=== PATIENT | male | born 1980 | race Hispanic/Latino ===

== ENCOUNTER 2019-04-21 11:50 | Inpatient (IN) | payer BC | END 2019-04-23 13:09 | disposition home or self-care (01) | LOC: EDH 11:50 → EDHIP 15:10 → 2AH 17:38 ==

== ENCOUNTER 2019-05-27 16:35 | Emergency (ER) | payer BC ==
[~2019-05-27 16:35] MED LIST: AMLO5TAB9 PO; ATOR40TA69 PO; Aspirin PO; HYDR25TA PO; LISI-613 PO; LOSA50TA64 PO; METH4TAB3 PO; Prasugrel Hcl PO
[2019-05-27] MEDS ORDERED: FAMOTIDINE 20MG TAB 20 MG TAB ONE (16:56)
[2019-05-27] MEDS ORDERED: DEXAMETHASONE SOD PHOSPHATE 10MG/ML 1ML VIAL ONE (16:56)
[2019-05-27] MEDS ORDERED: DIPHENHYDRAMINE HCL 25 MG CAPSULE ONE (16:57)
== END 2019-05-27 18:00 | disposition home or self-care (01) ==
LOC: EDH 16:35
DX: T78.3XXA Angioneurotic edema, initial encounter (principal); L40.9 Psoriasis, unspecified; I10 Essential (primary) hypertension; Z72.0 Tobacco use
CPT/HCPCS: 96372; 99284; J1100; Q0163

== ENCOUNTER 2022-12-14 09:15 | Emergency (ER) | payer BC ==
[~2022-12-14] VITALS: Ht 182.9 cm; Wt 129.3 kg
[~2022-12-14 09:15] MED LIST changes: +AMLO-257 PO; -AMLO5TAB9 PO; -LISI-613 PO; +LISI20TA24 PO
[2022-12-14 09:16] VITALS: BP 167/103
[2022-12-14 09:42] LABS: AMPHET/METH SCREEN,URINE NEGATIVE (NEGATIVE); BARBITURATE SCREEN, URINE NEGATIVE (NEGATIVE); BENZODIAZEPINES SCREEN,URINE NEGATIVE (NEGATIVE); CANNABINOID SCREEN,URINE NEGATIVE (NEGATIVE); COCAINE SCREEN,URINE POSITIVE (NEGATIVE); OPIATE SCREEN,URINE NEGATIVE (NEGATIVE); PHENCYCLIDINE SCREEN,URINE NEGATIVE (NEGATIVE)
[2022-12-14 09:52] LABS: BASOPHILS % (AUTO) 0.9 % (0.0-5.0); EOSINOPHILS % (AUTO) 0.8 % (0.0-8.0); HEMATOCRIT 46.2 % (42-54); LYMPHOCYTES % (AUTO) 20.3 % (21.0-51.0); MEAN CORPUSCULAR HEMOGLOBIN 32.3 pg (27.0-33.0); MEAN CORPUSCULAR HGB CONC 35.9 g/dL (32.0-36.0); MEAN CORPUSCULAR VOLUME 89.9 fL (79-99); MONOCYTES % (AUTO) 9.2 % (3.0-13.0); NEUTROPHILS % (AUTO) 68.5 % (40.0-77.0); PLATELET COUNT (AUTO) 271 K/uL (130-400); RED BLOOD CELL COUNT(AUTO) 5.14 MIL/uL (4.50-6.20); RED CELL DISTRIBUTION WIDTH 11.9 % (11.0-15.5); WHITE BLOOD COUNT (AUTO) 9.5 K/uL (4.8-10.8)
[2022-12-14] MEDS ORDERED: LORAZEPAM 2 MG/ML 1 ML VIAL IVP STA (09:54)
[2022-12-14] MEDS ORDERED: ASPIRIN 81MG CHEW TAB PO STA (09:59)
[2022-12-14 10:08] LABS: CREATININE 0.7 mg/dL (0.5-1.5); POTASSIUM 3.2 mmol/L (3.5-5.1)
[2022-12-14 10:14] LABS: ALBUMIN 3.1 g/dL (3.5-5.0); TOTAL PROTEIN, SERUM 8.1 g/dL (6.0-8.3)
[2022-12-14] MEDS ORDERED: TAMS-1 PO (12:02)
[2022-12-14] MEDS ORDERED: KETO10TA2 PO (12:02)
== END 2022-12-14 12:23 | disposition home or self-care (01) ==
LOC: EDH 09:15
DX: N20.0 Calculus of kidney (principal); F14.10 Cocaine abuse, uncomplicated; Z98.890 Other specified postprocedural states; Z79.899 Other long term (current) drug therapy; Z79.82 Long term (current) use of aspirin
CPT/HCPCS: 99284; 74176; 96374; 71045; 82550; 84484; 80053; 80305; 85025; 36415; 93005; J2060

== ENCOUNTER 2025-01-04 21:53 | Inpatient (IN) | payer SELFPAY ==
[~2025-01-04] VITALS: Ht 180.3 cm; Wt 112.8 kg
[~2025-01-04 21:53] MED LIST changes: +KETO10TA2 PO; +TAMS-1 PO
--- NOTE | 2025-01-04 23:11 | ERN ---
ED Note History of Present Illness Stated Complaint: CHEST PAIN,MULTIPLE COMPLAINTS Chief Complaint: Weakness Time Seen by MD: 22:23 Dictation: This is a 44-year-old morbidly obese male who presented to the emergency room complaints of severe body aches nausea vomitings diarrhea and extreme weakness to the point of him unable to even get up. Most of the symptoms have been going on since last which is about 6 days He normally drinks 5 days out of 7 days heavily and he stated that he has not been able to drink alcohol or eat anything. He has just been trying to drink only water During my evaluation he was extremely sick appearing and unable to even pick himself up to move His vital signs upon entry to the ER temperature 98 pulse 118 respirations 17 blood pressure 113/82 with a pulse oximetry of 99% on room air however patient did spike a temp of 101 at 12:37 a.m. Known history of coronary artery disease status post stents, heavy alcohol abuse also cocaine abuse Allergies: Coded Allergies: No Known Drug Allergies (Unverified Allergy, Unknown, 12/18/15) Home Meds Active Scripts Tamsulosin HCl (Flomax) 0.4 Mg Cap.er.24h, 0.4 MG PO DAILY for 7 Days, #7 CAPSULE.DR Prov:HEBER LEI MD 12/14/22 Ketorolac Tromethamine (Ketorolac Tromethamine) 10 Mg Tablet, 10 MG PO TID PRN for PAIN for 7 Days, #21 TAB Prov:HEBER LEI MD 12/14/22 Methylprednisolone (Medrol) 4 Mg Tab.ds.pk, 4 MG PO AD for 5 Days, MG 0 Refills Prov:JUAN MCBRIDE 04/23/19 Hydrochlorothiazide (Hydrochlorothiazide) 25 Mg Tablet, 25 MG PO DAILY for 30 Days, #30 TAB 0 Refills Prov:JUAN MCBRIDE 04/23/19 Losartan Potassium (Losartan Potassium) 50 Mg Tablet, 50 MG PO DAILY for 30 Days, #30 TAB 0 Refills Prov:JUAN MCBRIDE 04/23/19 Amlodipine Besylate (Amlodipine Besylate) 5 Mg Tablet, 5 MG PO DAILY for 30 Days, #30 TAB 0 Refills Prov:JUAN MCBRIDEPCDU 04/23/19 [Prasugrel Hcl] 10 MG TABLET No Conflict Check, 10 MG PO DAILY, #30 3 Refills Prov:KARMA LUNDBERG MD 12/20/15 Lisinopril (Lisinopril) 20 Mg Tablet, 20 MG PO DAILY, #30 TAB 3 Refills Prov:KARMA LUNDBERG MD 12/20/15 [Aspirin] 325 MG TABLET No Conflict Check, 325 MG PO DAILY, #30 3 Refills Prov:KARMA LUNDBERG MD 12/20/15 Atorvastatin Calcium (LIPITOR) 40 Mg Tablet, 40 MG PO HS, #30 TAB 2 Refills Prov:KARMA LUNDBERG MD 12/20/15 Past Medical History Past Medical History: CAD Surgical History: Other Surgical History Other: HEART STENT FOR CAD Family History: Negative Social History: Drugs, ETOH RN Note Reviewed/Agreed w/PFSH: Yes Review of System Dictation Constitutional: Negative for fever,chills, and weight loss profound weakness and asthenia Eyes: Negative for injury, pain,redness, and discharge ENT: Negative for injury,pain or swelling Cardiovascular: Positive for chest pain, denies palpitations, and edema Respiratory: Negative for shortness of breath, cough, and wheezing, Abdomen/GI: Positive for abdominal pain, nausea, vomiting, diarrhea, Back: Negative for injury and pain : Negative for injury, bleeding and discharge MS/Extremity: Negative for injury and deformity Skin: Negative for rash, and discoloration Neuro: Negative for headache, weakness, numbness, tingling, and seizure Psych: Negative for suicide ideation, homicidal ideation, and hallucinations Initial Vital Sign VS Vital Signs Date Time Temp Pulse Resp B/P (MAP) Pulse Ox O2 Delivery O2 Flow Rate FiO2 01/04/25 22:28 98.8 118 17 113/82 99 Room Air 0 01/05/25 00:17 21 Physical Exam Dictation General: awake, alert, NAD very obese extremely weak Head/Face: Normocephalic, atraumatic Eyes: PERRL, EOMI, vision at baseline ENT: oral cavity clear, TMs clear, no signs of infection mucous membranes dry Neck: Trachea midline, supple, no nuchal rigidity Cardiovascular: RRR, normal S1/S2, No MRGs, no JVD Respiratory: CTAB, no respiratory distress, No rales or wheezes Abdomen: Soft, non-tender, non-distended, normal bowel sounds, no guarding or rebound. Skin: Warm, dry, normal turgor, no rash MS/Extremity: Pulses equal, no cyanosis, neurovascular intact, FROM Neuro: COAx4, GCS 15, strength 5/5, CN 2-12 intact, normal cerebellar exam, normal gait, Psych: Normal behavior, mood, and affect normal Extremities-trace edema without any palpable cords, Homans sign is negative Results (Laboratory/Radiology) Laboratory/Radiology Laboratory Tests Test 01/04/25 22:56 01/04/25 23:22 01/04/25 23:35 01/04/25 23:37 Sodium Level 117 mmol/L (136-145) L Potassium Level 2.6 mmol/L (3.5-5.1) *L Chloride Level 80 mmol/L (101-111) *L Carbon Dioxide Level 21 mmol/L (21-32) Blood Urea Nitrogen 57 mg/dL (7-18) H Creatinine 2.8 mg/dL (0.5-1.3) H Glomerular Filtration Rate Calc 28 mL/min (>90) Random Glucose 361 mg/dL (70-105) H Total Calcium 6.9 mg/dL (8.5-10.1) L Total Creatine Kinase 195 U/L (21-232) # Troponin I High Sensitivity 195 ng/L (4-75) *H B-Type Natriuretic Peptide 135 pg/mL (0-100) H White Blood Count 16.4 K/uL (4.8-10.8) H Red Blood Count 4.99 MIL/uL (4.50-6.20) Hemoglobin 16.3 g/dL (14.0-18.0) Hematocrit 43.8 % (42-54) Mean Corpuscular Volume 87.8 fL (79-99) Mean Corpuscular Hemoglobin 32.7 pg (27.0-33.0) Mean Corpuscular Hemoglobin Concent 37.2 g/dL (32.0-36.0) H Red Cell Distribution Width 12.6 % (11.0-15.5) Platelet Count 30 K/uL (130-400) L Mean Platelet Volume fL (7.5-10.5) Immature Granulocyte % (Auto) 1.3 % (0-1) H Neutrophils (%) (Auto) 86.8 % (40.0-77.0) H Lymphocytes (%) (Auto) 3.3 % (21.0-51.0) L Monocytes (%) (Auto) 7.8 % (3.0-13.0) Eosinophils (%) (Auto) 0.1 % (0.0-8.0) Basophils (%) (Auto) 0.7 % (0.0-5.0) Neutrophils # (Auto) 14.2 K/uL (1.8-7.7) H Lymphocytes # (Auto) 0.5 K/uL (1.0-4.8) L Monocytes # (Auto) 1.3 K/uL (0.1-1.0) H Eosinophils # (Auto) 0.01 K/uL (0.00-0.70) Basophils # (Auto) 0.12 K/uL (0.00-0.20) Absolute Immature Granulocyte (auto 0.21 K/uL (0-1) Nucleated Red Blood Cells 0.0 % (0.0-0.19) Urine Color DARK-ORANGE (YELLOW) Urine Appearance TURBID (CLEAR) Urine pH 5.5 (5.0-8.0) Urine Specific [place] 1.016 (1.001-1.031) Urine Protein 100 mg/dL (NEGATIVE) H Urine Glucose (UA) 300 mg/dL (NEGATIVE) H Urine Ketones NEGATIVE mg/dL (NEGATIVE) Urine Occult Blood LARGE (NEGATIVE) H Urine Nitrate NEGATIVE (NEGATIVE) Urine Bilirubin 1 mg/dL (NEGATIVE) H Urine Urobilinogen 12 mg/dL (0.2-1.0) H Urine Leukocyte Esterase 500 Charlie/uL (NEGATIVE) H Urine RBC 11-25 /HPF (0-1) H Urine WBC TNTC /HPF (0-1) H Urine WBC Clumps (Auto) MANY /HPF (0-1) Urine Squamous Epithelial Cells RARE /HPF (0-2) Urine Amorphous Crystals (Auto) RARE /LPF (None Seen) Urine Bacteria MANY /HPF (None Seen) Urine Yeast with Hyphae RARE /HPF (None Seen) Urine Random Creatinine 177.96 mg/dL (30-135) H Urine Random Sodium 15 mmol/l (40-220) L Urine Opiates Screen NEGATIVE (NEGATIVE) Urine Barbiturates Screen NEGATIVE (NEGATIVE) Urine Phencyclidine Screen NEGATIVE (NEGATIVE) Urine Amphetamines Screen NEGATIVE (NEGATIVE) Urine Benzodiazepines Screen NEGATIVE (NEGATIVE) Urine Cocaine Screen POSITIVE (NEGATIVE) H Urine Marijuana (THC) Screen NEGATIVE (NEGATIVE) Influenza Type A Antigen Negative For Type A Influenza Type B Antigen Negative For Type B SARS-CoV-2 Antigen (Rapid) PRESUMPTIVE NEGATIVE Group A Streptococcus Rapid positive (NEGATIVE) *A Test 01/05/25 00:40 Whole Blood Ketones Quantitative 0.5 mmol/L (0.0-0.6) Lactic Acid Level 3.9 mmol/L (0.8-2.5) H Labs Reviewed?: Yes EKG Comment: Twelve lead EKG done on 01/04/2025 at 10:14 p.m. showed a heart rate of 114, [place] interval 192, QRS 97, QT/QTC 343/474 Impression sinus tachycardia with Q-waves in the inferior leads suggestive of an inferior infarcts with indeterminate age and patient also has nonspecific STT wave changes in the entire anterior and septal leads. No acute ST elevations or deep ST depressions noted Interpreted by Dr. Carbone X-RAY Comment: Chest x-ray portable done in the emergency room- Shows a cardiomegaly with mild prominence of the interstitial markings but no pleural effusions, no focal infiltrate noted. Interpreted by Dr. Carbone ED Course ED Course Orders Procedure Category Date Status Time B-Type Natriuretic LAB 01/04/25 Complete Peptide 22:39 Chest 1vw RAD 01/04/25 Taken 22:39 12 Lead Ekg Tracing- EKG 01/04/25 Logged Technical 22:39 0.9%Nacl 1000ml (Ns PHA 01/04/25 In Process 1000ml) 23:00 Aspirin 81mg Chew Tab PHA 01/04/25 Complete (Aspirin 81mg Chew 23:00 Ondansetron 4mg Inj PHA 01/04/25 Complete (Zofran 4mg Inj) 23:00 Creatine Kinase, Total LAB 01/04/25 Complete 22:39 Troponin I High LAB 01/04/25 Complete Sensitivity 22:39 Urinalysis Profile LAB 01/04/25 Complete 22:39 Troponin Poc Order LAB 01/04/25 Complete Only 22:39 Basic Metabolic Panel LAB 01/04/25 Complete 22:39 Influenza Type A & B, LAB 01/04/25 Complete Rapid 22:39 Covid19 (Sars Antigen LAB 01/04/25 Complete Rapid) 22:39 Rapid (Group A Strep) LAB 01/04/25 Complete 22:39 Cbc With Differential LAB 01/04/25 In Process 23:30 Culture Urine SYLVIA 01/04/25 In Process 23:49 Potassium Chloride PHA 01/05/25 In Process 20meq/100ml ([place] 00:00 Potassium Chloride PHA 01/05/25 In Process 20meq/100ml ([place] 00:00 Ketone Blood LAB 01/04/25 In Process Quantitative 23:48 Phosphorus LAB 01/04/25 In Process 23:48 Magnesium LAB 01/04/25 In Process 23:48 Urine Sodium,Random LAB 01/04/25 Complete 23:48 Urine Creatinine LAB 01/04/25 Complete Random 23:48 Osmolality Serum LAB 01/04/25 In Process 23:48 Osmolality Urine LAB 01/04/25 In Process 23:48 Thyroid Stimulating LAB 01/04/25 In Process Hormone 23:48 Thiamine Hcl (Vitamin PHA 01/05/25 Complete B-1) 00:00 Lactic Acid LAB 01/05/25 Complete 00:25 Blood Cult SYLVIA 01/05/25 In Process 00:25 Acetaminophen 500mg PHA 01/05/25 Complete Tab (Tylenol 500mg T 00:28 Cefepime Hcl 1 Gm PHA 01/05/25 Complete Vial (Maxipime 1 Gm Vi 01:00 Vancomycin 750mg PHA 01/05/25 Complete (Vancomycin 750mg) 01:00 0.9% Nacl 250ml (Ns PHA 01/05/25 Complete 250ml) 01:00 Drug Screen Urine LAB 01/05/25 Complete 00:40 Ct Abdomen/Pelvis W/O CT 01/05/25 Logged Contrast 00:48 Acetaminophen 500mg PHA 01/05/25 Complete Tab (Tylenol 500mg T 01:00 Edm Admit Bridge Order ADM 01/05/25 Transmitted 01:07 Admit Orders ADM 01/05/25 Transmitted 01:07 Current Medications Medications (Trade) Dose Ordered Sig/Asya Route PRN Reason Start Time Stop Time Status Last Admin Dose Admin Acetaminophen (TYLenol 500MG TAB) 500 mg STK-MED ONCE .ROUTE 01/05/25 00:28 01/05/25 00:28 DC Acetaminophen (TYLenol 500MG TAB) 1,000 mg ONCE ONCE PO 01/05/25 01:00 01/05/25 01:02 DC 01/05/25 00:30 Aspirin (Aspirin 81mg Chew Tab) 81 mg ONCE ONCE PO 01/04/25 23:00 01/04/25 23:01 DC 01/05/25 00:14 Cefepime HCl (MAXipime 1 GM vial) 1 gm ONCE ONCE IVPB 01/05/25 01:00 01/05/25 01:02 DC 01/05/25 01:01 Ondansetron HCl (zoFRAN 4MG INJ) 4 mg ONCE ONCE IVP 01/04/25 23:00 01/04/25 23:01 DC 01/05/25 00:13 Potassium Chloride 100 ml @ 50 mls/hr ONCE ONCE IV 01/05/25 00:00 01/05/25 01:59 01/05/25 00:13 Potassium Chloride 100 ml @ 50 mls/hr ONCE ONCE IV 01/05/25 00:00 01/05/25 01:59 Sodium Chloride 1,000 ml @ 125 mls/hr ONCE ONCE IV 01/04/25 23:00 01/05/25 06:59 01/05/25 00:13 Sodium Chloride (NS 250ml) 250 ml ONCE ONCE IVPB 01/05/25 01:00 01/05/25 01:02 DC Thiamine HCl (Vitamin B-1) 100 mg ONCE ONCE IVP 01/05/25 00:00 01/05/25 00:01 DC 01/05/25 01:01 Vancomycin HCl (Vancomycin 750mg) 750 mg ONCE ONCE IVPB 01/05/25 01:00 01/05/25 01:02 DC Vital Signs Date Time Temp Pulse Resp B/P (MAP) Pulse Ox O2 Delivery O2 Flow Rate FiO2 01/05/25 00:30 102.0 01/05/25 00:17 102.0 118 26 129/82 100 Room Air* 0 21 01/04/25 22:28 98.8 118 17 113/82 99 Room Air 0 We will perform diagnostic labs, advanced imaging and administer medications according to the patient's complaint. Once the results are available, will review and personally interpreted the labs to rule out any acute life- threatening emergency the trach require immediate intervention and treatment. I will then re-evaluate the patient after treatment and diagnostic exams have return to determine whether the patient requires any further testing, can safely be discharged home or need further admission to hospital for additional treatment and evaluation. Labs reviewed CBC showed a white count of 16.4 platelets 02713. BNP 7 showed a sodium of 117 potassium of 2.6 chloride 80 and BUN and creatinine are 57 and 2.8. Glucose 361 elevated troponin 12:37 a.m.-sepsis alert was called when patient has spiked a temp to 102 12:45 a.m. urinalysis is very abnormal with increased number of WBCs too numerous to count and leuko esterase positive Patient also has group a strep rapid screen positive. I suspect possibly a nephrolithiasis with hydronephrosis as a source of his severe sepsis-we will request a CT scan of the abdomen and pelvis to better evaluate for hydronephrosis. I went over the available information with the patient and son-in-law at bedside. And recommended admission to the intensive care unit for further management. They are agreeable 1:00 a.m. patient has been accepted by Feliz Munoz, mid-level provider for hospitalist group to be admitted to Dr. Summers Patient will be admitted to the intensive care unit with serial q.4 Bmp 7 to follow sodium levels closely. After this current IV fluid hydration, the goal of sodium correction would be maximum 6-8 mEq in [address] scan of the abdomen and pelvis is pending at this time-needs follow up to see if any hydronephrosis/pyelo or diverticulitis TSH is also pending along with urine studies and serum osmolality. Medical Decision Making MDM MDM: Differential diagnosis: Gastroenteritis, diverticulitis, enterocolitis, pyelonephritis, prostatitis, influenza Rationale: Tests considered and ordered secondary to shared decision making include: labs, ECG and radiology Previous outside records reviewed: Old ER visits. Risk of complication and/or morbidity or mortality of patient management: None Medications-Per medication reconciliation Need for hospitalization: Patient does meet criteria for hospitalization. Need for emergency major/minor surgery: No There are no social concerns with this patient. Prescription drug management Prescriptions will include symptomatic care Patient's prior external medical records from other ER visits were reviewed by me as indicated. Prior testing and results from previous visits were reviewed. Prior tests were taken into account with medical decision making and resource utilization, independent historian/historians were used to obtain complete medical history. I independently interpreted the test that were performed, results were reviewed by me and considered findings on radiology if ordered. Medical management and examination interpretation discussions were had by me with other qualified healthcare professionals as indicated for the patient's care. Problem List Problem List: (1) Sepsis (2) UTI (urinary tract infection) (3) Acute renal failure (4) Hyponatremia (5) Hypokalemia (6) Uncontrolled diabetes mellitus with hyperglycemia (7) Thrombocytopenia (8) Leukocytosis (9) Alcohol abuse (10) Cocaine abuse Critical Care Note Critical Time: 45 minutes Comment(s) Life-threatening illness; severe sepsis likely related to UTI, acute renal failure severe hyponatremia, heavy alcoholism Risk of morbidity mortality-high Complexity of medical decision making-high (X) high probability of sudden clinically significant deterioration in the patient's condition required the highest level of my preparedness to intervene urgently. I provided critical care services requiring my direct and personal management as noted below; (x) chart data review (x) reviewing nurse's notes and/charts (x) documentation time (x) consultation collaboration on findings and therapy options (x) medication orders and management (x) re-evaluations (x) care, transfer of care, and discharge plans (x) ordering and interpreting studies (x) ordering and reviewing labs (x) obtaining necessary history from family, EMS, mcc, private MD, surrogate decision makers because patient was unable to give history due to limitations in the mental status (x) aggregate critical care time was ( ) minutes. This includes only time during which I was engaged in work directly related to the patient's care as described above whether at the bedside or elsewhere in the ER while the patient was critical. My time did not include minutes spent treating any other patients simultaneously or on activities that did not directly contribute to the patient's treatment. It did not include time spent performing other reported procedures or services of residents if any. Haley Carbone MDFCCP DX & DISP Disposition: Inpatient Decision to Admit Time: 00:44 Departure Impression: Primary Impression: Sepsis Additional Impressions: UTI (urinary tract infection), Acute renal failure, Hyponatremia, Hypokalemia, Uncontrolled diabetes mellitus with hyperglycemia, Thrombocytopenia, Leukocytosis, Alcohol abuse, Cocaine abuse, Lactic acidosis Condition: Stable Additional Instructions: Patient was informed of all the diagnostic labs and procedures conducted in the emergency room today and demonstrated understanding of the results. I personally reviewed and interpreted all the diagnostic exams performed in the ER today. The patient will be admitted to the hospital for further treatment and evaluation. Disposition-admit to facility Condition-stable/guarded Course-uncertain at this time Pain status-decreased Assessment-exam unchanged Admission Certification- I certify that the patients status is appropriate and is based on my best clinical judgment and the patient's condition as documented in the medical records Referrals: SELF,REFERRAL (PCP) HALEY CARBONE MD Jan 04, 2025 23:10
[2025-01-04 23:28] LABS: CREATININE 2.8 mg/dL (0.5-1.3)
[2025-01-04 23:39] LABS: POTASSIUM 2.6 mmol/L (3.5-5.1)
[2025-01-04 23:46] LABS: APPEARANCE,URINE TURBID (CLEAR); BILIRUBIN,URINE 1 mg/dL (NEGATIVE); COLOR,URINE DARK-ORANGE (YELLOW); GLUCOSE, URINE (UA) 300 mg/dL (NEGATIVE); KETONES,URINE NEGATIVE (NEGATIVE); LEUKOCYTE ESTERASE ,URINE 500 Leu/uL (NEGATIVE); NITRATE,URINE NEGATIVE (NEGATIVE); OCCULT BLOOD,URINE LARGE (NEGATIVE); PH,URINE 5.5 (5.0-8.0); PROTEIN,URINE 100 mg/dL (NEGATIVE); UROBILINOGEN,URINE 12 mg/dL (0.2-1.0)
[2025-01-04 23:49] LABS: ADD UA MICROSCOPIC YES
--- NOTE | 2025-01-04 23:50 | NUR ---
ASSUMED PT CARE AT THIS TIME
[2025-01-04 23:51] LABS: BASOPHILS # (AUTO) 0.12 K/uL (0.00-0.20); BASOPHILS % (AUTO) 0.7 % (0.0-5.0); EOSINOPHILS # (AUTO) 0.01 K/uL (0.00-0.70); EOSINOPHILS % (AUTO) 0.1 % (0.0-8.0); HEMATOCRIT 43.8 % (42-54); IMMATURE GRANULOCYTE ABSOLUTE 0.21 K/uL (0-1); LYMPHOCYTES # (AUTO) 0.5 K/uL (1.0-4.8); LYMPHOCYTES % (AUTO) 3.3 % (21.0-51.0); MEAN CORPUSCULAR HEMOGLOBIN 32.7 pg (27.0-33.0); MEAN CORPUSCULAR HGB CONC 37.2 g/dL (32.0-36.0); MEAN CORPUSCULAR VOLUME 87.8 fL (79-99); MONOCYTES # (AUTO) 1.3 K/uL (0.1-1.0); MONOCYTES % (AUTO) 7.8 % (3.0-13.0); NEUTROPHILS # (AUTO) 14.2 K/uL (1.8-7.7); NEUTROPHILS % (AUTO) 86.8 % (40.0-77.0); RED BLOOD CELL COUNT(AUTO) 4.99 MIL/uL (4.50-6.20); RED CELL DISTRIBUTION WIDTH 12.6 % (11.0-15.5); WHITE BLOOD COUNT (AUTO) 16.4 K/uL (4.8-10.8)
[2025-01-04 23:53] LABS: PLATELET COUNT (AUTO) 30 K/uL (130-400)
[2025-01-04 23:58] LABS: BACTERIA,URINE MANY /HPF (None Seen); SQUAMOUS EPITHELIAL CELL,UR RARE /HPF (0-2); WBC CLUMP MANY /HPF (0-1); WBC,URINE TNTC /HPF (0-1); YEAST,URINE HYPHAE RARE /HPF (None Seen)
[2025-01-05 00:11] LABS: RAPID GROUP A STREP positive (NEGATIVE)
[2025-01-05] MEDS: 0.9%NACL 1000ML 1,000 ML IV ONE (00:13)
[2025-01-05] MEDS: PoTASSium chloRIDE 20MEQ/100ML 100 ML IV ONE ×3 (00:13→10:25)
[2025-01-05] MEDS: ondanSETRON 4MG INJ IVP ONE (00:13)
[2025-01-05] MEDS: ASPIRIN 81MG CHEW TAB PO ONE ×2 (00:14→03:06)
[2025-01-05 00:26] LABS: COVID19 (SARS ANTIGEN RAPID) PRESUMPTIVE NEGATIVE (NEGATIVE); INFLUENZA TYPE A Negative For Type A (NEGATIVE); INFLUENZA TYPE B Negative For Type B (NEGATIVE)
[2025-01-05] MEDS: acetaMINOPHEN 500 MG TABLET PO ONE (00:30)
[2025-01-05 01:01] LABS: CREATININE,URINE RANDOM 177.96 mg/dL (30-135)
[2025-01-05] MEDS: THIAMINE HCL 100 MG/ML 2ML VIAL IVP ONE (01:01)
[2025-01-05] MEDS: ceFEPime HCL 1 GM VIAL IVPB ONE (01:01)
[2025-01-05] MEDS: acetaMINOPHEN 500 MG TABLET ONE (01:02)
[2025-01-05 01:05] LABS: AMPHET/METH SCREEN,URINE NEGATIVE (NEGATIVE); BARBITURATE SCREEN, URINE NEGATIVE (NEGATIVE); BENZODIAZEPINES SCREEN,URINE NEGATIVE (NEGATIVE); CANNABINOID SCREEN,URINE NEGATIVE (NEGATIVE); COCAINE SCREEN,URINE POSITIVE (NEGATIVE); OPIATE SCREEN,URINE NEGATIVE (NEGATIVE); PHENCYCLIDINE SCREEN,URINE NEGATIVE (NEGATIVE)
[2025-01-05 01:25] LABS: MAGNESIUM 1.7 mg/dL (1.80-2.40); PHOSPHORUS 1.9 mg/dL (2.5-4.9); THYROID STIMULATING HORMONE 0.39 uIU/mL (0.36-3.74)
[2025-01-05 01:30] VITALS: TEMP 101.6
--- NOTE | 2025-01-05 01:48 | HMCIMG ---
CT ABDOMEN/PELVIS W/O CONTRAST HISTORY: UTI COMPARISON: 12/14/2022 TECHNIQUE: Multiple sequential axial images of the abdomen and pelvis were obtained from the dome of the diaphragm through symphysis pubis. Patient was not given contrast through intravenous route. Oral contrast was not given. FINDINGS: No pleural effusion is seen bilaterally. There is no evidence of parenchymal disease or pulmonary nodule of the visualized lower lungs. Degenerative changes of the thoracolumbar spine are present. The heart is not enlarged. Liver is enlarged with fatty changes measuring 21 cm. A small hiatal hernia is seen. Gallstones are seen in the gallbladder. Nonspecific bilateral perinephric fat stranding is seen. If there is clinical suspicion for pyelonephritis, urinalysis correlation may be helpful. The liver, spleen, adrenal glands and pancreas are unremarkable. There is no evidence of hydronephrosis bilaterally. No evidence of renal stone is seen. Fecal material is seen in the colon. There are normal size retroperitoneal and mesenteric lymph nodes. No ascites is seen. No CT evidence of acute appendicitis is seen. Pelvic sidewalls are symmetric bilaterally. Bladder is moderately distended. IMPRESSION: 1. Gallstones in the gallbladder. If there is clinical suspicion for pyelonephritis, urinalysis correlation may be helpful. CT was performed with one or more following dose reduction techniques: automated exposure control, adjustment of the mA and kv according to patient's size, or use of a iterative reconstruction technique.
[2025-01-05] MEDS: 0.9% NACL 250ML IVPB ONE (02:12)
[2025-01-05] MEDS: VANCOMYCIN 750MG VIAL IVPB ONE (02:12)
[2025-01-05] MEDS: LACTATED RINGERS 1000ML 1,000 ML IV SCH (02:30)
[2025-01-05] MEDS ORDERED: PHARMACY COMMUNICATION MISC PRN (02:30)
[2025-01-05] MEDS ORDERED: hydrALAZine 20MG/ML VIAL IV PRN (02:30)
[2025-01-05] MEDS ORDERED: PoTASSium chloRIDE 10MEQ/100ML 100 ML IV PRN (02:30)
[2025-01-05] MEDS ORDERED: LORazepam 2 MG/ML 1 ML VIAL IVP PRN (02:30)
[2025-01-05] MEDS ORDERED: morPHINE 2 MG SYG IVP PRN (02:30)
[2025-01-05] MEDS ORDERED: ondanSETRON 4MG INJ IV PRN (02:30)
[2025-01-05] MEDS ORDERED: BENZOCAINE/MENTH/CETYLPYRD CL 1 EACH LOZENGE MM PRN (02:30)
[2025-01-05] MEDS ORDERED: NITROGLYCERIN 0.4 MG SL TAB SL PRN (02:30)
--- NOTE | 2025-01-05 02:32 | HP ---
History of Present Illness Reason for Visit: weakness Referring MD: self History of Present Illness Mr. Jin is a 44-year-old male that was seen and examined today on 01/05/2025. Patient is a good historian and personal health. Patient is a good historian and personal health. Patient states that he came to the emergency department at the behest of his daughter. Patient's chief complaint is weakness. Onset was Thursday12/30/2024. Location is to entire body. Duration is constant. Character is described as, " today Oiron needed help to get out of the sofa and out of the shower. I also fell down once. "There was no alleviating factors. Symptoms are aggravated with physical activity. Patient denies any associated chest pain or shortness and breath. Today in the emergency department WBCs 16.4, left shift neutrophils 86 0.8 %, platelets 30, sodium 117, corrected sodium 123, potassium 2.6, BUN 57, creatinine 2.8, glucose 361, lactic acid 3.9, troponin 195, magnesium 1.7, urinalysis positive for leukocyte esterase and WBCs too many to count per high-powered microscopy field. Urine toxicology positive for cocaine. Rapid strep antigen test positive for strep a. Additionally patient patient had a temperature of 102.0 in the emergency department, heart rate 118, respirations 26 and identified source of infection being both urine and throat met clinical sepsis criteria. CT of abdomen and pelvis showed fatty liver, suspected pyelonephritis. Emergency room physician recommended that patient be admitted with a diagnosis of severe sepsis. Past Medical History Patient History: Patient reports no known family medical history. ADDITIONAL PAST MEDICAL HISTORY: [Denies any past medical history, fatty liver by CT on 01/05/2025] SOCIAL HISTORY: [Patient smokes one pack of cigarettes daily but only5 times a week. Patient [id number] beers daily but also only5 times a week. Patient reports occasional use of both marijuana and cocaine. Patient denies any other illegal drug use. 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 Patient has poor access to health care due to lack of health insurance. Patient is typically independent of all his ADLs. Patient denies difficulty pain is bills. Patient lives with his daughter Hannah Jin] SURGICAL HISTORY: [Heart stent] Review of Systems General: No Fever, No Chills, No Night Sweats, No Fatigue, No Malaise, No Appetite, No Other HEENT: No Head Aches, No Visual Changes, No Eye Pain, No Ear Pain, No Dysphasia, No Sinus Congestion, No Post Nasal Drip, No Sore Throat, No Other Pulmonary: No Dyspnea, No Cough, No Pleuritic Chest Pain, No Other Cardiovascular: No: Chest Pain, Palpitations, Orthopnea, Paroxysmal Noc. Dyspnea, Edema, Lt Headedness, Other Gastrointestinal: No: Nausea, Vomiting, Abdominal Pain, Diarrhea, Constipation, Melena, Hematochezia, Other Genitourinary: No Dysuria, No Frequency, No Incontinence, No Hematuria, No Retention, No Other Musculoskeletal: No: other, neck pain, shoulder pain, arm pain, back pain, hand pain, leg pain, foot pain Skin: No Urticaria, No Rash, No Other Neurological: Weakness; No: Numbness, Incoordination, Change in speech, Confusion, Seizures, Other Allergies: Coded Allergies: No Known Drug Allergies (Unverified Allergy, Unknown, 12/18/15) Scheduled Amlodipine Besylate (Amlodipine Besylate), 5 MG PO DAILY Atorvastatin Calcium (Lipitor), 40 MG PO HS Hydrochlorothiazide (Hydrochlorothiazide), 25 MG PO DAILY Lisinopril (Lisinopril), 20 MG PO DAILY Losartan Potassium (Losartan Potassium), 50 MG PO DAILY Methylprednisolone (Medrol), 4 MG PO AD Tamsulosin HCl (Flomax), 0.4 MG PO DAILY [Aspirin], 325 MG PO DAILY [Prasugrel Hcl], 10 MG PO DAILY Scheduled PRN Ketorolac Tromethamine (Ketorolac Tromethamine), 10 MG PO TID PRN for PAIN Exam Vital Signs Vital Signs Date Time Temp Pulse Resp B/P (MAP) Pulse Ox O2 Delivery O2 Flow Rate FiO2 01/05/25 00:30 102.0 01/05/25 00:17 118 26 129/82 100 Room Air* 0 21 General Appearance: Alert, Oriented X3, Cooperative, moderate distress HEENT: Atraumatic, PERRLA, EOMI, Other (Mucous membranes dry and cracked) Respiratory: Clear to auscultation, Normal air movement, NL respiratory effort Cardiovascular: Normal S1, Normal S2, Other (Tachycardia) Abdominal: Normal bowel sounds, Soft, No tenderness Extremities: No edema Skin: No significant lesion Neuro: Normal gait, Normal speech, Strength at 5/5 X4 ext, Sensation intact, Cranial nerves 3-12 NL Psych/Mental Status: Mental status NL, Mood NL, Thoughts/Content NL Assessment/Plan ASSESSMENT: [ Severe sepsis, POA Urinary tract infection, POA Strep pharyngitis, POA Leukocytosis, POA Hyperlactatemia, POA Acute kidney injury, POA Hypokalemia, POA Hyponatremia, POA Hypomagnesemia, POA Thrombocytopenia, POA New onset Uncontrolled Diabetes mellitius type2, POA Elevated troponin, POA Substance abuse, POA, cocaine Alcohol dependence, POA Tobacco dependence, POA PLAN: [ Admit patient to intensive care unit as inpatient status. Place patient on telemetry monitoring. Patient will be followed by critical care team. Fluid resuscitation with lactated Ringer's 30 mL/kg. Empiric antibiotic therapy with Zosyn. Check blood culture, follow up with the results Check urine culture, follow up with the results Check procalcitonin, follow up with the results. Repeat lactic acid in a.m.. Calculate FENA Check urine sodium, creatinine, osmolality Avoid nephrotoxic agents when possible Renally dose all medications when possible Consult Nephrology Service, Dr. Tate for evaluation and recommendations Monitor patient's labs. Weight patient daily. Monitor intake and output. IV fluid maintenance therapy lactated Ringer's at 100 mL/HR Replace potassium per hospital protocol half dose Replace magnesium per hospital protocol Check hemoglobin A1c in a.m. Glucometer checks a.c. and HS 1800 ADA diet Humulin R sliding scale Avoid anticoagulation during this hospitalization Administer aspirin 162 mg by mouth times 1 dose Continue aspirin 81 mg by mouth once daily Nitroglycerin sublingual 0.4 mg as needed for chest pain every 5 minutes, max 3 doses, hold for systolic blood pressure less than 100 mmHg. Trend troponin every 6 hours x 3 sets Supplemental oxygen to maintain O2 saturation greater than 92% Consult cardiology if any elevation in troponin or troponin uptrending Consider discontinuing antiplatelet therapy if troponins remain flat or do not trend upwards given patient's thrombocytopenia. Counseled patient on cessation of illegal drug use. Counseled patient on alcohol cessation. Librium 25 mg by mouth every 8 hours As needed Ativan for alcohol withdrawal 1 mg every 4 hours Use CIWA-AR assessment tool Document EtOH withdrawal score Assess the need for seizure and aspiration precautions Nicotine patch [id number] mg daily Consult patient on smoking cessation GI prophylaxis, Protonix DVT prophylaxis, Adryan's and SCDs. Critical Care Time: I spent ____ 51__ minutes of critical care time with the patient. I reviewed lab work, change the patient's medication, and coordinated protocol in the event of tachycardia or desaturation. The patient status remains unchanged. ADVANCED CARE PLANNING 1. Which of the following were discussed? Hospice Care - Yes Therapeutic options - Yes Advance Directives - Yes- patient states he does not have any advance directives in place at this time, however his daughter can make decisions for him if he becomes unable. Other discussions - patient wishes to remain a full code at this time 2. Discussed with who? Patient 3. Voluntary nature of this service was explained to the patient? Yes 4. Amount of time spent - ____ 16 minutes ___ 5. Reviewed by Physician? (if this service was performed by NPP) Yes This document was generated in part using voice recognition software, occasional wrong word or sound alike substitutions may have occurred due to the inherent limitations of voice recognition software. Read the chart carefully and recognize using context, where the substitutions have occurred. Although every effort was made to edit the content, census clerk and typing errors may occur ATTESTATION BY PHYSICIAN I have seen and examined the patient. I reviewed the documentation, medical decision making, and treatment plan as noted by the mid-level provider above. I agree with the findings and plan of care. ADITYA GUEVARA OIL SPRAYER Jan 05, 2025 02:32
--- NOTE | 2025-01-05 02:55 | NUR ---
[facility]
[2025-01-05 03:05] LABS: HEMOGLOBIN A1C 8.5 % (4.0-6.0)
[2025-01-05] MEDS: LACTATED RINGERS IV ONE (03:12)
[2025-01-05] MEDS: chlordiazePOXIDE HCL 25 MG CAP PO SCH (03:13)
[2025-01-05] MEDS: MAGNESIUM 2GM PREMIX 50ML 50 ML IV PRN (03:24)
[2025-01-05] MEDS: ZOSYN 3.375GM +NS 50ML IV SCH (04:37)
[2025-01-05 04:45] LABS: BASOPHILS # (AUTO) 0.06 K/uL (0.00-0.20); BASOPHILS % (AUTO) 0.5 % (0.0-5.0); EOSINOPHILS # (AUTO) 0.01 K/uL (0.00-0.70); EOSINOPHILS % (AUTO) 0.1 % (0.0-8.0); HEMATOCRIT 39.4 % (42-54); IMMATURE GRANULOCYTE ABSOLUTE 0.19 K/uL (0-1); LYMPHOCYTES # (AUTO) 0.4 K/uL (1.0-4.8); MEAN CORPUSCULAR HEMOGLOBIN 32.4 pg (27.0-33.0); MEAN CORPUSCULAR HGB CONC 37.1 g/dL (32.0-36.0); MEAN CORPUSCULAR VOLUME 87.6 fL (79-99); MONOCYTES % (AUTO) 7.5 % (3.0-13.0); NEUTROPHILS # (AUTO) 11.5 K/uL (1.8-7.7); NEUTROPHILS % (AUTO) 87.5 % (40.0-77.0); PLATELET COUNT (AUTO) 23 K/uL (130-400); RED CELL DISTRIBUTION WIDTH 12.4 % (11.0-15.5); WHITE BLOOD COUNT (AUTO) 13.1 K/uL (4.8-10.8)
--- NOTE | 2025-01-05 06:51 | NUR ---
JUANCARLOS ELECTRONICS ENGINEER MADE AWARE OF CRITICAL CARE CONSULT
--- NOTE | 2025-01-05 07:00 | EKG ---
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
[2025-01-05] MEDS: INSULIN humuLIN R 100 UNIT/ML 3ML SQ SCH ×2 (07:59→12:27)
[2025-01-05 08:10] LABS: CREATININE 3.4 mg/dL (0.5-1.3); MAGNESIUM 2.2 mg/dL (1.80-2.40); PHOSPHORUS 1.8 mg/dL (2.5-4.9)
[2025-01-05 08:17] LABS: POTASSIUM 2.7 mmol/L (3.5-5.1)
--- NOTE | 2025-01-05 08:20 | HMCIMG ---
Exam Type: CHEST 1VW Clinical Information: chest pain CAD Comparison: None Findings: The lungs are clear of infiltrates. The heart is normal in size. The bony and soft tissue structures of the chest are unremarkable. Impression: Clear lungs.
[2025-01-05] MEDS: ASPIRIN 81MG CHEW TAB PO SCH (09:00)
[2025-01-05] MEDS: PANTOPrazole 40 MG TAB DR PO SCH (09:04)
[2025-01-05] MEDS: NICOTINE 21 MG/ 24 HR PATCH TD SCH (09:04)
--- NOTE | 2025-01-05 09:20 | NUR ---
DR LUNDBERG NEPHROLOGY AT THE BEDSIDE.
[2025-01-05 09:59] LABS: VENT MODE, BG RA (ROOM AIR)
[2025-01-05] MEDS ORDERED: poTASSium PHOS 15 mMOL+NS250ML 250 ML IV PRN (10:00)
[2025-01-05] MEDS ORDERED: GLUCAGON 1MG KIT 1 MG ML IM PRN (10:00)
[2025-01-05] MEDS ORDERED: DEXTROSE 50%-WATER 50 ML DISP.SYRIN IV PRN (10:00)
[2025-01-05 10:06] LABS: ABG BASE EXCESS -4.2 mmol/L (-2.0-3.0); ABG HCO3 17.5 mmol/L (21.0-28.0); ABG OXYGEN SATURATION 96.7 % (94.0-98.0); ABG PCO2 25 mmHg (35-48); ABG PH 7.469 (7.350-7.450); DEVICE COMMENT RR,OSCAR; PO2, ARTERIAL BG 80.7 mmHg (83.0-108.0); VENT MODE, BG RA (ROOM AIR)
[2025-01-05 10:19] LABS: HEMATOCRIT 40.5 % (42-54); MEAN CORPUSCULAR HEMOGLOBIN 32.5 pg (27.0-33.0); MEAN CORPUSCULAR VOLUME 87.9 fL (79-99); PLATELET COUNT (AUTO) 21 K/uL (130-400); RED BLOOD CELL COUNT(AUTO) 4.61 MIL/uL (4.50-6.20); RED CELL DISTRIBUTION WIDTH 12.8 % (11.0-15.5); WHITE BLOOD COUNT (AUTO) 13.1 K/uL (4.8-10.8)
[2025-01-05] MEDS: DOXYCYCLINE 100MG+NS 250ML 250 ML IV SCH (10:24)
[2025-01-05] MEDS: PoTASSium chloRIDE 20MEQ ER 20 MEQ ERTAB PO ONE (10:25)
[2025-01-05] MEDS: 0.9%NACL 1000ML 1,000 ML IV SCH (10:26)
[2025-01-05 10:30] LABS: INR 1.29 (0.85-1.15); PROTHROMBIN TIME 14.1 SEC (9.6-11.6)
--- NOTE | 2025-01-05 10:33 | CONS ---
REFERRING PHYSICIAN: Papo Summers MD REASON FOR CONSULTATION: Renal failure. HISTORY OF PRESENT ILLNESS: A 44-year-old male with essentially no past history. The patient presents to the hospital with failure to thrive. The patient has been having generalized weakness. Laboratory values revealed an elevated BUN and creatinine as well as significant electrolyte abnormalities including hyponatremia and hypokalemia. The patient does admit to some diarrhea at home. The patient also admits to polydipsia. Urine drug screen was positive for cocaine and he is being seen in consultation for all of the above. PAST MEDICAL HISTORY: None. SOCIAL HISTORY: He does admit to heavy alcohol use as well as elicit drug use. FAMILY HISTORY: There is no renal disease in the family. ALLERGIES: There are no allergies. MEDICATIONS: Noted. REVIEW OF SYSTEMS: GENERAL: The patient is feeling weak and tired. HEENT: No change in vision. No change in hearing. CARDIOVASCULAR: There is no current chest pain or palpitations. PULMONARY: Denies any shortness of breath. GASTROINTESTINAL: Appetite is poor. MUSCULOSKELETAL: Complains of weakness. NEUROLOGIC: No seizures or focal deficits. PSYCHIATRIC: No history of hallucinations or psychosis. ENDOCRINE: Denies any thyroid disease. HEME: No history of anemia or malignancy. PHYSICAL EXAMINATION: VITAL SIGNS: Blood pressure 122/78, pulse of 90s. GENERAL: He is a chronically ill male, much older than appearing. HEENT: Head is atraumatic. Pupils equal, roving to light. Oropharynx is without exudate. Nares clear. NECK: There is no JVP. There is no thyromegaly, no mass. CARDIOVASCULAR: Regular. There is no S3, S4 gallop. LUNGS: Coarse with equal thoracic movement. ABDOMEN: Soft, nondistended, nontender. EXTREMITIES: Reveal no clubbing, no cyanosis. NEUROLOGICAL: He is awake. He is alert. He is oriented. SKIN: Reveals no rash or nodules. BACK: There is no CVA tenderness, no back deformities. LABORATORY DATA: Sodium 122, potassium 2.7, chloride 87, bicarbonate 20, BUN 64, creatinine is 3.4, glucose is 351. Hemoglobin is 14. Urine does reveal protein and glucose in the urine. Urine sodium is 15. IMPRESSION: * Acute on chronic renal dysfunction. * Hypovolemia, hyponatremia. * Electrolyte abnormalities. * Diabetes mellitus. * History of substance abuse. PLAN: The patient will be switched over to normal saline at 150 mL per hour. We will continue to monitor electrolytes closely. The patient's potassium and phosphorus will be aggressively repleted. He does have some protein in the urine. We ____ spot urine for protein and creatinine to quantitate any amount of proteinuria. We will continue to follow the patient closely. All labs will be repeated in the morning. There is no acute need for any form of renal replacement therapy and we will follow the patient closely. TID: [id number] RECEIPT: [id number]
[2025-01-05 10:36] LABS: ALBUMIN 1.7 g/dL (3.5-5.0); BILIRUBIN,TOTAL 5.5 mg/dL (0.2-1.0); CREATININE 3.6 mg/dL (0.5-1.3); MAGNESIUM 2.3 mg/dL (1.80-2.40); TOTAL PROTEIN, SERUM 5.6 g/dL (6.0-8.3)
[2025-01-05 10:39] LABS: POTASSIUM 2.6 mmol/L (3.5-5.1)
--- NOTE | 2025-01-05 11:25 | CONS ---
[facility] CONSULTATION NOTE Date Patient Seen: Jan 05, 2025 Time of Visit: 11:25 Supervising Physician: [ ] Reason for Consultation: Dr. Inman Primary Care Physician: Cristiana PCP Outpatient Specialists: [ ] Inpatient Consults:Critical care, Hematology, cardiology and nephrology PROBLEM LIST: Severe sepsis and shock POA Urinary tract infection, POA Strep pharyngitis, POA Acute kidney injury, POA Hypokalemia, POA Hyponatremia, POA Thrombocytopenia, POA Uncontrolled Diabetes mellitius type2, POA HgA1C 8.5 Elevated troponin, POA suspected type II UT Substance abuse, POA, cocaine/Marijuana Alcohol dependence, POA Tobacco dependence, POA Morbid obesity Noncompliance behavior HPI: This is a 44-year-old male patient who has past medical history that is significant for hypertension, hyperlipidemia, diabetes mellitus, alcohol, tobacco and illicit drug use with preference for cocaine and marijuana, and morbid obesity. Per the patient's report, he was doing well until he has been feeling progressively generally weak and unwell for the past week. The patient decided to come in to the emergency department for further evaluation and management of his condition after been persuaded by family members who required to provide assistance for mobility due to his profuse weakness. The patient decided to come into the emergency department for further evaluation and management of his condition. Upon initial presentation, the initial vital signs showed changes consistent with severe sepsis and shock. Laboratory data showed elevated WBC count of 16.5 chemistry panel showed profound hyponatremia, hypokalemia and hypochloremia. Renal parameters were significantly elevated with a BUN of 77, creatinine of 3.9 and a GFR of 19. Patient had a random glucose of 248. Patient also had elevated troponin with a peak of 195. Liver parameters showed a elevated bilirubin of 5.7, AST 72 and ALT of 27 with a alk- phos of 78. PT of 14.1 with a INR 1.29. Urinalysis showed strong suspicion of a urinary tract infection. Toxicology screen showed positive for cocaine. Serology screen showed a group a strep positive and negative for influenza type A, B and SARS-CoV-2. Blood and urine sample was sent for microbiology studies. Chest x-ray showed no acute changes. CT abdomen and pelvis showed presence of gallstones and suspicion for acute pyelonephritis. The patient was admitted for further inpatient evaluation and management of his condition. Because of his severe sepsis, critical care team was consulted for further close monitoring and management. During my visit, the patient remained in the emergency department awaiting bed assignment. No new complaint. PAST MEDICAL HX: see above PAST SURGICAL HX: noncontributory SOCIAL HISTORY: No tobacco, ETOH, or illicit drug use Coded Allergies: No Known Drug Allergies (Unverified Allergy, Unknown, 12/18/15) REVIEW OF SYSTEMS: 12 point ROS reviewed with patient. Pertinent positives mentioned above. Otherwise negative. PHYSICAL EXAM: GENERAL: alert, weak, awake oriented x 3 HEENT: EOMI, Sclera non icteric, moist mucosa NECK: Supple, no JVD, trachea midline LUNGS: Clear breath sounds bilaterally. No wheezes HEART: Regular rate and rhythm. Normal S1 and S2, without murmurs ABD: Abdomen soft, nontender. Bowel sounds present EXT: No clubbing cyanosis or edema NEURO: Alert and oriented to person, follows commands Vital Signs (last 8hr) Date Time Temp Pulse Resp B/P (MAP) Pulse Ox O2 Delivery O2 Flow Rate FiO2 01/05/25 07:30 93 18 123/78 99 Room Air* 0 21 01/05/25 06:15 99.0 100 16 123/78 99 Room Air* 0 21 01/05/25 05:05 99.0 98 22 99/48 100 Room Air* 0 21 01/05/25 03:49 100.4 104 20 114/44 97 Room Air* 0 21 LABS: Hematology Labs: Test 01/05/25 07:34 01/05/25 04:23 01/04/25 23:22 Range/Units White Blood Count 13.1 H 4.8-10.8 K/uL Red Blood Count 4.61 4.50-6.20 MIL/uL Hemoglobin 15.0 14.0-18.0 g/dL Hematocrit 40.5 L 42-54 % Mean Corpuscular Volume 87.9 79-99 fL Mean Corpuscular Hemoglobin 32.5 27.0-33.0 pg Mean Corpuscular Hemoglobin Concent 37.0 H 32.0-36.0 g/dL Red Cell Distribution Width 12.8 11.0-15.5 % Platelet Count 21 L 130-400 K/uL Mean Platelet Volume 7.5-10.5 fL Nucleated Red Blood Cells 0.0 0.0-0.19 % Immature Granulocyte % (Auto) 1.4 H 0-1 % Neutrophils (%) (Auto) 87.5 H 40.0-77.0 % Lymphocytes (%) (Auto) 3.0 L 21.0-51.0 % Monocytes (%) (Auto) 7.5 3.0-13.0 % Eosinophils (%) (Auto) 0.1 0.0-8.0 % Basophils (%) (Auto) 0.5 0.0-5.0 % Neutrophils # (Auto) 11.5 H 1.8-7.7 K/uL Lymphocytes # (Auto) 0.4 L 1.0-4.8 K/uL Monocytes # (Auto) 1.0 0.1-1.0 K/uL Eosinophils # (Auto) 0.01 0.00-0.70 K/uL Basophils # (Auto) 0.06 0.00-0.20 K/uL Absolute Immature Granulocyte (auto 0.19 0-1 K/uL White Cell Morphology Comment See comments Platelet Morphology Comment See comments Red Blood Cell Morphology ANISO 1+ Chemistry Labs: Test 01/05/25 09:58 01/05/25 07:37 01/05/25 07:34 01/05/25 04:23 Range/Units Sodium Level 121 L 136-145 mmol/L Potassium Level 2.6 *L 3.5-5.1 mmol/L Chloride Level 87 *L 101-111 mmol/L Carbon Dioxide Level 21 21-32 mmol/L Blood Urea Nitrogen 71 H 7-18 mg/dL Creatinine 3.6 H 0.5-1.3 mg/dL Glomerular Filtration Rate Calc 20 >90 mL/min Random Glucose 231 H 70-105 mg/dL Total Calcium 6.7 L 8.5-10.1 mg/dL Magnesium Level 2.30 1.80-2.40 mg/dL Total Bilirubin 5.5 H 0.2-1.0 mg/dL Aspartate Amino Transf (AST/SGOT) 72 H 10-37 U/L Alanine Aminotransferase (ALT/SGPT) 26 12-78 U/L Alkaline Phosphatase 76 50-136 U/L Troponin I High Sensitivity 143 *H 4-75 ng/L Total Protein 5.6 L 6.0-8.3 g/dL Albumin 1.7 L 3.5-5.0 g/dL Amylase Level 40 25-115 U/L Lipase 89 H 16-77 U/L Whole Blood Glucose 351 H 70-110 MG/DL Phosphorus Level 1.8 L 2.5-4.9 mg/dL Lactic Acid Level 2.4 0.8-2.5 mmol/L Test 01/05/25 00:40 01/04/25 22:56 Range/Units Hemoglobin A1c 8.5 H 4.0-6.0 % Estimated Average Glucose (eAG) 197 H 70-126 mg/dL Whole Blood Ketones Quantitative 0.5 0.0-0.6 mmol/L Procalcitonin 36.78 H 0.05-0.5 ng/mL Thyroid Stimulating Hormone (TSH) 0.39 0.36-3.74 uIU/mL Total Creatine Kinase 195 # 21-232 U/L B-Type Natriuretic Peptide 135 H 0-100 pg/mL Coagulation Labs: Test 01/05/25 07:34 Range/Units Prothrombin Time 14.1 H 9.6-11.6 SEC Prothromb Time International Ratio 1.29 H 0.85-1.15 DIAGNOSTICS / RADIOLOGY RESULTS: [ ] PLAN Upon evaluation of this patient, he did meet criteria for severe sepsis. The patient was awake, alert and oriented x4. He was breathing on room air and did not require no oxygen supplementation at the time. On the monitor, he was hemodynamically stable and was not on any pressor therapy. The patient was feeding orally and denied any nausea vomiting or diarrhea. The patient was voiding spontaneously and denied any constipation. Because of the septic process the patient was started on antibiotic coverage and is currently receiving doxycycline and Zosyn. We will follow the culture results and adjust therapy as necessary. We will also follow the WBC trend and we will adjust therapy as necessary. We will repeat surveillance labs in the morning. We will monitor the patient's progress and response to management. Appreciate the opportunity given to participate in patient's care. We will follow along with you. We will continue to provide general supportive care, GI and DVT pro phylaxis. Further orders per attending MD and hospital course. NEURO: Minimize central acting medications as possible. Fall Precautions. Well lighted room through the day and minimize interruptions through the night to prevent acute delirium. PULMONARY: Supplemental 02 as needed Titrate Fio2 to keep Spo2 > or = 90% DuoNebs and CPT as needed IS hourly while awake for pulmonary hygiene Out of bed to chair as tolerated VAP Bundle CARDIOVASCULAR: Follow hemodynamics. Titrate vasopressor to keep MAP >65 or systolic blood pressure >95mmHg DIPS: None LINES: PIV's GI & NUTRITION: Continue nutritional support Aspirations precautions Prokinetic agents and laxatives as needed KIDNEYS & ELECTROLYTES: Strict monitoring of intake and output Daily weights Avoid nephrotoxic agents Monitor electrolytes and replace as needed Goal urine output of 30mL/hr or 0.5mL/kg/hr Urine output: [ ] Fluid Balance: [ ] ENDOCRINE: Maintain blood glucose between 100-180 at all times. Insulin sliding scale for blood glucose management INFECTIOUS DISEASE: Trend temperature. Mccormack-culture if febrile. Micro: [ ] Antibiotics: [ ] HEMATOLOGY & COAGULATION: Monitor H&H. Keep Hgb > 7 Transfuse 1 unit of PRBC for Hgb < 7 Transfuse 1 pack of platelets of platelets < 20, 000 Watch for any signs and symptoms of bleeding SKIN: Pressure ulcer prevention per facility protocol Rehab: PT/OT Prophylaxis: GI: Protonix DVT: [ ] Code Status: Full Resuscitation Disposition: [ ] Other: Total patient care time exceeds 35 minutes excluding all procedures. Case was discussed and seen with my supervising physician. The above plan was formulated and agreed upon. RHEA ALICEA NP Jan 05, 2025 11:25
--- NOTE | 2025-01-05 12:00 | NUR ---
DU ALICEA FOR CRITICAL CARE AT THE BEDSIDE.
--- NOTE | 2025-01-05 12:13 | NUR ---
KATIA MOE (MOTHER) UPDATED WITH PERSONAL CELL # [phone]
--- NOTE | 2025-01-05 12:47 | HMCIMG ---
Exam Type: US RENAL SONOGRAM Clinical Information: renal failure Comparison: None Findings: Examination shows normal renal size and echogenicity bilaterally. Preserved cortical thickness and corticomedullary junction region is seen. No hydronephrosis or calculi are seen. No renal masses are seen. There is no evidence of perinephric fluid on either side. No evidence of significant ureteral dilatation is seen. The right kidney measures 12.8 x 5.5 cm. The left kidney measures 12.9 x 6 cm. The urinary bladder is normal. No bladder masses, stones, or wall thickening is seen. Incidentally there is evidence of cholelithiasis. IMPRESSION: Normal renal anatomy bilaterally.
--- NOTE | 2025-01-05 13:32 | CONS ---
CONSULT NOTE: Mr. Jin is a 44-year-old male that was seen and examined today on 01/05/2025. Patient is a good historian and personal health. Patient is a good historian and personal health. Patient states that he came to the emergency department at the behest of his daughter. Patient's chief complaint is weakness. Onset was Thursday12/30/2024. Location is to entire body. Duration is constant. Character is described as, " today Orion needed help to get out of the sofa and out of the shower. I also fell down once. "There was no alleviating factors. Symptoms are aggravated with physical activity. Patient denies any associated chest pain or shortness and breath. I was consulted because of leukocytosis and severe thrombocytopenia. This patient have have any alcoholism. Patient also on cocaine. It seems the patient may be have pyelonephritis by CT scan with the patient was started on antibiotic treatment. It seems the patient complaining of pain all over his body. Past Medical History Patient History: Patient reports no known family medical history. ADDITIONAL PAST MEDICAL HISTORY: [Denies any past medical history, fatty liver by CT on 01/05/2025] SOCIAL HISTORY: [Patient smokes one pack of cigarettes daily but only5 times a week. Patient beers daily but also only5 times a week. Patient reports occasional use of both marijuana and cocaine. Patient denies any other illegal drug use. 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 Patient has poor access to health care due to lack of health insurance. Patient is typically independent of all his ADLs. Patient denies difficulty pain is bills. Patient lives with his daughter Hannah Jin] SURGICAL HISTORY: [Heart stent] Review of Systems Review of Systems General: No Fever, No Chills, No Night Sweats, No Fatigue, No Malaise, No Appetite, No Other HEENT: No Head Aches, No Visual Changes, No Eye Pain, No Ear Pain, No Dysphasia, No Sinus Congestion, No Post Nasal Drip, No Sore Throat, No Other Pulmonary: No Dyspnea, No Cough, No Pleuritic Chest Pain, No Other Cardiovascular: No: Chest Pain, Palpitations, Orthopnea, Paroxysmal Noc. Dyspnea, Edema, Lt Headedness, Other Gastrointestinal: No: Nausea, Vomiting, Abdominal Pain, Diarrhea, Constipation, Melena, Hematochezia, Other Genitourinary: No Dysuria, No Frequency, No Incontinence, No Hematuria, No Retention, No Other Musculoskeletal: No: other, neck pain, shoulder pain, arm pain, back pain, hand pain, leg pain, foot pain Skin: No Urticaria, No Rash, No Other Neurological: Weakness; No: Numbness, Incoordination, Change in speech, Confusion, Seizures, Other Allergies: Coded Allergies: No Known Drug Allergies (Unverified Allergy, Unknown, 12/18/15) Scheduled Amlodipine Besylate (Amlodipine Besylate), 5 MG PO DAILY Atorvastatin Calcium (Lipitor), 40 MG PO HS Hydrochlorothiazide (Hydrochlorothiazide), 25 MG PO DAILY Lisinopril (Lisinopril), 20 MG PO DAILY Losartan Potassium (Losartan Potassium), 50 MG PO DAILY Methylprednisolone (Medrol), 4 MG PO AD Tamsulosin HCl (Flomax), 0.4 MG PO DAILY [Aspirin], 325 MG PO DAILY [Prasugrel Hcl], 10 MG PO DAILY Scheduled PRN Ketorolac Tromethamine (Ketorolac Tromethamine), 10 MG PO TID PRN for PAIN Exam Exam Vital Signs Vital Signs Date Time Temp Pulse Resp B/P (MAP) Pulse Ox O2 Delivery O2 Flow Rate FiO2 01/05/25 00:30 102.0 01/05/25 00:17 118 26 129/82 100 Room Air* 0 21 General Appearance: Alert, Oriented X3, Cooperative, moderate distress HEENT: Atraumatic, PERRLA, EOMI, Other (Mucous membranes dry and cracked) Respiratory: Clear to auscultation, Normal air movement, NL respiratory effort Cardiovascular: Normal S1, Normal S2, Other (Tachycardia) Abdominal: Normal bowel sounds, Soft, No tenderness Extremities: No edema Skin: No significant lesion Neuro: Normal gait, Normal speech, Strength at 5/5 X4 ext, Sensation intact, Cranial nerves 3-12 NL Psych/Mental Status: Mental status NL, Mood NL, Thoughts/Content NL Assessment 1. Thrombocytopenia 2. Acute on chronic renal failure 4. Severe sepsis 5. Leukocytosis 6. Cocaine abuse 7. Alcohol abuse 8. Hepatomegaly 9. Splenomegaly 10. Morbid obesity Plan 1. Peripheral blood smear showed red blood cells to be normocytic normochromic. There was no fragment cell or schistocyte. There is no teardrop cell. There is no rouleaux phenomena. There is no pelger-Huet cell. White blood cell with no blasts. Platelet was normal in morphology and count. 2. There was hypersegmented neutrophils. This patient to be started on folic acid 1 mg p.o. daily and vitamin B12 1000 mcg p.o. daily. 3. Patient with low platelet with large platelet consistent with consumption of the platelet. Differential diagnosis could be splenomegaly. It could be ITP. This patient to receive a unit of single donor platelet to be done. 4. Patient to receive 1 unit of single donor platelet. Premedication with dexamethasone 10 mg and Benadryl 25 mg 5. Patient to have CBC tomorrow. If the platelet count improves that means most likely is due to splenomegaly. If the platelet count decreased that mimics ITP with the patient need to be started on high-dose dexamethasone LAB RESULTS 01/05/25 12:19: Whole Blood Glucose 246H 01/05/25 10:04: Blood Gas Specimen Type Arterial, Arterial Blood pH 7.469H, Arterial Blood Partial Pressure CO2 25L, Arterial Blood Partial Pressure O2 80.7L, Arterial Blood HCO3 17.5L, Arterial Blood Oxygen Saturation 96.7, Arterial Blood Base Excess -4.2L, Blood Gas Temperature 37.0, Blood Gas Vent Mode RA, FiO2 21.0, Blood Gas Specimen Comment RR,NISHA 01/05/25 09:58: Sodium Level 121L, Potassium Level 2.6*L, Chloride Level 87*L, Carbon Dioxide Level 21, Blood Urea Nitrogen 71H, Creatinine 3.6H, Glomerular Filtration Rate Calc 20, Random Glucose 231H, Total Calcium 6.7L, Magnesium Level 2.30, Total Bilirubin 5.5H, Aspartate Amino Transf (AST/SGOT) 72H, Alanine Aminotransferase (ALT/SGPT) 26, Alkaline Phosphatase 76, Troponin I High Sensitivity 143*H, Total Protein 5.6L, Albumin 1.7L, Amylase Level 40, Lipase 89H 01/05/25 07:34: White Blood Count 13.1H, Red Blood Count 4.61, Hemoglobin 15.0, Hematocrit 40.5L, Mean Corpuscular Volume 87.9, Mean Corpuscular Hemoglobin 32.5, Mean Corpuscular Hemoglobin Concent 37.0H, Red Cell Distribution Width 12.8, Platelet Count 21L, Mean Platelet Volume , Nucleated Red Blood Cells 0.0, Prothrombin Time 14.1H, Prothromb Time International Ratio 1.29H, Phosphorus Level 1.8L 01/05/25 04:23: Immature Granulocyte % (Auto) 1.4H, Neutrophils (%) (Auto) 87.5H, Lymphocytes (%) (Auto) 3.0L, Monocytes (%) (Auto) 7.5, Eosinophils (%) (Auto) 0.1, Basophils (%) (Auto) 0.5, Neutrophils # (Auto) 11.5H, Lymphocytes # (Auto) 0.4L, Monocytes # (Auto) 1.0, Eosinophils # (Auto) 0.01, Basophils # (Auto) 0.06, Absolute Immature Granulocyte (auto 0.19, Lactic Acid Level 2.4 01/05/25 00:40: Hemoglobin A1c 8.5H, Estimated Average Glucose (eAG) 197H, Whole Blood Ketones Quantitative 0.5, Procalcitonin 36.78H, Thyroid Stimulating Hormone (TSH) 0.39 01/04/25 23:37: Influenza Type A Antigen Negative For Type A, Influenza Type B Antigen Negative For Type B, SARS-CoV-2 Antigen (Rapid) PRESUMPTIVE NEGATIVE, Group A Streptococcus Rapid positive*A 01/04/25 23:35: Urine Color DARK-ORANGE, Urine Appearance TURBID, Urine pH 5.5, Urine Specific [place] 1.016, Urine Protein 100H, Urine Glucose (UA) 300H, Urine Ketones NEGATIVE, Urine Occult Blood LARGEH, Urine Nitrate NEGATIVE, Urine Bilirubin 1H, Urine Urobilinogen 12H, Urine Leukocyte Esterase 500H, Urine RBC 11-25H, Urine WBC TNTCH, Urine WBC Clumps (Auto) MANY, Urine Squamous Epithelial Cells RARE, Urine Amorphous Crystals (Auto) RARE, Urine Bacteria MANY, Urine Yeast with Hyphae RARE, Urine Random Creatinine 177.96H, Urine Random Sodium 15L, Urine Opiates Screen NEGATIVE, Urine Barbiturates Screen NEGATIVE, Urine Phencyclidine Screen NEGATIVE, Urine Amphetamines Screen NEGATIVE, Urine Benzodiazepines Screen NEGATIVE, Urine Cocaine Screen POSITIVEH, Urine Marijuana (THC) Screen NEGATIVE 01/04/25 23:22: White Cell Morphology Comment See comments, Platelet Morphology Comment See comments, Red Blood Cell Morphology ANISO 1+ 01/04/25 22:56: Total Creatine Kinase 195#, B-Type Natriuretic Peptide 135H Laboratory Tests Test 01/04/25 22:56 01/04/25 23:22 01/04/25 23:35 01/04/25 23:37 Sodium Level 117 mmol/L (136-145) L Potassium Level 2.6 mmol/L (3.5-5.1) *L Chloride Level 80 mmol/L (101-111) *L Carbon Dioxide Level 21 mmol/L (21-32) Blood Urea Nitrogen 57 mg/dL (7-18) H Creatinine 2.8 mg/dL (0.5-1.3) H Glomerular Filtration Rate Calc 28 mL/min (>90) Random Glucose 361 mg/dL (70-105) H Total Calcium 6.9 mg/dL (8.5-10.1) L Total Creatine Kinase 195 U/L (21-232) # Troponin I High Sensitivity 195 ng/L (4-75) *H B-Type Natriuretic Peptide 135 pg/mL (0-100) H White Blood Count 16.4 K/uL (4.8-10.8) H Red Blood Count 4.99 MIL/uL (4.50-6.20) Hemoglobin 16.3 g/dL (14.0-18.0) Hematocrit 43.8 % (42-54) Mean Corpuscular Volume 87.8 fL (79-99) Mean Corpuscular Hemoglobin 32.7 pg (27.0-33.0) Mean Corpuscular Hemoglobin Concent 37.2 g/dL (32.0-36.0) H Red Cell Distribution Width 12.6 % (11.0-15.5) Platelet Count 30 K/uL (130-400) L Mean Platelet Volume fL (7.5-10.5) Immature Granulocyte % (Auto) 1.3 % (0-1) H Neutrophils (%) (Auto) 86.8 % (40.0-77.0) H Lymphocytes (%) (Auto) 3.3 % (21.0-51.0) L Monocytes (%) (Auto) 7.8 % (3.0-13.0) Eosinophils (%) (Auto) 0.1 % (0.0-8.0) Basophils (%) (Auto) 0.7 % (0.0-5.0) Neutrophils # (Auto) 14.2 K/uL (1.8-7.7) H Lymphocytes # (Auto) 0.5 K/uL (1.0-4.8) L Monocytes # (Auto) 1.3 K/uL (0.1-1.0) H Eosinophils # (Auto) 0.01 K/uL (0.00-0.70) Basophils # (Auto) 0.12 K/uL (0.00-0.20) Absolute Immature Granulocyte (auto 0.21 K/uL (0-1) Nucleated Red Blood Cells 0.0 % (0.0-0.19) White Cell Morphology Comment See comments Platelet Morphology Comment See comments Red Blood Cell Morphology ANISO 1+ Urine Color DARK-ORANGE (YELLOW) Urine Appearance TURBID (CLEAR) Urine pH 5.5 (5.0-8.0) Urine Specific [place] 1.016 (1.001-1.031) Urine Protein 100 mg/dL (NEGATIVE) H Urine Glucose (UA) 300 mg/dL (NEGATIVE) H Urine Ketones NEGATIVE mg/dL (NEGATIVE) Urine Occult Blood LARGE (NEGATIVE) H Urine Nitrate NEGATIVE (NEGATIVE) Urine Bilirubin 1 mg/dL (NEGATIVE) H Urine Urobilinogen 12 mg/dL (0.2-1.0) H Urine Leukocyte Esterase 500 Charlie/uL (NEGATIVE) H Urine RBC 11-25 /HPF (0-1) H Urine WBC TNTC /HPF (0-1) H Urine WBC Clumps (Auto) MANY /HPF (0-1) Urine Squamous Epithelial Cells RARE /HPF (0-2) Urine Amorphous Crystals (Auto) RARE /LPF (None Seen) Urine Bacteria MANY /HPF (None Seen) Urine Yeast with Hyphae RARE /HPF (None Seen) Urine Random Creatinine 177.96 mg/dL (30-135) H Urine Random Sodium 15 mmol/l (40-220) L Urine Opiates Screen NEGATIVE (NEGATIVE) Urine Barbiturates Screen NEGATIVE (NEGATIVE) Urine Phencyclidine Screen NEGATIVE (NEGATIVE) Urine Amphetamines Screen NEGATIVE (NEGATIVE) Urine Benzodiazepines Screen NEGATIVE (NEGATIVE) Urine Cocaine Screen POSITIVE (NEGATIVE) H Urine Marijuana (THC) Screen NEGATIVE (NEGATIVE) Influenza Type A Antigen Negative For Type A Influenza Type B Antigen Negative For Type B SARS-CoV-2 Antigen (Rapid) PRESUMPTIVE NEGATIVE Group A Streptococcus Rapid positive (NEGATIVE) *A Test 01/05/25 00:40 01/05/25 04:23 01/05/25 07:34 01/05/25 07:37 Hemoglobin A1c 8.5 % (4.0-6.0) H Estimated Average Glucose (eAG) 197 mg/dL (70-126) H Whole Blood Ketones Quantitative 0.5 mmol/L (0.0-0.6) Lactic Acid Level 3.9 mmol/L (0.8-2.5) H 2.4 mmol/L (0.8-2.5) Phosphorus Level 1.9 mg/dL (2.5-4.9) L 1.8 mg/dL (2.5-4.9) L Magnesium Level 1.70 mg/dL (1.80-2.40) L 2.20 mg/dL (1.80-2.40) Procalcitonin 36.78 ng/mL (0.05-0.5) H Thyroid Stimulating Hormone (TSH) 0.39 uIU/mL (0.36-3.74) White Blood Count 13.1 K/uL (4.8-10.8) H 13.1 K/uL (4.8-10.8) H Red Blood Count 4.50 MIL/uL (4.50-6.20) 4.61 MIL/uL (4.50-6.20) Hemoglobin 14.6 g/dL (14.0-18.0) 15.0 g/dL (14.0-18.0) Hematocrit 39.4 % (42-54) L 40.5 % (42-54) L Mean Corpuscular Volume 87.6 fL (79-99) 87.9 fL (79-99) Mean Corpuscular Hemoglobin 32.4 pg (27.0-33.0) 32.5 pg (27.0-33.0) Mean Corpuscular Hemoglobin Concent 37.1 g/dL (32.0-36.0) H 37.0 g/dL (32.0-36.0) H Red Cell Distribution Width 12.4 % (11.0-15.5) 12.8 % (11.0-15.5) Platelet Count 23 K/uL (130-400) L 21 K/uL (130-400) L Mean Platelet Volume fL (7.5-10.5) fL (7.5-10.5) Immature Granulocyte % (Auto) 1.4 % (0-1) H Neutrophils (%) (Auto) 87.5 % (40.0-77.0) H Lymphocytes (%) (Auto) 3.0 % (21.0-51.0) L Monocytes (%) (Auto) 7.5 % (3.0-13.0) Eosinophils (%) (Auto) 0.1 % (0.0-8.0) Basophils (%) (Auto) 0.5 % (0.0-5.0) Neutrophils # (Auto) 11.5 K/uL (1.8-7.7) H Lymphocytes # (Auto) 0.4 K/uL (1.0-4.8) L Monocytes # (Auto) 1.0 K/uL (0.1-1.0) Eosinophils # (Auto) 0.01 K/uL (0.00-0.70) Basophils # (Auto) 0.06 K/uL (0.00-0.20) Absolute Immature Granulocyte (auto 0.19 K/uL (0-1) Nucleated Red Blood Cells 0.0 % (0.0-0.19) 0.0 % (0.0-0.19) Troponin I High Sensitivity 171 ng/L (4-75) *H Prothrombin Time 14.1 SEC (9.6-11.6) H Prothromb Time International Ratio 1.29 (0.85-1.15) H Sodium Level 122 mmol/L (136-145) L Potassium Level 2.7 mmol/L (3.5-5.1) *L Chloride Level 87 mmol/L (101-111) *L Carbon Dioxide Level 20 mmol/L (21-32) L Blood Urea Nitrogen 64 mg/dL (7-18) H Creatinine 3.4 mg/dL (0.5-1.3) H Glomerular Filtration Rate Calc 22 mL/min (>90) Random Glucose 284 mg/dL (70-105) H Total Calcium 6.9 mg/dL (8.5-10.1) L Whole Blood Glucose 351 MG/DL (70-110) H Test 01/05/25 09:58 01/05/25 10:04 01/05/25 12:19 Blood Gas Specimen Type Arterial Arterial Arterial Blood pH (7.350-7.450) 7.469 (7.350-7.450) Arterial Blood Partial Pressure CO2 mmHg (35-48) 25 mmHg (35-48) L Arterial Blood Partial Pressure O2 mmHg (83.0-108.0) 80.7 mmHg (83.0-108.0) L Arterial Blood HCO3 mmol/L (21.0-28.0) 17.5 mmol/L (21.0-28.0) L Arterial Blood Oxygen Saturation % (94.0-98.0) 96.7 % (94.0-98.0) Arterial Blood Base Excess mmol/L (-2.0-3.0) -4.2 mmol/L (-2.0-3.0) L Blood Gas Temperature 37.0 CELSIUS (35.5-37.0) 37.0 CELSIUS (35.5-37.0) Blood Gas Vent Mode RA (ROOM AIR) RA (ROOM AIR) FiO2 % 21.0 % Blood Gas Specimen Comment LR,NISHA RR,NISHA Sodium Level 121 mmol/L (136-145) L Potassium Level 2.6 mmol/L (3.5-5.1) *L Chloride Level 87 mmol/L (101-111) *L Carbon Dioxide Level 21 mmol/L (21-32) Blood Urea Nitrogen 71 mg/dL (7-18) H Creatinine 3.6 mg/dL (0.5-1.3) H Glomerular Filtration Rate Calc 20 mL/min (>90) Random Glucose 231 mg/dL (70-105) H Total Calcium 6.7 mg/dL (8.5-10.1) L Magnesium Level 2.30 mg/dL (1.80-2.40) Total Bilirubin 5.5 mg/dL (0.2-1.0) H Aspartate Amino Transf (AST/SGOT) 72 U/L (10-37) H Alanine Aminotransferase (ALT/SGPT) 26 U/L (12-78) Alkaline Phosphatase 76 U/L (50-136) Troponin I High Sensitivity 143 ng/L (4-75) *H Total Protein 5.6 g/dL (6.0-8.3) L Albumin 1.7 g/dL (3.5-5.0) L Amylase Level 40 U/L (25-115) Lipase 89 U/L (16-77) H Whole Blood Glucose 246 MG/DL (70-110) H LEOPOLDO AGUILAR MD Jan 05, 2025 13:32
[2025-01-05 14:46] LABS: APPEARANCE,URINE TURBID (CLEAR); BILIRUBIN,URINE 1 mg/dL (NEGATIVE); COLOR,URINE DARK-YELLOW (YELLOW); GLUCOSE, URINE (UA) 200 mg/dL (NEGATIVE); KETONES,URINE NEGATIVE (NEGATIVE); LEUKOCYTE ESTERASE ,URINE 500 Leu/uL (NEGATIVE); NITRATE,URINE NEGATIVE (NEGATIVE); OCCULT BLOOD,URINE LARGE (NEGATIVE); PH,URINE 5.5 (5.0-8.0); PROTEIN,URINE 70 mg/dL (NEGATIVE)
[2025-01-05 14:50] LABS: CREATININE,URINE RANDOM 99.83 mg/dL (30-135); PROTEIN,URINE RANDOM 208.3 mg/dL (0-11.9)
[2025-01-05 14:51] LABS: ADD UA MICROSCOPIC YES
[2025-01-05 14:57] LABS: BACTERIA,URINE FEW /HPF (None Seen); MUCUS,URINE RARE LPF (None Seen); NON-SQUAMOUS EPITHELIAL CELL 2 /HPF (0-2); RBC,URINE >100 /HPF (0-1); SQUAMOUS EPITHELIAL CELL,UR RARE /HPF (0-2); UNCLASSIFIED CRYSTAL 13 /HPF (None Seen); WBC CLUMP RARE /HPF (0-1); YEAST,URINE BUDDING FEW /HPF (None Seen); YEAST,URINE HYPHAE RARE /HPF (None Seen)
--- NOTE | 2025-01-05 15:01 | HMCSR ---
APPROVED REPORT EXAM: Two-dimensional and M-mode echocardiogram with Doppler and color Doppler. Study Details: Pt states fevers INDICATION ICD: Positive troponin 2D Dimensions RVDd3.9 cmLVEF(%)51.2 (>50%)LVED Vol(simp.)87.0 mL IVSd0.8 (0.7-1.1cm)FS(%)26 %LVES Vol(simp.)35.0 mL LVDd5.3 (3.8-5.6cm)LA (2D)4.2 (1.6-4.0cm)LVEF(%, simp.)60 % PWd1.3 (0.7-1.1cm)Ao Root(2D)3.5 (2.0-3.7cm)LA ESV INDEX (4CH)21.50 mL/m2 IVSs1.0 cmLVOT diam2.4 (1.8-2.4cm)LA ESV INDEX (2CH)19.20 mL/m2 LVDs3.9 (2.5-4.0cm)IVC diam2.5 cmLA ESV INDEX (BP)20.35 mL/m2 PWs1.6 cm Deformation Strain Apical 4-16.0 % Apical 2-12.0 % Apical 3-10.0 % Global Strain-13.0 % M-Mode Dimensions EPSS0.6 cm LA (MM)4.3 (1.6-4.0cm) Ao Root(MM)3.8 (2.0-3.7cm) Aortic Valve AoV VTI0.2 mAo Mean GR5.0 mmHgLVOT VTI0.20 m JEANNE (VMAX)3.9 cm2AVA (VTI) 3.9 cm2 Mitral Valve MV E Nrjn712.5 cm/sDECEL Zzib435 msMV Mean GR4 mmHg MV A Vmax50.8 cm/sP 1/2 T58 msMVA (VTI)2.7 cm2 E/A ratio2.3MVA (PHT)3.8 cm2 TDI E/E' Ynfnvs91.6E/E' Exymlzt63.6 Medial E' Peak V5.20 cm/sLateral E' Peak V6.00 cm/s Pulmonary Valve PV VTI0.15 mPV Mean GR2 mmHg Tricuspid Valve RAP (EST) 8 mmHgRVSP8.0 mmHg Left Ventricle The left ventricle is normal size. The There is normal left ventricular wall thickness. LVEF is 60-65 %. Indeterminate diastolic dysfunction. Right Ventricle The right ventricle is normal size. The right ventricular systolic function is normal. Atria The left atrium size is normal. The right atrium size is normal. Aortic Valve The aortic valve is trileaflet and opens well. Right coronary cusp leaflet appears to have a vegerati on. No aortic regurgitation is present. There is no aortic valvular stenosis. Mitral Valve The mitral valve is normal in structure. There is no mitral valve regurgitation noted. There is no mi tral valve stenosis. Tricuspid Valve The tricuspid valve is normal in structure. There is no tricuspid valve regurgitation noted. Pulmonic Valve The pulmonary valve is normal in structure. There is no pulmonic valvular regurgitation. Great Vessels The aortic root is normal in size. IVC is dilated and collapses >50% with inspiration. Pericardium There is no pericardial effusion. Other Information Quality : Adequate Conclusion The left ventricle is normal size. LVEF is 60-65%. Indeterminate diastolic dysfunction. The right ventricle is normal size. The right ventricular systolic function is normal. The left atrium size is normal. The right atrium size is normal. The aortic valve is trileaflet and opens well. Right coronary cusp leaflet appears to have a vegerat ion. IVC is dilated and collapses >50% with inspiration. There is no pericardial effusion.
[2025-01-05 15:15] LABS: ALBUMIN 1.6 g/dL (3.5-5.0); BILIRUBIN,TOTAL 5.7 mg/dL (0.2-1.0); CREATININE 3.9 mg/dL (0.5-1.3); TOTAL PROTEIN, SERUM 5.8 g/dL (6.0-8.3)
[2025-01-05 15:18] LABS: POTASSIUM 2.9 mmol/L (3.5-5.1)
--- NOTE | 2025-01-05 15:18 | NUR ---
DCP: HOME met with pt and his daughter Stacey [phone]. Daughter lives with pt at his home. Pt is independent of all his ADLS, no DME or in home care services. Has no insurance or PCP. Community resources given. Uses [facility] for rx as needed. Denies dc needs, will dc home with daughter Addendum: 01/05/25 at 1521 by RAEANN BROWN SS Amended: Links added.
--- NOTE | 2025-01-05 16:56 | CONS ---
[facility] CARDIOLOGY CONSULTATION REPORT Cardiology consultation note dictated for Evans Hilario MD Date Patient Seen: Jan 05, 2025 Requesting Physician: Keith Styles MD Reason for Consultation: Elevated troponin History of Present Illness: This is a 44-year-old male with a past medical history of hypertension, hyperlipidemia, history of hypertensive emergency in 2016, NSTEMI in the setting of uncontrolled hypertension in 2016, single-vessel CAD with nonocclusive thrombus in the proximal LAD with approximately 75% luminal encroachment by thrombus, s/p intracoronary Integrilin Pronto catheter thrombectomy and PTCA and stenting of the proximal LAD with a 4.0 x 16 mm Promus drug-eluting stent, 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 The patient was found to have urinary tract infection, group A strep, acute renal failure, and sepsis. CT of the abdomen pelvis demonstrated cholelithiasis and pyelonephritis. Cardiology has been consulted for elevated troponin. Troponin 185, 171, 143, 120 in the setting of sepsis. Vegetation to a right coronary cusp leaflet found on 2D echo is concerning for endocarditis. EKG demonstrated sinus tachycardia with a hr of 114bpm, with possible old inferior infarct. The patient denies chest pain, chest pressure, palpitations, dizziness, or shortness of breath. He states he has not seen a drafter seismograph since 2016 after his stent. Past Medical History: As per HPI and summarized below Past Surgical History: None Family History: Noncontributory Social History: The patient lives with family. Habits: The patient admits to smoking 1 pack of cigarettes daily and 18 beers daily but only 5 days out of the week with recreational marijuana use. Home Meds: None Current Meds: Current Medications Medications Dose Ordered Sig/Asya Start Time Stop Time Status Last Admin Nitroglycerin 0.4 mg AD PRN 01/05/25 02:30 02/04/25 02:29 Piperacillin Sod/ Tazobactam Sod 3.375 gm Q12H 01/05/25 02:30 01/15/25 02:29 01/05/25 15:05 Potassium Chloride 100 ml @ 100 mls/hr AD PRN 01/05/25 02:30 02/04/25 02:29 Potassium Chloride 10 meq AD PRN 01/05/25 02:30 02/04/25 02:29 Potassium Chloride 10 meq AD PRN 01/05/25 02:30 02/04/25 02:29 Acetaminophen 650 mg Q6H PRN 01/05/25 02:30 02/04/25 02:29 Pantoprazole Sodium 40 mg DAILY 01/05/25 09:00 02/04/25 08:59 01/05/25 09:04 Ondansetron HCl 4 mg Q6H PRN 01/05/25 02:30 02/04/25 02:29 Morphine Sulfate 2 mg Q4H PRN 01/05/25 02:30 01/12/25 02:29 Benzocaine 1 each Q4H PRN 01/05/25 02:30 02/04/25 02:29 Magnesium Sulfate 50 ml @ 0 mls/hr PROTOCOL PRN 01/05/25 02:30 02/04/25 02:29 01/05/25 03:24 Chlordiazepoxide HCl 25 mg Q8H 01/05/25 02:30 01/12/25 02:29 01/05/25 12:05 Lorazepam 1 mg Q4H PRN 01/05/25 02:30 01/12/25 02:29 Pharmacy Profile Note 1 each PROTOCOL PRN 01/05/25 02:30 01/12/25 02:29 Nicotine 21 mg DAILY 01/05/25 09:00 02/04/25 08:59 01/05/25 09:04 Sodium Chloride 1,000 ml @ 150 mls/hr Q6H40M 01/05/25 10:00 02/04/25 09:59 01/05/25 10:26 Potassium Phosphate 250 ml @ 42 mls/hr PROTOCOL PRN 01/05/25 10:00 02/04/25 09:59 Hydralazine HCl 5 mg Q6H PRN 01/05/25 14:30 02/04/25 14:29 Doxycycline Hyclate 250 ml @ 125 mls/hr Q12H 01/05/25 10:00 01/15/25 09:59 01/05/25 10:24 Dextrose 50 ml AD PRN 01/05/25 10:00 02/04/25 09:59 Glucagon 1 mg AD PRN 01/05/25 10:00 02/04/25 09:59 Insulin Human Regular INSULIN SLIDING SCAL... ACHS 01/05/25 11:30 02/04/25 11:29 01/05/25 12:27 Review of Systems: CONST: No fever, fatigue, or weight changes. EYES: No recent vision problems. ENT: No congestion, ear pain, or sore throat. C/V: No chest pain, palpitations, or edema. RESP: No cough, congestion, wheezing or shortness of breath. GI: No abdominal pain, nausea, vomiting, constipation, or diarrhea. : No incontinence or dysuria. SKIN: No rash. NEURO: No headache, focal numbness or weakness, dizziness, or seizures. PSYCH: No depression or anxiety. HEME: No abnormal bruising or bleeding. LYMPH: No swollen glands. Physical Examination: GENERAL: No acute distress. Ill-looking. HEAD: Normal with no signs of head trauma. EYES: PERRLA, EOMI, conjunctiva and sclera normal. ENT: Hearing grossly intact, normal oropharynx. NECK: Supple without JVD. There is no tenderness, lymphadenopathy, or masses. No thyromegaly. Normal carotid upstrokes without bruits. LUNGS: Clear breath sounds bilaterally. No wheezes, or rhonchi. HEART: Normal rate and rhythm. Normal S1 and S2 without murmurs, gallop or rub. VASC: Peripheral pulses +2 bilaterally. ABD: Bowel sounds normal, soft, nontender, no masses, no organomegaly. No audible bruits. : Not examined LYMPH: No lymphadenopathy noted. EXT: No clubbing, cyanosis or edema. SKIN: No rashes or lesions noted. NEURO: Awake, alert, and oriented x3. No focal sensory or strength deficits no anabella. Vital Signs (last 8hr) Date Time Temp Pulse Resp B/P (MAP) Pulse Ox O2 Delivery O2 Flow Rate FiO2 01/05/25 15:30 92 20 119/83 97 Room Air* 0 21 01/05/25 11:30 99.0 97 16 123/81 98 Room Air* 0 21 Laboratory: Hematology Labs: Test 01/05/25 07:34 01/05/25 04:23 01/04/25 23:22 Range/Units White Blood Count 13.1 H 4.8-10.8 K/uL Red Blood Count 4.61 4.50-6.20 MIL/uL Hemoglobin 15.0 14.0-18.0 g/dL Hematocrit 40.5 L 42-54 % Mean Corpuscular Volume 87.9 79-99 fL Mean Corpuscular Hemoglobin 32.5 27.0-33.0 pg Mean Corpuscular Hemoglobin Concent 37.0 H 32.0-36.0 g/dL Red Cell Distribution Width 12.8 11.0-15.5 % Platelet Count 21 L 130-400 K/uL Mean Platelet Volume 7.5-10.5 fL Nucleated Red Blood Cells 0.0 0.0-0.19 % Immature Granulocyte % (Auto) 1.4 H 0-1 % Neutrophils (%) (Auto) 87.5 H 40.0-77.0 % Lymphocytes (%) (Auto) 3.0 L 21.0-51.0 % Monocytes (%) (Auto) 7.5 3.0-13.0 % Eosinophils (%) (Auto) 0.1 0.0-8.0 % Basophils (%) (Auto) 0.5 0.0-5.0 % Neutrophils # (Auto) 11.5 H 1.8-7.7 K/uL Lymphocytes # (Auto) 0.4 L 1.0-4.8 K/uL Monocytes # (Auto) 1.0 0.1-1.0 K/uL Eosinophils # (Auto) 0.01 0.00-0.70 K/uL Basophils # (Auto) 0.06 0.00-0.20 K/uL Absolute Immature Granulocyte (auto 0.19 0-1 K/uL White Cell Morphology Comment See comments Platelet Morphology Comment See comments Red Blood Cell Morphology ANISO 1+ Chemistry Labs: Test 01/05/25 15:31 01/05/25 14:45 01/05/25 12:19 01/05/25 09:58 Range/Units Troponin I High Sensitivity 120 *H 4-75 ng/L Sodium Level 121 L 136-145 mmol/L Potassium Level 2.9 *L 3.5-5.1 mmol/L Chloride Level 87 *L 101-111 mmol/L Carbon Dioxide Level 20 L 21-32 mmol/L Blood Urea Nitrogen 77 *H 7-18 mg/dL Creatinine 3.9 H 0.5-1.3 mg/dL Glomerular Filtration Rate Calc 19 >90 mL/min Random Glucose 248 H 70-105 mg/dL Total Calcium 6.7 L 8.5-10.1 mg/dL Total Bilirubin 5.7 H 0.2-1.0 mg/dL Aspartate Amino Transf (AST/SGOT) 72 H 10-37 U/L Alanine Aminotransferase (ALT/SGPT) 27 12-78 U/L Alkaline Phosphatase 78 50-136 U/L Total Protein 5.8 L 6.0-8.3 g/dL Albumin 1.6 L 3.5-5.0 g/dL Whole Blood Glucose 246 H 70-110 MG/DL Magnesium Level 2.30 1.80-2.40 mg/dL Amylase Level 40 25-115 U/L Lipase 89 H 16-77 U/L Test 01/05/25 07:34 01/05/25 04:23 01/05/25 00:40 01/04/25 23:35 Range/Units Phosphorus Level 1.8 L 2.5-4.9 mg/dL Lactic Acid Level 2.4 0.8-2.5 mmol/L Hemoglobin A1c 8.5 H 4.0-6.0 % Estimated Average Glucose (eAG) 197 H 70-126 mg/dL Whole Blood Ketones Quantitative 0.5 0.0-0.6 mmol/L Procalcitonin 36.78 H 0.05-0.5 ng/mL Thyroid Stimulating Hormone (TSH) 0.39 0.36-3.74 uIU/mL Serum Osmolality 275 L 278-305 mOsm/kg Test 01/04/25 22:56 Range/Units Total Creatine Kinase 195 # 21-232 U/L B-Type Natriuretic Peptide 135 H 0-100 pg/mL Coagulation Labs: Test 01/05/25 07:34 Range/Units Prothrombin Time 14.1 H 9.6-11.6 SEC Prothromb Time International Ratio 1.29 H 0.85-1.15 Diagnostics / Radiology: 2D echocardiogram on 01/05/2025 Conclusion The left ventricle is normal size. LVEF is 60-65%. Indeterminate diastolic dysfunction. The right ventricle is normal size. The right ventricular systolic function is normal. The left atrium size is normal. The right atrium size is normal. The aortic valve is trileaflet and opens well. Right coronary cusp leaflet appears to have a vegetation. IVC is dilated and collapses >50% with inspiration. There is no pericardial effusion. Impression and Plan: Hypodense echogenic mobile vegetation to the right coronary cusp leaflet concerning for vegetation Elevated Troponin Sepsis Pyelonephritis Group A strep Acute renal failure Cholelithiasis Electrolyte derangement Hypoalbuminemia HTN HLD NSTEMI in the setting of uncontrolled hypertension in 2016 CAD s/p stent to the LAD Probable underlying sleep apnea Alcohol and cocaine abuse Contraindication to beta parish use due to active cocaine use Hypodense echogenic mobile vegetation to the right coronary cusp leaflet -Once platelet count is greater than 50K/uL, we will proceed with a DRAKE Elevated Troponin Troponin 185, 171, 143, 120 in the setting of sepsis -No further cardiac work-up indicated JAXON ROBLES Jan 05, 2025 16:56 EVANS HILARIO MD Jan 05, 2025 18:19
[2025-01-05] MEDS: dexaMETHasone SOD PHOSPHATE 4 MG/ML 1ML VIAL IVP ONE (17:27)
--- NOTE | 2025-01-05 17:55 | NUR ---
platelet transfusion complete, no reaction or complications during transfusion patient resting in bed, family at bedside, call light in reach
[2025-01-05 20:36] LABS: ALBUMIN 1.9 g/dL (3.5-5.0); BILIRUBIN,TOTAL 5.9 mg/dL (0.2-1.0); CREATININE 3.9 mg/dL (0.5-1.3); POTASSIUM 3.4 mmol/L (3.5-5.1); TOTAL PROTEIN, SERUM 6.5 g/dL (6.0-8.3)
[2025-01-05] MEDS: PoTASSium chloRIDE 20MEQ ER 20 MEQ ERTAB PO PRN (22:15)
[2025-01-06] VITALS (17 sets, daily range): BP systolic 135–160; BP diastolic 79–120; PULSE 67–83; RESP 9–40; TEMP 97.5; O2SAT 97–99
--- NOTE | 2025-01-06 07:29 | PN ---
[facility] CARDIOLOGY PROGRESS NOTE Date Patient Seen: Jan 06, 2025 Time of Visit: 07:27 Interval History: [Pending platelets for today ] Physical Examination: GENERAL: [No acute distress.] HEAD: [Normal with no signs of head trauma.] EYES: [PERRLA, EOMI, conjunctiva and sclera normal.] ENT: [Hearing grossly intact, normal oropharynx.] NECK: [Supple without JVD. There is no tenderness, lymphadenopathy, or masses. No thyromegaly. Normal carotid upstrokes without bruits.] LUNGS: [Clear breath sounds bilaterally. There are right basilar rales one third of the way up the chest. No wheezes, or rhonchi.] HEART: [Normal rate and rhythm. Normal S1 and S2 without mumurs, gallop or rub.] VASC: [Peripheral pulses +2 bilaterally.] ABD: [Bowel sounds normal, soft, nontender, no masses, no organomegaly. No audible bruits.] : [Not examined] LYMPH: [No lymphadenopathy noted.] EXT: [No clubbing, cyanosis or edema.] SKIN: [No rashes or lesions noted.] NEURO: [Awake, alert, and oriented x3. No focal sensory or strength deficits noted.] Laboratory: [ ] Hematology Labs: Test 01/05/25 07:34 01/05/25 04:23 01/04/25 23:22 Range/Units White Blood Count 13.1 H 4.8-10.8 K/uL Red Blood Count 4.61 4.50-6.20 MIL/uL Hemoglobin 15.0 14.0-18.0 g/dL Hematocrit 40.5 L 42-54 % Mean Corpuscular Volume 87.9 79-99 fL Mean Corpuscular Hemoglobin 32.5 27.0-33.0 pg Mean Corpuscular Hemoglobin Concent 37.0 H 32.0-36.0 g/dL Red Cell Distribution Width 12.8 11.0-15.5 % Platelet Count 21 L 130-400 K/uL Mean Platelet Volume 7.5-10.5 fL Nucleated Red Blood Cells 0.0 0.0-0.19 % Immature Granulocyte % (Auto) 1.4 H 0-1 % Neutrophils (%) (Auto) 87.5 H 40.0-77.0 % Lymphocytes (%) (Auto) 3.0 L 21.0-51.0 % Monocytes (%) (Auto) 7.5 3.0-13.0 % Eosinophils (%) (Auto) 0.1 0.0-8.0 % Basophils (%) (Auto) 0.5 0.0-5.0 % Neutrophils # (Auto) 11.5 H 1.8-7.7 K/uL Lymphocytes # (Auto) 0.4 L 1.0-4.8 K/uL Monocytes # (Auto) 1.0 0.1-1.0 K/uL Eosinophils # (Auto) 0.01 0.00-0.70 K/uL Basophils # (Auto) 0.06 0.00-0.20 K/uL Absolute Immature Granulocyte (auto 0.19 0-1 K/uL White Cell Morphology Comment See comments Platelet Morphology Comment See comments Red Blood Cell Morphology ANISO 1+ Chemistry Labs: Test 01/05/25 20:36 01/05/25 20:13 01/05/25 15:31 01/05/25 09:58 Range/Units Whole Blood Glucose 297 H 70-110 MG/DL Bedside Glucose Comment Notified Nurse Sodium Level 121 L 136-145 mmol/L Potassium Level 3.4 L 3.5-5.1 mmol/L Chloride Level 88 *L 101-111 mmol/L Carbon Dioxide Level 19 L 21-32 mmol/L Blood Urea Nitrogen 77 *H 7-18 mg/dL Creatinine 3.9 H 0.5-1.3 mg/dL Glomerular Filtration Rate Calc 19 >90 mL/min Random Glucose 259 H 70-105 mg/dL Total Calcium 6.8 L 8.5-10.1 mg/dL Total Bilirubin 5.9 H 0.2-1.0 mg/dL Aspartate Amino Transf (AST/SGOT) 76 H 10-37 U/L Alanine Aminotransferase (ALT/SGPT) 29 12-78 U/L Alkaline Phosphatase 85 50-136 U/L Total Protein 6.5 6.0-8.3 g/dL Albumin 1.9 L 3.5-5.0 g/dL Troponin I High Sensitivity 120 *H 4-75 ng/L Magnesium Level 2.30 1.80-2.40 mg/dL Amylase Level 40 25-115 U/L Lipase 89 H 16-77 U/L Test 01/05/25 07:34 01/05/25 04:23 01/05/25 00:40 01/04/25 23:35 Range/Units Phosphorus Level 1.8 L 2.5-4.9 mg/dL Lactic Acid Level 2.4 0.8-2.5 mmol/L Hemoglobin A1c 8.5 H 4.0-6.0 % Estimated Average Glucose (eAG) 197 H 70-126 mg/dL Whole Blood Ketones Quantitative 0.5 0.0-0.6 mmol/L Procalcitonin 36.78 H 0.05-0.5 ng/mL Thyroid Stimulating Hormone (TSH) 0.39 0.36-3.74 uIU/mL Serum Osmolality 275 L 278-305 mOsm/kg Test 01/04/25 22:56 Range/Units Total Creatine Kinase 195 # 21-232 U/L B-Type Natriuretic Peptide 135 H 0-100 pg/mL Coagulation Labs: Test 01/05/25 07:34 Range/Units Prothrombin Time 14.1 H 9.6-11.6 SEC Prothromb Time International Ratio 1.29 H 0.85-1.15 Diagnostics / Radiology: [Copy/Paste Echos/Imaging Report here] Impression and Plan: [ Hypodense echogenic mobile vegetation to the right coronary cusp leaflet concerning for vegetation Elevated Troponin Sepsis Pyelonephritis Group A strep Acute renal failure Cholelithiasis Electrolyte derangement Hypoalbuminemia HTN HLD NSTEMI in the setting of uncontrolled hypertension in 2016 CAD s/p stent to the LAD Probable underlying sleep apnea Alcohol and cocaine abuse Contraindication to beta parish use due to active cocaine use Hypodense echogenic mobile vegetation to the right coronary cusp leaflet -Once platelet count is greater than 50K/uL, we will proceed with a DRAKE -Dr Quinn is following for thrombocytopenia, will monitor response of platelet count ( Patient to receive 1 unit of single donor platelet. Premedication with dexamethasone 10 mg and Benadryl 25 mg) Elevated Troponin Troponin 185, 171, 143, 120 in the setting of sepsis -No further cardiac work-up indicated] EVANS FLORES MD Jan 06, 2025 07:29
[2025-01-06 08:08] LABS: HEMATOCRIT 39.1 % (42-54); MEAN CORPUSCULAR HGB CONC 36.8 g/dL (32.0-36.0); MEAN CORPUSCULAR VOLUME 86.9 fL (79-99); RED BLOOD CELL COUNT(AUTO) 4.5 MIL/uL (4.50-6.20); RED CELL DISTRIBUTION WIDTH 12.7 % (11.0-15.5); WHITE BLOOD COUNT (AUTO) 10.5 K/uL (4.8-10.8)
[2025-01-06 08:23] LABS: ALBUMIN 1.7 g/dL (3.5-5.0); BILIRUBIN,TOTAL 4.9 mg/dL (0.2-1.0); CREATININE 3.9 mg/dL (0.5-1.3); MAGNESIUM 2.7 mg/dL (1.80-2.40); POTASSIUM 3.8 mmol/L (3.5-5.1)
--- NOTE | 2025-01-06 08:30 | NUR ---
RECEIVED CRITICAL LAB RESULTS. PAGED HOSPITALIST,AWAITING RESPONSE.
--- NOTE | 2025-01-06 09:56 | PN ---
[facility] PROGRESS NOTE Date of Service: Jan 06, 2025 Time of Service: 09:55 SUBJECTIVE: [ ] The patient has been seen and examined at bedside, no acute events overnight, the patient is comfortable, cooperating well, alert oriented x3, he is on a CIWA protocol, not combative. BP 123/70, rest of vital signs unremarkable. Patient received transfusion of 1 unit of platelet, platelet count improved to 27, per demonstrator electric gas appliances, likely due to splenomegaly. Echocardiogram reviewed, hypodense echogenic mobile vegetation to right coronary cusp leaflet, per cardiology once platelet count is greater than 50 1000 we will proceed with a a DRAKE. The pat ient also with a elevated blood sugar, continue insulin sliding scale, add insulin glargine 20 units subcutaneously at bedtime. Continue the patient on broad-spectrum IV antibiotics, continue to trend WBC in a.m.. REVIEW OF SYSTEMS CONSTITUTIONAL: Denies fevers, chills, or night sweats. No unintentional weight loss reported. NEUROLOGICAL: Denies headache, amaurosis fugax, motor weakness, sensory deficit, vertigo/spinning sensation, gait abnormalities, or tremors. ENT: No hearing loss, otalgia, otorrhea, rhinitis, rhinorrhea, hoarseness, or sore throat. CARDIOVASCULAR: Denies any exertional angina, dyspnea on exertion, orthopnea, paroxysmal nocturnal dyspnea, palpitations, life-threatening arrhythmias, claudication. PULMONARY: Denies any shortness of breath, cough, phlegm/sputum, hemoptysis, pleuritic chest pain. SLEEP: Denies morning headaches, daytime somnolence or napping. Denies difficulty falling asleep, staying asleep, waking from sleep. Denies knowledge of snoring. GASTROINTESTINAL: Denies any type of dysphagia to either liquids or solids. Denies nausea, vomiting, pyrosis, early satiety, abdominal pain, diarrhea, constipation, or changes in stool consistency or caliber. Denies coffee-ground emesis, hematemesis, hematochezia, or melanotic stools. GENITOURINARY: Denies frequency, urgency, nocturia, hematuria or incontinence (Storage/Irritative symptoms.) Low urinary stream, straining to void, urinary intermittency or hesitancy, splitting of the voiding stream, terminal dribbling. ENDOCRINOLOGIC: Denies polyuria, polydipsia, polyphagia or heat/cold intolerances. HEMATOLOGIC: Denies thrombophilia/previous clots, or coagulopathy/bleeding disorders. ONCOLOGIC: Denies personal history of malignancy. DERMATOLOGIC: Denies rashes or pruritus. PSYCHIATRIC: Denies any suicidal or homicidal ideation. Denies hallucinations. PHYSICAL EXAM GENERAL APPEARANCE: The patient is awake, alert, and oriented, in no acute cardiopulmonary distress. NEUROLOGICAL: Cranial nerves II-XII grossly intact. Motor is 5/5 in bilateral upper and lower extremities proximal to distal. No sensory deficits. HEENT: Face is symmetric. Pupils are equal and reactive. Extraocular movements are intact. NECK: Supple. No JVD. No thyromegaly. No submental, submandibular, pre- /postauricular, occipital or supraclavicular lymphadenopathy. CHEST: Normal chest expansion. No Telemetry. LUNGS: Absence of any rales, rhonchi or any wheezing. CARDIOVASCULAR: Regular. S1 and S2 normal. No appreciable rubs, murmurs or gallops. ABDOMEN: Soft, nontender, and nondistended. There is no rebound, voluntary guarding, or rigidity. : Deferred. No Ortega. EXTREMITIES: Non-edematous and not cyanotic. No clubbing. Good capillary refill. SKIN: No skin breakdown. Vital Signs (last 8hr) Date Time Temp Pulse Resp B/P (MAP) Pulse Ox O2 Delivery O2 Flow Rate FiO2 01/06/25 08:00 97.7 77 18 123/70 98 Room Air* 0 21 01/06/25 06:38 18 123/70 98 Room Air* 0 21 01/06/25 05:07 97.7 86 18 148/98 100 Room Air* 0 21 01/06/25 03:15 82 20 137/82 97 Room Air* 0 21 LABS: Laboratory: Test 01/06/25 08:50 01/06/25 07:36 01/05/25 20:36 01/05/25 15:31 Range/Units Whole Blood Glucose 482 #*H 70-110 MG/DL White Blood Count 10.5 4.8-10.8 K/uL Red Blood Count 4.50 4.50-6.20 MIL/uL Hemoglobin 14.4 14.0-18.0 g/dL Hematocrit 39.1 L 42-54 % Mean Corpuscular Volume 86.9 79-99 fL Mean Corpuscular Hemoglobin 32.0 27.0-33.0 pg Mean Corpuscular Hemoglobin Concent 36.8 H 32.0-36.0 g/dL Red Cell Distribution Width 12.7 11.0-15.5 % Platelet Count 27 #L 130-400 K/uL Mean Platelet Volume 12.9 H 7.5-10.5 fL Nucleated Red Blood Cells 0.0 0.0-0.19 % Sodium Level 123 L 136-145 mmol/L Potassium Level 3.8 3.5-5.1 mmol/L Chloride Level 90 *L 101-111 mmol/L Carbon Dioxide Level 17 L 21-32 mmol/L Blood Urea Nitrogen 93 *H 7-18 mg/dL Creatinine 3.9 H 0.5-1.3 mg/dL Glomerular Filtration Rate Calc 19 >90 mL/min Random Glucose 466 #*H 70-105 mg/dL Total Calcium 6.8 L 8.5-10.1 mg/dL Magnesium Level 2.70 H 1.80-2.40 mg/dL Total Bilirubin 4.9 H 0.2-1.0 mg/dL Aspartate Amino Transf (AST/SGOT) 77 H 10-37 U/L Alanine Aminotransferase (ALT/SGPT) 33 12-78 U/L Alkaline Phosphatase 91 50-136 U/L Total Protein 6.0 6.0-8.3 g/dL Albumin 1.7 L 3.5-5.0 g/dL Bedside Glucose Comment Notified Nurse Troponin I High Sensitivity 120 *H 4-75 ng/L Test 01/05/25 14:31 01/05/25 10:04 01/05/25 09:58 01/05/25 07:34 Range/Units Urine Color DARK-YELLOW YELLOW Urine Appearance TURBID CLEAR Urine pH 5.5 5.0-8.0 Urine Specific [place] 1.017 1.001-1.031 Urine Protein 70 H NEGATIVE mg/dL Urine Glucose (UA) 200 H NEGATIVE mg/dL Urine Ketones NEGATIVE NEGATIVE mg/dL Urine Occult Blood LARGE H NEGATIVE Urine Nitrate NEGATIVE NEGATIVE Urine Bilirubin 1 H NEGATIVE mg/dL Urine Urobilinogen 4.0 H 0.2-1.0 mg/dL Urine Leukocyte Esterase 500 H NEGATIVE Charlie/uL Urine RBC >100 H 0-1 /HPF Urine WBC 11-25 H 0-1 /HPF Urine WBC Clumps (Auto) RARE 0-1 /HPF Urine Squamous Epithelial Cells RARE 0-2 /HPF Urine Non-Squamous Epithelial Cells 2 0-2 /HPF Urine Other Crystals (Auto) 13 None Seen /HPF Urine Bacteria FEW None Seen /HPF Urine Hyaline Casts 2-5 H 0-1 /LPF /LPF Urine Granular Casts (Auto) 2-5 H None Seen /LPF Urine Yeast FEW None Seen /HPF Urine Yeast with Hyphae RARE None Seen /HPF Urine Random Creatinine 99.83 30-135 mg/dL Urine Random Total Protein 208.3 H 0-11.9 mg/dL Blood Gas Specimen Type Arterial Arterial Blood pH 7.469 H 7.350-7.450 Arterial Blood Partial Pressure CO2 25 L 35-48 mmHg Arterial Blood Partial Pressure O2 80.7 L 83.0-108.0 mmHg Arterial Blood HCO3 17.5 L 21.0-28.0 mmol/L Arterial Blood Oxygen Saturation 96.7 94.0-98.0 % Arterial Blood Base Excess -4.2 L -2.0-3.0 mmol/L Blood Gas Temperature 37.0 35.5-37.0 CELSIUS Blood Gas Vent Mode RA ROOM AIR FiO2 21.0 % Blood Gas Specimen Comment RR,NISHA Amylase Level 40 25-115 U/L Lipase 89 H 16-77 U/L Prothrombin Time 14.1 H 9.6-11.6 SEC Prothromb Time International Ratio 1.29 H 0.85-1.15 Phosphorus Level 1.8 L 2.5-4.9 mg/dL Test 01/05/25 04:23 01/05/25 00:40 01/04/25 23:37 01/04/25 23:35 Range/Units Immature Granulocyte % (Auto) 1.4 H 0-1 % Neutrophils (%) (Auto) 87.5 H 40.0-77.0 % Lymphocytes (%) (Auto) 3.0 L 21.0-51.0 % Monocytes (%) (Auto) 7.5 3.0-13.0 % Eosinophils (%) (Auto) 0.1 0.0-8.0 % Basophils (%) (Auto) 0.5 0.0-5.0 % Neutrophils # (Auto) 11.5 H 1.8-7.7 K/uL Lymphocytes # (Auto) 0.4 L 1.0-4.8 K/uL Monocytes # (Auto) 1.0 0.1-1.0 K/uL Eosinophils # (Auto) 0.01 0.00-0.70 K/uL Basophils # (Auto) 0.06 0.00-0.20 K/uL Absolute Immature Granulocyte (auto 0.19 0-1 K/uL Lactic Acid Level 2.4 0.8-2.5 mmol/L Hemoglobin A1c 8.5 H 4.0-6.0 % Estimated Average Glucose (eAG) 197 H 70-126 mg/dL Whole Blood Ketones Quantitative 0.5 0.0-0.6 mmol/L Procalcitonin 36.78 H 0.05-0.5 ng/mL Thyroid Stimulating Hormone (TSH) 0.39 0.36-3.74 uIU/mL Influenza Type A Antigen Negative For Type A NEGATIVE Influenza Type B Antigen Negative For Type B NEGATIVE SARS-CoV-2 Antigen (Rapid) PRESUMPTIVE NEGATIVE NEGATIVE Group A Streptococcus Rapid positive *A NEGATIVE Urine Amorphous Crystals (Auto) RARE None Seen /LPF Urine Osmolality 333 50-1200 mOsm/kg Urine Random Sodium 15 L 40-220 mmol/l Serum Osmolality 275 L 278-305 mOsm/kg Urine Opiates Screen NEGATIVE NEGATIVE Urine Barbiturates Screen NEGATIVE NEGATIVE Urine Phencyclidine Screen NEGATIVE NEGATIVE Urine Amphetamines Screen NEGATIVE NEGATIVE Urine Benzodiazepines Screen NEGATIVE NEGATIVE Urine Cocaine Screen POSITIVE H NEGATIVE Urine Marijuana (THC) Screen NEGATIVE NEGATIVE Test 01/04/25 23:22 01/04/25 22:56 Range/Units White Cell Morphology Comment See comments Platelet Morphology Comment See comments Red Blood Cell Morphology ANISO 1+ Total Creatine Kinase 195 # 21-232 U/L B-Type Natriuretic Peptide 135 H 0-100 pg/mL Current Medications Medications (Trade) Dose Ordered Sig/Asya Route PRN Reason Start Time Stop Time Status Last Admin Dose Admin Acetaminophen (TYLenol 325MG TAB) 650 mg Q6H PRN PO TEMPERATURE GREATER THAN 101.5 01/05/25 02:30 02/04/25 02:29 Aspirin (Aspirin 81mg Chew Tab) 81 mg DAILY PO 01/05/25 09:00 01/05/25 09:53 DC Benzocaine (Cepacol Sore Throat Lozenge) 1 each Q4H PRN MM SORE THROAT 01/05/25 02:30 02/04/25 02:29 Chlordiazepoxide HCl (LIBrium 25 MG CAP) 25 mg Q8H PO 01/05/25 02:30 01/12/25 02:29 01/06/25 02:55 25 MG Dextrose (D50w) 50 ml AD PRN IV HYPOGLYCEMIA PROTOCOL 01/05/25 10:00 02/04/25 09:59 Doxycycline Hyclate 250 ml @ 125 mls/hr Q12H IV 01/05/25 10:00 01/15/25 09:59 01/06/25 09:30 125 MLS/HR Glucagon (Glucagon 1mg Kit) 1 mg AD PRN IM HYPOGLYCEMIA PROTOCOL 01/05/25 10:00 02/04/25 09:59 Hydralazine HCl (APRESOLine 20MG INJ) 5 mg Q6H PRN IV For:SBP above 160;DBP above 90 01/05/25 14:30 02/04/25 14:29 Hydralazine HCl (APRESOLine 20MG INJ) 10 mg Q6H PRN IV For:SBP above 160;DBP above 90 01/05/25 02:30 01/05/25 09:53 DC Insulin Glargine (LANtus 100 UNITS/ML 10 ML VIAL) 20 units HS SQ 01/06/25 21:00 02/05/25 20:59 Insulin Human Regular (humuLIN R 100 UNIT/ML 3ML) INSULIN SLIDING SCAL... ACHS SQ 01/05/25 07:30 01/05/25 09:57 DC 01/05/25 07:59 16 UNIT Insulin Human Regular (humuLIN R 100 UNIT/ML 3ML) INSULIN SLIDING SCAL... ACHS SQ 01/05/25 11:30 02/04/25 11:29 01/06/25 09:12 8 UNIT Lactated Ringer's 1,000 ml @ 100 mls/hr Q10H IV 01/05/25 02:30 01/05/25 09:51 DC 01/05/25 02:30 100 MLS/HR Lorazepam (AtiVAN) 1 mg Q4H PRN IVP ALCOHOL WITHDRAWAL PROTOCOL 01/05/25 02:30 01/12/25 02:29 Magnesium Sulfate 50 ml @ 0 mls/hr PROTOCOL PRN IV h 01/05/25 02:30 02/04/25 02:29 01/05/25 03:24 25 MLS/HR Morphine Sulfate (morPHINE 2MG SYG) 2 mg Q4H PRN IVP SEVERE PAIN (7-10) 01/05/25 02:30 01/12/25 02:29 Nicotine (Nicoderm) 21 mg DAILY TD 01/05/25 09:00 02/04/25 08:59 01/06/25 09:27 21 MG Nitroglycerin (Nitrostat) 0.4 mg AD PRN SL CHEST PAIN 01/05/25 02:30 02/04/25 02:29 Ondansetron HCl (zoFRAN 4MG INJ) 4 mg Q6H PRN IV NAUSEA/VOMITING 01/05/25 02:30 02/04/25 02:29 Pantoprazole Sodium (PROTonix 40MG TAB) 40 mg DAILY PO 01/05/25 09:00 02/04/25 08:59 01/06/25 09:28 40 MG Pharmacy Profile Note (Pharmacy Communication) 1 each PROTOCOL PRN MISC ETOH Withdrawal Score changes 01/05/25 02:30 01/12/25 02:29 Piperacillin Sod/ Tazobactam Sod (Zosyn 3.375gm+NS 50ml) 3.375 gm Q12H IV 01/05/25 02:30 01/15/25 02:29 01/06/25 02:55 3.375 GM Potassium Phosphate 250 ml @ 42 mls/hr PROTOCOL PRN IV PROTOCOL 01/05/25 10:00 02/04/25 09:59 Potassium Chloride 100 ml @ 100 mls/hr AD PRN IV POTASSIUM PROTOCOL 01/05/25 02:30 02/04/25 02:29 Potassium Chloride (K-Dur 10meq Sr Tab) 10 meq AD PRN PO POTASSIUM PROTOCOL 01/06/25 09:30 02/04/25 02:29 Potassium Chloride (K-Dur/Klor-Con 20meq) 10 meq AD PRN PO POTASSIUM PROTOCOL 01/05/25 02:30 01/06/25 09:12 DC 01/05/25 22:15 10 MEQ Potassium Chloride (KCl 10% Elixir 20meq/15ml) 10 meq AD PRN PO POTASSIUM PROTOCOL 01/05/25 02:30 02/04/25 02:29 Sodium Chloride 1,000 ml @ 150 mls/hr Q6H40M IV 01/05/25 10:00 02/04/25 09:59 01/06/25 07:16 150 MLS/HR DIAGNOSTICS / RADIOLOGY: [ ] ASSESSMENT: [ ] PLAN: [ ] MAHOGANY CARBAJAL MD Jan 06, 2025 09:56
--- NOTE | 2025-01-06 10:11 | PN ---
FOLLOWUP PROGRESS NOTE SUBJECTIVE: A 44-year-old male who presented to the hospital with acute renal failure. The patient with gram-positive bacteremia and remains on the antibiotics. The patient's workup is consistent with significant renal dysfunction. The patient with undiagnosed diabetes mellitus and he is being seen as a followup visit for all of the above. REVIEW OF SYSTEMS: GENERAL: He is feeling somewhat improved overnight. HEENT: No change in vision. No change in hearing. CARDIOVASCULAR: There is no current chest pain or palpitations. PULMONARY: He denies any shortness of breath. GASTROINTESTINAL: The patient is tolerating a diet. MUSCULOSKELETAL: Complains of weakness. PHYSICAL EXAMINATION:. VITAL SIGNS: Blood pressure is 123/70, pulse in the 70s. GENERAL: He is a chronically ill male, much older than appearing. HEENT: Atraumatic. Pupils equal, roving to light. Oropharynx is without exudate. Nares clear. NECK: There is no JVP. There is no thyromegaly, no mass. CARDIOVASCULAR: Regular. There is no S3, S4 gallop. LUNGS: Coarse with equal thoracic movement. ABDOMEN: Soft, nondistended, nontender. EXTREMITIES: Reveal no clubbing, no cyanosis. NEUROLOGIC: He is awake. He is alert. LABORATORY DATA: Hemoglobin 14, hematocrit 39. Sodium 123, potassium 3.8, chloride 90, bicarbonate 17, BUN 93, creatinine 3.9. IMPRESSION: * Acute on chronic renal failure. * Gram-positive bacteremia. * Diabetes mellitus. * Electrolyte abnormalities. PLAN: The patient's serum sodium continues to slowly improve. The patient with significant proteinuria on urinalysis consistent with diabetic nephropathy. The patient continues with the IV hydration. There is no acute need for any form of renal replacement therapy. He does remain on the antibiotics and we will continue to follow closely. All labs can be repeated in the morning. TID: [id number] RECEIPT: [id number]
--- NOTE | 2025-01-06 13:17 | PN ---
Mr. Jin is a 44-year-old male that was seen and examined today on 01/05/2025. Patient is a good historian and personal health. Patient is a good historian and personal health. Patient states that he came to the emergency department at the behest of his daughter. Patient's chief complaint is weakness. Onset was Thursday12/30/2024. Location is to entire body. Duration is constant. Character is described as, " today Orion needed help to get out of the sofa and out of the shower. I also fell down once. "There was no alleviating factors. Symptoms are aggravated with physical activity. Patient denies any associated chest pain or shortness and breath. I was consulted because of leukocytosis and severe thrombocytopenia. This patient have have any alcoholism. Patient also on cocaine. It seems the patient may be have pyelonephritis by CT scan with the patient was started on antibiotic treatment. Patient received 1 unit of single donor platelet. But the platelet count did not improve at all. This is consistent with ITP. Exam General Appearance: Alert, Oriented X3, Cooperative, moderate distress HEENT: Atraumatic, PERRLA, EOMI, Other (Mucous membranes dry and cracked) Respiratory: Clear to auscultation, Normal air movement, NL respiratory effort Cardiovascular: Normal S1, Normal S2, Other (Tachycardia) Abdominal: Normal bowel sounds, Soft, No tenderness Extremities: No edema Skin: No significant lesion Neuro: Normal gait, Normal speech, Strength at 5/5 X4 ext, Sensation intact, Cranial nerves 3-12 NL Psych/Mental Status: Mental status NL, Mood NL, Thoughts/Content NL Assessment 1. Thrombocytopenia. Most likely due to ITP especially with the platelet transfusion did not improve the platelet at all 2. Acute on chronic renal failure 4. Severe sepsis 5. Leukocytosis 6. Cocaine abuse 7. Alcohol abuse 8. Hepatomegaly 9. Splenomegaly 10. Morbid obesity Plan 1. Yesterday patient received 1 unit platelet transfusion did not improve the platelet at all. This is consistent with ITP. This patient to be started on dexamethasone 40 mg IV daily. 2. There was hypersegmented neutrophils. This patient to Continue on folic acid 1 mg p.o. daily and vitamin B12 1000 mcg p.o. daily. 3. This patient thrombocytopenia is multifactorial including ITP and splenomegaly. 4. Please do not transfuse any platelet at this time unless this patient is bleeding or platelet count below 10K 5. Patient to have CBC tomorrow. 6. Continue care as per primary Vitals/Labs Vital Signs Date Time Temp Pulse Resp B/P (MAP) Pulse Ox O2 Delivery O2 Flow Rate FiO2 01/06/25 12:29 97.5 79 26 144/63 98 Room Air* 0 21 Laboratory Tests 01/05/25 14:45 01/05/25 20:13 01/06/25 07:36 Medications Current Medications Sodium Chloride 1,000 ml @ 125 mls/hr ONCE ONCE IV Last administered on 01/05/25at 00:13; Start 01/04/25 at 23:00; Stop 01/05/25 at 06:59; Status DC Aspirin 81 mg ONCE ONCE PO Last administered on 01/05/25at 00:14; Start 01/04/25 at 23:00; Stop 01/04/25 at 23:01; Status DC Ondansetron HCl 4 mg ONCE ONCE IVP Last administered on 01/05/25at 00:13; Start 01/04/25 at 23:00; Stop 01/04/25 at 23:01; Status DC Potassium Chloride 100 ml @ 50 mls/hr ONCE ONCE IV Last administered on 01/05/25at 00:13; Start 01/05/25 at 00:00; Stop 01/05/25 at 01:59; Status DC Potassium Chloride 100 ml @ 50 mls/hr ONCE ONCE IV Last administered on 01/05/25at 03:12; Start 01/05/25 at 00:00; Stop 01/05/25 at 01:59; Status DC Thiamine HCl 100 mg ONCE ONCE IVP Last administered on 01/05/25at 01:01; Start 01/05/25 at 00:00; Stop 01/05/25 at 00:01; Status DC Acetaminophen 500 mg STK-MED ONCE .ROUTE; Start 01/05/25 at 00:28; Stop 01/05/25 at 00:28; Status DC Cefepime HCl 1 gm ONCE ONCE IVPB Last administered on 01/05/25at 01:01; Start 01/05/25 at 01:00; Stop 01/05/25 at 01:02; Status DC Vancomycin HCl 750 mg ONCE ONCE IVPB Last administered on 01/05/25at 02:12; Start 01/05/25 at 01:00; Stop 01/05/25 at 01:02; Status DC Sodium Chloride 250 ml ONCE ONCE IVPB Last administered on 01/05/25at 02:12; Start 01/05/25 at 01:00; Stop 01/05/25 at 01:02; Status DC Acetaminophen 1,000 mg ONCE ONCE PO Last administered on 01/05/25at 00:30; Start 01/05/25 at 01:00; Stop 01/05/25 at 01:02; Status DC Aspirin 81 mg DAILY PO; Start 01/05/25 at 09:00; Stop 01/05/25 at 09:53; Status DC Nitroglycerin 0.4 mg AD PRN SL; Start 01/05/25 at 02:30; Stop 02/04/25 at 02:29 Aspirin 162 mg ONCE ONCE PO Last administered on 01/05/25at 03:06; Start 01/05/25 at 02:30; Stop 01/05/25 at 02:31; Status DC Insulin Human Regular INSULIN SLIDING SCAL... ACHS SQ Last administered on 01/05/25at 07:59; Start 01/05/25 at 07:30; Stop 01/05/25 at 09:57; Status DC Lactated Ringer's 3,429 ml @ 1,143 mls/hr ONCE ONCE IV Last administered on 01/05/25at 03:12; Start 01/05/25 at 02:30; Stop 01/05/25 at 05:29; Status DC Piperacillin Sod/ Tazobactam Sod 3.375 gm Q12H IV Last administered on 01/06/25at 02:55; Start 01/05/25 at 02:30; Stop 01/15/25 at 02:29 Potassium Chloride 100 ml @ 100 mls/hr AD PRN IV; Start 01/05/25 at 02:30; Stop 02/04/25 at 02:29 Potassium Chloride 10 meq AD PRN PO; Start 01/05/25 at 02:30; Stop 02/04/25 at 02:29 Potassium Chloride 10 meq AD PRN PO Last administered on 01/05/25at 22:15; Start 01/05/25 at 02:30; Stop 01/06/25 at 09:12; Status DC Acetaminophen 650 mg Q6H PRN PO; Start 01/05/25 at 02:30; Stop 02/04/25 at 02:29 Pantoprazole Sodium 40 mg DAILY PO Last administered on 01/06/25at 09:28; Start 01/05/25 at 09:00; Stop 02/04/25 at 08:59 Ondansetron HCl 4 mg Q6H PRN IV; Start 01/05/25 at 02:30; Stop 02/04/25 at 02:29 Morphine Sulfate 2 mg Q4H PRN IVP; Start 01/05/25 at 02:30; Stop 01/12/25 at 02:29 Hydralazine HCl 10 mg Q6H PRN IV; Start 01/05/25 at 02:30; Stop 01/05/25 at 09:53; Status DC Benzocaine 1 each Q4H PRN MM; Start 01/05/25 at 02:30; Stop 02/04/25 at 02:29 Magnesium Sulfate 50 ml @ 0 mls/hr PROTOCOL PRN IV Last administered on 01/05/25at 03:24; Start 01/05/25 at 02:30; Stop 02/04/25 at 02:29 Lactated Ringer's 1,000 ml @ 100 mls/hr Q10H IV Last administered on 01/05/25at 02:30; Start 01/05/25 at 02:30; Stop 01/05/25 at 09:51; Status DC Chlordiazepoxide HCl 25 mg Q8H PO Last administered on 01/06/25at 09:59; Start 01/05/25 at 02:30; Stop 01/12/25 at 02:29 Lorazepam 1 mg Q4H PRN IVP; Start 01/05/25 at 02:30; Stop 01/12/25 at 02:29 Pharmacy Profile Note 1 each PROTOCOL PRN MISC; Start 01/05/25 at 02:30; Stop 01/12/25 at 02:29 Nicotine 21 mg DAILY TD Last administered on 01/06/25at 09:27; Start 01/05/25 at 09:00; Stop 02/04/25 at 08:59 Sodium Chloride 1,000 ml @ 150 mls/hr Q6H40M IV Last administered on 01/06/25at 07:16; Start 01/05/25 at 10:00; Stop 02/04/25 at 09:59 Potassium Phosphate 250 ml @ 42 mls/hr PROTOCOL PRN IV; Start 01/05/25 at 10:00; Stop 02/04/25 at 09:59 Hydralazine HCl 5 mg Q6H PRN IV; Start 01/05/25 at 14:30; Stop 02/04/25 at 14:29 Doxycycline Hyclate 250 ml @ 125 mls/hr Q12H IV Last administered on 01/06/25at 09:30; Start 01/05/25 at 10:00; Stop 01/15/25 at 09:59 Potassium Chloride 40 meq ONCE ONCE PO Last administered on 01/05/25at 10:25; Start 01/05/25 at 10:00; Stop 01/05/25 at 10:01; Status DC Potassium Chloride 100 ml @ 50 mls/hr ONCE ONCE IV Last administered on 01/05/25at 10:25; Start 01/05/25 at 10:00; Stop 01/05/25 at 11:59; Status DC Dextrose 50 ml AD PRN IV; Start 01/05/25 at 10:00; Stop 02/04/25 at 09:59 Glucagon 1 mg AD PRN IM; Start 01/05/25 at 10:00; Stop 02/04/25 at 09:59 Insulin Human Regular INSULIN SLIDING SCAL... ACHS SQ Last administered on 01/06/25at 11:50; Start 01/05/25 at 11:30; Stop 02/04/25 at 11:29 Dexamethasone Sodium Phosphate 10 mg ONCE ONCE IVP Last administered on 01/05/25at 17:27; Start 01/05/25 at 13:30; Stop 01/05/25 at 14:03; Status DC Insulin Glargine 20 units HS SQ; Start 01/06/25 at 21:00; Stop 02/05/25 at 20:59 Potassium Chloride 10 meq AD PRN PO; Start 01/06/25 at 09:30; Stop 02/04/25 at 02:29 LEOPOLDO AGUILAR MD Jan 06, 2025 13:17
[2025-01-06] MEDS ORDERED: COMPOUND IV MISC 1 EACH IVSOLN MISC PRN (13:30)
--- NOTE | 2025-01-06 14:05 | NUR ---
PT LEFT FOR HIDA SCAN
[2025-01-06 14:32] LABS: POTASSIUM 3.2 mmol/L (3.5-5.1)
--- NOTE | 2025-01-06 14:45 | NUR ---
CRITICAL LABS GLUCOSE 445 BUN 98
[2025-01-06] MEDS: PoTASSium chl 10% ELIXIR 20MEQ 20 MEQ/15 ML UDCUP PO PRN (16:23)
--- NOTE | 2025-01-06 16:51 | CONS ---
CONSULT NOTE: Consulting physician:Dr Summers Consulting service: General surgery Reason for consultation: Cholecystitis History of present illness: This 44-year-old male with a medical history listed most notably ND several years prior requiring stent placement he has been consulted to surgery after initially presenting to the hospital with concerns of generalized weakness. Upon initial workup patient's toxicology screen consistent with cocaine WBCs elevated now down to 10.5. In total bilirubin continually elevated today 4.9 which is slightly down from previous day of 5.9. CT and patient is noted to have cholelithiasis and surgical team consulted. At time of exam patient has just returned from HIDA scan. Patient reporting no abdominal pain. Patient currently NPO Medical history: Diabetes Hypertension Morbid obesity Alcohol and drug abuse Hyperlipidemia Surgical history: Review of systems: General: No Fever, No Chills, No Night Sweats, No Fatigue, No Malaise, No Appetite, No Other HEENT: No Head Aches, No Visual Changes, No Eye Pain, No Ear Pain, No Dysphasia, No Sinus Congestion, No Post Nasal Drip, No Sore Throat, No Other Pulmonary: No Dyspnea, No Cough, No Pleuritic Chest Pain, No Other Cardiovascular: No: Chest Pain, Palpitations, Orthopnea, Paroxysmal No Dyspnea, Edema, Lt Headedness, Other Gastrointestinal: No: Nausea, Vomiting, Diarrhea, Constipation, Melena, Hematochezia, Other Genitourinary: No Dysuria, No Frequency, No Incontinence, No Hematuria, No Retention, No Other Musculoskeletal: No: other, neck pain, shoulder pain, arm pain, back pain, hand pain, leg pain, foot pain Skin: No Urticaria, No Rash, No Other Neurological: No: Weakness, Numbness, Incoordination, Change in speech, Confusion, Seizures, Other Physical exam: General: Awake alert and oriented Heart: Regular rate and rhythm} Lungs: Clear to auscultation no distress Abdomen: [Soft, nontender, nondistended Assessment: This is a 44-year-old male with concerns of cholecystitis Plan: From surgical standpoint we will await HIDA scan findings No immediate surgical intervention planned at this time If HIDA scan consistent with cholecystitis patient will likely need cardiac clearance Nursing report any further acute events Patient to be allowed clear liquid diet today Dr. Hernandez to be updated in patient's status and surgical team to follow patient closely. Thank you IBRAHIMA RATLIFF Jr. CALE Jan 06, 2025 16:51
[2025-01-06] MEDS: INSULIN humuLIN R 100 UNIT/ML 3ML SQ SCH (17:17)
[2025-01-06 20:43] LABS: ABG OXYGEN SATURATION 88.7 % (94.0-98.0); BASE EXCESS,VENOUS BLOOD GAS -7.5 (-2.0-3.0); DEVICE COMMENT LB LAB RN IVONN; PCO2,VENOUS BLOOD GAS 24 (38-54); PH,VENOUS BLOOD GAS 7.408 (7.320-7.430); PO2,VENOUS BLOOD GAS 55.4 mmHg (23.0-48.0); VENT MODE, BG RA (ROOM AIR)
[2025-01-06] MEDS: dexaMETHasone 10MG/ML 1ML VIAL 40 MG in 0.9%NACL 50ML 50 ML IV SCH (20:47)
[2025-01-06] MEDS: INSULIN REGULAR, HUMAN 3ML 100 UNIT in 0.9%NACL 100ML 99 ML IV PRN (20:48)
[2025-01-06] MEDS ORDERED: INSULIN GLARgine 100 UNITS/ML 10 ML VIAL SQ SCH (21:00)
[2025-01-06] MEDS: DOXYCYCLINE 100MG+NS 250ML 250 ML IV SCH (21:32)
[2025-01-06] MEDS: INSULIN GLARgine 100 UNITS/ML 10 ML VIAL SQ SCH (21:33)
--- NOTE | 2025-01-06 21:33 | PN ---
[facility] PROGRESS NOTE Date Patient Seen: Jan 06, 2025 Time of Visit: 21:17 Supervising Physician: Dr. Inman Primary Care Physician: Cristiana PCP Outpatient Specialists: [ ] Inpatient Consults:Critical care, Hematology, cardiology and nephrology PROBLEM LIST: Severe sepsis and shock POA Urinary tract infection, POA Strep pharyngitis, POA Acute kidney injury, POA Hypokalemia, POA Hyponatremia, POA Thrombocytopenia, POA Uncontrolled Diabetes mellitius type2, POA HgA1C 8.5 Elevated troponin, POA suspected type II [place] Substance abuse, POA, cocaine/Marijuana Alcohol dependence, POA Tobacco dependence, POA Morbid obesity Noncompliance behavior INTERVAL HISTORY: 11/05/2025: At the time of my evaluation, the patient is in his assigned room. He is awake alert and afebrile. Respiratory barron the patient is maintaining optimal oxygenation and saturation on room air. On the monitor, the patient remains hemodynamically stable. He is feeding orally and denies any abdominal pain, nausea, vomiting or diarrhea. The patient continues to void spontaneously and on I's and O's, he maintains a -1050.0. On laboratory, the WBC count improved from 13.1 yesterday to 10.5 today. He continues on broad-spectrum antibiotic coverage currently on doxycycline and Zosyn. Also, the sodium count remains low but is slowly improving, potassium is low 3.2, chloride of 91, BUN of 98, creatinine of 4.0 and a GFR of 18. Blood glucose of remain elevated in the 400s. Blood cultures are currently showing Gram-positive cocci in clusters and urine culture showing Gram-negative rods. No new imaging for review. No other complaint. REVIEW OF SYSTEMS: 12 point ROS reviewed with patient. Pertinent positives mentioned above. Otherwise negative. PHYSICAL EXAM: GENERAL: alert, weak, awake oriented x 3 HEENT: EOMI, Sclera non icteric, moist mucosa NECK: Supple, no JVD, trachea midline LUNGS: Clear breath sounds bilaterally. No wheezes HEART: Regular rate and rhythm. Normal S1 and S2, without murmurs ABD: Abdomen soft, nontender. Bowel sounds present EXT: No clubbing cyanosis or edema NEURO: Alert and oriented to person, follows commands Vital Signs (last 8hr) Date Time Temp Pulse Resp B/P (MAP) Pulse Ox O2 Delivery O2 Flow Rate FiO2 01/06/25 16:25 97 Room Air* 0 21 01/06/25 16:00 97.5 83 16 144/94 97 Room Air 01/06/25 14:20 97.5 82 20 123/72 99 Room Air* 0 21 LABS: Hematology Labs: Test 01/06/25 07:36 01/05/25 04:23 01/04/25 23:22 Range/Units White Blood Count 10.5 4.8-10.8 K/uL Red Blood Count 4.50 4.50-6.20 MIL/uL Hemoglobin 14.4 14.0-18.0 g/dL Hematocrit 39.1 L 42-54 % Mean Corpuscular Volume 86.9 79-99 fL Mean Corpuscular Hemoglobin 32.0 27.0-33.0 pg Mean Corpuscular Hemoglobin Concent 36.8 H 32.0-36.0 g/dL Red Cell Distribution Width 12.7 11.0-15.5 % Platelet Count 27 #L 130-400 K/uL Mean Platelet Volume 12.9 H 7.5-10.5 fL Nucleated Red Blood Cells 0.0 0.0-0.19 % Immature Granulocyte % (Auto) 1.4 H 0-1 % Neutrophils (%) (Auto) 87.5 H 40.0-77.0 % Lymphocytes (%) (Auto) 3.0 L 21.0-51.0 % Monocytes (%) (Auto) 7.5 3.0-13.0 % Eosinophils (%) (Auto) 0.1 0.0-8.0 % Basophils (%) (Auto) 0.5 0.0-5.0 % Neutrophils # (Auto) 11.5 H 1.8-7.7 K/uL Lymphocytes # (Auto) 0.4 L 1.0-4.8 K/uL Monocytes # (Auto) 1.0 0.1-1.0 K/uL Eosinophils # (Auto) 0.01 0.00-0.70 K/uL Basophils # (Auto) 0.06 0.00-0.20 K/uL Absolute Immature Granulocyte (auto 0.19 0-1 K/uL White Cell Morphology Comment See comments Platelet Morphology Comment See comments Red Blood Cell Morphology ANISO 1+ Chemistry Labs: Test 01/06/25 20:16 01/06/25 13:52 01/06/25 07:36 01/05/25 15:31 Range/Units Whole Blood Glucose 441 *H 70-110 MG/DL Bedside Glucose Comment Notified Nurse Sodium Level 124 L 136-145 mmol/L Potassium Level 3.2 L 3.5-5.1 mmol/L Chloride Level 91 L 101-111 mmol/L Carbon Dioxide Level 18 L 21-32 mmol/L Blood Urea Nitrogen 98 *H 7-18 mg/dL Creatinine 4.0 H 0.5-1.3 mg/dL Glomerular Filtration Rate Calc 18 >90 mL/min Random Glucose 445 *H 70-105 mg/dL Whole Blood Ketones Quantitative 0.6 0.0-0.6 mmol/L Total Calcium 6.6 L 8.5-10.1 mg/dL Magnesium Level 2.70 H 1.80-2.40 mg/dL Total Bilirubin 4.9 H 0.2-1.0 mg/dL Aspartate Amino Transf (AST/SGOT) 77 H 10-37 U/L Alanine Aminotransferase (ALT/SGPT) 33 12-78 U/L Alkaline Phosphatase 91 50-136 U/L Total Protein 6.0 6.0-8.3 g/dL Albumin 1.7 L 3.5-5.0 g/dL Troponin I High Sensitivity 120 *H 4-75 ng/L Test 01/05/25 09:58 01/05/25 07:34 01/05/25 04:23 01/05/25 00:40 Range/Units Amylase Level 40 25-115 U/L Lipase 89 H 16-77 U/L Phosphorus Level 1.8 L 2.5-4.9 mg/dL Lactic Acid Level 2.4 0.8-2.5 mmol/L Hemoglobin A1c 8.5 H 4.0-6.0 % Estimated Average Glucose (eAG) 197 H 70-126 mg/dL Procalcitonin 36.78 H 0.05-0.5 ng/mL Thyroid Stimulating Hormone (TSH) 0.39 0.36-3.74 uIU/mL Test 01/04/25 23:35 01/04/25 22:56 Range/Units Serum Osmolality 275 L 278-305 mOsm/kg Total Creatine Kinase 195 # 21-232 U/L B-Type Natriuretic Peptide 135 H 0-100 pg/mL Coagulation Labs: Test 01/05/25 07:34 Range/Units Prothrombin Time 14.1 H 9.6-11.6 SEC Prothromb Time International Ratio 1.29 H 0.85-1.15 DIAGNOSTICS / RADIOLOGY RESULTS: [ ] PLAN 01/06/2025: For now, going to continue current management for the patient. We will provide oxygen supplementation and we will adjust as necessary. We will continue monitoring for arrhythmias. We will continue antibiotic therapy with IV doxycycline and Zosyn. We will follow the urine and blood culture results. Ketone level was ordered and results was 0.6. Insulin therapy was adjusted by the primary MD and we will continue to follow the blood glucose trend. If needs be, this will be further adjusted. The patient will continue with IV NS at 150 cc/hour and we will continue with potassium replacement. We will repeat surveillance labs in the morning. We will monitor the patient's progress and response to management. We will continue to provide general supportive care, GI and DVT prophylaxis. Further orders per attending MD and hospital course. NEURO: Minimize central acting medications as possible. Maintain fall precautions, adequate lighting during the day PULMONARY: Supplemental 02 as needed. Maintain aspiration precautions at all times CARDIOVASCULAR: Follow hemodynamics. Vital signs per facility protocol GI & NUTRITION: Continue with nutritional support. Continue stool softeners and laxatives as needed. KIDNEYS & ELECTROLYTES: Strict monitoring of intake, output and overall fluid balance. Avoid nephrotoxic medications to the extent possible. Medications to be dosed according to renal function. Monitor electrolytes and replace as needed ENDOCRINE: Maintain blood glucose between 100-180 at all times. Hypoglycemia protocol in place INFECTIOUS DISEASE: Trend temperature, WBC and procalcitonin level Follow cultures, deescalate antibiotics as soon as possible. Panculture if new onset fever ONCOLOGY/HEMATOLOGY/COAGULATION: Monitor for s/s of bleeding Monitor hemoglobin, coagulation studies as needed SKIN: Pressure ulcer prevention per facility protocol Specialty mattress ORTHO/REHAB: Continue PT/OT Prophylaxis: Continue GI and DVT prophylaxis Code Status: Full Resuscitation Disposition: TBD Other: Total patient care time exceeds 35 minutes excluding all procedures. RHEA ALICEA NP Jan 06, 2025 21:32
[2025-01-07] VITALS (53 sets, daily range): BP systolic 108–167; BP diastolic 55–113; PULSE 57–79; RESP 4–37; TEMP 94.5–98.5; O2SAT 97–99
[2025-01-07] MEDS: ZOSYN 3.375GM+NS 50ML 50 ML ONE (02:44)
[2025-01-07] MEDS: chlordiazePOXIDE HCL 25 MG CAP ONE (02:44)
[2025-01-07 08:21] LABS: BASOPHILS # (AUTO) 0.02 K/uL (0.00-0.20); BASOPHILS % (AUTO) 0.2 % (0.0-5.0); HEMATOCRIT 39.3 % (42-54); LYMPHOCYTES # (AUTO) 0.4 K/uL (1.0-4.8); LYMPHOCYTES % (AUTO) 3.9 % (21.0-51.0); MEAN CORPUSCULAR HEMOGLOBIN 32.4 pg (27.0-33.0); MEAN CORPUSCULAR HGB CONC 36.9 g/dL (32.0-36.0); MEAN CORPUSCULAR VOLUME 87.9 fL (79-99); MONOCYTES # (AUTO) 0.6 K/uL (0.1-1.0); MONOCYTES % (AUTO) 4.9 % (3.0-13.0); NEUTROPHILS # (AUTO) 10.1 K/uL (1.8-7.7); NEUTROPHILS % (AUTO) 90.1 % (40.0-77.0); PLATELET COUNT (AUTO) 41 K/uL (130-400); RED BLOOD CELL COUNT(AUTO) 4.47 MIL/uL (4.50-6.20); RED CELL DISTRIBUTION WIDTH 12.9 % (11.0-15.5); WHITE BLOOD COUNT (AUTO) 11.2 K/uL (4.8-10.8)
[2025-01-07 08:37] LABS: ALBUMIN 1.7 g/dL (3.5-5.0); BILIRUBIN,TOTAL 2.7 mg/dL (0.2-1.0); CREATININE 3.2 mg/dL (0.5-1.3); POTASSIUM 3.2 mmol/L (3.5-5.1); TOTAL PROTEIN, SERUM 6.2 g/dL (6.0-8.3)
[2025-01-07] MEDS ORDERED: dexaMETHasone SOD PHOSPHATE 4 MG/ML 1ML VIAL IV ONE (09:00)
[2025-01-07] MEDS: PoTASSium chloRIDE 20MEQ ER 20 MEQ ERTAB PO ONE (09:44)
--- NOTE | 2025-01-07 10:00 | NUR ---
paged due to K+ 3.2 pt with BRENDAN, and on insulin drip, per md hanson for low dose protocol. will see pt later today.
[2025-01-07] MEDS ORDERED: PoTASSium chloRIDE 20MEQ ER 20 MEQ ERTAB PO PRN (10:30)
[2025-01-07] MEDS: MULTIVITAMIN TABLET PO SCH (10:39)
[2025-01-07] MEDS: THIAMINE HCL 100 MG/ML 2ML VIAL IVP ONE (10:39)
[2025-01-07] MEDS: INSULIN GLARgine 100 UNITS/ML 10 ML VIAL SQ ONE (10:40)
--- NOTE | 2025-01-07 12:18 | PN ---
[facility] PROGRESS NOTE Date of Service: Jan 07, 2025 Time of Service: 12:02 SUBJECTIVE: [ ] The patient has been seen and examined at bedside, no acute events overnight, the patient is comfortable, cooperating well, alert oriented x3, he is on a CIWA protocol, not combative. BP 123/70, rest of vital signs unremarkable. Patient received transfusion of 1 unit of platelet, platelet count improved to 27, per car stereo installer, likely due to splenomegaly. Echocardiogram reviewed, hypodense echogenic mobile vegetation to right coronary cusp leaflet, per cardiology once platelet count is greater than 50 1000 we will proceed with a a DRAKE. The pat ient also with a elevated blood sugar, continue insulin sliding scale, add insulin glargine 20 units subcutaneously at bedtime. Continue the patient on broad-spectrum IV antibiotics, continue to trend WBC in a.m.. 01/07 patient is seen and examined at bedside, case discussed with the RN, patient upgraded last night to the ICU to start insulin drip as blood glucose pers istently greater than 400. Patient started on dexamethasone IV by car stereo installer do to ITP. Platelet count slightly better today at 41. Upon my initial encounter with the patient admitted that he drinks more than 18 beers per day. He was started on CIWA protocol, however has remained hemodynamically stable, comfortable in bed, no signs of withdrawal, cooperating fine. Not agitated, not combative. Toxicology screen positive for cocaine. Sodium level slowly improving, today 132. Serology positive for influenza type A. The patient with significant proteinuria consistent with diabetic nephropathy, creatinine slowly trending down, no need for renal replacement therapy per plastics factory worker. Patient with blood culture positive for Staphylococcus aureus, with urine culture positive for Klebsiella pneumoniae. We will add vancomycin IV pharmacy to dose. We will request Infectious Disease consultation. Echocardiogram reviewed, hypodense echogenic mobile vegetation to right coronary cusp leaflet, per cardiology once platelet count is greater than 50 1000 we will proceed with a a DRAKE. CT abdomen with gallstones in the gallbladder. HIDA scan pending REVIEW OF SYSTEMS CONSTITUTIONAL: Denies fevers, chills, or night sweats. No unintentional weight loss reported. NEUROLOGICAL: Denies headache, amaurosis fugax, motor weakness, sensory deficit, vertigo/spinning sensation, gait abnormalities, or tremors. ENT: No hearing loss, otalgia, otorrhea, rhinitis, rhinorrhea, hoarseness, or sore throat. CARDIOVASCULAR: Denies any exertional angina, dyspnea on exertion, orthopnea, paroxysmal nocturnal dyspnea, palpitations, life-threatening arrhythmias, claudication. PULMONARY: Denies any shortness of breath, cough, phlegm/sputum, hemoptysis, pleuritic chest pain. SLEEP: Denies morning headaches, daytime somnolence or napping. Denies difficulty falling asleep, staying asleep, waking from sleep. Denies knowledge of snoring. GASTROINTESTINAL: Denies any type of dysphagia to either liquids or solids. Denies nausea, vomiting, pyrosis, early satiety, abdominal pain, diarrhea, constipation, or changes in stool consistency or caliber. Denies coffee-ground emesis, hematemesis, hematochezia, or melanotic stools. GENITOURINARY: Denies frequency, urgency, nocturia, hematuria or incontinence (Storage/Irritative symptoms.) Low urinary stream, straining to void, urinary intermittency or hesitancy, splitting of the voiding stream, terminal dribbling. ENDOCRINOLOGIC: Denies polyuria, polydipsia, polyphagia or heat/cold intolerances. HEMATOLOGIC: Denies thrombophilia/previous clots, or coagulopathy/bleeding disorders. ONCOLOGIC: Denies personal history of malignancy. DERMATOLOGIC: Denies rashes or pruritus. PSYCHIATRIC: Denies any suicidal or homicidal ideation. Denies hallucinations. PHYSICAL EXAM GENERAL APPEARANCE: The patient is awake, alert, and oriented, in no acute cardiopulmonary distress. NEUROLOGICAL: Cranial nerves II-XII grossly intact. Motor is 5/5 in bilateral upper and lower extremities proximal to distal. No sensory deficits. HEENT: Face is symmetric. Pupils are equal and reactive. Extraocular movements are intact. NECK: Supple. No JVD. No thyromegaly. No submental, submandibular, pre- /postauricular, occipital or supraclavicular lymphadenopathy. CHEST: Normal chest expansion. No Telemetry. LUNGS: Absence of any rales, rhonchi or any wheezing. CARDIOVASCULAR: Regular. S1 and S2 normal. No appreciable rubs, murmurs or gallops. ABDOMEN: Soft, nontender, and nondistended. There is no rebound, voluntary guarding, or rigidity. : Deferred. No Ortega. EXTREMITIES: Non-edematous and not cyanotic. No clubbing. Good capillary refill. SKIN: No skin breakdown. Vital Signs (last 8hr) Date Time Temp Pulse Resp B/P (MAP) Pulse Ox O2 Delivery O2 Flow Rate FiO2 01/07/25 11:32 98 Room Air* 0 01/07/25 10:46 73 15 141/96 97 Room Air 01/07/25 10:01 98.4 68 14 143/86 99 Room Air 01/07/25 09:16 69 17 156/102 98 Room Air 01/07/25 09:01 66 13 156/98 99 Room Air 01/07/25 08:47 75 15 165/112 99 Room Air 01/07/25 08:16 71 16 146/87 98 Room Air 01/07/25 08:01 66 20 132/84 97 Room Air 01/07/25 07:46 98.1 66 22 135/80 98 Room Air 01/07/25 07:45 97 Room Air* 0 01/07/25 07:31 67 25 128/67 98 Room Air 01/07/25 07:16 72 29 127/68 99 Room Air 01/07/25 07:01 72 18 140/94 99 Room Air 01/07/25 06:45 69 4 145/95 01/07/25 06:30 71 21 148/89 01/07/25 06:15 74 29 167/113 01/07/25 06:00 64 19 149/101 01/07/25 05:45 69 24 167/95 01/07/25 05:30 73 22 159/102 01/07/25 05:00 71 17 157/91 97 01/07/25 04:45 73 5 144/81 96 01/07/25 04:30 77 9 151/90 97 01/07/25 04:15 79 5 163/84 96 Room Air LABS: Laboratory: Test 01/07/25 08:04 01/07/25 07:13 01/06/25 21:22 01/06/25 20:41 Range/Units White Blood Count 11.2 H 4.8-10.8 K/uL Red Blood Count 4.47 L 4.50-6.20 MIL/uL Hemoglobin 14.5 14.0-18.0 g/dL Hematocrit 39.3 L 42-54 % Mean Corpuscular Volume 87.9 79-99 fL Mean Corpuscular Hemoglobin 32.4 27.0-33.0 pg Mean Corpuscular Hemoglobin Concent 36.9 H 32.0-36.0 g/dL Red Cell Distribution Width 12.9 11.0-15.5 % Platelet Count 41 #L 130-400 K/uL Mean Platelet Volume 12.8 H 7.5-10.5 fL Immature Granulocyte % (Auto) 0.9 0-1 % Neutrophils (%) (Auto) 90.1 H 40.0-77.0 % Lymphocytes (%) (Auto) 3.9 L 21.0-51.0 % Monocytes (%) (Auto) 4.9 3.0-13.0 % Eosinophils (%) (Auto) 0.0 0.0-8.0 % Basophils (%) (Auto) 0.2 0.0-5.0 % Neutrophils # (Auto) 10.1 H 1.8-7.7 K/uL Lymphocytes # (Auto) 0.4 L 1.0-4.8 K/uL Monocytes # (Auto) 0.6 0.1-1.0 K/uL Eosinophils # (Auto) 0.00 0.00-0.70 K/uL Basophils # (Auto) 0.02 0.00-0.20 K/uL Absolute Immature Granulocyte (auto 0.10 0-1 K/uL Nucleated Red Blood Cells 0.0 0.0-0.19 % Sodium Level 132 L 136-145 mmol/L Potassium Level 3.2 L 3.5-5.1 mmol/L Chloride Level 101 101-111 mmol/L Carbon Dioxide Level 19 L 21-32 mmol/L Blood Urea Nitrogen 105 *H 7-18 mg/dL Creatinine 3.2 H 0.5-1.3 mg/dL Glomerular Filtration Rate Calc 24 >90 mL/min Random Glucose 221 #H 70-105 mg/dL Total Calcium 6.6 L 8.5-10.1 mg/dL Magnesium Level 2.80 H 1.80-2.40 mg/dL Total Bilirubin 2.7 H 0.2-1.0 mg/dL Aspartate Amino Transf (AST/SGOT) 38 H 10-37 U/L Alanine Aminotransferase (ALT/SGPT) 32 12-78 U/L Alkaline Phosphatase 86 50-136 U/L Total Protein 6.2 6.0-8.3 g/dL Albumin 1.7 L 3.5-5.0 g/dL Whole Blood Glucose 232 H 70-110 MG/DL Bedside Glucose Comment Protocol Initiated Blood Gas Specimen Type Venous Arterial Blood Oxygen Saturation 88.7 L 94.0-98.0 % Venous Blood pH 7.408 7.320-7.430 Venous Blood pCO2 at Patient Temp 24 L 38-54 Venous Blood pO2 at Patient Temp 55.4 H 23.0-48.0 mmHg Venous Blood HCO3 15.0 L 22.0-29.0 Venous Blood Base Excess -7.5 L -2.0-3.0 Venous Blood Total Hemoglobin 15.8 13.5-17.5 Sodium (Blood Gas) 127 L 136-145 MMOL/L Bedside Potassium (Blood Gas) 3.2 L 3.4-4.5 MMOL/L Bedside Chloride (Blood Gas) 98 98-107 MMOL/L Bedside Glucose (Blood Gas) 435 H 65-95 MG/DL Bedside Ionized Calcium (Blood Gas) 0.98 L 1.15-1.33 MMOL/L Bedside Lactic Acid (Blood Gas) 1.53 H 0.36-0.75 MMOL/L Blood Gas Temperature 37.0 35.5-37.0 CELSIUS Blood Gas Vent Mode RA ROOM AIR FiO2 21.0 % Blood Gas Specimen Comment LB MAMMAL KEEPER IVONN Test 01/06/25 13:52 01/05/25 15:31 01/05/25 14:31 Range/Units Whole Blood Ketones Quantitative 0.6 0.0-0.6 mmol/L Troponin I High Sensitivity 120 *H 4-75 ng/L Urine Color DARK-YELLOW YELLOW Urine Appearance TURBID CLEAR Urine pH 5.5 5.0-8.0 Urine Specific [place] 1.017 1.001-1.031 Urine Protein 70 H NEGATIVE mg/dL Urine Glucose (UA) 200 H NEGATIVE mg/dL Urine Ketones NEGATIVE NEGATIVE mg/dL Urine Occult Blood LARGE H NEGATIVE Urine Nitrate NEGATIVE NEGATIVE Urine Bilirubin 1 H NEGATIVE mg/dL Urine Urobilinogen 4.0 H 0.2-1.0 mg/dL Urine Leukocyte Esterase 500 H NEGATIVE Charlie/uL Urine RBC >100 H 0-1 /HPF Urine WBC 11-25 H 0-1 /HPF Urine WBC Clumps (Auto) RARE 0-1 /HPF Urine Squamous Epithelial Cells RARE 0-2 /HPF Urine Non-Squamous Epithelial Cells 2 0-2 /HPF Urine Other Crystals (Auto) 13 None Seen /HPF Urine Bacteria FEW None Seen /HPF Urine Hyaline Casts 2-5 H 0-1 /LPF /LPF Urine Granular Casts (Auto) 2-5 H None Seen /LPF Urine Yeast FEW None Seen /HPF Urine Yeast with Hyphae RARE None Seen /HPF Urine Random Creatinine 99.83 30-135 mg/dL Urine Random Total Protein 208.3 H 0-11.9 mg/dL Current Medications Medications (Trade) Dose Ordered Sig/Asya Route PRN Reason Start Time Stop Time Status Last Admin Dose Admin Acetaminophen (TYLenol 325MG TAB) 650 mg Q6H PRN PO TEMPERATURE GREATER THAN 101.5 01/05/25 02:30 02/04/25 02:29 Aspirin (Aspirin 81mg Chew Tab) 81 mg DAILY PO 01/05/25 09:00 01/05/25 09:53 DC Benzocaine (Cepacol Sore Throat Lozenge) 1 each Q4H PRN MM SORE THROAT 01/05/25 02:30 02/04/25 02:29 Chlordiazepoxide HCl (LIBrium 25 MG CAP) 25 mg Q8H PO 01/05/25 02:30 01/12/25 02:29 01/07/25 09:44 25 MG Dexamethasone Sodium Phosphate 40 mg/Sodium Chloride 50 ml @ 100 mls/hr DAILY IV 01/06/25 14:00 02/05/25 13:59 01/07/25 10:54 100 MLS/HR Dextrose (D50w) 50 ml AD PRN IV HYPOGLYCEMIA PROTOCOL 01/05/25 10:00 02/04/25 09:59 Doxycycline Hyclate 250 ml @ 125 mls/hr Q12H IV 01/05/25 10:00 01/06/25 21:05 DC 01/06/25 09:30 125 MLS/HR Doxycycline Hyclate 250 ml @ 125 mls/hr Q12H IV 01/06/25 21:30 01/16/25 21:29 01/07/25 09:07 125 MLS/HR Folic Acid (FOLic ACID 1 MG TABLET) 1 mg DAILY PO 01/07/25 10:30 02/06/25 10:29 Glucagon (Glucagon 1mg Kit) 1 mg AD PRN IM HYPOGLYCEMIA PROTOCOL 01/05/25 10:00 02/04/25 09:59 Hydralazine HCl (APRESOLine 20MG INJ) 5 mg Q6H PRN IV For:SBP above 160;DBP above 90 01/05/25 14:30 02/04/25 14:29 Hydralazine HCl (APRESOLine 20MG INJ) 10 mg Q6H PRN IV For:SBP above 160;DBP above 90 01/05/25 02:30 01/05/25 09:53 DC Insulin Glargine (LANtus 100 UNITS/ML 10 ML VIAL) 15 units Q12H SQ 01/07/25 21:30 02/05/25 21:29 Insulin Glargine (LANtus 100 UNITS/ML 10 ML VIAL) 20 units HS SQ 01/06/25 21:00 01/06/25 21:05 DC Insulin Glargine (LANtus 100 UNITS/ML 10 ML VIAL) 20 units HS SQ 01/06/25 21:30 01/07/25 10:24 DC 01/06/25 21:33 20 UNITS Insulin Human Regular (humuLIN R 100 UNIT/ML 3ML) INSULIN SLIDING SCAL... ACHS SQ 01/05/25 07:30 01/05/25 09:57 DC 01/05/25 07:59 16 UNIT Insulin Human Regular (humuLIN R 100 UNIT/ML 3ML) INSULIN SLIDING SCAL... ACHS SQ 01/05/25 11:30 01/06/25 16:43 DC 01/06/25 11:50 8 UNIT Insulin Human Regular (humuLIN R 100 UNIT/ML 3ML) INSULIN SLIDING SCAL... ACHS SQ 01/06/25 17:00 02/05/25 16:59 Hold 01/06/25 17:17 16 UNIT Insulin Human Regular 100 unit/ Sodium Chloride 100 ml @ 0 mls/hr AD PRN IV HYPERGLYCEMIA PROTOCOL 01/06/25 19:30 02/05/25 19:29 01/06/25 20:48 6 MLS/HR Lactated Ringer's 1,000 ml @ 100 mls/hr Q10H IV 01/05/25 02:30 01/05/25 09:51 DC 01/05/25 02:30 100 MLS/HR Lorazepam (AtiVAN) 1 mg Q4H PRN IVP ALCOHOL WITHDRAWAL PROTOCOL 01/05/25 02:30 2/13/25 02:29 Magnesium Sulfate 50 ml @ 0 mls/hr PROTOCOL PRN IV h 01/05/25 02:30 02/04/25 02:29 01/05/25 03:24 25 MLS/HR Morphine Sulfate (morPHINE 2MG SYG) 2 mg Q4H PRN IVP SEVERE PAIN (7-10) 01/05/25 02:30 01/12/25 02:29 Multivitamins Therapeutic (Multivitamin Tablet) 1 tab DAILY PO 01/07/25 10:30 02/06/25 10:29 01/07/25 10:39 1 TAB Nicotine (Nicoderm) 21 mg DAILY TD 01/05/25 09:00 02/04/25 08:59 01/07/25 10:00 21 MG Nitroglycerin (Nitrostat) 0.4 mg AD PRN SL CHEST PAIN 01/05/25 02:30 02/04/25 02:29 Ondansetron HCl (zoFRAN 4MG INJ) 4 mg Q6H PRN IV NAUSEA/VOMITING 01/05/25 02:30 02/04/25 02:29 Pantoprazole Sodium (PROTonix 40MG TAB) 40 mg DAILY PO 01/05/25 09:00 02/04/25 08:59 01/07/25 09:44 40 MG Pharmacy Profile Note (Pharmacy Communication) 1 each PROTOCOL PRN MISC ETOH Withdrawal Score changes 01/05/25 02:30 01/12/25 02:29 Piperacillin Sod/ Tazobactam Sod (Zosyn 3.375gm+NS 50ml) 3.375 gm Q12H IV 01/05/25 02:30 01/15/25 02:29 01/07/25 02:45 3.375 GM Potassium Phosphate 250 ml @ 42 mls/hr PROTOCOL PRN IV PROTOCOL 01/05/25 10:00 02/04/25 09:59 Potassium Chloride 100 ml @ 100 mls/hr AD PRN IV POTASSIUM PROTOCOL 01/05/25 02:30 01/07/25 10:12 DC Potassium Chloride 100 ml @ 100 mls/hr AD PRN IV POTASSIUM PROTOCOL 01/07/25 10:30 02/06/25 10:29 Potassium Chloride (K-Dur 10meq Sr Tab) 10 meq AD PRN PO POTASSIUM PROTOCOL 01/06/25 09:30 02/04/25 02:29 Potassium Chloride (K-Dur/Klor-Con 20meq) 10 meq AD PRN PO POTASSIUM PROTOCOL 01/05/25 02:30 01/06/25 09:12 DC 01/05/25 22:15 10 MEQ Potassium Chloride (K-Dur/Klor-Con 20meq) 10 meq AD PRN PO POTASSIUM PROTOCOL 01/07/25 10:30 01/07/25 10:12 DC Potassium Chloride (KCl 10% Elixir 20meq/15ml) 10 meq AD PRN PO POTASSIUM PROTOCOL 01/05/25 02:30 01/07/25 10:12 DC 01/06/25 17:16 10 MEQ Potassium Chloride (KCl 10% Elixir 20meq/15ml) 10 meq AD PRN PO POTASSIUM PROTOCOL 01/07/25 10:30 02/06/25 10:29 Sodium Chloride 1,000 ml @ 150 mls/hr Q6H40M IV 01/05/25 10:00 02/04/25 09:59 01/07/25 09:07 150 MLS/HR Triamcinolone Acetonide (Kenalog/ Aristocort) 1 APPLY TP BID BID TP 01/07/25 11:00 02/06/25 10:59 DIAGNOSTICS / RADIOLOGY: [ ] ASSESSMENT: Severe sepsis, POA Gram-positive bacteremia secondary to Staphylococcus aureus, POA Hypodense echogenic mobile vegetation to right coronary cusp leaflet on echocardiogram 01/05/2025 Urinary tract infection, secondary to Klebsiella pneumoniae, POA Strep pharyngitis, POA ITP, POA Leukocytosis, POA Hyperlactatemia, POA Acute kidney injury, POA Hypokalemia, POA Hyponatremia, POA Hypomagnesemia, POA POA New onset Uncontrolled Diabetes mellitius type2, POA Elevated troponin, POA Cocaine abuse, POA Alcohol abuse, POA Tobacco dependence, POA Significant proteinuria, POA Diabetic nephropathy, POA Gallstones, POA PLAN: -patient remains admitted to the ICU -continue the patient on insulin drip -continue close monitor the patient's blood glucose level, monitoring metabolic status. Endocrinology consultation requested, follow input and recommendation. -continue to monitor sodium level in a.m. -patient started on dexamethasone IV due to ITP per car stereo installer. Continue to follow input and recommendations. -renal function slightly improved today, patient evaluated by plastics factory worker, the patient with significant proteinuria on UA consistent with diabetic nephropathy. No acute need for any form of renal replacement therapy. -blood culture positive for Staphylococcus aureus. Urine culture positive for Klebsiella pneumoniae. Add vancomycin IV pharmacy to dose. ID consultation requested, follow input and recommendation. -Echocardiogram with hypodense echogenic mobile vegetation to right coronary cusp leaflet, per cardiology once platelet count is greater than 50,000 will proceed with a a DRAKE. -cholelithiasis noted on CT abdomen, HIDA scan pending -continue to follow critical care input and recommendation NEURO: Minimize central acting medications as possible. Fall Precautions. Well lighted room through the day and minimize interruptions through the night to prevent acute delirium. PULMONARY: Supplemental 02 as needed BiPAP as necessary, for respiratory distress Titrate Fio2 to keep Spo2 > or = 90% DuoNebs and CPT as needed IS hourly while awake for pulmonary hygiene prn Out of bed to chair as tolerated Maintain aspiration precautions at all times CARDIOVASCULAR: Follow hemodynamics. Vital signs per facility protocol GI & NUTRITION: Continue nutritional support Aspirations precautions Prokinetic agents and laxatives as needed KIDNEYS & ELECTROLYTES: Strict monitoring of intake and output Daily weights Avoid nephrotoxic agents Monitor electrolytes and replace as needed Goal urine output of 30mL/hr or 0.5mL/kg/hr Medications to be dosed according to renal function. Avoid contrast if possible ENDOCRINE: Maintain blood glucose between 100-180 at all times. Insulin sliding scale for blood glucose management Hypoglycemia and hyperglycemia protocol in place INFECTIOUS DISEASE: Trend temperature, WBC and procalcitonin level Follow cultures, deescalate antibiotics as soon as possible. Panculture if new onset fever HEMATOLOGY & COAGULATION: Monitor H&H. Keep Hgb > 7 Transfuse 1 unit of PRBC for Hgb < 7 Transfuse 1 pack of platelets of platelets < 20, 000 Watch for any signs and symptoms of bleeding SKIN: Pressure ulcer prevention per facility protocol Specialty mattress as needed ORTHO/REHAB Continue PT/OT PRN: MEDICATIONS Tylenol 650 mg po every 4 hrs for fever zofran 4 mg IV every 6 hrs for n/v Hydralazine 5 mg IV every 4 hrs systolic pressure > 160 bowel regiment: lactulose 20 gm PO BID PRN constipation Supportive measures: Continue GI and DVT prophylaxis Disposition: Pending improvement in clinical condition. All questions answered time spent: > 35 min CARBAJAL,EPISCOPAL E MD Jan 07, 2025 12:18
[2025-01-07] MEDS ORDERED: VANCOMYCIN PROTOCOL PER PHARMACY IV SCH (12:30)
[2025-01-07 12:32] LABS: CREATININE 2.9 mg/dL (0.5-1.3); POTASSIUM 3.1 mmol/L (3.5-5.1)
[2025-01-07] MEDS: FOLic ACID 1 MG TABLET PO SCH (12:57)
[2025-01-07] MEDS: PoTASSium chloRIDE 10MEQ SR 10 MEQ/TAB TAB.SR.24H PO PRN (12:59)
[2025-01-07] MEDS: ceFAZolin SODIUM 2 GM VIAL IVPB SCH (14:05)
--- NOTE | 2025-01-07 14:07 | HMCIMG ---
GRADY ROONEYA EDWAR EF/CCK: 01/06/2025 12:07 PM SOFTWARE PROJECT ENGINEER CLINICAL INDICATION: Right upper quadrant pain. COMPARISON: None. TECHNIQUE: Injected Dose: 7 mCi Tc-99m mebrofenin Initial dynamic images: 60 minutes Post-treatment: None. Additional images: 2 hour delay. FINDINGS: Normal hepatic transit time. Prompt excretion into the small bowel. There is no excretion into the gallbladder. . IMPRESSION: Acute cholecystitis.
--- NOTE | 2025-01-07 14:30 | NUR ---
notified of consult. acknowledges at 1430.
[2025-01-07] MEDS: TRIAMCINOLONE ACETONIDE 0.1% CREAM 15GM TP SCH (15:00)
--- NOTE | 2025-01-07 15:52 | NUR ---
dr.flores antony at bedside. ordered cxray,lasix 20mg IVP Q12hr, BNP, and lowere fluids NS 50ml/hr. will re eval plts tomorrow and possible set up for DRAKE thursday.
[2025-01-07] MEDS: furoSEMIDE 20MG VIAL IV SCH (15:56)
--- NOTE | 2025-01-07 16:00 | NUR ---
received call from [facility], to pls keep pt NPO after dinner, [facility] will come in around 0400 tomorrow and can do scan. pt had lunch plate and can not have scan at this time due to 8hrs NPO status not met. scan was ordered after lunch time, pt was educated on NPO status after at least 9pm, family and pt verbalized understanding.
--- NOTE | 2025-01-07 16:41 | PN ---
NEPHROLOGY PROGRESS NOTE Date/Time Patient Seen: Jan 07, 2025 Reason for Consultation: 16:35 SUBJECTIVE: This is a is a 44-year-old male presented to the hospital with acute renal failure. The patient with gram-positive bacteremia and remains on the antibiotics. The patient's workup is consistent with significant renal dysfunction. The patient with undiagnosed diabetes mellitus and he is being seen as a followup visit for all of the above. He continues on insulin drip. Serum sodium continues to slowly improve. The patient with significant proteinuria on urinalysis consistent with diabetic nephropathy. The patient continues with the IV hydration. There is no acute need for any form of renal replacement therapy. He does remain on the antibiotics and we will continue to follow closely. REVIEW OF SYSTEMS: GENERAL: Negative for any nausea, vomiting, fevers, chills, or weight loss. NEUROLOGIC: Negative for any blurry vision, blind spots, double vision, facial asymmetry, dysphagia, dysarthria, hemiparesis, hemisensory deficits, vertigo, ataxia. HEENT: Negative for any head trauma, neck trauma, neck stiffness, photophobia, phonophobia, sinusitis, rhinitis. CARDIAC: Negative for any chest pain, dyspnea on exertion, paroxysmal nocturnal dyspnea, peripheral edema. PULMONARY: Negative for any shortness of breath, wheezing, COPD, or TB exposure. GASTROINTESTINAL: Negative for any abdominal pain, nausea, vomiting, bright red blood per rectum, melena. GENITOURINARY: Negative for any dysuria, hematuria, incontinence. INTEGUMENTARY: Negative for any rashes, cuts, insect bites. RHEUMATOLOGIC: Negative for any joint pains, photosensitive rashes, history of vasculitis or kidney problems. HEMATOLOGIC: Negative for any abnormal bruising, frequent infections or bleeding. Vital Signs (last 8hr) Date Time Temp Pulse Resp B/P (MAP) Pulse Ox O2 Delivery O2 Flow Rate FiO2 01/07/25 16:22 99 Nasal Cannula* 2 28 01/07/25 15:46 97.0 69 20 154/55 98 Nasal Cannula 2.0 01/07/25 14:46 71 20 144/93 97 Room Air 01/07/25 13:47 73 12 163/89 98 Room Air 01/07/25 12:46 57 18 167/90 99 Room Air 01/07/25 11:46 68 15 133/80 97 Room Air 01/07/25 11:32 98 Room Air* 0 21 01/07/25 10:46 73 15 141/96 97 Room Air 01/07/25 10:01 98.4 68 14 143/86 99 Room Air 01/07/25 09:16 69 17 156/102 98 Room Air 01/07/25 09:01 66 13 156/98 99 Room Air 01/07/25 08:47 75 15 165/112 99 Room Air PHYSICAL EXAM: GENERAL: Alert and oriented x 3. No acute distress. Well-nourished. EYES: EOMI. Anicteric. HENT: Moist mucous membranes. No scleral icterus. No cervical lymphadenopathy. LUNGS: Clear to auscultation bilaterally. No accessory muscle use. CARDIOVASCULAR: Regular rate and rhythm. No murmur. No JVD. ABDOMEN: Soft, non-tender and non-distended. No palpable masses. EXTREMITIES: No edema. Non-tender.?SKIN: No rashes or lesions. Warm. NEUROLOGIC: No focal neurological deficits. CN II-XII grossly intact, but not individually tested. PSYCHIATRIC: Cooperative. Appropriate mood and affect. Current Medications Medications (Trade) Dose Ordered Sig/Asya Route PRN Reason Start Time Stop Time Status Last Admin Dose Admin Acetaminophen (TYLenol 325MG TAB) 650 mg Q6H PRN PO TEMPERATURE GREATER THAN 101.5 01/05/25 02:30 02/04/25 02:29 Aspirin (Aspirin 81mg Chew Tab) 81 mg DAILY PO 01/05/25 09:00 01/05/25 09:53 DC Benzocaine (Cepacol Sore Throat Lozenge) 1 each Q4H PRN MM SORE THROAT 01/05/25 02:30 02/04/25 02:29 Cefazolin Sodium (Ancef) 2 gm Q12H IVPB 01/07/25 13:30 01/17/25 13:29 01/07/25 14:05 2 GM Chlordiazepoxide HCl (LIBrium 25 MG CAP) 25 mg Q8H PO 01/05/25 02:30 01/12/25 02:29 01/07/25 09:44 25 MG Dexamethasone Sodium Phosphate 40 mg/Sodium Chloride 50 ml @ 100 mls/hr DAILY IV 01/06/25 14:00 01/10/25 09:29 01/07/25 10:54 100 MLS/HR Dextrose (D50w) 50 ml AD PRN IV HYPOGLYCEMIA PROTOCOL 01/05/25 10:00 02/04/25 09:59 Doxycycline Hyclate 250 ml @ 125 mls/hr Q12H IV 01/05/25 10:00 01/06/25 21:05 DC 01/06/25 09:30 125 MLS/HR Doxycycline Hyclate 250 ml @ 125 mls/hr Q12H IV 01/06/25 21:30 01/16/25 21:29 01/07/25 09:07 125 MLS/HR Folic Acid (FOLic ACID 1 MG TABLET) 1 mg DAILY PO 01/07/25 10:30 02/06/25 10:29 01/07/25 12:57 1 MG Furosemide (LASix 20MG VIAL) 20 mg Q12H IV 01/07/25 16:00 01/20/25 16:00 01/07/25 15:56 20 MG Glucagon (Glucagon 1mg Kit) 1 mg AD PRN IM HYPOGLYCEMIA PROTOCOL 01/05/25 10:00 02/04/25 09:59 Hydralazine HCl (APRESOLine 20MG INJ) 5 mg Q6H PRN IV For:SBP above 160;DBP above 90 01/05/25 14:30 02/04/25 14:29 Hydralazine HCl (APRESOLine 20MG INJ) 10 mg Q6H PRN IV For:SBP above 160;DBP above 90 01/05/25 02:30 01/05/25 09:53 DC Insulin Glargine (LANtus 100 UNITS/ML 10 ML VIAL) 15 units Q12H SQ 01/07/25 21:30 02/05/25 21:29 Insulin Glargine (LANtus 100 UNITS/ML 10 ML VIAL) 20 units HS SQ 01/06/25 21:00 01/06/25 21:05 DC Insulin Glargine (LANtus 100 UNITS/ML 10 ML VIAL) 20 units HS SQ 01/06/25 21:30 01/07/25 10:24 DC 01/06/25 21:33 20 UNITS Insulin Human Regular (humuLIN R 100 UNIT/ML 3ML) INSULIN SLIDING SCAL... ACHS SQ 01/05/25 07:30 01/05/25 09:57 DC 01/05/25 07:59 16 UNIT Insulin Human Regular (humuLIN R 100 UNIT/ML 3ML) INSULIN SLIDING SCAL... ACHS SQ 01/05/25 11:30 01/06/25 16:43 DC 01/06/25 11:50 8 UNIT Insulin Human Regular (humuLIN R 100 UNIT/ML 3ML) INSULIN SLIDING SCAL... ACHS SQ 01/06/25 17:00 01/07/25 13:32 DC 01/06/25 17:17 16 UNIT Insulin Human Regular 100 unit/ Sodium Chloride 100 ml @ 0 mls/hr AD PRN IV HYPERGLYCEMIA PROTOCOL 01/06/25 19:30 02/05/25 19:29 01/06/25 20:48 6 MLS/HR Lactated Ringer's 1,000 ml @ 100 mls/hr Q10H IV 01/05/25 02:30 01/05/25 09:51 DC 01/05/25 02:30 100 MLS/HR Lorazepam (AtiVAN) 1 mg Q4H PRN IVP ALCOHOL WITHDRAWAL PROTOCOL 01/05/25 02:30 01/12/25 02:29 Magnesium Sulfate 50 ml @ 0 mls/hr PROTOCOL PRN IV h 01/05/25 02:30 02/04/25 02:29 01/05/25 03:24 25 MLS/HR Morphine Sulfate (morPHINE 2MG SYG) 2 mg Q4H PRN IVP SEVERE PAIN (7-10) 01/05/25 02:30 01/12/25 02:29 Multivitamins Therapeutic (Multivitamin Tablet) 1 tab DAILY PO 01/07/25 10:30 02/06/25 10:29 01/07/25 10:39 1 TAB Nicotine (Nicoderm) 21 mg DAILY TD 01/05/25 09:00 02/04/25 08:59 01/07/25 10:00 21 MG Nitroglycerin (Nitrostat) 0.4 mg AD PRN SL CHEST PAIN 01/05/25 02:30 02/04/25 02:29 Ondansetron HCl (zoFRAN 4MG INJ) 4 mg Q6H PRN IV NAUSEA/VOMITING 01/05/25 02:30 02/04/25 02:29 Pantoprazole Sodium (PROTonix 40MG TAB) 40 mg DAILY PO 01/05/25 09:00 02/04/25 08:59 01/07/25 09:44 40 MG Pharmacy Profile Note (Pharmacy Communication) 1 each PROTOCOL PRN MISC ETOH Withdrawal Score changes 01/05/25 02:30 01/12/25 02:29 Piperacillin Sod/ Tazobactam Sod (Zosyn 3.375gm+NS 50ml) 3.375 gm Q12H IV 01/05/25 02:30 01/07/25 13:24 DC 01/07/25 02:45 3.375 GM Potassium Phosphate 250 ml @ 42 mls/hr PROTOCOL PRN IV PROTOCOL 01/05/25 10:00 02/04/25 09:59 Potassium Chloride 100 ml @ 100 mls/hr AD PRN IV POTASSIUM PROTOCOL 01/05/25 02:30 01/07/25 10:12 DC Potassium Chloride 100 ml @ 100 mls/hr AD PRN IV POTASSIUM PROTOCOL 01/07/25 10:30 02/06/25 10:29 Potassium Chloride (K-Dur 10meq Sr Tab) 10 meq AD PRN PO POTASSIUM PROTOCOL 01/06/25 09:30 02/04/25 02:29 01/07/25 15:51 10 MEQ Potassium Chloride (K-Dur/Klor-Con 20meq) 10 meq AD PRN PO POTASSIUM PROTOCOL 01/05/25 02:30 01/06/25 09:12 DC 01/05/25 22:15 10 MEQ Potassium Chloride (K-Dur/Klor-Con 20meq) 10 meq AD PRN PO POTASSIUM PROTOCOL 01/07/25 10:30 01/07/25 10:12 DC Potassium Chloride (KCl 10% Elixir 20meq/15ml) 10 meq AD PRN PO POTASSIUM PROTOCOL 01/05/25 02:30 01/07/25 10:12 DC 01/06/25 17:16 10 MEQ Potassium Chloride (KCl 10% Elixir 20meq/15ml) 10 meq AD PRN PO POTASSIUM PROTOCOL 01/07/25 10:30 02/06/25 10:29 Sodium Chloride 1,000 ml @ 50 mls/hr Q20H IV 01/05/25 10:00 02/04/25 09:59 01/07/25 15:38 150 MLS/HR Triamcinolone Acetonide (Kenalog/ Aristocort) 1 APPLY TP BID BID TP 01/07/25 11:00 02/06/25 10:59 2/8/25 15:00 1 APPL Vancomycin HCl (Vancomycin Protocol) 1 each AD IV 01/07/25 12:30 01/07/25 12:40 DC LABORATORY: [ ] Hematology Labs: Test 01/07/25 08:04 Range/Units White Blood Count 11.2 H 4.8-10.8 K/uL Red Blood Count 4.47 L 4.50-6.20 MIL/uL Hemoglobin 14.5 14.0-18.0 g/dL Hematocrit 39.3 L 42-54 % Mean Corpuscular Volume 87.9 79-99 fL Mean Corpuscular Hemoglobin 32.4 27.0-33.0 pg Mean Corpuscular Hemoglobin Concent 36.9 H 32.0-36.0 g/dL Red Cell Distribution Width 12.9 11.0-15.5 % Platelet Count 41 #L 130-400 K/uL Mean Platelet Volume 12.8 H 7.5-10.5 fL Immature Granulocyte % (Auto) 0.9 0-1 % Neutrophils (%) (Auto) 90.1 H 40.0-77.0 % Lymphocytes (%) (Auto) 3.9 L 21.0-51.0 % Monocytes (%) (Auto) 4.9 3.0-13.0 % Eosinophils (%) (Auto) 0.0 0.0-8.0 % Basophils (%) (Auto) 0.2 0.0-5.0 % Neutrophils # (Auto) 10.1 H 1.8-7.7 K/uL Lymphocytes # (Auto) 0.4 L 1.0-4.8 K/uL Monocytes # (Auto) 0.6 0.1-1.0 K/uL Eosinophils # (Auto) 0.00 0.00-0.70 K/uL Basophils # (Auto) 0.02 0.00-0.20 K/uL Absolute Immature Granulocyte (auto 0.10 0-1 K/uL Nucleated Red Blood Cells 0.0 0.0-0.19 % Chemistry Labs: Test 01/07/25 16:00 01/07/25 12:00 01/07/25 08:04 01/06/25 21:22 Range/Units Whole Blood Glucose 204 H 70-110 MG/DL Sodium Level 135 L 136-145 mmol/L Potassium Level 3.1 L 3.5-5.1 mmol/L Chloride Level 105 101-111 mmol/L Carbon Dioxide Level 17 L 21-32 mmol/L Blood Urea Nitrogen 100 *H 7-18 mg/dL Creatinine 2.9 H 0.5-1.3 mg/dL Glomerular Filtration Rate Calc 27 >90 mL/min Random Glucose 217 H 70-105 mg/dL Total Calcium 6.6 L 8.5-10.1 mg/dL Magnesium Level 2.80 H 1.80-2.40 mg/dL Total Bilirubin 2.7 H 0.2-1.0 mg/dL Aspartate Amino Transf (AST/SGOT) 38 H 10-37 U/L Alanine Aminotransferase (ALT/SGPT) 32 12-78 U/L Alkaline Phosphatase 86 50-136 U/L Total Protein 6.2 6.0-8.3 g/dL Albumin 1.7 L 3.5-5.0 g/dL Bedside Glucose Comment Protocol Initiated Test 01/06/25 13:52 Range/Units Whole Blood Ketones Quantitative 0.6 0.0-0.6 mmol/L DIAGNOSTICS / RADIOLOGY: REASON: rule out acute cholecystitis ORDERING PHYSICIAN: MAHOGANY CARBAJAL MD PROCEDURE: HIDAWO - NM HIDA WO EF/CCK NM HIDA WO EF/CCK: 01/06/2025 12:07 PM [facility] [employer] CLINICAL INDICATION: Right upper quadrant pain. COMPARISON: None. TECHNIQUE: Injected Dose: 7 mCi Tc-99m mebrofenin Initial dynamic images: 60 minutes Post-treatment: None. Additional images: 2 hour delay. FINDINGS: Normal hepatic transit time. Prompt excretion into the small bowel. There is no excretion into the gallbladder. . IMPRESSION: Acute cholecystitis. DICTATED BY: HANK AVILA DO DATE: 01/07/25 1402 REASON: positive troponin ORDERING PHYSICIAN: MAHOGANY CARBAJAL MD PROCEDURE: ECHO CMP - ECHO 2-D COMPLETE APPROVED REPORT EXAM: Two-dimensional and M-mode echocardiogram with Doppler and color Doppler. Study Details: Pt states fevers INDICATION ICD: Positive troponin 2D Dimensions RVDd 3.9 cm LVEF(%) 51.2 (>50%) LVED Vol(simp.) 87.0 mL IVSd 0.8 (0.7-1.1cm) FS(%) 26 % LVES Vol(simp.) 35.0 mL LVDd 5.3 (3.8-5.6cm) LA (2D) 4.2 (1.6-4.0cm) LVEF(%, simp.) 60 % PWd 1.3 (0.7-1.1cm) Ao Root(2D) 3.5 (2.0-3.7cm) LA ESV INDEX (4CH) 21.50 mL/m2 IVSs 1.0 cm LVOT diam 2.4 (1.8-2.4cm) LA ESV INDEX (2CH) 19.20 mL/m2 LVDs 3.9 (2.5-4.0cm) IVC diam 2.5 cm LA ESV INDEX (BP) 20.35 mL/m2 PWs 1.6 cm Deformation Strain Apical 4 -16.0 % Apical 2 -12.0 % Apical 3 -10.0 % Global Strain -13.0 % M-Mode Dimensions EPSS 0.6 cm LA (MM) 4.3 (1.6-4.0cm) Ao Root(MM) 3.8 (2.0-3.7cm) Aortic Valve AoV VTI 0.2 m Ao Mean GR 5.0 mmHg LVOT VTI 0.20 m JEANNE (VMAX) 3.9 cm2 JEANNE (VTI) 3.9 cm2 Mitral Valve MV E Vmax 117.5 cm/s DECEL Time 151 ms MV Mean GR 4 mmHg MV A Vmax 50.8 cm/s P 1/2 T 58 ms MVA (VTI) 2.7 cm2 E/A ratio 2.3 MVA (PHT) 3.8 cm2 TDI E/E' Medial 22.6 E/E' Lateral 19.6 Medial E' Peak V 5.20 cm/s Lateral E' Peak V 6.00 cm/s Pulmonary Valve PV VTI 0.15 m PV Mean GR 2 mmHg Tricuspid Valve RAP (EST) 8 mmHg RVSP 8.0 mmHg Left Ventricle The left ventricle is normal size. The There is normal left ventricular wall thickness. LVEF is 60-65%. Indeterminate diastolic dysfunction. Right Ventricle The right ventricle is normal size. The right ventricular systolic function is normal. Atria The left atrium size is normal. The right atrium size is normal. Aortic Valve The aortic valve is trileaflet and opens well. Right coronary cusp leaflet appears to have a vegeration. No aortic regurgitation is present. There is no aortic valvular stenosis. Mitral Valve The mitral valve is normal in structure. There is no mitral valve regurgitation noted. There is no mitral valve stenosis. Tricuspid Valve The tricuspid valve is normal in structure. There is no tricuspid valve regurgitation noted. Pulmonic Valve The pulmonary valve is normal in structure. There is no pulmonic valvular regurgitation. Great Vessels The aortic root is normal in size. IVC is dilated and collapses >50% with inspiration. Pericardium There is no pericardial effusion. Other Information Quality : Adequate Conclusion The left ventricle is normal size. LVEF is 60-65%. Indeterminate diastolic dysfunction. The right ventricle is normal size. The right ventricular systolic function is normal. The left atrium size is normal. The right atrium size is normal. The aortic valve is trileaflet and opens well. Right coronary cusp leaflet appears to have a vegeration. IVC is dilated and collapses >50% with inspiration. There is no pericardial effusion. DICTATED BY: EVANS FLORES MD DATE: 01/05/25 1234 REASON: renal failure ORDERING PHYSICIAN: MAHOGANY CARBAJAL MD PROCEDURE: RENAL - US RENAL SONOGRAM Exam Type: US RENAL SONOGRAM Clinical Information: renal failure Comparison: None Findings: Examination shows normal renal size and echogenicity bilaterally. Preserved cortical thickness and corticomedullary junction region is seen. No hydronephrosis or calculi are seen. No renal masses are seen. There is no evidence of perinephric fluid on either side. No evidence of significant ureteral dilatation is seen. The right kidney measures 12.8 x 5.5 cm. The left kidney measures 12.9 x 6 cm. The urinary bladder is normal. No bladder masses, stones, or wall thickening is seen. Incidentally there is evidence of cholelithiasis. IMPRESSION: Normal renal anatomy bilaterally. DICTATED BY: JANIE JOHNSON MD DATE: 01/05/25 1241 .REASON: severe sepsis uti- evaluate for hydronephrosis /pyelonephritis ORDERING PHYSICIAN: NEW REAVES MD PROCEDURE: ABD PEL WO - CT ABDOMEN/PELVIS W/O CONTRAST CT ABDOMEN/PELVIS W/O CONTRAST HISTORY: UTI COMPARISON: 12/14/2022 TECHNIQUE: Multiple sequential axial images of the abdomen and pelvis were obtained from the dome of the diaphragm through symphysis pubis. Patient was not given contrast through intravenous route. Oral contrast was not given. FINDINGS: No pleural effusion is seen bilaterally. There is no evidence of parenchymal disease or pulmonary nodule of the visualized lower lungs. Degenerative changes of the thoracolumbar spine are present. The heart is not enlarged. Liver is enlarged with fatty changes measuring 21 cm. A small hiatal hernia is seen. Gallstones are seen in the gallbladder. Nonspecific bilateral perinephric fat stranding is seen. If there is clinical suspicion for pyelonephritis, urinalysis correlation may be helpful. The liver, spleen, adrenal glands and pancreas are unremarkable. There is no evidence of hydronephrosis bilaterally. No evidence of renal stone is seen. Fecal material is seen in the colon. There are normal size retroperitoneal and mesenteric lymph nodes. No ascites is seen. No CT evidence of acute appendicitis is seen. Pelvic sidewalls are symmetric bilaterally. Bladder is moderately distended. IMPRESSION: 1. Gallstones in the gallbladder. If there is clinical suspicion for pyelonephritis, urinalysis correlation may be helpful. CT was performed with one or more following dose reduction techniques: automated exposure control, adjustment of the mA and kv according to patient's size, or use of a iterative reconstruction technique. DICTATED BY: CAROL HOWARD MD DATE: 01/05/25 0142 REASON: chest pain CAD ORDERING PHYSICIAN: NEW REAVES MD PROCEDURE: CXR1VW - CHEST 1VW Exam Type: CHEST 1VW Clinical Information: chest pain CAD Comparison: None Findings: The lungs are clear of infiltrates. The heart is normal in size. The bony and soft tissue structures of the chest are unremarkable. Impression: Clear lungs. DICTATED BY: JANIE JOHNSON MD DATE: 01/05/25 0817 ASSESSMENT: Acute on chronic renal failure. Gram-positive bacteremia. Diabetes mellitus. Electrolyte abnormalities. PLAN: Labs, diagnostic, radiologic exams reviewed and interpreted by myself and supervising physician. We have reviewed external records in detail Require close monitoring of renal function and electrolytes Order CBC, CMP and electrolytes in am Continue with antibiotics BiPAP as necessary, for respiratory distress IV pressors as needed Monitor blood pressure adjust medication doses as needed Avoid hypotensive episodes May use Dilaudid 0.5 mg IV every 6 hours as needed for severe pain Monitor blood sugars Strict intake, output, and daily weight should be monitored Please renally adjust medications Avoid nephrotoxic and nonsteroidal drugs Avoid contrast if possible Will continue to monitor renal function, anemia, electrolytes Treatment plan discussed with patient Questions were answered We have discussed with the other team physicians in detail about the care plan We will continue to monitor the patient closely Total critical care time spent with patient, nursing staff, critical care team over 35 minutes ATTESTATION BY PHYSICIAN I have seen and examined the patient. I reviewed the documentation, medical decision making, and treatment plan as noted by the mid-level provider above. I agree with the findings and plan of care. ANGELICA BOYER MD, [facility] Jan 07, 2025 16:41
[2025-01-07 16:45] LABS: CREATININE 2.8 mg/dL (0.5-1.3); POTASSIUM 4.6 mmol/L (3.5-5.1)
--- NOTE | 2025-01-07 16:47 | PN ---
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 The patient was found to have urinary tract infection, group A strep, acute renal failure, and sepsis. CT of the abdomen pelvis demonstrated cholelithiasis and pyelonephritis. He had elevated troponins of 185, 171, 143, 120 in the setting of sepsis. In addition, a 2D echocardiogram on 01/05/2025 demonstrated an aortic valve vegetation in the right coronary cusp. In addition he has had two of two sets of blood cultures positive staph aureus consistent with endocarditis. A DRAKE was planned but [place] [address] and plans for DRAKE have been deferred. He reports some dyspnea today and has been on a regimen of normal saline at 150 cc/hour as part of management of his acute renal failure. He had a BUN and creatinine of 57 and 2.8 on 01/04/2025 rising to a BUN and creatinine of 105 and 4.0, with creatinine now improving to 2.9. Physical Examination: GENERAL: No acute distress. HEAD: Normal with no signs of head trauma. EYES: PERRLA, EOMI, conjunctiva and sclera normal. NECK: Supple without JVD. There is no tenderness, lymphadenopathy, or masses. No thyromegaly. Normal carotid upstrokes without bruits. LUNGS: Clear breath sounds bilaterally. No wheezes, or rhonchi. HEART: Normal rate and rhythm. Normal S1 and S2 without murmurs, gallop or rub. VASC: Peripheral pulses +2 bilaterally. EXT: No clubbing, cyanosis or edema. Petechial hemorrhages noted to lower extremities, right foot with bruising noted at the base of the 1st and 2nd toes. NEURO: Awake, alert, and oriented x3. No focal neurological deficits noted. Laboratory: Hematology Labs: Test 01/07/25 08:04 Range/Units White Blood Count 11.2 H 4.8-10.8 K/uL Red Blood Count 4.47 L 4.50-6.20 MIL/uL Hemoglobin 14.5 14.0-18.0 g/dL Hematocrit 39.3 L 42-54 % Mean Corpuscular Volume 87.9 79-99 fL Mean Corpuscular Hemoglobin 32.4 27.0-33.0 pg Mean Corpuscular Hemoglobin Concent 36.9 H 32.0-36.0 g/dL Red Cell Distribution Width 12.9 11.0-15.5 % Platelet Count 41 #L 130-400 K/uL Mean Platelet Volume 12.8 H 7.5-10.5 fL Immature Granulocyte % (Auto) 0.9 0-1 % Neutrophils (%) (Auto) 90.1 H 40.0-77.0 % Lymphocytes (%) (Auto) 3.9 L 21.0-51.0 % Monocytes (%) (Auto) 4.9 3.0-13.0 % Eosinophils (%) (Auto) 0.0 0.0-8.0 % Basophils (%) (Auto) 0.2 0.0-5.0 % Neutrophils # (Auto) 10.1 H 1.8-7.7 K/uL Lymphocytes # (Auto) 0.4 L 1.0-4.8 K/uL Monocytes # (Auto) 0.6 0.1-1.0 K/uL Eosinophils # (Auto) 0.00 0.00-0.70 K/uL Basophils # (Auto) 0.02 0.00-0.20 K/uL Absolute Immature Granulocyte (auto 0.10 0-1 K/uL Nucleated Red Blood Cells 0.0 0.0-0.19 % Chemistry Labs: Test 01/07/25 16:00 01/07/25 12:00 01/07/25 08:04 01/06/25 21:22 Range/Units Whole Blood Glucose 204 H 70-110 MG/DL Sodium Level 135 L 136-145 mmol/L Potassium Level 3.1 L 3.5-5.1 mmol/L Chloride Level 105 101-111 mmol/L Carbon Dioxide Level 17 L 21-32 mmol/L Blood Urea Nitrogen 100 *H 7-18 mg/dL Creatinine 2.9 H 0.5-1.3 mg/dL Glomerular Filtration Rate Calc 27 >90 mL/min Random Glucose 217 H 70-105 mg/dL Total Calcium 6.6 L 8.5-10.1 mg/dL Magnesium Level 2.80 H 1.80-2.40 mg/dL Total Bilirubin 2.7 H 0.2-1.0 mg/dL Aspartate Amino Transf (AST/SGOT) 38 H 10-37 U/L Alanine Aminotransferase (ALT/SGPT) 32 12-78 U/L Alkaline Phosphatase 86 50-136 U/L Total Protein 6.2 6.0-8.3 g/dL Albumin 1.7 L 3.5-5.0 g/dL Bedside Glucose Comment Protocol Initiated Test 01/06/25 13:52 Range/Units Whole Blood Ketones Quantitative 0.6 0.0-0.6 mmol/L Diagnostics / Radiology: 2D echocardiogram 01/05/2025: Conclusion The left ventricle is normal size. LVEF is 60-65%. Indeterminate diastolic dysfunction. The right ventricle is normal size. The right ventricular systolic function is normal. The left atrium size is normal. The right atrium size is normal. The aortic valve is trileaflet and opens well. Right coronary cusp leaflet appears to have a vegeration. IVC is dilated and collapses >50% with inspiration. There is no pericardial effusion. 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 Urinary tract infection with Klebsiella pneumoniae: -continue antibiotic therapy Evidence of cholecystitis on HIDA scan 01/07/2025: Acute renal failure with admission BUN and creatinine of 57 and 2.8 with BUN and creatinine rising to 105 and 4.0: -the patient has been receiving normal saline at 150 cc/hour and is complaining of dyspnea today -reduced normal saline 250 cc/hour and obtain a chest x-ray -begin furosemide 20 mg IV q.12 hours -a chest x-ray from 01/04/2025 demonstrated no significant CHF Comorbidities: Hypertension Hyperlipidemia Coronary artery disease status post prior PTCA and stent procedure to the LAD 12/19/2015 , presenting as a non ST segment elevation IN in the setting of hypertensive emergency Probable sleep apnea Alcohol and cocaine abuse KARMA LUNDBERG MD Jan 07, 2025 16:47
--- NOTE | 2025-01-07 17:01 | PN ---
[facility] PROGRESS NOTE Date Patient Seen: Jan 07, 2025 Time of Visit: 16:42 Supervising Physician: Dr. Inman Primary Care Physician: General Car Yard Supervisor PCP Outpatient Specialists: [ ] Inpatient Consults:Critical care, Hematology, cardiology and nephrology PROBLEM LIST: Severe sepsis and shock POA Urinary tract infection, POA Klebsiella pneumoniae cultured in the urine Staph aureus bacteremia POA Strep pharyngitis, POA Acute kidney injury, POA improving Hypokalemia, POA improving Hyponatremia, POA improving Thrombocytopenia, POA improving Uncontrolled Diabetes mellitius type2, POA HgA1C 8.5 Elevated troponin, POA suspected type II MD Substance abuse, POA, cocaine/Marijuana Alcohol dependence, POA Tobacco dependence, POA Morbid obesity Noncompliance behavior INTERVAL HISTORY: 01/06/2025: At the time of my evaluation, the patient is in his assigned room. He is awake alert and afebrile. Respiratory barron the patient is maintaining optimal oxygenation and saturation on room air. On the monitor, the patient remains hemodynamically stable. He is feeding orally and denies any abdominal pain, nausea, vomiting or diarrhea. The patient continues to void spontaneously and on I's and O's, he maintains a -1050.0. On laboratory, the WBC count improved from 13.1 yesterday to 10.5 today. He continues on broad-spectrum antibiotic coverage currently on doxycycline and Zosyn. Also, the sodium count remains low but is slowly improving, potassium is low 3.2, chloride of 91, BUN of 98, creatinine of 4.0 and a GFR of 18. Blood glucose of remain elevated in the 400s. Blood cultures are currently showing Gram-positive cocci in clusters and urine culture showing Gram-negative rods. No new imaging for review. No other complaint. 01/07/2025: At the time of my evaluation, the patient was lying in bed. Per the staff nurse, no acute events overnight. Patient reports feeling much better today and family members were present at the bedside. Continues breathing on room air. No new chest imaging for review today. No shortness a breath or increased work of breathing and SpO2 maintain above 92%. On the monitor, the patient is hemodynamically stable. Denies any chest pain and no arrhythmias we re noted. The patient is feeding orally currently we will be started on clear liquid diet and there is no nausea, vomiting or diarrhea. The patient is voiding, total voided volume of 2050 mL and a net balance of 450.0. Denies any constipation. On labs today, CBC showed an interval increase in WBC to 11.2. Chemistry panel showed improving electrolytes, the today sodium 135, potassium 3.1, chloride 105, CO2 of 17, BUN of 100, creatinine of 2.9 and a GFR of with a 27. Total calcium of 6.6. Total bili of 2.7, AST 38, ALT of 32 and alk-phos of 86. Blood glucose overnight was persistently in the 400 for which the patient was brought into the ICU and started on insulin drip. Microbiology data showed staph aureus cultured in 1 of 2 blood culture vials and there was Klebsiella pneumoniae in the urine. No other complaint. REVIEW OF SYSTEMS: 12 point ROS reviewed with patient. Pertinent positives mentioned above. Otherwise negative. PHYSICAL EXAM: GENERAL: alert, weak, awake oriented x 3 HEENT: EOMI, Sclera non icteric, moist mucosa NECK: Supple, no JVD, trachea midline LUNGS: Clear breath sounds bilaterally. No wheezes HEART: Regular rate and rhythm. Normal S1 and S2, without murmurs ABD: Abdomen soft, nontender. Bowel sounds present EXT: No clubbing cyanosis or edema NEURO: Alert and oriented to person, follows commands Vital Signs (last 8hr) Date Time Temp Pulse Resp B/P (MAP) Pulse Ox O2 Delivery O2 Flow Rate FiO2 01/07/25 16:22 99 Nasal Cannula* 2 28 01/07/25 15:46 97.0 69 20 154/55 98 Nasal Cannula 2.0 01/07/25 14:46 71 20 144/93 97 Room Air 01/07/25 13:47 73 12 163/89 98 Room Air 01/07/25 12:46 57 18 167/90 99 Room Air 01/07/25 11:46 68 15 133/80 97 Room Air 01/07/25 11:32 98 Room Air* 0 21 01/07/25 10:46 73 15 141/96 97 Room Air 01/07/25 10:01 98.4 68 14 143/86 99 Room Air 01/07/25 09:16 69 17 156/102 98 Room Air 01/07/25 09:01 66 13 156/98 99 Room Air 01/07/25 08:47 75 15 165/112 99 Room Air LABS: Hematology Labs: Test 01/07/25 08:04 Range/Units White Blood Count 11.2 H 4.8-10.8 K/uL Red Blood Count 4.47 L 4.50-6.20 MIL/uL Hemoglobin 14.5 14.0-18.0 g/dL Hematocrit 39.3 L 42-54 % Mean Corpuscular Volume 87.9 79-99 fL Mean Corpuscular Hemoglobin 32.4 27.0-33.0 pg Mean Corpuscular Hemoglobin Concent 36.9 H 32.0-36.0 g/dL Red Cell Distribution Width 12.9 11.0-15.5 % Platelet Count 41 #L 130-400 K/uL Mean Platelet Volume 12.8 H 7.5-10.5 fL Immature Granulocyte % (Auto) 0.9 0-1 % Neutrophils (%) (Auto) 90.1 H 40.0-77.0 % Lymphocytes (%) (Auto) 3.9 L 21.0-51.0 % Monocytes (%) (Auto) 4.9 3.0-13.0 % Eosinophils (%) (Auto) 0.0 0.0-8.0 % Basophils (%) (Auto) 0.2 0.0-5.0 % Neutrophils # (Auto) 10.1 H 1.8-7.7 K/uL Lymphocytes # (Auto) 0.4 L 1.0-4.8 K/uL Monocytes # (Auto) 0.6 0.1-1.0 K/uL Eosinophils # (Auto) 0.00 0.00-0.70 K/uL Basophils # (Auto) 0.02 0.00-0.20 K/uL Absolute Immature Granulocyte (auto 0.10 0-1 K/uL Nucleated Red Blood Cells 0.0 0.0-0.19 % Chemistry Labs: Test 01/07/25 16:00 01/07/25 12:00 01/07/25 08:04 01/06/25 21:22 Range/Units Whole Blood Glucose 204 H 70-110 MG/DL Sodium Level 135 L 136-145 mmol/L Potassium Level 3.1 L 3.5-5.1 mmol/L Chloride Level 105 101-111 mmol/L Carbon Dioxide Level 17 L 21-32 mmol/L Blood Urea Nitrogen 100 *H 7-18 mg/dL Creatinine 2.9 H 0.5-1.3 mg/dL Glomerular Filtration Rate Calc 27 >90 mL/min Random Glucose 217 H 70-105 mg/dL Total Calcium 6.6 L 8.5-10.1 mg/dL Magnesium Level 2.80 H 1.80-2.40 mg/dL Total Bilirubin 2.7 H 0.2-1.0 mg/dL Aspartate Amino Transf (AST/SGOT) 38 H 10-37 U/L Alanine Aminotransferase (ALT/SGPT) 32 12-78 U/L Alkaline Phosphatase 86 50-136 U/L Total Protein 6.2 6.0-8.3 g/dL Albumin 1.7 L 3.5-5.0 g/dL Bedside Glucose Comment Protocol Initiated Test 01/06/25 13:52 Range/Units Whole Blood Ketones Quantitative 0.6 0.0-0.6 mmol/L DIAGNOSTICS / RADIOLOGY RESULTS: [ ] PLAN Upon evaluation of this patient, he did meet criteria for severe sepsis. The patient was awake, alert and oriented x4. He was breathing on room air and did not require no oxygen supplementation at the time. On the monitor, he was hemodynamically stable and was not on any pressor therapy. The patient was feeding orally and denied any nausea vomiting or diarrhea. The patient was voiding spontaneously and denied any constipation. Because of the septic process the patient was started on antibiotic coverage and is currently receiving doxycycline and Zosyn. We will follow the culture results and adjust therapy as necessary. We will also follow the WBC trend and we will adjust therapy as necessary. We will repeat surveillance labs in the morning. We will monitor the patient's progress and response to management. Appreciate the opportunity given to participate in patient's care. We will follow along with you. We will continue to provide general supportive care, GI and DVT prophylaxis. Further orders per attending MD and hospital course. 01/07/2025: For now, we are going to continue current management for the patient. Patient will continue on room air and we will provide oxygen supplementation as necessary. We will monitor for any arrhythmias or other cardiac events. We will monitor the oral intake and supplement as necessary. We will monitor the urinary output and bowel activity. The patient is going to continue on the insulin drip and we will adjust the Lantus to 15units q.12 for total of 30 units per24 hour and we will wean off once the blood glucose continues to normalized. We will continue IV fluids ordered. The patient will also continue on antibiotic therapy ordered, which has now been changed to cefazolin. We will repeat surveillance labs in the morning. We will monitor the patient's progress and response to management. We will continue to provide general supportive care, GI and DVT prophylaxis. Further orders per attending MD and hospital course. NEURO: Minimize central acting medications as possible. Fall Precautions. Well lighted room through the day and minimize interruptions through the night to prevent acute delirium. PULMONARY: Supplemental 02 as needed Titrate Fio2 to keep Spo2 > or = 90% DuoNebs and CPT as needed IS hourly while awake for pulmonary hygiene Out of bed to chair as tolerated VAP Bundle CARDIOVASCULAR: Follow hemodynamics. Titrate vasopressor to keep MAP >65 or systolic blood pressure >95mmHg DIPS: None LINES: PIV's GI & NUTRITION: Continue nutritional support Aspirations precautions Prokinetic agents and laxatives as needed KIDNEYS & ELECTROLYTES: Strict monitoring of intake and output Daily weights Avoid nephrotoxic agents Monitor electrolytes and replace as needed Goal urine output of 30mL/hr or 0.5mL/kg/hr Urine output: [ ] Fluid Balance: [ ] ENDOCRINE: Maintain blood glucose between 100-180 at all times. Insulin sliding scale for blood glucose management INFECTIOUS DISEASE: Trend temperature. Mccormack-culture if febrile. Micro: [ ] Antibiotics: [ ] HEMATOLOGY & COAGULATION: Monitor H&H. Keep Hgb > 7 Transfuse 1 unit of PRBC for Hgb < 7 Transfuse 1 pack of platelets of platelets < 20, 000 Watch for any signs and symptoms of bleeding SKIN: Pressure ulcer prevention per facility protocol Rehab: PT/OT Prophylaxis: GI: Protonix DVT: [ ] Code Status: Full Resuscitation Disposition: [ ] Other: Total patient care time exceeds 35 minutes excluding all procedures. Case was discussed and seen with my supervising physician. The above plan was formulated and agreed upon. RHEA ALICEA NP Jan 07, 2025 17:01
--- NOTE | 2025-01-07 17:03 | NUR ---
bun 100 for last 3 draws on cmp, consistent with labs from admission, mds are aware of kidney function.
--- NOTE | 2025-01-07 17:46 | NUR ---
attempted to notify evangelina desir with sx ,pending response for HIDA scan results. pt has no current abd pain, tolerating CLD.
--- NOTE | 2025-01-07 20:12 | PN ---
INFECTIOUS DISEASE FOLLOWUP NOTE DATE OF SERVICE: 01/07/2025 SUBJECTIVE: The patient is seen and examined at bedside. No fever or chills. Denies chest pain. No palpitation or orthopnea. The patient remained in ICU. No bleeding tendency. No sore throat. No rhinorrhea. Some cough. No hemoptysis or pleuritic pain. Denied rashes or itchiness. No depression. No suicidal ideation. PHYSICAL EXAMINATION: VITAL SIGNS: Temperature 98.5. EYES: No icterus. Pupils equal and reactive. HENT: No oral lesions seen. Moist oral mucosa. NECK: Supple, no JVD or thyromegaly. LUNGS: Good air entry. No rales, no rhonchi. CARDIOVASCULAR: S1, S2 regular. No murmur or gallop. ABDOMEN: Obese, soft, nontender. Bowel sounds present. CENTRAL NERVOUS SYSTEM: Awake, alert, oriented x 3. No focal deficits. SKIN: No rashes or itchiness. LYMPHATIC: No peripheral lymphadenopathy. MUSCULOSKELETAL: No joint swelling, erythema or tenderness. BACK: No deformity, no pressure ulcer. LABORATORY DATA: WBC 10.2, hemoglobin 14.5, platelets 41. Sodium 135, potassium 3.5, BUN 100, creatinine 2.9. Urine toxicology positive for cocaine. Blood cultures are growing MSSA. Urine culture grew Klebsiella pneumoniae. RADIOLOGY: A 2D echocardiogram shows aortic regurgitation. ASSESSMENT: A 44-year-old male with multiple problems which include: * MSSA bacteremia and sepsis. * Gram-negative urinary tract infection. * Morbid obesity. * Aortic valve endocarditis. * Cocaine abuse. * Thrombocytopenia. * Hypokalemia. * Possible liver cirrhosis. PLAN: * Discontinue vancomycin. * Start the patient on cefazolin. * Continue critical care support. * Continue doxycycline. * Continue pain management. * Continue antiemetic. * Monitor electrolytes and correct as needed. TID: [id number] RECEIPT: [id number]
[2025-01-07 20:26] LABS: CREATININE 2.9 mg/dL (0.5-1.3); POTASSIUM 3.7 mmol/L (3.5-5.1)
[2025-01-07] MEDS: INSULIN GLARgine 100 UNITS/ML 10 ML VIAL SQ SCH (21:07)
[2025-01-08] VITALS (27 sets, daily range): BP systolic 106–185; BP diastolic 42–107; PULSE 61–83; RESP 9–28; TEMP 94.1–98.8; O2SAT 96–99
[2025-01-08 01:03] LABS: CREATININE 2.7 mg/dL (0.5-1.3); POTASSIUM 4.8 mmol/L (3.5-5.1)
[2025-01-08] MEDS: CALCIUM GLUC 1GM 1 GM in 0.9%NACL 100ML 90 ML IV PRN (03:34)
[2025-01-08] MEDS: acetaMINOPHEN 325 MG TAB PO PRN (04:21)
[2025-01-08 05:07] LABS: HEMATOCRIT 41.3 % (42-54); MEAN CORPUSCULAR HEMOGLOBIN 32.6 pg (27.0-33.0); MEAN CORPUSCULAR HGB CONC 36.8 g/dL (32.0-36.0); MEAN CORPUSCULAR VOLUME 88.6 fL (79-99); RED BLOOD CELL COUNT(AUTO) 4.66 MIL/uL (4.50-6.20); RED CELL DISTRIBUTION WIDTH 13.1 % (11.0-15.5); WHITE BLOOD COUNT (AUTO) 12.4 K/uL (4.8-10.8)
[2025-01-08 05:32] LABS: ALBUMIN 1.9 g/dL (3.5-5.0); BILIRUBIN,TOTAL 1.9 mg/dL (0.2-1.0); CREATININE 2.8 mg/dL (0.5-1.3); MAGNESIUM 2.5 mg/dL (1.80-2.40); PHOSPHORUS 3.9 mg/dL (2.5-4.9); POTASSIUM 3.5 mmol/L (3.5-5.1); TOTAL PROTEIN, SERUM 6.5 g/dL (6.0-8.3)
[2025-01-08] MEDS: hydrALAZine 20MG/ML VIAL IV PRN (06:31)
[2025-01-08 07:49] LABS: BASOPHILS # (AUTO) 0.03 K/uL (0.00-0.20); BASOPHILS % (AUTO) 0.2 % (0.0-5.0); IMMATURE GRANULOCYTE ABSOLUTE 0.14 K/uL (0-1); LYMPHOCYTES # (AUTO) 0.6 K/uL (1.0-4.8); LYMPHOCYTES % (AUTO) 4.8 % (21.0-51.0); MEAN CORPUSCULAR HEMOGLOBIN 31.9 pg (27.0-33.0); MEAN CORPUSCULAR HGB CONC 35.8 g/dL (32.0-36.0); MONOCYTES # (AUTO) 0.8 K/uL (0.1-1.0); MONOCYTES % (AUTO) 5.9 % (3.0-13.0); NEUTROPHILS # (AUTO) 11.3 K/uL (1.8-7.7); PLATELET COUNT (AUTO) 57 K/uL (130-400); RED BLOOD CELL COUNT(AUTO) 4.83 MIL/uL (4.50-6.20); RED CELL DISTRIBUTION WIDTH 13.3 % (11.0-15.5); WHITE BLOOD COUNT (AUTO) 12.8 K/uL (4.8-10.8)
[2025-01-08] MEDS: PoTASSium chl 10% ELIXIR 20MEQ 20 MEQ/15 ML UDCUP PO PRN (08:00)
[2025-01-08 08:05] LABS: ALBUMIN 1.9 g/dL (3.5-5.0); BILIRUBIN,TOTAL 1.8 mg/dL (0.2-1.0); CREATININE 2.6 mg/dL (0.5-1.3); POTASSIUM 3.4 mmol/L (3.5-5.1); TOTAL PROTEIN, SERUM 6.6 g/dL (6.0-8.3)
--- NOTE | 2025-01-08 10:00 | HMCIMG ---
ULTRASOUND ABDOMEN COMPLETE INDICATION: Abdominal Pain COMPARISON: 01/05/2025 CT abdomen and pelvis. FINDINGS: The liver is enlarged and increased in echogenicity; no focal lesion demonstrated. Length is measured at 21.6 cm Main portal vein is patent, and normal direction of vascular flow demonstrated. The common bile duct caliber measures 4.0 mm. Echogenic shadowing gallstones without associated pericholecystic fluid. No sonographic Dominguez's sign elicited by the ultrasound industrial gas production operator. Wall thickness measures 2.0 mm. The spleen is normal in size and echotexture. The spleen measures 9.8 cm. Visible portions of the pancreas appear unremarkable. The right kidney measures 12.6 x 6.3 x 6.6 cm,and is normal in echogenicity, without evidence for hydronephrosis or shadowing stones. The left kidney measures 12.8 x 8.1 x 6.0 cm,and is normal in echogenicity, without evidence for hydronephrosis or shadowing stones. Visible portions of the abdominal aorta are within normal limits. Visible portions of the inferior vena cava are within normal limits. No free fluid demonstrated. IMPRESSION: Cholelithiasis without sonographic evidence for cholecystitis. Findings suggesting hepatomegaly and hepatic steatosis or other underlying hepatocellular disease process.
--- NOTE | 2025-01-08 10:30 | HMCIMG ---
PORTABLE CHEST RADIOGRAPH INDICATION: sob COMPARISON: 01/04/2025 FINDINGS: cardiac monitor leads overlie the field of view. Heart size is normal. The pulmonary vascularity and jimmie appear normal. No abnormal pulmonary parenchymal opacity or consolidation identified. No significant pleural effusion noted. No pneumothorax detected. IMPRESSION: No radiographic evidence for any acute cardiopulmonary process.
[2025-01-08 12:46] LABS: CREATININE 2.5 mg/dL (0.5-1.3); POTASSIUM 3.5 mmol/L (3.5-5.1)
--- NOTE | 2025-01-08 13:27 | PN ---
[facility] PROGRESS NOTE Date Patient Seen: Jan 08, 2025 Time of Visit: 13:21 Supervising Physician: Dr. Inman Primary Care Physician: Business Development Sales Executive PCP Outpatient Specialists: [ ] Inpatient Consults:Critical care, Hematology, cardiology and nephrology PROBLEM LIST: Severe sepsis and shock POA Urinary tract infection, POA Klebsiella pneumoniae cultured in the urine Staph aureus bacteremia POA Aortic valve endocarditis with mobile vegetation Strep pharyngitis, POA Acute kidney injury, POA improving Hypokalemia, POA improving Hyponatremia, POA improving Thrombocytopenia, POA improving Uncontrolled Diabetes mellitius type2, POA HgA1C 8.5 Elevated troponin, POA suspected type II SD Substance abuse, POA, cocaine/Marijuana Alcohol dependence, POA Tobacco dependence, POA Hepatomegaly with hepatosteatosis MELD score on admission of 31 Morbid obesity Noncompliance behavior INTERVAL HISTORY: 01/06/2025: At the time of my evaluation, the patient is in his assigned room. He is awake alert and afebrile. Respiratory barron the patient is maintaining optimal oxygenation and saturation on room air. On the monitor, the patient remains hemodynamically stable. He is feeding orally and denies any abdominal pain, nausea, vomiting or diarrhea. The patient continues to void spontaneously and on I's and O's, he maintains a -1050.0. On laboratory, the WBC count improved from 13.1 yesterday to 10.5 today. He continues on broad-spectrum antibiotic coverage currently on doxycycline and Zosyn. Also, the sodium count remains low but is slowly improving, potassium is low 3.2, chloride of 91, BUN of 98, creatinine of 4.0 and a GFR of 18. Blood glucose of remain elevated in the 400s. Blood cultures are currently showing Gram-positive cocci in clusters and urine culture showing Gram-negative rods. No new imaging for review. No other complaint. 01/07/2025: At the time of my evaluation, the patient was lying in bed. Per the staff nurse, no acute events overnight. Patient reports feeling much better today and family members were present at the bedside. Continues breathing on room air. No new chest imaging for review today. No shortness a breath or increased work of breathing and SpO2 maintain above 92%. On the monitor, the patient is hemodynamically stable. Denies any chest pain and no arrhythmias were noted. The patient is feeding orally currently we will be started on clear liquid diet and there is no nausea, vomiting or diarrhea. The patient is voiding, total voided volume of 2050 mL and a net balance of 450.0. Denies any constipation. On labs today, CBC showed an interval increase in WBC to 11.2. Chemistry panel showed improving electrolytes, the today sodium 135, potassium 3.1, chloride 105, CO2 of 17, BUN of 100, creatinine of 2.9 and a GFR of with a 27. Total calcium of 6.6. Total bili of 2.7, AST 38, ALT of 32 and alk-phos of 86. Blood glucose overnight was persistently in the 400 for which the patient was brought into the ICU and started on insulin drip. Microbiology data showed staph aureus cultured in 1 of 2 blood culture vials and there was Klebsiella pneumoniae in the urine. No other complaint. 01/08/2025: At the time of my evaluation, the patient was lying in bed. Per the staff nurse, no acute events overnight. Respiratory barron the patient is maintaining optimal oxygenation and saturation on room air. No chest imaging for review today. No shortness a breath or increased work of breathing and SpO2 maintain above 92%. On the monitor, the patient is hemodynamically stable. Denies any chest pain and no arrhythmias were noted. The patient is feeding orally and there is no nausea, vomiting or diarrhea. The patient is voiding spontaneously in a urinal with voided volume of 4500 and a net fluid balance of -1248.0. The patient continues on insulin drip 5 units/hour and blood sugars have maintained in the mid 100s. On labs today, CBC showed WBC of 12.4. Chemistry panel showed improving renal parameters today BUN 95 and a creatinine of 2.5, GFR of 32. Liver function showed a total bili of 1.8, AST 38 and ALT 34. No other complaint. REVIEW OF SYSTEMS: 12 point ROS reviewed with patient. Pertinent positives mentioned above. Otherwise negative. PHYSICAL EXAM: GENERAL: alert, weak, awake oriented x 3 HEENT: EOMI, Sclera non icteric, moist mucosa NECK: Supple, no JVD, trachea midline LUNGS: Clear breath sounds bilaterally. No wheezes HEART: Regular rate and rhythm. Normal S1 and S2, without murmurs ABD: Abdomen soft, nontender. Bowel sounds present EXT: No clubbing cyanosis or edema NEURO: Alert and oriented to person, follows commands Vital Signs (last 8hr) Date Time Temp Pulse Resp B/P (MAP) Pulse Ox O2 Delivery O2 Flow Rate FiO2 01/08/25 11:46 82 19 158/106 98 Room Air 01/08/25 11:20 97.5 01/08/25 10:25 81 20 139/90 98 Room Air 01/08/25 08:47 75 17 162/95 97 Room Air 01/08/25 07:46 73 18 106/42 98 Room Air 01/08/25 07:46 96 Nasal Cannula* 2 28 01/08/25 06:45 98.8 71 19 146/54 96 Nasal Cannula 2.0 01/08/25 06:00 61 14 185/76 100 Nasal Cannula 2.0 01/08/25 05:46 61 14 185/76 100 Nasal Cannula 2.0 LABS: Hematology Labs: Test 01/08/25 07:38 Range/Units White Blood Count 12.8 H 4.8-10.8 K/uL Red Blood Count 4.83 4.50-6.20 MIL/uL Hemoglobin 15.4 14.0-18.0 g/dL Hematocrit 43.0 42-54 % Mean Corpuscular Volume 89.0 79-99 fL Mean Corpuscular Hemoglobin 31.9 27.0-33.0 pg Mean Corpuscular Hemoglobin Concent 35.8 32.0-36.0 g/dL Red Cell Distribution Width 13.3 11.0-15.5 % Platelet Count 57 L 130-400 K/uL Mean Platelet Volume 13.0 H 7.5-10.5 fL Immature Granulocyte % (Auto) 1.1 H 0-1 % Neutrophils (%) (Auto) 88.0 H 40.0-77.0 % Lymphocytes (%) (Auto) 4.8 L 21.0-51.0 % Monocytes (%) (Auto) 5.9 3.0-13.0 % Eosinophils (%) (Auto) 0.0 0.0-8.0 % Basophils (%) (Auto) 0.2 0.0-5.0 % Neutrophils # (Auto) 11.3 H 1.8-7.7 K/uL Lymphocytes # (Auto) 0.6 L 1.0-4.8 K/uL Monocytes # (Auto) 0.8 0.1-1.0 K/uL Eosinophils # (Auto) 0.00 0.00-0.70 K/uL Basophils # (Auto) 0.03 0.00-0.20 K/uL Absolute Immature Granulocyte (auto 0.14 0-1 K/uL Nucleated Red Blood Cells 0.0 0.0-0.19 % Chemistry Labs: Test 01/08/25 12:12 01/08/25 12:07 01/08/25 07:38 01/08/25 04:49 Range/Units Whole Blood Glucose 145 H 70-110 MG/DL Sodium Level 137 136-145 mmol/L Potassium Level 3.5 3.5-5.1 mmol/L Chloride Level 107 101-111 mmol/L Carbon Dioxide Level 16 L 21-32 mmol/L Blood Urea Nitrogen 95 *H 7-18 mg/dL Creatinine 2.5 H 0.5-1.3 mg/dL Glomerular Filtration Rate Calc 32 >90 mL/min Random Glucose 145 H 70-105 mg/dL Total Calcium 7.1 L 8.5-10.1 mg/dL Total Bilirubin 1.8 H 0.2-1.0 mg/dL Aspartate Amino Transf (AST/SGOT) 38 H 10-37 U/L Alanine Aminotransferase (ALT/SGPT) 34 12-78 U/L Alkaline Phosphatase 102 50-136 U/L Total Protein 6.6 6.0-8.3 g/dL Albumin 1.9 L 3.5-5.0 g/dL Phosphorus Level 3.9 2.5-4.9 mg/dL Magnesium Level 2.50 H 1.80-2.40 mg/dL Test 01/07/25 16:15 01/06/25 21:22 01/06/25 13:52 Range/Units B-Type Natriuretic Peptide 123 H 0-100 pg/mL Bedside Glucose Comment Protocol Initiated Whole Blood Ketones Quantitative 0.6 0.0-0.6 mmol/L DIAGNOSTICS / RADIOLOGY RESULTS: [ ] PLAN Upon evaluation of this patient, he did meet criteria for severe sepsis. The patient was awake, alert and oriented x4. He was breathing on room air and did not require no oxygen supplementation at the time. On the monitor, he was hemodynamically stable and was not on any pressor therapy. The patient was feeding orally and denied any nausea vomiting or diarrhea. The patient was voiding spontaneously and denied any constipation. Because of the septic process the patient was started on antibiotic coverage and is currently receiving doxycycline and Zosyn. We will follow the culture results and adjust therapy as necessary. We will also follow the WBC trend and we will adjust therapy as necessary. We will repeat surveillance labs in the morning. We will monitor the patient's progress and response to management. Appreciate the opportunity given to participate in patient's care. We will follow along with you. We will continue to provide general supportive care, GI and DVT prophylaxis. Further orders per attending MD and hospital course. 01/07/2025: For now, we are going to continue current management for the patient. Patient will continue on room air and we will provide oxygen supplementation as necessary. We will monitor for any arrhythmias or other c ardiac events. We will monitor the oral intake and supplement as necessary. We will monitor the urinary output and bowel activity. The patient is going to continue on the insulin drip and we will adjust the Lantus to 15units q.12 for total of 30 units per24 hour and we will wean off once the blood glucose continues to normalized. We will continue IV fluids ordered. The patient will also continue on antibiotic therapy ordered, which has now been changed to cefazolin. We will repeat surveillance labs in the morning. We will monitor the patient's progress and response to management. We will continue to provide general supportive care, GI and DVT prophylaxis. Further orders per attending MD and hospital course. 01/08/2025: For now, we are going to continue current management for the patient. Patient will continue on room air and we will provide oxygen supplementation as necessary. We will monitor for any arrhythmias or other cardiac events. The patient currently continues on clear liquid diet, I am go ing to advance the diet as tolerated if no surgical plans. We will monitor the oral intake and supplement as necessary. We will monitor the I&Os. The patient is going to continue on the insulin drip and we will adjust the Lantus to 20 units q.12 for total of 40 units per24 hour and we will wean off once the blood glucose has stabilized. The steroid dose has been decreased to 20 mg daily. We will continue IV fluids ordered. The patient will also continue on antibiotic therapy ordered. We will follow the cardiology plans for DRAKE due to the aortic valve endocarditis with mobile vegetation. We will repeat surveillance labs in the morning. We will monitor the patient's progress and response to management. We will continue to provide general supportive care, GI and DVT prophylaxis. Further orders per attending MD and hospital course. NEURO: Minimize central acting medications as possible. Fall Precautions. Well lighted room through the day and minimize interruptions through the night to prevent acute delirium. PULMONARY: Supplemental 02 as needed Titrate Fio2 to keep Spo2 > or = 90% DuoNebs and CPT as needed IS hourly while awake for pulmonary hygiene Out of bed to chair as tolerated VAP Bundle CARDIOVASCULAR: Follow hemodynamics. Titrate vasopressor to keep MAP >65 or systolic blood pressure >95mmHg DIPS: None LINES: PIV's GI & NUTRITION: Continue nutritional support Aspirations precautions Prokinetic agents and laxatives as needed KIDNEYS & ELECTROLYTES: Strict monitoring of intake and output Daily weights Avoid nephrotoxic agents Monitor electrolytes and replace as needed Goal urine output of 30mL/hr or 0.5mL/kg/hr Urine output: [ ] Fluid Balance: [ ] ENDOCRINE: Maintain blood glucose between 100-180 at all times. Insulin sliding scale for blood glucose management INFECTIOUS DISEASE: Trend temperature. Mccormack-culture if febrile. Micro: [ ] Antibiotics: [ ] HEMATOLOGY & COAGULATION: Monitor H&H. Keep Hgb > 7 Transfuse 1 unit of PRBC for Hgb < 7 Transfuse 1 pack of platelets of platelets < 20, 000 Watch for any signs and symptoms of bleeding SKIN: Pressure ulcer prevention per facility protocol Rehab: PT/OT Prophylaxis: GI: Protonix DVT: [ ] Code Status: Full Resuscitation Disposition: [ ] Other: Total patient care time exceeds 35 minutes excluding all procedures. Case was discussed and seen with my supervising physician. The above plan was formulated and agreed upon. RHEA ALICEA NP Jan 08, 2025 13:27
--- NOTE | 2025-01-08 13:43 | PN ---
[facility] PROGRESS NOTE Date of Service: Jan 08, 2025 Time of Service: 13:29 SUBJECTIVE: [ ] The patient has been seen and examined at bedside, no acute events overnight, the patient is comfortable, cooperating well, alert oriented x3, he is on a CIWA protocol, not combative. BP 123/70, rest of vital signs unremarkable. Patient received transfusion of 1 unit of platelet, platelet count improved to 27, per personnel security assistant, likely due to splenomegaly. Echocardiogram reviewed, hypodense echogenic mobile vegetation to right coronary cusp leaflet, per cardiology once platelet count is greater than 50 1000 we will proceed with a a DRAKE. The pat ient also with a elevated blood sugar, continue insulin sliding scale, add insulin glargine 20 units subcutaneously at bedtime. Continue the patient on broad-spectrum IV antibiotics, continue to trend WBC in a.m.. 01/07 patient is seen and examined at bedside, case discussed with the RN, patient upgraded last night to the ICU to start insulin drip as blood glucose pers istently greater than 400. Patient started on dexamethasone IV by personnel security assistant do to ITP. Platelet count slightly better today at 41. Upon my initial encounter with the patient admitted that he drinks more than 18 beers per day. He was started on CIWA protocol, however has remained hemodynamically stable, comfortable in bed, no signs of withdrawal, cooperating fine. Not agitated, not combative. Toxicology screen positive for cocaine. Sodium level slowly improving, today 132. Serology positive for influenza type A. The patient with significant proteinuria consistent with diabetic nephropathy, creatinine slowly trending down, no need for renal replacement therapy per standards analyst. Patient with blood culture positive for Staphylococcus aureus, with urine culture positive for Klebsiella pneumoniae. We will add vancomycin IV pharmacy to dose. We will request Infectious Disease consultation. Echocardiogram reviewed, hypodense echogenic mobile vegetation to right coronary cusp leaflet, per cardiology once platelet count is greater than 50 1000 we will proceed with a a DRAKE. CT abdomen with gallstones in the gallbladder. HIDA scan pending 01/08 patient seen at bedside, no acute events overnight. He continues on insulin drip with an anion gap of 14, we will continue until the gap is closed. Pl atelets 54, we will follow up with Cardiology on optimal timing for DRAKE. Continue with IV antibiotics, further care per critical Care. REVIEW OF SYSTEMS 12 point review of systems negative unless noted in HPI PHYSICAL EXAM GENERAL APPEARANCE: The patient is awake, alert, and oriented, in no acute cardiopulmonary distress. NEUROLOGICAL: Cranial nerves II-XII grossly intact. Motor is 5/5 in bilateral upper and lower extremities proximal to distal. No sensory deficits. HEENT: Face is symmetric. Pupils are equal and reactive. Extraocular movements are intact. NECK: Supple. No JVD. No thyromegaly. No submental, submandibular, pre- /postauricular, occipital or supraclavicular lymphadenopathy. CHEST: Normal chest expansion. No Telemetry. LUNGS: Absence of any rales, rhonchi or any wheezing. CARDIOVASCULAR: Regular. S1 and S2 normal. No appreciable rubs, murmurs or gallops. ABDOMEN: Soft, nontender, and nondistended. There is no rebound, voluntary guarding, or rigidity. : Deferred. No Ortega. EXTREMITIES: Non-edematous and not cyanotic. No clubbing. Good capillary refill. SKIN: No skin breakdown. Vital Signs (last 8hr) Date Time Temp Pulse Resp B/P (MAP) Pulse Ox O2 Delivery O2 Flow Rate FiO2 01/08/25 11:46 82 19 158/106 98 Room Air 01/08/25 11:20 97.5 01/08/25 10:25 81 20 139/90 98 Room Air 01/08/25 08:47 75 17 162/95 97 Room Air 01/08/25 07:46 73 18 106/42 98 Room Air 01/08/25 07:46 96 Nasal Cannula* 2 28 01/08/25 06:45 98.8 71 19 146/54 96 Nasal Cannula 2.0 01/08/25 06:00 61 14 185/76 100 Nasal Cannula 2.0 01/08/25 05:46 61 14 185/76 100 Nasal Cannula 2.0 LABS: Laboratory: Test 01/08/25 12:12 01/08/25 12:07 01/08/25 07:38 01/08/25 04:49 Range/Units Whole Blood Glucose 145 H 70-110 MG/DL Sodium Level 137 136-145 mmol/L Potassium Level 3.5 3.5-5.1 mmol/L Chloride Level 107 101-111 mmol/L Carbon Dioxide Level 16 L 21-32 mmol/L Blood Urea Nitrogen 95 *H 7-18 mg/dL Creatinine 2.5 H 0.5-1.3 mg/dL Glomerular Filtration Rate Calc 32 >90 mL/min Random Glucose 145 H 70-105 mg/dL Total Calcium 7.1 L 8.5-10.1 mg/dL White Blood Count 12.8 H 4.8-10.8 K/uL Red Blood Count 4.83 4.50-6.20 MIL/uL Hemoglobin 15.4 14.0-18.0 g/dL Hematocrit 43.0 42-54 % Mean Corpuscular Volume 89.0 79-99 fL Mean Corpuscular Hemoglobin 31.9 27.0-33.0 pg Mean Corpuscular Hemoglobin Concent 35.8 32.0-36.0 g/dL Red Cell Distribution Width 13.3 11.0-15.5 % Platelet Count 57 L 130-400 K/uL Mean Platelet Volume 13.0 H 7.5-10.5 fL Immature Granulocyte % (Auto) 1.1 H 0-1 % Neutrophils (%) (Auto) 88.0 H 40.0-77.0 % Lymphocytes (%) (Auto) 4.8 L 21.0-51.0 % Monocytes (%) (Auto) 5.9 3.0-13.0 % Eosinophils (%) (Auto) 0.0 0.0-8.0 % Basophils (%) (Auto) 0.2 0.0-5.0 % Neutrophils # (Auto) 11.3 H 1.8-7.7 K/uL Lymphocytes # (Auto) 0.6 L 1.0-4.8 K/uL Monocytes # (Auto) 0.8 0.1-1.0 K/uL Eosinophils # (Auto) 0.00 0.00-0.70 K/uL Basophils # (Auto) 0.03 0.00-0.20 K/uL Absolute Immature Granulocyte (auto 0.14 0-1 K/uL Nucleated Red Blood Cells 0.0 0.0-0.19 % Total Bilirubin 1.8 H 0.2-1.0 mg/dL Aspartate Amino Transf (AST/SGOT) 38 H 10-37 U/L Alanine Aminotransferase (ALT/SGPT) 34 12-78 U/L Alkaline Phosphatase 102 50-136 U/L Total Protein 6.6 6.0-8.3 g/dL Albumin 1.9 L 3.5-5.0 g/dL Phosphorus Level 3.9 2.5-4.9 mg/dL Magnesium Level 2.50 H 1.80-2.40 mg/dL Test 01/07/25 16:15 01/06/25 21:22 01/06/25 20:41 01/06/25 13:52 Range/Units B-Type Natriuretic Peptide 123 H 0-100 pg/mL Bedside Glucose Comment Protocol Initiated Blood Gas Specimen Type Venous Arterial Blood Oxygen Saturation 88.7 L 94.0-98.0 % Venous Blood pH 7.408 7.320-7.430 Venous Blood pCO2 at Patient Temp 24 L 38-54 Venous Blood pO2 at Patient Temp 55.4 H 23.0-48.0 mmHg Venous Blood HCO3 15.0 L 22.0-29.0 Venous Blood Base Excess -7.5 L -2.0-3.0 Venous Blood Total Hemoglobin 15.8 13.5-17.5 Sodium (Blood Gas) 127 L 136-145 MMOL/L Bedside Potassium (Blood Gas) 3.2 L 3.4-4.5 MMOL/L Bedside Chloride (Blood Gas) 98 98-107 MMOL/L Bedside Glucose (Blood Gas) 435 H 65-95 MG/DL Bedside Ionized Calcium (Blood Gas) 0.98 L 1.15-1.33 MMOL/L Bedside Lactic Acid (Blood Gas) 1.53 H 0.36-0.75 MMOL/L Blood Gas Temperature 37.0 35.5-37.0 CELSIUS Blood Gas Vent Mode RA ROOM AIR FiO2 21.0 % Blood Gas Specimen Comment [employer] PROFESSOR IVONN Whole Blood Ketones Quantitative 0.6 0.0-0.6 mmol/L Current Medications Medications (Trade) Dose Ordered Sig/Asya Route PRN Reason Start Time Stop Time Status Last Admin Dose Admin Acetaminophen (TYLenol 325MG TAB) 650 mg Q6H PRN PO TEMPERATURE GREATER THAN 101.5 01/05/25 02:30 02/04/25 02:29 01/08/25 04:21 650 MG Aspirin (Aspirin 81mg Chew Tab) 81 mg DAILY PO 01/05/25 09:00 01/05/25 09:53 DC Benzocaine (Cepacol Sore Throat Lozenge) 1 each Q4H PRN MM SORE THROAT 01/05/25 02:30 02/04/25 02:29 Calcium Gluconate 1 gm/Sodium Chloride 100 ml @ 0 mls/hr AD PRN IV Serum Calcium Correction 01/08/25 02:30 02/07/25 02:29 01/08/25 03:49 100 MLS/HR Cefazolin Sodium (Ancef) 2 gm Q12H IVPB 01/07/25 13:30 01/17/25 13:29 01/08/25 01:29 2 GM Chlordiazepoxide HCl (LIBrium 25 MG CAP) 25 mg Q8H PO 01/05/25 02:30 01/12/25 02:29 01/08/25 01:29 25 MG Dexamethasone Sodium Phosphate 20 mg/Sodium Chloride 52 ml @ 100 mls/hr DAILY IV 01/09/25 09:00 02/08/25 08:59 Dexamethasone Sodium Phosphate 40 mg/Sodium Chloride 50 ml @ 100 mls/hr DAILY IV 01/06/25 14:00 01/08/25 12:16 DC 01/08/25 09:34 100 MLS/HR Dextrose (D50w) 50 ml AD PRN IV HYPOGLYCEMIA PROTOCOL 01/05/25 10:00 02/04/25 09:59 Doxycycline Hyclate 250 ml @ 125 mls/hr Q12H IV 01/05/25 10:00 01/06/25 21:05 DC 01/06/25 09:30 125 MLS/HR Doxycycline Hyclate 250 ml @ 125 mls/hr Q12H IV 01/06/25 21:30 01/16/25 21:29 01/08/25 09:34 125 MLS/HR Folic Acid (FOLic ACID 1 MG TABLET) 1 mg DAILY PO 01/07/25 10:30 02/06/25 10:29 01/08/25 08:00 1 MG Furosemide (LASix 20MG VIAL) 20 mg Q12H IV 01/07/25 16:00 01/20/25 16:00 01/08/25 03:48 20 MG Glucagon (Glucagon 1mg Kit) 1 mg AD PRN IM HYPOGLYCEMIA PROTOCOL 01/05/25 10:00 02/04/25 09:59 Hydralazine HCl (APRESOLine 20MG INJ) 5 mg Q6H PRN IV For:SBP above 160;DBP above 90 01/05/25 14:30 02/04/25 14:29 01/08/25 06:31 5 MG Hydralazine HCl (APRESOLine 20MG INJ) 10 mg Q6H PRN IV For:SBP above 160;DBP above 90 01/05/25 02:30 01/05/25 09:53 DC Insulin Glargine (LANtus 100 UNITS/ML 10 ML VIAL) 15 units Q12H SQ 01/07/25 21:30 02/05/25 21:29 01/08/25 09:16 15 UNITS Insulin Glargine (LANtus 100 UNITS/ML 10 ML VIAL) 20 units HS SQ 01/06/25 21:00 01/06/25 21:05 DC Insulin Glargine (LANtus 100 UNITS/ML 10 ML VIAL) 20 units HS SQ 01/06/25 21:30 01/07/25 10:24 DC 01/06/25 21:33 20 UNITS Insulin Human Regular (humuLIN R 100 UNIT/ML 3ML) INSULIN SLIDING SCAL... ACHS SQ 01/05/25 07:30 01/05/25 09:57 DC 01/05/25 07:59 16 UNIT Insulin Human Regular (humuLIN R 100 UNIT/ML 3ML) INSULIN SLIDING SCAL... ACHS SQ 01/05/25 11:30 01/06/25 16:43 DC 01/06/25 11:50 8 UNIT Insulin Human Regular (humuLIN R 100 UNIT/ML 3ML) INSULIN SLIDING SCAL... ACHS SQ 01/06/25 17:00 01/07/25 13:32 DC 01/06/25 17:17 16 UNIT Insulin Human Regular 100 unit/ Sodium Chloride 100 ml @ 0 mls/hr AD PRN IV HYPERGLYCEMIA PROTOCOL 01/06/25 19:30 02/05/25 19:29 01/08/25 01:18 6 MLS/HR Lactated Ringer's 1,000 ml @ 100 mls/hr Q10H IV 01/05/25 02:30 01/05/25 09:51 DC 01/05/25 02:30 100 MLS/HR Lorazepam (AtiVAN) 1 mg Q4H PRN IVP ALCOHOL WITHDRAWAL PROTOCOL 01/05/25 02:30 01/12/25 02:29 Magnesium Sulfate 50 ml @ 0 mls/hr PROTOCOL PRN IV h 01/05/25 02:30 02/04/25 02:29 01/05/25 03:24 25 MLS/HR Morphine Sulfate (morPHINE 2MG SYG) 2 mg Q4H PRN IVP SEVERE PAIN (7-10) 01/05/25 02:30 01/12/25 02:29 Multivitamins Therapeutic (Multivitamin Tablet) 1 tab DAILY PO 01/07/25 10:30 02/06/25 10:29 01/08/25 08:00 1 TAB Nicotine (Nicoderm) 21 mg DAILY TD 01/05/25 09:00 02/04/25 08:59 01/08/25 08:01 21 MG Nitroglycerin (Nitrostat) 0.4 mg AD PRN SL CHEST PAIN 01/05/25 02:30 02/04/25 02:29 Ondansetron HCl (zoFRAN 4MG INJ) 4 mg Q6H PRN IV NAUSEA/VOMITING 01/05/25 02:30 02/04/25 02:29 Pantoprazole Sodium (PROTonix 40MG TAB) 40 mg DAILY PO 01/05/25 09:00 02/04/25 08:59 01/08/25 08:00 40 MG Pharmacy Profile Note (Pharmacy Communication) 1 each PROTOCOL PRN MISC ETOH Withdrawal Score changes 01/05/25 02:30 01/12/25 02:29 Piperacillin Sod/ Tazobactam Sod (Zosyn 3.375gm+NS 50ml) 3.375 gm Q12H IV 01/05/25 02:30 01/07/25 13:24 DC 01/07/25 02:45 3.375 GM Potassium Phosphate 250 ml @ 42 mls/hr PROTOCOL PRN IV PROTOCOL 01/05/25 10:00 02/04/25 09:59 Potassium Chloride 100 ml @ 100 mls/hr AD PRN IV POTASSIUM PROTOCOL 01/05/25 02:30 01/07/25 10:12 DC Potassium Chloride 100 ml @ 100 mls/hr AD PRN IV POTASSIUM PROTOCOL 01/07/25 10:30 02/06/25 10:29 Potassium Chloride (K-Dur 10meq Sr Tab) 10 meq AD PRN PO POTASSIUM PROTOCOL 01/06/25 09:30 02/04/25 02:29 01/07/25 15:51 10 MEQ Potassium Chloride (K-Dur/Klor-Con 20meq) 10 meq AD PRN PO POTASSIUM PROTOCOL 01/05/25 02:30 01/06/25 09:12 DC 01/05/25 22:15 10 MEQ Potassium Chloride (K-Dur/Klor-Con 20meq) 10 meq AD PRN PO POTASSIUM PROTOCOL 01/07/25 10:30 01/07/25 10:12 DC Potassium Chloride (KCl 10% Elixir 20meq/15ml) 10 meq AD PRN PO POTASSIUM PROTOCOL 01/05/25 02:30 01/07/25 10:12 DC 01/06/25 17:16 10 MEQ Potassium Chloride (KCl 10% Elixir 20meq/15ml) 10 meq AD PRN PO POTASSIUM PROTOCOL 01/07/25 10:30 02/06/25 10:29 01/08/25 09:10 10 MEQ Sodium Chloride 1,000 ml @ 50 mls/hr Q20H IV 01/05/25 10:00 02/04/25 09:59 01/08/25 09:34 50 MLS/HR Triamcinolone Acetonide (Kenalog/ Aristocort) 1 APPLY TP BID BID TP 01/07/25 11:00 02/06/25 10:59 01/08/25 08:01 1 APPL Vancomycin HCl (Vancomycin Protocol) 1 each AD IV 01/07/25 12:30 01/07/25 12:40 DC DIAGNOSTICS / RADIOLOGY: [ ] ASSESSMENT: Severe sepsis, POA Gram-positive bacteremia secondary to Staphylococcus aureus, POA Hypodense echogenic mobile vegetation to right coronary cusp leaflet on echocar diogram 01/05/2025 Urinary tract infection, secondary to Klebsiella pneumoniae, POA Strep pharyngitis, POA ITP, POA Leukocytosis, POA Hyperlactatemia, POA Acute kidney injury, POA Hypokalemia, POA Hyponatremia, POA Hypomagnesemia, POA POA New onset Uncontrolled Diabetes mellitius type2, POA Elevated troponin, POA Cocaine abuse, POA Alcohol abuse, POA Tobacco dependence, POA Significant proteinuria, POA Diabetic nephropathy, POA Gallstones, POA PLAN: -patient remains admitted to the ICU -continue the patient on insulin drip, transition to subcutaneous when anion gap 12 -continue close monitor the patient's blood glucose level, monitoring metabolic status. Endocrinology consultation requested, follow input and recommendation. -continue to monitor sodium level in a.m. -patient started on dexamethasone IV due to ITP per personnel security assistant. Continue to follow input and recommendations. -renal function slightly improved today, patient evaluated by standards analyst, the patient with significant proteinuria on UA consistent with diabetic nephropathy. No acute need for any form of renal replacement therapy. -blood culture positive for Staphylococcus aureus. Urine culture positive for Klebsiella pneumoniae. Continue vancomycin IV pharmacy to dose. ID consultation requested, follow input and recommendation. -Echocardiogram with hypodense echogenic mobile vegetation to right coronary cusp leaflet, per cardiology once platelet count is greater than 50,000 will proceed with a a DRAKE. -cholelithiasis noted on CT abdomen, HIDA scan pending -continue to follow critical care input and recommendation Disposition: Pending DRAKE, antibiotics, transition to subcutaneous insulin, cardiology recommendations All questions answered time spent: > 35 min ARVIND NOLAND MD Jan 08, 2025 13:43
--- NOTE | 2025-01-08 14:15 | PN ---
INFECTIOUS DISEASE PROGRESS NOTE Date of Service: Jan 08, 2025 SUBJECTIVE: This is a 44-year-old male patient who was admitted for chief complaint of weakness and status post fall at home. A Urine culture collected on admission came back positive for Klebsiella pneumoniae and the blood cultures results came back positive for Methicillin sensitive Staphylococcus aureus 2 of 2 sets and the reason for this consult. A 2D echo done on admission showed Aortic valve endocarditis and cardiology planning a DRAKE once antiplatelets normalized. Patient was seen and examined at bedside in room 217. Patient is awake, alert and oriented x3. Family member visiting at bedside. Patient's WBC is 12.8 and the Platelet level is 57. Continues on renal failure, BUN of 95 and creatinine of 2.5. No reports of fever, temperature is 98.8. Continues on cefazolin2 g IV every12 hours and doxycycline IV every2 hours. Will continue to follow patient's care. PHYSICAL EXAM EYES: Anicteric. Pupils equal and reactive. HENT: No oral thrush seen, moist Oral mucosa NECK: Supple, no JVD or thyromegaly. LUNGS: Good air entry. No rales, no rhonchi. CARDIOVASCULAR: S1, S2 regular. No murmur heard. ABDOMEN: Obese but Soft. CENTRAL NERVOUS SYSTEM: Awake, alert, oriented x 3. SKIN: No rashes, no swelling. LYMPHATICS: No peripheral lymphadenopathy MUSCULOSKELETAL: No joint swelling, erythema or tenderness. EXTREMITIES: No cyanosis or clubbing. Edematous. BACK: No deformity, no pressure ulcer. GENITOURINARY: No dysuria or hematuria. Vital Sign (Last 12 Hours) 01/08/25 01/08/25 01/08/25 01/08/25 02:00 03:00 04:00 04:00 Temp 94.1 Pulse 68 70 68 Resp 17 28 B/P (MAP) 133/81 153/78 147/64 Pulse Ox 98 100 99 99 O2 Delivery Nasal Cannula Nasal Cannula Nasal Cannula Nasal Cannula* O2 Flow Rate 2.0 2.0 2.0 2 FiO2 28 01/08/25 01/08/25 01/08/25 01/08/25 05:00 05:46 06:00 06:45 Temp 98.8 Pulse 63 61 61 71 Resp 12 14 14 19 B/P (MAP) 158/68 185/76 185/76 146/54 Pulse Ox 98 100 100 96 O2 Delivery Nasal Cannula Nasal Cannula Nasal Cannula Nasal Cannula O2 Flow Rate 2.0 2.0 2.0 2.0 01/08/25 01/08/25 01/08/25 01/08/25 07:46 07:46 08:47 10:25 Pulse 73 75 81 Resp 18 17 20 B/P (MAP) 106/42 162/95 139/90 Pulse Ox 96 98 97 98 O2 Delivery Nasal Cannula* Room Air Room Air Room Air O2 Flow Rate 2 FiO2 28 01/08/25 01/08/25 11:20 11:46 Temp 97.5 Pulse 82 Resp 19 B/P (MAP) 158/106 Pulse Ox 98 O2 Delivery Room Air Intake & Output (last 24hrs) 01/07/25 01/07/25 01/08/25 15:00 23:00 07:00 Intake Total 1690.0 ml 920.0 ml 541.0 ml Output Total 400 ml 1400 ml 2700 ml Balance 1290.0 ml -480.0 ml -2159.0 ml LABS: Laboratory: Test 01/08/25 12:12 01/08/25 12:07 01/08/25 07:38 01/08/25 04:49 Range/Units Whole Blood Glucose 145 H 70-110 MG/DL Sodium Level 137 136-145 mmol/L Potassium Level 3.5 3.5-5.1 mmol/L Chloride Level 107 101-111 mmol/L Carbon Dioxide Level 16 L 21-32 mmol/L Blood Urea Nitrogen 95 *H 7-18 mg/dL Creatinine 2.5 H 0.5-1.3 mg/dL Glomerular Filtration Rate Calc 32 >90 mL/min Random Glucose 145 H 70-105 mg/dL Total Calcium 7.1 L 8.5-10.1 mg/dL White Blood Count 12.8 H 4.8-10.8 K/uL Red Blood Count 4.83 4.50-6.20 MIL/uL Hemoglobin 15.4 14.0-18.0 g/dL Hematocrit 43.0 42-54 % Mean Corpuscular Volume 89.0 79-99 fL Mean Corpuscular Hemoglobin 31.9 27.0-33.0 pg Mean Corpuscular Hemoglobin Concent 35.8 32.0-36.0 g/dL Red Cell Distribution Width 13.3 11.0-15.5 % Platelet Count 57 L 130-400 K/uL Mean Platelet Volume 13.0 H 7.5-10.5 fL Immature Granulocyte % (Auto) 1.1 H 0-1 % Neutrophils (%) (Auto) 88.0 H 40.0-77.0 % Lymphocytes (%) (Auto) 4.8 L 21.0-51.0 % Monocytes (%) (Auto) 5.9 3.0-13.0 % Eosinophils (%) (Auto) 0.0 0.0-8.0 % Basophils (%) (Auto) 0.2 0.0-5.0 % Neutrophils # (Auto) 11.3 H 1.8-7.7 K/uL Lymphocytes # (Auto) 0.6 L 1.0-4.8 K/uL Monocytes # (Auto) 0.8 0.1-1.0 K/uL Eosinophils # (Auto) 0.00 0.00-0.70 K/uL Basophils # (Auto) 0.03 0.00-0.20 K/uL Absolute Immature Granulocyte (auto 0.14 0-1 K/uL Nucleated Red Blood Cells 0.0 0.0-0.19 % Total Bilirubin 1.8 H 0.2-1.0 mg/dL Aspartate Amino Transf (AST/SGOT) 38 H 10-37 U/L Alanine Aminotransferase (ALT/SGPT) 34 12-78 U/L Alkaline Phosphatase 102 50-136 U/L Total Protein 6.6 6.0-8.3 g/dL Albumin 1.9 L 3.5-5.0 g/dL Phosphorus Level 3.9 2.5-4.9 mg/dL Magnesium Level 2.50 H 1.80-2.40 mg/dL Test 01/07/25 16:15 01/06/25 21:22 01/06/25 20:41 01/06/25 13:52 Range/Units B-Type Natriuretic Peptide 123 H 0-100 pg/mL Bedside Glucose Comment Protocol Initiated Blood Gas Specimen Type Venous Arterial Blood Oxygen Saturation 88.7 L 94.0-98.0 % Venous Blood pH 7.408 7.320-7.430 Venous Blood pCO2 at Patient Temp 24 L 38-54 Venous Blood pO2 at Patient Temp 55.4 H 23.0-48.0 mmHg Venous Blood HCO3 15.0 L 22.0-29.0 Venous Blood Base Excess -7.5 L -2.0-3.0 Venous Blood Total Hemoglobin 15.8 13.5-17.5 Sodium (Blood Gas) 127 L 136-145 MMOL/L Bedside Potassium (Blood Gas) 3.2 L 3.4-4.5 MMOL/L Bedside Chloride (Blood Gas) 98 98-107 MMOL/L Bedside Glucose (Blood Gas) 435 H 65-95 MG/DL Bedside Ionized Calcium (Blood Gas) 0.98 L 1.15-1.33 MMOL/L Bedside Lactic Acid (Blood Gas) 1.53 H 0.36-0.75 MMOL/L Blood Gas Temperature 37.0 35.5-37.0 CELSIUS Blood Gas Vent Mode RA ROOM AIR FiO2 21.0 % Blood Gas Specimen Comment LB [employer] SUPERVISOR IVONN Whole Blood Ketones Quantitative 0.6 0.0-0.6 mmol/L DIAGNOSTICS / RADIOLOGY: PATIENT: ADAM MOE III ACCT: [id number] LOC: [facility] U: [id number] AGE/SX: 44/M ROOM: [facility] RE01/04/[address]: ARVIND NOLAND MD : 1980 BED: 1 DIS: STATUS: ADM IN TLOC: - SPEC: [id number] LEVAR: 01/05/25 STATUS: COMP REQ: [id number] RECD: 01/05/[address]: NEW REAVES MD SOURCE: BLOOD ENTR: 01/05/[address] [facility] [address]: SELF,REFERRAL [facility]: BLOOD ORDERED: AERO ID & SENS Procedure Result Jose Date-Time AEROBIC ID & SENSITIVITIES Final 01/07/25 MRL COLONY DESCRIPTION: DAY 1: GRAM POSITIVE COCCI IN CLUSTERS AEROBIC BOTTLE IDENTIFICATION AND SENSITIVITY TO FOLLOW STAPHYLOCOCCUS AUREUS S. AUREUS M.I.C. RX --------- ---- ERYTHROMYCIN <=0.5 S GENTAMICIN <=4 S LEVOFLOXACIN <=1 S VANCOMYCIN 1 S OXACILLIN SYLVIA <=0.25 S RIFAMPIN <=1 S PENICILLIN <=0.03 S TRIMETHOPRIM/SUFLAMETHOXAZOLE <=0.5/9.5 S PATIENT: ADAM MOE III ACCT: [id number] LOC: [facility] U: [id number] AGE/SX: 44/M ROOM: 217 RE01/04/[address]: ARVIND NOLAND MD : 1980 BED: 1 DIS: STATUS: ADM IN TLOC: SPEC: [id number] LEVAR: 01/04/25 STATUS: COMP REQ: [id number] RECD: 01/06/[address]: MAHOGANY CARBAJAL MD SOURCE: [place] ENTR: 01/06/[address] [facility] [address]: ANGELICA BOYER MD SPDESC: [facility],AMJASMEET NOLAND,ARVIND Suero MD SELF,REFERRAL ORDERED: AERO ID & SENS Procedure Result Jose Date-Time AEROBIC ID & SENSITIVITIES Final 01/07/25-737 [facility] COLONY DESCRIPTION: DAY 1: COLONY COUNT: >100,000 CFU/ML GRAM NEGATIVE RODS IDENTIFICATION AND SENSITIVITY TO FOLLOW KLEBSIELLA PNEUMONIAE K PNEUMO M.I.C. RX --------- ---- AZTREONAM <=4 S CEFAZOLIN <=2 S CEFTAZIDIME/AVIBACTAM 16 R GENTAMICIN <=2 S LEVOFLOXACIN <=0.5 S NITROFURANTOIN <=32 S MEROPENEM <=1 S PIPERACILLIN/TAZOBACTAM <=8 S TRIMETHOPRIM/SUFLAMETHOXAZOLE <=2/38 S ASSESSMENT: Methicillin-susceptible Staphylococcus aureus bacteremia. Urinary tract infection with Klebsiella pneumoniae. Leukocytosis. Aortic valve endocarditis, cardiology planning a DRAKE platelets level normalized. Thrombocytopenia. Acute on chronic renal failure. Cocaine abuse. Streptococcus viral infection. Debility. ETOH dependence. Uncontrolled diabetes mellitus. PLAN: Continue cefazolin IV. Continue doxycycline IV. Continue GI prophylaxis. Continue CIWA protocol. Retail Consultant following patient. Continue critical care support. Continue monitoring glucose levels. We will monitor electrolytes. This case was reviewed and discussed with my supervising physician and the above assessment and plan was formulated and agreed upon. ATTESTATION BY PHYSICIAN I have seen and examined the patient. I reviewed the documentation, medical decision making, and treatment plan as noted by the mid-level provider above. I agree with the findings and plan of care. JANUARY CARLSON MD, MIRTA L [facility] Jan 08, 2025 14:15
--- NOTE | 2025-01-08 14:19 | PN ---
NEPHROLOGY PROGRESS NOTE Date/Time Patient Seen: Jan 08, 2025 Reason for Consultation: 14:18 SUBJECTIVE: This is a is a 44-year-old male presented to the hospital with acute renal failure. The patient with gram-positive bacteremia and remains on the antibiotics. The patient's workup is consistent with significant renal dysfunction. The patient with undiagnosed diabetes mellitus and he is being seen as a followup visit for all of the above. He continues on insulin drip. Serum sodium continues to slowly improve. The patient with significant proteinuria on urinalysis consistent with diabetic nephropathy. There is no acute need for any form of renal replacement therapy. He does remain on the antibiotics and we will continue to follow closely. Pending DRAKE Renal function remains elevated Electrolytes are stable. He was seen in the ICU, in no acute distress No family at the bedside Prognosis remains guarded REVIEW OF SYSTEMS: GENERAL: Negative for any nausea, vomiting, fevers, chills, or weight loss. NEUROLOGIC: Negative for any blurry vision, blind spots, double vision, facial asymmetry, dysphagia, dysarthria, hemiparesis, hemisensory deficits, vertigo, ataxia. HEENT: Negative for any head trauma, neck trauma, neck stiffness, photophobia, phonophobia, sinusitis, rhinitis. CARDIAC: Negative for any chest pain, dyspnea on exertion, paroxysmal nocturnal dyspnea, peripheral edema. PULMONARY: Negative for any shortness of breath, wheezing, COPD, or TB exposure. GASTROINTESTINAL: Negative for any abdominal pain, nausea, vomiting, bright red blood per rectum, melena. GENITOURINARY: Negative for any dysuria, hematuria, incontinence. INTEGUMENTARY: Negative for any rashes, cuts, insect bites. RHEUMATOLOGIC: Negative for any joint pains, photosensitive rashes, history of vasculitis or kidney problems. HEMATOLOGIC: Negative for any abnormal bruising, frequent infections or bleeding. Vital Signs (last 8hr) Date Time Temp Pulse Resp B/P (MAP) Pulse Ox O2 Delivery O2 Flow Rate FiO2 01/07/25 16:22 99 Nasal Cannula* 2 28 01/07/25 15:46 97.0 69 20 154/55 98 Nasal Cannula 2.0 01/07/25 14:46 71 20 144/93 97 Room Air 01/07/25 13:47 73 12 163/89 98 Room Air 01/07/25 12:46 57 18 167/90 99 Room Air 01/07/25 11:46 68 15 133/80 97 Room Air 01/07/25 11:32 98 Room Air* 0 21 01/07/25 10:46 73 15 141/96 97 Room Air 01/07/25 10:01 98.4 68 14 143/86 99 Room Air 01/07/25 09:16 69 17 156/102 98 Room Air 01/07/25 09:01 66 13 156/98 99 Room Air 01/07/25 08:47 75 15 165/112 99 Room Air PHYSICAL EXAM: GENERAL: Alert and oriented x 3. No acute distress. Well-nourished. EYES: EOMI. Anicteric. HENT: Moist mucous membranes. No scleral icterus. No cervical lymphadenopathy. LUNGS: Clear to auscultation bilaterally. No accessory muscle use. CARDIOVASCULAR: Regular rate and rhythm. No murmur. No JVD. ABDOMEN: Soft, non-tender and non-distended. No palpable masses. EXTREMITIES: No edema. Non-tender.?SKIN: No rashes or lesions. Warm. NEUROLOGIC: No focal neurological deficits. CN II-XII grossly intact, but not individually tested. PSYCHIATRIC: Cooperative. Appropriate mood and affect. Current Medications Medications (Trade) Dose Ordered Sig/Asya Route PRN Reason Start Time Stop Time Status Last Admin Dose Admin Acetaminophen (TYLenol 325MG TAB) 650 mg Q6H PRN PO TEMPERATURE GREATER THAN 101.5 01/05/25 02:30 02/04/25 02:29 Aspirin (Aspirin 81mg Chew Tab) 81 mg DAILY PO 01/05/25 09:00 01/05/25 09:53 DC Benzocaine (Cepacol Sore Throat Lozenge) 1 each Q4H PRN MM SORE THROAT 01/05/25 02:30 02/04/25 02:29 Cefazolin Sodium (Ancef) 2 gm Q12H IVPB 01/07/25 13:30 01/17/25 13:29 01/07/25 14:05 2 GM Chlordiazepoxide HCl (LIBrium 25 MG CAP) 25 mg Q8H PO 01/05/25 02:30 01/12/25 02:29 01/07/25 09:44 25 MG Dexamethasone Sodium Phosphate 40 mg/Sodium Chloride 50 ml @ 100 mls/hr DAILY IV 01/06/25 14:00 01/10/25 09:29 01/07/25 10:54 100 MLS/HR Dextrose (D50w) 50 ml AD PRN IV HYPOGLYCEMIA PROTOCOL 01/05/25 10:00 02/04/25 09:59 Doxycycline Hyclate 250 ml @ 125 mls/hr Q12H IV 01/05/25 10:00 01/06/25 21:05 DC 01/06/25 09:30 125 MLS/HR Doxycycline Hyclate 250 ml @ 125 mls/hr Q12H IV 01/06/25 21:30 01/16/25 21:29 01/07/25 09:07 125 MLS/HR Folic Acid (FOLic ACID 1 MG TABLET) 1 mg DAILY PO 01/07/25 10:30 02/06/25 10:29 01/07/25 12:57 1 MG Furosemide (LASix 20MG VIAL) 20 mg Q12H IV 01/07/25 16:00 01/20/25 16:00 01/07/25 15:56 20 MG Glucagon (Glucagon 1mg Kit) 1 mg AD PRN IM HYPOGLYCEMIA PROTOCOL 01/05/25 10:00 02/04/25 09:59 Hydralazine HCl (APRESOLine 20MG INJ) 5 mg Q6H PRN IV For:SBP above 160;DBP above 90 01/05/25 14:30 02/04/25 14:29 Hydralazine HCl (APRESOLine 20MG INJ) 10 mg Q6H PRN IV For:SBP above 160;DBP above 90 01/05/25 02:30 01/05/25 09:53 DC Insulin Glargine (LANtus 100 UNITS/ML 10 ML VIAL) 15 units Q12H SQ 01/07/25 21:30 02/05/25 21:29 Insulin Glargine (LANtus 100 UNITS/ML 10 ML VIAL) 20 units HS SQ 01/06/25 21:00 01/06/25 21:05 DC Insulin Glargine (LANtus 100 UNITS/ML 10 ML VIAL) 20 units HS SQ 01/06/25 21:30 01/07/25 10:24 DC 01/06/25 21:33 20 UNITS Insulin Human Regular (humuLIN R 100 UNIT/ML 3ML) INSULIN SLIDING SCAL... ACHS SQ 01/05/25 07:30 01/05/25 09:57 DC 01/05/25 07:59 16 UNIT Insulin Human Regular (humuLIN R 100 UNIT/ML 3ML) INSULIN SLIDING SCAL... ACHS SQ 01/05/25 11:30 01/06/25 16:43 DC 01/06/25 11:50 8 UNIT Insulin Human Regular (humuLIN R 100 UNIT/ML 3ML) INSULIN SLIDING SCAL... ACHS SQ 01/06/25 17:00 01/07/25 13:32 DC 01/06/25 17:17 16 UNIT Insulin Human Regular 100 unit/ Sodium Chloride 100 ml @ 0 mls/hr AD PRN IV HYPERGLYCEMIA PROTOCOL 01/06/25 19:30 02/05/25 19:29 01/06/25 20:48 6 MLS/HR Lactated Ringer's 1,000 ml @ 100 mls/hr Q10H IV 01/05/25 02:30 01/05/25 09:51 DC 01/05/25 02:30 100 MLS/HR Lorazepam (AtiVAN) 1 mg Q4H PRN IVP ALCOHOL WITHDRAWAL PROTOCOL 01/05/25 02:30 01/12/25 02:29 Magnesium Sulfate 50 ml @ 0 mls/hr PROTOCOL PRN IV h 01/05/25 02:30 02/04/25 02:29 01/05/25 03:24 25 MLS/HR Morphine Sulfate (morPHINE 2MG SYG) 2 mg Q4H PRN IVP SEVERE PAIN (7-10) 01/05/25 02:30 01/12/25 02:29 Multivitamins Therapeutic (Multivitamin Tablet) 1 tab DAILY PO 01/07/25 10:30 02/06/25 10:29 01/07/25 10:39 1 TAB Nicotine (Nicoderm) 21 mg DAILY TD 01/05/25 09:00 02/04/25 08:59 01/07/25 10:00 21 MG Nitroglycerin (Nitrostat) 0.4 mg AD PRN SL CHEST PAIN 01/05/25 02:30 02/04/25 02:29 Ondansetron HCl (zoFRAN 4MG INJ) 4 mg Q6H PRN IV NAUSEA/VOMITING 01/05/25 02:30 02/04/25 02:29 Pantoprazole Sodium (PROTonix 40MG TAB) 40 mg DAILY PO 01/05/25 09:00 02/04/25 08:59 01/07/25 09:44 40 MG Pharmacy Profile Note (Pharmacy Communication) 1 each PROTOCOL PRN MISC ETOH Withdrawal Score changes 01/05/25 02:30 01/12/25 02:29 Piperacillin Sod/ Tazobactam Sod (Zosyn 3.375gm+NS 50ml) 3.375 gm Q12H IV 01/05/25 02:30 01/07/25 13:24 DC 01/07/25 02:45 3.375 GM Potassium Phosphate 250 ml @ 42 mls/hr PROTOCOL PRN IV PROTOCOL 01/05/25 10:00 02/04/25 09:59 Potassium Chloride 100 ml @ 100 mls/hr AD PRN IV POTASSIUM PROTOCOL 01/05/25 02:30 01/07/25 10:12 DC Potassium Chloride 100 ml @ 100 mls/hr AD PRN IV POTASSIUM PROTOCOL 01/07/25 10:30 02/06/25 10:29 Potassium Chloride (K-Dur 10meq Sr Tab) 10 meq AD PRN PO POTASSIUM PROTOCOL 01/06/25 09:30 02/04/25 02:29 01/07/25 15:51 10 MEQ Potassium Chloride (K-Dur/Klor-Con 20meq) 10 meq AD PRN PO POTASSIUM PROTOCOL 01/05/25 02:30 01/06/25 09:12 DC 01/05/25 22:15 10 MEQ Potassium Chloride (K-Dur/Klor-Con 20meq) 10 meq AD PRN PO POTASSIUM PROTOCOL 01/07/25 10:30 01/07/25 10:12 DC Potassium Chloride (KCl 10% Elixir 20meq/15ml) 10 meq AD PRN PO POTASSIUM PROTOCOL 01/05/25 02:30 01/07/25 10:12 DC 01/06/25 17:16 10 MEQ Potassium Chloride (KCl 10% Elixir 20meq/15ml) 10 meq AD PRN PO POTASSIUM PROTOCOL 01/07/25 10:30 02/06/25 10:29 Sodium Chloride 1,000 ml @ 50 mls/hr Q20H IV 01/05/25 10:00 02/04/25 09:59 01/07/25 15:38 150 MLS/HR Triamcinolone Acetonide (Kenalog/ Aristocort) 1 APPLY TP BID BID TP 01/07/25 11:00 02/06/25 10:59 01/07/25 15:00 1 APPL Vancomycin HCl (Vancomycin Protocol) 1 each AD IV 01/07/25 12:30 01/07/25 12:40 DC LABORATORY: [ ] Hematology Labs: Test 01/08/25 07:38 Range/Units White Blood Count 12.8 H 4.8-10.8 K/uL Red Blood Count 4.83 4.50-6.20 MIL/uL Hemoglobin 15.4 14.0-18.0 g/dL Hematocrit 43.0 42-54 % Mean Corpuscular Volume 89.0 79-99 fL Mean Corpuscular Hemoglobin 31.9 27.0-33.0 pg Mean Corpuscular Hemoglobin Concent 35.8 32.0-36.0 g/dL Red Cell Distribution Width 13.3 11.0-15.5 % Platelet Count 57 L 130-400 K/uL Mean Platelet Volume 13.0 H 7.5-10.5 fL Immature Granulocyte % (Auto) 1.1 H 0-1 % Neutrophils (%) (Auto) 88.0 H 40.0-77.0 % Lymphocytes (%) (Auto) 4.8 L 21.0-51.0 % Monocytes (%) (Auto) 5.9 3.0-13.0 % Eosinophils (%) (Auto) 0.0 0.0-8.0 % Basophils (%) (Auto) 0.2 0.0-5.0 % Neutrophils # (Auto) 11.3 H 1.8-7.7 K/uL Lymphocytes # (Auto) 0.6 L 1.0-4.8 K/uL Monocytes # (Auto) 0.8 0.1-1.0 K/uL Eosinophils # (Auto) 0.00 0.00-0.70 K/uL Basophils # (Auto) 0.03 0.00-0.20 K/uL Absolute Immature Granulocyte (auto 0.14 0-1 K/uL Nucleated Red Blood Cells 0.0 0.0-0.19 % Chemistry Labs: Test 01/08/25 14:03 01/08/25 12:07 01/08/25 07:38 01/08/25 04:49 Range/Units Whole Blood Glucose 174 H 70-110 MG/DL Sodium Level 137 136-145 mmol/L Potassium Level 3.5 3.5-5.1 mmol/L Chloride Level 107 101-111 mmol/L Carbon Dioxide Level 16 L 21-32 mmol/L Blood Urea Nitrogen 95 *H 7-18 mg/dL Creatinine 2.5 H 0.5-1.3 mg/dL Glomerular Filtration Rate Calc 32 >90 mL/min Random Glucose 145 H 70-105 mg/dL Total Calcium 7.1 L 8.5-10.1 mg/dL Total Bilirubin 1.8 H 0.2-1.0 mg/dL Aspartate Amino Transf (AST/SGOT) 38 H 10-37 U/L Alanine Aminotransferase (ALT/SGPT) 34 12-78 U/L Alkaline Phosphatase 102 50-136 U/L Total Protein 6.6 6.0-8.3 g/dL Albumin 1.9 L 3.5-5.0 g/dL Phosphorus Level 3.9 2.5-4.9 mg/dL Magnesium Level 2.50 H 1.80-2.40 mg/dL Test 01/07/25 16:15 01/06/25 21:22 Range/Units B-Type Natriuretic Peptide 123 H 0-100 pg/mL Bedside Glucose Comment Protocol Initiated DIAGNOSTICS / RADIOLOGY: REASON: eval gallbladder, cholecystitis. ORDERING PHYSICIAN: HANNAH CARTER MD PROCEDURE: ABDOMEN - US ABDOMINAL COMPLETE ULTRASOUND ABDOMEN COMPLETE INDICATION: Abdominal Pain COMPARISON: 01/05/2025 CT abdomen and pelvis. FINDINGS: The liver is enlarged and increased in echogenicity; no focal lesion demonstrated. Length is measured at 21.6 cm Main portal vein is patent, and normal direction of vascular flow demonstrated. The common bile duct caliber measures 4.0 mm. Echogenic shadowing gallstones without associated pericholecystic fluid. No sonographic Dominguez's sign elicited by the ultrasound vacuum drier operator. Wall thickness measures 2.0 mm. The spleen is normal in size and echotexture. The spleen measures 9.8 cm. Visible portions of the pancreas appear unremarkable. The right kidney measures 12.6 x 6.3 x 6.6 cm,and is normal in echogenicity, without evidence for hydronephrosis or shadowing stones. The left kidney measures 12.8 x 8.1 x 6.0 cm,and is normal in echogenicity, without evidence for hydronephrosis or shadowing stones. Visible portions of the abdominal aorta are within normal limits. Visible portions of the inferior vena cava are within normal limits. No free fluid demonstrated. IMPRESSION: Cholelithiasis without sonographic evidence for cholecystitis. Findings suggesting hepatomegaly and hepatic steatosis or other underlying hepatocellular disease process. DICTATED BY: KIARA PETERSON MD DATE: 01/08/25 0955 REASON: sob ORDERING PHYSICIAN: KARMA LUNDBERG MD PROCEDURE: CXR1VW - CHEST 1VW PORTABLE CHEST RADIOGRAPH INDICATION: sob COMPARISON: 01/04/2025 FINDINGS: threat monitoring analyst leads overlie the field of view. Heart size is normal. The pulmonary vascularity and jimmie appear normal. No abnormal pulmonary parenchymal opacity or consolidation identified. No significant pleural effusion noted. No pneumothorax detected. IMPRESSION: No radiographic evidence for any acute cardiopulmonary process. DICTATED BY: KIARA PETERSON MD DATE: 01/08/25 1028 REASON: rule out acute cholecystitis ORDERING PHYSICIAN: MAHOGANY CARBAJAL MD PROCEDURE: HIDAWO - NM HIDA WO EF/CCK NM HIDA WO EF/CCK: 01/06/2025 12:07 PM DIRECTOR BANKING CLINICAL INDICATION: Right upper quadrant pain. COMPARISON: None. TECHNIQUE: Injected Dose: 7 mCi Tc-99m mebrofenin Initial dynamic images: 60 minutes Post-treatment: None. Additional images: 2 hour delay. FINDINGS: Normal hepatic transit time. Prompt excretion into the small bowel. There is no excretion into the gallbladder. . IMPRESSION: Acute cholecystitis. DICTATED BY: HANK AVILA DO DATE: 01/07/25 1402 REASON: positive troponin ORDERING PHYSICIAN: MAHOGANY CARBAJAL MD PROCEDURE: ECHO CMP - ECHO 2-D COMPLETE APPROVED REPORT EXAM: Two-dimensional and M-mode echocardiogram with Doppler and color Doppler. Study Details: Pt states fevers INDICATION ICD: Positive troponin 2D Dimensions RVDd 3.9 cm LVEF(%) 51.2 (>50%) LVED Vol(simp.) 87.0 mL IVSd 0.8 (0.7-1.1cm) FS(%) 26 % LVES Vol(simp.) 35.0 mL LVDd 5.3 (3.8-5.6cm) LA (2D) 4.2 (1.6-4.0cm) LVEF(%, simp.) 60 % PWd 1.3 (0.7-1.1cm) Ao Root(2D) 3.5 (2.0-3.7cm) LA ESV INDEX (4CH) 21.50 mL/m2 IVSs 1.0 cm LVOT diam 2.4 (1.8-2.4cm) LA ESV INDEX (2CH) 19.20 mL/m2 LVDs 3.9 (2.5-4.0cm) IVC diam 2.5 cm LA ESV INDEX (BP) 20.35 mL/m2 PWs 1.6 cm Deformation Strain Apical 4 -16.0 % Apical 2 -12.0 % Apical 3 -10.0 % Global Strain -13.0 % M-Mode Dimensions EPSS 0.6 cm LA (MM) 4.3 (1.6-4.0cm) Ao Root(MM) 3.8 (2.0-3.7cm) Aortic Valve AoV VTI 0.2 m Ao Mean GR 5.0 mmHg LVOT VTI 0.20 m JEANNE (VMAX) 3.9 cm2 JEANNE (VTI) 3.9 cm2 Mitral Valve MV E Vmax 117.5 cm/s DECEL Time 151 ms MV Mean GR 4 mmHg MV A Vmax 50.8 cm/s P 1/2 T 58 ms MVA (VTI) 2.7 cm2 E/A ratio 2.3 MVA (PHT) 3.8 cm2 TDI E/E' Medial 22.6 E/E' Lateral 19.6 Medial E' Peak V 5.20 cm/s Lateral E' Peak V 6.00 cm/s Pulmonary Valve PV VTI 0.15 m PV Mean GR 2 mmHg Tricuspid Valve RAP (EST) 8 mmHg RVSP 8.0 mmHg Left Ventricle The left ventricle is normal size. The There is normal left ventricular wall thickness. LVEF is 60-65%. Indeterminate diastolic dysfunction. Right Ventricle The right ventricle is normal size. The right ventricular systolic function is normal. Atria The left atrium size is normal. The right atrium size is normal. Aortic Valve The aortic valve is trileaflet and opens well. Right coronary cusp leaflet appears to have a vegeration. No aortic regurgitation is present. There is no aortic valvular stenosis. Mitral Valve The mitral valve is normal in structure. There is no mitral valve regurgitation noted. There is no mitral valve stenosis. Tricuspid Valve The tricuspid valve is normal in structure. There is no tricuspid valve regurgitation noted. Pulmonic Valve The pulmonary valve is normal in structure. There is no pulmonic valvular regurgitation. Great Vessels The aortic root is normal in size. IVC is dilated and collapses >50% with inspiration. Pericardium There is no pericardial effusion. Other Information Quality : Adequate Conclusion The left ventricle is normal size. LVEF is 60-65%. Indeterminate diastolic dysfunction. The right ventricle is normal size. The right ventricular systolic function is normal. The left atrium size is normal. The right atrium size is normal. The aortic valve is trileaflet and opens well. Right coronary cusp leaflet appears to have a vegeration. IVC is dilated and collapses >50% with inspiration. There is no pericardial effusion. DICTATED BY: EVANS FLORES MD DATE: 01/05/25 1234 REASON: renal failure ORDERING PHYSICIAN: MAHOGANY CARBAJAL MD PROCEDURE: RENAL - US RENAL SONOGRAM Exam Type: US RENAL SONOGRAM Clinical Information: renal failure Comparison: None Findings: Examination shows normal renal size and echogenicity bilaterally. Preserved cortical thickness and corticomedullary junction region is seen. No hydronephrosis or calculi are seen. No renal masses are seen. There is no evidence of perinephric fluid on either side. No evidence of significant ureteral dilatation is seen. The right kidney measures 12.8 x 5.5 cm. The left kidney measures 12.9 x 6 cm. The urinary bladder is normal. No bladder masses, stones, or wall thickening is seen. Incidentally there is evidence of cholelithiasis. IMPRESSION: Normal renal anatomy bilaterally. DICTATED BY: JANIE JOHNSON MD DATE: 01/05/25 1241 .REASON: severe sepsis uti- evaluate for hydronephrosis /pyelonephritis ORDERING PHYSICIAN: NEW REAVES MD PROCEDURE: ABD PEL WO - CT ABDOMEN/PELVIS W/O CONTRAST CT ABDOMEN/PELVIS W/O CONTRAST HISTORY: UTI COMPARISON: 12/14/2022 TECHNIQUE: Multiple sequential axial images of the abdomen and pelvis were obtained from the dome of the diaphragm through symphysis pubis. Patient was not given contrast through intravenous route. Oral contrast was not given. FINDINGS: No pleural effusion is seen bilaterally. There is no evidence of parenchymal disease or pulmonary nodule of the visualized lower lungs. Degenerative changes of the thoracolumbar spine are present. The heart is not enlarged. Liver is enlarged with fatty changes measuring 21 cm. A small hiatal hernia is seen. Gallstones are seen in the gallbladder. Nonspecific bilateral perinephric fat stranding is seen. If there is clinical suspicion for pyelonephritis, urinalysis correlation may be helpful. The liver, spleen, adrenal glands and pancreas are unremarkable. There is no evidence of hydronephrosis bilaterally. No evidence of renal stone is seen. Fecal material is seen in the colon. There are normal size retroperitoneal and mesenteric lymph nodes. No ascites is seen. No CT evidence of acute appendicitis is seen. Pelvic sidewalls are symmetric bilaterally. Bladder is moderately distended. IMPRESSION: 1. Gallstones in the gallbladder. If there is clinical suspicion for pyelonephritis, urinalysis correlation may be helpful. CT was performed with one or more following dose reduction techniques: automated exposure control, adjustment of the mA and kv according to patient's size, or use of a iterative reconstruction technique. DICTATED BY: CAROL HOWARD MD DATE: 01/05/25 0142 REASON: chest pain CAD ORDERING PHYSICIAN: NEW REAVES MD PROCEDURE: CXR1VW - CHEST 1VW Exam Type: CHEST 1VW Clinical Information: chest pain CAD Comparison: None Findings: The lungs are clear of infiltrates. The heart is normal in size. The bony and soft tissue structures of the chest are unremarkable. Impression: Clear lungs. DICTATED BY: JANIE JOHNSON MD DATE: 01/05/25 0800 ASSESSMENT: Acute on chronic renal failure. Gram-positive bacteremia. Diabetes mellitus. Electrolyte abnormalities. PLAN: Labs, diagnostic, radiologic exams reviewed and interpreted by myself and supervising physician. We have reviewed external records in detail Require close monitoring of renal function and electrolytes Order CBC, CMP and electrolytes in am Continue with antibiotics BiPAP as necessary, for respiratory distress IV pressors as needed Monitor blood pressure adjust medication doses as needed Avoid hypotensive episodes May use Dilaudid 0.5 mg IV every 6 hours as needed for severe pain Monitor blood sugars Strict intake, output, and daily weight should be monitored Please renally adjust medications Avoid nephrotoxic and nonsteroidal drugs Avoid contrast if possible Will continue to monitor renal function, anemia, electrolytes Treatment plan discussed with patient Questions were answered We have discussed with the other team physicians in detail about the care plan We will continue to monitor the patient closely Total critical care time spent with patient, nursing staff, critical care team over 35 minutes JULIETA GUPTA Jan 08, 2025 14:19
--- NOTE | 2025-01-08 14:37 | PN ---
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 The patient was found to have urinary tract infection, group A strep, acute renal failure, and sepsis. CT of the abdomen pelvis demonstrated cholelithiasis and pyelonephritis. He had elevated troponins of 185, 171, 143, 120 in the setting of sepsis. In addition, a 2D echocardiogram on 01/05/2025 demonstrated an aortic valve vegetation in the right coronary cusp. In addition he has had two of two sets of blood cultures positive staph aureus consistent with endocarditis. A DRAKE was planned but [place] [address] and plans for DRAKE have been deferred pending improvement to greater than [id number]. [place] [address] and we will consider tentative transesophageal echo tomorrow. Maintain NPO after midnight and reassess platelet count in a.m. He has had no recurrent fevers and we elected to obtain a 2nd set of blood cultures 01/07/2025 and there is no growth in these so far. The patient had been receiving aggressive fluid resuscitation with normal saline at 1:50 a.m. per hour, developed dyspnea with chest x-ray findings of CHF 2024 and his IV fluids have been reduced and he is now receiving furosemide 20 IV q.12 hours. With respect to his acute renal failure admission BUN and creatinine were 57 and 2.8, peaking at 105 a.m. and 4.0, and now improving to 95 and 2.5 respectively. Physical Examination: GENERAL: No acute distress. HEAD: Normal with no signs of head trauma. EYES: PERRLA, EOMI, conjunctiva and sclera normal. NECK: Supple without JVD. There is no tenderness, lymphadenopathy, or masses. No thyromegaly. Normal carotid upstrokes without bruits. LUNGS: Clear breath sounds bilaterally. No wheezes, or rhonchi. HEART: Normal rate and rhythm. Normal S1 and S2 without murmurs, gallop or rub. VASC: Peripheral pulses +2 bilaterally. EXT: No clubbing, cyanosis or edema. Petechial hemorrhages noted to lower extremities, right foot with bruising noted at the base of the 1st and 2nd toes. NEURO: Awake, alert, and oriented x3. No focal neurological deficits noted. Laboratory: Hematology Labs: Test 01/08/25 07:38 Range/Units White Blood Count 12.8 H 4.8-10.8 K/uL Red Blood Count 4.83 4.50-6.20 MIL/uL Hemoglobin 15.4 14.0-18.0 g/dL Hematocrit 43.0 42-54 % Mean Corpuscular Volume 89.0 79-99 fL Mean Corpuscular Hemoglobin 31.9 27.0-33.0 pg Mean Corpuscular Hemoglobin Concent 35.8 32.0-36.0 g/dL Red Cell Distribution Width 13.3 11.0-15.5 % Platelet Count 57 L 130-400 K/uL Mean Platelet Volume 13.0 H 7.5-10.5 fL Immature Granulocyte % (Auto) 1.1 H 0-1 % Neutrophils (%) (Auto) 88.0 H 40.0-77.0 % Lymphocytes (%) (Auto) 4.8 L 21.0-51.0 % Monocytes (%) (Auto) 5.9 3.0-13.0 % Eosinophils (%) (Auto) 0.0 0.0-8.0 % Basophils (%) (Auto) 0.2 0.0-5.0 % Neutrophils # (Auto) 11.3 H 1.8-7.7 K/uL Lymphocytes # (Auto) 0.6 L 1.0-4.8 K/uL Monocytes # (Auto) 0.8 0.1-1.0 K/uL Eosinophils # (Auto) 0.00 0.00-0.70 K/uL Basophils # (Auto) 0.03 0.00-0.20 K/uL Absolute Immature Granulocyte (auto 0.14 0-1 K/uL Nucleated Red Blood Cells 0.0 0.0-0.19 % Chemistry Labs: Test 01/08/25 14:03 01/08/25 12:07 01/08/25 07:38 01/08/25 04:49 Range/Units Whole Blood Glucose 174 H 70-110 MG/DL Sodium Level 137 136-145 mmol/L Potassium Level 3.5 3.5-5.1 mmol/L Chloride Level 107 101-111 mmol/L Carbon Dioxide Level 16 L 21-32 mmol/L Blood Urea Nitrogen 95 *H 7-18 mg/dL Creatinine 2.5 H 0.5-1.3 mg/dL Glomerular Filtration Rate Calc 32 >90 mL/min Random Glucose 145 H 70-105 mg/dL Total Calcium 7.1 L 8.5-10.1 mg/dL Total Bilirubin 1.8 H 0.2-1.0 mg/dL Aspartate Amino Transf (AST/SGOT) 38 H 10-37 U/L Alanine Aminotransferase (ALT/SGPT) 34 12-78 U/L Alkaline Phosphatase 102 50-136 U/L Total Protein 6.6 6.0-8.3 g/dL Albumin 1.9 L 3.5-5.0 g/dL Phosphorus Level 3.9 2.5-4.9 mg/dL Magnesium Level 2.50 H 1.80-2.40 mg/dL Test 01/07/25 16:15 01/06/25 21:22 Range/Units B-Type Natriuretic Peptide 123 H 0-100 pg/mL Bedside Glucose Comment Protocol Initiated Diagnostics / Radiology: 2D echocardiogram 01/05/2025: Conclusion The left ventricle is normal size. LVEF is 60-65%. Indeterminate diastolic dysfunction. The right ventricle is normal size. The right ventricular systolic function is normal. The left atrium size is normal. The right atrium size is normal. The aortic valve is trileaflet and opens well. Right coronary cusp leaflet appears to have a vegeration. IVC is dilated and collapses >50% with inspiration. There is no pericardial effusion. Impression and Plan: Aortic valve endocarditis with mobile vegetation in the right coronary cusp of the aortic valve by 2D echocardiogram 01/05/2025: Staph aureus in 2/2 sets of blood cultures 01/05/2025: -Infectious Disease has adjusted antibiotic therapy -plans for DRAKE have been deferred due to thrombocytopenia, with plans to proceed when platelet count greater than 50,000. [place] [address] and we will consider tentative transesophageal echo tomorrow. Maintain NPO after midnight and reassess platelet count in a.m. -a 2nd set of blood cultures were repeated 01/07/2025 Thrombocytopenia with platelet count falling to 21,000 on 01/05/2025, now improving to 57,000: -Dr. 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 per hour and this has been reduced - continue present furosemide 20 IV q.12 hours Comorbidities: Hypertension Hyperlipidemia Coronary artery disease status post prior PTCA and stent procedure to the LAD 12/19/2015 , presenting as a non ST segment elevation RI in the setting of hypertensive emergency Probable sleep apnea Alcohol and cocaine abuse KARMA LUNDBERG MD Jan 08, 2025 14:37
--- NOTE | 2025-01-08 16:04 | PN ---
The patient is being followed for possible cholecystitis. HIDA scan shows a positive test for cholecystitis. Ultrasound only showed cholelithiasis but no evidence of cholecystitis. We have recommended in the past to do a percutaneous cholecystostomy but patient has no pain and he has been having severe thrombocytopenia. I do not think that the gallbladder is a source of any of sepsis of the patient at this moment. I will not recommend any interventional procedure at this time. Thank you for consultation we will sign off this case for now Vitals/Labs Vital Signs Date Time Temp Pulse Resp B/P (MAP) Pulse Ox O2 Delivery O2 Flow Rate FiO2 01/08/25 15:42 97.5 78 18 128/82 98 Room Air 01/08/25 11:54 0 21 Laboratory Tests 01/07/25 16:15 01/07/25 20:00 01/08/25 00:23 01/08/25 04:49 01/08/25 07:38 01/08/25 12:07 SANDRA MCDERMOTT MD Jan 08, 2025 16:04
[2025-01-08 16:33] LABS: CREATININE 2.6 mg/dL (0.5-1.3); POTASSIUM 4.2 mmol/L (3.5-5.1)
--- NOTE | 2025-01-08 17:22 | PN ---
Mr. Jin is a 44-year-old male that was seen and examined today on 01/05/2025. Patient is a good historian and personal health. Patient is a good historian and personal health. Patient states that he came to the emergency department at the behest of his daughter. Patient's chief complaint is weakness. Onset was Thursday12/30/2024. Location is to entire body. Duration is constant. Character is described as, " today Orion needed help to get out of the sofa and out of the shower. I also fell down once. "There was no alleviating factors. Symptoms are aggravated with physical activity. Patient denies any associated chest pain or shortness and breath. I was consulted because of leukocytosis and severe thrombocytopenia. This patient have have any alcoholism. Patient also on cocaine. It seems the patient may be have pyelonephritis by CT scan with the patient was started on antibiotic treatment. This patient was found to have thrombocytopenia. Which was multifactorial including cirrhosis of the liver and possible ITP. Patient was given 1 unit of single donor platelet with the platelet count actually went down consistent with ITP. With patient was started on dexamethasone 40 mg. Platelet count improved to 57K. PE General Appearance: Alert, Oriented X3, Cooperative, moderate distress HEENT: Atraumatic, PERRLA, EOMI, Other (Mucous membranes dry and cracked) Respiratory: Clear to auscultation, Normal air movement, NL respiratory effort Cardiovascular: Normal S1, Normal S2, Other (Tachycardia) Abdominal: Normal bowel sounds, Soft, No tenderness Extremities: No edema Skin: No significant lesion Neuro: Normal gait, Normal speech, Strength at 5/5 X4 ext, Sensation intact, Cranial nerves 3-12 NL Psych/Mental Status: Mental status NL, Mood NL, Thoughts/Content NL Assessment 1. Thrombocytopenia. 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 2. Acute on chronic renal failure 4. Severe sepsis. Possible bacteremia and possible endocarditis 5. Leukocytosis 6. Cocaine abuse 7. Alcohol abuse 8. Hepatomegaly 9. Splenomegaly 10. Morbid obesity Plan 1. This patient was started on dexamethasone with the platelet improved significantly. With the patient suspected of having ITP. But this patient have difficulty to control his sugar. With the plan actually to decrease the dose of dexamethasone to 20 mg IV. 2. There was hypersegmented neutrophils. This patient to Continue on folic acid 1 mg p.o. daily and vitamin B12 1000 mcg p.o. daily. 3. There is difficulty controlling his sugar. So this patient could benefit from IVIG. The IVIG could also could help this patient sepsis with the patient could improve significantly especially if he is immunodeficient. So we will follow-up with CBC tomorrow and may be plan our care accordingly. This patient may be will start on IVIG. I discussed the case with Dr. Navarro 4. Please do not transfuse any platelet anymore 5. Patient to have CBC tomorrow. Vitals/Labs Vital Signs Date Time Temp Pulse Resp B/P (MAP) Pulse Ox O2 Delivery O2 Flow Rate FiO2 01/08/25 16:45 77 26 147/87 97 Room Air 01/08/25 16:10 0 21 01/08/25 15:42 97.5 Laboratory Tests 01/07/25 20:00 01/08/25 00:23 01/08/25 04:49 01/08/25 07:38 01/08/25 12:07 01/08/25 16:10 Medications Current Medications Sodium Chloride 1,000 ml @ 125 mls/hr ONCE ONCE IV Last administered on 01/05/25at 00:13; Start 01/04/25 at 23:00; Stop 01/05/25 at 06:59; Status DC Aspirin 81 mg ONCE ONCE PO Last administered on 01/05/25at 00:14; Start 01/04/25 at 23:00; Stop 01/04/25 at 23:01; Status DC Ondansetron HCl 4 mg ONCE ONCE IVP Last administered on 01/05/25at 00:13; Start 01/04/25 at 23:00; Stop 01/04/25 at 23:01; Status DC Potassium Chloride 100 ml @ 50 mls/hr ONCE ONCE IV Last administered on 01/05/25at 00:13; Start 01/05/25 at 00:00; Stop 01/05/25 at 01:59; Status DC Potassium Chloride 100 ml @ 50 mls/hr ONCE ONCE IV Last administered on 01/05/25at 03:12; Start 01/05/25 at 00:00; Stop 01/05/25 at 01:59; Status DC Thiamine HCl 100 mg ONCE ONCE IVP Last administered on 01/05/25at 01:01; Start 01/05/25 at 00:00; Stop 01/05/25 at 00:01; Status DC Acetaminophen 500 mg STK-MED ONCE .ROUTE; Start 01/05/25 at 00:28; Stop 01/05/25 at 00:28; Status DC Cefepime HCl 1 gm ONCE ONCE IVPB Last administered on 01/05/25at 01:01; Start 01/05/25 at 01:00; Stop 01/05/25 at 01:02; Status DC Vancomycin HCl 750 mg ONCE ONCE IVPB Last administered on 01/05/25at 02:12; Start 01/05/25 at 01:00; Stop 01/05/25 at 01:02; Status DC Sodium Chloride 250 ml ONCE ONCE IVPB Last administered on 01/05/25at 02:12; Start 01/05/25 at 01:00; Stop 01/05/25 at 01:02; Status DC Acetaminophen 1,000 mg ONCE ONCE PO Last administered on 01/05/25at 00:30; Start 01/05/25 at 01:00; Stop 01/05/25 at 01:02; Status DC Aspirin 81 mg DAILY PO; Start 01/05/25 at 09:00; Stop 01/05/25 at 09:53; Status DC Nitroglycerin 0.4 mg AD PRN SL; Start 01/05/25 at 02:30; Stop 02/04/25 at 02:29 Aspirin 162 mg ONCE ONCE PO Last administered on 01/05/25at 03:06; Start 01/05/25 at 02:30; Stop 01/05/25 at 02:31; Status DC Insulin Human Regular INSULIN SLIDING SCAL... ACHS SQ Last administered on 01/05/25at 07:59; Start 01/05/25 at 07:30; Stop 01/05/25 at 09:57; Status DC Lactated Ringer's 3,429 ml @ 1,143 mls/hr ONCE ONCE IV Last administered on 01/05/25at 03:12; Start 01/05/25 at 02:30; Stop 01/05/25 at 05:29; Status DC Piperacillin Sod/ Tazobactam Sod 3.375 gm Q12H IV Last administered on 01/07/25at 02:45; Start 01/05/25 at 02:30; Stop 01/07/25 at 13:24; Status DC Potassium Chloride 100 ml @ 100 mls/hr AD PRN IV; Start 01/05/25 at 02:30; Stop 01/07/25 at 10:12; Status DC Potassium Chloride 10 meq AD PRN PO Last administered on 01/06/25at 17:16; Start 01/05/25 at 02:30; Stop 01/07/25 at 10:12; Status DC Potassium Chloride 10 meq AD PRN PO Last administered on 01/05/25at 22:15; Start 01/05/25 at 02:30; Stop 01/06/25 at 09:12; Status DC Acetaminophen 650 mg Q6H PRN PO Last administered on 01/08/25at 04:21; Start 01/05/25 at 02:30; Stop 02/04/25 at 02:29 Pantoprazole Sodium 40 mg DAILY PO Last administered on 01/08/25at 08:00; Start 01/05/25 at 09:00; Stop 02/04/25 at 08:59 Ondansetron HCl 4 mg Q6H PRN IV; Start 01/05/25 at 02:30; Stop 02/04/25 at 02:29 Morphine Sulfate 2 mg Q4H PRN IVP; Start 01/05/25 at 02:30; Stop 01/12/25 at 02:29 Hydralazine HCl 10 mg Q6H PRN IV; Start 01/05/25 at 02:30; Stop 01/05/25 at 09:53; Status DC Benzocaine 1 each Q4H PRN MM; Start 01/05/25 at 02:30; Stop 02/04/25 at 02:29 Magnesium Sulfate 50 ml @ 0 mls/hr PROTOCOL PRN IV Last administered on 01/05/25at 03:24; Start 01/05/25 at 02:30; Stop 02/04/25 at 02:29 Lactated Ringer's 1,000 ml @ 100 mls/hr Q10H IV Last administered on 01/05/25at 02:30; Start 01/05/25 at 02:30; Stop 01/05/25 at 09:51; Status DC Chlordiazepoxide HCl 25 mg Q8H PO Last administered on 01/08/25at 01:29; Start 01/05/25 at 02:30; Stop 01/12/25 at 02:29 Lorazepam 1 mg Q4H PRN IVP; Start 01/05/25 at 02:30; Stop 01/12/25 at 02:29 Pharmacy Profile Note 1 each PROTOCOL PRN MISC; Start 01/05/25 at 02:30; Stop 01/12/25 at 02:29 Nicotine 21 mg DAILY TD Last administered on 01/08/25at 08:01; Start 01/05/25 at 09:00; Stop 02/04/25 at 08:59 Sodium Chloride 1,000 ml @ 50 mls/hr Q20H IV Last administered on 01/08/25at 09:34; Start 01/05/25 at 10:00; Stop 02/04/25 at 09:59 Potassium Phosphate 250 ml @ 42 mls/hr PROTOCOL PRN IV; Start 01/05/25 at 10:00; Stop 02/04/25 at 09:59 Hydralazine HCl 5 mg Q6H PRN IV Last administered on 01/08/25at 06:31; Start 01/05/25 at 14:30; Stop 02/04/25 at 14:29 Doxycycline Hyclate 250 ml @ 125 mls/hr Q12H IV Last administered on 01/06/25at 09:30; Start 01/05/25 at 10:00; Stop 01/06/25 at 21:05; Status DC Potassium Chloride 40 meq ONCE ONCE PO Last administered on 01/05/25at 10:25; Start 01/05/25 at 10:00; Stop 01/05/25 at 10:01; Status DC Potassium Chloride 100 ml @ 50 mls/hr ONCE ONCE IV Last administered on 01/05/25at 10:25; Start 01/05/25 at 10:00; Stop 01/05/25 at 11:59; Status DC Dextrose 50 ml AD PRN IV; Start 01/05/25 at 10:00; Stop 02/04/25 at 09:59 Glucagon 1 mg AD PRN IM; Start 01/05/25 at 10:00; Stop 02/04/25 at 09:59 Insulin Human Regular INSULIN SLIDING SCAL... ACHS SQ Last administered on 01/06/25at 11:50; Start 01/05/25 at 11:30; Stop 01/06/25 at 16:43; Status DC Dexamethasone Sodium Phosphate 10 mg ONCE ONCE IVP Last administered on 01/05/25at 17:27; Start 01/05/25 at 13:30; Stop 01/05/25 at 14:03; Status DC Insulin Glargine 20 units HS SQ; Start 01/06/25 at 21:00; Stop 01/06/25 at 21:05; Status DC Potassium Chloride 10 meq AD PRN PO Last administered on 01/07/25at 15:51; Start 01/06/25 at 09:30; Stop 02/04/25 at 02:29 Dexamethasone Sodium Phosphate 40 mg DAILY ONCE IV; Start 01/07/25 at 09:00; Stop 01/06/25 at 13:27; Status DC Dexamethasone Sodium Phosphate 40 mg/Sodium Chloride 50 ml @ 100 mls/hr DAILY IV Last administered on 01/08/25at 09:34; Start 01/06/25 at 14:00; Stop 01/08/25 at 12:16; Status DC Insulin Human Regular INSULIN SLIDING SCAL... ACHS SQ Last administered on 01/06/25at 17:17; Start 01/06/25 at 17:00; Stop 01/07/25 at 13:32; Status DC Insulin Human Regular 100 unit/ Sodium Chloride 100 ml @ 0 mls/hr AD PRN IV Last administered on 01/08/25at 01:18; Start 01/06/25 at 19:30; Stop 02/05/25 at 19:29 Insulin Glargine 20 units HS SQ Last administered on 01/06/25at 21:33; Start 01/06/25 at 21:30; Stop 01/07/25 at 10:24; Status DC Doxycycline Hyclate 250 ml @ 125 mls/hr Q12H IV Last administered on 01/08/25at 09:34; Start 01/06/25 at 21:30; Stop 01/16/25 at 21:29 Chlordiazepoxide HCl 25 mg STK-MED ONCE .ROUTE; Start 01/07/25 at 02:35; Stop 01/07/25 at 02:41; Status DC Piperacillin Sod/ Tazobactam Sod 50 ml @ As Directed STK-MED ONCE .ROUTE; Start 01/07/25 at 02:39; Stop 01/07/25 at 02:41; Status DC Potassium Chloride 0 ml @ As Directed STK-MED ONCE IV; Start 01/07/25 at 07:28; Stop 01/07/25 at 07:31; Status DC Potassium Chloride 40 meq ONCE ONCE PO Last administered on 01/07/25at 09:44; Start 01/07/25 at 10:00; Stop 01/07/25 at 10:01; Status DC Potassium Chloride 100 ml @ 100 mls/hr AD PRN IV; Start 01/07/25 at 10:30; Stop 02/06/25 at 10:29 Potassium Chloride 10 meq AD PRN PO Last administered on 01/08/25at 15:28; Start 01/07/25 at 10:30; Stop 02/06/25 at 10:29 Potassium Chloride 10 meq AD PRN PO; Start 01/07/25 at 10:30; Stop 01/07/25 at 10:12; Status DC Insulin Glargine 15 units Q12H SQ Last administered on 01/08/25at 09:16; Start 01/07/25 at 21:30; Stop 02/05/25 at 21:29 Insulin Glargine 10 units ONCE ONCE SQ Last administered on 01/07/25at 10:40; Start 01/07/25 at 10:30; Stop 01/07/25 at 10:31; Status DC Thiamine HCl 300 mg DAILY ONCE IVP Last administered on 01/07/25at 10:39; Start 01/07/25 at 10:30; Stop 01/07/25 at 10:31; Status DC Multivitamins Therapeutic 1 tab DAILY PO Last administered on 01/08/25at 08:00; Start 01/07/25 at 10:30; Stop 02/06/25 at 10:29 Folic Acid 1 mg DAILY PO Last administered on 01/08/25at 08:00; Start 01/07/25 at 10:30; Stop 02/06/25 at 10:29 Triamcinolone Acetonide 1 APPLY TP BID BID TP Last administered on 01/08/25at 08:01; Start 01/07/25 at 11:00; Stop 02/06/25 at 10:59 Vancomycin HCl 1 each AD IV; Start 01/07/25 at 12:30; Stop 01/07/25 at 12:40; Status DC Cefazolin Sodium 2 gm Q12H IVPB Last administered on 01/08/25at 13:39; Start 01/07/25 at 13:30; Stop 01/17/25 at 13:29 Furosemide 20 mg Q12H IV Last administered on 01/08/25at 15:42; Start 01/07/25 at 16:00; Stop 01/20/25 at 16:00 Calcium Gluconate 1 gm/Sodium Chloride 100 ml @ 0 mls/hr AD PRN IV Last administered on 01/08/25at 03:49; Start 01/08/25 at 02:30; Stop 02/07/25 at 02:29 Dexamethasone Sodium Phosphate 20 mg/Sodium Chloride 52 ml @ 100 mls/hr DAILY IV; Start 01/09/25 at 09:00; Stop 02/08/25 at 08:59 LEOPOLDO AGUILAR MD Jan 08, 2025 17:22
[2025-01-08 20:24] LABS: CREATININE 2.5 mg/dL (0.5-1.3); POTASSIUM 3.6 mmol/L (3.5-5.1)
[2025-01-09] VITALS (24 sets, daily range): BP systolic 123–164; BP diastolic 75–104; PULSE 67–92; RESP 12–29; TEMP 97.4–98.7; O2SAT 100
[2025-01-09 04:48] LABS: BASOPHILS # (AUTO) 0.02 K/uL (0.00-0.20); BASOPHILS % (AUTO) 0.1 % (0.0-5.0); EOSINOPHILS # (AUTO) 0.01 K/uL (0.00-0.70); EOSINOPHILS % (AUTO) 0.1 % (0.0-8.0); HEMATOCRIT 42.3 % (42-54); IMMATURE GRANULOCYTE ABSOLUTE 0.22 K/uL (0-1); LYMPHOCYTES # (AUTO) 0.8 K/uL (1.0-4.8); LYMPHOCYTES % (AUTO) 5.5 % (21.0-51.0); MEAN CORPUSCULAR HGB CONC 35.7 g/dL (32.0-36.0); MEAN CORPUSCULAR VOLUME 89.6 fL (79-99); MONOCYTES # (AUTO) 1.1 K/uL (0.1-1.0); MONOCYTES % (AUTO) 7.9 % (3.0-13.0); NEUTROPHILS # (AUTO) 11.5 K/uL (1.8-7.7); NEUTROPHILS % (AUTO) 84.8 % (40.0-77.0); PLATELET COUNT (AUTO) 71 K/uL (130-400); RED BLOOD CELL COUNT(AUTO) 4.72 MIL/uL (4.50-6.20); RED CELL DISTRIBUTION WIDTH 13.7 % (11.0-15.5); WHITE BLOOD COUNT (AUTO) 13.6 K/uL (4.8-10.8)
[2025-01-09 04:52] LABS: ALBUMIN 1.9 g/dL (3.5-5.0); BILIRUBIN,TOTAL 1.6 mg/dL (0.2-1.0); CREATININE 2.3 mg/dL (0.5-1.3); POTASSIUM 3.8 mmol/L (3.5-5.1); TOTAL PROTEIN, SERUM 6.2 g/dL (6.0-8.3)
--- NOTE | 2025-01-09 06:16 | CONS ---
CONSULT NOTE: endocrinology consult chief complaint: weakness reason for consult: newly diagnosed uncontrolled dm-2 dos: 01/09/25 HPI: 44-year-old male presented to ER for weakness and found with staph bacteremia and klabsiella pneumonia. labs in emergency department WBCs 16.4, left shift neutrophils 86 0.8 %, platelets 30, sodium 117, corrected sodium 123, potassium 2.6, BUN 57, creatinine 2.8, glucose 361, lactic acid 3.9, troponin 195, magnesium 1.7, urinalysis positive for leukocyte esterase and WBCs too many to count per high-powered microscopy field. Urine toxicology positive for cocaine. Rapid strep antigen test positive for strep a. Additionally patient patient had a temperature of 102.0 in the emergency department, heart rate 118, respirations 26 and identified source of infection being both urine and throat met clinical sepsis criteria. CT of abdomen and pelvis showed fatty liver, suspected pyelonephritis. he is started on insulin drip for low bicarb and anion gap metabolic acidosis. bicarb is low. glucose was greater than 400 mg/dl and improving now. he is started on iv steroids now. hba1c 8.5% Past Medical History Patient History: Patient reports no known family medical history. ADDITIONAL PAST MEDICAL HISTORY: [Denies any past medical history, fatty liver by CT on 01/05/2025] SOCIAL HISTORY: [Patient smokes one pack of cigarettes daily but only5 times a week. Patient otlhea06 beers daily but also only5 times a week. Patient reports occasional use of both marijuana and cocaine. Patient denies any other illegal drug use. 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 Patient has poor access to health care due to lack of health insurance. Patient is typically independent of all his ADLs. Patient denies difficulty pain is bills. Patient lives with his daughter Hannah Jin] SURGICAL HISTORY: [Heart stent] Review of Systems General: No Fever, No Chills, No Night Sweats, No Fatigue, No Malaise, No Appetite, No Other HEENT: No Head Aches, No Visual Changes, No Eye Pain, No Ear Pain, No Dysphasia, No Sinus Congestion, No Post Nasal Drip, No Sore Throat, No Other Pulmonary: No Dyspnea, No Cough, No Pleuritic Chest Pain, No Other Cardiovascular: No: Chest Pain, Palpitations, Orthopnea, Paroxysmal Noc. Dyspnea, Edema, Lt Headedness, Other Gastrointestinal: No: Nausea, Vomiting, Abdominal Pain, Diarrhea, Constipation, Melena, Hematochezia, Other Genitourinary: No Dysuria, No Frequency, No Incontinence, No Hematuria, No Retention, No Other Musculoskeletal: No: other, neck pain, shoulder pain, arm pain, back pain, hand pain, leg pain, foot pain Skin: No Urticaria, No Rash, No Other Neurological: Weakness; No: Numbness, Incoordination, Change in speech, Confusion, Seizures, Other Allergies: Coded Allergies: No Known Drug Allergies (Unverified Allergy, Unknown, 12/18/15) Scheduled Amlodipine Besylate (Amlodipine Besylate), 5 MG PO DAILY Atorvastatin Calcium (Lipitor), 40 MG PO HS Hydrochlorothiazide (Hydrochlorothiazide), 25 MG PO DAILY Lisinopril (Lisinopril), 20 MG PO DAILY Losartan Potassium (Losartan Potassium), 50 MG PO DAILY Methylprednisolone (Medrol), 4 MG PO AD Tamsulosin HCl (Flomax), 0.4 MG PO DAILY [Aspirin], 325 MG PO DAILY [Prasugrel Hcl], 10 MG PO DAILY Scheduled PRN Ketorolac Tromethamine (Ketorolac Tromethamine), 10 MG PO TID PRN for PAIN Exam General Appearance: Alert, Oriented X3, Cooperative, moderate distress HEENT: Atraumatic, PERRLA, EOMI, Other (Mucous membranes dry and cracked) Respiratory: Clear to auscultation, Normal air movement, NL respiratory effort Cardiovascular: Normal S1, Normal S2, Other (Tachycardia) Abdominal: Normal bowel sounds, Soft, No tenderness Extremities: No edema Skin: No significant lesion Neuro: Normal gait, Normal speech, Strength at 5/5 X4 ext, Sensation intact, Cranial nerves 3-12 NL Psych/Mental Status: Mental status NL, Mood NL, Thoughts/Content NL ASSESSMENT: New onset Uncontrolled Diabetes mellitius type2, POA he is started on insulin drip for low bicarb and anion gap metabolic acidosis. bicarb is low. glucose was greater than 400 mg/dl and improving now. he is started on iv steroids now. hba1c 8.5% bicarb is low. Severe sepsis, POA Urinary tract infection, POA Strep pharyngitis, POA Leukocytosis, POA Hyperlactatemia, POA Acute kidney injury, POA Thrombocytopenia, POA Elevated troponin, POA Substance abuse, POA, cocaine Alcohol dependence, POA Tobacco dependence, POA PLAN: continue insulin drip per dka protocol keep glucose less than 180 mg/dl monitor glucose qx1 hourly. patient will need insulin at discharge. thanks for allowing me to particpate in patient care and will continue to follow up. Vital Signs 01/09/25 01/09/25 01/09/25 00:00 03:00 04:00 Temp 97.3 Pulse 81 Resp 22 B/P (MAP) 123/90 Pulse Ox 100 O2 Delivery Room Air* O2 Flow Rate 0 FiO2 21 Hematology Labs: Test 01/09/25 04:08 Range/Units White Blood Count 13.6 H 4.8-10.8 K/uL Red Blood Count 4.72 4.50-6.20 MIL/uL Hemoglobin 15.1 14.0-18.0 g/dL Hematocrit 42.3 42-54 % Mean Corpuscular Volume 89.6 79-99 fL Mean Corpuscular Hemoglobin 32.0 27.0-33.0 pg Mean Corpuscular Hemoglobin Concent 35.7 32.0-36.0 g/dL Red Cell Distribution Width 13.7 11.0-15.5 % Platelet Count 71 L 130-400 K/uL Mean Platelet Volume 12.6 H 7.5-10.5 fL Immature Granulocyte % (Auto) 1.6 H 0-1 % Neutrophils (%) (Auto) 84.8 H 40.0-77.0 % Lymphocytes (%) (Auto) 5.5 L 21.0-51.0 % Monocytes (%) (Auto) 7.9 3.0-13.0 % Eosinophils (%) (Auto) 0.1 0.0-8.0 % Basophils (%) (Auto) 0.1 0.0-5.0 % Neutrophils # (Auto) 11.5 H 1.8-7.7 K/uL Lymphocytes # (Auto) 0.8 L 1.0-4.8 K/uL Monocytes # (Auto) 1.1 H 0.1-1.0 K/uL Eosinophils # (Auto) 0.01 0.00-0.70 K/uL Basophils # (Auto) 0.02 0.00-0.20 K/uL Absolute Immature Granulocyte (auto 0.22 0-1 K/uL Nucleated Red Blood Cells 0.0 0.0-0.19 % Chemistry Labs: Test 01/09/25 04:08 01/09/25 04:07 01/08/25 04:49 01/07/25 16:15 Range/Units Sodium Level 140 136-145 mmol/L Potassium Level 3.8 3.5-5.1 mmol/L Chloride Level 111 101-111 mmol/L Carbon Dioxide Level 15 L 21-32 mmol/L Blood Urea Nitrogen 90 *H 7-18 mg/dL Creatinine 2.3 H 0.5-1.3 mg/dL Glomerular Filtration Rate Calc 35 >90 mL/min Random Glucose 112 H 70-105 mg/dL Total Calcium 7.4 L 8.5-10.1 mg/dL Total Bilirubin 1.6 H 0.2-1.0 mg/dL Aspartate Amino Transf (AST/SGOT) 36 10-37 U/L Alanine Aminotransferase (ALT/SGPT) 29 12-78 U/L Alkaline Phosphatase 97 50-136 U/L Total Protein 6.2 6.0-8.3 g/dL Albumin 1.9 L 3.5-5.0 g/dL Whole Blood Glucose 121 H 70-110 MG/DL Phosphorus Level 3.9 2.5-4.9 mg/dL Magnesium Level 2.50 H 1.80-2.40 mg/dL B-Type Natriuretic Peptide 123 H 0-100 pg/mL Current Medications Medications (Trade) Dose Ordered Sig/Asya Route Start Time Stop Time Status Last Admin Dose Admin Aspirin (Aspirin 81mg Chew Tab) 81 mg DAILY PO 01/05/25 09:00 01/05/25 09:53 DC Cefazolin Sodium (Ancef) 2 gm Q12H IVPB 01/07/25 13:30 01/17/25 13:29 01/09/25 01:24 2 GM Chlordiazepoxide HCl (LIBrium 25 MG CAP) 25 mg Q8H PO 01/05/25 02:30 01/12/25 02:29 01/09/25 03:33 25 MG Dexamethasone Sodium Phosphate 20 mg/Sodium Chloride 52 ml @ 100 mls/hr DAILY IV 01/09/25 09:00 02/08/25 08:59 Dexamethasone Sodium Phosphate 40 mg/Sodium Chloride 50 ml @ 100 mls/hr DAILY IV 01/06/25 14:00 01/08/25 12:16 DC 01/08/25 09:34 100 MLS/HR Doxycycline Hyclate 250 ml @ 125 mls/hr Q12H IV 01/05/25 10:00 01/06/25 21:05 DC 01/06/25 09:30 125 MLS/HR Doxycycline Hyclate 250 ml @ 125 mls/hr Q12H IV 01/06/25 21:30 01/16/25 21:29 01/08/25 20:29 125 MLS/HR Folic Acid (FOLic ACID 1 MG TABLET) 1 mg DAILY PO 01/07/25 10:30 02/06/25 10:29 01/08/25 08:00 1 MG Furosemide (LASix 20MG VIAL) 20 mg Q12H IV 01/07/25 16:00 01/20/25 16:00 01/09/25 03:33 20 MG Insulin Glargine (LANtus 100 UNITS/ML 10 ML VIAL) 15 units Q12H SQ 01/07/25 21:30 02/05/25 21:29 01/08/25 20:30 15 UNITS Insulin Glargine (LANtus 100 UNITS/ML 10 ML VIAL) 20 units HS SQ 01/06/25 21:00 01/06/25 21:05 DC Insulin Glargine (LANtus 100 UNITS/ML 10 ML VIAL) 20 units HS SQ 01/06/25 21:30 01/07/25 10:24 DC 01/06/25 21:33 20 UNITS Insulin Human Regular (humuLIN R 100 UNIT/ML 3ML) INSULIN SLIDING SCAL... ACHS SQ 01/05/25 07:30 01/05/25 09:57 DC 01/05/25 07:59 16 UNIT Insulin Human Regular (humuLIN R 100 UNIT/ML 3ML) INSULIN SLIDING SCAL... ACHS SQ 01/05/25 11:30 01/06/25 16:43 DC 01/06/25 11:50 8 UNIT Insulin Human Regular (humuLIN R 100 UNIT/ML 3ML) INSULIN SLIDING SCAL... ACHS SQ 01/06/25 17:00 01/07/25 13:32 DC 01/06/25 17:17 16 UNIT Lactated Ringer's 1,000 ml @ 100 mls/hr Q10H IV 01/05/25 02:30 01/05/25 09:51 DC 01/05/25 02:30 100 MLS/HR Multivitamins Therapeutic (Multivitamin Tablet) 1 tab DAILY PO 01/07/25 10:30 02/06/25 10:29 01/08/25 08:00 1 TAB Nicotine (Nicoderm) 21 mg DAILY TD 01/05/25 09:00 02/04/25 08:59 01/08/25 08:01 21 MG Pantoprazole Sodium (PROTonix 40MG TAB) 40 mg DAILY PO 01/05/25 09:00 02/04/25 08:59 01/08/25 08:00 40 MG Piperacillin Sod/ Tazobactam Sod (Zosyn 3.375gm+NS 50ml) 3.375 gm Q12H IV 01/05/25 02:30 01/07/25 13:24 DC 01/07/25 02:45 3.375 GM Sodium Chloride 1,000 ml @ 50 mls/hr Q20H IV 01/05/25 10:00 02/04/25 09:59 01/09/25 05:56 50 MLS/HR Triamcinolone Acetonide (Kenalog/ Aristocort) 1 APPLY TP BID BID TP 01/07/25 11:00 02/06/25 10:59 01/08/25 20:31 1 APPL Vancomycin HCl (Vancomycin Protocol) 1 each AD IV 01/07/25 12:30 01/07/25 12:40 MAITE PISANO MD Jan 09, 2025 06:16
[2025-01-09] MEDS: PoTASSium chloRIDE 10MEQ/100ML 100 ML IV PRN (06:26)
--- NOTE | 2025-01-09 07:30 | NUR ---
DR. FLORES AT BEDSIDE. DRAKE RESCHEDULED FOR TOMORROW AM.
--- NOTE | 2025-01-09 07:38 | PN ---
[facility] PROGRESS NOTE Date of Service: Jan 09, 2025 Time of Service: 07:34 SUBJECTIVE: [ ] The patient has been seen and examined at bedside, no acute events overnight, the patient is comfortable, cooperating well, alert oriented x3, he is on a CIWA protocol, not combative. BP 123/70, rest of vital signs unremarkable. Patient received transfusion of 1 unit of platelet, platelet count improved to 27, per veterinary x ray operator, likely due to splenomegaly. Echocardiogram reviewed, hypodense echogenic mobile vegetation to right coronary cusp leaflet, per cardiology once platelet count is greater than 50 1000 we will proceed with a a DRAKE. The pa tient also with a elevated blood sugar, continue insulin sliding scale, add insulin glargine 20 units subcutaneously at bedtime. Continue the patient on broad-spectrum IV antibiotics, continue to trend WBC in a.m.. 01/07 patient is seen and examined at bedside, case discussed with the RN, patient upgraded last night to the ICU to start insulin drip as blood glucose per sistently greater than 400. Patient started on dexamethasone IV by veterinary x ray operator do to ITP. Platelet count slightly better today at 41. Upon my initial encounter with the patient admitted that he drinks more than 18 beers per day. He was started on CIWA protocol, however has remained hemodynamically stable, comfortable in bed, no signs of withdrawal, cooperating fine. Not agitated, not combative. Toxicology screen positive for cocaine. Sodium level slowly improvi ng, today 132. Serology positive for influenza type A. The patient with significant proteinuria consistent with diabetic nephropathy, creatinine slowly trending down, no need for renal replacement therapy per wrapper stemmer hand. Patient with blood culture positive for Staphylococcus aureus, with urine culture positive for Klebsiella pneumoniae. We will add vancomycin IV pharmacy to dose. We will request Infectious Disease consultation. Echocardiogram reviewed, hypodense echogenic mobile vegetation to right coronary cusp leaflet, per cardiology once platelet count is greater than 50 1000 we will proceed with a a DRAKE. CT abdomen with gallstones in the gallbladder. HIDA scan pending 01/08 patient seen at bedside, no acute events overnight. He continues on insulin drip with an anion gap of 14, we will continue until the gap is closed. P latelets 54, we will follow up with Cardiology on optimal timing for DRAKE. Continue with IV antibiotics, further care per critical Care. 2/10 patient seen at bedside, no acute events overnight. Anion gap is still open at 14, we will continue IV insulin. Platelets improved from 54 up to 71, CO2 decreased from 17 down to 15. Cardiology planning on DRAKE today, we will follow up postprocedure. Repeat blood cultures are positive for Gram-positive organisms which further supports underlying endocarditis. Continue with IV antibiotics, appreciate Infectious Disease recommendations. He has been afebrile, hemodynamically stable saturating well on room air. WBC increased from 12.8 up to 13.6, BUN decreased from 93 down to 90, creatinine decreased from 2.5 down to 2.3, remainder of his labs are relatively unremarkable. REVIEW OF SYSTEMS 12 point review of systems negative unless noted in HPI PHYSICAL EXAM GENERAL APPEARANCE: The patient is awake, alert, and oriented, in no acute cardiopulmonary distress. NEUROLOGICAL: Cranial nerves II-XII grossly intact. Motor is 5/5 in bilateral upper and lower extremities proximal to distal. No sensory deficits. HEENT: Face is symmetric. Pupils are equal and reactive. Extraocular movements are intact. NECK: Supple. No JVD. No thyromegaly. No submental, submandibular, pre- /postauricular, occipital or supraclavicular lymphadenopathy. CHEST: Normal chest expansion. No Telemetry. LUNGS: Absence of any rales, rhonchi or any wheezing. CARDIOVASCULAR: Regular. S1 and S2 normal. No appreciable rubs, murmurs or gallops. ABDOMEN: Soft, nontender, and nondistended. There is no rebound, voluntary guarding, or rigidity. : Deferred. No Ortega. EXTREMITIES: Non-edematous and not cyanotic. No clubbing. Good capillary refill. SKIN: No skin breakdown. Vital Signs (last 8hr) Date Time Temp Pulse Resp B/P (MAP) Pulse Ox O2 Delivery O2 Flow Rate FiO2 01/09/25 07:00 68 13 141/86 100 Room Air 01/09/25 06:00 72 22 161/87 100 Room Air 01/09/25 05:00 82 23 146/92 100 Room Air 01/09/25 04:00 97.3 82 24 141/92 100 Room Air 01/09/25 04:00 100 Room Air* 0 21 01/09/25 03:00 81 22 123/90 100 Room Air 01/09/25 02:00 73 24 155/92 99 Room Air 01/09/25 01:00 71 20 151/104 100 Room Air 01/09/25 00:00 97.3 77 29 164/99 99 Room Air 01/09/25 00:00 100 Room Air* 0 21 LABS: Laboratory: Test 01/09/25 06:16 01/09/25 04:08 01/08/25 04:49 01/07/25 16:15 Range/Units Whole Blood Glucose 97 70-110 MG/DL White Blood Count 13.6 H 4.8-10.8 K/uL Red Blood Count 4.72 4.50-6.20 MIL/uL Hemoglobin 15.1 14.0-18.0 g/dL Hematocrit 42.3 42-54 % Mean Corpuscular Volume 89.6 79-99 fL Mean Corpuscular Hemoglobin 32.0 27.0-33.0 pg Mean Corpuscular Hemoglobin Concent 35.7 32.0-36.0 g/dL Red Cell Distribution Width 13.7 11.0-15.5 % Platelet Count 71 L 130-400 K/uL Mean Platelet Volume 12.6 H 7.5-10.5 fL Immature Granulocyte % (Auto) 1.6 H 0-1 % Neutrophils (%) (Auto) 84.8 H 40.0-77.0 % Lymphocytes (%) (Auto) 5.5 L 21.0-51.0 % Monocytes (%) (Auto) 7.9 3.0-13.0 % Eosinophils (%) (Auto) 0.1 0.0-8.0 % Basophils (%) (Auto) 0.1 0.0-5.0 % Neutrophils # (Auto) 11.5 H 1.8-7.7 K/uL Lymphocytes # (Auto) 0.8 L 1.0-4.8 K/uL Monocytes # (Auto) 1.1 H 0.1-1.0 K/uL Eosinophils # (Auto) 0.01 0.00-0.70 K/uL Basophils # (Auto) 0.02 0.00-0.20 K/uL Absolute Immature Granulocyte (auto 0.22 0-1 K/uL Nucleated Red Blood Cells 0.0 0.0-0.19 % Sodium Level 140 136-145 mmol/L Potassium Level 3.8 3.5-5.1 mmol/L Chloride Level 111 101-111 mmol/L Carbon Dioxide Level 15 L 21-32 mmol/L Blood Urea Nitrogen 90 *H 7-18 mg/dL Creatinine 2.3 H 0.5-1.3 mg/dL Glomerular Filtration Rate Calc 35 >90 mL/min Random Glucose 112 H 70-105 mg/dL Total Calcium 7.4 L 8.5-10.1 mg/dL Total Bilirubin 1.6 H 0.2-1.0 mg/dL Aspartate Amino Transf (AST/SGOT) 36 10-37 U/L Alanine Aminotransferase (ALT/SGPT) 29 12-78 U/L Alkaline Phosphatase 97 50-136 U/L Total Protein 6.2 6.0-8.3 g/dL Albumin 1.9 L 3.5-5.0 g/dL Phosphorus Level 3.9 2.5-4.9 mg/dL Magnesium Level 2.50 H 1.80-2.40 mg/dL B-Type Natriuretic Peptide 123 H 0-100 pg/mL Current Medications Medications (Trade) Dose Ordered Sig/Asya Route PRN Reason Start Time Stop Time Status Last Admin Dose Admin Acetaminophen (TYLenol 325MG TAB) 650 mg Q6H PRN PO TEMPERATURE GREATER THAN 101.5 01/05/25 02:30 02/04/25 02:29 01/08/25 04:21 650 MG Aspirin (Aspirin 81mg Chew Tab) 81 mg DAILY PO 01/05/25 09:00 01/05/25 09:53 DC Benzocaine (Cepacol Sore Throat Lozenge) 1 each Q4H PRN MM SORE THROAT 01/05/25 02:30 02/04/25 02:29 Calcium Gluconate 1 gm/Sodium Chloride 100 ml @ 0 mls/hr AD PRN IV Serum Calcium Correction 01/08/25 02:30 02/07/25 02:29 01/08/25 23:32 90 MLS/HR Cefazolin Sodium (Ancef) 2 gm Q12H IVPB 01/07/25 13:30 01/17/25 13:29 01/09/25 01:24 2 GM Chlordiazepoxide HCl (LIBrium 25 MG CAP) 25 mg Q8H PO 01/05/25 02:30 01/12/25 02:29 01/09/25 03:33 25 MG Dexamethasone Sodium Phosphate 20 mg/Sodium Chloride 52 ml @ 100 mls/hr DAILY IV 01/09/25 09:00 02/08/25 08:59 Dexamethasone Sodium Phosphate 40 mg/Sodium Chloride 50 ml @ 100 mls/hr DAILY IV 01/06/25 14:00 01/08/25 12:16 DC 01/08/25 09:34 100 MLS/HR Dextrose (D50w) 50 ml AD PRN IV HYPOGLYCEMIA PROTOCOL 01/05/25 10:00 02/04/25 09:59 Doxycycline Hyclate 250 ml @ 125 mls/hr Q12H IV 01/05/25 10:00 01/06/25 21:05 DC 01/06/25 09:30 125 MLS/HR Doxycycline Hyclate 250 ml @ 125 mls/hr Q12H IV 01/06/25 21:30 01/16/25 21:29 01/08/25 20:29 125 MLS/HR Folic Acid (FOLic ACID 1 MG TABLET) 1 mg DAILY PO 01/07/25 10:30 02/06/25 10:29 01/08/25 08:00 1 MG Furosemide (LASix 20MG VIAL) 20 mg Q12H IV 01/07/25 16:00 01/20/25 16:00 01/09/25 03:33 20 MG Glucagon (Glucagon 1mg Kit) 1 mg AD PRN IM HYPOGLYCEMIA PROTOCOL 01/05/25 10:00 02/04/25 09:59 Hydralazine HCl (APRESOLine 20MG INJ) 5 mg Q6H PRN IV For:SBP above 160;DBP above 90 01/05/25 14:30 02/04/25 14:29 01/09/25 01:21 5 MG Hydralazine HCl (APRESOLine 20MG INJ) 10 mg Q6H PRN IV For:SBP above 160;DBP above 90 01/05/25 02:30 01/05/25 09:53 DC Insulin Glargine (LANtus 100 UNITS/ML 10 ML VIAL) 15 units Q12H SQ 01/07/25 21:30 02/05/25 21:29 01/08/25 20:30 15 UNITS Insulin Glargine (LANtus 100 UNITS/ML 10 ML VIAL) 20 units HS SQ 01/06/25 21:00 01/06/25 21:05 DC Insulin Glargine (LANtus 100 UNITS/ML 10 ML VIAL) 20 units HS SQ 01/06/25 21:30 01/07/25 10:24 DC 01/06/25 21:33 20 UNITS Insulin Human Regular (humuLIN R 100 UNIT/ML 3ML) INSULIN SLIDING SCAL... ACHS SQ 01/05/25 07:30 01/05/25 09:57 DC 01/05/25 07:59 16 UNIT Insulin Human Regular (humuLIN R 100 UNIT/ML 3ML) INSULIN SLIDING SCAL... ACHS SQ 01/05/25 11:30 01/06/25 16:43 DC 01/06/25 11:50 8 UNIT Insulin Human Regular (humuLIN R 100 UNIT/ML 3ML) INSULIN SLIDING SCAL... ACHS SQ 01/06/25 17:00 01/07/25 13:32 DC 01/06/25 17:17 16 UNIT Insulin Human Regular 100 unit/ Sodium Chloride 100 ml @ 0 mls/hr AD PRN IV HYPERGLYCEMIA PROTOCOL 01/06/25 19:30 02/05/25 19:29 01/08/25 20:31 7 MLS/HR Lactated Ringer's 1,000 ml @ 100 mls/hr Q10H IV 01/05/25 02:30 01/05/25 09:51 DC 01/05/25 02:30 100 MLS/HR Lorazepam (AtiVAN) 1 mg Q4H PRN IVP ALCOHOL WITHDRAWAL PROTOCOL 01/05/25 02:30 01/12/25 02:29 Magnesium Sulfate 50 ml @ 0 mls/hr PROTOCOL PRN IV h 01/05/25 02:30 02/04/25 02:29 01/05/25 03:24 25 MLS/HR Morphine Sulfate (morPHINE 2MG SYG) 2 mg Q4H PRN IVP SEVERE PAIN (7-10) 01/05/25 02:30 01/12/25 02:29 Multivitamins Therapeutic (Multivitamin Tablet) 1 tab DAILY PO 01/07/25 10:30 02/06/25 10:29 01/08/25 08:00 1 TAB Nicotine (Nicoderm) 21 mg DAILY TD 01/05/25 09:00 02/04/25 08:59 01/08/25 08:01 21 MG Nitroglycerin (Nitrostat) 0.4 mg AD PRN SL CHEST PAIN 01/05/25 02:30 02/04/25 02:29 Ondansetron HCl (zoFRAN 4MG INJ) 4 mg Q6H PRN IV NAUSEA/VOMITING 01/05/25 02:30 02/04/25 02:29 Pantoprazole Sodium (PROTonix 40MG TAB) 40 mg DAILY PO 01/05/25 09:00 02/04/25 08:59 01/08/25 08:00 40 MG Pharmacy Profile Note (Pharmacy Communication) 1 each PROTOCOL PRN MISC ETOH Withdrawal Score changes 01/05/25 02:30 01/12/25 02:29 Piperacillin Sod/ Tazobactam Sod (Zosyn 3.375gm+NS 50ml) 3.375 gm Q12H IV 01/05/25 02:30 01/07/25 13:24 DC 01/07/25 02:45 3.375 GM Potassium Phosphate 250 ml @ 42 mls/hr PROTOCOL PRN IV PROTOCOL 01/05/25 10:00 02/04/25 09:59 Potassium Chloride 100 ml @ 100 mls/hr AD PRN IV POTASSIUM PROTOCOL 01/05/25 02:30 01/07/25 10:12 DC Potassium Chloride 100 ml @ 100 mls/hr AD PRN IV POTASSIUM PROTOCOL 01/07/25 10:30 02/06/25 10:29 01/09/25 06:26 100 MLS/HR Potassium Chloride (K-Dur 10meq Sr Tab) 10 meq AD PRN PO POTASSIUM PROTOCOL 01/06/25 09:30 02/04/25 02:29 01/08/25 23:35 10 MEQ Potassium Chloride (K-Dur/Klor-Con 20meq) 10 meq AD PRN PO POTASSIUM PROTOCOL 01/05/25 02:30 01/06/25 09:12 DC 01/05/25 22:15 10 MEQ Potassium Chloride (K-Dur/Klor-Con 20meq) 10 meq AD PRN PO POTASSIUM PROTOCOL 01/07/25 10:30 01/07/25 10:12 DC Potassium Chloride (KCl 10% Elixir 20meq/15ml) 10 meq AD PRN PO POTASSIUM PROTOCOL 01/05/25 02:30 01/07/25 10:12 DC 01/06/25 17:16 10 MEQ Potassium Chloride (KCl 10% Elixir 20meq/15ml) 10 meq AD PRN PO POTASSIUM PROTOCOL 01/07/25 10:30 02/06/25 10:29 01/08/25 15:28 10 MEQ Sodium Chloride 1,000 ml @ 50 mls/hr Q20H IV 01/05/25 10:00 02/04/25 09:59 01/09/25 05:56 50 MLS/HR Triamcinolone Acetonide (Kenalog/ Aristocort) 1 APPLY TP BID BID TP 01/07/25 11:00 02/06/25 10:59 01/08/25 20:31 1 APPL Vancomycin HCl (Vancomycin Protocol) 1 each AD IV 01/07/25 12:30 01/07/25 12:40 DC DIAGNOSTICS / RADIOLOGY: [ ] ASSESSMENT: Severe sepsis, POA Gram-positive bacteremia secondary to Staphylococcus aureus, POA Hypodense echogenic mobile vegetation to right coronary cusp leaflet on echocardiogram 01/05/2025 Urinary tract infection, secondary to Klebsiella pneumoniae, POA Strep pharyngitis, POA ITP, POA Leukocytosis, POA Hyperlactatemia, POA Acute kidney injury, POA Hypokalemia, POA Hyponatremia, POA Hypomagnesemia, POA POA New onset Uncontrolled Diabetes mellitius type2, POA Elevated troponin, POA Cocaine abuse, POA Alcohol abuse, POA Tobacco dependence, POA Significant proteinuria, POA Diabetic nephropathy, POA Gallstones, POA PLAN: -patient remains admitted to the ICU -continue the patient on insulin drip, transition to subcutaneous when anion gap 12 -continue close monitor the patient's blood glucose level, monitoring metabolic status. Endocrinology consultation requested, follow input and recommendation. -continue to monitor sodium level in a.m. -patient started on dexamethasone IV due to ITP per veterinary x ray operator. Continue to follow input and recommendations. -renal function slightly improved today, patient evaluated by wrapper stemmer hand, the patient with significant proteinuria on UA consistent with diabetic nephropathy. No acute need for any form of renal replacement therapy. -blood culture positive for Staphylococcus aureus. Urine culture positive for Klebsiella pneumoniae. Continue vancomycin IV pharmacy to dose. ID consultation requested, follow input and recommendation. -Echocardiogram with hypodense echogenic mobile vegetation to right coronary cusp leaflet, per cardiology once platelet count is greater than 50,000 will proceed with a a DRAKE. -cholelithiasis noted on CT abdomen, HIDA scan pending -continue to follow critical care input and recommendation Disposition: Pending DRAKE, antibiotics, transition to subcutaneous insulin, cardiology recommendations All questions answered time spent: > 35 min ARVIND NOLAND MD Jan 09, 2025 07:38
--- NOTE | 2025-01-09 07:55 | PN ---
[facility] CARDIOLOGY PROGRESS NOTE Date Patient Seen: Jan 09, 2025 Time of Visit: 07:53 Interval History: [Platelets improved to 71k. DRAKE in AM. ] Physical Examination: GENERAL: [No acute distress.] HEAD: [Normal with no signs of head trauma.] EYES: [PERRLA, EOMI, conjunctiva and sclera normal.] ENT: [Hearing grossly intact, normal oropharynx.] NECK: [Supple without JVD. There is no tenderness, lymphadenopathy, or masses. No thyromegaly. Normal carotid upstrokes without bruits.] LUNGS: [Clear breath sounds bilaterally. There are right basilar rales one third of the way up the chest. No wheezes, or rhonchi.] HEART: [Normal rate and rhythm. Normal S1 and S2 without mumurs, gallop or rub.] VASC: [Peripheral pulses +2 bilaterally.] ABD: [Bowel sounds normal, soft, nontender, no masses, no organomegaly. No audible bruits.] : [Not examined] LYMPH: [No lymphadenopathy noted.] EXT: [No clubbing, cyanosis or edema.] SKIN: [No rashes or lesions noted.] NEURO: [Awake, alert, and oriented x3. No focal sensory or strength deficits noted.] Laboratory: [ ] Hematology Labs: Test 01/09/25 04:08 Range/Units White Blood Count 13.6 H 4.8-10.8 K/uL Red Blood Count 4.72 4.50-6.20 MIL/uL Hemoglobin 15.1 14.0-18.0 g/dL Hematocrit 42.3 42-54 % Mean Corpuscular Volume 89.6 79-99 fL Mean Corpuscular Hemoglobin 32.0 27.0-33.0 pg Mean Corpuscular Hemoglobin Concent 35.7 32.0-36.0 g/dL Red Cell Distribution Width 13.7 11.0-15.5 % Platelet Count 71 L 130-400 K/uL Mean Platelet Volume 12.6 H 7.5-10.5 fL Immature Granulocyte % (Auto) 1.6 H 0-1 % Neutrophils (%) (Auto) 84.8 H 40.0-77.0 % Lymphocytes (%) (Auto) 5.5 L 21.0-51.0 % Monocytes (%) (Auto) 7.9 3.0-13.0 % Eosinophils (%) (Auto) 0.1 0.0-8.0 % Basophils (%) (Auto) 0.1 0.0-5.0 % Neutrophils # (Auto) 11.5 H 1.8-7.7 K/uL Lymphocytes # (Auto) 0.8 L 1.0-4.8 K/uL Monocytes # (Auto) 1.1 H 0.1-1.0 K/uL Eosinophils # (Auto) 0.01 0.00-0.70 K/uL Basophils # (Auto) 0.02 0.00-0.20 K/uL Absolute Immature Granulocyte (auto 0.22 0-1 K/uL Nucleated Red Blood Cells 0.0 0.0-0.19 % Chemistry Labs: Test 01/09/25 06:16 01/09/25 04:08 01/08/25 04:49 01/07/25 16:15 Range/Units Whole Blood Glucose 97 70-110 MG/DL Sodium Level 140 136-145 mmol/L Potassium Level 3.8 3.5-5.1 mmol/L Chloride Level 111 101-111 mmol/L Carbon Dioxide Level 15 L 21-32 mmol/L Blood Urea Nitrogen 90 *H 7-18 mg/dL Creatinine 2.3 H 0.5-1.3 mg/dL Glomerular Filtration Rate Calc 35 >90 mL/min Random Glucose 112 H 70-105 mg/dL Total Calcium 7.4 L 8.5-10.1 mg/dL Total Bilirubin 1.6 H 0.2-1.0 mg/dL Aspartate Amino Transf (AST/SGOT) 36 10-37 U/L Alanine Aminotransferase (ALT/SGPT) 29 12-78 U/L Alkaline Phosphatase 97 50-136 U/L Total Protein 6.2 6.0-8.3 g/dL Albumin 1.9 L 3.5-5.0 g/dL Phosphorus Level 3.9 2.5-4.9 mg/dL Magnesium Level 2.50 H 1.80-2.40 mg/dL B-Type Natriuretic Peptide 123 H 0-100 pg/mL Diagnostics / Radiology: [Copy/Paste Echos/Imaging Report here] Impression and Plan: [ Aortic valve endocarditis with mobile vegetation in the right coronary cusp of the aortic valve by 2D echocardiogram 01/05/2025: Staph aureus in 2/2 sets of blood cultures 01/05/2025: -Infectious Disease has adjusted antibiotic therapy -plans for DRAKE have been deferred due to thrombocytopenia, with plans to proceed when platelet count greater than 50,000. Today platelet counts are 71,000 and we will consider tentative transesophageal echo 01/10. Maintain NPO after midnight and reassess platelet count in a.m. -a 2nd set of blood cultures were repeated 01/07/2025 Thrombocytopenia with platelet count falling to 21,000 on 01/05/2025, now improving to 57,000: -Dr. 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 per hour and this has been reduced - continue present furosemide 20 IV q.12 hours Comorbidities: Hypertension Hyperlipidemia Coronary artery disease status post prior PTCA and stent procedure to the LAD 12/19/2015 , presenting as a non ST segment elevation PA in the setting of hypertensive emergency Probable sleep apnea Alcohol and cocaine abuse Thank you for this consult. I will continue to follow along for DRAKE. EVANS FLORES MD Jan 09, 2025 07:55
[2025-01-09] MEDS: dexaMETHasone 10MG/ML 1ML VIAL 20 MG in 0.9%NACL 50ML 50 ML IV SCH (09:22)
--- NOTE | 2025-01-09 10:07 | PN ---
FOLLOWUP PROGRESS NOTE SUBJECTIVE: A 44-year-old male with history of diabetes mellitus and hypertension. The patient presented to the hospital with acute renal failure. The patient's creatinine continues to slowly improve. The patient with underlying gram-positive bacteremia. A 2D echo revealed questionable vegetation. The patient is scheduled for a DRAKE and the patient is being seen as a followup visit for all the above. REVIEW OF SYSTEMS: GENERAL: The patient is feeling weak and tired. HEENT: No change in vision. No change in hearing. CARDIOVASCULAR: There is no current chest pain or palpitations. PULMONARY: No shortness of breath. GASTROINTESTINAL: He is tolerating a diet. MUSCULOSKELETAL: Complains of weakness. PHYSICAL EXAMINATION: VITAL SIGNS: Blood pressure 141/86, pulse 60s. GENERAL: Chronically ill male, much older than appearing. HEENT: Head is atraumatic. Pupils equal, roving to light. Oropharynx is without exudate. Nares clear. NECK: There is no JVP. There is no thyromegaly, no mass. CARDIOVASCULAR: Regular. There is no S3, S4 gallop. LUNGS: Coarse with equal thoracic movement. ABDOMEN: Soft, nondistended, nontender. EXTREMITIES: Reveal no clubbing, no cyanosis. NEUROLOGIC: He is awake. He is alert. LABORATORY DATA: Sodium 140, potassium 3.8, chloride 111, bicarbonate 15, BUN 90, creatinine is 2.3. Hemoglobin 15, hematocrit 42. IMPRESSION: * Acute on chronic renal failure. * Diabetes mellitus. * Hypertension. * Bacteremia. * History of substance abuse. PLAN: The patient does have significant renal dysfunction. The patient's creatinine continues to be elevated. The patient's 2D echo revealed questionable vegetation. He is currently scheduled for DRAKE in the a.m. We will continue to monitor closely. All labs can be repeated in the a.m. TID: [id number] RECEIPT: [id number]
--- NOTE | 2025-01-09 11:41 | PN ---
[facility] PROGRESS NOTE Date Patient Seen: Jan 09, 2025 Time of Visit: 11:41 Supervising Physician: Dr. Inman Primary Care Physician: Religious Education Director PCP Outpatient Specialists: [ ] Inpatient Consults:Critical care, Hematology, cardiology and nephrology PROBLEM LIST: Severe sepsis and shock POA Urinary tract infection, POA Klebsiella pneumoniae cultured in the urine Staph aureus bacteremia POA Aortic valve endocarditis with mobile vegetation Strep pharyngitis, POA Acute kidney injury, POA improving Hypokalemia, POA improving Hyponatremia, POA improving Thrombocytopenia, POA improving Uncontrolled Diabetes mellitius type2, POA HgA1C 8.5 Elevated troponin, POA suspected type II SD Substance abuse, POA, cocaine/Marijuana Alcohol dependence, POA Tobacco dependence, POA Hepatomegaly with hepatosteatosis MELD score on admission of 31 Morbid obesity Noncompliance behavior INTERVAL HISTORY: 01/06/2025: At the time of my evaluation, the patient is in his assigned room. He is awake alert and afebrile. Respiratory barron the patient is maintaining optimal oxygenation and saturation on room air. On the monitor, the patient remains hemodynamically stable. He is feeding orally and denies any abdominal pain, nausea, vomiting or diarrhea. The patient continues to void spontaneously and on I's and O's, he maintains a -1050.0. On laboratory, the WBC count improved from 13.1 yesterday to 10.5 today. He continues on broad-spectrum antibiotic coverage currently on doxycycline and Zosyn. Also, the sodium count remains low but is slowly improving, potassium is low 3.2, chloride of 91, BUN of 98, creatinine of 4.0 and a GFR of 18. Blood glucose of remain elevated in the 400s. Blood cultures are currently showing Gram-positive cocci in clusters and urine culture showing Gram-negative rods. No new imaging for review. No other complaint. 01/07/2025: At the time of my evaluation, the patient was lying in bed. Per the staff nurse, no acute events overnight. Patient reports feeling much better today and family members were present at the bedside. Continues breathing on room air. No new chest imaging for review today. No shortness a breath or increased work of breathing and SpO2 maintain above 92%. On the monitor, the patient is hemodynamically stable. Denies any chest pain and no arrhythmias were noted. The patient is feeding orally currently we will be started on clear liquid diet and there is no nausea, vomiting or diarrhea. The patient is voiding, total voided volume of 2050 mL and a net balance of 450.0. Denies any constipation. On labs today, CBC showed an interval increase in WBC to 11.2. Chemistry panel showed improving electrolytes, the today sodium 135, potassium 3.1, chloride 105, CO2 of 17, BUN of 100, creatinine of 2.9 and a GFR of with a 27. Total calcium of 6.6. Total bili of 2.7, AST 38, ALT of 32 and alk-phos of 86. Blood glucose overnight was persistently in the 400 for which the patient was brought into the ICU and started on insulin drip. Microbiology data showed staph aureus cultured in 1 of 2 blood culture vials and there was Klebsiella pneumoniae in the urine. No other complaint. 01/08/2025: At the time of my evaluation, the patient was lying in bed. Per the staff nurse, no acute events overnight. Respiratory barron the patient is maintaining optimal oxygenation and saturation on room air. No chest imaging for review today. No shortness a breath or increased work of breathing and SpO2 maintain above 92%. On the monitor, the patient is hemodynamically stable. Denies any chest pain and no arrhythmias were noted. The patient is feeding orally and there is no nausea, vomiting or diarrhea. The patient is voiding spontaneously in a urinal with voided volume of 4500 and a net fluid balance of -1248.0. The patient continues on insulin drip 5 units/hour and blood sugars have maintained in the mid 100s. On labs today, CBC showed WBC of 12.4. Chemistry panel showed improving renal parameters today BUN 95 and a creatinine of 2.5, GFR of 32. Liver function showed a total bili of 1.8, AST 38 and ALT 34. No other complaint. 01/09/2025: At the time of my evaluation, the patient was lying in bed. Per the staff nurse, no acute events overnight. Respiratory barron the patient is maintaining optimal oxygenation and saturation on room air. No chest imaging for review today. No shortness a breath or increased work of breathing and SpO2 maintain above 92%. On the monitor, the patient is hemodynamically stable. D enies any chest pain and no arrhythmias were noted. The patient is feeding orally and there is no nausea, vomiting or diarrhea. The patient is voiding spontaneously in a urinal with voided volume of 1400 [place] [address].0. The patient continues on insulin drip and blood sugars have maintained in the mid 100s. On labs today, CBC showed WBC of 13.6. Chemistry panel showed improving renal parameters today BUN 78 and a creatinine of 2.2, GFR of 37. No other complaint. REVIEW OF SYSTEMS: 12 point ROS reviewed with patient. Pertinent positives mentioned above. Otherwise negative. PHYSICAL EXAM: GENERAL: alert, weak, awake oriented x 3 HEENT: EOMI, Sclera non icteric, moist mucosa NECK: Supple, no JVD, trachea midline LUNGS: Clear breath sounds bilaterally. No wheezes HEART: Regular rate and rhythm. Normal S1 and S2, without murmurs ABD: Abdomen soft, nontender. Bowel sounds present EXT: No clubbing cyanosis or edema NEURO: Alert and oriented to person, follows commands Vital Signs (last 8hr) Date Time Temp Pulse Resp B/P (MAP) Pulse Ox O2 Delivery O2 Flow Rate FiO2 01/09/25 08:00 100 Room Air* 0 21 01/09/25 07:00 68 13 141/86 100 Room Air 01/09/25 06:00 72 22 161/87 100 Room Air 01/09/25 05:00 82 23 146/92 100 Room Air 01/09/25 04:00 97.3 82 24 141/92 100 Room Air 01/09/25 04:00 100 Room Air* 0 21 LABS: Hematology Labs: Test 01/09/25 04:08 Range/Units White Blood Count 13.6 H 4.8-10.8 K/uL Red Blood Count 4.72 4.50-6.20 MIL/uL Hemoglobin 15.1 14.0-18.0 g/dL Hematocrit 42.3 42-54 % Mean Corpuscular Volume 89.6 79-99 fL Mean Corpuscular Hemoglobin 32.0 27.0-33.0 pg Mean Corpuscular Hemoglobin Concent 35.7 32.0-36.0 g/dL Red Cell Distribution Width 13.7 11.0-15.5 % Platelet Count 71 L 130-400 K/uL Mean Platelet Volume 12.6 H 7.5-10.5 fL Immature Granulocyte % (Auto) 1.6 H 0-1 % Neutrophils (%) (Auto) 84.8 H 40.0-77.0 % Lymphocytes (%) (Auto) 5.5 L 21.0-51.0 % Monocytes (%) (Auto) 7.9 3.0-13.0 % Eosinophils (%) (Auto) 0.1 0.0-8.0 % Basophils (%) (Auto) 0.1 0.0-5.0 % Neutrophils # (Auto) 11.5 H 1.8-7.7 K/uL Lymphocytes # (Auto) 0.8 L 1.0-4.8 K/uL Monocytes # (Auto) 1.1 H 0.1-1.0 K/uL Eosinophils # (Auto) 0.01 0.00-0.70 K/uL Basophils # (Auto) 0.02 0.00-0.20 K/uL Absolute Immature Granulocyte (auto 0.22 0-1 K/uL Nucleated Red Blood Cells 0.0 0.0-0.19 % Chemistry Labs: Test 01/09/25 10:26 01/09/25 04:08 01/08/25 04:49 01/07/25 16:15 Range/Units Whole Blood Glucose 102 70-110 MG/DL Sodium Level 140 136-145 mmol/L Potassium Level 3.8 3.5-5.1 mmol/L Chloride Level 111 101-111 mmol/L Carbon Dioxide Level 15 L 21-32 mmol/L Blood Urea Nitrogen 90 *H 7-18 mg/dL Creatinine 2.3 H 0.5-1.3 mg/dL Glomerular Filtration Rate Calc 35 >90 mL/min Random Glucose 112 H 70-105 mg/dL Total Calcium 7.4 L 8.5-10.1 mg/dL Total Bilirubin 1.6 H 0.2-1.0 mg/dL Aspartate Amino Transf (AST/SGOT) 36 10-37 U/L Alanine Aminotransferase (ALT/SGPT) 29 12-78 U/L Alkaline Phosphatase 97 50-136 U/L Total Protein 6.2 6.0-8.3 g/dL Albumin 1.9 L 3.5-5.0 g/dL Phosphorus Level 3.9 2.5-4.9 mg/dL Magnesium Level 2.50 H 1.80-2.40 mg/dL B-Type Natriuretic Peptide 123 H 0-100 pg/mL DIAGNOSTICS / RADIOLOGY RESULTS: [ ] PLAN Upon evaluation of this patient, he did meet criteria for severe sepsis. The patient was awake, alert and oriented x4. He was breathing on room air and did not require no oxygen supplementation at the time. On the monitor, he was hemodynamically stable and was not on any pressor therapy. The patient was feeding orally and denied any nausea vomiting or diarrhea. The patient was voiding spontaneously and denied any constipation. Because of the septic process the patient was started on antibiotic coverage and is currently receiving doxycycline and Zosyn. We will follow the culture results and adjust therapy as necessary. We will also follow the WBC trend and we will adjust therapy as necessary. We will repeat surveillance labs in the morning. We will monitor the patient's progress and response to management. Appreciate the opportunity given to participate in patient's care. We will follow along with you. We will continue to provide general supportive care, GI and DVT prophylaxis. Further orders per attending MD and hospital course. 01/07/2025: For now, we are going to continue current management for the patient. Patient will continue on room air and we will provide oxygen supplementation as necessary. We will monitor for any arrhythmias or other cardiac events. We will monitor the oral intake and supplement as necessary. We will monitor the urinary output and bowel activity. The patient is going to continue on the insulin drip and we will adjust the Lantus to 15units q.12 for total of 30 units per24 hour and we will wean off once the blood glucose continues to normalized. We will continue IV fluids ordered. The patient will also continue on antibiotic therapy ordered, which has now been changed to cefazolin. We will repeat surveillance labs in the morning. We will monitor the patient's progress and response to management. We will continue to provide general supportive care, GI and DVT prophylaxis. Further orders per attending MD and hospital course. 01/08/2025: For now, we are going to continue current management for the patient. Patient will continue on room air and we will provide oxygen supplementation as necessary. We will monitor for any arrhythmias or other cardiac events. The patient currently continues on clear liquid diet, I am going to advance the diet as tolerated if no surgical plans. We will monitor the oral intake and supplement as necessary. We will monitor the I&Os. The patient is going to continue on the insulin drip and we will adjust the Lantus to 20 units q.12 for total of 40 units per24 hour and we will wean off once the blood glucose has stabilized. The steroid dose has been decreased to 20 mg daily. We will continue IV fluids ordered. The patient will also continue on antibiotic therapy ordered. We will follow the cardiology plans for DRAKE due to the aortic valve endocarditis with mobile vegetation. We will repeat surveillance labs in the morning. We will monitor the patient's progress and response to management. We will continue to provide general supportive care, GI and DVT prophylaxis. Further orders per attending MD and hospital course. 01/09/2025: For now, we are going to continue current management for the patient. Patient will continue on room air and we will provide oxygen supplementation as necessary. We will monitor for any arrhythmias or other cardiac events. The patient currently continues on clear liquid diet, we will advance as tolerated. Per the general surgeon, no plans for surgical inter vention. We will monitor the oral intake and supplement as necessary. We will monitor the I&Os. The patient is going to continue on the insulin drip and we will DC in a.m. the patient will continue on Lantus, we will increase to 20 units. He will continue on steroid therapy as ordered by the national business director. The patient will also continue on antibiotic therapy ordered. We will follow the cardiology plans for DRAKE due to the aortic valve endocarditis with mobile vegetation. We will repeat surveillance labs in the morning. We will monitor the patient's progress and response to management. We will continue to provide general supportive care, GI and DVT prophylaxis. Further orders per attending MD and hospital course. NEURO: Minimize central acting medications as possible. Fall Precautions. Well lighted room through the day and minimize interruptions through the night to prevent acute delirium. PULMONARY: Supplemental 02 as needed Titrate Fio2 to keep Spo2 > or = 90% DuoNebs and CPT as needed IS hourly while awake for pulmonary hygiene Out of bed to chair as tolerated VAP Bundle CARDIOVASCULAR: Follow hemodynamics. Titrate vasopressor to keep MAP >65 or systolic blood pressure >95mmHg DIPS: None LINES: PIV's GI & NUTRITION: Continue nutritional support Aspirations precautions Prokinetic agents and laxatives as needed KIDNEYS & ELECTROLYTES: Strict monitoring of intake and output Daily weights Avoid nephrotoxic agents Monitor electrolytes and replace as needed Goal urine output of 30mL/hr or 0.5mL/kg/hr Urine output: [ ] Fluid Balance: [ ] ENDOCRINE: Maintain blood glucose between 100-180 at all times. Insulin sliding scale for blood glucose management INFECTIOUS DISEASE: Trend temperature. Mccormack-culture if febrile. Micro: [ ] Antibiotics: [ ] HEMATOLOGY & COAGULATION: Monitor H&H. Keep Hgb > 7 Transfuse 1 unit of PRBC for Hgb < 7 Transfuse 1 pack of platelets of platelets < 20, 000 Watch for any signs and symptoms of bleeding SKIN: Pressure ulcer prevention per facility protocol Rehab: PT/OT Prophylaxis: GI: Protonix DVT: [ ] Code Status: Full Resuscitation Disposition: ICU Other: Total patient care time exceeds 35 minutes excluding all procedures. Case was discussed and seen with my supervising physician. The above plan was formulated and agreed upon. RHEA ALICEA NP Jan 09, 2025 11:41
[2025-01-09 16:23] LABS: HIV 1&2 ANTIBODY Non-Reactive (Negative); HIV-1 p24 Antigen Non-Reactive (Negative)
--- NOTE | 2025-01-09 16:48 | PN ---
Mr. Jin is a 44-year-old male that was seen and examined today on 01/05/2025. Patient is a good historian and personal health. Patient is a good historian and personal health. Patient states that he came to the emergency department at the behest of his daughter. Patient's chief complaint is weakness. Onset was Thursday12/30/2024. Location is to entire body. Duration is constant. Character is described as, " today Orion needed help to get out of the sofa and out of the shower. I also fell down once. "There was no alleviating factors. Symptoms are aggravated with physical activity. Patient denies any associated chest pain or shortness and breath. I was consulted because of leukocytosis and severe thrombocytopenia. This patient have have any alcoholism. Patient also on cocaine. It seems the patient may be have pyelonephritis by CT scan with the patient was started on antibiotic treatment. This patient was found to have thrombocytopenia. Which was multifactorial including cirrhosis of the liver and possible ITP. Platelet count improved. This patient receiving dexamethasone 20 mg IV daily. Patient was found to have bacteremia. With the 2D echo showing possible vegetation of the valve. There is plan for DRAKE to be done tomorrow. PE General Appearance: Alert, Oriented X3, Cooperative, moderate distress HEENT: Atraumatic, PERRLA, EOMI, Other (Mucous membranes dry and cracked) Respiratory: Clear to auscultation, Normal air movement, NL respiratory effort Cardiovascular: Normal S1, Normal S2, Other (Tachycardia) Abdominal: Normal bowel sounds, Soft, No tenderness Extremities: No edema Skin: No significant lesion Neuro: Normal gait, Normal speech, Strength at 5/5 X4 ext, Sensation intact, Cranial nerves 3-12 NL Psych/Mental Status: Mental status NL, Mood NL, Thoughts/Content NL Assessment 1. Thrombocytopenia. 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 2. Acute on chronic renal failure 4. Severe sepsis. Possible bacteremia and possible endocarditis 5. Leukocytosis 6. Cocaine abuse 7. Alcohol abuse 8. Hepatomegaly 9. Splenomegaly 10. Bacteremia with possibility of endocarditis. Plan 1. Patient to continue with decrease the dose of dexamethasone to 20 mg IV. 2. There was hypersegmented neutrophils. This patient to Continue on folic acid 1 mg p.o. daily and vitamin B12 1000 mcg p.o. daily. 3. There is difficulty controlling his sugar. Patient on insulin drip. So this patient could benefit from IVIG. The IVIG could also could help this patient sepsis with the patient could improve significantly especially if he is immunodeficient. So we will follow-up with CBC tomorrow and may be plan our care accordingly. This patient may be will start on IVIG. I discussed the case with Dr. Navarro 4. Please do not transfuse any platelet anymore 5. Patient to have CBC tomorrow. Vitals/Labs Vital Signs Date Time Temp Pulse Resp B/P (MAP) Pulse Ox O2 Delivery O2 Flow Rate FiO2 01/09/25 16:00 100 Room Air* 0 21 01/09/25 15:00 84 18 152/85 01/09/25 12:00 98.1 Laboratory Tests 01/08/25 20:00 01/09/25 04:08 Medications Current Medications Sodium Chloride 1,000 ml @ 125 mls/hr ONCE ONCE IV Last administered on 01/05/25at 00:13; Start 01/04/25 at 23:00; Stop 01/05/25 at 06:59; Status DC Aspirin 81 mg ONCE ONCE PO Last administered on 01/05/25at 00:14; Start 01/04/25 at 23:00; Stop 01/04/25 at 23:01; Status DC Ondansetron HCl 4 mg ONCE ONCE IVP Last administered on 01/05/25at 00:13; Start 01/04/25 at 23:00; Stop 01/04/25 at 23:01; Status DC Potassium Chloride 100 ml @ 50 mls/hr ONCE ONCE IV Last administered on 01/05/25at 00:13; Start 01/05/25 at 00:00; Stop 01/05/25 at 01:59; Status DC Potassium Chloride 100 ml @ 50 mls/hr ONCE ONCE IV Last administered on 01/05/25at 03:12; Start 01/05/25 at 00:00; Stop 01/05/25 at 01:59; Status DC Thiamine HCl 100 mg ONCE ONCE IVP Last administered on 01/05/25at 01:01; Start 01/05/25 at 00:00; Stop 01/05/25 at 00:01; Status DC Acetaminophen 500 mg STK-MED ONCE .ROUTE; Start 01/05/25 at 00:28; Stop 01/05/25 at 00:28; Status DC Cefepime HCl 1 gm ONCE ONCE IVPB Last administered on 01/05/25at 01:01; Start 01/05/25 at 01:00; Stop 01/05/25 at 01:02; Status DC Vancomycin HCl 750 mg ONCE ONCE IVPB Last administered on 01/05/25at 02:12; Start 01/05/25 at 01:00; Stop 01/05/25 at 01:02; Status DC Sodium Chloride 250 ml ONCE ONCE IVPB Last administered on 01/05/25at 02:12; Start 01/05/25 at 01:00; Stop 01/05/25 at 01:02; Status DC Acetaminophen 1,000 mg ONCE ONCE PO Last administered on 01/05/25at 00:30; Start 01/05/25 at 01:00; Stop 01/05/25 at 01:02; Status DC Aspirin 81 mg DAILY PO; Start 01/05/25 at 09:00; Stop 01/05/25 at 09:53; Status DC Nitroglycerin 0.4 mg AD PRN SL; Start 01/05/25 at 02:30; Stop 02/04/25 at 02:29 Aspirin 162 mg ONCE ONCE PO Last administered on 01/05/25at 03:06; Start 01/05/25 at 02:30; Stop 01/05/25 at 02:31; Status DC Insulin Human Regular INSULIN SLIDING SCAL... ACHS SQ Last administered on 01/05/25at 07:59; Start 01/05/25 at 07:30; Stop 01/05/25 at 09:57; Status DC Lactated Ringer's 3,429 ml @ 1,143 mls/hr ONCE ONCE IV Last administered on 01/05/25at 03:12; Start 01/05/25 at 02:30; Stop 01/05/25 at 05:29; Status DC Piperacillin Sod/ Tazobactam Sod 3.375 gm Q12H IV Last administered on 01/07/25at 02:45; Start 01/05/25 at 02:30; Stop 01/07/25 at 13:24; Status DC Potassium Chloride 100 ml @ 100 mls/hr AD PRN IV; Start 01/05/25 at 02:30; Stop 01/07/25 at 10:12; Status DC Potassium Chloride 10 meq AD PRN PO Last administered on 01/06/25at 17:16; Start 01/05/25 at 02:30; Stop 01/07/25 at 10:12; Status DC Potassium Chloride 10 meq AD PRN PO Last administered on 01/05/25at 22:15; Start 01/05/25 at 02:30; Stop 01/06/25 at 09:12; Status DC Acetaminophen 650 mg Q6H PRN PO Last administered on 01/08/25at 04:21; Start 01/05/25 at 02:30; Stop 02/04/25 at 02:29 Pantoprazole Sodium 40 mg DAILY PO Last administered on 01/09/25at 08:17; Start 01/05/25 at 09:00; Stop 02/04/25 at 08:59 Ondansetron HCl 4 mg Q6H PRN IV; Start 01/05/25 at 02:30; Stop 02/04/25 at 02:29 Morphine Sulfate 2 mg Q4H PRN IVP; Start 01/05/25 at 02:30; Stop 01/12/25 at 02:29 Hydralazine HCl 10 mg Q6H PRN IV; Start 01/05/25 at 02:30; Stop 01/05/25 at 09:53; Status DC Benzocaine 1 each Q4H PRN MM; Start 01/05/25 at 02:30; Stop 02/04/25 at 02:29 Magnesium Sulfate 50 ml @ 0 mls/hr PROTOCOL PRN IV Last administered on 01/05/25at 03:24; Start 01/05/25 at 02:30; Stop 02/04/25 at 02:29 Lactated Ringer's 1,000 ml @ 100 mls/hr Q10H IV Last administered on 01/05/25at 02:30; Start 01/05/25 at 02:30; Stop 01/05/25 at 09:51; Status DC Chlordiazepoxide HCl 25 mg Q8H PO Last administered on 01/09/25at 11:36; Start 01/05/25 at 02:30; Stop 01/12/25 at 02:29 Lorazepam 1 mg Q4H PRN IVP; Start 01/05/25 at 02:30; Stop 01/12/25 at 02:29 Pharmacy Profile Note 1 each PROTOCOL PRN MISC; Start 01/05/25 at 02:30; Stop 01/12/25 at 02:29 Nicotine 21 mg DAILY TD Last administered on 01/09/25at 08:17; Start 01/05/25 at 09:00; Stop 02/04/25 at 08:59 Sodium Chloride 1,000 ml @ 50 mls/hr Q20H IV Last administered on 01/09/25at 05:56; Start 01/05/25 at 10:00; Stop 02/04/25 at 09:59 Potassium Phosphate 250 ml @ 42 mls/hr PROTOCOL PRN IV; Start 01/05/25 at 10:00; Stop 02/04/25 at 09:59 Hydralazine HCl 5 mg Q6H PRN IV Last administered on 01/09/25at 01:21; Start 01/05/25 at 14:30; Stop 02/04/25 at 14:29 Doxycycline Hyclate 250 ml @ 125 mls/hr Q12H IV Last administered on 01/06/25at 09:30; Start 01/05/25 at 10:00; Stop 01/06/25 at 21:05; Status DC Potassium Chloride 40 meq ONCE ONCE PO Last administered on 01/05/25at 10:25; Start 01/05/25 at 10:00; Stop 01/05/25 at 10:01; Status DC Potassium Chloride 100 ml @ 50 mls/hr ONCE ONCE IV Last administered on 01/05/25at 10:25; Start 01/05/25 at 10:00; Stop 01/05/25 at 11:59; Status DC Dextrose 50 ml AD PRN IV; Start 01/05/25 at 10:00; Stop 02/04/25 at 09:59 Glucagon 1 mg AD PRN IM; Start 01/05/25 at 10:00; Stop 02/04/25 at 09:59 Insulin Human Regular INSULIN SLIDING SCAL... ACHS SQ Last administered on 01/06/25at 11:50; Start 01/05/25 at 11:30; Stop 01/06/25 at 16:43; Status DC Dexamethasone Sodium Phosphate 10 mg ONCE ONCE IVP Last administered on 01/05/25at 17:27; Start 01/05/25 at 13:30; Stop 01/05/25 at 14:03; Status DC Insulin Glargine 20 units HS SQ; Start 01/06/25 at 21:00; Stop 01/06/25 at 21:05; Status DC Potassium Chloride 10 meq AD PRN PO Last administered on 01/08/25at 23:35; Start 01/06/25 at 09:30; Stop 02/04/25 at 02:29 Dexamethasone Sodium Phosphate 40 mg DAILY ONCE IV; Start 01/07/25 at 09:00; Stop 01/06/25 at 13:27; Status DC Dexamethasone Sodium Phosphate 40 mg/Sodium Chloride 50 ml @ 100 mls/hr DAILY IV Last administered on 01/08/25at 09:34; Start 01/06/25 at 14:00; Stop 01/08/25 at 12:16; Status DC Insulin Human Regular INSULIN SLIDING SCAL... ACHS SQ Last administered on 01/06/25at 17:17; Start 01/06/25 at 17:00; Stop 01/07/25 at 13:32; Status DC Insulin Human Regular 100 unit/ Sodium Chloride 100 ml @ 0 mls/hr AD PRN IV Last administered on 01/08/25at 20:31; Start 01/06/25 at 19:30; Stop 02/05/25 at 19:29 Insulin Glargine 20 units HS SQ Last administered on 01/06/25at 21:33; Start 01/06/25 at 21:30; Stop 01/07/25 at 10:24; Status DC Doxycycline Hyclate 250 ml @ 125 mls/hr Q12H IV Last administered on 01/09/25at 08:18; Start 01/06/25 at 21:30; Stop 01/16/25 at 21:29 Chlordiazepoxide HCl 25 mg STK-MED ONCE .ROUTE; Start 01/07/25 at 02:35; Stop 01/07/25 at 02:41; Status DC Piperacillin Sod/ Tazobactam Sod 50 ml @ As Directed STK-MED ONCE .ROUTE; Start 01/07/25 at 02:39; Stop 01/07/25 at 02:41; Status DC Potassium Chloride 0 ml @ As Directed STK-MED ONCE IV; Start 01/07/25 at 07:28; Stop 01/07/25 at 07:31; Status DC Potassium Chloride 40 meq ONCE ONCE PO Last administered on 01/07/25at 09:44; Start 01/07/25 at 10:00; Stop 01/07/25 at 10:01; Status DC Potassium Chloride 100 ml @ 100 mls/hr AD PRN IV Last administered on 01/09/25at 06:26; Start 01/07/25 at 10:30; Stop 02/06/25 at 10:29 Potassium Chloride 10 meq AD PRN PO Last administered on 01/08/25at 15:28; Start 01/07/25 at 10:30; Stop 02/06/25 at 10:29 Potassium Chloride 10 meq AD PRN PO; Start 01/07/25 at 10:30; Stop 01/07/25 at 10:12; Status DC Insulin Glargine 15 units Q12H SQ Last administered on 01/09/25at 13:10; Start 01/07/25 at 21:30; Stop 02/05/25 at 21:29 Insulin Glargine 10 units ONCE ONCE SQ Last administered on 01/07/25at 10:40; Start 01/07/25 at 10:30; Stop 01/07/25 at 10:31; Status DC Thiamine HCl 300 mg DAILY ONCE IVP Last administered on 01/07/25at 10:39; Start 01/07/25 at 10:30; Stop 01/07/25 at 10:31; Status DC Multivitamins Therapeutic 1 tab DAILY PO Last administered on 01/09/25at 08:17; Start 01/07/25 at 10:30; Stop 02/06/25 at 10:29 Folic Acid 1 mg DAILY PO Last administered on 01/09/25at 08:17; Start 01/07/25 at 10:30; Stop 02/06/25 at 10:29 Triamcinolone Acetonide 1 APPLY TP BID BID TP Last administered on 01/09/25at 09:00; Start 01/07/25 at 11:00; Stop 02/06/25 at 10:59 Vancomycin HCl 1 each AD IV; Start 01/07/25 at 12:30; Stop 01/07/25 at 12:40; Status DC Cefazolin Sodium 2 gm Q12H IVPB Last administered on 01/09/25at 14:10; Start 01/07/25 at 13:30; Stop 01/17/25 at 13:29 Furosemide 20 mg Q12H IV Last administered on 01/09/25at 15:59; Start 01/07/25 at 16:00; Stop 01/20/25 at 16:00 Calcium Gluconate 1 gm/Sodium Chloride 100 ml @ 0 mls/hr AD PRN IV Last administered on 01/08/25at 23:32; Start 01/08/25 at 02:30; Stop 02/07/25 at 02:29 Dexamethasone Sodium Phosphate 20 mg/Sodium Chloride 52 ml @ 100 mls/hr DAILY IV Last administered on 01/09/25at 09:22; Start 01/09/25 at 09:00; Stop 02/08/25 at 08:59 LEOPOLDO AGUILAR MD Jan 09, 2025 16:48
--- NOTE | 2025-01-09 18:56 | PN ---
INFECTIOUS DISEASE PROGRESS NOTE Date of Service: Jan 09, 2025 SUBJECTIVE: This is a 44-year-old male patient who was admitted for chief complaint of weakness and status post fall at home. A Urine culture collected on admission came back positive for Klebsiella pneumoniae and the blood cultures results came back positive for Methicillin sensitive Staphylococcus aureus 2 of 2 sets and the reason for this consult. A 2D echo done on admission showed Aortic valve endocarditis and cardiology planning a DRAKE once antiplatelets normalized. Patient was seen and examined at bedside in room 217. Patient is awake, alert and oriented x3. Preliminary repeat blood cultures growing Staphylococcus aureus. Per nursing report DRAKE is scheduled for tomorrow. Slight improvement on the platelets level to 71 this morning. No fever, temperature is 98.1 and the WBC is 13.6. Continues on cefazolin and doxycycline IV. Will continue to follow patient's care. PHYSICAL EXAM EYES: Anicteric. Pupils equal and reactive. HENT: No oral thrush seen, moist Oral mucosa. NECK: Supple, no JVD or thyromegaly. LUNGS: Good air entry. No rales, no rhonchi. CARDIOVASCULAR: S1, S2 regular. No murmur heard. ABDOMEN: Obese but Soft. CENTRAL NERVOUS SYSTEM: Awake, alert, oriented x 3. SKIN: No rashes, no swelling. LYMPHATICS: No peripheral lymphadenopathy MUSCULOSKELETAL: No joint swelling, erythema or tenderness. EXTREMITIES: No cyanosis or clubbing. Edematous. BACK: No deformity, no pressure ulcer. GENITOURINARY: No dysuria or hematuria. Vital Sign (Last 12 Hours) 01/09/25 01/09/25 01/09/25 01/09/25 07:00 08:00 08:00 09:00 Temp 98.1 Pulse 68 77 69 Resp 13 14 20 B/P (MAP) 141/86 148/92 146/83 Pulse Ox 100 99 100 100 O2 Delivery Room Air Room Air Room Air* Room Air O2 Flow Rate 0 FiO2 21 01/09/25 01/09/25 01/09/25 01/09/25 10:00 11:00 12:00 12:00 Temp 98.1 Pulse 70 85 69 Resp 12 20 18 B/P (MAP) 133/75 144/88 154/95 Pulse Ox 100 100 100 100 O2 Delivery Room Air Room Air Room Air Room Air* O2 Flow Rate 0 FiO2 21 2/09/2301/09/25 01/09/25 01/09/25 13:00 14:00 15:00 16:00 Pulse 75 92 84 Resp 18 21 18 B/P (MAP) 152/86 160/95 152/85 Pulse Ox 100 100 100 100 O2 Delivery Room Air Room Air Room Air Room Air* O2 Flow Rate 0 FiO2 21 01/09/25 01/09/25 01/09/25 16:00 17:00 18:00 Temp 98.8 Pulse 86 87 91 Resp 20 18 21 B/P (MAP) 144/89 146/87 160/98 Pulse Ox 100 100 100 O2 Delivery Room Air Room Air Room Air Intake & Output (last 24hrs) 01/08/25 01/08/25 01/09/25 15:00 23:00 07:00 Intake Total 1448.0 ml 1894.0 ml 812.5 ml Output Total 750 ml 650 ml Balance 698.0 ml 1894.0 ml 162.5 ml LABS: Laboratory: Test 01/09/25 18:12 01/09/25 15:20 01/09/25 04:08 01/08/25 04:49 Range/Units Whole Blood Glucose 241 H 70-110 MG/DL HIV (1&2) Antibody Non-Reactive Negative HIV P24 Antigen, Qualitative Non-Reactive Negative White Blood Count 13.6 H 4.8-10.8 K/uL Red Blood Count 4.72 4.50-6.20 MIL/uL Hemoglobin 15.1 14.0-18.0 g/dL Hematocrit 42.3 42-54 % Mean Corpuscular Volume 89.6 79-99 fL Mean Corpuscular Hemoglobin 32.0 27.0-33.0 pg Mean Corpuscular Hemoglobin Concent 35.7 32.0-36.0 g/dL Red Cell Distribution Width 13.7 11.0-15.5 % Platelet Count 71 L 130-400 K/uL Mean Platelet Volume 12.6 H 7.5-10.5 fL Immature Granulocyte % (Auto) 1.6 H 0-1 % Neutrophils (%) (Auto) 84.8 H 40.0-77.0 % Lymphocytes (%) (Auto) 5.5 L 21.0-51.0 % Monocytes (%) (Auto) 7.9 3.0-13.0 % Eosinophils (%) (Auto) 0.1 0.0-8.0 % Basophils (%) (Auto) 0.1 0.0-5.0 % Neutrophils # (Auto) 11.5 H 1.8-7.7 K/uL Lymphocytes # (Auto) 0.8 L 1.0-4.8 K/uL Monocytes # (Auto) 1.1 H 0.1-1.0 K/uL Eosinophils # (Auto) 0.01 0.00-0.70 K/uL Basophils # (Auto) 0.02 0.00-0.20 K/uL Absolute Immature Granulocyte (auto 0.22 0-1 K/uL Nucleated Red Blood Cells 0.0 0.0-0.19 % Sodium Level 140 136-145 mmol/L Potassium Level 3.8 3.5-5.1 mmol/L Chloride Level 111 101-111 mmol/L Carbon Dioxide Level 15 L 21-32 mmol/L Blood Urea Nitrogen 90 *H 7-18 mg/dL Creatinine 2.3 H 0.5-1.3 mg/dL Glomerular Filtration Rate Calc 35 >90 mL/min Random Glucose 112 H 70-105 mg/dL Total Calcium 7.4 L 8.5-10.1 mg/dL Total Bilirubin 1.6 H 0.2-1.0 mg/dL Aspartate Amino Transf (AST/SGOT) 36 10-37 U/L Alanine Aminotransferase (ALT/SGPT) 29 12-78 U/L Alkaline Phosphatase 97 50-136 U/L Total Protein 6.2 6.0-8.3 g/dL Albumin 1.9 L 3.5-5.0 g/dL Phosphorus Level 3.9 2.5-4.9 mg/dL Magnesium Level 2.50 H 1.80-2.40 mg/dL DIAGNOSTICS / RADIOLOGY: PATIENT: ADAM MOE III ACCT: [id number] LOC: [facility] U: [id number] AGE/SX: 44/M ROOM: 217 RE01/04/[address]: ARVIND NOLAND MD : 1980 BED: 1 DIS: STATUS: ADM IN TLOC: SPEC: [id number] LEVAR: 01/05/25 STATUS: DINA REQ: [id number] RECD: 01/05/[address]: NEW REAVES MD SOURCE: BLOOD ENTR: 01/05/[address]: SELF,REFERRAL [facility]: BLOOD ORDERED: AERO ID & SENS Procedure Result Jose Date-Time AEROBIC ID & SENSITIVITIES Final 01/07/25-715 [facility] COLONY DESCRIPTION: DAY 1: GRAM POSITIVE COCCI IN CLUSTERS AEROBIC BOTTLE IDENTIFICATION AND SENSITIVITY TO FOLLOW STAPHYLOCOCCUS AUREUS S. AUREUS M.I.C. RX --------- ---- ERYTHROMYCIN <=0.5 S GENTAMICIN <=4 S LEVOFLOXACIN <=1 S VANCOMYCIN 1 S OXACILLIN SYLVIA <=0.25 S RIFAMPIN <=1 S PENICILLIN <=0.03 S TRIMETHOPRIM/SUFLAMETHOXAZOLE <=0.5/9.5 S PATIENT: ADAM MOE III ACCT: [id number] LOC: [facility] U: [id number] AGE/SX: 44/M ROOM: [facility] RE01/04/[address]: ARVIND NOLAND MD : 1980 BED: 1 DIS: STATUS: ADM IN TLOC: SPEC: [id number] LEVAR: 01/04/25 STATUS: COMP REQ: [id number] RECD: 01/06/[address] [facility] [address]: MAHOGANY CARBAJAL MD SOURCE: [facility] [place] ENTR: 01/06/[address] [facility] [address]: ANGELICA BOYER MD SPDC: [facility] NOLAND,ARVIND Suero MD SELF,REFERRAL ORDERED: AERO ID & SENS Procedure Result Jose Date-Time AEROBIC ID & SENSITIVITIES Final 01/07/25 [facility] COLONY DESCRIPTION: DAY 1: COLONY COUNT: >100,000 CFU/ML GRAM NEGATIVE RODS IDENTIFICATION AND SENSITIVITY TO FOLLOW KLEBSIELLA PNEUMONIAE K PNEUMO M.I.C. RX --------- ---- AZTREONAM <=4 S CEFAZOLIN <=2 S CEFTAZIDIME/AVIBACTAM 16 R GENTAMICIN <=2 S LEVOFLOXACIN <=0.5 S NITROFURANTOIN <=32 S MEROPENEM <=1 S PIPERACILLIN/TAZOBACTAM <=8 S TRIMETHOPRIM/SUFLAMETHOXAZOLE <=2/38 S ASSESSMENT: Methicillin-susceptible Staphylococcus aureus bacteremia. Urinary tract infection with Klebsiella pneumoniae. Leukocytosis. Aortic valve endocarditis. Thrombocytopenia requiring platelet transfusion. Acute on chronic renal failure. Cocaine abuse. Streptococcus viral infection. Debility. ETOH dependence. Uncontrolled diabetes mellitus. PLAN: Continue cefazolin IV. Continue doxycycline IV. Continue GI prophylaxis. Continue CIWA protocol. Brake Lining Finisher following patient. Continue critical care support. Continue monitoring glucose levels. We will monitor electrolytes. DRAKE is scheduled for tomorrow. This case was reviewed and discussed with my supervising physician and the above assessment and plan was formulated and agreed upon. ATTESTATION BY PHYSICIAN I have seen and examined the patient. I reviewed the documentation, medical decision making, and treatment plan as noted by the mid-level provider above. I agree with the findings and plan of care. JANUARY CARLOSN MD, MIRTA L [facility] Jan 09, 2025 18:56
[2025-01-09 21:21] LABS: CREATININE 2.2 mg/dL (0.5-1.3); POTASSIUM 4.3 mmol/L (3.5-5.1)
[2025-01-10] VITALS (30 sets, daily range): BP systolic 117–190; BP diastolic 75–109; PULSE 68–96; RESP 14–35; TEMP 98.1–98.5; O2SAT 98–100
[2025-01-10] MEDS: LACTATED RINGERS 1000ML 1,000 ML IV SCH (01:35)
[2025-01-10 02:46] LABS: BASOPHILS # (AUTO) 0.01 K/uL (0.00-0.20); BASOPHILS % (AUTO) 0.1 % (0.0-5.0); EOSINOPHILS # (AUTO) 0.02 K/uL (0.00-0.70); EOSINOPHILS % (AUTO) 0.2 % (0.0-8.0); HEMATOCRIT 35.4 % (42-54); IMMATURE GRANULOCYTE ABSOLUTE 0.22 K/uL (0-1); LYMPHOCYTES # (AUTO) 0.6 K/uL (1.0-4.8); LYMPHOCYTES % (AUTO) 4.9 % (21.0-51.0); MEAN CORPUSCULAR HEMOGLOBIN 32.9 pg (27.0-33.0); MEAN CORPUSCULAR VOLUME 93.9 fL (79-99); MONOCYTES # (AUTO) 0.9 K/uL (0.1-1.0); MONOCYTES % (AUTO) 7.9 % (3.0-13.0); PLATELET COUNT (AUTO) 66 K/uL (130-400); RED BLOOD CELL COUNT(AUTO) 3.77 MIL/uL (4.50-6.20); RED CELL DISTRIBUTION WIDTH 14.2 % (11.0-15.5); WHITE BLOOD COUNT (AUTO) 11.7 K/uL (4.8-10.8)
[2025-01-10 02:57] LABS: ALBUMIN 1.4 g/dL (3.5-5.0); BILIRUBIN,TOTAL 1.1 mg/dL (0.2-1.0); CREATININE 1.4 mg/dL (0.5-1.3); POTASSIUM 3.9 mmol/L (3.5-5.1); TOTAL PROTEIN, SERUM 4.6 g/dL (6.0-8.3)
[2025-01-10 02:59] LABS: INR 1.3 (0.85-1.15); PROTHROMBIN TIME 14.2 SEC (9.6-11.6)
--- NOTE | 2025-01-10 07:35 | PN ---
[facility] PROGRESS NOTE Date of Service: Jan 10, 2025 Time of Service: 07:30 SUBJECTIVE: [ ] The patient has been seen and examined at bedside, no acute events overnight, the patient is comfortable, cooperating well, alert oriented x3, he is on a CIWA protocol, not combative. BP 123/70, rest of vital signs unremarkable. Patient received transfusion of 1 unit of platelet, platelet count improved to 27, per medical records specialist, likely due to splenomegaly. Echocardiogram reviewed, hypodense echogenic mobile vegetation to right coronary cusp leaflet, per cardiology once platelet count is greater than 50 1000 we will proceed with a a DRAKE. The pa tient also with a elevated blood sugar, continue insulin sliding scale, add insulin glargine 20 units subcutaneously at bedtime. Continue the patient on broad-spectrum IV antibiotics, continue to trend WBC in a.m.. 01/07 patient is seen and examined at bedside, case discussed with the RN, patient upgraded last night to the ICU to start insulin drip as blood glucose per sistently greater than 400. Patient started on dexamethasone IV by medical records specialist do to ITP. Platelet count slightly better today at 41. Upon my initial encounter with the patient admitted that he drinks more than 18 beers per day. He was started on CIWA protocol, however has remained hemodynamically stable, comfortable in bed, no signs of withdrawal, cooperating fine. Not agitated, not combative. Toxicology screen positive for cocaine. Sodium level slowly improvi ng, today 132. Serology positive for influenza type A. The patient with significant proteinuria consistent with diabetic nephropathy, creatinine slowly trending down, no need for renal replacement therapy per plumbing service technician. Patient with blood culture positive for Staphylococcus aureus, with urine culture positive for Klebsiella pneumoniae. We will add vancomycin IV pharmacy to dose. We will request Infectious Disease consultation. Echocardiogram reviewed, hypodense echogenic mobile vegetation to right coronary cusp leaflet, per cardiology once platelet count is greater than 50 1000 we will proceed with a a DRAKE. CT abdomen with gallstones in the gallbladder. HIDA scan pending 01/08 patient seen at bedside, no acute events overnight. He continues on insulin drip with an anion gap of 14, we will continue until the gap is closed. P latelets 54, we will follow up with Cardiology on optimal timing for DRAKE. Continue with IV antibiotics, further care per critical Care. 2/10 patient seen at bedside, no acute events overnight. Anion gap is still open at 14, we will continue IV insulin. Platelets improved from 54 up to 71, CO2 decreased from 17 down to 15. Cardiology planning on DRAKE today, we will follow up postprocedure. Repeat blood cultures are positive for Gram-positive organisms which further supports underlying endocarditis. Continue with IV antibiotics, appreciate Infectious Disease recommendations. He has been afebrile, hemodynamically stable saturating well on room air. WBC increased from 12.8 up to 13.6, BUN decreased from 93 down to 90, creatinine decreased from 2.5 down to 2.3, remainder of his labs are relatively unremarkable. / Pt seen at bedside, no acute events overnight. Pt with anion gap of 14, CO2 still low at 16. Repeat lactic acid was ordered, elevated at 4.8, will bolus patient and continue with IV fluids. DRAKE was rescheduled to today, will follow up with results.WBC improved from 13.6 down to 11.7, Hgb decreased from 15.1 down to 12.4, platelets decreased from 71 down to 66, this substantial decrease in all cell lines suggests hemodilution, creatinine decreased from 2.2 down to 1.4, also likely falsely depressed. REVIEW OF SYSTEMS 12 point review of systems negative unless noted in HPI PHYSICAL EXAM GENERAL APPEARANCE: The patient is awake, alert, and oriented, in no acute cardiopulmonary distress. NEUROLOGICAL: Cranial nerves II-XII grossly intact. Motor is 5/5 in bilateral upper and lower extremities proximal to distal. No sensory deficits. HEENT: Face is symmetric. Pupils are equal and reactive. Extraocular movements are intact. NECK: Supple. No JVD. No thyromegaly. No submental, submandibular, pre- /postauricular, occipital or supraclavicular lymphadenopathy. CHEST: Normal chest expansion. No Telemetry. LUNGS: Absence of any rales, rhonchi or any wheezing. CARDIOVASCULAR: Regular. S1 and S2 normal. No appreciable rubs, murmurs or gallops. ABDOMEN: Soft, nontender, and nondistended. There is no rebound, voluntary guarding, or rigidity. : Deferred. No Ortega. EXTREMITIES: Non-edematous and not cyanotic. No clubbing. Good capillary refill. SKIN: No skin breakdown. Vital Signs (last 8hr) Date Time Temp Pulse Resp B/P (MAP) Pulse Ox O2 Delivery O2 Flow Rate FiO2 01/10/25 06:00 69 20 162/95 100 Room Air 01/10/25 05:00 70 22 139/81 100 Room Air 01/10/25 04:00 100 Room Air* 0 21 01/10/25 04:00 72 23 148/83 100 Room Air 01/10/25 03:00 68 22 164/98 100 Room Air 01/10/25 02:00 73 20 169/92 100 Room Air 01/10/25 01:00 69 22 157/98 100 Room Air 01/10/25 00:00 70 20 149/97 100 Room Air 01/10/25 00:00 100 Room Air* 0 21 LABS: Laboratory: Test 01/10/25 06:20 01/10/25 06:07 01/10/25 02:36 01/09/25 20:35 Range/Units Whole Blood Glucose 96 70-110 MG/DL Lactic Acid Level 4.8 H 0.8-2.5 mmol/L White Blood Count 11.7 H 4.8-10.8 K/uL Red Blood Count 3.77 #L 4.50-6.20 MIL/uL Hemoglobin 12.4 L 14.0-18.0 g/dL Hematocrit 35.4 L 42-54 % Mean Corpuscular Volume 93.9 79-99 fL Mean Corpuscular Hemoglobin 32.9 27.0-33.0 pg Mean Corpuscular Hemoglobin Concent 35.0 32.0-36.0 g/dL Red Cell Distribution Width 14.2 11.0-15.5 % Platelet Count 66 L 130-400 K/uL Mean Platelet Volume 11.5 H 7.5-10.5 fL Immature Granulocyte % (Auto) 1.9 H 0-1 % Neutrophils (%) (Auto) 85.0 H 40.0-77.0 % Lymphocytes (%) (Auto) 4.9 L 21.0-51.0 % Monocytes (%) (Auto) 7.9 3.0-13.0 % Eosinophils (%) (Auto) 0.2 0.0-8.0 % Basophils (%) (Auto) 0.1 0.0-5.0 % Neutrophils # (Auto) 10.0 H 1.8-7.7 K/uL Lymphocytes # (Auto) 0.6 L 1.0-4.8 K/uL Monocytes # (Auto) 0.9 0.1-1.0 K/uL Eosinophils # (Auto) 0.02 0.00-0.70 K/uL Basophils # (Auto) 0.01 0.00-0.20 K/uL Absolute Immature Granulocyte (auto 0.22 0-1 K/uL Nucleated Red Blood Cells 0.0 0.0-0.19 % Prothrombin Time 14.2 H 9.6-11.6 SEC Prothromb Time International Ratio 1.30 H 0.85-1.15 Activated Partial Thromboplast Time 31.0 26.3-35.5 SEC Sodium Level 139 136-145 mmol/L Potassium Level 3.9 3.5-5.1 mmol/L Chloride Level 109 101-111 mmol/L Carbon Dioxide Level 16 L 21-32 mmol/L Blood Urea Nitrogen 59 H 7-18 mg/dL Creatinine 1.4 H 0.5-1.3 mg/dL Glomerular Filtration Rate Calc 64 >90 mL/min Random Glucose 84 70-105 mg/dL Total Calcium 6.6 L 8.5-10.1 mg/dL Total Bilirubin 1.1 #H 0.2-1.0 mg/dL Aspartate Amino Transf (AST/SGOT) 25 10-37 U/L Alanine Aminotransferase (ALT/SGPT) 23 # 12-78 U/L Alkaline Phosphatase 77 50-136 U/L Total Protein 4.6 #L 6.0-8.3 g/dL Albumin 1.4 #L 3.5-5.0 g/dL Magnesium Level 2.00 1.80-2.40 mg/dL Test 01/09/25 15:20 Range/Units HIV (1&2) Antibody Non-Reactive Negative HIV P24 Antigen, Qualitative Non-Reactive Negative Current Medications Medications (Trade) Dose Ordered Sig/Asya Route PRN Reason Start Time Stop Time Status Last Admin Dose Admin Acetaminophen (TYLenol 325MG TAB) 650 mg Q6H PRN PO TEMPERATURE GREATER THAN 101.5 01/05/25 02:30 02/04/25 02:29 01/08/25 04:21 650 MG Aspirin (Aspirin 81mg Chew Tab) 81 mg DAILY PO 01/05/25 09:00 01/05/25 09:53 DC Benzocaine (Cepacol Sore Throat Lozenge) 1 each Q4H PRN MM SORE THROAT 01/05/25 02:30 02/04/25 02:29 Calcium Gluconate 1 gm/Sodium Chloride 100 ml @ 0 mls/hr AD PRN IV Serum Calcium Correction 01/08/25 02:30 02/07/25 02:29 01/08/25 23:32 90 MLS/HR Cefazolin Sodium (Ancef) 2 gm Q12H IVPB 01/07/25 13:30 01/17/25 13:29 01/10/25 01:20 2 GM Chlordiazepoxide HCl (LIBrium 25 MG CAP) 25 mg Q8H PO 01/05/25 02:30 01/12/25 02:29 01/10/25 03:33 25 MG Dexamethasone Sodium Phosphate 20 mg/Sodium Chloride 52 ml @ 100 mls/hr DAILY IV 01/09/25 09:00 02/08/25 08:59 01/09/25 09:22 100 MLS/HR Dexamethasone Sodium Phosphate 40 mg/Sodium Chloride 50 ml @ 100 mls/hr DAILY IV 01/06/25 14:00 01/08/25 12:16 DC 01/08/25 09:34 100 MLS/HR Dextrose (D50w) 50 ml AD PRN IV HYPOGLYCEMIA PROTOCOL 01/05/25 10:00 02/04/25 09:59 Doxycycline Hyclate 250 ml @ 125 mls/hr Q12H IV 01/05/25 10:00 01/06/25 21:05 DC 01/06/25 09:30 125 MLS/HR Doxycycline Hyclate 250 ml @ 125 mls/hr Q12H IV 01/06/25 21:30 01/16/25 21:29 01/09/25 20:42 125 MLS/HR Folic Acid (FOLic ACID 1 MG TABLET) 1 mg DAILY PO 01/07/25 10:30 02/06/25 10:29 01/09/25 08:17 1 MG Furosemide (LASix 20MG VIAL) 20 mg Q12H IV 01/07/25 16:00 01/20/25 16:00 01/10/25 03:34 20 MG Glucagon (Glucagon 1mg Kit) 1 mg AD PRN IM HYPOGLYCEMIA PROTOCOL 01/05/25 10:00 02/04/25 09:59 Hydralazine HCl (APRESOLine 20MG INJ) 5 mg Q6H PRN IV For:SBP above 160;DBP above 90 01/05/25 14:30 02/04/25 14:29 01/10/25 03:36 5 MG Hydralazine HCl (APRESOLine 20MG INJ) 10 mg Q6H PRN IV For:SBP above 160;DBP above 90 01/05/25 02:30 01/05/25 09:53 DC Insulin Glargine (LANtus 100 UNITS/ML 10 ML VIAL) 15 units Q12H SQ 01/07/25 21:30 01/09/25 23:18 DC 01/09/25 13:10 15 UNITS Insulin Glargine (LANtus 100 UNITS/ML 10 ML VIAL) 20 units HS SQ 01/06/25 21:00 01/06/25 21:05 DC Insulin Glargine (LANtus 100 UNITS/ML 10 ML VIAL) 20 units HS SQ 01/06/25 21:30 01/07/25 10:24 DC 01/06/25 21:33 20 UNITS Insulin Glargine (LANtus 100 UNITS/ML 10 ML VIAL) 20 units Q12H SQ 01/10/25 09:30 02/09/25 09:29 Insulin Human Regular (humuLIN R 100 UNIT/ML 3ML) INSULIN SLIDING SCAL... ACHS SQ 01/05/25 07:30 01/05/25 09:57 DC 01/05/25 07:59 16 UNIT Insulin Human Regular (humuLIN R 100 UNIT/ML 3ML) INSULIN SLIDING SCAL... ACHS SQ 01/05/25 11:30 01/06/25 16:43 DC 01/06/25 11:50 8 UNIT Insulin Human Regular (humuLIN R 100 UNIT/ML 3ML) INSULIN SLIDING SCAL... ACHS SQ 01/06/25 17:00 01/07/25 13:32 DC 01/06/25 17:17 16 UNIT Insulin Human Regular 100 unit/ Sodium Chloride 100 ml @ 0 mls/hr AD PRN IV HYPERGLYCEMIA PROTOCOL 01/06/25 19:30 01/10/25 06:00 DC 01/09/25 19:10 16 MLS/HR Lactated Ringer's 1,000 ml @ 100 mls/hr Q10H IV 01/05/25 02:30 01/05/25 09:51 DC 01/05/25 02:30 100 MLS/HR Lactated Ringer's 1,000 ml @ 125 mls/hr Q8H IV 01/10/25 01:30 02/09/25 01:29 01/10/25 01:35 125 MLS/HR Lorazepam (AtiVAN) 1 mg Q4H PRN IVP ALCOHOL WITHDRAWAL PROTOCOL 01/05/25 02:30 01/12/25 02:29 Magnesium Sulfate 50 ml @ 0 mls/hr PROTOCOL PRN IV h 01/05/25 02:30 02/04/25 02:29 01/05/25 03:24 25 MLS/HR Morphine Sulfate (morPHINE 2MG SYG) 2 mg Q4H PRN IVP SEVERE PAIN (7-10) 01/05/25 02:30 01/12/25 02:29 Multivitamins Therapeutic (Multivitamin Tablet) 1 tab DAILY PO 01/07/25 10:30 02/06/25 10:29 01/09/25 08:17 1 TAB Nicotine (Nicoderm) 21 mg DAILY TD 01/05/25 09:00 02/04/25 08:59 01/09/25 08:17 21 MG Nitroglycerin (Nitrostat) 0.4 mg AD PRN SL CHEST PAIN 01/05/25 02:30 02/04/25 02:29 Ondansetron HCl (zoFRAN 4MG INJ) 4 mg Q6H PRN IV NAUSEA/VOMITING 01/05/25 02:30 02/04/25 02:29 Pantoprazole Sodium (PROTonix 40MG TAB) 40 mg DAILY PO 01/05/25 09:00 02/04/25 08:59 01/09/25 08:17 40 MG Pharmacy Profile Note (Pharmacy Communication) 1 each PROTOCOL PRN MISC ETOH Withdrawal Score changes 01/05/25 02:30 01/12/25 02:29 Piperacillin Sod/ Tazobactam Sod (Zosyn 3.375gm+NS 50ml) 3.375 gm Q12H IV 01/05/25 02:30 01/07/25 13:24 DC 01/07/25 02:45 3.375 GM Potassium Phosphate 250 ml @ 42 mls/hr PROTOCOL PRN IV PROTOCOL 01/05/25 10:00 02/04/25 09:59 Potassium Chloride 100 ml @ 100 mls/hr AD PRN IV POTASSIUM PROTOCOL 01/05/25 02:30 01/07/25 10:12 DC Potassium Chloride 100 ml @ 100 mls/hr AD PRN IV POTASSIUM PROTOCOL 01/07/25 10:30 02/06/25 10:29 01/09/25 06:26 100 MLS/HR Potassium Chloride (K-Dur 10meq Sr Tab) 10 meq AD PRN PO POTASSIUM PROTOCOL 01/06/25 09:30 02/04/25 02:29 01/08/25 23:35 10 MEQ Potassium Chloride (K-Dur/Klor-Con 20meq) 10 meq AD PRN PO POTASSIUM PROTOCOL 01/05/25 02:30 01/06/25 09:12 DC 01/05/25 22:15 10 MEQ Potassium Chloride (K-Dur/Klor-Con 20meq) 10 meq AD PRN PO POTASSIUM PROTOCOL 01/07/25 10:30 01/07/25 10:12 DC Potassium Chloride (KCl 10% Elixir 20meq/15ml) 10 meq AD PRN PO POTASSIUM PROTOCOL 01/05/25 02:30 01/07/25 10:12 DC 01/06/25 17:16 10 MEQ Potassium Chloride (KCl 10% Elixir 20meq/15ml) 10 meq AD PRN PO POTASSIUM PROTOCOL 01/07/25 10:30 02/06/25 10:29 01/08/25 15:28 10 MEQ Sodium Chloride 1,000 ml @ 50 mls/hr Q20H IV 01/05/25 10:00 01/10/25 01:33 DC 01/09/25 05:56 50 MLS/HR Triamcinolone Acetonide (Kenalog/ Aristocort) 1 APPLY TP BID BID TP 01/07/25 11:00 02/06/25 10:59 01/09/25 20:42 1 APPL Vancomycin HCl (Vancomycin Protocol) 1 each AD IV 01/07/25 12:30 01/07/25 12:40 DC DIAGNOSTICS / RADIOLOGY: [ ] ASSESSMENT: Severe sepsis, POA Gram-positive bacteremia secondary to Staphylococcus aureus, POA Hypodense echogenic mobile vegetation to right coronary cusp leaflet on echocardiogram 01/05/2025 Urinary tract infection, secondary to Klebsiella pneumoniae, POA Strep pharyngitis, POA ITP, POA Leukocytosis, POA Hyperlactatemia, POA Acute kidney injury, POA Hypokalemia, POA Hyponatremia, POA Hypomagnesemia, POA POA New onset Uncontrolled Diabetes mellitius type2, POA Elevated troponin, POA Cocaine abuse, POA Alcohol abuse, POA Tobacco dependence, POA Significant proteinuria, POA Diabetic nephropathy, POA Gallstones, POA PLAN: -patient remains admitted to the ICU -continue the patient on insulin drip, transition to subcutaneous when anion gap 12 -continue close monitor the patient's blood glucose level, monitoring metabolic status. Endocrinology consultation requested, follow input and recommendation. -continue to monitor sodium level in a.m. -patient started on dexamethasone IV due to ITP per medical records specialist. Continue to follow input and recommendations. -renal function slightly improved today, patient evaluated by plumbing service technician, the patient with significant proteinuria on UA consistent with diabetic nephropathy. No acute need for any form of renal replacement therapy. -blood culture positive for Staphylococcus aureus. Urine culture positive for Klebsiella pneumoniae. Continue vancomycin IV pharmacy to dose. ID consultation requested, follow input and recommendation. -Echocardiogram with hypodense echogenic mobile vegetation to right coronary cusp leaflet, per cardiology once platelet count is greater than 50,000 will pr oceed with a a DRAKE. -cholelithiasis noted on CT abdomen, HIDA scan pending -continue to follow critical care input and recommendation Disposition: Pending DRAKE, antibiotics, transition to subcutaneous insulin, IV fluids, cardiology recommendations All questions answered time spent: > 35 min ARVIND NOLAND MD Jan 10, 2025 07:35
[2025-01-10 07:45] LABS: CREATININE 1.5 mg/dL (0.5-1.3); POTASSIUM 4.1 mmol/L (3.5-5.1)
--- NOTE | 2025-01-10 07:56 | PN ---
[facility] CARDIOLOGY PROGRESS NOTE Date Patient Seen: Jan 10, 2025 Time of Visit: 07:55 Interval History: [Platelets improved to 66k. DRAKE with GI in GI suite following EGD to rule out varices tomorrow or .] Physical Examination: GENERAL: [No acute distress.] HEAD: [Normal with no signs of head trauma.] EYES: [PERRLA, EOMI, conjunctiva and sclera normal.] ENT: [Hearing grossly intact, normal oropharynx.] NECK: [Supple without JVD. There is no tenderness, lymphadenopathy, or masses. No thyromegaly. Normal carotid upstrokes without bruits.] LUNGS: [Clear breath sounds bilaterally. There are right basilar rales one third of the way up the chest. No wheezes, or rhonchi.] HEART: [Normal rate and rhythm. Normal S1 and S2 without mumurs, gallop or rub.] VASC: [Peripheral pulses +2 bilaterally.] ABD: [Bowel sounds normal, soft, nontender, no masses, no organomegaly. No audible bruits.] : [Not examined] LYMPH: [No lymphadenopathy noted.] EXT: [No clubbing, cyanosis or edema.] SKIN: [No rashes or lesions noted.] NEURO: [Awake, alert, and oriented x3. No focal sensory or strength deficits noted.] Laboratory: [ ] Hematology Labs: Test 01/10/25 02:36 Range/Units White Blood Count 11.7 H 4.8-10.8 K/uL Red Blood Count 3.77 #L 4.50-6.20 MIL/uL Hemoglobin 12.4 L 14.0-18.0 g/dL Hematocrit 35.4 L 42-54 % Mean Corpuscular Volume 93.9 79-99 fL Mean Corpuscular Hemoglobin 32.9 27.0-33.0 pg Mean Corpuscular Hemoglobin Concent 35.0 32.0-36.0 g/dL Red Cell Distribution Width 14.2 11.0-15.5 % Platelet Count 66 L 130-400 K/uL Mean Platelet Volume 11.5 H 7.5-10.5 fL Immature Granulocyte % (Auto) 1.9 H 0-1 % Neutrophils (%) (Auto) 85.0 H 40.0-77.0 % Lymphocytes (%) (Auto) 4.9 L 21.0-51.0 % Monocytes (%) (Auto) 7.9 3.0-13.0 % Eosinophils (%) (Auto) 0.2 0.0-8.0 % Basophils (%) (Auto) 0.1 0.0-5.0 % Neutrophils # (Auto) 10.0 H 1.8-7.7 K/uL Lymphocytes # (Auto) 0.6 L 1.0-4.8 K/uL Monocytes # (Auto) 0.9 0.1-1.0 K/uL Eosinophils # (Auto) 0.02 0.00-0.70 K/uL Basophils # (Auto) 0.01 0.00-0.20 K/uL Absolute Immature Granulocyte (auto 0.22 0-1 K/uL Nucleated Red Blood Cells 0.0 0.0-0.19 % Chemistry Labs: Test 01/10/25 07:38 01/10/25 06:07 01/10/25 02:36 01/09/25 20:35 Range/Units Whole Blood Glucose 93 70-110 MG/DL Sodium Level 144 136-145 mmol/L Potassium Level 4.1 3.5-5.1 mmol/L Chloride Level 113 H 101-111 mmol/L Carbon Dioxide Level 15 L 21-32 mmol/L Blood Urea Nitrogen 60 H 7-18 mg/dL Creatinine 1.5 H 0.5-1.3 mg/dL Glomerular Filtration Rate Calc 59 >90 mL/min Random Glucose 89 70-105 mg/dL Lactic Acid Level 4.8 H 0.8-2.5 mmol/L Total Calcium 7.0 L 8.5-10.1 mg/dL Total Bilirubin 1.1 #H 0.2-1.0 mg/dL Aspartate Amino Transf (AST/SGOT) 25 10-37 U/L Alanine Aminotransferase (ALT/SGPT) 23 # 12-78 U/L Alkaline Phosphatase 77 50-136 U/L Total Protein 4.6 #L 6.0-8.3 g/dL Albumin 1.4 #L 3.5-5.0 g/dL Magnesium Level 2.00 1.80-2.40 mg/dL Coagulation Labs: Test 01/10/25 02:36 Range/Units Prothrombin Time 14.2 H 9.6-11.6 SEC Prothromb Time International Ratio 1.30 H 0.85-1.15 Activated Partial Thromboplast Time 31.0 26.3-35.5 SEC Diagnostics / Radiology: [Copy/Paste Echos/Imaging Report here] Impression and Plan: [ Aortic valve endocarditis with mobile vegetation in the right coronary cusp of the aortic valve by 2D echocardiogram 01/05/2025: Staph aureus in 2/2 sets of blood cultures 01/05/2025: -Infectious Disease has adjusted antibiotic therapy -DRAKE following EGD in GI suite after ruling out varices tomorrow or -a 2nd set of blood cultures were repeated 01/07/2025 Thrombocytopenia with platelet count falling to 21,000 on 01/05/2025, now improving to 66,000: -Dr. 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 Urinary tract infection with Klebsiella pneumoniae: -continue antibiotic therapy Evidence of cholecystitis on HIDA scan 01/07/2025: Acute renal failure-improving Acute diastolic congestive heart failure 01/07/2025 status post initiation of furosemide: -the patient had been receiving normal saline at 150 a.m. per hour and this has been reduced - continue present furosemide 20 IV q.12 hours Comorbidities: Hypertension Hyperlipidemia Coronary artery disease status post prior PTCA and stent procedure to the LAD 12/19/2015, presenting as a non ST segment elevation CT in the setting of hypertensive emergency Probable sleep apnea Alcohol and cocaine abuse Thank you for this consult. EVANS FLORES MD Jan 10, 2025 07:56
[2025-01-10] MEDS ORDERED: LIDOCAINE PF 100MG/5ML (2%) SYRINGE 5ML ONE (08:01)
[2025-01-10] MEDS ORDERED: proPOFol 10 MG/ML 20ML VIAL IV ONE (08:02)
[2025-01-10] MEDS ORDERED: GLYCOPYRROLATE 0.2 MG/ML 5 ML VIAL ONE (08:02)
[2025-01-10] MEDS ORDERED: ketaMINE 50MG/ML SYRINGE 50 MG/ML DISP.SYRIN ONE (08:03)
--- NOTE | 2025-01-10 09:19 | PN ---
FOLLOWUP PROGRESS NOTE SUBJECTIVE: A 44-year-old male initially presented to the hospital and found to have acute chronic renal dysfunction. The patient also with multiple electrolyte abnormalities including hyponatremia. The patient is with positive bacteremia. Workup is ongoing for possible endocarditis and the patient is being seen as a followup visit for all of the above. REVIEW OF SYSTEMS: GENERAL: He is feeling weak and tired. HEENT: No change in vision. No change in hearing. CARDIOVASCULAR: There is no current chest pain or palpitations. PULMONARY: There is no shortness of breath. GASTROINTESTINAL: He is tolerating ____ diet. MUSCULOSKELETAL: Complains of weakness. PHYSICAL EXAMINATION:. VITAL SIGNS: Blood pressure 139/81, pulse in the 70s. GENERAL: He is a chronically ill male, older than appearing. HEENT: Head is atraumatic. Pupils equal, roving to light. Oropharynx is without exudate. Nares clear. NECK: There is no JVP. There is no thyromegaly, no mass. CARDIOVASCULAR: Regular. There is no S3, S4 gallop. LUNGS: Coarse with equal thoracic movement. ABDOMEN: Soft, nondistended, nontender. EXTREMITIES: Reveal no clubbing, no cyanosis. NEUROLOGIC: He is awake. He is alert. LABORATORY DATA: Sodium 144, potassium is 4, chloride 113, bicarbonate 15, BUN 60, creatinine 1.5. Hemoglobin 12, hematocrit 35. IMPRESSION: * Acute on chronic renal failure. * Positive blood cultures. * Known drug abuse. * Hypertension. PLAN: The patient's creatinine continues to stabilize. The patient with evidence of diabetic nephropathy. The patient's workup is ongoing per Cardiology. We will repeat the patient's blood cultures for completeness. He remains on the antibiotics. We will follow closely. TID: [id number] RECEIPT: [id number]
[2025-01-10] MEDS: LACTATED RINGERS 1000ML IV ONE (09:20)
[2025-01-10] MEDS: INSULIN GLARgine 100 UNITS/ML 10 ML VIAL SQ SCH ×2 (09:20→22:19)
--- NOTE | 2025-01-10 09:59 | CONS ---
GASTROENTEROLOGY CONSULTATION NOTE Date of Consultation: Jan 10, 2025 Time of Consultation: 09:59 History of Present Illness: This is a 44-year-old male with no past medical history who presented to the hospital due to generalized weakness. Upon further evaluation he was found to have leukocytosis with a WBC of 16.4, stable hemoglobin of 16.3 however low platelet count of 30. INR on admission was 1.29. Sodium of 117 on admission and total bilirubin of 5.5. Albumin was low measuring 1.7. He had an elevated troponin. Patient does have a history of alcohol abuse and drug use. He tested positive for strep on 01/04/2025. CT abdomen and pelvis revealing gallstones and HIDA scan revealing acute cholecystitis. Abdominal ultrasound revealing cholelithiasis and hepatomegaly with hepatic steatosis or other underlying hepatocellular disease process. Patient has been evaluated by cardiology with plans for DRAKE however given new cirrhosis diagnosis we were called to rule out esophageal varices. Review of Systems: CONSTITUTIONAL: No malaise or change in sensation of wellbeing. ENMT: No rhinorrhea, otorrhea, sinus pain, ear ache. CARDIOVASCULAR: No angina, palpitations, orthopnea or paroxysmal dyspnea. RESPIRATORY: No SOB. GASTROINTESTINAL: No abdominal pain, nausea, vomiting, diarrhea, hematemesis, melena or change in the patient's habitual bowel movements consistency/number. GENITOURINARY: No dysuria, hematuria or change in bladder continence. MUSCULOSKELETAL: No new muscle pain or decrease in muscular strength. No new frankie int swelling, redness or tenderness. SKIN: No new rash. Past Medical History: ADDITIONAL PAST MEDICAL HISTORY: [Denies any past medical history, fatty liver by CT on 01/05/2025] SOCIAL HISTORY: [Patient smokes one pack of cigarettes daily but only5 times a week. Patient [id number] beers daily but also only5 times a week. Patient reports occasional use of both marijuana and cocaine. Patient denies any other illegal drug use. 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 Patient has poor access to health care due to lack of health insurance. Patient is typically independent of all his ADLs. Patient denies difficulty pain is bills. Patient lives with his daughter Hannah Jin] SURGICAL HISTORY: [Heart stent] Coded Allergies: No Known Drug Allergies (Unverified Allergy, Unknown, 12/18/15) Physical Exam: GEN: Awake, alert, oriented in person, time and place, and in no acute distress. HEENT: No sinus tenderness. Tympanic membranes were not examined. No rhinorrhea. Oral pharyngeal mucosa is pink, moist and within normal limits. Neck is supple with no cervical lymphadenopathy, thyromegaly or JVD. CHEST: Inspection, palpation and percussion of the chest were unremarkable. Lung auscultation revealed normal breath sounds bilaterally. CARDIAC: PMI is within normal limits. Heart sounds are regular. Normal S1, S2. No gallop or murmur. ABD: Soft, non-tender and not distended. No peritoneal signs on palpation. No organomegaly. Normal bowel sounds. EXT: No cyanosis or clubbing. No edema. SKIN: Intact. No rashes. JOINTS: No evidence of synovitis or acute arthritis. NEURO: Alert and oriented to name, place and person. Cranial nerve examination is unremarkable. No focal motor deficits. Normal speech. Gait is normal. Strength is normal. Vital Sign (Last 24 Hours) 01/09/25 01/10/25 19:00 06:00 Temp 98.2 Pulse 69 Resp 20 B/P (MAP) 162/95 Pulse Ox 100 O2 Delivery Room Air Intake & Output (last 24hrs) 01/09/25 01/09/25 01/10/25 15:00 23:00 07:00 Intake Total 908.0 ml 725.0 ml 862.0 ml Output Total 1400 ml 1300 ml 1501 ml Balance -492.0 ml -575.0 ml -639.0 ml Laboratory: [ ] Laboratory: Test 01/10/25 09:29 01/10/25 06:07 01/10/25 02:36 01/09/25 20:35 Range/Units Whole Blood Glucose 89 70-110 MG/DL Sodium Level 144 136-145 mmol/L Potassium Level 4.1 3.5-5.1 mmol/L Chloride Level 113 H 101-111 mmol/L Carbon Dioxide Level 15 L 21-32 mmol/L Blood Urea Nitrogen 60 H 7-18 mg/dL Creatinine 1.5 H 0.5-1.3 mg/dL Glomerular Filtration Rate Calc 59 >90 mL/min Random Glucose 89 70-105 mg/dL Lactic Acid Level 4.8 H 0.8-2.5 mmol/L Total Calcium 7.0 L 8.5-10.1 mg/dL White Blood Count 11.7 H 4.8-10.8 K/uL Red Blood Count 3.77 #L 4.50-6.20 MIL/uL Hemoglobin 12.4 L 14.0-18.0 g/dL Hematocrit 35.4 L 42-54 % Mean Corpuscular Volume 93.9 79-99 fL Mean Corpuscular Hemoglobin 32.9 27.0-33.0 pg Mean Corpuscular Hemoglobin Concent 35.0 32.0-36.0 g/dL Red Cell Distribution Width 14.2 11.0-15.5 % Platelet Count 66 L 130-400 K/uL Mean Platelet Volume 11.5 H 7.5-10.5 fL Immature Granulocyte % (Auto) 1.9 H 0-1 % Neutrophils (%) (Auto) 85.0 H 40.0-77.0 % Lymphocytes (%) (Auto) 4.9 L 21.0-51.0 % Monocytes (%) (Auto) 7.9 3.0-13.0 % Eosinophils (%) (Auto) 0.2 0.0-8.0 % Basophils (%) (Auto) 0.1 0.0-5.0 % Neutrophils # (Auto) 10.0 H 1.8-7.7 K/uL Lymphocytes # (Auto) 0.6 L 1.0-4.8 K/uL Monocytes # (Auto) 0.9 0.1-1.0 K/uL Eosinophils # (Auto) 0.02 0.00-0.70 K/uL Basophils # (Auto) 0.01 0.00-0.20 K/uL Absolute Immature Granulocyte (auto 0.22 0-1 K/uL Nucleated Red Blood Cells 0.0 0.0-0.19 % Prothrombin Time 14.2 H 9.6-11.6 SEC Prothromb Time International Ratio 1.30 H 0.85-1.15 Activated Partial Thromboplast Time 31.0 26.3-35.5 SEC Total Bilirubin 1.1 #H 0.2-1.0 mg/dL Aspartate Amino Transf (AST/SGOT) 25 10-37 U/L Alanine Aminotransferase (ALT/SGPT) 23 # 12-78 U/L Alkaline Phosphatase 77 50-136 U/L Total Protein 4.6 #L 6.0-8.3 g/dL Albumin 1.4 #L 3.5-5.0 g/dL Magnesium Level 2.00 1.80-2.40 mg/dL Test 01/09/25 15:20 Range/Units HIV (1&2) Antibody Non-Reactive Negative HIV P24 Antigen, Qualitative Non-Reactive Negative Current Medications Medications (Trade) Dose Ordered Sig/Asya Route PRN Reason Start Time Stop Time Status Last Admin Dose Admin Acetaminophen (TYLenol 325MG TAB) 650 mg Q6H PRN PO TEMPERATURE GREATER THAN 101.5 01/05/25 02:30 02/04/25 02:29 01/08/25 04:21 650 MG Aspirin (Aspirin 81mg Chew Tab) 81 mg DAILY PO 01/05/25 09:00 01/05/25 09:53 DC Benzocaine (Cepacol Sore Throat Lozenge) 1 each Q4H PRN MM SORE THROAT 01/05/25 02:30 02/04/25 02:29 Calcium Gluconate 1 gm/Sodium Chloride 100 ml @ 0 mls/hr AD PRN IV Serum Calcium Correction 01/08/25 02:30 02/07/25 02:29 01/08/25 23:32 90 MLS/HR Cefazolin Sodium (Ancef) 2 gm Q12H IVPB 01/07/25 13:30 01/17/25 13:29 01/10/25 01:20 2 GM Chlordiazepoxide HCl (LIBrium 25 MG CAP) 25 mg Q8H PO 01/05/25 02:30 01/12/25 02:29 01/10/25 03:33 25 MG Dexamethasone Sodium Phosphate 20 mg/Sodium Chloride 52 ml @ 100 mls/hr DAILY IV 01/09/25 09:00 02/08/25 08:59 01/10/25 09:18 100 MLS/HR Dexamethasone Sodium Phosphate 40 mg/Sodium Chloride 50 ml @ 100 mls/hr DAILY IV 01/06/25 14:00 01/08/25 12:16 DC 01/08/25 09:34 100 MLS/HR Dextrose (D50w) 50 ml AD PRN IV HYPOGLYCEMIA PROTOCOL 01/05/25 10:00 02/04/25 09:59 Doxycycline Hyclate 250 ml @ 125 mls/hr Q12H IV 01/05/25 10:00 01/06/25 21:05 DC 01/06/25 09:30 125 MLS/HR Doxycycline Hyclate 250 ml @ 125 mls/hr Q12H IV 01/06/25 21:30 01/16/25 21:29 01/10/25 09:19 125 MLS/HR Folic Acid (FOLic ACID 1 MG TABLET) 1 mg DAILY PO 01/07/25 10:30 02/06/25 10:29 01/10/25 09:18 1 MG Furosemide (LASix 20MG VIAL) 20 mg Q12H IV 01/07/25 16:00 01/20/25 16:00 01/10/25 03:34 20 MG Glucagon (Glucagon 1mg Kit) 1 mg AD PRN IM HYPOGLYCEMIA PROTOCOL 01/05/25 10:00 02/04/25 09:59 Hydralazine HCl (APRESOLine 20MG INJ) 5 mg Q6H PRN IV For:SBP above 160;DBP above 90 01/05/25 14:30 02/04/25 14:29 01/10/25 03:36 5 MG Hydralazine HCl (APRESOLine 20MG INJ) 10 mg Q6H PRN IV For:SBP above 160;DBP above 90 01/05/25 02:30 01/05/25 09:53 DC Insulin Glargine (LANtus 100 UNITS/ML 10 ML VIAL) 15 units Q12H SQ 01/07/25 21:30 01/09/25 23:18 DC 01/09/25 13:10 15 UNITS Insulin Glargine (LANtus 100 UNITS/ML 10 ML VIAL) 20 units HS SQ 01/06/25 21:00 01/06/25 21:05 DC Insulin Glargine (LANtus 100 UNITS/ML 10 ML VIAL) 20 units HS SQ 01/06/25 21:30 01/07/25 10:24 DC 01/06/25 21:33 20 UNITS Insulin Glargine (LANtus 100 UNITS/ML 10 ML VIAL) 20 units Q12H SQ 01/10/25 09:30 02/09/25 09:29 Insulin Human Regular (humuLIN R 100 UNIT/ML 3ML) INSULIN SLIDING SCAL... ACHS SQ 01/05/25 07:30 01/05/25 09:57 DC 01/05/25 07:59 16 UNIT Insulin Human Regular (humuLIN R 100 UNIT/ML 3ML) INSULIN SLIDING SCAL... ACHS SQ 01/05/25 11:30 01/06/25 16:43 DC 01/06/25 11:50 8 UNIT Insulin Human Regular (humuLIN R 100 UNIT/ML 3ML) INSULIN SLIDING SCAL... ACHS SQ 01/06/25 17:00 01/07/25 13:32 DC 01/06/25 17:17 16 UNIT Insulin Human Regular 100 unit/ Sodium Chloride 100 ml @ 0 mls/hr AD PRN IV HYPERGLYCEMIA PROTOCOL 01/06/25 19:30 01/10/25 06:00 DC 01/09/25 19:10 16 MLS/HR Lactated Ringer's 1,000 ml @ 100 mls/hr Q10H IV 01/05/25 02:30 01/05/25 09:51 DC 01/05/25 02:30 100 MLS/HR Lactated Ringer's 1,000 ml @ 125 mls/hr Q8H IV 01/10/25 01:30 02/09/25 01:29 01/10/25 01:35 125 MLS/HR Lorazepam (AtiVAN) 1 mg Q4H PRN IVP ALCOHOL WITHDRAWAL PROTOCOL 01/05/25 02:30 01/12/25 02:29 Magnesium Sulfate 50 ml @ 0 mls/hr PROTOCOL PRN IV h 01/05/25 02:30 02/04/25 02:29 01/05/25 03:24 25 MLS/HR Morphine Sulfate (morPHINE 2MG SYG) 2 mg Q4H PRN IVP SEVERE PAIN (7-10) 01/05/25 02:30 01/12/25 02:29 Multivitamins Therapeutic (Multivitamin Tablet) 1 tab DAILY PO 01/07/25 10:30 02/06/25 10:29 01/10/25 09:18 1 TAB Nicotine (Nicoderm) 21 mg DAILY TD 01/05/25 09:00 02/04/25 08:59 01/10/25 09:18 21 MG Nitroglycerin (Nitrostat) 0.4 mg AD PRN SL CHEST PAIN 01/05/25 02:30 02/04/25 02:29 Ondansetron HCl (zoFRAN 4MG INJ) 4 mg Q6H PRN IV NAUSEA/VOMITING 01/05/25 02:30 02/04/25 02:29 Pantoprazole Sodium (PROTonix 40MG TAB) 40 mg DAILY PO 01/05/25 09:00 02/04/25 08:59 01/10/25 09:18 40 MG Pharmacy Profile Note (Pharmacy Communication) 1 each PROTOCOL PRN MISC ETOH Withdrawal Score changes 01/05/25 02:30 01/12/25 02:29 Piperacillin Sod/ Tazobactam Sod (Zosyn 3.375gm+NS 50ml) 3.375 gm Q12H IV 01/05/25 02:30 01/07/25 13:24 DC 01/07/25 02:45 3.375 GM Potassium Phosphate 250 ml @ 42 mls/hr PROTOCOL PRN IV PROTOCOL 01/05/25 10:00 02/04/25 09:59 Potassium Chloride 100 ml @ 100 mls/hr AD PRN IV POTASSIUM PROTOCOL 01/05/25 02:30 01/07/25 10:12 DC Potassium Chloride 100 ml @ 100 mls/hr AD PRN IV POTASSIUM PROTOCOL 01/07/25 10:30 02/06/25 10:29 01/09/25 06:26 100 MLS/HR Potassium Chloride (K-Dur 10meq Sr Tab) 10 meq AD PRN PO POTASSIUM PROTOCOL 01/06/25 09:30 02/04/25 02:29 01/08/25 23:35 10 MEQ Potassium Chloride (K-Dur/Klor-Con 20meq) 10 meq AD PRN PO POTASSIUM PROTOCOL 01/05/25 02:30 01/06/25 09:12 DC 01/05/25 22:15 10 MEQ Potassium Chloride (K-Dur/Klor-Con 20meq) 10 meq AD PRN PO POTASSIUM PROTOCOL 01/07/25 10:30 01/07/25 10:12 DC Potassium Chloride (KCl 10% Elixir 20meq/15ml) 10 meq AD PRN PO POTASSIUM PROTOCOL 01/05/25 02:30 01/07/25 10:12 DC 01/06/25 17:16 10 MEQ Potassium Chloride (KCl 10% Elixir 20meq/15ml) 10 meq AD PRN PO POTASSIUM PROTOCOL 01/07/25 10:30 02/06/25 10:29 01/08/25 15:28 10 MEQ Sodium Chloride 1,000 ml @ 50 mls/hr Q20H IV 01/05/25 10:00 01/10/25 01:33 DC 01/09/25 05:56 50 MLS/HR Triamcinolone Acetonide (Kenalog/ Aristocort) 1 APPLY TP BID BID TP 01/07/25 11:00 02/06/25 10:59 01/10/25 09:21 1 APPL Vancomycin HCl (Vancomycin Protocol) 1 each AD IV 01/07/25 12:30 01/07/25 12:40 DC Diagnostics / Radiology: [COPY/PASTE HERE IF NO REPORTS PLEASE DELETE SECTION] Assessment: Decompensated cirrhosis Thrombocytopenia Abnormal troponin Alcohol abuse Plan: EGD in am to evaluate for esophageal/gastric varices Follow cardio recommendations Will obtain liver serologies to r/o other liver pathology Please contact our service if the patient has significant bleeding such as hematemesis and we can proceed sooner with the EGD Thanks you for allowing us to participate in the care of this patient! HILDA MUIR COMPUTER DISCOVERY TEACHER Jan 10, 2025 09:59
--- NOTE | 2025-01-10 12:21 | PN ---
[facility] PROGRESS NOTE Date Patient Seen: Jan 10, 2025 Time of Visit: 12:20 Supervising Physician: Moy Zamarripa MD Primary Care Physician: Grocery Bagger PCP Outpatient Specialists: [ ] Inpatient Consults:Critical care, Hematology, cardiology and nephrology PROBLEM LIST: Severe hyperglycemia requiring Inulin gtt now resolving. Severe sepsis and shock POA, resolving Urinary tract infection, POA Klebsiella pneumoniae cultured in the urine Staph aureus bacteremia POA Aortic valve endocarditis with mobile vegetation Strep pharyngitis, POA Acute kidney injury, POA improving Hypokalemia, POA improving Hyponatremia, POA improving Thrombocytopenia. 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 Uncontrolled Diabetes mellitius type2, POA HgA1C 8.5 Elevated troponin, POA suspected type II UT Substance abuse, POA, cocaine/Marijuana Alcohol dependence, POA Tobacco dependence, POA Hepatomegaly with hepatosteatosis MELD score on admission of 31 Morbid obesity Noncompliance behavior INTERVAL HISTORY: 01/10/25- patient is awake alert and oriented x3. He has been hemodynamically stable and afebrile. Patient is saturating 100% on room air. As per RN no major overnight events. WBCs are improving 11.7 today H&H stable 12.4/35.4 platelet count is 66 K, hematology is following no recommendations for platelet transfusion at time. Patient to continue with Decadron effusions. Ketones has been negative we will repeat in the morning. Blood sugars has been between 89 and 241 mg/dL in the last 24 hours. We will stop the insulin drip and transitioned to high dose sliding scale q.4 hours and increase the Lantus to 30 units subQ b.i.d.. We will continue with light hydration and stop furosemide for now. We will recheck ketones venous blood gas and BNP in the morning. Per GI and cardiology pending a EGD to rule out esophageal varices and scheduled DRAKE right after that per cardiology recs. REVIEW OF SYSTEMS: 12 point ROS reviewed with patient. Pertinent positives mentioned above. Otherwise negative. PHYSICAL EXAM: GENERAL: alert, weak, awake oriented x 3 HEENT: EOMI, Sclera non icteric, moist mucosa NECK: Supple, no JVD, trachea midline LUNGS: Clear breath sounds bilaterally. No wheezes HEART: Regular rate and rhythm. Normal S1 and S2, without murmurs ABD: Abdomen soft, nontender. Bowel sounds present EXT: No clubbing cyanosis or edema NEURO: Alert and oriented to person, follows commands Vital Signs (last 8hr) Date Time Temp Pulse Resp B/P (MAP) Pulse Ox O2 Delivery O2 Flow Rate FiO2 01/10/25 06:00 69 20 162/95 100 Room Air 01/10/25 05:00 70 22 139/81 100 Room Air LABS: Hematology Labs: Test 01/10/25 02:36 Range/Units White Blood Count 11.7 H 4.8-10.8 K/uL Red Blood Count 3.77 #L 4.50-6.20 MIL/uL Hemoglobin 12.4 L 14.0-18.0 g/dL Hematocrit 35.4 L 42-54 % Mean Corpuscular Volume 93.9 79-99 fL Mean Corpuscular Hemoglobin 32.9 27.0-33.0 pg Mean Corpuscular Hemoglobin Concent 35.0 32.0-36.0 g/dL Red Cell Distribution Width 14.2 11.0-15.5 % Platelet Count 66 L 130-400 K/uL Mean Platelet Volume 11.5 H 7.5-10.5 fL Immature Granulocyte % (Auto) 1.9 H 0-1 % Neutrophils (%) (Auto) 85.0 H 40.0-77.0 % Lymphocytes (%) (Auto) 4.9 L 21.0-51.0 % Monocytes (%) (Auto) 7.9 3.0-13.0 % Eosinophils (%) (Auto) 0.2 0.0-8.0 % Basophils (%) (Auto) 0.1 0.0-5.0 % Neutrophils # (Auto) 10.0 H 1.8-7.7 K/uL Lymphocytes # (Auto) 0.6 L 1.0-4.8 K/uL Monocytes # (Auto) 0.9 0.1-1.0 K/uL Eosinophils # (Auto) 0.02 0.00-0.70 K/uL Basophils # (Auto) 0.01 0.00-0.20 K/uL Absolute Immature Granulocyte (auto 0.22 0-1 K/uL Nucleated Red Blood Cells 0.0 0.0-0.19 % Chemistry Labs: Test 01/10/25 11:10 01/10/25 09:29 01/10/25 06:07 01/10/25 02:36 Range/Units Lactic Acid Level 1.8 0.8-2.5 mmol/L Whole Blood Glucose 89 70-110 MG/DL Sodium Level 144 136-145 mmol/L Potassium Level 4.1 3.5-5.1 mmol/L Chloride Level 113 H 101-111 mmol/L Carbon Dioxide Level 15 L 21-32 mmol/L Blood Urea Nitrogen 60 H 7-18 mg/dL Creatinine 1.5 H 0.5-1.3 mg/dL Glomerular Filtration Rate Calc 59 >90 mL/min Random Glucose 89 70-105 mg/dL Total Calcium 7.0 L 8.5-10.1 mg/dL Total Bilirubin 1.1 #H 0.2-1.0 mg/dL Aspartate Amino Transf (AST/SGOT) 25 10-37 U/L Alanine Aminotransferase (ALT/SGPT) 23 # 12-78 U/L Alkaline Phosphatase 77 50-136 U/L Total Protein 4.6 #L 6.0-8.3 g/dL Albumin 1.4 #L 3.5-5.0 g/dL Test 01/09/25 20:35 Range/Units Magnesium Level 2.00 1.80-2.40 mg/dL Coagulation Labs: Test 01/10/25 02:36 Range/Units Prothrombin Time 14.2 H 9.6-11.6 SEC Prothromb Time International Ratio 1.30 H 0.85-1.15 Activated Partial Thromboplast Time 31.0 26.3-35.5 SEC DIAGNOSTICS / RADIOLOGY RESULTS: Signed PATIENT: ADAM MOE III MR#: [id number] : 1980 SEX: M AGE: 44 LOCATION: 2CH ORDER STATUS: ADM IN REPORT#: [id number] SERVICE [id number] REASON: eval gallbladder, cholecystitis. ORDERING PHYSICIAN: HANNAH CARTER MD PROCEDURE: ABDOMEN - US ABDOMINAL COMPLETE ULTRASOUND ABDOMEN COMPLETE INDICATION: Abdominal Pain COMPARISON: 01/05/2025 CT abdomen and pelvis. FINDINGS: The liver is enlarged and increased in echogenicity; no focal lesion demonstrated. Length is measured at 21.6 cm Main portal vein is patent, and normal direction of vascular flow demonstrated. The common bile duct caliber measures 4.0 mm. Echogenic shadowing gallstones without associated pericholecystic fluid. No sonographic Dominguez's sign elicited by the ultrasound head up operator. Wall thickness measures 2.0 mm. The spleen is normal in size and echotexture. The spleen measures 9.8 cm. Visible portions of the pancreas appear unremarkable. The right kidney measures 12.6 x 6.3 x 6.6 cm,and is normal in echogenicity, without evidence for hydronephrosis or shadowing stones. The left kidney measures 12.8 x 8.1 x 6.0 cm,and is normal in echogenicity, without evidence for hydronephrosis or shadowing stones. Visible portions of the abdominal aorta are within normal limits. Visible portions of the inferior vena cava are within normal limits. No free fluid demonstrated. IMPRESSION: Cholelithiasis without sonographic evidence for cholecystitis. Findings suggesting hepatomegaly and hepatic steatosis or other underlying hepatocellular disease process. DICTATED BY: KIARA PETERSON MD DATE: 01/08/25 0955 ELECTRONICALLY SIGNED BY: KIARA PETERSON MD DATE: 01/08/25 1000 PLAN Stop indulin gtt and start high dose ISS q4 hrs and increase lantus to 30 units sq bid Pending EGD by GI and DRAKE per Cardiology Continue IV antibiotics Keep in ICU tonight re-evaluate disposition tomorrow after DRAKE NEURO: Minimize central acting medications as possible. Fall Precautions. Well lighted room through the day and minimize interruptions through the night to prevent acute delirium. PULMONARY: Supplemental 02 as needed Titrate Fio2 to keep Spo2 > or = 90% DuoNebs and CPT as needed IS hourly while awake for pulmonary hygiene Out of bed to chair as tolerated VAP Bundle CARDIOVASCULAR: Follow hemodynamics. Titrate vasopressor to keep MAP >65 or systolic blood pressure >95mmHg DIPS: None LINES: PIV's GI & NUTRITION: Continue nutritional support Aspirations precautions Prokinetic agents and laxatives as needed KIDNEYS & ELECTROLYTES: Strict monitoring of intake and output Daily weights Avoid nephrotoxic agents Monitor electrolytes and replace as needed Goal urine output of 30mL/hr or 0.5mL/kg/hr Urine output: [ ] Fluid Balance: [ ] ENDOCRINE: Maintain blood glucose between 100-180 at all times. Insulin sliding scale for blood glucose management INFECTIOUS DISEASE: Trend temperature. Mccormack-culture if febrile. Micro: [ ] Antibiotics: [ ] HEMATOLOGY & COAGULATION: Monitor H&H. Keep Hgb > 7 Transfuse 1 unit of PRBC for Hgb < 7 Transfuse 1 pack of platelets of platelets < 20, 000 Watch for any signs and symptoms of bleeding SKIN: Pressure ulcer prevention per facility protocol Rehab: PT/OT Prophylaxis: GI: Protonix DVT: SCD Code Status: Full Resuscitation Disposition: ICU Other: Total patient care time exceeds 35 minutes excluding all procedures. Case was discussed and seen with my supervising physician. The above plan was formulated and agreed upon. JO DAVID OVERSEAMER Jan 10, 2025 12:21
--- NOTE | 2025-01-10 14:07 | PN ---
Mr. Jin is a 44-year-old male that was seen and examined today on 01/05/2025. Patient is a good historian and personal health. Patient is a good historian and personal health. Patient states that he came to the emergency department at the behest of his daughter. Patient's chief complaint is weakness. Onset was Thursday12/30/2024. Location is to entire body. Duration is constant. Character is described as, " today Orion needed help to get out of the sofa and out of the shower. I also fell down once. "There was no alleviating factors. Symptoms are aggravated with physical activity. Patient denies any associated chest pain or shortness and breath. I was consulted because of leukocytosis and severe thrombocytopenia. This patient have have any alcoholism. Patient also on cocaine. It seems the patient may be have pyelonephritis by CT scan with the patient was started on antibiotic treatment. This patient was found to have thrombocytopenia. Which was multifactorial including cirrhosis of the liver and possible ITP. Platelet count improved. This patient receiving dexamethasone 20 mg IV daily. Patient was found to have bacteremia. With the 2D echo showing possible vegetation of the valve. There is plan for DRAKE to be done tomorrow. They plan to do EGD before the DRAKE. PE General Appearance: Alert, Oriented X3, Cooperative, moderate distress HEENT: Atraumatic, PERRLA, EOMI, Other (Mucous membranes dry and cracked) Respiratory: Clear to auscultation, Normal air movement, NL respiratory effort Cardiovascular: Normal S1, Normal S2, Other (Tachycardia) Abdominal: Normal bowel sounds, Soft, No tenderness Extremities: No edema Skin: No significant lesion Neuro: Normal gait, Normal speech, Strength at 5/5 X4 ext, Sensation intact, Cranial nerves 3-12 NL Psych/Mental Status: Mental status NL, Mood NL, Thoughts/Content NL Assessment 1. Thrombocytopenia. 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 2. Acute on chronic renal failure 4. Severe sepsis. Possible bacteremia and possible endocarditis 5. Leukocytosis 6. Cocaine abuse 7. Alcohol abuse 8. Hepatomegaly 9. Splenomegaly 10. Bacteremia with possibility of endocarditis. Plan 1. Patient to continue with decrease the dose of dexamethasone to 20 mg IV. 2. There was hypersegmented neutrophils. This patient to Continue on folic acid 1 mg p.o. daily and vitamin B12 1000 mcg p.o. daily. 3. There is difficulty controlling his sugar. Patient on insulin drip. So this patient could benefit from IVIG. The IVIG could also could help this patient sepsis with the patient could improve significantly especially if he is immunodeficient. So we will follow-up with CBC tomorrow and may be plan our care accordingly. This patient may be will start on IVIG. I discussed the case with Dr. Navarro 4. Please do not transfuse any platelet anymore 5. Patient to have CBC tomorrow. Vitals/Labs Vital Signs Date Time Temp Pulse Resp B/P (MAP) Pulse Ox O2 Delivery O2 Flow Rate FiO2 01/10/25 12:00 98.2 86 35 152/75 100 Room Air 01/10/25 04:00 0 21 Laboratory Tests 01/09/25 20:35 01/10/25 02:36 01/10/25 06:07 Medications Current Medications Sodium Chloride 1,000 ml @ 125 mls/hr ONCE ONCE IV Last administered on 01/05/25at 00:13; Start 01/04/25 at 23:00; Stop 01/05/25 at 06:59; Status DC Aspirin 81 mg ONCE ONCE PO Last administered on 01/05/25at 00:14; Start 01/04/25 at 23:00; Stop 01/04/25 at 23:01; Status DC Ondansetron HCl 4 mg ONCE ONCE IVP Last administered on 01/05/25at 00:13; Start 01/04/25 at 23:00; Stop 01/04/25 at 23:01; Status DC Potassium Chloride 100 ml @ 50 mls/hr ONCE ONCE IV Last administered on 01/05/25at 00:13; Start 01/05/25 at 00:00; Stop 01/05/25 at 01:59; Status DC Potassium Chloride 100 ml @ 50 mls/hr ONCE ONCE IV Last administered on 01/05/25at 03:12; Start 01/05/25 at 00:00; Stop 01/05/25 at 01:59; Status DC Thiamine HCl 100 mg ONCE ONCE IVP Last administered on 01/05/25at 01:01; Start 01/05/25 at 00:00; Stop 01/05/25 at 00:01; Status DC Acetaminophen 500 mg STK-MED ONCE .ROUTE; Start 01/05/25 at 00:28; Stop 01/05/25 at 00:28; Status DC Cefepime HCl 1 gm ONCE ONCE IVPB Last administered on 01/05/25at 01:01; Start 01/05/25 at 01:00; Stop 01/05/25 at 01:02; Status DC Vancomycin HCl 750 mg ONCE ONCE IVPB Last administered on 01/05/25at 02:12; Start 01/05/25 at 01:00; Stop 01/05/25 at 01:02; Status DC Sodium Chloride 250 ml ONCE ONCE IVPB Last administered on 01/05/25at 02:12; Start 01/05/25 at 01:00; Stop 01/05/25 at 01:02; Status DC Acetaminophen 1,000 mg ONCE ONCE PO Last administered on 01/05/25at 00:30; Start 01/05/25 at 01:00; Stop 01/05/25 at 01:02; Status DC Aspirin 81 mg DAILY PO; Start 01/05/25 at 09:00; Stop 01/05/25 at 09:53; Status DC Nitroglycerin 0.4 mg AD PRN SL; Start 01/05/25 at 02:30; Stop 02/04/25 at 02:29 Aspirin 162 mg ONCE ONCE PO Last administered on 01/05/25at 03:06; Start 01/05/25 at 02:30; Stop 01/05/25 at 02:31; Status DC Insulin Human Regular INSULIN SLIDING SCAL... ACHS SQ Last administered on 01/05/25at 07:59; Start 01/05/25 at 07:30; Stop 01/05/25 at 09:57; Status DC Lactated Ringer's 3,429 ml @ 1,143 mls/hr ONCE ONCE IV Last administered on 01/05/25at 03:12; Start 01/05/25 at 02:30; Stop 01/05/25 at 05:29; Status DC Piperacillin Sod/ Tazobactam Sod 3.375 gm Q12H IV Last administered on 01/07/25at 02:45; Start 01/05/25 at 02:30; Stop 01/07/25 at 13:24; Status DC Potassium Chloride 100 ml @ 100 mls/hr AD PRN IV; Start 01/05/25 at 02:30; Stop 01/07/25 at 10:12; Status DC Potassium Chloride 10 meq AD PRN PO Last administered on 01/06/25at 17:16; Start 01/05/25 at 02:30; Stop 01/07/25 at 10:12; Status DC Potassium Chloride 10 meq AD PRN PO Last administered on 01/05/25at 22:15; Start 01/05/25 at 02:30; Stop 01/06/25 at 09:12; Status DC Acetaminophen 650 mg Q6H PRN PO Last administered on 01/08/25at 04:21; Start 01/05/25 at 02:30; Stop 02/04/25 at 02:29 Pantoprazole Sodium 40 mg DAILY PO Last administered on 01/10/25at 09:18; Start 01/05/25 at 09:00; Stop 02/04/25 at 08:59 Ondansetron HCl 4 mg Q6H PRN IV; Start 01/05/25 at 02:30; Stop 02/04/25 at 02:29 Morphine Sulfate 2 mg Q4H PRN IVP; Start 01/05/25 at 02:30; Stop 01/12/25 at 02:29 Hydralazine HCl 10 mg Q6H PRN IV; Start 01/05/25 at 02:30; Stop 01/05/25 at 09:53; Status DC Benzocaine 1 each Q4H PRN MM; Start 01/05/25 at 02:30; Stop 02/04/25 at 02:29 Magnesium Sulfate 50 ml @ 0 mls/hr PROTOCOL PRN IV Last administered on 01/05/25at 03:24; Start 01/05/25 at 02:30; Stop 02/04/25 at 02:29 Lactated Ringer's 1,000 ml @ 100 mls/hr Q10H IV Last administered on 01/05/25at 02:30; Start 01/05/25 at 02:30; Stop 01/05/25 at 09:51; Status DC Chlordiazepoxide HCl 25 mg Q8H PO Last administered on 01/10/25at 03:33; Start 01/05/25 at 02:30; Stop 01/12/25 at 02:29 Lorazepam 1 mg Q4H PRN IVP; Start 01/05/25 at 02:30; Stop 01/12/25 at 02:29 Pharmacy Profile Note 1 each PROTOCOL PRN MISC; Start 01/05/25 at 02:30; Stop 01/12/25 at 02:29 Nicotine 21 mg DAILY TD Last administered on 01/10/25at 09:18; Start 01/05/25 at 09:00; Stop 02/04/25 at 08:59 Sodium Chloride 1,000 ml @ 50 mls/hr Q20H IV Last administered on 01/09/25at 05:56; Start 01/05/25 at 10:00; Stop 01/10/25 at 01:33; Status DC Potassium Phosphate 250 ml @ 42 mls/hr PROTOCOL PRN IV; Start 01/05/25 at 10:00; Stop 02/04/25 at 09:59 Hydralazine HCl 5 mg Q6H PRN IV Last administered on 01/10/25at 03:36; Start 01/05/25 at 14:30; Stop 02/04/25 at 14:29 Doxycycline Hyclate 250 ml @ 125 mls/hr Q12H IV Last administered on 01/06/25at 09:30; Start 01/05/25 at 10:00; Stop 01/06/25 at 21:05; Status DC Potassium Chloride 40 meq ONCE ONCE PO Last administered on 01/05/25at 10:25; Start 01/05/25 at 10:00; Stop 01/05/25 at 10:01; Status DC Potassium Chloride 100 ml @ 50 mls/hr ONCE ONCE IV Last administered on 01/05/25at 10:25; Start 01/05/25 at 10:00; Stop 01/05/25 at 11:59; Status DC Dextrose 50 ml AD PRN IV; Start 01/05/25 at 10:00; Stop 02/04/25 at 09:59 Glucagon 1 mg AD PRN IM; Start 01/05/25 at 10:00; Stop 02/04/25 at 09:59 Insulin Human Regular INSULIN SLIDING SCAL... ACHS SQ Last administered on 01/06/25at 11:50; Start 01/05/25 at 11:30; Stop 01/06/25 at 16:43; Status DC Dexamethasone Sodium Phosphate 10 mg ONCE ONCE IVP Last administered on 01/05/25at 17:27; Start 01/05/25 at 13:30; Stop 01/05/25 at 14:03; Status DC Insulin Glargine 20 units HS SQ; Start 01/06/25 at 21:00; Stop 01/06/25 at 21:05; Status DC Potassium Chloride 10 meq AD PRN PO Last administered on 01/08/25at 23:35; Start 01/06/25 at 09:30; Stop 02/04/25 at 02:29 Dexamethasone Sodium Phosphate 40 mg DAILY ONCE IV; Start 01/07/25 at 09:00; Stop 01/06/25 at 13:27; Status DC Dexamethasone Sodium Phosphate 40 mg/Sodium Chloride 50 ml @ 100 mls/hr DAILY IV Last administered on 01/08/25at 09:34; Start 01/06/25 at 14:00; Stop 01/08/25 at 12:16; Status DC Insulin Human Regular INSULIN SLIDING SCAL... ACHS SQ Last administered on 01/06/25at 17:17; Start 01/06/25 at 17:00; Stop 01/07/25 at 13:32; Status DC Insulin Human Regular 100 unit/ Sodium Chloride 100 ml @ 0 mls/hr AD PRN IV Last administered on 01/09/25at 19:10; Start 01/06/25 at 19:30; Stop 01/10/25 at 06:00; Status DC Insulin Glargine 20 units HS SQ Last administered on 01/06/25at 21:33; Start 01/06/25 at 21:30; Stop 01/07/25 at 10:24; Status DC Doxycycline Hyclate 250 ml @ 125 mls/hr Q12H IV Last administered on 01/10/25at 09:19; Start 01/06/25 at 21:30; Stop 01/16/25 at 21:29 Chlordiazepoxide HCl 25 mg STK-MED ONCE .ROUTE; Start 01/07/25 at 02:35; Stop 01/07/25 at 02:41; Status DC Piperacillin Sod/ Tazobactam Sod 50 ml @ As Directed STK-MED ONCE .ROUTE; Start 01/07/25 at 02:39; Stop 01/07/25 at 02:41; Status DC Potassium Chloride 0 ml @ As Directed STK-MED ONCE IV; Start 01/07/25 at 07:28; Stop 01/07/25 at 07:31; Status DC Potassium Chloride 40 meq ONCE ONCE PO Last administered on 01/07/25at 09:44; Start 01/07/25 at 10:00; Stop 01/07/25 at 10:01; Status DC Potassium Chloride 100 ml @ 100 mls/hr AD PRN IV Last administered on 01/09/25at 06:26; Start 01/07/25 at 10:30; Stop 02/06/25 at 10:29 Potassium Chloride 10 meq AD PRN PO Last administered on 01/08/25at 15:28; Start 01/07/25 at 10:30; Stop 02/06/25 at 10:29 Potassium Chloride 10 meq AD PRN PO; Start 01/07/25 at 10:30; Stop 01/07/25 at 10:12; Status DC Insulin Glargine 15 units Q12H SQ Last administered on 01/09/25at 13:10; Start 01/07/25 at 21:30; Stop 01/09/25 at 23:18; Status DC Insulin Glargine 10 units ONCE ONCE SQ Last administered on 01/07/25at 10:40; Start 01/07/25 at 10:30; Stop 01/07/25 at 10:31; Status DC Thiamine HCl 300 mg DAILY ONCE IVP Last administered on 01/07/25at 10:39; Start 01/07/25 at 10:30; Stop 01/07/25 at 10:31; Status DC Multivitamins Therapeutic 1 tab DAILY PO Last administered on 01/10/25at 09:18; Start 01/07/25 at 10:30; Stop 02/06/25 at 10:29 Folic Acid 1 mg DAILY PO Last administered on 01/10/25at 09:18; Start 01/07/25 at 10:30; Stop 02/06/25 at 10:29 Triamcinolone Acetonide 1 APPLY TP BID BID TP Last administered on 01/10/25at 09:21; Start 01/07/25 at 11:00; Stop 02/06/25 at 10:59 Vancomycin HCl 1 each AD IV; Start 01/07/25 at 12:30; Stop 01/07/25 at 12:40; Status DC Cefazolin Sodium 2 gm Q12H IVPB Last administered on 01/10/25at 13:08; Start 01/07/25 at 13:30; Stop 01/24/25 at 21:00 Furosemide 20 mg Q12H IV Last administered on 01/10/25at 03:34; Start 01/07/25 at 16:00; Stop 01/20/25 at 16:00 Calcium Gluconate 1 gm/Sodium Chloride 100 ml @ 0 mls/hr AD PRN IV Last administered on 01/08/25at 23:32; Start 01/08/25 at 02:30; Stop 02/07/25 at 02:29 Dexamethasone Sodium Phosphate 20 mg/Sodium Chloride 52 ml @ 100 mls/hr DAILY IV Last administered on 01/10/25at 09:18; Start 01/09/25 at 09:00; Stop 02/08/25 at 08:59 Insulin Glargine 20 units Q12H SQ; Start 01/10/25 at 09:30; Stop 01/10/25 at 12:58; Status DC Lactated Ringer's 1,000 ml @ 125 mls/hr Q8H IV Last administered on 01/10/25at 13:07; Start 01/10/25 at 01:30; Stop 02/09/25 at 01:29 Lactated Ringer's 1,000 ml BOLUS ONCE IV Last administered on 01/10/25at 09:20; Start 01/10/25 at 07:30; Stop 01/10/25 at 07:31; Status DC Lidocaine HCl 100 mg STK-MED ONCE .ROUTE; Start 01/10/25 at 08:01; Stop 01/10/25 at 08:02; Status DC Propofol 200 mg STK-MED ONCE IV; Start 01/10/25 at 08:02; Stop 01/10/25 at 08:02; Status DC Glycopyrrolate 1 mg STK-MED ONCE .ROUTE; Start 01/10/25 at 08:02; Stop 01/10/25 at 08:02; Status DC Ketamine HCl 50 mg STK-MED ONCE .ROUTE; Start 01/10/25 at 08:03; Stop 01/10/25 at 08:03; Status DC Insulin Glargine 25 units Q12H SQ; Start 01/10/25 at 21:30; Stop 02/09/25 at 21:29 Insulin Human Regular INSULIN SLIDING SCAL... Q6H6 SQ; Start 01/10/25 at 18:00; Stop 02/09/25 at 17:59 LEOPOLDO AGUILAR MD Jan 10, 2025 14:07
[2025-01-10] MEDS: INSULIN humuLIN R 100 UNIT/ML 3ML SQ SCH (19:52)
[2025-01-10 20:52] LABS: CREATININE 2.1 mg/dL (0.5-1.3); POTASSIUM 4.2 mmol/L (3.5-5.1)
--- NOTE | 2025-01-10 21:23 | PN ---
endocrinology progress note dos: 01/10/25 subjective: bicarb is improving. he is started on insulin drip for low bicarb and anion gap metabolic acidosis. bicarb is low but improving. glucose was greater than 400 mg/dl and improving now. he is started on iv steroids now. hba1c 8.5% Past Medical History Patient History: Patient reports no known family medical history. ADDITIONAL PAST MEDICAL HISTORY: [Denies any past medical history, fatty liver by CT on 01/05/2025] SOCIAL HISTORY: [Patient smokes one pack of cigarettes daily but only5 times a week. Patient veovrh70 beers daily but also only5 times a week. Patient reports occasional use of both marijuana and cocaine. Patient denies any other illegal drug use. 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 Patient has poor access to health care due to lack of health insurance. Patient is typically independent of all his ADLs. Patient denies difficulty pain is bills. Patient lives with his daughter Hannah Jin] SURGICAL HISTORY: [Heart stent] Review of Systems General: No Fever, No Chills, No Night Sweats, No Fatigue, No Malaise, No Appetite, No Other HEENT: No Head Aches, No Visual Changes, No Eye Pain, No Ear Pain, No Dysphasia, No Sinus Congestion, No Post Nasal Drip, No Sore Throat, No Other Pulmonary: No Dyspnea, No Cough, No Pleuritic Chest Pain, No Other Cardiovascular: No: Chest Pain, Palpitations, Orthopnea, Paroxysmal Noc. Dyspnea, Edema, Lt Headedness, Other Gastrointestinal: No: Nausea, Vomiting, Abdominal Pain, Diarrhea, Constipation, Melena, Hematochezia, Other Genitourinary: No Dysuria, No Frequency, No Incontinence, No Hematuria, No Retention, No Other Musculoskeletal: No: other, neck pain, shoulder pain, arm pain, back pain, hand pain, leg pain, foot pain Skin: No Urticaria, No Rash, No Other Neurological: Weakness; No: Numbness, Incoordination, Change in speech, Confusion, Seizures, Other Allergies: Coded Allergies: No Known Drug Allergies (Unverified Allergy, Unknown, 12/18/15) Scheduled Amlodipine Besylate (Amlodipine Besylate), 5 MG PO DAILY Atorvastatin Calcium (Lipitor), 40 MG PO HS Hydrochlorothiazide (Hydrochlorothiazide), 25 MG PO DAILY Lisinopril (Lisinopril), 20 MG PO DAILY Losartan Potassium (Losartan Potassium), 50 MG PO DAILY Methylprednisolone (Medrol), 4 MG PO AD Tamsulosin HCl (Flomax), 0.4 MG PO DAILY [Aspirin], 325 MG PO DAILY [Prasugrel Hcl], 10 MG PO DAILY Scheduled PRN Ketorolac Tromethamine (Ketorolac Tromethamine), 10 MG PO TID PRN for PAIN ASSESSMENT: DKA-Improving he is on insulin drip for low bicarb and anion gap metabolic acidosis. bicarb is low but improving. glucose was greater than 400 mg/dl and improving now. he is started on iv steroids now. hba1c 8.5% bicarb is low. New onset Uncontrolled Diabetes mellitius type2, POA Severe sepsis, POA Urinary tract infection, POA Strep pharyngitis, POA Leukocytosis, POA Hyperlactatemia, POA Acute kidney injury, POA Thrombocytopenia, POA Elevated troponin, POA Substance abuse, POA, cocaine Alcohol dependence, POA Tobacco dependence, POA PLAN: continue insulin drip per dka protocol keep glucose less than 180 mg/dl monitor glucose qx1 hourly. patient will need insulin at discharge. Vitals/Labs Vital Signs Date Time Temp Pulse Resp B/P (MAP) Pulse Ox O2 Delivery O2 Flow Rate FiO2 01/10/25 20:46 86 19 159/91 100 Room Air 01/10/25 19:46 98.4 01/10/25 19:00 0 21 Laboratory Tests 01/10/25 02:36 01/10/25 06:07 01/10/25 20:27 Medications Current Medications Sodium Chloride 1,000 ml @ 125 mls/hr ONCE ONCE IV Last administered on 01/05/25at 00:13; Start 01/04/25 at 23:00; Stop 01/05/25 at 06:59; Status DC Aspirin 81 mg ONCE ONCE PO Last administered on 01/05/25at 00:14; Start 01/04/25 at 23:00; Stop 01/04/25 at 23:01; Status DC Ondansetron HCl 4 mg ONCE ONCE IVP Last administered on 01/05/25at 00:13; Start 01/04/25 at 23:00; Stop 01/04/25 at 23:01; Status DC Potassium Chloride 100 ml @ 50 mls/hr ONCE ONCE IV Last administered on 01/05/25at 00:13; Start 01/05/25 at 00:00; Stop 01/05/25 at 01:59; Status DC Potassium Chloride 100 ml @ 50 mls/hr ONCE ONCE IV Last administered on 01/05/25at 03:12; Start 01/05/25 at 00:00; Stop 01/05/25 at 01:59; Status DC Thiamine HCl 100 mg ONCE ONCE IVP Last administered on 01/05/25at 01:01; Start 01/05/25 at 00:00; Stop 01/05/25 at 00:01; Status DC Acetaminophen 500 mg STK-MED ONCE .ROUTE; Start 01/05/25 at 00:28; Stop 01/05/25 at 00:28; Status DC Cefepime HCl 1 gm ONCE ONCE IVPB Last administered on 01/05/25at 01:01; Start 01/05/25 at 01:00; Stop 01/05/25 at 01:02; Status DC Vancomycin HCl 750 mg ONCE ONCE IVPB Last administered on 01/05/25at 02:12; Start 01/05/25 at 01:00; Stop 01/05/25 at 01:02; Status DC Sodium Chloride 250 ml ONCE ONCE IVPB Last administered on 01/05/25at 02:12; Start 01/05/25 at 01:00; Stop 01/05/25 at 01:02; Status DC Acetaminophen 1,000 mg ONCE ONCE PO Last administered on 01/05/25at 00:30; Start 01/05/25 at 01:00; Stop 01/05/25 at 01:02; Status DC Aspirin 81 mg DAILY PO; Start 01/05/25 at 09:00; Stop 01/05/25 at 09:53; Status DC Nitroglycerin 0.4 mg AD PRN SL; Start 01/05/25 at 02:30; Stop 02/04/25 at 02:29 Aspirin 162 mg ONCE ONCE PO Last administered on 01/05/25at 03:06; Start 01/05/25 at 02:30; Stop 01/05/25 at 02:31; Status DC Insulin Human Regular INSULIN SLIDING SCAL... ACHS SQ Last administered on 01/05/25at 07:59; Start 01/05/25 at 07:30; Stop 01/05/25 at 09:57; Status DC Lactated Ringer's 3,429 ml @ 1,143 mls/hr ONCE ONCE IV Last administered on 01/05/25at 03:12; Start 01/05/25 at 02:30; Stop 01/05/25 at 05:29; Status DC Piperacillin Sod/ Tazobactam Sod 3.375 gm Q12H IV Last administered on 01/07/25at 02:45; Start 01/05/25 at 02:30; Stop 01/07/25 at 13:24; Status DC Potassium Chloride 100 ml @ 100 mls/hr AD PRN IV; Start 01/05/25 at 02:30; Stop 01/07/25 at 10:12; Status DC Potassium Chloride 10 meq AD PRN PO Last administered on 01/06/25at 17:16; Start 01/05/25 at 02:30; Stop 01/07/25 at 10:12; Status DC Potassium Chloride 10 meq AD PRN PO Last administered on 01/05/25at 22:15; Start 01/05/25 at 02:30; Stop 01/06/25 at 09:12; Status DC Acetaminophen 650 mg Q6H PRN PO Last administered on 01/08/25at 04:21; Start 01/05/25 at 02:30; Stop 02/04/25 at 02:29 Pantoprazole Sodium 40 mg DAILY PO Last administered on 01/10/25at 09:18; Start 01/05/25 at 09:00; Stop 02/04/25 at 08:59 Ondansetron HCl 4 mg Q6H PRN IV; Start 01/05/25 at 02:30; Stop 02/04/25 at 02:29 Morphine Sulfate 2 mg Q4H PRN IVP; Start 01/05/25 at 02:30; Stop 01/12/25 at 02:29 Hydralazine HCl 10 mg Q6H PRN IV; Start 01/05/25 at 02:30; Stop 01/05/25 at 09:53; Status DC Benzocaine 1 each Q4H PRN MM; Start 01/05/25 at 02:30; Stop 02/04/25 at 02:29 Magnesium Sulfate 50 ml @ 0 mls/hr PROTOCOL PRN IV Last administered on 01/05/25at 03:24; Start 01/05/25 at 02:30; Stop 02/04/25 at 02:29 Lactated Ringer's 1,000 ml @ 100 mls/hr Q10H IV Last administered on 01/05/25at 02:30; Start 01/05/25 at 02:30; Stop 01/05/25 at 09:51; Status DC Chlordiazepoxide HCl 25 mg Q8H PO Last administered on 01/10/25at 03:33; Start 01/05/25 at 02:30; Stop 01/12/25 at 02:29 Lorazepam 1 mg Q4H PRN IVP; Start 01/05/25 at 02:30; Stop 01/12/25 at 02:29 Pharmacy Profile Note 1 each PROTOCOL PRN MISC; Start 01/05/25 at 02:30; Stop 01/12/25 at 02:29 Nicotine 21 mg DAILY TD Last administered on 01/10/25at 09:18; Start 01/05/25 at 09:00; Stop 02/04/25 at 08:59 Sodium Chloride 1,000 ml @ 50 mls/hr Q20H IV Last administered on 01/09/25at 05:56; Start 01/05/25 at 10:00; Stop 01/10/25 at 01:33; Status DC Potassium Phosphate 250 ml @ 42 mls/hr PROTOCOL PRN IV; Start 01/05/25 at 10:00; Stop 02/04/25 at 09:59 Hydralazine HCl 5 mg Q6H PRN IV Last administered on 01/10/25at 03:36; Start 01/05/25 at 14:30; Stop 02/04/25 at 14:29 Doxycycline Hyclate 250 ml @ 125 mls/hr Q12H IV Last administered on 01/06/25at 09:30; Start 01/05/25 at 10:00; Stop 01/06/25 at 21:05; Status DC Potassium Chloride 40 meq ONCE ONCE PO Last administered on 01/05/25at 10:25; Start 01/05/25 at 10:00; Stop 01/05/25 at 10:01; Status DC Potassium Chloride 100 ml @ 50 mls/hr ONCE ONCE IV Last administered on 01/05/25at 10:25; Start 01/05/25 at 10:00; Stop 01/05/25 at 11:59; Status DC Dextrose 50 ml AD PRN IV; Start 01/05/25 at 10:00; Stop 02/04/25 at 09:59 Glucagon 1 mg AD PRN IM; Start 01/05/25 at 10:00; Stop 02/04/25 at 09:59 Insulin Human Regular INSULIN SLIDING SCAL... ACHS SQ Last administered on 01/06/25at 11:50; Start 01/05/25 at 11:30; Stop 01/06/25 at 16:43; Status DC Dexamethasone Sodium Phosphate 10 mg ONCE ONCE IVP Last administered on 01/05/25at 17:27; Start 01/05/25 at 13:30; Stop 01/05/25 at 14:03; Status DC Insulin Glargine 20 units HS SQ; Start 01/06/25 at 21:00; Stop 01/06/25 at 21:05; Status DC Potassium Chloride 10 meq AD PRN PO Last administered on 01/08/25at 23:35; Start 01/06/25 at 09:30; Stop 02/04/25 at 02:29 Dexamethasone Sodium Phosphate 40 mg DAILY ONCE IV; Start 01/07/25 at 09:00; Stop 01/06/25 at 13:27; Status DC Dexamethasone Sodium Phosphate 40 mg/Sodium Chloride 50 ml @ 100 mls/hr DAILY IV Last administered on 01/08/25at 09:34; Start 01/06/25 at 14:00; Stop 01/08/25 at 12:16; Status DC Insulin Human Regular INSULIN SLIDING SCAL... ACHS SQ Last administered on 01/06/25at 17:17; Start 01/06/25 at 17:00; Stop 01/07/25 at 13:32; Status DC Insulin Human Regular 100 unit/ Sodium Chloride 100 ml @ 0 mls/hr AD PRN IV Last administered on 01/09/25at 19:10; Start 01/06/25 at 19:30; Stop 01/10/25 at 06:00; Status DC Insulin Glargine 20 units HS SQ Last administered on 01/06/25at 21:33; Start 01/06/25 at 21:30; Stop 01/07/25 at 10:24; Status DC Doxycycline Hyclate 250 ml @ 125 mls/hr Q12H IV Last administered on 01/10/25at 09:19; Start 01/06/25 at 21:30; Stop 01/16/25 at 21:29 Chlordiazepoxide HCl 25 mg STK-MED ONCE .ROUTE; Start 01/07/25 at 02:35; Stop 01/07/25 at 02:41; Status DC Piperacillin Sod/ Tazobactam Sod 50 ml @ As Directed STK-MED ONCE .ROUTE; Start 01/07/25 at 02:39; Stop 01/07/25 at 02:41; Status DC Potassium Chloride 0 ml @ As Directed STK-MED ONCE IV; Start 01/07/25 at 07:28; Stop 01/07/25 at 07:31; Status DC Potassium Chloride 40 meq ONCE ONCE PO Last administered on 01/07/25at 09:44; Start 01/07/25 at 10:00; Stop 01/07/25 at 10:01; Status DC Potassium Chloride 100 ml @ 100 mls/hr AD PRN IV Last administered on 01/09/25at 06:26; Start 01/07/25 at 10:30; Stop 02/06/25 at 10:29 Potassium Chloride 10 meq AD PRN PO Last administered on 01/08/25at 15:28; Start 01/07/25 at 10:30; Stop 02/06/25 at 10:29 Potassium Chloride 10 meq AD PRN PO; Start 01/07/25 at 10:30; Stop 01/07/25 at 10:12; Status DC Insulin Glargine 15 units Q12H SQ Last administered on 01/09/25at 13:10; Start 01/07/25 at 21:30; Stop 01/09/25 at 23:18; Status DC Insulin Glargine 10 units ONCE ONCE SQ Last administered on 01/07/25at 10:40; Start 01/07/25 at 10:30; Stop 01/07/25 at 10:31; Status DC Thiamine HCl 300 mg DAILY ONCE IVP Last administered on 01/07/25at 10:39; Start 01/07/25 at 10:30; Stop 01/07/25 at 10:31; Status DC Multivitamins Therapeutic 1 tab DAILY PO Last administered on 01/10/25at 09:18; Start 01/07/25 at 10:30; Stop 02/06/25 at 10:29 Folic Acid 1 mg DAILY PO Last administered on 01/10/25at 09:18; Start 01/07/25 at 10:30; Stop 02/06/25 at 10:29 Triamcinolone Acetonide 1 APPLY TP BID BID TP Last administered on 01/10/25at 09:21; Start 01/07/25 at 11:00; Stop 02/06/25 at 10:59 Vancomycin HCl 1 each AD IV; Start 01/07/25 at 12:30; Stop 01/07/25 at 12:40; Status DC Cefazolin Sodium 2 gm Q12H IVPB Last administered on 01/10/25at 13:08; Start 01/07/25 at 13:30; Stop 01/24/25 at 21:00 Furosemide 20 mg Q12H IV Last administered on 01/10/25at 19:40; Start 01/07/25 at 16:00; Stop 01/20/25 at 16:00 Calcium Gluconate 1 gm/Sodium Chloride 100 ml @ 0 mls/hr AD PRN IV Last administered on 01/08/25at 23:32; Start 01/08/25 at 02:30; Stop 02/07/25 at 02:29 Dexamethasone Sodium Phosphate 20 mg/Sodium Chloride 52 ml @ 100 mls/hr DAILY IV Last administered on 01/10/25at 09:18; Start 01/09/25 at 09:00; Stop 02/08/25 at 08:59 Insulin Glargine 20 units Q12H SQ; Start 01/10/25 at 09:30; Stop 01/10/25 at 12:58; Status DC Lactated Ringer's 1,000 ml @ 125 mls/hr Q8H IV Last administered on 01/10/25at 13:07; Start 01/10/25 at 01:30; Stop 01/10/25 at 19:40; Status DC Lactated Ringer's 1,000 ml BOLUS ONCE IV Last administered on 01/10/25at 09:20; Start 01/10/25 at 07:30; Stop 01/10/25 at 07:31; Status DC Lidocaine HCl 100 mg STK-MED ONCE .ROUTE; Start 01/10/25 at 08:01; Stop 01/10/25 at 08:02; Status DC Propofol 200 mg STK-MED ONCE IV; Start 01/10/25 at 08:02; Stop 01/10/25 at 08:02; Status DC Glycopyrrolate 1 mg STK-MED ONCE .ROUTE; Start 01/10/25 at 08:02; Stop 01/10/25 at 08:02; Status DC Ketamine HCl 50 mg STK-MED ONCE .ROUTE; Start 01/10/25 at 08:03; Stop 01/10/25 at 08:03; Status DC Insulin Glargine 25 units Q12H SQ; Start 01/10/25 at 21:30; Stop 02/09/25 at 21:29 Insulin Human Regular INSULIN SLIDING SCAL... Q6H6 SQ Last administered on 01/10/25at 19:52; Start 01/10/25 at 18:00; Stop 02/09/25 at 17:59 MAITE RESTREPO MD Jan 10, 2025 21:23
--- NOTE | 2025-01-10 22:04 | PN ---
INFECTIOUS DISEASE FOLLOWUP NOTE DATE OF SERVICE: 01/10/2025 SUBJECTIVE: The patient is seen and examined at bedside today. The patient has no fever, no chills. No nausea, no vomiting, no abdominal pain. No sore throat or rhinorrhea. No rashes or itchiness. The patient remained in ICU. Blood culture remains positive. The patient is scheduled to undergo DRAKE tomorrow. PHYSICAL EXAMINATION: VITAL SIGNS: Temperature 98.6. EYES: No icterus. Pupils equal and reactive. HENT: No oral thrush seen. Moist oral mucosa. NECK: Supple, no JVD or thyromegaly. LUNGS: Good air entry. No rales, no rhonchi. CARDIOVASCULAR: S1, S2 regular. No murmur heard. ABDOMEN: Obese, soft, nontender. Bowel sounds present. CENTRAL NERVOUS SYSTEM: Awake, alert, oriented x 3. No focal deficits. SKIN: No rashes, no itchiness. LYMPHATIC: No peripheral lymphadenopathy. BACK: No deformity, no pressure ulcer. MUSCULOSKELETAL: No joint swelling, erythema or tenderness. ASSESSMENT: A 44-year-old male admitted with fever or chills. CURRENT PROBLEMS: Include: * Staphylococcus aureus bacteremia and sepsis. * Endocarditis. * Urinary tract infection. * Morbid obesity. * Cocaine abuse. * Chronic alcohol use and chronic tobacco use. PLAN: * Continue cefazolin. * Continue critical care support. * Continue doxycycline. * Continue pain management. * Continue antiemetics. * Continue GI prophylaxis. * The patient will follow up closely. TID: [id number] RECEIPT: [id number]
[2025-01-11] VITALS (28 sets, daily range): BP systolic 121–171; BP diastolic 67–97; PULSE 77–99; RESP 12–28; TEMP 97.6–98.1; O2SAT 95–98
[2025-01-11] MEDS: 0.9%NACL 1000ML 1,000 ML IV SCH (01:00)
[2025-01-11 01:38] LABS: ABG OXYGEN SATURATION 81.5 % (94.0-98.0); BASE EXCESS,VENOUS BLOOD GAS -18.6 (-2.0-3.0); DEVICE COMMENT VENOUS; HCO3,VENOUS BLOOD GAS 6.6 (22.0-29.0); PCO2,VENOUS BLOOD GAS 15 (38-54); PH,VENOUS BLOOD GAS 7.269 (7.320-7.430); PO2,VENOUS BLOOD GAS 52.2 mmHg (23.0-48.0); VENT MODE, BG RA (ROOM AIR)
[2025-01-11] MEDS: INSULIN humuLIN R 100 UNIT/ML 3ML SQ SCH ×2 (02:00→07:30)
[2025-01-11 02:13] LABS: CREATININE 1.8 mg/dL (0.5-1.3); POTASSIUM 3.8 mmol/L (3.5-5.1)
[2025-01-11 03:14] LABS: ABG BASE EXCESS -5.7 mmol/L (-2.0-3.0); ABG HCO3 15.3 mmol/L (21.0-28.0); ABG OXYGEN SATURATION 97.6 % (94.0-98.0); ABG PCO2 21 mmHg (35-48); ABG PH 7.475 (7.350-7.450); CARBON MONOXIDE 1.1 % (0.5-1.5); DEVICE COMMENT RR; HHb 2.4; PO2, ARTERIAL BG 99.6 mmHg (83.0-108.0); VENT MODE, BG RA (ROOM AIR)
[2025-01-11 05:28] LABS: BASOPHILS # (AUTO) 0.01 K/uL (0.00-0.20); BASOPHILS % (AUTO) 0.1 % (0.0-5.0); EOSINOPHILS # (AUTO) 0.06 K/uL (0.00-0.70); EOSINOPHILS % (AUTO) 0.5 % (0.0-8.0); HEMATOCRIT 43.3 % (42-54); IMMATURE GRANULOCYTE ABSOLUTE 0.18 K/uL (0-1); LYMPHOCYTES % (AUTO) 8.1 % (21.0-51.0); MEAN CORPUSCULAR HEMOGLOBIN 32.1 pg (27.0-33.0); MEAN CORPUSCULAR HGB CONC 34.6 g/dL (32.0-36.0); MEAN CORPUSCULAR VOLUME 92.7 fL (79-99); MONOCYTES # (AUTO) 0.8 K/uL (0.1-1.0); MONOCYTES % (AUTO) 6.2 % (3.0-13.0); NEUTROPHILS # (AUTO) 10.5 K/uL (1.8-7.7); NEUTROPHILS % (AUTO) 83.7 % (40.0-77.0); PLATELET COUNT (AUTO) 113 K/uL (130-400); RED BLOOD CELL COUNT(AUTO) 4.67 MIL/uL (4.50-6.20); RED CELL DISTRIBUTION WIDTH 13.8 % (11.0-15.5); WHITE BLOOD COUNT (AUTO) 12.5 K/uL (4.8-10.8)
[2025-01-11 05:42] LABS: INR 1.12 (0.85-1.15); PROTHROMBIN TIME 12.4 SEC (9.6-11.6)
[2025-01-11 05:48] LABS: BILIRUBIN,TOTAL 1.4 mg/dL (0.2-1.0); CREATININE 1.6 mg/dL (0.5-1.3); POTASSIUM 3.7 mmol/L (3.5-5.1); TOTAL PROTEIN, SERUM 6.3 g/dL (6.0-8.3)
[2025-01-11] MEDS ORDERED: proPOFol 10 MG/ML 20ML VIAL IV ONE (07:00)
[2025-01-11] MEDS ORDERED: ATROPINE 1MG SYG IVP ONE (07:00)
[2025-01-11] MEDS ORDERED: SUCCINYLCHOLINE CHLORIDE 20 MG/ML 10 ML VIAL ONE (07:00)
[2025-01-11] MEDS ORDERED: LIDOCAINE PF 100MG/5ML (2%) SYRINGE 5ML ONE (07:00)
[2025-01-11] MEDS ORDERED: ketaMINE 50MG/ML SYRINGE 50 MG/ML DISP.SYRIN ONE (07:00)
[2025-01-11] MEDS ORDERED: phenylEPHRINE HCL 10 MG/ML 1ML VIAL IV ONE (07:01)
[2025-01-11] MEDS ORDERED: GLYCOPYRROLATE 0.2 MG/ML 5 ML VIAL ONE (07:01)
[2025-01-11] MEDS ORDERED: 0.9%NACL 10ML VIAL ONE (07:01)
[2025-01-11] MEDS ORDERED: MIDAZOLAM HCL 1 MG/ML 2ML VIAL ONE (07:08)
[2025-01-11] MEDS ORDERED: ondanSETRON 4MG INJ ONE (07:34)
--- NOTE | 2025-01-11 07:55 | PN ---
[facility] CARDIOLOGY PROGRESS NOTE Date Patient Seen: Jan 11, 2025 Time of Visit: 07:52 Interval History: [Platelets improved. DRAKE with 1.1 cm aortic valve vegetation and KARINA thrombus.] EGD with werner esophagitis Physical Examination: GENERAL: [No acute distress.] HEAD: [Normal with no signs of head trauma.] EYES: [PERRLA, EOMI, conjunctiva and sclera normal.] ENT: [Hearing grossly intact, normal oropharynx.] NECK: [Supple without JVD. There is no tenderness, lymphadenopathy, or masses. No thyromegaly. Normal carotid upstrokes without bruits.] LUNGS: [Clear breath sounds bilaterally. There are right basilar rales one third of the way up the chest. No wheezes, or rhonchi.] HEART: [Normal rate and rhythm. Normal S1 and S2 without mumurs, gallop or rub.] VASC: [Peripheral pulses +2 bilaterally.] ABD: [Bowel sounds normal, soft, nontender, no masses, no organomegaly. No audible bruits.] : [Not examined] LYMPH: [No lymphadenopathy noted.] EXT: [No clubbing, cyanosis or edema.] SKIN: [No rashes or lesions noted.] NEURO: [Awake, alert, and oriented x3. No focal sensory or strength deficits noted.] Laboratory: [ ] Hematology Labs: Test 01/11/25 04:59 Range/Units White Blood Count 12.5 H 4.8-10.8 K/uL Red Blood Count 4.67 4.50-6.20 MIL/uL Hemoglobin 15.0 # 14.0-18.0 g/dL Hematocrit 43.3 # 42-54 % Mean Corpuscular Volume 92.7 79-99 fL Mean Corpuscular Hemoglobin 32.1 27.0-33.0 pg Mean Corpuscular Hemoglobin Concent 34.6 32.0-36.0 g/dL Red Cell Distribution Width 13.8 11.0-15.5 % Platelet Count 113 #L 130-400 K/uL Mean Platelet Volume 11.4 H 7.5-10.5 fL Immature Granulocyte % (Auto) 1.4 H 0-1 % Neutrophils (%) (Auto) 83.7 H 40.0-77.0 % Lymphocytes (%) (Auto) 8.1 L 21.0-51.0 % Monocytes (%) (Auto) 6.2 3.0-13.0 % Eosinophils (%) (Auto) 0.5 0.0-8.0 % Basophils (%) (Auto) 0.1 0.0-5.0 % Neutrophils # (Auto) 10.5 H 1.8-7.7 K/uL Lymphocytes # (Auto) 1.0 1.0-4.8 K/uL Monocytes # (Auto) 0.8 0.1-1.0 K/uL Eosinophils # (Auto) 0.06 0.00-0.70 K/uL Basophils # (Auto) 0.01 0.00-0.20 K/uL Absolute Immature Granulocyte (auto 0.18 0-1 K/uL Nucleated Red Blood Cells 0.0 0.0-0.19 % Chemistry Labs: Test 01/11/25 05:54 01/11/25 04:59 01/10/25 11:10 01/09/25 20:35 Range/Units Whole Blood Glucose 114 H 70-110 MG/DL Sodium Level 142 136-145 mmol/L Potassium Level 3.7 3.5-5.1 mmol/L Chloride Level 114 H 101-111 mmol/L Carbon Dioxide Level 17 L 21-32 mmol/L Blood Urea Nitrogen 58 H 7-18 mg/dL Creatinine 1.6 H 0.5-1.3 mg/dL Glomerular Filtration Rate Calc 54 >90 mL/min Random Glucose 132 H 70-105 mg/dL Total Calcium 7.1 L 8.5-10.1 mg/dL Total Bilirubin 1.4 H 0.2-1.0 mg/dL Aspartate Amino Transf (AST/SGOT) 17 10-37 U/L Alanine Aminotransferase (ALT/SGPT) 29 12-78 U/L Alkaline Phosphatase 103 50-136 U/L Total Protein 6.3 6.0-8.3 g/dL Albumin 2.0 L 3.5-5.0 g/dL Lactic Acid Level 1.8 0.8-2.5 mmol/L Magnesium Level 2.00 1.80-2.40 mg/dL Coagulation Labs: Test 01/11/25 04:59 01/10/25 02:36 Range/Units Prothrombin Time 12.4 H 9.6-11.6 SEC Prothromb Time International Ratio 1.12 0.85-1.15 Activated Partial Thromboplast Time 31.0 26.3-35.5 SEC Diagnostics / Radiology: [Copy/Paste Echos/Imaging Report here] Impression and Plan: [ Aortic valve endocarditis with mobile vegetation in the right coronary cusp of the aortic valve by 2D echocardiogram 01/05/2025 and confirmed by DRAKE 01/11: Staph aureus in 2/2 sets of blood cultures 01/05/2025: -Infectious Disease has adjusted antibiotic therapy -MSSA bacteremia on repeat blood cultures -Aortic valve vegetation measuring 1.1 cm, consulted CV surgery KARINA thrombus seen on DRAKE -recommend anticoagulation recs from Dr Ortiz Thrombocytopenia with platelet count falling to 21,000 on 01/05/2025, now improving to 113k: -Dr. 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 EVANS FLORES MD Jan 11, 2025 07:55
[2025-01-11 08:55] LABS: CREATININE 1.8 mg/dL (0.5-1.3)
--- NOTE | 2025-01-11 09:47 | PN ---
[facility] PROGRESS NOTE Date Patient Seen: Jan 11, 2025 Time of Visit: 09:47 Supervising Physician: Bonifacio Dumont MD Primary Care Physician: Help Desk Specialist PCP Outpatient Specialists: [ ] Inpatient Consults:Critical care, Hematology, cardiology and nephrology PROBLEM LIST: Endocarditis POA DRAKE on 01/11/25 with 1.1 cm aortic valve vegetation and KARINA thrombus Severe sepsis and shock POA, resolving Fidelina Esophagitis per EGD results 01/11/25 Urinary tract infection, POA Klebsiella pneumoniae cultured in the urine Staph aureus bacteremia POA Strep pharyngitis, POA Acute kidney injury, POA improving Electrolyte derangement POA ( hypokalemia, Hyponatremia) 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 Uncontrolled Diabetes mellitius type2, POA HgA1C 8.5 NTEMI Type II CO POA PolySubstance abuse, POA, (cocaine/Marijuana) Alcohol dependence, POA Tobacco dependence, POA Acute cholecystitis on HIDA scan 01/07/25 POA Hepatomegaly with hepato steatosis MELD score on admission of 31 Morbid obesity Noncompliance behavior INTERVAL HISTORY: 01/11/25- patient is awake alert and oriented x3. Post EGD and DRAKE found to have vegetation in the aortic valve and thrombus in the KARINA, and LVEF of 60- 65%.. Per Hematology started heparin gtt per protocol today. For now patient is hemodynamically stable afebrile heart rate in the 80s respiratory rate of 18 saturating 99% on room air. Patient has a urine output of 4.4 L last night and a balance of-2.2 L. He had 2 bowel movements this morning. Pt continues with ancef IV for MSSA endocarditis. He will need at least 6 weeks of IV abx. WBCs are 12.5 H&H is normal platelet count is 113 K. sodium 145 potassium of 4 carbon dioxide of 22 BUN 59 creatinine 1.8 and GFR of 47 glucose of 102 mg/dL. Patient is stable downgrade from ICU to PCCU. REVIEW OF SYSTEMS: 12 point ROS reviewed with patient. Pertinent positives mentioned above. Otherwise negative. PHYSICAL EXAM: GENERAL: alert, weak, awake oriented x 3 HEENT: EOMI, Sclera non icteric, moist mucosa NECK: Supple, no JVD, trachea midline LUNGS: Clear breath sounds bilaterally. No wheezes HEART: Regular rate and rhythm. Normal S1 and S2, without murmurs ABD: Abdomen soft, nontender. Bowel sounds present EXT: No clubbing cyanosis or edema NEURO: Alert and oriented to person, follows commands Vital Signs (last 8hr) Date Time Temp Pulse Resp B/P (MAP) Pulse Ox O2 Delivery O2 Flow Rate FiO2 01/11/25 05:46 85 24 154/93 100 Room Air 01/11/25 05:33 92 25 159/96 100 Room Air 01/11/25 05:16 95 24 145/87 99 Room Air 01/11/25 04:46 85 24 137/85 99 Room Air 01/11/25 04:17 97.9 84 19 153/87 100 Room Air 01/11/25 04:17 84 19 153/87 100 01/11/25 04:00 98 Room Air* 0 21 01/11/25 03:47 77 22 165/93 100 Room Air 01/11/25 03:17 93 25 165/87 100 Room Air 01/11/25 02:47 87 26 159/85 99 Room Air 01/11/25 02:17 85 19 151/92 99 Room Air 01/11/25 01:48 87 22 171/74 99 Room Air LABS: Hematology Labs: Test 01/11/25 04:59 Range/Units White Blood Count 12.5 H 4.8-10.8 K/uL Red Blood Count 4.67 4.50-6.20 MIL/uL Hemoglobin 15.0 # 14.0-18.0 g/dL Hematocrit 43.3 # 42-54 % Mean Corpuscular Volume 92.7 79-99 fL Mean Corpuscular Hemoglobin 32.1 27.0-33.0 pg Mean Corpuscular Hemoglobin Concent 34.6 32.0-36.0 g/dL Red Cell Distribution Width 13.8 11.0-15.5 % Platelet Count 113 #L 130-400 K/uL Mean Platelet Volume 11.4 H 7.5-10.5 fL Immature Granulocyte % (Auto) 1.4 H 0-1 % Neutrophils (%) (Auto) 83.7 H 40.0-77.0 % Lymphocytes (%) (Auto) 8.1 L 21.0-51.0 % Monocytes (%) (Auto) 6.2 3.0-13.0 % Eosinophils (%) (Auto) 0.5 0.0-8.0 % Basophils (%) (Auto) 0.1 0.0-5.0 % Neutrophils # (Auto) 10.5 H 1.8-7.7 K/uL Lymphocytes # (Auto) 1.0 1.0-4.8 K/uL Monocytes # (Auto) 0.8 0.1-1.0 K/uL Eosinophils # (Auto) 0.06 0.00-0.70 K/uL Basophils # (Auto) 0.01 0.00-0.20 K/uL Absolute Immature Granulocyte (auto 0.18 0-1 K/uL Nucleated Red Blood Cells 0.0 0.0-0.19 % Chemistry Labs: Test 01/11/25 09:05 01/11/25 08:18 01/11/25 04:59 01/10/25 11:10 Range/Units Whole Blood Glucose 115 H 70-110 MG/DL Sodium Level 145 136-145 mmol/L Potassium Level 4.0 3.5-5.1 mmol/L Chloride Level 114 H 101-111 mmol/L Carbon Dioxide Level 22 21-32 mmol/L Blood Urea Nitrogen 59 H 7-18 mg/dL Creatinine 1.8 H 0.5-1.3 mg/dL Glomerular Filtration Rate Calc 47 >90 mL/min Random Glucose 102 70-105 mg/dL Total Calcium 7.2 L 8.5-10.1 mg/dL Total Bilirubin 1.4 H 0.2-1.0 mg/dL Aspartate Amino Transf (AST/SGOT) 17 10-37 U/L Alanine Aminotransferase (ALT/SGPT) 29 12-78 U/L Alkaline Phosphatase 103 50-136 U/L Total Protein 6.3 6.0-8.3 g/dL Albumin 2.0 L 3.5-5.0 g/dL Lactic Acid Level 1.8 0.8-2.5 mmol/L Test 01/09/25 20:35 Range/Units Magnesium Level 2.00 1.80-2.40 mg/dL Coagulation Labs: Test 01/11/25 04:59 01/10/25 02:36 Range/Units Prothrombin Time 12.4 H 9.6-11.6 SEC Prothromb Time International Ratio 1.12 0.85-1.15 Activated Partial Thromboplast Time 31.0 26.3-35.5 SEC DIAGNOSTICS / RADIOLOGY RESULTS: Signed PATIENT: ADAM MOE III MR#: [id number] : 1980 SEX: M AGE: 44 LOCATION: [facility] ORDER [id number] STATUS: ADM IN REPORT#: [id number] SERVICE REASON: ASSESS for endorcarditis ORDERING PHYSICIAN: EVANS HILARIO MD PROCEDURE: ECHO DRAKE - ECHO DRAKE--TRANSESOPHAGEAL APPROVED REPORT EXAM: Transesophageal echocardiogram with color flow Doppler. INDICATION ICD: Endocarditis Reason For Test : Rule out endocarditis. PROCEDURE After obtaining informed consent, patient underwent transesophageal echo in the GI LAB Type of Sedation: General Anesthesia Sedation was administered by Please refer to medication administration record. . Sedation was achieved with Please refer to medication administration record. intravenously. Transesophageal probe was inserted and advanced into esophagus without di fficulty by Evans Hilario MD. DRAKE was performed and images were obtained, probe was removed without complications. Throughout the procedure, the blood pressure, pulse oximetry, cardiac rhythm, and rate were monitored. Left Ventricle Left ventricular cavity is normal. There is mild asymetrical left ventricular wall thickness. LVEF is 60-65%. No left ventricle thrombus noted on this study. Right Ventricle The right ventricle is severely dilated. The right ventricular systolic function is normal. Atria Left atrial appendage clot present. The left atrium size is normal. There is no mass or thrombus suspected in the left atrium. No evidence of PFO/ASD by color doppler. The right atrium size is normal. There is no mass or thrombus suspected in the right atrium. Aortic Valve Aortic valve is trileaflet and open well. Non coronary cusp leaflet has vegetation that measures 1.81cm x 1.17cm. No aortic regurgitation is present. There is no aortic valvular stenosis. Mitral Valve The mitral valve is normal in structure and function. There is mild mitral valve regurgitation noted. No mitral valve vegetation. There is no mitral valve stenosis. Tricuspid Valve The tricuspid valve is normal in structure and function. There is no tricuspid valve regurgitation noted. No tricuspid valve vegetation. Pulmonic Valve The pulmonary valve is normal in structure and function. There is no pulmonic valvular regurgitation. No pulmonic valve vegetation. Great Vessels The aortic root is normal in size. Ascending aorta appers normal in size. Descending aorta appears normal in size. Pericardium The pericardium appears normal. Conclusion Left ventricular cavity is normal. There is mild asymetrical left ventricular wall thickness. LVEF is 60-65%. No left ventricle thrombus noted on this study. The right ventricle is severely dilated. The right ventricular systolic function is normal. Left atrial appendage clot present. The left atrium size is normal. There is no mass or thrombus suspected in the left atrium. The right atrium size is normal. There is no mass or thrombus suspected in the right atrium. No evidence of PFO/ASD by color doppler. Aortic valve is trileaflet and open well. Non coronary cusp leaflet has vegetation that measures 1.81cm x 1.17cm. No aortic regurgitation is present. There is no aortic valvular stenosis. There is mild mitral valve regurgitation noted. No mitral valve vegetation. No tricuspid valve vegetation. No pulmonic valve vegetation. DICTATED BY: EVANS HILARIO MD DATE: 01/11/25 0649 ELECTRONICALLY SIGNED BY: EVANS HILARIO MD DATE: 01/11/25 1059 PLAN continue high dose ISS q4 hrs and increase lantus to 30 units sq bid will need to Continue IV antibiotics for at least 6 weeks Heparin gtt per protocol ok per hematology Decadron for suspected ITP managed by hematology ' ABX per ID Frequent neuro checks high risk for a stroke tele monitoring monitor for bleeding NEURO: Minimize central acting medications as possible. Fall Precautions. Well lighted room through the day and minimize interruptions through the night to prevent acute delirium. PULMONARY: Supplemental 02 as needed Titrate Fio2 to keep Spo2 > or = 90% DuoNebs and CPT as needed IS hourly while awake for pulmonary hygiene Out of bed to chair as tolerated VAP Bundle CARDIOVASCULAR: Follow hemodynamics. Titrate vasopressor to keep MAP >65 or systolic blood pressure >95mmHg DIPS: None LINES: PIV's GI & NUTRITION: Continue nutritional support Aspirations precautions Prokinetic agents and laxatives as needed KIDNEYS & ELECTROLYTES: Strict monitoring of intake and output Daily weights Avoid nephrotoxic agents Monitor electrolytes and replace as needed Goal urine output of 30mL/hr or 0.5mL/kg/hr ENDOCRINE: Maintain blood glucose between 100-180 at all times. Insulin sliding scale for blood glucose management INFECTIOUS DISEASE: Trend temperature. Mccormack-culture if febrile. Micro: [ ] Blood cultures for dates 01/05/25 , 01/07/28 MSSA blood cultures for 01/09/25 Gram-positive cocci in clusters one of two Urine culture 03/24/25 Klebsiella pneumoniae Antibiotics: Ancef IV HEMATOLOGY & COAGULATION: Monitor H&H. Keep Hgb > 7 Transfuse 1 unit of PRBC for Hgb < 7 Transfuse 1 pack of platelets of platelets < 20, 000 Watch for any signs and symptoms of bleeding SKIN: Pressure ulcer prevention per facility protocol Rehab: PT/OT Prophylaxis: GI: Protonix DVT: SCD on heparin gtt Code Status: Full Resuscitation Disposition: PCCU Other: Total patient care time exceeds 35 minutes excluding all procedures. Case was discussed and seen with my supervising physician. The above plan was formulated and agreed upon. JO DAVID Jan 11, 2025 09:47
[2025-01-11] MEDS: SODIUM BICARBONATE 650 MG TAB PO SCH (10:33)
[2025-01-11] MEDS: INSULIN GLARgine 100 UNITS/ML 10 ML VIAL SQ SCH (10:50)
--- NOTE | 2025-01-11 10:53 | HMCSR ---
APPROVED REPORT EXAM: Transesophageal echocardiogram with color flow Doppler. INDICATION ICD: Endocarditis Reason For Test : Rule out endocarditis. PROCEDURE After obtaining informed consent, patient underwent transesophageal echo in the GI LAB Type of Sedation: General Anesthesia Sedation was administered by Please refer to medication administration record. . Sedation was achieved with Please refer to medication administration record. intravenously. Transesophageal probe was inserted and advanced into esophagus without difficulty by Anna Hilario MD. DRAKE was performed and images were obtained, probe was removed without complications. Throughout the procedure, the blood pressure, pulse oximetry, cardiac rhythm, and rate were monitored . Left Ventricle Left ventricular cavity is normal. There is mild asymetrical left ventricular wall thickness. LVEF is 60-65%. No left ventricle thrombus noted on this study. Right Ventricle The right ventricle is severely dilated. The right ventricular systolic function is normal. Atria Left atrial appendage clot present. The left atrium size is normal. There is no mass or thrombus susp ected in the left atrium. No evidence of PFO/ASD by color doppler. The right atrium size is normal. T here is no mass or thrombus suspected in the right atrium. Aortic Valve Aortic valve is trileaflet and open well. Non coronary cusp leaflet has vegetation that measures 1.81 cm x 1.17cm. No aortic regurgitation is present. There is no aortic valvular stenosis. Mitral Valve The mitral valve is normal in structure and function. There is mild mitral valve regurgitation noted. No mitral valve vegetation. There is no mitral valve stenosis. Tricuspid Valve The tricuspid valve is normal in structure and function. There is no tricuspid valve regurgitation no anabella. No tricuspid valve vegetation. Pulmonic Valve The pulmonary valve is normal in structure and function. There is no pulmonic valvular regurgitation. No pulmonic valve vegetation. Great Vessels The aortic root is normal in size. Ascending aorta appers normal in size. Descending aorta appears no rmal in size. Pericardium The pericardium appears normal. Conclusion Left ventricular cavity is normal. There is mild asymetrical left ventricular wall thickness. LVEF is 60-65%. No left ventricle thrombus noted on this study. The right ventricle is severely dilated. The right ventricular systolic function is normal. Left atrial appendage clot present. The left atrium size is normal. There is no mass or thrombus suspected in the left atrium. The right atrium size is normal. There is no mass or thrombus suspected in the right atrium. No evidence of PFO/ASD by color doppler. Aortic valve is trileaflet and open well. Non coronary cusp leaflet has vegetation that measures 1.81 cm x 1.17cm. No aortic regurgitation is present. There is no aortic valvular stenosis. There is mild mitral valve regurgitation noted. No mitral valve vegetation. No tricuspid valve vegetation. No pulmonic valve vegetation.
--- NOTE | 2025-01-11 11:54 | PN ---
[facility] PROGRESS NOTE Date of Service: Jan 11, 2025 Time of Service: 11:47 SUBJECTIVE: [ ] The patient has been seen and examined at bedside, no acute events overnight, the patient is comfortable, cooperating well, alert oriented x3, he is on a CIWA protocol, not combative. BP 123/70, rest of vital signs unremarkable. Patient received transfusion of 1 unit of platelet, platelet count improved to 27, per circuit court judge, likely due to splenomegaly. Echocardiogram reviewed, hypodense echogenic mobile vegetation to right coronary cusp leaflet, per cardiology once platelet count is greater than 50 1000 we will proceed with a a DRAKE. The pa tient also with a elevated blood sugar, continue insulin sliding scale, add insulin glargine 20 units subcutaneously at bedtime. Continue the patient on broad-spectrum IV antibiotics, continue to trend WBC in a.m.. 01/07 patient is seen and examined at bedside, case discussed with the RN, patient upgraded last night to the ICU to start insulin drip as blood glucose per sistently greater than 400. Patient started on dexamethasone IV by circuit court judge do to ITP. Platelet count slightly better today at 41. Upon my initial encounter with the patient admitted that he drinks more than 18 beers per day. He was started on CIWA protocol, however has remained hemodynamically stable, comfortable in bed, no signs of withdrawal, cooperating fine. Not agitated, not combative. Toxicology screen positive for cocaine. Sodium level slowly improvi ng, today 132. Serology positive for influenza type A. The patient with significant proteinuria consistent with diabetic nephropathy, creatinine slowly trending down, no need for renal replacement therapy per 3d artist. Patient with blood culture positive for Staphylococcus aureus, with urine culture positive for Klebsiella pneumoniae. We will add vancomycin IV pharmacy to dose. We will request Infectious Disease consultation. Echocardiogram reviewed, hypodense echogenic mobile vegetation to right coronary cusp leaflet, per cardiology once platelet count is greater than 50 1000 we will proceed with a a DRAKE. CT abdomen with gallstones in the gallbladder. HIDA scan pending 01/08 patient seen at bedside, no acute events overnight. He continues on insulin drip with an anion gap of 14, we will continue until the gap is closed. P latelets 54, we will follow up with Cardiology on optimal timing for DRAKE. Continue with IV antibiotics, further care per critical Care. 2/10 patient seen at bedside, no acute events overnight. Anion gap is still open at 14, we will continue IV insulin. Platelets improved from 54 up to 71, CO2 decreased from 17 down to 15. Cardiology planning on DRAKE today, we will follow up postprocedure. Repeat blood cultures are positive for Gram-positive organisms which further supports underlying endocarditis. Continue with IV antibiotics, appreciate Infectious Disease recommendations. He has been afebrile, hemodynamically stable saturating well on room air. WBC increased from 12.8 up to 13.6, BUN decreased from 93 down to 90, creatinine decreased from 2.5 down to 2.3, remainder of his labs are relatively unremarkable. 2/ Pt seen at bedside, no acute events overnight. Pt with anion gap of 14, CO2 still low at 16. Repeat lactic acid was ordered, elevated at 4.8, will bolus patient and continue with IV fluids. DRAKE was rescheduled to today, will follow up with results.WBC improved from 13.6 down to 11.7, Hgb decreased from 15.1 down to 12.4, platelets decreased from 71 down to 66, this substantial decrease in all cell lines suggests hemodilution, creatinine decreased from 2.2 down to 1.4, also likely falsely depressed. 2/12 Pt seen at bedside, no acute events overnight. Pending EGD to assess for esophageal varices and DRAKE today, will follow up post procedure. Yesterday repeat lactic acid was elevated at 4.8, the patient was bolused and it improved down to 1.3. He has been afebrile, hemodynamically stable, saturating well on room air. WBC increased from 11.7 up to 12.5, platelets improved from 66 up to 113, creatinine increased from 1.6 up to 1.8, CO2 improved from 17 up to 22 after patient was started on bicarb. Third set of blood cultures growing gram positive organisms REVIEW OF SYSTEMS 12 point review of systems negative unless noted in HPI PHYSICAL EXAM GENERAL APPEARANCE: The patient is awake, alert, and oriented, in no acute cardiopulmonary distress. NEUROLOGICAL: Cranial nerves II-XII grossly intact. Motor is 5/5 in bilateral upper and lower extremities proximal to distal. No sensory deficits. HEENT: Face is symmetric. Pupils are equal and reactive. Extraocular movements are intact. NECK: Supple. No JVD. No thyromegaly. No submental, submandibular, pre- /postauricular, occipital or supraclavicular lymphadenopathy. CHEST: Normal chest expansion. No Telemetry. LUNGS: Absence of any rales, rhonchi or any wheezing. CARDIOVASCULAR: Regular. S1 and S2 normal. No appreciable rubs, murmurs or ga llops. ABDOMEN: Soft, nontender, and nondistended. There is no rebound, voluntary guarding, or rigidity. : Deferred. No Ortega. EXTREMITIES: Non-edematous and not cyanotic. No clubbing. Good capillary refill. SKIN: No skin breakdown. Vital Signs (last 8hr) Date Time Temp Pulse Resp B/P (MAP) Pulse Ox O2 Delivery O2 Flow Rate FiO2 01/11/25 10:00 91 20 122/81 97 01/11/25 09:30 88 19 131/83 98 01/11/25 09:00 91 18 136/83 99 01/11/25 08:30 94 19 145/94 98 Room Air 01/11/25 08:15 97.5 96 20 132/90 99 Room Air 01/11/25 08:00 99 12 138/83 98 Room Air 01/11/25 07:45 93 28 135/85 96 Room Air 01/11/25 05:46 85 24 154/93 100 Room Air 01/11/25 05:33 92 25 159/96 100 Room Air 01/11/25 05:16 95 24 145/87 99 Room Air 01/11/25 04:46 85 24 137/85 99 Room Air 01/11/25 04:17 97.9 84 19 153/87 100 Room Air 01/11/25 04:17 84 19 153/87 100 01/11/25 04:00 98 Room Air* 0 21 LABS: Laboratory: Test 01/11/25 10:46 01/11/25 08:18 01/11/25 04:59 01/11/25 03:13 Range/Units Whole Blood Glucose 117 H 70-110 MG/DL Sodium Level 145 136-145 mmol/L Potassium Level 4.0 3.5-5.1 mmol/L Chloride Level 114 H 101-111 mmol/L Carbon Dioxide Level 22 21-32 mmol/L Blood Urea Nitrogen 59 H 7-18 mg/dL Creatinine 1.8 H 0.5-1.3 mg/dL Glomerular Filtration Rate Calc 47 >90 mL/min Random Glucose 102 70-105 mg/dL Total Calcium 7.2 L 8.5-10.1 mg/dL White Blood Count 12.5 H 4.8-10.8 K/uL Red Blood Count 4.67 4.50-6.20 MIL/uL Hemoglobin 15.0 # 14.0-18.0 g/dL Hematocrit 43.3 # 42-54 % Mean Corpuscular Volume 92.7 79-99 fL Mean Corpuscular Hemoglobin 32.1 27.0-33.0 pg Mean Corpuscular Hemoglobin Concent 34.6 32.0-36.0 g/dL Red Cell Distribution Width 13.8 11.0-15.5 % Platelet Count 113 #L 130-400 K/uL Mean Platelet Volume 11.4 H 7.5-10.5 fL Immature Granulocyte % (Auto) 1.4 H 0-1 % Neutrophils (%) (Auto) 83.7 H 40.0-77.0 % Lymphocytes (%) (Auto) 8.1 L 21.0-51.0 % Monocytes (%) (Auto) 6.2 3.0-13.0 % Eosinophils (%) (Auto) 0.5 0.0-8.0 % Basophils (%) (Auto) 0.1 0.0-5.0 % Neutrophils # (Auto) 10.5 H 1.8-7.7 K/uL Lymphocytes # (Auto) 1.0 1.0-4.8 K/uL Monocytes # (Auto) 0.8 0.1-1.0 K/uL Eosinophils # (Auto) 0.06 0.00-0.70 K/uL Basophils # (Auto) 0.01 0.00-0.20 K/uL Absolute Immature Granulocyte (auto 0.18 0-1 K/uL Nucleated Red Blood Cells 0.0 0.0-0.19 % Prothrombin Time 12.4 H 9.6-11.6 SEC Prothromb Time International Ratio 1.12 0.85-1.15 Total Bilirubin 1.4 H 0.2-1.0 mg/dL Aspartate Amino Transf (AST/SGOT) 17 10-37 U/L Alanine Aminotransferase (ALT/SGPT) 29 12-78 U/L Alkaline Phosphatase 103 50-136 U/L Total Protein 6.3 6.0-8.3 g/dL Albumin 2.0 L 3.5-5.0 g/dL Blood Gas Specimen Type Arterial Arterial Blood pH 7.475 H 7.350-7.450 Arterial Blood Partial Pressure CO2 21 L 35-48 mmHg Arterial Blood Partial Pressure O2 99.6 83.0-108.0 mmHg Arterial Blood HCO3 15.3 L 21.0-28.0 mmol/L Arterial Blood Oxygen Saturation 97.6 94.0-98.0 % Arterial Blood Base Excess -5.7 L -2.0-3.0 mmol/L Hemoglobin (Blood Gas) 15.7 13.5-17.5 g/dL Sodium (Blood Gas) 142 136-145 MMOL/L Bedside Potassium (Blood Gas) 3.8 3.4-4.5 MMOL/L Bedside Chloride (Blood Gas) 114 H 98-107 MMOL/L Bedside Glucose (Blood Gas) 163 H 65-95 MG/DL Bedside Ionized Calcium (Blood Gas) 1.10 L 1.15-1.33 MMOL/L Bedside Lactic Acid (Blood Gas) 1.62 H 0.36-0.75 MMOL/L Blood Gas Temperature 37.0 35.5-37.0 CELSIUS Blood Gas Vent Mode RA ROOM AIR FiO2 21.0 % Blood Gas Specimen Comment RR Test 01/11/25 01:36 01/10/25 11:10 01/10/25 02:36 01/09/25 20:35 Range/Units Venous Blood pH 7.269 L 7.320-7.430 Venous Blood pCO2 at Patient Temp 15 *L 38-54 Venous Blood pO2 at Patient Temp 52.2 H 23.0-48.0 mmHg Venous Blood HCO3 6.6 L 22.0-29.0 Venous Blood Base Excess -18.6 L -2.0-3.0 Venous Blood Total Hemoglobin 6.4 #*L 13.5-17.5 Lactic Acid Level 1.8 0.8-2.5 mmol/L Activated Partial Thromboplast Time 31.0 26.3-35.5 SEC Magnesium Level 2.00 1.80-2.40 mg/dL Test 01/09/25 15:20 Range/Units HIV (1&2) Antibody Non-Reactive Negative HIV P24 Antigen, Qualitative Non-Reactive Negative Current Medications Medications (Trade) Dose Ordered Sig/Asya Route PRN Reason Start Time Stop Time Status Last Admin Dose Admin Acetaminophen (TYLenol 325MG TAB) 650 mg Q6H PRN PO TEMPERATURE GREATER THAN 101.5 01/05/25 02:30 02/04/25 02:29 01/08/25 04:21 650 MG Aspirin (Aspirin 81mg Chew Tab) 81 mg DAILY PO 01/05/25 09:00 01/05/25 09:53 DC Benzocaine (Cepacol Sore Throat Lozenge) 1 each Q4H PRN MM SORE THROAT 01/05/25 02:30 02/04/25 02:29 Calcium Gluconate 1 gm/Sodium Chloride 100 ml @ 0 mls/hr AD PRN IV Serum Calcium Correction 01/08/25 02:30 02/07/25 02:29 01/08/25 23:32 90 MLS/HR Cefazolin Sodium (Ancef) 2 gm Q12H IVPB 01/07/25 13:30 01/24/25 21:00 01/11/25 00:44 2 GM Chlordiazepoxide HCl (LIBrium 25 MG CAP) 25 mg Q8H PO 01/05/25 02:30 01/11/25 11:39 DC 01/10/25 22:23 25 MG Chlordiazepoxide HCl (LIBrium 25 MG CAP) 25 mg Q8H PRN PO WITHDRAWAL 01/11/25 12:00 01/12/25 02:29 Dexamethasone Sodium Phosphate 20 mg/Sodium Chloride 52 ml @ 100 mls/hr DAILY IV 01/09/25 09:00 02/08/25 08:59 01/11/25 10:34 100 MLS/HR Dexamethasone Sodium Phosphate 40 mg/Sodium Chloride 50 ml @ 100 mls/hr DAILY IV 01/06/25 14:00 01/08/25 12:16 DC 01/08/25 09:34 100 MLS/HR Dextrose (D50w) 50 ml AD PRN IV HYPOGLYCEMIA PROTOCOL 01/05/25 10:00 02/04/25 09:59 Doxycycline Hyclate 250 ml @ 125 mls/hr Q12H IV 01/05/25 10:00 01/06/25 21:05 DC 01/06/25 09:30 125 MLS/HR Doxycycline Hyclate 250 ml @ 125 mls/hr Q12H IV 01/06/25 21:30 01/16/25 21:29 01/11/25 10:33 125 MLS/HR Folic Acid (FOLic ACID 1 MG TABLET) 1 mg DAILY PO 01/07/25 10:30 02/06/25 10:29 01/11/25 10:33 1 MG Furosemide (LASix 20MG VIAL) 20 mg Q12H IV 01/07/25 16:00 01/11/25 00:56 DC 01/10/25 19:40 20 MG Glucagon (Glucagon 1mg Kit) 1 mg AD PRN IM HYPOGLYCEMIA PROTOCOL 01/05/25 10:00 02/04/25 09:59 Hydralazine HCl (APRESOLine 20MG INJ) 5 mg Q6H PRN IV For:SBP above 160;DBP above 90 01/05/25 14:30 02/04/25 14:29 01/10/25 22:24 5 MG Hydralazine HCl (APRESOLine 20MG INJ) 10 mg Q6H PRN IV For:SBP above 160;DBP above 90 01/05/25 02:30 01/05/25 09:53 DC Insulin Glargine (LANtus 100 UNITS/ML 10 ML VIAL) 15 units Q12H SQ 01/07/25 21:30 01/09/25 23:18 DC 01/09/25 13:10 15 UNITS Insulin Glargine (LANtus 100 UNITS/ML 10 ML VIAL) 20 units HS SQ 01/06/25 21:00 01/06/25 21:05 DC Insulin Glargine (LANtus 100 UNITS/ML 10 ML VIAL) 20 units HS SQ 01/06/25 21:30 01/07/25 10:24 DC 01/06/25 21:33 20 UNITS Insulin Glargine (LANtus 100 UNITS/ML 10 ML VIAL) 20 units Q12H SQ 01/10/25 09:30 01/10/25 12:58 DC Insulin Glargine (LANtus 100 UNITS/ML 10 ML VIAL) 25 units Q12H SQ 01/10/25 21:30 01/11/25 00:50 DC 01/10/25 22:19 25 UNITS Insulin Glargine (LANtus 100 UNITS/ML 10 ML VIAL) 30 units Q12H SQ 01/11/25 09:30 02/10/25 09:29 01/11/25 10:50 30 UNITS Insulin Human Regular (humuLIN R 100 UNIT/ML 3ML) 8 unit TIDAC SQ 01/11/25 07:30 02/10/25 07:29 Insulin Human Regular (humuLIN R 100 UNIT/ML 3ML) INSULIN SLIDING SCAL... ACHS SQ 01/05/25 07:30 01/05/25 09:57 DC 01/05/25 07:59 16 UNIT Insulin Human Regular (humuLIN R 100 UNIT/ML 3ML) INSULIN SLIDING SCAL... ACHS SQ 01/05/25 11:30 01/06/25 16:43 DC 01/06/25 11:50 8 UNIT Insulin Human Regular (humuLIN R 100 UNIT/ML 3ML) INSULIN SLIDING SCAL... ACHS SQ 01/06/25 17:00 01/07/25 13:32 DC 01/06/25 17:17 16 UNIT Insulin Human Regular (humuLIN R 100 UNIT/ML 3ML) INSULIN SLIDING SCAL... Q4H SQ 01/11/25 02:00 02/09/25 17:59 Insulin Human Regular (humuLIN R 100 UNIT/ML 3ML) INSULIN SLIDING SCAL... Q6H6 SQ 01/10/25 18:00 01/11/25 00:50 DC 01/11/25 00:45 10 UNIT Insulin Human Regular 100 unit/ Sodium Chloride 100 ml @ 0 mls/hr AD PRN IV HYPERGLYCEMIA PROTOCOL 01/06/25 19:30 01/10/25 06:00 DC 01/09/25 19:10 16 MLS/HR Lactated Ringer's 1,000 ml @ 100 mls/hr Q10H IV 01/05/25 02:30 01/05/25 09:51 DC 01/05/25 02:30 100 MLS/HR Lactated Ringer's 1,000 ml @ 125 mls/hr Q8H IV 01/10/25 01:30 01/10/25 19:40 DC 01/10/25 13:07 125 MLS/HR Lorazepam (AtiVAN) 1 mg Q4H PRN IVP ALCOHOL WITHDRAWAL PROTOCOL 01/05/25 02:30 01/12/25 02:29 Magnesium Sulfate 50 ml @ 0 mls/hr PROTOCOL PRN IV h 01/05/25 02:30 02/04/25 02:29 01/05/25 03:24 25 MLS/HR Morphine Sulfate (morPHINE 2MG SYG) 2 mg Q4H PRN IVP SEVERE PAIN (7-10) 01/05/25 02:30 01/12/25 02:29 Multivitamins Therapeutic (Multivitamin Tablet) 1 tab DAILY PO 01/07/25 10:30 02/06/25 10:29 01/11/25 10:33 1 TAB Nicotine (Nicoderm) 21 mg DAILY TD 01/05/25 09:00 02/04/25 08:59 01/11/25 10:33 21 MG Nitroglycerin (Nitrostat) 0.4 mg AD PRN SL CHEST PAIN 01/05/25 02:30 02/04/25 02:29 Ondansetron HCl (zoFRAN 4MG INJ) 4 mg Q6H PRN IV NAUSEA/VOMITING 01/05/25 02:30 02/04/25 02:29 Pantoprazole Sodium (PROTonix 40MG TAB) 40 mg DAILY PO 01/05/25 09:00 02/04/25 08:59 01/11/25 10:33 40 MG Pharmacy Profile Note (Pharmacy Communication) 1 each PROTOCOL PRN MISC ETOH Withdrawal Score changes 01/05/25 02:30 01/12/25 02:29 Piperacillin Sod/ Tazobactam Sod (Zosyn 3.375gm+NS 50ml) 3.375 gm Q12H IV 01/05/25 02:30 01/07/25 13:24 DC 01/07/25 02:45 3.375 GM Potassium Phosphate 250 ml @ 42 mls/hr PROTOCOL PRN IV PROTOCOL 01/05/25 10:00 02/04/25 09:59 Potassium Chloride 100 ml @ 100 mls/hr AD PRN IV POTASSIUM PROTOCOL 01/05/25 02:30 01/07/25 10:12 DC Potassium Chloride 100 ml @ 100 mls/hr AD PRN IV POTASSIUM PROTOCOL 01/07/25 10:30 02/06/25 10:29 01/09/25 06:26 100 MLS/HR Potassium Chloride (K-Dur 10meq Sr Tab) 10 meq AD PRN PO POTASSIUM PROTOCOL 01/06/25 09:30 02/04/25 02:29 01/08/25 23:35 10 MEQ Potassium Chloride (K-Dur/Klor-Con 20meq) 10 meq AD PRN PO POTASSIUM PROTOCOL 01/05/25 02:30 01/06/25 09:12 DC 01/05/25 22:15 10 MEQ Potassium Chloride (K-Dur/Klor-Con 20meq) 10 meq AD PRN PO POTASSIUM PROTOCOL 01/07/25 10:30 01/07/25 10:12 DC Potassium Chloride (KCl 10% Elixir 20meq/15ml) 10 meq AD PRN PO POTASSIUM PROTOCOL 01/05/25 02:30 01/07/25 10:12 DC 01/06/25 17:16 10 MEQ Potassium Chloride (KCl 10% Elixir 20meq/15ml) 10 meq AD PRN PO POTASSIUM PROTOCOL 01/07/25 10:30 02/06/25 10:29 01/08/25 15:28 10 MEQ Sodium Bicarbonate (Sodium Bicarbonate) 1,300 mg BID PO 01/11/25 09:00 02/10/25 08:59 01/11/25 10:33 1,300 MG Sodium Chloride 1,000 ml @ 50 mls/hr Q20H IV 01/05/25 10:00 01/10/25 01:33 DC 01/09/25 05:56 50 MLS/HR Sodium Chloride 1,000 ml @ 75 mls/hr [id number] IV 01/11/25 01:00 02/10/25 00:59 01/11/25 01:00 75 MLS/HR Triamcinolone Acetonide (Kenalog/ Aristocort) 1 APPLY TP BID BID TP 01/07/25 11:00 02/06/25 10:59 01/11/25 10:33 1 APPL Vancomycin HCl (Vancomycin Protocol) 1 each AD IV 01/07/25 12:30 01/07/25 12:40 DC DIAGNOSTICS / RADIOLOGY: [ ] ASSESSMENT: Severe sepsis, POA Gram-positive bacteremia secondary to Staphylococcus aureus, POA Hypodense echogenic mobile vegetation to right coronary cusp leaflet on echocardiogram 01/05/2025 Urinary tract infection, secondary to Klebsiella pneumoniae, POA Strep pharyngitis, POA ITP, POA Leukocytosis, POA Hyperlactatemia, POA Acute kidney injury, POA Hypokalemia, POA Hyponatremia, POA Hypomagnesemia, POA POA New onset Uncontrolled Diabetes mellitius type2, POA Elevated troponin, POA Cocaine abuse, POA Alcohol abuse, POA Tobacco dependence, POA Significant proteinuria, POA Diabetic nephropathy, POA Gallstones, POA PLAN: -patient remains admitted to the ICU -anion gap now 9, will transition to subcutaneous insulin -continue close monitor the patient's blood glucose level, monitoring metabolic status. Endocrinology consultation requested, follow input and recommendation. -continue to monitor sodium level in a.m. -Continue dexamethasone IV due to ITP per circuit court judge. Continue to follow input and recommendations. -renal function slightly improved today, patient evaluated by 3d artist, the patient with significant proteinuria on UA consistent with diabetic nephropathy. No acute need for any form of renal replacement therapy. -blood culture positive for Staphylococcus aureus. Urine culture positive for Klebsiella pneumoniae. Continue vancomycin IV pharmacy to dose. ID consultation requested, follow input and recommendation. -Echocardiogram with hypodense echogenic mobile vegetation to right coronary cusp leaflet, per cardiology once platelet count is greater than 50,000 will proceed with a a DRAKE. -cholelithiasis noted on CT abdomen, HIDA scan pending -continue to follow critical care input and recommendation Disposition: Pending DRAKE, EGD, antibiotics, transition to subcutaneous insulin, IV fluids, cardiology recommendations All questions answered time spent: > 35 min ARVIND NOLAND MD Jan 11, 2025 11:54
[2025-01-11] MEDS ORDERED: chlordiazePOXIDE HCL 25 MG CAP PO PRN (12:00)
[2025-01-11 14:31] LABS: CREATININE 1.7 mg/dL (0.5-1.3)
[2025-01-11] MEDS: fluCONazole 100 MG TAB PO ONE (15:18)
[2025-01-11] MEDS: HEParin 25,000 UNITS/250ML D5W 250 ML IV SCH (15:30)
[2025-01-11 16:28] LABS: INR 1.07 (0.85-1.15); PROTHROMBIN TIME 11.9 SEC (9.6-11.6)
--- NOTE | 2025-01-11 22:09 | PN ---
INFECTIOUS DISEASE FOLLOWUP NOTE DATE OF SERVICE: 01/11/2025 SUBJECTIVE: The patient is seen and examined at bedside today. No fever or chills. No sore throat, no rhinorrhea. No headache. No limb weakness. No depression. No suicidal ideation. No bleeding tendency. The patient had DRAKE done today, which showed large vegetation. The patient also found to have esophageal candidiasis. PHYSICAL EXAMINATION: GENERAL: Young male, awake. VITAL SIGNS: Temperature 98.3. EYES: No icterus. Pupils equal and reactive. HENT: No oral thrush seen. Moist oral mucosa. NECK: Supple, no JVD or thyromegaly. LUNGS: Good air entry. No rales, no rhonchi. CARDIOVASCULAR: S1, S2 regular. No murmur heard. ABDOMEN: Obese, soft, nontender. Bowel sounds present. CENTRAL NERVOUS SYSTEM: Awake, alert, oriented x 3. No focal deficits. SKIN: No rashes, no itchiness. LYMPHATIC: No peripheral lymphadenopathy. BACK: No deformity, no pressure ulcer. MUSCULOSKELETAL: No joint swelling, erythema or tenderness. ASSESSMENT: A 44-year-old male with multiple problems which include: * Staphylococcal bacteremia and sepsis. * Endocarditis. * Esophageal candidiasis. * Morbid obesity. * Cocaine abuse. * Chronic tobacco use. * Coronary artery disease. PLAN: * Continue cefazolin. * Continue critical care support. * Start the patient on fluconazole. * Continue pain management. * Follow up culture. * Monitor electrolytes. * The patient will be followed up closely. TID: [id number] RECEIPT: [id number]
--- NOTE | 2025-01-11 22:36 | NUR ---
ptt at 57.5. as per dr. baumann orders. ptt goal 61 to 90. order to increase by 2 units if ptt between 46 and 60. change of rate done. new rate of 19 units/kg/hr. next ptt due at 0330am.
--- NOTE | 2025-01-11 23:23 | PN ---
Mr. Jin is a 44-year-old male that was seen and examined today on 01/05/2025. Patient is a good historian and personal health. Patient is a good historian and personal health. Patient states that he came to the emergency department at the behest of his daughter. Patient's chief complaint is weakness. Onset was Thursday12/30/2024. Location is to entire body. Duration is constant. Character is described as, " today Orion needed help to get out of the sofa and out of the shower. I also fell down once. "There was no alleviating factors. Symptoms are aggravated with physical activity. Patient denies any associated chest pain or shortness and breath. I was consulted because of leukocytosis and severe thrombocytopenia. This patient have have any alcoholism. Patient also on cocaine. It seems the patient may be have pyelonephritis by CT scan with the patient was started on antibiotic treatment. This patient was found to have thrombocytopenia. Which was multifactorial including cirrhosis of the liver and possible ITP. Platelet count improved. This patient receiving dexamethasone 20 mg IV daily. Patient was found to have bacteremia. With the 2D echo showing possible vegetation of the valve. There is plan for DRAKE to be done tomorrow. Patient have DRAKE which showed patient to have intra-atrial thrombosis PE General Appearance: Alert, Oriented X3, Cooperative, moderate distress HEENT: Atraumatic, PERRLA, EOMI, Other (Mucous membranes dry and cracked) Respiratory: Clear to auscultation, Normal air movement, NL respiratory effort Cardiovascular: Normal S1, Normal S2, Other (Tachycardia) Abdominal: Normal bowel sounds, Soft, No tenderness Extremities: No edema Skin: No significant lesion Neuro: Normal gait, Normal speech, Strength at 5/5 X4 ext, Sensation intact, Cranial nerves 3-12 NL Psych/Mental Status: Mental status NL, Mood NL, Thoughts/Content NL Assessment 1. Thrombocytopenia. 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 2. Acute on chronic renal failure 4. Severe sepsis. Possible bacteremia and possible endocarditis 5. Leukocytosis 6. Cocaine abuse 7. Alcohol abuse 8. Hepatomegaly 9. Splenomegaly 10. Bacteremia with possibility of endocarditis. 11. DRAKE showing intra-atrial thrombus which could be infection Plan 1. Patient to continue with decrease the dose of dexamethasone to 20 mg IV. Platelet count improved to 113K. 2. There was hypersegmented neutrophils. This patient to Continue on folic acid 1 mg p.o. daily and vitamin B12 1000 mcg p.o. daily. 3. 4. Please do not transfuse any platelet anymore 5. Patient to have CBC tomorrow. 6. Patient to be started on heparin drip. With the APTT goal between 6090. 7. This patient prognosis is very poor. 8. Continue antibiotic treatment as per infectious disease specialist Vitals/Labs Vital Signs Date Time Temp Pulse Resp B/P (MAP) Pulse Ox O2 Delivery O2 Flow Rate FiO2 01/11/25 19:00 97.7 89 18 128/85 99 Room Air 01/11/25 08:15 0 21 Laboratory Tests 01/11/25 01:59 01/11/25 04:59 01/11/25 08:18 01/11/25 14:07 Medications Current Medications Sodium Chloride 1,000 ml @ 125 mls/hr ONCE ONCE IV Last administered on 01/05/25at 00:13; Start 01/04/25 at 23:00; Stop 01/05/25 at 06:59; Status DC Aspirin 81 mg ONCE ONCE PO Last administered on 01/05/25at 00:14; Start 01/04/25 at 23:00; Stop 01/04/25 at 23:01; Status DC Ondansetron HCl 4 mg ONCE ONCE IVP Last administered on 01/05/25at 00:13; Start 01/04/25 at 23:00; Stop 01/04/25 at 23:01; Status DC Potassium Chloride 100 ml @ 50 mls/hr ONCE ONCE IV Last administered on 01/05/25at 00:13; Start 01/05/25 at 00:00; Stop 01/05/25 at 01:59; Status DC Potassium Chloride 100 ml @ 50 mls/hr ONCE ONCE IV Last administered on 01/05/25at 03:12; Start 01/05/25 at 00:00; Stop 01/05/25 at 01:59; Status DC Thiamine HCl 100 mg ONCE ONCE IVP Last administered on 01/05/25at 01:01; Start 01/05/25 at 00:00; Stop 01/05/25 at 00:01; Status DC Acetaminophen 500 mg STK-MED ONCE .ROUTE; Start 01/05/25 at 00:28; Stop 01/05/25 at 00:28; Status DC Cefepime HCl 1 gm ONCE ONCE IVPB Last administered on 01/05/25at 01:01; Start 01/05/25 at 01:00; Stop 01/05/25 at 01:02; Status DC Vancomycin HCl 750 mg ONCE ONCE IVPB Last administered on 01/05/25at 02:12; Start 01/05/25 at 01:00; Stop 01/05/25 at 01:02; Status DC Sodium Chloride 250 ml ONCE ONCE IVPB Last administered on 01/05/25at 02:12; Start 01/05/25 at 01:00; Stop 01/05/25 at 01:02; Status DC Acetaminophen 1,000 mg ONCE ONCE PO Last administered on 01/05/25at 00:30; Start 01/05/25 at 01:00; Stop 01/05/25 at 01:02; Status DC Aspirin 81 mg DAILY PO; Start 01/05/25 at 09:00; Stop 01/05/25 at 09:53; Status DC Nitroglycerin 0.4 mg AD PRN SL; Start 01/05/25 at 02:30; Stop 02/04/25 at 02:29 Aspirin 162 mg ONCE ONCE PO Last administered on 01/05/25at 03:06; Start 01/05/25 at 02:30; Stop 01/05/25 at 02:31; Status DC Insulin Human Regular INSULIN SLIDING SCAL... ACHS SQ Last administered on 01/05/25at 07:59; Start 01/05/25 at 07:30; Stop 01/05/25 at 09:57; Status DC Lactated Ringer's 3,429 ml @ 1,143 mls/hr ONCE ONCE IV Last administered on 01/05/25at 03:12; Start 01/05/25 at 02:30; Stop 01/05/25 at 05:29; Status DC Piperacillin Sod/ Tazobactam Sod 3.375 gm Q12H IV Last administered on 01/07/25at 02:45; Start 01/05/25 at 02:30; Stop 01/07/25 at 13:24; Status DC Potassium Chloride 100 ml @ 100 mls/hr AD PRN IV; Start 01/05/25 at 02:30; Stop 01/07/25 at 10:12; Status DC Potassium Chloride 10 meq AD PRN PO Last administered on 01/06/25at 17:16; Start 01/05/25 at 02:30; Stop 01/07/25 at 10:12; Status DC Potassium Chloride 10 meq AD PRN PO Last administered on 01/05/25at 22:15; Start 01/05/25 at 02:30; Stop 01/06/25 at 09:12; Status DC Acetaminophen 650 mg Q6H PRN PO Last administered on 01/08/25at 04:21; Start 01/05/25 at 02:30; Stop 02/04/25 at 02:29 Pantoprazole Sodium 40 mg DAILY PO Last administered on 01/11/25at 10:33; Start 01/05/25 at 09:00; Stop 02/04/25 at 08:59 Ondansetron HCl 4 mg Q6H PRN IV; Start 01/05/25 at 02:30; Stop 02/04/25 at 02:29 Morphine Sulfate 2 mg Q4H PRN IVP; Start 01/05/25 at 02:30; Stop 01/12/25 at 02:29 Hydralazine HCl 10 mg Q6H PRN IV; Start 01/05/25 at 02:30; Stop 01/05/25 at 09:53; Status DC Benzocaine 1 each Q4H PRN MM; Start 01/05/25 at 02:30; Stop 02/04/25 at 02:29 Magnesium Sulfate 50 ml @ 0 mls/hr PROTOCOL PRN IV Last administered on 01/05/25at 03:24; Start 01/05/25 at 02:30; Stop 02/04/25 at 02:29 Lactated Ringer's 1,000 ml @ 100 mls/hr Q10H IV Last administered on 01/05/25at 02:30; Start 01/05/25 at 02:30; Stop 01/05/25 at 09:51; Status DC Chlordiazepoxide HCl 25 mg Q8H PO Last administered on 01/10/25at 22:23; Start 01/05/25 at 02:30; Stop 01/11/25 at 11:39; Status DC Lorazepam 1 mg Q4H PRN IVP; Start 01/05/25 at 02:30; Stop 01/12/25 at 02:29 Pharmacy Profile Note 1 each PROTOCOL PRN MISC; Start 01/05/25 at 02:30; Stop 01/12/25 at 02:29 Nicotine 21 mg DAILY TD Last administered on 01/11/25at 10:33; Start 01/05/25 at 09:00; Stop 02/04/25 at 08:59 Sodium Chloride 1,000 ml @ 50 mls/hr Q20H IV Last administered on 01/09/25at 05:56; Start 01/05/25 at 10:00; Stop 01/10/25 at 01:33; Status DC Potassium Phosphate 250 ml @ 42 mls/hr PROTOCOL PRN IV; Start 01/05/25 at 10:00; Stop 02/04/25 at 09:59 Hydralazine HCl 5 mg Q6H PRN IV Last administered on 01/10/25at 22:24; Start 01/05/25 at 14:30; Stop 02/04/25 at 14:29 Doxycycline Hyclate 250 ml @ 125 mls/hr Q12H IV Last administered on 01/06/25at 09:30; Start 01/05/25 at 10:00; Stop 01/06/25 at 21:05; Status DC Potassium Chloride 40 meq ONCE ONCE PO Last administered on 01/05/25at 10:25; Start 01/05/25 at 10:00; Stop 01/05/25 at 10:01; Status DC Potassium Chloride 100 ml @ 50 mls/hr ONCE ONCE IV Last administered on 01/05/25at 10:25; Start 01/05/25 at 10:00; Stop 01/05/25 at 11:59; Status DC Dextrose 50 ml AD PRN IV; Start 01/05/25 at 10:00; Stop 02/04/25 at 09:59 Glucagon 1 mg AD PRN IM; Start 01/05/25 at 10:00; Stop 02/04/25 at 09:59 Insulin Human Regular INSULIN SLIDING SCAL... ACHS SQ Last administered on 01/06/25at 11:50; Start 01/05/25 at 11:30; Stop 01/06/25 at 16:43; Status DC Dexamethasone Sodium Phosphate 10 mg ONCE ONCE IVP Last administered on 01/05/25at 17:27; Start 01/05/25 at 13:30; Stop 01/05/25 at 14:03; Status DC Insulin Glargine 20 units HS SQ; Start 01/06/25 at 21:00; Stop 01/06/25 at 21:05; Status DC Potassium Chloride 10 meq AD PRN PO Last administered on 01/08/25at 23:35; Start 01/06/25 at 09:30; Stop 02/04/25 at 02:29 Dexamethasone Sodium Phosphate 40 mg DAILY ONCE IV; Start 01/07/25 at 09:00; Stop 01/06/25 at 13:27; Status DC Dexamethasone Sodium Phosphate 40 mg/Sodium Chloride 50 ml @ 100 mls/hr DAILY IV Last administered on 01/08/25at 09:34; Start 01/06/25 at 14:00; Stop 01/08/25 at 12:16; Status DC Insulin Human Regular INSULIN SLIDING SCAL... ACHS SQ Last administered on 01/06/25at 17:17; Start 01/06/25 at 17:00; Stop 01/07/25 at 13:32; Status DC Insulin Human Regular 100 unit/ Sodium Chloride 100 ml @ 0 mls/hr AD PRN IV Last administered on 01/09/25at 19:10; Start 01/06/25 at 19:30; Stop 01/10/25 at 06:00; Status DC Insulin Glargine 20 units HS SQ Last administered on 01/06/25at 21:33; Start 01/06/25 at 21:30; Stop 01/07/25 at 10:24; Status DC Doxycycline Hyclate 250 ml @ 125 mls/hr Q12H IV Last administered on 01/11/25at 21:50; Start 01/06/25 at 21:30; Stop 01/16/25 at 21:29 Chlordiazepoxide HCl 25 mg STK-MED ONCE .ROUTE; Start 01/07/25 at 02:35; Stop 01/07/25 at 02:41; Status DC Piperacillin Sod/ Tazobactam Sod 50 ml @ As Directed STK-MED ONCE .ROUTE; Start 01/07/25 at 02:39; Stop 01/07/25 at 02:41; Status DC Potassium Chloride 0 ml @ As Directed STK-MED ONCE IV; Start 01/07/25 at 07:28; Stop 01/07/25 at 07:31; Status DC Potassium Chloride 40 meq ONCE ONCE PO Last administered on 01/07/25at 09:44; Start 01/07/25 at 10:00; Stop 01/07/25 at 10:01; Status DC Potassium Chloride 100 ml @ 100 mls/hr AD PRN IV Last administered on 01/09/25at 06:26; Start 01/07/25 at 10:30; Stop 02/06/25 at 10:29 Potassium Chloride 10 meq AD PRN PO Last administered on 01/08/25at 15:28; Start 01/07/25 at 10:30; Stop 02/06/25 at 10:29 Potassium Chloride 10 meq AD PRN PO; Start 01/07/25 at 10:30; Stop 01/07/25 at 10:12; Status DC Insulin Glargine 15 units Q12H SQ Last administered on 01/09/25at 13:10; Start 01/07/25 at 21:30; Stop 01/09/25 at 23:18; Status DC Insulin Glargine 10 units ONCE ONCE SQ Last administered on 01/07/25at 10:40; Start 01/07/25 at 10:30; Stop 01/07/25 at 10:31; Status DC Thiamine HCl 300 mg DAILY ONCE IVP Last administered on 01/07/25at 10:39; Start 01/07/25 at 10:30; Stop 01/07/25 at 10:31; Status DC Multivitamins Therapeutic 1 tab DAILY PO Last administered on 01/11/25at 10:33; Start 01/07/25 at 10:30; Stop 02/06/25 at 10:29 Folic Acid 1 mg DAILY PO Last administered on 01/11/25at 10:33; Start 01/07/25 at 10:30; Stop 02/06/25 at 10:29 Triamcinolone Acetonide 1 APPLY TP BID BID TP Last administered on 01/11/25at 21:07; Start 01/07/25 at 11:00; Stop 02/06/25 at 10:59 Vancomycin HCl 1 each AD IV; Start 01/07/25 at 12:30; Stop 01/07/25 at 12:40; Status DC Cefazolin Sodium 2 gm Q12H IVPB Last administered on 01/11/25at 13:41; Start 01/07/25 at 13:30; Stop 01/24/25 at 21:00 Furosemide 20 mg Q12H IV Last administered on 01/10/25at 19:40; Start 01/07/25 at 16:00; Stop 01/11/25 at 00:56; Status DC Calcium Gluconate 1 gm/Sodium Chloride 100 ml @ 0 mls/hr AD PRN IV Last administered on 01/08/25at 23:32; Start 01/08/25 at 02:30; Stop 02/07/25 at 02:29 Dexamethasone Sodium Phosphate 20 mg/Sodium Chloride 52 ml @ 100 mls/hr DAILY IV Last administered on 01/11/25at 10:34; Start 01/09/25 at 09:00; Stop 02/08/25 at 08:59 Insulin Glargine 20 units Q12H SQ; Start 01/10/25 at 09:30; Stop 01/10/25 at 12:58; Status DC Lactated Ringer's 1,000 ml @ 125 mls/hr Q8H IV Last administered on 01/10/25at 13:07; Start 01/10/25 at 01:30; Stop 01/10/25 at 19:40; Status DC Lactated Ringer's 1,000 ml BOLUS ONCE IV Last administered on 01/10/25at 09:20; Start 01/10/25 at 07:30; Stop 01/10/25 at 07:31; Status DC Lidocaine HCl 100 mg STK-MED ONCE .ROUTE; Start 01/10/25 at 08:01; Stop 01/10/25 at 08:02; Status DC Propofol 200 mg STK-MED ONCE IV; Start 01/10/25 at 08:02; Stop 01/10/25 at 08:02; Status DC Glycopyrrolate 1 mg STK-MED ONCE .ROUTE; Start 01/10/25 at 08:02; Stop 01/10/25 at 08:02; Status DC Ketamine HCl 50 mg STK-MED ONCE .ROUTE; Start 01/10/25 at 08:03; Stop 01/10/25 at 08:03; Status DC Insulin Glargine 25 units Q12H SQ Last administered on 01/10/25at 22:19; Start 01/10/25 at 21:30; Stop 01/11/25 at 00:50; Status DC Insulin Human Regular INSULIN SLIDING SCAL... Q6H6 SQ Last administered on 01/11/25at 00:45; Start 01/10/25 at 18:00; Stop 01/11/25 at 00:50; Status DC Insulin Glargine 30 units Q12H SQ Last administered on 01/11/25at 10:50; Start 01/11/25 at 09:30; Stop 01/11/25 at 20:13; Status DC Insulin Human Regular INSULIN SLIDING SCAL... Q4H SQ Last administered on 01/11/25at 20:49; Start 01/11/25 at 02:00; Stop 02/09/25 at 17:59 Sodium Chloride 1,000 ml @ 75 mls/hr [id number] IV Last administered on 01/11/25at 01:00; Start 01/11/25 at 01:00; Stop 01/11/25 at 13:45; Status DC Sodium Bicarbonate 1,300 mg BID PO Last administered on 01/11/25at 21:05; Start 01/11/25 at 09:00; Stop 02/10/25 at 08:59 Insulin Human Regular 8 unit TIDAC SQ Last administered on 01/11/25at 16:22; Start 01/11/25 at 07:30; Stop 02/10/25 at 07:29 Lidocaine HCl 100 mg STK-MED ONCE .ROUTE; Start 01/11/25 at 07:00; Stop 01/11/25 at 07:00; Status DC Atropine Sulfate 1 mg STK-MED ONCE IVP; Start 01/11/25 at 07:00; Stop 01/11/25 at 07:00; Status DC Propofol 200 mg STK-MED ONCE IV; Start 01/11/25 at 07:00; Stop 01/11/25 at 07:00; Status DC Succinylcholine Chloride 200 mg STK-MED ONCE .ROUTE; Start 01/11/25 at 07:00; Stop 01/11/25 at 07:00; Status DC Ketamine HCl 50 mg STK-MED ONCE .ROUTE; Start 01/11/25 at 07:00; Stop 01/11/25 at 07:01; Status DC Glycopyrrolate 1 mg STK-MED ONCE .ROUTE; Start 01/11/25 at 07:01; Stop 01/11/25 at 07:01; Status DC Sodium Chloride 10 ml STK-MED ONCE .ROUTE; Start 01/11/25 at 07:01; Stop 01/11/25 at 07:01; Status DC Phenylephrine HCl 10 mg STK-MED ONCE IV; Start 01/11/25 at 07:01; Stop 01/11/25 at 07:01; Status DC Midazolam HCl 2 mg STK-MED ONCE .ROUTE; Start 01/11/25 at 07:08; Stop 01/11/25 at 07:08; Status DC Ondansetron HCl 4 mg STK-MED ONCE .ROUTE; Start 01/11/25 at 07:34; Stop 01/11/25 at 07:35; Status DC Chlordiazepoxide HCl 25 mg Q8H PRN PO; Start 01/11/25 at 12:00; Stop 01/12/25 at 02:29 Heparin Sodium/ Dextrose 250 ml @ 0 mls/hr PROTOCOL IV Last administered on 01/11/25at 15:30; Start 01/11/25 at 14:30; Stop 02/10/25 at 14:29 Fluconazole 200 mg ONCE ONCE PO Last administered on 01/11/25at 15:18; Start 01/11/25 at 15:30; Stop 01/11/25 at 15:31; Status DC Fluconazole 200 mg DAILY PO; Start 01/12/25 at 09:00; Stop 02/11/25 at 08:59 Lactobacillus Rhamnosus 1 each DAILY PO; Start 01/12/25 at 09:00; Stop 02/11/25 at 08:59 Insulin Glargine 30 units DAILY SQ; Start 01/12/25 at 09:00; Stop 02/10/25 at 09:29 LEOPOLDO AGUILAR MD Jan 11, 2025 23:23
--- NOTE | 2025-01-11 23:58 | PN ---
SUBJECTIVE: A 44-year-old male with history of diabetes mellitus and hypertension, initially presented, found to have acute on chronic renal failure. The patient with underlying bacteremia. The patient did undergo DRAKE that did reveal endocarditis and the patient is being seen as a followup visit for all the above. REVIEW OF SYSTEMS: GENERAL: He is feeling weak and tired. HEENT: No change in vision. No change in hearing. CARDIOVASCULAR: There is no current chest pain or palpitations. PULMONARY: There is no shortness of breath. GASTROINTESTINAL: The patient is tolerating a diet. MUSCULOSKELETAL: Complains of weakness. PHYSICAL EXAMINATION: VITAL SIGNS: Blood pressure 154/93, pulse 80s. GENERAL: This is a chronically ill male, much older than appearing. HEENT: Head is atraumatic. Pupils equal, roving to light. Oropharynx is without exudate. Nares clear. NECK: There is no JVP. There is no thyromegaly, no mass. CARDIOVASCULAR: Regular. There is no S3, S4 gallop. LUNGS: Coarse with equal thoracic movement. ABDOMEN: Soft, nondistended, nontender. EXTREMITIES: No clubbing, no cyanosis. NEUROLOGIC: He is awake. He is alert. LABORATORY DATA: Hemoglobin 15, hematocrit 43, white count is 12,000. BUN 59. Creatinine 1.8. IMPRESSION: * Acute on chronic renal failure. * Endocarditis. * Diabetes mellitus. * Hypertension. PLAN: The patient's creatinine continues to stabilize. He has a history of chronic renal insufficiency. The patient DRAKE is consistent with endocarditis and remains on antibiotics. The patient is to be seen by Cardiovascular Surgery. We will follow closely. TID: [id number] RECEIPT: [id number]
[2025-01-12] VITALS (9 sets, daily range): BP systolic 132–156; BP diastolic 81–101; PULSE 70–88; RESP 18–20; TEMP 97.5–98; O2SAT 96–99
[2025-01-12] MEDS: INSULIN humuLIN R 100 UNIT/ML 3ML SQ SCH (01:05)
[2025-01-12 03:46] LABS: BASOPHILS # (AUTO) 0.01 K/uL (0.00-0.20); BASOPHILS % (AUTO) 0.1 % (0.0-5.0); EOSINOPHILS # (AUTO) 0.02 K/uL (0.00-0.70); EOSINOPHILS % (AUTO) 0.1 % (0.0-8.0); HEMATOCRIT 39.8 % (42-54); IMMATURE GRANULOCYTE ABSOLUTE 0.16 K/uL (0-1); LYMPHOCYTES # (AUTO) 0.9 K/uL (1.0-4.8); LYMPHOCYTES % (AUTO) 6.6 % (21.0-51.0); MEAN CORPUSCULAR HEMOGLOBIN 32.2 pg (27.0-33.0); MEAN CORPUSCULAR HGB CONC 34.4 g/dL (32.0-36.0); MEAN CORPUSCULAR VOLUME 93.6 fL (79-99); MONOCYTES # (AUTO) 0.6 K/uL (0.1-1.0); MONOCYTES % (AUTO) 4.5 % (3.0-13.0); NEUTROPHILS # (AUTO) 11.7 K/uL (1.8-7.7); NEUTROPHILS % (AUTO) 87.5 % (40.0-77.0); PLATELET COUNT (AUTO) 135 K/uL (130-400); RED BLOOD CELL COUNT(AUTO) 4.25 MIL/uL (4.50-6.20); WHITE BLOOD COUNT (AUTO) 13.4 K/uL (4.8-10.8)
[2025-01-12 04:08] LABS: ALBUMIN 1.9 g/dL (3.5-5.0); BILIRUBIN,TOTAL 1.1 mg/dL (0.2-1.0); CREATININE 1.6 mg/dL (0.5-1.3); POTASSIUM 4.1 mmol/L (3.5-5.1)
--- NOTE | 2025-01-12 09:50 | PN ---
FOLLOWUP PROGRESS NOTE SUBJECTIVE: A 44-year-old male with history of diabetes mellitus and hypertension. The patient presented to the hospital and found to have bacteremia. The patient's workup is consistent with endocarditis. The patient remains on the antibiotics and the patient is being seen as a followup visit for all the above. He has had acute on chronic renal failure in the hospital. Creatinine has been stable. REVIEW OF SYSTEMS: GENERAL: He is feeling weak and tired. HEENT: No change in vision. No change in hearing. CARDIOVASCULAR: There is no current chest pain or palpitations. PULMONARY: No shortness of breath. GASTROINTESTINAL: He is tolerating a diet. MUSCULOSKELETAL: Complains of weakness. PHYSICAL EXAMINATION:. VITAL SIGNS: Blood pressure 140/85, pulse 70s. GENERAL: He is a chronically ill male, older than appearing. HEENT: Head is atraumatic. Pupils are equal, roving to light. Oropharynx is without exudate. Nares clear. NECK: There is no JVP. There is no thyromegaly, no mass. CARDIOVASCULAR: Regular. There is no S3 or S4 gallop. LUNGS: Coarse with equal thoracic movement. ABDOMEN: Soft, nondistended, nontender. EXTREMITIES: Reveal no clubbing, no cyanosis. NEUROLOGIC: He is awake. He is alert. LABORATORY DATA: Hemoglobin 13, hematocrit 39, white cell count is 13,000. Sodium 140, potassium is 4, BUN 48, creatinine 1.6. IMPRESSION: * Acute on chronic renal failure. * Endocarditis. * Diabetes mellitus. * Hypertension. * Substance abuse. PLAN: The patient does have significant renal dysfunction. The patient's creatinine has stabilized while in the hospital. Repeat blood cultures thus far have been negative. He remains on the antibiotics. We will continue to follow closely. The patient will be seen by case management in regards to the long-term IV antibiotics. We will continue to follow closely. The patient and family at the bedside. Multiple questions were answered. TID: [id number] RECEIPT: [id number]
--- NOTE | 2025-01-12 10:39 | PN ---
[facility] CARDIOLOGY PROGRESS NOTE Cardiology progress note dictated for Evans Hilario MD Date Patient Seen: Jan 12, 2025 Interval History: The patient admits to generalized malaise and chest discomfort with cough. Telemetry demonstrating NSR 70-80's. PLT 135k/uL. DRAKE with 1.1 cm aortic valve vegetation and KARINA thrombus. EGD on 01/11 with werner esophagitis. Physical Examination: GENERAL: No acute distress. HEAD: Normal with no signs of head trauma. EYES: PERRLA, EOMI, conjunctiva and sclera normal. NECK: Supple without JVD. There is no tenderness, lymphadenopathy, or masses. No thyromegaly. Normal carotid upstrokes without bruits. LUNGS: Clear breath sounds to upper lobes bilaterally and diminished at the base heard anteriorly. Poor inspiratory effort. HEART: Normal rate and rhythm. Normal S1 and S2 without murmurs, gallop or rub. VASC: Peripheral pulses +2 bilaterally. EXT: No clubbing, cyanosis or edema. NEURO: Awake, alert, and oriented x3. No focal neurological deficits noted. Laboratory: Hematology Labs: Test 01/12/25 03:37 Range/Units White Blood Count 13.4 H 4.8-10.8 K/uL Red Blood Count 4.25 L 4.50-6.20 MIL/uL Hemoglobin 13.7 L 14.0-18.0 g/dL Hematocrit 39.8 L 42-54 % Mean Corpuscular Volume 93.6 79-99 fL Mean Corpuscular Hemoglobin 32.2 27.0-33.0 pg Mean Corpuscular Hemoglobin Concent 34.4 32.0-36.0 g/dL Red Cell Distribution Width 14.0 11.0-15.5 % Platelet Count 135 130-400 K/uL Mean Platelet Volume 10.9 H 7.5-10.5 fL Immature Granulocyte % (Auto) 1.2 H 0-1 % Neutrophils (%) (Auto) 87.5 H 40.0-77.0 % Lymphocytes (%) (Auto) 6.6 L 21.0-51.0 % Monocytes (%) (Auto) 4.5 3.0-13.0 % Eosinophils (%) (Auto) 0.1 0.0-8.0 % Basophils (%) (Auto) 0.1 0.0-5.0 % Neutrophils # (Auto) 11.7 H 1.8-7.7 K/uL Lymphocytes # (Auto) 0.9 L 1.0-4.8 K/uL Monocytes # (Auto) 0.6 0.1-1.0 K/uL Eosinophils # (Auto) 0.02 0.00-0.70 K/uL Basophils # (Auto) 0.01 0.00-0.20 K/uL Absolute Immature Granulocyte (auto 0.16 0-1 K/uL Nucleated Red Blood Cells 0.0 0.0-0.19 % White Cell Morphology Comment See comments Chemistry Labs: Test 01/12/25 04:31 01/12/25 03:37 01/10/25 11:10 Range/Units Whole Blood Glucose 139 H 70-110 MG/DL Sodium Level 140 136-145 mmol/L Potassium Level 4.1 3.5-5.1 mmol/L Chloride Level 112 H 101-111 mmol/L Carbon Dioxide Level 17 L 21-32 mmol/L Blood Urea Nitrogen 48 H 7-18 mg/dL Creatinine 1.6 H 0.5-1.3 mg/dL Glomerular Filtration Rate Calc 54 >90 mL/min Random Glucose 157 H 70-105 mg/dL Whole Blood Ketones Quantitative 0.1 0.0-0.6 mmol/L Total Calcium 6.9 L 8.5-10.1 mg/dL Total Bilirubin 1.1 #H 0.2-1.0 mg/dL Aspartate Amino Transf (AST/SGOT) 21 10-37 U/L Alanine Aminotransferase (ALT/SGPT) 22 # 12-78 U/L Alkaline Phosphatase 96 50-136 U/L Ammonia 22 11-32 umol/L Total Protein 6.0 6.0-8.3 g/dL Albumin 1.9 L 3.5-5.0 g/dL Lactic Acid Level 1.8 0.8-2.5 mmol/L Coagulation Labs: Test 01/12/25 03:37 01/11/25 14:48 Range/Units Activated Partial Thromboplast Time 80.9 #H 26.3-35.5 SEC Prothrombin Time 11.9 H 9.6-11.6 SEC Prothromb Time International Ratio 1.07 0.85-1.15 Diagnostics / Radiology: 2D echocardiogram 01/05/2025: Conclusion The left ventricle is normal size. LVEF is 60-65%. Indeterminate diastolic dysfunction. The right ventricle is normal size. The right ventricular systolic function is normal. The left atrium size is normal. The right atrium size is normal. The aortic valve is trileaflet and opens well. Right coronary cusp leaflet appears to have a vegetation. IVC is dilated and collapses >50% with inspiration. There is no pericardial effusion. Impression and Plan: 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 Patient is high risk given advanced liver disease and thrombocytopenia -DRAKE on 01/11/2025 with LVEF of 60-65%, Left atrial appendage clot present, Aortic valve is trileaflet and open well. Non coronary cusp leaflet has vegetation that measures 1.81cm x 1.17cm. ID abx for MSSA for 6 weeks and repeat DRAKE at that time -Started on Heparin gtt KARINA thrombus -on heparin gtt, monitor platelets Thrombocytopenia with platelet count falling to 21,000 on 01/05/2025, now improving to 135,000 -Dr. 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
[2025-01-12 10:51] LABS: BASE EXCESS,VENOUS BLOOD GAS -5.1 (-2.0-3.0); DEVICE COMMENT VBGJOHNNY; PCO2,VENOUS BLOOD GAS 25 (38-54); PH,VENOUS BLOOD GAS 7.447 (7.320-7.430); PO2,VENOUS BLOOD GAS 51.9 mmHg (23.0-48.0); VENT MODE, BG VBG (ROOM AIR)
[2025-01-12] MEDS: fluCONazole 100 MG TAB PO SCH (10:55)
[2025-01-12] MEDS: LACTOBACILLUS RHAMNOSUS GG 1 EACH CAP.SPRINK PO SCH (10:56)
--- NOTE | 2025-01-12 11:17 | CONS ---
REFERRING PHYSICIAN: Dr. Hilario CONSULTING PHYSICIAN: Som Garcia MD REASON FOR CONSULTATION: Alcohol abuse, subacute bacterial endocarditis, aortic valve vegetation. HISTORY OF PRESENT ILLNESS: This is a patient who presents with Klebsiella in the urine and bacteremia secondary to methicillin-sensitive Staph. Echocardiogram demonstrates a large vegetation 1.2 cm in the aortic valve and no hemodynamic instability. The patient has a history of alcohol abuse and some degree of cirrhosis as well as tobacco abuse. I have had the opportunity to review the films and discussed the case with Dr. Hilario. We both agreed at this point without having any hemodynamic instability, the patient should have his blood sterilized, he should try to get off the abstinence syndrome from alcohol if this is going to develop in the next few days and the medical condition should be optimized prior to surgery if surgery could be done. FINDINGS. * Continue IV antibiotics to sterilize the blood as per Dr. Jt Das from the Infectious Diseases. * Continue to diurese and monitor for abstinence syndrome. We will follow with you. TID: [id number] RECEIPT: [id number]
[2025-01-12] MEDS: INSULIN GLARgine 100 UNITS/ML 10 ML VIAL SQ SCH (11:25)
--- NOTE | 2025-01-12 12:41 | PN ---
[facility] PROGRESS NOTE Date of Service: Jan 12, 2025 Time of Service: 12:34 SUBJECTIVE: [ ] The patient has been seen and examined at bedside, no acute events overnight, the patient is comfortable, cooperating well, alert oriented x3, he is on a CIWA protocol, not combative. BP 123/70, rest of vital signs unremarkable. Patient received transfusion of 1 unit of platelet, platelet count improved to 27, per music engineer, likely due to splenomegaly. Echocardiogram reviewed, hypodense echogenic mobile vegetation to right coronary cusp leaflet, per cardiology once platelet count is greater than 50 1000 we will proceed with a a DRAKE. The pa tient also with a elevated blood sugar, continue insulin sliding scale, add insulin glargine 20 units subcutaneously at bedtime. Continue the patient on broad-spectrum IV antibiotics, continue to trend WBC in a.m.. 01/07 patient is seen and examined at bedside, case discussed with the RN, patient upgraded last night to the ICU to start insulin drip as blood glucose per sistently greater than 400. Patient started on dexamethasone IV by music engineer do to ITP. Platelet count slightly better today at 41. Upon my initial encounter with the patient admitted that he drinks more than 18 beers per day. He was started on CIWA protocol, however has remained hemodynamically stable, comfortable in bed, no signs of withdrawal, cooperating fine. Not agitated, not combative. Toxicology screen positive for cocaine. Sodium level slowly improvi ng, today 132. Serology positive for influenza type A. The patient with significant proteinuria consistent with diabetic nephropathy, creatinine slowly trending down, no need for renal replacement therapy per softball player. Patient with blood culture positive for Staphylococcus aureus, with urine culture positive for Klebsiella pneumoniae. We will add vancomycin IV pharmacy to dose. We will request Infectious Disease consultation. Echocardiogram reviewed, hypodense echogenic mobile vegetation to right coronary cusp leaflet, per cardiology once platelet count is greater than 50 1000 we will proceed with a a DRAKE. CT abdomen with gallstones in the gallbladder. HIDA scan pending 01/08 patient seen at bedside, no acute events overnight. He continues on insulin drip with an anion gap of 14, we will continue until the gap is closed. P latelets 54, we will follow up with Cardiology on optimal timing for DRAKE. Continue with IV antibiotics, further care per critical Care. 2/10 patient seen at bedside, no acute events overnight. Anion gap is still open at 14, we will continue IV insulin. Platelets improved from 54 up to 71, CO2 decreased from 17 down to 15. Cardiology planning on DRAKE today, we will follow up postprocedure. Repeat blood cultures are positive for Gram-positive organisms which further supports underlying endocarditis. Continue with IV antibiotics, appreciate Infectious Disease recommendations. He has been afebrile, hemodynamically stable saturating well on room air. WBC increased from 12.8 up to 13.6, BUN decreased from 93 down to 90, creatinine decreased from 2.5 down to 2.3, remainder of his labs are relatively unremarkable. 01/10 Pt seen at bedside, no acute events overnight. Pt with anion gap of 14, CO2 still low at 16. Repeat lactic acid was ordered, elevated at 4.8, will bolus patient and continue with IV fluids. DRAKE was rescheduled to today, will follow up with results.WBC improved from 13.6 down to 11.7, Hgb decreased from 15.1 down to 12.4, platelets decreased from 71 down to 66, this substantial decrease in all cell lines suggests hemodilution, creatinine decreased from 2.2 down to 1.4, also likely falsely depressed. 01/11 Pt seen at bedside, no acute events overnight. Pending EGD to assess for esophageal varices and DRAKE today, will follow up post procedure. Yesterday repeat lactic acid was elevated at 4.8, the patient was bolused and it improved down to 1.3. He has been afebrile, hemodynamically stable, saturating well on room air. WBC increased from 11.7 up to 12.5, platelets improved from 66 up to 113, creatinine increased from 1.6 up to 1.8, CO2 improved from 17 up to 22 after patient was started on bicarb. Third set of blood cultures growing gram positive organisms 01/12 patient is seen and examined at bedside, case discussed with the RN, no acute events overnight, remains on broad-spectrum IV antibiotics, alert oriented x3, following commands. Patient underwent DRAKE 01/11, tolerated well, LVEF 60- 65%, no left ventricle thrombus noted. Right ventricle is severely dilated. Left atrial appendage clot present. No mass or thrombus in the left atrium. No mass or thrombus in the right atrium. Aortic valve is trileaflet, opens well, non coronary cusp leaflet has vegetation that measures 1.8 x 1.1 cm. No mitral valve vegetation, no tricuspid valve vegetation, no pulmonic valve vegetation. Finding discussed with the patient, all questions answered. REVIEW OF SYSTEMS 12 point review of systems negative unless noted in HPI PHYSICAL EXAM GENERAL APPEARANCE: The patient is awake, alert, and oriented, in no acute cardiopulmonary distress. NEUROLOGICAL: Cranial nerves II-XII grossly intact. Motor is 5/5 in bilateral upper and lower extremities proximal to distal. No sensory deficits. HEENT: Face is symmetric. Pupils are equal and reactive. Extraocular movements are intact. NECK: Supple. No JVD. No thyromegaly. No submental, submandibular, pre- /postauricular, occipital or supraclavicular lymphadenopathy. CHEST: Normal chest expansion. No Telemetry. LUNGS: Absence of any rales, rhonchi or any wheezing. CARDIOVASCULAR: Regular. S1 and S2 normal. No appreciable rubs, murmurs or gallops. ABDOMEN: Soft, nontender, and nondistended. There is no rebound, voluntary guarding, or rigidity. : Deferred. No Ortega. EXTREMITIES: Non-edematous and not cyanotic. No clubbing. Good capillary refill. SKIN: No skin breakdown. Vital Signs (last 8hr) Date Time Temp Pulse Resp B/P (MAP) Pulse Ox O2 Delivery O2 Flow Rate FiO2 01/12/25 11:00 97.7 88 20 132/81 99 Room Air 01/12/25 07:00 97.7 74 20 140/85 95 Room Air LABS: Laboratory: Test 01/12/25 11:01 01/12/25 10:49 01/12/25 10:00 01/12/25 03:37 Range/Units Whole Blood Glucose 116 H 70-110 MG/DL Bedside Glucose Comment Notified Nurse Blood Gas Specimen Type Venous Arterial Blood Oxygen Saturation 89.0 L 94.0-98.0 % Venous Blood pH 7.447 H 7.320-7.430 Venous Blood pCO2 at Patient Temp 25 L 38-54 Venous Blood pO2 at Patient Temp 51.9 H 23.0-48.0 mmHg Venous Blood HCO3 17.0 L 22.0-29.0 Venous Blood Base Excess -5.1 L -2.0-3.0 Blood Gas Temperature 37.0 35.5-37.0 CELSIUS Blood Gas Vent Mode VBG ROOM AIR FiO2 21.0 % Blood Gas Specimen Comment [id number] Activated Partial Thromboplast Time > 139.0 #*H 26.3-35.5 SEC White Blood Count 13.4 H 4.8-10.8 K/uL Red Blood Count 4.25 L 4.50-6.20 MIL/uL Hemoglobin 13.7 L 14.0-18.0 g/dL Hematocrit 39.8 L 42-54 % Mean Corpuscular Volume 93.6 79-99 fL Mean Corpuscular Hemoglobin 32.2 27.0-33.0 pg Mean Corpuscular Hemoglobin Concent 34.4 32.0-36.0 g/dL Red Cell Distribution Width 14.0 11.0-15.5 % Platelet Count 135 130-400 K/uL Mean Platelet Volume 10.9 H 7.5-10.5 fL Immature Granulocyte % (Auto) 1.2 H 0-1 % Neutrophils (%) (Auto) 87.5 H 40.0-77.0 % Lymphocytes (%) (Auto) 6.6 L 21.0-51.0 % Monocytes (%) (Auto) 4.5 3.0-13.0 % Eosinophils (%) (Auto) 0.1 0.0-8.0 % Basophils (%) (Auto) 0.1 0.0-5.0 % Neutrophils # (Auto) 11.7 H 1.8-7.7 K/uL Lymphocytes # (Auto) 0.9 L 1.0-4.8 K/uL Monocytes # (Auto) 0.6 0.1-1.0 K/uL Eosinophils # (Auto) 0.02 0.00-0.70 K/uL Basophils # (Auto) 0.01 0.00-0.20 K/uL Absolute Immature Granulocyte (auto 0.16 0-1 K/uL Nucleated Red Blood Cells 0.0 0.0-0.19 % White Cell Morphology Comment See comments Sodium Level 140 136-145 mmol/L Potassium Level 4.1 3.5-5.1 mmol/L Chloride Level 112 H 101-111 mmol/L Carbon Dioxide Level 17 L 21-32 mmol/L Blood Urea Nitrogen 48 H 7-18 mg/dL Creatinine 1.6 H 0.5-1.3 mg/dL Glomerular Filtration Rate Calc 54 >90 mL/min Random Glucose 157 H 70-105 mg/dL Whole Blood Ketones Quantitative 0.1 0.0-0.6 mmol/L Total Calcium 6.9 L 8.5-10.1 mg/dL Total Bilirubin 1.1 #H 0.2-1.0 mg/dL Aspartate Amino Transf (AST/SGOT) 21 10-37 U/L Alanine Aminotransferase (ALT/SGPT) 22 # 12-78 U/L Alkaline Phosphatase 96 50-136 U/L Ammonia 22 11-32 umol/L Total Protein 6.0 6.0-8.3 g/dL Albumin 1.9 L 3.5-5.0 g/dL Test 01/11/25 14:48 01/11/25 03:13 01/11/25 01:36 Range/Units Prothrombin Time 11.9 H 9.6-11.6 SEC Prothromb Time International Ratio 1.07 0.85-1.15 Arterial Blood pH 7.475 H 7.350-7.450 Arterial Blood Partial Pressure CO2 21 L 35-48 mmHg Arterial Blood Partial Pressure O2 99.6 83.0-108.0 mmHg Arterial Blood HCO3 15.3 L 21.0-28.0 mmol/L Arterial Blood Base Excess -5.7 L -2.0-3.0 mmol/L Hemoglobin (Blood Gas) 15.7 13.5-17.5 g/dL Sodium (Blood Gas) 142 136-145 MMOL/L Bedside Potassium (Blood Gas) 3.8 3.4-4.5 MMOL/L Bedside Chloride (Blood Gas) 114 H 98-107 MMOL/L Bedside Glucose (Blood Gas) 163 H 65-95 MG/DL Bedside Ionized Calcium (Blood Gas) 1.10 L 1.15-1.33 MMOL/L Bedside Lactic Acid (Blood Gas) 1.62 H 0.36-0.75 MMOL/L Venous Blood Total Hemoglobin 6.4 #*L 13.5-17.5 Current Medications Medications (Trade) Dose Ordered Sig/Asya Route PRN Reason Start Time Stop Time Status Last Admin Dose Admin Acetaminophen (TYLenol 325MG TAB) 650 mg Q6H PRN PO TEMPERATURE GREATER THAN 101.5 01/05/25 02:30 02/04/25 02:29 01/08/25 04:21 650 MG Aspirin (Aspirin 81mg Chew Tab) 81 mg DAILY PO 2/6/25 09:00 01/05/25 09:53 DC Benzocaine (Cepacol Sore Throat Lozenge) 1 each Q4H PRN MM SORE THROAT 01/05/25 02:30 02/04/25 02:29 Calcium Gluconate 1 gm/Sodium Chloride 100 ml @ 0 mls/hr AD PRN IV Serum Calcium Correction 01/08/25 02:30 02/07/25 02:29 01/08/25 23:32 90 MLS/HR Cefazolin Sodium (Ancef) 2 gm Q12H IVPB 01/07/25 13:30 01/24/25 21:00 01/12/25 00:52 2 GM Chlordiazepoxide HCl (LIBrium 25 MG CAP) 25 mg Q8H PO 01/05/25 02:30 01/11/25 11:39 DC 01/10/25 22:23 25 MG Chlordiazepoxide HCl (LIBrium 25 MG CAP) 25 mg Q8H PRN PO WITHDRAWAL 01/11/25 12:00 01/12/25 02:29 DC Dexamethasone Sodium Phosphate 20 mg/Sodium Chloride 52 ml @ 100 mls/hr DAILY IV 01/09/25 09:00 02/08/25 08:59 01/12/25 11:03 100 MLS/HR Dexamethasone Sodium Phosphate 40 mg/Sodium Chloride 50 ml @ 100 mls/hr DAILY IV 01/06/25 14:00 01/08/25 12:16 DC 01/08/25 09:34 100 MLS/HR Dextrose (D50w) 50 ml AD PRN IV HYPOGLYCEMIA PROTOCOL 01/05/25 10:00 02/04/25 09:59 Doxycycline Hyclate 250 ml @ 125 mls/hr Q12H IV 01/05/25 10:00 01/06/25 21:05 DC 01/06/25 09:30 125 MLS/HR Doxycycline Hyclate 250 ml @ 125 mls/hr Q12H IV 01/06/25 21:30 01/16/25 21:29 01/12/25 10:58 125 MLS/HR Fluconazole (DiFLUCan 100 mg TAB) 200 mg DAILY PO 01/12/25 09:00 02/11/25 08:59 01/12/25 10:55 200 MG Folic Acid (FOLic ACID 1 MG TABLET) 1 mg DAILY PO 01/07/25 10:30 02/06/25 10:29 01/12/25 10:52 1 MG Furosemide (LASix 20MG VIAL) 20 mg Q12H IV 01/07/25 16:00 01/11/25 00:56 DC 01/10/25 19:40 20 MG Glucagon (Glucagon 1mg Kit) 1 mg AD PRN IM HYPOGLYCEMIA PROTOCOL 01/05/25 10:00 02/04/25 09:59 Heparin Sodium/ Dextrose 250 ml @ 0 mls/hr PROTOCOL IV 01/11/25 14:30 02/10/25 14:29 01/12/25 03:34 20.72 MLS/HR Hydralazine HCl (APRESOLine 20MG INJ) 5 mg Q6H PRN IV For:SBP above 160;DBP above 90 01/05/25 14:30 02/04/25 14:29 01/10/25 22:24 5 MG Hydralazine HCl (APRESOLine 20MG INJ) 10 mg Q6H PRN IV For:SBP above 160;DBP above 90 01/05/25 02:30 01/05/25 09:53 DC Insulin Glargine (LANtus 100 UNITS/ML 10 ML VIAL) 15 units Q12H SQ 01/07/25 21:30 01/09/25 23:18 DC 01/09/25 13:10 15 UNITS Insulin Glargine (LANtus 100 UNITS/ML 10 ML VIAL) 20 units HS SQ 01/06/25 21:00 01/06/25 21:05 DC Insulin Glargine (LANtus 100 UNITS/ML 10 ML VIAL) 20 units HS SQ 01/06/25 21:30 01/07/25 10:24 DC 01/06/25 21:33 20 UNITS Insulin Glargine (LANtus 100 UNITS/ML 10 ML VIAL) 20 units Q12H SQ 01/10/25 09:30 01/10/25 12:58 DC Insulin Glargine (LANtus 100 UNITS/ML 10 ML VIAL) 25 units Q12H SQ 01/10/25 21:30 01/11/25 00:50 DC 01/10/25 22:19 25 UNITS Insulin Glargine (LANtus 100 UNITS/ML 10 ML VIAL) 30 units DAILY SQ 01/12/25 09:00 02/10/25 09:29 01/12/25 11:25 30 UNITS Insulin Glargine (LANtus 100 UNITS/ML 10 ML VIAL) 30 units Q12H SQ 01/11/25 09:30 01/11/25 20:13 DC 01/11/25 10:50 30 UNITS Insulin Human Regular (humuLIN R 100 UNIT/ML 3ML) 8 unit TIDAC SQ 01/11/25 07:30 02/10/25 07:29 01/11/25 16:22 8 UNIT Insulin Human Regular (humuLIN R 100 UNIT/ML 3ML) INSULIN SLIDING SCAL... ACHS SQ 01/05/25 07:30 01/05/25 09:57 DC 01/05/25 07:59 16 UNIT Insulin Human Regular (humuLIN R 100 UNIT/ML 3ML) INSULIN SLIDING SCAL... ACHS SQ 01/05/25 11:30 01/06/25 16:43 DC 01/06/25 11:50 8 UNIT Insulin Human Regular (humuLIN R 100 UNIT/ML 3ML) INSULIN SLIDING SCAL... ACHS SQ 01/06/25 17:00 01/07/25 13:32 DC 01/06/25 17:17 16 UNIT Insulin Human Regular (humuLIN R 100 UNIT/ML 3ML) INSULIN SLIDING SCAL... Q4H SQ 01/11/25 02:00 01/11/25 23:59 DC 01/11/25 20:49 6 UNIT Insulin Human Regular (humuLIN R 100 UNIT/ML 3ML) INSULIN SLIDING SCAL... Q4H SQ 01/11/25 23:59 02/10/25 23:58 01/12/25 01:05 6 UNIT Insulin Human Regular (humuLIN R 100 UNIT/ML 3ML) INSULIN SLIDING SCAL... Q6H6 SQ 01/10/25 18:00 01/11/25 00:50 DC 01/11/25 00:45 10 UNIT Insulin Human Regular 100 unit/ Sodium Chloride 100 ml @ 0 mls/hr AD PRN IV HYPERGLYCEMIA PROTOCOL 01/06/25 19:30 01/10/25 06:00 DC 01/09/25 19:10 16 MLS/HR Lactated Ringer's 1,000 ml @ 100 mls/hr Q10H IV 01/05/25 02:30 01/05/25 09:51 DC 01/05/25 02:30 100 MLS/HR Lactated Ringer's 1,000 ml @ 125 mls/hr Q8H IV 01/10/25 01:30 01/10/25 19:40 DC 01/10/25 13:07 125 MLS/HR Lactobacillus Rhamnosus ([facility] [employer]) 1 each DAILY PO 01/12/25 09:00 02/11/25 08:59 01/12/25 10:56 1 EACH Lorazepam (AtiVAN) 1 mg Q4H PRN IVP ALCOHOL WITHDRAWAL PROTOCOL 01/05/25 02:30 01/12/25 02:29 DC Magnesium Sulfate 50 ml @ 0 mls/hr PROTOCOL PRN IV h 01/05/25 02:30 02/04/25 02:29 01/05/25 03:24 25 MLS/HR Morphine Sulfate (morPHINE 2MG SYG) 2 mg Q4H PRN IVP SEVERE PAIN (7-10) 01/05/25 02:30 01/12/25 02:29 DC Multivitamins Therapeutic (Multivitamin Tablet) 1 tab DAILY PO 01/07/25 10:30 02/06/25 10:29 01/12/25 10:56 1 TAB Nicotine (Nicoderm) 21 mg DAILY TD 01/05/25 09:00 02/04/25 08:59 01/12/25 10:57 21 MG Nitroglycerin (Nitrostat) 0.4 mg AD PRN SL CHEST PAIN 01/05/25 02:30 02/04/25 02:29 Ondansetron HCl (zoFRAN 4MG INJ) 4 mg Q6H PRN IV NAUSEA/VOMITING 01/05/25 02:30 02/04/25 02:29 Pantoprazole Sodium (PROTonix 40MG TAB) 40 mg DAILY PO 01/05/25 09:00 02/04/25 08:59 01/12/25 10:52 40 MG Pharmacy Profile Note (Pharmacy Communication) 1 each PROTOCOL PRN MISC ETOH Withdrawal Score changes 01/05/25 02:30 01/12/25 02:29 DC Piperacillin Sod/ Tazobactam Sod (Zosyn 3.375gm+NS 50ml) 3.375 gm Q12H IV 01/05/25 02:30 01/07/25 13:24 DC 01/07/25 02:45 3.375 GM Potassium Phosphate 250 ml @ 42 mls/hr PROTOCOL PRN IV PROTOCOL 01/05/25 10:00 02/04/25 09:59 Potassium Chloride 100 ml @ 100 mls/hr AD PRN IV POTASSIUM PROTOCOL 01/05/25 02:30 01/07/25 10:12 DC Potassium Chloride 100 ml @ 100 mls/hr AD PRN IV POTASSIUM PROTOCOL 01/07/25 10:30 02/06/25 10:29 01/09/25 06:26 100 MLS/HR Potassium Chloride (K-Dur 10meq Sr Tab) 10 meq AD PRN PO POTASSIUM PROTOCOL 01/06/25 09:30 02/04/25 02:29 01/08/25 23:35 10 MEQ Potassium Chloride (K-Dur/Klor-Con 20meq) 10 meq AD PRN PO POTASSIUM PROTOCOL 01/05/25 02:30 01/06/25 09:12 DC 01/05/25 22:15 10 MEQ Potassium Chloride (K-Dur/Klor-Con 20meq) 10 meq AD PRN PO POTASSIUM PROTOCOL 01/07/25 10:30 01/07/25 10:12 DC Potassium Chloride (KCl 10% Elixir 20meq/15ml) 10 meq AD PRN PO POTASSIUM PROTOCOL 01/05/25 02:30 01/07/25 10:12 DC 01/06/25 17:16 10 MEQ Potassium Chloride (KCl 10% Elixir 20meq/15ml) 10 meq AD PRN PO POTASSIUM PROTOCOL 01/07/25 10:30 02/06/25 10:29 01/08/25 15:28 10 MEQ Sodium Bicarbonate (Sodium Bicarbonate) 1,300 mg BID PO 01/11/25 09:00 02/10/25 08:59 01/12/25 10:55 1,300 MG Sodium Chloride 1,000 ml @ 50 mls/hr Q20H IV 01/05/25 10:00 01/10/25 01:33 DC 01/09/25 05:56 50 MLS/HR Sodium Chloride 1,000 ml @ 75 mls/hr [id number] IV 01/11/25 01:00 01/11/25 13:45 DC 01/11/25 01:00 75 MLS/HR Triamcinolone Acetonide (Kenalog/ Aristocort) 1 APPLY TP BID BID TP 01/07/25 11:00 02/06/25 10:59 01/12/25 10:58 1 APPL Vancomycin HCl (Vancomycin Protocol) 1 each AD IV 01/07/25 12:30 01/07/25 12:40 DC DIAGNOSTICS / RADIOLOGY: [ ] ASSESSMENT: Severe sepsis, POA Gram-positive bacteremia secondary to Staphylococcus aureus, POA Hypodense echogenic mobile vegetation to right coronary cusp leaflet on echocardiogram 01/05/2025 Left atrial appendage clot present. on DRAKE 01/11 non coronary cusp leaflet has vegetation that measures 1.8 x 1.1 cm. on DRAKE 01/11 Urinary tract infection, secondary to Klebsiella pneumoniae, POA Strep pharyngitis, POA ITP, POA Leukocytosis, POA Hyperlactatemia, POA Acute kidney injury, POA Hypokalemia, POA Hyponatremia, POA Hypomagnesemia, POA POA New onset Uncontrolled Diabetes mellitius type2, POA Elevated troponin, POA Cocaine abuse, POA Alcohol abuse, POA Tobacco dependence, POA Significant proteinuria, POA Diabetic nephropathy, POA Gallstones, POA Fidelina esophagitis on EGD 01/11 PLAN: -patient remains admitted to the PCU -continue the patient on broad-spectrum IV antibiotics -results of DRAKE reviewed, Left atrial appendage clot present. on RDAKE 01/11, non coronary cusp leaflet has vegetation that measures 1.8 x 1.1 cm. on DRAKE 01/11 -continue heparin drip. Cardiology input noted and appreciated -platelet count improving, thrombocytopenia likely multifactorial including ITP. Continue to follow Hematology input and recommendation -renal function slightly improved today, patient evaluated by softball player, the patient with significant proteinuria on UA consistent with diabetic nephropathy. No acute need for any form of renal replacement therapy. -blood culture positive for Staphylococcus aureus. Urine culture positive for Klebsiella pneumoniae. Continue broad-spectrum IV antibiotics, continue to follow ID input recommendation. -case discussed with case management, patient to complete course of IV antibiotics likely during this hospitalization as the patient is uninsured. Disposition: Pending improvement in clinical condition. We will downgraded to the medical floor. All questions answered time spent: > 35 min MAHOGANY CARBAJAL MD Jan 12, 2025 12:41
--- NOTE | 2025-01-12 15:43 | PN ---
GASTROENTEROLOGY PROGRESS NOTE Date of Visit: Jan 12, 2025 Time of Visit: 15:43 Events / Notes: No acute events overnight. Patient had EGD revealing LA Grade B esophagitis. Denies fever, chills, abdominal pain, N/V, hematemesis, bloating, constipation, diarrhea, melena or hematochezia. Review of Systems: CONSTITUTIONAL: No malaise or change in sensation of wellbeing. ENMT: No rhinorrhea, otorrhea, sinus pain, ear ache. CARDIOVASCULAR: No angina, palpitations, orthopnea or paroxysmal dyspnea. RESPIRATORY: No SOB. GASTROINTESTINAL: No abdominal pain, nausea, vomiting, diarrhea, hematemesis, melena or change in the patient's habitual bowel movements consistency/number. GENITOURINARY: No dysuria, hematuria or change in bladder continence. MUSCULOSKELETAL: No new muscle pain or decrease in muscular strength. No new joint swelling, redness or tenderness. SKIN: No new rash. Physical Exam: GEN: Awake, alert, oriented in person, time and place, and in no acute distress. HEENT: No sinus tenderness. Tympanic membranes were not examined. No rhinorrhea. Oral pharyngeal mucosa is pink, moist and within normal limits. Neck is supple with no cervical lymphadenopathy, thyromegaly or JVD. CHEST: Inspection, palpation and percussion of the chest were unremarkable. Lung auscultation revealed normal breath sounds bilaterally. CARDIAC: PMI is within normal limits. Heart sounds are regular. Normal S1, S2. No gallop or murmur. ABD: Soft, non-tender and not distended. No peritoneal signs on palpation. No organomegaly. Normal bowel sounds. EXT: No cyanosis or clubbing. No edema. SKIN: Intact. No rashes. JOINTS: No evidence of synovitis or acute arthritis. NEURO: Alert and oriented to name, place and person. Cranial nerve examination is unremarkable. No focal motor deficits. Normal speech. Gait is normal. Strength is normal. Vital Signs (last 8hr) Date Time Temp Pulse Resp B/P (MAP) Pulse Ox O2 Delivery O2 Flow Rate FiO2 01/12/25 11:00 97.7 88 20 132/81 99 Room Air 01/12/25 08:00 96 Room Air* 0 21 01/12/25 08:00 99 Room Air* 0 21 Laboratory: [ ] Laboratory: Test 01/12/25 11:01 01/12/25 10:49 01/12/25 10:00 01/12/25 03:37 Range/Units Whole Blood Glucose 116 H 70-110 MG/DL Bedside Glucose Comment Notified Nurse Blood Gas Specimen Type Venous Arterial Blood Oxygen Saturation 89.0 L 94.0-98.0 % Venous Blood pH 7.447 H 7.320-7.430 Venous Blood pCO2 at Patient Temp 25 L 38-54 Venous Blood pO2 at Patient Temp 51.9 H 23.0-48.0 mmHg Venous Blood HCO3 17.0 L 22.0-29.0 Venous Blood Base Excess -5.1 L -2.0-3.0 Blood Gas Temperature 37.0 35.5-37.0 CELSIUS Blood Gas Vent Mode VBG ROOM AIR FiO2 21.0 % Blood Gas Specimen Comment [id number] Activated Partial Thromboplast Time > 139.0 #*H 26.3-35.5 SEC White Blood Count 13.4 H 4.8-10.8 K/uL Red Blood Count 4.25 L 4.50-6.20 MIL/uL Hemoglobin 13.7 L 14.0-18.0 g/dL Hematocrit 39.8 L 42-54 % Mean Corpuscular Volume 93.6 79-99 fL Mean Corpuscular Hemoglobin 32.2 27.0-33.0 pg Mean Corpuscular Hemoglobin Concent 34.4 32.0-36.0 g/dL Red Cell Distribution Width 14.0 11.0-15.5 % Platelet Count 135 130-400 K/uL Mean Platelet Volume 10.9 H 7.5-10.5 fL Immature Granulocyte % (Auto) 1.2 H 0-1 % Neutrophils (%) (Auto) 87.5 H 40.0-77.0 % Lymphocytes (%) (Auto) 6.6 L 21.0-51.0 % Monocytes (%) (Auto) 4.5 3.0-13.0 % Eosinophils (%) (Auto) 0.1 0.0-8.0 % Basophils (%) (Auto) 0.1 0.0-5.0 % Neutrophils # (Auto) 11.7 H 1.8-7.7 K/uL Lymphocytes # (Auto) 0.9 L 1.0-4.8 K/uL Monocytes # (Auto) 0.6 0.1-1.0 K/uL Eosinophils # (Auto) 0.02 0.00-0.70 K/uL Basophils # (Auto) 0.01 0.00-0.20 K/uL Absolute Immature Granulocyte (auto 0.16 0-1 K/uL Nucleated Red Blood Cells 0.0 0.0-0.19 % White Cell Morphology Comment See comments Sodium Level 140 136-145 mmol/L Potassium Level 4.1 3.5-5.1 mmol/L Chloride Level 112 H 101-111 mmol/L Carbon Dioxide Level 17 L 21-32 mmol/L Blood Urea Nitrogen 48 H 7-18 mg/dL Creatinine 1.6 H 0.5-1.3 mg/dL Glomerular Filtration Rate Calc 54 >90 mL/min Random Glucose 157 H 70-105 mg/dL Whole Blood Ketones Quantitative 0.1 0.0-0.6 mmol/L Total Calcium 6.9 L 8.5-10.1 mg/dL Total Bilirubin 1.1 #H 0.2-1.0 mg/dL Aspartate Amino Transf (AST/SGOT) 21 10-37 U/L Alanine Aminotransferase (ALT/SGPT) 22 # 12-78 U/L Alkaline Phosphatase 96 50-136 U/L Ammonia 22 11-32 umol/L Total Protein 6.0 6.0-8.3 g/dL Albumin 1.9 L 3.5-5.0 g/dL Test 01/11/25 14:48 01/11/25 03:13 01/11/25 01:36 Range/Units Prothrombin Time 11.9 H 9.6-11.6 SEC Prothromb Time International Ratio 1.07 0.85-1.15 Arterial Blood pH 7.475 H 7.350-7.450 Arterial Blood Partial Pressure CO2 21 L 35-48 mmHg Arterial Blood Partial Pressure O2 99.6 83.0-108.0 mmHg Arterial Blood HCO3 15.3 L 21.0-28.0 mmol/L Arterial Blood Base Excess -5.7 L -2.0-3.0 mmol/L Hemoglobin (Blood Gas) 15.7 13.5-17.5 g/dL Sodium (Blood Gas) 142 136-145 MMOL/L Bedside Potassium (Blood Gas) 3.8 3.4-4.5 MMOL/L Bedside Chloride (Blood Gas) 114 H 98-107 MMOL/L Bedside Glucose (Blood Gas) 163 H 65-95 MG/DL Bedside Ionized Calcium (Blood Gas) 1.10 L 1.15-1.33 MMOL/L Bedside Lactic Acid (Blood Gas) 1.62 H 0.36-0.75 MMOL/L Venous Blood Total Hemoglobin 6.4 #*L 13.5-17.5 Current Medications Medications (Trade) Dose Ordered Sig/Asya Route PRN Reason Start Time Stop Time Status Last Admin Dose Admin Acetaminophen (TYLenol 325MG TAB) 650 mg Q6H PRN PO TEMPERATURE GREATER THAN 101.5 01/05/25 02:30 02/04/25 02:29 01/08/25 04:21 650 MG Aspirin (Aspirin 81mg Chew Tab) 81 mg DAILY PO 01/05/25 09:00 01/05/25 09:53 DC Benzocaine (Cepacol Sore Throat Lozenge) 1 each Q4H PRN MM SORE THROAT 01/05/25 02:30 02/04/25 02:29 Calcium Gluconate 1 gm/Sodium Chloride 100 ml @ 0 mls/hr AD PRN IV Serum Calcium Correction 01/08/25 02:30 02/07/25 02:29 01/08/25 23:32 90 MLS/HR Cefazolin Sodium (Ancef) 2 gm Q12H IVPB 01/07/25 13:30 01/24/25 21:00 01/12/25 15:24 2 GM Chlordiazepoxide HCl (LIBrium 25 MG CAP) 25 mg Q8H PO 01/05/25 02:30 01/11/25 11:39 DC 01/10/25 22:23 25 MG Chlordiazepoxide HCl (LIBrium 25 MG CAP) 25 mg Q8H PRN PO WITHDRAWAL 01/11/25 12:00 01/12/25 02:29 DC Dexamethasone Sodium Phosphate 20 mg/Sodium Chloride 52 ml @ 100 mls/hr DAILY IV 01/09/25 09:00 02/08/25 08:59 01/12/25 11:03 100 MLS/HR Dexamethasone Sodium Phosphate 40 mg/Sodium Chloride 50 ml @ 100 mls/hr DAILY IV 01/06/25 14:00 01/08/25 12:16 DC 01/08/25 09:34 100 MLS/HR Dextrose (D50w) 50 ml AD PRN IV HYPOGLYCEMIA PROTOCOL 2/6/25 10:00 02/04/25 09:59 Doxycycline Hyclate 250 ml @ 125 mls/hr Q12H IV 01/05/25 10:00 01/06/25 21:05 DC 01/06/25 09:30 125 MLS/HR Doxycycline Hyclate 250 ml @ 125 mls/hr Q12H IV 01/06/25 21:30 01/16/25 21:29 01/12/25 10:58 125 MLS/HR Fluconazole (DiFLUCan 100 mg TAB) 200 mg DAILY PO 01/12/25 09:00 02/11/25 08:59 01/12/25 10:55 200 MG Folic Acid (FOLic ACID 1 MG TABLET) 1 mg DAILY PO 01/07/25 10:30 02/06/25 10:29 01/12/25 10:52 1 MG Furosemide (LASix 20MG VIAL) 20 mg Q12H IV 01/07/25 16:00 01/11/25 00:56 DC 01/10/25 19:40 20 MG Glucagon (Glucagon 1mg Kit) 1 mg AD PRN IM HYPOGLYCEMIA PROTOCOL 01/05/25 10:00 02/04/25 09:59 Heparin Sodium/ Dextrose 250 ml @ 0 mls/hr PROTOCOL IV 01/11/25 14:30 02/10/25 14:29 01/12/25 03:34 20.72 MLS/HR Hydralazine HCl (APRESOLine 20MG INJ) 5 mg Q6H PRN IV For:SBP above 160;DBP above 90 01/05/25 14:30 02/04/25 14:29 01/10/25 22:24 5 MG Hydralazine HCl (APRESOLine 20MG INJ) 10 mg Q6H PRN IV For:SBP above 160;DBP above 90 01/05/25 02:30 01/05/25 09:53 DC Insulin Glargine (LANtus 100 UNITS/ML 10 ML VIAL) 15 units Q12H SQ 01/07/25 21:30 01/09/25 23:18 DC 01/09/25 13:10 15 UNITS Insulin Glargine (LANtus 100 UNITS/ML 10 ML VIAL) 20 units HS SQ 01/06/25 21:00 01/06/25 21:05 DC Insulin Glargine (LANtus 100 UNITS/ML 10 ML VIAL) 20 units HS SQ 01/06/25 21:30 01/07/25 10:24 DC 01/06/25 21:33 20 UNITS Insulin Glargine (LANtus 100 UNITS/ML 10 ML VIAL) 20 units Q12H SQ 01/10/25 09:30 01/10/25 12:58 DC Insulin Glargine (LANtus 100 UNITS/ML 10 ML VIAL) 25 units Q12H SQ 01/10/25 21:30 01/11/25 00:50 DC 01/10/25 22:19 25 UNITS Insulin Glargine (LANtus 100 UNITS/ML 10 ML VIAL) 30 units DAILY SQ 01/12/25 09:00 02/10/25 09:29 01/12/25 11:25 30 UNITS Insulin Glargine (LANtus 100 UNITS/ML 10 ML VIAL) 30 units Q12H SQ 01/11/25 09:30 01/11/25 20:13 DC 01/11/25 10:50 30 UNITS Insulin Human Regular (humuLIN R 100 UNIT/ML 3ML) 8 unit TIDAC SQ 01/11/25 07:30 02/10/25 07:29 01/11/25 16:22 8 UNIT Insulin Human Regular (humuLIN R 100 UNIT/ML 3ML) INSULIN SLIDING SCAL... ACHS SQ 01/05/25 07:30 01/05/25 09:57 DC 01/05/25 07:59 16 UNIT Insulin Human Regular (humuLIN R 100 UNIT/ML 3ML) INSULIN SLIDING SCAL... ACHS SQ 01/05/25 11:30 01/06/25 16:43 DC 01/06/25 11:50 8 UNIT Insulin Human Regular (humuLIN R 100 UNIT/ML 3ML) INSULIN SLIDING SCAL... ACHS SQ 01/06/25 17:00 01/07/25 13:32 DC 01/06/25 17:17 16 UNIT Insulin Human Regular (humuLIN R 100 UNIT/ML 3ML) INSULIN SLIDING SCAL... Q4H SQ 01/11/25 02:00 01/11/25 23:59 DC 01/11/25 20:49 6 UNIT Insulin Human Regular (humuLIN R 100 UNIT/ML 3ML) INSULIN SLIDING SCAL... Q4H SQ 01/11/25 23:59 02/10/25 23:58 01/12/25 01:05 6 UNIT Insulin Human Regular (humuLIN R 100 UNIT/ML 3ML) INSULIN SLIDING SCAL... Q6H6 SQ 01/10/25 18:00 01/11/25 00:50 DC 01/11/25 00:45 10 UNIT Insulin Human Regular 100 unit/ Sodium Chloride 100 ml @ 0 mls/hr AD PRN IV HYPERGLYCEMIA PROTOCOL 01/06/25 19:30 01/10/25 06:00 DC 01/09/25 19:10 16 MLS/HR Lactated Ringer's 1,000 ml @ 100 mls/hr Q10H IV 01/05/25 02:30 01/05/25 09:51 DC 01/05/25 02:30 100 MLS/HR Lactated Ringer's 1,000 ml @ 125 mls/hr Q8H IV 01/10/25 01:30 01/10/25 19:40 DC 01/10/25 13:07 125 MLS/HR Lactobacillus Rhamnosus ([facility] [employer]) 1 each DAILY PO 01/12/25 09:00 02/11/25 08:59 01/12/25 10:56 1 EACH Lorazepam (AtiVAN) 1 mg Q4H PRN IVP ALCOHOL WITHDRAWAL PROTOCOL 01/05/25 02:30 01/12/25 02:29 DC Magnesium Sulfate 50 ml @ 0 mls/hr PROTOCOL PRN IV h 01/05/25 02:30 02/04/25 02:29 01/05/25 03:24 25 MLS/HR Morphine Sulfate (morPHINE 2MG SYG) 2 mg Q4H PRN IVP SEVERE PAIN (7-10) 01/05/25 02:30 01/12/25 02:29 DC Multivitamins Therapeutic (Multivitamin Tablet) 1 tab DAILY PO 01/07/25 10:30 02/06/25 10:29 01/12/25 10:56 1 TAB Nicotine (Nicoderm) 21 mg DAILY TD 01/05/25 09:00 02/04/25 08:59 01/12/25 10:57 21 MG Nitroglycerin (Nitrostat) 0.4 mg AD PRN SL CHEST PAIN 01/05/25 02:30 02/04/25 02:29 Ondansetron HCl (zoFRAN 4MG INJ) 4 mg Q6H PRN IV NAUSEA/VOMITING 01/05/25 02:30 02/04/25 02:29 Pantoprazole Sodium (PROTonix 40MG TAB) 40 mg DAILY PO 01/05/25 09:00 02/04/25 08:59 01/12/25 10:52 40 MG Pharmacy Profile Note (Pharmacy Communication) 1 each PROTOCOL PRN MISC ETOH Withdrawal Score changes 01/05/25 02:30 01/12/25 02:29 DC Piperacillin Sod/ Tazobactam Sod (Zosyn 3.375gm+NS 50ml) 3.375 gm Q12H IV 01/05/25 02:30 01/07/25 13:24 DC 01/07/25 02:45 3.375 GM Potassium Phosphate 250 ml @ 42 mls/hr PROTOCOL PRN IV PROTOCOL 01/05/25 10:00 02/04/25 09:59 Potassium Chloride 100 ml @ 100 mls/hr AD PRN IV POTASSIUM PROTOCOL 01/05/25 02:30 01/07/25 10:12 DC Potassium Chloride 100 ml @ 100 mls/hr AD PRN IV POTASSIUM PROTOCOL 01/07/25 10:30 02/06/25 10:29 01/09/25 06:26 100 MLS/HR Potassium Chloride (K-Dur 10meq Sr Tab) 10 meq AD PRN PO POTASSIUM PROTOCOL 01/06/25 09:30 02/04/25 02:29 01/08/25 23:35 10 MEQ Potassium Chloride (K-Dur/Klor-Con 20meq) 10 meq AD PRN PO POTASSIUM PROTOCOL 01/05/25 02:30 01/06/25 09:12 DC 01/05/25 22:15 10 MEQ Potassium Chloride (K-Dur/Klor-Con 20meq) 10 meq AD PRN PO POTASSIUM PROTOCOL 01/07/25 10:30 01/07/25 10:12 DC Potassium Chloride (KCl 10% Elixir 20meq/15ml) 10 meq AD PRN PO POTASSIUM PROTOCOL 01/05/25 02:30 01/07/25 10:12 DC 01/06/25 17:16 10 MEQ Potassium Chloride (KCl 10% Elixir 20meq/15ml) 10 meq AD PRN PO POTASSIUM PROTOCOL 01/07/25 10:30 02/06/25 10:29 01/08/25 15:28 10 MEQ Sodium Bicarbonate (Sodium Bicarbonate) 1,300 mg BID PO 01/11/25 09:00 02/10/25 08:59 01/12/25 10:55 1,300 MG Sodium Chloride 1,000 ml @ 50 mls/hr Q20H IV 01/05/25 10:00 01/10/25 01:33 DC 01/09/25 05:56 50 MLS/HR Sodium Chloride 1,000 ml @ 75 mls/hr [id number] IV 01/11/25 01:00 01/11/25 13:45 DC 01/11/25 01:00 75 MLS/HR Triamcinolone Acetonide (Kenalog/ Aristocort) 1 APPLY TP BID BID TP 01/07/25 11:00 02/06/25 10:59 01/12/25 10:58 1 APPL Vancomycin HCl (Vancomycin Protocol) 1 each AD IV 01/07/25 12:30 01/07/25 12:40 DC Diagnostics / Radiology: [COPY/PASTE HERE IF NO REPORTS PLEASE DELETE SECTION] Assessment: La Grade B esophagitis Decompensated cirrhosis Thrombocytopenia Abnormal troponin Alcohol abuse Plan: Follow cardio recommendations Will obtain liver serologies to r/o other liver pathology Please contact our service if the patient has significant bleeding such as hematemesis and we can proceed sooner with the EGD Thanks you for allowing us to participate in the care of this patient! HILDA MUIR DEVIL TENDER Jan 12, 2025 15:43
--- NOTE | 2025-01-12 16:40 | PN ---
[facility] PROGRESS NOTE Date Patient Seen: Jan 12, 2025 Time of Visit: 11:33 Supervising Physician: DR. HEIDI MCDERMOTT, Primary Care Physician: Marketing Communications Coordinator PCP Outpatient Specialists: [ ] Inpatient Consults:Critical care, Hematology, cardiology and nephrology PROBLEM LIST: Endocarditis POA DRAKE on 01/11/25 with 1.1 cm aortic valve vegetation and KARINA thrombus Severe sepsis and shock POA, resolving Werner Esophagitis per EGD results 01/11/25 Urinary tract infection, POA Klebsiella pneumoniae cultured in the urine Staph aureus bacteremia POA Strep pharyngitis, POA Acute kidney injury, POA improving Electrolyte derangement POA ( hypokalemia, Hyponatremia) 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 Uncontrolled Diabetes mellitius type2, POA HgA1C 8.5 NTEMI Type II MD POA PolySubstance abuse, POA, (cocaine/Marijuana) Alcohol dependence, POA Tobacco dependence, POA Acute cholecystitis on HIDA scan 01/07/25 POA Hepatomegaly with hepato steatosis MELD score on admission of 31 Morbid obesity Noncompliance behavior INTERVAL HISTORY: 01/11/25- patient is awake alert and oriented x3. Post EGD and DRAKE found to have vegetation in the aortic valve and thrombus in the KARINA, and LVEF of 60- 65%.. Per Hematology started heparin gtt per protocol today. For now patient is hemodynamically stable afebrile heart rate in the 80s respiratory rate of 18 saturating 99% on room air. Patient has a urine output of 4.4 L last night and a balance of-2.2 L. He had 2 bowel movements this morning. Pt continues with ancef IV for MSSA endocarditis. He will need at least 6 weeks of IV abx. WBCs are 12.5 H&H is normal platelet count is 113 K. sodium 145 potassium of 4 carbon dioxide of 22 BUN 59 creatinine 1.8 and GFR of 47 glucose of 102 mg/dL. Patient is stable downgrade from ICU to PCCU. 01/12/25 Patient is a 44 year old gentleman who initially presented with endocarditis and thrombus in the KARINA, placed on Heparin drip by Cattle Tester since platelets count are better there is no report of fever, chills, nausea or vomiting, plan is to continue with CIWA protocol, monitor WBC, kidney function has improved, BS is stable patient remains on room air and antibiotic therapy as well antifungal medication since he is positive for werner in the esophagus, Midline has been inserted for antibiotic otherwise patient requires to be stable in order to evaluate if he will be candidate for surgery . REVIEW OF SYSTEMS: 12 point ROS reviewed with patient. Pertinent positives mentioned above. Otherwise negative. PHYSICAL EXAM: GENERAL: alert, weak, awake oriented x 3 HEENT: EOMI, Sclera non icteric, moist mucosa NECK: Supple, no JVD, trachea midline LUNGS: Clear breath sounds bilaterally. No wheezes HEART: Regular rate and rhythm. Normal S1 and S2, without murmurs ABD: Abdomen soft, nontender. Bowel sounds present EXT: No clubbing cyanosis or edema NEURO: Alert and oriented to person, follows commands Vital Signs (last 8hr) Date Time Temp Pulse Resp B/P (MAP) Pulse Ox O2 Delivery O2 Flow Rate FiO2 01/12/25 11:00 97.7 88 20 132/81 99 Room Air LABS: Hematology Labs: Test 01/12/25 03:37 Range/Units White Blood Count 13.4 H 4.8-10.8 K/uL Red Blood Count 4.25 L 4.50-6.20 MIL/uL Hemoglobin 13.7 L 14.0-18.0 g/dL Hematocrit 39.8 L 42-54 % Mean Corpuscular Volume 93.6 79-99 fL Mean Corpuscular Hemoglobin 32.2 27.0-33.0 pg Mean Corpuscular Hemoglobin Concent 34.4 32.0-36.0 g/dL Red Cell Distribution Width 14.0 11.0-15.5 % Platelet Count 135 130-400 K/uL Mean Platelet Volume 10.9 H 7.5-10.5 fL Immature Granulocyte % (Auto) 1.2 H 0-1 % Neutrophils (%) (Auto) 87.5 H 40.0-77.0 % Lymphocytes (%) (Auto) 6.6 L 21.0-51.0 % Monocytes (%) (Auto) 4.5 3.0-13.0 % Eosinophils (%) (Auto) 0.1 0.0-8.0 % Basophils (%) (Auto) 0.1 0.0-5.0 % Neutrophils # (Auto) 11.7 H 1.8-7.7 K/uL Lymphocytes # (Auto) 0.9 L 1.0-4.8 K/uL Monocytes # (Auto) 0.6 0.1-1.0 K/uL Eosinophils # (Auto) 0.02 0.00-0.70 K/uL Basophils # (Auto) 0.01 0.00-0.20 K/uL Absolute Immature Granulocyte (auto 0.16 0-1 K/uL Nucleated Red Blood Cells 0.0 0.0-0.19 % White Cell Morphology Comment See comments Chemistry Labs: Test 01/12/25 16:05 01/12/25 03:37 Range/Units Whole Blood Glucose 272 #H 70-110 MG/DL Bedside Glucose Comment Notified Nurse Sodium Level 140 136-145 mmol/L Potassium Level 4.1 3.5-5.1 mmol/L Chloride Level 112 H 101-111 mmol/L Carbon Dioxide Level 17 L 21-32 mmol/L Blood Urea Nitrogen 48 H 7-18 mg/dL Creatinine 1.6 H 0.5-1.3 mg/dL Glomerular Filtration Rate Calc 54 >90 mL/min Random Glucose 157 H 70-105 mg/dL Whole Blood Ketones Quantitative 0.1 0.0-0.6 mmol/L Total Calcium 6.9 L 8.5-10.1 mg/dL Total Bilirubin 1.1 #H 0.2-1.0 mg/dL Aspartate Amino Transf (AST/SGOT) 21 10-37 U/L Alanine Aminotransferase (ALT/SGPT) 22 # 12-78 U/L Alkaline Phosphatase 96 50-136 U/L Ammonia 22 11-32 umol/L Total Protein 6.0 6.0-8.3 g/dL Albumin 1.9 L 3.5-5.0 g/dL Coagulation Labs: Test 01/12/25 10:00 01/11/25 14:48 Range/Units Activated Partial Thromboplast Time > 139.0 #*H 26.3-35.5 SEC Prothrombin Time 11.9 H 9.6-11.6 SEC Prothromb Time International Ratio 1.07 0.85-1.15 DIAGNOSTICS / RADIOLOGY RESULTS: [ ] PLAN Continues with antibiotic and antifungal treatment follow site inspector recommendations follow up with setter automatic spinning lathe for further recommendations [facility] protocol NEURO: Minimize central acting medications as possible. Maintain fall precautions, adequate lighting during the day PULMONARY: Supplemental 02 as needed. Maintain aspiration precautions at all times CARDIOVASCULAR: Follow hemodynamics. Vital signs per facility protocol GI & NUTRITION: Continue with nutritional support. Continue stool softeners and laxatives as needed. KIDNEYS & ELECTROLYTES: Strict monitoring of intake, output and overall fluid balance. Avoid nephrotoxic medications to the extent possible. Medications to be dosed according to renal function. Monitor electrolytes and replace as needed ENDOCRINE: Maintain blood glucose between 100-180 at all times. Hypoglycemia protocol in place INFECTIOUS DISEASE: Trend temperature, WBC and procalcitonin level Follow cultures, deescalate antibiotics as soon as possible. Panculture if new onset fever ONCOLOGY/HEMATOLOGY/COAGULATION: Monitor for s/s of bleeding Monitor hemoglobin, coagulation studies as needed SKIN: Pressure ulcer prevention per facility protocol Specialty mattress ORTHO/REHAB: Continue PT/OT Prophylaxis: Continue GI and DVT prophylaxis Code Status: Full Resuscitation ATTESTATION BY PHYSICIAN Documentation assistance provided by a scribe, information recorded by the s cribe was done at my direction and has been reviewed and validated by me." HEIDI LUNDBERG MD I personally scribed for HEIDI LUNDBERG MD ([email or web address]) on 01/12/25 at 16:40. Electronically submitted by Kamilah Diop ([id number]). HEIDI LUNDBERG MD Jan 12, 2025 16:40
--- NOTE | 2025-01-12 17:37 | NUR ---
CM NOTE/POC TAQUERIA spoke to Alexandra BOWMAN with Dr. Garcia. States plan is for valve surgery this admission. Anticipates surgery may be for next week. ID is following patient. TAQUERIA advised Angela SANDY with Dr. Das that sophia long chain beamer IV abx may be an option if IV abx ordered once daily. CM to f/u. Addendum: 01/12/25 at 1739 by REMI GOLD CM Amended: Links added.
--- NOTE | 2025-01-12 20:32 | PN ---
SUBJECTIVE: A 44-year-old gentleman presents with subacute bacterial endocarditis. The patient has a history of alcohol abuse and large vegetation on the aortic valve. No evidence of aortic insufficiency or stenosis and the patient was hemodynamically stable. For the time being, the patient has been optimized medical therapy and stabilized with IV antibiotics. We will reevaluate the possibility for aortic valve replacement in the near future. TID: [id number] RECEIPT: [id number]
--- NOTE | 2025-01-12 21:04 | PN ---
INFECTIOUS DISEASE FOLLOWUP NOTE DATE OF SERVICE: 01/12/2025 SUBJECTIVE: The patient is seen and examined at bedside today. The patient has no fever, no chills. No nausea, no vomiting, no abdominal pain. No cough, no shortness of breath, no palpitation, no orthopnea. No bleeding tendency. The patient has been transferred out of ICU. PHYSICAL EXAMINATION: VITAL SIGNS: Temperature 97.2. EYES: No icterus. Pupils equal and reactive. HENT: No oral thrush seen. Moist oral mucosa. NECK: Supple, no JVD or thyromegaly. LUNGS: Good air entry. No rales, no rhonchi. CARDIOVASCULAR: S1, S2 regular. No murmur heard. ABDOMEN: Obese, soft, nontender. Bowel sounds are present. CENTRAL NERVOUS SYSTEM: Awake, alert and oriented x 3. No focal deficits. SKIN: No rashes, no itchiness. LYMPHATIC: No peripheral lymphadenopathy. BACK: No deformity, no pressure ulcer. ASSESSMENT: * A 44-year-old male with MSSA bacteremia and sepsis. * Endocarditis. * Morbid obesity. * Urinary tract infection. * Cocaine abuse. * Chronic alcohol use. * Chronic tobacco use ____. PLAN: * Continue cefazolin. * Continue pain management. * Continue nutritional support. * Continue antiemetic. * Continue DVT prophylaxis. * Monitor electrolytes. TID: [id number] RECEIPT: [id number]
[2025-01-12] MEDS: HEParin 5,000 UNIT VIAL IV ONE (22:36)
--- NOTE | 2025-01-12 23:21 | NUR ---
@2206pm RECEIVED PTT LEVEL AT 38.0. PER PROTOCOL, NEED TO INCREASE BY 2 UNITS AND GIVE 4,000 UNITS BOLUS X1. HEPARIN IV DRIP INCREASED TO 19 UNITS/KG/HR IV, AND WILL GIVE 4,000 UNITS BOLUS X1. NEXT PTT DUE AT 0330AM.
--- NOTE | 2025-01-12 23:30 | NUR ---
@2214PM RECEIVED CALL FROM [employer] STATED PATIENT HAD A 2.5 SECOND PAUSE. THIS NURSE WENT INTO PATIENT ROOM. PATIENT ASLEEP. WOKE UP PATIENT. PATIENT [id number], RESPIRATIONS EVEN AND UNLABORED. NO S/S OF DISTRESS. DENIES ANY CHEST PAIN. ASYMPTOMATIC. B/P 140/90, R20, 02SATS 100% ROOM AIR, T98.5
--- NOTE | 2025-01-12 23:41 | NUR ---
RECEIVED CALL BACK FROM Kyaw BAUER CORRECTIVE THERAPY AIDE TEACHER WITH [employer]. ORDERED EKG NOW, TROPONIN LEVEL IN AM AND TO REPORT 2.5 SECOND PAUSE TO CARDIOLOGY IN AM. OTHERWISE PATIENT IS IN SINUS RHYTHM AT THIS TIME.
[2025-01-13] VITALS (7 sets, daily range): BP systolic 126–142; BP diastolic 63–94; PULSE 67–114; RESP 16–22; TEMP 97.5–98.4; O2SAT 98–99
[2025-01-13 03:49] LABS: BASOPHILS # (AUTO) 0.01 K/uL (0.00-0.20); BASOPHILS % (AUTO) 0.1 % (0.0-5.0); HEMATOCRIT 37.2 % (42-54); IMMATURE GRANULOCYTE ABSOLUTE 0.11 K/uL (0-1); LYMPHOCYTES # (AUTO) 0.9 K/uL (1.0-4.8); LYMPHOCYTES % (AUTO) 7.7 % (21.0-51.0); MEAN CORPUSCULAR HEMOGLOBIN 32.2 pg (27.0-33.0); MEAN CORPUSCULAR HGB CONC 34.4 g/dL (32.0-36.0); MEAN CORPUSCULAR VOLUME 93.5 fL (79-99); MONOCYTES # (AUTO) 0.6 K/uL (0.1-1.0); NEUTROPHILS # (AUTO) 10.5 K/uL (1.8-7.7); NEUTROPHILS % (AUTO) 86.3 % (40.0-77.0); PLATELET COUNT (AUTO) 162 K/uL (130-400); RED BLOOD CELL COUNT(AUTO) 3.98 MIL/uL (4.50-6.20); RED CELL DISTRIBUTION WIDTH 13.5 % (11.0-15.5); WHITE BLOOD COUNT (AUTO) 12.1 K/uL (4.8-10.8)
[2025-01-13 04:01] LABS: CREATININE 1.6 mg/dL (0.5-1.3); POTASSIUM 4.3 mmol/L (3.5-5.1)
[2025-01-13 04:05] LABS: ALBUMIN 1.9 g/dL (3.5-5.0); MAGNESIUM 1.8 mg/dL (1.80-2.40); TOTAL PROTEIN, SERUM 5.9 g/dL (6.0-8.3)
--- NOTE | 2025-01-13 04:35 | NUR ---
PTT GREATER THAN 139, CURRENTLY ON HEPARIN AT 19 UNITS/KG/HR. WILL HOLD HEPARIN INFUSION FOR 60 MINUTES FROM 0435AM TO 0535AM AND WILL DECREASE INFUSION RATE BY 2 UNITS/KG/HR. NEW RATE OF 17 UNITS/KG/HR. NEXT PTT DUE AT 0930AM.
--- NOTE | 2025-01-13 06:11 | EKG ---
[facility] Test Date: 2025-01-13 Test Time: 00:13:56 Pat Name: ADAM MOE Department: [facility] Room: 202 1 Gender: M Varn[employer] Mixer: [id number] : [id number] Requested By: PASTOR BAUER Order Number: [id number] Reading MD: Ernesto Soto Measurements Intervals [place] Rate: 72 P: 8 AL: 184 QRS: 16 QRSD: 90 T: 109 QT: 419 QTc: 459 Interpretive Statements Sinus rhythm Nonspecific T abnormalities, lateral leads Compared to ECG 01/04/2025 22:14:01 Sinus tachycardia no longer present Myocardial infarct finding no longer present T-wave abnormality still present Electronically Signed On 01-13-2025 16:12:29 EXPRESS CLERK by Ernesto Soto Please click the below link to view image of tracing.
--- NOTE | 2025-01-13 06:17 | PN ---
[facility] CARDIOLOGY PROGRESS NOTE Date Patient Seen: Jan 13, 2025 Time of Visit: 06:15 Interval History: [Platelets improved. DRAKE with 1.1 cm aortic valve vegetation and KARINA thrombus.] EGD with werner esophagitis Physical Examination: GENERAL: [No acute distress.] HEAD: [Normal with no signs of head trauma.] EYES: [PERRLA, EOMI, conjunctiva and sclera normal.] ENT: [Hearing grossly intact, normal oropharynx.] NECK: [Supple without JVD. There is no tenderness, lymphadenopathy, or masses. No thyromegaly. Normal carotid upstrokes without bruits.] LUNGS: [Clear breath sounds bilaterally. There are right basilar rales one third of the way up the chest. No wheezes, or rhonchi.] HEART: [Normal rate and rhythm. Normal S1 and S2 without mumurs, gallop or rub.] VASC: [Peripheral pulses +2 bilaterally.] ABD: [Bowel sounds normal, soft, nontender, no masses, no organomegaly. No audible bruits.] : [Not examined] LYMPH: [No lymphadenopathy noted.] EXT: [No clubbing, cyanosis or edema.] SKIN: [No rashes or lesions noted.] NEURO: [Awake, alert, and oriented x3. No focal sensory or strength deficits noted.] Laboratory: [ ] Hematology Labs: Test 01/13/25 03:28 01/12/25 03:37 Range/Units White Blood Count 12.1 H 4.8-10.8 K/uL Red Blood Count 3.98 L 4.50-6.20 MIL/uL Hemoglobin 12.8 L 14.0-18.0 g/dL Hematocrit 37.2 L 42-54 % Mean Corpuscular Volume 93.5 79-99 fL Mean Corpuscular Hemoglobin 32.2 27.0-33.0 pg Mean Corpuscular Hemoglobin Concent 34.4 32.0-36.0 g/dL Red Cell Distribution Width 13.5 11.0-15.5 % Platelet Count 162 130-400 K/uL Mean Platelet Volume 10.9 H 7.5-10.5 fL Immature Granulocyte % (Auto) 0.9 0-1 % Neutrophils (%) (Auto) 86.3 H 40.0-77.0 % Lymphocytes (%) (Auto) 7.7 L 21.0-51.0 % Monocytes (%) (Auto) 5.0 3.0-13.0 % Eosinophils (%) (Auto) 0.0 0.0-8.0 % Basophils (%) (Auto) 0.1 0.0-5.0 % Neutrophils # (Auto) 10.5 H 1.8-7.7 K/uL Lymphocytes # (Auto) 0.9 L 1.0-4.8 K/uL Monocytes # (Auto) 0.6 0.1-1.0 K/uL Eosinophils # (Auto) 0.00 0.00-0.70 K/uL Basophils # (Auto) 0.01 0.00-0.20 K/uL Absolute Immature Granulocyte (auto 0.11 0-1 K/uL Nucleated Red Blood Cells 0.0 0.0-0.19 % White Cell Morphology Comment See comments Chemistry Labs: Test 01/13/25 04:12 01/13/25 03:28 01/12/25 16:05 01/12/25 03:37 Range/Units Whole Blood Glucose 127 H 70-110 MG/DL Sodium Level 141 136-145 mmol/L Potassium Level 4.3 3.5-5.1 mmol/L Chloride Level 111 101-111 mmol/L Carbon Dioxide Level 19 L 21-32 mmol/L Blood Urea Nitrogen 43 H 7-18 mg/dL Creatinine 1.6 H 0.5-1.3 mg/dL Glomerular Filtration Rate Calc 54 >90 mL/min Random Glucose 160 H 70-105 mg/dL Total Calcium 7.0 L 8.5-10.1 mg/dL Magnesium Level 1.80 1.80-2.40 mg/dL Total Bilirubin 1.0 0.2-1.0 mg/dL Aspartate Amino Transf (AST/SGOT) 15 10-37 U/L Alanine Aminotransferase (ALT/SGPT) 21 12-78 U/L Alkaline Phosphatase 91 50-136 U/L Troponin I High Sensitivity 8 4-75 ng/L Total Protein 5.9 L 6.0-8.3 g/dL Albumin 1.9 L 3.5-5.0 g/dL Bedside Glucose Comment Notified Nurse Whole Blood Ketones Quantitative 0.1 0.0-0.6 mmol/L Ammonia 22 11-32 umol/L Coagulation Labs: Test 01/13/25 03:28 2/12/25 14:48 Range/Units Activated Partial Thromboplast Time > 139.0 #*H 26.3-35.5 SEC Prothrombin Time 11.9 H 9.6-11.6 SEC Prothromb Time International Ratio 1.07 0.85-1.15 Diagnostics / Radiology: [Copy/Paste Echos/Imaging Report here] Impression and Plan: [ 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 Patient is high risk given advanced liver disease and thrombocytopenia -DRAKE on 01/11/2025 with LVEF of 60-65%, Left atrial appendage clot present, Aortic valve is trileaflet and open well. Non coronary cusp leaflet has vegetation that measures 1.81cm x 1.17cm. ID abx for MSSA for 6 weeks and repeat DRAKE at that time -Started on Heparin gtt KARINA thrombus -on heparin gtt, monitor platelets Thrombocytopenia with platelet count falling to 21,000 on 01/05/2025, now improving to [id number] -Dr. 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
--- NOTE | 2025-01-13 06:31 | NUR ---
DR Jens FLORES ROUNDED, NOTIFIED OF 2.5 SEC PAUSE. ORDERED CPAP AT HS. Addendum: 01/13/25 at 0802 by DREAD TAMAYO RN RN also reported ekg results and negative troponin level.
--- NOTE | 2025-01-13 08:19 | PN ---
GASTROENTEROLOGY PROGRESS NOTE Date of Visit: Jan 13, 2025 Time of Visit: 08:19 Events / Notes: No acute events overnight. Patient had EGD revealing LA Grade B esophagitis. Denies fever, chills, abdominal pain, N/V, hematemesis, bloating, constipation, diarrhea, melena or hematochezia. Review of Systems: CONSTITUTIONAL: No malaise or change in sensation of wellbeing. ENMT: No rhinorrhea, otorrhea, sinus pain, ear ache. CARDIOVASCULAR: No angina, palpitations, orthopnea or paroxysmal dyspnea. RESPIRATORY: No SOB. GASTROINTESTINAL: No abdominal pain, nausea, vomiting, diarrhea, hematemesis, melena or change in the patient's habitual bowel movements consistency/number. GENITOURINARY: No dysuria, hematuria or change in bladder continence. MUSCULOSKELETAL: No new muscle pain or decrease in muscular strength. No new joint swelling, redness or tenderness. SKIN: No new rash. Physical Exam: GEN: Awake, alert, oriented in person, time and place, and in no acute distress. HEENT: No sinus tenderness. Tympanic membranes were not examined. No rhinorrhea. Oral pharyngeal mucosa is pink, moist and within normal limits. Neck is supple with no cervical lymphadenopathy, thyromegaly or JVD. CHEST: Inspection, palpation and percussion of the chest were unremarkable. Lung auscultation revealed normal breath sounds bilaterally. CARDIAC: PMI is within normal limits. Heart sounds are regular. Normal S1, S2. No gallop or murmur. ABD: Soft, non-tender and not distended. No peritoneal signs on palpation. No organomegaly. Normal bowel sounds. EXT: No cyanosis or clubbing. No edema. SKIN: Intact. No rashes. JOINTS: No evidence of synovitis or acute arthritis. NEURO: Alert and oriented to name, place and person. Cranial nerve examination is unremarkable. No focal motor deficits. Normal speech. Gait is normal. Strength is normal. Vital Signs (last 8hr) Date Time Temp Pulse Resp B/P (MAP) Pulse Ox O2 Delivery O2 Flow Rate FiO2 01/13/25 03:00 98.4 67 18 131/89 98 Room Air Laboratory: [ ] Laboratory: Test 01/13/25 04:12 01/13/25 03:28 01/12/25 16:05 01/12/25 10:49 Range/Units Whole Blood Glucose 127 H 70-110 MG/DL White Blood Count 12.1 H 4.8-10.8 K/uL Red Blood Count 3.98 L 4.50-6.20 MIL/uL Hemoglobin 12.8 L 14.0-18.0 g/dL Hematocrit 37.2 L 42-54 % Mean Corpuscular Volume 93.5 79-99 fL Mean Corpuscular Hemoglobin 32.2 27.0-33.0 pg Mean Corpuscular Hemoglobin Concent 34.4 32.0-36.0 g/dL Red Cell Distribution Width 13.5 11.0-15.5 % Platelet Count 162 130-400 K/uL Mean Platelet Volume 10.9 H 7.5-10.5 fL Immature Granulocyte % (Auto) 0.9 0-1 % Neutrophils (%) (Auto) 86.3 H 40.0-77.0 % Lymphocytes (%) (Auto) 7.7 L 21.0-51.0 % Monocytes (%) (Auto) 5.0 3.0-13.0 % Eosinophils (%) (Auto) 0.0 0.0-8.0 % Basophils (%) (Auto) 0.1 0.0-5.0 % Neutrophils # (Auto) 10.5 H 1.8-7.7 K/uL Lymphocytes # (Auto) 0.9 L 1.0-4.8 K/uL Monocytes # (Auto) 0.6 0.1-1.0 K/uL Eosinophils # (Auto) 0.00 0.00-0.70 K/uL Basophils # (Auto) 0.01 0.00-0.20 K/uL Absolute Immature Granulocyte (auto 0.11 0-1 K/uL Nucleated Red Blood Cells 0.0 0.0-0.19 % Activated Partial Thromboplast Time > 139.0 #*H 26.3-35.5 SEC Sodium Level 141 136-145 mmol/L Potassium Level 4.3 3.5-5.1 mmol/L Chloride Level 111 101-111 mmol/L Carbon Dioxide Level 19 L 21-32 mmol/L Blood Urea Nitrogen 43 H 7-18 mg/dL Creatinine 1.6 H 0.5-1.3 mg/dL Glomerular Filtration Rate Calc 54 >90 mL/min Random Glucose 160 H 70-105 mg/dL Total Calcium 7.0 L 8.5-10.1 mg/dL Magnesium Level 1.80 1.80-2.40 mg/dL Total Bilirubin 1.0 0.2-1.0 mg/dL Aspartate Amino Transf (AST/SGOT) 15 10-37 U/L Alanine Aminotransferase (ALT/SGPT) 21 12-78 U/L Alkaline Phosphatase 91 50-136 U/L Troponin I High Sensitivity 8 4-75 ng/L Total Protein 5.9 L 6.0-8.3 g/dL Albumin 1.9 L 3.5-5.0 g/dL Bedside Glucose Comment Notified Nurse Blood Gas Specimen Type Venous Arterial Blood Oxygen Saturation 89.0 L 94.0-98.0 % Venous Blood pH 7.447 H 7.320-7.430 Venous Blood pCO2 at Patient Temp 25 L 38-54 Venous Blood pO2 at Patient Temp 51.9 H 23.0-48.0 mmHg Venous Blood HCO3 17.0 L 22.0-29.0 Venous Blood Base Excess -5.1 L -2.0-3.0 Blood Gas Temperature 37.0 35.5-37.0 CELSIUS Blood Gas Vent Mode VBG ROOM AIR FiO2 21.0 % Blood Gas Specimen Comment [id number] Test 01/12/25 03:37 01/11/25 14:48 Range/Units White Cell Morphology Comment See comments Whole Blood Ketones Quantitative 0.1 0.0-0.6 mmol/L Ammonia 22 11-32 umol/L Prothrombin Time 11.9 H 9.6-11.6 SEC Prothromb Time International Ratio 1.07 0.85-1.15 Current Medications Medications (Trade) Dose Ordered Sig/Asya Route PRN Reason Start Time Stop Time Status Last Admin Dose Admin Acetaminophen (TYLenol 325MG TAB) 650 mg Q6H PRN PO TEMPERATURE GREATER THAN 101.5 01/05/25 02:30 02/04/25 02:29 01/08/25 04:21 650 MG Aspirin (Aspirin 81mg Chew Tab) 81 mg DAILY PO 01/05/25 09:00 01/05/25 09:53 DC Benzocaine (Cepacol Sore Throat Lozenge) 1 each Q4H PRN MM SORE THROAT 01/05/25 02:30 02/04/25 02:29 Calcium Gluconate 1 gm/Sodium Chloride 100 ml @ 0 mls/hr AD PRN IV Serum Calcium Correction 01/08/25 02:30 02/07/25 02:29 01/08/25 23:32 90 MLS/HR Cefazolin Sodium (Ancef) 2 gm Q12H IVPB 01/07/25 13:30 01/24/25 21:00 01/13/25 02:26 2 GM Chlordiazepoxide HCl (LIBrium 25 MG CAP) 25 mg Q8H PO 01/05/25 02:30 01/11/25 11:39 DC 01/10/25 22:23 25 MG Chlordiazepoxide HCl (LIBrium 25 MG CAP) 25 mg Q8H PRN PO WITHDRAWAL 01/11/25 12:00 01/12/25 02:29 DC Dexamethasone Sodium Phosphate 20 mg/Sodium Chloride 52 ml @ 100 mls/hr DAILY IV 01/09/25 09:00 02/08/25 08:59 01/12/25 11:03 100 MLS/HR Dexamethasone Sodium Phosphate 40 mg/Sodium Chloride 50 ml @ 100 mls/hr DAILY IV 01/06/25 14:00 01/08/25 12:16 DC 01/08/25 09:34 100 MLS/HR Dextrose (D50w) 50 ml AD PRN IV HYPOGLYCEMIA PROTOCOL 01/05/25 10:00 02/04/25 09:59 Doxycycline Hyclate 250 ml @ 125 mls/hr Q12H IV 01/05/25 10:00 01/06/25 21:05 DC 01/06/25 09:30 125 MLS/HR Doxycycline Hyclate 250 ml @ 125 mls/hr Q12H IV 01/06/25 21:30 01/16/25 21:29 01/12/25 21:48 125 MLS/HR Fluconazole (DiFLUCan 100 mg TAB) 200 mg DAILY PO 01/12/25 09:00 02/11/25 08:59 01/12/25 10:55 200 MG Folic Acid (FOLic ACID 1 MG TABLET) 1 mg DAILY PO 01/07/25 10:30 02/06/25 10:29 01/12/25 10:52 1 MG Furosemide (LASix 20MG VIAL) 20 mg Q12H IV 01/07/25 16:00 01/11/25 00:56 DC 01/10/25 19:40 20 MG Glucagon (Glucagon 1mg Kit) 1 mg AD PRN IM HYPOGLYCEMIA PROTOCOL 01/05/25 10:00 02/04/25 09:59 Heparin Sodium/ Dextrose 250 ml @ 0 mls/hr PROTOCOL IV 01/11/25 14:30 02/10/25 14:29 01/12/25 22:06 20.7 MLS/HR Hydralazine HCl (APRESOLine 20MG INJ) 5 mg Q6H PRN IV For:SBP above 160;DBP above 90 01/05/25 14:30 02/04/25 14:29 01/10/25 22:24 5 MG Hydralazine HCl (APRESOLine 20MG INJ) 10 mg Q6H PRN IV For:SBP above 160;DBP above 90 01/05/25 02:30 01/05/25 09:53 DC Insulin Glargine (LANtus 100 UNITS/ML 10 ML VIAL) 15 units Q12H SQ 01/07/25 21:30 01/09/25 23:18 DC 01/09/25 13:10 15 UNITS Insulin Glargine (LANtus 100 UNITS/ML 10 ML VIAL) 20 units HS SQ 01/06/25 21:00 01/06/25 21:05 DC Insulin Glargine (LANtus 100 UNITS/ML 10 ML VIAL) 20 units HS SQ 01/06/25 21:30 01/07/25 10:24 DC 01/06/25 21:33 20 UNITS Insulin Glargine (LANtus 100 UNITS/ML 10 ML VIAL) 20 units Q12H SQ 01/10/25 09:30 01/10/25 12:58 DC Insulin Glargine (LANtus 100 UNITS/ML 10 ML VIAL) 25 units Q12H SQ 01/10/25 21:30 01/11/25 00:50 DC 01/10/25 22:19 25 UNITS Insulin Glargine (LANtus 100 UNITS/ML 10 ML VIAL) 30 units DAILY SQ 01/12/25 09:00 02/10/25 09:29 01/12/25 11:25 30 UNITS Insulin Glargine (LANtus 100 UNITS/ML 10 ML VIAL) 30 units Q12H SQ 01/11/25 09:30 01/11/25 20:13 DC 01/11/25 10:50 30 UNITS Insulin Human Regular (humuLIN R 100 UNIT/ML 3ML) 8 unit TIDAC SQ 01/11/25 07:30 02/10/25 07:29 01/11/25 16:22 8 UNIT Insulin Human Regular (humuLIN R 100 UNIT/ML 3ML) INSULIN SLIDING SCAL... ACHS SQ 01/05/25 07:30 01/05/25 09:57 DC 01/05/25 07:59 16 UNIT Insulin Human Regular (humuLIN R 100 UNIT/ML 3ML) INSULIN SLIDING SCAL... ACHS SQ 01/05/25 11:30 01/06/25 16:43 DC 01/06/25 11:50 8 UNIT Insulin Human Regular (humuLIN R 100 UNIT/ML 3ML) INSULIN SLIDING SCAL... ACHS SQ 01/06/25 17:00 01/07/25 13:32 DC 01/06/25 17:17 16 UNIT Insulin Human Regular (humuLIN R 100 UNIT/ML 3ML) INSULIN SLIDING SCAL... Q4H SQ 01/11/25 02:00 01/11/25 23:59 DC 01/11/25 20:49 6 UNIT Insulin Human Regular (humuLIN R 100 UNIT/ML 3ML) INSULIN SLIDING SCAL... Q4H SQ 01/11/25 23:59 02/10/25 23:58 01/13/25 01:21 6 UNIT Insulin Human Regular (humuLIN R 100 UNIT/ML 3ML) INSULIN SLIDING SCAL... Q6H6 SQ 01/10/25 18:00 01/11/25 00:50 DC 01/11/25 00:45 10 UNIT Insulin Human Regular 100 unit/ Sodium Chloride 100 ml @ 0 mls/hr AD PRN IV HYPERGLYCEMIA PROTOCOL 01/06/25 19:30 01/10/25 06:00 DC 01/09/25 19:10 16 MLS/HR Lactated Ringer's 1,000 ml @ 100 mls/hr Q10H IV 01/05/25 02:30 01/05/25 09:51 DC 01/05/25 02:30 100 MLS/HR Lactated Ringer's 1,000 ml @ 125 mls/hr Q8H IV 01/10/25 01:30 01/10/25 19:40 DC 01/10/25 13:07 125 MLS/HR Lactobacillus Rhamnosus ([facility] [employer]) 1 each DAILY PO 01/12/25 09:00 02/11/25 08:59 01/12/25 10:56 1 EACH Lorazepam (AtiVAN) 1 mg Q4H PRN IVP ALCOHOL WITHDRAWAL PROTOCOL 01/05/25 02:30 01/12/25 02:29 DC Magnesium Sulfate 50 ml @ 0 mls/hr PROTOCOL PRN IV h 01/05/25 02:30 02/04/25 02:29 01/13/25 04:13 25 MLS/HR Morphine Sulfate (morPHINE 2MG SYG) 2 mg Q4H PRN IVP SEVERE PAIN (7-10) 01/05/25 02:30 01/12/25 02:29 DC Multivitamins Therapeutic (Multivitamin Tablet) 1 tab DAILY PO 01/07/25 10:30 02/06/25 10:29 01/12/25 10:56 1 TAB Nicotine (Nicoderm) 21 mg DAILY TD 01/05/25 09:00 02/04/25 08:59 01/12/25 10:57 21 MG Nitroglycerin (Nitrostat) 0.4 mg AD PRN SL CHEST PAIN 01/05/25 02:30 02/04/25 02:29 Ondansetron HCl (zoFRAN 4MG INJ) 4 mg Q6H PRN IV NAUSEA/VOMITING 01/05/25 02:30 02/04/25 02:29 Pantoprazole Sodium (PROTonix 40MG TAB) 40 mg DAILY PO 01/05/25 09:00 02/04/25 08:59 01/12/25 10:52 40 MG Pharmacy Profile Note (Pharmacy Communication) 1 each PROTOCOL PRN MISC ETOH Withdrawal Score changes 01/05/25 02:30 01/12/25 02:29 DC Piperacillin Sod/ Tazobactam Sod (Zosyn 3.375gm+NS 50ml) 3.375 gm Q12H IV 01/05/25 02:30 01/07/25 13:24 DC 01/07/25 02:45 3.375 GM Potassium Phosphate 250 ml @ 42 mls/hr PROTOCOL PRN IV PROTOCOL 01/05/25 10:00 02/04/25 09:59 Potassium Chloride 100 ml @ 100 mls/hr AD PRN IV POTASSIUM PROTOCOL 01/05/25 02:30 2/8/25 10:12 DC Potassium Chloride 100 ml @ 100 mls/hr AD PRN IV POTASSIUM PROTOCOL 01/07/25 10:30 02/06/25 10:29 01/09/25 06:26 100 MLS/HR Potassium Chloride (K-Dur 10meq Sr Tab) 10 meq AD PRN PO POTASSIUM PROTOCOL 01/06/25 09:30 02/04/25 02:29 01/08/25 23:35 10 MEQ Potassium Chloride (K-Dur/Klor-Con 20meq) 10 meq AD PRN PO POTASSIUM PROTOCOL 01/05/25 02:30 01/06/25 09:12 DC 01/05/25 22:15 10 MEQ Potassium Chloride (K-Dur/Klor-Con 20meq) 10 meq AD PRN PO POTASSIUM PROTOCOL 01/07/25 10:30 01/07/25 10:12 DC Potassium Chloride (KCl 10% Elixir 20meq/15ml) 10 meq AD PRN PO POTASSIUM PROTOCOL 01/05/25 02:30 01/07/25 10:12 DC 01/06/25 17:16 10 MEQ Potassium Chloride (KCl 10% Elixir 20meq/15ml) 10 meq AD PRN PO POTASSIUM PROTOCOL 01/07/25 10:30 02/06/25 10:29 01/08/25 15:28 10 MEQ Sodium Bicarbonate (Sodium Bicarbonate) 1,300 mg BID PO 01/11/25 09:00 02/10/25 08:59 01/12/25 21:48 1,300 MG Sodium Chloride 1,000 ml @ 50 mls/hr Q20H IV 01/05/25 10:00 01/10/25 01:33 DC 01/09/25 05:56 50 MLS/HR Sodium Chloride 1,000 ml @ 75 mls/hr [id number] IV 01/11/25 01:00 01/11/25 13:45 DC 01/11/25 01:00 75 MLS/HR Triamcinolone Acetonide (Kenalog/ Aristocort) 1 APPLY TP BID BID TP 01/07/25 11:00 02/06/25 10:59 01/12/25 22:07 1 APPL Vancomycin HCl (Vancomycin Protocol) 1 each AD IV 01/07/25 12:30 01/07/25 12:40 DC Diagnostics / Radiology: [COPY/PASTE HERE IF NO REPORTS PLEASE DELETE SECTION] Assessment: GERD esophagitis Decompensated cirrhosis Thrombocytopenia Abnormal troponin Alcohol abuse Plan: Follow cardio recommendations Will obtain liver serologies to r/o other liver pathology Please contact our service if the patient has significant bleeding such as hematemesis and we can proceed sooner with the EGD Thanks you for allowing us to participate in the care of this patient! HILDA MUIR COMPRESSOR OPERATOR Jan 13, 2025 08:19
--- NOTE | 2025-01-13 09:11 | PN ---
SUBJECTIVE: A 44-year-old male with history of diabetes mellitus and hypertension, initially presented, found to have endocarditis. The patient remains on the IV antibiotics. The patient has had acute on chronic renal failure in the hospital. Creatinine has been elevated and the patient is being seen as a followup visit for all of the above. REVIEW OF SYSTEMS: GENERAL: He is feeling weak and tired. HEENT: No change in vision. No change in hearing. No nasal discharge. No sore throat. CARDIOVASCULAR: No current chest pains or palpitations. PULMONARY: He denies any shortness of breath. GASTROINTESTINAL: The patient is tolerating a diet. MUSCULOSKELETAL: Complains of weakness. PHYSICAL EXAMINATION: VITAL SIGNS: Blood pressure 131/89, pulse 60s. He is afebrile. GENERAL: He is a chronically ill male, much older than appearing. HEENT: Head is atraumatic. Pupils equal, roving to light. Oropharynx is without exudate. Nares clear. NECK: There is no JVP, no thyromegaly, no mass. CARDIOVASCULAR: Regular. There is no S3, S4 gallop. LUNGS: Coarse with equal thoracic movement. ABDOMEN: Soft, nondistended, nontender. EXTREMITIES: Reveal no clubbing, no cyanosis. NEUROLOGIC: He is awake. He is alert. He is oriented. LABORATORY DATA: BUN 43, creatinine 1.6. Hemoglobin 12, hematocrit 37. IMPRESSION: * Endocarditis. * Acute on chronic renal failure. * Diabetes mellitus. * Hypertension. PLAN: The patient continues with the IV antibiotics. The patient's creatinine of 1.6 mg/dL is essentially the patient's baseline. We will continue to follow closely. The patient also to be seen by Cardiovascular Surgery. We will continue to follow closely and make further recommendations accordingly. TID: [id number] RECEIPT: [id number]
--- NOTE | 2025-01-13 11:01 | PN ---
[facility] PROGRESS NOTE Date of Service: Jan 13, 2025 Time of Service: 10:58 SUBJECTIVE: [ ] The patient has been seen and examined at bedside, no acute events overnight, the patient is comfortable, cooperating well, alert oriented x3, he is on a CIWA protocol, not combative. BP 123/70, rest of vital signs unremarkable. Patient received transfusion of 1 unit of platelet, platelet count improved to 27, per supervisor shaving and splitting, likely due to splenomegaly. Echocardiogram reviewed, hypodense echogenic mobile vegetation to right coronary cusp leaflet, per cardiology once platelet count is greater than 50 1000 we will proceed with a a DRAKE. The pa tient also with a elevated blood sugar, continue insulin sliding scale, add insulin glargine 20 units subcutaneously at bedtime. Continue the patient on broad-spectrum IV antibiotics, continue to trend WBC in a.m.. 01/07 patient is seen and examined at bedside, case discussed with the RN, patient upgraded last night to the ICU to start insulin drip as blood glucose per sistently greater than 400. Patient started on dexamethasone IV by supervisor shaving and splitting do to ITP. Platelet count slightly better today at 41. Upon my initial encounter with the patient admitted that he drinks more than 18 beers per day. He was started on CIWA protocol, however has remained hemodynamically stable, comfortable in bed, no signs of withdrawal, cooperating fine. Not agitated, not combative. Toxicology screen positive for cocaine. Sodium level slowly improvi ng, today 132. Serology positive for influenza type A. The patient with significant proteinuria consistent with diabetic nephropathy, creatinine slowly trending down, no need for renal replacement therapy per test driver. Patient with blood culture positive for Staphylococcus aureus, with urine culture positive for Klebsiella pneumoniae. We will add vancomycin IV pharmacy to dose. We will request Infectious Disease consultation. Echocardiogram reviewed, hypodense echogenic mobile vegetation to right coronary cusp leaflet, per cardiology once platelet count is greater than 50 1000 we will proceed with a a DRAKE. CT abdomen with gallstones in the gallbladder. HIDA scan pending 01/08 patient seen at bedside, no acute events overnight. He continues on insulin drip with an anion gap of 14, we will continue until the gap is closed. P latelets 54, we will follow up with Cardiology on optimal timing for DRAKE. Continue with IV antibiotics, further care per critical Care. 2/10 patient seen at bedside, no acute events overnight. Anion gap is still open at 14, we will continue IV insulin. Platelets improved from 54 up to 71, CO2 decreased from 17 down to 15. Cardiology planning on DRAKE today, we will follow up postprocedure. Repeat blood cultures are positive for Gram-positive organisms which further supports underlying endocarditis. Continue with IV antibiotics, appreciate Infectious Disease recommendations. He has been afebrile, hemodynamically stable saturating well on room air. WBC increased from 12.8 up to 13.6, BUN decreased from 93 down to 90, creatinine decreased from 2.5 down to 2.3, remainder of his labs are relatively unremarkable. 01/10 Pt seen at bedside, no acute events overnight. Pt with anion gap of 14, CO2 still low at 16. Repeat lactic acid was ordered, elevated at 4.8, will bolus patient and continue with IV fluids. DRAKE was rescheduled to today, will follow up with results.WBC improved from 13.6 down to 11.7, Hgb decreased from 15.1 down to 12.4, platelets decreased from 71 down to 66, this substantial decrease in all cell lines suggests hemodilution, creatinine decreased from 2.2 down to 1.4, also likely falsely depressed. 01/11 Pt seen at bedside, no acute events overnight. Pending EGD to assess for esophageal varices and DRAKE today, will follow up post procedure. Yesterday repeat lactic acid was elevated at 4.8, the patient was bolused and it improved down to 1.3. He has been afebrile, hemodynamically stable, saturating well on room air. WBC increased from 11.7 up to 12.5, platelets improved from 66 up to 113, creatinine increased from 1.6 up to 1.8, CO2 improved from 17 up to 22 after patient was started on bicarb. Third set of blood cultures growing gram positive organisms 01/12 patient is seen and examined at bedside, case discussed with the RN, no acute events overnight, remains on broad-spectrum IV antibiotics, alert oriented x3, following commands. Patient underwent DRAKE 01/11, tolerated well, LVEF 60- 65%, no left ventricle thrombus noted. Right ventricle is severely dilated. Left atrial appendage clot present. No mass or thrombus in the left atrium. No mass or thrombus in the right atrium. Aortic valve is trileaflet, opens well, non coronary cusp leaflet has vegetation that measures 1.8 x 1.1 cm. No mitral valve vegetation, no tricuspid valve vegetation, no pulmonic valve vegetation. Finding discussed with the patient, all questions answered. 01/13 patient is seen and examined at bedside, case discussed with the RN, no acute events overnight, during my visit the patient comfortably in bed, hemodynamically stable, alert oriented x3, getting IV antibiotics, denies chest pain, no shortness a breath, no nausea, no vomiting. REVIEW OF SYSTEMS 12 point review of systems negative unless noted in HPI PHYSICAL EXAM GENERAL APPEARANCE: The patient is awake, alert, and oriented, in no acute cardiopulmonary distress. NEUROLOGICAL: Cranial nerves II-XII grossly intact. Motor is 5/5 in bilateral upper and lower extremities proximal to distal. No sensory deficits. HEENT: Face is symmetric. Pupils are equal and reactive. Extraocular movements are intact. NECK: Supple. No JVD. No thyromegaly. No submental, submandibular, pre- /postauricular, occipital or supraclavicular lymphadenopathy. CHEST: Normal chest expansion. No Telemetry. LUNGS: Absence of any rales, rhonchi or any wheezing. CARDIOVASCULAR: Regular. S1 and S2 normal. No appreciable rubs, murmurs or gallops. ABDOMEN: Soft, nontender, and nondistended. There is no rebound, voluntary guarding, or rigidity. : Deferred. No Ortega. EXTREMITIES: Non-edematous and not cyanotic. No clubbing. Good capillary refill. SKIN: No skin breakdown. Vital Signs (last 8hr) Date Time Temp Pulse Resp B/P (MAP) Pulse Ox O2 Delivery O2 Flow Rate FiO2 01/13/25 08:00 97.9 67 16 126/63 99 Room Air 01/13/25 03:00 98.4 67 18 131/89 98 Room Air LABS: Laboratory: Test 01/13/25 09:29 01/13/25 04:12 01/13/25 03:28 01/12/25 16:05 Range/Units Activated Partial Thromboplast Time 100.4 #*H 26.3-35.5 SEC Whole Blood Glucose 127 H 70-110 MG/DL White Blood Count 12.1 H 4.8-10.8 K/uL Red Blood Count 3.98 L 4.50-6.20 MIL/uL Hemoglobin 12.8 L 14.0-18.0 g/dL Hematocrit 37.2 L 42-54 % Mean Corpuscular Volume 93.5 79-99 fL Mean Corpuscular Hemoglobin 32.2 27.0-33.0 pg Mean Corpuscular Hemoglobin Concent 34.4 32.0-36.0 g/dL Red Cell Distribution Width 13.5 11.0-15.5 % Platelet Count 162 130-400 K/uL Mean Platelet Volume 10.9 H 7.5-10.5 fL Immature Granulocyte % (Auto) 0.9 0-1 % Neutrophils (%) (Auto) 86.3 H 40.0-77.0 % Lymphocytes (%) (Auto) 7.7 L 21.0-51.0 % Monocytes (%) (Auto) 5.0 3.0-13.0 % Eosinophils (%) (Auto) 0.0 0.0-8.0 % Basophils (%) (Auto) 0.1 0.0-5.0 % Neutrophils # (Auto) 10.5 H 1.8-7.7 K/uL Lymphocytes # (Auto) 0.9 L 1.0-4.8 K/uL Monocytes # (Auto) 0.6 0.1-1.0 K/uL Eosinophils # (Auto) 0.00 0.00-0.70 K/uL Basophils # (Auto) 0.01 0.00-0.20 K/uL Absolute Immature Granulocyte (auto 0.11 0-1 K/uL Nucleated Red Blood Cells 0.0 0.0-0.19 % Sodium Level 141 136-145 mmol/L Potassium Level 4.3 3.5-5.1 mmol/L Chloride Level 111 101-111 mmol/L Carbon Dioxide Level 19 L 21-32 mmol/L Blood Urea Nitrogen 43 H 7-18 mg/dL Creatinine 1.6 H 0.5-1.3 mg/dL Glomerular Filtration Rate Calc 54 >90 mL/min Random Glucose 160 H 70-105 mg/dL Total Calcium 7.0 L 8.5-10.1 mg/dL Magnesium Level 1.80 1.80-2.40 mg/dL Total Bilirubin 1.0 0.2-1.0 mg/dL Aspartate Amino Transf (AST/SGOT) 15 10-37 U/L Alanine Aminotransferase (ALT/SGPT) 21 12-78 U/L Alkaline Phosphatase 91 50-136 U/L Troponin I High Sensitivity 8 4-75 ng/L Total Protein 5.9 L 6.0-8.3 g/dL Albumin 1.9 L 3.5-5.0 g/dL Bedside Glucose Comment Notified Nurse Test 01/12/25 10:49 01/12/25 03:37 01/11/25 14:48 Range/Units Blood Gas Specimen Type Venous Arterial Blood Oxygen Saturation 89.0 L 94.0-98.0 % Venous Blood pH 7.447 H 7.320-7.430 Venous Blood pCO2 at Patient Temp 25 L 38-54 Venous Blood pO2 at Patient Temp 51.9 H 23.0-48.0 mmHg Venous Blood HCO3 17.0 L 22.0-29.0 Venous Blood Base Excess -5.1 L -2.0-3.0 Blood Gas Temperature 37.0 35.5-37.0 CELSIUS Blood Gas Vent Mode VBG ROOM AIR FiO2 21.0 % Blood Gas Specimen Comment [id number] White Cell Morphology Comment See comments Whole Blood Ketones Quantitative 0.1 0.0-0.6 mmol/L Ammonia 22 11-32 umol/L Prothrombin Time 11.9 H 9.6-11.6 SEC Prothromb Time International Ratio 1.07 0.85-1.15 Current Medications Medications (Trade) Dose Ordered Sig/Asya Route PRN Reason Start Time Stop Time Status Last Admin Dose Admin Acetaminophen (TYLenol 325MG TAB) 650 mg Q6H PRN PO TEMPERATURE GREATER THAN 101.5 01/05/25 02:30 02/04/25 02:29 01/08/25 04:21 650 MG Aspirin (Aspirin 81mg Chew Tab) 81 mg DAILY PO 01/05/25 09:00 01/05/25 09:53 DC Benzocaine (Cepacol Sore Throat Lozenge) 1 each Q4H PRN MM SORE THROAT 01/05/25 02:30 02/04/25 02:29 Calcium Gluconate 1 gm/Sodium Chloride 100 ml @ 0 mls/hr AD PRN IV Serum Calcium Correction 01/08/25 02:30 02/07/25 02:29 01/08/25 23:32 90 MLS/HR Cefazolin Sodium (Ancef) 2 gm Q12H IVPB 01/07/25 13:30 01/24/25 21:00 01/13/25 02:26 2 GM Chlordiazepoxide HCl (LIBrium 25 MG CAP) 25 mg Q8H PO 01/05/25 02:30 01/11/25 11:39 DC 01/10/25 22:23 25 MG Chlordiazepoxide HCl (LIBrium 25 MG CAP) 25 mg Q8H PRN PO WITHDRAWAL 01/11/25 12:00 01/12/25 02:29 DC Dexamethasone Sodium Phosphate 20 mg/Sodium Chloride 52 ml @ 100 mls/hr DAILY IV 01/09/25 09:00 02/08/25 08:59 01/12/25 11:03 100 MLS/HR Dexamethasone Sodium Phosphate 40 mg/Sodium Chloride 50 ml @ 100 mls/hr DAILY IV 01/06/25 14:00 01/08/25 12:16 DC 01/08/25 09:34 100 MLS/HR Dextrose (D50w) 50 ml AD PRN IV HYPOGLYCEMIA PROTOCOL 01/05/25 10:00 02/04/25 09:59 Doxycycline Hyclate 250 ml @ 125 mls/hr Q12H IV 01/05/25 10:00 01/06/25 21:05 DC 01/06/25 09:30 125 MLS/HR Doxycycline Hyclate 250 ml @ 125 mls/hr Q12H IV 01/06/25 21:30 01/16/25 21:29 01/12/25 21:48 125 MLS/HR Fluconazole (DiFLUCan 100 mg TAB) 200 mg DAILY PO 01/12/25 09:00 02/11/25 08:59 01/12/25 10:55 200 MG Folic Acid (FOLic ACID 1 MG TABLET) 1 mg DAILY PO 01/07/25 10:30 02/06/25 10:29 01/12/25 10:52 1 MG Furosemide (LASix 20MG VIAL) 20 mg Q12H IV 01/07/25 16:00 01/11/25 00:56 DC 01/10/25 19:40 20 MG Glucagon (Glucagon 1mg Kit) 1 mg AD PRN IM HYPOGLYCEMIA PROTOCOL 01/05/25 10:00 02/04/25 09:59 Heparin Sodium/ Dextrose 250 ml @ 0 mls/hr PROTOCOL IV 01/11/25 14:30 02/10/25 14:29 01/12/25 22:06 20.7 MLS/HR Hydralazine HCl (APRESOLine 20MG INJ) 5 mg Q6H PRN IV For:SBP above 160;DBP above 90 01/05/25 14:30 02/04/25 14:29 01/10/25 22:24 5 MG Hydralazine HCl (APRESOLine 20MG INJ) 10 mg Q6H PRN IV For:SBP above 160;DBP above 90 01/05/25 02:30 01/05/25 09:53 DC Insulin Glargine (LANtus 100 UNITS/ML 10 ML VIAL) 15 units Q12H SQ 01/07/25 21:30 01/09/25 23:18 DC 01/09/25 13:10 15 UNITS Insulin Glargine (LANtus 100 UNITS/ML 10 ML VIAL) 20 units HS SQ 01/06/25 21:00 01/06/25 21:05 DC Insulin Glargine (LANtus 100 UNITS/ML 10 ML VIAL) 20 units HS SQ 01/06/25 21:30 01/07/25 10:24 DC 01/06/25 21:33 20 UNITS Insulin Glargine (LANtus 100 UNITS/ML 10 ML VIAL) 20 units Q12H SQ 01/10/25 09:30 01/10/25 12:58 DC Insulin Glargine (LANtus 100 UNITS/ML 10 ML VIAL) 25 units Q12H SQ 01/10/25 21:30 01/11/25 00:50 DC 01/10/25 22:19 25 UNITS Insulin Glargine (LANtus 100 UNITS/ML 10 ML VIAL) 30 units DAILY SQ 01/12/25 09:00 02/10/25 09:29 01/12/25 11:25 30 UNITS Insulin Glargine (LANtus 100 UNITS/ML 10 ML VIAL) 30 units Q12H SQ 01/11/25 09:30 01/11/25 20:13 DC 01/11/25 10:50 30 UNITS Insulin Human Regular (humuLIN R 100 UNIT/ML 3ML) 8 unit TIDAC SQ 01/11/25 07:30 02/10/25 07:29 01/11/25 16:22 8 UNIT Insulin Human Regular (humuLIN R 100 UNIT/ML 3ML) INSULIN SLIDING SCAL... ACHS SQ 01/05/25 07:30 01/05/25 09:57 DC 01/05/25 07:59 16 UNIT Insulin Human Regular (humuLIN R 100 UNIT/ML 3ML) INSULIN SLIDING SCAL... ACHS SQ 01/05/25 11:30 01/06/25 16:43 DC 01/06/25 11:50 8 UNIT Insulin Human Regular (humuLIN R 100 UNIT/ML 3ML) INSULIN SLIDING SCAL... ACHS SQ 01/06/25 17:00 01/07/25 13:32 DC 01/06/25 17:17 16 UNIT Insulin Human Regular (humuLIN R 100 UNIT/ML 3ML) INSULIN SLIDING SCAL... Q4H SQ 01/11/25 02:00 01/11/25 23:59 DC 01/11/25 20:49 6 UNIT Insulin Human Regular (humuLIN R 100 UNIT/ML 3ML) INSULIN SLIDING SCAL... Q4H SQ 01/11/25 23:59 02/10/25 23:58 01/13/25 01:21 6 UNIT Insulin Human Regular (humuLIN R 100 UNIT/ML 3ML) INSULIN SLIDING SCAL... Q6H6 SQ 01/10/25 18:00 01/11/25 00:50 DC 01/11/25 00:45 10 UNIT Insulin Human Regular 100 unit/ Sodium Chloride 100 ml @ 0 mls/hr AD PRN IV HYPERGLYCEMIA PROTOCOL 01/06/25 19:30 01/10/25 06:00 DC 01/09/25 19:10 16 MLS/HR Lactated Ringer's 1,000 ml @ 100 mls/hr Q10H IV 01/05/25 02:30 01/05/25 09:51 DC 01/05/25 02:30 100 MLS/HR Lactated Ringer's 1,000 ml @ 125 mls/hr Q8H IV 01/10/25 01:30 01/10/25 19:40 DC 01/10/25 13:07 125 MLS/HR Lactobacillus Rhamnosus ([facility]) 1 each DAILY PO 01/12/25 09:00 02/11/25 08:59 01/12/25 10:56 1 EACH Lorazepam (AtiVAN) 1 mg Q4H PRN IVP ALCOHOL WITHDRAWAL PROTOCOL 01/05/25 02:30 01/12/25 02:29 DC Magnesium Sulfate 50 ml @ 0 mls/hr PROTOCOL PRN IV h 01/05/25 02:30 02/04/25 02:29 01/13/25 04:13 25 MLS/HR Morphine Sulfate (morPHINE 2MG SYG) 2 mg Q4H PRN IVP SEVERE PAIN (7-10) 01/05/25 02:30 01/12/25 02:29 DC Multivitamins Therapeutic (Multivitamin Tablet) 1 tab DAILY PO 01/07/25 10:30 02/06/25 10:29 01/12/25 10:56 1 TAB Nicotine (Nicoderm) 21 mg DAILY TD 01/05/25 09:00 02/04/25 08:59 01/12/25 10:57 21 MG Nitroglycerin (Nitrostat) 0.4 mg AD PRN SL CHEST PAIN 01/05/25 02:30 02/04/25 02:29 Ondansetron HCl (zoFRAN 4MG INJ) 4 mg Q6H PRN IV NAUSEA/VOMITING 01/05/25 02:30 02/04/25 02:29 Pantoprazole Sodium (PROTonix 40MG TAB) 40 mg DAILY PO 01/05/25 09:00 02/04/25 08:59 01/12/25 10:52 40 MG Pharmacy Profile Note (Pharmacy Communication) 1 each PROTOCOL PRN MISC ETOH Withdrawal Score changes 01/05/25 02:30 01/12/25 02:29 DC Piperacillin Sod/ Tazobactam Sod (Zosyn 3.375gm+NS 50ml) 3.375 gm Q12H IV 01/05/25 02:30 01/07/25 13:24 DC 01/07/25 02:45 3.375 GM Potassium Phosphate 250 ml @ 42 mls/hr PROTOCOL PRN IV PROTOCOL 01/05/25 10:00 02/04/25 09:59 Potassium Chloride 100 ml @ 100 mls/hr AD PRN IV POTASSIUM PROTOCOL 01/05/25 02:30 01/07/25 10:12 DC Potassium Chloride 100 ml @ 100 mls/hr AD PRN IV POTASSIUM PROTOCOL 01/07/25 10:30 02/06/25 10:29 01/09/25 06:26 100 MLS/HR Potassium Chloride (K-Dur 10meq Sr Tab) 10 meq AD PRN PO POTASSIUM PROTOCOL 01/06/25 09:30 02/04/25 02:29 01/08/25 23:35 10 MEQ Potassium Chloride (K-Dur/Klor-Con 20meq) 10 meq AD PRN PO POTASSIUM PROTOCOL 01/05/25 02:30 01/06/25 09:12 DC 01/05/25 22:15 10 MEQ Potassium Chloride (K-Dur/Klor-Con 20meq) 10 meq AD PRN PO POTASSIUM PROTOCOL 01/07/25 10:30 01/07/25 10:12 DC Potassium Chloride (KCl 10% Elixir 20meq/15ml) 10 meq AD PRN PO POTASSIUM PROTOCOL 01/05/25 02:30 01/07/25 10:12 DC 01/06/25 17:16 10 MEQ Potassium Chloride (KCl 10% Elixir 20meq/15ml) 10 meq AD PRN PO POTASSIUM PROTOCOL 01/07/25 10:30 02/06/25 10:29 01/08/25 15:28 10 MEQ Sodium Bicarbonate (Sodium Bicarbonate) 1,300 mg BID PO 01/11/25 09:00 02/10/25 08:59 01/12/25 21:48 1,300 MG Sodium Chloride 1,000 ml @ 50 mls/hr Q20H IV 01/05/25 10:00 01/10/25 01:33 DC 01/09/25 05:56 50 MLS/HR Sodium Chloride 1,000 ml @ 75 mls/hr [id number] IV 01/11/25 01:00 01/11/25 13:45 DC 01/11/25 01:00 75 MLS/HR Triamcinolone Acetonide (Kenalog/ Aristocort) 1 APPLY TP BID BID TP 01/07/25 11:00 02/06/25 10:59 01/12/25 22:07 1 APPL Vancomycin HCl (Vancomycin Protocol) 1 each AD IV 01/07/25 12:30 01/07/25 12:40 DC DIAGNOSTICS / RADIOLOGY: [ ] ASSESSMENT: Severe sepsis, POA Gram-positive bacteremia secondary to Staphylococcus aureus, POA Hypodense echogenic mobile vegetation to right coronary cusp leaflet on echocardiogram 01/05/2025 Left atrial appendage clot present. on DRKAE 01/11 non coronary cusp leaflet has vegetation that measures 1.8 x 1.1 cm. on DRAKE 01/11 Urinary tract infection, secondary to Klebsiella pneumoniae, POA Strep pharyngitis, POA ITP, POA Leukocytosis, POA Hyperlactatemia, POA Acute kidney injury, POA Hypokalemia, POA Hyponatremia, POA Hypomagnesemia, POA POA New onset Uncontrolled Diabetes mellitius type2, POA Elevated troponin, POA Cocaine abuse, POA Alcohol abuse, POA Tobacco dependence, POA Significant proteinuria, POA Diabetic nephropathy, POA Gallstones, POA Fidelina esophagitis on EGD 01/11 PLAN: -patient to be downgraded to the medical floor -continue the patient on broad-spectrum IV antibiotics -results of DRAKE reviewed, Left atrial appendage clot present. on DRAKE 01/11, aortic valve is trileaflet, opens well. Non coronary cusp leaflet has vegetation that measures 1.8 x 1.1 cm. on DRAKE 01/11 -continue heparin drip. Patient already evaluated by Cardiothoracic surgeon, continue medical management, we will re-evaluate possibility of aortic valve replacement in the near future. 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 Continue to follow Hematology input and recommendation -renal function slightly improved today, patient evaluated by test driver, the patient with significant proteinuria on UA consistent with diabetic nephropathy. No acute need for any form of renal replacement therapy. -blood culture positive for Staphylococcus aureus. Urine culture positive for Klebsiella pneumoniae. Continue broad-spectrum IV antibiotics, continue to follow ID input recommendation. -case discussed with case management, patient to complete course of IV antibiotics likely during this hospitalization as the patient is uninsured. Disposition: Pending improvement in clinical condition. We will downgraded to the medical floor. All questions answered time spent: > 35 min MAHOGANY CARBAJAL MD Jan 13, 2025 11:01
[2025-01-13] MEDS ORDERED: IOHEXOL 350 MG/ML 100ML INFUS..BTL IV ONE (12:56)
--- NOTE | 2025-01-13 13:44 | HMCIMG ---
CT HEAD/BRAIN W/WO CONTRAST HISTORY: Endocarditis COMPARISON: None TECHNIQUE: Multiple sequential axial images of the head were obtained from the base of the skull through vertex. Patient was given 50 cc of Omnipaque through intravenous route. FINDINGS: The ventricles and extraventricular CSF spaces are nondilated for patient's age. There is no midline shift, mass effect or herniation. No acute intracranial bleed is seen. Visualized portion of the paranasal sinuses are grossly within normal limits. No abnormal enhancement is seen. IMPRESSION: 1. No acute intracranial bleed is seen. No abnormal enhancement is seen. CT was performed with one or more following dose reduction techniques: automated exposure control, adjustment of the mA and kv according to patient's size, or use of a iterative reconstruction technique.
--- NOTE | 2025-01-13 14:02 | HMCIMG ---
CT CHEST W/WO CONTRAST HISTORY: Endocarditis COMPARISON: None TECHNIQUE: Multiple sequential axial images of the chest were obtained from the thoracic inlet through upper abdomen. Patient was given 50 cc of Omnipaque through intravenous route. FINDINGS: There is no evidence of pulmonary nodule or parenchymal disease. There are bibasilar linear atelectasis. There are motion artifacts degrading the image quality. A small hiatal hernia is seen. No pleural effusion or pericardial effusion is seen. There is no evidence of pneumothorax. There are normal size mediastinal and hilar lymph nodes. The heart is not enlarged. Coronary arterial calcifications are seen. Degenerative changes of the thoracolumbar spine are present. There is no evidence of adrenal nodule. IMPRESSION: 1. No evidence of pulmonary nodule or effusion is seen. Bibasilar linear atelectasis. CT was performed with one or more following dose reduction techniques: automated exposure control, adjustment of the mA and kv according to patient's size, or use of a iterative reconstruction technique.
--- NOTE | 2025-01-13 16:50 | PN ---
Mr. Jin is a 44-year-old male that was seen and examined today on 01/05/2025. Patient is a good historian and personal health. Patient is a good historian and personal health. Patient states that he came to the emergency department at the behest of his daughter. Patient's chief complaint is weakness. Onset was Thursday12/30/2024. Location is to entire body. Duration is constant. Character is described as, " today Orion needed help to get out of the sofa and out of the shower. I also fell down once. "There was no alleviating factors. Symptoms are aggravated with physical activity. Patient denies any associated chest pain or shortness and breath. I was consulted because of leukocytosis and severe thrombocytopenia. This patient have have any alcoholism. Patient also on cocaine. It seems the patient may be have pyelonephritis by CT scan with the patient was started on antibiotic treatment. This patient was found to have thrombocytopenia. Which was multifactorial including cirrhosis of the liver and possible ITP. Platelet count improved. This patient receiving dexamethasone 20 mg IV daily. Patient was found to have bacteremia. With the 2D echo showing possible vegetation of the valve. Patient have DRAKE which showed patient to have intra-atrial thrombosis. Patient receiving heparin drip PE General Appearance: Alert, Oriented X3, Cooperative, moderate distress HEENT: Atraumatic, PERRLA, EOMI, Other (Mucous membranes dry and cracked) Respiratory: Clear to auscultation, Normal air movement, NL respiratory effort Cardiovascular: Normal S1, Normal S2, Other (Tachycardia) Abdominal: Normal bowel sounds, Soft, No tenderness Extremities: No edema Skin: No significant lesion Neuro: Normal gait, Normal speech, Strength at 5/5 X4 ext, Sensation intact, Cranial nerves 3-12 NL Psych/Mental Status: Mental status NL, Mood NL, Thoughts/Content NL Assessment 1. Thrombocytopenia. 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 2. Acute on chronic renal failure 4. Severe sepsis. Possible bacteremia and possible endocarditis 5. Leukocytosis 6. Cocaine abuse 7. Alcohol abuse 8. Hepatomegaly 9. Splenomegaly 10. Bacteremia with possibility of endocarditis. 11. DRAKE showing intra-atrial thrombus which could be infection. The patient is receiving heparin drip. Plan 1.Platelet count actually dropped to 67K. We will continue with decrease the dose of dexamethasone to 20 mg IV. Platelet count continue to be coming down we need to increase the dose of dexamethasone to 40 mg IV daily 2. There was hypersegmented neutrophils. This patient to Continue on folic acid 1 mg p.o. daily and vitamin B12 1000 mcg p.o. daily. 3. Please do not transfuse any platelet 4. We will ask for peripheral smear to be done on this patient. 5. Patient to have CBC tomorrow. 6. Patient to Continue heparin drip. the APTT goal between 6090. 7. This patient has prognosis is very poor. 8. Continue antibiotic treatment as per infectious disease specialist Vitals/Labs Vital Signs Date Time Temp Pulse Resp B/P (MAP) Pulse Ox O2 Delivery O2 Flow Rate FiO2 01/13/25 12:00 97.7 72 16 138/88 99 Room Air 01/13/25 08:00 0 21 Laboratory Tests 01/13/25 03:28 Medications Current Medications Sodium Chloride 1,000 ml @ 125 mls/hr ONCE ONCE IV Last administered on 01/05/25at 00:13; Start 01/04/25 at 23:00; Stop 01/05/25 at 06:59; Status DC Aspirin 81 mg ONCE ONCE PO Last administered on 01/05/25at 00:14; Start 01/04/25 at 23:00; Stop 01/04/25 at 23:01; Status DC Ondansetron HCl 4 mg ONCE ONCE IVP Last administered on 01/05/25at 00:13; Start 01/04/25 at 23:00; Stop 01/04/25 at 23:01; Status DC Potassium Chloride 100 ml @ 50 mls/hr ONCE ONCE IV Last administered on 01/05/25at 00:13; Start 01/05/25 at 00:00; Stop 01/05/25 at 01:59; Status DC Potassium Chloride 100 ml @ 50 mls/hr ONCE ONCE IV Last administered on 01/05/25at 03:12; Start 01/05/25 at 00:00; Stop 01/05/25 at 01:59; Status DC Thiamine HCl 100 mg ONCE ONCE IVP Last administered on 01/05/25at 01:01; Start 01/05/25 at 00:00; Stop 01/05/25 at 00:01; Status DC Acetaminophen 500 mg STK-MED ONCE .ROUTE; Start 01/05/25 at 00:28; Stop 01/05/25 at 00:28; Status DC Cefepime HCl 1 gm ONCE ONCE IVPB Last administered on 01/05/25at 01:01; Start 01/05/25 at 01:00; Stop 01/05/25 at 01:02; Status DC Vancomycin HCl 750 mg ONCE ONCE IVPB Last administered on 01/05/25at 02:12; Start 01/05/25 at 01:00; Stop 01/05/25 at 01:02; Status DC Sodium Chloride 250 ml ONCE ONCE IVPB Last administered on 01/05/25at 02:12; Start 01/05/25 at 01:00; Stop 01/05/25 at 01:02; Status DC Acetaminophen 1,000 mg ONCE ONCE PO Last administered on 01/05/25at 00:30; Start 01/05/25 at 01:00; Stop 01/05/25 at 01:02; Status DC Aspirin 81 mg DAILY PO; Start 01/05/25 at 09:00; Stop 01/05/25 at 09:53; Status DC Nitroglycerin 0.4 mg AD PRN SL; Start 01/05/25 at 02:30; Stop 02/04/25 at 02:29 Aspirin 162 mg ONCE ONCE PO Last administered on 01/05/25at 03:06; Start 01/05/25 at 02:30; Stop 01/05/25 at 02:31; Status DC Insulin Human Regular INSULIN SLIDING SCAL... ACHS SQ Last administered on 01/05/25at 07:59; Start 01/05/25 at 07:30; Stop 01/05/25 at 09:57; Status DC Lactated Ringer's 3,429 ml @ 1,143 mls/hr ONCE ONCE IV Last administered on 01/05/25at 03:12; Start 01/05/25 at 02:30; Stop 01/05/25 at 05:29; Status DC Piperacillin Sod/ Tazobactam Sod 3.375 gm Q12H IV Last administered on 01/07/25at 02:45; Start 01/05/25 at 02:30; Stop 01/07/25 at 13:24; Status DC Potassium Chloride 100 ml @ 100 mls/hr AD PRN IV; Start 01/05/25 at 02:30; Stop 01/07/25 at 10:12; Status DC Potassium Chloride 10 meq AD PRN PO Last administered on 01/06/25at 17:16; Start 01/05/25 at 02:30; Stop 01/07/25 at 10:12; Status DC Potassium Chloride 10 meq AD PRN PO Last administered on 01/05/25at 22:15; Start 01/05/25 at 02:30; Stop 01/06/25 at 09:12; Status DC Acetaminophen 650 mg Q6H PRN PO Last administered on 01/08/25at 04:21; Start 01/05/25 at 02:30; Stop 02/04/25 at 02:29 Pantoprazole Sodium 40 mg DAILY PO Last administered on 01/12/25at 10:52; Start 01/05/25 at 09:00; Stop 02/04/25 at 08:59 Ondansetron HCl 4 mg Q6H PRN IV; Start 01/05/25 at 02:30; Stop 02/04/25 at 02:29 Morphine Sulfate 2 mg Q4H PRN IVP; Start 01/05/25 at 02:30; Stop 01/12/25 at 02:29; Status DC Hydralazine HCl 10 mg Q6H PRN IV; Start 01/05/25 at 02:30; Stop 01/05/25 at 09:53; Status DC Benzocaine 1 each Q4H PRN MM; Start 01/05/25 at 02:30; Stop 02/04/25 at 02:29 Magnesium Sulfate 50 ml @ 0 mls/hr PROTOCOL PRN IV Last administered on 01/13/25at 04:13; Start 01/05/25 at 02:30; Stop 02/04/25 at 02:29 Lactated Ringer's 1,000 ml @ 100 mls/hr Q10H IV Last administered on 01/05/25at 02:30; Start 01/05/25 at 02:30; Stop 01/05/25 at 09:51; Status DC Chlordiazepoxide HCl 25 mg Q8H PO Last administered on 01/10/25at 22:23; Start 01/05/25 at 02:30; Stop 01/11/25 at 11:39; Status DC Lorazepam 1 mg Q4H PRN IVP; Start 01/05/25 at 02:30; Stop 01/12/25 at 02:29; Status DC Pharmacy Profile Note 1 each PROTOCOL PRN MISC; Start 01/05/25 at 02:30; Stop 01/12/25 at 02:29; Status DC Nicotine 21 mg DAILY TD Last administered on 01/13/25at 09:00; Start 01/05/25 at 09:00; Stop 02/04/25 at 08:59 Sodium Chloride 1,000 ml @ 50 mls/hr Q20H IV Last administered on 01/09/25at 05:56; Start 01/05/25 at 10:00; Stop 01/10/25 at 01:33; Status DC Potassium Phosphate 250 ml @ 42 mls/hr PROTOCOL PRN IV; Start 01/05/25 at 10:00; Stop 02/04/25 at 09:59 Hydralazine HCl 5 mg Q6H PRN IV Last administered on 01/10/25at 22:24; Start 01/05/25 at 14:30; Stop 02/04/25 at 14:29 Doxycycline Hyclate 250 ml @ 125 mls/hr Q12H IV Last administered on 01/06/25at 09:30; Start 01/05/25 at 10:00; Stop 01/06/25 at 21:05; Status DC Potassium Chloride 40 meq ONCE ONCE PO Last administered on 01/05/25at 10:25; Start 01/05/25 at 10:00; Stop 01/05/25 at 10:01; Status DC Potassium Chloride 100 ml @ 50 mls/hr ONCE ONCE IV Last administered on 01/05/25at 10:25; Start 01/05/25 at 10:00; Stop 01/05/25 at 11:59; Status DC Dextrose 50 ml AD PRN IV; Start 01/05/25 at 10:00; Stop 02/04/25 at 09:59 Glucagon 1 mg AD PRN IM; Start 01/05/25 at 10:00; Stop 02/04/25 at 09:59 Insulin Human Regular INSULIN SLIDING SCAL... ACHS SQ Last administered on 01/06/25at 11:50; Start 01/05/25 at 11:30; Stop 01/06/25 at 16:43; Status DC Dexamethasone Sodium Phosphate 10 mg ONCE ONCE IVP Last administered on 01/05/25at 17:27; Start 01/05/25 at 13:30; Stop 01/05/25 at 14:03; Status DC Insulin Glargine 20 units HS SQ; Start 01/06/25 at 21:00; Stop 01/06/25 at 21:05; Status DC Potassium Chloride 10 meq AD PRN PO Last administered on 01/08/25at 23:35; Start 01/06/25 at 09:30; Stop 02/04/25 at 02:29 Dexamethasone Sodium Phosphate 40 mg DAILY ONCE IV; Start 01/07/25 at 09:00; Stop 01/06/25 at 13:27; Status DC Dexamethasone Sodium Phosphate 40 mg/Sodium Chloride 50 ml @ 100 mls/hr DAILY IV Last administered on 01/08/25at 09:34; Start 01/06/25 at 14:00; Stop 01/08/25 at 12:16; Status DC Insulin Human Regular INSULIN SLIDING SCAL... ACHS SQ Last administered on 01/06/25at 17:17; Start 01/06/25 at 17:00; Stop 01/07/25 at 13:32; Status DC Insulin Human Regular 100 unit/ Sodium Chloride 100 ml @ 0 mls/hr AD PRN IV Last administered on 01/09/25at 19:10; Start 01/06/25 at 19:30; Stop 01/10/25 at 06:00; Status DC Insulin Glargine 20 units HS SQ Last administered on 01/06/25at 21:33; Start 01/06/25 at 21:30; Stop 01/07/25 at 10:24; Status DC Doxycycline Hyclate 250 ml @ 125 mls/hr Q12H IV Last administered on 01/12/25at 21:48; Start 01/06/25 at 21:30; Stop 01/16/25 at 21:29 Chlordiazepoxide HCl 25 mg STK-MED ONCE .ROUTE; Start 01/07/25 at 02:35; Stop 01/07/25 at 02:41; Status DC Piperacillin Sod/ Tazobactam Sod 50 ml @ As Directed STK-MED ONCE .ROUTE; Start 01/07/25 at 02:39; Stop 01/07/25 at 02:41; Status DC Potassium Chloride 0 ml @ As Directed STK-MED ONCE IV; Start 01/07/25 at 07:28; Stop 01/07/25 at 07:31; Status DC Potassium Chloride 40 meq ONCE ONCE PO Last administered on 01/07/25at 09:44; Start 01/07/25 at 10:00; Stop 01/07/25 at 10:01; Status DC Potassium Chloride 100 ml @ 100 mls/hr AD PRN IV Last administered on 01/09/25at 06:26; Start 01/07/25 at 10:30; Stop 02/06/25 at 10:29 Potassium Chloride 10 meq AD PRN PO Last administered on 01/08/25at 15:28; Start 01/07/25 at 10:30; Stop 02/06/25 at 10:29 Potassium Chloride 10 meq AD PRN PO; Start 01/07/25 at 10:30; Stop 01/07/25 at 10:12; Status DC Insulin Glargine 15 units Q12H SQ Last administered on 01/09/25at 13:10; Start 01/07/25 at 21:30; Stop 01/09/25 at 23:18; Status DC Insulin Glargine 10 units ONCE ONCE SQ Last administered on 01/07/25at 10:40; Start 01/07/25 at 10:30; Stop 01/07/25 at 10:31; Status DC Thiamine HCl 300 mg DAILY ONCE IVP Last administered on 01/07/25at 10:39; Start 01/07/25 at 10:30; Stop 01/07/25 at 10:31; Status DC Multivitamins Therapeutic 1 tab DAILY PO Last administered on 01/12/25at 10:56; Start 01/07/25 at 10:30; Stop 02/06/25 at 10:29 Folic Acid 1 mg DAILY PO Last administered on 01/12/25at 10:52; Start 01/07/25 at 10:30; Stop 02/06/25 at 10:29 Triamcinolone Acetonide 1 APPLY TP BID BID TP Last administered on 01/12/25at 22:07; Start 01/07/25 at 11:00; Stop 02/06/25 at 10:59 Vancomycin HCl 1 each AD IV; Start 01/07/25 at 12:30; Stop 01/07/25 at 12:40; Status DC Cefazolin Sodium 2 gm Q12H IVPB Last administered on 01/13/25at 02:26; Start 01/07/25 at 13:30; Stop 01/24/25 at 21:00 Furosemide 20 mg Q12H IV Last administered on 01/10/25at 19:40; Start 01/07/25 at 16:00; Stop 01/11/25 at 00:56; Status DC Calcium Gluconate 1 gm/Sodium Chloride 100 ml @ 0 mls/hr AD PRN IV Last administered on 01/08/25at 23:32; Start 01/08/25 at 02:30; Stop 02/07/25 at 02:29 Dexamethasone Sodium Phosphate 20 mg/Sodium Chloride 52 ml @ 100 mls/hr DAILY IV Last administered on 01/13/25at 09:00; Start 01/09/25 at 09:00; Stop 02/08/25 at 08:59 Insulin Glargine 20 units Q12H SQ; Start 01/10/25 at 09:30; Stop 01/10/25 at 12:58; Status DC Lactated Ringer's 1,000 ml @ 125 mls/hr Q8H IV Last administered on 01/10/25at 13:07; Start 01/10/25 at 01:30; Stop 01/10/25 at 19:40; Status DC Lactated Ringer's 1,000 ml BOLUS ONCE IV Last administered on 01/10/25at 09:20; Start 01/10/25 at 07:30; Stop 01/10/25 at 07:31; Status DC Lidocaine HCl 100 mg STK-MED ONCE .ROUTE; Start 01/10/25 at 08:01; Stop 01/10/25 at 08:02; Status DC Propofol 200 mg STK-MED ONCE IV; Start 01/10/25 at 08:02; Stop 01/10/25 at 08:02; Status DC Glycopyrrolate 1 mg STK-MED ONCE .ROUTE; Start 01/10/25 at 08:02; Stop 01/10/25 at 08:02; Status DC Ketamine HCl 50 mg STK-MED ONCE .ROUTE; Start 01/10/25 at 08:03; Stop 01/10/25 at 08:03; Status DC Insulin Glargine 25 units Q12H SQ Last administered on 01/10/25at 22:19; Start 01/10/25 at 21:30; Stop 01/11/25 at 00:50; Status DC Insulin Human Regular INSULIN SLIDING SCAL... Q6H6 SQ Last administered on 01/11/25at 00:45; Start 01/10/25 at 18:00; Stop 01/11/25 at 00:50; Status DC Insulin Glargine 30 units Q12H SQ Last administered on 01/11/25at 10:50; Start 01/11/25 at 09:30; Stop 01/11/25 at 20:13; Status DC Insulin Human Regular INSULIN SLIDING SCAL... Q4H SQ Last administered on 01/11/25at 20:49; Start 01/11/25 at 02:00; Stop 01/11/25 at 23:59; Status DC Sodium Chloride 1,000 ml @ 75 mls/hr [id number] IV Last administered on 01/11/25at 01:00; Start 01/11/25 at 01:00; Stop 01/11/25 at 13:45; Status DC Sodium Bicarbonate 1,300 mg BID PO Last administered on 01/12/25at 21:48; Start 01/11/25 at 09:00; Stop 02/10/25 at 08:59 Insulin Human Regular 8 unit TIDAC SQ Last administered on 01/11/25at 16:22; Start 01/11/25 at 07:30; Stop 02/10/25 at 07:29 Lidocaine HCl 100 mg STK-MED ONCE .ROUTE; Start 01/11/25 at 07:00; Stop 01/11/25 at 07:00; Status DC Atropine Sulfate 1 mg STK-MED ONCE IVP; Start 01/11/25 at 07:00; Stop 01/11/25 at 07:00; Status DC Propofol 200 mg STK-MED ONCE IV; Start 01/11/25 at 07:00; Stop 01/11/25 at 07:00; Status DC Succinylcholine Chloride 200 mg STK-MED ONCE .ROUTE; Start 01/11/25 at 07:00; Stop 01/11/25 at 07:00; Status DC Ketamine HCl 50 mg STK-MED ONCE .ROUTE; Start 01/11/25 at 07:00; Stop 01/11/25 at 07:01; Status DC Glycopyrrolate 1 mg STK-MED ONCE .ROUTE; Start 01/11/25 at 07:01; Stop 01/11/25 at 07:01; Status DC Sodium Chloride 10 ml STK-MED ONCE .ROUTE; Start 01/11/25 at 07:01; Stop 01/11/25 at 07:01; Status DC Phenylephrine HCl 10 mg STK-MED ONCE IV; Start 01/11/25 at 07:01; Stop 01/11/25 at 07:01; Status DC Midazolam HCl 2 mg STK-MED ONCE .ROUTE; Start 01/11/25 at 07:08; Stop 01/11/25 at 07:08; Status DC Ondansetron HCl 4 mg STK-MED ONCE .ROUTE; Start 01/11/25 at 07:34; Stop 01/11/25 at 07:35; Status DC Chlordiazepoxide HCl 25 mg Q8H PRN PO; Start 01/11/25 at 12:00; Stop 01/12/25 at 02:29; Status DC Heparin Sodium/ Dextrose 250 ml @ 0 mls/hr PROTOCOL IV Last administered on 01/13/25at 11:52; Start 01/11/25 at 14:30; Stop 02/10/25 at 14:29 Fluconazole 200 mg ONCE ONCE PO Last administered on 01/11/25at 15:18; Start 01/11/25 at 15:30; Stop 01/11/25 at 15:31; Status DC Fluconazole 200 mg DAILY PO Last administered on 01/12/25at 10:55; Start 01/12/25 at 09:00; Stop 02/11/25 at 08:59 Lactobacillus Rhamnosus 1 each DAILY PO Last administered on 01/12/25at 10:56; Start 01/12/25 at 09:00; Stop 02/11/25 at 08:59 Insulin Glargine 30 units DAILY SQ Last administered on 01/12/25at 11:25; Start 01/12/25 at 09:00; Stop 02/10/25 at 09:29 Insulin Human Regular INSULIN SLIDING SCAL... Q4H SQ Last administered on 01/13/25at 01:21; Start 01/11/25 at 23:59; Stop 02/10/25 at 23:58 Heparin Sodium (Porcine) 4,000 unit ONCE ONCE IV Last administered on 01/12/25at 22:36; Start 01/12/25 at 22:30; Stop 01/12/25 at 22:31; Status DC Iohexol 35,000 mg STK-MED ONCE IV; Start 01/13/25 at 12:56; Stop 01/13/25 at 12:57; Status DC LEOPOLDO AGUILAR MD Jan 13, 2025 16:50
--- NOTE | 2025-01-13 17:15 | PN ---
[facility] PROGRESS NOTE Date Patient Seen: Jan 13, 2025 Time of Visit: 15:10 Supervising Physician: DR. KATIE ORELLANA Primary Care Physician: Metropolitan Editor PCP Outpatient Specialists: [ ] Inpatient Consults:Critical care, Hematology, cardiology and nephrology PROBLEM LIST: Endocarditis POA DRAKE on 01/11/25 with 1.1 cm aortic valve vegetation and KARINA thrombus Severe sepsis and shock POA, resolving Werner Esophagitis per EGD results 01/11/25 Urinary tract infection, POA Klebsiella pneumoniae cultured in the urine Staph aureus bacteremia POA Strep pharyngitis, POA Acute kidney injury, POA improving Electrolyte derangement POA ( hypokalemia, Hyponatremia) 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 Uncontrolled Diabetes mellitius type2, POA HgA1C 8.5 NTEMI Type II KS POA PolySubstance abuse, POA, (cocaine/Marijuana) Alcohol dependence, POA Tobacco dependence, POA Acute cholecystitis on HIDA scan 01/07/25 POA Hepatomegaly with hepato steatosis MELD score on admission of 31 Morbid obesity Noncompliance behavior INTERVAL HISTORY: 01/11/25- patient is awake alert and oriented x3. Post EGD and DRAKE found to have vegetation in the aortic valve and thrombus in the KARINA, and LVEF of 60- 65%.. Per Hematology started heparin gtt per protocol today. For now patient is hemodynamically stable afebrile heart rate in the 80s respiratory rate of 18 saturating 99% on room air. Patient has a urine output of 4.4 L last night and a balance of-2.2 L. He had 2 bowel movements this morning. Pt continues with ancef IV for MSSA endocarditis. He will need at least 6 weeks of IV abx. WBCs are 12.5 H&H is normal platelet count is 113 K. sodium 145 potassium of 4 carbon dioxide of 22 BUN 59 creatinine 1.8 and GFR of 47 glucose of 102 mg/dL. Patient is stable downgrade from ICU to PCCU. 01/12/25 Patient is a 44 year old gentleman who initially presented with endocarditis and thrombus in the KARINA, placed on Heparin drip by Kindergarten Instructional Assistant since platelets count are better there is no report of fever, chills, nausea or vomiting, plan is to continue with CIWA protocol, monitor WBC, kidney function has improved, BS is stable patient remains on room air and antibiotic therapy as well antifungal medication since he is positive for werner in the esophagus, Midline has been inserted for antibiotic otherwise patient requires to be stable in order to evaluate if he will be candidate for surgery . 01/13/25 Patient is 44 year old male awake alert, well oriented who continues to be on antibiotic due to Endocarditis he has no fever, chills, no chest pain or SOB at this moment, has been follow by Dr. Quinn, Dr. Javier and Dr. Garcia offer no new issues he might need CV surgery , we will follow up closely. REVIEW OF SYSTEMS: 12 point ROS reviewed with patient. Pertinent positives mentioned above. Ot herwise negative. PHYSICAL EXAM: GENERAL: alert, weak, awake oriented x 3 HEENT: EOMI, Sclera non icteric, moist mucosa NECK: Supple, no JVD, trachea midline LUNGS: Clear breath sounds bilaterally. No wheezes HEART: Regular rate and rhythm. Normal S1 and S2, without murmurs ABD: Abdomen soft, nontender. Bowel sounds present EXT: No clubbing cyanosis or edema NEURO: Alert and oriented to person, follows commands Vital Signs (last 8hr) Date Time Temp Pulse Resp B/P (MAP) Pulse Ox O2 Delivery O2 Flow Rate FiO2 01/13/25 12:00 97.7 72 16 138/88 99 Room Air LABS: Hematology Labs: Test 01/13/25 03:28 01/12/25 03:37 Range/Units White Blood Count 12.1 H 4.8-10.8 K/uL Red Blood Count 3.98 L 4.50-6.20 MIL/uL Hemoglobin 12.8 L 14.0-18.0 g/dL Hematocrit 37.2 L 42-54 % Mean Corpuscular Volume 93.5 79-99 fL Mean Corpuscular Hemoglobin 32.2 27.0-33.0 pg Mean Corpuscular Hemoglobin Concent 34.4 32.0-36.0 g/dL Red Cell Distribution Width 13.5 11.0-15.5 % Platelet Count 162 130-400 K/uL Mean Platelet Volume 10.9 H 7.5-10.5 fL Immature Granulocyte % (Auto) 0.9 0-1 % Neutrophils (%) (Auto) 86.3 H 40.0-77.0 % Lymphocytes (%) (Auto) 7.7 L 21.0-51.0 % Monocytes (%) (Auto) 5.0 3.0-13.0 % Eosinophils (%) (Auto) 0.0 0.0-8.0 % Basophils (%) (Auto) 0.1 0.0-5.0 % Neutrophils # (Auto) 10.5 H 1.8-7.7 K/uL Lymphocytes # (Auto) 0.9 L 1.0-4.8 K/uL Monocytes # (Auto) 0.6 0.1-1.0 K/uL Eosinophils # (Auto) 0.00 0.00-0.70 K/uL Basophils # (Auto) 0.01 0.00-0.20 K/uL Absolute Immature Granulocyte (auto 0.11 0-1 K/uL Nucleated Red Blood Cells 0.0 0.0-0.19 % White Cell Morphology Comment See comments Chemistry Labs: Test 01/13/25 16:48 01/13/25 03:28 01/12/25 16:05 01/12/25 03:37 Range/Units Whole Blood Glucose 188 #H 70-110 MG/DL Sodium Level 141 136-145 mmol/L Potassium Level 4.3 3.5-5.1 mmol/L Chloride Level 111 101-111 mmol/L Carbon Dioxide Level 19 L 21-32 mmol/L Blood Urea Nitrogen 43 H 7-18 mg/dL Creatinine 1.6 H 0.5-1.3 mg/dL Glomerular Filtration Rate Calc 54 >90 mL/min Random Glucose 160 H 70-105 mg/dL Total Calcium 7.0 L 8.5-10.1 mg/dL Magnesium Level 1.80 1.80-2.40 mg/dL Total Bilirubin 1.0 0.2-1.0 mg/dL Aspartate Amino Transf (AST/SGOT) 15 10-37 U/L Alanine Aminotransferase (ALT/SGPT) 21 12-78 U/L Alkaline Phosphatase 91 50-136 U/L Troponin I High Sensitivity 8 4-75 ng/L Total Protein 5.9 L 6.0-8.3 g/dL Albumin 1.9 L 3.5-5.0 g/dL Bedside Glucose Comment Notified Nurse Whole Blood Ketones Quantitative 0.1 0.0-0.6 mmol/L Ammonia 22 11-32 umol/L Coagulation Labs: Test 01/13/25 09:29 Range/Units Activated Partial Thromboplast Time 100.4 #*H 26.3-35.5 SEC DIAGNOSTICS / RADIOLOGY RESULTS: [ ] PLAN Follow up CV recommendations Continues with antibiotic and antifungal treatment follow brick kiln worker recommendations follow up with arts and humanities council director for further recommendations [facility] protocol NEURO: Minimize central acting medications as possible. Maintain fall precautions, adequate lighting during the day PULMONARY: Supplemental 02 as needed. Maintain aspiration precautions at all times CARDIOVASCULAR: Follow hemodynamics. Vital signs per facility protocol GI & NUTRITION: Continue with nutritional support. Continue stool softeners and laxatives as needed. KIDNEYS & ELECTROLYTES: Strict monitoring of intake, output and overall fluid balance. Avoid nephrotoxic medications to the extent possible. Medications to be dosed according to renal function. Monitor electrolytes and replace as needed ENDOCRINE: Maintain blood glucose between 100-180 at all times. Hypoglycemia protocol in place INFECTIOUS DISEASE: Trend temperature, WBC and procalcitonin level Follow cultures, deescalate antibiotics as soon as possible. Panculture if new onset fever ONCOLOGY/HEMATOLOGY/COAGULATION: Monitor for s/s of bleeding Monitor hemoglobin, coagulation studies as needed SKIN: Pressure ulcer prevention per facility protocol Specialty mattress ORTHO/REHAB: Continue PT/OT Prophylaxis: Continue GI and DVT prophylaxis Code Status: Full Resuscitation ATTESTATION BY PHYSICIAN Documentation assistance provided by a scribe, information recorded by the scribe was done at my direction and has been reviewed and validated by me." KATIE ORELLANA MD I personally scribed for KATIE ORELLANA MD ([email or web address]) on 01/13/25 at 17:15. Electronically submitted by Kamilah Diop ([id number]). KATIE ORELLANA MD Jan 13, 2025 17:15
--- NOTE | 2025-01-13 20:44 | PN ---
This is a patient admitted with Staph aureus bacteremia and a large vegetation on the aortic valve. The patient has folliculitis on physical exam and also has a history of alcohol abuse. I have discussed the case with Infectious Diseases, Pulmonary and Cardiology. We all think that the patient will require intervention, however, sterilizing the blood and treating the scalp folliculitis would be of utmost importance especially since the patient is hemodynamically stable without any history of embolization. We will follow with you. TID: [id number] RECEIPT: [id number]
--- NOTE | 2025-01-13 21:09 | PN ---
INFECTIOUS DISEASE FOLLOWUP NOTE DATE OF SERVICE: 01/13/2025 SUBJECTIVE: The patient is seen and examined at bedside. No fever, no chills. No nausea or vomiting. No sore throat or rhinorrhea. No bleeding tendency. No rashes or itchiness. No depression, no suicidal ideation. Blood culture remains positive. PHYSICAL EXAMINATION: VITAL SIGNS: Temperature today 98.1. EYES: No icterus. Pupils equal and reactive. HENT: No oral thrush seen. Extensive folliculitis involving the posterior aspect of the scalp. NECK: Supple. No JVD or thyromegaly. LUNGS: Good air entry. No rales, no rhonchi. CARDIOVASCULAR: S1, S2 regular. No murmur heard. ABDOMEN: Full, soft. Bowel sound is present. Obese. No organomegaly. CENTRAL NERVOUS SYSTEM: Awake, alert, oriented x 3. No focal deficits. SKIN: No rashes, no itchiness. LYMPHATIC: No peripheral lymphadenopathy. BACK: No deformity, no pressure ulcer. MUSCULOSKELETAL: No joint swelling, erythema, or tenderness. ASSESSMENT: A 44-year-old male with multiple problems, which include: * Staphylococcal bacteremia and sepsis. * Endocarditis. * Morbid obesity. * Chronic scalp folliculitis. * Cocaine abuse. * Current tobacco use. * Alcohol abuse. PLAN: * Continue wound care. * Continue cefazolin. * Blood culture will be repeated. * Continue pain management. * Continue thiamine. * Continue folic acid. * This patient will be high risk for prosthetic valve infection due to chronic folliculitis with drainage. TID: [id number] RECEIPT: [id number]
--- NOTE | 2025-01-13 23:36 | NUR ---
patient is medsurg/telemetry. Called report to nurse mahesh. patient will be going to room 412.
--- NOTE | 2025-01-13 23:53 | NUR ---
patient on heparin drip 15 units/kg/hr, 16.29ml/hr. next ptt at midnight. report given to receiving nurse mahesh.
[2025-01-14] VITALS (9 sets, daily range): BP systolic 131–145; BP diastolic 81–97; PULSE 63–81; RESP 16–20; TEMP 97.4–98.6; O2SAT 97–98
[2025-01-14 04:51] LABS: BASOPHILS # (AUTO) 0.01 K/uL (0.00-0.20); BASOPHILS % (AUTO) 0.1 % (0.0-5.0); IMMATURE GRANULOCYTE ABSOLUTE 0.05 K/uL (0-1); LYMPHOCYTES # (AUTO) 0.7 K/uL (1.0-4.8); LYMPHOCYTES % (AUTO) 7.2 % (21.0-51.0); MEAN CORPUSCULAR HEMOGLOBIN 32.5 pg (27.0-33.0); MEAN CORPUSCULAR HGB CONC 34.3 g/dL (32.0-36.0); MEAN CORPUSCULAR VOLUME 94.6 fL (79-99); MONOCYTES # (AUTO) 0.4 K/uL (0.1-1.0); MONOCYTES % (AUTO) 4.1 % (3.0-13.0); NEUTROPHILS # (AUTO) 8.8 K/uL (1.8-7.7); NEUTROPHILS % (AUTO) 88.1 % (40.0-77.0); PLATELET COUNT (AUTO) 184 K/uL (130-400); RED BLOOD CELL COUNT(AUTO) 3.91 MIL/uL (4.50-6.20); RED CELL DISTRIBUTION WIDTH 13.3 % (11.0-15.5)
[2025-01-14 05:48] LABS: ALBUMIN 1.9 g/dL (3.5-5.0); CREATININE 1.2 mg/dL (0.5-1.3); POTASSIUM 4.8 mmol/L (3.5-5.1)
[2025-01-14] MEDS: INSULIN GLARgine 100 UNITS/ML 10 ML VIAL SQ SCH (09:22)
[2025-01-14] MEDS: INSULIN humuLIN R 100 UNIT/ML 3ML SQ SCH (09:23)
[2025-01-14] MEDS ORDERED: COMPOUND IV MISC 1 EACH IVSOLN MISC PRN (09:30)
--- NOTE | 2025-01-14 11:12 | PN ---
[facility] PROGRESS NOTE Date Patient Seen: Jan 14, 2025 Time of Visit: 11:02 Supervising Physician: [ ] Dr. 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 Uncontrolled Diabetes mellitius type2, POA HgA1C 8.5 NTEMI Type II WI POA PolySubstance abuse, POA, (cocaine/Marijuana) Alcohol dependence, POA Tobacco dependence, POA Acute cholecystitis on HIDA scan 01/07/25 POA Hepatomegaly with hepato steatosis MELD score on admission of 31 Morbid obesity Noncompliance behavior PLAN SUMMARY: Supplemental oxygen as needed Wean off as tolerated Duo nebs as needed Continue BiPAP nightly and p.r.n. IS while awake Continue cefazolin Continue doxycycline Continue fluconazole Continue heparin drip INTERVAL HISTORY: 01/11/25- patient is awake alert and oriented x3. Post EGD and DRAKE found to have vegetation in the aortic valve and thrombus in the KARINA, and LVEF of 60- 65%.. Per Hematology started heparin gtt per protocol today. For now patient is hemodynamically stable afebrile heart rate in the 80s respiratory rate of 18 saturating 99% on room air. Patient has a urine output of 4.4 L last night and a balance of-2.2 L. He had 2 bowel movements this morning. Pt continues with ancef IV for MSSA endocarditis. He will need at least 6 weeks of IV abx. WBCs are 12.5 H&H is normal platelet count is 113 K. sodium 145 potassium of 4 carbon dioxide of 22 BUN 59 creatinine 1.8 and GFR of 47 glucose of 102 mg/dL. Patient is stable downgrade from ICU to PCCU. 01/12/25 Patient is a 44 year old gentleman who initially presented with endocarditis and thrombus in the KARINA, placed on Heparin drip by Machine Brusher since platelets count are better there is no report of fever, chills, nausea or vomiting, plan is to continue with CIWA protocol, monitor WBC, kidney function has improved, BS is stable patient remains on room air and antibiotic therapy as well antifungal medication since he is positive for werner in the esophagus, Midline has been inserted for antibiotic otherwise patient requires to be stable in order to evaluate if he will be candidate for surgery . 01/13/25 Patient is 44 year old male awake alert, well oriented who continues to be on antibiotic due to Endocarditis he has no fever, chills, no chest pain or SOB at this moment, has been follow by Dr. Quinn, Dr. Javier and Dr. Garcia offer no new issues he might need CV surgery , we will follow up closely. 01/14 - patient is seen lying in bed resting quietly currently on room air with no signs of acute distress. Patient continues to utilize BiPAP nightly and as needed. Patient continues on broad-spectrum antibiotics for endocarditis as well as Staphylococcus bacteremia. Patient had remains afebrile. Patient denies chest discomfort, chest pain or dyspnea at this time. No acute changes reported overnight. Patient was evaluated by Cardiovascular surgery and given his chronic folliculitis recommend treatment prior any further interventions. Patient had a CT scan of the chest which shows no evidence of pulmonary nodule or effusion seen. Patient was started on heparin drip secondary to the left atrial appendage thrombus. We will continue to follow up with you. REVIEW OF SYSTEMS: 12 point ROS reviewed with patient. Pertinent positives mentioned above. Otherwise negative. PHYSICAL EXAM: GENERAL: alert, weak, awake oriented x 3 HEENT: EOMI, Sclera non icteric, moist mucosa NECK: Supple, no JVD, trachea midline LUNGS: Clear breath sounds bilaterally. No wheezes HEART: Regular rate and rhythm. Normal S1 and S2, without murmurs ABD: Abdomen soft, nontender. Bowel sounds present EXT: No clubbing cyanosis or edema NEURO: Alert and oriented to person, follows commands Vital Signs (last 8hr) Date Time Temp Pulse Resp B/P (MAP) Pulse Ox O2 Delivery O2 Flow Rate FiO2 01/14/25 08:00 98.6 67 19 142/95 97 Room Air 01/14/25 06:14 64 18 01/14/25 03:19 97.5 81 18 131/81 97 BIPAP LABS: Hematology Labs: Test 2/15/25 04:16 Range/Units White Blood Count 10.0 4.8-10.8 K/uL Red Blood Count 3.91 L 4.50-6.20 MIL/uL Hemoglobin 12.7 L 14.0-18.0 g/dL Hematocrit 37.0 L 42-54 % Mean Corpuscular Volume 94.6 79-99 fL Mean Corpuscular Hemoglobin 32.5 27.0-33.0 pg Mean Corpuscular Hemoglobin Concent 34.3 32.0-36.0 g/dL Red Cell Distribution Width 13.3 11.0-15.5 % Platelet Count 184 130-400 K/uL Mean Platelet Volume 10.6 H 7.5-10.5 fL Immature Granulocyte % (Auto) 0.5 0-1 % Neutrophils (%) (Auto) 88.1 H 40.0-77.0 % Lymphocytes (%) (Auto) 7.2 L 21.0-51.0 % Monocytes (%) (Auto) 4.1 3.0-13.0 % Eosinophils (%) (Auto) 0.0 0.0-8.0 % Basophils (%) (Auto) 0.1 0.0-5.0 % Neutrophils # (Auto) 8.8 H 1.8-7.7 K/uL Lymphocytes # (Auto) 0.7 L 1.0-4.8 K/uL Monocytes # (Auto) 0.4 0.1-1.0 K/uL Eosinophils # (Auto) 0.00 0.00-0.70 K/uL Basophils # (Auto) 0.01 0.00-0.20 K/uL Absolute Immature Granulocyte (auto 0.05 0-1 K/uL Nucleated Red Blood Cells 0.0 0.0-0.19 % Chemistry Labs: Test 01/14/25 07:43 01/14/25 05:28 01/13/25 03:28 01/12/25 16:05 Range/Units Whole Blood Glucose 157 H 70-110 MG/DL Sodium Level 139 136-145 mmol/L Potassium Level 4.8 3.5-5.1 mmol/L Chloride Level 110 101-111 mmol/L Carbon Dioxide Level 19 L 21-32 mmol/L Blood Urea Nitrogen 40 H 7-18 mg/dL Creatinine 1.2 0.5-1.3 mg/dL Glomerular Filtration Rate Calc 76 >90 mL/min Random Glucose 166 H 70-105 mg/dL Total Calcium 7.4 L 8.5-10.1 mg/dL Magnesium Level 2.00 1.80-2.40 mg/dL Total Bilirubin 1.0 0.2-1.0 mg/dL Aspartate Amino Transf (AST/SGOT) 34 10-37 U/L Alanine Aminotransferase (ALT/SGPT) 17 12-78 U/L Alkaline Phosphatase 96 50-136 U/L Total Protein 6.0 6.0-8.3 g/dL Albumin 1.9 L 3.5-5.0 g/dL Troponin I High Sensitivity 8 4-75 ng/L Bedside Glucose Comment Notified Nurse Coagulation Labs: Test 01/14/25 00:21 Range/Units Activated Partial Thromboplast Time 67.2 H 26.3-35.5 [facility]NOST[facility] / RADIOLOGY RESULTS: [ ] PLAN Follow up CV recommendations Continues with antibiotic and antifungal treatment follow [employer] teacher recommendations follow up with director of institutional sales for further recommendations [facility] protocol NEURO: Minimize central acting medications as possible. Maintain fall precautions, adequate lighting during the day PULMONARY: Supplemental 02 as needed. Maintain aspiration precautions at all times CARDIOVASCULAR: Follow hemodynamics. Vital signs per facility protocol GI & NUTRITION: Continue with nutritional support. Continue stool softeners and laxatives as needed. KIDNEYS & ELECTROLYTES: Strict monitoring of intake, output and overall fluid balance. Avoid nephrotoxic medications to the extent possible. Medications to be dosed according to renal function. Monitor electrolytes and replace as needed ENDOCRINE: Maintain blood glucose between 100-180 at all times. Hypoglycemia protocol in place INFECTIOUS DISEASE: Trend temperature, WBC and procalcitonin level Follow cultures, deescalate antibiotics as soon as possible. Panculture if new onset fever ONCOLOGY/HEMATOLOGY/COAGULATION: Monitor for s/s of bleeding Monitor hemoglobin, coagulation studies as needed SKIN: Pressure ulcer prevention per facility protocol Specialty mattress ORTHO/REHAB: Continue PT/OT Prophylaxis: Continue GI and DVT prophylaxis Code Status: Full Resuscitation Dispo: As per attending Total time spent greater than 30 minutes ATTESTATION BY PHYSICIAN The patient has been seen and evaluated, the case has been discussed with the RIB PULLER, I agree with the clinical findings and plan of care. Moy Zamarripa MD,LEO N RIB PULLER Jan 14, 2025 11:12
--- NOTE | 2025-01-14 11:52 | PN ---
[facility] PROGRESS NOTE Date of Service: Jan 14, 2025 Time of Service: 11:51 SUBJECTIVE: [ ] The patient has been seen and examined at bedside, no acute events overnight, the patient is comfortable, cooperating well, alert oriented x3, he is on a CIWA protocol, not combative. BP 123/70, rest of vital signs unremarkable. Patient received transfusion of 1 unit of platelet, platelet count improved to 27, per bobbin cleaner hand, likely due to splenomegaly. Echocardiogram reviewed, hypodense echogenic mobile vegetation to right coronary cusp leaflet, per cardiology once platelet count is greater than 50 1000 we will proceed with a a DRAKE. The pa tient also with a elevated blood sugar, continue insulin sliding scale, add insulin glargine 20 units subcutaneously at bedtime. Continue the patient on broad-spectrum IV antibiotics, continue to trend WBC in a.m.. 01/07 patient is seen and examined at bedside, case discussed with the RN, patient upgraded last night to the ICU to start insulin drip as blood glucose per sistently greater than 400. Patient started on dexamethasone IV by bobbin cleaner hand do to ITP. Platelet count slightly better today at 41. Upon my initial encounter with the patient admitted that he drinks more than 18 beers per day. He was started on CIWA protocol, however has remained hemodynamically stable, comfortable in bed, no signs of withdrawal, cooperating fine. Not agitated, not combative. Toxicology screen positive for cocaine. Sodium level slowly improvi ng, today 132. Serology positive for influenza type A. The patient with significant proteinuria consistent with diabetic nephropathy, creatinine slowly trending down, no need for renal replacement therapy per pen rider. Patient with blood culture positive for Staphylococcus aureus, with urine culture positive for Klebsiella pneumoniae. We will add vancomycin IV pharmacy to dose. We will request Infectious Disease consultation. Echocardiogram reviewed, hypodense echogenic mobile vegetation to right coronary cusp leaflet, per cardiology once platelet count is greater than 50 1000 we will proceed with a a DRAKE. CT abdomen with gallstones in the gallbladder. HIDA scan pending 01/08 patient seen at bedside, no acute events overnight. He continues on insulin drip with an anion gap of 14, we will continue until the gap is closed. P latelets 54, we will follow up with Cardiology on optimal timing for DRAKE. Continue with IV antibiotics, further care per critical Care. 2/10 patient seen at bedside, no acute events overnight. Anion gap is still open at 14, we will continue IV insulin. Platelets improved from 54 up to 71, CO2 decreased from 17 down to 15. Cardiology planning on DRAKE today, we will follow up postprocedure. Repeat blood cultures are positive for Gram-positive organisms which further supports underlying endocarditis. Continue with IV antibiotics, appreciate Infectious Disease recommendations. He has been afebrile, hemodynamically stable saturating well on room air. WBC increased from 12.8 up to 13.6, BUN decreased from 93 down to 90, creatinine decreased from 2.5 down to 2.3, remainder of his labs are relatively unremarkable. 01/10 Pt seen at bedside, no acute events overnight. Pt with anion gap of 14, CO2 still low at 16. Repeat lactic acid was ordered, elevated at 4.8, will bolus patient and continue with IV fluids. DRAKE was rescheduled to today, will follow up with results.WBC improved from 13.6 down to 11.7, Hgb decreased from 15.1 down to 12.4, platelets decreased from 71 down to 66, this substantial decrease in all cell lines suggests hemodilution, creatinine decreased from 2.2 down to 1.4, also likely falsely depressed. 01/11 Pt seen at bedside, no acute events overnight. Pending EGD to assess for esophageal varices and DRAKE today, will follow up post procedure. Yesterday repeat lactic acid was elevated at 4.8, the patient was bolused and it improved down to 1.3. He has been afebrile, hemodynamically stable, saturating well on room air. WBC increased from 11.7 up to 12.5, platelets improved from 66 up to 113, creatinine increased from 1.6 up to 1.8, CO2 improved from 17 up to 22 after patient was started on bicarb. Third set of blood cultures growing gram positive organisms 01/12 patient is seen and examined at bedside, case discussed with the RN, no acute events overnight, remains on broad-spectrum IV antibiotics, alert oriented x3, following commands. Patient underwent DRAKE 01/11, tolerated well, LVEF 60- 65%, no left ventricle thrombus noted. Right ventricle is severely dilated. Left atrial appendage clot present. No mass or thrombus in the left atrium. No mass or thrombus in the right atrium. Aortic valve is trileaflet, opens well, non coronary cusp leaflet has vegetation that measures 1.8 x 1.1 cm. No mitral valve vegetation, no tricuspid valve vegetation, no pulmonic valve vegetation. Finding discussed with the patient, all questions answered. 01/13 patient is seen and examined at bedside, case discussed with the RN, no acute events overnight, during my visit the patient comfortably in bed, hemodynamically stable, alert oriented x3, getting IV antibiotics, denies chest pain, no shortness a breath, no nausea, no vomiting. 01/14 patient is seen and examined at bedside, downgraded to the medical floor, case discussed with the RN, patient hemodynamically stable, alert oriented x3, on heparin drip, no chest pain, no shortness a breath, no nausea, no vomiting. REVIEW OF SYSTEMS 12 point review of systems negative unless noted in HPI PHYSICAL EXAM GENERAL APPEARANCE: The patient is awake, alert, and oriented, in no acute cardiopulmonary distress. NEUROLOGICAL: Cranial nerves II-XII grossly intact. Motor is 5/5 in bilateral upper and lower extremities proximal to distal. No sensory deficits. HEENT: Face is symmetric. Pupils are equal and reactive. Extraocular movements are intact. NECK: Supple. No JVD. No thyromegaly. No submental, submandibular, pre- /postauricular, occipital or supraclavicular lymphadenopathy. CHEST: Normal chest expansion. No Telemetry. LUNGS: Absence of any rales, rhonchi or any wheezing. CARDIOVASCULAR: Regular. S1 and S2 normal. No appreciable rubs, murmurs or gallops. ABDOMEN: Soft, nontender, and nondistended. There is no rebound, voluntary guarding, or rigidity. : Deferred. No Ortega. EXTREMITIES: Non-edematous and not cyanotic. No clubbing. Good capillary refill. SKIN: No skin breakdown. Vital Signs (last 8hr) Date Time Temp Pulse Resp B/P (MAP) Pulse Ox O2 Delivery O2 Flow Rate FiO2 01/14/25 08:00 98.6 67 19 142/95 97 Room Air 01/14/25 06:14 64 18 LABS: Laboratory: Test 01/14/25 11:39 01/14/25 05:28 01/14/25 04:16 01/14/25 00:21 Range/Units Whole Blood Glucose 124 H 70-110 MG/DL Sodium Level 139 136-145 mmol/L Potassium Level 4.8 3.5-5.1 mmol/L Chloride Level 110 101-111 mmol/L Carbon Dioxide Level 19 L 21-32 mmol/L Blood Urea Nitrogen 40 H 7-18 mg/dL Creatinine 1.2 0.5-1.3 mg/dL Glomerular Filtration Rate Calc 76 >90 mL/min Random Glucose 166 H 70-105 mg/dL Total Calcium 7.4 L 8.5-10.1 mg/dL Magnesium Level 2.00 1.80-2.40 mg/dL Total Bilirubin 1.0 0.2-1.0 mg/dL Aspartate Amino Transf (AST/SGOT) 34 10-37 U/L Alanine Aminotransferase (ALT/SGPT) 17 12-78 U/L Alkaline Phosphatase 96 50-136 U/L Total Protein 6.0 6.0-8.3 g/dL Albumin 1.9 L 3.5-5.0 g/dL White Blood Count 10.0 4.8-10.8 K/uL Red Blood Count 3.91 L 4.50-6.20 MIL/uL Hemoglobin 12.7 L 14.0-18.0 g/dL Hematocrit 37.0 L 42-54 % Mean Corpuscular Volume 94.6 79-99 fL Mean Corpuscular Hemoglobin 32.5 27.0-33.0 pg Mean Corpuscular Hemoglobin Concent 34.3 32.0-36.0 g/dL Red Cell Distribution Width 13.3 11.0-15.5 % Platelet Count 184 130-400 K/uL Mean Platelet Volume 10.6 H 7.5-10.5 fL Immature Granulocyte % (Auto) 0.5 0-1 % Neutrophils (%) (Auto) 88.1 H 40.0-77.0 % Lymphocytes (%) (Auto) 7.2 L 21.0-51.0 % Monocytes (%) (Auto) 4.1 3.0-13.0 % Eosinophils (%) (Auto) 0.0 0.0-8.0 % Basophils (%) (Auto) 0.1 0.0-5.0 % Neutrophils # (Auto) 8.8 H 1.8-7.7 K/uL Lymphocytes # (Auto) 0.7 L 1.0-4.8 K/uL Monocytes # (Auto) 0.4 0.1-1.0 K/uL Eosinophils # (Auto) 0.00 0.00-0.70 K/uL Basophils # (Auto) 0.01 0.00-0.20 K/uL Absolute Immature Granulocyte (auto 0.05 0-1 K/uL Nucleated Red Blood Cells 0.0 0.0-0.19 % Activated Partial Thromboplast Time 67.2 H 26.3-35.5 SEC Test 01/13/25 03:28 01/12/25 16:05 Range/Units Troponin I High Sensitivity 8 4-75 ng/L Bedside Glucose Comment Notified Nurse Current Medications Medications (Trade) Dose Ordered Sig/Asya Route PRN Reason Start Time Stop Time Status Last Admin Dose Admin Acetaminophen (TYLenol 325MG TAB) 650 mg Q6H PRN PO TEMPERATURE GREATER THAN 101.5 01/05/25 02:30 02/04/25 02:29 01/08/25 04:21 650 MG Aspirin (Aspirin 81mg Chew Tab) 81 mg DAILY PO 01/05/25 09:00 01/05/25 09:53 DC Benzocaine (Cepacol Sore Throat Lozenge) 1 each Q4H PRN MM SORE THROAT 01/05/25 02:30 02/04/25 02:29 Calcium Gluconate 1 gm/Sodium Chloride 100 ml @ 0 mls/hr AD PRN IV Serum Calcium Correction 01/08/25 02:30 02/07/25 02:29 01/08/25 23:32 90 MLS/HR Cefazolin Sodium (Ancef) 2 gm Q12H IVPB 01/07/25 13:30 01/24/25 21:00 01/14/25 01:02 2 GM Chlordiazepoxide HCl (LIBrium 25 MG CAP) 25 mg Q8H PO 01/05/25 02:30 01/11/25 11:39 DC 01/10/25 22:23 25 MG Chlordiazepoxide HCl (LIBrium 25 MG CAP) 25 mg Q8H PRN PO WITHDRAWAL 01/11/25 12:00 01/12/25 02:29 DC Dexamethasone Sodium Phosphate 20 mg/Sodium Chloride 52 ml @ 100 mls/hr DAILY IV 01/09/25 09:00 02/08/25 08:59 01/14/25 10:31 100 MLS/HR Dexamethasone Sodium Phosphate 40 mg/Sodium Chloride 50 ml @ 100 mls/hr DAILY IV 01/06/25 14:00 01/08/25 12:16 DC 01/08/25 09:34 100 MLS/HR Dextrose (D50w) 50 ml AD PRN IV HYPOGLYCEMIA PROTOCOL 01/05/25 10:00 02/04/25 09:59 Doxycycline Hyclate 250 ml @ 125 mls/hr Q12H IV 01/05/25 10:00 01/06/25 21:05 DC 01/06/25 09:30 125 MLS/HR Doxycycline Hyclate 250 ml @ 125 mls/hr Q12H IV 01/06/25 21:30 01/16/25 21:29 01/13/25 21:10 125 MLS/HR Fluconazole (DiFLUCan 100 mg TAB) 200 mg DAILY PO 01/12/25 09:00 02/11/25 08:59 01/14/25 09:16 200 MG Folic Acid (FOLic ACID 1 MG TABLET) 1 mg DAILY PO 01/07/25 10:30 02/06/25 10:29 01/14/25 09:16 1 MG Furosemide (LASix 20MG VIAL) 20 mg Q12H IV 01/07/25 16:00 01/11/25 00:56 DC 01/10/25 19:40 20 MG Glucagon (Glucagon 1mg Kit) 1 mg AD PRN IM HYPOGLYCEMIA PROTOCOL 01/05/25 10:00 02/04/25 09:59 Heparin Sodium/ Dextrose 250 ml @ 0 mls/hr PROTOCOL IV 01/11/25 14:30 02/10/25 14:29 01/13/25 11:52 16.29 MLS/HR Hydralazine HCl (APRESOLine 20MG INJ) 5 mg Q6H PRN IV For:SBP above 160;DBP above 90 01/05/25 14:30 02/04/25 14:29 01/10/25 22:24 5 MG Hydralazine HCl (APRESOLine 20MG INJ) 10 mg Q6H PRN IV For:SBP above 160;DBP above 90 01/05/25 02:30 01/05/25 09:53 DC Insulin Glargine (LANtus 100 UNITS/ML 10 ML VIAL) 15 units Q12H SQ 01/07/25 21:30 01/09/25 23:18 DC 01/09/25 13:10 15 UNITS Insulin Glargine (LANtus 100 UNITS/ML 10 ML VIAL) 20 units DAILY SQ 01/14/25 09:00 02/13/25 08:59 01/14/25 09:22 20 UNITS Insulin Glargine (LANtus 100 UNITS/ML 10 ML VIAL) 20 units HS SQ 01/06/25 21:00 01/06/25 21:05 DC Insulin Glargine (LANtus 100 UNITS/ML 10 ML VIAL) 20 units HS SQ 01/06/25 21:30 01/07/25 10:24 DC 01/06/25 21:33 20 UNITS Insulin Glargine (LANtus 100 UNITS/ML 10 ML VIAL) 20 units Q12H SQ 01/10/25 09:30 01/10/25 12:58 DC Insulin Glargine (LANtus 100 UNITS/ML 10 ML VIAL) 25 units Q12H SQ 01/10/25 21:30 01/11/25 00:50 DC 01/10/25 22:19 25 UNITS Insulin Glargine (LANtus 100 UNITS/ML 10 ML VIAL) 30 units DAILY SQ 01/12/25 09:00 01/14/25 07:03 DC 01/12/25 11:25 30 UNITS Insulin Glargine (LANtus 100 UNITS/ML 10 ML VIAL) 30 units Q12H SQ 01/11/25 09:30 01/11/25 20:13 DC 01/11/25 10:50 30 UNITS Insulin Human Regular (humuLIN R 100 UNIT/ML 3ML) 5 unit TIDAC SQ 01/14/25 07:30 02/13/25 07:29 01/14/25 09:23 5 UNIT Insulin Human Regular (humuLIN R 100 UNIT/ML 3ML) 8 unit TIDAC SQ 01/11/25 07:30 01/14/25 07:03 DC 01/13/25 19:47 8 UNIT Insulin Human Regular (humuLIN R 100 UNIT/ML 3ML) INSULIN SLIDING SCAL... ACHS SQ 01/05/25 07:30 01/05/25 09:57 DC 01/05/25 07:59 16 UNIT Insulin Human Regular (humuLIN R 100 UNIT/ML 3ML) INSULIN SLIDING SCAL... ACHS SQ 01/05/25 11:30 01/06/25 16:43 DC 01/06/25 11:50 8 UNIT Insulin Human Regular (humuLIN R 100 UNIT/ML 3ML) INSULIN SLIDING SCAL... ACHS SQ 01/06/25 17:00 01/07/25 13:32 DC 01/06/25 17:17 16 UNIT Insulin Human Regular (humuLIN R 100 UNIT/ML 3ML) INSULIN SLIDING SCAL... Q4H SQ 01/11/25 02:00 01/11/25 23:59 DC 01/11/25 20:49 6 UNIT Insulin Human Regular (humuLIN R 100 UNIT/ML 3ML) INSULIN SLIDING SCAL... Q4H SQ 01/11/25 23:59 02/10/25 23:58 01/13/25 19:47 6 UNIT Insulin Human Regular (humuLIN R 100 UNIT/ML 3ML) INSULIN SLIDING SCAL... Q6H6 SQ 01/10/25 18:00 01/11/25 00:50 DC 01/11/25 00:45 10 UNIT Insulin Human Regular 100 unit/ Sodium Chloride 100 ml @ 0 mls/hr AD PRN IV HYPERGLYCEMIA PROTOCOL 01/06/25 19:30 01/10/25 06:00 DC 01/09/25 19:10 16 MLS/HR Lactated Ringer's 1,000 ml @ 100 mls/hr Q10H IV 01/05/25 02:30 01/05/25 09:51 DC 01/05/25 02:30 100 MLS/HR Lactated Ringer's 1,000 ml @ 125 mls/hr Q8H IV 01/10/25 01:30 01/10/25 19:40 DC 01/10/25 13:07 125 MLS/HR Lactobacillus Rhamnosus ([facility]) 1 each DAILY PO 01/12/25 09:00 02/11/25 08:59 01/14/25 09:17 1 EACH Lorazepam (AtiVAN) 1 mg Q4H PRN IVP ALCOHOL WITHDRAWAL PROTOCOL 01/05/25 02:30 01/12/25 02:29 DC Magnesium Sulfate 50 ml @ 0 mls/hr PROTOCOL PRN IV h 01/05/25 02:30 02/04/25 02:29 01/13/25 04:13 25 MLS/HR Morphine Sulfate (morPHINE 2MG SYG) 2 mg Q4H PRN IVP SEVERE PAIN (7-10) 01/05/25 02:30 01/12/25 02:29 DC Multivitamins Therapeutic (Multivitamin Tablet) 1 tab DAILY PO 01/07/25 10:30 02/06/25 10:29 01/14/25 09:15 1 TAB Nicotine (Nicoderm) 21 mg DAILY TD 01/05/25 09:00 02/04/25 08:59 01/14/25 09:20 21 MG Nitroglycerin (Nitrostat) 0.4 mg AD PRN SL CHEST PAIN 01/05/25 02:30 02/04/25 02:29 Ondansetron HCl (zoFRAN 4MG INJ) 4 mg Q6H PRN IV NAUSEA/VOMITING 01/05/25 02:30 02/04/25 02:29 Pantoprazole Sodium (PROTonix 40MG TAB) 40 mg DAILY PO 01/05/25 09:00 02/04/25 08:59 01/14/25 09:16 40 MG Pharmacy Profile Note (Pharmacy Communication) 1 each PROTOCOL PRN MISC ETOH Withdrawal Score changes 01/05/25 02:30 01/12/25 02:29 DC Piperacillin Sod/ Tazobactam Sod (Zosyn 3.375gm+NS 50ml) 3.375 gm Q12H IV 01/05/25 02:30 01/07/25 13:24 DC 01/07/25 02:45 3.375 GM Potassium Phosphate 250 ml @ 42 mls/hr PROTOCOL PRN IV PROTOCOL 01/05/25 10:00 02/04/25 09:59 Potassium Chloride 100 ml @ 100 mls/hr AD PRN IV POTASSIUM PROTOCOL 01/05/25 02:30 01/07/25 10:12 DC Potassium Chloride 100 ml @ 100 mls/hr AD PRN IV POTASSIUM PROTOCOL 01/07/25 10:30 02/06/25 10:29 01/09/25 06:26 100 MLS/HR Potassium Chloride (K-Dur 10meq Sr Tab) 10 meq AD PRN PO POTASSIUM PROTOCOL 01/06/25 09:30 02/04/25 02:29 01/08/25 23:35 10 MEQ Potassium Chloride (K-Dur/Klor-Con 20meq) 10 meq AD PRN PO POTASSIUM PROTOCOL 01/05/25 02:30 01/06/25 09:12 DC 01/05/25 22:15 10 MEQ Potassium Chloride (K-Dur/Klor-Con 20meq) 10 meq AD PRN PO POTASSIUM PROTOCOL 01/07/25 10:30 01/07/25 10:12 DC Potassium Chloride (KCl 10% Elixir 20meq/15ml) 10 meq AD PRN PO POTASSIUM PROTOCOL 01/05/25 02:30 01/07/25 10:12 DC 01/06/25 17:16 10 MEQ Potassium Chloride (KCl 10% Elixir 20meq/15ml) 10 meq AD PRN PO POTASSIUM PROTOCOL 01/07/25 10:30 02/06/25 10:29 01/08/25 15:28 10 MEQ Sodium Bicarbonate (Sodium Bicarbonate) 1,300 mg BID PO 01/11/25 09:00 02/10/25 08:59 01/14/25 09:15 1,300 MG Sodium Chloride 1,000 ml @ 50 mls/hr Q20H IV 01/05/25 10:00 01/10/25 01:33 DC 01/09/25 05:56 50 MLS/HR Sodium Chloride 1,000 ml @ 75 mls/hr [id number] IV 01/11/25 01:00 01/11/25 13:45 DC 01/11/25 01:00 75 MLS/HR Triamcinolone Acetonide (Kenalog/ Aristocort) 1 APPLY TP BID BID TP 01/07/25 11:00 02/06/25 10:59 01/14/25 09:14 1 APPL Vancomycin HCl (Vancomycin Protocol) 1 each AD IV 01/07/25 12:30 01/07/25 12:40 DC DIAGNOSTICS / RADIOLOGY: [ ] ASSESSMENT: Severe sepsis, POA Gram-positive bacteremia secondary to Staphylococcus aureus, POA Hypodense echogenic mobile vegetation to right coronary cusp leaflet on echocardiogram 01/05/2025 Left atrial appendage clot present. on DRAKE 01/11 non coronary cusp leaflet has vegetation that measures 1.8 x 1.1 cm. on DRAKE 01/11 Urinary tract infection, secondary to Klebsiella pneumoniae, POA Strep pharyngitis, POA ITP, POA Leukocytosis, POA Hyperlactatemia, POA Acute kidney injury, POA Hypokalemia, POA Hyponatremia, POA Hypomagnesemia, POA POA New onset Uncontrolled Diabetes mellitius type2, POA Elevated troponin, POA Cocaine abuse, POA Alcohol abuse, POA Tobacco dependence, POA Significant proteinuria, POA Diabetic nephropathy, POA Gallstones, POA Fidelina esophagitis on EGD 01/11 PLAN: -patient remains admitted to the medical floor. -continue the patient on broad-spectrum IV antibiotics -results of DRAKE reviewed, Left atrial appendage clot present. on DRAKE 01/11, aortic valve is trileaflet, opens well. Non coronary cusp leaflet has vegetation that measures 1.8 x 1.1 cm. on DRAKE 01/11 -continue heparin drip. Patient already evaluated by Cardiothoracic surgeon, continue medical management, we will re-evaluate possibility of aortic valve replacement in the near future. 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 Continue to follow Hematology input and recommendation -renal function slightly improved today, patient evaluated by pen rider, the patient with significant proteinuria on UA consistent with diabetic nephropathy. No acute need for any form of renal replacement therapy. -blood culture positive for Staphylococcus aureus. Urine culture positive for Klebsiella pneumoniae. Continue broad-spectrum IV antibiotics, continue to fol low ID input recommendation. -case discussed with case management, patient to complete course of IV antibiotics likely during this hospitalization as the patient is uninsured. Disposition: Pending improvement in clinical condition. We will downgraded to the medical floor. All questions answered time spent: > 35 min MAHOGANY CARBAJAL MD Jan 14, 2025 11:52
--- NOTE | 2025-01-14 13:14 | PN ---
INFECTIOUS DISEASE PROGRESS NOTE Date of Service: Jan 14, 2025 SUBJECTIVE: This is a 44-year-old male patient who was admitted for chief complaint of weakness and status post fall at home. A Urine culture collected on admission came back positive for Klebsiella pneumoniae and the blood cultures results came back positive for Methicillin sensitive Staphylococcus aureus 2 of 2 sets and the reason for this consult. A 2D echo done on admission showed Aortic valve endocarditis and DRAKE done on 01/11/2025 with findings of aortic valve vegetation and Left atrial appendage clot. Patient was seen and examined at bedside in room 412. Patient is awake, alert and oriented x3. The repeat blood cultures came back positive for methicillin sensitive Staphylococcus aureus. Blood cultures were repeated yesterday, we will follow up on the results. Patient is status post DRAKE on 01/11/2025 with findings of aortic valve vegetation and left atrial appendage clot. Patient is currently on heparin drip. No dyspnea observe. Patient is saturating 9 95 to to 97% % on room air this morning. Patient is afebrile this morning, temperature is 98.6 and the WBC has trended down to 10.0. Continues on cefazolin, doxycycline IV and fluconazole. Will continue to follow patient's care. PHYSICAL EXAM EYES: Anicteric. Pupils equal and reactive. HENT: No oral thrush seen, moist Oral mucosa. NECK: Supple, no JVD or thyromegaly. LUNGS: Good air entry. No rales, no rhonchi. CARDIOVASCULAR: S1, S2 regular. No murmur heard. ABDOMEN: Obese but Soft. CENTRAL NERVOUS SYSTEM: Awake, alert, oriented x 3. SKIN: No rashes, no swelling. LYMPHATICS: No peripheral lymphadenopathy MUSCULOSKELETAL: No joint swelling, erythema or tenderness. Weakness. EXTREMITIES: No cyanosis or clubbing. Edematous. BACK: No deformity, no pressure ulcer. GENITOURINARY: No dysuria or hematuria. Vital Sign (Last 12 Hours) 01/14/25 01/14/25 01/14/25 01/14/25 01:29 03:19 06:14 08:00 Temp 97.5 98.6 Pulse 81 64 67 Resp 20 18 18 19 B/P (MAP) 131/81 142/95 Pulse Ox 97 97 O2 Delivery BIPAP Room Air FiO2 28 01/14/25 12:03 Temp 97.5 Pulse 63 Resp 19 B/P (MAP) 138/85 Pulse Ox 95 O2 Delivery Room Air Intake & Output (last 24hrs) 01/13/25 01/13/25 01/14/25 15:00 23:00 07:00 Intake Total 177.3 ml 165.2 ml Output Total 300 ml Balance 177.3 ml 165.2 ml -300 ml LABS: Laboratory: Test 01/14/25 11:39 01/14/25 05:28 01/14/25 04:16 01/14/25 00:21 Range/Units Whole Blood Glucose 124 H 70-110 MG/DL Sodium Level 139 136-145 mmol/L Potassium Level 4.8 3.5-5.1 mmol/L Chloride Level 110 101-111 mmol/L Carbon Dioxide Level 19 L 21-32 mmol/L Blood Urea Nitrogen 40 H 7-18 mg/dL Creatinine 1.2 0.5-1.3 mg/dL Glomerular Filtration Rate Calc 76 >90 mL/min Random Glucose 166 H 70-105 mg/dL Total Calcium 7.4 L 8.5-10.1 mg/dL Magnesium Level 2.00 1.80-2.40 mg/dL Total Bilirubin 1.0 0.2-1.0 mg/dL Aspartate Amino Transf (AST/SGOT) 34 10-37 U/L Alanine Aminotransferase (ALT/SGPT) 17 12-78 U/L Alkaline Phosphatase 96 50-136 U/L Total Protein 6.0 6.0-8.3 g/dL Albumin 1.9 L 3.5-5.0 g/dL White Blood Count 10.0 4.8-10.8 K/uL Red Blood Count 3.91 L 4.50-6.20 MIL/uL Hemoglobin 12.7 L 14.0-18.0 g/dL Hematocrit 37.0 L 42-54 % Mean Corpuscular Volume 94.6 79-99 fL Mean Corpuscular Hemoglobin 32.5 27.0-33.0 pg Mean Corpuscular Hemoglobin Concent 34.3 32.0-36.0 g/dL Red Cell Distribution Width 13.3 11.0-15.5 % Platelet Count 184 130-400 K/uL Mean Platelet Volume 10.6 H 7.5-10.5 fL Immature Granulocyte % (Auto) 0.5 0-1 % Neutrophils (%) (Auto) 88.1 H 40.0-77.0 % Lymphocytes (%) (Auto) 7.2 L 21.0-51.0 % Monocytes (%) (Auto) 4.1 3.0-13.0 % Eosinophils (%) (Auto) 0.0 0.0-8.0 % Basophils (%) (Auto) 0.1 0.0-5.0 % Neutrophils # (Auto) 8.8 H 1.8-7.7 K/uL Lymphocytes # (Auto) 0.7 L 1.0-4.8 K/uL Monocytes # (Auto) 0.4 0.1-1.0 K/uL Eosinophils # (Auto) 0.00 0.00-0.70 K/uL Basophils # (Auto) 0.01 0.00-0.20 K/uL Absolute Immature Granulocyte (auto 0.05 0-1 K/uL Nucleated Red Blood Cells 0.0 0.0-0.19 % Activated Partial Thromboplast Time 67.2 H 26.3-35.5 SEC Test 01/13/25 03:28 01/12/25 16:05 Range/Units Troponin I High Sensitivity 8 4-75 ng/L Bedside Glucose Comment Notified Nurse ASSESSMENT: Methicillin-susceptible Staphylococcus aureus bacteremia status post DRAKE with findings of aortic valve vegetation and Left atrial appendage clot. Aortic valve endocarditis and 2D echo. Urinary tract infection with Klebsiella pneumoniae. Chronic scalp folliculitis. Leukocytosis. Thrombocytopenia requiring platelet transfusion, resolving. Acute on chronic renal failure, resolving. Substance abuse, Cocaine and ETOH. Streptococcus viral infection. Uncontrolled diabetes mellitus. Debility. PLAN: Continue cefazolin IV. Continue doxycycline IV. Continue fluconazole. Currently on heparin drip. Avoid nephrotoxic medications. Continue GI prophylaxis. Shaper Operator following patient. Continue monitoring glucose levels. We will monitor electrolytes. This case was reviewed and discussed with my supervising physician and the above assessment and plan was formulated and agreed upon. ATTESTATION BY PHYSICIAN I have seen and examined the patient. I reviewed the documentation, medical d ecision making, and treatment plan as noted by the mid-level provider above. I agree with the findings and plan of care. JANUARY CARLSON MD, MIRTA L INTERIOR WALL [employer]ER Jan 14, 2025 13:14
--- NOTE | 2025-01-14 19:42 | PN ---
FOLLOWUP NOTE SUBJECTIVE: A 44-year-old male with a history of diabetes mellitus and hypertension, initially presented, found to have endocarditis. The patient remains on the broad spectrum IV antibiotics. He has had acute on chronic renal failure in the hospital. Creatinine has stabilized while in the hospital and the patient is being seen for all of the above. REVIEW OF SYSTEMS: GENERAL: The patient is feeling improved. HEENT: No change in vision. No change in hearing. CARDIOVASCULAR: No current chest pains or palpitations. PULMONARY: There is no shortness of breath. GASTROINTESTINAL: The patient is tolerating diet. MUSCULOSKELETAL: Complains of weakness. PHYSICAL EXAMINATION: VITAL SIGNS: Blood pressure 142/95, pulse 60s. GENERAL: He is a chronically ill male, older than appearing. HEENT: Head is atraumatic. Pupils equal, roving to light. Oropharynx is without exudate. Nares clear. NECK: There is no JVP. There is no thyromegaly, no mass. CARDIOVASCULAR: Regular. There is no S3, S4 gallop. LUNGS: Coarse with equal thoracic movement. ABDOMEN: Soft, nondistended, nontender. EXTREMITIES: Reveal no clubbing, no cyanosis. NEUROLOGIC: He is awake. He is alert. LABORATORY DATA: Sodium 139, potassium 4.8, BUN 40, creatinine is 1.2. Hemoglobin 12, hematocrit 37. IMPRESSION: * Acute on chronic renal failure. * Endocarditis. * Diabetes mellitus. * Hypertension. PLAN: The patient's creatinine continues to stabilize. The patient remains on the antibiotics. Repeat blood cultures are pending. The patient is being seen by case management for final disposition for the long-term IV antibiotics. We will follow closely. The patient and family at the bedside, multiple questions were answered. TID: [id number] RECEIPT: [id number]
[2025-01-15] VITALS (10 sets, daily range): BP systolic 133–144; BP diastolic 44–95; PULSE 60–76; RESP 17–18; TEMP 97.6–98.8; O2SAT 97–100
--- NOTE | 2025-01-15 12:22 | PN ---
INFECTIOUS DISEASE PROGRESS NOTE Date of Service: Jan 15, 2025 SUBJECTIVE: This is a 44-year-old male patient who was admitted for chief complaint of weakness and status post fall at home. A Urine culture collected on admission came back positive for Klebsiella pneumoniae and the blood cultures results came back positive for Methicillin sensitive Staphylococcus aureus 2 of 2 sets and the reason for this consult. A 2D echo done on admission showed Aortic valve endocarditis and DRAKE done on 01/11/2025 with findings of aortic valve vegetation and Left atrial appendage clot. Patient was seen and examined at bedside in room 412. Patient is awake, alert and oriented x3. Continues with several positive blood cultures with methicillin sensitive Staphylococcus aureus. Patient is status post DRAKE on 01/11/2025 with findings of aortic valve vegetation and left atrial appendage clot. Continues on heparin drip. Patient has remained afebrile, temperature is 98.8. Continues on cefazolin, doxycycline IV and fluconazole. No reports of nausea or vomiting. Will continue to follow patient's care. PHYSICAL EXAM EYES: Anicteric. Pupils equal and reactive. HENT: No oral thrush seen, moist Oral mucosa. NECK: Supple, no JVD or thyromegaly. LUNGS: Good air entry. No rales, no rhonchi. CARDIOVASCULAR: S1, S2 regular. No murmur heard. ABDOMEN: Obese but Soft. CENTRAL NERVOUS SYSTEM: Awake, alert, oriented x 3. SKIN: No rashes, no swelling. LYMPHATICS: No peripheral lymphadenopathy MUSCULOSKELETAL: No joint swelling, erythema or tenderness. Weakness. EXTREMITIES: No cyanosis or clubbing. Edematous. BACK: No deformity, no pressure ulcer. GENITOURINARY: No dysuria or hematuria. Vital Sign (Last 12 Hours) 01/15/25 01/15/25 01/15/25 01/15/25 03:06 03:31 06:51 07:30 Temp 97.5 97.5 98.8 Pulse 61 61 60 62 Resp 18 18 18 18 B/P (MAP) 142/89 142/89 134/78 Pulse Ox 98 98 100 O2 Delivery Room Air Room Air Room Air FiO2 21 01/15/25 11:50 Temp 98.6 Pulse 73 Resp 18 B/P (MAP) 143/95 Pulse Ox 100 O2 Delivery Room Air FiO2 21 Intake & Output (last 24hrs) 01/14/25 01/14/25 01/15/25 15:00 23:00 07:00 Intake Total 81.5 ml 114.1 ml Balance 81.5 ml 114.1 ml LABS: Laboratory: Test 01/15/25 11:20 01/15/25 00:54 01/14/25 05:28 01/14/25 04:16 Range/Units Whole Blood Glucose 106 70-110 MG/DL Activated Partial Thromboplast Time 88.1 H 26.3-35.5 SEC Sodium Level 139 136-145 mmol/L Potassium Level 4.8 3.5-5.1 mmol/L Chloride Level 110 101-111 mmol/L Carbon Dioxide Level 19 L 21-32 mmol/L Blood Urea Nitrogen 40 H 7-18 mg/dL Creatinine 1.2 0.5-1.3 mg/dL Glomerular Filtration Rate Calc 76 >90 mL/min Random Glucose 166 H 70-105 mg/dL Total Calcium 7.4 L 8.5-10.1 mg/dL Magnesium Level 2.00 1.80-2.40 mg/dL Total Bilirubin 1.0 0.2-1.0 mg/dL Aspartate Amino Transf (AST/SGOT) 34 10-37 U/L Alanine Aminotransferase (ALT/SGPT) 17 12-78 U/L Alkaline Phosphatase 96 50-136 U/L Total Protein 6.0 6.0-8.3 g/dL Albumin 1.9 L 3.5-5.0 g/dL White Blood Count 10.0 4.8-10.8 K/uL Red Blood Count 3.91 L 4.50-6.20 MIL/uL Hemoglobin 12.7 L 14.0-18.0 g/dL Hematocrit 37.0 L 42-54 % Mean Corpuscular Volume 94.6 79-99 fL Mean Corpuscular Hemoglobin 32.5 27.0-33.0 pg Mean Corpuscular Hemoglobin Concent 34.3 32.0-36.0 g/dL Red Cell Distribution Width 13.3 11.0-15.5 % Platelet Count 184 130-400 K/uL Mean Platelet Volume 10.6 H 7.5-10.5 fL Immature Granulocyte % (Auto) 0.5 0-1 % Neutrophils (%) (Auto) 88.1 H 40.0-77.0 % Lymphocytes (%) (Auto) 7.2 L 21.0-51.0 % Monocytes (%) (Auto) 4.1 3.0-13.0 % Eosinophils (%) (Auto) 0.0 0.0-8.0 % Basophils (%) (Auto) 0.1 0.0-5.0 % Neutrophils # (Auto) 8.8 H 1.8-7.7 K/uL Lymphocytes # (Auto) 0.7 L 1.0-4.8 K/uL Monocytes # (Auto) 0.4 0.1-1.0 K/uL Eosinophils # (Auto) 0.00 0.00-0.70 K/uL Basophils # (Auto) 0.01 0.00-0.20 K/uL Absolute Immature Granulocyte (auto 0.05 0-1 K/uL Nucleated Red Blood Cells 0.0 0.0-0.19 % ASSESSMENT: Methicillin-susceptible Staphylococcus aureus bacteremia status post DRAKE on 01/11/2025 with findings of aortic valve vegetation and Left atrial appendage clot. Aortic valve endocarditis on 2D echo. Urinary tract infection with Klebsiella pneumoniae. Chronic scalp folliculitis. Leukocytosis. Thrombocytopenia requiring platelet transfusion, resolving. Acute on chronic renal failure, resolving. Substance abuse, Cocaine and ETOH. Streptococcus viral infection. Uncontrolled diabetes mellitus. Debility. PLAN: Continue cefazolin IV. Continue doxycycline IV. Continue fluconazole. Continues on heparin drip. Avoid nephrotoxic medications. Continue GI prophylaxis. Research Archaeologist following patient. Continue monitoring glucose levels. We will monitor electrolytes. This case was reviewed and discussed with my supervising physician and the above assessment and plan was formulated and agreed upon. ATTESTATION BY PHYSICIAN I have seen and examined the patient. I reviewed the documentation, medical decision making, and treatment plan as noted by the mid-level provider above. I agree with the findings and plan of care. JANUARY CARLSON MD, [facility] Jan 15, 2025 12:22
--- NOTE | 2025-01-15 13:08 | PN ---
[facility] PROGRESS NOTE Date of Service: Jan 15, 2025 Time of Service: 13:05 SUBJECTIVE: [ ] The patient has been seen and examined at bedside, no acute events overnight, the patient is comfortable, cooperating well, alert oriented x3, he is on a CIWA protocol, not combative. BP 123/70, rest of vital signs unremarkable. Patient received transfusion of 1 unit of platelet, platelet count improved to 27, per lgsw, likely due to splenomegaly. Echocardiogram reviewed, hypodense echogenic mobile vegetation to right coronary cusp leaflet, per cardiology once platelet count is greater than 50 1000 we will proceed with a a DRAKE. The pa tient also with a elevated blood sugar, continue insulin sliding scale, add insulin glargine 20 units subcutaneously at bedtime. Continue the patient on broad-spectrum IV antibiotics, continue to trend WBC in a.m.. 01/07 patient is seen and examined at bedside, case discussed with the RN, patient upgraded last night to the ICU to start insulin drip as blood glucose per sistently greater than 400. Patient started on dexamethasone IV by lgsw do to ITP. Platelet count slightly better today at 41. Upon my initial encounter with the patient admitted that he drinks more than 18 beers per day. He was started on CIWA protocol, however has remained hemodynamically stable, comfortable in bed, no signs of withdrawal, cooperating fine. Not agitated, not combative. Toxicology screen positive for cocaine. Sodium level slowly improvi ng, today 132. Serology positive for influenza type A. The patient with significant proteinuria consistent with diabetic nephropathy, creatinine slowly trending down, no need for renal replacement therapy per electric crane operator. Patient with blood culture positive for Staphylococcus aureus, with urine culture positive for Klebsiella pneumoniae. We will add vancomycin IV pharmacy to dose. We will request Infectious Disease consultation. Echocardiogram reviewed, hypodense echogenic mobile vegetation to right coronary cusp leaflet, per cardiology once platelet count is greater than 50 1000 we will proceed with a a DRAKE. CT abdomen with gallstones in the gallbladder. HIDA scan pending 01/08 patient seen at bedside, no acute events overnight. He continues on insulin drip with an anion gap of 14, we will continue until the gap is closed. P latelets 54, we will follow up with Cardiology on optimal timing for DRAKE. Continue with IV antibiotics, further care per critical Care. 2/10 patient seen at bedside, no acute events overnight. Anion gap is still open at 14, we will continue IV insulin. Platelets improved from 54 up to 71, CO2 decreased from 17 down to 15. Cardiology planning on DRAKE today, we will follow up postprocedure. Repeat blood cultures are positive for Gram-positive organisms which further supports underlying endocarditis. Continue with IV antibiotics, appreciate Infectious Disease recommendations. He has been afebrile, hemodynamically stable saturating well on room air. WBC increased from 12.8 up to 13.6, BUN decreased from 93 down to 90, creatinine decreased from 2.5 down to 2.3, remainder of his labs are relatively unremarkable. 01/10 Pt seen at bedside, no acute events overnight. Pt with anion gap of 14, CO2 still low at 16. Repeat lactic acid was ordered, elevated at 4.8, will bolus patient and continue with IV fluids. DRAKE was rescheduled to today, will follow up with results.WBC improved from 13.6 down to 11.7, Hgb decreased from 15.1 down to 12.4, platelets decreased from 71 down to 66, this substantial decrease in all cell lines suggests hemodilution, creatinine decreased from 2.2 down to 1.4, also likely falsely depressed. 01/11 Pt seen at bedside, no acute events overnight. Pending EGD to assess for esophageal varices and DRAKE today, will follow up post procedure. Yesterday repeat lactic acid was elevated at 4.8, the patient was bolused and it improved down to 1.3. He has been afebrile, hemodynamically stable, saturating well on room air. WBC increased from 11.7 up to 12.5, platelets improved from 66 up to 113, creatinine increased from 1.6 up to 1.8, CO2 improved from 17 up to 22 after patient was started on bicarb. Third set of blood cultures growing gram positive organisms 01/12 patient is seen and examined at bedside, case discussed with the RN, no acute events overnight, remains on broad-spectrum IV antibiotics, alert oriented x3, following commands. Patient underwent DRAKE 01/11, tolerated well, LVEF 60- 65%, no left ventricle thrombus noted. Right ventricle is severely dilated. Left atrial appendage clot present. No mass or thrombus in the left atrium. No mass or thrombus in the right atrium. Aortic valve is trileaflet, opens well, non coronary cusp leaflet has vegetation that measures 1.8 x 1.1 cm. No mitral valve vegetation, no tricuspid valve vegetation, no pulmonic valve vegetation. Finding discussed with the patient, all questions answered. 01/13 patient is seen and examined at bedside, case discussed with the RN, no acute events overnight, during my visit the patient comfortably in bed, hemodynamically stable, alert oriented x3, getting IV antibiotics, denies chest pain, no shortness a breath, no nausea, no vomiting. 01/14 patient is seen and examined at bedside, downgraded to the medical floor, case discussed with the RN, patient hemodynamically stable, alert oriented x3, on heparin drip, no chest pain, no shortness a breath, no nausea, no vomiting. 01/15 patient is seen and examined bedside, case discussed with the RN, no acute events overnight. Patient with blood culture positive for Staphylococcus aureus, with urine culture positive for Klebsiella pneumoniae. Patient underwent DRAKE 01/11, tolerated well, LVEF 60-65%, no left ventricle thrombus noted. Right ventricle is severely dilated. Left atrial appendage clot present. No mass or thrombus in the left atrium. No mass or thrombus in the right atrium. Aortic valve is trileaflet, opens well, non coronary cusp leaflet has vegetation that measures 1.8 x 1.1 cm. No mitral valve vegetation, no tricuspid valve vegetation, no pulmonic valve vegetation. Continue heparin drip. Patient evaluated by Cardiothoracic surgeon. Medical management recommended for now. Re-evaluate possibility of aortic valve replacement in the near future. 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 Continue to follow Hematology input and recommendation Discharge plan discussed with case management, patient is uninsured, probably will have to remain admitted until completion of IV antibiotic course. REVIEW OF SYSTEMS 12 point review of systems negative unless noted in HPI PHYSICAL EXAM GENERAL APPEARANCE: The patient is awake, alert, and oriented, in no acute cardiopulmonary distress. NEUROLOGICAL: Cranial nerves II-XII grossly intact. Motor is 5/5 in bilateral upper and lower extremities proximal to distal. No sensory deficits. HEENT: Face is symmetric. Pupils are equal and reactive. Extraocular movements are intact. NECK: Supple. No JVD. No thyromegaly. No submental, submandibular, pre- /postauricular, occipital or supraclavicular lymphadenopathy. CHEST: Normal chest expansion. No Telemetry. LUNGS: Absence of any rales, rhonchi or any wheezing. CARDIOVASCULAR: Regular. S1 and S2 normal. No appreciable rubs, murmurs or gallops. ABDOMEN: Soft, nontender, and nondistended. There is no rebound, voluntary guarding, or rigidity. : Deferred. No Ortega. EXTREMITIES: Non-edematous and not cyanotic. No clubbing. Good capillary refill. SKIN: No skin breakdown. Vital Signs (last 8hr) Date Time Temp Pulse Resp B/P (MAP) Pulse Ox O2 Delivery O2 Flow Rate FiO2 01/15/25 11:50 98.6 73 18 143/95 100 Room Air 21 01/15/25 07:30 98.8 62 18 134/78 100 Room Air 21 01/15/25 06:51 60 18 LABS: Laboratory: Test 01/15/25 11:20 01/15/25 00:54 01/14/25 05:28 01/14/25 04:16 Range/Units Whole Blood Glucose 106 70-110 MG/DL Activated Partial Thromboplast Time 88.1 H 26.3-35.5 SEC Sodium Level 139 136-145 mmol/L Potassium Level 4.8 3.5-5.1 mmol/L Chloride Level 110 101-111 mmol/L Carbon Dioxide Level 19 L 21-32 mmol/L Blood Urea Nitrogen 40 H 7-18 mg/dL Creatinine 1.2 0.5-1.3 mg/dL Glomerular Filtration Rate Calc 76 >90 mL/min Random Glucose 166 H 70-105 mg/dL Total Calcium 7.4 L 8.5-10.1 mg/dL Magnesium Level 2.00 1.80-2.40 mg/dL Total Bilirubin 1.0 0.2-1.0 mg/dL Aspartate Amino Transf (AST/SGOT) 34 10-37 U/L Alanine Aminotransferase (ALT/SGPT) 17 12-78 U/L Alkaline Phosphatase 96 50-136 U/L Total Protein 6.0 6.0-8.3 g/dL Albumin 1.9 L 3.5-5.0 g/dL White Blood Count 10.0 4.8-10.8 K/uL Red Blood Count 3.91 L 4.50-6.20 MIL/uL Hemoglobin 12.7 L 14.0-18.0 g/dL Hematocrit 37.0 L 42-54 % Mean Corpuscular Volume 94.6 79-99 fL Mean Corpuscular Hemoglobin 32.5 27.0-33.0 pg Mean Corpuscular Hemoglobin Concent 34.3 32.0-36.0 g/dL Red Cell Distribution Width 13.3 11.0-15.5 % Platelet Count 184 130-400 K/uL Mean Platelet Volume 10.6 H 7.5-10.5 fL Immature Granulocyte % (Auto) 0.5 0-1 % Neutrophils (%) (Auto) 88.1 H 40.0-77.0 % Lymphocytes (%) (Auto) 7.2 L 21.0-51.0 % Monocytes (%) (Auto) 4.1 3.0-13.0 % Eosinophils (%) (Auto) 0.0 0.0-8.0 % Basophils (%) (Auto) 0.1 0.0-5.0 % Neutrophils # (Auto) 8.8 H 1.8-7.7 K/uL Lymphocytes # (Auto) 0.7 L 1.0-4.8 K/uL Monocytes # (Auto) 0.4 0.1-1.0 K/uL Eosinophils # (Auto) 0.00 0.00-0.70 K/uL Basophils # (Auto) 0.01 0.00-0.20 K/uL Absolute Immature Granulocyte (auto 0.05 0-1 K/uL Nucleated Red Blood Cells 0.0 0.0-0.19 % Current Medications Medications (Trade) Dose Ordered Sig/Asya Route PRN Reason Start Time Stop Time Status Last Admin Dose Admin Acetaminophen (TYLenol 325MG TAB) 650 mg Q6H PRN PO TEMPERATURE GREATER THAN 101.5 01/05/25 02:30 02/04/25 02:29 01/15/25 11:15 650 MG Aspirin (Aspirin 81mg Chew Tab) 81 mg DAILY PO 01/05/25 09:00 01/05/25 09:53 DC Benzocaine (Cepacol Sore Throat Lozenge) 1 each Q4H PRN MM SORE THROAT 01/05/25 02:30 02/04/25 02:29 Calcium Gluconate 1 gm/Sodium Chloride 100 ml @ 0 mls/hr AD PRN IV Serum Calcium Correction 01/08/25 02:30 02/07/25 02:29 01/08/25 23:32 90 MLS/HR Cefazolin Sodium (Ancef) 2 gm Q12H IVPB 01/07/25 13:30 01/24/25 21:00 01/15/25 01:01 2 GM Chlordiazepoxide HCl (LIBrium 25 MG CAP) 25 mg Q8H PO 01/05/25 02:30 01/11/25 11:39 DC 01/10/25 22:23 25 MG Chlordiazepoxide HCl (LIBrium 25 MG CAP) 25 mg Q8H PRN PO WITHDRAWAL 01/11/25 12:00 01/12/25 02:29 DC Dexamethasone Sodium Phosphate 20 mg/Sodium Chloride 52 ml @ 100 mls/hr DAILY IV 01/09/25 09:00 02/08/25 08:59 01/15/25 09:20 100 MLS/HR Dexamethasone Sodium Phosphate 40 mg/Sodium Chloride 50 ml @ 100 mls/hr DAILY IV 01/06/25 14:00 01/08/25 12:16 DC 01/08/25 09:34 100 MLS/HR Dextrose (D50w) 50 ml AD PRN IV HYPOGLYCEMIA PROTOCOL 01/05/25 10:00 02/04/25 09:59 Doxycycline Hyclate 250 ml @ 125 mls/hr Q12H IV 01/05/25 10:00 01/06/25 21:05 DC 01/06/25 09:30 125 MLS/HR Doxycycline Hyclate 250 ml @ 125 mls/hr Q12H IV 01/06/25 21:30 01/16/25 21:29 01/15/25 11:15 125 MLS/HR Fluconazole (DiFLUCan 100 mg TAB) 200 mg DAILY PO 01/12/25 09:00 02/11/25 08:59 01/15/25 09:23 200 MG Folic Acid (FOLic ACID 1 MG TABLET) 1 mg DAILY PO 01/07/25 10:30 02/06/25 10:29 01/15/25 09:21 1 MG Furosemide (LASix 20MG VIAL) 20 mg Q12H IV 01/07/25 16:00 01/11/25 00:56 DC 01/10/25 19:40 20 MG Glucagon (Glucagon 1mg Kit) 1 mg AD PRN IM HYPOGLYCEMIA PROTOCOL 01/05/25 10:00 02/04/25 09:59 Heparin Sodium/ Dextrose 250 ml @ 0 mls/hr PROTOCOL IV 01/11/25 14:30 02/10/25 14:29 01/15/25 07:54 16.2 MLS/HR Hydralazine HCl (APRESOLine 20MG INJ) 5 mg Q6H PRN IV For:SBP above 160;DBP above 90 01/05/25 14:30 02/04/25 14:29 01/10/25 22:24 5 MG Hydralazine HCl (APRESOLine 20MG INJ) 10 mg Q6H PRN IV For:SBP above 160;DBP above 90 01/05/25 02:30 01/05/25 09:53 DC Insulin Glargine (LANtus 100 UNITS/ML 10 ML VIAL) 15 units Q12H SQ 01/07/25 21:30 01/09/25 23:18 DC 01/09/25 13:10 15 UNITS Insulin Glargine (LANtus 100 UNITS/ML 10 ML VIAL) 20 units DAILY SQ 01/14/25 09:00 02/13/25 08:59 01/15/25 09:19 20 UNITS Insulin Glargine (LANtus 100 UNITS/ML 10 ML VIAL) 20 units HS SQ 01/06/25 21:00 01/06/25 21:05 DC Insulin Glargine (LANtus 100 UNITS/ML 10 ML VIAL) 20 units HS SQ 01/06/25 21:30 01/07/25 10:24 DC 01/06/25 21:33 20 UNITS Insulin Glargine (LANtus 100 UNITS/ML 10 ML VIAL) 20 units Q12H SQ 01/10/25 09:30 01/10/25 12:58 DC Insulin Glargine (LANtus 100 UNITS/ML 10 ML VIAL) 25 units Q12H SQ 01/10/25 21:30 01/11/25 00:50 DC 01/10/25 22:19 25 UNITS Insulin Glargine (LANtus 100 UNITS/ML 10 ML VIAL) 30 units DAILY SQ 01/12/25 09:00 01/14/25 07:03 DC 01/12/25 11:25 30 UNITS Insulin Glargine (LANtus 100 UNITS/ML 10 ML VIAL) 30 units Q12H SQ 01/11/25 09:30 01/11/25 20:13 DC 01/11/25 10:50 30 UNITS Insulin Human Regular (humuLIN R 100 UNIT/ML 3ML) 5 unit TIDAC SQ 01/14/25 07:30 02/13/25 07:29 01/15/25 09:18 5 UNIT Insulin Human Regular (humuLIN R 100 UNIT/ML 3ML) 8 unit TIDAC SQ 01/11/25 07:30 01/14/25 07:03 DC 01/13/25 19:47 8 UNIT Insulin Human Regular (humuLIN R 100 UNIT/ML 3ML) INSULIN SLIDING SCAL... ACHS SQ 01/05/25 07:30 01/05/25 09:57 DC 01/05/25 07:59 16 UNIT Insulin Human Regular (humuLIN R 100 UNIT/ML 3ML) INSULIN SLIDING SCAL... ACHS SQ 01/05/25 11:30 01/06/25 16:43 DC 01/06/25 11:50 8 UNIT Insulin Human Regular (humuLIN R 100 UNIT/ML 3ML) INSULIN SLIDING SCAL... ACHS SQ 01/06/25 17:00 01/07/25 13:32 DC 01/06/25 17:17 16 UNIT Insulin Human Regular (humuLIN R 100 UNIT/ML 3ML) INSULIN SLIDING SCAL... Q4H SQ 01/11/25 02:00 01/11/25 23:59 DC 01/11/25 20:49 6 UNIT Insulin Human Regular (humuLIN R 100 UNIT/ML 3ML) INSULIN SLIDING SCAL... Q4H SQ 01/11/25 23:59 02/10/25 23:58 01/14/25 21:10 8 UNIT Insulin Human Regular (humuLIN R 100 UNIT/ML 3ML) INSULIN SLIDING SCAL... Q6H6 SQ 01/10/25 18:00 01/11/25 00:50 DC 01/11/25 00:45 10 UNIT Insulin Human Regular 100 unit/ Sodium Chloride 100 ml @ 0 mls/hr AD PRN IV HYPERGLYCEMIA PROTOCOL 01/06/25 19:30 01/10/25 06:00 DC 01/09/25 19:10 16 MLS/HR Lactated Ringer's 1,000 ml @ 100 mls/hr Q10H IV 01/05/25 02:30 01/05/25 09:51 DC 01/05/25 02:30 100 MLS/HR Lactated Ringer's 1,000 ml @ 125 mls/hr Q8H IV 01/10/25 01:30 01/10/25 19:40 DC 01/10/25 13:07 125 MLS/HR Lactobacillus Rhamnosus ([facility] [employer]) 1 each DAILY PO 01/12/25 09:00 02/11/25 08:59 01/15/25 09:21 1 EACH Lorazepam (AtiVAN) 1 mg Q4H PRN IVP ALCOHOL WITHDRAWAL PROTOCOL 01/05/25 02:30 01/12/25 02:29 DC Magnesium Sulfate 50 ml @ 0 mls/hr PROTOCOL PRN IV h 01/05/25 02:30 02/04/25 02:29 01/13/25 04:13 25 MLS/HR Morphine Sulfate (morPHINE 2MG SYG) 2 mg Q4H PRN IVP SEVERE PAIN (7-10) 01/05/25 02:30 01/12/25 02:29 DC Multivitamins Therapeutic (Multivitamin Tablet) 1 tab DAILY PO 01/07/25 10:30 02/06/25 10:29 01/15/25 09:25 1 TAB Nicotine (Nicoderm) 21 mg DAILY TD 01/05/25 09:00 02/04/25 08:59 01/15/25 09:24 21 MG Nitroglycerin (Nitrostat) 0.4 mg AD PRN SL CHEST PAIN 01/05/25 02:30 02/04/25 02:29 Ondansetron HCl (zoFRAN 4MG INJ) 4 mg Q6H PRN IV NAUSEA/VOMITING 01/05/25 02:30 02/04/25 02:29 Pantoprazole Sodium (PROTonix 40MG TAB) 40 mg DAILY PO 01/05/25 09:00 02/04/25 08:59 01/15/25 09:24 40 MG Pharmacy Profile Note (Pharmacy Communication) 1 each PROTOCOL PRN MISC ETOH Withdrawal Score changes 01/05/25 02:30 01/12/25 02:29 DC Piperacillin Sod/ Tazobactam Sod (Zosyn 3.375gm+NS 50ml) 3.375 gm Q12H IV 01/05/25 02:30 01/07/25 13:24 DC 01/07/25 02:45 3.375 GM Potassium Phosphate 250 ml @ 42 mls/hr PROTOCOL PRN IV PROTOCOL 01/05/25 10:00 02/04/25 09:59 Potassium Chloride 100 ml @ 100 mls/hr AD PRN IV POTASSIUM PROTOCOL 01/05/25 02:30 01/07/25 10:12 DC Potassium Chloride 100 ml @ 100 mls/hr AD PRN IV POTASSIUM PROTOCOL 01/07/25 10:30 02/06/25 10:29 01/09/25 06:26 100 MLS/HR Potassium Chloride (K-Dur 10meq Sr Tab) 10 meq AD PRN PO POTASSIUM PROTOCOL 01/06/25 09:30 02/04/25 02:29 01/08/25 23:35 10 MEQ Potassium Chloride (K-Dur/Klor-Con 20meq) 10 meq AD PRN PO POTASSIUM PROTOCOL 01/05/25 02:30 01/06/25 09:12 DC 01/05/25 22:15 10 MEQ Potassium Chloride (K-Dur/Klor-Con 20meq) 10 meq AD PRN PO POTASSIUM PROTOCOL 01/07/25 10:30 01/07/25 10:12 DC Potassium Chloride (KCl 10% Elixir 20meq/15ml) 10 meq AD PRN PO POTASSIUM PROTOCOL 01/05/25 02:30 01/07/25 10:12 DC 01/06/25 17:16 10 MEQ Potassium Chloride (KCl 10% Elixir 20meq/15ml) 10 meq AD PRN PO POTASSIUM PROTOCOL 01/07/25 10:30 02/06/25 10:29 01/08/25 15:28 10 MEQ Sodium Bicarbonate (Sodium Bicarbonate) 1,300 mg BID PO 01/11/25 09:00 02/10/25 08:59 01/15/25 09:24 1,300 MG Sodium Chloride 1,000 ml @ 50 mls/hr Q20H IV 01/05/25 10:00 01/10/25 01:33 DC 01/09/25 05:56 50 MLS/HR Sodium Chloride 1,000 ml @ 75 mls/hr [id number] IV 01/11/25 01:00 01/11/25 13:45 DC 01/11/25 01:00 75 MLS/HR Triamcinolone Acetonide (Kenalog/ Aristocort) 1 APPLY TP BID BID TP 01/07/25 11:00 02/06/25 10:59 01/15/25 09:24 1 APPL Vancomycin HCl (Vancomycin Protocol) 1 each AD IV 01/07/25 12:30 01/07/25 12:40 DC DIAGNOSTICS / RADIOLOGY: [ ] ASSESSMENT: Severe sepsis, POA Gram-positive bacteremia secondary to Staphylococcus aureus, POA Hypodense echogenic mobile vegetation to right coronary cusp leaflet on echocardiogram 01/05/2025 Left atrial appendage clot present. on DRAKE 01/11 non coronary cusp leaflet has vegetation that measures 1.8 x 1.1 cm. on DRAKE 01/11 Urinary tract infection, secondary to Klebsiella pneumoniae, POA Strep pharyngitis, POA ITP, POA Leukocytosis, POA Hyperlactatemia, POA Acute kidney injury, POA Hypokalemia, POA Hyponatremia, POA Hypomagnesemia, POA POA New onset Uncontrolled Diabetes mellitius type2, POA Elevated troponin, POA Cocaine abuse, POA Alcohol abuse, POA Tobacco dependence, POA Significant proteinuria, POA Diabetic nephropathy, POA Gallstones, POA Fidelina esophagitis on EGD 01/11 PLAN: -patient remains admitted to the medical floor. -continue the patient on broad-spectrum IV antibiotics -results of DRAKE reviewed, Left atrial appendage clot present. on DRAKE 01/11, aortic valve is trileaflet, opens well. Non coronary cusp leaflet has vegetation that measures 1.8 x 1.1 cm. on DRAKE 01/11 -continue heparin drip. Patient already evaluated by Cardiothoracic surgeon, continue medical management, we will re-evaluate possibility of aortic valve replacement in the near future. 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 Continue to follow Hematology input and recommendation -renal function slightly improved today, patient evaluated by electric crane operator, the patient with significant proteinuria on UA consistent with diabetic nephropathy. No acute need for any form of renal replacement therapy. -blood culture positive for Staphylococcus aureus. Urine culture positive for Klebsiella pneumoniae. Continue broad-spectrum IV antibiotics, continue to follow ID input recommendation. -case discussed with case management, patient to complete course of IV antibiotics likely during this hospitalization as the patient is uninsured. Disposition: Pending improvement in clinical condition. We will downgraded to the medical floor. All questions answered time spent: > 35 min MAHOGANY CARBAJAL MD Jan 15, 2025 13:08
--- NOTE | 2025-01-15 15:11 | PN ---
FOLLOWUP PROGRESS NOTE SUBJECTIVE: A 44-year-old male who initially presented, found to have endocarditis. The patient remains on the IV antibiotics. He has had acute on chronic renal dysfunction in the hospital. Creatinine has been elevated, and he is being seen as a followup visit for all of the above. REVIEW OF SYSTEMS: GENERAL: The patient is feeling weak and tired. HEENT: No change in vision. No change in hearing, no nasal discharge, no sore throat. CARDIOVASCULAR: There is no current chest pain or palpitations. PULMONARY: No shortness of breath. GASTROINTESTINAL: The patient is tolerating a diet. MUSCULOSKELETAL: Complains of weakness. PHYSICAL EXAMINATION: VITAL SIGNS: Blood pressure 134/78, pulse in the 60s. GENERAL: Chronically ill male, much older than appearing. HEENT: Head is atraumatic. Pupils equal, roving to light. Oropharynx is without exudate. Nares clear. NECK: There is no JVP. There is no thyromegaly, no mass. CARDIOVASCULAR: Regular. There is no S3, S4 gallop. LUNGS: Coarse with equal thoracic movement. ABDOMEN: Soft, nondistended, nontender. EXTREMITIES: No clubbing, no cyanosis. NEUROLOGIC: He is awake. He is alert. He is oriented. LABORATORY DATA: Hemoglobin 12, hematocrit 37, white count is 10,000. IMPRESSION: * Acute on chronic renal failure. * Endocarditis. * Diabetes mellitus. * Hypertension. * History of a drug abuse. PLAN: The patient's renal function continues to slowly improve. The patient remains on the IV antibiotics. White cell count has greatly improved and he is being seen as a followup visit for all of the above. All labs can be repeated in the morning. We will follow closely. TID: [id number] RECEIPT: [id number]
--- NOTE | 2025-01-15 15:22 | PN ---
[facility] CARDIOLOG[facility] PROGRESS NOTE Date Patient Seen: Jan 15, 2025 Attending Rn Unit Manager: Dr. Pamela Pinzon Primary Rn Unit Manager: Dr. Anna Hilario Reason for Consult: Elevated troponin Interval History: This is a 44y/o male who was seen and evaluated at the bedside today. The patient denies any active complaints including chest pain, chest pressure, palpitations, or shortness of breath. As per the nurse, there were no overnight events. Physical Examination: GENERAL: No acute distress. Chronically ill appearing. HEAD: Normal with no signs of head trauma. EYES: PERRLA, EOMI, conjunctiva and sclera normal. NECK: Supple without JVD. There is no tenderness, lymphadenopathy, or masses. No thyromegaly. Normal carotid upstrokes without bruits. LUNGS: SCM. Bilateral air entry. Diminished breath sounds noted to the bilateral lower lung joseph. HEART: Regular rate. Normal S1 and S2. No obvious murmurs, gallops, or rubs noted. VASC: Peripheral pulses +2 bilaterally. EXT: No clubbing, cyanosis or edema. NEURO: Awake, alert, and oriented. No focal neurological deficits noted. Laboratory: Hematology Labs: Test 01/14/25 04:16 Range/Units White Blood Count 10.0 4.8-10.8 K/uL Red Blood Count 3.91 L 4.50-6.20 MIL/uL Hemoglobin 12.7 L 14.0-18.0 g/dL Hematocrit 37.0 L 42-54 % Mean Corpuscular Volume 94.6 79-99 fL Mean Corpuscular Hemoglobin 32.5 27.0-33.0 pg Mean Corpuscular Hemoglobin Concent 34.3 32.0-36.0 g/dL Red Cell Distribution Width 13.3 11.0-15.5 % Platelet Count 184 130-400 K/uL Mean Platelet Volume 10.6 H 7.5-10.5 fL Immature Granulocyte % (Auto) 0.5 0-1 % Neutrophils (%) (Auto) 88.1 H 40.0-77.0 % Lymphocytes (%) (Auto) 7.2 L 21.0-51.0 % Monocytes (%) (Auto) 4.1 3.0-13.0 % Eosinophils (%) (Auto) 0.0 0.0-8.0 % Basophils (%) (Auto) 0.1 0.0-5.0 % Neutrophils # (Auto) 8.8 H 1.8-7.7 K/uL Lymphocytes # (Auto) 0.7 L 1.0-4.8 K/uL Monocytes # (Auto) 0.4 0.1-1.0 K/uL Eosinophils # (Auto) 0.00 0.00-0.70 K/uL Basophils # (Auto) 0.01 0.00-0.20 K/uL Absolute Immature Granulocyte (auto 0.05 0-1 K/uL Nucleated Red Blood Cells 0.0 0.0-0.19 % Chemistry Labs: Test 01/15/25 11:20 01/14/25 05:28 Range/Units Whole Blood Glucose 106 70-110 MG/DL Sodium Level 139 136-145 mmol/L Potassium Level 4.8 3.5-5.1 mmol/L Chloride Level 110 101-111 mmol/L Carbon Dioxide Level 19 L 21-32 mmol/L Blood Urea Nitrogen 40 H 7-18 mg/dL Creatinine 1.2 0.5-1.3 mg/dL Glomerular Filtration Rate Calc 76 >90 mL/min Random Glucose 166 H 70-105 mg/dL Total Calcium 7.4 L 8.5-10.1 mg/dL Magnesium Level 2.00 1.80-2.40 mg/dL Total Bilirubin 1.0 0.2-1.0 mg/dL Aspartate Amino Transf (AST/SGOT) 34 10-37 U/L Alanine Aminotransferase (ALT/SGPT) 17 12-78 U/L Alkaline Phosphatase 96 50-136 U/L Total Protein 6.0 6.0-8.3 g/dL Albumin 1.9 L 3.5-5.0 g/dL Coagulation Labs: Test 01/15/25 00:54 Range/Units Activated Partial Thromboplast Time 88.1 H 26.3-35.5 SEC Assessment: -Severe sepsis -Bacteremia (MSSA) -UTI (Klebsiella) -Strep A positive -Acute cocaine intoxication -Acute cholecystitis -Fidelina esophagitis identified on EGD done 01/11/2025 -Bacterial endocarditis affecting the aortic valve (1.81x1.17 cm mass attached to the noncoronary cusp leaflet) identified on DRAKE done 01/11/2025 -Left atrial appendage thrombus identified on DRAKE done 01/11/2025 -Normal LV systolic function (LVEF: 60-65% by echo done 01/11/2025) -Elevated troponin (type II CA) -ITP -Liver cirrhosis -CAD s/p PCI with IA Integrilin, aspiration thrombectomy, PTCA, and KISHORE placement (Promus 4.0x16 mm) in the proximal LAD done on 12/19/2015 -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 Bacterial endocarditis affecting the aortic valve (1.81x1.17 cm mass attached to the noncoronary cusp leaflet) identified on DRAKE done 01/11/2025 -Positive blood cultures collected 01/05/2025, 01/07/2025, 01/09/2025, 01/11/2025 -Blood cultures collected 01/13/2025 and 01/14/2025-negative at 48 and 24 hours, respectively -The patient will continue on IV antibiotic therapy which has been tailored by ID. 2. Left atrial appendage thrombus identified on DRAKE done 01/11/2025 -Continue the IV heparin infusion 3. Elevated troponin -HS troponin I peak: 195 -We will restart the patient on aspirin 81 mg daily. He is not a candidate for statin therapy due to his liver dysfunction. This case was discussed with my Supervising Physician, Dr. Pamela Pinzon, and the above mentioned plan was formulated and agreed upon. -Progress Note written by Denver Mart, MSN, [employer], AGACNP-BC [place] MART NP Jan 15, 2025 15:22
--- NOTE | 2025-01-15 15:34 | PN ---
[facility] PROGRESS NOTE Date Patient Seen: Jan 15, 2025 Time of Visit: 15:29 Supervising Physician: ESTEBAN MAHAJAN Primary Care Physician: Car Framer PCP Outpatient Specialists: [ ] Inpatient Consults:Critical care, Hematology, cardiology and nephrology PROBLEM LIST: Endocarditis POA DRAKE on 01/11/25 with 1.1 cm aortic valve vegetation and Left Atrial Appendage thrombus Severe sepsis and shock POA, resolving Werner Esophagitis per EGD results 01/11/25 Urinary tract infection, POA Klebsiella pneumoniae cultured in the urine Staph aureus bacteremia POA Strep pharyngitis, POA Acute kidney injury, POA improving Electrolyte derangement POA ( hypokalemia, Hyponatremia) 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 Uncontrolled Diabetes mellitius type2, POA HgA1C 8.5 NTEMI Type II [place] POA PolySubstance abuse, POA, (cocaine/Marijuana) Alcohol dependence, POA Tobacco dependence, POA Acute cholecystitis on HIDA scan 01/07/25 POA Hepatomegaly with hepato steatosis MELD score on admission of 31 Morbid obesity Noncompliance behavior PLAN SUMMARY: Continue cefazolin Continue doxycycline Continue fluconazole Continue heparin drip Supplemental oxygen as needed Wean off as tolerated Duo nebs as needed Continue BiPAP nightly and p.r.n. IS while awake INTERVAL HISTORY: 01/11/25- patient is awake alert and oriented x3. Post EGD and DARKE found to have vegetation in the aortic valve and thrombus in the KARINA, and LVEF of 60- 65%.. Per Hematology started heparin gtt per protocol today. For now patient is hemodynamically stable afebrile heart rate in the 80s respiratory rate of 18 saturating 99% on room air. Patient has a urine output of 4.4 L last night and a balance of-2.2 L. He had 2 bowel movements this morning. Pt continues with ancef IV for MSSA endocarditis. He will need at least 6 weeks of IV abx. WBCs are 12.5 H&H is normal platelet count is 113 K. sodium 145 potassium of 4 carbon dioxide of 22 BUN 59 creatinine 1.8 and GFR of 47 glucose of 102 mg/dL. Patient is stable downgrade from ICU to PCCU. 01/12/25 Patient is a 44 year old gentleman who initially presented with endocarditis and thrombus in the KARINA, placed on Heparin drip by Prepress Operator since platelets count are better there is no report of fever, chills, nausea or vomiting, plan is to continue with CIWA protocol, monitor WBC, kidney function has improved, BS is stable patient remains on room air and antibiotic therapy as well antifungal medication since he is positive for werner in the esophagus, Midline has been inserted for antibiotic otherwise patient requires to be stable in order to evaluate if he will be candidate for surgery . 01/13/25 Patient is 44 year old male awake alert, well oriented who continues to be on antibiotic due to Endocarditis he has no fever, chills, no chest pain or SOB at this moment, has been follow by Dr. Quinn, Dr. Javier and Dr. Garcia offer no new issues he might need CV surgery , we will follow up closely. 01/14 - patient is seen lying in bed resting quietly currently on room air with no signs of acute distress. Patient continues to utilize BiPAP nightly and as needed. Patient continues on broad-spectrum antibiotics for endocarditis as well as Staphylococcus bacteremia. Patient had remains afebrile. Patient denies chest discomfort, chest pain or dyspnea at this time. No acute changes reported overnight. Patient was evaluated by Cardiovascular surgery and given his chronic folliculitis recommend treatment prior any further interventions. Patient had a CT scan of the chest which shows no evidence of pulmonary nodule or effusion seen. Patient was started on heparin drip secondary to the left atrial appendage thrombus. We will continue to follow up with you. 01/15 Patient is awake, alert, not in distress, no chest pain, denies fever, continues to be on antibiotic therapy due to cardiac vegetation plan is to continue monitoring cultures closely to confirm clear up in order to decide for surgical procedure as per CV surgeon recommendations otherwise no new issues reported. REVIEW OF SYSTEMS: 12 point ROS reviewed with patient. Pertinent positives mentioned above. Otherwise negative. PHYSICAL EXAM: GENERAL: alert, weak, awake oriented x 3 HEENT: EOMI, Sclera non icteric, moist mucosa NECK: Supple, no JVD, trachea midline LUNGS: Clear breath sounds bilaterally. No wheezes HEART: Regular rate and rhythm. Normal S1 and S2, without murmurs ABD: Abdomen soft, nontender. Bowel sounds present EXT: No clubbing cyanosis or edema NEURO: Alert and oriented to person, follows commands Vital Signs (last 8hr) Date Time Temp Pulse Resp B/P (MAP) Pulse Ox O2 Delivery O2 Flow Rate FiO2 01/15/25 11:50 98.6 73 18 143/95 100 Room Air 21 01/15/25 08:00 100 Room Air* 0 21 LABS: Hematology Labs: Test 01/14/25 04:16 Range/Units White Blood Count 10.0 4.8-10.8 K/uL Red Blood Count 3.91 L 4.50-6.20 MIL/uL Hemoglobin 12.7 L 14.0-18.0 g/dL Hematocrit 37.0 L 42-54 % Mean Corpuscular Volume 94.6 79-99 fL Mean Corpuscular Hemoglobin 32.5 27.0-33.0 pg Mean Corpuscular Hemoglobin Concent 34.3 32.0-36.0 g/dL Red Cell Distribution Width 13.3 11.0-15.5 % Platelet Count 184 130-400 K/uL Mean Platelet Volume 10.6 H 7.5-10.5 fL Immature Granulocyte % (Auto) 0.5 0-1 % Neutrophils (%) (Auto) 88.1 H 40.0-77.0 % Lymphocytes (%) (Auto) 7.2 L 21.0-51.0 % Monocytes (%) (Auto) 4.1 3.0-13.0 % Eosinophils (%) (Auto) 0.0 0.0-8.0 % Basophils (%) (Auto) 0.1 0.0-5.0 % Neutrophils # (Auto) 8.8 H 1.8-7.7 K/uL Lymphocytes # (Auto) 0.7 L 1.0-4.8 K/uL Monocytes # (Auto) 0.4 0.1-1.0 K/uL Eosinophils # (Auto) 0.00 0.00-0.70 K/uL Basophils # (Auto) 0.01 0.00-0.20 K/uL Absolute Immature Granulocyte (auto 0.05 0-1 K/uL Nucleated Red Blood Cells 0.0 0.0-0.19 % Chemistry Labs: Test 01/15/25 11:20 01/14/25 05:28 Range/Units Whole Blood Glucose 106 70-110 MG/DL Sodium Level 139 136-145 mmol/L Potassium Level 4.8 3.5-5.1 mmol/L Chloride Level 110 101-111 mmol/L Carbon Dioxide Level 19 L 21-32 mmol/L Blood Urea Nitrogen 40 H 7-18 mg/dL Creatinine 1.2 0.5-1.3 mg/dL Glomerular Filtration Rate Calc 76 >90 mL/min Random Glucose 166 H 70-105 mg/dL Total Calcium 7.4 L 8.5-10.1 mg/dL Magnesium Level 2.00 1.80-2.40 mg/dL Total Bilirubin 1.0 0.2-1.0 mg/dL Aspartate Amino Transf (AST/SGOT) 34 10-37 U/L Alanine Aminotransferase (ALT/SGPT) 17 12-78 U/L Alkaline Phosphatase 96 50-136 U/L Total Protein 6.0 6.0-8.3 g/dL Albumin 1.9 L 3.5-5.0 g/dL Coagulation Labs: Test 01/15/25 00:54 Range/Units Activated Partial Thromboplast Time 88.1 H 26.3-35.5 SEC DIAGNOSTICS / RADIOLOGY RESULTS: [ ] PLAN Follow up blood cultures report Continues with antibiotic and antifungal treatment follow mold maker helper recommendations follow up with leader assembler for further recommendations [facility] protocol NEURO: Minimize central acting medications as possible. Maintain fall precautions, adequate lighting during the day PULMONARY: Supplemental 02 as needed. Maintain aspiration precautions at all times CARDIOVASCULAR: Follow hemodynamics. Vital signs per facility protocol GI & NUTRITION: Continue with nutritional support. Continue stool softeners and laxatives as needed. KIDNEYS & ELECTROLYTES: Strict monitoring of intake, output and overall fluid balance. Avoid nephrotoxic medications to the extent possible. Medications to be dosed according to renal function. Monitor electrolytes and replace as needed ENDOCRINE: Maintain blood glucose between 100-180 at all times. Hypoglycemia protocol in place INFECTIOUS DISEASE: Trend temperature, WBC and procalcitonin level Follow cultures, deescalate antibiotics as soon as possible. Panculture if new onset fever ONCOLOGY/HEMATOLOGY/COAGULATION: Monitor for s/s of bleeding Monitor hemoglobin, coagulation studies as needed SKIN: Pressure ulcer prevention per facility protocol Specialty mattress ORTHO/REHAB: Continue PT/OT Prophylaxis: Continue GI and DVT prophylaxis Code Status: Full Resuscitation Dispo: As per attending Total time spent greater than 30 minutes ATTESTATION BY PHYSICIAN Documentation assistance provided by a scribe, information recorded by the scribe was done at my direction and has been reviewed and validated by me." ESTEBAN, KATIE MD I personally scribed for KATIE ORELLANA MD ([email or web address]) on 01/15/25 at 15:34. Electronically submitted by Kamilah Diop ([email or web address]). I personally scribed for KATIE ORELLANA MD ([email or web address]) on 01/15/25 at 15:38. Electronically submitted by Kamilah Diop ([id number]). KATIE ORELLANA MD Jan 15, 2025 15:34
--- NOTE | 2025-01-15 20:35 | CONS ---
GENERAL SURGERY CONSULTATION NOTE Date/Time Patient Seen: [ 01/14/2025 16:30] Requesting Physician: [ ] Reason for Consultation: [Cholecystitis] History of Present Illness: -44 year-old male admitted to ICU for severe sepsis, UTI and BRENDAN -Patient has been on multiple antibiotics since HIDA done 1 week ago which showed positive for cholecystitis -Patient is currently asymptomatic -Tolerating regular diet without complains of abdominal pain, nausea or vomiting -Patient is currently on Heparin drip for endocarditis -From surgical candidate at this time -Recommend for IR to place cholecystostomy tube if continues with cholecystitis -Cholecystectomy surgery can be planned as outpatient once patient is cleared by his real estate development manager -Thank you for consultation Past Medical History: [ ] Past Surgical History: [ ] Family History: [ ] Social History: [ ] Habits: [Never] smoker. [Denies] alcohol consumption. [Denies] illicit drug use Current Medications Medications (Trade) Dose Ordered Sig/Asya Route Start Time Stop Time Status Last Admin Dose Admin Aspirin (Aspirin 81mg Chew Tab) 81 mg DAILY PO 01/05/25 09:00 01/05/25 09:53 DC Aspirin (Aspirin 81mg Ec Tab) 81 mg DAILY PO 01/16/25 09:00 02/15/25 08:59 Cefazolin Sodium (Ancef) 2 gm Q12H IVPB 01/07/25 13:30 01/24/25 21:00 01/15/25 16:03 2 GM Chlordiazepoxide HCl (LIBrium 25 MG CAP) 25 mg Q8H PO 01/05/25 02:30 01/11/25 11:39 DC 01/10/25 22:23 25 MG Dexamethasone Sodium Phosphate 20 mg/Sodium Chloride 52 ml @ 100 mls/hr DAILY IV 01/09/25 09:00 02/08/25 08:59 01/15/25 09:20 100 MLS/HR Dexamethasone Sodium Phosphate 40 mg/Sodium Chloride 50 ml @ 100 mls/hr DAILY IV 01/06/25 14:00 01/08/25 12:16 DC 01/08/25 09:34 100 MLS/HR Doxycycline Hyclate 250 ml @ 125 mls/hr Q12H IV 01/05/25 10:00 01/06/25 21:05 DC 01/06/25 09:30 125 MLS/HR Doxycycline Hyclate 250 ml @ 125 mls/hr Q12H IV 01/06/25 21:30 01/16/25 21:29 01/15/25 11:15 125 MLS/HR Fluconazole (DiFLUCan 100 mg TAB) 200 mg DAILY PO 01/12/25 09:00 02/11/25 08:59 01/15/25 09:23 200 MG Folic Acid (FOLic ACID 1 MG TABLET) 1 mg DAILY PO 01/07/25 10:30 02/06/25 10:29 01/15/25 09:21 1 MG Furosemide (LASix 20MG VIAL) 20 mg Q12H IV 01/07/25 16:00 01/11/25 00:56 DC 01/10/25 19:40 20 MG Heparin Sodium/ Dextrose 250 ml @ 0 mls/hr PROTOCOL IV 01/11/25 14:30 02/10/25 14:29 01/15/25 07:54 16.2 MLS/HR Insulin Glargine (LANtus 100 UNITS/ML 10 ML VIAL) 15 units Q12H SQ 01/07/25 21:30 01/09/25 23:18 DC 01/09/25 13:10 15 UNITS Insulin Glargine (LANtus 100 UNITS/ML 10 ML VIAL) 20 units DAILY SQ 01/14/25 09:00 02/13/25 08:59 01/15/25 09:19 20 UNITS Insulin Glargine (LANtus 100 UNITS/ML 10 ML VIAL) 20 units HS SQ 01/06/25 21:00 01/06/25 21:05 DC Insulin Glargine (LANtus 100 UNITS/ML 10 ML VIAL) 20 units HS SQ 01/06/25 21:30 01/07/25 10:24 DC 01/06/25 21:33 20 UNITS Insulin Glargine (LANtus 100 UNITS/ML 10 ML VIAL) 20 units Q12H SQ 01/10/25 09:30 01/10/25 12:58 DC Insulin Glargine (LANtus 100 UNITS/ML 10 ML VIAL) 25 units Q12H SQ 01/10/25 21:30 01/11/25 00:50 DC 01/10/25 22:19 25 UNITS Insulin Glargine (LANtus 100 UNITS/ML 10 ML VIAL) 30 units DAILY SQ 01/12/25 09:00 01/14/25 07:03 DC 01/12/25 11:25 30 UNITS Insulin Glargine (LANtus 100 UNITS/ML 10 ML VIAL) 30 units Q12H SQ 01/11/25 09:30 01/11/25 20:13 DC 01/11/25 10:50 30 UNITS Insulin Human Regular (humuLIN R 100 UNIT/ML 3ML) 5 unit TIDAC SQ 01/14/25 07:30 02/13/25 07:29 01/15/25 17:14 5 UNIT Insulin Human Regular (humuLIN R 100 UNIT/ML 3ML) 8 unit TIDAC SQ 01/11/25 07:30 01/14/25 07:03 DC 01/13/25 19:47 8 UNIT Insulin Human Regular (humuLIN R 100 UNIT/ML 3ML) INSULIN SLIDING SCAL... ACHS SQ 01/05/25 07:30 01/05/25 09:57 DC 01/05/25 07:59 16 UNIT Insulin Human Regular (humuLIN R 100 UNIT/ML 3ML) INSULIN SLIDING SCAL... ACHS SQ 01/05/25 11:30 01/06/25 16:43 DC 01/06/25 11:50 8 UNIT Insulin Human Regular (humuLIN R 100 UNIT/ML 3ML) INSULIN SLIDING SCAL... ACHS SQ 01/06/25 17:00 01/07/25 13:32 DC 01/06/25 17:17 16 UNIT Insulin Human Regular (humuLIN R 100 UNIT/ML 3ML) INSULIN SLIDING SCAL... Q4H SQ 01/11/25 02:00 01/11/25 23:59 DC 01/11/25 20:49 6 UNIT Insulin Human Regular (humuLIN R 100 UNIT/ML 3ML) INSULIN SLIDING SCAL... Q4H SQ 01/11/25 23:59 02/10/25 23:58 01/15/25 17:13 16 UNIT Insulin Human Regular (humuLIN R 100 UNIT/ML 3ML) INSULIN SLIDING SCAL... Q6H6 SQ 01/10/25 18:00 01/11/25 00:50 DC 01/11/25 00:45 10 UNIT Lactated Ringer's 1,000 ml @ 100 mls/hr Q10H IV 01/05/25 02:30 01/05/25 09:51 DC 01/05/25 02:30 100 MLS/HR Lactated Ringer's 1,000 ml @ 125 mls/hr Q8H IV 01/10/25 01:30 01/10/25 19:40 DC 01/10/25 13:07 125 MLS/HR Lactobacillus Rhamnosus ([facility] [employer]) 1 each DAILY PO 01/12/25 09:00 02/11/25 08:59 01/15/25 09:21 1 EACH Multivitamins Therapeutic (Multivitamin Tablet) 1 tab DAILY PO 01/07/25 10:30 02/06/25 10:29 01/15/25 09:25 1 TAB Nicotine (Nicoderm) 21 mg DAILY TD 01/05/25 09:00 02/04/25 08:59 01/15/25 09:24 21 MG Pantoprazole Sodium (PROTonix 40MG TAB) 40 mg DAILY PO 01/05/25 09:00 02/04/25 08:59 01/15/25 09:24 40 MG Piperacillin Sod/ Tazobactam Sod (Zosyn 3.375gm+NS 50ml) 3.375 gm Q12H IV 01/05/25 02:30 01/07/25 13:24 DC 01/07/25 02:45 3.375 GM Sodium Bicarbonate (Sodium Bicarbonate) 1,300 mg BID PO 01/11/25 09:00 02/10/25 08:59 01/15/25 09:24 1,300 MG Sodium Chloride 1,000 ml @ 50 mls/hr Q20H IV 01/05/25 10:00 01/10/25 01:33 DC 01/09/25 05:56 50 MLS/HR Sodium Chloride 1,000 ml @ 75 mls/hr [id number] IV 01/11/25 01:00 01/11/25 13:45 DC 01/11/25 01:00 75 MLS/HR Triamcinolone Acetonide (Kenalog/ Aristocort) 1 APPLY TP BID BID TP 01/07/25 11:00 02/06/25 10:59 01/15/25 09:24 1 APPL Vancomycin HCl (Vancomycin Protocol) 1 each AD IV 01/07/25 12:30 01/07/25 12:40 DC Review of Systems: CONST: [No fever.] EYES: [No recent vision problems.] ENT: [No sore throat.] C/V: [No chest pain.] RESP: [No shortness of breath.] GI: [No abdominal pain, nausea, vomiting, constipation, or diarrhea.] : [No dysuria.] SKIN: [No rash.] NEURO: [No headache, focal numbness or weakness.] Physical Examination: GENERAL: [No acute distress, male with family at bedside.] HEAD: [Normocephalic.] EYES: [PERRLA.] NECK: [Supple.] LUNGS: [Clear breath sounds bilaterally.] HEART: [Normal rate and rhythm.] VASC: [Peripheral pulses +2 bilaterally.] ABD: [Bowel sounds normal, soft, nontender, no masses, no organomegaly.] : [Not examined] EXT: [No edema.] SKIN: [No lesions noted.] NEURO: [Awake, alert, and oriented x3.] Vital Signs (last 8hr) Date Time Temp Pulse Resp B/P (MAP) Pulse Ox O2 Delivery O2 Flow Rate FiO2 01/15/25 19:55 97.9 60 17 144/88 100 Room Air 01/15/25 19:01 65 18 01/15/25 15:25 98.6 76 18 133/44 98 Room Air 21 Laboratory: [ ] Hematology Labs: Test 01/14/25 04:16 Range/Units White Blood Count 10.0 4.8-10.8 K/uL Red Blood Count 3.91 L 4.50-6.20 MIL/uL Hemoglobin 12.7 L 14.0-18.0 g/dL Hematocrit 37.0 L 42-54 % Mean Corpuscular Volume 94.6 79-99 fL Mean Corpuscular Hemoglobin 32.5 27.0-33.0 pg Mean Corpuscular Hemoglobin Concent 34.3 32.0-36.0 g/dL Red Cell Distribution Width 13.3 11.0-15.5 % Platelet Count 184 130-400 K/uL Mean Platelet Volume 10.6 H 7.5-10.5 fL Immature Granulocyte % (Auto) 0.5 0-1 % Neutrophils (%) (Auto) 88.1 H 40.0-77.0 % Lymphocytes (%) (Auto) 7.2 L 21.0-51.0 % Monocytes (%) (Auto) 4.1 3.0-13.0 % Eosinophils (%) (Auto) 0.0 0.0-8.0 % Basophils (%) (Auto) 0.1 0.0-5.0 % Neutrophils # (Auto) 8.8 H 1.8-7.7 K/uL Lymphocytes # (Auto) 0.7 L 1.0-4.8 K/uL Monocytes # (Auto) 0.4 0.1-1.0 K/uL Eosinophils # (Auto) 0.00 0.00-0.70 K/uL Basophils # (Auto) 0.01 0.00-0.20 K/uL Absolute Immature Granulocyte (auto 0.05 0-1 K/uL Nucleated Red Blood Cells 0.0 0.0-0.19 % Chemistry Labs: Test 01/15/25 19:42 01/14/25 05:28 Range/Units Whole Blood Glucose 163 H 70-110 MG/DL Sodium Level 139 136-145 mmol/L Potassium Level 4.8 3.5-5.1 mmol/L Chloride Level 110 101-111 mmol/L Carbon Dioxide Level 19 L 21-32 mmol/L Blood Urea Nitrogen 40 H 7-18 mg/dL Creatinine 1.2 0.5-1.3 mg/dL Glomerular Filtration Rate Calc 76 >90 mL/min Random Glucose 166 H 70-105 mg/dL Total Calcium 7.4 L 8.5-10.1 mg/dL Magnesium Level 2.00 1.80-2.40 mg/dL Total Bilirubin 1.0 0.2-1.0 mg/dL Aspartate Amino Transf (AST/SGOT) 34 10-37 U/L Alanine Aminotransferase (ALT/SGPT) 17 12-78 U/L Alkaline Phosphatase 96 50-136 U/L Total Protein 6.0 6.0-8.3 g/dL Albumin 1.9 L 3.5-5.0 g/dL Coagulation Labs: Test 01/15/25 00:54 Range/Units Activated Partial Thromboplast Time 88.1 H 26.3-35.5 SEC Diagnostics / Radiology: [Copy/Paste Echos/Imaging Report here] Assessment: [ ] Plan: [ ] YULISSA TONG APRN Jan 15, 2025 20:35
[2025-01-16] VITALS (9 sets, daily range): BP systolic 134–147; BP diastolic 80–93; PULSE 60–80; RESP 17–20; TEMP 97.5–98.2; O2SAT 98–100
[2025-01-16 01:18] LABS: HEMATOCRIT 33.7 % (42-54); MEAN CORPUSCULAR HEMOGLOBIN 32.2 pg (27.0-33.0); MEAN CORPUSCULAR HGB CONC 35.3 g/dL (32.0-36.0); MEAN CORPUSCULAR VOLUME 91.1 fL (79-99); RED BLOOD CELL COUNT(AUTO) 3.7 MIL/uL (4.50-6.20); RED CELL DISTRIBUTION WIDTH 13.1 % (11.0-15.5); WHITE BLOOD COUNT (AUTO) 12.4 K/uL (4.8-10.8)
[2025-01-16 01:30] LABS: BILIRUBIN,TOTAL 0.8 mg/dL (0.2-1.0); CREATININE 1.2 mg/dL (0.5-1.3); MAGNESIUM 1.7 mg/dL (1.80-2.40); POTASSIUM 4.2 mmol/L (3.5-5.1); TOTAL PROTEIN, SERUM 5.7 g/dL (6.0-8.3)
[2025-01-16 07:30] LABS: HEMATOCRIT 33.7 % (42-54)
--- NOTE | 2025-01-16 07:32 | PN ---
[facility] CARDIOLOGY PROGRESS NOTE Date Patient Seen: Jan 16, 2025 Time of Visit: 07:29 Interval History: [Platelets improved. Leukocytosis worsening today Physical Examination: GENERAL: [No acute distress.] HEAD: [Normal with no signs of head trauma.] EYES: [PERRLA, EOMI, conjunctiva and sclera normal.] ENT: [Hearing grossly intact, normal oropharynx.] NECK: [Supple without JVD. There is no tenderness, lymphadenopathy, or masses. No thyromegaly. Normal carotid upstrokes without bruits.] LUNGS: [Clear breath sounds bilaterally. There are right basilar rales one third of the way up the chest. No wheezes, or rhonchi.] HEART: [Normal rate and rhythm. Normal S1 and S2 without mumurs, gallop or rub.] VASC: [Peripheral pulses +2 bilaterally.] ABD: [Bowel sounds normal, soft, nontender, no masses, no organomegaly. No au dible bruits.] : [Not examined] LYMPH: [No lymphadenopathy noted.] EXT: [No clubbing, cyanosis or edema.] SKIN: [No rashes or lesions noted.] NEURO: [Awake, alert, and oriented x3. No focal sensory or strength deficits noted.] Laboratory: [ ] Hematology Labs: Test 01/16/25 01:11 Range/Units White Blood Count 12.4 H 4.8-10.8 K/uL Red Blood Count 3.70 L 4.50-6.20 MIL/uL Hemoglobin 11.9 L 14.0-18.0 g/dL Hematocrit 33.7 L 42-54 % Mean Corpuscular Volume 91.1 79-99 fL Mean Corpuscular Hemoglobin 32.2 27.0-33.0 pg Mean Corpuscular Hemoglobin Concent 35.3 32.0-36.0 g/dL Red Cell Distribution Width 13.1 11.0-15.5 % Platelet Count 181 130-400 K/uL Mean Platelet Volume 10.5 7.5-10.5 fL Nucleated Red Blood Cells 0.0 0.0-0.19 % Chemistry Labs: Test 01/16/25 04:42 01/16/25 01:11 Range/Units Whole Blood Glucose 106 70-110 MG/DL Sodium Level 137 136-145 mmol/L Potassium Level 4.2 3.5-5.1 mmol/L Chloride Level 108 101-111 mmol/L Carbon Dioxide Level 20 L 21-32 mmol/L Blood Urea Nitrogen 35 H 7-18 mg/dL Creatinine 1.2 0.5-1.3 mg/dL Glomerular Filtration Rate Calc 76 >90 mL/min Random Glucose 171 H 70-105 mg/dL Total Calcium 7.4 L 8.5-10.1 mg/dL Magnesium Level 1.70 L 1.80-2.40 mg/dL Total Bilirubin 0.8 0.2-1.0 mg/dL Aspartate Amino Transf (AST/SGOT) 18 10-37 U/L Alanine Aminotransferase (ALT/SGPT) 15 12-78 U/L Alkaline Phosphatase 86 50-136 U/L Total Protein 5.7 L 6.0-8.3 g/dL Albumin 2.0 L 3.5-5.0 g/dL Coagulation Labs: Test 01/16/25 01:11 Range/Units Activated Partial Thromboplast Time 92.8 *H 26.3-35.5 SEC Diagnostics / Radiology: [Copy/Paste Echos/Imaging Report here] Impression and Plan: [ 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 Patient is high risk given advanced liver disease and thrombocytopenia -DRAKE on 01/11/2025 with LVEF of 60-65%, Left atrial appendage clot present, Aortic valve is trileaflet and open well. Non coronary cusp leaflet has vegetation that measures 1.81cm x 1.17cm. ID abx for MSSA for 6 weeks and repeat DRAKE at that time -Started on Heparin gtt -blood cultures negative for 48 hours as of 01/14/2025 KARINA thrombus -on heparin gtt, monitor platelets -will defer to hematology for oral anticoagulation Thrombocytopenia with platelet count falling to 21,000 on 01/05/2025, now improving to [id number] -Dr. 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
--- NOTE | 2025-01-16 09:15 | PN ---
GASTROENTEROLOGY PROGRESS NOTE Date of Visit: Jan 16, 2025 Time of Visit: 09:15 Events / Notes: No acute events overnight. Patient had EGD revealing LA Grade B esophagitis. Denies fever, chills, abdominal pain, N/V, hematemesis, bloating, constipation, diarrhea, melena or hematochezia. Review of Systems: CONSTITUTIONAL: No malaise or change in sensation of wellbeing. ENMT: No rhinorrhea, otorrhea, sinus pain, ear ache. CARDIOVASCULAR: No angina, palpitations, orthopnea or paroxysmal dyspnea. RESPIRATORY: No SOB. GASTROINTESTINAL: No abdominal pain, nausea, vomiting, diarrhea, hematemesis, melena or change in the patient's habitual bowel movements consistency/number. GENITOURINARY: No dysuria, hematuria or change in bladder continence. MUSCULOSKELETAL: No new muscle pain or decrease in muscular strength. No new joint swelling, redness or tenderness. SKIN: No new rash. Physical Exam: GEN: Awake, alert, oriented in person, time and place, and in no acute distress. HEENT: No sinus tenderness. Tympanic membranes were not examined. No rhinorrhea. Oral pharyngeal mucosa is pink, moist and within normal limits. Neck is supple with no cervical lymphadenopathy, thyromegaly or JVD. CHEST: Inspection, palpation and percussion of the chest were unremarkable. Lung auscultation revealed normal breath sounds bilaterally. CARDIAC: PMI is within normal limits. Heart sounds are regular. Normal S1, S2. No gallop or murmur. ABD: Soft, non-tender and not distended. No peritoneal signs on palpation. No organomegaly. Normal bowel sounds. EXT: No cyanosis or clubbing. No edema. SKIN: Intact. No rashes. JOINTS: No evidence of synovitis or acute arthritis. NEURO: Alert and oriented to name, place and person. Cranial nerve examination is unremarkable. No focal motor deficits. Normal speech. Gait is normal. Strength is normal. Vital Signs (last 8hr) Date Time Temp Pulse Resp B/P (MAP) Pulse Ox O2 Delivery O2 Flow Rate FiO2 01/16/25 08:49 62 18 01/16/25 07:20 98.2 62 20 136/89 100 Room Air 21 01/16/25 03:37 97.5 60 17 142/87 98 Room Air Laboratory: [ ] Laboratory: Test 01/16/25 07:11 2/17/25 04:42 01/16/25 01:11 Range/Units Hemoglobin 11.8 L 14.0-18.0 g/dL Hematocrit 33.7 L 42-54 % Activated Partial Thromboplast Time 51.4 #H 26.3-35.5 SEC Whole Blood Glucose 106 70-110 MG/DL White Blood Count 12.4 H 4.8-10.8 K/uL Red Blood Count 3.70 L 4.50-6.20 MIL/uL Mean Corpuscular Volume 91.1 79-99 fL Mean Corpuscular Hemoglobin 32.2 27.0-33.0 pg Mean Corpuscular Hemoglobin Concent 35.3 32.0-36.0 g/dL Red Cell Distribution Width 13.1 11.0-15.5 % Platelet Count 181 130-400 K/uL Mean Platelet Volume 10.5 7.5-10.5 fL Nucleated Red Blood Cells 0.0 0.0-0.19 % Sodium Level 137 136-145 mmol/L Potassium Level 4.2 3.5-5.1 mmol/L Chloride Level 108 101-111 mmol/L Carbon Dioxide Level 20 L 21-32 mmol/L Blood Urea Nitrogen 35 H 7-18 mg/dL Creatinine 1.2 0.5-1.3 mg/dL Glomerular Filtration Rate Calc 76 >90 mL/min Random Glucose 171 H 70-105 mg/dL Total Calcium 7.4 L 8.5-10.1 mg/dL Magnesium Level 1.70 L 1.80-2.40 mg/dL Total Bilirubin 0.8 0.2-1.0 mg/dL Aspartate Amino Transf (AST/SGOT) 18 10-37 U/L Alanine Aminotransferase (ALT/SGPT) 15 12-78 U/L Alkaline Phosphatase 86 50-136 U/L Total Protein 5.7 L 6.0-8.3 g/dL Albumin 2.0 L 3.5-5.0 g/dL Current Medications Medications (Trade) Dose Ordered Sig/Asya Route PRN Reason Start Time Stop Time Status Last Admin Dose Admin Acetaminophen (TYLenol 325MG TAB) 650 mg Q6H PRN PO TEMPERATURE GREATER THAN 101.5 01/05/25 02:30 02/04/25 02:29 01/15/25 11:15 650 MG Aspirin (Aspirin 81mg Chew Tab) 81 mg DAILY PO 01/05/25 09:00 01/05/25 09:53 DC Aspirin (Aspirin 81mg Ec Tab) 81 mg DAILY PO 01/16/25 09:00 02/15/25 08:59 Benzocaine (Cepacol Sore Throat Lozenge) 1 each Q4H PRN MM SORE THROAT 01/05/25 02:30 02/04/25 02:29 Calcium Gluconate 1 gm/Sodium Chloride 100 ml @ 0 mls/hr AD PRN IV Serum Calcium Correction 01/08/25 02:30 02/07/25 02:29 01/08/25 23:32 90 MLS/HR Cefazolin Sodium (Ancef) 2 gm Q12H IVPB 01/07/25 13:30 01/24/25 21:00 01/16/25 01:12 2 GM Chlordiazepoxide HCl (LIBrium 25 MG CAP) 25 mg Q8H PO 01/05/25 02:30 01/11/25 11:39 DC 01/10/25 22:23 25 MG Chlordiazepoxide HCl (LIBrium 25 MG CAP) 25 mg Q8H PRN PO WITHDRAWAL 01/11/25 12:00 01/12/25 02:29 DC Dexamethasone Sodium Phosphate 20 mg/Sodium Chloride 52 ml @ 100 mls/hr DAILY IV 01/09/25 09:00 02/08/25 08:59 01/15/25 09:20 100 MLS/HR Dexamethasone Sodium Phosphate 40 mg/Sodium Chloride 50 ml @ 100 mls/hr DAILY IV 01/06/25 14:00 01/08/25 12:16 DC 01/08/25 09:34 100 MLS/HR Dextrose (D50w) 50 ml AD PRN IV HYPOGLYCEMIA PROTOCOL 01/05/25 10:00 02/04/25 09:59 Doxycycline Hyclate 250 ml @ 125 mls/hr Q12H IV 01/05/25 10:00 01/06/25 21:05 DC 01/06/25 09:30 125 MLS/HR Doxycycline Hyclate 250 ml @ 125 mls/hr Q12H IV 01/06/25 21:30 01/16/25 21:29 01/15/25 21:54 125 MLS/HR Fluconazole (DiFLUCan 100 mg TAB) 200 mg DAILY PO 01/12/25 09:00 3/15/25 08:59 01/15/25 09:23 200 MG Folic Acid (FOLic ACID 1 MG TABLET) 1 mg DAILY PO 01/07/25 10:30 02/06/25 10:29 01/15/25 09:21 1 MG Furosemide (LASix 20MG VIAL) 20 mg Q12H IV 01/07/25 16:00 01/11/25 00:56 DC 01/10/25 19:40 20 MG Glucagon (Glucagon 1mg Kit) 1 mg AD PRN IM HYPOGLYCEMIA PROTOCOL 01/05/25 10:00 02/04/25 09:59 Heparin Sodium/ Dextrose 250 ml @ 0 mls/hr PROTOCOL IV 01/11/25 14:30 02/10/25 14:29 01/16/25 01:17 16 MLS/HR Hydralazine HCl (APRESOLine 20MG INJ) 5 mg Q6H PRN IV For:SBP above 160;DBP above 90 01/05/25 14:30 02/04/25 14:29 01/10/25 22:24 5 MG Hydralazine HCl (APRESOLine 20MG INJ) 10 mg Q6H PRN IV For:SBP above 160;DBP above 90 01/05/25 02:30 01/05/25 09:53 DC Insulin Glargine (LANtus 100 UNITS/ML 10 ML VIAL) 15 units Q12H SQ 01/07/25 21:30 01/09/25 23:18 DC 01/09/25 13:10 15 UNITS Insulin Glargine (LANtus 100 UNITS/ML 10 ML VIAL) 20 units DAILY SQ 01/14/25 09:00 02/13/25 08:59 01/15/25 09:19 20 UNITS Insulin Glargine (LANtus 100 UNITS/ML 10 ML VIAL) 20 units HS SQ 01/06/25 21:00 01/06/25 21:05 DC Insulin Glargine (LANtus 100 UNITS/ML 10 ML VIAL) 20 units HS SQ 01/06/25 21:30 01/07/25 10:24 DC 01/06/25 21:33 20 UNITS Insulin Glargine (LANtus 100 UNITS/ML 10 ML VIAL) 20 units Q12H SQ 01/10/25 09:30 01/10/25 12:58 DC Insulin Glargine (LANtus 100 UNITS/ML 10 ML VIAL) 25 units Q12H SQ 01/10/25 21:30 01/11/25 00:50 DC 01/10/25 22:19 25 UNITS Insulin Glargine (LANtus 100 UNITS/ML 10 ML VIAL) 30 units DAILY SQ 01/12/25 09:00 01/14/25 07:03 DC 01/12/25 11:25 30 UNITS Insulin Glargine (LANtus 100 UNITS/ML 10 ML VIAL) 30 units Q12H SQ 01/11/25 09:30 01/11/25 20:13 DC 01/11/25 10:50 30 UNITS Insulin Human Regular (humuLIN R 100 UNIT/ML 3ML) 5 unit TIDAC SQ 01/14/25 07:30 02/13/25 07:29 01/15/25 17:14 5 UNIT Insulin Human Regular (humuLIN R 100 UNIT/ML 3ML) 8 unit TIDAC SQ 01/11/25 07:30 01/14/25 07:03 DC 01/13/25 19:47 8 UNIT Insulin Human Regular (humuLIN R 100 UNIT/ML 3ML) INSULIN SLIDING SCAL... ACHS SQ 01/05/25 07:30 01/05/25 09:57 DC 01/05/25 07:59 16 UNIT Insulin Human Regular (humuLIN R 100 UNIT/ML 3ML) INSULIN SLIDING SCAL... ACHS SQ 01/05/25 11:30 01/06/25 16:43 DC 01/06/25 11:50 8 UNIT Insulin Human Regular (humuLIN R 100 UNIT/ML 3ML) INSULIN SLIDING SCAL... ACHS SQ 01/06/25 17:00 01/07/25 13:32 DC 01/06/25 17:17 16 UNIT Insulin Human Regular (humuLIN R 100 UNIT/ML 3ML) INSULIN SLIDING SCAL... Q4H SQ 01/11/25 02:00 01/11/25 23:59 DC 01/11/25 20:49 6 UNIT Insulin Human Regular (humuLIN R 100 UNIT/ML 3ML) INSULIN SLIDING SCAL... Q4H SQ 01/11/25 23:59 02/10/25 23:58 01/16/25 01:14 4 UNIT Insulin Human Regular (humuLIN R 100 UNIT/ML 3ML) INSULIN SLIDING SCAL... Q6H6 SQ 01/10/25 18:00 01/11/25 00:50 DC 01/11/25 00:45 10 UNIT Insulin Human Regular 100 unit/ Sodium Chloride 100 ml @ 0 mls/hr AD PRN IV HYPERGLYCEMIA PROTOCOL 01/06/25 19:30 01/10/25 06:00 DC 01/09/25 19:10 16 MLS/HR Lactated Ringer's 1,000 ml @ 100 mls/hr Q10H IV 01/05/25 02:30 01/05/25 09:51 DC 01/05/25 02:30 100 MLS/HR Lactated Ringer's 1,000 ml @ 125 mls/hr Q8H IV 01/10/25 01:30 01/10/25 19:40 DC 01/10/25 13:07 125 MLS/HR Lactobacillus Rhamnosus ([facility] [employer]) 1 each DAILY PO 01/12/25 09:00 02/11/25 08:59 01/15/25 09:21 1 EACH Lorazepam (AtiVAN) 1 mg Q4H PRN IVP ALCOHOL WITHDRAWAL PROTOCOL 01/05/25 02:30 01/12/25 02:29 DC Magnesium Sulfate 50 ml @ 0 mls/hr PROTOCOL PRN IV h 01/05/25 02:30 02/04/25 02:29 01/13/25 04:13 25 MLS/HR Morphine Sulfate (morPHINE 2MG SYG) 2 mg Q4H PRN IVP SEVERE PAIN (7-10) 01/05/25 02:30 01/12/25 02:29 DC Multivitamins Therapeutic (Multivitamin Tablet) 1 tab DAILY PO 01/07/25 10:30 02/06/25 10:29 01/15/25 09:25 1 TAB Nicotine (Nicoderm) 21 mg DAILY TD 01/05/25 09:00 02/04/25 08:59 01/15/25 09:24 21 MG Nitroglycerin (Nitrostat) 0.4 mg AD PRN SL CHEST PAIN 01/05/25 02:30 02/04/25 02:29 Ondansetron HCl (zoFRAN 4MG INJ) 4 mg Q6H PRN IV NAUSEA/VOMITING 01/05/25 02:30 02/04/25 02:29 Pantoprazole Sodium (PROTonix 40MG TAB) 40 mg DAILY PO 01/05/25 09:00 02/04/25 08:59 01/15/25 09:24 40 MG Pharmacy Profile Note (Pharmacy Communication) 1 each PROTOCOL PRN MISC ETOH Withdrawal Score changes 01/05/25 02:30 01/12/25 02:29 DC Piperacillin Sod/ Tazobactam Sod (Zosyn 3.375gm+NS 50ml) 3.375 gm Q12H IV 01/05/25 02:30 01/07/25 13:24 DC 01/07/25 02:45 3.375 GM Potassium Phosphate 250 ml @ 42 mls/hr PROTOCOL PRN IV PROTOCOL 01/05/25 10:00 02/04/25 09:59 Potassium Chloride 100 ml @ 100 mls/hr AD PRN IV POTASSIUM PROTOCOL 01/05/25 02:30 01/07/25 10:12 DC Potassium Chloride 100 ml @ 100 mls/hr AD PRN IV POTASSIUM PROTOCOL 01/07/25 10:30 02/06/25 10:29 01/09/25 06:26 100 MLS/HR Potassium Chloride (K-Dur 10meq Sr Tab) 10 meq AD PRN PO POTASSIUM PROTOCOL 01/06/25 09:30 02/04/25 02:29 01/08/25 23:35 10 MEQ Potassium Chloride (K-Dur/Klor-Con 20meq) 10 meq AD PRN PO POTASSIUM PROTOCOL 01/05/25 02:30 01/06/25 09:12 DC 01/05/25 22:15 10 MEQ Potassium Chloride (K-Dur/Klor-Con 20meq) 10 meq AD PRN PO POTASSIUM PROTOCOL 01/07/25 10:30 01/07/25 10:12 DC Potassium Chloride (KCl 10% Elixir 20meq/15ml) 10 meq AD PRN PO POTASSIUM PROTOCOL 01/05/25 02:30 01/07/25 10:12 DC 01/06/25 17:16 10 MEQ Potassium Chloride (KCl 10% Elixir 20meq/15ml) 10 meq AD PRN PO POTASSIUM PROTOCOL 01/07/25 10:30 02/06/25 10:29 01/08/25 15:28 10 MEQ Sodium Bicarbonate (Sodium Bicarbonate) 1,300 mg BID PO 01/11/25 09:00 02/10/25 08:59 01/15/25 21:55 1,300 MG Sodium Chloride 1,000 ml @ 50 mls/hr Q20H IV 01/05/25 10:00 01/10/25 01:33 DC 01/09/25 05:56 50 MLS/HR Sodium Chloride 1,000 ml @ 75 mls/hr [id number] IV 01/11/25 01:00 01/11/25 13:45 DC 01/11/25 01:00 75 MLS/HR Triamcinolone Acetonide (Kenalog/ Aristocort) 1 APPLY TP BID BID TP 01/07/25 11:00 02/06/25 10:59 01/15/25 21:55 1 APPL Vancomycin HCl (Vancomycin Protocol) 1 each AD IV 01/07/25 12:30 01/07/25 12:40 DC Diagnostics / Radiology: [COPY/PASTE HERE IF NO REPORTS PLEASE DELETE SECTION] Assessment: GERD esophagitis Decompensated cirrhosis Thrombocytopenia Abnormal troponin Alcohol abuse Plan: Follow cardio recommendations Will obtain liver serologies to r/o other liver pathology Please contact our service if the patient has significant bleeding such as hematemesis and we can proceed sooner with the EGD Thanks you for allowing us to participate in the care of this patient! HILDA MUIR [employer] Jan 16, 2025 09:15
--- NOTE | 2025-01-16 10:00 | PN ---
SUBJECTIVE: A 44-year-old male with a history of diabetes mellitus and hypertension. The patient presented to the hospital and found to have endocarditis. The patient remains on the antibiotics. He has had acute on chronic renal failure in the hospital. Creatinine has actually stabilized and the patient is being seen as a followup visit for all of the above. REVIEW OF SYSTEMS: GENERAL: He is feeling weak and tired. HEENT: No change in vision. No change in hearing. CARDIOVASCULAR: No current chest pains or palpitations. PULMONARY: No shortness of breath. GASTROINTESTINAL: The patient is tolerating diet. MUSCULOSKELETAL: Complains of weakness. PHYSICAL EXAMINATION:. VITAL SIGNS: Blood pressure 136/89, pulse 60s. GENERAL: Chronically ill male, older than appearing. SKIN: Head is atraumatic. Pupils equal, roving to light. Oropharynx is without exudate. Nares clear. NECK: There is no JVP, no thyromegaly. CARDIOVASCULAR: Regular. There is no S3, S4 gallop. LUNGS: Coarse with equal thoracic movement. ABDOMEN: Soft, nondistended, nontender. EXTREMITIES: Reveal no clubbing, no cyanosis. NEUROLOGIC: He is awake. He is alert. LABORATORY DATA: Sodium 137, potassium 4.2, BUN 35, creatinine 1.2. Hemoglobin 11, hematocrit 33. IMPRESSION: * Acute on chronic renal failure. * Diabetic nephropathy. * Endocarditis. * Hypertension. PLAN: The patient's creatinine continues to stabilize. The patient remains on the antibiotics. Repeat cultures have been negative. The patient is being seen by case management in regards to final disposition. We will continue to follow closely. The patient with multiple questions, all of which were all answered. TID: [id number] RECEIPT: [id number]
[2025-01-16] MEDS: ASPIRIN 81 MG EC TAB PO SCH (10:11)
--- NOTE | 2025-01-16 14:09 | PN ---
[facility] PROGRESS NOTE Date of Service: Jan 16, 2025 Time of Service: 14:06 SUBJECTIVE: [ ] The patient has been seen and examined at bedside, no acute events overnight, the patient is comfortable, cooperating well, alert oriented x3, he is on a CIWA protocol, not combative. BP 123/70, rest of vital signs unremarkable. Patient received transfusion of 1 unit of platelet, platelet count improved to 27, per relief man, likely due to splenomegaly. Echocardiogram reviewed, hypodense echogenic mobile vegetation to right coronary cusp leaflet, per cardiology once platelet count is greater than 50 1000 we will proceed with a a DRAKE. The pa tient also with a elevated blood sugar, continue insulin sliding scale, add insulin glargine 20 units subcutaneously at bedtime. Continue the patient on broad-spectrum IV antibiotics, continue to trend WBC in a.m.. 01/07 patient is seen and examined at bedside, case discussed with the RN, patient upgraded last night to the ICU to start insulin drip as blood glucose per sistently greater than 400. Patient started on dexamethasone IV by relief man do to ITP. Platelet count slightly better today at 41. Upon my initial encounter with the patient admitted that he drinks more than 18 beers per day. He was started on CIWA protocol, however has remained hemodynamically stable, comfortable in bed, no signs of withdrawal, cooperating fine. Not agitated, not combative. Toxicology screen positive for cocaine. Sodium level slowly improvi ng, today 132. Serology positive for influenza type A. The patient with significant proteinuria consistent with diabetic nephropathy, creatinine slowly trending down, no need for renal replacement therapy per sheet rock layer. Patient with blood culture positive for Staphylococcus aureus, with urine culture positive for Klebsiella pneumoniae. We will add vancomycin IV pharmacy to dose. We will request Infectious Disease consultation. Echocardiogram reviewed, hypodense echogenic mobile vegetation to right coronary cusp leaflet, per cardiology once platelet count is greater than 50 1000 we will proceed with a a DRAKE. CT abdomen with gallstones in the gallbladder. HIDA scan pending 01/08 patient seen at bedside, no acute events overnight. He continues on insulin drip with an anion gap of 14, we will continue until the gap is closed. P latelets 54, we will follow up with Cardiology on optimal timing for DRAKE. Continue with IV antibiotics, further care per critical Care. 2/10 patient seen at bedside, no acute events overnight. Anion gap is still open at 14, we will continue IV insulin. Platelets improved from 54 up to 71, CO2 decreased from 17 down to 15. Cardiology planning on DRAKE today, we will follow up postprocedure. Repeat blood cultures are positive for Gram-positive organisms which further supports underlying endocarditis. Continue with IV antibiotics, appreciate Infectious Disease recommendations. He has been afebrile, hemodynamically stable saturating well on room air. WBC increased from 12.8 up to 13.6, BUN decreased from 93 down to 90, creatinine decreased from 2.5 down to 2.3, remainder of his labs are relatively unremarkable. 01/10 Pt seen at bedside, no acute events overnight. Pt with anion gap of 14, CO2 still low at 16. Repeat lactic acid was ordered, elevated at 4.8, will bolus patient and continue with IV fluids. DRAKE was rescheduled to today, will follow up with results.WBC improved from 13.6 down to 11.7, Hgb decreased from 15.1 down to 12.4, platelets decreased from 71 down to 66, this substantial decrease in all cell lines suggests hemodilution, creatinine decreased from 2.2 down to 1.4, also likely falsely depressed. 01/11 Pt seen at bedside, no acute events overnight. Pending EGD to assess for esophageal varices and DRAKE today, will follow up post procedure. Yesterday repeat lactic acid was elevated at 4.8, the patient was bolused and it improved down to 1.3. He has been afebrile, hemodynamically stable, saturating well on room air. WBC increased from 11.7 up to 12.5, platelets improved from 66 up to 113, creatinine increased from 1.6 up to 1.8, CO2 improved from 17 up to 22 after patient was started on bicarb. Third set of blood cultures growing gram positive organisms 01/12 patient is seen and examined at bedside, case discussed with the RN, no acute events overnight, remains on broad-spectrum IV antibiotics, alert oriented x3, following commands. Patient underwent DRAKE 01/11, tolerated well, LVEF 60- 65%, no left ventricle thrombus noted. Right ventricle is severely dilated. Left atrial appendage clot present. No mass or thrombus in the left atrium. No mass or thrombus in the right atrium. Aortic valve is trileaflet, opens well, non coronary cusp leaflet has vegetation that measures 1.8 x 1.1 cm. No mitral valve vegetation, no tricuspid valve vegetation, no pulmonic valve vegetation. Finding discussed with the patient, all questions answered. 01/13 patient is seen and examined at bedside, case discussed with the RN, no acute events overnight, during my visit the patient comfortably in bed, hemodynamically stable, alert oriented x3, getting IV antibiotics, denies chest pain, no shortness a breath, no nausea, no vomiting. 01/14 patient is seen and examined at bedside, downgraded to the medical floor, case discussed with the RN, patient hemodynamically stable, alert oriented x3, on heparin drip, no chest pain, no shortness a breath, no nausea, no vomiting. 01/15 patient is seen and examined bedside, case discussed with the RN, no acute events overnight. Patient with blood culture positive for Staphylococcus aureus, with urine culture positive for Klebsiella pneumoniae. Patient underwent DRAKE 01/11, tolerated well, LVEF 60-65%, no left ventricle thrombus noted. Right ventricle is severely dilated. Left atrial appendage clot present. No mass or thrombus in the left atrium. No mass or thrombus in the right atrium. Aortic valve is trileaflet, opens well, non coronary cusp leaflet has vegetation that measures 1.8 x 1.1 cm. No mitral valve vegetation, no tricuspid valve vegetation, no pulmonic valve vegetation. Continue heparin drip. Patient evaluated by Cardiothoracic surgeon. Medical management recommended for now. Re-evaluate possibility of aortic valve replacement in the near future. 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 Continue to follow Hematology input and recommendation Discharge plan discussed with case management, patient is uninsured, probably will have to remain admitted until completion of IV antibiotic course. 01/16 Pt seen at bedside, no acute events overnight. Most recent blood cultures are no growth to date. CV surgery suggesting aortic valve replacement may be feasible if patient recent blood cultures no growth for another 5 days. If valve replacement will not be done, patient will need to complete full course of IV antibiotics before discharge as he is unfunded. Vitals and labs are relatively unremarkable REVIEW OF SYSTEMS 12 point review of systems negative unless noted in HPI PHYSICAL EXAM GENERAL APPEARANCE: The patient is awake, alert, and oriented, in no acute cardiopulmonary distress. NEUROLOGICAL: Cranial nerves II-XII grossly intact. Motor is 5/5 in bilateral upper and lower extremities proximal to distal. No sensory deficits. HEENT: Face is symmetric. Pupils are equal and reactive. Extraocular movements are intact. NECK: Supple. No JVD. No thyromegaly. No submental, submandibular, pre- /postauricular, occipital or supraclavicular lymphadenopathy. CHEST: Normal chest expansion. No Telemetry. LUNGS: Absence of any rales, rhonchi or any wheezing. CARDIOVASCULAR: Regular. S1 and S2 normal. No appreciable rubs, murmurs or gallops. ABDOMEN: Soft, nontender, and nondistended. There is no rebound, voluntary guarding, or rigidity. : Deferred. No Ortega. EXTREMITIES: Non-edematous and not cyanotic. No clubbing. Good capillary refill. SKIN: No skin breakdown. Vital Signs (last 8hr) Date Time Temp Pulse Resp B/P (MAP) Pulse Ox O2 Delivery O2 Flow Rate FiO2 01/16/25 11:28 98.1 66 20 134/80 100 Room Air 21 01/16/25 08:49 62 18 01/16/25 07:20 98.2 62 20 136/89 100 Room Air 21 LABS: Laboratory: Test 01/16/25 11:03 01/16/25 07:11 01/16/25 01:11 Range/Units Whole Blood Glucose 107 70-110 MG/DL Hemoglobin 11.8 L 14.0-18.0 g/dL Hematocrit 33.7 L 42-54 % Activated Partial Thromboplast Time 51.4 #H 26.3-35.5 SEC White Blood Count 12.4 H 4.8-10.8 K/uL Red Blood Count 3.70 L 4.50-6.20 MIL/uL Mean Corpuscular Volume 91.1 79-99 fL Mean Corpuscular Hemoglobin 32.2 27.0-33.0 pg Mean Corpuscular Hemoglobin Concent 35.3 32.0-36.0 g/dL Red Cell Distribution Width 13.1 11.0-15.5 % Platelet Count 181 130-400 K/uL Mean Platelet Volume 10.5 7.5-10.5 fL Nucleated Red Blood Cells 0.0 0.0-0.19 % Sodium Level 137 136-145 mmol/L Potassium Level 4.2 3.5-5.1 mmol/L Chloride Level 108 101-111 mmol/L Carbon Dioxide Level 20 L 21-32 mmol/L Blood Urea Nitrogen 35 H 7-18 mg/dL Creatinine 1.2 0.5-1.3 mg/dL Glomerular Filtration Rate Calc 76 >90 mL/min Random Glucose 171 H 70-105 mg/dL Total Calcium 7.4 L 8.5-10.1 mg/dL Magnesium Level 1.70 L 1.80-2.40 mg/dL Total Bilirubin 0.8 0.2-1.0 mg/dL Aspartate Amino Transf (AST/SGOT) 18 10-37 U/L Alanine Aminotransferase (ALT/SGPT) 15 12-78 U/L Alkaline Phosphatase 86 50-136 U/L Total Protein 5.7 L 6.0-8.3 g/dL Albumin 2.0 L 3.5-5.0 g/dL Current Medications Medications (Trade) Dose Ordered Sig/Asya Route PRN Reason Start Time Stop Time Status Last Admin Dose Admin Acetaminophen (TYLenol 325MG TAB) 650 mg Q6H PRN PO TEMPERATURE GREATER THAN 101.5 01/05/25 02:30 02/04/25 02:29 01/15/25 11:15 650 MG Aspirin (Aspirin 81mg Chew Tab) 81 mg DAILY PO 01/05/25 09:00 01/05/25 09:53 DC Aspirin (Aspirin 81mg Ec Tab) 81 mg DAILY PO 01/16/25 09:00 02/15/25 08:59 01/16/25 10:11 81 MG Benzocaine (Cepacol Sore Throat Lozenge) 1 each Q4H PRN MM SORE THROAT 01/05/25 02:30 02/04/25 02:29 Calcium Gluconate 1 gm/Sodium Chloride 100 ml @ 0 mls/hr AD PRN IV Serum Calcium Correction 01/08/25 02:30 02/07/25 02:29 01/08/25 23:32 90 MLS/HR Cefazolin Sodium (Ancef) 2 gm Q12H IVPB 01/07/25 13:30 01/24/25 21:00 01/16/25 01:12 2 GM Chlordiazepoxide HCl (LIBrium 25 MG CAP) 25 mg Q8H PO 01/05/25 02:30 01/11/25 11:39 DC 01/10/25 22:23 25 MG Chlordiazepoxide HCl (LIBrium 25 MG CAP) 25 mg Q8H PRN PO WITHDRAWAL 01/11/25 12:00 01/12/25 02:29 DC Dexamethasone Sodium Phosphate 20 mg/Sodium Chloride 52 ml @ 100 mls/hr DAILY IV 01/09/25 09:00 02/08/25 08:59 01/15/25 09:20 100 MLS/HR Dexamethasone Sodium Phosphate 40 mg/Sodium Chloride 50 ml @ 100 mls/hr DAILY IV 01/06/25 14:00 01/08/25 12:16 DC 01/08/25 09:34 100 MLS/HR Dextrose (D50w) 50 ml AD PRN IV HYPOGLYCEMIA PROTOCOL 01/05/25 10:00 02/04/25 09:59 Doxycycline Hyclate 250 ml @ 125 mls/hr Q12H IV 01/05/25 10:00 01/06/25 21:05 DC 01/06/25 09:30 125 MLS/HR Doxycycline Hyclate 250 ml @ 125 mls/hr Q12H IV 01/06/25 21:30 01/16/25 21:29 01/16/25 10:13 125 MLS/HR Fluconazole (DiFLUCan 100 mg TAB) 200 mg DAILY PO 01/12/25 09:00 02/11/25 08:59 01/16/25 10:10 200 MG Folic Acid (FOLic ACID 1 MG TABLET) 1 mg DAILY PO 01/07/25 10:30 02/06/25 10:29 01/16/25 10:10 1 MG Furosemide (LASix 20MG VIAL) 20 mg Q12H IV 01/07/25 16:00 01/11/25 00:56 DC 01/10/25 19:40 20 MG Glucagon (Glucagon 1mg Kit) 1 mg AD PRN IM HYPOGLYCEMIA PROTOCOL 01/05/25 10:00 02/04/25 09:59 Heparin Sodium/ Dextrose 250 ml @ 0 mls/hr PROTOCOL IV 01/11/25 14:30 02/10/25 14:29 01/16/25 01:17 16 MLS/HR Hydralazine HCl (APRESOLine 20MG INJ) 5 mg Q6H PRN IV For:SBP above 160;DBP above 90 01/05/25 14:30 02/04/25 14:29 01/10/25 22:24 5 MG Hydralazine HCl (APRESOLine 20MG INJ) 10 mg Q6H PRN IV For:SBP above 160;DBP above 90 01/05/25 02:30 01/05/25 09:53 DC Insulin Glargine (LANtus 100 UNITS/ML 10 ML VIAL) 15 units Q12H SQ 01/07/25 21:30 01/09/25 23:18 DC 01/09/25 13:10 15 UNITS Insulin Glargine (LANtus 100 UNITS/ML 10 ML VIAL) 20 units DAILY SQ 01/14/25 09:00 02/13/25 08:59 01/16/25 10:13 20 UNITS Insulin Glargine (LANtus 100 UNITS/ML 10 ML VIAL) 20 units HS SQ 01/06/25 21:00 01/06/25 21:05 DC Insulin Glargine (LANtus 100 UNITS/ML 10 ML VIAL) 20 units HS SQ 01/06/25 21:30 01/07/25 10:24 DC 01/06/25 21:33 20 UNITS Insulin Glargine (LANtus 100 UNITS/ML 10 ML VIAL) 20 units Q12H SQ 01/10/25 09:30 01/10/25 12:58 DC Insulin Glargine (LANtus 100 UNITS/ML 10 ML VIAL) 25 units Q12H SQ 01/10/25 21:30 01/11/25 00:50 DC 01/10/25 22:19 25 UNITS Insulin Glargine (LANtus 100 UNITS/ML 10 ML VIAL) 30 units DAILY SQ 01/12/25 09:00 01/14/25 07:03 DC 01/12/25 11:25 30 UNITS Insulin Glargine (LANtus 100 UNITS/ML 10 ML VIAL) 30 units Q12H SQ 01/11/25 09:30 01/11/25 20:13 DC 01/11/25 10:50 30 UNITS Insulin Human Regular (humuLIN R 100 UNIT/ML 3ML) 5 unit TIDAC SQ 01/14/25 07:30 02/13/25 07:29 01/16/25 11:52 5 UNIT Insulin Human Regular (humuLIN R 100 UNIT/ML 3ML) 8 unit TIDAC SQ 01/11/25 07:30 01/14/25 07:03 DC 01/13/25 19:47 8 UNIT Insulin Human Regular (humuLIN R 100 UNIT/ML 3ML) INSULIN SLIDING SCAL... ACHS SQ 01/05/25 07:30 01/05/25 09:57 DC 01/05/25 07:59 16 UNIT Insulin Human Regular (humuLIN R 100 UNIT/ML 3ML) INSULIN SLIDING SCAL... ACHS SQ 01/05/25 11:30 01/06/25 16:43 DC 01/06/25 11:50 8 UNIT Insulin Human Regular (humuLIN R 100 UNIT/ML 3ML) INSULIN SLIDING SCAL... ACHS SQ 01/06/25 17:00 01/07/25 13:32 DC 01/06/25 17:17 16 UNIT Insulin Human Regular (humuLIN R 100 UNIT/ML 3ML) INSULIN SLIDING SCAL... Q4H SQ 01/11/25 02:00 01/11/25 23:59 DC 01/11/25 20:49 6 UNIT Insulin Human Regular (humuLIN R 100 UNIT/ML 3ML) INSULIN SLIDING SCAL... Q4H SQ 01/11/25 23:59 02/10/25 23:58 01/16/25 01:14 4 UNIT Insulin Human Regular (humuLIN R 100 UNIT/ML 3ML) INSULIN SLIDING SCAL... Q6H6 SQ 01/10/25 18:00 01/11/25 00:50 DC 01/11/25 00:45 10 UNIT Insulin Human Regular 100 unit/ Sodium Chloride 100 ml @ 0 mls/hr AD PRN IV HYPERGLYCEMIA PROTOCOL 01/06/25 19:30 01/10/25 06:00 DC 01/09/25 19:10 16 MLS/HR Lactated Ringer's 1,000 ml @ 100 mls/hr Q10H IV 01/05/25 02:30 01/05/25 09:51 DC 01/05/25 02:30 100 MLS/HR Lactated Ringer's 1,000 ml @ 125 mls/hr Q8H IV 01/10/25 01:30 01/10/25 19:40 DC 01/10/25 13:07 125 MLS/HR Lactobacillus Rhamnosus ([facility]) 1 each DAILY PO 01/12/25 09:00 02/11/25 08:59 01/16/25 10:10 1 EACH Lorazepam (AtiVAN) 1 mg Q4H PRN IVP ALCOHOL WITHDRAWAL PROTOCOL 01/05/25 02:30 01/12/25 02:29 DC Magnesium Sulfate 50 ml @ 0 mls/hr PROTOCOL PRN IV h 01/05/25 02:30 02/04/25 02:29 01/13/25 04:13 25 MLS/HR Morphine Sulfate (morPHINE 2MG SYG) 2 mg Q4H PRN IVP SEVERE PAIN (7-10) 01/05/25 02:30 01/12/25 02:29 DC Multivitamins Therapeutic (Multivitamin Tablet) 1 tab DAILY PO 01/07/25 10:30 02/06/25 10:29 01/16/25 10:10 1 TAB Nicotine (Nicoderm) 21 mg DAILY TD 01/05/25 09:00 02/04/25 08:59 01/16/25 10:11 21 MG Nitroglycerin (Nitrostat) 0.4 mg AD PRN SL CHEST PAIN 01/05/25 02:30 02/04/25 02:29 Ondansetron HCl (zoFRAN 4MG INJ) 4 mg Q6H PRN IV NAUSEA/VOMITING 01/05/25 02:30 02/04/25 02:29 Pantoprazole Sodium (PROTonix 40MG TAB) 40 mg DAILY PO 01/05/25 09:00 02/04/25 08:59 01/16/25 10:11 40 MG Pharmacy Profile Note (Pharmacy Communication) 1 each PROTOCOL PRN MISC ETOH Withdrawal Score changes 01/05/25 02:30 01/12/25 02:29 DC Piperacillin Sod/ Tazobactam Sod (Zosyn 3.375gm+NS 50ml) 3.375 gm Q12H IV 01/05/25 02:30 01/07/25 13:24 DC 01/07/25 02:45 3.375 GM Potassium Phosphate 250 ml @ 42 mls/hr PROTOCOL PRN IV PROTOCOL 01/05/25 10:00 02/04/25 09:59 Potassium Chloride 100 ml @ 100 mls/hr AD PRN IV POTASSIUM PROTOCOL 01/05/25 02:30 01/07/25 10:12 DC Potassium Chloride 100 ml @ 100 mls/hr AD PRN IV POTASSIUM PROTOCOL 01/07/25 10:30 02/06/25 10:29 01/09/25 06:26 100 MLS/HR Potassium Chloride (K-Dur 10meq Sr Tab) 10 meq AD PRN PO POTASSIUM PROTOCOL 01/06/25 09:30 02/04/25 02:29 01/08/25 23:35 10 MEQ Potassium Chloride (K-Dur/Klor-Con 20meq) 10 meq AD PRN PO POTASSIUM PROTOCOL 01/05/25 02:30 01/06/25 09:12 DC 01/05/25 22:15 10 MEQ Potassium Chloride (K-Dur/Klor-Con 20meq) 10 meq AD PRN PO POTASSIUM PROTOCOL 01/07/25 10:30 01/07/25 10:12 DC Potassium Chloride (KCl 10% Elixir 20meq/15ml) 10 meq AD PRN PO POTASSIUM PROTOCOL 01/05/25 02:30 01/07/25 10:12 DC 01/06/25 17:16 10 MEQ Potassium Chloride (KCl 10% Elixir 20meq/15ml) 10 meq AD PRN PO POTASSIUM PROTOCOL 01/07/25 10:30 02/06/25 10:29 01/08/25 15:28 10 MEQ Sodium Bicarbonate (Sodium Bicarbonate) 1,300 mg BID PO 01/11/25 09:00 02/10/25 08:59 01/16/25 10:10 1,300 MG Sodium Chloride 1,000 ml @ 50 mls/hr Q20H IV 01/05/25 10:00 01/10/25 01:33 DC 01/09/25 05:56 50 MLS/HR Sodium Chloride 1,000 ml @ 75 mls/hr [id number] IV 01/11/25 01:00 01/11/25 13:45 DC 01/11/25 01:00 75 MLS/HR Triamcinolone Acetonide (Kenalog/ Aristocort) 1 APPLY TP BID BID TP 01/07/25 11:00 02/06/25 10:59 01/16/25 10:11 0 APPL Vancomycin HCl (Vancomycin Protocol) 1 each AD IV 01/07/25 12:30 01/07/25 12:40 DC DIAGNOSTICS / RADIOLOGY: [ ] ASSESSMENT: Severe sepsis, POA Gram-positive bacteremia secondary to Staphylococcus aureus, POA Hypodense echogenic mobile vegetation to right coronary cusp leaflet on echocardiogram 01/05/2025 Left atrial appendage clot present. on DRAKE 01/11 non coronary cusp leaflet has vegetation that measures 1.8 x 1.1 cm. on DRAKE Urinary tract infection, secondary to Klebsiella pneumoniae, POA Strep pharyngitis, POA ITP, POA Leukocytosis, POA Hyperlactatemia, POA Acute kidney injury, POA Hypokalemia, POA Hyponatremia, POA Hypomagnesemia, POA POA New onset Uncontrolled Diabetes mellitius type2, POA Elevated troponin, POA Cocaine abuse, POA Alcohol abuse, POA Tobacco dependence, POA Significant proteinuria, POA Diabetic nephropathy, POA Gallstones, POA Fidelina esophagitis on EGD 01/11 PLAN: -patient remains admitted to the medical floor. -continue the patient on broad-spectrum IV antibiotics -results of DRAKE reviewed, Left atrial appendage clot present. on DRAKE 01/11, aortic valve is trileaflet, opens well. Non coronary cusp leaflet has vegetation that measures 1.8 x 1.1 cm. on DRAKE 01/11 -continue heparin drip. Patient already evaluated by Cardiothoracic surgeon, continue medical management, we will re-evaluate possibility of aortic valve replacement in the near future. 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 Continue to follow Hematology input and recommendation -renal function slightly improved today, patient evaluated by sheet rock layer, the patient with significant proteinuria on UA consistent with diabetic nephropathy. No acute need for any form of renal replacement therapy. -blood culture positive for Staphylococcus aureus. Urine culture positive for Klebsiella pneumoniae. Continue broad-spectrum IV antibiotics, continue to follow ID input recommendation. -case discussed with case management, patient to complete course of IV antibiotics likely during this hospitalization as the patient is uninsured. Disposition: Pending improvement in clinical condition. We will downgraded to the medical floor. All questions answered time spent: > 35 min ARVIND NOLAND MD Jan 16, 2025 14:09
[2025-01-16] MEDS ORDERED: PHARMACY COMMUNICATION MISC SCH (14:30)
[2025-01-16] MEDS: dexaMETHasone SOD PHOSPHATE 10MG/ML 1ML VIAL ONE ×2 (14:51)
[2025-01-16] MEDS: GENTAmicin 80 MG/NS 100 ML PB 100 ML IV SCH (16:17)
--- NOTE | 2025-01-16 16:54 | PN ---
INFECTIOUS DISEASE PROGRESS NOTE Date of Service: Jan 16, 2025 SUBJECTIVE: This is a 44-year-old male patient who was admitted for chief complaint of weakness and status post fall at home. A Urine culture collected on admission came back positive for Klebsiella pneumoniae and the blood cultures results came back positive for Methicillin sensitive Staphylococcus aureus 2 of 2 sets and the reason for this consult. A 2D echo done on admission showed Aortic valve endocarditis and DRAKE done on 01/11/2025 with findings of aortic valve vegetation and Left atrial appendage clot. Patient was seen and examined at bedside in room 412. Patient is awake, alert and oriented x3. Patient is status post DRAKE on 01/11/2025 with findings of aortic valve vegetation and left atrial appendage clot. Continues on heparin drip. Patient continues with several positive blood cultures. We will discontinue doxycycline and start patient on gentamicin per pharmacy renal dosing and continue on cefazolin and fluconazole. Patient with chronic scalp folliculitis. Will continue to follow patient's care. PHYSICAL EXAM EYES: Anicteric. Pupils equal and reactive. HENT: No oral thrush seen, moist Oral mucosa. NECK: Supple, no JVD or thyromegaly. LUNGS: Good air entry. No rales, no rhonchi. CARDIOVASCULAR: S1, S2 regular. No murmur heard. ABDOMEN: Obese but Soft. CENTRAL NERVOUS SYSTEM: Awake, alert, oriented x 3. SKIN: No rashes, no swelling. LYMPHATICS: No peripheral lymphadenopathy MUSCULOSKELETAL: No joint swelling, erythema or tenderness. Weakness. EXTREMITIES: No cyanosis or clubbing. Edematous. BACK: No deformity, no pressure ulcer. GENITOURINARY: No dysuria or hematuria. Vital Sign (Last 12 Hours) 01/16/25 01/16/25 01/16/25 07:20 08:49 11:28 Temp 98.2 98.1 Pulse 62 62 66 Resp 20 18 20 B/P (MAP) 136/89 134/80 Pulse Ox 100 100 O2 Delivery Room Air Room Air FiO2 21 21 Intake & Output (last 24hrs) 01/15/25 01/15/25 01/16/25 15:00 23:00 07:00 Intake Total 1206.5 ml 160.6 ml Output Total 2 ml Balance 1204.5 ml 160.6 ml LABS: Laboratory: Test 01/16/25 16:08 01/16/25 12:35 01/16/25 07:11 01/16/25 01:11 Range/Units Whole Blood Glucose 92 70-110 MG/DL Activated Partial Thromboplast Time 89.6 #*H 26.3-35.5 SEC Hemoglobin 11.8 L 14.0-18.0 g/dL Hematocrit 33.7 L 42-54 % White Blood Count 12.4 H 4.8-10.8 K/uL Red Blood Count 3.70 L 4.50-6.20 MIL/uL Mean Corpuscular Volume 91.1 79-99 fL Mean Corpuscular Hemoglobin 32.2 27.0-33.0 pg Mean Corpuscular Hemoglobin Concent 35.3 32.0-36.0 g/dL Red Cell Distribution Width 13.1 11.0-15.5 % Platelet Count 181 130-400 K/uL Mean Platelet Volume 10.5 7.5-10.5 fL Nucleated Red Blood Cells 0.0 0.0-0.19 % Sodium Level 137 136-145 mmol/L Potassium Level 4.2 3.5-5.1 mmol/L Chloride Level 108 101-111 mmol/L Carbon Dioxide Level 20 L 21-32 mmol/L Blood Urea Nitrogen 35 H 7-18 mg/dL Creatinine 1.2 0.5-1.3 mg/dL Glomerular Filtration Rate Calc 76 >90 mL/min Random Glucose 171 H 70-105 mg/dL Total Calcium 7.4 L 8.5-10.1 mg/dL Magnesium Level 1.70 L 1.80-2.40 mg/dL Total Bilirubin 0.8 0.2-1.0 mg/dL Aspartate Amino Transf (AST/SGOT) 18 10-37 U/L Alanine Aminotransferase (ALT/SGPT) 15 12-78 U/L Alkaline Phosphatase 86 50-136 U/L Total Protein 5.7 L 6.0-8.3 g/dL Albumin 2.0 L 3.5-5.0 g/dL ASSESSMENT: Methicillin-susceptible Staphylococcus aureus bacteremia status post DRAKE on 01/11/2025 with findings of aortic valve vegetation and Left atrial appendage clot. Aortic valve endocarditis on 2D echo. Urinary tract infection with Klebsiella pneumoniae. Chronic scalp folliculitis. Leukocytosis. Thrombocytopenia requiring platelet transfusion, resolving. Acute on chronic renal failure, resolving. Substance abuse, Cocaine and ETOH. Streptococcus viral infection. Uncontrolled diabetes mellitus. Debility. PLAN: Discontinue doxycycline. Start gentamicin per pharmacy renal dosing. Continue cefazolin IV. Continue fluconazole. Patient will need 6 weeks of IV antibiotics. Continues on heparin drip. Avoid nephrotoxic medications. Continue GI prophylaxis. [employer] following patient. Continue monitoring glucose levels. We will monitor electrolytes. This case was reviewed and discussed with my supervising physician and the above assessment and plan was formulated and agreed upon. ATTESTATION BY PHYSICIAN I have seen and examined the patient. I reviewed the documentation, medical decision making, and treatment plan as noted by the mid-level provider above. I agree with the findings and plan of care. JANUARY CARLSON MD, MIRTA L PLANNER CHIEF Jan 16, 2025 16:54
--- NOTE | 2025-01-16 18:47 | PN ---
[facility] PROGRESS NOTE Date Patient Seen: Jan 16, 2025 Time of Visit: 12:43 Supervising Physician: DR. 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 Uncontrolled Diabetes mellitius type2, POA HgA1C 8.5 NTEMI Type II AK POA PolySubstance abuse, POA, (cocaine/Marijuana) Alcohol dependence, POA Tobacco dependence, POA Acute cholecystitis on HIDA scan 01/07/25 POA Hepatomegaly with hepato steatosis MELD score on admission of 31 Morbid obesity Noncompliance behavior PLAN SUMMARY: Monitor for any signs of bleeding Supplemental oxygen as needed Wean off as tolerated Duo nebs as needed Continue BiPAP nightly and p.r.n. IS while awake Continue cefazolin Continue doxycycline Continue fluconazole Patient will need a pulmonary f/u as an outpatient for evaluation of suspected sleep apnea INTERVAL HISTORY: 01/11/25- patient is awake alert and oriented x3. Post EGD and DRAKE found to have vegetation in the aortic valve and thrombus in the KARINA, and LVEF of 60- 65%.. Per Hematology started heparin gtt per protocol today. For now patient is hemodynamically stable afebrile heart rate in the 80s respiratory rate of 18 saturating 99% on room air. Patient has a urine output of 4.4 L last night and a balance of-2.2 L. He had 2 bowel movements this morning. Pt continues with ancef IV for MSSA endocarditis. He will need at least 6 weeks of IV abx. WBCs are 12.5 H&H is normal platelet count is 113 K. sodium 145 potassium of 4 carbon dioxide of 22 BUN 59 creatinine 1.8 and GFR of 47 glucose of 102 mg/dL. Patient is stable downgrade from ICU to PCCU. 01/12/25 Patient is a 44 year old gentleman who initially presented with endocarditis and thrombus in the KARINA, placed on Heparin drip by [employer] Operator since platelets count are better there is no report of fever, chills, nausea or vomiting, plan is to continue with CIWA protocol, monitor WBC, kidney function has improved, BS is stable patient remains on room air and antibiotic therapy as well antifungal medication since he is positive for werner in the esophagus, Midline has been inserted for antibiotic otherwise patient requires to be stable in order to evaluate if he will be candidate for surgery . 01/13/25 Patient is 44 year old male awake alert, well oriented who continues to be on antibiotic due to Endocarditis he has no fever, chills, no chest pain or SOB at this moment, has been follow by Dr. Quinn, Dr. Javier and Dr. Garcia offer no new issues he might need CV surgery , we will follow up closely. 01/14 - patient is seen lying in bed resting quietly currently on room air with no signs of acute distress. Patient continues to utilize BiPAP nightly and as needed. Patient continues on broad-spectrum antibiotics for endocarditis as well as Staphylococcus bacteremia. Patient had remains afebrile. Patient denies chest discomfort, chest pain or dyspnea at this time. No acute changes reported overnight. Patient was evaluated by Cardiovascular surgery and given his chronic folliculitis recommend treatment prior any further interventions. Patient had a CT scan of the chest which shows no evidence of pulmonary nodule or effusion seen. Patient was started on heparin drip secondary to the left atrial appendage thrombus. We will continue to follow up with you. 01/15 Patient is awake, alert, not in distress, no chest pain, denies fever, continues to be on antibiotic therapy due to cardiac vegetation plan is to continue monitoring cultures closely to confirm clear up in order to decide for surgical procedure as per CV surgeon recommendations otherwise no new issues reported. 01/16 Patient is awake,alert, well oriented, obese, who continues to be on antibiotic therapy due to Endocarditis, on heparin drip due to Thrombus in the KARINA follow up by [facility] plan is to repeat DRAKE, otherwise suspected for sleep apnea therefore he has been recommended to follow up at the pulmonary clinic as an outpatient for sleep studies, he will continue with current medical treatment and monitor closely for an signs or site of bleeding due to heparin drip. REVIEW OF SYSTEMS: 12 point ROS reviewed with patient. Pertinent positives mentioned above. Oth erwise negative. PHYSICAL EXAM: GENERAL: alert, weak, awake oriented x 3 HEENT: EOMI, Sclera non icteric, moist mucosa NECK: Supple, no JVD, trachea midline LUNGS: Clear breath sounds bilaterally. No wheezes HEART: Regular rate and rhythm. Normal S1 and S2, without murmurs ABD: Abdomen soft, nontender. Bowel sounds present EXT: No clubbing cyanosis or edema NEURO: Alert and oriented to person, follows commands Vital Signs (last 8hr) Date Time Temp Pulse Resp B/P (MAP) Pulse Ox O2 Delivery O2 Flow Rate FiO2 01/16/25 17:53 100 Room Air* 0 21 01/16/25 15:20 97.5 68 20 147/89 100 Room Air 21 01/16/25 11:28 98.1 66 20 134/80 100 Room Air 21 LABS: Hematology Labs: Test 01/16/25 07:11 01/16/25 01:11 Range/Units Hemoglobin 11.8 L 14.0-18.0 g/dL Hematocrit 33.7 L 42-54 % White Blood Count 12.4 H 4.8-10.8 K/uL Red Blood Count 3.70 L 4.50-6.20 MIL/uL Mean Corpuscular Volume 91.1 79-99 fL Mean Corpuscular Hemoglobin 32.2 27.0-33.0 pg Mean Corpuscular Hemoglobin Concent 35.3 32.0-36.0 g/dL Red Cell Distribution Width 13.1 11.0-15.5 % Platelet Count 181 130-400 K/uL Mean Platelet Volume 10.5 7.5-10.5 fL Nucleated Red Blood Cells 0.0 0.0-0.19 % Chemistry Labs: Test 01/16/25 16:08 01/16/25 01:11 Range/Units Whole Blood Glucose 92 70-110 MG/DL Sodium Level 137 136-145 mmol/L Potassium Level 4.2 3.5-5.1 mmol/L Chloride Level 108 101-111 mmol/L Carbon Dioxide Level 20 L 21-32 mmol/L Blood Urea Nitrogen 35 H 7-18 mg/dL Creatinine 1.2 0.5-1.3 mg/dL Glomerular Filtration Rate Calc 76 >90 mL/min Random Glucose 171 H 70-105 mg/dL Total Calcium 7.4 L 8.5-10.1 mg/dL Magnesium Level 1.70 L 1.80-2.40 mg/dL Total Bilirubin 0.8 0.2-1.0 mg/dL Aspartate Amino Transf (AST/SGOT) 18 10-37 U/L Alanine Aminotransferase (ALT/SGPT) 15 12-78 U/L Alkaline Phosphatase 86 50-136 U/L Total Protein 5.7 L 6.0-8.3 g/dL Albumin 2.0 L 3.5-5.0 g/dL Coagulation Labs: Test 01/16/25 12:35 Range/Units Activated Partial Thromboplast Time 89.6 #*H 26.3-35.5 [facility] / RADIOLOGY RESULTS: [ ] PLAN Monitor for any signs of bleeding Continues with antibiotic and antifungal treatment follow live games dealer recommendations follow up with foundation maker for further recommendations [facility] protocol NEURO: Minimize central acting medications as possible. Maintain fall precautions, adequate lighting during the day PULMONARY: Supplemental 02 as needed. Maintain aspiration precautions at all times CARDIOVASCULAR: Follow hemodynamics. Vital signs per facility protocol GI & NUTRITION: Continue with nutritional support. Continue stool softeners and laxatives as needed. KIDNEYS & ELECTROLYTES: Strict monitoring of intake, output and overall fluid balance. Avoid nephrotoxic medications to the extent possible. Medications to be dosed according to renal function. Monitor electrolytes and replace as needed ENDOCRINE: Maintain blood glucose between 100-180 at all times. Hypoglycemia protocol in place INFECTIOUS DISEASE: Trend temperature, WBC and procalcitonin level Follow cultures, deescalate antibiotics as soon as possible. Panculture if new onset fever ONCOLOGY/HEMATOLOGY/COAGULATION: Monitor for s/s of bleeding Monitor hemoglobin, coagulation studies as needed SKIN: Pressure ulcer prevention per facility protocol Specialty mattress ORTHO/REHAB: Continue PT/OT Prophylaxis: Continue GI and DVT prophylaxis Code Status: Full Resuscitation Dispo: As per attending Total time spent greater than 35 minutes ATTESTATION BY PHYSICIAN Documentation assistance provided by a scribe, information recorded by the scribe was done at my direction and has been reviewed and validated by me." YAS CASTILLO MD I personally scribed for YAS CASTILLO MD ([email or web address]) on 01/16/25 at 18:47. Electronically submitted by Kamilah Diop ([id number]). YAS CASTILLO MD Jan 16, 2025 18:47
[2025-01-16] MEDS: ceFAZolin SODIUM 2 GM VIAL IVPB SCH (21:29)
--- NOTE | 2025-01-16 23:31 | PN ---
Mr. Jin is a 44-year-old male that was seen and examined today on 01/05/2025. Patient is a good historian and personal health. Patient is a good historian and personal health. Patient states that he came to the emergency department at the behest of his daughter. Patient's chief complaint is weakness. Onset was Thursday12/30/2024. Location is to entire body. Duration is constant. Character is described as, " today Orion needed help to get out of the sofa and out of the shower. I also fell down once. "There was no alleviating factors. Symptoms are aggravated with physical activity. Patient denies any associated chest pain or shortness and breath. I was consulted because of leukocytosis and severe thrombocytopenia. This patient have have any alcoholism. Patient also on cocaine. It seems the patient may be have pyelonephritis by CT scan with the patient was started on antibiotic treatment. This patient was found to have thrombocytopenia. Which was multifactorial including cirrhosis of the liver and possible ITP. Platelet count improved. This patient receiving dexamethasone 20 mg IV daily. Patient was found to have bacteremia. With the 2D echo showing possible vegetation of the valve. Patient have DRAKE which showed patient to have intra-atrial thrombosis. Patient receiving heparin drip. Patient receiving antibiotic treatment. Blood culture was positive. Surgery is not planned to do for this patient at this time PE General Appearance: Alert, Oriented X3, Cooperative, moderate distress HEENT: Atraumatic, PERRLA, EOMI, Other (Mucous membranes dry and cracked) Respiratory: Clear to auscultation, Normal air movement, NL respiratory effort Cardiovascular: Normal S1, Normal S2, Other (Tachycardia) Abdominal: Normal bowel sounds, Soft, No tenderness Extremities: No edema Skin: No significant lesion Neuro: Normal gait, Normal speech, Strength at 5/5 X4 ext, Sensation intact, Cranial nerves 3-12 NL Psych/Mental Status: Mental status NL, Mood NL, Thoughts/Content NL Assessment 1. Thrombocytopenia. 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 2. Acute on chronic renal failure 4. Severe sepsis. Possible bacteremia and possible endocarditis 5. Leukocytosis 6. Cocaine abuse 7. Alcohol abuse 8. Hepatomegaly 9. Splenomegaly 10. Bacteremia with possibility of endocarditis. 11. DRAKE showing intra-atrial thrombus which could be infection. The patient is receiving heparin drip. Plan 1. Patient with ITP. Patient to continue to receive dexamethasone. This patient will need tapering dose of prednisone especially with the platelet count within normal. 2. There was hypersegmented neutrophils. This patient to Continue on folic acid 1 mg p.o. daily and vitamin B12 1000 mcg p.o. daily. 3. Please do not transfuse any platelet 4. It seems there is no plan for surgery to be done. So we could maybe change this patient to oral anticoagulation such as Eliquis 10 mg p.o. twice daily for 1 week then 5 mg p.o. twice daily for at least 1 year 5. Continue antibiotic treatment as per infectious disease specialist Vitals/Labs Vital Signs Date Time Temp Pulse Resp B/P (MAP) Pulse Ox O2 Delivery O2 Flow Rate FiO2 01/16/25 20:00 97.9 80 20 144/87 100 Room Air 01/16/25 17:53 0 21 Laboratory Tests 01/16/25 01:11 01/16/25 07:11 Medications Current Medications Sodium Chloride 1,000 ml @ 125 mls/hr ONCE ONCE IV Last administered on 01/05/25at 00:13; Start 01/04/25 at 23:00; Stop 01/05/25 at 06:59; Status DC Aspirin 81 mg ONCE ONCE PO Last administered on 01/05/25at 00:14; Start 01/04/25 at 23:00; Stop 01/04/25 at 23:01; Status DC Ondansetron HCl 4 mg ONCE ONCE IVP Last administered on 01/05/25at 00:13; Start 01/04/25 at 23:00; Stop 01/04/25 at 23:01; Status DC Potassium Chloride 100 ml @ 50 mls/hr ONCE ONCE IV Last administered on 01/05/25at 00:13; Start 01/05/25 at 00:00; Stop 01/05/25 at 01:59; Status DC Potassium Chloride 100 ml @ 50 mls/hr ONCE ONCE IV Last administered on 01/05/25at 03:12; Start 01/05/25 at 00:00; Stop 01/05/25 at 01:59; Status DC Thiamine HCl 100 mg ONCE ONCE IVP Last administered on 01/05/25at 01:01; Start 01/05/25 at 00:00; Stop 01/05/25 at 00:01; Status DC Acetaminophen 500 mg STK-MED ONCE .ROUTE; Start 01/05/25 at 00:28; Stop 01/05/25 at 00:28; Status DC Cefepime HCl 1 gm ONCE ONCE IVPB Last administered on 01/05/25at 01:01; Start 01/05/25 at 01:00; Stop 01/05/25 at 01:02; Status DC Vancomycin HCl 750 mg ONCE ONCE IVPB Last administered on 01/05/25at 02:12; Start 01/05/25 at 01:00; Stop 01/05/25 at 01:02; Status DC Sodium Chloride 250 ml ONCE ONCE IVPB Last administered on 01/05/25at 02:12; Start 01/05/25 at 01:00; Stop 01/05/25 at 01:02; Status DC Acetaminophen 1,000 mg ONCE ONCE PO Last administered on 01/05/25at 00:30; Start 01/05/25 at 01:00; Stop 01/05/25 at 01:02; Status DC Aspirin 81 mg DAILY PO; Start 01/05/25 at 09:00; Stop 01/05/25 at 09:53; Status DC Nitroglycerin 0.4 mg AD PRN SL; Start 01/05/25 at 02:30; Stop 02/04/25 at 02:29 Aspirin 162 mg ONCE ONCE PO Last administered on 01/05/25at 03:06; Start 01/05/25 at 02:30; Stop 01/05/25 at 02:31; Status DC Insulin Human Regular INSULIN SLIDING SCAL... ACHS SQ Last administered on 01/05/25at 07:59; Start 01/05/25 at 07:30; Stop 01/05/25 at 09:57; Status DC Lactated Ringer's 3,429 ml @ 1,143 mls/hr ONCE ONCE IV Last administered on 01/05/25at 03:12; Start 01/05/25 at 02:30; Stop 01/05/25 at 05:29; Status DC Piperacillin Sod/ Tazobactam Sod 3.375 gm Q12H IV Last administered on 01/07/25at 02:45; Start 01/05/25 at 02:30; Stop 01/07/25 at 13:24; Status DC Potassium Chloride 100 ml @ 100 mls/hr AD PRN IV; Start 01/05/25 at 02:30; Stop 01/07/25 at 10:12; Status DC Potassium Chloride 10 meq AD PRN PO Last administered on 01/06/25at 17:16; Start 01/05/25 at 02:30; Stop 01/07/25 at 10:12; Status DC Potassium Chloride 10 meq AD PRN PO Last administered on 01/05/25at 22:15; Start 01/05/25 at 02:30; Stop 01/06/25 at 09:12; Status DC Acetaminophen 650 mg Q6H PRN PO Last administered on 01/16/25at 17:26; Start 01/05/25 at 02:30; Stop 02/04/25 at 02:29 Pantoprazole Sodium 40 mg DAILY PO Last administered on 01/16/25at 10:11; Start 01/05/25 at 09:00; Stop 02/04/25 at 08:59 Ondansetron HCl 4 mg Q6H PRN IV; Start 01/05/25 at 02:30; Stop 02/04/25 at 02:29 Morphine Sulfate 2 mg Q4H PRN IVP; Start 01/05/25 at 02:30; Stop 01/12/25 at 02:29; Status DC Hydralazine HCl 10 mg Q6H PRN IV; Start 01/05/25 at 02:30; Stop 01/05/25 at 09:53; Status DC Benzocaine 1 each Q4H PRN MM; Start 01/05/25 at 02:30; Stop 02/04/25 at 02:29 Magnesium Sulfate 50 ml @ 0 mls/hr PROTOCOL PRN IV Last administered on 01/13/25at 04:13; Start 01/05/25 at 02:30; Stop 02/04/25 at 02:29 Lactated Ringer's 1,000 ml @ 100 mls/hr Q10H IV Last administered on 01/05/25at 02:30; Start 01/05/25 at 02:30; Stop 01/05/25 at 09:51; Status DC Chlordiazepoxide HCl 25 mg Q8H PO Last administered on 01/10/25at 22:23; Start 01/05/25 at 02:30; Stop 01/11/25 at 11:39; Status DC Lorazepam 1 mg Q4H PRN IVP; Start 01/05/25 at 02:30; Stop 01/12/25 at 02:29; Status DC Pharmacy Profile Note 1 each PROTOCOL PRN MISC; Start 01/05/25 at 02:30; Stop 01/12/25 at 02:29; Status DC Nicotine 21 mg DAILY TD Last administered on 01/16/25at 10:11; Start 01/05/25 at 09:00; Stop 02/04/25 at 08:59 Sodium Chloride 1,000 ml @ 50 mls/hr Q20H IV Last administered on 01/09/25at 05:56; Start 01/05/25 at 10:00; Stop 01/10/25 at 01:33; Status DC Potassium Phosphate 250 ml @ 42 mls/hr PROTOCOL PRN IV; Start 01/05/25 at 10:00; Stop 02/04/25 at 09:59 Hydralazine HCl 5 mg Q6H PRN IV Last administered on 01/10/25at 22:24; Start 01/05/25 at 14:30; Stop 02/04/25 at 14:29 Doxycycline Hyclate 250 ml @ 125 mls/hr Q12H IV Last administered on 01/06/25at 09:30; Start 01/05/25 at 10:00; Stop 01/06/25 at 21:05; Status DC Potassium Chloride 40 meq ONCE ONCE PO Last administered on 01/05/25at 10:25; Start 01/05/25 at 10:00; Stop 01/05/25 at 10:01; Status DC Potassium Chloride 100 ml @ 50 mls/hr ONCE ONCE IV Last administered on 01/05/25at 10:25; Start 01/05/25 at 10:00; Stop 01/05/25 at 11:59; Status DC Dextrose 50 ml AD PRN IV; Start 01/05/25 at 10:00; Stop 02/04/25 at 09:59 Glucagon 1 mg AD PRN IM; Start 01/05/25 at 10:00; Stop 02/04/25 at 09:59 Insulin Human Regular INSULIN SLIDING SCAL... ACHS SQ Last administered on 01/06/25at 11:50; Start 01/05/25 at 11:30; Stop 01/06/25 at 16:43; Status DC Dexamethasone Sodium Phosphate 10 mg ONCE ONCE IVP Last administered on 01/05/25at 17:27; Start 01/05/25 at 13:30; Stop 01/05/25 at 14:03; Status DC Insulin Glargine 20 units HS SQ; Start 01/06/25 at 21:00; Stop 01/06/25 at 21:05; Status DC Potassium Chloride 10 meq AD PRN PO Last administered on 01/08/25at 23:35; Start 01/06/25 at 09:30; Stop 02/04/25 at 02:29 Dexamethasone Sodium Phosphate 40 mg DAILY ONCE IV; Start 01/07/25 at 09:00; Stop 01/06/25 at 13:27; Status DC Dexamethasone Sodium Phosphate 40 mg/Sodium Chloride 50 ml @ 100 mls/hr DAILY IV Last administered on 01/08/25at 09:34; Start 01/06/25 at 14:00; Stop 01/08/25 at 12:16; Status DC Insulin Human Regular INSULIN SLIDING SCAL... ACHS SQ Last administered on 01/06/25at 17:17; Start 01/06/25 at 17:00; Stop 01/07/25 at 13:32; Status DC Insulin Human Regular 100 unit/ Sodium Chloride 100 ml @ 0 mls/hr AD PRN IV Last administered on 01/09/25at 19:10; Start 01/06/25 at 19:30; Stop 01/10/25 at 06:00; Status DC Insulin Glargine 20 units HS SQ Last administered on 01/06/25at 21:33; Start 01/06/25 at 21:30; Stop 01/07/25 at 10:24; Status DC Doxycycline Hyclate 250 ml @ 125 mls/hr Q12H IV Last administered on 01/16/25at 10:13; Start 01/06/25 at 21:30; Stop 01/16/25 at 14:23; Status DC Chlordiazepoxide HCl 25 mg STK-MED ONCE .ROUTE; Start 01/07/25 at 02:35; Stop 01/07/25 at 02:41; Status DC Piperacillin Sod/ Tazobactam Sod 50 ml @ As Directed STK-MED ONCE .ROUTE; Start 01/07/25 at 02:39; Stop 01/07/25 at 02:41; Status DC Potassium Chloride 0 ml @ As Directed STK-MED ONCE IV; Start 01/07/25 at 07:28; Stop 01/07/25 at 07:31; Status DC Potassium Chloride 40 meq ONCE ONCE PO Last administered on 01/07/25at 09:44; Start 01/07/25 at 10:00; Stop 01/07/25 at 10:01; Status DC Potassium Chloride 100 ml @ 100 mls/hr AD PRN IV Last administered on 01/09/25at 06:26; Start 01/07/25 at 10:30; Stop 02/06/25 at 10:29 Potassium Chloride 10 meq AD PRN PO Last administered on 01/08/25at 15:28; Start 01/07/25 at 10:30; Stop 02/06/25 at 10:29 Potassium Chloride 10 meq AD PRN PO; Start 01/07/25 at 10:30; Stop 01/07/25 at 10:12; Status DC Insulin Glargine 15 units Q12H SQ Last administered on 01/09/25at 13:10; Start 01/07/25 at 21:30; Stop 01/09/25 at 23:18; Status DC Insulin Glargine 10 units ONCE ONCE SQ Last administered on 01/07/25at 10:40; Start 01/07/25 at 10:30; Stop 01/07/25 at 10:31; Status DC Thiamine HCl 300 mg DAILY ONCE IVP Last administered on 01/07/25at 10:39; Start 01/07/25 at 10:30; Stop 01/07/25 at 10:31; Status DC Multivitamins Therapeutic 1 tab DAILY PO Last administered on 01/16/25at 10:10; Start 01/07/25 at 10:30; Stop 02/06/25 at 10:29 Folic Acid 1 mg DAILY PO Last administered on 01/16/25at 10:10; Start 01/07/25 at 10:30; Stop 02/06/25 at 10:29 Triamcinolone Acetonide 1 APPLY TP BID BID TP Last administered on 01/16/25at 21:30; Start 01/07/25 at 11:00; Stop 02/06/25 at 10:59 Vancomycin HCl 1 each AD IV; Start 01/07/25 at 12:30; Stop 01/07/25 at 12:40; Status DC Cefazolin Sodium 2 gm Q12H IVPB Last administered on 01/16/25at 01:12; Start 01/07/25 at 13:30; Stop 01/16/25 at 14:43; Status DC Furosemide 20 mg Q12H IV Last administered on 01/10/25at 19:40; Start 01/07/25 at 16:00; Stop 01/11/25 at 00:56; Status DC Calcium Gluconate 1 gm/Sodium Chloride 100 ml @ 0 mls/hr AD PRN IV Last administered on 01/08/25at 23:32; Start 01/08/25 at 02:30; Stop 02/07/25 at 02:29 Dexamethasone Sodium Phosphate 20 mg/Sodium Chloride 52 ml @ 100 mls/hr DAILY IV Last administered on 01/16/25at 14:50; Start 01/09/25 at 09:00; Stop 02/08/25 at 08:59 Insulin Glargine 20 units Q12H SQ; Start 01/10/25 at 09:30; Stop 01/10/25 at 12:58; Status DC Lactated Ringer's 1,000 ml @ 125 mls/hr Q8H IV Last administered on 01/10/25at 13:07; Start 01/10/25 at 01:30; Stop 01/10/25 at 19:40; Status DC Lactated Ringer's 1,000 ml BOLUS ONCE IV Last administered on 01/10/25at 09:20; Start 01/10/25 at 07:30; Stop 01/10/25 at 07:31; Status DC Lidocaine HCl 100 mg STK-MED ONCE .ROUTE; Start 01/10/25 at 08:01; Stop 01/10/25 at 08:02; Status DC Propofol 200 mg STK-MED ONCE IV; Start 01/10/25 at 08:02; Stop 01/10/25 at 08:02; Status DC Glycopyrrolate 1 mg STK-MED ONCE .ROUTE; Start 01/10/25 at 08:02; Stop 01/10/25 at 08:02; Status DC Ketamine HCl 50 mg STK-MED ONCE .ROUTE; Start 01/10/25 at 08:03; Stop 01/10/25 at 08:03; Status DC Insulin Glargine 25 units Q12H SQ Last administered on 01/10/25at 22:19; Start 01/10/25 at 21:30; Stop 01/11/25 at 00:50; Status DC Insulin Human Regular INSULIN SLIDING SCAL... Q6H6 SQ Last administered on 01/11/25at 00:45; Start 01/10/25 at 18:00; Stop 01/11/25 at 00:50; Status DC Insulin Glargine 30 units Q12H SQ Last administered on 01/11/25at 10:50; Start 01/11/25 at 09:30; Stop 01/11/25 at 20:13; Status DC Insulin Human Regular INSULIN SLIDING SCAL... Q4H SQ Last administered on 01/11/25at 20:49; Start 01/11/25 at 02:00; Stop 01/11/25 at 23:59; Status DC Sodium Chloride 1,000 ml @ 75 mls/hr [id number] IV Last administered on 01/11/25at 01:00; Start 01/11/25 at 01:00; Stop 01/11/25 at 13:45; Status DC Sodium Bicarbonate 1,300 mg BID PO Last administered on 01/16/25at 21:29; Start 01/11/25 at 09:00; Stop 02/10/25 at 08:59 Insulin Human Regular 8 unit TIDAC SQ Last administered on 01/13/25at 19:47; Start 01/11/25 at 07:30; Stop 01/14/25 at 07:03; Status DC Lidocaine HCl 100 mg STK-MED ONCE .ROUTE; Start 01/11/25 at 07:00; Stop 01/11/25 at 07:00; Status DC Atropine Sulfate 1 mg STK-MED ONCE IVP; Start 01/11/25 at 07:00; Stop 01/11/25 at 07:00; Status DC Propofol 200 mg STK-MED ONCE IV; Start 01/11/25 at 07:00; Stop 01/11/25 at 07:00; Status DC Succinylcholine Chloride 200 mg STK-MED ONCE .ROUTE; Start 01/11/25 at 07:00; Stop 01/11/25 at 07:00; Status DC Ketamine HCl 50 mg STK-MED ONCE .ROUTE; Start 01/11/25 at 07:00; Stop 01/11/25 at 07:01; Status DC Glycopyrrolate 1 mg STK-MED ONCE .ROUTE; Start 01/11/25 at 07:01; Stop 01/11/25 at 07:01; Status DC Sodium Chloride 10 ml STK-MED ONCE .ROUTE; Start 01/11/25 at 07:01; Stop 01/11/25 at 07:01; Status DC Phenylephrine HCl 10 mg STK-MED ONCE IV; Start 01/11/25 at 07:01; Stop 01/11/25 at 07:01; Status DC Midazolam HCl 2 mg STK-MED ONCE .ROUTE; Start 01/11/25 at 07:08; Stop 01/11/25 at 07:08; Status DC Ondansetron HCl 4 mg STK-MED ONCE .ROUTE; Start 01/11/25 at 07:34; Stop 01/11/25 at 07:35; Status DC Chlordiazepoxide HCl 25 mg Q8H PRN PO; Start 01/11/25 at 12:00; Stop 01/12/25 at 02:29; Status DC Heparin Sodium/ Dextrose 250 ml @ 0 mls/hr PROTOCOL IV Last administered on 01/16/25at 21:34; Start 01/11/25 at 14:30; Stop 02/10/25 at 14:29 Fluconazole 200 mg ONCE ONCE PO Last administered on 01/11/25at 15:18; Start 01/11/25 at 15:30; Stop 01/11/25 at 15:31; Status DC Fluconazole 200 mg DAILY PO Last administered on 01/16/25at 10:10; Start 01/12/25 at 09:00; Stop 02/11/25 at 08:59 Lactobacillus Rhamnosus 1 each DAILY PO Last administered on 01/16/25at 10:10; Start 01/12/25 at 09:00; Stop 02/11/25 at 08:59 Insulin Glargine 30 units DAILY SQ Last administered on 01/12/25at 11:25; Start 01/12/25 at 09:00; Stop 01/14/25 at 07:03; Status DC Insulin Human Regular INSULIN SLIDING SCAL... Q4H SQ Last administered on 01/16/25at 21:31; Start 01/11/25 at 23:59; Stop 02/10/25 at 23:58 Heparin Sodium (Porcine) 4,000 unit ONCE ONCE IV Last administered on 01/12/25at 22:36; Start 01/12/25 at 22:30; Stop 01/12/25 at 22:31; Status DC Iohexol 35,000 mg STK-MED ONCE IV; Start 01/13/25 at 12:56; Stop 01/13/25 at 12:57; Status DC Insulin Glargine 20 units DAILY SQ Last administered on 01/16/25at 10:13; Start 01/14/25 at 09:00; Stop 02/13/25 at 08:59 Insulin Human Regular 5 unit TIDAC SQ Last administered on 01/16/25at 11:52; Start 01/14/25 at 07:30; Stop 02/13/25 at 07:29 Aspirin 81 mg DAILY PO Last administered on 01/16/25at 10:11; Start 01/16/25 at 09:00; Stop 02/15/25 at 08:59 Pharmacy Profile Note 1 each ONCE MISC; Start 01/16/25 at 14:30; Stop 01/16/25 at 15:12; Status DC Dexamethasone Sodium Phosphate 10 mg STK-MED ONCE .ROUTE; Start 01/16/25 at 14:38; Stop 01/16/25 at 14:38; Status DC Dexamethasone Sodium Phosphate 10 mg STK-MED ONCE .ROUTE; Start 01/16/25 at 14:39; Stop 01/16/25 at 14:40; Status DC Cefazolin Sodium 2 gm Q8H IVPB Last administered on 01/16/25at 21:29; Start 01/16/25 at 21:30; Stop 01/26/25 at 21:29 Gentamicin Sulfate/Sodium Chloride 100 ml @ 200 mls/hr Q12H IV Last administered on 01/16/25at 16:17; Start 01/16/25 at 15:30; Stop 01/26/25 at 15:29 Acetaminophen 650 mg Q6H PRN PO; Start 01/16/25 at 17:30; Stop 02/15/25 at 17:29 LEOPOLDO AGUILAR MD Jan 16, 2025 23:31
[2025-01-17] VITALS (9 sets, daily range): BP systolic 108–131; BP diastolic 74–85; PULSE 64–80; RESP 18–20; TEMP 97.6–98.6; O2SAT 99–100
--- NOTE | 2025-01-17 07:06 | PN ---
[facility] CARDIOLOGY PROGRESS NOTE Date Patient Seen: Jan 17, 2025 Time of Visit: 07:04 Interval History: [Hematology starting oral anticoagulation today for KARINA thrombus. Physical Examination: GENERAL: [No acute distress.] HEAD: [Normal with no signs of head trauma.] EYES: [PERRLA, EOMI, conjunctiva and sclera normal.] ENT: [Hearing grossly intact, normal oropharynx.] NECK: [Supple without JVD. There is no tenderness, lymphadenopathy, or masses. No thyromegaly. Normal carotid upstrokes without bruits.] LUNGS: [Clear breath sounds bilaterally. There are right basilar rales one third of the way up the chest. No wheezes, or rhonchi.] HEART: [Normal rate and rhythm. Normal S1 and S2 without mumurs, gallop or rub.] VASC: [Peripheral pulses +2 bilaterally.] ABD: [Bowel sounds normal, soft, nontender, no masses, no organomegaly. No audible bruits.] : [Not examined] LYMPH: [No lymphadenopathy noted.] EXT: [No clubbing, cyanosis or edema.] SKIN: [No rashes or lesions noted.] NEURO: [Awake, alert, and oriented x3. No focal sensory or strength deficits noted.] Laboratory: [ ] Hematology Labs: Test 01/16/25 07:11 01/16/25 01:11 Range/Units Hemoglobin 11.8 L 14.0-18.0 g/dL Hematocrit 33.7 L 42-54 % White Blood Count 12.4 H 4.8-10.8 K/uL Red Blood Count 3.70 L 4.50-6.20 MIL/uL Mean Corpuscular Volume 91.1 79-99 fL Mean Corpuscular Hemoglobin 32.2 27.0-33.0 pg Mean Corpuscular Hemoglobin Concent 35.3 32.0-36.0 g/dL Red Cell Distribution Width 13.1 11.0-15.5 % Platelet Count 181 130-400 K/uL Mean Platelet Volume 10.5 7.5-10.5 fL Nucleated Red Blood Cells 0.0 0.0-0.19 % Chemistry Labs: Test 01/17/25 04:16 01/16/25 01:11 Range/Units Whole Blood Glucose 166 H 70-110 MG/DL Sodium Level 137 136-145 mmol/L Potassium Level 4.2 3.5-5.1 mmol/L Chloride Level 108 101-111 mmol/L Carbon Dioxide Level 20 L 21-32 mmol/L Blood Urea Nitrogen 35 H 7-18 mg/dL Creatinine 1.2 0.5-1.3 mg/dL Glomerular Filtration Rate Calc 76 >90 mL/min Random Glucose 171 H 70-105 mg/dL Total Calcium 7.4 L 8.5-10.1 mg/dL Magnesium Level 1.70 L 1.80-2.40 mg/dL Total Bilirubin 0.8 0.2-1.0 mg/dL Aspartate Amino Transf (AST/SGOT) 18 10-37 U/L Alanine Aminotransferase (ALT/SGPT) 15 12-78 U/L Alkaline Phosphatase 86 50-136 U/L Total Protein 5.7 L 6.0-8.3 g/dL Albumin 2.0 L 3.5-5.0 g/dL Coagulation Labs: Test 01/17/25 00:59 Range/Units Activated Partial Thromboplast Time 90.3 #*H 26.3-35.5 SEC Diagnostics / Radiology: [Copy/Paste Echos/Imaging Report here] Impression and Plan: [ 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 Patient is high risk given advanced liver disease and thrombocytopenia -DRAKE on 01/11/2025 with LVEF of 60-65%, Left atrial appendage clot present, Aortic valve is trileaflet and open well. Non coronary cusp leaflet has vegetation that measures 1.81cm x 1.17cm. ID abx for MSSA for 6 weeks and repeat DRAKE at that time -blood cultures negative for 48 hours as of 01/14/2025 KARINA thrombus --Started on Heparin gtt, will transition to oral anticoagulation today Thrombocytopenia with platelet count falling to 21,000 on 01/05/2025, now improved -Dr. Quinn is following, likely multi factorial including ITP Urinary tract infection with Klebsiella pneumoniae: -continue antibiotic therapy Fidelina esophagitis -will follow ID recs Comorbidities: Hypertension Hyperlipidemia Coronary artery disease status post prior PTCA and stent procedure to the LAD 12/19/2015 , presenting as a non ST segment elevation [place] in the setting of hypertensive emergency Probable sleep apnea Alcohol and cocaine abuse EVANS FLORES MD Jan 17, 2025 07:06
--- NOTE | 2025-01-17 09:11 | PN ---
GASTROENTEROLOGY PROGRESS NOTE Date of Visit: Jan 17, 2025 Time of Visit: 09:11 Events / Notes: No acute events overnight. Patient had EGD revealing LA Grade B esophagitis. Denies fever, chills, abdominal pain, N/V, hematemesis, bloating, constipation, diarrhea, melena or hematochezia. Review of Systems: CONSTITUTIONAL: No malaise or change in sensation of wellbeing. ENMT: No rhinorrhea, otorrhea, sinus pain, ear ache. CARDIOVASCULAR: No angina, palpitations, orthopnea or paroxysmal dyspnea. RESPIRATORY: No SOB. GASTROINTESTINAL: No abdominal pain, nausea, vomiting, diarrhea, hematemesis, melena or change in the patient's habitual bowel movements consistency/number. GENITOURINARY: No dysuria, hematuria or change in bladder continence. MUSCULOSKELETAL: No new muscle pain or decrease in muscular strength. No new joint swelling, redness or tenderness. SKIN: No new rash. Physical Exam: GEN: Awake, alert, oriented in person, time and place, and in no acute distress. HEENT: No sinus tenderness. Tympanic membranes were not examined. No rhinorrhea. Oral pharyngeal mucosa is pink, moist and within normal limits. Neck is supple with no cervical lymphadenopathy, thyromegaly or JVD. CHEST: Inspection, palpation and percussion of the chest were unremarkable. Lung auscultation revealed normal breath sounds bilaterally. CARDIAC: PMI is within normal limits. Heart sounds are regular. Normal S1, S2. No gallop or murmur. ABD: Soft, non-tender and not distended. No peritoneal signs on palpation. No organomegaly. Normal bowel sounds. EXT: No cyanosis or clubbing. No edema. SKIN: Intact. No rashes. JOINTS: No evidence of synovitis or acute arthritis. NEURO: Alert and oriented to name, place and person. Cranial nerve examination is unremarkable. No focal motor deficits. Normal speech. Gait is normal. Strength is normal. Vital Signs (last 8hr) Date Time Temp Pulse Resp B/P (MAP) Pulse Ox O2 Delivery O2 Flow Rate FiO2 01/17/25 07:20 97.5 64 18 108/82 99 Room Air 21 01/17/25 04:00 98.4 73 20 122/74 98 Room Air Laboratory: [ ] Laboratory: Test 01/17/25 06:57 01/17/25 04:16 01/16/25 07:11 01/16/25 01:11 Range/Units Activated Partial Thromboplast Time 97.9 *H 26.3-35.5 SEC Whole Blood Glucose 166 H 70-110 MG/DL Hemoglobin 11.8 L 14.0-18.0 g/dL Hematocrit 33.7 L 42-54 % White Blood Count 12.4 H 4.8-10.8 K/uL Red Blood Count 3.70 L 4.50-6.20 MIL/uL Mean Corpuscular Volume 91.1 79-99 fL Mean Corpuscular Hemoglobin 32.2 27.0-33.0 pg Mean Corpuscular Hemoglobin Concent 35.3 32.0-36.0 g/dL Red Cell Distribution Width 13.1 11.0-15.5 % Platelet Count 181 130-400 K/uL Mean Platelet Volume 10.5 7.5-10.5 fL Nucleated Red Blood Cells 0.0 0.0-0.19 % Sodium Level 137 136-145 mmol/L Potassium Level 4.2 3.5-5.1 mmol/L Chloride Level 108 101-111 mmol/L Carbon Dioxide Level 20 L 21-32 mmol/L Blood Urea Nitrogen 35 H 7-18 mg/dL Creatinine 1.2 0.5-1.3 mg/dL Glomerular Filtration Rate Calc 76 >90 mL/min Random Glucose 171 H 70-105 mg/dL Total Calcium 7.4 L 8.5-10.1 mg/dL Magnesium Level 1.70 L 1.80-2.40 mg/dL Total Bilirubin 0.8 0.2-1.0 mg/dL Aspartate Amino Transf (AST/SGOT) 18 10-37 U/L Alanine Aminotransferase (ALT/SGPT) 15 12-78 U/L Alkaline Phosphatase 86 50-136 U/L Total Protein 5.7 L 6.0-8.3 g/dL Albumin 2.0 L 3.5-5.0 g/dL Current Medications Medications (Trade) Dose Ordered Sig/Asya Route PRN Reason Start Time Stop Time Status Last Admin Dose Admin Acetaminophen (TYLenol 325MG TAB) 650 mg Q6H PRN PO MILD PAIN (1-3) 01/16/25 17:30 02/15/25 17:29 Acetaminophen (TYLenol 325MG TAB) 650 mg Q6H PRN PO TEMPERATURE GREATER THAN 101.5 01/05/25 02:30 02/04/25 02:29 01/16/25 17:26 650 MG Aspirin (Aspirin 81mg Chew Tab) 81 mg DAILY PO 01/05/25 09:00 01/05/25 09:53 DC Aspirin (Aspirin 81mg Ec Tab) 81 mg DAILY PO 01/16/25 09:00 02/15/25 08:59 01/16/25 10:11 81 MG Benzocaine (Cepacol Sore Throat Lozenge) 1 each Q4H PRN MM SORE THROAT 01/05/25 02:30 02/04/25 02:29 Calcium Gluconate 1 gm/Sodium Chloride 100 ml @ 0 mls/hr AD PRN IV Serum Calcium Correction 01/08/25 02:30 02/07/25 02:29 01/08/25 23:32 90 MLS/HR Cefazolin Sodium (Ancef) 2 gm Q12H IVPB 01/07/25 13:30 01/16/25 14:43 DC 01/16/25 01:12 2 GM Cefazolin Sodium (Ancef) 2 gm Q8H IVPB 01/16/25 21:30 01/26/25 21:29 01/17/25 05:07 2 GM Chlordiazepoxide HCl (LIBrium 25 MG CAP) 25 mg Q8H PO 01/05/25 02:30 01/11/25 11:39 DC 01/10/25 22:23 25 MG Chlordiazepoxide HCl (LIBrium 25 MG CAP) 25 mg Q8H PRN PO WITHDRAWAL 01/11/25 12:00 01/12/25 02:29 DC Dexamethasone Sodium Phosphate 20 mg/Sodium Chloride 52 ml @ 100 mls/hr DAILY IV 01/09/25 09:00 02/08/25 08:59 01/16/25 14:50 100 MLS/HR Dexamethasone Sodium Phosphate 40 mg/Sodium Chloride 50 ml @ 100 mls/hr DAILY IV 01/06/25 14:00 01/08/25 12:16 DC 01/08/25 09:34 100 MLS/HR Dextrose (D50w) 50 ml AD PRN IV HYPOGLYCEMIA PROTOCOL 01/05/25 10:00 02/04/25 09:59 Doxycycline Hyclate 250 ml @ 125 mls/hr Q12H IV 01/05/25 10:00 01/06/25 21:05 DC 01/06/25 09:30 125 MLS/HR Doxycycline Hyclate 250 ml @ 125 mls/hr Q12H IV 01/06/25 21:30 01/16/25 14:23 DC 01/16/25 10:13 125 MLS/HR Fluconazole (DiFLUCan 100 mg TAB) 200 mg DAILY PO 01/12/25 09:00 02/11/25 08:59 01/16/25 10:10 200 MG Folic Acid (FOLic ACID 1 MG TABLET) 1 mg DAILY PO 01/07/25 10:30 02/06/25 10:29 01/16/25 10:10 1 MG Furosemide (LASix 20MG VIAL) 20 mg Q12H IV 01/07/25 16:00 01/11/25 00:56 DC 01/10/25 19:40 20 MG Gentamicin Sulfate/Sodium Chloride 100 ml @ 200 mls/hr Q12H IV 01/16/25 15:30 01/26/25 15:29 01/17/25 03:45 200 MLS/HR Glucagon (Glucagon 1mg Kit) 1 mg AD PRN IM HYPOGLYCEMIA PROTOCOL 01/05/25 10:00 02/04/25 09:59 Heparin Sodium/ Dextrose 250 ml @ 0 mls/hr PROTOCOL IV 01/11/25 14:30 02/10/25 14:29 01/16/25 21:34 0 MLS/HR Hydralazine HCl (APRESOLine 20MG INJ) 5 mg Q6H PRN IV For:SBP above 160;DBP above 90 01/05/25 14:30 02/04/25 14:29 01/10/25 22:24 5 MG Hydralazine HCl (APRESOLine 20MG INJ) 10 mg Q6H PRN IV For:SBP above 160;DBP above 90 01/05/25 02:30 01/05/25 09:53 DC Insulin Glargine (LANtus 100 UNITS/ML 10 ML VIAL) 15 units Q12H SQ 01/07/25 21:30 01/09/25 23:18 DC 01/09/25 13:10 15 UNITS Insulin Glargine (LANtus 100 UNITS/ML 10 ML VIAL) 20 units DAILY SQ 01/14/25 09:00 02/13/25 08:59 01/16/25 10:13 20 UNITS Insulin Glargine (LANtus 100 UNITS/ML 10 ML VIAL) 20 units HS SQ 01/06/25 21:00 01/06/25 21:05 DC Insulin Glargine (LANtus 100 UNITS/ML 10 ML VIAL) 20 units HS SQ 01/06/25 21:30 01/07/25 10:24 DC 01/06/25 21:33 20 UNITS Insulin Glargine (LANtus 100 UNITS/ML 10 ML VIAL) 20 units Q12H SQ 01/10/25 09:30 01/10/25 12:58 DC Insulin Glargine (LANtus 100 UNITS/ML 10 ML VIAL) 25 units Q12H SQ 01/10/25 21:30 01/11/25 00:50 DC 01/10/25 22:19 25 UNITS Insulin Glargine (LANtus 100 UNITS/ML 10 ML VIAL) 30 units DAILY SQ 01/12/25 09:00 01/14/25 07:03 DC 01/12/25 11:25 30 UNITS Insulin Glargine (LANtus 100 UNITS/ML 10 ML VIAL) 30 units Q12H SQ 01/11/25 09:30 01/11/25 20:13 DC 01/11/25 10:50 30 UNITS Insulin Human Regular (humuLIN R 100 UNIT/ML 3ML) 5 unit TIDAC SQ 01/14/25 07:30 02/13/25 07:29 01/17/25 06:07 5 UNIT Insulin Human Regular (humuLIN R 100 UNIT/ML 3ML) 8 unit TIDAC SQ 01/11/25 07:30 01/14/25 07:03 DC 01/13/25 19:47 8 UNIT Insulin Human Regular (humuLIN R 100 UNIT/ML 3ML) INSULIN SLIDING SCAL... ACHS SQ 01/05/25 07:30 01/05/25 09:57 DC 01/05/25 07:59 16 UNIT Insulin Human Regular (humuLIN R 100 UNIT/ML 3ML) INSULIN SLIDING SCAL... ACHS SQ 01/05/25 11:30 01/06/25 16:43 DC 01/06/25 11:50 8 UNIT Insulin Human Regular (humuLIN R 100 UNIT/ML 3ML) INSULIN SLIDING SCAL... ACHS SQ 01/06/25 17:00 01/07/25 13:32 DC 01/06/25 17:17 16 UNIT Insulin Human Regular (humuLIN R 100 UNIT/ML 3ML) INSULIN SLIDING SCAL... Q4H SQ 01/11/25 02:00 01/11/25 23:59 DC 01/11/25 20:49 6 UNIT Insulin Human Regular (humuLIN R 100 UNIT/ML 3ML) INSULIN SLIDING SCAL... Q4H SQ 01/11/25 23:59 02/10/25 23:58 01/16/25 21:31 14 UNIT Insulin Human Regular (humuLIN R 100 UNIT/ML 3ML) INSULIN SLIDING SCAL... Q6H6 SQ 01/10/25 18:00 01/11/25 00:50 DC 01/11/25 00:45 10 UNIT Insulin Human Regular 100 unit/ Sodium Chloride 100 ml @ 0 mls/hr AD PRN IV HYPERGLYCEMIA PROTOCOL 01/06/25 19:30 01/10/25 06:00 DC 01/09/25 19:10 16 MLS/HR Lactated Ringer's 1,000 ml @ 100 mls/hr Q10H IV 01/05/25 02:30 01/05/25 09:51 DC 01/05/25 02:30 100 MLS/HR Lactated Ringer's 1,000 ml @ 125 mls/hr Q8H IV 01/10/25 01:30 01/10/25 19:40 DC 01/10/25 13:07 125 MLS/HR Lactobacillus Rhamnosus ([facility]) 1 each DAILY PO 01/12/25 09:00 02/11/25 08:59 01/16/25 10:10 1 EACH Lorazepam (AtiVAN) 1 mg Q4H PRN IVP ALCOHOL WITHDRAWAL PROTOCOL 01/05/25 02:30 01/12/25 02:29 DC Magnesium Sulfate 50 ml @ 0 mls/hr PROTOCOL PRN IV h 01/05/25 02:30 02/04/25 02:29 01/13/25 04:13 25 MLS/HR Morphine Sulfate (morPHINE 2MG SYG) 2 mg Q4H PRN IVP SEVERE PAIN (7-10) 01/05/25 02:30 01/12/25 02:29 DC Multivitamins Therapeutic (Multivitamin Tablet) 1 tab DAILY PO 01/07/25 10:30 02/06/25 10:29 01/16/25 10:10 1 TAB Nicotine (Nicoderm) 21 mg DAILY TD 01/05/25 09:00 02/04/25 08:59 01/16/25 10:11 21 MG Nitroglycerin (Nitrostat) 0.4 mg AD PRN SL CHEST PAIN 01/05/25 02:30 02/04/25 02:29 Ondansetron HCl (zoFRAN 4MG INJ) 4 mg Q6H PRN IV NAUSEA/VOMITING 01/05/25 02:30 02/04/25 02:29 Pantoprazole Sodium (PROTonix 40MG TAB) 40 mg DAILY PO 01/05/25 09:00 02/04/25 08:59 01/16/25 10:11 40 MG Pharmacy Profile Note (Pharmacy Communication) 1 each ONCE MISC 01/16/25 14:30 01/16/25 15:12 DC Pharmacy Profile Note (Pharmacy Communication) 1 each PROTOCOL PRN MISC ETOH Withdrawal Score changes 01/05/25 02:30 01/12/25 02:29 DC Piperacillin Sod/ Tazobactam Sod (Zosyn 3.375gm+NS 50ml) 3.375 gm Q12H IV 01/05/25 02:30 01/07/25 13:24 DC 01/07/25 02:45 3.375 GM Potassium Phosphate 250 ml @ 42 mls/hr PROTOCOL PRN IV PROTOCOL 01/05/25 10:00 02/04/25 09:59 Potassium Chloride 100 ml @ 100 mls/hr AD PRN IV POTASSIUM PROTOCOL 01/05/25 02:30 01/07/25 10:12 DC Potassium Chloride 100 ml @ 100 mls/hr AD PRN IV POTASSIUM PROTOCOL 01/07/25 10:30 02/06/25 10:29 01/09/25 06:26 100 MLS/HR Potassium Chloride (K-Dur 10meq Sr Tab) 10 meq AD PRN PO POTASSIUM PROTOCOL 01/06/25 09:30 02/04/25 02:29 01/08/25 23:35 10 MEQ Potassium Chloride (K-Dur/Klor-Con 20meq) 10 meq AD PRN PO POTASSIUM PROTOCOL 01/05/25 02:30 01/06/25 09:12 DC 01/05/25 22:15 10 MEQ Potassium Chloride (K-Dur/Klor-Con 20meq) 10 meq AD PRN PO POTASSIUM PROTOCOL 01/07/25 10:30 01/07/25 10:12 DC Potassium Chloride (KCl 10% Elixir 20meq/15ml) 10 meq AD PRN PO POTASSIUM PROTOCOL 01/05/25 02:30 01/07/25 10:12 DC 01/06/25 17:16 10 MEQ Potassium Chloride (KCl 10% Elixir 20meq/15ml) 10 meq AD PRN PO POTASSIUM PROTOCOL 01/07/25 10:30 02/06/25 10:29 01/08/25 15:28 10 MEQ Sodium Bicarbonate (Sodium Bicarbonate) 1,300 mg BID PO 01/11/25 09:00 02/10/25 08:59 01/16/25 21:29 1,300 MG Sodium Chloride 1,000 ml @ 50 mls/hr Q20H IV 01/05/25 10:00 01/10/25 01:33 DC 01/09/25 05:56 50 MLS/HR Sodium Chloride 1,000 ml @ 75 mls/hr [id number] IV 01/11/25 01:00 01/11/25 13:45 DC 01/11/25 01:00 75 MLS/HR Triamcinolone Acetonide (Kenalog/ Aristocort) 1 APPLY TP BID BID TP 01/07/25 11:00 02/06/25 10:59 01/16/25 21:30 1 APPL Vancomycin HCl (Vancomycin Protocol) 1 each AD IV 01/07/25 12:30 01/07/25 12:40 DC Diagnostics / Radiology: [COPY/PASTE HERE IF NO REPORTS PLEASE DELETE SECTION] Assessment: GERD esophagitis Decompensated cirrhosis Thrombocytopenia Abnormal troponin Alcohol abuse Plan: Follow cardio recommendations Will obtain liver serologies to r/o other liver pathology Please contact our service if the patient has significant bleeding such as hematemesis and we can proceed sooner with the EGD Thanks you for allowing us to participate in the care of this patient! HILDA MUIR DOOR TO DOOR SALESPERSON Jan 17, 2025 09:11
--- NOTE | 2025-01-17 09:38 | PN ---
SUBJECTIVE: A 44-year-old male initially presented to the hospital and found to have endocarditis. The patient has had acute on chronic renal failure in the hospital. Creatinine has been elevated. The patient remains on the antibiotics and the patient is being seen for all of the above. REVIEW OF SYSTEMS: GENERAL: The patient is feeling weak and tired. HEENT: No change in vision. No change in hearing. CARDIOVASCULAR: There is no current chest pain or palpitations. PULMONARY: There is no shortness of breath. GASTROINTESTINAL: He is tolerating a diet. MUSCULOSKELETAL: Complains of weakness. PHYSICAL EXAMINATION: VITAL SIGNS: Blood pressure is 119/83, pulse 70s. GENERAL: Chronically ill male, much older than appearing. HEENT: Head is atraumatic. Pupils equal, roving to light. Oropharynx is without exudate. Nares clear. NECK: There is no JVP. There is no thyromegaly, no mass. CARDIOVASCULAR: Regular. There is no S3, S4 gallop. LUNGS: Coarse with equal thoracic movement. ABDOMEN: Soft, nondistended, nontender. EXTREMITIES: Reveal no clubbing, no cyanosis. NEUROLOGIC: He is awake. He is alert. He is at his baseline. LABORATORY DATA: Sodium 137, BUN 35, creatinine 1.2. IMPRESSION: * Acute on chronic renal failure. * Endocarditis. * Diabetes mellitus. * Hypertension. * History of substance abuse. PLAN: The patient's creatinine continues to remain fairly stable. The patient's workup is ongoing per Cardiology. The patient remains on the antibiotics. The patient is being seen by case management for final disposition, which will be long-term IV antibiotics. We will continue to follow the chemistries closely. TID: [id number] RECEIPT: [id number]
--- NOTE | 2025-01-17 13:45 | PN ---
[facility] PROGRESS NOTE Date Patient Seen: Jan 17, 2025 Time of Visit: 13:45 Supervising Physician: Dr. Jose L Nair Primary Care Physician: Supervisor Pre Wave PCP Outpatient Specialists: [ ] Inpatient Consults:Critical care, Hematology, cardiology and nephrology PROBLEM LIST: Endocarditis POA DRAKE on 01/11/25 with 1.1 cm aortic valve vegetation and Left Atrial Appendage thrombus Severe sepsis and shock POA, resolving Werner Esophagitis per EGD results 01/11/25 Urinary tract infection, POA Klebsiella pneumoniae cultured in the urine Staph aureus bacteremia POA Strep pharyngitis, POA Acute kidney injury, POA improving Electrolyte derangement POA ( hypokalemia, Hyponatremia) 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 Uncontrolled Diabetes mellitius type2, POA HgA1C 8.5 NTEMI Type II HI POA PolySubstance abuse, POA, (cocaine/Marijuana) Alcohol dependence, POA Tobacco dependence, POA Acute cholecystitis on HIDA scan 01/07/25 POA Hepatomegaly with hepato steatosis MELD score on admission of 31 Morbid obesity Noncompliance behavior PLAN SUMMARY: Monitor for any signs of bleeding Supplemental oxygen as needed Wean off as tolerated Duo nebs as needed Continue BiPAP nightly and p.r.n. IS while awake Continue cefazolin Continue doxycycline Continue fluconazole Patient will need a pulmonary f/u as an outpatient for evaluation of suspected sleep apnea INTERVAL HISTORY: 01/11/25- patient is awake alert and oriented x3. Post EGD and DRAKE found to have vegetation in the aortic valve and thrombus in the KARINA, and LVEF of 60- 65%.. Per Hematology started heparin gtt per protocol today. For now patient is hemodynamically stable afebrile heart rate in the 80s respiratory rate of 18 saturating 99% on room air. Patient has a urine output of 4.4 L last night and a balance of-2.2 L. He had 2 bowel movements this morning. Pt continues with ancef IV for MSSA endocarditis. He will need at least 6 weeks of IV abx. WBCs are 12.5 H&H is normal platelet count is 113 K. sodium 145 potassium of 4 carbon dioxide of 22 BUN 59 creatinine 1.8 and GFR of 47 glucose of 102 mg/dL. Patient is stable downgrade from ICU to PCCU. 01/12/25 Patient is a 44 year old gentleman who initially presented with endocarditis and thrombus in the KARINA, placed on Heparin drip by Ancillary Services Manager Therapy since platelets count are better there is no report of fever, chills, nausea or vomiting, plan is to continue with CIWA protocol, monitor WBC, kidney function has improved, BS is stable patient remains on room air and antibiotic therapy as well antifungal medication since he is positive for werner in the esophagus, Midline has been inserted for antibiotic otherwise patient requires to be stable in order to evaluate if he will be candidate for surgery . 01/13/25 Patient is 44 year old male awake alert, well oriented who continues to be on antibiotic due to Endocarditis he has no fever, chills, no chest pain or SOB at this moment, has been follow by Dr. Quinn, Dr. Javier and Dr. Garcia offer no new issues he might need CV surgery , we will follow up closely. 01/14 - patient is seen lying in bed resting quietly currently on room air with no signs of acute distress. Patient continues to utilize BiPAP nightly and as needed. Patient continues on broad-spectrum antibiotics for endocarditis as well as Staphylococcus bacteremia. Patient had remains afebrile. Patient denies chest discomfort, chest pain or dyspnea at this time. No acute changes reported overnight. Patient was evaluated by Cardiovascular surgery and given his chronic folliculitis recommend treatment prior any further interventions. Patient had a CT scan of the chest which shows no evidence of pulmonary nodule or effusion seen. Patient was started on heparin drip secondary to the left atrial appendage thrombus. We will continue to follow up with you. 01/15 Patient is awake, alert, not in distress, no chest pain, denies fever, continues to be on antibiotic therapy due to cardiac vegetation plan is to continue monitoring cultures closely to confirm clear up in order to decide for surgical procedure as per CV surgeon recommendations otherwise no new issues reported. 01/16 Patient is awake,alert, well oriented, obese, who continues to be on antibiotic therapy due to Endocarditis, on heparin drip due to Thrombus in the KARINA follow up by [facility] plan is to repeat DRAKE, otherwise suspected for sleep apnea therefore he has been recommended to follow up at the pulmonary clinic as an outpatient for sleep studies, he will continue with current medical treatment and monitor closely for an signs or site of bleeding due to heparin drip. 01/17 patient was evaluated sitting in his chair at bedside. He is currently on room air, lungs are clear to auscultation and he denies any shortness of breath or chest pain at this time. Patient states that he has not used BiPAP for several days. No requirements for supplemental O2 at this time. Patient continues his workup for endocarditis, currently on heparin drip with current plan to repeat DRAKE by [facility]. Follow up at [facility] was reinforced today for obstructive sleep apnea evaluation. No changes to medical management from a pulmonary perspective, we will continue to follow the patient while he is on the med floor. REVIEW OF SYSTEMS: 12 point ROS reviewed with patient. Pertinent positives mentioned above. Otherwise negative. PHYSICAL EXAM: GENERAL: alert, weak, awake oriented x 3 HEENT: EOMI, Sclera non icteric, moist mucosa NECK: Supple, no JVD, trachea midline LUNGS: Clear breath sounds bilaterally. No wheezes HEART: Regular rate and rhythm. Normal S1 and S2, without murmurs ABD: Abdomen soft, nontender. Bowel sounds present EXT: No clubbing cyanosis or edema NEURO: Alert and oriented to person, follows commands Vital Signs (last 8hr) Date Time Temp Pulse Resp B/P (MAP) Pulse Ox O2 Delivery O2 Flow Rate FiO2 01/17/25 11:10 97.9 64 18 131/82 100 Room Air 21 01/17/25 07:20 97.5 64 18 108/82 99 Room Air 21 LABS: Hematology Labs: Test 01/16/25 07:11 01/16/25 01:11 Range/Units Hemoglobin 11.8 L 14.0-18.0 g/dL Hematocrit 33.7 L 42-54 % White Blood Count 12.4 H 4.8-10.8 K/uL Red Blood Count 3.70 L 4.50-6.20 MIL/uL Mean Corpuscular Volume 91.1 79-99 fL Mean Corpuscular Hemoglobin 32.2 27.0-33.0 pg Mean Corpuscular Hemoglobin Concent 35.3 32.0-36.0 g/dL Red Cell Distribution Width 13.1 11.0-15.5 % Platelet Count 181 130-400 K/uL Mean Platelet Volume 10.5 7.5-10.5 fL Nucleated Red Blood Cells 0.0 0.0-0.19 % Chemistry Labs: Test 01/17/25 10:41 01/16/25 01:11 Range/Units Whole Blood Glucose 106 70-110 MG/DL Sodium Level 137 136-145 mmol/L Potassium Level 4.2 3.5-5.1 mmol/L Chloride Level 108 101-111 mmol/L Carbon Dioxide Level 20 L 21-32 mmol/L Blood Urea Nitrogen 35 H 7-18 mg/dL Creatinine 1.2 0.5-1.3 mg/dL Glomerular Filtration Rate Calc 76 >90 mL/min Random Glucose 171 H 70-105 mg/dL Total Calcium 7.4 L 8.5-10.1 mg/dL Magnesium Level 1.70 L 1.80-2.40 mg/dL Total Bilirubin 0.8 0.2-1.0 mg/dL Aspartate Amino Transf (AST/SGOT) 18 10-37 U/L Alanine Aminotransferase (ALT/SGPT) 15 12-78 U/L Alkaline Phosphatase 86 50-136 U/L Total Protein 5.7 L 6.0-8.3 g/dL Albumin 2.0 L 3.5-5.0 g/dL Coagulation Labs: Test 01/17/25 13:12 Range/Units Activated Partial Thromboplast Time 75.2 H 26.3-35.5 SEC DIAGNOSTICS / RADIOLOGY RESULTS: [ ] PLAN Monitor for any signs of bleeding Continues with antibiotic and antifungal treatment follow still operator helper recommendations follow up with flavor extractor for further recommendations [place] protocol NEURO: Minimize central acting medications as possible. Maintain fall precautions, adequate lighting during the day PULMONARY: Supplemental 02 as needed. Maintain aspiration precautions at all times CARDIOVASCULAR: Follow hemodynamics. Vital signs per facility protocol GI & NUTRITION: Continue with nutritional support. Continue stool softeners and laxatives as needed. KIDNEYS & ELECTROLYTES: Strict monitoring of intake, output and overall fluid balance. Avoid nephrotoxic medications to the extent possible. Medications to be dosed according to renal function. Monitor electrolytes and replace as needed ENDOCRINE: Maintain blood glucose between 100-180 at all times. Hypoglycemia protocol in place INFECTIOUS DISEASE: Trend temperature, WBC and procalcitonin level Follow cultures, deescalate antibiotics as soon as possible. Panculture if new onset fever ONCOLOGY/HEMATOLOGY/COAGULATION: Monitor for s/s of bleeding Monitor hemoglobin, coagulation studies as needed SKIN: Pressure ulcer prevention per facility protocol Specialty mattress ORTHO/REHAB: Continue PT/OT Prophylaxis: Continue GI and DVT prophylaxis Code Status: Full Resuscitation Dispo: As per attending Total time spent greater than 35 minutes MARITZA HORNER Jan 17, 2025 13:45
--- NOTE | 2025-01-17 15:05 | PN ---
INFECTIOUS DISEASE PROGRESS NOTE Date of Service: Jan 17, 2025 SUBJECTIVE: This is a 44-year-old male patient who was admitted for chief complaint of weakness and status post fall at home. A Urine culture collected on admission came back positive for Klebsiella pneumoniae and the blood cultures results came back positive for Methicillin sensitive Staphylococcus aureus 2 of 2 sets and the reason for this consult. A 2D echo done on admission showed Aortic valve endocarditis and DRAKE done on 01/11/2025 with findings of aortic valve vegetation and Left atrial appendage clot. Patient was seen and examined at bedside in room 412. Patient is awake, alert and oriented x3. Patient is status post DRAKE on 01/11/2025 with findings of aortic valve vegetation and left atrial appendage clot. Continues on heparin drip. The repeat Blood cultures continue being positive with MSSA. We will repeat blood cultures. We will discontinue cefazolin and start patient on Nafcillin 2 g IV every 6 hours and continue gentamicin per pharmacy renal dosing and fluconazole. Patient is afebrile, temperature is 97.9. Will continue to follow patient's care. PHYSICAL EXAM EYES: Anicteric. Pupils equal and reactive. HENT: No oral thrush seen, moist Oral mucosa. NECK: Supple, no JVD or thyromegaly. LUNGS: Good air entry. No rales, no rhonchi. CARDIOVASCULAR: S1, S2 regular. No murmur heard. ABDOMEN: Obese but Soft. CENTRAL NERVOUS SYSTEM: Awake, alert, oriented x 3. SKIN: No rashes, no swelling. LYMPHATICS: No peripheral lymphadenopathy MUSCULOSKELETAL: No joint swelling, erythema or tenderness. Weakness. EXTREMITIES: No cyanosis or clubbing. Edematous. BACK: No deformity, no pressure ulcer. GENITOURINARY: No dysuria or hematuria. Vital Sign (Last 12 Hours) 01/17/25 01/17/25 01/17/25 01/17/25 04:00 07:20 08:00 11:10 Temp 98.4 97.5 97.9 Pulse 73 64 64 Resp 18 B/P (MAP) 122/74 108/82 131/82 Pulse Ox 98 99 100 100 O2 Delivery Room Air Room Air Room Air* Room Air O2 Flow Rate 0 FiO2 21 21 21 Intake & Output (last 24hrs) 01/16/25 01/16/25 01/17/25 15:00 23:00 07:00 Intake Total 500 ml 300.0 ml Balance 500 ml 300.0 ml LABS: Laboratory: Test 01/17/25 13:12 01/17/25 10:41 01/16/25 07:11 01/16/25 01:11 Range/Units Activated Partial Thromboplast Time 75.2 H 26.3-35.5 SEC Whole Blood Glucose 106 70-110 MG/DL Hemoglobin 11.8 L 14.0-18.0 g/dL Hematocrit 33.7 L 42-54 % White Blood Count 12.4 H 4.8-10.8 K/uL Red Blood Count 3.70 L 4.50-6.20 MIL/uL Mean Corpuscular Volume 91.1 79-99 fL Mean Corpuscular Hemoglobin 32.2 27.0-33.0 pg Mean Corpuscular Hemoglobin Concent 35.3 32.0-36.0 g/dL Red Cell Distribution Width 13.1 11.0-15.5 % Platelet Count 181 130-400 K/uL Mean Platelet Volume 10.5 7.5-10.5 fL Nucleated Red Blood Cells 0.0 0.0-0.19 % Sodium Level 137 136-145 mmol/L Potassium Level 4.2 3.5-5.1 mmol/L Chloride Level 108 101-111 mmol/L Carbon Dioxide Level 20 L 21-32 mmol/L Blood Urea Nitrogen 35 H 7-18 mg/dL Creatinine 1.2 0.5-1.3 mg/dL Glomerular Filtration Rate Calc 76 >90 mL/min Random Glucose 171 H 70-105 mg/dL Total Calcium 7.4 L 8.5-10.1 mg/dL Magnesium Level 1.70 L 1.80-2.40 mg/dL Total Bilirubin 0.8 0.2-1.0 mg/dL Aspartate Amino Transf (AST/SGOT) 18 10-37 U/L Alanine Aminotransferase (ALT/SGPT) 15 12-78 U/L Alkaline Phosphatase 86 50-136 U/L Total Protein 5.7 L 6.0-8.3 g/dL Albumin 2.0 L 3.5-5.0 g/dL ASSESSMENT: Methicillin-susceptible Staphylococcus aureus bacteremia status post DRAKE on 01/11/2025 with findings of aortic valve vegetation and Left atrial appendage clot. Aortic valve endocarditis on 2D echo. Urinary tract infection with Klebsiella pneumoniae. Chronic scalp folliculitis. Leukocytosis. Thrombocytopenia requiring platelet transfusion, resolving. Acute on chronic renal failure, resolving. Substance abuse, Cocaine and ETOH. Streptococcus viral infection. Uncontrolled diabetes mellitus. Debility. PLAN: Discontinue cefazolin. Start Nafcillin 2 g IV every 6 hours. Start gentamicin per pharmacy renal dosing. Will repeat blood cultures. Patient will need 6 weeks of IV antibiotics. Continues on heparin drip. Avoid nephrotoxic medications. Continue GI prophylaxis. Cement Sack Breaker following patient. Continue monitoring glucose levels. We will monitor electrolytes. This case was reviewed and discussed with my supervising physician and the above assessment and plan was formulated and agreed upon. ATTESTATION BY PHYSICIAN I have seen and examined the patient. I reviewed the documentation, medical decision making, and treatment plan as noted by the mid-level provider above. I agree with the findings and plan of care. JANUARY CARLSON MD, M[facility] L [facility] ASSISTANT Jan 17, 2025 15:05
--- NOTE | 2025-01-17 16:35 | NUR ---
Nutritional Note: Pt reported not having nausea or vomiting, difficulty swallowing food due to blisters on tongue. Pt was agreeable to modifying diet to mechanical soft food. Pt reported eating <25% of PO and instead eats outside food that is soft. Pt reported typical diet included eating 1 lunch meal of fast food and drinking alcohol the rest of the day. Pt reported last BM 01/17/25 and did not have a PCP. Pt was agreeable to Glucerna supplement in strawberry and Prostat Jello to increase oral intake. Pt reported to being diagnosed with DM and received verbal nutritional education on diabetes nutrition. Pt is moderate risk for PCM due to poor oral intake. Pt adherence expectance is fair. Nutritional concerns: <25% PO intake and weight loss. Recommendations: - Continue Carb Consistent Diet 75 g (1800 2000) - Add diet modifier of mechanical soft foods - Order Glucerna supplement TID all trays - Order Prostat Jello 30 ml TID all trays - Monitor PO intake - Reweigh as able - Monitor care goals RD to follow + available for consult per protocol Signed by Dietetic Student Dayanna Zamarripa Addendum: 01/17/25 at [address] Amended: Links added.
[2025-01-17] MEDS: NAFCILLIN 2GM+ NS 100ML IV SCH (18:53)
--- NOTE | 2025-01-17 19:28 | PN ---
[facility] PROGRESS NOTE Date of Service: Jan 17, 2025 Time of Service: 19:25 SUBJECTIVE: [ ] The patient has been seen and examined at bedside, no acute events overnight, the patient is comfortable, cooperating well, alert oriented x3, he is on a CIWA protocol, not combative. BP 123/70, rest of vital signs unremarkable. Patient received transfusion of 1 unit of platelet, platelet count improved to 27, per aerial planting and cultivation manager, likely due to splenomegaly. Echocardiogram reviewed, hypodense echogenic mobile vegetation to right coronary cusp leaflet, per cardiology once platelet count is greater than 50 1000 we will proceed with a a DRAKE. The pa tient also with a elevated blood sugar, continue insulin sliding scale, add insulin glargine 20 units subcutaneously at bedtime. Continue the patient on broad-spectrum IV antibiotics, continue to trend WBC in a.m.. 01/07 patient is seen and examined at bedside, case discussed with the RN, patient upgraded last night to the ICU to start insulin drip as blood glucose per sistently greater than 400. Patient started on dexamethasone IV by aerial planting and cultivation manager do to ITP. Platelet count slightly better today at 41. Upon my initial encounter with the patient admitted that he drinks more than 18 beers per day. He was started on CIWA protocol, however has remained hemodynamically stable, comfortable in bed, no signs of withdrawal, cooperating fine. Not agitated, not combative. Toxicology screen positive for cocaine. Sodium level slowly improvi ng, today 132. Serology positive for influenza type A. The patient with significant proteinuria consistent with diabetic nephropathy, creatinine slowly trending down, no need for renal replacement therapy per broadcast news producer. Patient with blood culture positive for Staphylococcus aureus, with urine culture positive for Klebsiella pneumoniae. We will add vancomycin IV pharmacy to dose. We will request Infectious Disease consultation. Echocardiogram reviewed, hypodense echogenic mobile vegetation to right coronary cusp leaflet, per cardiology once platelet count is greater than 50 1000 we will proceed with a a DRAKE. CT abdomen with gallstones in the gallbladder. HIDA scan pending 01/08 patient seen at bedside, no acute events overnight. He continues on insulin drip with an anion gap of 14, we will continue until the gap is closed. P latelets 54, we will follow up with Cardiology on optimal timing for DRAKE. Continue with IV antibiotics, further care per critical Care. 2/10 patient seen at bedside, no acute events overnight. Anion gap is still open at 14, we will continue IV insulin. Platelets improved from 54 up to 71, CO2 decreased from 17 down to 15. Cardiology planning on DRAKE today, we will follow up postprocedure. Repeat blood cultures are positive for Gram-positive organisms which further supports underlying endocarditis. Continue with IV antibiotics, appreciate Infectious Disease recommendations. He has been afebrile, hemodynamically stable saturating well on room air. WBC increased from 12.8 up to 13.6, BUN decreased from 93 down to 90, creatinine decreased from 2.5 down to 2.3, remainder of his labs are relatively unremarkable. 01/10 Pt seen at bedside, no acute events overnight. Pt with anion gap of 14, CO2 still low at 16. Repeat lactic acid was ordered, elevated at 4.8, will bolus patient and continue with IV fluids. DRAKE was rescheduled to today, will follow up with results.WBC improved from 13.6 down to 11.7, Hgb decreased from 15.1 down to 12.4, platelets decreased from 71 down to 66, this substantial decrease in all cell lines suggests hemodilution, creatinine decreased from 2.2 down to 1.4, also likely falsely depressed. 01/11 Pt seen at bedside, no acute events overnight. Pending EGD to assess for esophageal varices and DRAKE today, will follow up post procedure. Yesterday repeat lactic acid was elevated at 4.8, the patient was bolused and it improved down to 1.3. He has been afebrile, hemodynamically stable, saturating well on room air. WBC increased from 11.7 up to 12.5, platelets improved from 66 up to 113, creatinine increased from 1.6 up to 1.8, CO2 improved from 17 up to 22 after patient was started on bicarb. Third set of blood cultures growing gram positive organisms 01/12 patient is seen and examined at bedside, case discussed with the RN, no acute events overnight, remains on broad-spectrum IV antibiotics, alert oriented x3, following commands. Patient underwent DRAKE 01/11, tolerated well, LVEF 60- 65%, no left ventricle thrombus noted. Right ventricle is severely dilated. Left atrial appendage clot present. No mass or thrombus in the left atrium. No mass or thrombus in the right atrium. Aortic valve is trileaflet, opens well, non coronary cusp leaflet has vegetation that measures 1.8 x 1.1 cm. No mitral valve vegetation, no tricuspid valve vegetation, no pulmonic valve vegetation. Finding discussed with the patient, all questions answered. 01/13 patient is seen and examined at bedside, case discussed with the RN, no acute events overnight, during my visit the patient comfortably in bed, hemodynamically stable, alert oriented x3, getting IV antibiotics, denies chest pain, no shortness a breath, no nausea, no vomiting. 01/14 patient is seen and examined at bedside, downgraded to the medical floor, case discussed with the RN, patient hemodynamically stable, alert oriented x3, on heparin drip, no chest pain, no shortness a breath, no nausea, no vomiting. 01/15 patient is seen and examined bedside, case discussed with the RN, no acute events overnight. Patient with blood culture positive for Staphylococcus aureus, with urine culture positive for Klebsiella pneumoniae. Patient underwent DRAKE 01/11, tolerated well, LVEF 60-65%, no left ventricle thrombus noted. Right ventricle is severely dilated. Left atrial appendage clot present. No mass or thrombus in the left atrium. No mass or thrombus in the right atrium. Aortic valve is trileaflet, opens well, non coronary cusp leaflet has vegetation that measures 1.8 x 1.1 cm. No mitral valve vegetation, no tricuspid valve vegetation, no pulmonic valve vegetation. Continue heparin drip. Patient evaluated by Cardiothoracic surgeon. Medical management recommended for now. Re-evaluate possibility of aortic valve replacement in the near future. 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 Continue to follow Hematology input and recommendation Discharge plan discussed with case management, patient is uninsured, probably will have to remain admitted until completion of IV antibiotic course. 01/16 Pt seen at bedside, no acute events overnight. Most recent blood cultures are no growth to date. CV surgery suggesting aortic valve replacement may be feasible if patient recent blood cultures no growth for another 5 days. If valve replacement will not be done, patient will need to complete full course of IV antibiotics before discharge as he is unfunded. Vitals and labs are relatively unremarkable 01/17 patient seen at bedside, no acute events overnight. Most recent blood cultures are growing Gram-positive organism, we will continue with IV antibiotics. Antibiotics have been adjusted by Infectious Disease, surgery will be held. REVIEW OF SYSTEMS 12 point review of systems negative unless noted in HPI PHYSICAL EXAM GENERAL APPEARANCE: The patient is awake, alert, and oriented, in no acute cardiopulmonary distress. NEUROLOGICAL: Cranial nerves II-XII grossly intact. Motor is 5/5 in bilateral upper and lower extremities proximal to distal. No sensory deficits. HEENT: Face is symmetric. Pupils are equal and reactive. Extraocular movements are intact. NECK: Supple. No JVD. No thyromegaly. No submental, submandibular, pre- /postauricular, occipital or supraclavicular lymphadenopathy. CHEST: Normal chest expansion. No Telemetry. LUNGS: Absence of any rales, rhonchi or any wheezing. CARDIOVASCULAR: Regular. S1 and S2 normal. No appreciable rubs, murmurs or gallops. ABDOMEN: Soft, nontender, and nondistended. There is no rebound, voluntary guarding, or rigidity. : Deferred. No Ortega. EXTREMITIES: Non-edematous and not cyanotic. No clubbing. Good capillary refill. SKIN: No skin breakdown. Vital Signs (last 8hr) Date Time Temp Pulse Resp B/P (MAP) Pulse Ox O2 Delivery O2 Flow Rate FiO2 01/17/25 15:10 98.1 72 18 111/82 100 Room Air 21 LABS: Laboratory: Test 01/17/25 18:55 01/17/25 16:20 01/17/25 15:51 01/16/25 07:11 Range/Units Activated Partial Thromboplast Time 51.2 #H 26.3-35.5 SEC Gentamicin Level Peak 1.9 L 4.0-8.0 mcg/mL Whole Blood Glucose 377 #H 70-110 MG/DL Hemoglobin 11.8 L 14.0-18.0 g/dL Hematocrit 33.7 L 42-54 % Test 01/16/25 01:11 Range/Units White Blood Count 12.4 H 4.8-10.8 K/uL Red Blood Count 3.70 L 4.50-6.20 MIL/uL Mean Corpuscular Volume 91.1 79-99 fL Mean Corpuscular Hemoglobin 32.2 27.0-33.0 pg Mean Corpuscular Hemoglobin Concent 35.3 32.0-36.0 g/dL Red Cell Distribution Width 13.1 11.0-15.5 % Platelet Count 181 130-400 K/uL Mean Platelet Volume 10.5 7.5-10.5 fL Nucleated Red Blood Cells 0.0 0.0-0.19 % Sodium Level 137 136-145 mmol/L Potassium Level 4.2 3.5-5.1 mmol/L Chloride Level 108 101-111 mmol/L Carbon Dioxide Level 20 L 21-32 mmol/L Blood Urea Nitrogen 35 H 7-18 mg/dL Creatinine 1.2 0.5-1.3 mg/dL Glomerular Filtration Rate Calc 76 >90 mL/min Random Glucose 171 H 70-105 mg/dL Total Calcium 7.4 L 8.5-10.1 mg/dL Magnesium Level 1.70 L 1.80-2.40 mg/dL Total Bilirubin 0.8 0.2-1.0 mg/dL Aspartate Amino Transf (AST/SGOT) 18 10-37 U/L Alanine Aminotransferase (ALT/SGPT) 15 12-78 U/L Alkaline Phosphatase 86 50-136 U/L Total Protein 5.7 L 6.0-8.3 g/dL Albumin 2.0 L 3.5-5.0 g/dL Current Medications Medications (Trade) Dose Ordered Sig/Asya Route PRN Reason Start Time Stop Time Status Last Admin Dose Admin Acetaminophen (TYLenol 325MG TAB) 650 mg Q6H PRN PO MILD PAIN (1-3) 01/16/25 17:30 02/15/25 17:29 Acetaminophen (TYLenol 325MG TAB) 650 mg Q6H PRN PO TEMPERATURE GREATER THAN 101.5 01/05/25 02:30 02/04/25 02:29 01/16/25 17:26 650 MG Aspirin (Aspirin 81mg Chew Tab) 81 mg DAILY PO 01/05/25 09:00 01/05/25 09:53 DC Aspirin (Aspirin 81mg Ec Tab) 81 mg DAILY PO 01/16/25 09:00 02/15/25 08:59 01/17/25 09:07 81 MG Benzocaine (Cepacol Sore Throat Lozenge) 1 each Q4H PRN MM SORE THROAT 01/05/25 02:30 02/04/25 02:29 Calcium Gluconate 1 gm/Sodium Chloride 100 ml @ 0 mls/hr AD PRN IV Serum Calcium Correction 01/08/25 02:30 02/07/25 02:29 01/08/25 23:32 90 MLS/HR Cefazolin Sodium (Ancef) 2 gm Q12H IVPB 01/07/25 13:30 01/16/25 14:43 DC 01/16/25 01:12 2 GM Cefazolin Sodium (Ancef) 2 gm Q8H IVPB 01/16/25 21:30 01/17/25 13:22 DC 01/17/25 05:07 2 GM Chlordiazepoxide HCl (LIBrium 25 MG CAP) 25 mg Q8H PO 01/05/25 02:30 01/11/25 11:39 DC 01/10/25 22:23 25 MG Chlordiazepoxide HCl (LIBrium 25 MG CAP) 25 mg Q8H PRN PO WITHDRAWAL 01/11/25 12:00 01/12/25 02:29 DC Dexamethasone Sodium Phosphate 20 mg/Sodium Chloride 52 ml @ 100 mls/hr DAILY IV 01/09/25 09:00 02/08/25 08:59 01/17/25 09:08 100 MLS/HR Dexamethasone Sodium Phosphate 40 mg/Sodium Chloride 50 ml @ 100 mls/hr DAILY IV 01/06/25 14:00 01/08/25 12:16 DC 01/08/25 09:34 100 MLS/HR Dextrose (D50w) 50 ml AD PRN IV HYPOGLYCEMIA PROTOCOL 01/05/25 10:00 02/04/25 09:59 Doxycycline Hyclate 250 ml @ 125 mls/hr Q12H IV 01/05/25 10:00 01/06/25 21:05 DC 01/06/25 09:30 125 MLS/HR Doxycycline Hyclate 250 ml @ 125 mls/hr Q12H IV 01/06/25 21:30 01/16/25 14:23 DC 01/16/25 10:13 125 MLS/HR Fluconazole (DiFLUCan 100 mg TAB) 200 mg DAILY PO 01/12/25 09:00 02/11/25 08:59 01/17/25 09:07 200 MG Folic Acid (FOLic ACID 1 MG TABLET) 1 mg DAILY PO 01/07/25 10:30 02/06/25 10:29 01/17/25 09:08 1 MG Furosemide (LASix 20MG VIAL) 20 mg Q12H IV 01/07/25 16:00 01/11/25 00:56 DC 01/10/25 19:40 20 MG Gentamicin Sulfate/Sodium Chloride 100 ml @ 200 mls/hr Q12H IV 01/16/25 15:30 01/26/25 15:29 01/17/25 16:00 200 MLS/HR Glucagon (Glucagon 1mg Kit) 1 mg AD PRN IM HYPOGLYCEMIA PROTOCOL 01/05/25 10:00 02/04/25 09:59 Heparin Sodium/ Dextrose 250 ml @ 0 mls/hr PROTOCOL IV 01/11/25 14:30 02/10/25 14:29 01/17/25 16:09 13.99 MLS/HR Hydralazine HCl (APRESOLine 20MG INJ) 5 mg Q6H PRN IV For:SBP above 160;DBP above 90 01/05/25 14:30 02/04/25 14:29 01/10/25 22:24 5 MG Hydralazine HCl (APRESOLine 20MG INJ) 10 mg Q6H PRN IV For:SBP above 160;DBP above 90 01/05/25 02:30 01/05/25 09:53 DC Insulin Glargine (LANtus 100 UNITS/ML 10 ML VIAL) 15 units Q12H SQ 01/07/25 21:30 01/09/25 23:18 DC 01/09/25 13:10 15 UNITS Insulin Glargine (LANtus 100 UNITS/ML 10 ML VIAL) 20 units DAILY SQ 01/14/25 09:00 02/13/25 08:59 01/17/25 09:20 20 UNITS Insulin Glargine (LANtus 100 UNITS/ML 10 ML VIAL) 20 units HS SQ 01/06/25 21:00 01/06/25 21:05 DC Insulin Glargine (LANtus 100 UNITS/ML 10 ML VIAL) 20 units HS SQ 01/06/25 21:30 01/07/25 10:24 DC 01/06/25 21:33 20 UNITS Insulin Glargine (LANtus 100 UNITS/ML 10 ML VIAL) 20 units Q12H SQ 01/10/25 09:30 01/10/25 12:58 DC Insulin Glargine (LANtus 100 UNITS/ML 10 ML VIAL) 25 units Q12H SQ 01/10/25 21:30 01/11/25 00:50 DC 01/10/25 22:19 25 UNITS Insulin Glargine (LANtus 100 UNITS/ML 10 ML VIAL) 30 units DAILY SQ 01/12/25 09:00 01/14/25 07:03 DC 01/12/25 11:25 30 UNITS Insulin Glargine (LANtus 100 UNITS/ML 10 ML VIAL) 30 units Q12H SQ 01/11/25 09:30 01/11/25 20:13 DC 01/11/25 10:50 30 UNITS Insulin Human Regular (humuLIN R 100 UNIT/ML 3ML) 5 unit TIDAC SQ 01/14/25 07:30 02/13/25 07:29 01/17/25 16:32 5 UNIT Insulin Human Regular (humuLIN R 100 UNIT/ML 3ML) 8 unit TIDAC SQ 01/11/25 07:30 01/14/25 07:03 DC 01/13/25 19:47 8 UNIT Insulin Human Regular (humuLIN R 100 UNIT/ML 3ML) INSULIN SLIDING SCAL... ACHS SQ 01/05/25 07:30 01/05/25 09:57 DC 01/05/25 07:59 16 UNIT Insulin Human Regular (humuLIN R 100 UNIT/ML 3ML) INSULIN SLIDING SCAL... ACHS SQ 01/05/25 11:30 01/06/25 16:43 DC 01/06/25 11:50 8 UNIT Insulin Human Regular (humuLIN R 100 UNIT/ML 3ML) INSULIN SLIDING SCAL... ACHS SQ 01/06/25 17:00 01/07/25 13:32 DC 01/06/25 17:17 16 UNIT Insulin Human Regular (humuLIN R 100 UNIT/ML 3ML) INSULIN SLIDING SCAL... Q4H SQ 01/11/25 02:00 01/11/25 23:59 DC 01/11/25 20:49 6 UNIT Insulin Human Regular (humuLIN R 100 UNIT/ML 3ML) INSULIN SLIDING SCAL... Q4H SQ 01/11/25 23:59 02/10/25 23:58 01/17/25 16:31 20 UNIT Insulin Human Regular (humuLIN R 100 UNIT/ML 3ML) INSULIN SLIDING SCAL... Q6H6 SQ 01/10/25 18:00 01/11/25 00:50 DC 01/11/25 00:45 10 UNIT Insulin Human Regular 100 unit/ Sodium Chloride 100 ml @ 0 mls/hr AD PRN IV HYPERGLYCEMIA PROTOCOL 01/06/25 19:30 01/10/25 06:00 DC 01/09/25 19:10 16 MLS/HR Lactated Ringer's 1,000 ml @ 100 mls/hr Q10H IV 01/05/25 02:30 01/05/25 09:51 DC 01/05/25 02:30 100 MLS/HR Lactated Ringer's 1,000 ml @ 125 mls/hr Q8H IV 01/10/25 01:30 01/10/25 19:40 DC 01/10/25 13:07 125 MLS/HR Lactobacillus Rhamnosus ([facility] [employer]) 1 each DAILY PO 01/12/25 09:00 02/11/25 08:59 01/17/25 09:08 1 EACH Lorazepam (AtiVAN) 1 mg Q4H PRN IVP ALCOHOL WITHDRAWAL PROTOCOL 01/05/25 02:30 01/12/25 02:29 DC Magnesium Sulfate 50 ml @ 0 mls/hr PROTOCOL PRN IV h 01/05/25 02:30 02/04/25 02:29 01/13/25 04:13 25 MLS/HR Morphine Sulfate (morPHINE 2MG SYG) 2 mg Q4H PRN IVP SEVERE PAIN (7-10) 01/05/25 02:30 01/12/25 02:29 DC Multivitamins Therapeutic (Multivitamin Tablet) 1 tab DAILY PO 01/07/25 10:30 02/06/25 10:29 01/17/25 09:07 1 TAB Nafcillin Sodium (Nafcillin 2gm+ NS 100ml) 2 gm Q6H6 IV 01/17/25 18:00 01/27/25 17:59 01/17/25 18:53 2 GM Nicotine (Nicoderm) 21 mg DAILY TD 01/05/25 09:00 02/04/25 08:59 01/17/25 09:07 21 MG Nitroglycerin (Nitrostat) 0.4 mg AD PRN SL CHEST PAIN 01/05/25 02:30 02/04/25 02:29 Ondansetron HCl (zoFRAN 4MG INJ) 4 mg Q6H PRN IV NAUSEA/VOMITING 01/05/25 02:30 02/04/25 02:29 Pantoprazole Sodium (PROTonix 40MG TAB) 40 mg DAILY PO 01/05/25 09:00 02/04/25 08:59 01/17/25 09:07 40 MG Pharmacy Profile Note (Pharmacy Communication) 1 each ONCE MISC 01/16/25 14:30 01/16/25 15:12 DC Pharmacy Profile Note (Pharmacy Communication) 1 each PROTOCOL PRN MISC ETOH Withdrawal Score changes 01/05/25 02:30 01/12/25 02:29 DC Piperacillin Sod/ Tazobactam Sod (Zosyn 3.375gm+NS 50ml) 3.375 gm Q12H IV 01/05/25 02:30 01/07/25 13:24 DC 01/07/25 02:45 3.375 GM Potassium Phosphate 250 ml @ 42 mls/hr PROTOCOL PRN IV PROTOCOL 01/05/25 10:00 02/04/25 09:59 Potassium Chloride 100 ml @ 100 mls/hr AD PRN IV POTASSIUM PROTOCOL 01/05/25 02:30 01/07/25 10:12 DC Potassium Chloride 100 ml @ 100 mls/hr AD PRN IV POTASSIUM PROTOCOL 01/07/25 10:30 02/06/25 10:29 01/09/25 06:26 100 MLS/HR Potassium Chloride (K-Dur 10meq Sr Tab) 10 meq AD PRN PO POTASSIUM PROTOCOL 01/06/25 09:30 02/04/25 02:29 01/08/25 23:35 10 MEQ Potassium Chloride (K-Dur/Klor-Con 20meq) 10 meq AD PRN PO POTASSIUM PROTOCOL 01/05/25 02:30 01/06/25 09:12 DC 01/05/25 22:15 10 MEQ Potassium Chloride (K-Dur/Klor-Con 20meq) 10 meq AD PRN PO POTASSIUM PROTOCOL 01/07/25 10:30 01/07/25 10:12 DC Potassium Chloride (KCl 10% Elixir 20meq/15ml) 10 meq AD PRN PO POTASSIUM PROTOCOL 01/05/25 02:30 01/07/25 10:12 DC 01/06/25 17:16 10 MEQ Potassium Chloride (KCl 10% Elixir 20meq/15ml) 10 meq AD PRN PO POTASSIUM PROTOCOL 01/07/25 10:30 02/06/25 10:29 01/08/25 15:28 10 MEQ Sodium Bicarbonate (Sodium Bicarbonate) 1,300 mg BID PO 01/11/25 09:00 02/10/25 08:59 01/17/25 09:08 1,300 MG Sodium Chloride 1,000 ml @ 50 mls/hr Q20H IV 01/05/25 10:00 01/10/25 01:33 DC 01/09/25 05:56 50 MLS/HR Sodium Chloride 1,000 ml @ 75 mls/hr [id number] IV 01/11/25 01:00 01/11/25 13:45 DC 01/11/25 01:00 75 MLS/HR Triamcinolone Acetonide (Kenalog/ Aristocort) 1 APPLY TP BID BID TP 01/07/25 11:00 02/06/25 10:59 01/17/25 09:09 1 APPL Vancomycin HCl (Vancomycin Protocol) 1 each AD IV 01/07/25 12:30 01/07/25 12:40 DC DIAGNOSTICS / RADIOLOGY: [ ] ASSESSMENT: Severe sepsis, POA Gram-positive bacteremia secondary to Staphylococcus aureus, POA Hypodense echogenic mobile vegetation to right coronary cusp leaflet on echocardiogram 01/05/2025 Left atrial appendage clot present. on DRAKE 01/11 non coronary cusp leaflet has vegetation that measures 1.8 x 1.1 cm. on DRAKE 01/11 Urinary tract infection, secondary to Klebsiella pneumoniae, POA Strep pharyngitis, POA ITP, POA Leukocytosis, POA Hyperlactatemia, POA Acute kidney injury, POA Hypokalemia, POA Hyponatremia, POA Hypomagnesemia, POA POA New onset Uncontrolled Diabetes mellitius type2, POA Elevated troponin, POA Cocaine abuse, POA Alcohol abuse, POA Tobacco dependence, POA Significant proteinuria, POA Diabetic nephropathy, POA Gallstones, POA Fidelina esophagitis on EGD 01/11 PLAN: -patient remains admitted to the medical floor. -continue the patient on broad-spectrum IV antibiotics -results of DRAKE reviewed, Left atrial appendage clot present. on DRAKE 01/11, aortic valve is trileaflet, opens well. Non coronary cusp leaflet has vegetation that measures 1.8 x 1.1 cm. on DRAKE 01/11 -continue heparin drip. Patient already evaluated by Cardiothoracic surgeon, continue medical management, we will re-evaluate possibility of aortic valve replacement in the near future. 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 Continue to follow Hematology input and recommendation -renal function slightly improved today, patient evaluated by broadcast news producer, the patient with significant proteinuria on UA consistent with diabetic nephropathy. No acute need for any form of renal replacement therapy. -blood culture positive for Staphylococcus aureus. Urine culture positive for Klebsiella pneumoniae. Continue broad-spectrum IV antibiotics, continue to follow ID input recommendation. -case discussed with case management, patient to complete course of IV antibiotics likely during this hospitalization as the patient is uninsured. Disposition: Pending improvement in clinical condition. All questions answered time spent: > 35 min ARVIND NOLAND MD Jan 17, 2025 19:28
[2025-01-17] MEDS: MELATONIN 5 MG TABLET PO ONE (22:00)
[2025-01-18] VITALS (10 sets, daily range): BP systolic 119–137; BP diastolic 77–81; PULSE 63–94; RESP 18–20; TEMP 97.7–98.6; O2SAT 97–100
[2025-01-18 02:32] LABS: HEMATOCRIT 27.5 % (42-54); IMMATURE GRANULOCYTE ABSOLUTE 0.06 K/uL (0-1); LYMPHOCYTES # (AUTO) 0.9 K/uL (1.0-4.8); MEAN CORPUSCULAR HEMOGLOBIN 31.9 pg (27.0-33.0); MEAN CORPUSCULAR HGB CONC 34.9 g/dL (32.0-36.0); MEAN CORPUSCULAR VOLUME 91.4 fL (79-99); MONOCYTES # (AUTO) 0.7 K/uL (0.1-1.0); MONOCYTES % (AUTO) 7.4 % (3.0-13.0); PLATELET COUNT (AUTO) 160 K/uL (130-400); RED BLOOD CELL COUNT(AUTO) 3.01 MIL/uL (4.50-6.20); RED CELL DISTRIBUTION WIDTH 12.9 % (11.0-15.5); WHITE BLOOD COUNT (AUTO) 9.6 K/uL (4.8-10.8)
[2025-01-18 02:44] LABS: MAGNESIUM 1.5 mg/dL (1.80-2.40); PHOSPHORUS 3.2 mg/dL (2.5-4.9); POTASSIUM 4.4 mmol/L (3.5-5.1)
--- NOTE | 2025-01-18 07:23 | PN ---
[facility] CARDIOLOGY PROGRESS NOTE Date Patient Seen: Jan 18, 2025 Time of Visit: 07:21 Interval History: [Hematology starting oral anticoagulation today for KARINA thrombus. Physical Examination: GENERAL: [No acute distress.] HEAD: [Normal with no signs of head trauma.] EYES: [PERRLA, EOMI, conjunctiva and sclera normal.] ENT: [Hearing grossly intact, normal oropharynx.] NECK: [Supple without JVD. There is no tenderness, lymphadenopathy, or masses. No thyromegaly. Normal carotid upstrokes without bruits.] LUNGS: [Clear breath sounds bilaterally. There are right basilar rales one third of the way up the chest. No wheezes, or rhonchi.] HEART: [Normal rate and rhythm. Normal S1 and S2 without mumurs, gallop or rub.] VASC: [Peripheral pulses +2 bilaterally.] ABD: [Bowel sounds normal, soft, nontender, no masses, no organomegaly. No audible bruits.] : [Not examined] LYMPH: [No lymphadenopathy noted.] EXT: [No clubbing, cyanosis or edema.] SKIN: [No rashes or lesions noted.] NEURO: [Awake, alert, and oriented x3. No focal sensory or strength deficits noted.] Laboratory: [ ] Hematology Labs: Test 01/18/25 02:20 Range/Units White Blood Count 9.6 4.8-10.8 K/uL Red Blood Count 3.01 L 4.50-6.20 MIL/uL Hemoglobin 9.6 L 14.0-18.0 g/dL Hematocrit 27.5 L 42-54 % Mean Corpuscular Volume 91.4 79-99 fL Mean Corpuscular Hemoglobin 31.9 27.0-33.0 pg Mean Corpuscular Hemoglobin Concent 34.9 32.0-36.0 g/dL Red Cell Distribution Width 12.9 11.0-15.5 % Platelet Count 160 130-400 K/uL Mean Platelet Volume 10.8 H 7.5-10.5 fL Immature Granulocyte % (Auto) 0.6 0-1 % Neutrophils (%) (Auto) 83.0 H 40.0-77.0 % Lymphocytes (%) (Auto) 9.0 L 21.0-51.0 % Monocytes (%) (Auto) 7.4 3.0-13.0 % Eosinophils (%) (Auto) 0.0 0.0-8.0 % Basophils (%) (Auto) 0.0 0.0-5.0 % Neutrophils # (Auto) 8.0 H 1.8-7.7 K/uL Lymphocytes # (Auto) 0.9 L 1.0-4.8 K/uL Monocytes # (Auto) 0.7 0.1-1.0 K/uL Eosinophils # (Auto) 0.00 0.00-0.70 K/uL Basophils # (Auto) 0.00 0.00-0.20 K/uL Absolute Immature Granulocyte (auto 0.06 0-1 K/uL Nucleated Red Blood Cells 0.0 0.0-0.19 % Chemistry Labs: Test 01/18/25 05:11 01/18/25 02:20 Range/Units Whole Blood Glucose 161 H 70-110 MG/DL Sodium Level 141 136-145 mmol/L Potassium Level 4.4 3.5-5.1 mmol/L Chloride Level 110 101-111 mmol/L Carbon Dioxide Level 23 21-32 mmol/L Blood Urea Nitrogen 27 H 7-18 mg/dL Creatinine 1.0 0.5-1.3 mg/dL Glomerular Filtration Rate Calc 95 >90 mL/min Random Glucose 161 H 70-105 mg/dL Total Calcium 7.4 L 8.5-10.1 mg/dL Phosphorus Level 3.2 2.5-4.9 mg/dL Magnesium Level 1.50 L 1.80-2.40 mg/dL Coagulation Labs: Test 01/18/25 00:45 Range/Units Activated Partial Thromboplast Time 78.8 #H 26.3-35.5 SEC Diagnostics / Radiology: [Copy/Paste Echos/Imaging Report here] Impression and Plan: [ 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 Patient is high risk given advanced liver disease and thrombocytopenia -DRAKE on 01/11/2025 with LVEF of 60-65%, Left atrial appendage clot present, Aortic valve is trileaflet and open well. Non coronary cusp leaflet has vegetation that measures 1.81cm x 1.17cm. ID abx for MSSA for 6 weeks and repeat DRAKE at that time -blood cultures negative for 48 hours as of 01/14/2025 KARINA thrombus --Started on Heparin gtt, will transition to oral anticoagulation Thrombocytopenia with platelet count falling to 21,000 on 01/05/2025, now improved -Dr. Quinn is following, likely multi factorial including ITP Urinary tract infection with Klebsiella pneumoniae: -continue antibiotic therapy Fidelina esophagitis -will follow ID recs Comorbidities: Hypertension Hyperlipidemia Coronary artery disease status post prior PTCA and stent procedure to the LAD 12/19/2015 , presenting as a non ST segment elevation GA in the setting of hypertensive emergency Probable sleep apnea Alcohol and cocaine abuse EVANS FLORES MD Jan 18, 2025 07:23
--- NOTE | 2025-01-18 08:53 | PN ---
SUBJECTIVE: This is a 44-year-old who presents with acute bacterial endocarditis. He has been hemodynamically stable, and stabilizing the vegetation on IV antibiotics. The patient is hemodynamically stable and has no evidence of from the aortic valve endocarditis. Continue medical therapy. I have discussed with Dr. Hilario and we both agreed that dilatation of the block and IV antibiotics would be best to optimize medical condition of the patient prior to surgery. TID: [id number] RECEIPT: [id number]
--- NOTE | 2025-01-18 09:26 | PN ---
GASTROENTEROLOGY PROGRESS NOTE Date of Visit: Jan 18, 2025 Time of Visit: 09:26 Events / Notes: No acute events overnight. Patient had EGD revealing LA Grade B esophagitis. Denies fever, chills, abdominal pain, N/V, hematemesis, bloating, constipation, diarrhea, melena or hematochezia. Hgb trended down slightly today. No overt GI bleeding. Review of Systems: CONSTITUTIONAL: No malaise or change in sensation of wellbeing. ENMT: No rhinorrhea, otorrhea, sinus pain, ear ache. CARDIOVASCULAR: No angina, palpitations, orthopnea or paroxysmal dyspnea. RESPIRATORY: No SOB. GASTROINTESTINAL: No abdominal pain, nausea, vomiting, diarrhea, hematemesis, melena or change in the patient's habitual bowel movements consistency/number. GENITOURINARY: No dysuria, hematuria or change in bladder continence. MUSCULOSKELETAL: No new muscle pain or decrease in muscular strength. No new joint swelling, redness or tenderness. SKIN: No new rash. Physical Exam: GEN: Awake, alert, oriented in person, time and place, and in no acute distress. HEENT: No sinus tenderness. Tympanic membranes were not examined. No rhinorrhea. Oral pharyngeal mucosa is pink, moist and within normal limits. Neck is supple with no cervical lymphadenopathy, thyromegaly or JVD. CHEST: Inspection, palpation and percussion of the chest were unremarkable. Lung auscultation revealed normal breath sounds bilaterally. CARDIAC: PMI is within normal limits. Heart sounds are regular. Normal S1, S2. No gallop or murmur. ABD: Soft, non-tender and not distended. No peritoneal signs on palpation. No organomegaly. Normal bowel sounds. EXT: No cyanosis or clubbing. No edema. SKIN: Intact. No rashes. JOINTS: No evidence of synovitis or acute arthritis. NEURO: Alert and oriented to name, place and person. Cranial nerve examination is unremarkable. No focal motor deficits. Normal speech. Gait is normal. Strength is normal. Vital Signs (last 8hr) Date Time Temp Pulse Resp B/P (MAP) Pulse Ox O2 Delivery O2 Flow Rate FiO2 01/18/25 08:15 97.9 63 19 127/77 99 Room Air 01/18/25 07:01 65 18 01/18/25 04:00 97.7 67 20 120/79 99 Room Air Laboratory: [ ] Laboratory: Test 01/18/25 08:25 01/18/25 07:05 01/18/25 02:20 01/17/25 16:20 Range/Units Whole Blood Glucose 146 H 70-110 MG/DL Activated Partial Thromboplast Time 90.0 *H 26.3-35.5 SEC White Blood Count 9.6 4.8-10.8 K/uL Red Blood Count 3.01 L 4.50-6.20 MIL/uL Hemoglobin 9.6 L 14.0-18.0 g/dL Hematocrit 27.5 L 42-54 % Mean Corpuscular Volume 91.4 79-99 fL Mean Corpuscular Hemoglobin 31.9 27.0-33.0 pg Mean Corpuscular Hemoglobin Concent 34.9 32.0-36.0 g/dL Red Cell Distribution Width 12.9 11.0-15.5 % Platelet Count 160 130-400 K/uL Mean Platelet Volume 10.8 H 7.5-10.5 fL Immature Granulocyte % (Auto) 0.6 0-1 % Neutrophils (%) (Auto) 83.0 H 40.0-77.0 % Lymphocytes (%) (Auto) 9.0 L 21.0-51.0 % Monocytes (%) (Auto) 7.4 3.0-13.0 % Eosinophils (%) (Auto) 0.0 0.0-8.0 % Basophils (%) (Auto) 0.0 0.0-5.0 % Neutrophils # (Auto) 8.0 H 1.8-7.7 K/uL Lymphocytes # (Auto) 0.9 L 1.0-4.8 K/uL Monocytes # (Auto) 0.7 0.1-1.0 K/uL Eosinophils # (Auto) 0.00 0.00-0.70 K/uL Basophils # (Auto) 0.00 0.00-0.20 K/uL Absolute Immature Granulocyte (auto 0.06 0-1 K/uL Nucleated Red Blood Cells 0.0 0.0-0.19 % Sodium Level 141 136-145 mmol/L Potassium Level 4.4 3.5-5.1 mmol/L Chloride Level 110 101-111 mmol/L Carbon Dioxide Level 23 21-32 mmol/L Blood Urea Nitrogen 27 H 7-18 mg/dL Creatinine 1.0 0.5-1.3 mg/dL Glomerular Filtration Rate Calc 95 >90 mL/min Random Glucose 161 H 70-105 mg/dL Total Calcium 7.4 L 8.5-10.1 mg/dL Phosphorus Level 3.2 2.5-4.9 mg/dL Magnesium Level 1.50 L 1.80-2.40 mg/dL Gentamicin Level Trough 0.7 0.0-2.0 mcg/mL Gentamicin Level Peak 1.9 L 4.0-8.0 mcg/mL Current Medications Medications (Trade) Dose Ordered Sig/Asya Route PRN Reason Start Time Stop Time Status Last Admin Dose Admin Acetaminophen (TYLenol 325MG TAB) 650 mg Q6H PRN PO MILD PAIN (1-3) 01/16/25 17:30 02/15/25 17:29 Acetaminophen (TYLenol 325MG TAB) 650 mg Q6H PRN PO TEMPERATURE GREATER THAN 101.5 01/05/25 02:30 02/04/25 02:29 01/16/25 17:26 650 MG Aspirin (Aspirin 81mg Chew Tab) 81 mg DAILY PO 01/05/25 09:00 01/05/25 09:53 DC Aspirin (Aspirin 81mg Ec Tab) 81 mg DAILY PO 01/16/25 09:00 02/15/25 08:59 01/18/25 08:33 81 MG Benzocaine (Cepacol Sore Throat Lozenge) 1 each Q4H PRN MM SORE THROAT 01/05/25 02:30 02/04/25 02:29 Calcium Gluconate 1 gm/Sodium Chloride 100 ml @ 0 mls/hr AD PRN IV Serum Calcium Correction 01/08/25 02:30 02/07/25 02:29 01/08/25 23:32 90 MLS/HR Cefazolin Sodium (Ancef) 2 gm Q12H IVPB 01/07/25 13:30 01/16/25 14:43 DC 01/16/25 01:12 2 GM Cefazolin Sodium (Ancef) 2 gm Q8H IVPB 01/16/25 21:30 01/17/25 13:22 DC 01/17/25 05:07 2 GM Chlordiazepoxide HCl (LIBrium 25 MG CAP) 25 mg Q8H PO 01/05/25 02:30 01/11/25 11:39 DC 01/10/25 22:23 25 MG Chlordiazepoxide HCl (LIBrium 25 MG CAP) 25 mg Q8H PRN PO WITHDRAWAL 01/11/25 12:00 01/12/25 02:29 DC Dexamethasone Sodium Phosphate 20 mg/Sodium Chloride 52 ml @ 100 mls/hr DAILY IV 01/09/25 09:00 02/08/25 08:59 01/17/25 09:08 100 MLS/HR Dexamethasone Sodium Phosphate 40 mg/Sodium Chloride 50 ml @ 100 mls/hr DAILY IV 01/06/25 14:00 01/08/25 12:16 DC 01/08/25 09:34 100 MLS/HR Dextrose (D50w) 50 ml AD PRN IV HYPOGLYCEMIA PROTOCOL 01/05/25 10:00 02/04/25 09:59 Doxycycline Hyclate 250 ml @ 125 mls/hr Q12H IV 01/05/25 10:00 01/06/25 21:05 DC 01/06/25 09:30 125 MLS/HR Doxycycline Hyclate 250 ml @ 125 mls/hr Q12H IV 01/06/25 21:30 01/16/25 14:23 DC 01/16/25 10:13 125 MLS/HR Fluconazole (DiFLUCan 100 mg TAB) 200 mg DAILY PO 01/12/25 09:00 02/11/25 08:59 01/18/25 08:33 200 MG Folic Acid (FOLic ACID 1 MG TABLET) 1 mg DAILY PO 01/07/25 10:30 02/06/25 10:29 01/18/25 08:32 1 MG Furosemide (LASix 20MG VIAL) 20 mg Q12H IV 01/07/25 16:00 01/11/25 00:56 DC 01/10/25 19:40 20 MG Gentamicin Sulfate/Sodium Chloride 100 ml @ 200 mls/hr Q12H IV 01/16/25 15:30 01/18/25 03:39 DC 01/17/25 16:00 200 MLS/HR Gentamicin Sulfate/Sodium Chloride 100 ml @ 200 mls/hr Q12H IV 01/18/25 04:00 01/28/25 03:59 01/18/25 04:19 200 MLS/HR Glucagon (Glucagon 1mg Kit) 1 mg AD PRN IM HYPOGLYCEMIA PROTOCOL 01/05/25 10:00 3/8/25 09:59 Heparin Sodium/ Dextrose 250 ml @ 0 mls/hr PROTOCOL IV 01/11/25 14:30 02/10/25 14:29 01/17/25 16:09 13.99 MLS/HR Hydralazine HCl (APRESOLine 20MG INJ) 5 mg Q6H PRN IV For:SBP above 160;DBP above 90 01/05/25 14:30 02/04/25 14:29 01/10/25 22:24 5 MG Hydralazine HCl (APRESOLine 20MG INJ) 10 mg Q6H PRN IV For:SBP above 160;DBP above 90 01/05/25 02:30 01/05/25 09:53 DC Insulin Glargine (LANtus 100 UNITS/ML 10 ML VIAL) 15 units Q12H SQ 01/07/25 21:30 01/09/25 23:18 DC 01/09/25 13:10 15 UNITS Insulin Glargine (LANtus 100 UNITS/ML 10 ML VIAL) 20 units DAILY SQ 01/14/25 09:00 02/13/25 08:59 01/18/25 08:45 20 UNITS Insulin Glargine (LANtus 100 UNITS/ML 10 ML VIAL) 20 units HS SQ 01/06/25 21:00 01/06/25 21:05 DC Insulin Glargine (LANtus 100 UNITS/ML 10 ML VIAL) 20 units HS SQ 01/06/25 21:30 01/07/25 10:24 DC 01/06/25 21:33 20 UNITS Insulin Glargine (LANtus 100 UNITS/ML 10 ML VIAL) 20 units Q12H SQ 01/10/25 09:30 01/10/25 12:58 DC Insulin Glargine (LANtus 100 UNITS/ML 10 ML VIAL) 25 units Q12H SQ 01/10/25 21:30 01/11/25 00:50 DC 01/10/25 22:19 25 UNITS Insulin Glargine (LANtus 100 UNITS/ML 10 ML VIAL) 30 units DAILY SQ 01/12/25 09:00 01/14/25 07:03 DC 01/12/25 11:25 30 UNITS Insulin Glargine (LANtus 100 UNITS/ML 10 ML VIAL) 30 units Q12H SQ 01/11/25 09:30 01/11/25 20:13 DC 01/11/25 10:50 30 UNITS Insulin Human Regular (humuLIN R 100 UNIT/ML 3ML) 5 unit TIDAC SQ 01/14/25 07:30 02/13/25 07:29 01/18/25 06:13 5 UNIT Insulin Human Regular (humuLIN R 100 UNIT/ML 3ML) 8 unit TIDAC SQ 01/11/25 07:30 01/14/25 07:03 DC 01/13/25 19:47 8 UNIT Insulin Human Regular (humuLIN R 100 UNIT/ML 3ML) INSULIN SLIDING SCAL... ACHS SQ 01/05/25 07:30 01/05/25 09:57 DC 01/05/25 07:59 16 UNIT Insulin Human Regular (humuLIN R 100 UNIT/ML 3ML) INSULIN SLIDING SCAL... ACHS SQ 01/05/25 11:30 01/06/25 16:43 DC 01/06/25 11:50 8 UNIT Insulin Human Regular (humuLIN R 100 UNIT/ML 3ML) INSULIN SLIDING SCAL... ACHS SQ 01/06/25 17:00 01/07/25 13:32 DC 01/06/25 17:17 16 UNIT Insulin Human Regular (humuLIN R 100 UNIT/ML 3ML) INSULIN SLIDING SCAL... Q4H SQ 01/11/25 02:00 01/11/25 23:59 DC 01/11/25 20:49 6 UNIT Insulin Human Regular (humuLIN R 100 UNIT/ML 3ML) INSULIN SLIDING SCAL... Q4H SQ 01/11/25 23:59 02/10/25 23:58 01/18/25 08:44 4 UNIT Insulin Human Regular (humuLIN R 100 UNIT/ML 3ML) INSULIN SLIDING SCAL... Q6H6 SQ 01/10/25 18:00 01/11/25 00:50 DC 01/11/25 00:45 10 UNIT Insulin Human Regular 100 unit/ Sodium Chloride 100 ml @ 0 mls/hr AD PRN IV HYPERGLYCEMIA PROTOCOL 01/06/25 19:30 01/10/25 06:00 DC 01/09/25 19:10 16 MLS/HR Lactated Ringer's 1,000 ml @ 100 mls/hr Q10H IV 01/05/25 02:30 01/05/25 09:51 DC 01/05/25 02:30 100 MLS/HR Lactated Ringer's 1,000 ml @ 125 mls/hr Q8H IV 01/10/25 01:30 01/10/25 19:40 DC 01/10/25 13:07 125 MLS/HR Lactobacillus Rhamnosus ([facility] [email or web address]) 1 each DAILY PO 01/12/25 09:00 02/11/25 08:59 01/18/25 08:32 1 EACH Lorazepam (AtiVAN) 1 mg Q4H PRN IVP ALCOHOL WITHDRAWAL PROTOCOL 01/05/25 02:30 01/12/25 02:29 DC Magnesium Sulfate 50 ml @ 0 mls/hr PROTOCOL PRN IV h 01/05/25 02:30 02/04/25 02:29 01/18/25 08:34 25 MLS/HR Morphine Sulfate (morPHINE 2MG SYG) 2 mg Q4H PRN IVP SEVERE PAIN (7-10) 01/05/25 02:30 01/12/25 02:29 DC Multivitamins Therapeutic (Multivitamin Tablet) 1 tab DAILY PO 01/07/25 10:30 02/06/25 10:29 01/18/25 08:32 1 TAB Nafcillin Sodium (Nafcillin 2gm+ NS 100ml) 2 gm Q6H6 IV 01/17/25 18:00 01/27/25 17:59 01/18/25 06:12 2 GM Nicotine (Nicoderm) 21 mg DAILY TD 01/05/25 09:00 02/04/25 08:59 01/18/25 08:33 21 MG Nitroglycerin (Nitrostat) 0.4 mg AD PRN SL CHEST PAIN 01/05/25 02:30 02/04/25 02:29 Nystatin (NYSTatin 559389 UNIT/ML 5ML UDCUP) 100,000 UNITS 1 ML TO E... QID PO 01/18/25 09:00 02/17/25 08:59 Ondansetron HCl (zoFRAN 4MG INJ) 4 mg Q6H PRN IV NAUSEA/VOMITING 01/05/25 02:30 02/04/25 02:29 Pantoprazole Sodium (PROTonix 40MG TAB) 40 mg DAILY PO 01/05/25 09:00 02/04/25 08:59 01/18/25 08:32 40 MG Pharmacy Profile Note (Pharmacy Communication) 1 each ONCE MISC 01/16/25 14:30 01/16/25 15:12 DC Pharmacy Profile Note (Pharmacy Communication) 1 each PROTOCOL PRN MISC ETOH Withdrawal Score changes 01/05/25 02:30 01/12/25 02:29 DC Piperacillin Sod/ Tazobactam Sod (Zosyn 3.375gm+NS 50ml) 3.375 gm Q12H IV 01/05/25 02:30 01/07/25 13:24 DC 01/07/25 02:45 3.375 GM Potassium Phosphate 250 ml @ 42 mls/hr PROTOCOL PRN IV PROTOCOL 01/05/25 10:00 02/04/25 09:59 Potassium Chloride 100 ml @ 100 mls/hr AD PRN IV POTASSIUM PROTOCOL 01/05/25 02:30 01/07/25 10:12 DC Potassium Chloride 100 ml @ 100 mls/hr AD PRN IV POTASSIUM PROTOCOL 01/07/25 10:30 02/06/25 10:29 01/09/25 06:26 100 MLS/HR Potassium Chloride (K-Dur 10meq Sr Tab) 10 meq AD PRN PO POTASSIUM PROTOCOL 01/06/25 09:30 02/04/25 02:29 01/08/25 23:35 10 MEQ Potassium Chloride (K-Dur/Klor-Con 20meq) 10 meq AD PRN PO POTASSIUM PROTOCOL 01/05/25 02:30 01/06/25 09:12 DC 01/05/25 22:15 10 MEQ Potassium Chloride (K-Dur/Klor-Con 20meq) 10 meq AD PRN PO POTASSIUM PROTOCOL 01/07/25 10:30 01/07/25 10:12 DC Potassium Chloride (KCl 10% Elixir 20meq/15ml) 10 meq AD PRN PO POTASSIUM PROTOCOL 01/05/25 02:30 01/07/25 10:12 DC 01/06/25 17:16 10 MEQ Potassium Chloride (KCl 10% Elixir 20meq/15ml) 10 meq AD PRN PO POTASSIUM PROTOCOL 01/07/25 10:30 02/06/25 10:29 01/08/25 15:28 10 MEQ Sodium Bicarbonate (Sodium Bicarbonate) 1,300 mg BID PO 01/11/25 09:00 02/10/25 08:59 01/18/25 08:32 1,300 MG Sodium Chloride 1,000 ml @ 50 mls/hr Q20H IV 01/05/25 10:00 01/10/25 01:33 DC 01/09/25 05:56 50 MLS/HR Sodium Chloride 1,000 ml @ 75 mls/hr [id number] IV 01/11/25 01:00 01/11/25 13:45 DC 01/11/25 01:00 75 MLS/HR Triamcinolone Acetonide (Kenalog/ Aristocort) 1 APPLY TP BID BID TP 01/07/25 11:00 02/06/25 10:59 01/17/25 20:36 1 APPL Vancomycin HCl (Vancomycin Protocol) 1 each AD IV 01/07/25 12:30 01/07/25 12:40 DC Diagnostics / Radiology: [COPY/PASTE HERE IF NO REPORTS PLEASE DELETE SECTION] Assessment: GERD esophagitis Decompensated cirrhosis Thrombocytopenia Abnormal troponin Alcohol abuse Plan: Follow cardio recommendations Will obtain liver serologies to r/o other liver pathology Please contact our service if the patient has significant bleeding such as hematemesis and we can proceed sooner with the EGD Thanks you for allowing us to participate in the care of this patient! HILDA MUIR LINER ASSEMBLER Jan 18, 2025 09:26
[2025-01-18] MEDS: NYSTatin 100000 UNIT/ML 5ML UDCUP PO SCH (12:43)
--- NOTE | 2025-01-18 13:33 | PN ---
[facility] PROGRESS NOTE Date Patient Seen: Jan 18, 2025 Time of Visit: 13:32 Supervising Physician: Dr. Yuri Fitzgerald Primary Care Physician: Search Planner PCP Outpatient Specialists: [ ] Inpatient Consults:Critical care, Hematology, cardiology and nephrology PROBLEM LIST: Endocarditis POA DRAKE on 01/11/25 with 1.1 cm aortic valve vegetation and Left Atrial Appendage thrombus Severe sepsis and shock POA, resolving Fidelina Esophagitis per EGD results 01/11/25 Urinary tract infection, POA Klebsiella pneumoniae cultured in the urine Staph aureus bacteremia POA Strep pharyngitis, POA Acute kidney injury, POA improving Electrolyte derangement POA ( hypokalemia, Hyponatremia) 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 Uncontrolled Diabetes mellitius type2, POA HgA1C 8.5 NTEMI Type II TX POA PolySubstance abuse, POA, (cocaine/Marijuana) Alcohol dependence, POA Tobacco dependence, POA Acute cholecystitis on HIDA scan 01/07/25 POA Hepatomegaly with hepato steatosis MELD score on admission of 31 Morbid obesity Noncompliance behavior PLAN SUMMARY: Monitor for any signs of bleeding Supplemental oxygen as needed Wean off as tolerated Duo nebs as needed Continue BiPAP nightly and p.r.n. IS while awake Continue cefazolin Continue doxycycline Continue fluconazole Patient will need a pulmonary f/u as an outpatient for evaluation of suspected sleep apnea INTERVAL HISTORY: Patient evaluated at bedside, sitting in his chair, patient is on room air at this time, denies any chest pain or shortness of breath. He denies any nausea or vomiting episodes, no overnight events reported by nursing staff. Patient at this time has pending completion of IV antibiotics for endocarditis, recommendations for aortic valve replacement. We will continue to see the patient on the four periodically, should her services be required we will be here for recommendations. REVIEW OF SYSTEMS: 12 point ROS reviewed with patient. Pertinent positives mentioned above. Otherwise negative. PHYSICAL EXAM: GENERAL: alert, weak, awake oriented x 3 HEENT: EOMI, Sclera non icteric, moist mucosa NECK: Supple, no JVD, trachea midline LUNGS: Clear breath sounds bilaterally. No wheezes HEART: Regular rate and rhythm. Normal S1 and S2, without murmurs ABD: Abdomen soft, nontender. Bowel sounds present EXT: No clubbing cyanosis or edema NEURO: Alert and oriented to person, follows commands Vital Signs (last 8hr) Date Time Temp Pulse Resp B/P (MAP) Pulse Ox O2 Delivery O2 Flow Rate FiO2 01/18/25 11:20 98.4 70 18 127/80 100 Room Air 21 01/18/25 08:15 97.9 63 19 127/77 99 Room Air 01/18/25 07:01 65 18 LABS: Hematology Labs: Test 01/18/25 02:20 Range/Units White Blood Count 9.6 4.8-10.8 K/uL Red Blood Count 3.01 L 4.50-6.20 MIL/uL Hemoglobin 9.6 L 14.0-18.0 g/dL Hematocrit 27.5 L 42-54 % Mean Corpuscular Volume 91.4 79-99 fL Mean Corpuscular Hemoglobin 31.9 27.0-33.0 pg Mean Corpuscular Hemoglobin Concent 34.9 32.0-36.0 g/dL Red Cell Distribution Width 12.9 11.0-15.5 % Platelet Count 160 130-400 K/uL Mean Platelet Volume 10.8 H 7.5-10.5 fL Immature Granulocyte % (Auto) 0.6 0-1 % Neutrophils (%) (Auto) 83.0 H 40.0-77.0 % Lymphocytes (%) (Auto) 9.0 L 21.0-51.0 % Monocytes (%) (Auto) 7.4 3.0-13.0 % Eosinophils (%) (Auto) 0.0 0.0-8.0 % Basophils (%) (Auto) 0.0 0.0-5.0 % Neutrophils # (Auto) 8.0 H 1.8-7.7 K/uL Lymphocytes # (Auto) 0.9 L 1.0-4.8 K/uL Monocytes # (Auto) 0.7 0.1-1.0 K/uL Eosinophils # (Auto) 0.00 0.00-0.70 K/uL Basophils # (Auto) 0.00 0.00-0.20 K/uL Absolute Immature Granulocyte (auto 0.06 0-1 K/uL Nucleated Red Blood Cells 0.0 0.0-0.19 % Chemistry Labs: Test 01/18/25 11:52 01/18/25 02:20 Range/Units Whole Blood Glucose 82 70-110 MG/DL Sodium Level 141 136-145 mmol/L Potassium Level 4.4 3.5-5.1 mmol/L Chloride Level 110 101-111 mmol/L Carbon Dioxide Level 23 21-32 mmol/L Blood Urea Nitrogen 27 H 7-18 mg/dL Creatinine 1.0 0.5-1.3 mg/dL Glomerular Filtration Rate Calc 95 >90 mL/min Random Glucose 161 H 70-105 mg/dL Total Calcium 7.4 L 8.5-10.1 mg/dL Phosphorus Level 3.2 2.5-4.9 mg/dL Magnesium Level 1.50 L 1.80-2.40 mg/dL Coagulation Labs: Test 01/18/25 07:05 Range/Units Activated Partial Thromboplast Time 90.0 *H 26.3-35.5 SEC DIAGNOSTICS / RADIOLOGY RESULTS: [ ] PLAN Monitor for any signs of bleeding Continues with antibiotic and antifungal treatment follow extractor filler recommendations follow up with application helper for further recommendations [facility] protocol NEURO: Minimize central acting medications as possible. Maintain fall precautions, adequate lighting during the day PULMONARY: Supplemental 02 as needed. Maintain aspiration precautions at all times CARDIOVASCULAR: Follow hemodynamics. Vital signs per facility protocol GI & NUTRITION: Continue with nutritional support. Continue stool softeners and laxatives as needed. KIDNEYS & ELECTROLYTES: Strict monitoring of intake, output and overall fluid balance. Avoid nephrotoxic medications to the extent possible. Medications to be dosed according to renal function. Monitor electrolytes and replace as needed ENDOCRINE: Maintain blood glucose between 100-180 at all times. Hypoglycemia protocol in place INFECTIOUS DISEASE: Trend temperature, WBC and procalcitonin level Follow cultures, deescalate antibiotics as soon as possible. Panculture if new onset fever ONCOLOGY/HEMATOLOGY/COAGULATION: Monitor for s/s of bleeding Monitor hemoglobin, coagulation studies as needed SKIN: Pressure ulcer prevention per facility protocol Specialty mattress ORTHO/REHAB: Continue PT/OT Prophylaxis: Continue GI and DVT prophylaxis Code Status: Full Resuscitation Dispo: As per attending Total time spent greater than 35 minutes MARITZA HORNER Jan 18, 2025 13:33
--- NOTE | 2025-01-18 15:11 | HMCIMG ---
US VENOUS DOPPLER UNILATERAL REASON: lle edeam COMPARISON: None Technique: Left venous doppler ultrasound was performed with spectral analysis and color flow imaging technique. FINDINGS: There is a normal appearance of the common femoral, deep femoral, the profunda femoris and popliteal veins. Proximal calf veins appear normal as well. There is normal response to compression and augmentation. There is no evidence of deep venous thrombosis. IMPRESSION: 1. No evidence of deep venous thrombosis in the left lower extremity. 2. There is a small Matthews cyst behind the left knee, 1.7 x 2.6 cm.
--- NOTE | 2025-01-18 15:21 | PN ---
[facility] PROGRESS NOTE Date of Service: Jan 18, 2025 Time of Service: 15:00 SUBJECTIVE: [ ] The patient has been seen and examined at bedside, no acute events overnight, the patient is comfortable, cooperating well, alert oriented x3, he is on a CIWA protocol, not combative. BP 123/70, rest of vital signs unremarkable. Patient received transfusion of 1 unit of platelet, platelet count improved to 27, per bone glue maker, likely due to splenomegaly. Echocardiogram reviewed, hypodense echogenic mobile vegetation to right coronary cusp leaflet, per cardiology once platelet count is greater than 50 1000 we will proceed with a a DRAKE. The pa tient also with a elevated blood sugar, continue insulin sliding scale, add insulin glargine 20 units subcutaneously at bedtime. Continue the patient on broad-spectrum IV antibiotics, continue to trend WBC in a.m.. 01/07 patient is seen and examined at bedside, case discussed with the RN, patient upgraded last night to the ICU to start insulin drip as blood glucose per sistently greater than 400. Patient started on dexamethasone IV by bone glue maker do to ITP. Platelet count slightly better today at 41. Upon my initial encounter with the patient admitted that he drinks more than 18 beers per day. He was started on CIWA protocol, however has remained hemodynamically stable, comfortable in bed, no signs of withdrawal, cooperating fine. Not agitated, not combative. Toxicology screen positive for cocaine. Sodium level slowly improvi ng, today 132. Serology positive for influenza type A. The patient with significant proteinuria consistent with diabetic nephropathy, creatinine slowly trending down, no need for renal replacement therapy per management professional. Patient with blood culture positive for Staphylococcus aureus, with urine culture positive for Klebsiella pneumoniae. We will add vancomycin IV pharmacy to dose. We will request Infectious Disease consultation. Echocardiogram reviewed, hypodense echogenic mobile vegetation to right coronary cusp leaflet, per cardiology once platelet count is greater than 50 1000 we will proceed with a a DRAKE. CT abdomen with gallstones in the gallbladder. HIDA scan pending 01/08 patient seen at bedside, no acute events overnight. He continues on insulin drip with an anion gap of 14, we will continue until the gap is closed. P latelets 54, we will follow up with Cardiology on optimal timing for DRAKE. Continue with IV antibiotics, further care per critical Care. 2/10 patient seen at bedside, no acute events overnight. Anion gap is still open at 14, we will continue IV insulin. Platelets improved from 54 up to 71, CO2 decreased from 17 down to 15. Cardiology planning on DRAKE today, we will follow up postprocedure. Repeat blood cultures are positive for Gram-positive organisms which further supports underlying endocarditis. Continue with IV antibiotics, appreciate Infectious Disease recommendations. He has been afebrile, hemodynamically stable saturating well on room air. WBC increased from 12.8 up to 13.6, BUN decreased from 93 down to 90, creatinine decreased from 2.5 down to 2.3, remainder of his labs are relatively unremarkable. 01/10 Pt seen at bedside, no acute events overnight. Pt with anion gap of 14, CO2 still low at 16. Repeat lactic acid was ordered, elevated at 4.8, will bolus patient and continue with IV fluids. DRAKE was rescheduled to today, will follow up with results.WBC improved from 13.6 down to 11.7, Hgb decreased from 15.1 down to 12.4, platelets decreased from 71 down to 66, this substantial decrease in all cell lines suggests hemodilution, creatinine decreased from 2.2 down to 1.4, also likely falsely depressed. 01/11 Pt seen at bedside, no acute events overnight. Pending EGD to assess for esophageal varices and DRAKE today, will follow up post procedure. Yesterday repeat lactic acid was elevated at 4.8, the patient was bolused and it improved down to 1.3. He has been afebrile, hemodynamically stable, saturating well on room air. WBC increased from 11.7 up to 12.5, platelets improved from 66 up to 113, creatinine increased from 1.6 up to 1.8, CO2 improved from 17 up to 22 after patient was started on bicarb. Third set of blood cultures growing gram positive organisms 01/12 patient is seen and examined at bedside, case discussed with the RN, no acute events overnight, remains on broad-spectrum IV antibiotics, alert oriented x3, following commands. Patient underwent DRAKE 01/11, tolerated well, LVEF 60- 65%, no left ventricle thrombus noted. Right ventricle is severely dilated. Left atrial appendage clot present. No mass or thrombus in the left atrium. No mass or thrombus in the right atrium. Aortic valve is trileaflet, opens well, non coronary cusp leaflet has vegetation that measures 1.8 x 1.1 cm. No mitral valve vegetation, no tricuspid valve vegetation, no pulmonic valve vegetation. Finding discussed with the patient, all questions answered. 01/13 patient is seen and examined at bedside, case discussed with the RN, no acute events overnight, during my visit the patient comfortably in bed, hemodynamically stable, alert oriented x3, getting IV antibiotics, denies chest pain, no shortness a breath, no nausea, no vomiting. 01/14 patient is seen and examined at bedside, downgraded to the medical floor, case discussed with the RN, patient hemodynamically stable, alert oriented x3, on heparin drip, no chest pain, no shortness a breath, no nausea, no vomiting. 01/15 patient is seen and examined bedside, case discussed with the RN, no acute events overnight. Patient with blood culture positive for Staphylococcus aureus, with urine culture positive for Klebsiella pneumoniae. Patient underwent DRAKE 01/11, tolerated well, LVEF 60-65%, no left ventricle thrombus noted. Right ventricle is severely dilated. Left atrial appendage clot present. No mass or thrombus in the left atrium. No mass or thrombus in the right atrium. Aortic valve is trileaflet, opens well, non coronary cusp leaflet has vegetation that measures 1.8 x 1.1 cm. No mitral valve vegetation, no tricuspid valve vegetation, no pulmonic valve vegetation. Continue heparin drip. Patient evaluated by Cardiothoracic surgeon. Medical management recommended for now. Re-evaluate possibility of aortic valve replacement in the near future. 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 Continue to follow Hematology input and recommendation Discharge plan discussed with case management, patient is uninsured, probably will have to remain admitted until completion of IV antibiotic course. 01/16 Pt seen at bedside, no acute events overnight. Most recent blood cultures are no growth to date. CV surgery suggesting aortic valve replacement may be feasible if patient recent blood cultures no growth for another 5 days. If valve replacement will not be done, patient will need to complete full course of IV antibiotics before discharge as he is unfunded. Vitals and labs are relatively unremarkable 01/17 patient seen at bedside, no acute events overnight. Most recent blood cultures are growing Gram-positive organism, we will continue with IV antibiotics. Antibiotics have been adjusted by Infectious Disease, surgery will be held. 01/18 patient seen at bedside, no acute events overnight. Continue with broad- spectrum antibiotics, we will follow up with cardiovascular surgery regarding possible surgery once infection better controlled. Discussed case with bone glue maker who recommends heparin drip however patient we will need to be anticoagulated on discharge and given his own fundus status we will likely need to be started on warfarin. Vitals and labs relatively unremarkable. REVIEW OF SYSTEMS 12 point review of systems negative unless noted in HPI PHYSICAL EXAM GENERAL APPEARANCE: The patient is awake, alert, and oriented, in no acute c ardiopulmonary distress. NEUROLOGICAL: Cranial nerves II-XII grossly intact. Motor is 5/5 in bilateral upper and lower extremities proximal to distal. No sensory deficits. HEENT: Face is symmetric. Pupils are equal and reactive. Extraocular movements are intact. NECK: Supple. No JVD. No thyromegaly. No submental, submandibular, pre- /postauricular, occipital or supraclavicular lymphadenopathy. CHEST: Normal chest expansion. No Telemetry. LUNGS: Absence of any rales, rhonchi or any wheezing. CARDIOVASCULAR: Regular. S1 and S2 normal. No appreciable rubs, murmurs or gallops. ABDOMEN: Soft, nontender, and nondistended. There is no rebound, voluntary guarding, or rigidity. : Deferred. No Ortega. EXTREMITIES: Non-edematous and not cyanotic. No clubbing. Good capillary refill. SKIN: No skin breakdown. Vital Signs (last 8hr) Date Time Temp Pulse Resp B/P (MAP) Pulse Ox O2 Delivery O2 Flow Rate FiO2 01/18/25 11:20 98.4 70 18 127/80 100 Room Air 21 01/18/25 08:15 97.9 63 19 127/77 99 Room Air LABS: Laboratory: Test 01/18/25 13:18 01/18/25 11:52 01/18/25 02:20 01/17/25 16:20 Range/Units Activated Partial Thromboplast Time 47.3 #H 26.3-35.5 SEC Whole Blood Glucose 82 70-110 MG/DL White Blood Count 9.6 4.8-10.8 K/uL Red Blood Count 3.01 L 4.50-6.20 MIL/uL Hemoglobin 9.6 L 14.0-18.0 g/dL Hematocrit 27.5 L 42-54 % Mean Corpuscular Volume 91.4 79-99 fL Mean Corpuscular Hemoglobin 31.9 27.0-33.0 pg Mean Corpuscular Hemoglobin Concent 34.9 32.0-36.0 g/dL Red Cell Distribution Width 12.9 11.0-15.5 % Platelet Count 160 130-400 K/uL Mean Platelet Volume 10.8 H 7.5-10.5 fL Immature Granulocyte % (Auto) 0.6 0-1 % Neutrophils (%) (Auto) 83.0 H 40.0-77.0 % Lymphocytes (%) (Auto) 9.0 L 21.0-51.0 % Monocytes (%) (Auto) 7.4 3.0-13.0 % Eosinophils (%) (Auto) 0.0 0.0-8.0 % Basophils (%) (Auto) 0.0 0.0-5.0 % Neutrophils # (Auto) 8.0 H 1.8-7.7 K/uL Lymphocytes # (Auto) 0.9 L 1.0-4.8 K/uL Monocytes # (Auto) 0.7 0.1-1.0 K/uL Eosinophils # (Auto) 0.00 0.00-0.70 K/uL Basophils # (Auto) 0.00 0.00-0.20 K/uL Absolute Immature Granulocyte (auto 0.06 0-1 K/uL Nucleated Red Blood Cells 0.0 0.0-0.19 % Sodium Level 141 136-145 mmol/L Potassium Level 4.4 3.5-5.1 mmol/L Chloride Level 110 101-111 mmol/L Carbon Dioxide Level 23 21-32 mmol/L Blood Urea Nitrogen 27 H 7-18 mg/dL Creatinine 1.0 0.5-1.3 mg/dL Glomerular Filtration Rate Calc 95 >90 mL/min Random Glucose 161 H 70-105 mg/dL Total Calcium 7.4 L 8.5-10.1 mg/dL Phosphorus Level 3.2 2.5-4.9 mg/dL Magnesium Level 1.50 L 1.80-2.40 mg/dL Gentamicin Level Trough 0.7 0.0-2.0 mcg/mL Gentamicin Level Peak 1.9 L 4.0-8.0 mcg/mL Current Medications Medications (Trade) Dose Ordered Sig/Asya Route PRN Reason Start Time Stop Time Status Last Admin Dose Admin Acetaminophen (TYLenol 325MG TAB) 650 mg Q6H PRN PO MILD PAIN (1-3) 01/16/25 17:30 02/15/25 17:29 Acetaminophen (TYLenol 325MG TAB) 650 mg Q6H PRN PO TEMPERATURE GREATER THAN 101.5 01/05/25 02:30 02/04/25 02:29 01/16/25 17:26 650 MG Apixaban (EliquIS) 5 mg BID PO 01/25/25 21:00 02/24/25 20:59 Apixaban (EliquIS) 10 mg BID PO 01/18/25 21:00 01/18/25 13:52 DC Apixaban (EliquIS) 10 mg BID PO 01/18/25 21:00 01/25/25 20:59 Aspirin (Aspirin 81mg Chew Tab) 81 mg DAILY PO 01/05/25 09:00 01/05/25 09:53 DC Aspirin (Aspirin 81mg Ec Tab) 81 mg DAILY PO 01/16/25 09:00 02/15/25 08:59 01/18/25 08:33 81 MG Benzocaine (Cepacol Sore Throat Lozenge) 1 each Q4H PRN MM SORE THROAT 01/05/25 02:30 02/04/25 02:29 Calcium Gluconate 1 gm/Sodium Chloride 100 ml @ 0 mls/hr AD PRN IV Serum Calcium Correction 01/08/25 02:30 02/07/25 02:29 01/08/25 23:32 90 MLS/HR Cefazolin Sodium (Ancef) 2 gm Q12H IVPB 01/07/25 13:30 01/16/25 14:43 DC 01/16/25 01:12 2 GM Cefazolin Sodium (Ancef) 2 gm Q8H IVPB 01/16/25 21:30 01/17/25 13:22 DC 01/17/25 05:07 2 GM Chlordiazepoxide HCl (LIBrium 25 MG CAP) 25 mg Q8H PO 01/05/25 02:30 01/11/25 11:39 DC 01/10/25 22:23 25 MG Chlordiazepoxide HCl (LIBrium 25 MG CAP) 25 mg Q8H PRN PO WITHDRAWAL 01/11/25 12:00 01/12/25 02:29 DC Dexamethasone Sodium Phosphate 20 mg/Sodium Chloride 52 ml @ 100 mls/hr DAILY IV 01/09/25 09:00 02/08/25 08:59 01/18/25 12:28 100 MLS/HR Dexamethasone Sodium Phosphate 40 mg/Sodium Chloride 50 ml @ 100 mls/hr DAILY IV 01/06/25 14:00 01/08/25 12:16 DC 01/08/25 09:34 100 MLS/HR Dextrose (D50w) 50 ml AD PRN IV HYPOGLYCEMIA PROTOCOL 01/05/25 10:00 02/04/25 09:59 Doxycycline Hyclate 250 ml @ 125 mls/hr Q12H IV 01/05/25 10:00 01/06/25 21:05 DC 01/06/25 09:30 125 MLS/HR Doxycycline Hyclate 250 ml @ 125 mls/hr Q12H IV 01/06/25 21:30 01/16/25 14:23 DC 01/16/25 10:13 125 MLS/HR Fluconazole (DiFLUCan 100 mg TAB) 200 mg DAILY PO 01/12/25 09:00 02/11/25 08:59 01/18/25 08:33 200 MG Folic Acid (FOLic ACID 1 MG TABLET) 1 mg DAILY PO 01/07/25 10:30 02/06/25 10:29 01/18/25 08:32 1 MG Furosemide (LASix 20MG VIAL) 20 mg Q12H IV 01/07/25 16:00 01/11/25 00:56 DC 01/10/25 19:40 20 MG Gentamicin Sulfate/Sodium Chloride 100 ml @ 200 mls/hr Q12H IV 01/16/25 15:30 01/18/25 03:39 DC 01/17/25 16:00 200 MLS/HR Gentamicin Sulfate/Sodium Chloride 100 ml @ 200 mls/hr Q12H IV 01/18/25 04:00 01/28/25 03:59 01/18/25 04:19 200 MLS/HR Glucagon (Glucagon 1mg Kit) 1 mg AD PRN IM HYPOGLYCEMIA PROTOCOL 01/05/25 10:00 02/04/25 09:59 Heparin Sodium/ Dextrose 250 ml @ 0 mls/hr PROTOCOL IV 01/11/25 14:30 01/18/25 13:28 DC 01/17/25 16:09 13.99 MLS/HR Hydralazine HCl (APRESOLine 20MG INJ) 5 mg Q6H PRN IV For:SBP above 160;DBP above 90 01/05/25 14:30 02/04/25 14:29 01/10/25 22:24 5 MG Hydralazine HCl (APRESOLine 20MG INJ) 10 mg Q6H PRN IV For:SBP above 160;DBP above 90 01/05/25 02:30 01/05/25 09:53 DC Insulin Glargine (LANtus 100 UNITS/ML 10 ML VIAL) 15 units Q12H SQ 01/07/25 21:30 01/09/25 23:18 DC 01/09/25 13:10 15 UNITS Insulin Glargine (LANtus 100 UNITS/ML 10 ML VIAL) 20 units DAILY SQ 01/14/25 09:00 02/13/25 08:59 01/18/25 08:45 20 UNITS Insulin Glargine (LANtus 100 UNITS/ML 10 ML VIAL) 20 units HS SQ 01/06/25 21:00 01/06/25 21:05 DC Insulin Glargine (LANtus 100 UNITS/ML 10 ML VIAL) 20 units HS SQ 01/06/25 21:30 01/07/25 10:24 DC 01/06/25 21:33 20 UNITS Insulin Glargine (LANtus 100 UNITS/ML 10 ML VIAL) 20 units Q12H SQ 01/10/25 09:30 01/10/25 12:58 DC Insulin Glargine (LANtus 100 UNITS/ML 10 ML VIAL) 25 units Q12H SQ 01/10/25 21:30 01/11/25 00:50 DC 01/10/25 22:19 25 UNITS Insulin Glargine (LANtus 100 UNITS/ML 10 ML VIAL) 30 units DAILY SQ 01/12/25 09:00 01/14/25 07:03 DC 01/12/25 11:25 30 UNITS Insulin Glargine (LANtus 100 UNITS/ML 10 ML VIAL) 30 units Q12H SQ 01/11/25 09:30 01/11/25 20:13 DC 01/11/25 10:50 30 UNITS Insulin Human Regular (humuLIN R 100 UNIT/ML 3ML) 5 unit TIDAC SQ 01/14/25 07:30 02/13/25 07:29 01/18/25 12:37 5 UNIT Insulin Human Regular (humuLIN R 100 UNIT/ML 3ML) 8 unit TIDAC SQ 01/11/25 07:30 01/14/25 07:03 DC 01/13/25 19:47 8 UNIT Insulin Human Regular (humuLIN R 100 UNIT/ML 3ML) INSULIN SLIDING SCAL... ACHS SQ 01/05/25 07:30 01/05/25 09:57 DC 01/05/25 07:59 16 UNIT Insulin Human Regular (humuLIN R 100 UNIT/ML 3ML) INSULIN SLIDING SCAL... ACHS SQ 01/05/25 11:30 01/06/25 16:43 DC 01/06/25 11:50 8 UNIT Insulin Human Regular (humuLIN R 100 UNIT/ML 3ML) INSULIN SLIDING SCAL... ACHS SQ 01/06/25 17:00 01/07/25 13:32 DC 01/06/25 17:17 16 UNIT Insulin Human Regular (humuLIN R 100 UNIT/ML 3ML) INSULIN SLIDING SCAL... Q4H SQ 01/11/25 02:00 01/11/25 23:59 DC 01/11/25 20:49 6 UNIT Insulin Human Regular (humuLIN R 100 UNIT/ML 3ML) INSULIN SLIDING SCAL... Q4H SQ 01/11/25 23:59 02/10/25 23:58 01/18/25 08:44 4 UNIT Insulin Human Regular (humuLIN R 100 UNIT/ML 3ML) INSULIN SLIDING SCAL... Q6H6 SQ 01/10/25 18:00 01/11/25 00:50 DC 01/11/25 00:45 10 UNIT Insulin Human Regular 100 unit/ Sodium Chloride 100 ml @ 0 mls/hr AD PRN IV HYPERGLYCEMIA PROTOCOL 01/06/25 19:30 01/10/25 06:00 DC 01/09/25 19:10 16 MLS/HR Lactated Ringer's 1,000 ml @ 100 mls/hr Q10H IV 01/05/25 02:30 01/05/25 09:51 DC 01/05/25 02:30 100 MLS/HR Lactated Ringer's 1,000 ml @ 125 mls/hr Q8H IV 01/10/25 01:30 01/10/25 19:40 DC 01/10/25 13:07 125 MLS/HR Lactobacillus Rhamnosus ([facility] [employer]) 1 each DAILY PO 01/12/25 09:00 02/11/25 08:59 01/18/25 08:32 1 EACH Lorazepam (AtiVAN) 1 mg Q4H PRN IVP ALCOHOL WITHDRAWAL PROTOCOL 01/05/25 02:30 01/12/25 02:29 DC Magnesium Sulfate 50 ml @ 0 mls/hr PROTOCOL PRN IV h 01/05/25 02:30 02/04/25 02:29 01/18/25 08:34 25 MLS/HR Morphine Sulfate (morPHINE 2MG SYG) 2 mg Q4H PRN IVP SEVERE PAIN (7-10) 01/05/25 02:30 01/12/25 02:29 DC Multivitamins Therapeutic (Multivitamin Tablet) 1 tab DAILY PO 01/07/25 10:30 02/06/25 10:29 01/18/25 08:32 1 TAB Nafcillin Sodium (Nafcillin 2gm+ NS 100ml) 2 gm Q6H6 IV 01/17/25 18:00 01/27/25 17:59 01/18/25 14:15 2 GM Nicotine (Nicoderm) 21 mg DAILY TD 01/05/25 09:00 02/04/25 08:59 01/18/25 08:33 21 MG Nitroglycerin (Nitrostat) 0.4 mg AD PRN SL CHEST PAIN 01/05/25 02:30 02/04/25 02:29 Nystatin (NYSTatin 813790 UNIT/ML 5ML UDCUP) 100,000 UNITS 1 ML TO E... QID PO 01/18/25 09:00 02/17/25 08:59 01/18/25 14:00 5 ML Ondansetron HCl (zoFRAN 4MG INJ) 4 mg Q6H PRN IV NAUSEA/VOMITING 01/05/25 02:30 02/04/25 02:29 Pantoprazole Sodium (PROTonix 40MG TAB) 40 mg DAILY PO 01/05/25 09:00 02/04/25 08:59 01/18/25 08:32 40 MG Pharmacy Profile Note (Pharmacy Communication) 1 each ONCE MISC 01/16/25 14:30 01/16/25 15:12 DC Pharmacy Profile Note (Pharmacy Communication) 1 each PROTOCOL PRN MISC ETOH Withdrawal Score changes 01/05/25 02:30 01/12/25 02:29 DC Piperacillin Sod/ Tazobactam Sod (Zosyn 3.375gm+NS 50ml) 3.375 gm Q12H IV 01/05/25 02:30 01/07/25 13:24 DC 01/07/25 02:45 3.375 GM Potassium Phosphate 250 ml @ 42 mls/hr PROTOCOL PRN IV PROTOCOL 01/05/25 10:00 02/04/25 09:59 Potassium Chloride 100 ml @ 100 mls/hr AD PRN IV POTASSIUM PROTOCOL 01/05/25 02:30 01/07/25 10:12 DC Potassium Chloride 100 ml @ 100 mls/hr AD PRN IV POTASSIUM PROTOCOL 01/07/25 10:30 02/06/25 10:29 01/09/25 06:26 100 MLS/HR Potassium Chloride (K-Dur 10meq Sr Tab) 10 meq AD PRN PO POTASSIUM PROTOCOL 01/06/25 09:30 02/04/25 02:29 01/08/25 23:35 10 MEQ Potassium Chloride (K-Dur/Klor-Con 20meq) 10 meq AD PRN PO POTASSIUM PROTOCOL 01/05/25 02:30 01/06/25 09:12 DC 01/05/25 22:15 10 MEQ Potassium Chloride (K-Dur/Klor-Con 20meq) 10 meq AD PRN PO POTASSIUM PROTOCOL 01/07/25 10:30 01/07/25 10:12 DC Potassium Chloride (KCl 10% Elixir 20meq/15ml) 10 meq AD PRN PO POTASSIUM PROTOCOL 01/05/25 02:30 01/07/25 10:12 DC 01/06/25 17:16 10 MEQ Potassium Chloride (KCl 10% Elixir 20meq/15ml) 10 meq AD PRN PO POTASSIUM PROTOCOL 01/07/25 10:30 02/06/25 10:29 01/08/25 15:28 10 MEQ Sodium Bicarbonate (Sodium Bicarbonate) 1,300 mg BID PO 01/11/25 09:00 02/10/25 08:59 01/18/25 08:32 1,300 MG Sodium Chloride 1,000 ml @ 50 mls/hr Q20H IV 01/05/25 10:00 01/10/25 01:33 DC 01/09/25 05:56 50 MLS/HR Sodium Chloride 1,000 ml @ 75 mls/hr [id number] IV 01/11/25 01:00 01/11/25 13:45 DC 01/11/25 01:00 75 MLS/HR Triamcinolone Acetonide (Kenalog/ Aristocort) 1 APPLY TP BID BID TP 01/07/25 11:00 02/06/25 10:59 01/18/25 12:43 1 APPL Vancomycin HCl (Vancomycin Protocol) 1 each AD IV 01/07/25 12:30 01/07/25 12:40 DC DIAGNOSTICS / RADIOLOGY: [ ] ASSESSMENT: Severe sepsis, resolved POA Gram-positive bacteremia secondary to Staphylococcus aureus, POA Hypodense echogenic mobile vegetation to right coronary cusp leaflet on echocardiogram 01/05/2025 Left atrial appendage clot present. on DRAKE 01/11 non coronary cusp leaflet has vegetation that measures 1.8 x 1.1 cm. on DRAKE 01/11 Urinary tract infection, secondary to Klebsiella pneumoniae, POA Strep pharyngitis, POA ITP, POA Leukocytosis, POA Hyperlactatemia, POA Acute kidney injury, POA Hypokalemia, POA Hyponatremia, POA Hypomagnesemia, POA POA New onset Uncontrolled Diabetes mellitius type2, POA Elevated troponin, POA Cocaine abuse, POA Alcohol abuse, POA Tobacco dependence, POA Significant proteinuria, POA Diabetic nephropathy, POA Gallstones, POA Fidelina esophagitis on EGD 01/11 PLAN: -patient remains admitted to the medical floor. -continue the patient on broad-spectrum IV antibiotics -results of DRAKE reviewed, Left atrial appendage clot present. on DRAKE 01/11, aortic valve is trileaflet, opens well. Non coronary cusp leaflet has vegetation that measures 1.8 x 1.1 cm. on DRAKE 01/11 -continue heparin drip. Patient already evaluated by Cardiothoracic surgeon, continue medical management, we will re-evaluate possibility of aortic valve replacement in the near future. 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 Continue to follow Hematology input and recommendation -renal function slightly improved today, patient evaluated by management professional, the patient with significant proteinuria on UA consistent with diabetic nephropathy. No acute need for any form of renal replacement therapy. -blood culture positive for Staphylococcus aureus. Urine culture positive for Klebsiella pneumoniae. Continue broad-spectrum IV antibiotics, continue to follow ID input recommendation. -case discussed with case management, patient to complete course of IV antibiotics likely during this hospitalization as the patient is uninsured. Disposition: Pending improvement in clinical condition. All questions answered time spent: > 35 min ARVIND NOLAND MD Jan 18, 2025 15:21
--- NOTE | 2025-01-18 16:59 | PN ---
Mr. Jin is a 44-year-old male that was seen and examined today on 01/05/2025. Patient is a good historian and personal health. Patient is a good historian and personal health. Patient states that he came to the emergency department at the behest of his daughter. Patient's chief complaint is weakness. Onset was Thursday12/30/2024. Location is to entire body. Duration is constant. Character is described as, " today Orion needed help to get out of the sofa and out of the shower. I also fell down once. "There was no alleviating factors. Symptoms are aggravated with physical activity. Patient denies any associated chest pain or shortness and breath. I was consulted because of leukocytosis and severe thrombocytopenia. This patient have have any alcoholism. Patient also on cocaine. It seems the patient may be have pyelonephritis by CT scan with the patient was started on antibiotic treatment. This patient was found to have thrombocytopenia. Which was multifactorial including cirrhosis of the liver and possible ITP. Platelet count improved. This patient receiving dexamethasone 20 mg IV daily. Patient was found to have bacteremia. With the 2D echo showing possible vegetation of the valve. Patient have DRAKE which showed patient to have intra-atrial thrombosis. Patient receiving heparin drip. Patient receiving antibiotic treatment. Blood culture was positive. Surgery is not planned to do for this patient at this time PE General Appearance: Alert, Oriented X3, Cooperative, moderate distress HEENT: Atraumatic, PERRLA, EOMI, Other (Mucous membranes dry and cracked) Respiratory: Clear to auscultation, Normal air movement, NL respiratory effort Cardiovascular: Normal S1, Normal S2, Other (Tachycardia) Abdominal: Normal bowel sounds, Soft, No tenderness Extremities: No edema Skin: No significant lesion Neuro: Normal gait, Normal speech, Strength at 5/5 X4 ext, Sensation intact, Cranial nerves 3-12 NL Psych/Mental Status: Mental status NL, Mood NL, Thoughts/Content NL Assessment 1. Thrombocytopenia. 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 2. Acute on chronic renal failure 4. Severe sepsis. Possible bacteremia and possible endocarditis 5. Leukocytosis 6. Cocaine abuse 7. Alcohol abuse 8. Hepatomegaly 9. Splenomegaly 10. Bacteremia with possibility of endocarditis. 11. DRAKE showing intra-atrial thrombus which could be infection. The patient is receiving heparin drip. Plan 1. Patient with ITP. Patient to continue to receive dexamethasone. This patient will need tapering dose of prednisone especially with the platelet count within normal. 2. There was hypersegmented neutrophils. This patient to Continue on folic acid 1 mg p.o. daily and vitamin B12 1000 mcg p.o. daily. 3. Please do not transfuse any platelet 4. Blood culture continue to grow. With the patient will need antibiotic treatment at least for 6 weeks. 5. I discussed this case with hospitalist. It seems that the cardiothoracic surgery is still evaluating the patient for surgery. In this case this patient to continued on heparin drip. If this surgery done or if there is no surgery to be done this patient will need anticoagulation. It seems this patient does not have insurance. I think his best chance is to be started on Coumadin. Vitals/Labs Vital Signs Date Time Temp Pulse Resp B/P (MAP) Pulse Ox O2 Delivery O2 Flow Rate FiO2 01/18/25 11:20 98.4 70 18 127/80 100 Room Air 21 01/17/25 20:30 0 Laboratory Tests 01/18/25 02:20 Medications Current Medications Sodium Chloride 1,000 ml @ 125 mls/hr ONCE ONCE IV Last administered on 01/05/25 00:13; Start 01/04/25 at 23:00; Stop 01/05/25 at 06:59; Status DC Aspirin 81 mg ONCE ONCE PO Last administered on 01/05/25at 00:14; Start 01/04/25 at 23:00; Stop 01/04/25 at 23:01; Status DC Ondansetron HCl 4 mg ONCE ONCE IVP Last administered on 01/05/25at 00:13; Start 01/04/25 at 23:00; Stop 01/04/25 at 23:01; Status DC Potassium Chloride 100 ml @ 50 mls/hr ONCE ONCE IV Last administered on 01/05/25at 00:13; Start 01/05/25 at 00:00; Stop 01/05/25 at 01:59; Status DC Potassium Chloride 100 ml @ 50 mls/hr ONCE ONCE IV Last administered on 01/05/25at 03:12; Start 01/05/25 at 00:00; Stop 01/05/25 at 01:59; Status DC Thiamine HCl 100 mg ONCE ONCE IVP Last administered on 01/05/25at 01:01; Start 01/05/25 at 00:00; Stop 01/05/25 at 00:01; Status DC Acetaminophen 500 mg STK-MED ONCE .ROUTE; Start 01/05/25 at 00:28; Stop 01/05/25 at 00:28; Status DC Cefepime HCl 1 gm ONCE ONCE IVPB Last administered on 01/05/25at 01:01; Start 01/05/25 at 01:00; Stop 01/05/25 at 01:02; Status DC Vancomycin HCl 750 mg ONCE ONCE IVPB Last administered on 01/05/25at 02:12; Start 01/05/25 at 01:00; Stop 01/05/25 at 01:02; Status DC Sodium Chloride 250 ml ONCE ONCE IVPB Last administered on 01/05/25at 02:12; Start 01/05/25 at 01:00; Stop 01/05/25 at 01:02; Status DC Acetaminophen 1,000 mg ONCE ONCE PO Last administered on 01/05/25at 00:30; Start 01/05/25 at 01:00; Stop 01/05/25 at 01:02; Status DC Aspirin 81 mg DAILY PO; Start 01/05/25 at 09:00; Stop 01/05/25 at 09:53; Status DC Nitroglycerin 0.4 mg AD PRN SL; Start 01/05/25 at 02:30; Stop 02/04/25 at 02:29 Aspirin 162 mg ONCE ONCE PO Last administered on 01/05/25at 03:06; Start 01/05/25 at 02:30; Stop 01/05/25 at 02:31; Status DC Insulin Human Regular INSULIN SLIDING SCAL... ACHS SQ Last administered on 01/05/25at 07:59; Start 01/05/25 at 07:30; Stop 01/05/25 at 09:57; Status DC Lactated Ringer's 3,429 ml @ 1,143 mls/hr ONCE ONCE IV Last administered on 01/05/25at 03:12; Start 01/05/25 at 02:30; Stop 01/05/25 at 05:29; Status DC Piperacillin Sod/ Tazobactam Sod 3.375 gm Q12H IV Last administered on 01/07/25at 02:45; Start 01/05/25 at 02:30; Stop 01/07/25 at 13:24; Status DC Potassium Chloride 100 ml @ 100 mls/hr AD PRN IV; Start 01/05/25 at 02:30; Stop 01/07/25 at 10:12; Status DC Potassium Chloride 10 meq AD PRN PO Last administered on 01/06/25at 17:16; Start 01/05/25 at 02:30; Stop 01/07/25 at 10:12; Status DC Potassium Chloride 10 meq AD PRN PO Last administered on 01/05/25at 22:15; Start 01/05/25 at 02:30; Stop 01/06/25 at 09:12; Status DC Acetaminophen 650 mg Q6H PRN PO Last administered on 01/16/25at 17:26; Start 01/05/25 at 02:30; Stop 02/04/25 at 02:29 Pantoprazole Sodium 40 mg DAILY PO Last administered on 01/18/25at 08:32; Start 01/05/25 at 09:00; Stop 02/04/25 at 08:59 Ondansetron HCl 4 mg Q6H PRN IV; Start 01/05/25 at 02:30; Stop 02/04/25 at 02:29 Morphine Sulfate 2 mg Q4H PRN IVP; Start 01/05/25 at 02:30; Stop 01/12/25 at 02:29; Status DC Hydralazine HCl 10 mg Q6H PRN IV; Start 01/05/25 at 02:30; Stop 01/05/25 at 09:53; Status DC Benzocaine 1 each Q4H PRN MM; Start 01/05/25 at 02:30; Stop 02/04/25 at 02:29 Magnesium Sulfate 50 ml @ 0 mls/hr PROTOCOL PRN IV Last administered on 01/18/25at 08:34; Start 01/05/25 at 02:30; Stop 02/04/25 at 02:29 Lactated Ringer's 1,000 ml @ 100 mls/hr Q10H IV Last administered on 01/05/25at 02:30; Start 01/05/25 at 02:30; Stop 01/05/25 at 09:51; Status DC Chlordiazepoxide HCl 25 mg Q8H PO Last administered on 01/10/25at 22:23; Start 01/05/25 at 02:30; Stop 01/11/25 at 11:39; Status DC Lorazepam 1 mg Q4H PRN IVP; Start 01/05/25 at 02:30; Stop 01/12/25 at 02:29; Status DC Pharmacy Profile Note 1 each PROTOCOL PRN MISC; Start 01/05/25 at 02:30; Stop 01/12/25 at 02:29; Status DC Nicotine 21 mg DAILY TD Last administered on 01/18/25at 08:33; Start 01/05/25 at 09:00; Stop 02/04/25 at 08:59 Sodium Chloride 1,000 ml @ 50 mls/hr Q20H IV Last administered on 01/09/25at 05:56; Start 01/05/25 at 10:00; Stop 01/10/25 at 01:33; Status DC Potassium Phosphate 250 ml @ 42 mls/hr PROTOCOL PRN IV; Start 01/05/25 at 10:00; Stop 02/04/25 at 09:59 Hydralazine HCl 5 mg Q6H PRN IV Last administered on 01/10/25at 22:24; Start 01/05/25 at 14:30; Stop 02/04/25 at 14:29 Doxycycline Hyclate 250 ml @ 125 mls/hr Q12H IV Last administered on 01/06/25at 09:30; Start 01/05/25 at 10:00; Stop 01/06/25 at 21:05; Status DC Potassium Chloride 40 meq ONCE ONCE PO Last administered on 01/05/25at 10:25; Start 01/05/25 at 10:00; Stop 01/05/25 at 10:01; Status DC Potassium Chloride 100 ml @ 50 mls/hr ONCE ONCE IV Last administered on 01/05/25at 10:25; Start 01/05/25 at 10:00; Stop 01/05/25 at 11:59; Status DC Dextrose 50 ml AD PRN IV; Start 01/05/25 at 10:00; Stop 02/04/25 at 09:59 Glucagon 1 mg AD PRN IM; Start 01/05/25 at 10:00; Stop 02/04/25 at 09:59 Insulin Human Regular INSULIN SLIDING SCAL... ACHS SQ Last administered on 01/06/25at 11:50; Start 01/05/25 at 11:30; Stop 01/06/25 at 16:43; Status DC Dexamethasone Sodium Phosphate 10 mg ONCE ONCE IVP Last administered on 01/05/25at 17:27; Start 01/05/25 at 13:30; Stop 01/05/25 at 14:03; Status DC Insulin Glargine 20 units HS SQ; Start 01/06/25 at 21:00; Stop 01/06/25 at 21:05; Status DC Potassium Chloride 10 meq AD PRN PO Last administered on 01/08/25at 23:35; Start 01/06/25 at 09:30; Stop 02/04/25 at 02:29 Dexamethasone Sodium Phosphate 40 mg DAILY ONCE IV; Start 01/07/25 at 09:00; Stop 01/06/25 at 13:27; Status DC Dexamethasone Sodium Phosphate 40 mg/Sodium Chloride 50 ml @ 100 mls/hr DAILY IV Last administered on 01/08/25at 09:34; Start 01/06/25 at 14:00; Stop 01/08/25 at 12:16; Status DC Insulin Human Regular INSULIN SLIDING SCAL... ACHS SQ Last administered on 01/06/25at 17:17; Start 01/06/25 at 17:00; Stop 01/07/25 at 13:32; Status DC Insulin Human Regular 100 unit/ Sodium Chloride 100 ml @ 0 mls/hr AD PRN IV Last administered on 01/09/25at 19:10; Start 01/06/25 at 19:30; Stop 01/10/25 at 06:00; Status DC Insulin Glargine 20 units HS SQ Last administered on 01/06/25at 21:33; Start 01/06/25 at 21:30; Stop 01/07/25 at 10:24; Status DC Doxycycline Hyclate 250 ml @ 125 mls/hr Q12H IV Last administered on 01/16/25at 10:13; Start 01/06/25 at 21:30; Stop 01/16/25 at 14:23; Status DC Chlordiazepoxide HCl 25 mg STK-MED ONCE .ROUTE; Start 01/07/25 at 02:35; Stop 01/07/25 at 02:41; Status DC Piperacillin Sod/ Tazobactam Sod 50 ml @ As Directed STK-MED ONCE .ROUTE; Start 01/07/25 at 02:39; Stop 01/07/25 at 02:41; Status DC Potassium Chloride 0 ml @ As Directed STK-MED ONCE IV; Start 01/07/25 at 07:28; Stop 01/07/25 at 07:31; Status DC Potassium Chloride 40 meq ONCE ONCE PO Last administered on 01/07/25at 09:44; Start 01/07/25 at 10:00; Stop 01/07/25 at 10:01; Status DC Potassium Chloride 100 ml @ 100 mls/hr AD PRN IV Last administered on 01/09/25at 06:26; Start 01/07/25 at 10:30; Stop 02/06/25 at 10:29 Potassium Chloride 10 meq AD PRN PO Last administered on 01/08/25at 15:28; Start 01/07/25 at 10:30; Stop 02/06/25 at 10:29 Potassium Chloride 10 meq AD PRN PO; Start 01/07/25 at 10:30; Stop 01/07/25 at 10:12; Status DC Insulin Glargine 15 units Q12H SQ Last administered on 01/09/25at 13:10; Start 01/07/25 at 21:30; Stop 01/09/25 at 23:18; Status DC Insulin Glargine 10 units ONCE ONCE SQ Last administered on 01/07/25at 10:40; Start 01/07/25 at 10:30; Stop 01/07/25 at 10:31; Status DC Thiamine HCl 300 mg DAILY ONCE IVP Last administered on 01/07/25at 10:39; Start 01/07/25 at 10:30; Stop 01/07/25 at 10:31; Status DC Multivitamins Therapeutic 1 tab DAILY PO Last administered on 01/18/25at 08:32; Start 01/07/25 at 10:30; Stop 02/06/25 at 10:29 Folic Acid 1 mg DAILY PO Last administered on 01/18/25at 08:32; Start 01/07/25 at 10:30; Stop 02/06/25 at 10:29 Triamcinolone Acetonide 1 APPLY TP BID BID TP Last administered on 01/18/25at 12:43; Start 01/07/25 at 11:00; Stop 02/06/25 at 10:59 Vancomycin HCl 1 each AD IV; Start 01/07/25 at 12:30; Stop 01/07/25 at 12:40; Status DC Cefazolin Sodium 2 gm Q12H IVPB Last administered on 01/16/25at 01:12; Start 01/07/25 at 13:30; Stop 01/16/25 at 14:43; Status DC Furosemide 20 mg Q12H IV Last administered on 01/10/25at 19:40; Start 01/07/25 at 16:00; Stop 01/11/25 at 00:56; Status DC Calcium Gluconate 1 gm/Sodium Chloride 100 ml @ 0 mls/hr AD PRN IV Last administered on 01/08/25at 23:32; Start 01/08/25 at 02:30; Stop 02/07/25 at 02:29 Dexamethasone Sodium Phosphate 20 mg/Sodium Chloride 52 ml @ 100 mls/hr DAILY IV Last administered on 01/18/25at 12:28; Start 01/09/25 at 09:00; Stop 02/08/25 at 08:59 Insulin Glargine 20 units Q12H SQ; Start 01/10/25 at 09:30; Stop 01/10/25 at 12:58; Status DC Lactated Ringer's 1,000 ml @ 125 mls/hr Q8H IV Last administered on 01/10/25at 13:07; Start 01/10/25 at 01:30; Stop 01/10/25 at 19:40; Status DC Lactated Ringer's 1,000 ml BOLUS ONCE IV Last administered on 01/10/25at 09:20; Start 01/10/25 at 07:30; Stop 01/10/25 at 07:31; Status DC Lidocaine HCl 100 mg STK-MED ONCE .ROUTE; Start 01/10/25 at 08:01; Stop 01/10/25 at 08:02; Status DC Propofol 200 mg STK-MED ONCE IV; Start 01/10/25 at 08:02; Stop 01/10/25 at 08:02; Status DC Glycopyrrolate 1 mg STK-MED ONCE .ROUTE; Start 01/10/25 at 08:02; Stop 01/10/25 at 08:02; Status DC Ketamine HCl 50 mg STK-MED ONCE .ROUTE; Start 01/10/25 at 08:03; Stop 01/10/25 at 08:03; Status DC Insulin Glargine 25 units Q12H SQ Last administered on 01/10/25at 22:19; Start 01/10/25 at 21:30; Stop 01/11/25 at 00:50; Status DC Insulin Human Regular INSULIN SLIDING SCAL... Q6H6 SQ Last administered on 01/11/25at 00:45; Start 01/10/25 at 18:00; Stop 01/11/25 at 00:50; Status DC Insulin Glargine 30 units Q12H SQ Last administered on 01/11/25at 10:50; Start 01/11/25 at 09:30; Stop 01/11/25 at 20:13; Status DC Insulin Human Regular INSULIN SLIDING SCAL... Q4H SQ Last administered on 01/11/25at 20:49; Start 01/11/25 at 02:00; Stop 01/11/25 at 23:59; Status DC Sodium Chloride 1,000 ml @ 75 mls/hr [id number] IV Last administered on 01/11/25at 01:00; Start 01/11/25 at 01:00; Stop 01/11/25 at 13:45; Status DC Sodium Bicarbonate 1,300 mg BID PO Last administered on 01/18/25at 08:32; Start 01/11/25 at 09:00; Stop 02/10/25 at 08:59 Insulin Human Regular 8 unit TIDAC SQ Last administered on 01/13/25at 19:47; Start 01/11/25 at 07:30; Stop 01/14/25 at 07:03; Status DC Lidocaine HCl 100 mg STK-MED ONCE .ROUTE; Start 01/11/25 at 07:00; Stop 01/11/25 at 07:00; Status DC Atropine Sulfate 1 mg STK-MED ONCE IVP; Start 01/11/25 at 07:00; Stop 01/11/25 at 07:00; Status DC Propofol 200 mg STK-MED ONCE IV; Start 01/11/25 at 07:00; Stop 01/11/25 at 07:00; Status DC Succinylcholine Chloride 200 mg STK-MED ONCE .ROUTE; Start 01/11/25 at 07:00; Stop 01/11/25 at 07:00; Status DC Ketamine HCl 50 mg STK-MED ONCE .ROUTE; Start 01/11/25 at 07:00; Stop 01/11/25 at 07:01; Status DC Glycopyrrolate 1 mg STK-MED ONCE .ROUTE; Start 01/11/25 at 07:01; Stop 01/11/25 at 07:01; Status DC Sodium Chloride 10 ml STK-MED ONCE .ROUTE; Start 01/11/25 at 07:01; Stop 01/11/25 at 07:01; Status DC Phenylephrine HCl 10 mg STK-MED ONCE IV; Start 01/11/25 at 07:01; Stop 01/11/25 at 07:01; Status DC Midazolam HCl 2 mg STK-MED ONCE .ROUTE; Start 01/11/25 at 07:08; Stop 01/11/25 at 07:08; Status DC Ondansetron HCl 4 mg STK-MED ONCE .ROUTE; Start 01/11/25 at 07:34; Stop 01/11/25 at 07:35; Status DC Chlordiazepoxide HCl 25 mg Q8H PRN PO; Start 01/11/25 at 12:00; Stop 01/12/25 at 02:29; Status DC Heparin Sodium/ Dextrose 250 ml @ 0 mls/hr PROTOCOL IV Last administered on 01/17/25at 16:09; Start 01/11/25 at 14:30; Stop 01/18/25 at 13:28; Status DC Fluconazole 200 mg ONCE ONCE PO Last administered on 01/11/25at 15:18; Start 01/11/25 at 15:30; Stop 01/11/25 at 15:31; Status DC Fluconazole 200 mg DAILY PO Last administered on 01/18/25at 08:33; Start 01/12/25 at 09:00; Stop 02/11/25 at 08:59 Lactobacillus Rhamnosus 1 each DAILY PO Last administered on 01/18/25at 08:32; Start 01/12/25 at 09:00; Stop 02/11/25 at 08:59 Insulin Glargine 30 units DAILY SQ Last administered on 01/12/25at 11:25; Start 01/12/25 at 09:00; Stop 01/14/25 at 07:03; Status DC Insulin Human Regular INSULIN SLIDING SCAL... Q4H SQ Last administered on 01/18/25at 08:44; Start 01/11/25 at 23:59; Stop 02/10/25 at 23:58 Heparin Sodium (Porcine) 4,000 unit ONCE ONCE IV Last administered on 01/12/25at 22:36; Start 01/12/25 at 22:30; Stop 01/12/25 at 22:31; Status DC Iohexol 35,000 mg STK-MED ONCE IV; Start 01/13/25 at 12:56; Stop 01/13/25 at 12:57; Status DC Insulin Glargine 20 units DAILY SQ Last administered on 01/18/25at 08:45; Start 01/14/25 at 09:00; Stop 02/13/25 at 08:59 Insulin Human Regular 5 unit TIDAC SQ Last administered on 01/18/25at 12:37; Start 01/14/25 at 07:30; Stop 02/13/25 at 07:29 Aspirin 81 mg DAILY PO Last administered on 01/18/25at 08:33; Start 01/16/25 at 09:00; Stop 02/15/25 at 08:59 Pharmacy Profile Note 1 each ONCE MISC; Start 01/16/25 at 14:30; Stop 01/16/25 at 15:12; Status DC Dexamethasone Sodium Phosphate 10 mg STK-MED ONCE .ROUTE; Start 01/16/25 at 14:38; Stop 01/16/25 at 14:38; Status DC Dexamethasone Sodium Phosphate 10 mg STK-MED ONCE .ROUTE; Start 01/16/25 at 14:39; Stop 01/16/25 at 14:40; Status DC Cefazolin Sodium 2 gm Q8H IVPB Last administered on 01/17/25at 05:07; Start 01/16/25 at 21:30; Stop 01/17/25 at 13:22; Status DC Gentamicin Sulfate/Sodium Chloride 100 ml @ 200 mls/hr Q12H IV Last administered on 01/17/25at 16:00; Start 01/16/25 at 15:30; Stop 01/18/25 at 03:39; Status DC Acetaminophen 650 mg Q6H PRN PO; Start 01/16/25 at 17:30; Stop 02/15/25 at 17:29 Nafcillin Sodium 2 gm Q6H6 IV Last administered on 01/18/25at 14:15; Start 01/17/25 at 18:00; Stop 01/27/25 at 17:59 Melatonin 20 mg ONCE ONCE PO Last administered on 01/17/25at 22:00; Start 01/17/25 at 21:30; Stop 01/17/25 at 21:37; Status DC Gentamicin Sulfate/Sodium Chloride 100 ml @ 200 mls/hr Q12H IV Last administered on 01/18/25at 04:19; Start 01/18/25 at 04:00; Stop 01/28/25 at 03:59 Nystatin 100,000 UNITS 1 ML TO E... QID PO Last administered on 01/18/25at 14:00; Start 01/18/25 at 09:00; Stop 02/17/25 at 08:59 Apixaban 10 mg BID PO; Start 01/18/25 at 21:00; Stop 01/18/25 at 13:52; Status DC Apixaban 10 mg BID PO; Start 01/18/25 at 21:00; Stop 01/25/25 at 20:59 Apixaban 5 mg BID PO; Start 01/25/25 at 21:00; Stop 02/24/25 at 20:59 LEOPOLDO AGUILAR MD Jan 18, 2025 16:59
--- NOTE | 2025-01-18 17:05 | PN ---
INFECTIOUS DISEASE PROGRESS NOTE Date of Service: Jan 18, 2025 SUBJECTIVE: This is a 44-year-old male patient who was admitted for chief complaint of weakness and status post fall at home. A Urine culture collected on admission came back positive for Klebsiella pneumoniae and the blood cultures results came back positive for Methicillin sensitive Staphylococcus aureus 2 of 2 sets and the reason for this consult. A 2D echo done on admission showed Aortic valve endocarditis and DRAKE done on 01/11/2025 with findings of aortic valve vegetation and Left atrial appendage clot. Patient was seen and examined at bedside in room 412. Patient is awake, alert and oriented x3. Patient is status post DRAKE on 01/11/2025 with findings of aortic valve vegetation and left atrial appendage clot. Heparin drip has been discontinued and patient was started on Eliquis. Continues with several positive Blood cultures results with MSSA. Blood cultu res were repeated yesterday, we will follow up on results. Patient is afebrile, temperature is 98.4 and the WBC has trended down to 9.6. Will continue on Nafcillin IV, Gentamicin per pharmacy renal dosing and fluconazole. Will have physical therapy evaluate and treat. PHYSICAL EXAM EYES: Anicteric. Pupils equal and reactive. HENT: No oral thrush seen, moist Oral mucosa. NECK: Supple, no JVD or thyromegaly. LUNGS: Good air entry. No rales, no rhonchi. CARDIOVASCULAR: S1, S2 regular. No murmur heard. ABDOMEN: Obese but Soft. CENTRAL NERVOUS SYSTEM: Awake, alert, oriented x 3. SKIN: No rashes, no swelling. LYMPHATICS: No peripheral lymphadenopathy MUSCULOSKELETAL: No joint swelling, erythema or tenderness. Weakness. EXTREMITIES: No cyanosis or clubbing. Edematous. BACK: No deformity, no pressure ulcer. GENITOURINARY: No dysuria or hematuria. Vital Sign (Last 12 Hours) 01/18/25 01/18/25 01/18/25 07:01 08:15 11:20 Temp 97.9 98.4 Pulse 65 63 70 Resp B/P (MAP) 127/77 127/80 Pulse Ox 99 100 O2 Delivery Room Air Room Air FiO2 21 Intake & Output (last 24hrs) 01/17/25 01/17/25 01/18/25 15:00 23:00 07:00 Intake Total 875 ml Balance 875 ml LABS: Laboratory: Test 2/19/25 16:30 01/18/25 13:18 01/18/25 02:20 01/17/25 16:20 Range/Units Whole Blood Glucose 151 #H 70-110 MG/DL Activated Partial Thromboplast Time 47.3 #H 26.3-35.5 SEC White Blood Count 9.6 4.8-10.8 K/uL Red Blood Count 3.01 L 4.50-6.20 MIL/uL Hemoglobin 9.6 L 14.0-18.0 g/dL Hematocrit 27.5 L 42-54 % Mean Corpuscular Volume 91.4 79-99 fL Mean Corpuscular Hemoglobin 31.9 27.0-33.0 pg Mean Corpuscular Hemoglobin Concent 34.9 32.0-36.0 g/dL Red Cell Distribution Width 12.9 11.0-15.5 % Platelet Count 160 130-400 K/uL Mean Platelet Volume 10.8 H 7.5-10.5 fL Immature Granulocyte % (Auto) 0.6 0-1 % Neutrophils (%) (Auto) 83.0 H 40.0-77.0 % Lymphocytes (%) (Auto) 9.0 L 21.0-51.0 % Monocytes (%) (Auto) 7.4 3.0-13.0 % Eosinophils (%) (Auto) 0.0 0.0-8.0 % Basophils (%) (Auto) 0.0 0.0-5.0 % Neutrophils # (Auto) 8.0 H 1.8-7.7 K/uL Lymphocytes # (Auto) 0.9 L 1.0-4.8 K/uL Monocytes # (Auto) 0.7 0.1-1.0 K/uL Eosinophils # (Auto) 0.00 0.00-0.70 K/uL Basophils # (Auto) 0.00 0.00-0.20 K/uL Absolute Immature Granulocyte (auto 0.06 0-1 K/uL Nucleated Red Blood Cells 0.0 0.0-0.19 % Sodium Level 141 136-145 mmol/L Potassium Level 4.4 3.5-5.1 mmol/L Chloride Level 110 101-111 mmol/L Carbon Dioxide Level 23 21-32 mmol/L Blood Urea Nitrogen 27 H 7-18 mg/dL Creatinine 1.0 0.5-1.3 mg/dL Glomerular Filtration Rate Calc 95 >90 mL/min Random Glucose 161 H 70-105 mg/dL Total Calcium 7.4 L 8.5-10.1 mg/dL Phosphorus Level 3.2 2.5-4.9 mg/dL Magnesium Level 1.50 L 1.80-2.40 mg/dL Gentamicin Level Trough 0.7 0.0-2.0 mcg/mL Gentamicin Level Peak 1.9 L 4.0-8.0 mcg/mL ASSESSMENT: Methicillin-susceptible Staphylococcus aureus bacteremia status post DRAKE on 01/11/2025 with findings of aortic valve vegetation and Left atrial appendage clot. Aortic valve endocarditis on 2D echo. Urinary tract infection with Klebsiella pneumoniae. Chronic scalp folliculitis. Leukocytosis. Thrombocytopenia requiring platelet transfusion, resolving. Acute on chronic renal failure, resolving. Substance abuse, Cocaine and ETOH. Streptococcus viral infection. Uncontrolled diabetes mellitus. Debility. PLAN: Continue Nafcillin. Continue Gentamicin per pharmacy renal dosing. Patient will need 6 weeks of IV antibiotics. Will follow up on the repeat blood cultures. Heparin drip was discontinue and Eliquis will be started. Avoid nephrotoxic medications. Continue GI prophylaxis. Manipulator Operator following patient. Continue monitoring glucose levels. Physical therapy to evaluate and treat. This case was reviewed and discussed with my supervising physician and the above assessment and plan was formulated and agreed upon. ATTESTATION BY PHYSICIAN I have seen and examined the patient. I reviewed the documentation, medical decision making, and treatment plan as noted by the mid-level provider above. I agree with the findings and plan of care. JANUARY CARLSON MD, MIRTA L [employer] MANAGEMENT CONSULTANT Jan 18, 2025 17:05
[2025-01-18] MEDS: APIXaban 5 MG TABLET PO SCH (20:15)
[2025-01-18] MEDS: INSULIN humuLIN R 100 UNIT/ML 3ML SQ SCH (20:21)
[2025-01-18] MEDS ORDERED: APIXaban 5 MG TABLET PO SCH (21:00)
--- NOTE | 2025-01-18 21:23 | PN ---
FOLLOWUP PROGRESS NOTE SUBJECTIVE: A 44-year-old male with history of diabetes mellitus and hypertension. The patient initially admitted to the hospital and found to have endocarditis. The patient has had acute on chronic renal failure in the hospital. Creatinine has been elevated. The patient remains on the broad spectrum IV antibiotics. The patient has been seen by Cardiovascular Surgery and he is to continue with the IV antibiotics and he is being seen for all the above. REVIEW OF SYSTEMS: GENERAL: The patient is feeling weak and tired. HEENT: No change in vision. No change in hearing. CARDIOVASCULAR: There is no current chest pain or palpitations. PULMONARY: There is no shortness of breath. GASTROINTESTINAL: He is tolerating diet. MUSCULOSKELETAL: Complains of weakness. PHYSICAL EXAMINATION: VITAL SIGNS: Blood pressure 127/77, pulse in the 60s. GENERAL: He is a chronically ill male, lying in bed on the medical floor. HEENT: Atraumatic. Pupils equal, roving to light. Oropharynx is without exudate. Nares clear. NECK: There is no JVP. There is no thyromegaly, no mass. CARDIOVASCULAR: Regular. There is no S3, S4 gallop. LUNGS: Coarse with equal thoracic movement. ABDOMEN: Soft, nondistended, nontender. EXTREMITIES: Reveal no clubbing, no cyanosis. NEUROLOGIC: He is awake. He is alert. LABORATORY DATA: Hemoglobin 9.6, hematocrit 27. Creatinine is 1. IMPRESSION: * Acute on chronic renal failure. * Endocarditis. * Diabetes mellitus. * Hypertension. * Anemia. PLAN: The patient's creatinine continues to stabilize. Repeat blood cultures are all noted. He remains on the broad-spectrum IV antibiotics. The patient is also being seen by Cardiovascular Surgery. We will continue to follow closely. The patient's multiple questions, all of which were answered. TID: [id number] RECEIPT: [id number]
--- NOTE | 2025-01-19 03:06 | PN ---
The patient was admitted with subacute bacterial endocarditis, preserved ventricular function, hemodynamically stable. He has got a history of alcohol abuse, cocaine use and he has got methicillin-sensitive Staph aureus on the . He has been treated with IV antibiotics in order to stabilize the vegetation and sterilize the blood and the patient has been optimized for possible aortic valve replacement. Continue medical treatment. TID: [id number] RECEIPT: [id number]
[2025-01-19 04:10] LABS: BASOPHILS # (AUTO) 0.01 K/uL (0.00-0.20); BASOPHILS % (AUTO) 0.1 % (0.0-5.0); EOSINOPHILS # (AUTO) 0.01 K/uL (0.00-0.70); EOSINOPHILS % (AUTO) 0.1 % (0.0-8.0); HEMATOCRIT 26.7 % (42-54); IMMATURE GRANULOCYTE ABSOLUTE 0.06 K/uL (0-1); LYMPHOCYTES # (AUTO) 1.1 K/uL (1.0-4.8); LYMPHOCYTES % (AUTO) 11.6 % (21.0-51.0); MEAN CORPUSCULAR HGB CONC 33.7 g/dL (32.0-36.0); MONOCYTES # (AUTO) 0.6 K/uL (0.1-1.0); MONOCYTES % (AUTO) 6.6 % (3.0-13.0); NEUTROPHILS # (AUTO) 7.7 K/uL (1.8-7.7); PLATELET COUNT (AUTO) 149 K/uL (130-400); RED BLOOD CELL COUNT(AUTO) 2.81 MIL/uL (4.50-6.20); RED CELL DISTRIBUTION WIDTH 12.8 % (11.0-15.5); WHITE BLOOD COUNT (AUTO) 9.5 K/uL (4.8-10.8)
[2025-01-19 04:25] LABS: CREATININE 0.9 mg/dL (0.5-1.3); POTASSIUM 4.3 mmol/L (3.5-5.1)
--- NOTE | 2025-01-19 07:29 | PN ---
[facility] CARDIOLOGY PROGRESS NOTE Date Patient Seen: Jan 19, 2025 Time of Visit: 07:28 Interval History: [No events overnight. Physical Examination: GENERAL: [No acute distress.] HEAD: [Normal with no signs of head trauma.] EYES: [PERRLA, EOMI, conjunctiva and sclera normal.] ENT: [Hearing grossly intact, normal oropharynx.] NECK: [Supple without JVD. There is no tenderness, lymphadenopathy, or masses. No thyromegaly. Normal carotid upstrokes without bruits.] LUNGS: [Clear breath sounds bilaterally. There are right basilar rales one third of the way up the chest. No wheezes, or rhonchi.] HEART: [Normal rate and rhythm. Normal S1 and S2 without mumurs, gallop or rub.] VASC: [Peripheral pulses +2 bilaterally.] ABD: [Bowel sounds normal, soft, nontender, no masses, no organomegaly. No audible bruits.] : [Not examined] LYMPH: [No lymphadenopathy noted.] EXT: [No clubbing, cyanosis or edema.] SKIN: [No rashes or lesions noted.] NEURO: [Awake, alert, and oriented x3. No focal sensory or strength deficits noted.] Laboratory: [ ] Hematology Labs: Test 01/19/25 03:52 Range/Units White Blood Count 9.5 4.8-10.8 K/uL Red Blood Count 2.81 L 4.50-6.20 MIL/uL Hemoglobin 9.0 L 14.0-18.0 g/dL Hematocrit 26.7 L 42-54 % Mean Corpuscular Volume 95.0 79-99 fL Mean Corpuscular Hemoglobin 32.0 27.0-33.0 pg Mean Corpuscular Hemoglobin Concent 33.7 32.0-36.0 g/dL Red Cell Distribution Width 12.8 11.0-15.5 % Platelet Count 149 130-400 K/uL Mean Platelet Volume 11.0 H 7.5-10.5 fL Immature Granulocyte % (Auto) 0.6 0-1 % Neutrophils (%) (Auto) 81.0 H 40.0-77.0 % Lymphocytes (%) (Auto) 11.6 L 21.0-51.0 % Monocytes (%) (Auto) 6.6 3.0-13.0 % Eosinophils (%) (Auto) 0.1 0.0-8.0 % Basophils (%) (Auto) 0.1 0.0-5.0 % Neutrophils # (Auto) 7.7 1.8-7.7 K/uL Lymphocytes # (Auto) 1.1 1.0-4.8 K/uL Monocytes # (Auto) 0.6 0.1-1.0 K/uL Eosinophils # (Auto) 0.01 0.00-0.70 K/uL Basophils # (Auto) 0.01 0.00-0.20 K/uL Absolute Immature Granulocyte (auto 0.06 0-1 K/uL Nucleated Red Blood Cells 0.0 0.0-0.19 % Chemistry Labs: Test 01/19/25 05:35 01/19/25 03:52 01/18/25 02:20 Range/Units Whole Blood Glucose 149 H 70-110 MG/DL Sodium Level 139 136-145 mmol/L Potassium Level 4.3 3.5-5.1 mmol/L Chloride Level 108 101-111 mmol/L Carbon Dioxide Level 24 21-32 mmol/L Blood Urea Nitrogen 19 H 7-18 mg/dL Creatinine 0.9 0.5-1.3 mg/dL Glomerular Filtration Rate Calc 108 >90 mL/min Random Glucose 201 H 70-105 mg/dL Total Calcium 7.6 L 8.5-10.1 mg/dL Phosphorus Level 3.2 2.5-4.9 mg/dL Magnesium Level 1.50 L 1.80-2.40 mg/dL Coagulation Labs: Test 01/18/25 13:18 Range/Units Activated Partial Thromboplast Time 47.3 #H 26.3-35.5 SEC Diagnostics / Radiology: [Copy/Paste Echos/Imaging Report here] Impression and Plan: [ Aortic valve endocarditis with mobile vegetation in the right coronary cusp of the aortic valve by 2D echocardiogram 01/05/2025 and confirmed by DRAKE 01/11: Staph aureus in 2/2 sets of blood cultures 01/05/2025: -Infectious Disease has adjusted antibiotic therapy -MSSA bacteremia on repeat blood cultures -Aortic valve vegetation measuring 1.1 cm, consulted CV surgery, pending possible AVR. Patient is high risk given advanced liver disease and thrombocytopenia -DRAKE on 01/11/2025 with LVEF of 60-65%, Left atrial appendage clot present, Aortic valve is trileaflet and open well. Non coronary cusp leaflet has vegetation that measures 1.81cm x 1.17cm. ID abx for MSSA for 6 weeks and repeat DRAKE at that time -blood cultures negative for 48 hours as of 01/14/2025 KARINA thrombus --Started on Heparin gtt, will transition to oral anticoagulation once no surgi lia interventions are performed Thrombocytopenia with platelet count falling to 21,000 on 01/05/2025, now improved -Dr. 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
[2025-01-19 07:56] VITALS: BP 129/77; PULSE 61; RESP 17; TEMP 98.1
[2025-01-19 08:10] VITALS: O2SAT 99
--- NOTE | 2025-01-19 08:34 | PN ---
GASTROENTEROLOGY PROGRESS NOTE Date of Visit: Jan 19, 2025 Time of Visit: 08:32 Events / Notes: No acute events overnight. Patient had EGD revealing LA Grade B esophagitis. Denies fever, chills, abdominal pain, N/V, hematemesis, bloating, constipation, diarrhea, melena or hematochezia. Hgb trended down slightly today. No overt GI bleeding. Review of Systems: CONSTITUTIONAL: No malaise or change in sensation of wellbeing. ENMT: No rhinorrhea, otorrhea, sinus pain, ear ache. CARDIOVASCULAR: No angina, palpitations, orthopnea or paroxysmal dyspnea. RESPIRATORY: No SOB. GASTROINTESTINAL: No abdominal pain, nausea, vomiting, diarrhea, hematemesis, melena or change in the patient's habitual bowel movements consistency/number. GENITOURINARY: No dysuria, hematuria or change in bladder continence. MUSCULOSKELETAL: No new muscle pain or decrease in muscular strength. No new joint swelling, redness or tenderness. SKIN: No new rash. Physical Exam: GEN: Awake, alert, oriented in person, time and place, and in no acute distress. HEENT: No sinus tenderness. Tympanic membranes were not examined. No rhinorrhea. Oral pharyngeal mucosa is pink, moist and within normal limits. Neck is supple with no cervical lymphadenopathy, thyromegaly or JVD. CHEST: Inspection, palpation and percussion of the chest were unremarkable. Lung auscultation revealed normal breath sounds bilaterally. CARDIAC: PMI is within normal limits. Heart sounds are regular. Normal S1, S2. No gallop or murmur. ABD: Soft, non-tender and not distended. No peritoneal signs on palpation. No organomegaly. Normal bowel sounds. EXT: No cyanosis or clubbing. No edema. SKIN: Intact. No rashes. JOINTS: No evidence of synovitis or acute arthritis. NEURO: Alert and oriented to name, place and person. Cranial nerve examination is unremarkable. No focal motor deficits. Normal speech. Gait is normal. Strength is normal. Vital Signs (last 8hr) Date Time Temp Pulse Resp B/P (MAP) Pulse Ox O2 Delivery O2 Flow Rate FiO2 01/19/25 07:56 98.1 61 17 129/77 99 Room Air 0.0 Laboratory: [ ] Laboratory: Test 01/19/25 05:35 01/19/25 03:52 01/18/25 13:18 01/18/25 02:20 Range/Units Whole Blood Glucose 149 H 70-110 MG/DL White Blood Count 9.5 4.8-10.8 K/uL Red Blood Count 2.81 L 4.50-6.20 MIL/uL Hemoglobin 9.0 L 14.0-18.0 g/dL Hematocrit 26.7 L 42-54 % Mean Corpuscular Volume 95.0 79-99 fL Mean Corpuscular Hemoglobin 32.0 27.0-33.0 pg Mean Corpuscular Hemoglobin Concent 33.7 32.0-36.0 g/dL Red Cell Distribution Width 12.8 11.0-15.5 % Platelet Count 149 130-400 K/uL Mean Platelet Volume 11.0 H 7.5-10.5 fL Immature Granulocyte % (Auto) 0.6 0-1 % Neutrophils (%) (Auto) 81.0 H 40.0-77.0 % Lymphocytes (%) (Auto) 11.6 L 21.0-51.0 % Monocytes (%) (Auto) 6.6 3.0-13.0 % Eosinophils (%) (Auto) 0.1 0.0-8.0 % Basophils (%) (Auto) 0.1 0.0-5.0 % Neutrophils # (Auto) 7.7 1.8-7.7 K/uL Lymphocytes # (Auto) 1.1 1.0-4.8 K/uL Monocytes # (Auto) 0.6 0.1-1.0 K/uL Eosinophils # (Auto) 0.01 0.00-0.70 K/uL Basophils # (Auto) 0.01 0.00-0.20 K/uL Absolute Immature Granulocyte (auto 0.06 0-1 K/uL Nucleated Red Blood Cells 0.0 0.0-0.19 % Sodium Level 139 136-145 mmol/L Potassium Level 4.3 3.5-5.1 mmol/L Chloride Level 108 101-111 mmol/L Carbon Dioxide Level 24 21-32 mmol/L Blood Urea Nitrogen 19 H 7-18 mg/dL Creatinine 0.9 0.5-1.3 mg/dL Glomerular Filtration Rate Calc 108 >90 mL/min Random Glucose 201 H 70-105 mg/dL Total Calcium 7.6 L 8.5-10.1 mg/dL Activated Partial Thromboplast Time 47.3 #H 26.3-35.5 SEC Phosphorus Level 3.2 2.5-4.9 mg/dL Magnesium Level 1.50 L 1.80-2.40 mg/dL Gentamicin Level Trough 0.7 0.0-2.0 mcg/mL Test 01/17/25 16:20 Range/Units Gentamicin Level Peak 1.9 L 4.0-8.0 mcg/mL Current Medications Medications (Trade) Dose Ordered Sig/Asya Route PRN Reason Start Time Stop Time Status Last Admin Dose Admin Acetaminophen (TYLenol 325MG TAB) 650 mg Q6H PRN PO MILD PAIN (1-3) 01/16/25 17:30 02/15/25 17:29 Acetaminophen (TYLenol 325MG TAB) 650 mg Q6H PRN PO TEMPERATURE GREATER THAN 101.5 01/05/25 02:30 02/04/25 02:29 01/16/25 17:26 650 MG Apixaban (EliquIS) 5 mg BID PO 01/25/25 21:00 02/24/25 20:59 Apixaban (EliquIS) 10 mg BID PO 01/18/25 21:00 01/18/25 13:52 DC Apixaban (EliquIS) 10 mg BID PO 01/18/25 21:00 01/25/25 20:59 01/18/25 20:15 10 MG Aspirin (Aspirin 81mg Chew Tab) 81 mg DAILY PO 01/05/25 09:00 01/05/25 09:53 DC Aspirin (Aspirin 81mg Ec Tab) 81 mg DAILY PO 01/16/25 09:00 02/15/25 08:59 01/18/25 08:33 81 MG Benzocaine (Cepacol Sore Throat Lozenge) 1 each Q4H PRN MM SORE THROAT 01/05/25 02:30 02/04/25 02:29 Calcium Gluconate 1 gm/Sodium Chloride 100 ml @ 0 mls/hr AD PRN IV Serum Calcium Correction 01/08/25 02:30 02/07/25 02:29 01/08/25 23:32 90 MLS/HR Cefazolin Sodium (Ancef) 2 gm Q12H IVPB 01/07/25 13:30 01/16/25 14:43 DC 01/16/25 01:12 2 GM Cefazolin Sodium (Ancef) 2 gm Q8H IVPB 01/16/25 21:30 01/17/25 13:22 DC 01/17/25 05:07 2 GM Chlordiazepoxide HCl (LIBrium 25 MG CAP) 25 mg Q8H PO 01/05/25 02:30 01/11/25 11:39 DC 01/10/25 22:23 25 MG Chlordiazepoxide HCl (LIBrium 25 MG CAP) 25 mg Q8H PRN PO WITHDRAWAL 01/11/25 12:00 01/12/25 02:29 DC Dexamethasone Sodium Phosphate 20 mg/Sodium Chloride 52 ml @ 100 mls/hr DAILY IV 01/09/25 09:00 02/08/25 08:59 01/18/25 12:28 100 MLS/HR Dexamethasone Sodium Phosphate 40 mg/Sodium Chloride 50 ml @ 100 mls/hr DAILY IV 01/06/25 14:00 01/08/25 12:16 DC 01/08/25 09:34 100 MLS/HR Dextrose (D50w) 50 ml AD PRN IV HYPOGLYCEMIA PROTOCOL 01/05/25 10:00 02/04/25 09:59 Doxycycline Hyclate 250 ml @ 125 mls/hr Q12H IV 01/05/25 10:00 01/06/25 21:05 DC 01/06/25 09:30 125 MLS/HR Doxycycline Hyclate 250 ml @ 125 mls/hr Q12H IV 01/06/25 21:30 01/16/25 14:23 DC 01/16/25 10:13 125 MLS/HR Fluconazole (DiFLUCan 100 mg TAB) 200 mg DAILY PO 01/12/25 09:00 02/11/25 08:59 01/18/25 08:33 200 MG Folic Acid (FOLic ACID 1 MG TABLET) 1 mg DAILY PO 01/07/25 10:30 02/06/25 10:29 01/18/25 08:32 1 MG Furosemide (LASix 20MG VIAL) 20 mg Q12H IV 01/07/25 16:00 01/11/25 00:56 DC 01/10/25 19:40 20 MG Gentamicin Sulfate/Sodium Chloride 100 ml @ 200 mls/hr Q12H IV 01/16/25 15:30 01/18/25 03:39 DC 01/17/25 16:00 200 MLS/HR Gentamicin Sulfate/Sodium Chloride 100 ml @ 200 mls/hr Q12H IV 01/18/25 04:00 01/28/25 03:59 01/19/25 03:52 200 MLS/HR Glucagon (Glucagon 1mg Kit) 1 mg AD PRN IM HYPOGLYCEMIA PROTOCOL 01/05/25 10:00 02/04/25 09:59 Heparin Sodium/ Dextrose 250 ml @ 0 mls/hr PROTOCOL IV 01/11/25 14:30 01/18/25 13:28 DC 01/17/25 16:09 13.99 MLS/HR Hydralazine HCl (APRESOLine 20MG INJ) 5 mg Q6H PRN IV For:SBP above 160;DBP above 90 01/05/25 14:30 02/04/25 14:29 01/10/25 22:24 5 MG Hydralazine HCl (APRESOLine 20MG INJ) 10 mg Q6H PRN IV For:SBP above 160;DBP above 90 01/05/25 02:30 01/05/25 09:53 DC Insulin Glargine (LANtus 100 UNITS/ML 10 ML VIAL) 15 units Q12H SQ 01/07/25 21:30 01/09/25 23:18 DC 01/09/25 13:10 15 UNITS Insulin Glargine (LANtus 100 UNITS/ML 10 ML VIAL) 20 units DAILY SQ 01/14/25 09:00 02/13/25 08:59 01/18/25 08:45 20 UNITS Insulin Glargine (LANtus 100 UNITS/ML 10 ML VIAL) 20 units HS SQ 01/06/25 21:00 01/06/25 21:05 DC Insulin Glargine (LANtus 100 UNITS/ML 10 ML VIAL) 20 units HS SQ 01/06/25 21:30 01/07/25 10:24 DC 01/06/25 21:33 20 UNITS Insulin Glargine (LANtus 100 UNITS/ML 10 ML VIAL) 20 units Q12H SQ 01/10/25 09:30 01/10/25 12:58 DC Insulin Glargine (LANtus 100 UNITS/ML 10 ML VIAL) 25 units Q12H SQ 01/10/25 21:30 01/11/25 00:50 DC 01/10/25 22:19 25 UNITS Insulin Glargine (LANtus 100 UNITS/ML 10 ML VIAL) 30 units DAILY SQ 01/12/25 09:00 01/14/25 07:03 DC 01/12/25 11:25 30 UNITS Insulin Glargine (LANtus 100 UNITS/ML 10 ML VIAL) 30 units Q12H SQ 01/11/25 09:30 01/11/25 20:13 DC 01/11/25 10:50 30 UNITS Insulin Human Regular (humuLIN R 100 UNIT/ML 3ML) 5 unit TIDAC SQ 01/14/25 07:30 02/13/25 07:29 01/19/25 06:33 5 UNIT Insulin Human Regular (humuLIN R 100 UNIT/ML 3ML) 8 unit TIDAC SQ 01/11/25 07:30 01/14/25 07:03 DC 01/13/25 19:47 8 UNIT Insulin Human Regular (humuLIN R 100 UNIT/ML 3ML) INSULIN SLIDING SCAL... ACHS SQ 01/18/25 21:00 02/17/25 20:59 01/18/25 20:21 4 UNIT Insulin Human Regular (humuLIN R 100 UNIT/ML 3ML) INSULIN SLIDING SCAL... ACHS SQ 01/05/25 07:30 01/05/25 09:57 DC 01/05/25 07:59 16 UNIT Insulin Human Regular (humuLIN R 100 UNIT/ML 3ML) INSULIN SLIDING SCAL... ACHS SQ 01/05/25 11:30 01/06/25 16:43 DC 01/06/25 11:50 8 UNIT Insulin Human Regular (humuLIN R 100 UNIT/ML 3ML) INSULIN SLIDING SCAL... ACHS SQ 01/06/25 17:00 01/07/25 13:32 DC 01/06/25 17:17 16 UNIT Insulin Human Regular (humuLIN R 100 UNIT/ML 3ML) INSULIN SLIDING SCAL... Q4H SQ 01/11/25 02:00 01/11/25 23:59 DC 01/11/25 20:49 6 UNIT Insulin Human Regular (humuLIN R 100 UNIT/ML 3ML) INSULIN SLIDING SCAL... Q4H SQ 01/11/25 23:59 01/18/25 19:33 DC 01/18/25 16:59 4 UNIT Insulin Human Regular (humuLIN R 100 UNIT/ML 3ML) INSULIN SLIDING SCAL... Q6H6 SQ 01/10/25 18:00 01/11/25 00:50 DC 01/11/25 00:45 10 UNIT Insulin Human Regular 100 unit/ Sodium Chloride 100 ml @ 0 mls/hr AD PRN IV HYPERGLYCEMIA PROTOCOL 01/06/25 19:30 01/10/25 06:00 DC 01/09/25 19:10 16 MLS/HR Lactated Ringer's 1,000 ml @ 100 mls/hr Q10H IV 01/05/25 02:30 01/05/25 09:51 DC 01/05/25 02:30 100 MLS/HR Lactated Ringer's 1,000 ml @ 125 mls/hr Q8H IV 01/10/25 01:30 01/10/25 19:40 DC 01/10/25 13:07 125 MLS/HR Lactobacillus Rhamnosus ([facility]) 1 each DAILY PO 01/12/25 09:00 02/11/25 08:59 01/18/25 08:32 1 EACH Lorazepam (AtiVAN) 1 mg Q4H PRN IVP ALCOHOL WITHDRAWAL PROTOCOL 01/05/25 02:30 01/12/25 02:29 DC Magnesium Sulfate 50 ml @ 0 mls/hr PROTOCOL PRN IV h 01/05/25 02:30 02/04/25 02:29 01/18/25 08:34 25 MLS/HR Morphine Sulfate (morPHINE 2MG SYG) 2 mg Q4H PRN IVP SEVERE PAIN (7-10) 01/05/25 02:30 01/12/25 02:29 DC Multivitamins Therapeutic (Multivitamin Tablet) 1 tab DAILY PO 01/07/25 10:30 02/06/25 10:29 01/18/25 08:32 1 TAB Nafcillin Sodium (Nafcillin 2gm+ NS 100ml) 2 gm Q6H6 IV 01/17/25 18:00 01/27/25 17:59 01/19/25 05:48 2 GM Nicotine (Nicoderm) 21 mg DAILY TD 01/05/25 09:00 02/04/25 08:59 01/18/25 08:33 21 MG Nitroglycerin (Nitrostat) 0.4 mg AD PRN SL CHEST PAIN 01/05/25 02:30 02/04/25 02:29 Nystatin (NYSTatin 435117 UNIT/ML 5ML UDCUP) 100,000 UNITS 1 ML TO E... QID PO 01/18/25 09:00 02/17/25 08:59 01/18/25 20:16 2 ML Ondansetron HCl (zoFRAN 4MG INJ) 4 mg Q6H PRN IV NAUSEA/VOMITING 01/05/25 02:30 02/04/25 02:29 Pantoprazole Sodium (PROTonix 40MG TAB) 40 mg DAILY PO 01/05/25 09:00 02/04/25 08:59 01/18/25 08:32 40 MG Pharmacy Profile Note (Pharmacy Communication) 1 each ONCE MISC 01/16/25 14:30 01/16/25 15:12 DC Pharmacy Profile Note (Pharmacy Communication) 1 each PROTOCOL PRN MISC ETOH Withdrawal Score changes 01/05/25 02:30 01/12/25 02:29 DC Piperacillin Sod/ Tazobactam Sod (Zosyn 3.375gm+NS 50ml) 3.375 gm Q12H IV 01/05/25 02:30 01/07/25 13:24 DC 01/07/25 02:45 3.375 GM Potassium Phosphate 250 ml @ 42 mls/hr PROTOCOL PRN IV PROTOCOL 01/05/25 10:00 02/04/25 09:59 Potassium Chloride 100 ml @ 100 mls/hr AD PRN IV POTASSIUM PROTOCOL 01/05/25 02:30 01/07/25 10:12 DC Potassium Chloride 100 ml @ 100 mls/hr AD PRN IV POTASSIUM PROTOCOL 01/07/25 10:30 02/06/25 10:29 01/09/25 06:26 100 MLS/HR Potassium Chloride (K-Dur 10meq Sr Tab) 10 meq AD PRN PO POTASSIUM PROTOCOL 01/06/25 09:30 02/04/25 02:29 01/08/25 23:35 10 MEQ Potassium Chloride (K-Dur/Klor-Con 20meq) 10 meq AD PRN PO POTASSIUM PROTOCOL 01/05/25 02:30 01/06/25 09:12 DC 01/05/25 22:15 10 MEQ Potassium Chloride (K-Dur/Klor-Con 20meq) 10 meq AD PRN PO POTASSIUM PROTOCOL 01/07/25 10:30 01/07/25 10:12 DC Potassium Chloride (KCl 10% Elixir 20meq/15ml) 10 meq AD PRN PO POTASSIUM PROTOCOL 01/05/25 02:30 01/07/25 10:12 DC 01/06/25 17:16 10 MEQ Potassium Chloride (KCl 10% Elixir 20meq/15ml) 10 meq AD PRN PO POTASSIUM PROTOCOL 01/07/25 10:30 02/06/25 10:29 01/08/25 15:28 10 MEQ Sodium Bicarbonate (Sodium Bicarbonate) 1,300 mg BID PO 01/11/25 09:00 02/10/25 08:59 01/18/25 20:15 1,300 MG Sodium Chloride 1,000 ml @ 50 mls/hr Q20H IV 01/05/25 10:00 01/10/25 01:33 DC 01/09/25 05:56 50 MLS/HR Sodium Chloride 1,000 ml @ 75 mls/hr [id number] IV 01/11/25 01:00 01/11/25 13:45 DC 01/11/25 01:00 75 MLS/HR Triamcinolone Acetonide (Kenalog/ Aristocort) 1 APPLY TP BID BID TP 01/07/25 11:00 02/06/25 10:59 01/18/25 20:16 1 APPL Vancomycin HCl (Vancomycin Protocol) 1 each AD IV 01/07/25 12:30 01/07/25 12:40 DC Diagnostics / Radiology: [COPY/PASTE HERE IF NO REPORTS PLEASE DELETE SECTION] Assessment: GERD esophagitis Decompensated cirrhosis Thrombocytopenia Abnormal troponin Alcohol abuse Plan: Follow cardio recommendations Will obtain liver serologies to r/o other liver pathology Please contact our service if the patient has significant bleeding such as hematemesis and we can proceed sooner with the EGD Thanks you for allowing us to participate in the care of this patient! HILDA MUIR [employer]TING [employer]INE O[employer]ATOR Jan 19, 2025 08:34
--- NOTE | 2025-01-19 10:13 | PN ---
INFECTIOUS DISEASE PROGRESS NOTE Date of Service: Jan 19, 2025 SUBJECTIVE: This is a 44-year-old male patient who was admitted for chief complaint of weakness and status post fall at home. A Urine culture collected on admission came back positive for Klebsiella pneumoniae and the blood cultures results came back positive for Methicillin sensitive Staphylococcus aureus 2 of 2 sets and the reason for this consult. A 2D echo done on admission showed Aortic valve endocarditis and DRAKE done on 01/11/2025 with findings of aortic valve vegetation and Left atrial appendage clot. Patient was seen and examined at bedside in room 412. Patient is awake, alert and oriented x3. Patient is status post DRAKE on 01/11/2025 with findings of aortic valve vegetation and left atrial appendage clot. Patient has been started on Eliquis. Multiple positive Blood cultures with MSSA. No fever reported today, temperature 98.1. Will continue on Nafci llin IV, Gentamicin per pharmacy renal dosing and fluconazole. No dyspnea and saturating 99 to100% on room air. Pending physical therapy evaluation. PHYSICAL EXAM EYES: Anicteric. Pupils equal and reactive. HENT: No oral thrush seen, moist Oral mucosa. NECK: Supple, no JVD or thyromegaly. LUNGS: Good air entry. No rales, no rhonchi. CARDIOVASCULAR: S1, S2 regular. No murmur heard. ABDOMEN: Obese but Soft. CENTRAL NERVOUS SYSTEM: Awake, alert, oriented x 3. SKIN: No rashes, no swelling. LYMPHATICS: No peripheral lymphadenopathy MUSCULOSKELETAL: No joint swelling, erythema or tenderness. Weakness. EXTREMITIES: No cyanosis or clubbing. Edematous. BACK: No deformity, no pressure ulcer. GENITOURINARY: No dysuria or hematuria. Vital Sign (Last 12 Hours) 01/18/25 01/19/25 23:58 07:56 Temp 98.4 98.1 Pulse 80 61 Resp 20 17 B/P (MAP) 127/79 129/77 Pulse Ox 99 99 O2 Delivery Room Air Room Air O2 Flow Rate 0.0 Intake & Output (last 24hrs) 01/18/25 01/18/25 01/19/25 15:00 23:00 07:00 Intake Total 250 ml 875 ml Balance 250 ml 875 ml LABS: Laboratory: Test 01/19/25 05:35 01/19/25 03:52 01/18/25 13:18 01/18/25 02:20 Range/Units Whole Blood Glucose 149 H 70-110 MG/DL White Blood Count 9.5 4.8-10.8 K/uL Red Blood Count 2.81 L 4.50-6.20 MIL/uL Hemoglobin 9.0 L 14.0-18.0 g/dL Hematocrit 26.7 L 42-54 % Mean Corpuscular Volume 95.0 79-99 fL Mean Corpuscular Hemoglobin 32.0 27.0-33.0 pg Mean Corpuscular Hemoglobin Concent 33.7 32.0-36.0 g/dL Red Cell Distribution Width 12.8 11.0-15.5 % Platelet Count 149 130-400 K/uL Mean Platelet Volume 11.0 H 7.5-10.5 fL Immature Granulocyte % (Auto) 0.6 0-1 % Neutrophils (%) (Auto) 81.0 H 40.0-77.0 % Lymphocytes (%) (Auto) 11.6 L 21.0-51.0 % Monocytes (%) (Auto) 6.6 3.0-13.0 % Eosinophils (%) (Auto) 0.1 0.0-8.0 % Basophils (%) (Auto) 0.1 0.0-5.0 % Neutrophils # (Auto) 7.7 1.8-7.7 K/uL Lymphocytes # (Auto) 1.1 1.0-4.8 K/uL Monocytes # (Auto) 0.6 0.1-1.0 K/uL Eosinophils # (Auto) 0.01 0.00-0.70 K/uL Basophils # (Auto) 0.01 0.00-0.20 K/uL Absolute Immature Granulocyte (auto 0.06 0-1 K/uL Nucleated Red Blood Cells 0.0 0.0-0.19 % Sodium Level 139 136-145 mmol/L Potassium Level 4.3 3.5-5.1 mmol/L Chloride Level 108 101-111 mmol/L Carbon Dioxide Level 24 21-32 mmol/L Blood Urea Nitrogen 19 H 7-18 mg/dL Creatinine 0.9 0.5-1.3 mg/dL Glomerular Filtration Rate Calc 108 >90 mL/min Random Glucose 201 H 70-105 mg/dL Total Calcium 7.6 L 8.5-10.1 mg/dL Activated Partial Thromboplast Time 47.3 #H 26.3-35.5 SEC Phosphorus Level 3.2 2.5-4.9 mg/dL Magnesium Level 1.50 L 1.80-2.40 mg/dL Gentamicin Level Trough 0.7 0.0-2.0 mcg/mL Test 01/17/25 16:20 Range/Units Gentamicin Level Peak 1.9 L 4.0-8.0 mcg/mL ASSESSMENT: Methicillin-susceptible Staphylococcus aureus bacteremia status post DRAKE on 01/11/2025 with findings of aortic valve vegetation and Left atrial appendage clot. Aortic valve endocarditis on 2D echo. Urinary tract infection with Klebsiella pneumoniae. Chronic scalp folliculitis. Leukocytosis. Thrombocytopenia requiring platelet transfusion, resolving. Acute on chronic renal failure, resolving. Substance abuse, Cocaine and ETOH. Streptococcus viral infection. Uncontrolled diabetes mellitus. Debility. PLAN: Continue Nafcillin. Continue Gentamicin per pharmacy renal dosing. Patient will need 6 weeks of IV antibiotics. Will follow up on the repeat blood cultures. Currently on Eliquis. Avoid nephrotoxic medications. Continue GI prophylaxis. Manager Demand following patient. Continue monitoring glucose levels. Pending Physical therapy evaluation. This case was reviewed and discussed with my supervising physician and the above assessment and plan was formulated and agreed upon. ATTESTATION BY PHYSICIAN I have seen and examined the patient. I reviewed the documentation, medical decision making, and treatment plan as noted by the mid-level provider above. I agree with the findings and plan of care. JANUARY CARLSON MD, MIRTA L FNP Jan 19, 2025 10:13
[2025-01-19 12:00] VITALS: BP 116/58; PULSE 75; RESP 21; TEMP 98
--- NOTE | 2025-01-19 12:37 | PN ---
FOLLOWUP PROGRESS NOTE SUBJECTIVE: A 44-year-old male with a history of diabetes mellitus and hypertension. The patient initially admitted and found to have endocarditis. The patient remains on the IV antibiotics. The patient was seen by Cardiovascular Surgery. He has had acute on chronic renal failure in the hospital. Creatinine has been elevated and the patient is being seen for all the above. REVIEW OF SYSTEMS: GENERAL: He is feeling weak and tired. HEENT: No change in vision. No change in hearing. CARDIOVASCULAR: No current chest pains or palpitations. PULMONARY: There is no shortness of breath. GASTROINTESTINAL: The patient is tolerating diet. MUSCULOSKELETAL: Complains of weakness. PHYSICAL EXAMINATION:. VITAL SIGNS: Blood pressure 129/77, pulse in the 60s. GENERAL: He is a chronically ill male, much older than appearing. HEENT: Head is atraumatic. Pupils equal, roving to light. Oropharynx is without exudate. Nares clear. NECK: There is no JVP, no thyromegaly, no mass. CARDIOVASCULAR: Regular. There is no S3, S4, gallop. LUNGS: Coarse with equal thoracic movement. ABDOMEN: Soft, nondistended, nontender. EXTREMITIES: Reveal no clubbing, no cyanosis. NEUROLOGIC: He is awake. He is alert. LABORATORY DATA: Hemoglobin 9, hematocrit 26. BUN 19. Creatinine 0.9. IMPRESSION: 1. Acute on chronic renal failure. 2. Endocarditis. 3. Diabetic nephropathy. 4. Hypertension. PLAN: The patient's creatinine continues to stabilize. The patient remains on the antibiotics. The patient is being seen by case management in regards to final disposition. The patient has been started on the Eliquis for the regurgitation. All labs can be repeated in the morning. TID: [id number] RECEIPT: [id number]
[2025-01-19 16:00] VITALS: BP 115/57; PULSE 52; RESP 20; TEMP 97.9
--- NOTE | 2025-01-19 18:21 | PN ---
[facility] PROGRESS NOTE Date of Service: Jan 19, 2025 Time of Service: 18:19 SUBJECTIVE: [ ] The patient has been seen and examined at bedside, no acute events overnight, the patient is comfortable, cooperating well, alert oriented x3, he is on a CIWA protocol, not combative. BP 123/70, rest of vital signs unremarkable. Patient received transfusion of 1 unit of platelet, platelet count improved to 27, per heavy machinery assembler, likely due to splenomegaly. Echocardiogram reviewed, hypodense echogenic mobile vegetation to right coronary cusp leaflet, per cardiology once platelet count is greater than 50 1000 we will proceed with a a DRAKE. The pa tient also with a elevated blood sugar, continue insulin sliding scale, add insulin glargine 20 units subcutaneously at bedtime. Continue the patient on broad-spectrum IV antibiotics, continue to trend WBC in a.m.. 01/07 patient is seen and examined at bedside, case discussed with the RN, patient upgraded last night to the ICU to start insulin drip as blood glucose per sistently greater than 400. Patient started on dexamethasone IV by heavy machinery assembler do to ITP. Platelet count slightly better today at 41. Upon my initial encounter with the patient admitted that he drinks more than 18 beers per day. He was started on CIWA protocol, however has remained hemodynamically stable, comfortable in bed, no signs of withdrawal, cooperating fine. Not agitated, not combative. Toxicology screen positive for cocaine. Sodium level slowly improvi ng, today 132. Serology positive for influenza type A. The patient with significant proteinuria consistent with diabetic nephropathy, creatinine slowly trending down, no need for renal replacement therapy per creative designer. Patient with blood culture positive for Staphylococcus aureus, with urine culture positive for Klebsiella pneumoniae. We will add vancomycin IV pharmacy to dose. We will request Infectious Disease consultation. Echocardiogram reviewed, hypodense echogenic mobile vegetation to right coronary cusp leaflet, per cardiology once platelet count is greater than 50 1000 we will proceed with a a DRAKE. CT abdomen with gallstones in the gallbladder. HIDA scan pending 01/08 patient seen at bedside, no acute events overnight. He continues on insulin drip with an anion gap of 14, we will continue until the gap is closed. P latelets 54, we will follow up with Cardiology on optimal timing for DRAKE. Continue with IV antibiotics, further care per critical Care. 2/10 patient seen at bedside, no acute events overnight. Anion gap is still open at 14, we will continue IV insulin. Platelets improved from 54 up to 71, CO2 decreased from 17 down to 15. Cardiology planning on DRAKE today, we will follow up postprocedure. Repeat blood cultures are positive for Gram-positive organisms which further supports underlying endocarditis. Continue with IV antibiotics, appreciate Infectious Disease recommendations. He has been afebrile, hemodynamically stable saturating well on room air. WBC increased from 12.8 up to 13.6, BUN decreased from 93 down to 90, creatinine decreased from 2.5 down to 2.3, remainder of his labs are relatively unremarkable. 01/10 Pt seen at bedside, no acute events overnight. Pt with anion gap of 14, CO2 still low at 16. Repeat lactic acid was ordered, elevated at 4.8, will bolus patient and continue with IV fluids. DRAKE was rescheduled to today, will follow up with results.WBC improved from 13.6 down to 11.7, Hgb decreased from 15.1 down to 12.4, platelets decreased from 71 down to 66, this substantial decrease in all cell lines suggests hemodilution, creatinine decreased from 2.2 down to 1.4, also likely falsely depressed. 01/11 Pt seen at bedside, no acute events overnight. Pending EGD to assess for esophageal varices and DRAKE today, will follow up post procedure. Yesterday repeat lactic acid was elevated at 4.8, the patient was bolused and it improved down to 1.3. He has been afebrile, hemodynamically stable, saturating well on room air. WBC increased from 11.7 up to 12.5, platelets improved from 66 up to 113, creatinine increased from 1.6 up to 1.8, CO2 improved from 17 up to 22 after patient was started on bicarb. Third set of blood cultures growing gram positive organisms 01/12 patient is seen and examined at bedside, case discussed with the RN, no acute events overnight, remains on broad-spectrum IV antibiotics, alert oriented x3, following commands. Patient underwent DRAKE 01/11, tolerated well, LVEF 60- 65%, no left ventricle thrombus noted. Right ventricle is severely dilated. Left atrial appendage clot present. No mass or thrombus in the left atrium. No mass or thrombus in the right atrium. Aortic valve is trileaflet, opens well, non coronary cusp leaflet has vegetation that measures 1.8 x 1.1 cm. No mitral valve vegetation, no tricuspid valve vegetation, no pulmonic valve vegetation. Finding discussed with the patient, all questions answered. 01/13 patient is seen and examined at bedside, case discussed with the RN, no acute events overnight, during my visit the patient comfortably in bed, hemodynamically stable, alert oriented x3, getting IV antibiotics, denies chest pain, no shortness a breath, no nausea, no vomiting. 01/14 patient is seen and examined at bedside, downgraded to the medical floor, case discussed with the RN, patient hemodynamically stable, alert oriented x3, on heparin drip, no chest pain, no shortness a breath, no nausea, no vomiting. 01/15 patient is seen and examined bedside, case discussed with the RN, no acute events overnight. Patient with blood culture positive for Staphylococcus aureus, with urine culture positive for Klebsiella pneumoniae. Patient underwent DRAKE 01/11, tolerated well, LVEF 60-65%, no left ventricle thrombus noted. Right ventricle is severely dilated. Left atrial appendage clot present. No mass or thrombus in the left atrium. No mass or thrombus in the right atrium. Aortic valve is trileaflet, opens well, non coronary cusp leaflet has vegetation that measures 1.8 x 1.1 cm. No mitral valve vegetation, no tricuspid valve vegetation, no pulmonic valve vegetation. Continue heparin drip. Patient evaluated by Cardiothoracic surgeon. Medical management recommended for now. Re-evaluate possibility of aortic valve replacement in the near future. 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 Continue to follow Hematology input and recommendation Discharge plan discussed with case management, patient is uninsured, probably will have to remain admitted until completion of IV antibiotic course. 01/16 Pt seen at bedside, no acute events overnight. Most recent blood cultures are no growth to date. CV surgery suggesting aortic valve replacement may be feasible if patient recent blood cultures no growth for another 5 days. If valve replacement will not be done, patient will need to complete full course of IV antibiotics before discharge as he is unfunded. Vitals and labs are relatively unremarkable 01/17 patient seen at bedside, no acute events overnight. Most recent blood cultures are growing Gram-positive organism, we will continue with IV antibiotics. Antibiotics have been adjusted by Infectious Disease, surgery will be held. 01/18 patient seen at bedside, no acute events overnight. Continue with broad- spectrum antibiotics, we will follow up with cardiovascular surgery regarding possible surgery once infection better controlled. Discussed case with heavy machinery assembler who recommends heparin drip however patient we will need to be anticoagulated on discharge and given his own fundus status we will likely need to be started on warfarin. Vitals and labs relatively unremarkable. 01/19 patient seen at bedside, no acute events overnight. Continue with broad- spectrum antibiotics, we will follow up with cardiovascular surgery regarding possible surgery once infection better controlled. Patient started on eliquis. Hgb decreased from 9.6 down to 9.0, Vitals and labs otherwise relatively unremarkable. REVIEW OF SYSTEMS 12 point review of systems negative unless noted in HPI PHYSICAL EXAM GENERAL APPEARANCE: The patient is awake, alert, and oriented, in no acute cardiopulmonary distress. NEUROLOGICAL: Cranial nerves II-XII grossly intact. Motor is 5/5 in bilateral upper and lower extremities proximal to distal. No sensory deficits. HEENT: Face is symmetric. Pupils are equal and reactive. Extraocular movements are intact. NECK: Supple. No JVD. No thyromegaly. No submental, submandibular, pre- /postauricular, occipital or supraclavicular lymphadenopathy. CHEST: Normal chest expansion. No Telemetry. LUNGS: Absence of any rales, rhonchi or any wheezing. CARDIOVASCULAR: Regular. S1 and S2 normal. No appreciable rubs, murmurs or gallops. ABDOMEN: Soft, nontender, and nondistended. There is no rebound, voluntary guarding, or rigidity. : Deferred. No Ortega. EXTREMITIES: Non-edematous and not cyanotic. No clubbing. Good capillary refill. SKIN: No skin breakdown. Vital Signs (last 8hr) Date Time Temp Pulse Resp B/P (MAP) Pulse Ox O2 Delivery O2 Flow Rate FiO2 01/19/25 12:00 98.1 75 21 116/58 99 Room Air LABS: Laboratory: Test 01/19/25 16:35 01/19/25 15:58 01/19/25 03:52 01/18/25 13:18 Range/Units Gentamicin Level Peak 2.8 #L 4.0-8.0 mcg/mL Whole Blood Glucose 231 #H 70-110 MG/DL White Blood Count 9.5 4.8-10.8 K/uL Red Blood Count 2.81 L 4.50-6.20 MIL/uL Hemoglobin 9.0 L 14.0-18.0 g/dL Hematocrit 26.7 L 42-54 % Mean Corpuscular Volume 95.0 79-99 fL Mean Corpuscular Hemoglobin 32.0 27.0-33.0 pg Mean Corpuscular Hemoglobin Concent 33.7 32.0-36.0 g/dL Red Cell Distribution Width 12.8 11.0-15.5 % Platelet Count 149 130-400 K/uL Mean Platelet Volume 11.0 H 7.5-10.5 fL Immature Granulocyte % (Auto) 0.6 0-1 % Neutrophils (%) (Auto) 81.0 H 40.0-77.0 % Lymphocytes (%) (Auto) 11.6 L 21.0-51.0 % Monocytes (%) (Auto) 6.6 3.0-13.0 % Eosinophils (%) (Auto) 0.1 0.0-8.0 % Basophils (%) (Auto) 0.1 0.0-5.0 % Neutrophils # (Auto) 7.7 1.8-7.7 K/uL Lymphocytes # (Auto) 1.1 1.0-4.8 K/uL Monocytes # (Auto) 0.6 0.1-1.0 K/uL Eosinophils # (Auto) 0.01 0.00-0.70 K/uL Basophils # (Auto) 0.01 0.00-0.20 K/uL Absolute Immature Granulocyte (auto 0.06 0-1 K/uL Nucleated Red Blood Cells 0.0 0.0-0.19 % Sodium Level 139 136-145 mmol/L Potassium Level 4.3 3.5-5.1 mmol/L Chloride Level 108 101-111 mmol/L Carbon Dioxide Level 24 21-32 mmol/L Blood Urea Nitrogen 19 H 7-18 mg/dL Creatinine 0.9 0.5-1.3 mg/dL Glomerular Filtration Rate Calc 108 >90 mL/min Random Glucose 201 H 70-105 mg/dL Total Calcium 7.6 L 8.5-10.1 mg/dL Activated Partial Thromboplast Time 47.3 #H 26.3-35.5 SEC Test 01/18/25 02:20 Range/Units Phosphorus Level 3.2 2.5-4.9 mg/dL Magnesium Level 1.50 L 1.80-2.40 mg/dL Gentamicin Level Trough 0.7 0.0-2.0 mcg/mL Current Medications Medications (Trade) Dose Ordered Sig/Asya Route PRN Reason Start Time Stop Time Status Last Admin Dose Admin Acetaminophen (TYLenol 325MG TAB) 650 mg Q6H PRN PO MILD PAIN (1-3) 01/16/25 17:30 02/15/25 17:29 Acetaminophen (TYLenol 325MG TAB) 650 mg Q6H PRN PO TEMPERATURE GREATER THAN 101.5 01/05/25 02:30 02/04/25 02:29 01/16/25 17:26 650 MG Apixaban (EliquIS) 5 mg BID PO 01/25/25 21:00 02/24/25 20:59 Apixaban (EliquIS) 10 mg BID PO 01/18/25 21:00 01/18/25 13:52 DC Apixaban (EliquIS) 10 mg BID PO 01/18/25 21:00 01/25/25 20:59 01/19/25 09:46 10 MG Aspirin (Aspirin 81mg Chew Tab) 81 mg DAILY PO 01/05/25 09:00 01/05/25 09:53 DC Aspirin (Aspirin 81mg Ec Tab) 81 mg DAILY PO 01/16/25 09:00 02/15/25 08:59 01/19/25 09:44 81 MG Benzocaine (Cepacol Sore Throat Lozenge) 1 each Q4H PRN MM SORE THROAT 01/05/25 02:30 02/04/25 02:29 Calcium Gluconate 1 gm/Sodium Chloride 100 ml @ 0 mls/hr AD PRN IV Serum Calcium Correction 01/08/25 02:30 02/07/25 02:29 01/08/25 23:32 90 MLS/HR Cefazolin Sodium (Ancef) 2 gm Q12H IVPB 01/07/25 13:30 01/16/25 14:43 DC 01/16/25 01:12 2 GM Cefazolin Sodium (Ancef) 2 gm Q8H IVPB 01/16/25 21:30 01/17/25 13:22 DC 01/17/25 05:07 2 GM Chlordiazepoxide HCl (LIBrium 25 MG CAP) 25 mg Q8H PO 01/05/25 02:30 01/11/25 11:39 DC 01/10/25 22:23 25 MG Chlordiazepoxide HCl (LIBrium 25 MG CAP) 25 mg Q8H PRN PO WITHDRAWAL 01/11/25 12:00 01/12/25 02:29 DC Dexamethasone Sodium Phosphate 20 mg/Sodium Chloride 52 ml @ 100 mls/hr DAILY IV 01/09/25 09:00 02/08/25 08:59 01/19/25 09:42 100 MLS/HR Dexamethasone Sodium Phosphate 40 mg/Sodium Chloride 50 ml @ 100 mls/hr DAILY IV 01/06/25 14:00 01/08/25 12:16 DC 01/08/25 09:34 100 MLS/HR Dextrose (D50w) 50 ml AD PRN IV HYPOGLYCEMIA PROTOCOL 01/05/25 10:00 02/04/25 09:59 Doxycycline Hyclate 250 ml @ 125 mls/hr Q12H IV 01/05/25 10:00 01/06/25 21:05 DC 01/06/25 09:30 125 MLS/HR Doxycycline Hyclate 250 ml @ 125 mls/hr Q12H IV 01/06/25 21:30 01/16/25 14:23 DC 01/16/25 10:13 125 MLS/HR Fluconazole (DiFLUCan 100 mg TAB) 200 mg DAILY PO 01/12/25 09:00 02/11/25 08:59 01/19/25 09:43 200 MG Folic Acid (FOLic ACID 1 MG TABLET) 1 mg DAILY PO 01/07/25 10:30 02/06/25 10:29 01/19/25 09:44 1 MG Furosemide (LASix 20MG VIAL) 20 mg Q12H IV 01/07/25 16:00 01/11/25 00:56 DC 01/10/25 19:40 20 MG Gentamicin Sulfate/Sodium Chloride 100 ml @ 200 mls/hr Q12H IV 01/16/25 15:30 01/18/25 03:39 DC 01/17/25 16:00 200 MLS/HR Gentamicin Sulfate/Sodium Chloride 100 ml @ 200 mls/hr Q12H IV 01/18/25 04:00 01/28/25 03:59 01/19/25 15:35 200 MLS/HR Glucagon (Glucagon 1mg Kit) 1 mg AD PRN IM HYPOGLYCEMIA PROTOCOL 01/05/25 10:00 02/04/25 09:59 Heparin Sodium/ Dextrose 250 ml @ 0 mls/hr PROTOCOL IV 01/11/25 14:30 01/18/25 13:28 DC 01/17/25 16:09 13.99 MLS/HR Hydralazine HCl (APRESOLine 20MG INJ) 5 mg Q6H PRN IV For:SBP above 160;DBP above 90 01/05/25 14:30 02/04/25 14:29 01/10/25 22:24 5 MG Hydralazine HCl (APRESOLine 20MG INJ) 10 mg Q6H PRN IV For:SBP above 160;DBP above 90 01/05/25 02:30 01/05/25 09:53 DC Insulin Glargine (LANtus 100 UNITS/ML 10 ML VIAL) 15 units Q12H SQ 01/07/25 21:30 01/09/25 23:18 DC 01/09/25 13:10 15 UNITS Insulin Glargine (LANtus 100 UNITS/ML 10 ML VIAL) 20 units DAILY SQ 01/14/25 09:00 02/13/25 08:59 01/19/25 09:53 20 UNITS Insulin Glargine (LANtus 100 UNITS/ML 10 ML VIAL) 20 units HS SQ 01/06/25 21:00 01/06/25 21:05 DC Insulin Glargine (LANtus 100 UNITS/ML 10 ML VIAL) 20 units HS SQ 01/06/25 21:30 01/07/25 10:24 DC 01/06/25 21:33 20 UNITS Insulin Glargine (LANtus 100 UNITS/ML 10 ML VIAL) 20 units Q12H SQ 01/10/25 09:30 01/10/25 12:58 DC Insulin Glargine (LANtus 100 UNITS/ML 10 ML VIAL) 25 units Q12H SQ 01/10/25 21:30 01/11/25 00:50 DC 01/10/25 22:19 25 UNITS Insulin Glargine (LANtus 100 UNITS/ML 10 ML VIAL) 30 units DAILY SQ 01/12/25 09:00 01/14/25 07:03 DC 01/12/25 11:25 30 UNITS Insulin Glargine (LANtus 100 UNITS/ML 10 ML VIAL) 30 units Q12H SQ 01/11/25 09:30 01/11/25 20:13 DC 01/11/25 10:50 30 UNITS Insulin Human Regular (humuLIN R 100 UNIT/ML 3ML) 5 unit TIDAC SQ 01/14/25 07:30 02/13/25 07:29 01/19/25 16:53 5 UNIT Insulin Human Regular (humuLIN R 100 UNIT/ML 3ML) 8 unit TIDAC SQ 01/11/25 07:30 01/14/25 07:03 DC 01/13/25 19:47 8 UNIT Insulin Human Regular (humuLIN R 100 UNIT/ML 3ML) INSULIN SLIDING SCAL... ACHS SQ 01/18/25 21:00 02/17/25 20:59 01/19/25 16:52 4 UNIT Insulin Human Regular (humuLIN R 100 UNIT/ML 3ML) INSULIN SLIDING SCAL... ACHS SQ 01/05/25 07:30 01/05/25 09:57 DC 01/05/25 07:59 16 UNIT Insulin Human Regular (humuLIN R 100 UNIT/ML 3ML) INSULIN SLIDING SCAL... ACHS SQ 01/05/25 11:30 01/06/25 16:43 DC 01/06/25 11:50 8 UNIT Insulin Human Regular (humuLIN R 100 UNIT/ML 3ML) INSULIN SLIDING SCAL... ACHS SQ 01/06/25 17:00 01/07/25 13:32 DC 01/06/25 17:17 16 UNIT Insulin Human Regular (humuLIN R 100 UNIT/ML 3ML) INSULIN SLIDING SCAL... Q4H SQ 01/11/25 02:00 01/11/25 23:59 DC 01/11/25 20:49 6 UNIT Insulin Human Regular (humuLIN R 100 UNIT/ML 3ML) INSULIN SLIDING SCAL... Q4H SQ 01/11/25 23:59 01/18/25 19:33 DC 01/18/25 16:59 4 UNIT Insulin Human Regular (humuLIN R 100 UNIT/ML 3ML) INSULIN SLIDING SCAL... Q6H6 SQ 01/10/25 18:00 01/11/25 00:50 DC 01/11/25 00:45 10 UNIT Insulin Human Regular 100 unit/ Sodium Chloride 100 ml @ 0 mls/hr AD PRN IV HYPERGLYCEMIA PROTOCOL 01/06/25 19:30 01/10/25 06:00 DC 01/09/25 19:10 16 MLS/HR Lactated Ringer's 1,000 ml @ 100 mls/hr Q10H IV 01/05/25 02:30 01/05/25 09:51 DC 01/05/25 02:30 100 MLS/HR Lactated Ringer's 1,000 ml @ 125 mls/hr Q8H IV 01/10/25 01:30 01/10/25 19:40 DC 01/10/25 13:07 125 MLS/HR Lactobacillus Rhamnosus ([facility] [employer]dO[employer] & GIDEEN) 1 each DAILY PO 01/12/25 09:00 02/11/25 08:59 01/19/25 09:46 1 EACH Lorazepam (AtiVAN) 1 mg Q4H PRN IVP ALCOHOL WITHDRAWAL PROTOCOL 01/05/25 02:30 01/12/25 02:29 DC Magnesium Sulfate 50 ml @ 0 mls/hr PROTOCOL PRN IV h 01/05/25 02:30 02/04/25 02:29 01/18/25 08:34 25 MLS/HR Morphine Sulfate (morPHINE 2MG SYG) 2 mg Q4H PRN IVP SEVERE PAIN (7-10) 01/05/25 02:30 01/12/25 02:29 DC Multivitamins Therapeutic (Multivitamin Tablet) 1 tab DAILY PO 01/07/25 10:30 02/06/25 10:29 01/19/25 09:43 1 TAB Nafcillin Sodium (Nafcillin 2gm+ NS 100ml) 2 gm Q6H6 IV 01/17/25 18:00 01/27/25 17:59 01/19/25 12:48 2 GM Nicotine (Nicoderm) 21 mg DAILY TD 01/05/25 09:00 02/04/25 08:59 01/19/25 09:47 21 MG Nitroglycerin (Nitrostat) 0.4 mg AD PRN SL CHEST PAIN 01/05/25 02:30 02/04/25 02:29 Nystatin (NYSTatin 362781 UNIT/ML 5ML UDCUP) 100,000 UNITS 1 ML TO E... QID PO 01/18/25 09:00 02/17/25 08:59 01/19/25 16:57 5 ML Ondansetron HCl (zoFRAN 4MG INJ) 4 mg Q6H PRN IV NAUSEA/VOMITING 01/05/25 02:30 02/04/25 02:29 Pantoprazole Sodium (PROTonix 40MG TAB) 40 mg DAILY PO 01/05/25 09:00 02/04/25 08:59 01/19/25 09:54 40 MG Pharmacy Profile Note (Pharmacy Communication) 1 each ONCE MISC 01/16/25 14:30 01/16/25 15:12 DC Pharmacy Profile Note (Pharmacy Communication) 1 each PROTOCOL PRN MISC ETOH Withdrawal Score changes 01/05/25 02:30 01/12/25 02:29 DC Piperacillin Sod/ Tazobactam Sod (Zosyn 3.375gm+NS 50ml) 3.375 gm Q12H IV 01/05/25 02:30 01/07/25 13:24 DC 01/07/25 02:45 3.375 GM Potassium Phosphate 250 ml @ 42 mls/hr PROTOCOL PRN IV PROTOCOL 01/05/25 10:00 02/04/25 09:59 Potassium Chloride 100 ml @ 100 mls/hr AD PRN IV POTASSIUM PROTOCOL 01/05/25 02:30 01/07/25 10:12 DC Potassium Chloride 100 ml @ 100 mls/hr AD PRN IV POTASSIUM PROTOCOL 01/07/25 10:30 02/06/25 10:29 01/09/25 06:26 100 MLS/HR Potassium Chloride (K-Dur 10meq Sr Tab) 10 meq AD PRN PO POTASSIUM PROTOCOL 01/06/25 09:30 02/04/25 02:29 01/08/25 23:35 10 MEQ Potassium Chloride (K-Dur/Klor-Con 20meq) 10 meq AD PRN PO POTASSIUM PROTOCOL 01/05/25 02:30 01/06/25 09:12 DC 01/05/25 22:15 10 MEQ Potassium Chloride (K-Dur/Klor-Con 20meq) 10 meq AD PRN PO POTASSIUM PROTOCOL 01/07/25 10:30 01/07/25 10:12 DC Potassium Chloride (KCl 10% Elixir 20meq/15ml) 10 meq AD PRN PO POTASSIUM PROTOCOL 01/05/25 02:30 01/07/25 10:12 DC 01/06/25 17:16 10 MEQ Potassium Chloride (KCl 10% Elixir 20meq/15ml) 10 meq AD PRN PO POTASSIUM PROTOCOL 01/07/25 10:30 02/06/25 10:29 01/08/25 15:28 10 MEQ Sodium Bicarbonate (Sodium Bicarbonate) 1,300 mg BID PO 01/11/25 09:00 02/10/25 08:59 01/19/25 09:44 1,300 MG Sodium Chloride 1,000 ml @ 50 mls/hr Q20H IV 01/05/25 10:00 01/10/25 01:33 DC 01/09/25 05:56 50 MLS/HR Sodium Chloride 1,000 ml @ 75 mls/hr [id number] IV 01/11/25 01:00 01/11/25 13:45 DC 01/11/25 01:00 75 MLS/HR Triamcinolone Acetonide (Kenalog/ Aristocort) 1 APPLY TP BID BID TP 01/07/25 11:00 02/06/25 10:59 01/19/25 09:47 1 APPL Vancomycin HCl (Vancomycin Protocol) 1 each AD IV 01/07/25 12:30 01/07/25 12:40 DC DIAGNOSTICS / RADIOLOGY: [ ] ASSESSMENT: Severe sepsis, resolved POA Gram-positive bacteremia secondary to Staphylococcus aureus, POA Hypodense echogenic mobile vegetation to right coronary cusp leaflet on echocardiogram 01/05/2025 Left atrial appendage clot present. on DRAKE 01/11 non coronary cusp leaflet has vegetation that measures 1.8 x 1.1 cm. on DRAKE 01/11 Urinary tract infection, secondary to Klebsiella pneumoniae, POA Strep pharyngitis, POA ITP, POA Leukocytosis, POA Hyperlactatemia, POA Acute kidney injury, POA Hypokalemia, POA Hyponatremia, POA Hypomagnesemia, POA POA New onset Uncontrolled Diabetes mellitius type2, POA Elevated troponin, POA Cocaine abuse, POA Alcohol abuse, POA Tobacco dependence, POA Significant proteinuria, POA Diabetic nephropathy, POA Gallstones, POA Fidelina esophagitis on EGD 01/11 PLAN: -patient remains admitted to the medical floor. -continue the patient on broad-spectrum IV antibiotics -results of DRAKE reviewed, Left atrial appendage clot present. on DRAKE 01/11, aortic valve is trileaflet, opens well. Non coronary cusp leaflet has vegetation that measures 1.8 x 1.1 cm. on DRAKE 01/11 -continue heparin drip. Patient already evaluated by Cardiothoracic surgeon, continue medical management, we will re-evaluate possibility of aortic valve replacement in the near future. 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 Continue to follow Hematology input and recommendation -renal function slightly improved today, patient evaluated by creative designer, the patient with significant proteinuria on UA consistent with diabetic nephropathy. No acute need for any form of renal replacement therapy. -blood culture positive for Staphylococcus aureus. Urine culture positive for Klebsiella pneumoniae. Continue broad-spectrum IV antibiotics, continue to follow ID input recommendation. -case discussed with case management, patient to complete course of IV antibiotics likely during this hospitalization as the patient is uninsured. Disposition: Pending improvement in clinical condition. All questions answered time spent: > 35 min ARVIND NOLAND MD Jan 19, 2025 18:21
[2025-01-19 20:00] VITALS: BP 126/68; PULSE 80; RESP 18; TEMP 98.1
[2025-01-19 23:57] VITALS: BP 129/65; PULSE 74; RESP 18; TEMP 97.9
[2025-01-20 04:00] VITALS: BP 115/63; PULSE 69; RESP 18; TEMP 97.9
[2025-01-20 04:37] LABS: BASOPHILS # (AUTO) 0.01 K/uL (0.00-0.20); BASOPHILS % (AUTO) 0.1 % (0.0-5.0); EOSINOPHILS # (AUTO) 0.04 K/uL (0.00-0.70); EOSINOPHILS % (AUTO) 0.4 % (0.0-8.0); HEMATOCRIT 24.9 % (42-54); IMMATURE GRANULOCYTE ABSOLUTE 0.08 K/uL (0-1); LYMPHOCYTES # (AUTO) 2.1 K/uL (1.0-4.8); LYMPHOCYTES % (AUTO) 19.6 % (21.0-51.0); MEAN CORPUSCULAR HEMOGLOBIN 32.6 pg (27.0-33.0); MEAN CORPUSCULAR HGB CONC 34.1 g/dL (32.0-36.0); MEAN CORPUSCULAR VOLUME 95.4 fL (79-99); MONOCYTES # (AUTO) 0.8 K/uL (0.1-1.0); MONOCYTES % (AUTO) 7.5 % (3.0-13.0); NEUTROPHILS # (AUTO) 7.7 K/uL (1.8-7.7); NEUTROPHILS % (AUTO) 71.7 % (40.0-77.0); PLATELET COUNT (AUTO) 168 K/uL (130-400); RED BLOOD CELL COUNT(AUTO) 2.61 MIL/uL (4.50-6.20); WHITE BLOOD COUNT (AUTO) 10.7 K/uL (4.8-10.8)
[2025-01-20 04:58] LABS: CREATININE 1.1 mg/dL (0.5-1.3); GENTAMICIN,TROUGH 0.9 mcg/mL (0.0-2.0); POTASSIUM 3.9 mmol/L (3.5-5.1)
--- NOTE | 2025-01-20 07:16 | PN ---
[facility] CARDIOLOGY PROGRESS NOTE Date Patient Seen: Jan 20, 2025 Time of Visit: 07:16 Interval History: [No events overnight. Physical Examination: GENERAL: [No acute distress.] HEAD: [Normal with no signs of head trauma.] EYES: [PERRLA, EOMI, conjunctiva and sclera normal.] ENT: [Hearing grossly intact, normal oropharynx.] NECK: [Supple without JVD. There is no tenderness, lymphadenopathy, or masses. No thyromegaly. Normal carotid upstrokes without bruits.] LUNGS: [Clear breath sounds bilaterally. There are right basilar rales one third of the way up the chest. No wheezes, or rhonchi.] HEART: [Normal rate and rhythm. Normal S1 and S2 without mumurs, gallop or rub.] VASC: [Peripheral pulses +2 bilaterally.] ABD: [Bowel sounds normal, soft, nontender, no masses, no organomegaly. No audible bruits.] : [Not examined] LYMPH: [No lymphadenopathy noted.] EXT: [No clubbing, cyanosis or edema.] SKIN: [No rashes or lesions noted.] NEURO: [Awake, alert, and oriented x3. No focal sensory or strength deficits noted.] Laboratory: [ ] Hematology Labs: Test 01/20/25 04:21 Range/Units White Blood Count 10.7 4.8-10.8 K/uL Red Blood Count 2.61 L 4.50-6.20 MIL/uL Hemoglobin 8.5 L 14.0-18.0 g/dL Hematocrit 24.9 L 42-54 % Mean Corpuscular Volume 95.4 79-99 fL Mean Corpuscular Hemoglobin 32.6 27.0-33.0 pg Mean Corpuscular Hemoglobin Concent 34.1 32.0-36.0 g/dL Red Cell Distribution Width 13.0 11.0-15.5 % Platelet Count 168 130-400 K/uL Mean Platelet Volume 11.0 H 7.5-10.5 fL Immature Granulocyte % (Auto) 0.7 0-1 % Neutrophils (%) (Auto) 71.7 40.0-77.0 % Lymphocytes (%) (Auto) 19.6 L 21.0-51.0 % Monocytes (%) (Auto) 7.5 3.0-13.0 % Eosinophils (%) (Auto) 0.4 0.0-8.0 % Basophils (%) (Auto) 0.1 0.0-5.0 % Neutrophils # (Auto) 7.7 1.8-7.7 K/uL Lymphocytes # (Auto) 2.1 1.0-4.8 K/uL Monocytes # (Auto) 0.8 0.1-1.0 K/uL Eosinophils # (Auto) 0.04 0.00-0.70 K/uL Basophils # (Auto) 0.01 0.00-0.20 K/uL Absolute Immature Granulocyte (auto 0.08 0-1 K/uL Nucleated Red Blood Cells 0.0 0.0-0.19 % Chemistry Labs: Test 01/20/25 04:58 01/20/25 04:21 Range/Units Whole Blood Glucose 158 H 70-110 MG/DL Sodium Level 137 136-145 mmol/L Potassium Level 3.9 3.5-5.1 mmol/L Chloride Level 107 101-111 mmol/L Carbon Dioxide Level 23 21-32 mmol/L Blood Urea Nitrogen 22 H 7-18 mg/dL Creatinine 1.1 0.5-1.3 mg/dL Glomerular Filtration Rate Calc 85 >90 mL/min Random Glucose 163 H 70-105 mg/dL Total Calcium 7.6 L 8.5-10.1 mg/dL Coagulation Labs: Test 01/18/25 13:18 Range/Units Activated Partial Thromboplast Time 47.3 #H 26.3-35.5 SEC Diagnostics / Radiology: [Copy/Paste Echos/Imaging Report here] Impression and Plan: [ Aortic valve endocarditis with mobile vegetation in the right coronary cusp of the aortic valve by 2D echocardiogram 01/05/2025 and confirmed by DRAKE 01/11: Staph aureus in 2/2 sets of blood cultures 01/05/2025: -Infectious Disease has adjusted antibiotic therapy -MSSA bacteremia on repeat blood cultures -Aortic valve vegetation measuring 1.1 cm, consulted CV surgery, pending possible AVR. Patient is high risk given advanced liver disease and thrombocyto penia -DRAKE on 01/11/2025 with LVEF of 60-65%, Left atrial appendage clot present, Aortic valve is trileaflet and open well. Non coronary cusp leaflet has vegetation that measures 1.81cm x 1.17cm. ID abx for MSSA for 6 weeks and repeat DRAKE at that time -blood cultures negative for 48 hours as of 01/14/2025 KARINA thrombus --Started on Heparin gtt, will transition to oral anticoagulation once no surgical interventions are performed Thrombocytopenia with platelet count falling to 21,000 on 01/05/2025, now improved -Dr. 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
--- NOTE | 2025-01-20 07:40 | PN ---
GASTROENTEROLOGY PROGRESS NOTE Date of Visit: Jan 20, 2025 Time of Visit: 07:40 Events / Notes: No acute events overnight. Patient had EGD revealing LA Grade B esophagitis. Denies fever, chills, abdominal pain, N/V, hematemesis, bloating, constipation, diarrhea, melena or hematochezia. Hgb trended down slightly today. No overt GI bleeding. Review of Systems: CONSTITUTIONAL: No malaise or change in sensation of wellbeing. ENMT: No rhinorrhea, otorrhea, sinus pain, ear ache. CARDIOVASCULAR: No angina, palpitations, orthopnea or paroxysmal dyspnea. RESPIRATORY: No SOB. GASTROINTESTINAL: No abdominal pain, nausea, vomiting, diarrhea, hematemesis, melena or change in the patient's habitual bowel movements consistency/number. GENITOURINARY: No dysuria, hematuria or change in bladder continence. MUSCULOSKELETAL: No new muscle pain or decrease in muscular strength. No new joint swelling, redness or tenderness. SKIN: No new rash. Physical Exam: GEN: Awake, alert, oriented in person, time and place, and in no acute distress. HEENT: No sinus tenderness. Tympanic membranes were not examined. No rhinorrhea. Oral pharyngeal mucosa is pink, moist and within normal limits. Neck is supple with no cervical lymphadenopathy, thyromegaly or JVD. CHEST: Inspection, palpation and percussion of the chest were unremarkable. Lung auscultation revealed normal breath sounds bilaterally. CARDIAC: PMI is within normal limits. Heart sounds are regular. Normal S1, S2. No gallop or murmur. ABD: Soft, non-tender and not distended. No peritoneal signs on palpation. No organomegaly. Normal bowel sounds. EXT: No cyanosis or clubbing. No edema. SKIN: Intact. No rashes. JOINTS: No evidence of synovitis or acute arthritis. NEURO: Alert and oriented to name, place and person. Cranial nerve examination is unremarkable. No focal motor deficits. Normal speech. Gait is normal. Strength is normal. Vital Signs (last 8hr) Date Time Temp Pulse Resp B/P (MAP) Pulse Ox O2 Delivery O2 Flow Rate FiO2 01/20/25 04:00 97.9 69 18 115/63 98 Room Air 01/19/25 23:57 97.9 74 18 129/65 100 Room Air Laboratory: [ ] Laboratory: Test 01/20/25 04:58 01/20/25 04:21 01/19/25 16:35 01/18/25 13:18 Range/Units Whole Blood Glucose 158 H 70-110 MG/DL White Blood Count 10.7 4.8-10.8 K/uL Red Blood Count 2.61 L 4.50-6.20 MIL/uL Hemoglobin 8.5 L 14.0-18.0 g/dL Hematocrit 24.9 L 42-54 % Mean Corpuscular Volume 95.4 79-99 fL Mean Corpuscular Hemoglobin 32.6 27.0-33.0 pg Mean Corpuscular Hemoglobin Concent 34.1 32.0-36.0 g/dL Red Cell Distribution Width 13.0 11.0-15.5 % Platelet Count 168 130-400 K/uL Mean Platelet Volume 11.0 H 7.5-10.5 fL Immature Granulocyte % (Auto) 0.7 0-1 % Neutrophils (%) (Auto) 71.7 40.0-77.0 % Lymphocytes (%) (Auto) 19.6 L 21.0-51.0 % Monocytes (%) (Auto) 7.5 3.0-13.0 % Eosinophils (%) (Auto) 0.4 0.0-8.0 % Basophils (%) (Auto) 0.1 0.0-5.0 % Neutrophils # (Auto) 7.7 1.8-7.7 K/uL Lymphocytes # (Auto) 2.1 1.0-4.8 K/uL Monocytes # (Auto) 0.8 0.1-1.0 K/uL Eosinophils # (Auto) 0.04 0.00-0.70 K/uL Basophils # (Auto) 0.01 0.00-0.20 K/uL Absolute Immature Granulocyte (auto 0.08 0-1 K/uL Nucleated Red Blood Cells 0.0 0.0-0.19 % Sodium Level 137 136-145 mmol/L Potassium Level 3.9 3.5-5.1 mmol/L Chloride Level 107 101-111 mmol/L Carbon Dioxide Level 23 21-32 mmol/L Blood Urea Nitrogen 22 H 7-18 mg/dL Creatinine 1.1 0.5-1.3 mg/dL Glomerular Filtration Rate Calc 85 >90 mL/min Random Glucose 163 H 70-105 mg/dL Total Calcium 7.6 L 8.5-10.1 mg/dL Gentamicin Level Trough 0.9 # 0.0-2.0 mcg/mL Gentamicin Level Peak 2.8 #L 4.0-8.0 mcg/mL Activated Partial Thromboplast Time 47.3 #H 26.3-35.5 SEC Current Medications Medications (Trade) Dose Ordered Sig/Asya Route PRN Reason Start Time Stop Time Status Last Admin Dose Admin Acetaminophen (TYLenol 325MG TAB) 650 mg Q6H PRN PO MILD PAIN (1-3) 01/16/25 17:30 02/15/25 17:29 Acetaminophen (TYLenol 325MG TAB) 650 mg Q6H PRN PO TEMPERATURE GREATER THAN 101.5 01/05/25 02:30 02/04/25 02:29 01/16/25 17:26 650 MG Apixaban (EliquIS) 5 mg BID PO 01/25/25 21:00 02/24/25 20:59 Apixaban (EliquIS) 10 mg BID PO 01/18/25 21:00 01/18/25 13:52 DC Apixaban (EliquIS) 10 mg BID PO 01/18/25 21:00 01/25/25 20:59 01/19/25 20:06 10 MG Aspirin (Aspirin 81mg Chew Tab) 81 mg DAILY PO 01/05/25 09:00 01/05/25 09:53 DC Aspirin (Aspirin 81mg Ec Tab) 81 mg DAILY PO 01/16/25 09:00 02/15/25 08:59 01/19/25 09:44 81 MG Benzocaine (Cepacol Sore Throat Lozenge) 1 each Q4H PRN MM SORE THROAT 01/05/25 02:30 02/04/25 02:29 Calcium Gluconate 1 gm/Sodium Chloride 100 ml @ 0 mls/hr AD PRN IV Serum Calcium Correction 01/08/25 02:30 02/07/25 02:29 01/08/25 23:32 90 MLS/HR Cefazolin Sodium (Ancef) 2 gm Q12H IVPB 01/07/25 13:30 01/16/25 14:43 DC 01/16/25 01:12 2 GM Cefazolin Sodium (Ancef) 2 gm Q8H IVPB 01/16/25 21:30 01/17/25 13:22 DC 01/17/25 05:07 2 GM Chlordiazepoxide HCl (LIBrium 25 MG CAP) 25 mg Q8H PO 01/05/25 02:30 01/11/25 11:39 DC 01/10/25 22:23 25 MG Chlordiazepoxide HCl (LIBrium 25 MG CAP) 25 mg Q8H PRN PO WITHDRAWAL 01/11/25 12:00 01/12/25 02:29 DC Dexamethasone Sodium Phosphate 20 mg/Sodium Chloride 52 ml @ 100 mls/hr DAILY IV 01/09/25 09:00 02/08/25 08:59 01/19/25 09:42 100 MLS/HR Dexamethasone Sodium Phosphate 40 mg/Sodium Chloride 50 ml @ 100 mls/hr DAILY IV 01/06/25 14:00 01/08/25 12:16 DC 01/08/25 09:34 100 MLS/HR Dextrose (D50w) 50 ml AD PRN IV HYPOGLYCEMIA PROTOCOL 01/05/25 10:00 02/04/25 09:59 Doxycycline Hyclate 250 ml @ 125 mls/hr Q12H IV 01/05/25 10:00 01/06/25 21:05 DC 01/06/25 09:30 125 MLS/HR Doxycycline Hyclate 250 ml @ 125 mls/hr Q12H IV 01/06/25 21:30 01/16/25 14:23 DC 01/16/25 10:13 125 MLS/HR Fluconazole (DiFLUCan 100 mg TAB) 200 mg DAILY PO 01/12/25 09:00 02/11/25 08:59 01/19/25 09:43 200 MG Folic Acid (FOLic ACID 1 MG TABLET) 1 mg DAILY PO 01/07/25 10:30 02/06/25 10:29 01/19/25 09:44 1 MG Furosemide (LASix 20MG VIAL) 20 mg Q12H IV 01/07/25 16:00 01/11/25 00:56 DC 01/10/25 19:40 20 MG Gentamicin Sulfate 150 mg/ Sodium Chloride 100 ml @ 100 mls/hr Q12H IV 01/20/25 16:00 02/03/25 15:59 Gentamicin Sulfate/Sodium Chloride 100 ml @ 200 mls/hr Q12H IV 01/16/25 15:30 01/18/25 03:39 DC 01/17/25 16:00 200 MLS/HR Gentamicin Sulfate/Sodium Chloride 100 ml @ 200 mls/hr Q12H IV 01/18/25 04:00 01/20/25 06:41 DC 01/20/25 05:38 200 MLS/HR Glucagon (Glucagon 1mg Kit) 1 mg AD PRN IM HYPOGLYCEMIA PROTOCOL 01/05/25 10:00 02/04/25 09:59 Heparin Sodium/ Dextrose 250 ml @ 0 mls/hr PROTOCOL IV 01/11/25 14:30 01/18/25 13:28 DC 01/17/25 16:09 13.99 MLS/HR Hydralazine HCl (APRESOLine 20MG INJ) 5 mg Q6H PRN IV For:SBP above 160;DBP above 90 01/05/25 14:30 02/04/25 14:29 01/10/25 22:24 5 MG Hydralazine HCl (APRESOLine 20MG INJ) 10 mg Q6H PRN IV For:SBP above 160;DBP above 90 01/05/25 02:30 01/05/25 09:53 DC Insulin Glargine (LANtus 100 UNITS/ML 10 ML VIAL) 15 units Q12H SQ 01/07/25 21:30 01/09/25 23:18 DC 01/09/25 13:10 15 UNITS Insulin Glargine (LANtus 100 UNITS/ML 10 ML VIAL) 20 units DAILY SQ 01/14/25 09:00 02/13/25 08:59 01/19/25 09:53 20 UNITS Insulin Glargine (LANtus 100 UNITS/ML 10 ML VIAL) 20 units HS SQ 01/06/25 21:00 01/06/25 21:05 DC Insulin Glargine (LANtus 100 UNITS/ML 10 ML VIAL) 20 units HS SQ 01/06/25 21:30 01/07/25 10:24 DC 01/06/25 21:33 20 UNITS Insulin Glargine (LANtus 100 UNITS/ML 10 ML VIAL) 20 units Q12H SQ 01/10/25 09:30 01/10/25 12:58 DC Insulin Glargine (LANtus 100 UNITS/ML 10 ML VIAL) 25 units Q12H SQ 01/10/25 21:30 01/11/25 00:50 DC 01/10/25 22:19 25 UNITS Insulin Glargine (LANtus 100 UNITS/ML 10 ML VIAL) 30 units DAILY SQ 01/12/25 09:00 01/14/25 07:03 DC 01/12/25 11:25 30 UNITS Insulin Glargine (LANtus 100 UNITS/ML 10 ML VIAL) 30 units Q12H SQ 01/11/25 09:30 01/11/25 20:13 DC 01/11/25 10:50 30 UNITS Insulin Human Regular (humuLIN R 100 UNIT/ML 3ML) 5 unit TIDAC SQ 01/14/25 07:30 02/13/25 07:29 01/20/25 06:28 5 UNIT Insulin Human Regular (humuLIN R 100 UNIT/ML 3ML) 8 unit TIDAC SQ 01/11/25 07:30 01/14/25 07:03 DC 01/13/25 19:47 8 UNIT Insulin Human Regular (humuLIN R 100 UNIT/ML 3ML) INSULIN SLIDING SCAL... ACHS SQ 01/18/25 21:00 02/17/25 20:59 01/19/25 20:11 2 UNIT Insulin Human Regular (humuLIN R 100 UNIT/ML 3ML) INSULIN SLIDING SCAL... ACHS SQ 01/05/25 07:30 01/05/25 09:57 DC 01/05/25 07:59 16 UNIT Insulin Human Regular (humuLIN R 100 UNIT/ML 3ML) INSULIN SLIDING SCAL... ACHS SQ 01/05/25 11:30 01/06/25 16:43 DC 01/06/25 11:50 8 UNIT Insulin Human Regular (humuLIN R 100 UNIT/ML 3ML) INSULIN SLIDING SCAL... ACHS SQ 01/06/25 17:00 01/07/25 13:32 DC 01/06/25 17:17 16 UNIT Insulin Human Regular (humuLIN R 100 UNIT/ML 3ML) INSULIN SLIDING SCAL... Q4H SQ 01/11/25 02:00 01/11/25 23:59 DC 01/11/25 20:49 6 UNIT Insulin Human Regular (humuLIN R 100 UNIT/ML 3ML) INSULIN SLIDING SCAL... Q4H SQ 01/11/25 23:59 01/18/25 19:33 DC 01/18/25 16:59 4 UNIT Insulin Human Regular (humuLIN R 100 UNIT/ML 3ML) INSULIN SLIDING SCAL... Q6H6 SQ 01/10/25 18:00 01/11/25 00:50 DC 01/11/25 00:45 10 UNIT Insulin Human Regular 100 unit/ Sodium Chloride 100 ml @ 0 mls/hr AD PRN IV HYPERGLYCEMIA PROTOCOL 01/06/25 19:30 01/10/25 06:00 DC 01/09/25 19:10 16 MLS/HR Lactated Ringer's 1,000 ml @ 100 mls/hr Q10H IV 01/05/25 02:30 01/05/25 09:51 DC 01/05/25 02:30 100 MLS/HR Lactated Ringer's 1,000 ml @ 125 mls/hr Q8H IV 01/10/25 01:30 01/10/25 19:40 DC 01/10/25 13:07 125 MLS/HR Lactobacillus Rhamnosus ([facility] [employer]) 1 each DAILY PO 01/12/25 09:00 02/11/25 08:59 01/19/25 09:46 1 EACH Lorazepam (AtiVAN) 1 mg Q4H PRN IVP ALCOHOL WITHDRAWAL PROTOCOL 01/05/25 02:30 01/12/25 02:29 DC Magnesium Sulfate 50 ml @ 0 mls/hr PROTOCOL PRN IV h 01/05/25 02:30 02/04/25 02:29 01/18/25 08:34 25 MLS/HR Morphine Sulfate (morPHINE 2MG SYG) 2 mg Q4H PRN IVP SEVERE PAIN (7-10) 01/05/25 02:30 01/12/25 02:29 DC Multivitamins Therapeutic (Multivitamin Tablet) 1 tab DAILY PO 01/07/25 10:30 02/06/25 10:29 01/19/25 09:43 1 TAB Nafcillin Sodium (Nafcillin 2gm+ NS 100ml) 2 gm Q6H6 IV 01/17/25 18:00 01/27/25 17:59 01/20/25 05:38 2 GM Nicotine (Nicoderm) 21 mg DAILY TD 01/05/25 09:00 02/04/25 08:59 01/19/25 09:47 21 MG Nitroglycerin (Nitrostat) 0.4 mg AD PRN SL CHEST PAIN 01/05/25 02:30 02/04/25 02:29 Nystatin (NYSTatin 604588 UNIT/ML 5ML UDCUP) 100,000 UNITS 1 ML TO E... QID PO 01/18/25 09:00 02/17/25 08:59 01/19/25 20:06 5 ML Ondansetron HCl (zoFRAN 4MG INJ) 4 mg Q6H PRN IV NAUSEA/VOMITING 01/05/25 02:30 02/04/25 02:29 Pantoprazole Sodium (PROTonix 40MG TAB) 40 mg DAILY PO 01/05/25 09:00 02/04/25 08:59 01/19/25 09:54 40 MG Pharmacy Profile Note (Pharmacy Communication) 1 each ONCE MISC 01/16/25 14:30 01/16/25 15:12 DC Pharmacy Profile Note (Pharmacy Communication) 1 each PROTOCOL PRN MISC ETOH Withdrawal Score changes 01/05/25 02:30 01/12/25 02:29 DC Piperacillin Sod/ Tazobactam Sod (Zosyn 3.375gm+NS 50ml) 3.375 gm Q12H IV 01/05/25 02:30 01/07/25 13:24 DC 01/07/25 02:45 3.375 GM Potassium Phosphate 250 ml @ 42 mls/hr PROTOCOL PRN IV PROTOCOL 01/05/25 10:00 02/04/25 09:59 Potassium Chloride 100 ml @ 100 mls/hr AD PRN IV POTASSIUM PROTOCOL 01/05/25 02:30 01/07/25 10:12 DC Potassium Chloride 100 ml @ 100 mls/hr AD PRN IV POTASSIUM PROTOCOL 01/07/25 10:30 02/06/25 10:29 01/09/25 06:26 100 MLS/HR Potassium Chloride (K-Dur 10meq Sr Tab) 10 meq AD PRN PO POTASSIUM PROTOCOL 01/06/25 09:30 02/04/25 02:29 01/08/25 23:35 10 MEQ Potassium Chloride (K-Dur/Klor-Con 20meq) 10 meq AD PRN PO POTASSIUM PROTOCOL 01/05/25 02:30 01/06/25 09:12 DC 01/05/25 22:15 10 MEQ Potassium Chloride (K-Dur/Klor-Con 20meq) 10 meq AD PRN PO POTASSIUM PROTOCOL 01/07/25 10:30 01/07/25 10:12 DC Potassium Chloride (KCl 10% Elixir 20meq/15ml) 10 meq AD PRN PO POTASSIUM PROTOCOL 01/05/25 02:30 01/07/25 10:12 DC 01/06/25 17:16 10 MEQ Potassium Chloride (KCl 10% Elixir 20meq/15ml) 10 meq AD PRN PO POTASSIUM PROTOCOL 01/07/25 10:30 02/06/25 10:29 01/08/25 15:28 10 MEQ Sodium Bicarbonate (Sodium Bicarbonate) 1,300 mg BID PO 01/11/25 09:00 02/10/25 08:59 01/19/25 20:06 1,300 MG Sodium Chloride 1,000 ml @ 50 mls/hr Q20H IV 01/05/25 10:00 01/10/25 01:33 DC 01/09/25 05:56 50 MLS/HR Sodium Chloride 1,000 ml @ 75 mls/hr [id number] IV 01/11/25 01:00 01/11/25 13:45 DC 01/11/25 01:00 75 MLS/HR Triamcinolone Acetonide (Kenalog/ Aristocort) 1 APPLY TP BID BID TP 01/07/25 11:00 02/06/25 10:59 01/19/25 20:08 1 APPL Vancomycin HCl (Vancomycin Protocol) 1 each AD IV 01/07/25 12:30 01/07/25 12:40 DC Diagnostics / Radiology: [COPY/PASTE HERE IF NO REPORTS PLEASE DELETE SECTION] Assessment: GERD esophagitis Decompensated cirrhosis Thrombocytopenia Abnormal troponin Alcohol abuse Plan: Follow cardio recommendations Will obtain liver serologies to r/o other liver pathology Please contact our service if the patient has significant bleeding such as hematemesis and we can proceed sooner with the EGD Thanks you for allowing us to participate in the care of this patient! HILDA MUIR [employer] Jan 20, 2025 07:40
[2025-01-20 08:00] VITALS: BP 110/64; PULSE 73; RESP 16; TEMP 98.3
--- NOTE | 2025-01-20 09:15 | PN ---
SUBJECTIVE: A 44-year-old male with history of diabetes mellitus and hypertension. The patient initially admitted to the hospital and found to have endocarditis. The patient remains on the antibiotics. He has had acute on chronic renal failure in the hospital. Creatinine has improved and he is being seen as a followup visit for all of the above. REVIEW OF SYSTEMS: GENERAL: The patient is feeling weak and tired. HEENT: No change in vision. No change in hearing. CARDIOVASCULAR: There is no current chest pain or palpitations. PULMONARY: No shortness of breath. GASTROINTESTINAL: He is tolerating a diet. MUSCULOSKELETAL: Complains of weakness. PHYSICAL EXAMINATION: VITAL SIGNS: Blood pressure 110/64, pulse in the 70s. GENERAL: He is a chronically ill male, much older than appearing. HEENT: Head is atraumatic. Pupils equal, roving to light. Oropharynx is without exudate. Nares clear. NECK: There is no JVP. There is no thyromegaly, no mass. CARDIOVASCULAR: Regular. There is no S3, S4 gallop. LUNGS: Coarse with equal thoracic movement. ABDOMEN: Soft, nondistended, nontender. EXTREMITIES: Reveal no clubbing, no cyanosis. NEUROLOGIC: He is awake. He is alert. LABORATORY DATA: Hemoglobin 8.5, hematocrit 24. Sodium 137, potassium 3.9, BUN 22, creatinine is 1. IMPRESSION: * Acute on chronic renal failure. * Endocarditis. * Diabetes mellitus. * Hypertension. PLAN: The patient with significant renal dysfunction. The patient's creatinine has somewhat improved. He remains on the antibiotics. The patient now with significant anemia. We will obtain iron levels in the morning. We will continue to follow closely. The patient with multiple questions, all of which were answered. TID: [id number] RECEIPT: [id number]
[2025-01-20] MEDS: acetaMINOPHEN 325 MG TAB PO PRN (10:42)
[2025-01-20 12:00] VITALS: BP 101/63; PULSE 97; RESP 17; TEMP 97.4
--- NOTE | 2025-01-20 14:03 | PN ---
INFECTIOUS DISEASE PROGRESS NOTE Date of Service: Jan 20, 2025 SUBJECTIVE: This is a 44-year-old male patient who was admitted for chief complaint of weakness and status post fall at home. A Urine culture collected on admission came back positive for Klebsiella pneumoniae and the blood cultures results came back positive for Methicillin sensitive Staphylococcus aureus 2 of 2 sets and the reason for this consult. A 2D echo done on admission showed Aortic valve endocarditis and DRAKE done on 01/11/2025 with findings of aortic valve vegetation and Left atrial appendage clot. Patient was seen and examined at bedside in room 412. Patient is awake, alert and oriented x3. Patient is status post DRAKE on 01/11/2025 with findings of aortic valve vegetation and left atrial appendage clot. Continues on Eliquis. Blood cultures positive for MSSA repeatedly. Patient is afebrile this morning, temperature is 98.1 and a WBC of 10.2. Will c ontinue on Nafcillin IV, Gentamicin per pharmacy renal dosing and fluconazole. Patient participating well with physical therapy. No reports of dyspnea. Will continue to follow patient's care. PHYSICAL EXAM EYES: Anicteric. Pupils equal and reactive. HENT: No oral thrush seen, moist Oral mucosa. NECK: Supple, no JVD or thyromegaly. LUNGS: Good air entry. No rales, no rhonchi. CARDIOVASCULAR: S1, S2 regular. No murmur heard. ABDOMEN: Obese but Soft. CENTRAL NERVOUS SYSTEM: Awake, alert, oriented x 3. SKIN: No rashes, no swelling. LYMPHATICS: No peripheral lymphadenopathy MUSCULOSKELETAL: No joint swelling, erythema or tenderness. Weakness. EXTREMITIES: No cyanosis or clubbing. Edematous. BACK: No deformity, no pressure ulcer. GENITOURINARY: No dysuria or hematuria. Vital Sign (Last 12 Hours) 01/20/25 01/20/25 01/20/25 04:00 08:00 12:00 Temp 97.9 98.2 97.3 Pulse 69 73 97 Resp 18 16 17 B/P (MAP) 115/63 110/64 101/63 Pulse Ox 98 96 99 O2 Delivery Room Air Room Air Room Air O2 Flow Rate 0.0 0.0 Intake & Output (last 24hrs) 01/19/25 01/19/25 01/20/25 15:00 23:00 07:00 Intake Total 700.0 ml Balance 700.0 ml LABS: Laboratory: Test 01/20/25 12:40 01/20/25 04:21 01/19/25 16:35 Range/Units Whole Blood Glucose 143 H 70-110 MG/DL White Blood Count 10.7 4.8-10.8 K/uL Red Blood Count 2.61 L 4.50-6.20 MIL/uL Hemoglobin 8.5 L 14.0-18.0 g/dL Hematocrit 24.9 L 42-54 % Mean Corpuscular Volume 95.4 79-99 fL Mean Corpuscular Hemoglobin 32.6 27.0-33.0 pg Mean Corpuscular Hemoglobin Concent 34.1 32.0-36.0 g/dL Red Cell Distribution Width 13.0 11.0-15.5 % Platelet Count 168 130-400 K/uL Mean Platelet Volume 11.0 H 7.5-10.5 fL Immature Granulocyte % (Auto) 0.7 0-1 % Neutrophils (%) (Auto) 71.7 40.0-77.0 % Lymphocytes (%) (Auto) 19.6 L 21.0-51.0 % Monocytes (%) (Auto) 7.5 3.0-13.0 % Eosinophils (%) (Auto) 0.4 0.0-8.0 % Basophils (%) (Auto) 0.1 0.0-5.0 % Neutrophils # (Auto) 7.7 1.8-7.7 K/uL Lymphocytes # (Auto) 2.1 1.0-4.8 K/uL Monocytes # (Auto) 0.8 0.1-1.0 K/uL Eosinophils # (Auto) 0.04 0.00-0.70 K/uL Basophils # (Auto) 0.01 0.00-0.20 K/uL Absolute Immature Granulocyte (auto 0.08 0-1 K/uL Nucleated Red Blood Cells 0.0 0.0-0.19 % Sodium Level 137 136-145 mmol/L Potassium Level 3.9 3.5-5.1 mmol/L Chloride Level 107 101-111 mmol/L Carbon Dioxide Level 23 21-32 mmol/L Blood Urea Nitrogen 22 H 7-18 mg/dL Creatinine 1.1 0.5-1.3 mg/dL Glomerular Filtration Rate Calc 85 >90 mL/min Random Glucose 163 H 70-105 mg/dL Total Calcium 7.6 L 8.5-10.1 mg/dL Gentamicin Level Trough 0.9 # 0.0-2.0 mcg/mL Gentamicin Level Peak 2.8 #L 4.0-8.0 mcg/mL ASSESSMENT: Methicillin-susceptible Staphylococcus aureus bacteremia status post DRAKE on 01/11/2025 with findings of aortic valve vegetation and Left atrial appendage clot. Aortic valve endocarditis on 2D echo. Urinary tract infection with Klebsiella pneumoniae. Chronic scalp folliculitis. Leukocytosis. Thrombocytopenia requiring platelet transfusion, resolving. Acute on chronic renal failure, resolving. Substance abuse, Cocaine and ETOH. Streptococcus viral infection. Uncontrolled diabetes mellitus. Debility. PLAN: Continue Nafcillin. Continue Gentamicin per pharmacy renal dosing. Patient will need 6 weeks of IV antibiotics. Will follow up on the repeat blood cultures. Currently on Eliquis. Avoid nephrotoxic medications. Continue GI prophylaxis. Assembly Detailer following patient. Continue monitoring glucose levels. Pending Physical therapy evaluation. This case was reviewed and discussed with my supervising physician and the above assessment and plan was formulated and agreed upon. ATTESTATION BY PHYSICIAN I have seen and examined the patient. I reviewed the documentation, medical decision making, and treatment plan as noted by the mid-level provider above. I agree with the findings and plan of care. JANUARY CARLSON MD, [facility] MA[facility] Jan 20, 2025 14:03
[2025-01-20 16:00] VITALS: BP 109/70; PULSE 75; RESP 16; TEMP 97.8
--- NOTE | 2025-01-20 17:23 | PN ---
[facility] PROGRESS NOTE Date of Service: Jan 20, 2025 Time of Service: 17:20 SUBJECTIVE: [ ] The patient has been seen and examined at bedside, no acute events overnight, the patient is comfortable, cooperating well, alert oriented x3, he is on a CIWA protocol, not combative. BP 123/70, rest of vital signs unremarkable. Patient received transfusion of 1 unit of platelet, platelet count improved to 27, per band salvager, likely due to splenomegaly. Echocardiogram reviewed, hypodense echogenic mobile vegetation to right coronary cusp leaflet, per cardiology once platelet count is greater than 50 1000 we will proceed with a a DRAKE. The pa tient also with a elevated blood sugar, continue insulin sliding scale, add insulin glargine 20 units subcutaneously at bedtime. Continue the patient on broad-spectrum IV antibiotics, continue to trend WBC in a.m.. 01/07 patient is seen and examined at bedside, case discussed with the RN, patient upgraded last night to the ICU to start insulin drip as blood glucose per sistently greater than 400. Patient started on dexamethasone IV by band salvager do to ITP. Platelet count slightly better today at 41. Upon my initial encounter with the patient admitted that he drinks more than 18 beers per day. He was started on CIWA protocol, however has remained hemodynamically stable, comfortable in bed, no signs of withdrawal, cooperating fine. Not agitated, not combative. Toxicology screen positive for cocaine. Sodium level slowly improvi ng, today 132. Serology positive for influenza type A. The patient with significant proteinuria consistent with diabetic nephropathy, creatinine slowly trending down, no need for renal replacement therapy per teacher kindergarten. Patient with blood culture positive for Staphylococcus aureus, with urine culture positive for Klebsiella pneumoniae. We will add vancomycin IV pharmacy to dose. We will request Infectious Disease consultation. Echocardiogram reviewed, hypodense echogenic mobile vegetation to right coronary cusp leaflet, per cardiology once platelet count is greater than 50 1000 we will proceed with a a DRAKE. CT abdomen with gallstones in the gallbladder. HIDA scan pending 01/08 patient seen at bedside, no acute events overnight. He continues on insulin drip with an anion gap of 14, we will continue until the gap is closed. P latelets 54, we will follow up with Cardiology on optimal timing for DRAKE. Continue with IV antibiotics, further care per critical Care. 2/10 patient seen at bedside, no acute events overnight. Anion gap is still open at 14, we will continue IV insulin. Platelets improved from 54 up to 71, CO2 decreased from 17 down to 15. Cardiology planning on DRAKE today, we will follow up postprocedure. Repeat blood cultures are positive for Gram-positive organisms which further supports underlying endocarditis. Continue with IV antibiotics, appreciate Infectious Disease recommendations. He has been afebrile, hemodynamically stable saturating well on room air. WBC increased from 12.8 up to 13.6, BUN decreased from 93 down to 90, creatinine decreased from 2.5 down to 2.3, remainder of his labs are relatively unremarkable. 01/10 Pt seen at bedside, no acute events overnight. Pt with anion gap of 14, CO2 still low at 16. Repeat lactic acid was ordered, elevated at 4.8, will bolus patient and continue with IV fluids. DRAKE was rescheduled to today, will follow up with results.WBC improved from 13.6 down to 11.7, Hgb decreased from 15.1 down to 12.4, platelets decreased from 71 down to 66, this substantial decrease in all cell lines suggests hemodilution, creatinine decreased from 2.2 down to 1.4, also likely falsely depressed. 01/11 Pt seen at bedside, no acute events overnight. Pending EGD to assess for esophageal varices and DRAKE today, will follow up post procedure. Yesterday repeat lactic acid was elevated at 4.8, the patient was bolused and it improved down to 1.3. He has been afebrile, hemodynamically stable, saturating well on room air. WBC increased from 11.7 up to 12.5, platelets improved from 66 up to 113, creatinine increased from 1.6 up to 1.8, CO2 improved from 17 up to 22 after patient was started on bicarb. Third set of blood cultures growing gram positive organisms 01/12 patient is seen and examined at bedside, case discussed with the RN, no acute events overnight, remains on broad-spectrum IV antibiotics, alert oriented x3, following commands. Patient underwent DRAKE 01/11, tolerated well, LVEF 60- 65%, no left ventricle thrombus noted. Right ventricle is severely dilated. Left atrial appendage clot present. No mass or thrombus in the left atrium. No mass or thrombus in the right atrium. Aortic valve is trileaflet, opens well, non coronary cusp leaflet has vegetation that measures 1.8 x 1.1 cm. No mitral valve vegetation, no tricuspid valve vegetation, no pulmonic valve vegetation. Finding discussed with the patient, all questions answered. 01/13 patient is seen and examined at bedside, case discussed with the RN, no acute events overnight, during my visit the patient comfortably in bed, hemodynamically stable, alert oriented x3, getting IV antibiotics, denies chest pain, no shortness a breath, no nausea, no vomiting. 01/14 patient is seen and examined at bedside, downgraded to the medical floor, case discussed with the RN, patient hemodynamically stable, alert oriented x3, on heparin drip, no chest pain, no shortness a breath, no nausea, no vomiting. 01/15 patient is seen and examined bedside, case discussed with the RN, no acute events overnight. Patient with blood culture positive for Staphylococcus aureus, with urine culture positive for Klebsiella pneumoniae. Patient underwent DRAKE 01/11, tolerated well, LVEF 60-65%, no left ventricle thrombus noted. Right ventricle is severely dilated. Left atrial appendage clot present. No mass or thrombus in the left atrium. No mass or thrombus in the right atrium. Aortic valve is trileaflet, opens well, non coronary cusp leaflet has vegetation that measures 1.8 x 1.1 cm. No mitral valve vegetation, no tricuspid valve vegetation, no pulmonic valve vegetation. Continue heparin drip. Patient evaluated by Cardiothoracic surgeon. Medical management recommended for now. Re-evaluate possibility of aortic valve replacement in the near future. 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 Continue to follow Hematology input and recommendation Discharge plan discussed with case management, patient is uninsured, probably will have to remain admitted until completion of IV antibiotic course. 01/16 Pt seen at bedside, no acute events overnight. Most recent blood cultures are no growth to date. CV surgery suggesting aortic valve replacement may be feasible if patient recent blood cultures no growth for another 5 days. If valve replacement will not be done, patient will need to complete full course of IV antibiotics before discharge as he is unfunded. Vitals and labs are relatively unremarkable 01/17 patient seen at bedside, no acute events overnight. Most recent blood cultures are growing Gram-positive organism, we will continue with IV antibiotics. Antibiotics have been adjusted by Infectious Disease, surgery will be held. 01/18 patient seen at bedside, no acute events overnight. Continue with broad- spectrum antibiotics, we will follow up with cardiovascular surgery regarding possible surgery once infection better controlled. Discussed case with band salvager who recommends heparin drip however patient we will need to be anticoagulated on discharge and given his own fundus status we will likely need to be started on warfarin. Vitals and labs relatively unremarkable. 01/19 patient seen at bedside, no acute events overnight. Continue with broad- spectrum antibiotics, we will follow up with cardiovascular surgery regarding possible surgery once infection better controlled. Patient started on eliquis. Hgb decreased from 9.6 down to 9.0, Vitals and labs otherwise relatively unremarkable. 01/20 patient seen at bedside, no acute events overnight. Continue with broad- spectrum antibiotics, we will follow up with cardiovascular surgery regarding possible surgery once infection better controlled. Patient started on eliquis. Hgb decreased from 9.0 down to 8.5, Vitals and labs otherwise relatively unremarkable. REVIEW OF SYSTEMS 12 point review of systems negative unless noted in HPI PHYSICAL EXAM GENERAL APPEARANCE: The patient is awake, alert, and oriented, in no acute cardiopulmonary distress. NEUROLOGICAL: Cranial nerves II-XII grossly intact. Motor is 5/5 in bilateral upper and lower extremities proximal to distal. No sensory deficits. HEENT: Face is symmetric. Pupils are equal and reactive. Extraocular movements are intact. NECK: Supple. No JVD. No thyromegaly. No submental, submandibular, pre- /postauricular, occipital or supraclavicular lymphadenopathy. CHEST: Normal chest expansion. No Telemetry. LUNGS: Absence of any rales, rhonchi or any wheezing. CARDIOVASCULAR: Regular. S1 and S2 normal. No appreciable rubs, murmurs or gallops. ABDOMEN: Soft, nontender, and nondistended. There is no rebound, voluntary guarding, or rigidity. : Deferred. No Ortega. EXTREMITIES: Non-edematous and not cyanotic. No clubbing. Good capillary refill. SKIN: No skin breakdown. Vital Signs (last 8hr) Date Time Temp Pulse Resp B/P (MAP) Pulse Ox O2 Delivery O2 Flow Rate FiO2 01/20/25 16:00 97.9 75 16 109/70 100 Room Air 0.0 01/20/25 12:00 97.3 97 17 101/63 99 Room Air 0.0 LABS: Laboratory: Test 01/20/25 16:21 01/20/25 04:21 01/19/25 16:35 Range/Units Whole Blood Glucose 181 H 70-110 MG/DL White Blood Count 10.7 4.8-10.8 K/uL Red Blood Count 2.61 L 4.50-6.20 MIL/uL Hemoglobin 8.5 L 14.0-18.0 g/dL Hematocrit 24.9 L 42-54 % Mean Corpuscular Volume 95.4 79-99 fL Mean Corpuscular Hemoglobin 32.6 27.0-33.0 pg Mean Corpuscular Hemoglobin Concent 34.1 32.0-36.0 g/dL Red Cell Distribution Width 13.0 11.0-15.5 % Platelet Count 168 130-400 K/uL Mean Platelet Volume 11.0 H 7.5-10.5 fL Immature Granulocyte % (Auto) 0.7 0-1 % Neutrophils (%) (Auto) 71.7 40.0-77.0 % Lymphocytes (%) (Auto) 19.6 L 21.0-51.0 % Monocytes (%) (Auto) 7.5 3.0-13.0 % Eosinophils (%) (Auto) 0.4 0.0-8.0 % Basophils (%) (Auto) 0.1 0.0-5.0 % Neutrophils # (Auto) 7.7 1.8-7.7 K/uL Lymphocytes # (Auto) 2.1 1.0-4.8 K/uL Monocytes # (Auto) 0.8 0.1-1.0 K/uL Eosinophils # (Auto) 0.04 0.00-0.70 K/uL Basophils # (Auto) 0.01 0.00-0.20 K/uL Absolute Immature Granulocyte (auto 0.08 0-1 K/uL Nucleated Red Blood Cells 0.0 0.0-0.19 % Sodium Level 137 136-145 mmol/L Potassium Level 3.9 3.5-5.1 mmol/L Chloride Level 107 101-111 mmol/L Carbon Dioxide Level 23 21-32 mmol/L Blood Urea Nitrogen 22 H 7-18 mg/dL Creatinine 1.1 0.5-1.3 mg/dL Glomerular Filtration Rate Calc 85 >90 mL/min Random Glucose 163 H 70-105 mg/dL Total Calcium 7.6 L 8.5-10.1 mg/dL Gentamicin Level Trough 0.9 # 0.0-2.0 mcg/mL Gentamicin Level Peak 2.8 #L 4.0-8.0 mcg/mL Current Medications Medications (Trade) Dose Ordered Sig/Asya Route PRN Reason Start Time Stop Time Status Last Admin Dose Admin Acetaminophen (TYLenol 325MG TAB) 650 mg Q6H PRN PO MILD PAIN (1-3) 01/16/25 17:30 02/15/25 17:29 01/20/25 10:42 650 MG Acetaminophen (TYLenol 325MG TAB) 650 mg Q6H PRN PO TEMPERATURE GREATER THAN 101.5 01/05/25 02:30 02/04/25 02:29 01/16/25 17:26 650 MG Apixaban (EliquIS) 5 mg BID PO 01/25/25 21:00 02/24/25 20:59 Apixaban (EliquIS) 10 mg BID PO 01/18/25 21:00 01/18/25 13:52 DC Apixaban (EliquIS) 10 mg BID PO 01/18/25 21:00 01/25/25 20:59 01/20/25 08:19 10 MG Aspirin (Aspirin 81mg Chew Tab) 81 mg DAILY PO 01/05/25 09:00 01/05/25 09:53 DC Aspirin (Aspirin 81mg Ec Tab) 81 mg DAILY PO 01/16/25 09:00 02/15/25 08:59 01/20/25 08:19 81 MG Benzocaine (Cepacol Sore Throat Lozenge) 1 each Q4H PRN MM SORE THROAT 01/05/25 02:30 02/04/25 02:29 Calcium Gluconate 1 gm/Sodium Chloride 100 ml @ 0 mls/hr AD PRN IV Serum Calcium Correction 01/08/25 02:30 02/07/25 02:29 01/08/25 23:32 90 MLS/HR Cefazolin Sodium (Ancef) 2 gm Q12H IVPB 01/07/25 13:30 01/16/25 14:43 DC 01/16/25 01:12 2 GM Cefazolin Sodium (Ancef) 2 gm Q8H IVPB 01/16/25 21:30 01/17/25 13:22 DC 01/17/25 05:07 2 GM Chlordiazepoxide HCl (LIBrium 25 MG CAP) 25 mg Q8H PO 01/05/25 02:30 01/11/25 11:39 DC 01/10/25 22:23 25 MG Chlordiazepoxide HCl (LIBrium 25 MG CAP) 25 mg Q8H PRN PO WITHDRAWAL 01/11/25 12:00 01/12/25 02:29 DC Dexamethasone Sodium Phosphate 20 mg/Sodium Chloride 52 ml @ 100 mls/hr DAILY IV 01/09/25 09:00 02/08/25 08:59 01/20/25 10:35 100 MLS/HR Dexamethasone Sodium Phosphate 40 mg/Sodium Chloride 50 ml @ 100 mls/hr DAILY IV 01/06/25 14:00 01/08/25 12:16 DC 01/08/25 09:34 100 MLS/HR Dextrose (D50w) 50 ml AD PRN IV HYPOGLYCEMIA PROTOCOL 01/05/25 10:00 02/04/25 09:59 Doxycycline Hyclate 250 ml @ 125 mls/hr Q12H IV 01/05/25 10:00 01/06/25 21:05 DC 01/06/25 09:30 125 MLS/HR Doxycycline Hyclate 250 ml @ 125 mls/hr Q12H IV 01/06/25 21:30 01/16/25 14:23 DC 01/16/25 10:13 125 MLS/HR Fluconazole (DiFLUCan 100 mg TAB) 200 mg DAILY PO 01/12/25 09:00 02/11/25 08:59 01/20/25 08:19 200 MG Folic Acid (FOLic ACID 1 MG TABLET) 1 mg DAILY PO 01/07/25 10:30 02/06/25 10:29 01/20/25 08:20 1 MG Furosemide (LASix 20MG VIAL) 20 mg Q12H IV 01/07/25 16:00 01/11/25 00:56 DC 01/10/25 19:40 20 MG Gentamicin Sulfate 150 mg/ Sodium Chloride 100 ml @ 100 mls/hr Q12H IV 01/20/25 16:00 02/03/25 15:59 Gentamicin Sulfate/Sodium Chloride 100 ml @ 200 mls/hr Q12H IV 01/16/25 15:30 01/18/25 03:39 DC 01/17/25 16:00 200 MLS/HR Gentamicin Sulfate/Sodium Chloride 100 ml @ 200 mls/hr Q12H IV 01/18/25 04:00 01/20/25 06:41 DC 01/20/25 05:38 200 MLS/HR Glucagon (Glucagon 1mg Kit) 1 mg AD PRN IM HYPOGLYCEMIA PROTOCOL 01/05/25 10:00 02/04/25 09:59 Heparin Sodium/ Dextrose 250 ml @ 0 mls/hr PROTOCOL IV 01/11/25 14:30 01/18/25 13:28 DC 01/17/25 16:09 13.99 MLS/HR Hydralazine HCl (APRESOLine 20MG INJ) 5 mg Q6H PRN IV For:SBP above 160;DBP above 90 01/05/25 14:30 02/04/25 14:29 01/10/25 22:24 5 MG Hydralazine HCl (APRESOLine 20MG INJ) 10 mg Q6H PRN IV For:SBP above 160;DBP above 90 01/05/25 02:30 01/05/25 09:53 DC Insulin Glargine (LANtus 100 UNITS/ML 10 ML VIAL) 15 units Q12H SQ 01/07/25 21:30 01/09/25 23:18 DC 01/09/25 13:10 15 UNITS Insulin Glargine (LANtus 100 UNITS/ML 10 ML VIAL) 20 units DAILY SQ 01/14/25 09:00 02/13/25 08:59 01/20/25 08:29 20 UNITS Insulin Glargine (LANtus 100 UNITS/ML 10 ML VIAL) 20 units HS SQ 01/06/25 21:00 01/06/25 21:05 DC Insulin Glargine (LANtus 100 UNITS/ML 10 ML VIAL) 20 units HS SQ 01/06/25 21:30 01/07/25 10:24 DC 01/06/25 21:33 20 UNITS Insulin Glargine (LANtus 100 UNITS/ML 10 ML VIAL) 20 units Q12H SQ 01/10/25 09:30 01/10/25 12:58 DC Insulin Glargine (LANtus 100 UNITS/ML 10 ML VIAL) 25 units Q12H SQ 01/10/25 21:30 01/11/25 00:50 DC 01/10/25 22:19 25 UNITS Insulin Glargine (LANtus 100 UNITS/ML 10 ML VIAL) 30 units DAILY SQ 01/12/25 09:00 01/14/25 07:03 DC 01/12/25 11:25 30 UNITS Insulin Glargine (LANtus 100 UNITS/ML 10 ML VIAL) 30 units Q12H SQ 01/11/25 09:30 01/11/25 20:13 DC 01/11/25 10:50 30 UNITS Insulin Human Regular (humuLIN R 100 UNIT/ML 3ML) 5 unit TIDAC SQ 01/14/25 07:30 02/13/25 07:29 01/20/25 13:27 5 UNIT Insulin Human Regular (humuLIN R 100 UNIT/ML 3ML) 8 unit TIDAC SQ 01/11/25 07:30 01/14/25 07:03 DC 01/13/25 19:47 8 UNIT Insulin Human Regular (humuLIN R 100 UNIT/ML 3ML) INSULIN SLIDING SCAL... ACHS SQ 01/18/25 21:00 02/17/25 20:59 01/19/25 20:11 2 UNIT Insulin Human Regular (humuLIN R 100 UNIT/ML 3ML) INSULIN SLIDING SCAL... ACHS SQ 01/05/25 07:30 01/05/25 09:57 DC 01/05/25 07:59 16 UNIT Insulin Human Regular (humuLIN R 100 UNIT/ML 3ML) INSULIN SLIDING SCAL... ACHS SQ 01/05/25 11:30 01/06/25 16:43 DC 01/06/25 11:50 8 UNIT Insulin Human Regular (humuLIN R 100 UNIT/ML 3ML) INSULIN SLIDING SCAL... ACHS SQ 01/06/25 17:00 01/07/25 13:32 DC 01/06/25 17:17 16 UNIT Insulin Human Regular (humuLIN R 100 UNIT/ML 3ML) INSULIN SLIDING SCAL... Q4H SQ 01/11/25 02:00 01/11/25 23:59 DC 01/11/25 20:49 6 UNIT Insulin Human Regular (humuLIN R 100 UNIT/ML 3ML) INSULIN SLIDING SCAL... Q4H SQ 01/11/25 23:59 01/18/25 19:33 DC 01/18/25 16:59 4 UNIT Insulin Human Regular (humuLIN R 100 UNIT/ML 3ML) INSULIN SLIDING SCAL... Q6H6 SQ 01/10/25 18:00 01/11/25 00:50 DC 01/11/25 00:45 10 UNIT Insulin Human Regular 100 unit/ Sodium Chloride 100 ml @ 0 mls/hr AD PRN IV HYPERGLYCEMIA PROTOCOL 01/06/25 19:30 01/10/25 06:00 DC 01/09/25 19:10 16 MLS/HR Lactated Ringer's 1,000 ml @ 100 mls/hr Q10H IV 01/05/25 02:30 01/05/25 09:51 DC 01/05/25 02:30 100 MLS/HR Lactated Ringer's 1,000 ml @ 125 mls/hr Q8H IV 01/10/25 01:30 01/10/25 19:40 DC 01/10/25 13:07 125 MLS/HR Lactobacillus Rhamnosus ([facility]) 1 each DAILY PO 01/12/25 09:00 02/11/25 08:59 01/20/25 08:18 1 EACH Lorazepam (AtiVAN) 1 mg Q4H PRN IVP ALCOHOL WITHDRAWAL PROTOCOL 01/05/25 02:30 01/12/25 02:29 DC Magnesium Sulfate 50 ml @ 0 mls/hr PROTOCOL PRN IV h 01/05/25 02:30 02/04/25 02:29 01/18/25 08:34 25 MLS/HR Morphine Sulfate (morPHINE 2MG SYG) 2 mg Q4H PRN IVP SEVERE PAIN (7-10) 01/05/25 02:30 01/12/25 02:29 DC Multivitamins Therapeutic (Multivitamin Tablet) 1 tab DAILY PO 01/07/25 10:30 02/06/25 10:29 01/20/25 08:20 1 TAB Nafcillin Sodium (Nafcillin 2gm+ NS 100ml) 2 gm Q6H6 IV 01/17/25 18:00 01/27/25 17:59 01/20/25 13:29 2 GM Nicotine (Nicoderm) 21 mg DAILY TD 01/05/25 09:00 02/04/25 08:59 01/20/25 08:20 21 MG Nitroglycerin (Nitrostat) 0.4 mg AD PRN SL CHEST PAIN 2/6/25 02:30 02/04/25 02:29 Nystatin (NYSTatin 640527 UNIT/ML 5ML UDCUP) 100,000 UNITS 1 ML TO E... QID PO 01/18/25 09:00 02/17/25 08:59 01/20/25 13:29 5 ML Ondansetron HCl (zoFRAN 4MG INJ) 4 mg Q6H PRN IV NAUSEA/VOMITING 01/05/25 02:30 02/04/25 02:29 Pantoprazole Sodium (PROTonix 40MG TAB) 40 mg DAILY PO 01/05/25 09:00 02/04/25 08:59 01/20/25 08:19 40 MG Pharmacy Profile Note (Pharmacy Communication) 1 each ONCE MISC 01/16/25 14:30 01/16/25 15:12 DC Pharmacy Profile Note (Pharmacy Communication) 1 each PROTOCOL PRN MISC ETOH Withdrawal Score changes 01/05/25 02:30 01/12/25 02:29 DC Piperacillin Sod/ Tazobactam Sod (Zosyn 3.375gm+NS 50ml) 3.375 gm Q12H IV 01/05/25 02:30 01/07/25 13:24 DC 01/07/25 02:45 3.375 GM Potassium Phosphate 250 ml @ 42 mls/hr PROTOCOL PRN IV PROTOCOL 01/05/25 10:00 02/04/25 09:59 Potassium Chloride 100 ml @ 100 mls/hr AD PRN IV POTASSIUM PROTOCOL 01/05/25 02:30 01/07/25 10:12 DC Potassium Chloride 100 ml @ 100 mls/hr AD PRN IV POTASSIUM PROTOCOL 01/07/25 10:30 02/06/25 10:29 01/09/25 06:26 100 MLS/HR Potassium Chloride (K-Dur 10meq Sr Tab) 10 meq AD PRN PO POTASSIUM PROTOCOL 01/06/25 09:30 02/04/25 02:29 01/08/25 23:35 10 MEQ Potassium Chloride (K-Dur/Klor-Con 20meq) 10 meq AD PRN PO POTASSIUM PROTOCOL 01/05/25 02:30 01/06/25 09:12 DC 01/05/25 22:15 10 MEQ Potassium Chloride (K-Dur/Klor-Con 20meq) 10 meq AD PRN PO POTASSIUM PROTOCOL 01/07/25 10:30 01/07/25 10:12 DC Potassium Chloride (KCl 10% Elixir 20meq/15ml) 10 meq AD PRN PO POTASSIUM PROTOCOL 01/05/25 02:30 01/07/25 10:12 DC 01/06/25 17:16 10 MEQ Potassium Chloride (KCl 10% Elixir 20meq/15ml) 10 meq AD PRN PO POTASSIUM PROTOCOL 01/07/25 10:30 02/06/25 10:29 01/08/25 15:28 10 MEQ Sodium Bicarbonate (Sodium Bicarbonate) 1,300 mg BID PO 01/11/25 09:00 02/10/25 08:59 01/20/25 08:19 1,300 MG Sodium Chloride 1,000 ml @ 50 mls/hr Q20H IV 01/05/25 10:00 01/10/25 01:33 DC 01/09/25 05:56 50 MLS/HR Sodium Chloride 1,000 ml @ 75 mls/hr [id number] IV 01/11/25 01:00 01/11/25 13:45 DC 01/11/25 01:00 75 MLS/HR Triamcinolone Acetonide (Kenalog/ Aristocort) 1 APPLY TP BID BID TP 01/07/25 11:00 02/06/25 10:59 01/20/25 08:20 1 APPL Vancomycin HCl (Vancomycin Protocol) 1 each AD IV 01/07/25 12:30 01/07/25 12:40 DC DIAGNOSTICS / RADIOLOGY: [ ] ASSESSMENT: Severe sepsis, resolved POA Gram-positive bacteremia secondary to Staphylococcus aureus, POA Hypodense echogenic mobile vegetation to right coronary cusp leaflet on echocardiogram 01/05/2025 Left atrial appendage clot present. on DRAKE 01/11 non coronary cusp leaflet has vegetation that measures 1.8 x 1.1 cm. on DRAKE 01/11 Urinary tract infection, secondary to Klebsiella pneumoniae, POA Strep pharyngitis, POA ITP, POA Leukocytosis, POA Hyperlactatemia, POA Acute kidney injury, POA Hypokalemia, POA Hyponatremia, POA Hypomagnesemia, POA POA New onset Uncontrolled Diabetes mellitius type2, POA Elevated troponin, POA Cocaine abuse, POA Alcohol abuse, POA Tobacco dependence, POA Significant proteinuria, POA Diabetic nephropathy, POA Gallstones, POA Fidelina esophagitis on EGD 01/11 PLAN: -patient remains admitted to the medical floor. -continue the patient on broad-spectrum IV antibiotics -results of DRAKE reviewed, Left atrial appendage clot present. on DRAKE 01/11, aortic valve is trileaflet, opens well. Non coronary cusp leaflet has vegetation that measures 1.8 x 1.1 cm. on DRAKE 01/11 -continue heparin drip. Patient already evaluated by Cardiothoracic surgeon, continue medical management, we will re-evaluate possibility of aortic valve replacement in the near future. 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 Continue to follow Hematology input and recommendation -renal function slightly improved today, patient evaluated by teacher kindergarten, the patient with significant proteinuria on UA consistent with diabetic nephropathy. No acute need for any form of renal replacement therapy. -blood culture positive for Staphylococcus aureus. Urine culture positive for Klebsiella pneumoniae. Continue broad-spectrum IV antibiotics, continue to follow ID input recommendation. -case discussed with case management, patient to complete course of IV antibiotics likely during this hospitalization as the patient is uninsured. Disposition: Pending improvement in clinical condition. All questions answered time spent: > 35 min ARVIND NOLAND MD Jan 20, 2025 17:23
[2025-01-20] MEDS: [UNRECOGNIZED DRUG - OTHER] IV SCH (18:10)
[2025-01-20] MEDS: GENTAMICIN SULFATE IV SCH (18:10)
[2025-01-20 18:26] VITALS: O2SAT 99
[2025-01-20 20:00] VITALS: BP 124/77; PULSE 91; RESP 18; TEMP 97.7
[2025-01-21] VITALS: BP 123/65; PULSE 78; RESP 18; TEMP 98
[2025-01-21 04:00] VITALS: BP 111/63; PULSE 72; RESP 19; TEMP 97.7
[2025-01-21 05:16] LABS: % IRON SATURATION 19.6 % (30-44)
[2025-01-21 08:00] VITALS: BP 137/68; PULSE 78; RESP 16; TEMP 97.9
[2025-01-21 12:00] VITALS: BP 100/65; PULSE 80; RESP 16; TEMP 97.8
--- NOTE | 2025-01-21 14:51 | PN ---
NEPHROLOGY PROGRESS NOTE Date/Time Patient Seen: Jan 21, 2025 Reason for Consultation: 14:47 SUBJECTIVE: This is a is a 44-year-old male presented to the hospital with acute renal failure. The patient initially admitted to the hospital and found to have endocarditis. The patient remains on the antibiotics. He has had acute on chronic renal failure in the hospital. Creatinine has improved and he is being seen as a followup visit for all of the above. Patient's creatinine has somewhat improved. He remains on the antibiotics. The patient now with significant anemia. He was seen in the medical floor, in no acute distress Family at the bedside Prognosis remains guarded REVIEW OF SYSTEMS: GENERAL: Negative for any nausea, vomiting, fevers, chills, or weight loss. NEUROLOGIC: Negative for any blurry vision, blind spots, double vision, facial asymmetry, dysphagia, dysarthria, hemiparesis, hemisensory deficits, vertigo, ataxia. HEENT: Negative for any head trauma, neck trauma, neck stiffness, photophobia, phonophobia, sinusitis, rhinitis. CARDIAC: Negative for any chest pain, dyspnea on exertion, paroxysmal nocturnal dyspnea, peripheral edema. PULMONARY: Negative for any shortness of breath, wheezing, COPD, or TB exposure. GASTROINTESTINAL: Negative for any abdominal pain, nausea, vomiting, bright red blood per rectum, melena. GENITOURINARY: Negative for any dysuria, hematuria, incontinence. INTEGUMENTARY: Negative for any rashes, cuts, insect bites. RHEUMATOLOGIC: Negative for any joint pains, photosensitive rashes, history of vasculitis or kidney problems. HEMATOLOGIC: Negative for any abnormal bruising, frequent infections or bleeding. Vital Signs (last 8hr) Date Time Temp Pulse Resp B/P (MAP) Pulse Ox O2 Delivery O2 Flow Rate FiO2 01/07/25 16:22 99 Nasal Cannula* 2 28 01/07/25 15:46 97.0 69 20 154/55 98 Nasal Cannula 2.0 01/07/25 14:46 71 20 144/93 97 Room Air 01/07/25 13:47 73 12 163/89 98 Room Air 01/07/25 12:46 57 18 167/90 99 Room Air 01/07/25 11:46 68 15 133/80 97 Room Air 01/07/25 11:32 98 Room Air* 0 21 01/07/25 10:46 73 15 141/96 97 Room Air 01/07/25 10:01 98.4 68 14 143/86 99 Room Air 01/07/25 09:16 69 17 156/102 98 Room Air 01/07/25 09:01 66 13 156/98 99 Room Air 01/07/25 08:47 75 15 165/112 99 Room Air PHYSICAL EXAM: GENERAL: Alert and oriented x 3. No acute distress. Well-nourished. EYES: EOMI. Anicteric. HENT: Moist mucous membranes. No scleral icterus. No cervical lymphadenopathy. LUNGS: Clear to auscultation bilaterally. No accessory muscle use. CARDIOVASCULAR: Regular rate and rhythm. No murmur. No JVD. ABDOMEN: Soft, non-tender and non-distended. No palpable masses. EXTREMITIES: No edema. Non-tender.?SKIN: No rashes or lesions. Warm. NEUROLOGIC: No focal neurological deficits. CN II-XII grossly intact, but not individually tested. PSYCHIATRIC: Cooperative. Appropriate mood and affect. Current Medications Medications (Trade) Dose Ordered Sig/Asya Route PRN Reason Start Time Stop Time Status Last Admin Dose Admin Acetaminophen (TYLenol 325MG TAB) 650 mg Q6H PRN PO TEMPERATURE GREATER THAN 101.5 01/05/25 02:30 02/04/25 02:29 Aspirin (Aspirin 81mg Chew Tab) 81 mg DAILY PO 01/05/25 09:00 01/05/25 09:53 DC Benzocaine (Cepacol Sore Throat Lozenge) 1 each Q4H PRN MM SORE THROAT 01/05/25 02:30 02/04/25 02:29 Cefazolin Sodium (Ancef) 2 gm Q12H IVPB 01/07/25 13:30 01/17/25 13:29 01/07/25 14:05 2 GM Chlordiazepoxide HCl (LIBrium 25 MG CAP) 25 mg Q8H PO 01/05/25 02:30 01/12/25 02:29 01/07/25 09:44 25 MG Dexamethasone Sodium Phosphate 40 mg/Sodium Chloride 50 ml @ 100 mls/hr DAILY IV 01/06/25 14:00 01/10/25 09:29 01/07/25 10:54 100 MLS/HR Dextrose (D50w) 50 ml AD PRN IV HYPOGLYCEMIA PROTOCOL 01/05/25 10:00 02/04/25 09:59 Doxycycline Hyclate 250 ml @ 125 mls/hr Q12H IV 01/05/25 10:00 01/06/25 21:05 DC 01/06/25 09:30 125 MLS/HR Doxycycline Hyclate 250 ml @ 125 mls/hr Q12H IV 01/06/25 21:30 01/16/25 21:29 01/07/25 09:07 125 MLS/HR Folic Acid (FOLic ACID 1 MG TABLET) 1 mg DAILY PO 01/07/25 10:30 02/06/25 10:29 01/07/25 12:57 1 MG Furosemide (LASix 20MG VIAL) 20 mg Q12H IV 01/07/25 16:00 01/20/25 16:00 01/07/25 15:56 20 MG Glucagon (Glucagon 1mg Kit) 1 mg AD PRN IM HYPOGLYCEMIA PROTOCOL 01/05/25 10:00 02/04/25 09:59 Hydralazine HCl (APRESOLine 20MG INJ) 5 mg Q6H PRN IV For:SBP above 160;DBP above 90 01/05/25 14:30 02/04/25 14:29 Hydralazine HCl (APRESOLine 20MG INJ) 10 mg Q6H PRN IV For:SBP above 160;DBP above 90 01/05/25 02:30 01/05/25 09:53 DC Insulin Glargine (LANtus 100 UNITS/ML 10 ML VIAL) 15 units Q12H SQ 01/07/25 21:30 02/05/25 21:29 Insulin Glargine (LANtus 100 UNITS/ML 10 ML VIAL) 20 units HS SQ 01/06/25 21:00 01/06/25 21:05 DC Insulin Glargine (LANtus 100 UNITS/ML 10 ML VIAL) 20 units HS SQ 01/06/25 21:30 01/07/25 10:24 DC 01/06/25 21:33 20 UNITS Insulin Human Regular (humuLIN R 100 UNIT/ML 3ML) INSULIN SLIDING SCAL... ACHS SQ 01/05/25 07:30 01/05/25 09:57 DC 01/05/25 07:59 16 UNIT Insulin Human Regular (humuLIN R 100 UNIT/ML 3ML) INSULIN SLIDING SCAL... ACHS SQ 01/05/25 11:30 01/06/25 16:43 DC 01/06/25 11:50 8 UNIT Insulin Human Regular (humuLIN R 100 UNIT/ML 3ML) INSULIN SLIDING SCAL... ACHS SQ 01/06/25 17:00 01/07/25 13:32 DC 01/06/25 17:17 16 UNIT Insulin Human Regular 100 unit/ Sodium Chloride 100 ml @ 0 mls/hr AD PRN IV HYPERGLYCEMIA PROTOCOL 01/06/25 19:30 02/05/25 19:29 01/06/25 20:48 6 MLS/HR Lactated Ringer's 1,000 ml @ 100 mls/hr Q10H IV 01/05/25 02:30 01/05/25 09:51 DC 01/05/25 02:30 100 MLS/HR Lorazepam (AtiVAN) 1 mg Q4H PRN IVP ALCOHOL WITHDRAWAL PROTOCOL 01/05/25 02:30 01/12/25 02:29 Magnesium Sulfate 50 ml @ 0 mls/hr PROTOCOL PRN IV h 01/05/25 02:30 02/04/25 02:29 01/05/25 03:24 25 MLS/HR Morphine Sulfate (morPHINE 2MG SYG) 2 mg Q4H PRN IVP SEVERE PAIN (7-10) 01/05/25 02:30 01/12/25 02:29 Multivitamins Therapeutic (Multivitamin Tablet) 1 tab DAILY PO 01/07/25 10:30 02/06/25 10:29 01/07/25 10:39 1 TAB Nicotine (Nicoderm) 21 mg DAILY TD 01/05/25 09:00 02/04/25 08:59 01/07/25 10:00 21 MG Nitroglycerin (Nitrostat) 0.4 mg AD PRN SL CHEST PAIN 01/05/25 02:30 02/04/25 02:29 Ondansetron HCl (zoFRAN 4MG INJ) 4 mg Q6H PRN IV NAUSEA/VOMITING 01/05/25 02:30 02/04/25 02:29 Pantoprazole Sodium (PROTonix 40MG TAB) 40 mg DAILY PO 01/05/25 09:00 02/04/25 08:59 01/07/25 09:44 40 MG Pharmacy Profile Note (Pharmacy Communication) 1 each PROTOCOL PRN MISC ETOH Withdrawal Score changes 01/05/25 02:30 01/12/25 02:29 Piperacillin Sod/ Tazobactam Sod (Zosyn 3.375gm+NS 50ml) 3.375 gm Q12H IV 01/05/25 02:30 01/07/25 13:24 DC 01/07/25 02:45 3.375 GM Potassium Phosphate 250 ml @ 42 mls/hr PROTOCOL PRN IV PROTOCOL 01/05/25 10:00 02/04/25 09:59 Potassium Chloride 100 ml @ 100 mls/hr AD PRN IV POTASSIUM PROTOCOL 01/05/25 02:30 01/07/25 10:12 DC Potassium Chloride 100 ml @ 100 mls/hr AD PRN IV POTASSIUM PROTOCOL 01/07/25 10:30 02/06/25 10:29 Potassium Chloride (K-Dur 10meq Sr Tab) 10 meq AD PRN PO POTASSIUM PROTOCOL 01/06/25 09:30 02/04/25 02:29 01/07/25 15:51 10 MEQ Potassium Chloride (K-Dur/Klor-Con 20meq) 10 meq AD PRN PO POTASSIUM PROTOCOL 01/05/25 02:30 01/06/25 09:12 DC 01/05/25 22:15 10 MEQ Potassium Chloride (K-Dur/Klor-Con 20meq) 10 meq AD PRN PO POTASSIUM PROTOCOL 01/07/25 10:30 01/07/25 10:12 DC Potassium Chloride (KCl 10% Elixir 20meq/15ml) 10 meq AD PRN PO POTASSIUM PROTOCOL 01/05/25 02:30 01/07/25 10:12 DC 01/06/25 17:16 10 MEQ Potassium Chloride (KCl 10% Elixir 20meq/15ml) 10 meq AD PRN PO POTASSIUM PROTOCOL 01/07/25 10:30 02/06/25 10:29 Sodium Chloride 1,000 ml @ 50 mls/hr Q20H IV 01/05/25 10:00 02/04/25 09:59 01/07/25 15:38 150 MLS/HR Triamcinolone Acetonide (Kenalog/ Aristocort) 1 APPLY TP BID BID TP 01/07/25 11:00 02/06/25 10:59 01/07/25 15:00 1 APPL Vancomycin HCl (Vancomycin Protocol) 1 each AD IV 01/07/25 12:30 01/07/25 12:40 DC LABORATORY: [ ] Hematology Labs: Test 01/20/25 04:21 Range/Units White Blood Count 10.7 4.8-10.8 K/uL Red Blood Count 2.61 L 4.50-6.20 MIL/uL Hemoglobin 8.5 L 14.0-18.0 g/dL Hematocrit 24.9 L 42-54 % Mean Corpuscular Volume 95.4 79-99 fL Mean Corpuscular Hemoglobin 32.6 27.0-33.0 pg Mean Corpuscular Hemoglobin Concent 34.1 32.0-36.0 g/dL Red Cell Distribution Width 13.0 11.0-15.5 % Platelet Count 168 130-400 K/uL Mean Platelet Volume 11.0 H 7.5-10.5 fL Immature Granulocyte % (Auto) 0.7 0-1 % Neutrophils (%) (Auto) 71.7 40.0-77.0 % Lymphocytes (%) (Auto) 19.6 L 21.0-51.0 % Monocytes (%) (Auto) 7.5 3.0-13.0 % Eosinophils (%) (Auto) 0.4 0.0-8.0 % Basophils (%) (Auto) 0.1 0.0-5.0 % Neutrophils # (Auto) 7.7 1.8-7.7 K/uL Lymphocytes # (Auto) 2.1 1.0-4.8 K/uL Monocytes # (Auto) 0.8 0.1-1.0 K/uL Eosinophils # (Auto) 0.04 0.00-0.70 K/uL Basophils # (Auto) 0.01 0.00-0.20 K/uL Absolute Immature Granulocyte (auto 0.08 0-1 K/uL Nucleated Red Blood Cells 0.0 0.0-0.19 % Chemistry Labs: Test 01/21/25 11:55 01/21/25 04:44 01/20/25 04:21 Range/Units Whole Blood Glucose 149 H 70-110 MG/DL Iron Level 23 L 65-175 mcg/dL Total Iron Binding Capacity 117 L 250-450 mcg/dL Percent Iron Saturation 19.6 L 30-44 % Sodium Level 137 136-145 mmol/L Potassium Level 3.9 3.5-5.1 mmol/L Chloride Level 107 101-111 mmol/L Carbon Dioxide Level 23 21-32 mmol/L Blood Urea Nitrogen 22 H 7-18 mg/dL Creatinine 1.1 0.5-1.3 mg/dL Glomerular Filtration Rate Calc 85 >90 mL/min Random Glucose 163 H 70-105 mg/dL Total Calcium 7.6 L 8.5-10.1 mg/dL DIAGNOSTICS / RADIOLOGY: REASON: [facility] ORDERING PHYSICIAN: EVANS HILARIO MD PROCEDURE: VENOUS UNI - US VENOUS DOPPLER UNILATERAL US VENOUS DOPPLER UNILATERAL REASON: [facility] COMPARISON: None Technique: Left venous doppler ultrasound was performed with spectral analysis and color flow imaging technique. FINDINGS: There is a normal appearance of the common femoral, deep femoral, the profunda femoris and popliteal veins. Proximal calf veins appear normal as well. There is normal response to compression and augmentation. There is no evidence of deep venous thrombosis. IMPRESSION: 1. No evidence of deep venous thrombosis in the left lower extremity. 2. There is a small Matthews cyst behind the left knee, 1.7 x 2.6 cm. DICTATED BY: CHRISTI PEMBERTON MD DATE: 01/18/25 1507 REASON: Endocarditis ORDERING PHYSICIAN: GUERA STANLEY MD PROCEDURE: HEAD WWO - CT HEAD/BRAIN W/WO CONTRAST CT HEAD/BRAIN W/WO CONTRAST HISTORY: Endocarditis COMPARISON: None TECHNIQUE: Multiple sequential axial images of the head were obtained from the base of the skull through vertex. Patient was given 50 cc of Omnipaque through intravenous route. FINDINGS: The ventricles and extraventricular CSF spaces are nondilated for patient's age. There is no midline shift, mass effect or herniation. No acute intracranial bleed is seen. Visualized portion of the paranasal sinuses are grossly within normal limits. No abnormal enhancement is seen. IMPRESSION: 1. No acute intracranial bleed is seen. No abnormal enhancement is seen. CT was performed with one or more following dose reduction techniques: automated exposure control, adjustment of the mA and kv according to patient's size, or use of a iterative reconstruction technique. DICTATED BY: CAROL HOWARD MD DATE: 01/13/25 1340 REASON: Endocarditis ORDERING PHYSICIAN: GUERA STANLEY MD PROCEDURE: CHEST WWO - CT CHEST W/WO CONTRAST CT CHEST W/WO CONTRAST HISTORY: Endocarditis COMPARISON: None TECHNIQUE: Multiple sequential axial images of the chest were obtained from the thoracic inlet through upper abdomen. Patient was given 50 cc of Omnipaque through intravenous route. FINDINGS: There is no evidence of pulmonary nodule or parenchymal disease. There are bibasilar linear atelectasis. There are motion artifacts degrading the image quality. A small hiatal hernia is seen. No pleural effusion or pericardial effusion is seen. There is no evidence of pneumothorax. There are normal size mediastinal and hilar lymph nodes. The heart is not enlarged. Coronary arterial calcifications are seen. Degenerative changes of the thoracolumbar spine are present. There is no evidence of adrenal nodule. IMPRESSION: 1. No evidence of pulmonary nodule or effusion is seen. Bibasilar linear atelectasis. CT was performed with one or more following dose reduction techniques: automated exposure control, adjustment of the mA and kv according to patient's size, or use of a iterative reconstruction technique. DICTATED BY: CAROL HOWARD MD DATE: 01/13/25 1343 REASON: ASSESS for endorcarditis ORDERING PHYSICIAN: EVANS HILARIO MD PROCEDURE: ECHO DRAKE - ECHO DRAKE--TRANSESOPHAGEAL APPROVED REPORT EXAM: Transesophageal echocardiogram with color flow Doppler. INDICATION ICD: Endocarditis Reason For Test : Rule out endocarditis. PROCEDURE After obtaining informed consent, patient underwent transesophageal echo in the GI LAB Type of Sedation: General Anesthesia Sedation was administered by Please refer to medication administration record. . Sedation was achieved with Please refer to medication administration record. intravenously. Transesophageal probe was inserted and advanced into esophagus without difficulty by Evans Hilario MD. DRAKE was performed and images were obtained, probe was removed without comp lications. Throughout the procedure, the blood pressure, pulse oximetry, cardiac rhythm, and rate were monitored. Left Ventricle Left ventricular cavity is normal. There is mild asymetrical left ventricular wall thickness. LVEF is 60-65%. No left ventricle thrombus noted on this study. Right Ventricle The right ventricle is severely dilated. The right ventricular systolic function is normal. Atria Left atrial appendage clot present. The left atrium size is normal. There is no mass or thrombus suspected in the left atrium. No evidence of PFO/ASD by color doppler. The right atrium size is normal. There is no mass or thrombus suspected in the right atrium. Aortic Valve Aortic valve is trileaflet and open well. Non coronary cusp leaflet has vegetation that measures 1.81cm x 1.17cm. No aortic regurgitation is present. There is no aortic valvular stenosis. Mitral Valve The mitral valve is normal in structure and function. There is mild mitral valve regurgitation noted. No mitral valve vegetation. There is no mitral valve stenosis. Tricuspid Valve The tricuspid valve is normal in structure and function. There is no tricuspid valve regurgitation noted. No tricuspid valve vegetation. Pulmonic Valve The pulmonary valve is normal in structure and function. There is no pulmonic valvular regurgitation. No pulmonic valve vegetation. Great Vessels The aortic root is normal in size. Ascending aorta appers normal in size. Descending aorta appears normal in size. Pericardium The pericardium appears normal. Conclusion Left ventricular cavity is normal. There is mild asymetrical left ventricular wall thickness. LVEF is 60-65%. No left ventricle thrombus noted on this study. The right ventricle is severely dilated. The right ventricular systolic function is normal. Left atrial appendage clot present. The left atrium size is normal. There is no mass or thrombus suspected in the left atrium. The right atrium size is normal. There is no mass or thrombus suspected in the right atrium. No evidence of PFO/ASD by color doppler. Aortic valve is trileaflet and open well. Non coronary cusp leaflet has vegetation that measures 1.81cm x 1.17cm. No aortic regurgitation is present. There is no aortic valvular stenosis. There is mild mitral valve regurgitation noted. No mitral valve vegetation. No tricuspid valve vegetation. No pulmonic valve vegetation. DICTATED BY: EVANS HILARIO MD DATE: 01/11/25 0649 REASON: eval gallbladder, cholecystitis. ORDERING PHYSICIAN: HANNAH CARTER MD PROCEDURE: ABDOMEN - US ABDOMINAL COMPLETE ULTRASOUND ABDOMEN COMPLETE INDICATION: Abdominal Pain COMPARISON: 01/05/2025 CT abdomen and pelvis. FINDINGS: The liver is enlarged and increased in echogenicity; no focal lesion demonstrated. Length is measured at 21.6 cm Main portal vein is patent, and normal direction of vascular flow demonstrated. The common bile duct caliber measures 4.0 mm. Echogenic shadowing gallstones without associated pericholecystic fluid. No sonographic Dominguez's sign elicited by the ultrasound paraffin plant sweater operator. Wall thickness measures 2.0 mm. The spleen is normal in size and echotexture. The spleen measures 9.8 cm. Visible portions of the pancreas appear unremarkable. The right kidney measures 12.6 x 6.3 x 6.6 cm,and is normal in echogenicity, without evidence for hydronephrosis or shadowing stones. The left kidney measures 12.8 x 8.1 x 6.0 cm,and is normal in echogenicity, without evidence for hydronephrosis or shadowing stones. Visible portions of the abdominal aorta are within normal limits. Visible portions of the inferior vena cava are within normal limits. No free fluid demonstrated. IMPRESSION: Cholelithiasis without sonographic evidence for cholecystitis. Findings suggesting hepatomegaly and hepatic steatosis or other underlying hepatocellular disease process. DICTATED BY: KIARA PETERSON MD DATE: 01/08/25 0955 REASON: sob ORDERING PHYSICIAN: KARMA LUNDBERG MD PROCEDURE: CXR1VW - CHEST 1VW PORTABLE CHEST RADIOGRAPH INDICATION: sob COMPARISON: 01/04/2025 FINDINGS: art supervisor leads overlie the field of view. Heart size is normal. The pulmonary vascularity and jimmie appear normal. No abnormal pulmonary parenchymal opacity or consolidation identified. No significant pleural effusion noted. No pneumothorax detected. IMPRESSION: No radiographic evidence for any acute cardiopulmonary process. 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 COMPARISON: None. TECHNIQUE: Injected Dose: 7 mCi Tc-99m mebrofenin Initial dynamic images: 60 minutes Post-treatment: None. Additional images: 2 hour delay. FINDINGS: Normal hepatic transit time. Prompt excretion into the small bowel. There is no excretion into the gallbladder. . IMPRESSION: Acute cholecystitis. DICTATED BY: HANK AVILA DO DATE: 01/07/25 1402 REASON: positive troponin ORDERING PHYSICIAN: MAHOGANY CARBAJAL MD PROCEDURE: ECHO CMP - ECHO 2-D COMPLETE APPROVED REPORT EXAM: Two-dimensional and M-mode echocardiogram with Doppler and color Doppler. Study Details: Pt states fevers INDICATION ICD: Positive troponin 2D Dimensions RVDd 3.9 cm LVEF(%) 51.2 (>50%) LVED Vol(simp.) 87.0 mL IVSd 0.8 (0.7-1.1cm) FS(%) 26 % LVES Vol(simp.) 35.0 mL LVDd 5.3 (3.8-5.6cm) LA (2D) 4.2 (1.6-4.0cm) LVEF(%, simp.) 60 % PWd 1.3 (0.7-1.1cm) Ao Root(2D) 3.5 (2.0-3.7cm) LA ESV INDEX (4CH) 21.50 mL/m2 IVSs 1.0 cm LVOT diam 2.4 (1.8-2.4cm) LA ESV INDEX (2CH) 19.20 mL/m2 LVDs 3.9 (2.5-4.0cm) IVC diam 2.5 cm LA ESV INDEX (BP) 20.35 mL/m2 PWs 1.6 cm Deformation Strain Apical 4 -16.0 % Apical 2 -12.0 % Apical 3 -10.0 % Global Strain -13.0 % M-Mode Dimensions EPSS 0.6 cm LA (MM) 4.3 (1.6-4.0cm) Ao Root(MM) 3.8 (2.0-3.7cm) Aortic Valve AoV VTI 0.2 m Ao Mean GR 5.0 mmHg LVOT VTI 0.20 m JEANNE (VMAX) 3.9 cm2 JEANNE (VTI) 3.9 cm2 Mitral Valve MV E Vmax 117.5 cm/s DECEL Time 151 ms MV Mean GR 4 mmHg MV A Vmax 50.8 cm/s P 1/2 T 58 ms MVA (VTI) 2.7 cm2 E/A ratio 2.3 MVA (PHT) 3.8 cm2 TDI E/E' Medial 22.6 E/E' Lateral 19.6 Medial E' Peak V 5.20 cm/s Lateral E' Peak V 6.00 cm/s Pulmonary Valve PV VTI 0.15 m PV Mean GR 2 mmHg Tricuspid Valve RAP (EST) 8 mmHg RVSP 8.0 mmHg Left Ventricle The left ventricle is normal size. The There is normal left ventricular wall thickness. LVEF is 60-65%. Indeterminate diastolic dysfunction. Right Ventricle The right ventricle is normal size. The right ventricular systolic function is normal. Atria The left atrium size is normal. The right atrium size is normal. Aortic Valve The aortic valve is trileaflet and opens well. Right coronary cusp leaflet appears to have a vegeration. No aortic regurgitation is present. There is no aortic valvular stenosis. Mitral Valve The mitral valve is normal in structure. There is no mitral valve regurgitation noted. There is no mitral valve stenosis. Tricuspid Valve The tricuspid valve is normal in structure. There is no tricuspid valve regurgitation noted. Pulmonic Valve The pulmonary valve is normal in structure. There is no pulmonic valvular regurgitation. Great Vessels The aortic root is normal in size. IVC is dilated and collapses >50% with inspiration. Pericardium There is no pericardial effusion. Other Information Quality : Adequate Conclusion The left ventricle is normal size. LVEF is 60-65%. Indeterminate diastolic dysfunction. The right ventricle is normal size. The right ventricular systolic function is normal. The left atrium size is normal. The right atrium size is normal. The aortic valve is trileaflet and opens well. Right coronary cusp leaflet appears to have a vegeration. IVC is dilated and collapses >50% with inspiration. There is no pericardial effusion. DICTATED BY: EVANS HILARIO MD DATE: 01/05/25 1234 REASON: renal failure ORDERING PHYSICIAN: MAHOGANY CARBAJAL MD PROCEDURE: RENAL - US RENAL SONOGRAM Exam Type: US RENAL SONOGRAM Clinical Information: renal failure Comparison: None Findings: Examination shows normal renal size and echogenicity bilaterally. Preserved cortical thickness and corticomedullary junction region is seen. No hydronephrosis or calculi are seen. No renal masses are seen. There is no evidence of perinephric fluid on either side. No evidence of significant ureteral dilatation is seen. The right kidney measures 12.8 x 5.5 cm. The left kidney measures 12.9 x 6 cm. The urinary bladder is normal. No bladder masses, stones, or wall thickening is seen. Incidentally there is evidence of cholelithiasis. IMPRESSION: Normal renal anatomy bilaterally. DICTATED BY: JANIE JOHNSON MD DATE: 01/05/25 1241 .REASON: severe sepsis uti- evaluate for hydronephrosis /pyelonephritis ORDERING PHYSICIAN: NEW REAVES MD PROCEDURE: ABD PEL WO - CT ABDOMEN/PELVIS W/O CONTRAST CT ABDOMEN/PELVIS W/O CONTRAST HISTORY: UTI COMPARISON: 12/14/2022 TECHNIQUE: Multiple sequential axial images of the abdomen and pelvis were obtained from the dome of the diaphragm through symphysis pubis. Patient was not given contrast through intravenous route. Oral contrast was not given. FINDINGS: No pleural effusion is seen bilaterally. There is no evidence of parenchymal disease or pulmonary nodule of the visualized lower lungs. Degenerative changes of the thoracolumbar spine are present. The heart is not enlarged. Liver is enlarged with fatty changes measuring 21 cm. A small hiatal hernia is seen. Gallstones are seen in the gallbladder. Nonspecific bilateral perinephric fat stranding is seen. If there is clinical suspicion for pyelonephritis, urinalysis correlation may be helpful. The liver, spleen, adrenal glands and pancreas are unremarkable. There is no evidence of hydronephrosis bilaterally. No evidence of renal stone is seen. Fecal material is seen in the colon. There are normal size retroperitoneal and mesenteric lymph nodes. No ascites is seen. No CT evidence of acute appendicitis is seen. Pelvic sidewalls are symmetric bilaterally. Bladder is moderately distended. IMPRESSION: 1. Gallstones in the gallbladder. If there is clinical suspicion for pyelonephritis, urinalysis correlation may be helpful. CT was performed with one or more following dose reduction techniques: automated exposure control, adjustment of the mA and kv according to patient's size, or use of a iterative reconstruction technique. DICTATED BY: CAROL HOWARD MD DATE: 01/05/25 014 REASON: chest pain CAD ORDERING PHYSICIAN: NEW REAVES MD PROCEDURE: CXR1VW - CHEST 1VW Exam Type: CHEST 1VW Clinical Information: chest pain CAD Comparison: None Findings: The lungs are clear of infiltrates. The heart is normal in size. The bony and soft tissue structures of the chest are unremarkable. Impression: Clear lungs. DICTATED BY: JANIE JOHNSON MD DATE: 01/05/25816 ASSESSMENT: Acute on chronic renal failure. Gram-positive bacteremia. Diabetes mellitus. Electrolyte abnormalities. PLAN: Labs, diagnostic, radiologic exams reviewed and interpreted by myself and supervising physician. We have reviewed external records in detail Start Venofer 300 mg IV daily x 3 doses. Require close monitoring of renal function and electrolytes Order CBC, CMP and electrolytes in am Continue with antibiotics BiPAP as necessary, for respiratory distress Monitor blood pressure adjust medication doses as needed Avoid hypotensive episodes May use Dilaudid 0.5 mg IV every 6 hours as needed for severe pain Monitor blood sugars Strict intake, output, and daily weight should be monitored Please renally adjust medications Avoid nephrotoxic and nonsteroidal drugs Avoid contrast if possible Will continue to monitor renal function, anemia, electrolytes Treatment plan discussed with patient Questions were answered We have discussed with the other team physicians in detail about the care plan We will continue to monitor the patient closely ATTESTATION BY PHYSICIAN I have seen and examined the patient. I reviewed the documentation, medical decision making, and treatment plan as noted by the mid-level provider above. I agree with the findings and plan of care. ANGELICA BOYER MD, [facility] Jan 21, 2025 14:51
[2025-01-21] MEDS ORDERED: IRON sUCROse COMPLEX 100 MG/5 ML VIAL IVP SCH (15:00)
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
[2025-01-21 16:00] VITALS: BP 110/71; PULSE 77; RESP 16; TEMP 98
[2025-01-21] MEDS ORDERED: IRON sUCROse COMPLEX 300 MG in 0.9% NACL 250ML 250 ML IV SCH ×2 (16:00→19:30)
[2025-01-21] MEDS ORDERED: COMPOUND IV REFRIGERATED 1 EACH IVSOLN MISC PRN (16:00)
[2025-01-21 20:00] VITALS: BP 133/72; PULSE 95; RESP 18; TEMP 98
--- NOTE | 2025-01-21 20:39 | PN ---
[facility] PROGRESS NOTE Date of Service: Jan 21, 2025 Time of Service: 20:37 SUBJECTIVE: [ ] The patient has been seen and examined at bedside, no acute events overnight, the patient is comfortable, cooperating well, alert oriented x3, he is on a CIWA protocol, not combative. BP 123/70, rest of vital signs unremarkable. Patient received transfusion of 1 unit of platelet, platelet count improved to 27, per kayaking instructor, likely due to splenomegaly. Echocardiogram reviewed, hypodense echogenic mobile vegetation to right coronary cusp leaflet, per cardiology once platelet count is greater than 50 1000 we will proceed with a a DRAKE. The pa tient also with a elevated blood sugar, continue insulin sliding scale, add insulin glargine 20 units subcutaneously at bedtime. Continue the patient on broad-spectrum IV antibiotics, continue to trend WBC in a.m.. 01/07 patient is seen and examined at bedside, case discussed with the RN, patient upgraded last night to the ICU to start insulin drip as blood glucose per sistently greater than 400. Patient started on dexamethasone IV by kayaking instructor do to ITP. Platelet count slightly better today at 41. Upon my initial encounter with the patient admitted that he drinks more than 18 beers per day. He was started on CIWA protocol, however has remained hemodynamically stable, comfortable in bed, no signs of withdrawal, cooperating fine. Not agitated, not combative. Toxicology screen positive for cocaine. Sodium level slowly improvi ng, today 132. Serology positive for influenza type A. The patient with significant proteinuria consistent with diabetic nephropathy, creatinine slowly trending down, no need for renal replacement therapy per sales operations coordinator. Patient with blood culture positive for Staphylococcus aureus, with urine culture positive for Klebsiella pneumoniae. We will add vancomycin IV pharmacy to dose. We will request Infectious Disease consultation. Echocardiogram reviewed, hypodense echogenic mobile vegetation to right coronary cusp leaflet, per cardiology once platelet count is greater than 50 1000 we will proceed with a a DRAKE. CT abdomen with gallstones in the gallbladder. HIDA scan pending 01/08 patient seen at bedside, no acute events overnight. He continues on insulin drip with an anion gap of 14, we will continue until the gap is closed. P latelets 54, we will follow up with Cardiology on optimal timing for DRAKE. Continue with IV antibiotics, further care per critical Care. 2/10 patient seen at bedside, no acute events overnight. Anion gap is still open at 14, we will continue IV insulin. Platelets improved from 54 up to 71, CO2 decreased from 17 down to 15. Cardiology planning on DRAKE today, we will follow up postprocedure. Repeat blood cultures are positive for Gram-positive organisms which further supports underlying endocarditis. Continue with IV antibiotics, appreciate Infectious Disease recommendations. He has been afebrile, hemodynamically stable saturating well on room air. WBC increased from 12.8 up to 13.6, BUN decreased from 93 down to 90, creatinine decreased from 2.5 down to 2.3, remainder of his labs are relatively unremarkable. 01/10 Pt seen at bedside, no acute events overnight. Pt with anion gap of 14, CO2 still low at 16. Repeat lactic acid was ordered, elevated at 4.8, will bolus patient and continue with IV fluids. DRAKE was rescheduled to today, will follow up with results.WBC improved from 13.6 down to 11.7, Hgb decreased from 15.1 down to 12.4, platelets decreased from 71 down to 66, this substantial decrease in all cell lines suggests hemodilution, creatinine decreased from 2.2 down to 1.4, also likely falsely depressed. 01/11 Pt seen at bedside, no acute events overnight. Pending EGD to assess for esophageal varices and DRAKE today, will follow up post procedure. Yesterday repeat lactic acid was elevated at 4.8, the patient was bolused and it improved down to 1.3. He has been afebrile, hemodynamically stable, saturating well on room air. WBC increased from 11.7 up to 12.5, platelets improved from 66 up to 113, creatinine increased from 1.6 up to 1.8, CO2 improved from 17 up to 22 after patient was started on bicarb. Third set of blood cultures growing gram positive organisms 01/12 patient is seen and examined at bedside, case discussed with the RN, no acute events overnight, remains on broad-spectrum IV antibiotics, alert oriented x3, following commands. Patient underwent DRAKE 01/11, tolerated well, LVEF 60- 65%, no left ventricle thrombus noted. Right ventricle is severely dilated. Left atrial appendage clot present. No mass or thrombus in the left atrium. No mass or thrombus in the right atrium. Aortic valve is trileaflet, opens well, non coronary cusp leaflet has vegetation that measures 1.8 x 1.1 cm. No mitral valve vegetation, no tricuspid valve vegetation, no pulmonic valve vegetation. Finding discussed with the patient, all questions answered. 01/13 patient is seen and examined at bedside, case discussed with the RN, no acute events overnight, during my visit the patient comfortably in bed, hemodynamically stable, alert oriented x3, getting IV antibiotics, denies chest pain, no shortness a breath, no nausea, no vomiting. 01/14 patient is seen and examined at bedside, downgraded to the medical floor, case discussed with the RN, patient hemodynamically stable, alert oriented x3, on heparin drip, no chest pain, no shortness a breath, no nausea, no vomiting. 01/15 patient is seen and examined bedside, case discussed with the RN, no acute events overnight. Patient with blood culture positive for Staphylococcus aureus, with urine culture positive for Klebsiella pneumoniae. Patient underwent DRAKE 01/11, tolerated well, LVEF 60-65%, no left ventricle thrombus noted. Right ventricle is severely dilated. Left atrial appendage clot present. No mass or thrombus in the left atrium. No mass or thrombus in the right atrium. Aortic valve is trileaflet, opens well, non coronary cusp leaflet has vegetation that measures 1.8 x 1.1 cm. No mitral valve vegetation, no tricuspid valve vegetation, no pulmonic valve vegetation. Continue heparin drip. Patient evaluated by Cardiothoracic surgeon. Medical management recommended for now. Re-evaluate possibility of aortic valve replacement in the near future. 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 Continue to follow Hematology input and recommendation Discharge plan discussed with case management, patient is uninsured, probably will have to remain admitted until completion of IV antibiotic course. 01/16 Pt seen at bedside, no acute events overnight. Most recent blood cultures are no growth to date. CV surgery suggesting aortic valve replacement may be feasible if patient recent blood cultures no growth for another 5 days. If valve replacement will not be done, patient will need to complete full course of IV antibiotics before discharge as he is unfunded. Vitals and labs are relatively unremarkable 01/17 patient seen at bedside, no acute events overnight. Most recent blood cultures are growing Gram-positive organism, we will continue with IV antibiotics. Antibiotics have been adjusted by Infectious Disease, surgery will be held. 01/18 patient seen at bedside, no acute events overnight. Continue with broad- spectrum antibiotics, we will follow up with cardiovascular surgery regarding possible surgery once infection better controlled. Discussed case with kayaking instructor who recommends heparin drip however patient we will need to be anticoagulated on discharge and given his own fundus status we will likely need to be started on warfarin. Vitals and labs relatively unremarkable. 01/19 patient seen at bedside, no acute events overnight. Continue with broad- spectrum antibiotics, we will follow up with cardiovascular surgery regarding possible surgery once infection better controlled. Patient started on eliquis. Hgb decreased from 9.6 down to 9.0, Vitals and labs otherwise relatively unremarkable. 01/20 patient seen at bedside, no acute events overnight. Continue with broad- spectrum antibiotics, we will follow up with cardiovascular surgery regarding possible surgery once infection better controlled. Patient started on eliquis. Hgb decreased from 9.0 down to 8.5, Vitals and labs otherwise relatively unremarkable. 01/21 Pt seen at bedside, no acute events overnight. Continue broad spectrum an tibiotics. Lab holiday today, continue with anticoagulation and broad spectrum antibiotics. REVIEW OF SYSTEMS 12 point review of systems negative unless noted in HPI PHYSICAL EXAM GENERAL APPEARANCE: The patient is awake, alert, and oriented, in no acute cardiopulmonary distress. NEUROLOGICAL: Cranial nerves II-XII grossly intact. Motor is 5/5 in bilateral upper and lower extremities proximal to distal. No sensory deficits. HEENT: Face is symmetric. Pupils are equal and reactive. Extraocular movements are intact. NECK: Supple. No JVD. No thyromegaly. No submental, submandibular, pre- /postauricular, occipital or supraclavicular lymphadenopathy. CHEST: Normal chest expansion. No Telemetry. LUNGS: Absence of any rales, rhonchi or any wheezing. CARDIOVASCULAR: Regular. S1 and S2 normal. No appreciable rubs, murmurs or gallops. ABDOMEN: Soft, nontender, and nondistended. There is no rebound, voluntary guarding, or rigidity. : Deferred. No Ortega. EXTREMITIES: Non-edematous and not cyanotic. No clubbing. Good capillary refill. SKIN: No skin breakdown. Vital Signs (last 8hr) Date Time Temp Pulse Resp B/P (MAP) Pulse Ox O2 Delivery O2 Flow Rate FiO2 01/21/25 16:00 98.1 77 16 110/71 100 Room Air 21 LABS: Laboratory: Test 01/21/25 20:08 01/21/25 17:25 01/21/25 04:44 01/20/25 04:21 Range/Units Whole Blood Glucose 247 H 70-110 MG/DL Gentamicin Level Peak 5.4 # 4.0-8.0 mcg/mL Iron Level 23 L 65-175 mcg/dL Total Iron Binding Capacity 117 L 250-450 mcg/dL Percent Iron Saturation 19.6 L 30-44 % White Blood Count 10.7 4.8-10.8 K/uL Red Blood Count 2.61 L 4.50-6.20 MIL/uL Hemoglobin 8.5 L 14.0-18.0 g/dL Hematocrit 24.9 L 42-54 % Mean Corpuscular Volume 95.4 79-99 fL Mean Corpuscular Hemoglobin 32.6 27.0-33.0 pg Mean Corpuscular Hemoglobin Concent 34.1 32.0-36.0 g/dL Red Cell Distribution Width 13.0 11.0-15.5 % Platelet Count 168 130-400 K/uL Mean Platelet Volume 11.0 H 7.5-10.5 fL Immature Granulocyte % (Auto) 0.7 0-1 % Neutrophils (%) (Auto) 71.7 40.0-77.0 % Lymphocytes (%) (Auto) 19.6 L 21.0-51.0 % Monocytes (%) (Auto) 7.5 3.0-13.0 % Eosinophils (%) (Auto) 0.4 0.0-8.0 % Basophils (%) (Auto) 0.1 0.0-5.0 % Neutrophils # (Auto) 7.7 1.8-7.7 K/uL Lymphocytes # (Auto) 2.1 1.0-4.8 K/uL Monocytes # (Auto) 0.8 0.1-1.0 K/uL Eosinophils # (Auto) 0.04 0.00-0.70 K/uL Basophils # (Auto) 0.01 0.00-0.20 K/uL Absolute Immature Granulocyte (auto 0.08 0-1 K/uL Nucleated Red Blood Cells 0.0 0.0-0.19 % Sodium Level 137 136-145 mmol/L Potassium Level 3.9 3.5-5.1 mmol/L Chloride Level 107 101-111 mmol/L Carbon Dioxide Level 23 21-32 mmol/L Blood Urea Nitrogen 22 H 7-18 mg/dL Creatinine 1.1 0.5-1.3 mg/dL Glomerular Filtration Rate Calc 85 >90 mL/min Random Glucose 163 H 70-105 mg/dL Total Calcium 7.6 L 8.5-10.1 mg/dL Gentamicin Level Trough 0.9 # 0.0-2.0 mcg/mL Current Medications Medications (Trade) Dose Ordered Sig/Asya Route PRN Reason Start Time Stop Time Status Last Admin Dose Admin Acetaminophen (TYLenol 325MG TAB) 650 mg Q6H PRN PO MILD PAIN (1-3) 01/16/25 17:30 02/15/25 17:29 01/20/25 10:42 650 MG Acetaminophen (TYLenol 325MG TAB) 650 mg Q6H PRN PO TEMPERATURE GREATER THAN 101.5 01/05/25 02:30 02/04/25 02:29 01/16/25 17:26 650 MG Apixaban (EliquIS) 5 mg BID PO 01/21/25 21:00 02/20/25 20:59 Apixaban (EliquIS) 5 mg BID PO 01/25/25 21:00 01/21/25 16:00 DC Apixaban (EliquIS) 10 mg BID PO 01/18/25 21:00 01/18/25 13:52 DC Apixaban (EliquIS) 10 mg BID PO 01/18/25 21:00 01/21/25 16:00 DC 01/21/25 08:45 10 MG Aspirin (Aspirin 81mg Chew Tab) 81 mg DAILY PO 01/05/25 09:00 01/05/25 09:53 DC Aspirin (Aspirin 81mg Ec Tab) 81 mg DAILY PO 01/16/25 09:00 02/15/25 08:59 01/21/25 08:43 81 MG Benzocaine (Cepacol Sore Throat Lozenge) 1 each Q4H PRN MM SORE THROAT 01/05/25 02:30 02/04/25 02:29 Calcium Gluconate 1 gm/Sodium Chloride 100 ml @ 0 mls/hr AD PRN IV Serum Calcium Correction 01/08/25 02:30 02/07/25 02:29 01/08/25 23:32 90 MLS/HR Cefazolin Sodium (Ancef) 2 gm Q12H IVPB 01/07/25 13:30 01/16/25 14:43 DC 01/16/25 01:12 2 GM Cefazolin Sodium (Ancef) 2 gm Q8H IVPB 01/16/25 21:30 01/17/25 13:22 DC 01/17/25 05:07 2 GM Chlordiazepoxide HCl (LIBrium 25 MG CAP) 25 mg Q8H PO 01/05/25 02:30 01/11/25 11:39 DC 01/10/25 22:23 25 MG Chlordiazepoxide HCl (LIBrium 25 MG CAP) 25 mg Q8H PRN PO WITHDRAWAL 01/11/25 12:00 01/12/25 02:29 DC Dexamethasone Sodium Phosphate 20 mg/Sodium Chloride 52 ml @ 100 mls/hr DAILY IV 01/09/25 09:00 02/08/25 08:59 01/21/25 08:43 100 MLS/HR Dexamethasone Sodium Phosphate 40 mg/Sodium Chloride 50 ml @ 100 mls/hr DAILY IV 01/06/25 14:00 01/08/25 12:16 DC 01/08/25 09:34 100 MLS/HR Dextrose (D50w) 50 ml AD PRN IV HYPOGLYCEMIA PROTOCOL 01/05/25 10:00 02/04/25 09:59 Doxycycline Hyclate 250 ml @ 125 mls/hr Q12H IV 01/05/25 10:00 01/06/25 21:05 DC 01/06/25 09:30 125 MLS/HR Doxycycline Hyclate 250 ml @ 125 mls/hr Q12H IV 01/06/25 21:30 01/16/25 14:23 DC 01/16/25 10:13 125 MLS/HR Fluconazole (DiFLUCan 100 mg TAB) 200 mg DAILY PO 01/12/25 09:00 02/11/25 08:59 01/21/25 08:44 200 MG Folic Acid (FOLic ACID 1 MG TABLET) 1 mg DAILY PO 01/07/25 10:30 02/06/25 10:29 01/21/25 08:44 1 MG Furosemide (LASix 20MG VIAL) 20 mg Q12H IV 01/07/25 16:00 01/11/25 00:56 DC 01/10/25 19:40 20 MG Gentamicin Sulfate 150 mg/ Sodium Chloride 100 ml @ 100 mls/hr Q12H IV 01/20/25 16:00 02/03/25 15:59 01/21/25 16:00 100 MLS/HR Gentamicin Sulfate/Sodium Chloride 100 ml @ 200 mls/hr Q12H IV 01/16/25 15:30 01/18/25 03:39 DC 01/17/25 16:00 200 MLS/HR Gentamicin Sulfate/Sodium Chloride 100 ml @ 200 mls/hr Q12H IV 01/18/25 04:00 01/20/25 06:41 DC 01/20/25 05:38 200 MLS/HR Glucagon (Glucagon 1mg Kit) 1 mg AD PRN IM HYPOGLYCEMIA PROTOCOL 01/05/25 10:00 02/04/25 09:59 Heparin Sodium/ Dextrose 250 ml @ 0 mls/hr PROTOCOL IV 01/11/25 14:30 01/18/25 13:28 DC 01/17/25 16:09 13.99 MLS/HR Hydralazine HCl (APRESOLine 20MG INJ) 5 mg Q6H PRN IV For:SBP above 160;DBP above 90 01/05/25 14:30 02/04/25 14:29 01/10/25 22:24 5 MG Hydralazine HCl (APRESOLine 20MG INJ) 10 mg Q6H PRN IV For:SBP above 160;DBP above 90 01/05/25 02:30 01/05/25 09:53 DC Insulin Glargine (LANtus 100 UNITS/ML 10 ML VIAL) 15 units Q12H SQ 01/07/25 21:30 01/09/25 23:18 DC 01/09/25 13:10 15 UNITS Insulin Glargine (LANtus 100 UNITS/ML 10 ML VIAL) 20 units DAILY SQ 01/14/25 09:00 02/13/25 08:59 01/21/25 08:40 20 UNITS Insulin Glargine (LANtus 100 UNITS/ML 10 ML VIAL) 20 units HS SQ 01/06/25 21:00 01/06/25 21:05 DC Insulin Glargine (LANtus 100 UNITS/ML 10 ML VIAL) 20 units HS SQ 01/06/25 21:30 01/07/25 10:24 DC 01/06/25 21:33 20 UNITS Insulin Glargine (LANtus 100 UNITS/ML 10 ML VIAL) 20 units Q12H SQ 01/10/25 09:30 01/10/25 12:58 DC Insulin Glargine (LANtus 100 UNITS/ML 10 ML VIAL) 25 units Q12H SQ 01/10/25 21:30 01/11/25 00:50 DC 01/10/25 22:19 25 UNITS Insulin Glargine (LANtus 100 UNITS/ML 10 ML VIAL) 30 units DAILY SQ 01/12/25 09:00 01/14/25 07:03 DC 01/12/25 11:25 30 UNITS Insulin Glargine (LANtus 100 UNITS/ML 10 ML VIAL) 30 units Q12H SQ 01/11/25 09:30 01/11/25 20:13 DC 01/11/25 10:50 30 UNITS Insulin Human Regular (humuLIN R 100 UNIT/ML 3ML) 5 unit TIDAC SQ 01/14/25 07:30 02/13/25 07:29 01/21/25 17:37 5 UNIT Insulin Human Regular (humuLIN R 100 UNIT/ML 3ML) 8 unit TIDAC SQ 01/11/25 07:30 01/14/25 07:03 DC 01/13/25 19:47 8 UNIT Insulin Human Regular (humuLIN R 100 UNIT/ML 3ML) INSULIN SLIDING SCAL... ACHS SQ 01/18/25 21:00 02/17/25 20:59 01/21/25 20:33 4 UNIT Insulin Human Regular (humuLIN R 100 UNIT/ML 3ML) INSULIN SLIDING SCAL... ACHS SQ 01/05/25 07:30 01/05/25 09:57 DC 01/05/25 07:59 16 UNIT Insulin Human Regular (humuLIN R 100 UNIT/ML 3ML) INSULIN SLIDING SCAL... ACHS SQ 01/05/25 11:30 01/06/25 16:43 DC 01/06/25 11:50 8 UNIT Insulin Human Regular (humuLIN R 100 UNIT/ML 3ML) INSULIN SLIDING SCAL... ACHS SQ 01/06/25 17:00 01/07/25 13:32 DC 01/06/25 17:17 16 UNIT Insulin Human Regular (humuLIN R 100 UNIT/ML 3ML) INSULIN SLIDING SCAL... Q4H SQ 01/11/25 02:00 01/11/25 23:59 DC 01/11/25 20:49 6 UNIT Insulin Human Regular (humuLIN R 100 UNIT/ML 3ML) INSULIN SLIDING SCAL... Q4H SQ 01/11/25 23:59 01/18/25 19:33 DC 01/18/25 16:59 4 UNIT Insulin Human Regular (humuLIN R 100 UNIT/ML 3ML) INSULIN SLIDING SCAL... Q6H6 SQ 01/10/25 18:00 01/11/25 00:50 DC 01/11/25 00:45 10 UNIT Insulin Human Regular 100 unit/ Sodium Chloride 100 ml @ 0 mls/hr AD PRN IV HYPERGLYCEMIA PROTOCOL 01/06/25 19:30 01/10/25 06:00 DC 01/09/25 19:10 16 MLS/HR Iron Sucrose (VenoFER) 300 mg Q24H IVP 01/21/25 15:00 01/21/25 15:29 DC Iron Sucrose 300 mg/Sodium Chloride 250 ml @ 166.667 mls/hr Q24H IV 01/21/25 16:00 01/21/25 17:22 DC Iron Sucrose 300 mg/Sodium Chloride 250 ml @ 166.667 mls/hr Q24H IV 01/21/25 19:30 02/20/25 19:29 Lactated Ringer's 1,000 ml @ 100 mls/hr Q10H IV 01/05/25 02:30 01/05/25 09:51 DC 01/05/25 02:30 100 MLS/HR Lactated Ringer's 1,000 ml @ 125 mls/hr Q8H IV 01/10/25 01:30 01/10/25 19:40 DC 01/10/25 13:07 125 MLS/HR Lactobacillus Rhamnosus ([facility] [employer]) 1 each DAILY PO 01/12/25 09:00 02/11/25 08:59 01/21/25 08:43 1 EACH Lorazepam (AtiVAN) 1 mg Q4H PRN IVP ALCOHOL WITHDRAWAL PROTOCOL 01/05/25 02:30 01/12/25 02:29 DC Magnesium Sulfate 50 ml @ 0 mls/hr PROTOCOL PRN IV h 01/05/25 02:30 02/04/25 02:29 01/18/25 08:34 25 MLS/HR Morphine Sulfate (morPHINE 2MG SYG) 2 mg Q4H PRN IVP SEVERE PAIN (7-10) 01/05/25 02:30 01/12/25 02:29 DC Multivitamins Therapeutic (Multivitamin Tablet) 1 tab DAILY PO 01/07/25 10:30 02/06/25 10:29 01/21/25 08:44 1 TAB Nafcillin Sodium (Nafcillin 2gm+ NS 100ml) 2 gm Q6H6 IV 01/17/25 18:00 01/27/25 17:59 01/21/25 17:35 2 GM Nicotine (Nicoderm) 21 mg DAILY TD 01/05/25 09:00 02/04/25 08:59 01/21/25 08:42 21 MG Nitroglycerin (Nitrostat) 0.4 mg AD PRN SL CHEST PAIN 01/05/25 02:30 02/04/25 02:29 Nystatin (NYSTatin 509849 UNIT/ML 5ML UDCUP) 100,000 UNITS 1 ML TO E... QID PO 01/18/25 09:00 02/17/25 08:59 01/21/25 17:35 2 ML Ondansetron HCl (zoFRAN 4MG INJ) 4 mg Q6H PRN IV NAUSEA/VOMITING 01/05/25 02:30 02/04/25 02:29 Pantoprazole Sodium (PROTonix 40MG TAB) 40 mg DAILY PO 01/05/25 09:00 02/04/25 08:59 01/21/25 08:44 40 MG Pharmacy Profile Note (Pharmacy Communication) 1 each ONCE MISC 01/16/25 14:30 01/16/25 15:12 DC Pharmacy Profile Note (Pharmacy Communication) 1 each PROTOCOL PRN MISC ETOH Withdrawal Score changes 01/05/25 02:30 01/12/25 02:29 DC Piperacillin Sod/ Tazobactam Sod (Zosyn 3.375gm+NS 50ml) 3.375 gm Q12H IV 01/05/25 02:30 01/07/25 13:24 DC 01/07/25 02:45 3.375 GM Potassium Phosphate 250 ml @ 42 mls/hr PROTOCOL PRN IV PROTOCOL 01/05/25 10:00 02/04/25 09:59 Potassium Chloride 100 ml @ 100 mls/hr AD PRN IV POTASSIUM PROTOCOL 01/05/25 02:30 01/07/25 10:12 DC Potassium Chloride 100 ml @ 100 mls/hr AD PRN IV POTASSIUM PROTOCOL 01/07/25 10:30 02/06/25 10:29 01/09/25 06:26 100 MLS/HR Potassium Chloride (K-Dur 10meq Sr Tab) 10 meq AD PRN PO POTASSIUM PROTOCOL 01/06/25 09:30 02/04/25 02:29 01/08/25 23:35 10 MEQ Potassium Chloride (K-Dur/Klor-Con 20meq) 10 meq AD PRN PO POTASSIUM PROTOCOL 01/05/25 02:30 01/06/25 09:12 DC 01/05/25 22:15 10 MEQ Potassium Chloride (K-Dur/Klor-Con 20meq) 10 meq AD PRN PO POTASSIUM PROTOCOL 01/07/25 10:30 01/07/25 10:12 DC Potassium Chloride (KCl 10% Elixir 20meq/15ml) 10 meq AD PRN PO POTASSIUM PROTOCOL 01/05/25 02:30 01/07/25 10:12 DC 01/06/25 17:16 10 MEQ Potassium Chloride (KCl 10% Elixir 20meq/15ml) 10 meq AD PRN PO POTASSIUM PROTOCOL 01/07/25 10:30 02/06/25 10:29 01/08/25 15:28 10 MEQ Sodium Bicarbonate (Sodium Bicarbonate) 1,300 mg BID PO 01/11/25 09:00 02/10/25 08:59 01/21/25 08:44 1,300 MG Sodium Chloride 1,000 ml @ 50 mls/hr Q20H IV 01/05/25 10:00 01/10/25 01:33 DC 01/09/25 05:56 50 MLS/HR Sodium Chloride 1,000 ml @ 75 mls/hr [id number] IV 01/11/25 01:00 01/11/25 13:45 DC 01/11/25 01:00 75 MLS/HR Triamcinolone Acetonide (Kenalog/ Aristocort) 1 APPLY TP BID BID TP 01/07/25 11:00 02/06/25 10:59 01/21/25 08:46 1 APPL Vancomycin HCl (Vancomycin Protocol) 1 each AD IV 01/07/25 12:30 01/07/25 12:40 DC DIAGNOSTICS / RADIOLOGY: [ ] ASSESSMENT: Severe sepsis, resolved POA Gram-positive bacteremia secondary to Staphylococcus aureus, POA Hypodense echogenic mobile vegetation to right coronary cusp leaflet on echocardiogram 01/05/2025 Left atrial appendage clot present. on DRAKE 01/11 non coronary cusp leaflet has vegetation that measures 1.8 x 1.1 cm. on DRAKE 01/11 Urinary tract infection, secondary to Klebsiella pneumoniae, POA Strep pharyngitis, POA ITP, POA Leukocytosis, POA Hyperlactatemia, POA Acute kidney injury, POA Hypokalemia, POA Hyponatremia, POA Hypomagnesemia, POA POA New onset Uncontrolled Diabetes mellitius type2, POA Elevated troponin, POA Cocaine abuse, POA Alcohol abuse, POA Tobacco dependence, POA Significant proteinuria, POA Diabetic nephropathy, POA Gallstones, POA Fidelina esophagitis on EGD 01/11 PLAN: -patient remains admitted to the medical floor. -continue the patient on broad-spectrum IV antibiotics -results of DRAKE reviewed, Left atrial appendage clot present. on DRAKE 01/11, aortic valve is trileaflet, opens well. Non coronary cusp leaflet has vegetation that measures 1.8 x 1.1 cm. on DRAKE 01/11 -continue heparin drip. Patient already evaluated by Cardiothoracic surgeon, continue medical management, we will re-evaluate possibility of aortic valve replacement in the near future. 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 Continue to follow Hematology input and recommendation -renal function slightly improved today, patient evaluated by sales operations coordinator, the patient with significant proteinuria on UA consistent with diabetic nephropathy. No acute need for any form of renal replacement therapy. -blood culture positive for Staphylococcus aureus. Urine culture positive for Klebsiella pneumoniae. Continue broad-spectrum IV antibiotics, continue to follow ID input recommendation. -case discussed with case management, patient to complete course of IV antibiotics likely during this hospitalization as the patient is uninsured. Disposition: Pending improvement in clinical condition. All questions answered time spent: > 35 min ARVIND NOLAND MD Jan 21, 2025 20:39
[2025-01-21] MEDS: APIXaban 5 MG TABLET PO SCH (20:53)
[2025-01-21] MEDS: IRON sUCROse COMPLEX 300 MG in 0.9% NACL 250ML 250 ML IV SCH (21:00)
[2025-01-21] MEDS: MELATONIN 5 MG TABLET PO PRN (23:18)
[2025-01-22] VITALS (8 sets, daily range): BP systolic 98–148; BP diastolic 61–77; PULSE 60–99; RESP 18–20; TEMP 97.6–98.4; O2SAT 99–100
[2025-01-22] MEDS ORDERED: GENTAMICIN SULFATE IV SCH (03:30)
[2025-01-22] MEDS ORDERED: [UNRECOGNIZED DRUG - OTHER] IV SCH (03:30)
[2025-01-22] MEDS: GENTAMICIN SULFATE IV SCH (04:00)
[2025-01-22] MEDS: [UNRECOGNIZED DRUG - OTHER] IV SCH (04:00)
--- NOTE | 2025-01-22 10:22 | PN ---
NEPHROLOGY PROGRESS NOTE Date/Time Patient Seen: Jan 22, 2025 Reason for Consultation: 10:22 SUBJECTIVE: This is a is a 44-year-old male presented to the hospital with acute renal failure. The patient initially admitted to the hospital and found to have endocarditis. The patient remains on the antibiotics. He has had acute on chronic renal failure in the hospital. Creatinine has improved and he is being seen as a followup visit for all of the above. Renal function electrolytes are stable. He continues with antibiotics. He remains on the antibiotics. Hemoglobin has remained stable Iron panel was noted, he has been started on IV iron. Patient currently complaining of lower extremity edema He was seen in the medical floor, ambulating in the hallway, in no acute distress Family at the bedside Prognosis remains guarded REVIEW OF SYSTEMS: GENERAL: Negative for any nausea, vomiting, fevers, chills, or weight loss. NEUROLOGIC: Negative for any blurry vision, blind spots, double vision, facial asymmetry, dysphagia, dysarthria, hemiparesis, hemisensory deficits, vertigo, ataxia. HEENT: Negative for any head trauma, neck trauma, neck stiffness, photophobia, phonophobia, sinusitis, rhinitis. CARDIAC: Negative for any chest pain, dyspnea on exertion, paroxysmal nocturnal dyspnea, peripheral edema. PULMONARY: Negative for any shortness of breath, wheezing, COPD, or TB exposure. GASTROINTESTINAL: Negative for any abdominal pain, nausea, vomiting, bright red blood per rectum, melena. GENITOURINARY: Negative for any dysuria, hematuria, incontinence. INTEGUMENTARY: Negative for any rashes, cuts, insect bites. RHEUMATOLOGIC: Negative for any joint pains, photosensitive rashes, history of vasculitis or kidney problems. HEMATOLOGIC: Negative for any abnormal bruising, frequent infections or bleeding. Vital Signs (last 8hr) Date Time Temp Pulse Resp B/P (MAP) Pulse Ox O2 Delivery O2 Flow Rate FiO2 01/07/25 16:22 99 Nasal Cannula* 2 28 01/07/25 15:46 97.0 69 20 154/55 98 Nasal Cannula 2.0 01/07/25 14:46 71 20 144/93 97 Room Air 01/07/25 13:47 73 12 163/89 98 Room Air 01/07/25 12:46 57 18 167/90 99 Room Air 01/07/25 11:46 68 15 133/80 97 Room Air 01/07/25 11:32 98 Room Air* 0 21 01/07/25 10:46 73 15 141/96 97 Room Air 01/07/25 10:01 98.4 68 14 143/86 99 Room Air 01/07/25 09:16 69 17 156/102 98 Room Air 01/07/25 09:01 66 13 156/98 99 Room Air 01/07/25 08:47 75 15 165/112 99 Room Air PHYSICAL EXAM: GENERAL: Alert and oriented x 3. No acute distress. Well-nourished. EYES: EOMI. Anicteric. HENT: Moist mucous membranes. No scleral icterus. No cervical lymphadenopathy. LUNGS: Clear to auscultation bilaterally. No accessory muscle use. CARDIOVASCULAR: Regular rate and rhythm. No murmur. No JVD. ABDOMEN: Soft, non-tender and non-distended. No palpable masses. EXTREMITIES: No edema. Non-tender.?SKIN: No rashes or lesions. Warm. NEUROLOGIC: No focal neurological deficits. CN II-XII grossly intact, but not individually tested. PSYCHIATRIC: Cooperative. Appropriate mood and affect. Current Medications Medications (Trade) Dose Ordered Sig/Asya Route PRN Reason Start Time Stop Time Status Last Admin Dose Admin Acetaminophen (TYLenol 325MG TAB) 650 mg Q6H PRN PO TEMPERATURE GREATER THAN 101.5 01/05/25 02:30 02/04/25 02:29 Aspirin (Aspirin 81mg Chew Tab) 81 mg DAILY PO 01/05/25 09:00 01/05/25 09:53 DC Benzocaine (Cepacol Sore Throat Lozenge) 1 each Q4H PRN MM SORE THROAT 01/05/25 02:30 02/04/25 02:29 Cefazolin Sodium (Ancef) 2 gm Q12H IVPB 01/07/25 13:30 01/17/25 13:29 01/07/25 14:05 2 GM Chlordiazepoxide HCl (LIBrium 25 MG CAP) 25 mg Q8H PO 01/05/25 02:30 01/12/25 02:29 01/07/25 09:44 25 MG Dexamethasone Sodium Phosphate 40 mg/Sodium Chloride 50 ml @ 100 mls/hr DAILY IV 01/06/25 14:00 01/10/25 09:29 01/07/25 10:54 100 MLS/HR Dextrose (D50w) 50 ml AD PRN IV HYPOGLYCEMIA PROTOCOL 01/05/25 10:00 02/04/25 09:59 Doxycycline Hyclate 250 ml @ 125 mls/hr Q12H IV 01/05/25 10:00 01/06/25 21:05 DC 01/06/25 09:30 125 MLS/HR Doxycycline Hyclate 250 ml @ 125 mls/hr Q12H IV 01/06/25 21:30 01/16/25 21:29 01/07/25 09:07 125 MLS/HR Folic Acid (FOLic ACID 1 MG TABLET) 1 mg DAILY PO 01/07/25 10:30 02/06/25 10:29 01/07/25 12:57 1 MG Furosemide (LASix 20MG VIAL) 20 mg Q12H IV 01/07/25 16:00 01/20/25 16:00 01/07/25 15:56 20 MG Glucagon (Glucagon 1mg Kit) 1 mg AD PRN IM HYPOGLYCEMIA PROTOCOL 01/05/25 10:00 02/04/25 09:59 Hydralazine HCl (APRESOLine 20MG INJ) 5 mg Q6H PRN IV For:SBP above 160;DBP above 90 01/05/25 14:30 02/04/25 14:29 Hydralazine HCl (APRESOLine 20MG INJ) 10 mg Q6H PRN IV For:SBP above 160;DBP above 90 01/05/25 02:30 01/05/25 09:53 DC Insulin Glargine (LANtus 100 UNITS/ML 10 ML VIAL) 15 units Q12H SQ 01/07/25 21:30 02/05/25 21:29 Insulin Glargine (LANtus 100 UNITS/ML 10 ML VIAL) 20 units HS SQ 01/06/25 21:00 01/06/25 21:05 DC Insulin Glargine (LANtus 100 UNITS/ML 10 ML VIAL) 20 units HS SQ 01/06/25 21:30 01/07/25 10:24 DC 01/06/25 21:33 20 UNITS Insulin Human Regular (humuLIN R 100 UNIT/ML 3ML) INSULIN SLIDING SCAL... ACHS SQ 01/05/25 07:30 01/05/25 09:57 DC 01/05/25 07:59 16 UNIT Insulin Human Regular (humuLIN R 100 UNIT/ML 3ML) INSULIN SLIDING SCAL... ACHS SQ 01/05/25 11:30 01/06/25 16:43 DC 01/06/25 11:50 8 UNIT Insulin Human Regular (humuLIN R 100 UNIT/ML 3ML) INSULIN SLIDING SCAL... ACHS SQ 01/06/25 17:00 01/07/25 13:32 DC 01/06/25 17:17 16 UNIT Insulin Human Regular 100 unit/ Sodium Chloride 100 ml @ 0 mls/hr AD PRN IV HYPERGLYCEMIA PROTOCOL 01/06/25 19:30 02/05/25 19:29 01/06/25 20:48 6 MLS/HR Lactated Ringer's 1,000 ml @ 100 mls/hr Q10H IV 01/05/25 02:30 01/05/25 09:51 DC 01/05/25 02:30 100 MLS/HR Lorazepam (AtiVAN) 1 mg Q4H PRN IVP ALCOHOL WITHDRAWAL PROTOCOL 01/05/25 02:30 01/12/25 02:29 Magnesium Sulfate 50 ml @ 0 mls/hr PROTOCOL PRN IV h 01/05/25 02:30 02/04/25 02:29 01/05/25 03:24 25 MLS/HR Morphine Sulfate (morPHINE 2MG SYG) 2 mg Q4H PRN IVP SEVERE PAIN (7-10) 01/05/25 02:30 01/12/25 02:29 Multivitamins Therapeutic (Multivitamin Tablet) 1 tab DAILY PO 01/07/25 10:30 02/06/25 10:29 01/07/25 10:39 1 TAB Nicotine (Nicoderm) 21 mg DAILY TD 01/05/25 09:00 02/04/25 08:59 01/07/25 10:00 21 MG Nitroglycerin (Nitrostat) 0.4 mg AD PRN SL CHEST PAIN 01/05/25 02:30 02/04/25 02:29 Ondansetron HCl (zoFRAN 4MG INJ) 4 mg Q6H PRN IV NAUSEA/VOMITING 01/05/25 02:30 02/04/25 02:29 Pantoprazole Sodium (PROTonix 40MG TAB) 40 mg DAILY PO 01/05/25 09:00 02/04/25 08:59 01/07/25 09:44 40 MG Pharmacy Profile Note (Pharmacy Communication) 1 each PROTOCOL PRN MISC ETOH Withdrawal Score changes 01/05/25 02:30 01/12/25 02:29 Piperacillin Sod/ Tazobactam Sod (Zosyn 3.375gm+NS 50ml) 3.375 gm Q12H IV 01/05/25 02:30 01/07/25 13:24 DC 01/07/25 02:45 3.375 GM Potassium Phosphate 250 ml @ 42 mls/hr PROTOCOL PRN IV PROTOCOL 01/05/25 10:00 02/04/25 09:59 Potassium Chloride 100 ml @ 100 mls/hr AD PRN IV POTASSIUM PROTOCOL 01/05/25 02:30 01/07/25 10:12 DC Potassium Chloride 100 ml @ 100 mls/hr AD PRN IV POTASSIUM PROTOCOL 01/07/25 10:30 02/06/25 10:29 Potassium Chloride (K-Dur 10meq Sr Tab) 10 meq AD PRN PO POTASSIUM PROTOCOL 01/06/25 09:30 02/04/25 02:29 01/07/25 15:51 10 MEQ Potassium Chloride (K-Dur/Klor-Con 20meq) 10 meq AD PRN PO POTASSIUM PROTOCOL 01/05/25 02:30 01/06/25 09:12 DC 01/05/25 22:15 10 MEQ Potassium Chloride (K-Dur/Klor-Con 20meq) 10 meq AD PRN PO POTASSIUM PROTOCOL 01/07/25 10:30 01/07/25 10:12 DC Potassium Chloride (KCl 10% Elixir 20meq/15ml) 10 meq AD PRN PO POTASSIUM PROTOCOL 01/05/25 02:30 01/07/25 10:12 DC 01/06/25 17:16 10 MEQ Potassium Chloride (KCl 10% Elixir 20meq/15ml) 10 meq AD PRN PO POTASSIUM PROTOCOL 01/07/25 10:30 02/06/25 10:29 Sodium Chloride 1,000 ml @ 50 mls/hr Q20H IV 01/05/25 10:00 02/04/25 09:59 01/07/25 15:38 150 MLS/HR Triamcinolone Acetonide (Kenalog/ Aristocort) 1 APPLY TP BID BID TP 01/07/25 11:00 02/06/25 10:59 01/07/25 15:00 1 APPL Vancomycin HCl (Vancomycin Protocol) 1 each AD IV 01/07/25 12:30 01/07/25 12:40 DC LABORATORY: [ ] Chemistry Labs: Test 01/22/25 05:20 01/21/25 04:44 Range/Units Whole Blood Glucose 128 H 70-110 MG/DL Iron Level 23 L 65-175 mcg/dL Total Iron Binding Capacity 117 L 250-450 mcg/dL Percent Iron Saturation 19.6 L 30-44 % DIAGNOSTICS / RADIOLOGY: REASON: e edea ORDERING PHYSICIAN: EVANS HILARIO MD PROCEDURE: VENOUS UNI - US VENOUS DOPPLER UNILATERAL US VENOUS DOPPLER UNILATERAL REASON: critical access hospital COMPARISON: None Technique: Left venous doppler ultrasound was performed with spectral analysis and color flow imaging technique. FINDINGS: There is a normal appearance of the common femoral, deep femoral, the profunda femoris and popliteal veins. Proximal calf veins appear normal as well. There is normal response to compression and augmentation. There is no evidence of deep venous thrombosis. IMPRESSION: 1. No evidence of deep venous thrombosis in the left lower extremity. 2. There is a small Matthews cyst behind the left knee, 1.7 x 2.6 cm. DICTATED BY: CHRISTI PEMBERTON MD DATE: 01/18/25 1507 REASON: Endocarditis ORDERING PHYSICIAN: GUERA STANLEY MD PROCEDURE: HEAD WWO - CT HEAD/BRAIN W/WO CONTRAST CT HEAD/BRAIN W/WO CONTRAST HISTORY: Endocarditis COMPARISON: None TECHNIQUE: Multiple sequential axial images of the head were obtained from the base of the skull through vertex. Patient was given 50 cc of Omnipaque through intravenous route. FINDINGS: The ventricles and extraventricular CSF spaces are nondilated for patient's age. There is no midline shift, mass effect or herniation. No acute intracranial bleed is seen. Visualized portion of the paranasal sinuses are grossly within normal limits. No abnormal enhancement is seen. IMPRESSION: 1. No acute intracranial bleed is seen. No abnormal enhancement is seen. CT was performed with one or more following dose reduction techniques: automated exposure control, adjustment of the mA and kv according to patient's size, or use of a iterative reconstruction technique. DICTATED BY: CAROL HOWARD MD DATE: 01/13/25 1340 REASON: Endocarditis ORDERING PHYSICIAN: GUERA STANLEY MD PROCEDURE: CHEST WWO - CT CHEST W/WO CONTRAST CT CHEST W/WO CONTRAST HISTORY: Endocarditis COMPARISON: None TECHNIQUE: Multiple sequential axial images of the chest were obtained from the thoracic inlet through upper abdomen. Patient was given 50 cc of Omnipaque through intravenous route. FINDINGS: There is no evidence of pulmonary nodule or parenchymal disease. There are bibasilar linear atelectasis. There are motion artifacts degrading the image quality. A small hiatal hernia is seen. No pleural effusion or pericardial effusion is seen. There is no evidence of pneumothorax. There are normal size mediastinal and hilar lymph nodes. The heart is not enlarged. Coronary arterial calcifications are seen. Degenerative changes of the thoracolumbar spine are present. There is no evidence of adrenal nodule. IMPRESSION: 1. No evidence of pulmonary nodule or effusion is seen. Bibasilar linear atelectasis. CT was performed with one or more following dose reduction techniques: automated exposure control, adjustment of the mA and kv according to patient's size, or use of a iterative reconstruction technique. DICTATED BY: CAROL HOWARD MD DATE: 01/13/25 1348 REASON: ASSESS for endorcarditis ORDERING PHYSICIAN: EVANS HILARIO MD PROCEDURE: ECHO DRAKE - ECHO DRAKE--TRANSESOPHAGEAL APPROVED REPORT EXAM: Transesophageal echocardiogram with color flow Doppler. INDICATION ICD: Endocarditis Reason For Test : Rule out endocarditis. PROCEDURE After obtaining informed consent, patient underwent transesophageal echo in the GI LAB Type of Sedation: General Anesthesia Sedation was administered by Please refer to medication administration record. . Sedation was achieved with Please refer to medication administration record. intravenously. Transesophageal probe was inserted and advanced into esophagus without difficulty by Evans Hilario MD. DRAKE was performed and images were obtained, probe was removed without complications. Throughout the procedure, the blood pressure, pulse oximetry, cardiac rhythm, and rate were monitored. Left Ventricle Left ventricular cavity is normal. There is mild asymetrical left ventricular wall thickness. LVEF is 60-65%. No left ventricle thrombus noted on this study. Right Ventricle The right ventricle is severely dilated. The right ventricular systolic function is normal. Atria Left atrial appendage clot present. The left atrium size is normal. There is no mass or thrombus suspected in the left atrium. No evidence of PFO/ASD by color doppler. The right atrium size is normal. There is no mass or thrombus suspected in the right atrium. Aortic Valve Aortic valve is trileaflet and open well. Non coronary cusp leaflet has vegetation that measures 1.81cm x 1.17cm. No aortic regurgitation is present. There is no aortic valvular stenosis. Mitral Valve The mitral valve is normal in structure and function. There is mild mitral valve regurgitation noted. No mitral valve vegetation. There is no mitral valve stenosis. Tricuspid Valve The tricuspid valve is normal in structure and function. There is no tricuspid valve regurgitation noted. No tricuspid valve vegetation. Pulmonic Valve The pulmonary valve is normal in structure and function. There is no pulmonic valvular regurgitation. No pulmonic valve vegetation. Great Vessels The aortic root is normal in size. Ascending aorta appers normal in size. Desc ending aorta appears normal in size. Pericardium The pericardium appears normal. Conclusion Left ventricular cavity is normal. There is mild asymetrical left ventricular wall thickness. LVEF is 60-65%. No left ventricle thrombus noted on this study. The right ventricle is severely dilated. The right ventricular systolic function is normal. Left atrial appendage clot present. The left atrium size is normal. There is no mass or thrombus suspected in the left atrium. The right atrium size is normal. There is no mass or thrombus suspected in the right atrium. No evidence of PFO/ASD by color doppler. Aortic valve is trileaflet and open well. Non coronary cusp leaflet has vegetation that measures 1.81cm x 1.17cm. No aortic regurgitation is present. There is no aortic valvular stenosis. There is mild mitral valve regurgitation noted. No mitral valve vegetation. No tricuspid valve vegetation. No pulmonic valve vegetation. DICTATED BY: EVANS HILARIO MD DATE: 01/11/25 0649 REASON: eval gallbladder, cholecystitis. ORDERING PHYSICIAN: HANNAH CARTER MD PROCEDURE: ABDOMEN - US ABDOMINAL COMPLETE ULTRASOUND ABDOMEN COMPLETE INDICATION: Abdominal Pain COMPARISON: 01/05/2025 CT abdomen and pelvis. FINDINGS: The liver is enlarged and increased in echogenicity; no focal lesion demonstrated. Length is measured at 21.6 cm Main portal vein is patent, and normal direction of vascular flow demonstrated. The common bile duct caliber measures 4.0 mm. Echogenic shadowing gallstones without associated pericholecystic fluid. No sonographic Dominguez's sign elicited by the ultrasound developing machine operator. Wall thickness measures 2.0 mm. The spleen is normal in size and echotexture. The spleen measures 9.8 cm. Visible portions of the pancreas appear unremarkable. The right kidney measures 12.6 x 6.3 x 6.6 cm,and is normal in echogenicity, without evidence for hydronephrosis or shadowing stones. The left kidney measures 12.8 x 8.1 x 6.0 cm,and is normal in echogenicity, without evidence for hydronephrosis or shadowing stones. Visible portions of the abdominal aorta are within normal limits. Visible portions of the inferior vena cava are within normal limits. No free fluid demonstrated. IMPRESSION: Cholelithiasis without sonographic evidence for cholecystitis. Findings suggesting hepatomegaly and hepatic steatosis or other underlying hepatocellular disease process. DICTATED BY: KIARA PETERSON MD DATE: 01/08/25 0955 REASON: sob ORDERING PHYSICIAN: KARMA LUNDBERG MD PROCEDURE: CXR1VW - CHEST 1VW PORTABLE CHEST RADIOGRAPH INDICATION: sob COMPARISON: 01/04/2025 FINDINGS: radiation monitor leads overlie the field of view. Heart size is normal. The pulmonary vascularity and jimmie appear normal. No abnormal pulmonary parenchymal opacity or consolidation identified. No significant pleural effusion noted. No pneumothorax detected. IMPRESSION: No radiographic evidence for any acute cardiopulmonary process. 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 COMPARISON: None. TECHNIQUE: Injected Dose: 7 mCi Tc-99m mebrofenin Initial dynamic images: 60 minutes Post-treatment: None. Additional images: 2 hour delay. FINDINGS: Normal hepatic transit time. Prompt excretion into the small bowel. There is no excretion into the gallbladder. . IMPRESSION: Acute cholecystitis. DICTATED BY: HANK AVILA DO DATE: 01/07/25 1402 REASON: positive troponin ORDERING PHYSICIAN: MAHOGANY CARBAJAL MD PROCEDURE: ECHO CMP - ECHO 2-D COMPLETE APPROVED REPORT EXAM: Two-dimensional and M-mode echocardiogram with Doppler and color Doppler. Study Details: Pt states fevers INDICATION ICD: Positive troponin 2D Dimensions RVDd 3.9 cm LVEF(%) 51.2 (>50%) LVED Vol(simp.) 87.0 mL IVSd 0.8 (0.7-1.1cm) FS(%) 26 % LVES Vol(simp.) 35.0 mL LVDd 5.3 (3.8-5.6cm) LA (2D) 4.2 (1.6-4.0cm) LVEF(%, simp.) 60 % PWd 1.3 (0.7-1.1cm) Ao Root(2D) 3.5 (2.0-3.7cm) LA ESV INDEX (4CH) 21.50 mL/m2 IVSs 1.0 cm LVOT diam 2.4 (1.8-2.4cm) LA ESV INDEX (2CH) 19.20 mL/m2 LVDs 3.9 (2.5-4.0cm) IVC diam 2.5 cm LA ESV INDEX (BP) 20.35 mL/m2 PWs 1.6 cm Deformation Strain Apical 4 -16.0 % Apical 2 -12.0 % Apical 3 -10.0 % Global Strain -13.0 % M-Mode Dimensions EPSS 0.6 cm LA (MM) 4.3 (1.6-4.0cm) Ao Root(MM) 3.8 (2.0-3.7cm) Aortic Valve AoV VTI 0.2 m Ao Mean GR 5.0 mmHg LVOT VTI 0.20 m JEANNE (VMAX) 3.9 cm2 JEANNE (VTI) 3.9 cm2 Mitral Valve MV E Vmax 117.5 cm/s DECEL Time 151 ms MV Mean GR 4 mmHg MV A Vmax 50.8 cm/s P 1/2 T 58 ms MVA (VTI) 2.7 cm2 E/A ratio 2.3 MVA (PHT) 3.8 cm2 TDI E/E' Medial 22.6 E/E' Lateral 19.6 Medial E' Peak V 5.20 cm/s Lateral E' Peak V 6.00 cm/s Pulmonary Valve PV VTI 0.15 m PV Mean GR 2 mmHg Tricuspid Valve RAP (EST) 8 mmHg RVSP 8.0 mmHg Left Ventricle The left ventricle is normal size. The There is normal left ventricular wall thickness. LVEF is 60-65%. Indeterminate diastolic dysfunction. Right Ventricle The right ventricle is normal size. The right ventricular systolic function is normal. Atria The left atrium size is normal. The right atrium size is normal. Aortic Valve The aortic valve is trileaflet and opens well. Right coronary cusp leaflet appears to have a vegeration. No aortic regurgitation is present. There is no aortic valvular stenosis. Mitral Valve The mitral valve is normal in structure. There is no mitral valve regurgitation noted. There is no mitral valve stenosis. Tricuspid Valve The tricuspid valve is normal in structure. There is no tricuspid valve regurgitation noted. Pulmonic Valve The pulmonary valve is normal in structure. There is no pulmonic valvular regurgitation. Great Vessels The aortic root is normal in size. IVC is dilated and collapses >50% with inspiration. Pericardium There is no pericardial effusion. Other Information Quality : Adequate Conclusion The left ventricle is normal size. LVEF is 60-65%. Indeterminate diastolic dysfunction. The right ventricle is normal size. The right ventricular systolic function is normal. The left atrium size is normal. The right atrium size is normal. The aortic valve is trileaflet and opens well. Right coronary cusp leaflet appears to have a vegeration. IVC is dilated and collapses >50% with inspiration. There is no pericardial effusion. DICTATED BY: EVANS HILARIO MD DATE: 01/05/25 1234 REASON: renal failure ORDERING PHYSICIAN: MAHOGANY CARBAJAL MD PROCEDURE: RENAL - US RENAL SONOGRAM Exam Type: US RENAL SONOGRAM Clinical Information: renal failure Comparison: None Findings: Examination shows normal renal size and echogenicity bilaterally. Preserved cortical thickness and corticomedullary junction region is seen. No hydronephrosis or calculi are seen. No renal masses are seen. There is no evidence of perinephric fluid on either side. No evidence of significant ureteral dilatation is seen. The right kidney measures 12.8 x 5.5 cm. The left kidney measures 12.9 x 6 cm. The urinary bladder is normal. No bladder masses, stones, or wall thickening is seen. Incidentally there is evidence of cholelithiasis. IMPRESSION: Normal renal anatomy bilaterally. DICTATED BY: JANIE JOHNSON MD DATE: 01/05/25 1241 .REASON: severe sepsis uti- evaluate for hydronephrosis /pyelonephritis ORDERING PHYSICIAN: NEW REAVES MD PROCEDURE: ABD PEL WO - CT ABDOMEN/PELVIS W/O CONTRAST CT ABDOMEN/PELVIS W/O CONTRAST HISTORY: UTI COMPARISON: 12/14/2022 TECHNIQUE: Multiple sequential axial images of the abdomen and pelvis were obtained from the dome of the diaphragm through symphysis pubis. Patient was not given contrast through intravenous route. Oral contrast was not given. FINDINGS: No pleural effusion is seen bilaterally. There is no evidence of parenchymal disease or pulmonary nodule of the visualized lower lungs. Degenerative changes of the thoracolumbar spine are present. The heart is not enlarged. Liver is enlarged with fatty changes measuring 21 cm. A small hiatal hernia is seen. Gallstones are seen in the gallbladder. Nonspecific bilateral perinephric fat stranding is seen. If there is clinical suspicion for pyelonephritis, urinalysis correlation may be helpful. The liver, spleen, adrenal glands and pancreas are unremarkable. There is no evidence of hydronephrosis bilaterally. No evidence of renal stone is seen. Fecal material is seen in the colon. There are normal size retroperitoneal and mesenteric lymph nodes. No ascites is seen. No CT evidence of acute appendicitis is seen. Pelvic sidewalls are symmetric bilaterally. Bladder is moderately distended. IMPRESSION: 1. Gallstones in the gallbladder. If there is clinical suspicion for pyelonephritis, urinalysis correlation may be helpful. CT was performed with one or more following dose reduction techniques: automated exposure control, adjustment of the mA and kv according to patient's size, or use of a iterative reconstruction technique. DICTATED BY: CAROL HOWARD MD DATE: 01/05/25 0142 REASON: chest pain CAD ORDERING PHYSICIAN: NEW REAVES MD PROCEDURE: CXR1VW - CHEST 1VW Exam Type: CHEST 1VW Clinical Information: chest pain CAD Comparison: None Findings: The lungs are clear of infiltrates. The heart is normal in size. The bony and soft tissue structures of the chest are unremarkable. Impression: Clear lungs. DICTATED BY: JANIE JOHNSON MD DATE: 01/05/25 0817 ASSESSMENT: Acute on chronic renal failure. Gram-positive bacteremia. Diabetes mellitus. Electrolyte abnormalities. PLAN: Labs, diagnostic, radiologic exams reviewed and interpreted by myself and supervising physician. We have reviewed external records in detail Continue with Venofer 300 mg IV daily x 3 doses. Require close monitoring of renal function and electrolytes Order CBC, CMP and electrolytes in am Continue with antibiotics BiPAP as necessary, for respiratory distress Monitor blood pressure adjust medication doses as needed Avoid hypotensive episodes May use Dilaudid 0.5 mg IV every 6 hours as needed for severe pain Monitor blood sugars Strict intake, output, and daily weight should be monitored Please renally adjust medications Avoid nephrotoxic and nonsteroidal drugs Avoid contrast if possible Will continue to monitor renal function, anemia, electrolytes Treatment plan discussed with patient Questions were answered We have discussed with the other team physicians in detail about the care plan We will continue to monitor the patient closely ATTESTATION BY PHYSICIAN I have seen and examined the patient. I reviewed the documentation, medical decision making, and treatment plan as noted by the mid-level provider above. I agree with the findings and plan of care. ANGELICA BOYER MD, [facility] [facility] Jan 22, 2025 10:22
--- NOTE | 2025-01-22 16:16 | PN ---
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 On admission he was found to have urinary tract infection/pyelonephritis sec ondary to Klebsiella pneumoniae, acute cholecystitis, group a strep positive, bacteremia secondary to Staphylococcus aureus confirmed by multiple blood cultures, endocarditis and left atrial appendage thrombus confirmed by DRAKE. He was started on anticoagulation with Eliquis due to the left atrial appendage thrombus. He is receiving IV antibiotics for management of bacterial endoc arditis. He underwent a venous Doppler of the left lower extremity 01/18/2025 which showed a small Matthews's cyst behind the left knee otherwise no evidence of DVT. He was subsequently developed bruising and pain to the posterior aspect of the left lower extremity which is worsened over the last 1-2 days. He states that he has chronic swelling to the left leg which is visibly larger than the right. Otherwise he denies new cardiac complaints. Assessment: 1. Bacterial endocarditis. 2. Bacteremia secondary to Staphylococcus aureus. 3. Left atrial appendage thrombus. 4. Urinary tract infection/acute pyelonephritis secondary to Klebsiella pneumoniae. 5. Acute cholecystitis. 6. Extensive bruising to the left lower extremity after undergoing recent sarah ous Doppler. 7. History of coronary artery disease status post PCI of the proximal LAD. 8. Anomalous origin of the right coronary artery. 8. History of cocaine abuse. Plan: 1. Continue IV antibiotics as directed by Infectious Disease for management of endocarditis and Staphylococcus aureus bacteremia. 2. He was started on Eliquis due to left atrial appendage thrombus. 3. He reports extensive bruising and pain to the left lower extremity after undergoing recent venous Doppler on 01/18/2025. For now we will hold Eliquis due to suspicion for hematoma. 4. We will order soft tissue ultrasound of the left lower extremity to assess for hematoma. 5. Otherwise continue aspirin 81 mg once daily due to history of coronary artery disease. Vitals/Labs Vital Signs Date Time Temp Pulse Resp B/P (MAP) Pulse Ox O2 Delivery O2 Flow Rate FiO2 01/22/25 11:56 98.1 73 20 114/65 100 Room Air 21 01/22/25 07:40 0 HAMZAH CURIEL Jan 22, 2025 16:16
--- NOTE | 2025-01-22 16:22 | PN ---
INFECTIOUS DISEASE PROGRESS NOTE Date of Service: Jan 22, 2025 SUBJECTIVE: 44-year-old male patient is being seen today at bedside. Patient is sitting in chair at this time. He is awake alert and oriented x3. denies fever or chills. Any pain at this time. Remains on antibiotics tolerating well. Continues with swelling to left lower extremity, a negative ultrasound venous Doppler noted. Diarrhea or constipation. No acute distress. No overnight events are reported. We will continue to follow patient closely. PHYSICAL EXAM EYES: Anicteric. Pupils equal and reactive. HENT: No oral thrush seen, moist Oral mucosa. NECK: Supple, no JVD or thyromegaly. LUNGS: Good air entry. No rales, no rhonchi. CARDIOVASCULAR: S1, S2 regular. No murmur heard. ABDOMEN: Obese but Soft. CENTRAL NERVOUS SYSTEM: Awake, alert, oriented x 3. SKIN: No rashes, no swelling. LYMPHATICS: No peripheral lymphadenopathy MUSCULOSKELETAL: No joint swelling, erythema or tenderness. Weakness. EXTREMITIES: No cyanosis or clubbing. Edematous. BACK: No deformity, no pressure ulcer. GENITOURINARY: No dysuria or hematuria. Vital Sign (Last 12 Hours) 01/22/25 01/22/25 01/22/25 07:15 07:40 11:56 Temp 98.1 98.1 Pulse 60 73 Resp 20 20 B/P (MAP) 104/62 114/65 Pulse Ox 99 99 100 O2 Delivery Room Air Room Air* Room Air O2 Flow Rate 0 FiO2 21 21 21 Intake & Output (last 24hrs) 01/21/25 01/21/25 01/22/25 15:00 23:00 07:00 Intake Total 590.0 ml Balance 590.0 ml LABS: Laboratory: Test 01/22/25 15:49 01/22/25 03:06 01/21/25 17:25 01/21/25 04:44 Range/Units Whole Blood Glucose 357 #H 70-110 MG/DL Gentamicin Level Trough 1.3 # 0.0-2.0 mcg/mL Gentamicin Level Peak 5.4 # 4.0-8.0 mcg/mL Iron Level 23 L 65-175 mcg/dL Total Iron Binding Capacity 117 L 250-450 mcg/dL Percent Iron Saturation 19.6 L 30-44 % ASSESSMENT: Methicillin-susceptible Staphylococcus aureus bacteremia status post DRAKE on 01/11/2025 with findings of aortic valve vegetation and Left atrial appendage clot. Aortic valve endocarditis on 2D echo. Urinary tract infection with Klebsiella pneumoniae. Chronic scalp folliculitis. Leukocytosis. Thrombocytopenia requiring platelet transfusion, resolving. Acute on chronic renal failure, resolving. Substance abuse, Cocaine and ETOH. Streptococcus viral infection. Uncontrolled diabetes mellitus. Debility. PLAN: Continue Nafcillin. Continue Gentamicin per pharmacy renal dosing. Patient will need 6 weeks of IV antibiotics. Will follow up on the repeat blood cultures. Currently on Eliquis. Avoid nephrotoxic medications. Continue GI prophylaxis. Network Program Manager following patient. Continue monitoring glucose levels. Pending Physical therapy evaluation. Continue diflucan This case was reviewed and discussed with my supervising physician and the above assessment and plan was formulated and agreed upon. PILO ROGEL Jan 22, 2025 16:22
--- NOTE | 2025-01-22 16:38 | PN ---
[facility] PROGRESS NOTE Date of Service: Jan 22, 2025 Time of Service: 16:37 SUBJECTIVE: [ ] The patient has been seen and examined at bedside, no acute events overnight, the patient is comfortable, cooperating well, alert oriented x3, he is on a CIWA protocol, not combative. BP 123/70, rest of vital signs unremarkable. Patient received transfusion of 1 unit of platelet, platelet count improved to 27, per barrel loader, likely due to splenomegaly. Echocardiogram reviewed, hypodense echogenic mobile vegetation to right coronary cusp leaflet, per cardiology once platelet count is greater than 50 1000 we will proceed with a a DRAKE. The pa tient also with a elevated blood sugar, continue insulin sliding scale, add insulin glargine 20 units subcutaneously at bedtime. Continue the patient on broad-spectrum IV antibiotics, continue to trend WBC in a.m.. 01/07 patient is seen and examined at bedside, case discussed with the RN, patient upgraded last night to the ICU to start insulin drip as blood glucose per sistently greater than 400. Patient started on dexamethasone IV by barrel loader do to ITP. Platelet count slightly better today at 41. Upon my initial encounter with the patient admitted that he drinks more than 18 beers per day. He was started on CIWA protocol, however has remained hemodynamically stable, comfortable in bed, no signs of withdrawal, cooperating fine. Not agitated, not combative. Toxicology screen positive for cocaine. Sodium level slowly improvi ng, today 132. Serology positive for influenza type A. The patient with significant proteinuria consistent with diabetic nephropathy, creatinine slowly trending down, no need for renal replacement therapy per general pediatrician. Patient with blood culture positive for Staphylococcus aureus, with urine culture positive for Klebsiella pneumoniae. We will add vancomycin IV pharmacy to dose. We will request Infectious Disease consultation. Echocardiogram reviewed, hypodense echogenic mobile vegetation to right coronary cusp leaflet, per cardiology once platelet count is greater than 50 1000 we will proceed with a a DRAKE. CT abdomen with gallstones in the gallbladder. HIDA scan pending 01/08 patient seen at bedside, no acute events overnight. He continues on insulin drip with an anion gap of 14, we will continue until the gap is closed. P latelets 54, we will follow up with Cardiology on optimal timing for DRAKE. Continue with IV antibiotics, further care per critical Care. 2/10 patient seen at bedside, no acute events overnight. Anion gap is still open at 14, we will continue IV insulin. Platelets improved from 54 up to 71, CO2 decreased from 17 down to 15. Cardiology planning on DRAKE today, we will follow up postprocedure. Repeat blood cultures are positive for Gram-positive organisms which further supports underlying endocarditis. Continue with IV antibiotics, appreciate Infectious Disease recommendations. He has been afebrile, hemodynamically stable saturating well on room air. WBC increased from 12.8 up to 13.6, BUN decreased from 93 down to 90, creatinine decreased from 2.5 down to 2.3, remainder of his labs are relatively unremarkable. 01/10 Pt seen at bedside, no acute events overnight. Pt with anion gap of 14, CO2 still low at 16. Repeat lactic acid was ordered, elevated at 4.8, will bolus patient and continue with IV fluids. DRAKE was rescheduled to today, will follow up with results.WBC improved from 13.6 down to 11.7, Hgb decreased from 15.1 down to 12.4, platelets decreased from 71 down to 66, this substantial decrease in all cell lines suggests hemodilution, creatinine decreased from 2.2 down to 1.4, also likely falsely depressed. 01/11 Pt seen at bedside, no acute events overnight. Pending EGD to assess for esophageal varices and DRAKE today, will follow up post procedure. Yesterday repeat lactic acid was elevated at 4.8, the patient was bolused and it improved down to 1.3. He has been afebrile, hemodynamically stable, saturating well on room air. WBC increased from 11.7 up to 12.5, platelets improved from 66 up to 113, creatinine increased from 1.6 up to 1.8, CO2 improved from 17 up to 22 after patient was started on bicarb. Third set of blood cultures growing gram positive organisms 01/12 patient is seen and examined at bedside, case discussed with the RN, no acute events overnight, remains on broad-spectrum IV antibiotics, alert oriented x3, following commands. Patient underwent DRAKE 01/11, tolerated well, LVEF 60- 65%, no left ventricle thrombus noted. Right ventricle is severely dilated. Left atrial appendage clot present. No mass or thrombus in the left atrium. No mass or thrombus in the right atrium. Aortic valve is trileaflet, opens well, non coronary cusp leaflet has vegetation that measures 1.8 x 1.1 cm. No mitral valve vegetation, no tricuspid valve vegetation, no pulmonic valve vegetation. Finding discussed with the patient, all questions answered. 01/13 patient is seen and examined at bedside, case discussed with the RN, no acute events overnight, during my visit the patient comfortably in bed, hemodynamically stable, alert oriented x3, getting IV antibiotics, denies chest pain, no shortness a breath, no nausea, no vomiting. 01/14 patient is seen and examined at bedside, downgraded to the medical floor, case discussed with the RN, patient hemodynamically stable, alert oriented x3, on heparin drip, no chest pain, no shortness a breath, no nausea, no vomiting. 01/15 patient is seen and examined bedside, case discussed with the RN, no acute events overnight. Patient with blood culture positive for Staphylococcus aureus, with urine culture positive for Klebsiella pneumoniae. Patient underwent DRAKE 01/11, tolerated well, LVEF 60-65%, no left ventricle thrombus noted. Right ventricle is severely dilated. Left atrial appendage clot present. No mass or thrombus in the left atrium. No mass or thrombus in the right atrium. Aortic valve is trileaflet, opens well, non coronary cusp leaflet has vegetation that measures 1.8 x 1.1 cm. No mitral valve vegetation, no tricuspid valve vegetation, no pulmonic valve vegetation. Continue heparin drip. Patient evaluated by Cardiothoracic surgeon. Medical management recommended for now. Re-evaluate possibility of aortic valve replacement in the near future. 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 Continue to follow Hematology input and recommendation Discharge plan discussed with case management, patient is uninsured, probably will have to remain admitted until completion of IV antibiotic course. 01/16 Pt seen at bedside, no acute events overnight. Most recent blood cultures are no growth to date. CV surgery suggesting aortic valve replacement may be feasible if patient recent blood cultures no growth for another 5 days. If valve replacement will not be done, patient will need to complete full course of IV antibiotics before discharge as he is unfunded. Vitals and labs are relatively unremarkable 01/17 patient seen at bedside, no acute events overnight. Most recent blood cultures are growing Gram-positive organism, we will continue with IV antibiotics. Antibiotics have been adjusted by Infectious Disease, surgery will be held. 01/18 patient seen at bedside, no acute events overnight. Continue with broad- spectrum antibiotics, we will follow up with cardiovascular surgery regarding possible surgery once infection better controlled. Discussed case with barrel loader who recommends heparin drip however patient we will need to be anticoagulated on discharge and given his own fundus status we will likely need to be started on warfarin. Vitals and labs relatively unremarkable. 01/19 patient seen at bedside, no acute events overnight. Continue with broad- spectrum antibiotics, we will follow up with cardiovascular surgery regarding possible surgery once infection better controlled. Patient started on eliquis. Hgb decreased from 9.6 down to 9.0, Vitals and labs otherwise relatively unremarkable. 01/20 patient seen at bedside, no acute events overnight. Continue with broad- spectrum antibiotics, we will follow up with cardiovascular surgery regarding possible surgery once infection better controlled. Patient started on eliquis. Hgb decreased from 9.0 down to 8.5, Vitals and labs otherwise relatively unremarkable. 01/21 Pt seen at bedside, no acute events overnight. Continue broad spectrum an tibiotics. Lab holiday today, continue with anticoagulation and broad spectrum antibiotics. 01/22 Pt seen at bedside, no acute events overnight. Continue broad spectrum antibiotics. Lab holiday today, continue with anticoagulation and broad spectrum antibiotics. REVIEW OF SYSTEMS 12 point review of systems negative unless noted in HPI PHYSICAL EXAM GENERAL APPEARANCE: The patient is awake, alert, and oriented, in no acute cardiopulmonary distress. NEUROLOGICAL: Cranial nerves II-XII grossly intact. Motor is 5/5 in bilateral upper and lower extremities proximal to distal. No sensory deficits. HEENT: Face is symmetric. Pupils are equal and reactive. Extraocular movements are intact. NECK: Supple. No JVD. No thyromegaly. No submental, submandibular, pre- /postauricular, occipital or supraclavicular lymphadenopathy. CHEST: Normal chest expansion. No Telemetry. LUNGS: Absence of any rales, rhonchi or any wheezing. CARDIOVASCULAR: Regular. S1 and S2 normal. No appreciable rubs, murmurs or gallops. ABDOMEN: Soft, nontender, and nondistended. There is no rebound, voluntary guarding, or rigidity. : Deferred. No Ortega. EXTREMITIES: Non-edematous and not cyanotic. No clubbing. Good capillary refill. SKIN: No skin breakdown. Vital Signs (last 8hr) Date Time Temp Pulse Resp B/P (MAP) Pulse Ox O2 Delivery O2 Flow Rate FiO2 01/22/25 11:56 98.1 73 20 114/65 100 Room Air 21 LABS: Laboratory: Test 01/22/25 15:49 01/22/25 03:06 01/21/25 17:25 01/21/25 04:44 Range/Units Whole Blood Glucose 357 #H 70-110 MG/DL Gentamicin Level Trough 1.3 # 0.0-2.0 mcg/mL Gentamicin Level Peak 5.4 # 4.0-8.0 mcg/mL Iron Level 23 L 65-175 mcg/dL Total Iron Binding Capacity 117 L 250-450 mcg/dL Percent Iron Saturation 19.6 L 30-44 % Current Medications Medications (Trade) Dose Ordered Sig/Asya Route PRN Reason Start Time Stop Time Status Last Admin Dose Admin Acetaminophen (TYLenol 325MG TAB) 650 mg Q6H PRN PO MILD PAIN (1-3) 01/16/25 17:30 02/15/25 17:29 01/22/25 12:30 650 MG Acetaminophen (TYLenol 325MG TAB) 650 mg Q6H PRN PO TEMPERATURE GREATER THAN 101.5 01/05/25 02:30 02/04/25 02:29 01/16/25 17:26 650 MG Apixaban (EliquIS) 5 mg BID PO 01/21/25 21:00 02/20/25 20:59 Hold 01/22/25 09:02 5 MG Apixaban (EliquIS) 5 mg BID PO 01/25/25 21:00 01/21/25 16:00 DC Apixaban (EliquIS) 10 mg BID PO 01/18/25 21:00 01/18/25 13:52 DC Apixaban (EliquIS) 10 mg BID PO 01/18/25 21:00 01/21/25 16:00 DC 01/21/25 08:45 10 MG Aspirin (Aspirin 81mg Chew Tab) 81 mg DAILY PO 01/05/25 09:00 01/05/25 09:53 DC Aspirin (Aspirin 81mg Ec Tab) 81 mg DAILY PO 01/16/25 09:00 02/15/25 08:59 01/22/25 09:02 81 MG Benzocaine (Cepacol Sore Throat Lozenge) 1 each Q4H PRN MM SORE THROAT 01/05/25 02:30 02/04/25 02:29 Calcium Gluconate 1 gm/Sodium Chloride 100 ml @ 0 mls/hr AD PRN IV Serum Calcium Correction 01/08/25 02:30 02/07/25 02:29 01/08/25 23:32 90 MLS/HR Cefazolin Sodium (Ancef) 2 gm Q12H IVPB 01/07/25 13:30 01/16/25 14:43 DC 01/16/25 01:12 2 GM Cefazolin Sodium (Ancef) 2 gm Q8H IVPB 01/16/25 21:30 01/17/25 13:22 DC 01/17/25 05:07 2 GM Chlordiazepoxide HCl (LIBrium 25 MG CAP) 25 mg Q8H PO 01/05/25 02:30 01/11/25 11:39 DC 01/10/25 22:23 25 MG Chlordiazepoxide HCl (LIBrium 25 MG CAP) 25 mg Q8H PRN PO WITHDRAWAL 01/11/25 12:00 01/12/25 02:29 DC Dexamethasone Sodium Phosphate 20 mg/Sodium Chloride 52 ml @ 100 mls/hr DAILY IV 01/09/25 09:00 02/08/25 08:59 01/22/25 09:02 100 MLS/HR Dexamethasone Sodium Phosphate 40 mg/Sodium Chloride 50 ml @ 100 mls/hr DAILY IV 01/06/25 14:00 01/08/25 12:16 DC 01/08/25 09:34 100 MLS/HR Dextrose (D50w) 50 ml AD PRN IV HYPOGLYCEMIA PROTOCOL 01/05/25 10:00 02/04/25 09:59 Doxycycline Hyclate 250 ml @ 125 mls/hr Q12H IV 01/05/25 10:00 01/06/25 21:05 DC 01/06/25 09:30 125 MLS/HR Doxycycline Hyclate 250 ml @ 125 mls/hr Q12H IV 01/06/25 21:30 01/16/25 14:23 DC 01/16/25 10:13 125 MLS/HR Fluconazole (DiFLUCan 100 mg TAB) 200 mg DAILY PO 01/12/25 09:00 02/11/25 08:59 01/22/25 09:02 200 MG Folic Acid (FOLic ACID 1 MG TABLET) 1 mg DAILY PO 01/07/25 10:30 02/06/25 10:29 01/22/25 09:01 1 MG Furosemide (LASix 20MG VIAL) 20 mg Q12H IV 01/07/25 16:00 01/11/25 00:56 DC 01/10/25 19:40 20 MG Gentamicin Sulfate 150 mg/ Sodium Chloride 100 ml @ 100 mls/hr Q12H IV 01/20/25 16:00 01/22/25 03:27 DC 01/21/25 16:00 100 MLS/HR Gentamicin Sulfate 90 mg/ Sodium Chloride 50 ml @ 100 mls/hr Q8H IV 01/22/25 03:30 01/22/25 03:30 DC Gentamicin Sulfate 90 mg/ Sodium Chloride 50 ml @ 100 mls/hr Q8H IV 01/22/25 04:00 02/05/25 03:59 01/22/25 12:14 100 MLS/HR Gentamicin Sulfate/Sodium Chloride 100 ml @ 200 mls/hr Q12H IV 01/16/25 15:30 01/18/25 03:39 DC 01/17/25 16:00 200 MLS/HR Gentamicin Sulfate/Sodium Chloride 100 ml @ 200 mls/hr Q12H IV 01/18/25 04:00 01/20/25 06:41 DC 01/20/25 05:38 200 MLS/HR Glucagon (Glucagon 1mg Kit) 1 mg AD PRN IM HYPOGLYCEMIA PROTOCOL 01/05/25 10:00 02/04/25 09:59 Heparin Sodium/ Dextrose 250 ml @ 0 mls/hr PROTOCOL IV 01/11/25 14:30 01/18/25 13:28 DC 01/17/25 16:09 13.99 MLS/HR Hydralazine HCl (APRESOLine 20MG INJ) 5 mg Q6H PRN IV For:SBP above 160;DBP above 90 01/05/25 14:30 02/04/25 14:29 01/10/25 22:24 5 MG Hydralazine HCl (APRESOLine 20MG INJ) 10 mg Q6H PRN IV For:SBP above 160;DBP above 90 01/05/25 02:30 01/05/25 09:53 DC Insulin Glargine (LANtus 100 UNITS/ML 10 ML VIAL) 15 units Q12H SQ 01/07/25 21:30 01/09/25 23:18 DC 01/09/25 13:10 15 UNITS Insulin Glargine (LANtus 100 UNITS/ML 10 ML VIAL) 20 units DAILY SQ 01/14/25 09:00 02/13/25 08:59 01/22/25 09:19 20 UNITS Insulin Glargine (LANtus 100 UNITS/ML 10 ML VIAL) 20 units HS SQ 01/06/25 21:00 01/06/25 21:05 DC Insulin Glargine (LANtus 100 UNITS/ML 10 ML VIAL) 20 units HS SQ 01/06/25 21:30 01/07/25 10:24 DC 01/06/25 21:33 20 UNITS Insulin Glargine (LANtus 100 UNITS/ML 10 ML VIAL) 20 units Q12H SQ 01/10/25 09:30 01/10/25 12:58 DC Insulin Glargine (LANtus 100 UNITS/ML 10 ML VIAL) 25 units Q12H SQ 01/10/25 21:30 01/11/25 00:50 DC 01/10/25 22:19 25 UNITS Insulin Glargine (LANtus 100 UNITS/ML 10 ML VIAL) 30 units DAILY SQ 01/12/25 09:00 01/14/25 07:03 DC 01/12/25 11:25 30 UNITS Insulin Glargine (LANtus 100 UNITS/ML 10 ML VIAL) 30 units Q12H SQ 01/11/25 09:30 01/11/25 20:13 DC 01/11/25 10:50 30 UNITS Insulin Human Regular (humuLIN R 100 UNIT/ML 3ML) 5 unit TIDAC SQ 01/14/25 07:30 02/13/25 07:29 01/22/25 06:22 5 UNIT Insulin Human Regular (humuLIN R 100 UNIT/ML 3ML) 8 unit TIDAC SQ 01/11/25 07:30 01/14/25 07:03 DC 01/13/25 19:47 8 UNIT Insulin Human Regular (humuLIN R 100 UNIT/ML 3ML) INSULIN SLIDING SCAL... ACHS SQ 01/18/25 21:00 02/17/25 20:59 01/21/25 20:33 4 UNIT Insulin Human Regular (humuLIN R 100 UNIT/ML 3ML) INSULIN SLIDING SCAL... ACHS SQ 01/05/25 07:30 01/05/25 09:57 DC 01/05/25 07:59 16 UNIT Insulin Human Regular (humuLIN R 100 UNIT/ML 3ML) INSULIN SLIDING SCAL... ACHS SQ 01/05/25 11:30 01/06/25 16:43 DC 01/06/25 11:50 8 UNIT Insulin Human Regular (humuLIN R 100 UNIT/ML 3ML) INSULIN SLIDING SCAL... ACHS SQ 01/06/25 17:00 01/07/25 13:32 DC 01/06/25 17:17 16 UNIT Insulin Human Regular (humuLIN R 100 UNIT/ML 3ML) INSULIN SLIDING SCAL... Q4H SQ 01/11/25 02:00 01/11/25 23:59 DC 01/11/25 20:49 6 UNIT Insulin Human Regular (humuLIN R 100 UNIT/ML 3ML) INSULIN SLIDING SCAL... Q4H SQ 01/11/25 23:59 01/18/25 19:33 DC 01/18/25 16:59 4 UNIT Insulin Human Regular (humuLIN R 100 UNIT/ML 3ML) INSULIN SLIDING SCAL... Q6H6 SQ 01/10/25 18:00 01/11/25 00:50 DC 01/11/25 00:45 10 UNIT Insulin Human Regular 100 unit/ Sodium Chloride 100 ml @ 0 mls/hr AD PRN IV HYPERGLYCEMIA PROTOCOL 01/06/25 19:30 01/10/25 06:00 DC 01/09/25 19:10 16 MLS/HR Iron Sucrose (VenoFER) 300 mg Q24H IVP 01/21/25 15:00 01/21/25 15:29 DC Iron Sucrose 300 mg/Sodium Chloride 250 ml @ 166.667 mls/hr Q24H IV 01/21/25 16:00 01/21/25 17:22 DC Iron Sucrose 300 mg/Sodium Chloride 250 ml @ 166.667 mls/hr Q24H IV 01/21/25 19:30 01/21/25 20:57 DC Iron Sucrose 300 mg/Sodium Chloride 250 ml @ 166.667 mls/hr Q24H IV 01/21/25 21:00 02/20/25 20:59 01/21/25 21:00 166.667 MLS/HR Lactated Ringer's 1,000 ml @ 100 mls/hr Q10H IV 01/05/25 02:30 01/05/25 09:51 DC 01/05/25 02:30 100 MLS/HR Lactated Ringer's 1,000 ml @ 125 mls/hr Q8H IV 01/10/25 01:30 01/10/25 19:40 DC 01/10/25 13:07 125 MLS/HR Lactobacillus Rhamnosus ([facility]) 1 each DAILY PO 01/12/25 09:00 02/11/25 08:59 01/22/25 09:01 1 EACH Lorazepam (AtiVAN) 1 mg Q4H PRN IVP ALCOHOL WITHDRAWAL PROTOCOL 01/05/25 02:30 01/12/25 02:29 DC Magnesium Sulfate 50 ml @ 0 mls/hr PROTOCOL PRN IV h 01/05/25 02:30 02/04/25 02:29 01/18/25 08:34 25 MLS/HR Melatonin (Melatonin) 10 mg HS PRN PO INSOMNIA 01/21/25 21:30 02/20/25 21:29 01/21/25 23:18 10 MG Morphine Sulfate (morPHINE 2MG SYG) 2 mg Q4H PRN IVP SEVERE PAIN (7-10) 01/05/25 02:30 01/12/25 02:29 DC Multivitamins Therapeutic (Multivitamin Tablet) 1 tab DAILY PO 01/07/25 10:30 02/06/25 10:29 01/22/25 09:01 1 TAB Nafcillin Sodium (Nafcillin 2gm+ NS 100ml) 2 gm Q6H6 IV 01/17/25 18:00 01/27/25 17:59 01/22/25 12:14 2 GM Nicotine (Nicoderm) 21 mg DAILY TD 01/05/25 09:00 02/04/25 08:59 01/22/25 09:02 21 MG Nitroglycerin (Nitrostat) 0.4 mg AD PRN SL CHEST PAIN 01/05/25 02:30 02/04/25 02:29 Nystatin (NYSTatin 769697 UNIT/ML 5ML UDCUP) 100,000 UNITS 1 ML TO E... QID PO 01/18/25 09:00 02/17/25 08:59 01/22/25 12:14 2 ML Ondansetron HCl (zoFRAN 4MG INJ) 4 mg Q6H PRN IV NAUSEA/VOMITING 01/05/25 02:30 02/04/25 02:29 Pantoprazole Sodium (PROTonix 40MG TAB) 40 mg DAILY PO 01/05/25 09:00 02/04/25 08:59 01/22/25 09:01 40 MG Pharmacy Profile Note (Pharmacy Communication) 1 each ONCE MISC 01/16/25 14:30 01/16/25 15:12 DC Pharmacy Profile Note (Pharmacy Communication) 1 each PROTOCOL PRN MISC ETOH Withdrawal Score changes 01/05/25 02:30 01/12/25 02:29 DC Piperacillin Sod/ Tazobactam Sod (Zosyn 3.375gm+NS 50ml) 3.375 gm Q12H IV 01/05/25 02:30 01/07/25 13:24 DC 01/07/25 02:45 3.375 GM Potassium Phosphate 250 ml @ 42 mls/hr PROTOCOL PRN IV PROTOCOL 01/05/25 10:00 02/04/25 09:59 Potassium Chloride 100 ml @ 100 mls/hr AD PRN IV POTASSIUM PROTOCOL 01/05/25 02:30 01/07/25 10:12 DC Potassium Chloride 100 ml @ 100 mls/hr AD PRN IV POTASSIUM PROTOCOL 01/07/25 10:30 02/06/25 10:29 01/09/25 06:26 100 MLS/HR Potassium Chloride (K-Dur 10meq Sr Tab) 10 meq AD PRN PO POTASSIUM PROTOCOL 01/06/25 09:30 02/04/25 02:29 01/08/25 23:35 10 MEQ Potassium Chloride (K-Dur/Klor-Con 20meq) 10 meq AD PRN PO POTASSIUM PROTOCOL 01/05/25 02:30 01/06/25 09:12 DC 01/05/25 22:15 10 MEQ Potassium Chloride (K-Dur/Klor-Con 20meq) 10 meq AD PRN PO POTASSIUM PROTOCOL 01/07/25 10:30 01/07/25 10:12 DC Potassium Chloride (KCl 10% Elixir 20meq/15ml) 10 meq AD PRN PO POTASSIUM PROTOCOL 01/05/25 02:30 01/07/25 10:12 DC 01/06/25 17:16 10 MEQ Potassium Chloride (KCl 10% Elixir 20meq/15ml) 10 meq AD PRN PO POTASSIUM PROTOCOL 01/07/25 10:30 02/06/25 10:29 01/08/25 15:28 10 MEQ Sodium Bicarbonate (Sodium Bicarbonate) 1,300 mg BID PO 01/11/25 09:00 02/10/25 08:59 01/22/25 09:01 1,300 MG Sodium Chloride 1,000 ml @ 50 mls/hr Q20H IV 01/05/25 10:00 01/10/25 01:33 DC 01/09/25 05:56 50 MLS/HR Sodium Chloride 1,000 ml @ 75 mls/hr [id number] IV 01/11/25 01:00 01/11/25 13:45 DC 01/11/25 01:00 75 MLS/HR Triamcinolone Acetonide (Kenalog/ Aristocort) 1 APPLY TP BID BID TP 01/07/25 11:00 02/06/25 10:59 01/22/25 09:10 1 APPL Vancomycin HCl (Vancomycin Protocol) 1 each AD IV 01/07/25 12:30 01/07/25 12:40 DC DIAGNOSTICS / RADIOLOGY: [ ] ASSESSMENT: Severe sepsis, resolved POA Gram-positive bacteremia secondary to Staphylococcus aureus, POA Hypodense echogenic mobile vegetation to right coronary cusp leaflet on echocardiogram 01/05/2025 Left atrial appendage clot present. on DRAKE 01/11 non coronary cusp leaflet has vegetation that measures 1.8 x 1.1 cm. on DRAKE 0 01/11 Urinary tract infection, secondary to Klebsiella pneumoniae, POA Strep pharyngitis, POA ITP, POA Leukocytosis, POA Hyperlactatemia, POA Acute kidney injury, POA Hypokalemia, POA Hyponatremia, POA Hypomagnesemia, POA POA New onset Uncontrolled Diabetes mellitius type2, POA Elevated troponin, POA Cocaine abuse, POA Alcohol abuse, POA Tobacco dependence, POA Significant proteinuria, POA Diabetic nephropathy, POA Gallstones, POA Fidelina esophagitis on EGD 01/11 PLAN: -patient remains admitted to the medical floor. -continue the patient on broad-spectrum IV antibiotics -results of DRAKE reviewed, Left atrial appendage clot present. on DRAKE 01/11, aortic valve is trileaflet, opens well. Non coronary cusp leaflet has vegetation that measures 1.8 x 1.1 cm. on DRAKE 01/11 -continue heparin drip. Patient already evaluated by Cardiothoracic surgeon, continue medical management, we will re-evaluate possibility of aortic valve replacement in the near future. 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 Continue to follow Hematology input and recommendation -renal function slightly improved today, patient evaluated by general pediatrician, the patient with significant proteinuria on UA consistent with diabetic nephropathy. No acute need for any form of renal replacement therapy. -blood culture positive for Staphylococcus aureus. Urine culture positive for Klebsiella pneumoniae. Continue broad-spectrum IV antibiotics, continue to follow ID input recommendation. -case discussed with case management, patient to complete course of IV antibiotics likely during this hospitalization as the patient is uninsured. Disposition: Pending improvement in clinical condition. All questions answered time spent: > 35 min ARVIND NOLAND MD Jan 22, 2025 16:38
--- NOTE | 2025-01-22 22:30 | HMCIMG ---
US SOFT TISSUE LOWER EXTREMITY REASON: extensive bruising. COMPARISON: None TECHNIQUE: Left calf ultrasound study was performed. FINDINGS: Soft tissue swelling is seen. No mass lesion or abnormal fluid collection is seen. IMPRESSION: Left calf soft tissue swelling.
[2025-01-23] VITALS (9 sets, daily range): BP systolic 102–135; BP diastolic 55–68; PULSE 71–94; RESP 18–22; TEMP 97.8–98.7; O2SAT 96–100
--- NOTE | 2025-01-23 01:34 | NUR ---
NURSING NOTES PT. C/O OF PAIN AND NUMBNESS TO RIGHT UPPER ARM, WHERE THE MIDLINE WAS INSERTED. IV ANTIBIOTIC STOPPED AND DISCONNECTED, MIDLINE ASSESSED. BRUISE NOTED AT THE INSERTION SITE. LINE FLUSH WITH SALINE, DENIES PAIN. AFTER 15 MINUTES,PT. STATES "IT'S GETTING BETTER". WILL CONTINUE TO MONITOR.
[2025-01-23 05:12] LABS: HEMATOCRIT 23.6 % (42-54); MEAN CORPUSCULAR HGB CONC 33.5 g/dL (32.0-36.0); MEAN CORPUSCULAR VOLUME 95.5 fL (79-99); PLATELET COUNT (AUTO) 176 K/uL (130-400); RED BLOOD CELL COUNT(AUTO) 2.47 MIL/uL (4.50-6.20); RED CELL DISTRIBUTION WIDTH 13.7 % (11.0-15.5); WHITE BLOOD COUNT (AUTO) 10.3 K/uL (4.8-10.8)
[2025-01-23 05:29] LABS: ALBUMIN 1.9 g/dL (3.5-5.0); BILIRUBIN,TOTAL 0.6 mg/dL (0.2-1.0); MAGNESIUM 1.4 mg/dL (1.80-2.40); PHOSPHORUS 3.9 mg/dL (2.5-4.9); POTASSIUM 3.5 mmol/L (3.5-5.1); TOTAL PROTEIN, SERUM 5.6 g/dL (6.0-8.3)
[2025-01-23 07:47] LABS: BAND NEUTROPHILS % (MANUAL) 1 % (0-2); LYMPHOCYTES % (MANUAL) 16 % (22-44); MAN.DIFF COMMENT-IMPRESSION MANUAL DIFFERENTIAL; MONOCYTES % (MANUAL) 4 % (2-9); SEGMENTED NEUTROPHILS % 79 % (40-70); TOTAL CELLS COUNTED 100; WBC MORPHOLOGY CONSISTENT W/DIFF
[2025-01-23 07:48] LABS: PLATELET MORPHOLOGY COMMENT ADEQUATE
--- NOTE | 2025-01-23 09:38 | PN ---
GASTROENTEROLOGY PROGRESS NOTE Date of Visit: Jan 23, 2025 Time of Visit: 09:38 Events / Notes: No acute events overnight. Patient had EGD revealing LA Grade B esophagitis. Denies fever, chills, abdominal pain, N/V, hematemesis, bloating, constipation, diarrhea, melena or hematochezia. Hgb trended down slightly today. No overt GI bleeding. Review of Systems: CONSTITUTIONAL: No malaise or change in sensation of wellbeing. ENMT: No rhinorrhea, otorrhea, sinus pain, ear ache. CARDIOVASCULAR: No angina, palpitations, orthopnea or paroxysmal dyspnea. RESPIRATORY: No SOB. GASTROINTESTINAL: No abdominal pain, nausea, vomiting, diarrhea, hematemesis, melena or change in the patient's habitual bowel movements consistency/number. GENITOURINARY: No dysuria, hematuria or change in bladder continence. MUSCULOSKELETAL: No new muscle pain or decrease in muscular strength. No new joint swelling, redness or tenderness. SKIN: No new rash. Physical Exam: GEN: Awake, alert, oriented in person, time and place, and in no acute distress. HEENT: No sinus tenderness. Tympanic membranes were not examined. No rhinorrhea. Oral pharyngeal mucosa is pink, moist and within normal limits. Neck is supple with no cervical lymphadenopathy, thyromegaly or JVD. CHEST: Inspection, palpation and percussion of the chest were unremarkable. Lung auscultation revealed normal breath sounds bilaterally. CARDIAC: PMI is within normal limits. Heart sounds are regular. Normal S1, S2. No gallop or murmur. ABD: Soft, non-tender and not distended. No peritoneal signs on palpation. No organomegaly. Normal bowel sounds. EXT: No cyanosis or clubbing. No edema. SKIN: Intact. No rashes. JOINTS: No evidence of synovitis or acute arthritis. NEURO: Alert and oriented to name, place and person. Cranial nerve examination is unremarkable. No focal motor deficits. Normal speech. Gait is normal. Strength is normal. Vital Signs (last 8hr) Date Time Temp Pulse Resp B/P (MAP) Pulse Ox O2 Delivery O2 Flow Rate FiO2 01/23/25 07:59 97.9 85 20 112/63 100 Room Air 21 01/23/25 04:00 97.9 71 20 113/55 98 Room Air Laboratory: [ ] Laboratory: Test 01/23/25 05:14 01/23/25 04:56 01/22/25 03:06 Range/Units Whole Blood Glucose 107 # 70-110 MG/DL White Blood Count 10.3 4.8-10.8 K/uL Red Blood Count 2.47 L 4.50-6.20 MIL/uL Hemoglobin 7.9 L 14.0-18.0 g/dL Hematocrit 23.6 L 42-54 % Mean Corpuscular Volume 95.5 79-99 fL Mean Corpuscular Hemoglobin 32.0 27.0-33.0 pg Mean Corpuscular Hemoglobin Concent 33.5 32.0-36.0 g/dL Red Cell Distribution Width 13.7 11.0-15.5 % Platelet Count 176 130-400 K/uL Mean Platelet Volume 10.5 7.5-10.5 fL Segmented Neutrophils % 79 H 40-70 % Band Neutrophils % 1 0-2 % Lymphocytes % (Manual) 16 L 22-44 % Monocytes % (Manual) 4 2-9 % Nucleated Red Blood Cells 0.0 0.0-0.19 % Differential Comment MANUAL DIFFERENTIAL White Cell Morphology Comment CONSISTENT W/DIFF Platelet Morphology Comment ADEQUATE Red Blood Cell Morphology See comments Sodium Level 139 136-145 mmol/L Potassium Level 3.5 3.5-5.1 mmol/L Chloride Level 106 101-111 mmol/L Carbon Dioxide Level 26 21-32 mmol/L Blood Urea Nitrogen 16 7-18 mg/dL Creatinine 1.0 0.5-1.3 mg/dL Glomerular Filtration Rate Calc 95 >90 mL/min Random Glucose 114 H 70-105 mg/dL Total Calcium 7.4 L 8.5-10.1 mg/dL Phosphorus Level 3.9 2.5-4.9 mg/dL Magnesium Level 1.40 L 1.80-2.40 mg/dL Total Bilirubin 0.6 0.2-1.0 mg/dL Aspartate Amino Transf (AST/SGOT) 11 10-37 U/L Alanine Aminotransferase (ALT/SGPT) 13 12-78 U/L Alkaline Phosphatase 71 50-136 U/L Total Protein 5.6 L 6.0-8.3 g/dL Albumin 1.9 L 3.5-5.0 g/dL Gentamicin Level Peak 4.2 # 4.0-8.0 mcg/mL Gentamicin Level Trough 1.3 # 0.0-2.0 mcg/mL Current Medications Medications (Trade) Dose Ordered Sig/Asya Route PRN Reason Start Time Stop Time Status Last Admin Dose Admin Acetaminophen (TYLenol 325MG TAB) 650 mg Q6H PRN PO MILD PAIN (1-3) 01/16/25 17:30 02/15/25 17:29 01/23/25 04:01 650 MG Acetaminophen (TYLenol 325MG TAB) 650 mg Q6H PRN PO TEMPERATURE GREATER THAN 101.5 01/05/25 02:30 02/04/25 02:29 01/22/25 22:40 650 MG Apixaban (EliquIS) 5 mg BID PO 01/21/25 21:00 02/20/25 20:59 Hold 01/22/25 09:02 5 MG Apixaban (EliquIS) 5 mg BID PO 01/25/25 21:00 01/21/25 16:00 DC Apixaban (EliquIS) 10 mg BID PO 01/18/25 21:00 01/18/25 13:52 DC Apixaban (EliquIS) 10 mg BID PO 01/18/25 21:00 01/21/25 16:00 DC 01/21/25 08:45 10 MG Aspirin (Aspirin 81mg Chew Tab) 81 mg DAILY PO 01/05/25 09:00 01/05/25 09:53 DC Aspirin (Aspirin 81mg Ec Tab) 81 mg DAILY PO 01/16/25 09:00 02/15/25 08:59 01/22/25 09:02 81 MG Benzocaine (Cepacol Sore Throat Lozenge) 1 each Q4H PRN MM SORE THROAT 01/05/25 02:30 02/04/25 02:29 Calcium Gluconate 1 gm/Sodium Chloride 100 ml @ 0 mls/hr AD PRN IV Serum Calcium Correction 01/08/25 02:30 02/07/25 02:29 01/08/25 23:32 90 MLS/HR Cefazolin Sodium (Ancef) 2 gm Q12H IVPB 01/07/25 13:30 01/16/25 14:43 DC 01/16/25 01:12 2 GM Cefazolin Sodium (Ancef) 2 gm Q8H IVPB 01/16/25 21:30 01/17/25 13:22 DC 01/17/25 05:07 2 GM Chlordiazepoxide HCl (LIBrium 25 MG CAP) 25 mg Q8H PO 01/05/25 02:30 01/11/25 11:39 DC 01/10/25 22:23 25 MG Chlordiazepoxide HCl (LIBrium 25 MG CAP) 25 mg Q8H PRN PO WITHDRAWAL 01/11/25 12:00 01/12/25 02:29 DC Dexamethasone Sodium Phosphate 20 mg/Sodium Chloride 52 ml @ 100 mls/hr DAILY IV 01/09/25 09:00 02/08/25 08:59 01/22/25 09:02 100 MLS/HR Dexamethasone Sodium Phosphate 40 mg/Sodium Chloride 50 ml @ 100 mls/hr DAILY IV 01/06/25 14:00 01/08/25 12:16 DC 01/08/25 09:34 100 MLS/HR Dextrose (D50w) 50 ml AD PRN IV HYPOGLYCEMIA PROTOCOL 01/05/25 10:00 02/04/25 09:59 Doxycycline Hyclate 250 ml @ 125 mls/hr Q12H IV 01/05/25 10:00 01/06/25 21:05 DC 01/06/25 09:30 125 MLS/HR Doxycycline Hyclate 250 ml @ 125 mls/hr Q12H IV 01/06/25 21:30 01/16/25 14:23 DC 01/16/25 10:13 125 MLS/HR Fluconazole (DiFLUCan 100 mg TAB) 200 mg DAILY PO 01/12/25 09:00 02/11/25 08:59 01/22/25 09:02 200 MG Folic Acid (FOLic ACID 1 MG TABLET) 1 mg DAILY PO 01/07/25 10:30 02/06/25 10:29 01/22/25 09:01 1 MG Furosemide (LASix 20MG VIAL) 20 mg Q12H IV 01/07/25 16:00 01/11/25 00:56 DC 01/10/25 19:40 20 MG Gentamicin Sulfate 150 mg/ Sodium Chloride 100 ml @ 100 mls/hr Q12H IV 01/20/25 16:00 01/22/25 03:27 DC 01/21/25 16:00 100 MLS/HR Gentamicin Sulfate 90 mg/ Sodium Chloride 50 ml @ 100 mls/hr Q8H IV 01/22/25 03:30 01/22/25 03:30 DC Gentamicin Sulfate 90 mg/ Sodium Chloride 50 ml @ 100 mls/hr Q8H IV 01/22/25 04:00 02/05/25 03:59 01/23/25 03:59 100 MLS/HR Gentamicin Sulfate/Sodium Chloride 100 ml @ 200 mls/hr Q12H IV 01/16/25 15:30 01/18/25 03:39 DC 01/17/25 16:00 200 MLS/HR Gentamicin Sulfate/Sodium Chloride 100 ml @ 200 mls/hr Q12H IV 01/18/25 04:00 01/20/25 06:41 DC 01/20/25 05:38 200 MLS/HR Glucagon (Glucagon 1mg Kit) 1 mg AD PRN IM HYPOGLYCEMIA PROTOCOL 01/05/25 10:00 02/04/25 09:59 Heparin Sodium/ Dextrose 250 ml @ 0 mls/hr PROTOCOL IV 01/11/25 14:30 01/18/25 13:28 DC 01/17/25 16:09 13.99 MLS/HR Hydralazine HCl (APRESOLine 20MG INJ) 5 mg Q6H PRN IV For:SBP above 160;DBP above 90 01/05/25 14:30 02/04/25 14:29 01/10/25 22:24 5 MG Hydralazine HCl (APRESOLine 20MG INJ) 10 mg Q6H PRN IV For:SBP above 160;DBP above 90 01/05/25 02:30 01/05/25 09:53 DC Insulin Glargine (LANtus 100 UNITS/ML 10 ML VIAL) 15 units Q12H SQ 01/07/25 21:30 01/09/25 23:18 DC 01/09/25 13:10 15 UNITS Insulin Glargine (LANtus 100 UNITS/ML 10 ML VIAL) 20 units DAILY SQ 01/14/25 09:00 02/13/25 08:59 01/22/25 09:19 20 UNITS Insulin Glargine (LANtus 100 UNITS/ML 10 ML VIAL) 20 units HS SQ 01/06/25 21:00 01/06/25 21:05 DC Insulin Glargine (LANtus 100 UNITS/ML 10 ML VIAL) 20 units HS SQ 01/06/25 21:30 01/07/25 10:24 DC 01/06/25 21:33 20 UNITS Insulin Glargine (LANtus 100 UNITS/ML 10 ML VIAL) 20 units Q12H SQ 01/10/25 09:30 01/10/25 12:58 DC Insulin Glargine (LANtus 100 UNITS/ML 10 ML VIAL) 25 units Q12H SQ 01/10/25 21:30 01/11/25 00:50 DC 01/10/25 22:19 25 UNITS Insulin Glargine (LANtus 100 UNITS/ML 10 ML VIAL) 30 units DAILY SQ 01/12/25 09:00 01/14/25 07:03 DC 01/12/25 11:25 30 UNITS Insulin Glargine (LANtus 100 UNITS/ML 10 ML VIAL) 30 units Q12H SQ 01/11/25 09:30 01/11/25 20:13 DC 01/11/25 10:50 30 UNITS Insulin Human Regular (humuLIN R 100 UNIT/ML 3ML) 5 unit TIDAC SQ 01/14/25 07:30 02/13/25 07:29 01/23/25 07:43 5 UNIT Insulin Human Regular (humuLIN R 100 UNIT/ML 3ML) 8 unit TIDAC SQ 01/11/25 07:30 01/14/25 07:03 DC 01/13/25 19:47 8 UNIT Insulin Human Regular (humuLIN R 100 UNIT/ML 3ML) INSULIN SLIDING SCAL... ACHS SQ 01/18/25 21:00 02/17/25 20:59 01/22/25 21:13 6 UNIT Insulin Human Regular (humuLIN R 100 UNIT/ML 3ML) INSULIN SLIDING SCAL... ACHS SQ 01/05/25 07:30 01/05/25 09:57 DC 01/05/25 07:59 16 UNIT Insulin Human Regular (humuLIN R 100 UNIT/ML 3ML) INSULIN SLIDING SCAL... ACHS SQ 01/05/25 11:30 01/06/25 16:43 DC 01/06/25 11:50 8 UNIT Insulin Human Regular (humuLIN R 100 UNIT/ML 3ML) INSULIN SLIDING SCAL... ACHS SQ 01/06/25 17:00 01/07/25 13:32 DC 01/06/25 17:17 16 UNIT Insulin Human Regular (humuLIN R 100 UNIT/ML 3ML) INSULIN SLIDING SCAL... Q4H SQ 01/11/25 02:00 01/11/25 23:59 DC 01/11/25 20:49 6 UNIT Insulin Human Regular (humuLIN R 100 UNIT/ML 3ML) INSULIN SLIDING SCAL... Q4H SQ 01/11/25 23:59 01/18/25 19:33 DC 01/18/25 16:59 4 UNIT Insulin Human Regular (humuLIN R 100 UNIT/ML 3ML) INSULIN SLIDING SCAL... Q6H6 SQ 01/10/25 18:00 01/11/25 00:50 DC 01/11/25 00:45 10 UNIT Insulin Human Regular 100 unit/ Sodium Chloride 100 ml @ 0 mls/hr AD PRN IV HYPERGLYCEMIA PROTOCOL 01/06/25 19:30 01/10/25 06:00 DC 01/09/25 19:10 16 MLS/HR Iron Sucrose (VenoFER) 300 mg Q24H IVP 01/21/25 15:00 01/21/25 15:29 DC Iron Sucrose 300 mg/Sodium Chloride 250 ml @ 166.667 mls/hr Q24H IV 01/21/25 16:00 01/21/25 17:22 DC Iron Sucrose 300 mg/Sodium Chloride 250 ml @ 166.667 mls/hr Q24H IV 01/21/25 19:30 01/21/25 20:57 DC Iron Sucrose 300 mg/Sodium Chloride 250 ml @ 166.667 mls/hr Q24H IV 01/21/25 21:00 02/20/25 20:59 01/22/25 21:05 166.667 MLS/HR Lactated Ringer's 1,000 ml @ 100 mls/hr Q10H IV 01/05/25 02:30 01/05/25 09:51 DC 01/05/25 02:30 100 MLS/HR Lactated Ringer's 1,000 ml @ 125 mls/hr Q8H IV 01/10/25 01:30 01/10/25 19:40 DC 01/10/25 13:07 125 MLS/HR Lactobacillus Rhamnosus ([facility] [employer] hoccer) 1 each DAILY PO 01/12/25 09:00 02/11/25 08:59 01/22/25 09:01 1 EACH Lorazepam (AtiVAN) 1 mg Q4H PRN IVP ALCOHOL WITHDRAWAL PROTOCOL 01/05/25 02:30 01/12/25 02:29 DC Magnesium Sulfate 50 ml @ 0 mls/hr PROTOCOL PRN IV h 01/05/25 02:30 02/04/25 02:29 01/23/25 07:47 25 MLS/HR Melatonin (Melatonin) 10 mg HS PRN PO INSOMNIA 01/21/25 21:30 02/20/25 21:29 01/22/25 22:40 10 MG Morphine Sulfate (morPHINE 2MG SYG) 2 mg Q4H PRN IVP SEVERE PAIN (7-10) 01/05/25 02:30 01/12/25 02:29 DC Multivitamins Therapeutic (Multivitamin Tablet) 1 tab DAILY PO 01/07/25 10:30 02/06/25 10:29 01/22/25 09:01 1 TAB Nafcillin Sodium (Nafcillin 2gm+ NS 100ml) 2 gm Q6H6 IV 01/17/25 18:00 01/27/25 17:59 01/23/25 06:26 2 GM Nicotine (Nicoderm) 21 mg DAILY TD 01/05/25 09:00 02/04/25 08:59 01/22/25 09:02 21 MG Nitroglycerin (Nitrostat) 0.4 mg AD PRN SL CHEST PAIN 01/05/25 02:30 02/04/25 02:29 Nystatin (NYSTatin 080778 UNIT/ML 5ML UDCUP) 100,000 UNITS 1 ML TO E... QID PO 01/18/25 09:00 02/17/25 08:59 01/22/25 21:04 2 ML Ondansetron HCl (zoFRAN 4MG INJ) 4 mg Q6H PRN IV NAUSEA/VOMITING 01/05/25 02:30 02/04/25 02:29 Pantoprazole Sodium (PROTonix 40MG TAB) 40 mg DAILY PO 01/05/25 09:00 02/04/25 08:59 01/22/25 09:01 40 MG Pharmacy Profile Note (Pharmacy Communication) 1 each ONCE MISC 01/16/25 14:30 01/16/25 15:12 DC Pharmacy Profile Note (Pharmacy Communication) 1 each PROTOCOL PRN MISC ETOH Withdrawal Score changes 01/05/25 02:30 01/12/25 02:29 DC Piperacillin Sod/ Tazobactam Sod (Zosyn 3.375gm+NS 50ml) 3.375 gm Q12H IV 01/05/25 02:30 01/07/25 13:24 DC 01/07/25 02:45 3.375 GM Potassium Phosphate 250 ml @ 42 mls/hr PROTOCOL PRN IV PROTOCOL 01/05/25 10:00 02/04/25 09:59 Potassium Chloride 100 ml @ 100 mls/hr AD PRN IV POTASSIUM PROTOCOL 01/05/25 02:30 01/07/25 10:12 DC Potassium Chloride 100 ml @ 100 mls/hr AD PRN IV POTASSIUM PROTOCOL 01/07/25 10:30 02/06/25 10:29 01/09/25 06:26 100 MLS/HR Potassium Chloride (K-Dur 10meq Sr Tab) 10 meq AD PRN PO POTASSIUM PROTOCOL 01/06/25 09:30 02/04/25 02:29 01/08/25 23:35 10 MEQ Potassium Chloride (K-Dur/Klor-Con 20meq) 10 meq AD PRN PO POTASSIUM PROTOCOL 01/05/25 02:30 01/06/25 09:12 DC 01/05/25 22:15 10 MEQ Potassium Chloride (K-Dur/Klor-Con 20meq) 10 meq AD PRN PO POTASSIUM PROTOCOL 01/07/25 10:30 01/07/25 10:12 DC Potassium Chloride (KCl 10% Elixir 20meq/15ml) 10 meq AD PRN PO POTASSIUM PROTOCOL 01/05/25 02:30 01/07/25 10:12 DC 01/06/25 17:16 10 MEQ Potassium Chloride (KCl 10% Elixir 20meq/15ml) 10 meq AD PRN PO POTASSIUM PROTOCOL 01/07/25 10:30 02/06/25 10:29 01/08/25 15:28 10 MEQ Sodium Bicarbonate (Sodium Bicarbonate) 1,300 mg BID PO 01/11/25 09:00 02/10/25 08:59 01/22/25 21:05 1,300 MG Sodium Chloride 1,000 ml @ 50 mls/hr Q20H IV 01/05/25 10:00 01/10/25 01:33 DC 01/09/25 05:56 50 MLS/HR Sodium Chloride 1,000 ml @ 75 mls/hr [id number] IV 01/11/25 01:00 01/11/25 13:45 DC 01/11/25 01:00 75 MLS/HR Triamcinolone Acetonide (Kenalog/ Aristocort) 1 APPLY TP BID BID TP 01/07/25 11:00 02/06/25 10:59 01/22/25 21:05 1 APPL Vancomycin HCl (Vancomycin Protocol) 1 each AD IV 01/07/25 12:30 01/07/25 12:40 DC Diagnostics / Radiology: [COPY/PASTE HERE IF NO REPORTS PLEASE DELETE SECTION] Assessment: GERD esophagitis Decompensated cirrhosis Thrombocytopenia Abnormal troponin Alcohol abuse Plan: Follow cardio recommendations Will obtain liver serologies to r/o other liver pathology Please contact our service if the patient has significant bleeding such as hematemesis and we can proceed sooner with the EGD Thanks you for allowing us to participate in the care of this patient! HILDA MUIR GREENSMAN Jan 23, 2025 09:38
--- NOTE | 2025-01-23 10:55 | PN ---
[facility] CARDIOLOGY PROGRESS NOTE Date Patient Seen: Jan 23, 2025 Time of Visit: 10:48 Interval History: This 44-year-old Latin-Maur[place] male with a history of morbid obesity, liver cirrhosis, polysubstance abuse (ETOH and cocaine), suspected sleep apnea, h ypertension, hyperlipidemia, and coronary artery disease status post remote stenting of the proximal LAD 12/19/2015 has had a prolonged hospitalization thus far was admitted with sepsis, MSSA, and was found to have a 1.8 x 1.2 cm vegetation involving the aortic valve by DRAKE 01/11/2025 as well as a left atrial appendage thrombus. He has been maintained on antibiotics and Eliquis an ticoagulation. The patient was noted to have a small left calf hematoma which has been stable and Eliquis will be resumed today. Plans for repeat left leg venous Doppler to investigate increased girth of the left thigh. He has had no fever, arrhythmias, and there was no cardiac murmur audible. Physical Examination: GENERAL: No acute distress. Chronically ill appearing. HEAD: Normal with no signs of head trauma. EYES: PERRLA, EOMI, conjunctiva and sclera normal. NECK: Supple without JVD. There is no tenderness, lymphadenopathy, or masses. No thyromegaly. Normal carotid upstrokes without bruits. LUNGS: SCM. Bilateral air entry. Diminished breath sounds noted to the bilateral lower lung joseph. HEART: Regular rate. Normal S1 and S2. No obvious murmurs, gallops, or rubs noted. No murmur audible. VASC: Peripheral pulses +2 bilaterally. EXT: No clubbing, cyanosis or edema. There is a left calf hematoma and increased girth of the left thigh. There are scattered petechial and purpuric patches. NEURO: Awake, alert, and oriented. No focal neurological deficits noted. Laboratory: Hematology Labs: Test 01/23/25 04:56 Range/Units White Blood Count 10.3 4.8-10.8 K/uL Red Blood Count 2.47 L 4.50-6.20 MIL/uL Hemoglobin 7.9 L 14.0-18.0 g/dL Hematocrit 23.6 L 42-54 % Mean Corpuscular Volume 95.5 79-99 fL Mean Corpuscular Hemoglobin 32.0 27.0-33.0 pg Mean Corpuscular Hemoglobin Concent 33.5 32.0-36.0 g/dL Red Cell Distribution Width 13.7 11.0-15.5 % Platelet Count 176 130-400 K/uL Mean Platelet Volume 10.5 7.5-10.5 fL Segmented Neutrophils % 79 H 40-70 % Band Neutrophils % 1 0-2 % Lymphocytes % (Manual) 16 L 22-44 % Monocytes % (Manual) 4 2-9 % Nucleated Red Blood Cells 0.0 0.0-0.19 % Differential Comment MANUAL DIFFERENTIAL White Cell Morphology Comment CONSISTENT W/DIFF Platelet Morphology Comment ADEQUATE Red Blood Cell Morphology See comments Chemistry Labs: Test 01/23/25 05:14 01/23/25 04:56 Range/Units Whole Blood Glucose 107 # 70-110 MG/DL Sodium Level 139 136-145 mmol/L Potassium Level 3.5 3.5-5.1 mmol/L Chloride Level 106 101-111 mmol/L Carbon Dioxide Level 26 21-32 mmol/L Blood Urea Nitrogen 16 7-18 mg/dL Creatinine 1.0 0.5-1.3 mg/dL Glomerular Filtration Rate Calc 95 >90 mL/min Random Glucose 114 H 70-105 mg/dL Total Calcium 7.4 L 8.5-10.1 mg/dL Phosphorus Level 3.9 2.5-4.9 mg/dL Magnesium Level 1.40 L 1.80-2.40 mg/dL Total Bilirubin 0.6 0.2-1.0 mg/dL Aspartate Amino Transf (AST/SGOT) 11 10-37 U/L Alanine Aminotransferase (ALT/SGPT) 13 12-78 U/L Alkaline Phosphatase 71 50-136 U/L Total Protein 5.6 L 6.0-8.3 g/dL Albumin 1.9 L 3.5-5.0 g/dL Assessment: -Severe sepsis -Bacteremia (MSSA) -UTI (Klebsiella) -Strep A positive -Acute cocaine intoxication -Acute cholecystitis -Fidelina esophagitis identified on EGD done 01/11/2025 -Bacterial endocarditis affecting the aortic valve (1.81x1.17 cm mass attached to the noncoronary cusp leaflet) identified on DRAKE done 01/11/2025 -Left atrial appendage thrombus identified on DRAKE done 01/11/2025 -Normal LV systolic function (LVEF: 60-65% by echo done 01/11/2025) -Elevated troponin (type II WV) -ITP -Liver cirrhosis -CAD s/p PCI with IA Integrilin, aspiration thrombectomy, PTCA, and KISHORE placement (Promus 4.0x16 mm) in the proximal LAD done on 12/19/2015 -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 Bacterial endocarditis affecting the aortic valve (1.81x1.17 cm mass attached to the noncoronary cusp leaflet) identified on DRAKE done 01/11/2025 -Positive blood cultures collected 01/05/2025, 01/07/2025, 01/09/2025, 01/11/2025 -Blood cultures collected 01/13/2025 and 01/14/2025-negative at 48 and 24 hours, respectively -The patient will continue on IV antibiotic therapy which has been tailored by ID. -no audible murmur and we will repeat a 2D echo today. 2. Left atrial appendage thrombus identified on DRAKE done 01/11/2025 -resume Eliquis5 mg b.i.d. which has a lower bleeding risk than warfarin anticoagulation 3. Elevated troponin -HS troponin I peak: 195 -We will restart the patient on aspirin 81 mg daily. He is not a candidate for statin therapy due to his liver dysfunction. 4. Left thigh swelling, rule out DVT: -proceed with a venous Doppler of the left leg today KARMA LUNDBERG MD Jan 23, 2025 10:55
--- NOTE | 2025-01-23 12:09 | PN ---
endocrinology consult dos: 01/23/25 subjective: he is off insulin drip and on insulin injections. he is started on iv steroids now. hba1c 8.5% Past Medical History Patient History: Patient reports no known family medical history. ADDITIONAL PAST MEDICAL HISTORY: [Denies any past medical history, fatty liver by CT on 01/05/2025] SOCIAL HISTORY: [Patient smokes one pack of cigarettes daily but only5 times a week. Patient [id number] beers daily but also only5 times a week. Patient reports occasional use of both marijuana and cocaine. Patient denies any other illegal drug use. 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 Patient has poor access to health care due to lack of health insurance. Patient is typically independent of all his ADLs. Patient denies difficulty pain is bills. Patient lives with his daughter Hannah Jin] SURGICAL HISTORY: [Heart stent] Review of Systems General: No Fever, No Chills, No Night Sweats, No Fatigue, No Malaise, No Appetite, No Other HEENT: No Head Aches, No Visual Changes, No Eye Pain, No Ear Pain, No Dysphasia, No Sinus Congestion, No Post Nasal Drip, No Sore Throat, No Other Pulmonary: No Dyspnea, No Cough, No Pleuritic Chest Pain, No Other Cardiovascular: No: Chest Pain, Palpitations, Orthopnea, Paroxysmal Noc. Dyspnea, Edema, Lt Headedness, Other Gastrointestinal: No: Nausea, Vomiting, Abdominal Pain, Diarrhea, Constipation, Melena, Hematochezia, Other Genitourinary: No Dysuria, No Frequency, No Incontinence, No Hematuria, No Retention, No Other Musculoskeletal: No: other, neck pain, shoulder pain, arm pain, back pain, hand pain, leg pain, foot pain Skin: No Urticaria, No Rash, No Other Neurological: Weakness; No: Numbness, Incoordination, Change in speech, Confusion, Seizures, Other Allergies: Coded Allergies: No Known Drug Allergies (Unverified Allergy, Unknown, 12/18/15) Scheduled Amlodipine Besylate (Amlodipine Besylate), 5 MG PO DAILY Atorvastatin Calcium (Lipitor), 40 MG PO HS Hydrochlorothiazide (Hydrochlorothiazide), 25 MG PO DAILY Lisinopril (Lisinopril), 20 MG PO DAILY Losartan Potassium (Losartan Potassium), 50 MG PO DAILY Methylprednisolone (Medrol), 4 MG PO AD Tamsulosin HCl (Flomax), 0.4 MG PO DAILY [Aspirin], 325 MG PO DAILY [Prasugrel Hcl], 10 MG PO DAILY Scheduled PRN Ketorolac Tromethamine (Ketorolac Tromethamine), 10 MG PO TID PRN for PAIN ASSESSMENT: DKA-resolved he is off insulin drip. hba1c 8.5% bicarb New onset Uncontrolled Diabetes mellitius type2, POA hyperglycemia is improving with few mild hypoglycemia. Severe sepsis, POA Urinary tract infection, POA Endocarditis and staph bacteremia Strep pharyngitis, POA Leukocytosis, POA Hyperlactatemia, POA Acute kidney injury, POA Thrombocytopenia, POA Elevated troponin, POA Substance abuse, POA, cocaine Alcohol dependence, POA Tobacco dependence, POA PLAN: Decrease lantus to 15 units daily continue regular insulin 5 units qac before meals continue medium dose ssi keep glucose less than 180 mg/dl monitor glucose [id number]. patient will need insulin at discharge. Vitals/Labs Vital Signs Date Time Temp Pulse Resp B/P (MAP) Pulse Ox O2 Delivery O2 Flow Rate FiO2 01/23/25 07:59 97.9 85 20 112/63 100 Room Air 21 01/23/25 07:40 0 Laboratory Tests 01/23/25 04:56 Medications Current Medications Sodium Chloride 1,000 ml @ 125 mls/hr ONCE ONCE IV Last administered on 01/05/25at 00:13; Start 01/04/25 at 23:00; Stop 01/05/25 at 06:59; Status DC Aspirin 81 mg ONCE ONCE PO Last administered on 01/05/25at 00:14; Start 01/04/25 at 23:00; Stop 01/04/25 at 23:01; Status DC Ondansetron HCl 4 mg ONCE ONCE IVP Last administered on 01/05/25at 00:13; Start 01/04/25 at 23:00; Stop 01/04/25 at 23:01; Status DC Potassium Chloride 100 ml @ 50 mls/hr ONCE ONCE IV Last administered on 01/05/25at 00:13; Start 01/05/25 at 00:00; Stop 01/05/25 at 01:59; Status DC Potassium Chloride 100 ml @ 50 mls/hr ONCE ONCE IV Last administered on 01/05/25at 03:12; Start 01/05/25 at 00:00; Stop 01/05/25 at 01:59; Status DC Thiamine HCl 100 mg ONCE ONCE IVP Last administered on 01/05/25at 01:01; Start 01/05/25 at 00:00; Stop 01/05/25 at 00:01; Status DC Acetaminophen 500 mg STK-MED ONCE .ROUTE; Start 01/05/25 at 00:28; Stop 01/05/25 at 00:28; Status DC Cefepime HCl 1 gm ONCE ONCE IVPB Last administered on 01/05/25at 01:01; Start 01/05/25 at 01:00; Stop 01/05/25 at 01:02; Status DC Vancomycin HCl 750 mg ONCE ONCE IVPB Last administered on 01/05/25at 02:12; Start 01/05/25 at 01:00; Stop 01/05/25 at 01:02; Status DC Sodium Chloride 250 ml ONCE ONCE IVPB Last administered on 01/05/25at 02:12; Start 01/05/25 at 01:00; Stop 01/05/25 at 01:02; Status DC Acetaminophen 1,000 mg ONCE ONCE PO Last administered on 01/05/25at 00:30; Start 01/05/25 at 01:00; Stop 01/05/25 at 01:02; Status DC Aspirin 81 mg DAILY PO; Start 01/05/25 at 09:00; Stop 01/05/25 at 09:53; Status DC Nitroglycerin 0.4 mg AD PRN SL; Start 01/05/25 at 02:30; Stop 02/04/25 at 02:29 Aspirin 162 mg ONCE ONCE PO Last administered on 01/05/25at 03:06; Start 01/05/25 at 02:30; Stop 01/05/25 at 02:31; Status DC Insulin Human Regular INSULIN SLIDING SCAL... ACHS SQ Last administered on 01/05/25at 07:59; Start 01/05/25 at 07:30; Stop 01/05/25 at 09:57; Status DC Lactated Ringer's 3,429 ml @ 1,143 mls/hr ONCE ONCE IV Last administered on 01/05/25at 03:12; Start 01/05/25 at 02:30; Stop 01/05/25 at 05:29; Status DC Piperacillin Sod/ Tazobactam Sod 3.375 gm Q12H IV Last administered on 01/07/25at 02:45; Start 01/05/25 at 02:30; Stop 01/07/25 at 13:24; Status DC Potassium Chloride 100 ml @ 100 mls/hr AD PRN IV; Start 01/05/25 at 02:30; Stop 01/07/25 at 10:12; Status DC Potassium Chloride 10 meq AD PRN PO Last administered on 01/06/25at 17:16; Start 01/05/25 at 02:30; Stop 01/07/25 at 10:12; Status DC Potassium Chloride 10 meq AD PRN PO Last administered on 01/05/25at 22:15; Start 01/05/25 at 02:30; Stop 01/06/25 at 09:12; Status DC Acetaminophen 650 mg Q6H PRN PO Last administered on 01/22/25at 22:40; Start 01/05/25 at 02:30; Stop 02/04/25 at 02:29 Pantoprazole Sodium 40 mg DAILY PO Last administered on 01/23/25at 09:25; Start 01/05/25 at 09:00; Stop 02/04/25 at 08:59 Ondansetron HCl 4 mg Q6H PRN IV; Start 01/05/25 at 02:30; Stop 02/04/25 at 02:29 Morphine Sulfate 2 mg Q4H PRN IVP; Start 01/05/25 at 02:30; Stop 01/12/25 at 02:29; Status DC Hydralazine HCl 10 mg Q6H PRN IV; Start 01/05/25 at 02:30; Stop 01/05/25 at 09:53; Status DC Benzocaine 1 each Q4H PRN MM; Start 01/05/25 at 02:30; Stop 02/04/25 at 02:29 Magnesium Sulfate 50 ml @ 0 mls/hr PROTOCOL PRN IV Last administered on 01/23/25at 07:47; Start 01/05/25 at 02:30; Stop 02/04/25 at 02:29 Lactated Ringer's 1,000 ml @ 100 mls/hr Q10H IV Last administered on 01/05/25at 02:30; Start 01/05/25 at 02:30; Stop 01/05/25 at 09:51; Status DC Chlordiazepoxide HCl 25 mg Q8H PO Last administered on 01/10/25at 22:23; Start 01/05/25 at 02:30; Stop 01/11/25 at 11:39; Status DC Lorazepam 1 mg Q4H PRN IVP; Start 01/05/25 at 02:30; Stop 01/12/25 at 02:29; Status DC Pharmacy Profile Note 1 each PROTOCOL PRN MISC; Start 01/05/25 at 02:30; Stop 01/12/25 at 02:29; Status DC Nicotine 21 mg DAILY TD Last administered on 01/23/25at 09:25; Start 01/05/25 at 09:00; Stop 02/04/25 at 08:59 Sodium Chloride 1,000 ml @ 50 mls/hr Q20H IV Last administered on 01/09/25at 05:56; Start 01/05/25 at 10:00; Stop 01/10/25 at 01:33; Status DC Potassium Phosphate 250 ml @ 42 mls/hr PROTOCOL PRN IV; Start 01/05/25 at 10:00; Stop 02/04/25 at 09:59 Hydralazine HCl 5 mg Q6H PRN IV Last administered on 01/10/25at 22:24; Start 01/05/25 at 14:30; Stop 02/04/25 at 14:29 Doxycycline Hyclate 250 ml @ 125 mls/hr Q12H IV Last administered on 01/06/25at 09:30; Start 01/05/25 at 10:00; Stop 01/06/25 at 21:05; Status DC Potassium Chloride 40 meq ONCE ONCE PO Last administered on 01/05/25at 10:25; Start 01/05/25 at 10:00; Stop 01/05/25 at 10:01; Status DC Potassium Chloride 100 ml @ 50 mls/hr ONCE ONCE IV Last administered on 01/05/25at 10:25; Start 01/05/25 at 10:00; Stop 01/05/25 at 11:59; Status DC Dextrose 50 ml AD PRN IV; Start 01/05/25 at 10:00; Stop 02/04/25 at 09:59 Glucagon 1 mg AD PRN IM; Start 01/05/25 at 10:00; Stop 02/04/25 at 09:59 Insulin Human Regular INSULIN SLIDING SCAL... ACHS SQ Last administered on 01/06/25at 11:50; Start 01/05/25 at 11:30; Stop 01/06/25 at 16:43; Status DC Dexamethasone Sodium Phosphate 10 mg ONCE ONCE IVP Last administered on 01/05/25at 17:27; Start 01/05/25 at 13:30; Stop 01/05/25 at 14:03; Status DC Insulin Glargine 20 units HS SQ; Start 01/06/25 at 21:00; Stop 01/06/25 at 21:05; Status DC Potassium Chloride 10 meq AD PRN PO Last administered on 01/08/25at 23:35; Start 01/06/25 at 09:30; Stop 02/04/25 at 02:29 Dexamethasone Sodium Phosphate 40 mg DAILY ONCE IV; Start 01/07/25 at 09:00; Stop 01/06/25 at 13:27; Status DC Dexamethasone Sodium Phosphate 40 mg/Sodium Chloride 50 ml @ 100 mls/hr DAILY IV Last administered on 01/08/25at 09:34; Start 01/06/25 at 14:00; Stop 01/08/25 at 12:16; Status DC Insulin Human Regular INSULIN SLIDING SCAL... ACHS SQ Last administered on 01/06/25at 17:17; Start 01/06/25 at 17:00; Stop 01/07/25 at 13:32; Status DC Insulin Human Regular 100 unit/ Sodium Chloride 100 ml @ 0 mls/hr AD PRN IV Last administered on 01/09/25at 19:10; Start 01/06/25 at 19:30; Stop 01/10/25 at 06:00; Status DC Insulin Glargine 20 units HS SQ Last administered on 01/06/25at 21:33; Start 01/06/25 at 21:30; Stop 01/07/25 at 10:24; Status DC Doxycycline Hyclate 250 ml @ 125 mls/hr Q12H IV Last administered on 01/16/25at 10:13; Start 01/06/25 at 21:30; Stop 01/16/25 at 14:23; Status DC Chlordiazepoxide HCl 25 mg STK-MED ONCE .ROUTE; Start 01/07/25 at 02:35; Stop 01/07/25 at 02:41; Status DC Piperacillin Sod/ Tazobactam Sod 50 ml @ As Directed STK-MED ONCE .ROUTE; Start 01/07/25 at 02:39; Stop 01/07/25 at 02:41; Status DC Potassium Chloride 0 ml @ As Directed STK-MED ONCE IV; Start 01/07/25 at 07:28; Stop 01/07/25 at 07:31; Status DC Potassium Chloride 40 meq ONCE ONCE PO Last administered on 01/07/25at 09:44; Start 01/07/25 at 10:00; Stop 01/07/25 at 10:01; Status DC Potassium Chloride 100 ml @ 100 mls/hr AD PRN IV Last administered on 01/09/25at 06:26; Start 01/07/25 at 10:30; Stop 02/06/25 at 10:29 Potassium Chloride 10 meq AD PRN PO Last administered on 01/08/25at 15:28; Start 01/07/25 at 10:30; Stop 02/06/25 at 10:29 Potassium Chloride 10 meq AD PRN PO; Start 01/07/25 at 10:30; Stop 01/07/25 at 10:12; Status DC Insulin Glargine 15 units Q12H SQ Last administered on 01/09/25at 13:10; Start 01/07/25 at 21:30; Stop 01/09/25 at 23:18; Status DC Insulin Glargine 10 units ONCE ONCE SQ Last administered on 01/07/25at 10:40; Start 01/07/25 at 10:30; Stop 01/07/25 at 10:31; Status DC Thiamine HCl 300 mg DAILY ONCE IVP Last administered on 01/07/25at 10:39; Start 01/07/25 at 10:30; Stop 01/07/25 at 10:31; Status DC Multivitamins Therapeutic 1 tab DAILY PO Last administered on 01/23/25at 09:25; Start 01/07/25 at 10:30; Stop 02/06/25 at 10:29 Folic Acid 1 mg DAILY PO Last administered on 01/23/25at 09:25; Start 01/07/25 at 10:30; Stop 02/06/25 at 10:29 Triamcinolone Acetonide 1 APPLY TP BID BID TP Last administered on 01/23/25at 09:37; Start 01/07/25 at 11:00; Stop 02/06/25 at 10:59 Vancomycin HCl 1 each AD IV; Start 01/07/25 at 12:30; Stop 01/07/25 at 12:40; Status DC Cefazolin Sodium 2 gm Q12H IVPB Last administered on 01/16/25at 01:12; Start 01/07/25 at 13:30; Stop 01/16/25 at 14:43; Status DC Furosemide 20 mg Q12H IV Last administered on 01/10/25at 19:40; Start 01/07/25 at 16:00; Stop 01/11/25 at 00:56; Status DC Calcium Gluconate 1 gm/Sodium Chloride 100 ml @ 0 mls/hr AD PRN IV Last administered on 01/08/25at 23:32; Start 01/08/25 at 02:30; Stop 02/07/25 at 02:29 Dexamethasone Sodium Phosphate 20 mg/Sodium Chloride 52 ml @ 100 mls/hr DAILY IV Last administered on 01/23/25at 09:24; Start 01/09/25 at 09:00; Stop 02/08/25 at 08:59 Insulin Glargine 20 units Q12H SQ; Start 01/10/25 at 09:30; Stop 01/10/25 at 12:58; Status DC Lactated Ringer's 1,000 ml @ 125 mls/hr Q8H IV Last administered on 01/10/25at 13:07; Start 01/10/25 at 01:30; Stop 01/10/25 at 19:40; Status DC Lactated Ringer's 1,000 ml BOLUS ONCE IV Last administered on 01/10/25at 09:20; Start 01/10/25 at 07:30; Stop 01/10/25 at 07:31; Status DC Lidocaine HCl 100 mg STK-MED ONCE .ROUTE; Start 01/10/25 at 08:01; Stop 01/10/25 at 08:02; Status DC Propofol 200 mg STK-MED ONCE IV; Start 01/10/25 at 08:02; Stop 01/10/25 at 08:02; Status DC Glycopyrrolate 1 mg STK-MED ONCE .ROUTE; Start 01/10/25 at 08:02; Stop 01/10/25 at 08:02; Status DC Ketamine HCl 50 mg STK-MED ONCE .ROUTE; Start 01/10/25 at 08:03; Stop 01/10/25 at 08:03; Status DC Insulin Glargine 25 units Q12H SQ Last administered on 01/10/25at 22:19; Start 01/10/25 at 21:30; Stop 01/11/25 at 00:50; Status DC Insulin Human Regular INSULIN SLIDING SCAL... Q6H6 SQ Last administered on 01/11/25at 00:45; Start 01/10/25 at 18:00; Stop 01/11/25 at 00:50; Status DC Insulin Glargine 30 units Q12H SQ Last administered on 01/11/25at 10:50; Start 01/11/25 at 09:30; Stop 01/11/25 at 20:13; Status DC Insulin Human Regular INSULIN SLIDING SCAL... Q4H SQ Last administered on 01/11/25at 20:49; Start 01/11/25 at 02:00; Stop 01/11/25 at 23:59; Status DC Sodium Chloride 1,000 ml @ 75 mls/hr [id number] IV Last administered on 01/11/25at 01:00; Start 01/11/25 at 01:00; Stop 01/11/25 at 13:45; Status DC Sodium Bicarbonate 1,300 mg BID PO Last administered on 01/23/25at 09:25; Start 01/11/25 at 09:00; Stop 02/10/25 at 08:59 Insulin Human Regular 8 unit TIDAC SQ Last administered on 01/13/25at 19:47; Start 01/11/25 at 07:30; Stop 01/14/25 at 07:03; Status DC Lidocaine HCl 100 mg STK-MED ONCE .ROUTE; Start 01/11/25 at 07:00; Stop 01/11/25 at 07:00; Status DC Atropine Sulfate 1 mg STK-MED ONCE IVP; Start 01/11/25 at 07:00; Stop 01/11/25 at 07:00; Status DC Propofol 200 mg STK-MED ONCE IV; Start 01/11/25 at 07:00; Stop 01/11/25 at 07:00; Status DC Succinylcholine Chloride 200 mg STK-MED ONCE .ROUTE; Start 01/11/25 at 07:00; Stop 01/11/25 at 07:00; Status DC Ketamine HCl 50 mg STK-MED ONCE .ROUTE; Start 01/11/25 at 07:00; Stop 01/11/25 at 07:01; Status DC Glycopyrrolate 1 mg STK-MED ONCE .ROUTE; Start 01/11/25 at 07:01; Stop 01/11/25 at 07:01; Status DC Sodium Chloride 10 ml STK-MED ONCE .ROUTE; Start 01/11/25 at 07:01; Stop 01/11/25 at 07:01; Status DC Phenylephrine HCl 10 mg STK-MED ONCE IV; Start 01/11/25 at 07:01; Stop 01/11/25 at 07:01; Status DC Midazolam HCl 2 mg STK-MED ONCE .ROUTE; Start 01/11/25 at 07:08; Stop 01/11/25 at 07:08; Status DC Ondansetron HCl 4 mg STK-MED ONCE .ROUTE; Start 01/11/25 at 07:34; Stop 01/11/25 at 07:35; Status DC Chlordiazepoxide HCl 25 mg Q8H PRN PO; Start 01/11/25 at 12:00; Stop 01/12/25 at 02:29; Status DC Heparin Sodium/ Dextrose 250 ml @ 0 mls/hr PROTOCOL IV Last administered on 01/17/25at 16:09; Start 01/11/25 at 14:30; Stop 01/18/25 at 13:28; Status DC Fluconazole 200 mg ONCE ONCE PO Last administered on 01/11/25at 15:18; Start 01/11/25 at 15:30; Stop 01/11/25 at 15:31; Status DC Fluconazole 200 mg DAILY PO Last administered on 01/23/25at 09:25; Start 01/12/25 at 09:00; Stop 02/11/25 at 08:59 Lactobacillus Rhamnosus 1 each DAILY PO Last administered on 01/23/25at 09:25; Start 01/12/25 at 09:00; Stop 02/11/25 at 08:59 Insulin Glargine 30 units DAILY SQ Last administered on 01/12/25at 11:25; Start 01/12/25 at 09:00; Stop 01/14/25 at 07:03; Status DC Insulin Human Regular INSULIN SLIDING SCAL... Q4H SQ Last administered on 01/18/25at 16:59; Start 01/11/25 at 23:59; Stop 01/18/25 at 19:33; Status DC Heparin Sodium (Porcine) 4,000 unit ONCE ONCE IV Last administered on 01/12/25at 22:36; Start 01/12/25 at 22:30; Stop 01/12/25 at 22:31; Status DC Iohexol 35,000 mg STK-MED ONCE IV; Start 01/13/25 at 12:56; Stop 01/13/25 at 12:57; Status DC Insulin Glargine 20 units DAILY SQ Last administered on 01/23/25at 09:41; Start 01/14/25 at 09:00; Stop 02/13/25 at 08:59 Insulin Human Regular 5 unit TIDAC SQ Last administered on 01/23/25at 07:43; Start 01/14/25 at 07:30; Stop 02/13/25 at 07:29 Aspirin 81 mg DAILY PO Last administered on 01/23/25at 09:25; Start 01/16/25 at 09:00; Stop 02/15/25 at 08:59 Pharmacy Profile Note 1 each ONCE MISC; Start 01/16/25 at 14:30; Stop 01/16/25 at 15:12; Status DC Dexamethasone Sodium Phosphate 10 mg STK-MED ONCE .ROUTE; Start 01/16/25 at 14:38; Stop 01/16/25 at 14:38; Status DC Dexamethasone Sodium Phosphate 10 mg STK-MED ONCE .ROUTE; Start 01/16/25 at 14:39; Stop 01/16/25 at 14:40; Status DC Cefazolin Sodium 2 gm Q8H IVPB Last administered on 01/17/25at 05:07; Start 01/16/25 at 21:30; Stop 01/17/25 at 13:22; Status DC Gentamicin Sulfate/Sodium Chloride 100 ml @ 200 mls/hr Q12H IV Last administered on 01/17/25at 16:00; Start 01/16/25 at 15:30; Stop 01/18/25 at 03:39; Status DC Acetaminophen 650 mg Q6H PRN PO Last administered on 01/23/25at 04:01; Start 01/16/25 at 17:30; Stop 02/15/25 at 17:29 Nafcillin Sodium 2 gm Q6H6 IV Last administered on 01/23/25at 06:26; Start 01/17/25 at 18:00; Stop 01/27/25 at 17:59 Melatonin 20 mg ONCE ONCE PO Last administered on 01/17/25at 22:00; Start 01/17/25 at 21:30; Stop 01/17/25 at 21:37; Status DC Gentamicin Sulfate/Sodium Chloride 100 ml @ 200 mls/hr Q12H IV Last administered on 01/20/25at 05:38; Start 01/18/25 at 04:00; Stop 01/20/25 at 06:41; Status DC Nystatin 100,000 UNITS 1 ML TO E... QID PO Last administered on 01/23/25at 09:25; Start 01/18/25 at 09:00; Stop 02/17/25 at 08:59 Apixaban 10 mg BID PO; Start 01/18/25 at 21:00; Stop 01/18/25 at 13:52; Status DC Apixaban 10 mg BID PO Last administered on 01/21/25at 08:45; Start 01/18/25 at 21:00; Stop 01/21/25 at 16:00; Status DC Apixaban 5 mg BID PO; Start 01/25/25 at 21:00; Stop 01/21/25 at 16:00; Status DC Insulin Human Regular INSULIN SLIDING SCAL... ACHS SQ Last administered on 01/22/25at 21:13; Start 01/18/25 at 21:00; Stop 02/17/25 at 20:59 Gentamicin Sulfate 150 mg/ Sodium Chloride 100 ml @ 100 mls/hr Q12H IV Last administered on 01/21/25at 16:00; Start 01/20/25 at 16:00; Stop 01/22/25 at 03:27; Status DC Iron Sucrose 300 mg Q24H IVP; Start 01/21/25 at 15:00; Stop 01/21/25 at 15:29; Status DC Iron Sucrose 300 mg/Sodium Chloride 250 ml @ 166.667 mls/hr Q24H IV; Start 01/21/25 at 16:00; Stop 01/21/25 at 17:22; Status DC Apixaban 5 mg BID PO Last administered on 01/22/25at 09:02; Start 01/21/25 at 21:00; Stop 01/23/25 at 10:57; Status DC Iron Sucrose 300 mg/Sodium Chloride 250 ml @ 166.667 mls/hr Q24H IV; Start 01/21/25 at 19:30; Stop 01/21/25 at 20:57; Status DC Iron Sucrose 300 mg/Sodium Chloride 250 ml @ 166.667 mls/hr Q24H IV Last administered on 01/22/25at 21:05; Start 01/21/25 at 21:00; Stop 01/23/25 at 22:29 Melatonin 10 mg HS PRN PO Last administered on 01/22/25at 22:40; Start 01/21/25 at 21:30; Stop 02/20/25 at 21:29 Gentamicin Sulfate 90 mg/ Sodium Chloride 50 ml @ 100 mls/hr Q8H IV; Start 01/22/25 at 03:30; Stop 01/22/25 at 03:30; Status DC Gentamicin Sulfate 90 mg/ Sodium Chloride 50 ml @ 100 mls/hr Q8H IV Last administered on 01/23/25at 03:59; Start 01/22/25 at 04:00; Stop 02/05/25 at 03:59 Apixaban 5 mg BID PO; Start 01/23/25 at 21:00; Stop 02/22/25 at 20:59 MAITE RESTREPO MD Jan 23, 2025 12:09
--- NOTE | 2025-01-23 16:12 | PN ---
[facility] PROGRESS NOTE Date of Service: Jan 23, 2025 Time of Service: 16:11 SUBJECTIVE: [ ] The patient has been seen and examined at bedside, no acute events overnight, the patient is comfortable, cooperating well, alert oriented x3, he is on a CIWA protocol, not combative. BP 123/70, rest of vital signs unremarkable. Patient received transfusion of 1 unit of platelet, platelet count improved to 27, per duplication specialist, likely due to splenomegaly. Echocardiogram reviewed, hypodense echogenic mobile vegetation to right coronary cusp leaflet, per cardiology once platelet count is greater than 50 1000 we will proceed with a a DRAKE. The pa tient also with a elevated blood sugar, continue insulin sliding scale, add insulin glargine 20 units subcutaneously at bedtime. Continue the patient on broad-spectrum IV antibiotics, continue to trend WBC in a.m.. 01/07 patient is seen and examined at bedside, case discussed with the RN, patient upgraded last night to the ICU to start insulin drip as blood glucose per sistently greater than 400. Patient started on dexamethasone IV by duplication specialist do to ITP. Platelet count slightly better today at 41. Upon my initial encounter with the patient admitted that he drinks more than 18 beers per day. He was started on CIWA protocol, however has remained hemodynamically stable, comfortable in bed, no signs of withdrawal, cooperating fine. Not agitated, not combative. Toxicology screen positive for cocaine. Sodium level slowly improvi ng, today 132. Serology positive for influenza type A. The patient with significant proteinuria consistent with diabetic nephropathy, creatinine slowly trending down, no need for renal replacement therapy per store planner. Patient with blood culture positive for Staphylococcus aureus, with urine culture positive for Klebsiella pneumoniae. We will add vancomycin IV pharmacy to dose. We will request Infectious Disease consultation. Echocardiogram reviewed, hypodense echogenic mobile vegetation to right coronary cusp leaflet, per cardiology once platelet count is greater than 50 1000 we will proceed with a a DRAKE. CT abdomen with gallstones in the gallbladder. HIDA scan pending 01/08 patient seen at bedside, no acute events overnight. He continues on insulin drip with an anion gap of 14, we will continue until the gap is closed. P latelets 54, we will follow up with Cardiology on optimal timing for DRAKE. Continue with IV antibiotics, further care per critical Care. 2/10 patient seen at bedside, no acute events overnight. Anion gap is still open at 14, we will continue IV insulin. Platelets improved from 54 up to 71, CO2 decreased from 17 down to 15. Cardiology planning on DRAKE today, we will follow up postprocedure. Repeat blood cultures are positive for Gram-positive organisms which further supports underlying endocarditis. Continue with IV antibiotics, appreciate Infectious Disease recommendations. He has been afebrile, hemodynamically stable saturating well on room air. WBC increased from 12.8 up to 13.6, BUN decreased from 93 down to 90, creatinine decreased from 2.5 down to 2.3, remainder of his labs are relatively unremarkable. 01/10 Pt seen at bedside, no acute events overnight. Pt with anion gap of 14, CO2 still low at 16. Repeat lactic acid was ordered, elevated at 4.8, will bolus patient and continue with IV fluids. DRAKE was rescheduled to today, will follow up with results.WBC improved from 13.6 down to 11.7, Hgb decreased from 15.1 down to 12.4, platelets decreased from 71 down to 66, this substantial decrease in all cell lines suggests hemodilution, creatinine decreased from 2.2 down to 1.4, also likely falsely depressed. 01/11 Pt seen at bedside, no acute events overnight. Pending EGD to assess for esophageal varices and DRAKE today, will follow up post procedure. Yesterday repeat lactic acid was elevated at 4.8, the patient was bolused and it improved down to 1.3. He has been afebrile, hemodynamically stable, saturating well on room air. WBC increased from 11.7 up to 12.5, platelets improved from 66 up to 113, creatinine increased from 1.6 up to 1.8, CO2 improved from 17 up to 22 after patient was started on bicarb. Third set of blood cultures growing gram positive organisms 01/12 patient is seen and examined at bedside, case discussed with the RN, no acute events overnight, remains on broad-spectrum IV antibiotics, alert oriented x3, following commands. Patient underwent DRAKE 01/11, tolerated well, LVEF 60- 65%, no left ventricle thrombus noted. Right ventricle is severely dilated. Left atrial appendage clot present. No mass or thrombus in the left atrium. No mass or thrombus in the right atrium. Aortic valve is trileaflet, opens well, non coronary cusp leaflet has vegetation that measures 1.8 x 1.1 cm. No mitral valve vegetation, no tricuspid valve vegetation, no pulmonic valve vegetation. Finding discussed with the patient, all questions answered. 01/13 patient is seen and examined at bedside, case discussed with the RN, no acute events overnight, during my visit the patient comfortably in bed, hemodynamically stable, alert oriented x3, getting IV antibiotics, denies chest pain, no shortness a breath, no nausea, no vomiting. 01/14 patient is seen and examined at bedside, downgraded to the medical floor, case discussed with the RN, patient hemodynamically stable, alert oriented x3, on heparin drip, no chest pain, no shortness a breath, no nausea, no vomiting. 01/15 patient is seen and examined bedside, case discussed with the RN, no acute events overnight. Patient with blood culture positive for Staphylococcus aureus, with urine culture positive for Klebsiella pneumoniae. Patient underwent DRAKE 01/11, tolerated well, LVEF 60-65%, no left ventricle thrombus noted. Right ventricle is severely dilated. Left atrial appendage clot present. No mass or thrombus in the left atrium. No mass or thrombus in the right atrium. Aortic valve is trileaflet, opens well, non coronary cusp leaflet has vegetation that measures 1.8 x 1.1 cm. No mitral valve vegetation, no tricuspid valve vegetation, no pulmonic valve vegetation. Continue heparin drip. Patient evaluated by Cardiothoracic surgeon. Medical management recommended for now. Re-evaluate possibility of aortic valve replacement in the near future. 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 Continue to follow Hematology input and recommendation Discharge plan discussed with case management, patient is uninsured, probably will have to remain admitted until completion of IV antibiotic course. 01/16 Pt seen at bedside, no acute events overnight. Most recent blood cultures are no growth to date. CV surgery suggesting aortic valve replacement may be feasible if patient recent blood cultures no growth for another 5 days. If valve replacement will not be done, patient will need to complete full course of IV antibiotics before discharge as he is unfunded. Vitals and labs are relatively unremarkable 01/17 patient seen at bedside, no acute events overnight. Most recent blood cultures are growing Gram-positive organism, we will continue with IV antibiotics. Antibiotics have been adjusted by Infectious Disease, surgery will be held. 01/18 patient seen at bedside, no acute events overnight. Continue with broad- spectrum antibiotics, we will follow up with cardiovascular surgery regarding possible surgery once infection better controlled. Discussed case with duplication specialist who recommends heparin drip however patient we will need to be anticoagulated on discharge and given his own fundus status we will likely need to be started on warfarin. Vitals and labs relatively unremarkable. 01/19 patient seen at bedside, no acute events overnight. Continue with broad- spectrum antibiotics, we will follow up with cardiovascular surgery regarding possible surgery once infection better controlled. Patient started on eliquis. Hgb decreased from 9.6 down to 9.0, Vitals and labs otherwise relatively unremarkable. 01/20 patient seen at bedside, no acute events overnight. Continue with broad- spectrum antibiotics, we will follow up with cardiovascular surgery regarding possible surgery once infection better controlled. Patient started on eliquis. Hgb decreased from 9.0 down to 8.5, Vitals and labs otherwise relatively unremarkable. 01/21 Pt seen at bedside, no acute events overnight. Continue broad spectrum an tibiotics. Lab holiday today, continue with anticoagulation and broad spectrum antibiotics. 01/22 Pt seen at bedside, no acute events overnight. Continue broad spectrum antibiotics. Lab holiday today, continue with anticoagulation and broad spectrum antibiotics. 01/23/25 patient was seen and examined. Case discussed with the RN. No acute overnight events reported. Continue with the antibiotics REVIEW OF SYSTEMS 12 point review of systems negative unless noted in HPI PHYSICAL EXAM GENERAL APPEARANCE: The patient is awake, alert, and oriented, in no acute cardiopulmonary distress. NEUROLOGICAL: Cranial nerves II-XII grossly intact. Motor is 5/5 in bilateral upper and lower extremities proximal to distal. No sensory deficits. HEENT: Face is symmetric. Pupils are equal and reactive. Extraocular movements are intact. NECK: Supple. No JVD. No thyromegaly. No submental, submandibular, pre- /postauricular, occipital or supraclavicular lymphadenopathy. CHEST: Normal chest expansion. No Telemetry. LUNGS: Absence of any rales, rhonchi or any wheezing. CARDIOVASCULAR: Regular. S1 and S2 normal. No appreciable rubs, murmurs or gallops. ABDOMEN: Soft, nontender, and nondistended. There is no rebound, voluntary guarding, or rigidity. : Deferred. No Ortega. EXTREMITIES: Non-edematous and not cyanotic. No clubbing. Good capillary refill. SKIN: No skin breakdown. Vital Signs (last 8hr) Date Time Temp Pulse Resp B/P (MAP) Pulse Ox O2 Delivery O2 Flow Rate FiO2 01/23/25 11:15 98.2 76 22 102/64 100 Room Air 21 LABS: Laboratory: Test 01/23/25 11:33 01/23/25 11:09 01/23/25 04:56 Range/Units Whole Blood Glucose 94 70-110 MG/DL Gentamicin Level Trough 2.2 #H 0.0-2.0 mcg/mL White Blood Count 10.3 4.8-10.8 K/uL Red Blood Count 2.47 L 4.50-6.20 MIL/uL Hemoglobin 7.9 L 14.0-18.0 g/dL Hematocrit 23.6 L 42-54 % Mean Corpuscular Volume 95.5 79-99 fL Mean Corpuscular Hemoglobin 32.0 27.0-33.0 pg Mean Corpuscular Hemoglobin Concent 33.5 32.0-36.0 g/dL Red Cell Distribution Width 13.7 11.0-15.5 % Platelet Count 176 130-400 K/uL Mean Platelet Volume 10.5 7.5-10.5 fL Segmented Neutrophils % 79 H 40-70 % Band Neutrophils % 1 0-2 % Lymphocytes % (Manual) 16 L 22-44 % Monocytes % (Manual) 4 2-9 % Nucleated Red Blood Cells 0.0 0.0-0.19 % Differential Comment MANUAL DIFFERENTIAL White Cell Morphology Comment CONSISTENT W/DIFF Platelet Morphology Comment ADEQUATE Red Blood Cell Morphology See comments Sodium Level 139 136-145 mmol/L Potassium Level 3.5 3.5-5.1 mmol/L Chloride Level 106 101-111 mmol/L Carbon Dioxide Level 26 21-32 mmol/L Blood Urea Nitrogen 16 7-18 mg/dL Creatinine 1.0 0.5-1.3 mg/dL Glomerular Filtration Rate Calc 95 >90 mL/min Random Glucose 114 H 70-105 mg/dL Total Calcium 7.4 L 8.5-10.1 mg/dL Phosphorus Level 3.9 2.5-4.9 mg/dL Magnesium Level 1.40 L 1.80-2.40 mg/dL Total Bilirubin 0.6 0.2-1.0 mg/dL Aspartate Amino Transf (AST/SGOT) 11 10-37 U/L Alanine Aminotransferase (ALT/SGPT) 13 12-78 U/L Alkaline Phosphatase 71 50-136 U/L Total Protein 5.6 L 6.0-8.3 g/dL Albumin 1.9 L 3.5-5.0 g/dL Gentamicin Level Peak 4.2 # 4.0-8.0 mcg/mL Current Medications Medications (Trade) Dose Ordered Sig/Asya Route PRN Reason Start Time Stop Time Status Last Admin Dose Admin Acetaminophen (TYLenol 325MG TAB) 650 mg Q6H PRN PO MILD PAIN (1-3) 01/16/25 17:30 02/15/25 17:29 01/23/25 12:58 650 MG Acetaminophen (TYLenol 325MG TAB) 650 mg Q6H PRN PO TEMPERATURE GREATER THAN 101.5 01/05/25 02:30 02/04/25 02:29 01/22/25 22:40 650 MG Apixaban (EliquIS) 5 mg BID PO 01/21/25 21:00 01/23/25 10:57 DC 01/22/25 09:02 5 MG Apixaban (EliquIS) 5 mg BID PO 01/23/25 21:00 02/22/25 20:59 Apixaban (EliquIS) 5 mg BID PO 01/25/25 21:00 01/21/25 16:00 DC Apixaban (EliquIS) 10 mg BID PO 01/18/25 21:00 01/18/25 13:52 DC Apixaban (EliquIS) 10 mg BID PO 01/18/25 21:00 01/21/25 16:00 DC 01/21/25 08:45 10 MG Aspirin (Aspirin 81mg Chew Tab) 81 mg DAILY PO 01/05/25 09:00 01/05/25 09:53 DC Aspirin (Aspirin 81mg Ec Tab) 81 mg DAILY PO 01/16/25 09:00 02/15/25 08:59 01/23/25 09:25 81 MG Benzocaine (Cepacol Sore Throat Lozenge) 1 each Q4H PRN MM SORE THROAT 01/05/25 02:30 02/04/25 02:29 Calcium Gluconate 1 gm/Sodium Chloride 100 ml @ 0 mls/hr AD PRN IV Serum Calcium Correction 01/08/25 02:30 02/07/25 02:29 01/08/25 23:32 90 MLS/HR Cefazolin Sodium (Ancef) 2 gm Q12H IVPB 01/07/25 13:30 01/16/25 14:43 DC 01/16/25 01:12 2 GM Cefazolin Sodium (Ancef) 2 gm Q8H IVPB 01/16/25 21:30 01/17/25 13:22 DC 01/17/25 05:07 2 GM Chlordiazepoxide HCl (LIBrium 25 MG CAP) 25 mg Q8H PO 01/05/25 02:30 01/11/25 11:39 DC 01/10/25 22:23 25 MG Chlordiazepoxide HCl (LIBrium 25 MG CAP) 25 mg Q8H PRN PO WITHDRAWAL 01/11/25 12:00 01/12/25 02:29 DC Dexamethasone Sodium Phosphate 20 mg/Sodium Chloride 52 ml @ 100 mls/hr DAILY IV 01/09/25 09:00 02/08/25 08:59 01/23/25 09:24 100 MLS/HR Dexamethasone Sodium Phosphate 40 mg/Sodium Chloride 50 ml @ 100 mls/hr DAILY IV 01/06/25 14:00 01/08/25 12:16 DC 01/08/25 09:34 100 MLS/HR Dextrose (D50w) 50 ml AD PRN IV HYPOGLYCEMIA PROTOCOL 01/05/25 10:00 02/04/25 09:59 Doxycycline Hyclate 250 ml @ 125 mls/hr Q12H IV 01/05/25 10:00 01/06/25 21:05 DC 01/06/25 09:30 125 MLS/HR Doxycycline Hyclate 250 ml @ 125 mls/hr Q12H IV 01/06/25 21:30 01/16/25 14:23 DC 01/16/25 10:13 125 MLS/HR Fluconazole (DiFLUCan 100 mg TAB) 200 mg DAILY PO 01/12/25 09:00 02/11/25 08:59 01/23/25 09:25 200 MG Folic Acid (FOLic ACID 1 MG TABLET) 1 mg DAILY PO 01/07/25 10:30 02/06/25 10:29 01/23/25 09:25 1 MG Furosemide (LASix 20MG VIAL) 20 mg Q12H IV 01/07/25 16:00 01/11/25 00:56 DC 01/10/25 19:40 20 MG Gentamicin Sulfate 150 mg/ Sodium Chloride 100 ml @ 100 mls/hr Q12H IV 01/20/25 16:00 01/22/25 03:27 DC 01/21/25 16:00 100 MLS/HR Gentamicin Sulfate 90 mg/ Sodium Chloride 50 ml @ 100 mls/hr Q8H IV 01/22/25 03:30 01/22/25 03:30 DC Gentamicin Sulfate 90 mg/ Sodium Chloride 50 ml @ 100 mls/hr Q8H IV 01/22/25 04:00 02/05/25 03:59 01/23/25 12:54 100 MLS/HR Gentamicin Sulfate/Sodium Chloride 100 ml @ 200 mls/hr Q12H IV 01/16/25 15:30 01/18/25 03:39 DC 01/17/25 16:00 200 MLS/HR Gentamicin Sulfate/Sodium Chloride 100 ml @ 200 mls/hr Q12H IV 01/18/25 04:00 01/20/25 06:41 DC 01/20/25 05:38 200 MLS/HR Glucagon (Glucagon 1mg Kit) 1 mg AD PRN IM HYPOGLYCEMIA PROTOCOL 01/05/25 10:00 02/04/25 09:59 Heparin Sodium/ Dextrose 250 ml @ 0 mls/hr PROTOCOL IV 01/11/25 14:30 01/18/25 13:28 DC 01/17/25 16:09 13.99 MLS/HR Hydralazine HCl (APRESOLine 20MG INJ) 5 mg Q6H PRN IV For:SBP above 160;DBP above 90 01/05/25 14:30 02/04/25 14:29 01/10/25 22:24 5 MG Hydralazine HCl (APRESOLine 20MG INJ) 10 mg Q6H PRN IV For:SBP above 160;DBP above 90 01/05/25 02:30 01/05/25 09:53 DC Insulin Glargine (LANtus 100 UNITS/ML 10 ML VIAL) 15 units Q12H SQ 01/07/25 21:30 01/09/25 23:18 DC 01/09/25 13:10 15 UNITS Insulin Glargine (LANtus 100 UNITS/ML 10 ML VIAL) 20 units DAILY SQ 01/14/25 09:00 02/13/25 08:59 01/23/25 09:41 20 UNITS Insulin Glargine (LANtus 100 UNITS/ML 10 ML VIAL) 20 units HS SQ 01/06/25 21:00 01/06/25 21:05 DC Insulin Glargine (LANtus 100 UNITS/ML 10 ML VIAL) 20 units HS SQ 01/06/25 21:30 01/07/25 10:24 DC 01/06/25 21:33 20 UNITS Insulin Glargine (LANtus 100 UNITS/ML 10 ML VIAL) 20 units Q12H SQ 01/10/25 09:30 01/10/25 12:58 DC Insulin Glargine (LANtus 100 UNITS/ML 10 ML VIAL) 25 units Q12H SQ 01/10/25 21:30 01/11/25 00:50 DC 01/10/25 22:19 25 UNITS Insulin Glargine (LANtus 100 UNITS/ML 10 ML VIAL) 30 units DAILY SQ 01/12/25 09:00 01/14/25 07:03 DC 01/12/25 11:25 30 UNITS Insulin Glargine (LANtus 100 UNITS/ML 10 ML VIAL) 30 units Q12H SQ 01/11/25 09:30 01/11/25 20:13 DC 01/11/25 10:50 30 UNITS Insulin Human Regular (humuLIN R 100 UNIT/ML 3ML) 5 unit TIDAC SQ 01/14/25 07:30 02/13/25 07:29 01/23/25 07:43 5 UNIT Insulin Human Regular (humuLIN R 100 UNIT/ML 3ML) 8 unit TIDAC SQ 01/11/25 07:30 01/14/25 07:03 DC 01/13/25 19:47 8 UNIT Insulin Human Regular (humuLIN R 100 UNIT/ML 3ML) INSULIN SLIDING SCAL... ACHS SQ 01/18/25 21:00 02/17/25 20:59 01/22/25 21:13 6 UNIT Insulin Human Regular (humuLIN R 100 UNIT/ML 3ML) INSULIN SLIDING SCAL... ACHS SQ 01/05/25 07:30 01/05/25 09:57 DC 01/05/25 07:59 16 UNIT Insulin Human Regular (humuLIN R 100 UNIT/ML 3ML) INSULIN SLIDING SCAL... ACHS SQ 01/05/25 11:30 01/06/25 16:43 DC 01/06/25 11:50 8 UNIT Insulin Human Regular (humuLIN R 100 UNIT/ML 3ML) INSULIN SLIDING SCAL... ACHS SQ 01/06/25 17:00 01/07/25 13:32 DC 01/06/25 17:17 16 UNIT Insulin Human Regular (humuLIN R 100 UNIT/ML 3ML) INSULIN SLIDING SCAL... Q4H SQ 01/11/25 02:00 01/11/25 23:59 DC 01/11/25 20:49 6 UNIT Insulin Human Regular (humuLIN R 100 UNIT/ML 3ML) INSULIN SLIDING SCAL... Q4H SQ 01/11/25 23:59 01/18/25 19:33 DC 01/18/25 16:59 4 UNIT Insulin Human Regular (humuLIN R 100 UNIT/ML 3ML) INSULIN SLIDING SCAL... Q6H6 SQ 01/10/25 18:00 01/11/25 00:50 DC 01/11/25 00:45 10 UNIT Insulin Human Regular 100 unit/ Sodium Chloride 100 ml @ 0 mls/hr AD PRN IV HYPERGLYCEMIA PROTOCOL 01/06/25 19:30 01/10/25 06:00 DC 01/09/25 19:10 16 MLS/HR Iron Sucrose (VenoFER) 300 mg Q24H IVP 01/21/25 15:00 01/21/25 15:29 DC Iron Sucrose 300 mg/Sodium Chloride 250 ml @ 166.667 mls/hr Q24H IV 01/21/25 16:00 01/21/25 17:22 DC Iron Sucrose 300 mg/Sodium Chloride 250 ml @ 166.667 mls/hr Q24H IV 01/21/25 19:30 01/21/25 20:57 DC Iron Sucrose 300 mg/Sodium Chloride 250 ml @ 166.667 mls/hr Q24H IV 01/21/25 21:00 01/23/25 22:29 01/22/25 21:05 166.667 MLS/HR Lactated Ringer's 1,000 ml @ 100 mls/hr Q10H IV 01/05/25 02:30 01/05/25 09:51 DC 01/05/25 02:30 100 MLS/HR Lactated Ringer's 1,000 ml @ 125 mls/hr Q8H IV 01/10/25 01:30 01/10/25 19:40 DC 01/10/25 13:07 125 MLS/HR Lactobacillus Rhamnosus ([facility] & E-Sign) 1 each DAILY PO 01/12/25 09:00 02/11/25 08:59 01/23/25 09:25 1 EACH Lorazepam (AtiVAN) 1 mg Q4H PRN IVP ALCOHOL WITHDRAWAL PROTOCOL 01/05/25 02:30 01/12/25 02:29 DC Magnesium Sulfate 50 ml @ 0 mls/hr PROTOCOL PRN IV h 01/05/25 02:30 02/04/25 02:29 01/23/25 07:47 25 MLS/HR Melatonin (Melatonin) 10 mg HS PRN PO INSOMNIA 01/21/25 21:30 02/20/25 21:29 01/22/25 22:40 10 MG Morphine Sulfate (morPHINE 2MG SYG) 2 mg Q4H PRN IVP SEVERE PAIN (7-10) 01/05/25 02:30 01/12/25 02:29 DC Multivitamins Therapeutic (Multivitamin Tablet) 1 tab DAILY PO 01/07/25 10:30 02/06/25 10:29 01/23/25 09:25 1 TAB Nafcillin Sodium (Nafcillin 2gm+ NS 100ml) 2 gm Q6H6 IV 01/17/25 18:00 01/27/25 17:59 01/23/25 12:54 2 GM Nicotine (Nicoderm) 21 mg DAILY TD 01/05/25 09:00 02/04/25 08:59 01/23/25 09:25 21 MG Nitroglycerin (Nitrostat) 0.4 mg AD PRN SL CHEST PAIN 01/05/25 02:30 02/04/25 02:29 Nystatin (NYSTatin 322592 UNIT/ML 5ML UDCUP) 100,000 UNITS 1 ML TO E... QID PO 01/18/25 09:00 02/17/25 08:59 01/23/25 12:54 2 ML Ondansetron HCl (zoFRAN 4MG INJ) 4 mg Q6H PRN IV NAUSEA/VOMITING 01/05/25 02:30 02/04/25 02:29 Pantoprazole Sodium (PROTonix 40MG TAB) 40 mg DAILY PO 01/05/25 09:00 02/04/25 08:59 01/23/25 09:25 40 MG Pharmacy Profile Note (Pharmacy Communication) 1 each ONCE MISC 01/16/25 14:30 01/16/25 15:12 DC Pharmacy Profile Note (Pharmacy Communication) 1 each PROTOCOL PRN MISC ETOH Withdrawal Score changes 01/05/25 02:30 01/12/25 02:29 DC Piperacillin Sod/ Tazobactam Sod (Zosyn 3.375gm+NS 50ml) 3.375 gm Q12H IV 01/05/25 02:30 01/07/25 13:24 DC 01/07/25 02:45 3.375 GM Potassium Phosphate 250 ml @ 42 mls/hr PROTOCOL PRN IV PROTOCOL 01/05/25 10:00 02/04/25 09:59 Potassium Chloride 100 ml @ 100 mls/hr AD PRN IV POTASSIUM PROTOCOL 01/05/25 02:30 01/07/25 10:12 DC Potassium Chloride 100 ml @ 100 mls/hr AD PRN IV POTASSIUM PROTOCOL 01/07/25 10:30 02/06/25 10:29 01/09/25 06:26 100 MLS/HR Potassium Chloride (K-Dur 10meq Sr Tab) 10 meq AD PRN PO POTASSIUM PROTOCOL 01/06/25 09:30 02/04/25 02:29 01/08/25 23:35 10 MEQ Potassium Chloride (K-Dur/Klor-Con 20meq) 10 meq AD PRN PO POTASSIUM PROTOCOL 01/05/25 02:30 01/06/25 09:12 DC 01/05/25 22:15 10 MEQ Potassium Chloride (K-Dur/Klor-Con 20meq) 10 meq AD PRN PO POTASSIUM PROTOCOL 01/07/25 10:30 01/07/25 10:12 DC Potassium Chloride (KCl 10% Elixir 20meq/15ml) 10 meq AD PRN PO POTASSIUM PROTOCOL 01/05/25 02:30 01/07/25 10:12 DC 01/06/25 17:16 10 MEQ Potassium Chloride (KCl 10% Elixir 20meq/15ml) 10 meq AD PRN PO POTASSIUM PROTOCOL 01/07/25 10:30 02/06/25 10:29 01/23/25 15:27 10 MEQ Sodium Bicarbonate (Sodium Bicarbonate) 1,300 mg BID PO 01/11/25 09:00 02/10/25 08:59 01/23/25 09:25 1,300 MG Sodium Chloride 1,000 ml @ 50 mls/hr Q20H IV 01/05/25 10:00 01/10/25 01:33 DC 01/09/25 05:56 50 MLS/HR Sodium Chloride 1,000 ml @ 75 mls/hr [id number] IV 01/11/25 01:00 01/11/25 13:45 DC 01/11/25 01:00 75 MLS/HR Triamcinolone Acetonide (Kenalog/ Aristocort) 1 APPLY TP BID BID TP 01/07/25 11:00 02/06/25 10:59 01/23/25 09:37 1 APPL Vancomycin HCl (Vancomycin Protocol) 1 each AD IV 01/07/25 12:30 01/07/25 12:40 DC DIAGNOSTICS / RADIOLOGY: [ ] ASSESSMENT: Severe sepsis, resolved POA Gram-positive bacteremia secondary to Staphylococcus aureus, POA Hypodense echogenic mobile vegetation to right coronary cusp leaflet on echocardiogram 01/05/2025 Left atrial appendage clot present. on DRAKE 01/11 non coronary cusp leaflet has vegetation that measures 1.8 x 1.1 cm. on DRAKE 01/11 Urinary tract infection, secondary to Klebsiella pneumoniae, POA Strep pharyngitis, POA ITP, POA Leukocytosis, POA Hyperlactatemia, POA Acute kidney injury, POA Hypokalemia, POA Hyponatremia, POA Hypomagnesemia, POA POA New onset Uncontrolled Diabetes mellitius type2, POA Elevated troponin, POA Cocaine abuse, POA Alcohol abuse, POA Tobacco dependence, POA Significant proteinuria, POA Diabetic nephropathy, POA Gallstones, POA Fidelina esophagitis on EGD 01/11 PLAN: -patient remains admitted to the medical floor. -continue the patient on broad-spectrum IV antibiotics -results of DRAKE reviewed, Left atrial appendage clot present. on DRAKE 01/11, aortic valve is trileaflet, opens well. Non coronary cusp leaflet has vegetation that measures 1.8 x 1.1 cm. on DRAKE 01/11 -continue heparin drip. Patient already evaluated by Cardiothoracic surgeon, continue medical management, we will re-evaluate possibility of aortic valve replacement in the near future. 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 Continue to follow Hematology input and recommendation -renal function slightly improved today, patient evaluated by store planner, the patient with significant proteinuria on UA consistent with diabetic nephropathy. No acute need for any form of renal replacement therapy. -blood culture positive for Staphylococcus aureus. Urine culture positive for Klebsiella pneumoniae. Continue broad-spectrum IV antibiotics, continue to follow ID input recommendation. -case discussed with case management, patient to complete course of IV antibiotics likely during this hospitalization as the patient is uninsured. Disposition: Pending improvement in clinical condition. All questions answered time spent: > 35 min PUJA DOMINGUEZ MD Jan 23, 2025 16:11
--- NOTE | 2025-01-23 16:13 | HMCIMG ---
US VENOUS DOPPLER UNILATERAL HISTORY: Swelling COMPARISON: 01/18/2025 TECHNIQUE: Left lower extremity venous Doppler ultrasound study was performed. FINDINGS: The left common femoral, femoral, popliteal, and posterior tibial veins are visualized. Normal flow with augmentation and compressibilities are demonstrated. Left greater saphenous vein is patent. There is left Matthews's cyst measuring 5.7 x 2 x 3.1 cm. IMPRESSION: 1. No evidence of deep venous thrombosis is seen.
--- NOTE | 2025-01-23 16:31 | PN ---
INFECTIOUS DISEASE PROGRESS NOTE Date of Service: Jan 23, 2025 SUBJECTIVE: This is a 44-year-old male patient who was admitted for chief complaint of weakness and status post fall at home. A Urine culture collected on admission came back positive for Klebsiella pneumoniae and the blood cultures results came back positive for Methicillin sensitive Staphylococcus aureus 2 of 2 sets and the reason for this consult. A 2D echo done on admission showed Aortic valve endocarditis and DRAKE done on 01/11/2025 with findings of aortic valve vegetation and Left atrial appendage clot. Patient was seen and examined at bedside in room 412. Patient is awake, alert and oriented x 3. No fever this morning, temperature is 98.2. Patient was up ambulating in hallways earlier and tolerated well. Patient continues on gentamicin, nafcillin and fluconazole p.o. Continues with swelling to the left lower extremity, a venous Doppler was done and it was negative for DVT. Patient will need antibiotics for total of six weeks. We will sign off at this time. PHYSICAL EXAM EYES: Anicteric. Pupils equal and reactive. HENT: No oral thrush seen, moist Oral mucosa. NECK: Supple, no JVD or thyromegaly. LUNGS: Good air entry. No rales, no rhonchi. CARDIOVASCULAR: S1, S2 regular. No murmur heard. ABDOMEN: Obese but Soft. CENTRAL NERVOUS SYSTEM: Awake, alert, oriented x 3. SKIN: No rashes, no swelling. LYMPHATICS: No peripheral lymphadenopathy MUSCULOSKELETAL: No joint swelling, erythema or tenderness. Weakness. EXTREMITIES: No cyanosis or clubbing. Edematous, resolving. BACK: No deformity, no pressure ulcer. GENITOURINARY: No dysuria or hematuria. Vital Sign (Last 12 Hours) 01/23/25 01/23/25 01/23/25 07:40 07:59 11:15 Temp 97.9 98.2 Pulse 85 76 Resp 20 22 B/P (MAP) 112/63 102/64 Pulse Ox 100 100 100 O2 Delivery Room Air* Room Air Room Air O2 Flow Rate 0 FiO2 21 21 21 Intake & Output (last 24hrs) 01/22/25 01/22/25 01/23/25 15:00 23:00 07:00 Intake Total 875 ml 240 ml Balance 875 ml 240 ml LABS: Laboratory: Test 01/23/25 16:14 01/23/25 11:09 01/23/25 04:56 Range/Units Whole Blood Glucose 190 #H 70-110 MG/DL Gentamicin Level Trough 2.2 #H 0.0-2.0 mcg/mL White Blood Count 10.3 4.8-10.8 K/uL Red Blood Count 2.47 L 4.50-6.20 MIL/uL Hemoglobin 7.9 L 14.0-18.0 g/dL Hematocrit 23.6 L 42-54 % Mean Corpuscular Volume 95.5 79-99 fL Mean Corpuscular Hemoglobin 32.0 27.0-33.0 pg Mean Corpuscular Hemoglobin Concent 33.5 32.0-36.0 g/dL Red Cell Distribution Width 13.7 11.0-15.5 % Platelet Count 176 130-400 K/uL Mean Platelet Volume 10.5 7.5-10.5 fL Segmented Neutrophils % 79 H 40-70 % Band Neutrophils % 1 0-2 % Lymphocytes % (Manual) 16 L 22-44 % Monocytes % (Manual) 4 2-9 % Nucleated Red Blood Cells 0.0 0.0-0.19 % Differential Comment MANUAL DIFFERENTIAL White Cell Morphology Comment CONSISTENT W/DIFF Platelet Morphology Comment ADEQUATE Red Blood Cell Morphology See comments Sodium Level 139 136-145 mmol/L Potassium Level 3.5 3.5-5.1 mmol/L Chloride Level 106 101-111 mmol/L Carbon Dioxide Level 26 21-32 mmol/L Blood Urea Nitrogen 16 7-18 mg/dL Creatinine 1.0 0.5-1.3 mg/dL Glomerular Filtration Rate Calc 95 >90 mL/min Random Glucose 114 H 70-105 mg/dL Total Calcium 7.4 L 8.5-10.1 mg/dL Phosphorus Level 3.9 2.5-4.9 mg/dL Magnesium Level 1.40 L 1.80-2.40 mg/dL Total Bilirubin 0.6 0.2-1.0 mg/dL Aspartate Amino Transf (AST/SGOT) 11 10-37 U/L Alanine Aminotransferase (ALT/SGPT) 13 12-78 U/L Alkaline Phosphatase 71 50-136 U/L Total Protein 5.6 L 6.0-8.3 g/dL Albumin 1.9 L 3.5-5.0 g/dL Gentamicin Level Peak 4.2 # 4.0-8.0 mcg/mL ASSESSMENT: Methicillin-susceptible Staphylococcus aureus bacteremia status post DRAKE on 01/11/2025 with findings of aortic valve vegetation and Left atrial appendage clot. Aortic valve endocarditis on 2D echo. Urinary tract infection with Klebsiella pneumoniae. Chronic scalp folliculitis. Leukocytosis. Thrombocytopenia requiring platelet transfusion, resolving. Acute on chronic renal failure, resolving. Substance abuse, Cocaine and ETOH. Streptococcus viral infection. Uncontrolled diabetes mellitus. Debility. PLAN: Continue Nafcillin. Continue Gentamicin per pharmacy renal dosing. Continue fluconazole. Continue on Eliquis. Avoid nephrotoxic medications. Continue GI prophylaxis. Slp following patient. Continue monitoring glucose levels. Patient will need 6 weeks of IV antibiotics. We will sign off at this time. This case was reviewed and discussed with my supervising physician and the above assessment and plan was formulated and agreed upon. ATTESTATION BY PHYSICIAN I have seen and examined the patient. I reviewed the documentation, medical decision making, and treatment plan as noted by the mid-level provider above. I agree with the findings and plan of care. JANUARY CARLSON MD, [employer] REPORTER Jan 23, 2025 16:31
[2025-01-23] MEDS: traMADol HCL 50 MG TABLET PO ONE (18:44)
--- NOTE | 2025-01-23 20:12 | PN ---
FOLLOWUP PROGRESS NOTE SUBJECTIVE: A 44-year-old male initially presented, found to have endocarditis. He has had acute on chronic renal failure in the hospital. Creatinine has actually stabilized. The patient remains on the IV antibiotics. The patient is being seen by case management for final disposition. He is being seen for all of the above. REVIEW OF SYSTEMS: GENERAL: He is feeling improved. HEENT: No change in vision. No change in hearing. CARDIOVASCULAR: There is no current chest pain or palpitations. PULMONARY: There is no shortness of breath. GASTROINTESTINAL: He is tolerating a diet. MUSCULOSKELETAL: Complains of weakness. PHYSICAL EXAMINATION: VITAL SIGNS: Blood pressure 112/63, pulse in the 80s. GENERAL: Chronically ill male, much older than appearing. HEENT: Head is atraumatic. Pupils equal, roving to light. Oropharynx is without exudate. Nares clear. NECK: There is no JVP. There is no thyromegaly, no mass. CARDIOVASCULAR: Regular. There is no S3, S4 gallop. LUNGS: Coarse with equal thoracic movement. ABDOMEN: Soft, nondistended, nontender. EXTREMITIES: Reveal no clubbing, no cyanosis. NEUROLOGIC: He is awake. He is alert. He is at his baseline. LABORATORY DATA: Hemoglobin 7.9, hematocrit 23. Sodium 139, potassium 3.5, BUN 16, creatinine is 1. IMPRESSION: * Acute on chronic renal failure. * Endocarditis. * Diabetes mellitus. * Hypertension. PLAN: The patient's renal function is much improved. Repeat cultures are all noted. He remains on the antibiotics. The patient is being seen by case management for final disposition. Once the patient is discharged, he can follow up in the [facility]. TID: [id number] RECEIPT: [id number]
[2025-01-23] MEDS: APIXaban 5 MG TABLET PO SCH (20:56)
--- NOTE | 2025-01-23 23:56 | HMCIMG ---
US ARTERIAL UNILA UPP EXT DUPL HISTORY: Right arm pain COMPARISON: None TECHNIQUE: Right upper extremity arterial Doppler ultrasound study was performed. FINDINGS: Normal triphasic arterial waveforms are noted in the subclavian, axillary, brachial, radial and ulna arteries bilaterally. On the right, the peak systolic velocity of the subclavian artery is 202 cm/s, the axillary artery is 102 cm/s, the brachial artery is 123 cm/s, the radial artery is 98 cm/s, and the ulnar artery is 91 cm/s. IMPRESSION: 1. Atherosclerotic disease. 2. Otherwise normal triphasic arterial waveforms noted of the right upper extremity artery system.
--- NOTE | 2025-01-24 02:00 | NUR ---
midline infiltrated patient complaining of right upper arm pain. I assessed his arm and it looked bruised and swollen. I measured it and it was 38 cm midarm instead of 33 cm as documented by the picc line nurse. I let the charge nurse, halie, know and he came to see the patient. He placed a 22 gauge iv catheter on the left wrist. I called nneka antonio and she ordered to remove the midline and place an order for a picc line instead. She also ordered a right upper arm venous doppler to rule out dvt. She ordered narco once for the patient's pain. The patient is in a semifowler position. I had no resistance removing the midline. I measured the midline and it measured 15 cm. The tip of the midline was intact. GRACIE Rivers, witness the length of the whole midline. The patient has no shortness of breath or any symptoms at all. Will continue to monitor patient.
[2025-01-24] MEDS: HYDROcodone/APAP 5/325 1 TAB TABLET PO ONE (02:51)
[2025-01-24 03:44] VITALS: BP 115/60; PULSE 86; RESP 18; TEMP 98.1
[2025-01-24 04:50] LABS: BASOPHILS # (AUTO) 0.01 K/uL (0.00-0.20); BASOPHILS % (AUTO) 0.1 % (0.0-5.0); EOSINOPHILS # (AUTO) 0.02 K/uL (0.00-0.70); EOSINOPHILS % (AUTO) 0.2 % (0.0-8.0); HEMATOCRIT 23.5 % (42-54); IMMATURE GRANULOCYTE ABSOLUTE 0.07 K/uL (0-1); LYMPHOCYTES # (AUTO) 0.9 K/uL (1.0-4.8); MEAN CORPUSCULAR HGB CONC 33.2 g/dL (32.0-36.0); MEAN CORPUSCULAR VOLUME 96.3 fL (79-99); MONOCYTES # (AUTO) 0.8 K/uL (0.1-1.0); MONOCYTES % (AUTO) 9.3 % (3.0-13.0); NEUTROPHILS # (AUTO) 6.8 K/uL (1.8-7.7); NEUTROPHILS % (AUTO) 79.6 % (40.0-77.0); PLATELET COUNT (AUTO) 160 K/uL (130-400); RED BLOOD CELL COUNT(AUTO) 2.44 MIL/uL (4.50-6.20); RED CELL DISTRIBUTION WIDTH 13.8 % (11.0-15.5); WHITE BLOOD COUNT (AUTO) 8.6 K/uL (4.8-10.8)
--- NOTE | 2025-01-24 04:53 | NUR ---
nurse note patient alert and oriented times 4. plan of care discussed with him and he verbalized understanding. patient has right arm pain tonight. midline infiltrated and removed. picc line ordered. consent signed. i called overnight houseperson, davide dougherty, to let her know. Patient slept on the recliner tonight. Ice packs applied to left leg as ordered. He has slept about 4 hours tonight. Hydrocodone helped his pain. call light within reach, bed alarm on, 2 side rails up. will continue to monitor patient.
[2025-01-24 05:00] LABS: CREATININE 1.1 mg/dL (0.5-1.3); MAGNESIUM 1.7 mg/dL (1.80-2.40); POTASSIUM 4.2 mmol/L (3.5-5.1)
[2025-01-24 05:01] LABS: INR 1.03 (0.85-1.15); PROTHROMBIN TIME 10.9 SEC (9.6-11.6)
[2025-01-24 05:02] LABS: PARTIAL THROMBOPLASTIN TIME 36.5 SEC (26.3-35.5)
--- NOTE | 2025-01-24 07:36 | PN ---
GASTROENTEROLOGY PROGRESS NOTE Date of Visit: Jan 24, 2025 Time of Visit: 07:36 Events / Notes: No acute events overnight. Patient had EGD revealing LA Grade B esophagitis. Denies fever, chills, abdominal pain, N/V, hematemesis, bloating, constipation, diarrhea, melena or hematochezia. Hgb trended down slightly today. No overt GI bleeding. Review of Systems: CONSTITUTIONAL: No malaise or change in sensation of wellbeing. ENMT: No rhinorrhea, otorrhea, sinus pain, ear ache. CARDIOVASCULAR: No angina, palpitations, orthopnea or paroxysmal dyspnea. RESPIRATORY: No SOB. GASTROINTESTINAL: No abdominal pain, nausea, vomiting, diarrhea, hematemesis, melena or change in the patient's habitual bowel movements consistency/number. GENITOURINARY: No dysuria, hematuria or change in bladder continence. MUSCULOSKELETAL: No new muscle pain or decrease in muscular strength. No new joint swelling, redness or tenderness. SKIN: No new rash. Physical Exam: GEN: Awake, alert, oriented in person, time and place, and in no acute distress. HEENT: No sinus tenderness. Tympanic membranes were not examined. No rhinorrhea. Oral pharyngeal mucosa is pink, moist and within normal limits. Neck is supple with no cervical lymphadenopathy, thyromegaly or JVD. CHEST: Inspection, palpation and percussion of the chest were unremarkable. Lung auscultation revealed normal breath sounds bilaterally. CARDIAC: PMI is within normal limits. Heart sounds are regular. Normal S1, S2. No gallop or murmur. ABD: Soft, non-tender and not distended. No peritoneal signs on palpation. No organomegaly. Normal bowel sounds. EXT: No cyanosis or clubbing. No edema. SKIN: Intact. No rashes. JOINTS: No evidence of synovitis or acute arthritis. NEURO: Alert and oriented to name, place and person. Cranial nerve examination is unremarkable. No focal motor deficits. Normal speech. Gait is normal. Strength is normal. Vital Signs (last 8hr) Date Time Temp Pulse Resp B/P (MAP) Pulse Ox O2 Delivery O2 Flow Rate FiO2 01/24/25 03:44 98.1 86 18 115/60 98 Room Air 21 Laboratory: [ ] Laboratory: Test 01/24/25 05:10 01/24/25 04:23 01/23/25 11:09 01/23/25 04:56 Range/Units Whole Blood Glucose 155 H 70-110 MG/DL White Blood Count 8.6 4.8-10.8 K/uL Red Blood Count 2.44 L 4.50-6.20 MIL/uL Hemoglobin 7.8 L 14.0-18.0 g/dL Hematocrit 23.5 L 42-54 % Mean Corpuscular Volume 96.3 79-99 fL Mean Corpuscular Hemoglobin 32.0 27.0-33.0 pg Mean Corpuscular Hemoglobin Concent 33.2 32.0-36.0 g/dL Red Cell Distribution Width 13.8 11.0-15.5 % Platelet Count 160 130-400 K/uL Mean Platelet Volume 10.4 7.5-10.5 fL Immature Granulocyte % (Auto) 0.8 0-1 % Neutrophils (%) (Auto) 79.6 H 40.0-77.0 % Lymphocytes (%) (Auto) 10.0 L 21.0-51.0 % Monocytes (%) (Auto) 9.3 3.0-13.0 % Eosinophils (%) (Auto) 0.2 0.0-8.0 % Basophils (%) (Auto) 0.1 0.0-5.0 % Neutrophils # (Auto) 6.8 1.8-7.7 K/uL Lymphocytes # (Auto) 0.9 L 1.0-4.8 K/uL Monocytes # (Auto) 0.8 0.1-1.0 K/uL Eosinophils # (Auto) 0.02 0.00-0.70 K/uL Basophils # (Auto) 0.01 0.00-0.20 K/uL Absolute Immature Granulocyte (auto 0.07 0-1 K/uL Nucleated Red Blood Cells 0.0 0.0-0.19 % Prothrombin Time 10.9 9.6-11.6 SEC Prothromb Time International Ratio 1.03 0.85-1.15 Activated Partial Thromboplast Time 36.5 H 26.3-35.5 SEC Sodium Level 136 136-145 mmol/L Potassium Level 4.2 3.5-5.1 mmol/L Chloride Level 106 101-111 mmol/L Carbon Dioxide Level 22 21-32 mmol/L Blood Urea Nitrogen 19 H 7-18 mg/dL Creatinine 1.1 0.5-1.3 mg/dL Glomerular Filtration Rate Calc 85 >90 mL/min Random Glucose 187 #H 70-105 mg/dL Total Calcium 7.7 L 8.5-10.1 mg/dL Magnesium Level 1.70 L 1.80-2.40 mg/dL Gentamicin Level Trough 2.2 #H 0.0-2.0 mcg/mL Segmented Neutrophils % 79 H 40-70 % Band Neutrophils % 1 0-2 % Lymphocytes % (Manual) 16 L 22-44 % Monocytes % (Manual) 4 2-9 % Differential Comment MANUAL DIFFERENTIAL White Cell Morphology Comment CONSISTENT W/DIFF Platelet Morphology Comment ADEQUATE Red Blood Cell Morphology See comments Phosphorus Level 3.9 2.5-4.9 mg/dL Total Bilirubin 0.6 0.2-1.0 mg/dL Aspartate Amino Transf (AST/SGOT) 11 10-37 U/L Alanine Aminotransferase (ALT/SGPT) 13 12-78 U/L Alkaline Phosphatase 71 50-136 U/L Total Protein 5.6 L 6.0-8.3 g/dL Albumin 1.9 L 3.5-5.0 g/dL Gentamicin Level Peak 4.2 # 4.0-8.0 mcg/mL Current Medications Medications (Trade) Dose Ordered Sig/Asya Route PRN Reason Start Time Stop Time Status Last Admin Dose Admin Acetaminophen (TYLenol 325MG TAB) 650 mg Q6H PRN PO MILD PAIN (1-3) 01/16/25 17:30 02/15/25 17:29 01/24/25 01:44 650 MG Acetaminophen (TYLenol 325MG TAB) 650 mg Q6H PRN PO TEMPERATURE GREATER THAN 101.5 01/05/25 02:30 02/04/25 02:29 01/22/25 22:40 650 MG Apixaban (EliquIS) 5 mg BID PO 01/21/25 21:00 01/23/25 10:57 DC 01/22/25 09:02 5 MG Apixaban (EliquIS) 5 mg BID PO 01/23/25 21:00 02/22/25 20:59 01/23/25 20:56 5 MG Apixaban (EliquIS) 5 mg BID PO 01/25/25 21:00 01/21/25 16:00 DC Apixaban (EliquIS) 10 mg BID PO 01/18/25 21:00 01/18/25 13:52 DC Apixaban (EliquIS) 10 mg BID PO 01/18/25 21:00 01/21/25 16:00 DC 01/21/25 08:45 10 MG Aspirin (Aspirin 81mg Chew Tab) 81 mg DAILY PO 01/05/25 09:00 01/05/25 09:53 DC Aspirin (Aspirin 81mg Ec Tab) 81 mg DAILY PO 01/16/25 09:00 02/15/25 08:59 01/23/25 09:25 81 MG Benzocaine (Cepacol Sore Throat Lozenge) 1 each Q4H PRN MM SORE THROAT 01/05/25 02:30 02/04/25 02:29 Calcium Gluconate 1 gm/Sodium Chloride 100 ml @ 0 mls/hr AD PRN IV Serum Calcium Correction 01/08/25 02:30 02/07/25 02:29 01/08/25 23:32 90 MLS/HR Cefazolin Sodium (Ancef) 2 gm Q12H IVPB 01/07/25 13:30 01/16/25 14:43 DC 01/16/25 01:12 2 GM Cefazolin Sodium (Ancef) 2 gm Q8H IVPB 01/16/25 21:30 01/17/25 13:22 DC 01/17/25 05:07 2 GM Chlordiazepoxide HCl (LIBrium 25 MG CAP) 25 mg Q8H PO 01/05/25 02:30 01/11/25 11:39 DC 01/10/25 22:23 25 MG Chlordiazepoxide HCl (LIBrium 25 MG CAP) 25 mg Q8H PRN PO WITHDRAWAL 01/11/25 12:00 01/12/25 02:29 DC Dexamethasone Sodium Phosphate 20 mg/Sodium Chloride 52 ml @ 100 mls/hr DAILY IV 01/09/25 09:00 02/08/25 08:59 01/23/25 09:24 100 MLS/HR Dexamethasone Sodium Phosphate 40 mg/Sodium Chloride 50 ml @ 100 mls/hr DAILY IV 01/06/25 14:00 01/08/25 12:16 DC 01/08/25 09:34 100 MLS/HR Dextrose (D50w) 50 ml AD PRN IV HYPOGLYCEMIA PROTOCOL 01/05/25 10:00 02/04/25 09:59 Doxycycline Hyclate 250 ml @ 125 mls/hr Q12H IV 01/05/25 10:00 01/06/25 21:05 DC 01/06/25 09:30 125 MLS/HR Doxycycline Hyclate 250 ml @ 125 mls/hr Q12H IV 01/06/25 21:30 01/16/25 14:23 DC 01/16/25 10:13 125 MLS/HR Fluconazole (DiFLUCan 100 mg TAB) 200 mg DAILY PO 01/12/25 09:00 02/11/25 08:59 01/23/25 09:25 200 MG Folic Acid (FOLic ACID 1 MG TABLET) 1 mg DAILY PO 01/07/25 10:30 02/06/25 10:29 01/23/25 09:25 1 MG Furosemide (LASix 20MG VIAL) 20 mg Q12H IV 01/07/25 16:00 01/11/25 00:56 DC 01/10/25 19:40 20 MG Gentamicin Sulfate 150 mg/ Sodium Chloride 100 ml @ 100 mls/hr Q12H IV 01/20/25 16:00 01/22/25 03:27 DC 01/21/25 16:00 100 MLS/HR Gentamicin Sulfate 90 mg/ Sodium Chloride 50 ml @ 100 mls/hr Q8H IV 01/22/25 03:30 01/22/25 03:30 DC Gentamicin Sulfate 90 mg/ Sodium Chloride 50 ml @ 100 mls/hr Q8H IV 01/22/25 04:00 01/23/25 20:03 DC 01/23/25 12:54 100 MLS/HR Gentamicin Sulfate/Sodium Chloride 100 ml @ 200 mls/hr BID@0600,1800 IV 01/24/25 06:00 02/07/25 05:59 01/24/25 04:10 200 MLS/HR Gentamicin Sulfate/Sodium Chloride 100 ml @ 200 mls/hr Q12H IV 01/16/25 15:30 01/18/25 03:39 DC 01/17/25 16:00 200 MLS/HR Gentamicin Sulfate/Sodium Chloride 100 ml @ 200 mls/hr Q12H IV 01/18/25 04:00 01/20/25 06:41 DC 01/20/25 05:38 200 MLS/HR Glucagon (Glucagon 1mg Kit) 1 mg AD PRN IM HYPOGLYCEMIA PROTOCOL 01/05/25 10:00 02/04/25 09:59 Heparin Sodium/ Dextrose 250 ml @ 0 mls/hr PROTOCOL IV 01/11/25 14:30 01/18/25 13:28 DC 01/17/25 16:09 13.99 MLS/HR Hydralazine HCl (APRESOLine 20MG INJ) 5 mg Q6H PRN IV For:SBP above 160;DBP above 90 01/05/25 14:30 02/04/25 14:29 01/10/25 22:24 5 MG Hydralazine HCl (APRESOLine 20MG INJ) 10 mg Q6H PRN IV For:SBP above 160;DBP above 90 01/05/25 02:30 01/05/25 09:53 DC Insulin Glargine (LANtus 100 UNITS/ML 10 ML VIAL) 15 units DAILY SQ 01/24/25 09:00 02/23/25 08:59 Insulin Glargine (LANtus 100 UNITS/ML 10 ML VIAL) 15 units Q12H SQ 01/07/25 21:30 01/09/25 23:18 DC 01/09/25 13:10 15 UNITS Insulin Glargine (LANtus 100 UNITS/ML 10 ML VIAL) 20 units DAILY SQ 01/14/25 09:00 01/23/25 21:37 DC 01/23/25 09:41 20 UNITS Insulin Glargine (LANtus 100 UNITS/ML 10 ML VIAL) 20 units HS SQ 01/06/25 21:00 01/06/25 21:05 DC Insulin Glargine (LANtus 100 UNITS/ML 10 ML VIAL) 20 units HS SQ 01/06/25 21:30 01/07/25 10:24 DC 01/06/25 21:33 20 UNITS Insulin Glargine (LANtus 100 UNITS/ML 10 ML VIAL) 20 units Q12H SQ 01/10/25 09:30 01/10/25 12:58 DC Insulin Glargine (LANtus 100 UNITS/ML 10 ML VIAL) 25 units Q12H SQ 01/10/25 21:30 01/11/25 00:50 DC 01/10/25 22:19 25 UNITS Insulin Glargine (LANtus 100 UNITS/ML 10 ML VIAL) 30 units DAILY SQ 01/12/25 09:00 01/14/25 07:03 DC 01/12/25 11:25 30 UNITS Insulin Glargine (LANtus 100 UNITS/ML 10 ML VIAL) 30 units Q12H SQ 01/11/25 09:30 01/11/25 20:13 DC 01/11/25 10:50 30 UNITS Insulin Human Regular (humuLIN R 100 UNIT/ML 3ML) 5 unit TIDAC SQ 01/14/25 07:30 02/13/25 07:29 01/24/25 05:55 5 UNIT Insulin Human Regular (humuLIN R 100 UNIT/ML 3ML) 8 unit TIDAC SQ 01/11/25 07:30 01/14/25 07:03 DC 01/13/25 19:47 8 UNIT Insulin Human Regular (humuLIN R 100 UNIT/ML 3ML) INSULIN SLIDING SCAL... ACHS SQ 01/18/25 21:00 02/17/25 20:59 01/23/25 20:55 5 UNIT Insulin Human Regular (humuLIN R 100 UNIT/ML 3ML) INSULIN SLIDING SCAL... ACHS SQ 01/05/25 07:30 01/05/25 09:57 DC 01/05/25 07:59 16 UNIT Insulin Human Regular (humuLIN R 100 UNIT/ML 3ML) INSULIN SLIDING SCAL... ACHS SQ 01/05/25 11:30 01/06/25 16:43 DC 01/06/25 11:50 8 UNIT Insulin Human Regular (humuLIN R 100 UNIT/ML 3ML) INSULIN SLIDING SCAL... ACHS SQ 01/06/25 17:00 01/07/25 13:32 DC 01/06/25 17:17 16 UNIT Insulin Human Regular (humuLIN R 100 UNIT/ML 3ML) INSULIN SLIDING SCAL... Q4H SQ 01/11/25 02:00 01/11/25 23:59 DC 01/11/25 20:49 6 UNIT Insulin Human Regular (humuLIN R 100 UNIT/ML 3ML) INSULIN SLIDING SCAL... Q4H SQ 01/11/25 23:59 01/18/25 19:33 DC 01/18/25 16:59 4 UNIT Insulin Human Regular (humuLIN R 100 UNIT/ML 3ML) INSULIN SLIDING SCAL... Q6H6 SQ 01/10/25 18:00 01/11/25 00:50 DC 01/11/25 00:45 10 UNIT Insulin Human Regular 100 unit/ Sodium Chloride 100 ml @ 0 mls/hr AD PRN IV HYPERGLYCEMIA PROTOCOL 01/06/25 19:30 01/10/25 06:00 DC 01/09/25 19:10 16 MLS/HR Iron Sucrose (VenoFER) 300 mg Q24H IVP 01/21/25 15:00 01/21/25 15:29 DC Iron Sucrose 300 mg/Sodium Chloride 250 ml @ 166.667 mls/hr Q24H IV 01/21/25 16:00 01/21/25 17:22 DC Iron Sucrose 300 mg/Sodium Chloride 250 ml @ 166.667 mls/hr Q24H IV 01/21/25 19:30 01/21/25 20:57 DC Iron Sucrose 300 mg/Sodium Chloride 250 ml @ 166.667 mls/hr Q24H IV 01/21/25 21:00 01/23/25 22:29 DC 01/23/25 20:56 166.667 MLS/HR Lactated Ringer's 1,000 ml @ 100 mls/hr Q10H IV 01/05/25 02:30 01/05/25 09:51 DC 01/05/25 02:30 100 MLS/HR Lactated Ringer's 1,000 ml @ 125 mls/hr Q8H IV 01/10/25 01:30 01/10/25 19:40 DC 01/10/25 13:07 125 MLS/HR Lactobacillus Rhamnosus ([facility]) 1 each DAILY PO 01/12/25 09:00 02/11/25 08:59 01/23/25 09:25 1 EACH Lorazepam (AtiVAN) 1 mg Q4H PRN IVP ALCOHOL WITHDRAWAL PROTOCOL 01/05/25 02:30 01/12/25 02:29 DC Magnesium Sulfate 50 ml @ 0 mls/hr PROTOCOL PRN IV h 01/05/25 02:30 02/04/25 02:29 01/24/25 05:54 15 MLS/HR Melatonin (Melatonin) 10 mg HS PRN PO INSOMNIA 01/21/25 21:30 02/20/25 21:29 01/24/25 00:33 10 MG Morphine Sulfate (morPHINE 2MG SYG) 2 mg Q4H PRN IVP SEVERE PAIN (7-10) 01/05/25 02:30 01/12/25 02:29 DC Multivitamins Therapeutic (Multivitamin Tablet) 1 tab DAILY PO 01/07/25 10:30 02/06/25 10:29 01/23/25 09:25 1 TAB Nafcillin Sodium (Nafcillin 2gm+ NS 100ml) 2 gm Q6H6 IV 01/17/25 18:00 01/27/25 17:59 01/24/25 05:54 2 GM Nicotine (Nicoderm) 21 mg DAILY TD 01/05/25 09:00 02/04/25 08:59 01/23/25 09:25 21 MG Nitroglycerin (Nitrostat) 0.4 mg AD PRN SL CHEST PAIN 01/05/25 02:30 02/04/25 02:29 Nystatin (NYSTatin 369101 UNIT/ML 5ML UDCUP) 100,000 UNITS 1 ML TO E... QID PO 01/18/25 09:00 02/17/25 08:59 01/23/25 20:56 2 ML Ondansetron HCl (zoFRAN 4MG INJ) 4 mg Q6H PRN IV NAUSEA/VOMITING 01/05/25 02:30 02/04/25 02:29 Pantoprazole Sodium (PROTonix 40MG TAB) 40 mg DAILY PO 01/05/25 09:00 02/04/25 08:59 01/23/25 09:25 40 MG Pharmacy Profile Note (Pharmacy Communication) 1 each ONCE MISC 01/16/25 14:30 01/16/25 15:12 DC Pharmacy Profile Note (Pharmacy Communication) 1 each PROTOCOL PRN MISC ETOH Withdrawal Score changes 01/05/25 02:30 01/12/25 02:29 DC Piperacillin Sod/ Tazobactam Sod (Zosyn 3.375gm+NS 50ml) 3.375 gm Q12H IV 01/05/25 02:30 01/07/25 13:24 DC 01/07/25 02:45 3.375 GM Potassium Phosphate 250 ml @ 42 mls/hr PROTOCOL PRN IV PROTOCOL 01/05/25 10:00 02/04/25 09:59 Potassium Chloride 100 ml @ 100 mls/hr AD PRN IV POTASSIUM PROTOCOL 01/05/25 02:30 01/07/25 10:12 DC Potassium Chloride 100 ml @ 100 mls/hr AD PRN IV POTASSIUM PROTOCOL 01/07/25 10:30 02/06/25 10:29 01/09/25 06:26 100 MLS/HR Potassium Chloride (K-Dur 10meq Sr Tab) 10 meq AD PRN PO POTASSIUM PROTOCOL 01/06/25 09:30 02/04/25 02:29 01/08/25 23:35 10 MEQ Potassium Chloride (K-Dur/Klor-Con 20meq) 10 meq AD PRN PO POTASSIUM PROTOCOL 01/05/25 02:30 01/06/25 09:12 DC 01/05/25 22:15 10 MEQ Potassium Chloride (K-Dur/Klor-Con 20meq) 10 meq AD PRN PO POTASSIUM PROTOCOL 01/07/25 10:30 01/07/25 10:12 DC Potassium Chloride (KCl 10% Elixir 20meq/15ml) 10 meq AD PRN PO POTASSIUM PROTOCOL 01/05/25 02:30 01/07/25 10:12 DC 01/06/25 17:16 10 MEQ Potassium Chloride (KCl 10% Elixir 20meq/15ml) 10 meq AD PRN PO POTASSIUM PROTOCOL 01/07/25 10:30 02/06/25 10:29 01/23/25 15:27 10 MEQ Sodium Bicarbonate (Sodium Bicarbonate) 1,300 mg BID PO 01/11/25 09:00 02/10/25 08:59 01/23/25 20:56 1,300 MG Sodium Chloride 1,000 ml @ 50 mls/hr Q20H IV 01/05/25 10:00 01/10/25 01:33 DC 01/09/25 05:56 50 MLS/HR Sodium Chloride 1,000 ml @ 75 mls/hr [id number] IV 01/11/25 01:00 01/11/25 13:45 DC 01/11/25 01:00 75 MLS/HR Triamcinolone Acetonide (Kenalog/ Aristocort) 1 APPLY TP BID BID TP 01/07/25 11:00 02/06/25 10:59 01/23/25 20:57 1 APPL Vancomycin HCl (Vancomycin Protocol) 1 each AD IV 01/07/25 12:30 01/07/25 12:40 DC Diagnostics / Radiology: [COPY/PASTE HERE IF NO REPORTS PLEASE DELETE SECTION] Assessment: GERD esophagitis Decompensated cirrhosis Thrombocytopenia Abnormal troponin Alcohol abuse Plan: Follow cardio recommendations Will obtain liver serologies to r/o other liver pathology Please contact our service if the patient has significant bleeding such as hematemesis and we can proceed sooner with the EGD Thanks you for allowing us to participate in the care of this patient! HILDA MUIR [employer] ADMINISTRATOR Jan 24, 2025 07:36
--- NOTE | 2025-01-24 07:39 | HMCSR ---
APPROVED REPORT EXAM: Limited two-dimensional echocardiogram INDICATION ICD: Follow up for aortic valve endocarditis Left Ventricle Left ventricular cavity size is normal. There is normal LV segmental wall motion. There is mild left ventricular wall thickness. LVEF is 60-65%. Not assessed. Atria Appears dilated. Aortic Valve Aortic valve is trileaflet and opens well. Non coronary cusp leaflet vegetation currently measures 0. 8cm x 1.15cm with a traced area of 0.9cm. Vegetation previously measured a week ago 1.81cm x1.17cm. Mitral Valve Mitral valve leaflets appear normal. No mitral valve vegetation noted. Tricuspid Valve The tricuspid valve leaflets appear normal. No tricuspid valve vegetation. Pericardium No pericardial effusion. Other Information Quality : Adequate, pt complaining of right arm upper arm pain. Conclusion Limited echo. Left ventricular cavity size is normal. LVEF is 60-65% with normal LV segmental wall motion. Non coronary cusp leaflet vegetation currently measures 0.8cm x 1.15cm with a traced area of 0.9cm ( relatively unchanged) No pericardial effusion.
[2025-01-24 08:00] VITALS: BP 109/54; PULSE 75; RESP 19; TEMP 98; O2SAT 99
--- NOTE | 2025-01-24 08:49 | HMCIMG ---
US VENOUS DOPPLER UNILATERAL HISTORY: Deep venous thrombosis COMPARISON: None TECHNIQUE: Right upper extremity venous Doppler ultrasound study was performed. FINDINGS: The right subclavian, axillary, and brachial veins are visualized. Normal flow with augmentation and compressibilities are demonstrated. Right basilic vein is patent. Noncompressible thrombus is seen in the right cephalic vein consistent with superficial thrombophlebitis. IMPRESSION: 1. Noncompressible thrombus is seen in the right cephalic vein consistent with superficial thrombophlebitis.
--- NOTE | 2025-01-24 09:15 | PN ---
SUBJECTIVE: A 44-year-old gentleman with aortic valve endocarditis. No hemodynamic decompensation. The patient has been treated with IV antibiotics. Repeated blood culture appeared to be negative. We will repeat the echocardiogram to assess the size of vegetations. The patient has no history of embolic events. The patient has methicillin-sensitive Staph aureus, which is usually aggressive; however, the valve does not appear to be in bad shape, perhaps IV antibiotics should be first line of treatment. If the patient develops resistance to the antibiotics, will have complications like embolization, persistent sepsis, or malfunctioning valve, aortic valve replacement is indicated. TID: [id number] RECEIPT: [id number]
[2025-01-24] MEDS: INSULIN GLARgine 100 UNITS/ML 10 ML VIAL SQ SCH (10:18)
--- NOTE | 2025-01-24 10:35 | PN ---
[facility] CARDIOLOGY PROGRESS NOTE Date Patient Seen: Jan 24, 2025 Time of Visit: 10:22 Interval History: This 44-year-old Latin-Vincentian male with a history of morbid obesity, liver cirrhosis, polysubstance abuse (ETOH and cocaine), suspected sleep apnea, h ypertension, hyperlipidemia, and coronary artery disease status post remote stenting of the proximal LAD 12/19/2015 has had a prolonged hospitalization thus far was admitted with sepsis, MSSA, and was found to have a 1.8 x 1.2 cm vegetation involving the aortic valve by DRAKE 01/11/2025 as well as a left atrial appendage thrombus. He has been maintained on antibiotics and Eliquis an ticoagulation. The patient was noted to have a small left calf hematoma which has been stable and Eliquis was resumed 01/23/2025. A limited follow up 2D echocardiogram 01/23/2025 demonstrated LVEF is 60-65% with normal LV segmental wall motion, Aortic valve non coronary cusp leaflet vegetation currently measures 0.8cm x 1.15cm with a traced area of 0.9cm (relatively unchanged) and no pericardial effusion. A left lower extremity venous doppler exam on 01/23/2025 demonstrated to evidence of DVT. A right upper extremity venous doppler exam earlier today demonstrated a Noncompressible thrombus is seen in the right cephalic vein consistent with superficial thrombophlebitis. The right PICC line was discontinued. He continues on IV antibiotic therapy and offers no complaints today. Physical Examination: GENERAL: No acute distress. HEAD: Normal with no signs of head trauma. EYES: PERRLA, EOMI, conjunctiva and sclera normal. NECK: Supple without JVD. There is no tenderness, lymphadenopathy, or masses. No thyromegaly. Normal carotid upstrokes without bruits. LUNGS: Clear breath sounds bilaterally HEART: Regular rate. Normal S1 and S2. No obvious murmurs, gallops, or rubs noted. No murmur audible. VASC: Peripheral pulses +2 bilaterally. EXT: Ecchymosis to the right upper arm noted. There is a left calf hematoma and increased girth of the left calf compared to the right calf. There are scattered petechial and purpuric patches. NEURO: Awake, alert, and oriented. No focal neurological deficits noted. Laboratory: Hematology Labs: Test 01/24/25 04:23 01/23/25 04:56 Range/Units White Blood Count 8.6 4.8-10.8 K/uL Red Blood Count 2.44 L 4.50-6.20 MIL/uL Hemoglobin 7.8 L 14.0-18.0 g/dL Hematocrit 23.5 L 42-54 % Mean Corpuscular Volume 96.3 79-99 fL Mean Corpuscular Hemoglobin 32.0 27.0-33.0 pg Mean Corpuscular Hemoglobin Concent 33.2 32.0-36.0 g/dL Red Cell Distribution Width 13.8 11.0-15.5 % Platelet Count 160 130-400 K/uL Mean Platelet Volume 10.4 7.5-10.5 fL Immature Granulocyte % (Auto) 0.8 0-1 % Neutrophils (%) (Auto) 79.6 H 40.0-77.0 % Lymphocytes (%) (Auto) 10.0 L 21.0-51.0 % Monocytes (%) (Auto) 9.3 3.0-13.0 % Eosinophils (%) (Auto) 0.2 0.0-8.0 % Basophils (%) (Auto) 0.1 0.0-5.0 % Neutrophils # (Auto) 6.8 1.8-7.7 K/uL Lymphocytes # (Auto) 0.9 L 1.0-4.8 K/uL Monocytes # (Auto) 0.8 0.1-1.0 K/uL Eosinophils # (Auto) 0.02 0.00-0.70 K/uL Basophils # (Auto) 0.01 0.00-0.20 K/uL Absolute Immature Granulocyte (auto 0.07 0-1 K/uL Nucleated Red Blood Cells 0.0 0.0-0.19 % Segmented Neutrophils % 79 H 40-70 % Band Neutrophils % 1 0-2 % Lymphocytes % (Manual) 16 L 22-44 % Monocytes % (Manual) 4 2-9 % Differential Comment MANUAL DIFFERENTIAL White Cell Morphology Comment CONSISTENT W/DIFF Platelet Morphology Comment ADEQUATE Red Blood Cell Morphology See comments Chemistry Labs: Test 01/24/25 05:10 01/24/25 04:23 01/23/25 04:56 Range/Units Whole Blood Glucose 155 H 70-110 MG/DL Sodium Level 136 136-145 mmol/L Potassium Level 4.2 3.5-5.1 mmol/L Chloride Level 106 101-111 mmol/L Carbon Dioxide Level 22 21-32 mmol/L Blood Urea Nitrogen 19 H 7-18 mg/dL Creatinine 1.1 0.5-1.3 mg/dL Glomerular Filtration Rate Calc 85 >90 mL/min Random Glucose 187 #H 70-105 mg/dL Total Calcium 7.7 L 8.5-10.1 mg/dL Magnesium Level 1.70 L 1.80-2.40 mg/dL Phosphorus Level 3.9 2.5-4.9 mg/dL Total Bilirubin 0.6 0.2-1.0 mg/dL Aspartate Amino Transf (AST/SGOT) 11 10-37 U/L Alanine Aminotransferase (ALT/SGPT) 13 12-78 U/L Alkaline Phosphatase 71 50-136 U/L Total Protein 5.6 L 6.0-8.3 g/dL Albumin 1.9 L 3.5-5.0 g/dL Coagulation Labs: Test 01/24/25 04:23 Range/Units Prothrombin Time 10.9 9.6-11.6 SEC Prothromb Time International Ratio 1.03 0.85-1.15 Activated Partial Thromboplast Time 36.5 H 26.3-35.5 SEC Assessment: -Severe sepsis -Bacteremia (MSSA) -UTI (Klebsiella) -Strep A positive -Acute cocaine intoxication -Acute cholecystitis -Fidelina esophagitis identified on EGD done 01/11/2025 -Bacterial endocarditis affecting the aortic valve (1.81x1.17 cm mass attached to the noncoronary cusp leaflet) identified on DRAKE done 01/11/2025 -Left atrial appendage thrombus identified on DRAKE done 01/11/2025 -Normal LV systolic function (LVEF: 60-65% by echo done 01/11/2025) -Elevated troponin (type II OK) -ITP -Liver cirrhosis -Esophagitis by EGD 01/11/2025 -CAD s/p PCI with IA Integrilin, aspiration thrombectomy, PTCA, and KISHORE placement (Promus 4.0x16 mm) in the proximal LAD done on 12/19/2015 -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 of the RCA cursing between the aorta and PA trunk) identified on [facility] done 12/19/2015 -HTN -HLP -Polysubstance abuse (ETOH and cocaine) -Suspected MARCOS/OHS -Morbid obesity -Noncompliance Plan: Bacterial endocarditis affecting the aortic valve (1.81x1.17 cm mass attached to the noncoronary cusp leaflet) identified on DRAKE done 01/11/2025 -Limited follow up 2D echocardiogram 01/23/2025 demonstrated vegetation measuring 0.8cm x 1.15cm with a traced area of 0.9cm (relatively unchanged) -Positive blood cultures collected 01/05/2025, 01/07/2025, 01/09/2025, 01/11/2025 -Blood cultures collected and 01/19/2025-negative -The patient will continue on IV antibiotic therapy which has been tailored by ID, with plans to continue inpatient for IV antibiotic therapy Left atrial appendage thrombus identified on DRAKE done 01/11/2025 -Continue Eliquis5 mg b.i.d. which has a lower bleeding risk than warfarin anticoagulation Elevated troponin -HS troponin I peak: 195 -We will restart the patient on aspirin 81 mg daily. He is not a candidate for statin therapy due to his liver dysfunction. Left thigh swelling, without evidence of DVT -A left lower extremity venous doppler exam on 01/23/2025 demonstrated to evidence of DVT. -Superficial (right cephalic vein) thrombus: -continue current therapy unchanged PHYSICIAN ATTESTATION OF PHYSICIAN STOCKROOM COORDINATOR DOCUMENTATION: I attest that I was physically present for the conti portions of the service and evaluated the patient with the Physician Superintendent Meters, and I reviewed and discussed the case with the Physician Superintendent Meters and made modifications to the Physician Superintendent Meters's findings and plans of care as documented above TAMERA REYNA Jan 24, 2025 10:35 KARMA LUNDBERG MD Jan 27, 2025 09:39
[2025-01-24 12:00] VITALS: BP 106/60; PULSE 91; RESP 19; TEMP 98
--- NOTE | 2025-01-24 14:56 | HMCIMG ---
CHEST 1VW HISTORY: PICC line placement COMPARISON: None FINDINGS: A frontal projection of the chest was obtained. There are bilateral pulmonary infiltrates suggestive of pulmonary vascular congestion with possible superimposed pneumonitis. The heart is borderline enlarged. PICC line is seen entering from the left with distal tip in the plane of the superior vena cava. No evidence of aortic calcification is seen. IMPRESSION: 1. Bilateral pulmonary infiltrates are seen suggestive of pulmonary vascular congestion with possible superimposed pneumonitis.
--- NOTE | 2025-01-24 15:35 | PN ---
INFECTIOUS DISEASE PROGRESS NOTE Date of Service: Jan 24, 2025 SUBJECTIVE: This is a 44-year-old male patient who was admitted for chief complaint of weakness and status post fall at home. A Urine culture collected on admission came back positive for Klebsiella pneumoniae and the blood cultures results came back positive for Methicillin sensitive Staphylococcus aureus 2 of 2 sets and the reason for this consult. A 2D echo done on admission showed Aortic valve endocarditis and DRAKE done on 01/11/2025 with findings of aortic valve vegetation and Left atrial appendage clot. Patient was seen and examined at bedside in room 412. Patient is awake, alert and oriented x 3. Patient continues on gentamicin, nafcillin and fluconazole p.o. Patient will need antibiotics for total of 6 weeks. Patient is pending a PICC line placement. Case management to follow up with the laboratory department to see if patient is sensitive to daptomycin to arrange for daily IV antibiotics if not sensitive then patient will need to continue on gentamicin and nafcillin IV. No other issues reported by nursing. PHYSICAL EXAM EYES: Anicteric. Pupils equal and reactive. HENT: No oral thrush seen, moist Oral mucosa. NECK: Supple, no JVD or thyromegaly. LUNGS: Good air entry. No rales, no rhonchi. CARDIOVASCULAR: S1, S2 regular. No murmur heard. ABDOMEN: Obese but Soft. CENTRAL NERVOUS SYSTEM: Awake, alert, oriented x 3. SKIN: No rashes, no swelling. LYMPHATICS: No peripheral lymphadenopathy MUSCULOSKELETAL: No joint swelling, erythema or tenderness. Weakness. EXTREMITIES: No cyanosis or clubbing. Edematous, resolving. BACK: No deformity, no pressure ulcer. GENITOURINARY: No dysuria or hematuria. Vital Sign (Last 12 Hours) 01/24/25 01/24/25 01/24/25 01/24/25 03:44 08:00 08:00 12:00 Temp 98.1 98.1 98.1 Pulse 86 75 91 Resp 18 19 19 B/P (MAP) 115/60 109/54 106/60 Pulse Ox 98 99 99 100 O2 Delivery Room Air Room Air Room Air* Room Air O2 Flow Rate 0 FiO2 21 21 Intake & Output (last 24hrs) 01/23/25 01/23/25 01/24/25 15:00 23:00 07:00 Intake Total 450.0 ml Output Total 300 ml 700 ml Balance -300 ml -250.0 ml LABS: Laboratory: Test 01/24/25 11:34 01/24/25 04:23 01/23/25 11:09 01/23/25 04:56 Range/Units Whole Blood Glucose 160 H 70-110 MG/DL White Blood Count 8.6 4.8-10.8 K/uL Red Blood Count 2.44 L 4.50-6.20 MIL/uL Hemoglobin 7.8 L 14.0-18.0 g/dL Hematocrit 23.5 L 42-54 % Mean Corpuscular Volume 96.3 79-99 fL Mean Corpuscular Hemoglobin 32.0 27.0-33.0 pg Mean Corpuscular Hemoglobin Concent 33.2 32.0-36.0 g/dL Red Cell Distribution Width 13.8 11.0-15.5 % Platelet Count 160 130-400 K/uL Mean Platelet Volume 10.4 7.5-10.5 fL Immature Granulocyte % (Auto) 0.8 0-1 % Neutrophils (%) (Auto) 79.6 H 40.0-77.0 % Lymphocytes (%) (Auto) 10.0 L 21.0-51.0 % Monocytes (%) (Auto) 9.3 3.0-13.0 % Eosinophils (%) (Auto) 0.2 0.0-8.0 % Basophils (%) (Auto) 0.1 0.0-5.0 % Neutrophils # (Auto) 6.8 1.8-7.7 K/uL Lymphocytes # (Auto) 0.9 L 1.0-4.8 K/uL Monocytes # (Auto) 0.8 0.1-1.0 K/uL Eosinophils # (Auto) 0.02 0.00-0.70 K/uL Basophils # (Auto) 0.01 0.00-0.20 K/uL Absolute Immature Granulocyte (auto 0.07 0-1 K/uL Nucleated Red Blood Cells 0.0 0.0-0.19 % Prothrombin Time 10.9 9.6-11.6 SEC Prothromb Time International Ratio 1.03 0.85-1.15 Activated Partial Thromboplast Time 36.5 H 26.3-35.5 SEC Sodium Level 136 136-145 mmol/L Potassium Level 4.2 3.5-5.1 mmol/L Chloride Level 106 101-111 mmol/L Carbon Dioxide Level 22 21-32 mmol/L Blood Urea Nitrogen 19 H 7-18 mg/dL Creatinine 1.1 0.5-1.3 mg/dL Glomerular Filtration Rate Calc 85 >90 mL/min Random Glucose 187 #H 70-105 mg/dL Total Calcium 7.7 L 8.5-10.1 mg/dL Magnesium Level 1.70 L 1.80-2.40 mg/dL Gentamicin Level Trough 2.2 #H 0.0-2.0 mcg/mL Segmented Neutrophils % 79 H 40-70 % Band Neutrophils % 1 0-2 % Lymphocytes % (Manual) 16 L 22-44 % Monocytes % (Manual) 4 2-9 % Differential Comment MANUAL DIFFERENTIAL White Cell Morphology Comment CONSISTENT W/DIFF Platelet Morphology Comment ADEQUATE Red Blood Cell Morphology See comments Phosphorus Level 3.9 2.5-4.9 mg/dL Total Bilirubin 0.6 0.2-1.0 mg/dL Aspartate Amino Transf (AST/SGOT) 11 10-37 U/L Alanine Aminotransferase (ALT/SGPT) 13 12-78 U/L Alkaline Phosphatase 71 50-136 U/L Total Protein 5.6 L 6.0-8.3 g/dL Albumin 1.9 L 3.5-5.0 g/dL Gentamicin Level Peak 4.2 # 4.0-8.0 mcg/mL ASSESSMENT: Methicillin-susceptible Staphylococcus aureus bacteremia status post DRAKE on 01/11/2025 with findings of aortic valve vegetation and Left atrial appendage clot. Aortic valve endocarditis on 2D echo. Urinary tract infection with Klebsiella pneumoniae. Chronic scalp folliculitis. Leukocytosis. Thrombocytopenia requiring platelet transfusion, resolving. Acute on chronic renal failure, resolving. Substance abuse, Cocaine and ETOH. Streptococcus viral infection. Uncontrolled diabetes mellitus. Debility. PLAN: Continue Nafcillin. Continue Gentamicin per pharmacy renal dosing. Continue fluconazole p.o.. Continue on Eliquis. Avoid nephrotoxic medications. Continue GI prophylaxis. Information Technology Project Manager following patient. Continue monitoring glucose levels. Patient will need 6 weeks of IV antibiotics. Case management to follow up with the laboratory department to see if patient is sensitive to daptomycin. This case was reviewed and discussed with my supervising physician and the above assessment and plan was formulated and agreed upon. ATTESTATION BY PHYSICIAN I have seen and examined the patient. I reviewed the documentation, medical decision making, and treatment plan as noted by the mid-level provider above. I agree with the findings and plan of care. JANUARY CARLSON MD, [facility] Jan 24, 2025 15:35
--- NOTE | 2025-01-24 15:37 | NUR ---
NUTRITION F/U Wt. increase of 8 lbs. Pt reported no concerns with Glucerna supplement and Prostat Jello, last BM 01/23/25, PO intake of 70%. Pt reported skipping breakfast due to waking up late and drinks Glucerna instead. Pt is moderate risk for PCM due to poor oral intake. Pt adherence expectance is good. Recommendations: - Continue Carb Consistent Diet 75 g (1800 2000) with mechanical soft modifier - Continue Glucerna chocolate supplement TID all trays - Continue Prostat Jello 30 ml TID all trays - Monitor PO intake - Reweigh as able - Monitor care goals RD to follow + available for consult per protocol SIGNED BY DIETETIC STUDENT HILDA ZAMARRIPA Addendum: 01/24/25 at [address] Amended: Links added.
[2025-01-24 16:00] VITALS: BP 134/60; PULSE 81; RESP 19; TEMP 97.9
--- NOTE | 2025-01-24 17:41 | PN ---
FOLLOWUP PROGRESS NOTE SUBJECTIVE: A 44-year-old male with a history of diabetes mellitus and hypertension. He initially presented, found to have endocarditis. The patient has had acute renal failure in the hospital. Creatinine has actually stabilized. He remains on the IV antibiotics. The patient has been also seen by Cardiovascular Surgery and the patient is being seen as a followup visit for all of the above. REVIEW OF SYSTEMS: GENERAL: The patient is feeling weak and tired. HEENT: No change in vision. No change in hearing. CARDIOVASCULAR: There is no current chest pains or palpitations. PULMONARY: There is no shortness of breath. GASTROINTESTINAL: The patient is tolerating a diet. MUSCULOSKELETAL: Complains of weakness. PHYSICAL EXAMINATION: VITAL SIGNS: Blood pressure 109/54, pulse in the 70s. He is afebrile. GENERAL: He is a chronically ill male, much older than appearing. HEENT: Head is atraumatic. Pupils equal, roving to light. Oropharynx is without exudate. Nares clear. NECK: There is no JVP. There is no thyromegaly, no mass. CARDIOVASCULAR: Regular. There is no S3, S4 gallop. LUNGS: Coarse with equal thoracic movement. ABDOMEN: Soft, nondistended, nontender. EXTREMITIES: Reveal no clubbing, no cyanosis. NEUROLOGIC: He is awake. He is alert. He is at his baseline. LABORATORY DATA: BUN 19, creatinine is 1, sodium 136. IMPRESSION: * Acute on chronic renal failure. * Endocarditis. * Diabetes mellitus. * Hypertension. PLAN: The patient's creatinine has stabilized. The patient remains on the IV antibiotics. Repeat cultures are all noted. We will continue to follow closely. The patient is being seen by case management for final disposition for the long-term IV antibiotics. TID: [id number] RECEIPT: [id number]
--- NOTE | 2025-01-24 18:42 | NUR ---
PLACED CALL TO DR LUO IN REGARD TO RESULTS OF PICC LINE. PER DR LUO OK TO ACCESS PICC LINE
[2025-01-24 19:00] VITALS: O2SAT 98
--- NOTE | 2025-01-24 19:40 | PN ---
endocrinology progress note dos: 01/24/25 subjective: he is off insulin drip and on insulin injections. glucose control is improving. hba1c 8.5% Past Medical History Patient History: Patient reports no known family medical history. ADDITIONAL PAST MEDICAL HISTORY: [Denies any past medical history, fatty liver by CT on 01/05/2025] SOCIAL HISTORY: [Patient smokes one pack of cigarettes daily but only5 times a week. Patient [id number] beers daily but also only5 times a week. Patient reports occasional use of both marijuana and cocaine. Patient denies any other illegal drug use. 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 Patient has poor access to health care due to lack of health insurance. Patient is typically independent of all his ADLs. Patient denies difficulty pain is bills. Patient lives with his daughter Hannah Jin] SURGICAL HISTORY: [Heart stent] Allergies: Coded Allergies: No Known Drug Allergies (Unverified Allergy, Unknown, 12/18/15) Scheduled Amlodipine Besylate (Amlodipine Besylate), 5 MG PO DAILY Atorvastatin Calcium (Lipitor), 40 MG PO HS Hydrochlorothiazide (Hydrochlorothiazide), 25 MG PO DAILY Lisinopril (Lisinopril), 20 MG PO DAILY Losartan Potassium (Losartan Potassium), 50 MG PO DAILY Methylprednisolone (Medrol), 4 MG PO AD Tamsulosin HCl (Flomax), 0.4 MG PO DAILY [Aspirin], 325 MG PO DAILY [Prasugrel Hcl], 10 MG PO DAILY Scheduled PRN Ketorolac Tromethamine (Ketorolac Tromethamine), 10 MG PO TID PRN for PAIN ASSESSMENT: DKA-resolved he is off insulin drip. hba1c 8.5% bicarb New onset Uncontrolled Diabetes mellitus type2, POA hyperglycemia is improving. Severe sepsis, POA Urinary tract infection, POA Endocarditis and staph bacteremia Strep pharyngitis, POA Leukocytosis, POA Hyperlactatemia, POA Acute kidney injury, POA Thrombocytopenia, POA Elevated troponin, POA Substance abuse, POA, cocaine Alcohol dependence, POA Tobacco dependence, POA PLAN: continue lantus 15 units daily continue regular insulin 5 units qac before meals continue medium dose ssi keep glucose less than 180 mg/dl monitor glucose [id number]. patient will need insulin at discharge. Vitals/Labs Vital Signs Date Time Temp Pulse Resp B/P (MAP) Pulse Ox O2 Delivery O2 Flow Rate FiO2 01/24/25 16:00 97.9 81 19 134/60 100 Room Air 01/24/25 08:00 0 21 Laboratory Tests 01/24/25 04:23 Medications Current Medications Sodium Chloride 1,000 ml @ 125 mls/hr ONCE ONCE IV Last administered on 01/05/25at 00:13; Start 01/04/25 at 23:00; Stop 01/05/25 at 06:59; Status DC Aspirin 81 mg ONCE ONCE PO Last administered on 01/05/25at 00:14; Start 01/04/25 at 23:00; Stop 01/04/25 at 23:01; Status DC Ondansetron HCl 4 mg ONCE ONCE IVP Last administered on 01/05/25at 00:13; Start 01/04/25 at 23:00; Stop 01/04/25 at 23:01; Status DC Potassium Chloride 100 ml @ 50 mls/hr ONCE ONCE IV Last administered on 01/05/25at 00:13; Start 01/05/25 at 00:00; Stop 01/05/25 at 01:59; Status DC Potassium Chloride 100 ml @ 50 mls/hr ONCE ONCE IV Last administered on 01/05/25at 03:12; Start 01/05/25 at 00:00; Stop 01/05/25 at 01:59; Status DC Thiamine HCl 100 mg ONCE ONCE IVP Last administered on 01/05/25at 01:01; Start 01/05/25 at 00:00; Stop 01/05/25 at 00:01; Status DC Acetaminophen 500 mg STK-MED ONCE .ROUTE; Start 01/05/25 at 00:28; Stop 01/05/25 at 00:28; Status DC Cefepime HCl 1 gm ONCE ONCE IVPB Last administered on 01/05/25at 01:01; Start 01/05/25 at 01:00; Stop 01/05/25 at 01:02; Status DC Vancomycin HCl 750 mg ONCE ONCE IVPB Last administered on 01/05/25at 02:12; Start 01/05/25 at 01:00; Stop 01/05/25 at 01:02; Status DC Sodium Chloride 250 ml ONCE ONCE IVPB Last administered on 01/05/25at 02:12; Start 01/05/25 at 01:00; Stop 01/05/25 at 01:02; Status DC Acetaminophen 1,000 mg ONCE ONCE PO Last administered on 01/05/25at 00:30; Start 01/05/25 at 01:00; Stop 01/05/25 at 01:02; Status DC Aspirin 81 mg DAILY PO; Start 01/05/25 at 09:00; Stop 01/05/25 at 09:53; Status DC Nitroglycerin 0.4 mg AD PRN SL; Start 01/05/25 at 02:30; Stop 02/04/25 at 02:29 Aspirin 162 mg ONCE ONCE PO Last administered on 01/05/25at 03:06; Start 01/05/25 at 02:30; Stop 01/05/25 at 02:31; Status DC Insulin Human Regular INSULIN SLIDING SCAL... ACHS SQ Last administered on 01/05/25at 07:59; Start 01/05/25 at 07:30; Stop 01/05/25 at 09:57; Status DC Lactated Ringer's 3,429 ml @ 1,143 mls/hr ONCE ONCE IV Last administered on 01/05/25at 03:12; Start 01/05/25 at 02:30; Stop 01/05/25 at 05:29; Status DC Piperacillin Sod/ Tazobactam Sod 3.375 gm Q12H IV Last administered on 01/07/25at 02:45; Start 01/05/25 at 02:30; Stop 01/07/25 at 13:24; Status DC Potassium Chloride 100 ml @ 100 mls/hr AD PRN IV; Start 01/05/25 at 02:30; Stop 01/07/25 at 10:12; Status DC Potassium Chloride 10 meq AD PRN PO Last administered on 01/06/25at 17:16; Start 01/05/25 at 02:30; Stop 01/07/25 at 10:12; Status DC Potassium Chloride 10 meq AD PRN PO Last administered on 01/05/25at 22:15; Start 01/05/25 at 02:30; Stop 01/06/25 at 09:12; Status DC Acetaminophen 650 mg Q6H PRN PO Last administered on 01/24/25at 17:10; Start 01/05/25 at 02:30; Stop 02/04/25 at 02:29 Pantoprazole Sodium 40 mg DAILY PO Last administered on 01/24/25at 10:04; Start 01/05/25 at 09:00; Stop 02/04/25 at 08:59 Ondansetron HCl 4 mg Q6H PRN IV; Start 01/05/25 at 02:30; Stop 02/04/25 at 02:29 Morphine Sulfate 2 mg Q4H PRN IVP; Start 01/05/25 at 02:30; Stop 01/12/25 at 02:29; Status DC Hydralazine HCl 10 mg Q6H PRN IV; Start 01/05/25 at 02:30; Stop 01/05/25 at 09:53; Status DC Benzocaine 1 each Q4H PRN MM; Start 01/05/25 at 02:30; Stop 02/04/25 at 02:29 Magnesium Sulfate 50 ml @ 0 mls/hr PROTOCOL PRN IV Last administered on 01/24/25at 05:54; Start 01/05/25 at 02:30; Stop 02/04/25 at 02:29 Lactated Ringer's 1,000 ml @ 100 mls/hr Q10H IV Last administered on 01/05/25at 02:30; Start 01/05/25 at 02:30; Stop 01/05/25 at 09:51; Status DC Chlordiazepoxide HCl 25 mg Q8H PO Last administered on 01/10/25at 22:23; Start 01/05/25 at 02:30; Stop 01/11/25 at 11:39; Status DC Lorazepam 1 mg Q4H PRN IVP; Start 01/05/25 at 02:30; Stop 01/12/25 at 02:29; Status DC Pharmacy Profile Note 1 each PROTOCOL PRN MISC; Start 01/05/25 at 02:30; Stop 01/12/25 at 02:29; Status DC Nicotine 21 mg DAILY TD Last administered on 01/24/25at 10:05; Start 01/05/25 at 09:00; Stop 02/04/25 at 08:59 Sodium Chloride 1,000 ml @ 50 mls/hr Q20H IV Last administered on 01/09/25at 05:56; Start 01/05/25 at 10:00; Stop 01/10/25 at 01:33; Status DC Potassium Phosphate 250 ml @ 42 mls/hr PROTOCOL PRN IV; Start 01/05/25 at 10:00; Stop 02/04/25 at 09:59 Hydralazine HCl 5 mg Q6H PRN IV Last administered on 01/10/25at 22:24; Start 01/05/25 at 14:30; Stop 02/04/25 at 14:29 Doxycycline Hyclate 250 ml @ 125 mls/hr Q12H IV Last administered on 01/06/25at 09:30; Start 01/05/25 at 10:00; Stop 01/06/25 at 21:05; Status DC Potassium Chloride 40 meq ONCE ONCE PO Last administered on 01/05/25at 10:25; Start 01/05/25 at 10:00; Stop 01/05/25 at 10:01; Status DC Potassium Chloride 100 ml @ 50 mls/hr ONCE ONCE IV Last administered on 01/05/25at 10:25; Start 01/05/25 at 10:00; Stop 01/05/25 at 11:59; Status DC Dextrose 50 ml AD PRN IV; Start 01/05/25 at 10:00; Stop 02/04/25 at 09:59 Glucagon 1 mg AD PRN IM; Start 01/05/25 at 10:00; Stop 02/04/25 at 09:59 Insulin Human Regular INSULIN SLIDING SCAL... ACHS SQ Last administered on 01/06/25at 11:50; Start 01/05/25 at 11:30; Stop 01/06/25 at 16:43; Status DC Dexamethasone Sodium Phosphate 10 mg ONCE ONCE IVP Last administered on 01/05/25at 17:27; Start 01/05/25 at 13:30; Stop 01/05/25 at 14:03; Status DC Insulin Glargine 20 units HS SQ; Start 01/06/25 at 21:00; Stop 01/06/25 at 21:05; Status DC Potassium Chloride 10 meq AD PRN PO Last administered on 01/08/25at 23:35; Start 01/06/25 at 09:30; Stop 02/04/25 at 02:29 Dexamethasone Sodium Phosphate 40 mg DAILY ONCE IV; Start 01/07/25 at 09:00; Stop 01/06/25 at 13:27; Status DC Dexamethasone Sodium Phosphate 40 mg/Sodium Chloride 50 ml @ 100 mls/hr DAILY IV Last administered on 01/08/25at 09:34; Start 01/06/25 at 14:00; Stop 01/08/25 at 12:16; Status DC Insulin Human Regular INSULIN SLIDING SCAL... ACHS SQ Last administered on 01/06/25at 17:17; Start 01/06/25 at 17:00; Stop 01/07/25 at 13:32; Status DC Insulin Human Regular 100 unit/ Sodium Chloride 100 ml @ 0 mls/hr AD PRN IV Last administered on 01/09/25at 19:10; Start 01/06/25 at 19:30; Stop 01/10/25 at 06:00; Status DC Insulin Glargine 20 units HS SQ Last administered on 01/06/25at 21:33; Start 01/06/25 at 21:30; Stop 01/07/25 at 10:24; Status DC Doxycycline Hyclate 250 ml @ 125 mls/hr Q12H IV Last administered on 01/16/25at 10:13; Start 01/06/25 at 21:30; Stop 01/16/25 at 14:23; Status DC Chlordiazepoxide HCl 25 mg STK-MED ONCE .ROUTE; Start 01/07/25 at 02:35; Stop 01/07/25 at 02:41; Status DC Piperacillin Sod/ Tazobactam Sod 50 ml @ As Directed STK-MED ONCE .ROUTE; Start 01/07/25 at 02:39; Stop 01/07/25 at 02:41; Status DC Potassium Chloride 0 ml @ As Directed STK-MED ONCE IV; Start 01/07/25 at 07:28; Stop 01/07/25 at 07:31; Status DC Potassium Chloride 40 meq ONCE ONCE PO Last administered on 01/07/25at 09:44; Start 01/07/25 at 10:00; Stop 01/07/25 at 10:01; Status DC Potassium Chloride 100 ml @ 100 mls/hr AD PRN IV Last administered on 01/09/25at 06:26; Start 01/07/25 at 10:30; Stop 02/06/25 at 10:29 Potassium Chloride 10 meq AD PRN PO Last administered on 01/23/25at 15:27; Start 01/07/25 at 10:30; Stop 02/06/25 at 10:29 Potassium Chloride 10 meq AD PRN PO; Start 01/07/25 at 10:30; Stop 01/07/25 at 10:12; Status DC Insulin Glargine 15 units Q12H SQ Last administered on 01/09/25at 13:10; Start 01/07/25 at 21:30; Stop 01/09/25 at 23:18; Status DC Insulin Glargine 10 units ONCE ONCE SQ Last administered on 01/07/25at 10:40; Start 01/07/25 at 10:30; Stop 01/07/25 at 10:31; Status DC Thiamine HCl 300 mg DAILY ONCE IVP Last administered on 01/07/25at 10:39; Start 01/07/25 at 10:30; Stop 01/07/25 at 10:31; Status DC Multivitamins Therapeutic 1 tab DAILY PO Last administered on 01/24/25at 10:04; Start 01/07/25 at 10:30; Stop 02/06/25 at 10:29 Folic Acid 1 mg DAILY PO Last administered on 01/24/25at 10:04; Start 01/07/25 at 10:30; Stop 02/06/25 at 10:29 Triamcinolone Acetonide 1 APPLY TP BID BID TP Last administered on 01/24/25at 09:00; Start 01/07/25 at 11:00; Stop 02/06/25 at 10:59 Vancomycin HCl 1 each AD IV; Start 01/07/25 at 12:30; Stop 01/07/25 at 12:40; Status DC Cefazolin Sodium 2 gm Q12H IVPB Last administered on 01/16/25at 01:12; Start 01/07/25 at 13:30; Stop 01/16/25 at 14:43; Status DC Furosemide 20 mg Q12H IV Last administered on 01/10/25at 19:40; Start 01/07/25 at 16:00; Stop 01/11/25 at 00:56; Status DC Calcium Gluconate 1 gm/Sodium Chloride 100 ml @ 0 mls/hr AD PRN IV Last administered on 01/08/25at 23:32; Start 01/08/25 at 02:30; Stop 02/07/25 at 02:29 Dexamethasone Sodium Phosphate 20 mg/Sodium Chloride 52 ml @ 100 mls/hr DAILY IV Last administered on 01/24/25at 10:03; Start 01/09/25 at 09:00; Stop 02/08/25 at 08:59 Insulin Glargine 20 units Q12H SQ; Start 01/10/25 at 09:30; Stop 01/10/25 at 12:58; Status DC Lactated Ringer's 1,000 ml @ 125 mls/hr Q8H IV Last administered on 01/10/25at 13:07; Start 01/10/25 at 01:30; Stop 01/10/25 at 19:40; Status DC Lactated Ringer's 1,000 ml BOLUS ONCE IV Last administered on 01/10/25at 09:20; Start 01/10/25 at 07:30; Stop 01/10/25 at 07:31; Status DC Lidocaine HCl 100 mg STK-MED ONCE .ROUTE; Start 01/10/25 at 08:01; Stop 01/10/25 at 08:02; Status DC Propofol 200 mg STK-MED ONCE IV; Start 01/10/25 at 08:02; Stop 01/10/25 at 08:02; Status DC Glycopyrrolate 1 mg STK-MED ONCE .ROUTE; Start 01/10/25 at 08:02; Stop 01/10/25 at 08:02; Status DC Ketamine HCl 50 mg STK-MED ONCE .ROUTE; Start 01/10/25 at 08:03; Stop 01/10/25 at 08:03; Status DC Insulin Glargine 25 units Q12H SQ Last administered on 01/10/25at 22:19; Start 01/10/25 at 21:30; Stop 01/11/25 at 00:50; Status DC Insulin Human Regular INSULIN SLIDING SCAL... Q6H6 SQ Last administered on 01/11/25at 00:45; Start 01/10/25 at 18:00; Stop 01/11/25 at 00:50; Status DC Insulin Glargine 30 units Q12H SQ Last administered on 01/11/25at 10:50; Start 01/11/25 at 09:30; Stop 01/11/25 at 20:13; Status DC Insulin Human Regular INSULIN SLIDING SCAL... Q4H SQ Last administered on 01/11/25at 20:49; Start 01/11/25 at 02:00; Stop 01/11/25 at 23:59; Status DC Sodium Chloride 1,000 ml @ 75 mls/hr [id number] IV Last administered on 01/11/25at 01:00; Start 01/11/25 at 01:00; Stop 01/11/25 at 13:45; Status DC Sodium Bicarbonate 1,300 mg BID PO Last administered on 01/24/25at 10:04; Start 01/11/25 at 09:00; Stop 02/10/25 at 08:59 Insulin Human Regular 8 unit TIDAC SQ Last administered on 01/13/25at 19:47; Start 01/11/25 at 07:30; Stop 01/14/25 at 07:03; Status DC Lidocaine HCl 100 mg STK-MED ONCE .ROUTE; Start 01/11/25 at 07:00; Stop 01/11/25 at 07:00; Status DC Atropine Sulfate 1 mg STK-MED ONCE IVP; Start 01/11/25 at 07:00; Stop 01/11/25 at 07:00; Status DC Propofol 200 mg STK-MED ONCE IV; Start 01/11/25 at 07:00; Stop 01/11/25 at 07:00; Status DC Succinylcholine Chloride 200 mg STK-MED ONCE .ROUTE; Start 01/11/25 at 07:00; Stop 01/11/25 at 07:00; Status DC Ketamine HCl 50 mg STK-MED ONCE .ROUTE; Start 01/11/25 at 07:00; Stop 01/11/25 at 07:01; Status DC Glycopyrrolate 1 mg STK-MED ONCE .ROUTE; Start 01/11/25 at 07:01; Stop 01/11/25 at 07:01; Status DC Sodium Chloride 10 ml STK-MED ONCE .ROUTE; Start 01/11/25 at 07:01; Stop 01/11/25 at 07:01; Status DC Phenylephrine HCl 10 mg STK-MED ONCE IV; Start 01/11/25 at 07:01; Stop 01/11/25 at 07:01; Status DC Midazolam HCl 2 mg STK-MED ONCE .ROUTE; Start 01/11/25 at 07:08; Stop 01/11/25 at 07:08; Status DC Ondansetron HCl 4 mg STK-MED ONCE .ROUTE; Start 01/11/25 at 07:34; Stop 01/11/25 at 07:35; Status DC Chlordiazepoxide HCl 25 mg Q8H PRN PO; Start 01/11/25 at 12:00; Stop 01/12/25 at 02:29; Status DC Heparin Sodium/ Dextrose 250 ml @ 0 mls/hr PROTOCOL IV Last administered on 01/17/25at 16:09; Start 01/11/25 at 14:30; Stop 01/18/25 at 13:28; Status DC Fluconazole 200 mg ONCE ONCE PO Last administered on 01/11/25at 15:18; Start 01/11/25 at 15:30; Stop 01/11/25 at 15:31; Status DC Fluconazole 200 mg DAILY PO Last administered on 01/24/25at 10:05; Start 01/12/25 at 09:00; Stop 02/11/25 at 08:59 Lactobacillus Rhamnosus 1 each DAILY PO Last administered on 01/24/25at 10:05; Start 01/12/25 at 09:00; Stop 02/11/25 at 08:59 Insulin Glargine 30 units DAILY SQ Last administered on 01/12/25at 11:25; Start 01/12/25 at 09:00; Stop 01/14/25 at 07:03; Status DC Insulin Human Regular INSULIN SLIDING SCAL... Q4H SQ Last administered on 01/18/25at 16:59; Start 01/11/25 at 23:59; Stop 01/18/25 at 19:33; Status DC Heparin Sodium (Porcine) 4,000 unit ONCE ONCE IV Last administered on 01/12/25at 22:36; Start 01/12/25 at 22:30; Stop 01/12/25 at 22:31; Status DC Iohexol 35,000 mg STK-MED ONCE IV; Start 01/13/25 at 12:56; Stop 01/13/25 at 12:57; Status DC Insulin Glargine 20 units DAILY SQ Last administered on 01/23/25at 09:41; Start 01/14/25 at 09:00; Stop 01/23/25 at 21:37; Status DC Insulin Human Regular 5 unit TIDAC SQ Last administered on 01/24/25at 17:19; Start 01/14/25 at 07:30; Stop 02/13/25 at 07:29 Aspirin 81 mg DAILY PO Last administered on 01/24/25at 10:04; Start 01/16/25 at 09:00; Stop 02/15/25 at 08:59 Pharmacy Profile Note 1 each ONCE MISC; Start 01/16/25 at 14:30; Stop 01/16/25 at 15:12; Status DC Dexamethasone Sodium Phosphate 10 mg STK-MED ONCE .ROUTE; Start 01/16/25 at 14:38; Stop 01/16/25 at 14:38; Status DC Dexamethasone Sodium Phosphate 10 mg STK-MED ONCE .ROUTE; Start 01/16/25 at 14:39; Stop 01/16/25 at 14:40; Status DC Cefazolin Sodium 2 gm Q8H IVPB Last administered on 01/17/25at 05:07; Start 01/16/25 at 21:30; Stop 01/17/25 at 13:22; Status DC Gentamicin Sulfate/Sodium Chloride 100 ml @ 200 mls/hr Q12H IV Last administered on 01/17/25at 16:00; Start 01/16/25 at 15:30; Stop 01/18/25 at 03:39; Status DC Acetaminophen 650 mg Q6H PRN PO Last administered on 01/24/25at 01:44; Start 01/16/25 at 17:30; Stop 02/15/25 at 17:29 Nafcillin Sodium 2 gm Q6H6 IV Last administered on 01/24/25at 12:34; Start 01/17/25 at 18:00; Stop 01/27/25 at 17:59 Melatonin 20 mg ONCE ONCE PO Last administered on 01/17/25at 22:00; Start 01/17/25 at 21:30; Stop 01/17/25 at 21:37; Status DC Gentamicin Sulfate/Sodium Chloride 100 ml @ 200 mls/hr Q12H IV Last administered on 01/20/25at 05:38; Start 01/18/25 at 04:00; Stop 01/20/25 at 06:41; Status DC Nystatin 100,000 UNITS 1 ML TO E... QID PO Last administered on 01/24/25at 17:10; Start 01/18/25 at 09:00; Stop 02/17/25 at 08:59 Apixaban 10 mg BID PO; Start 01/18/25 at 21:00; Stop 01/18/25 at 13:52; Status DC Apixaban 10 mg BID PO Last administered on 01/21/25at 08:45; Start 01/18/25 at 21:00; Stop 01/21/25 at 16:00; Status DC Apixaban 5 mg BID PO; Start 01/25/25 at 21:00; Stop 01/21/25 at 16:00; Status DC Insulin Human Regular INSULIN SLIDING SCAL... ACHS SQ Last administered on 01/24/25at 17:18; Start 01/18/25 at 21:00; Stop 02/17/25 at 20:59 Gentamicin Sulfate 150 mg/ Sodium Chloride 100 ml @ 100 mls/hr Q12H IV Last administered on 01/21/25at 16:00; Start 01/20/25 at 16:00; Stop 01/22/25 at 03:27; Status DC Iron Sucrose 300 mg Q24H IVP; Start 01/21/25 at 15:00; Stop 01/21/25 at 15:29; Status DC Iron Sucrose 300 mg/Sodium Chloride 250 ml @ 166.667 mls/hr Q24H IV; Start 01/21/25 at 16:00; Stop 01/21/25 at 17:22; Status DC Apixaban 5 mg BID PO Last administered on 01/22/25at 09:02; Start 01/21/25 at 21:00; Stop 01/23/25 at 10:57; Status DC Iron Sucrose 300 mg/Sodium Chloride 250 ml @ 166.667 mls/hr Q24H IV; Start 01/21/25 at 19:30; Stop 01/21/25 at 20:57; Status DC Iron Sucrose 300 mg/Sodium Chloride 250 ml @ 166.667 mls/hr Q24H IV Last administered on 01/23/25at 20:56; Start 01/21/25 at 21:00; Stop 01/23/25 at 22:29; Status DC Melatonin 10 mg HS PRN PO Last administered on 01/24/25at 00:33; Start 01/21/25 at 21:30; Stop 02/20/25 at 21:29 Gentamicin Sulfate 90 mg/ Sodium Chloride 50 ml @ 100 mls/hr Q8H IV; Start 01/22/25 at 03:30; Stop 01/22/25 at 03:30; Status DC Gentamicin Sulfate 90 mg/ Sodium Chloride 50 ml @ 100 mls/hr Q8H IV Last administered on 01/23/25at 12:54; Start 01/22/25 at 04:00; Stop 01/23/25 at 20:03; Status DC Apixaban 5 mg BID PO Last administered on 01/24/25at 10:04; Start 01/23/25 at 21:00; Stop 02/22/25 at 20:59 Tramadol HCl 50 mg ONCE ONCE PO Last administered on 01/23/25at 18:44; Start 01/23/25 at 19:00; Stop 01/23/25 at 19:01; Status DC Gentamicin Sulfate/Sodium Chloride 100 ml @ 200 mls/hr BID@0600,1800 IV Last administered on 01/24/25at 18:13; Start 01/24/25 at 06:00; Stop 02/07/25 at 05:59 Insulin Glargine 15 units DAILY SQ Last administered on 01/24/25at 10:18; Start 01/24/25 at 09:00; Stop 02/23/25 at 08:59 Acetaminophen/ Hydrocodone Bitart 1 tab ONCE ONCE PO Last administered on 01/24/25at 02:51; Start 01/24/25 at 02:30; Stop 01/24/25 at 02:33; Status DC MAITE RESTREPO MD Jan 24, 2025 19:40
[2025-01-24 20:38] VITALS: BP 132/70; PULSE 80; RESP 18; TEMP 99
--- NOTE | 2025-01-24 21:29 | PN ---
[facility] PROGRESS NOTE Date of Service: Jan 24, 2025 Time of Service: 21:28 SUBJECTIVE: [ ] The patient has been seen and examined at bedside, no acute events overnight, the patient is comfortable, cooperating well, alert oriented x3, he is on a CIWA protocol, not combative. BP 123/70, rest of vital signs unremarkable. Patient received transfusion of 1 unit of platelet, platelet count improved to 27, per network control supervisor, likely due to splenomegaly. Echocardiogram reviewed, hypodense echogenic mobile vegetation to right coronary cusp leaflet, per cardiology once platelet count is greater than 50 1000 we will proceed with a a DRAKE. The pa tient also with a elevated blood sugar, continue insulin sliding scale, add insulin glargine 20 units subcutaneously at bedtime. Continue the patient on broad-spectrum IV antibiotics, continue to trend WBC in a.m.. 01/07 patient is seen and examined at bedside, case discussed with the RN, patient upgraded last night to the ICU to start insulin drip as blood glucose per sistently greater than 400. Patient started on dexamethasone IV by network control supervisor do to ITP. Platelet count slightly better today at 41. Upon my initial encounter with the patient admitted that he drinks more than 18 beers per day. He was started on CIWA protocol, however has remained hemodynamically stable, comfortable in bed, no signs of withdrawal, cooperating fine. Not agitated, not combative. Toxicology screen positive for cocaine. Sodium level slowly improvi ng, today 132. Serology positive for influenza type A. The patient with significant proteinuria consistent with diabetic nephropathy, creatinine slowly trending down, no need for renal replacement therapy per plumber. Patient with blood culture positive for Staphylococcus aureus, with urine culture positive for Klebsiella pneumoniae. We will add vancomycin IV pharmacy to dose. We will request Infectious Disease consultation. Echocardiogram reviewed, hypodense echogenic mobile vegetation to right coronary cusp leaflet, per cardiology once platelet count is greater than 50 1000 we will proceed with a a DRAKE. CT abdomen with gallstones in the gallbladder. HIDA scan pending 01/08 patient seen at bedside, no acute events overnight. He continues on insulin drip with an anion gap of 14, we will continue until the gap is closed. P latelets 54, we will follow up with Cardiology on optimal timing for DRAKE. Continue with IV antibiotics, further care per critical Care. 2/10 patient seen at bedside, no acute events overnight. Anion gap is still open at 14, we will continue IV insulin. Platelets improved from 54 up to 71, CO2 decreased from 17 down to 15. Cardiology planning on DRAKE today, we will follow up postprocedure. Repeat blood cultures are positive for Gram-positive organisms which further supports underlying endocarditis. Continue with IV antibiotics, appreciate Infectious Disease recommendations. He has been afebrile, hemodynamically stable saturating well on room air. WBC increased from 12.8 up to 13.6, BUN decreased from 93 down to 90, creatinine decreased from 2.5 down to 2.3, remainder of his labs are relatively unremarkable. 01/10 Pt seen at bedside, no acute events overnight. Pt with anion gap of 14, CO2 still low at 16. Repeat lactic acid was ordered, elevated at 4.8, will bolus patient and continue with IV fluids. DRAKE was rescheduled to today, will follow up with results.WBC improved from 13.6 down to 11.7, Hgb decreased from 15.1 down to 12.4, platelets decreased from 71 down to 66, this substantial decrease in all cell lines suggests hemodilution, creatinine decreased from 2.2 down to 1.4, also likely falsely depressed. 01/11 Pt seen at bedside, no acute events overnight. Pending EGD to assess for esophageal varices and DRAKE today, will follow up post procedure. Yesterday repeat lactic acid was elevated at 4.8, the patient was bolused and it improved down to 1.3. He has been afebrile, hemodynamically stable, saturating well on room air. WBC increased from 11.7 up to 12.5, platelets improved from 66 up to 113, creatinine increased from 1.6 up to 1.8, CO2 improved from 17 up to 22 after patient was started on bicarb. Third set of blood cultures growing gram positive organisms 01/12 patient is seen and examined at bedside, case discussed with the RN, no acute events overnight, remains on broad-spectrum IV antibiotics, alert oriented x3, following commands. Patient underwent DRAKE 01/11, tolerated well, LVEF 60- 65%, no left ventricle thrombus noted. Right ventricle is severely dilated. Left atrial appendage clot present. No mass or thrombus in the left atrium. No mass or thrombus in the right atrium. Aortic valve is trileaflet, opens well, non coronary cusp leaflet has vegetation that measures 1.8 x 1.1 cm. No mitral valve vegetation, no tricuspid valve vegetation, no pulmonic valve vegetation. Finding discussed with the patient, all questions answered. 01/13 patient is seen and examined at bedside, case discussed with the RN, no acute events overnight, during my visit the patient comfortably in bed, hemodynamically stable, alert oriented x3, getting IV antibiotics, denies chest pain, no shortness a breath, no nausea, no vomiting. 01/14 patient is seen and examined at bedside, downgraded to the medical floor, case discussed with the RN, patient hemodynamically stable, alert oriented x3, on heparin drip, no chest pain, no shortness a breath, no nausea, no vomiting. 01/15 patient is seen and examined bedside, case discussed with the RN, no acute events overnight. Patient with blood culture positive for Staphylococcus aureus, with urine culture positive for Klebsiella pneumoniae. Patient underwent DRAKE 01/11, tolerated well, LVEF 60-65%, no left ventricle thrombus noted. Right ventricle is severely dilated. Left atrial appendage clot present. No mass or thrombus in the left atrium. No mass or thrombus in the right atrium. Aortic valve is trileaflet, opens well, non coronary cusp leaflet has vegetation that measures 1.8 x 1.1 cm. No mitral valve vegetation, no tricuspid valve vegetation, no pulmonic valve vegetation. Continue heparin drip. Patient evaluated by Cardiothoracic surgeon. Medical management recommended for now. Re-evaluate possibility of aortic valve replacement in the near future. 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 Continue to follow Hematology input and recommendation Discharge plan discussed with case management, patient is uninsured, probably will have to remain admitted until completion of IV antibiotic course. 01/16 Pt seen at bedside, no acute events overnight. Most recent blood cultures are no growth to date. CV surgery suggesting aortic valve replacement may be feasible if patient recent blood cultures no growth for another 5 days. If valve replacement will not be done, patient will need to complete full course of IV antibiotics before discharge as he is unfunded. Vitals and labs are relatively unremarkable 01/17 patient seen at bedside, no acute events overnight. Most recent blood cultures are growing Gram-positive organism, we will continue with IV antibiotics. Antibiotics have been adjusted by Infectious Disease, surgery will be held. 01/18 patient seen at bedside, no acute events overnight. Continue with broad- spectrum antibiotics, we will follow up with cardiovascular surgery regarding possible surgery once infection better controlled. Discussed case with network control supervisor who recommends heparin drip however patient we will need to be anticoagulated on discharge and given his own fundus status we will likely need to be started on warfarin. Vitals and labs relatively unremarkable. 01/19 patient seen at bedside, no acute events overnight. Continue with broad- spectrum antibiotics, we will follow up with cardiovascular surgery regarding possible surgery once infection better controlled. Patient started on eliquis. Hgb decreased from 9.6 down to 9.0, Vitals and labs otherwise relatively unremarkable. 01/20 patient seen at bedside, no acute events overnight. Continue with broad- spectrum antibiotics, we will follow up with cardiovascular surgery regarding possible surgery once infection better controlled. Patient started on eliquis. Hgb decreased from 9.0 down to 8.5, Vitals and labs otherwise relatively unremarkable. 01/21 Pt seen at bedside, no acute events overnight. Continue broad spectrum an tibiotics. Lab holiday today, continue with anticoagulation and broad spectrum antibiotics. 01/22 Pt seen at bedside, no acute events overnight. Continue broad spectrum antibiotics. Lab holiday today, continue with anticoagulation and broad spectrum antibiotics. 01/23/25 patient was seen and examined. Case discussed with the RN. No acute overnight events reported. Continue with the antibiotics 01/24/25 Pt seen at bedside, no acute events overnight. Continue broad spectrum antibiotics. check labs /continue with anticoagulation and broad spectrum antibiotics. REVIEW OF SYSTEMS 12 point review of systems negative unless noted in HPI PHYSICAL EXAM GENERAL APPEARANCE: The patient is awake, alert, and oriented, in no acute cardiopulmonary distress. NEUROLOGICAL: Cranial nerves II-XII grossly intact. Motor is 5/5 in bilateral upper and lower extremities proximal to distal. No sensory deficits. HEENT: Face is symmetric. Pupils are equal and reactive. Extraocular movements are intact. NECK: Supple. No JVD. No thyromegaly. No submental, submandibular, pre- /postauricular, occipital or supraclavicular lymphadenopathy. CHEST: Normal chest expansion. No Telemetry. LUNGS: Absence of any rales, rhonchi or any wheezing. CARDIOVASCULAR: Regular. S1 and S2 normal. No appreciable rubs, murmurs or gallops. ABDOMEN: Soft, nontender, and nondistended. There is no rebound, voluntary guarding, or rigidity. : Deferred. No Ortega. EXTREMITIES: Non-edematous and not cyanotic. No clubbing. Good capillary refill. SKIN: No skin breakdown. Vital Signs (last 8hr) Date Time Temp Pulse Resp B/P (MAP) Pulse Ox O2 Delivery O2 Flow Rate FiO2 01/24/25 20:38 99.0 80 18 132/70 98 Room Air 01/24/25 16:00 97.9 81 19 134/60 100 Room Air LABS: Laboratory: Test 01/24/25 19:17 01/24/25 04:23 01/23/25 11:09 01/23/25 04:56 Range/Units Whole Blood Glucose 210 H 70-110 MG/DL Bedside Glucose Comment Protocol Initiated White Blood Count 8.6 4.8-10.8 K/uL Red Blood Count 2.44 L 4.50-6.20 MIL/uL Hemoglobin 7.8 L 14.0-18.0 g/dL Hematocrit 23.5 L 42-54 % Mean Corpuscular Volume 96.3 79-99 fL Mean Corpuscular Hemoglobin 32.0 27.0-33.0 pg Mean Corpuscular Hemoglobin Concent 33.2 32.0-36.0 g/dL Red Cell Distribution Width 13.8 11.0-15.5 % Platelet Count 160 130-400 K/uL Mean Platelet Volume 10.4 7.5-10.5 fL Immature Granulocyte % (Auto) 0.8 0-1 % Neutrophils (%) (Auto) 79.6 H 40.0-77.0 % Lymphocytes (%) (Auto) 10.0 L 21.0-51.0 % Monocytes (%) (Auto) 9.3 3.0-13.0 % Eosinophils (%) (Auto) 0.2 0.0-8.0 % Basophils (%) (Auto) 0.1 0.0-5.0 % Neutrophils # (Auto) 6.8 1.8-7.7 K/uL Lymphocytes # (Auto) 0.9 L 1.0-4.8 K/uL Monocytes # (Auto) 0.8 0.1-1.0 K/uL Eosinophils # (Auto) 0.02 0.00-0.70 K/uL Basophils # (Auto) 0.01 0.00-0.20 K/uL Absolute Immature Granulocyte (auto 0.07 0-1 K/uL Nucleated Red Blood Cells 0.0 0.0-0.19 % Prothrombin Time 10.9 9.6-11.6 SEC Prothromb Time International Ratio 1.03 0.85-1.15 Activated Partial Thromboplast Time 36.5 H 26.3-35.5 SEC Sodium Level 136 136-145 mmol/L Potassium Level 4.2 3.5-5.1 mmol/L Chloride Level 106 101-111 mmol/L Carbon Dioxide Level 22 21-32 mmol/L Blood Urea Nitrogen 19 H 7-18 mg/dL Creatinine 1.1 0.5-1.3 mg/dL Glomerular Filtration Rate Calc 85 >90 mL/min Random Glucose 187 #H 70-105 mg/dL Total Calcium 7.7 L 8.5-10.1 mg/dL Magnesium Level 1.70 L 1.80-2.40 mg/dL Gentamicin Level Trough 2.2 #H 0.0-2.0 mcg/mL Segmented Neutrophils % 79 H 40-70 % Band Neutrophils % 1 0-2 % Lymphocytes % (Manual) 16 L 22-44 % Monocytes % (Manual) 4 2-9 % Differential Comment MANUAL DIFFERENTIAL White Cell Morphology Comment CONSISTENT W/DIFF Platelet Morphology Comment ADEQUATE Red Blood Cell Morphology See comments Phosphorus Level 3.9 2.5-4.9 mg/dL Total Bilirubin 0.6 0.2-1.0 mg/dL Aspartate Amino Transf (AST/SGOT) 11 10-37 U/L Alanine Aminotransferase (ALT/SGPT) 13 12-78 U/L Alkaline Phosphatase 71 50-136 U/L Total Protein 5.6 L 6.0-8.3 g/dL Albumin 1.9 L 3.5-5.0 g/dL Gentamicin Level Peak 4.2 # 4.0-8.0 mcg/mL Current Medications Medications (Trade) Dose Ordered Sig/Asya Route PRN Reason Start Time Stop Time Status Last Admin Dose Admin Acetaminophen (TYLenol 325MG TAB) 650 mg Q6H PRN PO MILD PAIN (1-3) 01/16/25 17:30 02/15/25 17:29 01/24/25 01:44 650 MG Acetaminophen (TYLenol 325MG TAB) 650 mg Q6H PRN PO TEMPERATURE GREATER THAN 101.5 01/05/25 02:30 3/8/25 02:29 01/24/25 17:10 650 MG Apixaban (EliquIS) 5 mg BID PO 01/21/25 21:00 01/23/25 10:57 DC 01/22/25 09:02 5 MG Apixaban (EliquIS) 5 mg BID PO 01/23/25 21:00 02/22/25 20:59 01/24/25 19:59 5 MG Apixaban (EliquIS) 5 mg BID PO 01/25/25 21:00 01/21/25 16:00 DC Apixaban (EliquIS) 10 mg BID PO 01/18/25 21:00 01/18/25 13:52 DC Apixaban (EliquIS) 10 mg BID PO 01/18/25 21:00 01/21/25 16:00 DC 01/21/25 08:45 10 MG Aspirin (Aspirin 81mg Chew Tab) 81 mg DAILY PO 01/05/25 09:00 01/05/25 09:53 DC Aspirin (Aspirin 81mg Ec Tab) 81 mg DAILY PO 01/16/25 09:00 02/15/25 08:59 01/24/25 10:04 81 MG Benzocaine (Cepacol Sore Throat Lozenge) 1 each Q4H PRN MM SORE THROAT 01/05/25 02:30 02/04/25 02:29 Calcium Gluconate 1 gm/Sodium Chloride 100 ml @ 0 mls/hr AD PRN IV Serum Calcium Correction 01/08/25 02:30 02/07/25 02:29 01/08/25 23:32 90 MLS/HR Cefazolin Sodium (Ancef) 2 gm Q12H IVPB 01/07/25 13:30 01/16/25 14:43 DC 01/16/25 01:12 2 GM Cefazolin Sodium (Ancef) 2 gm Q8H IVPB 01/16/25 21:30 01/17/25 13:22 DC 01/17/25 05:07 2 GM Chlordiazepoxide HCl (LIBrium 25 MG CAP) 25 mg Q8H PO 01/05/25 02:30 01/11/25 11:39 DC 01/10/25 22:23 25 MG Chlordiazepoxide HCl (LIBrium 25 MG CAP) 25 mg Q8H PRN PO WITHDRAWAL 01/11/25 12:00 01/12/25 02:29 DC Dexamethasone Sodium Phosphate 20 mg/Sodium Chloride 52 ml @ 100 mls/hr DAILY IV 01/09/25 09:00 02/08/25 08:59 01/24/25 10:03 100 MLS/HR Dexamethasone Sodium Phosphate 40 mg/Sodium Chloride 50 ml @ 100 mls/hr DAILY IV 01/06/25 14:00 01/08/25 12:16 DC 01/08/25 09:34 100 MLS/HR Dextrose (D50w) 50 ml AD PRN IV HYPOGLYCEMIA PROTOCOL 01/05/25 10:00 02/04/25 09:59 Doxycycline Hyclate 250 ml @ 125 mls/hr Q12H IV 01/05/25 10:00 01/06/25 21:05 DC 01/06/25 09:30 125 MLS/HR Doxycycline Hyclate 250 ml @ 125 mls/hr Q12H IV 01/06/25 21:30 01/16/25 14:23 DC 01/16/25 10:13 125 MLS/HR Fluconazole (DiFLUCan 100 mg TAB) 200 mg DAILY PO 01/12/25 09:00 02/11/25 08:59 01/24/25 10:05 200 MG Folic Acid (FOLic ACID 1 MG TABLET) 1 mg DAILY PO 01/07/25 10:30 02/06/25 10:29 01/24/25 10:04 1 MG Furosemide (LASix 20MG VIAL) 20 mg Q12H IV 01/07/25 16:00 01/11/25 00:56 DC 01/10/25 19:40 20 MG Gentamicin Sulfate 150 mg/ Sodium Chloride 100 ml @ 100 mls/hr Q12H IV 01/20/25 16:00 01/22/25 03:27 DC 01/21/25 16:00 100 MLS/HR Gentamicin Sulfate 90 mg/ Sodium Chloride 50 ml @ 100 mls/hr Q8H IV 01/22/25 03:30 01/22/25 03:30 DC Gentamicin Sulfate 90 mg/ Sodium Chloride 50 ml @ 100 mls/hr Q8H IV 01/22/25 04:00 01/23/25 20:03 DC 01/23/25 12:54 100 MLS/HR Gentamicin Sulfate/Sodium Chloride 100 ml @ 200 mls/hr BID@0600,1800 IV 01/24/25 06:00 02/07/25 05:59 01/24/25 18:13 200 MLS/HR Gentamicin Sulfate/Sodium Chloride 100 ml @ 200 mls/hr Q12H IV 01/16/25 15:30 01/18/25 03:39 DC 01/17/25 16:00 200 MLS/HR Gentamicin Sulfate/Sodium Chloride 100 ml @ 200 mls/hr Q12H IV 01/18/25 04:00 01/20/25 06:41 DC 01/20/25 05:38 200 MLS/HR Glucagon (Glucagon 1mg Kit) 1 mg AD PRN IM HYPOGLYCEMIA PROTOCOL 01/05/25 10:00 02/04/25 09:59 Heparin Sodium/ Dextrose 250 ml @ 0 mls/hr PROTOCOL IV 01/11/25 14:30 01/18/25 13:28 DC 01/17/25 16:09 13.99 MLS/HR Hydralazine HCl (APRESOLine 20MG INJ) 5 mg Q6H PRN IV For:SBP above 160;DBP above 90 01/05/25 14:30 02/04/25 14:29 01/10/25 22:24 5 MG Hydralazine HCl (APRESOLine 20MG INJ) 10 mg Q6H PRN IV For:SBP above 160;DBP above 90 01/05/25 02:30 01/05/25 09:53 DC Insulin Glargine (LANtus 100 UNITS/ML 10 ML VIAL) 15 units DAILY SQ 01/24/25 09:00 02/23/25 08:59 01/24/25 10:18 15 UNITS Insulin Glargine (LANtus 100 UNITS/ML 10 ML VIAL) 15 units Q12H SQ 01/07/25 21:30 01/09/25 23:18 DC 01/09/25 13:10 15 UNITS Insulin Glargine (LANtus 100 UNITS/ML 10 ML VIAL) 20 units DAILY SQ 01/14/25 09:00 01/23/25 21:37 DC 01/23/25 09:41 20 UNITS Insulin Glargine (LANtus 100 UNITS/ML 10 ML VIAL) 20 units HS SQ 01/06/25 21:00 01/06/25 21:05 DC Insulin Glargine (LANtus 100 UNITS/ML 10 ML VIAL) 20 units HS SQ 01/06/25 21:30 01/07/25 10:24 DC 01/06/25 21:33 20 UNITS Insulin Glargine (LANtus 100 UNITS/ML 10 ML VIAL) 20 units Q12H SQ 01/10/25 09:30 01/10/25 12:58 DC Insulin Glargine (LANtus 100 UNITS/ML 10 ML VIAL) 25 units Q12H SQ 01/10/25 21:30 01/11/25 00:50 DC 01/10/25 22:19 25 UNITS Insulin Glargine (LANtus 100 UNITS/ML 10 ML VIAL) 30 units DAILY SQ 01/12/25 09:00 01/14/25 07:03 DC 01/12/25 11:25 30 UNITS Insulin Glargine (LANtus 100 UNITS/ML 10 ML VIAL) 30 units Q12H SQ 01/11/25 09:30 01/11/25 20:13 DC 01/11/25 10:50 30 UNITS Insulin Human Regular (humuLIN R 100 UNIT/ML 3ML) 5 unit TIDAC SQ 01/14/25 07:30 02/13/25 07:29 01/24/25 17:19 5 UNIT Insulin Human Regular (humuLIN R 100 UNIT/ML 3ML) 8 unit TIDAC SQ 01/11/25 07:30 01/14/25 07:03 DC 01/13/25 19:47 8 UNIT Insulin Human Regular (humuLIN R 100 UNIT/ML 3ML) INSULIN SLIDING SCAL... ACHS SQ 01/18/25 21:00 02/17/25 20:59 01/24/25 19:59 3 UNIT Insulin Human Regular (humuLIN R 100 UNIT/ML 3ML) INSULIN SLIDING SCAL... ACHS SQ 01/05/25 07:30 01/05/25 09:57 DC 01/05/25 07:59 16 UNIT Insulin Human Regular (humuLIN R 100 UNIT/ML 3ML) INSULIN SLIDING SCAL... ACHS SQ 01/05/25 11:30 01/06/25 16:43 DC 01/06/25 11:50 8 UNIT Insulin Human Regular (humuLIN R 100 UNIT/ML 3ML) INSULIN SLIDING SCAL... ACHS SQ 01/06/25 17:00 01/07/25 13:32 DC 01/06/25 17:17 16 UNIT Insulin Human Regular (humuLIN R 100 UNIT/ML 3ML) INSULIN SLIDING SCAL... Q4H SQ 01/11/25 02:00 01/11/25 23:59 DC 01/11/25 20:49 6 UNIT Insulin Human Regular (humuLIN R 100 UNIT/ML 3ML) INSULIN SLIDING SCAL... Q4H SQ 01/11/25 23:59 01/18/25 19:33 DC 01/18/25 16:59 4 UNIT Insulin Human Regular (humuLIN R 100 UNIT/ML 3ML) INSULIN SLIDING SCAL... Q6H6 SQ 01/10/25 18:00 01/11/25 00:50 DC 01/11/25 00:45 10 UNIT Insulin Human Regular 100 unit/ Sodium Chloride 100 ml @ 0 mls/hr AD PRN IV HYPERGLYCEMIA PROTOCOL 01/06/25 19:30 01/10/25 06:00 DC 01/09/25 19:10 16 MLS/HR Iron Sucrose (VenoFER) 300 mg Q24H IVP 01/21/25 15:00 01/21/25 15:29 DC Iron Sucrose 300 mg/Sodium Chloride 250 ml @ 166.667 mls/hr Q24H IV 01/21/25 16:00 01/21/25 17:22 DC Iron Sucrose 300 mg/Sodium Chloride 250 ml @ 166.667 mls/hr Q24H IV 01/21/25 19:30 01/21/25 20:57 DC Iron Sucrose 300 mg/Sodium Chloride 250 ml @ 166.667 mls/hr Q24H IV 01/21/25 21:00 01/23/25 22:29 DC 01/23/25 20:56 166.667 MLS/HR Lactated Ringer's 1,000 ml @ 100 mls/hr Q10H IV 01/05/25 02:30 01/05/25 09:51 DC 01/05/25 02:30 100 MLS/HR Lactated Ringer's 1,000 ml @ 125 mls/hr Q8H IV 01/10/25 01:30 01/10/25 19:40 DC 01/10/25 13:07 125 MLS/HR Lactobacillus Rhamnosus ([facility]) 1 each DAILY PO 01/12/25 09:00 02/11/25 08:59 01/24/25 10:05 1 EACH Lorazepam (AtiVAN) 1 mg Q4H PRN IVP ALCOHOL WITHDRAWAL PROTOCOL 01/05/25 02:30 01/12/25 02:29 DC Magnesium Sulfate 50 ml @ 0 mls/hr PROTOCOL PRN IV h 01/05/25 02:30 02/04/25 02:29 01/24/25 05:54 15 MLS/HR Melatonin (Melatonin) 10 mg HS PRN PO INSOMNIA 01/21/25 21:30 02/20/25 21:29 01/24/25 00:33 10 MG Morphine Sulfate (morPHINE 2MG SYG) 2 mg Q4H PRN IVP SEVERE PAIN (7-10) 01/05/25 02:30 01/12/25 02:29 DC Multivitamins Therapeutic (Multivitamin Tablet) 1 tab DAILY PO 01/07/25 10:30 02/06/25 10:29 01/24/25 10:04 1 TAB Nafcillin Sodium (Nafcillin 2gm+ NS 100ml) 2 gm Q6H6 IV 01/17/25 18:00 01/27/25 17:59 01/24/25 19:57 2 GM Nicotine (Nicoderm) 21 mg DAILY TD 01/05/25 09:00 02/04/25 08:59 01/24/25 10:05 21 MG Nitroglycerin (Nitrostat) 0.4 mg AD PRN SL CHEST PAIN 01/05/25 02:30 02/04/25 02:29 Nystatin (NYSTatin 321466 UNIT/ML 5ML UDCUP) 100,000 UNITS 1 ML TO E... QID PO 01/18/25 09:00 02/17/25 08:59 01/24/25 19:58 2 ML Ondansetron HCl (zoFRAN 4MG INJ) 4 mg Q6H PRN IV NAUSEA/VOMITING 01/05/25 02:30 02/04/25 02:29 Pantoprazole Sodium (PROTonix 40MG TAB) 40 mg DAILY PO 01/05/25 09:00 02/04/25 08:59 01/24/25 10:04 40 MG Pharmacy Profile Note (Pharmacy Communication) 1 each ONCE MISC 01/16/25 14:30 01/16/25 15:12 DC Pharmacy Profile Note (Pharmacy Communication) 1 each PROTOCOL PRN MISC ETOH Withdrawal Score changes 01/05/25 02:30 01/12/25 02:29 DC Piperacillin Sod/ Tazobactam Sod (Zosyn 3.375gm+NS 50ml) 3.375 gm Q12H IV 01/05/25 02:30 01/07/25 13:24 DC 01/07/25 02:45 3.375 GM Potassium Phosphate 250 ml @ 42 mls/hr PROTOCOL PRN IV PROTOCOL 01/05/25 10:00 02/04/25 09:59 Potassium Chloride 100 ml @ 100 mls/hr AD PRN IV POTASSIUM PROTOCOL 01/05/25 02:30 01/07/25 10:12 DC Potassium Chloride 100 ml @ 100 mls/hr AD PRN IV POTASSIUM PROTOCOL 01/07/25 10:30 02/06/25 10:29 01/09/25 06:26 100 MLS/HR Potassium Chloride (K-Dur 10meq Sr Tab) 10 meq AD PRN PO POTASSIUM PROTOCOL 01/06/25 09:30 02/04/25 02:29 01/08/25 23:35 10 MEQ Potassium Chloride (K-Dur/Klor-Con 20meq) 10 meq AD PRN PO POTASSIUM PROTOCOL 01/05/25 02:30 01/06/25 09:12 DC 01/05/25 22:15 10 MEQ Potassium Chloride (K-Dur/Klor-Con 20meq) 10 meq AD PRN PO POTASSIUM PROTOCOL 01/07/25 10:30 01/07/25 10:12 DC Potassium Chloride (KCl 10% Elixir 20meq/15ml) 10 meq AD PRN PO POTASSIUM PROTOCOL 01/05/25 02:30 01/07/25 10:12 DC 01/06/25 17:16 10 MEQ Potassium Chloride (KCl 10% Elixir 20meq/15ml) 10 meq AD PRN PO POTASSIUM PROTOCOL 01/07/25 10:30 02/06/25 10:29 01/23/25 15:27 10 MEQ Sodium Bicarbonate (Sodium Bicarbonate) 1,300 mg BID PO 01/11/25 09:00 02/10/25 08:59 01/24/25 19:58 1,300 MG Sodium Chloride 1,000 ml @ 50 mls/hr Q20H IV 01/05/25 10:00 01/10/25 01:33 DC 01/09/25 05:56 50 MLS/HR Sodium Chloride 1,000 ml @ 75 mls/hr [id number] IV 01/11/25 01:00 01/11/25 13:45 DC 01/11/25 01:00 75 MLS/HR Triamcinolone Acetonide (Kenalog/ Aristocort) 1 APPLY TP BID BID TP 01/07/25 11:00 02/06/25 10:59 01/24/25 19:59 1 APPL Vancomycin HCl (Vancomycin Protocol) 1 each AD IV 01/07/25 12:30 01/07/25 12:40 DC DIAGNOSTICS / RADIOLOGY: [ ] ASSESSMENT: Severe sepsis, resolved POA Gram-positive bacteremia secondary to Staphylococcus aureus, POA Hypodense echogenic mobile vegetation to right coronary cusp leaflet on echocardiogram 01/05/2025 Left atrial appendage clot present. on DRAKE 01/11 non coronary cusp leaflet has vegetation that measures 1.8 x 1.1 cm. on DRAKE 01/11 Urinary tract infection, secondary to Klebsiella pneumoniae, POA Strep pharyngitis, POA ITP, POA Leukocytosis, POA Hyperlactatemia, POA Acute kidney injury, POA Hypokalemia, POA Hyponatremia, POA Hypomagnesemia, POA POA New onset Uncontrolled Diabetes mellitius type2, POA Elevated troponin, POA Cocaine abuse, POA Alcohol abuse, POA Tobacco dependence, POA Significant proteinuria, POA Diabetic nephropathy, POA Gallstones, POA Fidelina esophagitis on EGD 01/11 PLAN: -patient remains admitted to the medical floor. -continue the patient on broad-spectrum IV antibiotics -results of DRAKE reviewed, Left atrial appendage clot present. on DRAKE 01/11, aortic valve is trileaflet, opens well. Non coronary cusp leaflet has vegetation that measures 1.8 x 1.1 cm. on DRAKE 01/11 -continue heparin drip. Patient already evaluated by Cardiothoracic surgeon, continue medical management, we will re-evaluate possibility of aortic valve replacement in the near future. 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 Continue to follow Hematology input and recommendation -renal function slightly improved today, patient evaluated by plumber, the patient with significant proteinuria on UA consistent with diabetic nephropathy. No acute need for any form of renal replacement therapy. -blood culture positive for Staphylococcus aureus. Urine culture positive for Klebsiella pneumoniae. Continue broad-spectrum IV antibiotics, continue to follow ID input recommendation. -case discussed with case management, patient to complete course of IV antibiotics likely during this hospitalization as the patient is uninsured. Disposition: Pending improvement in clinical condition. All questions answered time spent: > 35 min PUJA DOMINGUEZ MD Jan 24, 2025 21:29
[2025-01-25] VITALS (7 sets, daily range): BP systolic 127–154; BP diastolic 58–83; PULSE 82–90; RESP 17–19; TEMP 97.7–98.4; O2SAT 96–97
--- NOTE | 2025-01-25 01:12 | NUR ---
nurse note patient alert and oriented times 4. plan of care discussed with him and he verbalized understanding. patient is ambulatory with a walker to the restroom and around the room. Heating packs applied to right upper arm and ice packs to his left leg. He prefers to sleep on the recliner. He calls when he wants pain medication for his right arm. Call light within reach, bed alarm on, 2 side rails up. will continue to monitor patient.
[2025-01-25 05:17] LABS: BASOPHILS # (AUTO) 0.01 K/uL (0.00-0.20); BASOPHILS % (AUTO) 0.1 % (0.0-5.0); EOSINOPHILS # (AUTO) 0.13 K/uL (0.00-0.70); EOSINOPHILS % (AUTO) 1.6 % (0.0-8.0); HEMATOCRIT 23.7 % (42-54); IMMATURE GRANULOCYTE ABSOLUTE 0.06 K/uL (0-1); LYMPHOCYTES # (AUTO) 1.4 K/uL (1.0-4.8); LYMPHOCYTES % (AUTO) 17.7 % (21.0-51.0); MEAN CORPUSCULAR HEMOGLOBIN 32.1 pg (27.0-33.0); MEAN CORPUSCULAR HGB CONC 33.3 g/dL (32.0-36.0); MEAN CORPUSCULAR VOLUME 96.3 fL (79-99); MONOCYTES # (AUTO) 0.5 K/uL (0.1-1.0); MONOCYTES % (AUTO) 6.4 % (3.0-13.0); NEUTROPHILS # (AUTO) 5.9 K/uL (1.8-7.7); NEUTROPHILS % (AUTO) 73.5 % (40.0-77.0); PLATELET COUNT (AUTO) 145 K/uL (130-400); RED BLOOD CELL COUNT(AUTO) 2.46 MIL/uL (4.50-6.20); RED CELL DISTRIBUTION WIDTH 14.1 % (11.0-15.5)
[2025-01-25 05:31] LABS: CREATININE 1.1 mg/dL (0.5-1.3); GENTAMICIN,TROUGH 0.9 mcg/mL (0.0-2.0); MAGNESIUM 1.8 mg/dL (1.80-2.40); POTASSIUM 3.9 mmol/L (3.5-5.1)
[2025-01-25] MEDS ORDERED: PHARMACY COMMUNICATION MISC SCH ×2 (07:30→16:30)
--- NOTE | 2025-01-25 09:46 | PN ---
SUBJECTIVE: A 44-year-old male who has had a prolonged hospital course. The patient initially admitted and found to have endocarditis. The patient remains on the antibiotics. He has had acute renal failure in the hospital. Creatinine has been stabilizing and the patient is being seen for all of the above. REVIEW OF SYSTEMS: GENERAL: He is feeling weak and tired. HEENT: No change in vision. No change in hearing. CARDIOVASCULAR: There is no current chest pain or palpitations. PULMONARY: No shortness of breath. GASTROINTESTINAL: He is tolerating a diet. MUSCULOSKELETAL: Complains of weakness. PHYSICAL EXAMINATION: VITAL SIGNS: Blood pressure 143/73, pulse in the 80s. GENERAL: Chronically ill male, lying in bed on medical floor. HEENT: Head is atraumatic. Pupils equal, roving to light. Oropharynx is without exudate. Nares clear. NECK: There is no JVP. There is no thyromegaly, no mass. CARDIOVASCULAR: Regular. There is no S3, S4 gallop. LUNGS: Coarse with equal thoracic movement. ABDOMEN: Soft, nondistended, nontender. EXTREMITIES: There is no clubbing, no cyanosis. NEUROLOGIC: He is awake. He is alert. LABORATORY DATA: Hemoglobin 7.9, hematocrit 23. BUN 20, creatinine 1.1. IMPRESSION: * Acute renal failure. * Diabetes mellitus. * Hypertension. * Endocarditis. PLAN: The patient's creatinine has stabilized while in the hospital. The patient continues with the antibiotics. The patient is being seen by case management for final disposition for the antibiotics and we will continue to follow closely. TID: [id number] RECEIPT: [id number]
--- NOTE | 2025-01-25 09:53 | PN ---
[facility] CARDIOLOGY PROGRESS NOTE Date Patient Seen: Jan 25, 2025 Time of Visit: 09:46 Interval History: This 44-year-old Latin-E[place]ian male with a history of morbid obesity, liver cirrhosis, polysubstance abuse (ETOH and cocaine), suspected sleep apnea, h ypertension, hyperlipidemia, and coronary artery disease status post remote stenting of the proximal LAD 12/19/2015 has had a prolonged hospitalization thus far was admitted with sepsis, MSSA, and was found to have a 1.8 x 1.2 cm vegetation involving the aortic valve by DRAKE 01/11/2025 as well as a left atrial appendage thrombus. He has been maintained on antibiotics and Eliquis an ticoagulation. The patient was noted to have a small left calf hematoma which has been stable and Eliquis was resumed 01/23/2025. A limited follow up 2D echocardiogram 01/23/2025 demonstrated LVEF is 60-65% with normal LV segmental wall motion, Aortic valve non coronary cusp leaflet vegetation currently measures 0.8cm x 1.15cm with a traced area of 0.9cm (relatively unchanged) and no pericardial effusion. A left lower extremity venous doppler exam on 01/23/2025 demonstrated to evidence of DVT. A right upper extremity venous doppler exam earlier today demonstrated a noncompressible thrombus is seen in the right cephalic vein consistent with superficial thrombophlebitis. The right PICC line was discontinued. He continues on IV antibiotic therapy and will require 6 weeks total of antibiotic therapy. He complains of bilateral shoulder discomfort worse with movement. He underwent insertion of a PICC line to the left upper extremity. A chest x-ray done 01/24/2025 demonstrated cardiomegaly and pulmonary vascular congestion changes. Physical Examination: GENERAL: No acute distress. HEAD: Normal with no signs of head trauma. EYES: PERRLA, EOMI, conjunctiva and sclera normal. NECK: Supple without JVD. There is no tenderness, lymphadenopathy, or masses. No thyromegaly. Normal carotid upstrokes without bruits. LUNGS: Diminished at the bases only but otherwise clear HEART: Regular rate. Normal S1 and S2. No obvious murmurs, gallops, or rubs noted. No murmur audible. VASC: Peripheral pulses +2 bilaterally. EXT: Ecchymosis to the right upper arm noted. There is a left calf hematoma and increased girth of the left calf compared to the right calf. Plus two pedal edema. There are scattered petechial and purpuric patches. NEURO: Awake, alert, and oriented. No focal neurological deficits noted. Laboratory: Hematology Labs: Test 01/25/25 05:00 Range/Units White Blood Count 8.0 4.8-10.8 K/uL Red Blood Count 2.46 L 4.50-6.20 MIL/uL Hemoglobin 7.9 L 14.0-18.0 g/dL Hematocrit 23.7 L 42-54 % Mean Corpuscular Volume 96.3 79-99 fL Mean Corpuscular Hemoglobin 32.1 27.0-33.0 pg Mean Corpuscular Hemoglobin Concent 33.3 32.0-36.0 g/dL Red Cell Distribution Width 14.1 11.0-15.5 % Platelet Count 145 130-400 K/uL Mean Platelet Volume 10.7 H 7.5-10.5 fL Immature Granulocyte % (Auto) 0.7 0-1 % Neutrophils (%) (Auto) 73.5 40.0-77.0 % Lymphocytes (%) (Auto) 17.7 L 21.0-51.0 % Monocytes (%) (Auto) 6.4 3.0-13.0 % Eosinophils (%) (Auto) 1.6 0.0-8.0 % Basophils (%) (Auto) 0.1 0.0-5.0 % Neutrophils # (Auto) 5.9 1.8-7.7 K/uL Lymphocytes # (Auto) 1.4 1.0-4.8 K/uL Monocytes # (Auto) 0.5 0.1-1.0 K/uL Eosinophils # (Auto) 0.13 0.00-0.70 K/uL Basophils # (Auto) 0.01 0.00-0.20 K/uL Absolute Immature Granulocyte (auto 0.06 0-1 K/uL Nucleated Red Blood Cells 0.0 0.0-0.19 % Chemistry Labs: Test 01/25/25 05:37 01/25/25 05:00 Range/Units Whole Blood Glucose 176 H 70-110 MG/DL Bedside Glucose Comment Protocol Initiated Sodium Level 136 136-145 mmol/L Potassium Level 3.9 3.5-5.1 mmol/L Chloride Level 104 101-111 mmol/L Carbon Dioxide Level 26 21-32 mmol/L Blood Urea Nitrogen 20 H 7-18 mg/dL Creatinine 1.1 0.5-1.3 mg/dL Glomerular Filtration Rate Calc 85 >90 mL/min Random Glucose 190 H 70-105 mg/dL Total Calcium 7.7 L 8.5-10.1 mg/dL Magnesium Level 1.80 1.80-2.40 mg/dL Coagulation Labs: Test 01/24/25 04:23 Range/Units Prothrombin Time 10.9 9.6-11.6 SEC Prothromb Time International Ratio 1.03 0.85-1.15 Activated Partial Thromboplast Time 36.5 H 26.3-35.5 SEC Assessment: -Severe sepsis -Bacteremia (MSSA) -UTI (Klebsiella) -Strep A positive -Acute cocaine intoxication -Acute cholecystitis -Acute renal failure in the setting of severe sepsis, resolving -Fidelina esophagitis identified on EGD done 01/11/2025 -Bacterial endocarditis affecting the aortic valve (1.81x1.17 cm mass attached to the noncoronary cusp leaflet) identified on DRAKE done 01/11/2025 -Left atrial appendage thrombus identified on DRAKE done 01/11/2025 -Normal LV systolic function (LVEF: 60-65% by echo done 01/11/2025) -Elevated troponin (type II ND) -ITP -Liver cirrhosis -Esophagitis by EGD 01/11/2025 -CAD s/p PCI with IA Integrilin, aspiration thrombectomy, PTCA, and KISHORE placement (Promus 4.0x16 mm) in the proximal LAD done on 12/19/2015 -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 of the RCA cursing between the aorta and PA trunk) identified on C done 12/19/2015 -HTN -HLP -Polysubstance abuse (ETOH and cocaine) -Suspected MARCOS/OHS -Morbid obesity -Noncompliance Plan: Bacterial endocarditis affecting the aortic valve (1.81x1.17 cm mass attached to the noncoronary cusp leaflet) identified on DRAKE done 01/11/2025 -Limited follow up 2D echocardiogram 01/23/2025 demonstrated vegetation measuring 0.8cm x 1.15cm with a traced area of 0.9cm (relatively unchanged) -Positive blood cultures collected 01/05/2025, 01/07/2025, 01/09/2025, 01/11/2025 -Blood cultures collected and 01/19/2025-negative x5 days -The patient will continue on IV antibiotic therapy which has been tailored by ID, with plans to continue inpatient for IV antibiotic therapy for 6 weeks Left atrial appendage thrombus identified on DRAKE done 01/11/2025 -Continue Eliquis 5 mg b.i.d. which has a lower bleeding risk than warfarin anti coagulation Elevated troponin -HS troponin I peak: 195 -We will restart the patient on aspirin 81 mg daily. He is not a candidate for statin therapy due to his liver dysfunction. Acute diastolic heart failure on admission: -the patient's chest x-ray 01/24/2025 demonstrated cardiomegaly and pulmonary vascular congestion likely related to volume infusion from antibiotic therapy -obtain a BNP and provide a short course of Lasix 20 mg IV q.12 hours for 48 hours and trend renal function -obtain a follow-up chest x-ray on 01/27/2025 Left thigh swelling, without evidence of DVT -A left lower extremity venous doppler exam on 01/23/2025 demonstrated to evidence of DVT. -Superficial (right cephalic vein) thrombus: -continue current therapy unchanged Acute renal failure, resolving: -continue to monitor renal function PHYSICIAN ATTESTATION OF PHYSICIAN RESEARCH SPEC DOCUMENTATION: I attest that I was physically present for the conti portions of the service and evaluated the patient with the Physician District Fire Chief, and I reviewed and discussed the case with the Physician District Fire Chief and made modifications to the Physician District Fire Chief's findings and plans of care as documented above TAMERA REYNA Jan 25, 2025 09:53 KARMA LUNDBERG MD Jan 27, 2025 09:39
[2025-01-25] MEDS: furoSEMIDE 20MG VIAL IV SCH (10:33)
--- NOTE | 2025-01-25 11:54 | NUR ---
PATIENT STATED THAT PAIN WAS NOT BEING RELIVED WITH TYLENOL 650MG. SPOKE WITH DR. LUO AND RECEIVED AN ORDER TO START 5% LIDOCAINE PATCH DAILY Q24 HOURS.
[2025-01-25] MEDS: LIDOCAINE 5% TOPICAL PATCH TP SCH (12:04)
--- NOTE | 2025-01-25 16:14 | NUR ---
CM NOTE: POC CM MET WITH PT INFORMED OF APPROVAL FOR JENNIFER ZYVOX IV 6OOMG IV X 6 WEEKS VIA PICC. PT GIVEN INSTRUCTIONS. PT AWARE TO GO TO [facility] THU-THURSDAY FOR AM DOSE @ 0830, THEN EMERGENCY DEPT FOR EVENING DOSE @ 8:30PM, PT ALSO INSTRUCTED TO GO TO ED FOR AM AND EVENING DOSE ON THU AND SUNDAYS. PT MADE AWARE ON THURSDAY AND THURSDAY PT WILL GET CBC LAB DRAWN IN ED IN THE EVENING PER DR CARLSON'S RECOMMENDATIONS FOR MONITORING. VERIFIED WITH PT REGARDING TRANSPORTATION DAILY. PT VERBALIZED HE WILL DRIVE SELF DAILY AND DAUGHTER WILL ASSIST ALSO W/TRANSPORTATION IN BETWEEN IF NEEDED. PT TO RECEIVE 1ST IV ABX DOSE TONIGHT TO MAKE SURE PT DOES NOT HAVE ALLERGY REACTION. PT VERBALIZED UNDERSTANDING. PRIMARY NURSE KENNEDY AWARE. PT SAFE TO DC HOME ONCE DOSE GIVEN AND MD CLEARED TO DC. CM TO CONTINUE TO FOLLOW UP.
--- NOTE | 2025-01-25 17:30 | PN ---
INFECTIOUS DISEASE PROGRESS NOTE Date of Service: Jan 25, 2025 SUBJECTIVE: This is a 44-year-old male patient who was admitted for chief complaint of weakness and status post fall at home. A Urine culture collected on admission came back positive for Klebsiella pneumoniae and the blood cultures results came back positive for Methicillin sensitive Staphylococcus aureus 2 of 2 sets and the reason for this consult. A 2D echo done on admission showed Aortic valve endocarditis and DRAKE done on 01/11/2025 with findings of aortic valve vegetation and Left atrial appendage clot. Patient was seen and examined at bedside in room 412. Patient is awake, alert and oriented x 3. PICC line has been placed and Case management arranging for outpatient IV antibiotics with Zyvox IV every 12 hours for six weeks. Patient's platelets level we will need to be monitored. Patient remains afebrile, temperature 98.4. No other issues reported by nursing. PHYSICAL EXAM EYES: Anicteric. Pupils equal and reactive. HENT: No oral thrush seen, moist Oral mucosa. NECK: Supple, no JVD or thyromegaly. LUNGS: Good air entry. No rales, no rhonchi. CARDIOVASCULAR: S1, S2 regular. No murmur heard. ABDOMEN: Obese but Soft. CENTRAL NERVOUS SYSTEM: Awake, alert, oriented x 3. SKIN: No rashes, no swelling. LYMPHATICS: No peripheral lymphadenopathy MUSCULOSKELETAL: No joint swelling, erythema or tenderness. Weakness. EXTREMITIES: No cyanosis or clubbing. Edematous, resolving. BACK: No deformity, no pressure ulcer. GENITOURINARY: No dysuria or hematuria. Vital Sign (Last 12 Hours) 01/25/25 01/25/25 01/25/25 01/25/25 08:00 08:00 12:00 13:52 Temp 98.4 97.7 Pulse 82 83 Resp 18 18 B/P (MAP) 143/73 139/76 Pulse Ox 96 95 96 96 O2 Delivery Room Air* Room Air Room Air Room Air* O2 Flow Rate 0 0 FiO2 21 21 01/25/25 16:00 Temp 98.2 Pulse 86 Resp 18 B/P (MAP) 150/83 Pulse Ox 99 O2 Delivery Room Air Intake & Output (last 24hrs) 01/24/25 01/24/25 01/25/25 15:00 23:00 07:00 Intake Total 500.0 ml Output Total 300 ml 850 ml Balance -300 ml -350.0 ml LABS: Laboratory: Test 01/25/25 15:28 01/25/25 06:20 01/25/25 05:37 01/25/25 05:00 Range/Units Whole Blood Glucose 248 #H 70-110 MG/DL Gentamicin Level Peak 5.2 # 4.0-8.0 mcg/mL Bedside Glucose Comment Protocol Initiated White Blood Count 8.0 4.8-10.8 K/uL Red Blood Count 2.46 L 4.50-6.20 MIL/uL Hemoglobin 7.9 L 14.0-18.0 g/dL Hematocrit 23.7 L 42-54 % Mean Corpuscular Volume 96.3 79-99 fL Mean Corpuscular Hemoglobin 32.1 27.0-33.0 pg Mean Corpuscular Hemoglobin Concent 33.3 32.0-36.0 g/dL Red Cell Distribution Width 14.1 11.0-15.5 % Platelet Count 145 130-400 K/uL Mean Platelet Volume 10.7 H 7.5-10.5 fL Immature Granulocyte % (Auto) 0.7 0-1 % Neutrophils (%) (Auto) 73.5 40.0-77.0 % Lymphocytes (%) (Auto) 17.7 L 21.0-51.0 % Monocytes (%) (Auto) 6.4 3.0-13.0 % Eosinophils (%) (Auto) 1.6 0.0-8.0 % Basophils (%) (Auto) 0.1 0.0-5.0 % Neutrophils # (Auto) 5.9 1.8-7.7 K/uL Lymphocytes # (Auto) 1.4 1.0-4.8 K/uL Monocytes # (Auto) 0.5 0.1-1.0 K/uL Eosinophils # (Auto) 0.13 0.00-0.70 K/uL Basophils # (Auto) 0.01 0.00-0.20 K/uL Absolute Immature Granulocyte (auto 0.06 0-1 K/uL Nucleated Red Blood Cells 0.0 0.0-0.19 % Sodium Level 136 136-145 mmol/L Potassium Level 3.9 3.5-5.1 mmol/L Chloride Level 104 101-111 mmol/L Carbon Dioxide Level 26 21-32 mmol/L Blood Urea Nitrogen 20 H 7-18 mg/dL Creatinine 1.1 0.5-1.3 mg/dL Glomerular Filtration Rate Calc 85 >90 mL/min Random Glucose 190 H 70-105 mg/dL Total Calcium 7.7 L 8.5-10.1 mg/dL Magnesium Level 1.80 1.80-2.40 mg/dL B-Type Natriuretic Peptide 611 H 0-100 pg/mL Gentamicin Level Trough 0.9 # 0.0-2.0 mcg/mL Test 01/24/25 04:23 Range/Units Prothrombin Time 10.9 9.6-11.6 SEC Prothromb Time International Ratio 1.03 0.85-1.15 Activated Partial Thromboplast Time 36.5 H 26.3-35.5 SEC ASSESSMENT: Methicillin-susceptible Staphylococcus aureus bacteremia status post DRAKE on 01/11/2025 with findings of aortic valve vegetation and Left atrial appendage clot. Aortic valve endocarditis on 2D echo. Urinary tract infection with Klebsiella pneumoniae. Chronic scalp folliculitis. Leukocytosis. Thrombocytopenia requiring platelet transfusion, resolving. Acute on chronic renal failure, resolving. Substance abuse, Cocaine and ETOH. Streptococcus viral infection. Uncontrolled diabetes mellitus. Debility. PLAN: Continue Nafcillin. Continue Gentamicin per pharmacy renal dosing. Continue fluconazole p.o.. Continue on Eliquis. Avoid nephrotoxic medications. Continue GI prophylaxis. [employer] following patient. Continue monitoring glucose levels. Case management arranging for outpatient IV antibiotics with Zyvox IV every 12 hours for six weeks. This case was reviewed and discussed with my supervising physician and the above assessment and plan was formulated and agreed upon. ATTESTATION BY PHYSICIAN I have seen and examined the patient. I reviewed the documentation, medical decision making, and treatment plan as noted by the mid-level provider above. I agree with the findings and plan of care. JANUARY CARLSON MD, [facility] [employer] Jan 25, 2025 17:30
--- NOTE | 2025-01-25 18:11 | PN ---
GASTROENTEROLOGY PROGRESS NOTE Date of Visit: Jan 25, 2025 Time of Visit: 18:11 Events / Notes: No acute events overnight. Patient had EGD revealing LA Grade B esophagitis. Denies fever, chills, abdominal pain, N/V, hematemesis, bloating, constipation, diarrhea, melena or hematochezia. No overt GI bleeding. Review of Systems: CONSTITUTIONAL: No malaise or change in sensation of wellbeing. ENMT: No rhinorrhea, otorrhea, sinus pain, ear ache. CARDIOVASCULAR: No angina, palpitations, orthopnea or paroxysmal dyspnea. RESPIRATORY: No SOB. GASTROINTESTINAL: No abdominal pain, nausea, vomiting, diarrhea, hematemesis, melena or change in the patient's habitual bowel movements consistency/number. GENITOURINARY: No dysuria, hematuria or change in bladder continence. MUSCULOSKELETAL: No new muscle pain or decrease in muscular strength. No new joint swelling, redness or tenderness. SKIN: No new rash. Physical Exam: GEN: Awake, alert, oriented in person, time and place, and in no acute distress. HEENT: No sinus tenderness. Tympanic membranes were not examined. No rhinorrhea. Oral pharyngeal mucosa is pink, moist and within normal limits. Neck is supple with no cervical lymphadenopathy, thyromegaly or JVD. CHEST: Inspection, palpation and percussion of the chest were unremarkable. Lung auscultation revealed normal breath sounds bilaterally. CARDIAC: PMI is within normal limits. Heart sounds are regular. Normal S1, S2. No gallop or murmur. ABD: Soft, non-tender and not distended. No peritoneal signs on palpation. No organomegaly. Normal bowel sounds. EXT: No cyanosis or clubbing. No edema. SKIN: Intact. No rashes. JOINTS: No evidence of synovitis or acute arthritis. NEURO: Alert and oriented to name, place and person. Cranial nerve examination is unremarkable. No focal motor deficits. Normal speech. Gait is normal. Strength is normal. Vital Signs (last 8hr) Date Time Temp Pulse Resp B/P (MAP) Pulse Ox O2 Delivery O2 Flow Rate FiO2 01/25/25 16:00 98.2 86 18 150/83 99 Room Air 01/25/25 13:52 96 Room Air* 0 21 01/25/25 12:00 97.7 83 18 139/76 96 Room Air Laboratory: [ ] Laboratory: Test 2/26/25 15:28 01/25/25 06:20 01/25/25 05:37 01/25/25 05:00 Range/Units Whole Blood Glucose 248 #H 70-110 MG/DL Gentamicin Level Peak 5.2 # 4.0-8.0 mcg/mL Bedside Glucose Comment Protocol Initiated White Blood Count 8.0 4.8-10.8 K/uL Red Blood Count 2.46 L 4.50-6.20 MIL/uL Hemoglobin 7.9 L 14.0-18.0 g/dL Hematocrit 23.7 L 42-54 % Mean Corpuscular Volume 96.3 79-99 fL Mean Corpuscular Hemoglobin 32.1 27.0-33.0 pg Mean Corpuscular Hemoglobin Concent 33.3 32.0-36.0 g/dL Red Cell Distribution Width 14.1 11.0-15.5 % Platelet Count 145 130-400 K/uL Mean Platelet Volume 10.7 H 7.5-10.5 fL Immature Granulocyte % (Auto) 0.7 0-1 % Neutrophils (%) (Auto) 73.5 40.0-77.0 % Lymphocytes (%) (Auto) 17.7 L 21.0-51.0 % Monocytes (%) (Auto) 6.4 3.0-13.0 % Eosinophils (%) (Auto) 1.6 0.0-8.0 % Basophils (%) (Auto) 0.1 0.0-5.0 % Neutrophils # (Auto) 5.9 1.8-7.7 K/uL Lymphocytes # (Auto) 1.4 1.0-4.8 K/uL Monocytes # (Auto) 0.5 0.1-1.0 K/uL Eosinophils # (Auto) 0.13 0.00-0.70 K/uL Basophils # (Auto) 0.01 0.00-0.20 K/uL Absolute Immature Granulocyte (auto 0.06 0-1 K/uL Nucleated Red Blood Cells 0.0 0.0-0.19 % Sodium Level 136 136-145 mmol/L Potassium Level 3.9 3.5-5.1 mmol/L Chloride Level 104 101-111 mmol/L Carbon Dioxide Level 26 21-32 mmol/L Blood Urea Nitrogen 20 H 7-18 mg/dL Creatinine 1.1 0.5-1.3 mg/dL Glomerular Filtration Rate Calc 85 >90 mL/min Random Glucose 190 H 70-105 mg/dL Total Calcium 7.7 L 8.5-10.1 mg/dL Magnesium Level 1.80 1.80-2.40 mg/dL B-Type Natriuretic Peptide 611 H 0-100 pg/mL Gentamicin Level Trough 0.9 # 0.0-2.0 mcg/mL Test 01/24/25 04:23 Range/Units Prothrombin Time 10.9 9.6-11.6 SEC Prothromb Time International Ratio 1.03 0.85-1.15 Activated Partial Thromboplast Time 36.5 H 26.3-35.5 SEC Current Medications Medications (Trade) Dose Ordered Sig/Asya Route PRN Reason Start Time Stop Time Status Last Admin Dose Admin Acetaminophen (TYLenol 325MG TAB) 650 mg Q6H PRN PO MILD PAIN (1-3) 01/16/25 17:30 02/15/25 17:29 01/24/25 01:44 650 MG Acetaminophen (TYLenol 325MG TAB) 650 mg Q6H PRN PO TEMPERATURE GREATER THAN 101.5 01/05/25 02:30 02/04/25 02:29 01/25/25 17:03 650 MG Apixaban (EliquIS) 5 mg BID PO 01/21/25 21:00 01/23/25 10:57 DC 01/22/25 09:02 5 MG Apixaban (EliquIS) 5 mg BID PO 01/23/25 21:00 02/22/25 20:59 01/25/25 09:44 5 MG Apixaban (EliquIS) 5 mg BID PO 01/25/25 21:00 01/21/25 16:00 DC Apixaban (EliquIS) 10 mg BID PO 01/18/25 21:00 01/18/25 13:52 DC Apixaban (EliquIS) 10 mg BID PO 01/18/25 21:00 01/21/25 16:00 DC 01/21/25 08:45 10 MG Aspirin (Aspirin 81mg Chew Tab) 81 mg DAILY PO 01/05/25 09:00 01/05/25 09:53 DC Aspirin (Aspirin 81mg Ec Tab) 81 mg DAILY PO 01/16/25 09:00 02/15/25 08:59 01/25/25 09:45 81 MG Benzocaine (Cepacol Sore Throat Lozenge) 1 each Q4H PRN MM SORE THROAT 01/05/25 02:30 02/04/25 02:29 Calcium Gluconate 1 gm/Sodium Chloride 100 ml @ 0 mls/hr AD PRN IV Serum Calcium Correction 01/08/25 02:30 02/07/25 02:29 01/08/25 23:32 90 MLS/HR Cefazolin Sodium (Ancef) 2 gm Q12H IVPB 01/07/25 13:30 01/16/25 14:43 DC 01/16/25 01:12 2 GM Cefazolin Sodium (Ancef) 2 gm Q8H IVPB 01/16/25 21:30 01/17/25 13:22 DC 01/17/25 05:07 2 GM Chlordiazepoxide HCl (LIBrium 25 MG CAP) 25 mg Q8H PO 01/05/25 02:30 01/11/25 11:39 DC 01/10/25 22:23 25 MG Chlordiazepoxide HCl (LIBrium 25 MG CAP) 25 mg Q8H PRN PO WITHDRAWAL 01/11/25 12:00 01/12/25 02:29 DC Dexamethasone Sodium Phosphate 20 mg/Sodium Chloride 52 ml @ 100 mls/hr DAILY IV 01/09/25 09:00 02/08/25 08:59 01/25/25 09:44 100 MLS/HR Dexamethasone Sodium Phosphate 40 mg/Sodium Chloride 50 ml @ 100 mls/hr DAILY IV 01/06/25 14:00 01/08/25 12:16 DC 01/08/25 09:34 100 MLS/HR Dextrose (D50w) 50 ml AD PRN IV HYPOGLYCEMIA PROTOCOL 01/05/25 10:00 02/04/25 09:59 Doxycycline Hyclate 250 ml @ 125 mls/hr Q12H IV 01/05/25 10:00 01/06/25 21:05 DC 01/06/25 09:30 125 MLS/HR Doxycycline Hyclate 250 ml @ 125 mls/hr Q12H IV 01/06/25 21:30 01/16/25 14:23 DC 01/16/25 10:13 125 MLS/HR Fluconazole (DiFLUCan 100 mg TAB) 200 mg DAILY PO 01/12/25 09:00 01/25/25 16:12 DC 01/25/25 09:44 200 MG Folic Acid (FOLic ACID 1 MG TABLET) 1 mg DAILY PO 01/07/25 10:30 02/06/25 10:29 01/25/25 09:45 1 MG Furosemide (LASix 20MG VIAL) 20 mg BIDPC IV 01/25/25 10:00 01/26/25 18:01 01/25/25 18:01 20 MG Furosemide (LASix 20MG VIAL) 20 mg Q12H IV 01/07/25 16:00 01/11/25 00:56 DC 01/10/25 19:40 20 MG Gentamicin Sulfate 150 mg/ Sodium Chloride 100 ml @ 100 mls/hr Q12H IV 01/20/25 16:00 01/22/25 03:27 DC 01/21/25 16:00 100 MLS/HR Gentamicin Sulfate 90 mg/ Sodium Chloride 50 ml @ 100 mls/hr Q8H IV 01/22/25 03:30 01/22/25 03:30 DC Gentamicin Sulfate 90 mg/ Sodium Chloride 50 ml @ 100 mls/hr Q8H IV 01/22/25 04:00 01/23/25 20:03 DC 01/23/25 12:54 100 MLS/HR Gentamicin Sulfate/Sodium Chloride 100 ml @ 200 mls/hr BID@0600,1800 IV 01/24/25 06:00 01/25/25 16:12 DC 01/25/25 05:48 200 MLS/HR Gentamicin Sulfate/Sodium Chloride 100 ml @ 200 mls/hr Q12H IV 01/16/25 15:30 01/18/25 03:39 DC 01/17/25 16:00 200 MLS/HR Gentamicin Sulfate/Sodium Chloride 100 ml @ 200 mls/hr Q12H IV 01/18/25 04:00 01/20/25 06:41 DC 01/20/25 05:38 200 MLS/HR Glucagon (Glucagon 1mg Kit) 1 mg AD PRN IM HYPOGLYCEMIA PROTOCOL 01/05/25 10:00 02/04/25 09:59 Heparin Sodium/ Dextrose 250 ml @ 0 mls/hr PROTOCOL IV 01/11/25 14:30 01/18/25 13:28 DC 01/17/25 16:09 13.99 MLS/HR Hydralazine HCl (APRESOLine 20MG INJ) 5 mg Q6H PRN IV For:SBP above 160;DBP above 90 01/05/25 14:30 02/04/25 14:29 01/10/25 22:24 5 MG Hydralazine HCl (APRESOLine 20MG INJ) 10 mg Q6H PRN IV For:SBP above 160;DBP above 90 01/05/25 02:30 01/05/25 09:53 DC Insulin Glargine (LANtus 100 UNITS/ML 10 ML VIAL) 15 units DAILY SQ 01/24/25 09:00 02/23/25 08:59 01/25/25 09:56 15 UNITS Insulin Glargine (LANtus 100 UNITS/ML 10 ML VIAL) 15 units Q12H SQ 01/07/25 21:30 01/09/25 23:18 DC 01/09/25 13:10 15 UNITS Insulin Glargine (LANtus 100 UNITS/ML 10 ML VIAL) 20 units DAILY SQ 01/14/25 09:00 01/23/25 21:37 DC 01/23/25 09:41 20 UNITS Insulin Glargine (LANtus 100 UNITS/ML 10 ML VIAL) 20 units HS SQ 01/06/25 21:00 01/06/25 21:05 DC Insulin Glargine (LANtus 100 UNITS/ML 10 ML VIAL) 20 units HS SQ 01/06/25 21:30 01/07/25 10:24 DC 01/06/25 21:33 20 UNITS Insulin Glargine (LANtus 100 UNITS/ML 10 ML VIAL) 20 units Q12H SQ 01/10/25 09:30 01/10/25 12:58 DC Insulin Glargine (LANtus 100 UNITS/ML 10 ML VIAL) 25 units Q12H SQ 01/10/25 21:30 01/11/25 00:50 DC 01/10/25 22:19 25 UNITS Insulin Glargine (LANtus 100 UNITS/ML 10 ML VIAL) 30 units DAILY SQ 01/12/25 09:00 01/14/25 07:03 DC 01/12/25 11:25 30 UNITS Insulin Glargine (LANtus 100 UNITS/ML 10 ML VIAL) 30 units Q12H SQ 01/11/25 09:30 01/11/25 20:13 DC 01/11/25 10:50 30 UNITS Insulin Human Regular (humuLIN R 100 UNIT/ML 3ML) 5 unit TIDAC SQ 01/14/25 07:30 02/13/25 07:29 01/25/25 17:21 5 UNIT Insulin Human Regular (humuLIN R 100 UNIT/ML 3ML) 8 unit TIDAC SQ 01/11/25 07:30 01/14/25 07:03 DC 01/13/25 19:47 8 UNIT Insulin Human Regular (humuLIN R 100 UNIT/ML 3ML) INSULIN SLIDING SCAL... ACHS SQ 01/18/25 21:00 02/17/25 20:59 01/25/25 17:01 4 UNIT Insulin Human Regular (humuLIN R 100 UNIT/ML 3ML) INSULIN SLIDING SCAL... ACHS SQ 01/05/25 07:30 01/05/25 09:57 DC 01/05/25 07:59 16 UNIT Insulin Human Regular (humuLIN R 100 UNIT/ML 3ML) INSULIN SLIDING SCAL... ACHS SQ 01/05/25 11:30 01/06/25 16:43 DC 01/06/25 11:50 8 UNIT Insulin Human Regular (humuLIN R 100 UNIT/ML 3ML) INSULIN SLIDING SCAL... ACHS SQ 01/06/25 17:00 01/07/25 13:32 DC 01/06/25 17:17 16 UNIT Insulin Human Regular (humuLIN R 100 UNIT/ML 3ML) INSULIN SLIDING SCAL... Q4H SQ 01/11/25 02:00 01/11/25 23:59 DC 01/11/25 20:49 6 UNIT Insulin Human Regular (humuLIN R 100 UNIT/ML 3ML) INSULIN SLIDING SCAL... Q4H SQ 01/11/25 23:59 01/18/25 19:33 DC 01/18/25 16:59 4 UNIT Insulin Human Regular (humuLIN R 100 UNIT/ML 3ML) INSULIN SLIDING SCAL... Q6H6 SQ 01/10/25 18:00 01/11/25 00:50 DC 01/11/25 00:45 10 UNIT Insulin Human Regular 100 unit/ Sodium Chloride 100 ml @ 0 mls/hr AD PRN IV HYPERGLYCEMIA PROTOCOL 01/06/25 19:30 01/10/25 06:00 DC 01/09/25 19:10 16 MLS/HR Iron Sucrose (VenoFER) 300 mg Q24H IVP 01/21/25 15:00 01/21/25 15:29 DC Iron Sucrose 300 mg/Sodium Chloride 250 ml @ 166.667 mls/hr Q24H IV 01/21/25 16:00 01/21/25 17:22 DC Iron Sucrose 300 mg/Sodium Chloride 250 ml @ 166.667 mls/hr Q24H IV 01/21/25 19:30 01/21/25 20:57 DC Iron Sucrose 300 mg/Sodium Chloride 250 ml @ 166.667 mls/hr Q24H IV 01/21/25 21:00 01/23/25 22:29 DC 01/23/25 20:56 166.667 MLS/HR Lactated Ringer's 1,000 ml @ 100 mls/hr Q10H IV 01/05/25 02:30 01/05/25 09:51 DC 01/05/25 02:30 100 MLS/HR Lactated Ringer's 1,000 ml @ 125 mls/hr Q8H IV 01/10/25 01:30 01/10/25 19:40 DC 01/10/25 13:07 125 MLS/HR Lactobacillus Rhamnosus ([facility]) 1 each DAILY PO 01/12/25 09:00 02/11/25 08:59 01/25/25 09:44 1 EACH Lidocaine (Lidoderm Patch 5%) 1 patch DAILY TP 01/25/25 12:00 02/24/25 11:59 01/25/25 12:04 1 PATCH Linezolid 300 ml @ 300 mls/hr Q12H IV 01/25/25 20:30 02/04/25 20:29 Lorazepam (AtiVAN) 1 mg Q4H PRN IVP ALCOHOL WITHDRAWAL PROTOCOL 01/05/25 02:30 01/12/25 02:29 DC Magnesium Sulfate 50 ml @ 0 mls/hr PROTOCOL PRN IV h 01/05/25 02:30 02/04/25 02:29 01/25/25 10:44 25 MLS/HR Melatonin (Melatonin) 10 mg HS PRN PO INSOMNIA 01/21/25 21:30 02/20/25 21:29 01/24/25 22:23 10 MG Morphine Sulfate (morPHINE 2MG SYG) 2 mg Q4H PRN IVP SEVERE PAIN (7-10) 01/05/25 02:30 01/12/25 02:29 DC Multivitamins Therapeutic (Multivitamin Tablet) 1 tab DAILY PO 01/07/25 10:30 02/06/25 10:29 01/25/25 09:45 1 TAB Nafcillin Sodium (Nafcillin 2gm+ NS 100ml) 2 gm Q6H6 IV 01/17/25 18:00 01/25/25 16:12 DC 01/25/25 12:18 2 GM Nicotine (Nicoderm) 21 mg DAILY TD 01/05/25 09:00 02/04/25 08:59 01/25/25 09:49 21 MG Nitroglycerin (Nitrostat) 0.4 mg AD PRN SL CHEST PAIN 01/05/25 02:30 02/04/25 02:29 Nystatin (NYSTatin 720118 UNIT/ML 5ML UDCUP) 100,000 UNITS 1 ML TO E... QID PO 01/18/25 09:00 02/17/25 08:59 01/25/25 17:06 2 ML Ondansetron HCl (zoFRAN 4MG INJ) 4 mg Q6H PRN IV NAUSEA/VOMITING 01/05/25 02:30 02/04/25 02:29 Pantoprazole Sodium (PROTonix 40MG TAB) 40 mg DAILY PO 01/05/25 09:00 02/04/25 08:59 01/25/25 09:45 40 MG Pharmacy Profile Note (Pharmacy Communication) 1 each ONCE MISC 01/16/25 14:30 01/16/25 15:12 DC Pharmacy Profile Note (Pharmacy Communication) 1 each ONCE MISC 01/25/25 07:30 01/25/25 07:26 DC Pharmacy Profile Note (Pharmacy Communication) 1 each ONCE MISC 01/25/25 16:30 01/25/25 16:12 DC Pharmacy Profile Note (Pharmacy Communication) 1 each PROTOCOL PRN MISC ETOH Withdrawal Score changes 01/05/25 02:30 01/12/25 02:29 DC Piperacillin Sod/ Tazobactam Sod (Zosyn 3.375gm+NS 50ml) 3.375 gm Q12H IV 01/05/25 02:30 01/07/25 13:24 DC 01/07/25 02:45 3.375 GM Potassium Phosphate 250 ml @ 42 mls/hr PROTOCOL PRN IV PROTOCOL 01/05/25 10:00 02/04/25 09:59 Potassium Chloride 100 ml @ 100 mls/hr AD PRN IV POTASSIUM PROTOCOL 01/05/25 02:30 01/07/25 10:12 DC Potassium Chloride 100 ml @ 100 mls/hr AD PRN IV POTASSIUM PROTOCOL 01/07/25 10:30 02/06/25 10:29 01/09/25 06:26 100 MLS/HR Potassium Chloride (K-Dur 10meq Sr Tab) 10 meq AD PRN PO POTASSIUM PROTOCOL 01/06/25 09:30 02/04/25 02:29 01/08/25 23:35 10 MEQ Potassium Chloride (K-Dur/Klor-Con 20meq) 10 meq AD PRN PO POTASSIUM PROTOCOL 01/05/25 02:30 01/06/25 09:12 DC 01/05/25 22:15 10 MEQ Potassium Chloride (K-Dur/Klor-Con 20meq) 10 meq AD PRN PO POTASSIUM PROTOCOL 01/07/25 10:30 01/07/25 10:12 DC Potassium Chloride (KCl 10% Elixir 20meq/15ml) 10 meq AD PRN PO POTASSIUM PROTOCOL 01/05/25 02:30 01/07/25 10:12 DC 01/06/25 17:16 10 MEQ Potassium Chloride (KCl 10% Elixir 20meq/15ml) 10 meq AD PRN PO POTASSIUM PROTOCOL 01/07/25 10:30 02/06/25 10:29 01/23/25 15:27 10 MEQ Sodium Bicarbonate (Sodium Bicarbonate) 1,300 mg BID PO 01/11/25 09:00 02/10/25 08:59 01/25/25 09:44 1,300 MG Sodium Chloride 1,000 ml @ 50 mls/hr Q20H IV 01/05/25 10:00 01/10/25 01:33 DC 01/09/25 05:56 50 MLS/HR Sodium Chloride 1,000 ml @ 75 mls/hr [id number] IV 01/11/25 01:00 01/11/25 13:45 DC 01/11/25 01:00 75 MLS/HR Triamcinolone Acetonide (Kenalog/ Aristocort) 1 APPLY TP BID BID TP 01/07/25 11:00 02/06/25 10:59 01/25/25 13:31 1 APPL Vancomycin HCl (Vancomycin Protocol) 1 each AD IV 01/07/25 12:30 01/07/25 12:40 DC Diagnostics / Radiology: [COPY/PASTE HERE IF NO REPORTS PLEASE DELETE SECTION] Assessment: GERD esophagitis Decompensated cirrhosis Thrombocytopenia Abnormal troponin Alcohol abuse Plan: Follow cardio recommendations Will obtain liver serologies to r/o other liver pathology Please contact our service if the patient has significant bleeding such as hematemesis and we can proceed sooner with the EGD Thanks you for allowing us to participate in the care of this patient! HILDA MUIR PSYCHOMETRIC EXAMINER Jan 25, 2025 18:11
[2025-01-25] MEDS: LINEZOLID 600 MG/ISO-OSM 300 ML IV SCH (20:33)
[2025-01-25] MEDS ORDERED: APIXaban 5 MG TABLET PO SCH (21:00)
--- NOTE | 2025-01-25 21:10 | PN ---
[facility] PROGRESS NOTE Date of Service: Jan 25, 2025 Time of Service: 21:09 SUBJECTIVE: [ ] The patient has been seen and examined at bedside, no acute events overnight, the patient is comfortable, cooperating well, alert oriented x3, he is on a CIWA protocol, not combative. BP 123/70, rest of vital signs unremarkable. Patient received transfusion of 1 unit of platelet, platelet count improved to 27, per acid recovery operator, likely due to splenomegaly. Echocardiogram reviewed, hypodense echogenic mobile vegetation to right coronary cusp leaflet, per cardiology once platelet count is greater than 50 1000 we will proceed with a a DRAKE. The pa tient also with a elevated blood sugar, continue insulin sliding scale, add insulin glargine 20 units subcutaneously at bedtime. Continue the patient on broad-spectrum IV antibiotics, continue to trend WBC in a.m.. 01/07 patient is seen and examined at bedside, case discussed with the RN, patient upgraded last night to the ICU to start insulin drip as blood glucose per sistently greater than 400. Patient started on dexamethasone IV by acid recovery operator do to ITP. Platelet count slightly better today at 41. Upon my initial encounter with the patient admitted that he drinks more than 18 beers per day. He was started on CIWA protocol, however has remained hemodynamically stable, comfortable in bed, no signs of withdrawal, cooperating fine. Not agitated, not combative. Toxicology screen positive for cocaine. Sodium level slowly improvi ng, today 132. Serology positive for influenza type A. The patient with significant proteinuria consistent with diabetic nephropathy, creatinine slowly trending down, no need for renal replacement therapy per air conditioning manager. Patient with blood culture positive for Staphylococcus aureus, with urine culture positive for Klebsiella pneumoniae. We will add vancomycin IV pharmacy to dose. We will request Infectious Disease consultation. Echocardiogram reviewed, hypodense echogenic mobile vegetation to right coronary cusp leaflet, per cardiology once platelet count is greater than 50 1000 we will proceed with a a DRAKE. CT abdomen with gallstones in the gallbladder. HIDA scan pending 01/08 patient seen at bedside, no acute events overnight. He continues on insulin drip with an anion gap of 14, we will continue until the gap is closed. P latelets 54, we will follow up with Cardiology on optimal timing for DRAKE. Continue with IV antibiotics, further care per critical Care. 2/10 patient seen at bedside, no acute events overnight. Anion gap is still open at 14, we will continue IV insulin. Platelets improved from 54 up to 71, CO2 decreased from 17 down to 15. Cardiology planning on DRAKE today, we will follow up postprocedure. Repeat blood cultures are positive for Gram-positive organisms which further supports underlying endocarditis. Continue with IV antibiotics, appreciate Infectious Disease recommendations. He has been afebrile, hemodynamically stable saturating well on room air. WBC increased from 12.8 up to 13.6, BUN decreased from 93 down to 90, creatinine decreased from 2.5 down to 2.3, remainder of his labs are relatively unremarkable. 01/10 Pt seen at bedside, no acute events overnight. Pt with anion gap of 14, CO2 still low at 16. Repeat lactic acid was ordered, elevated at 4.8, will bolus patient and continue with IV fluids. DRAKE was rescheduled to today, will follow up with results.WBC improved from 13.6 down to 11.7, Hgb decreased from 15.1 down to 12.4, platelets decreased from 71 down to 66, this substantial decrease in all cell lines suggests hemodilution, creatinine decreased from 2.2 down to 1.4, also likely falsely depressed. 01/11 Pt seen at bedside, no acute events overnight. Pending EGD to assess for esophageal varices and DRAKE today, will follow up post procedure. Yesterday repeat lactic acid was elevated at 4.8, the patient was bolused and it improved down to 1.3. He has been afebrile, hemodynamically stable, saturating well on room air. WBC increased from 11.7 up to 12.5, platelets improved from 66 up to 113, creatinine increased from 1.6 up to 1.8, CO2 improved from 17 up to 22 after patient was started on bicarb. Third set of blood cultures growing gram positive organisms 01/12 patient is seen and examined at bedside, case discussed with the RN, no acute events overnight, remains on broad-spectrum IV antibiotics, alert oriented x3, following commands. Patient underwent DRAKE 01/11, tolerated well, LVEF 60- 65%, no left ventricle thrombus noted. Right ventricle is severely dilated. Left atrial appendage clot present. No mass or thrombus in the left atrium. No mass or thrombus in the right atrium. Aortic valve is trileaflet, opens well, non coronary cusp leaflet has vegetation that measures 1.8 x 1.1 cm. No mitral valve vegetation, no tricuspid valve vegetation, no pulmonic valve vegetation. Finding discussed with the patient, all questions answered. 01/13 patient is seen and examined at bedside, case discussed with the RN, no acute events overnight, during my visit the patient comfortably in bed, hemodynamically stable, alert oriented x3, getting IV antibiotics, denies chest pain, no shortness a breath, no nausea, no vomiting. 01/14 patient is seen and examined at bedside, downgraded to the medical floor, case discussed with the RN, patient hemodynamically stable, alert oriented x3, on heparin drip, no chest pain, no shortness a breath, no nausea, no vomiting. 01/15 patient is seen and examined bedside, case discussed with the RN, no acute events overnight. Patient with blood culture positive for Staphylococcus aureus, with urine culture positive for Klebsiella pneumoniae. Patient underwent DRAKE 01/11, tolerated well, LVEF 60-65%, no left ventricle thrombus noted. Right ventricle is severely dilated. Left atrial appendage clot present. No mass or thrombus in the left atrium. No mass or thrombus in the right atrium. Aortic valve is trileaflet, opens well, non coronary cusp leaflet has vegetation that measures 1.8 x 1.1 cm. No mitral valve vegetation, no tricuspid valve vegetation, no pulmonic valve vegetation. Continue heparin drip. Patient evaluated by Cardiothoracic surgeon. Medical management recommended for now. Re-evaluate possibility of aortic valve replacement in the near future. 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 Continue to follow Hematology input and recommendation Discharge plan discussed with case management, patient is uninsured, probably will have to remain admitted until completion of IV antibiotic course. 01/16 Pt seen at bedside, no acute events overnight. Most recent blood cultures are no growth to date. CV surgery suggesting aortic valve replacement may be feasible if patient recent blood cultures no growth for another 5 days. If valve replacement will not be done, patient will need to complete full course of IV antibiotics before discharge as he is unfunded. Vitals and labs are relatively unremarkable 01/17 patient seen at bedside, no acute events overnight. Most recent blood cultures are growing Gram-positive organism, we will continue with IV antibiotics. Antibiotics have been adjusted by Infectious Disease, surgery will be held. 01/18 patient seen at bedside, no acute events overnight. Continue with broad- spectrum antibiotics, we will follow up with cardiovascular surgery regarding possible surgery once infection better controlled. Discussed case with acid recovery operator who recommends heparin drip however patient we will need to be anticoagulated on discharge and given his own fundus status we will likely need to be started on warfarin. Vitals and labs relatively unremarkable. 01/19 patient seen at bedside, no acute events overnight. Continue with broad- spectrum antibiotics, we will follow up with cardiovascular surgery regarding possible surgery once infection better controlled. Patient started on eliquis. Hgb decreased from 9.6 down to 9.0, Vitals and labs otherwise relatively unremarkable. 01/20 patient seen at bedside, no acute events overnight. Continue with broad- spectrum antibiotics, we will follow up with cardiovascular surgery regarding possible surgery once infection better controlled. Patient started on eliquis. Hgb decreased from 9.0 down to 8.5, Vitals and labs otherwise relatively unremarkable. 01/21 Pt seen at bedside, no acute events overnight. Continue broad spectrum an tibiotics. Lab holiday today, continue with anticoagulation and broad spectrum antibiotics. 01/22 Pt seen at bedside, no acute events overnight. Continue broad spectrum antibiotics. Lab holiday today, continue with anticoagulation and broad spectrum antibiotics. 01/23/25 patient was seen and examined. Case discussed with the RN. No acute overnight events reported. Continue with the antibiotics 01/24/25 Pt seen at bedside, no acute events overnight. Continue broad spectrum antibiotics. check labs /continue with anticoagulation and broad spectrum antibiotics. 01/25/25 patient was seen and examined. Case discussed with the RN. No acute overnight events reported. Continue with the antibiotics REVIEW OF SYSTEMS 12 point review of systems negative unless noted in HPI PHYSICAL EXAM GENERAL APPEARANCE: The patient is awake, alert, and oriented, in no acute cardiopulmonary distress. NEUROLOGICAL: Cranial nerves II-XII grossly intact. Motor is 5/5 in bilateral upper and lower extremities proximal to distal. No sensory deficits. HEENT: Face is symmetric. Pupils are equal and reactive. Extraocular movements are intact. NECK: Supple. No JVD. No thyromegaly. No submental, submandibular, pre- /postauricular, occipital or supraclavicular lymphadenopathy. CHEST: Normal chest expansion. No Telemetry. LUNGS: Absence of any rales, rhonchi or any wheezing. CARDIOVASCULAR: Regular. S1 and S2 normal. No appreciable rubs, murmurs or gallops. ABDOMEN: Soft, nontender, and nondistended. There is no rebound, voluntary guarding, or rigidity. : Deferred. No Ortega. EXTREMITIES: Non-edematous and not cyanotic. No clubbing. Good capillary refill. SKIN: No skin breakdown. Vital Signs (last 8hr) Date Time Temp Pulse Resp B/P (MAP) Pulse Ox O2 Delivery O2 Flow Rate FiO2 01/25/25 16:00 98.2 86 18 150/83 99 Room Air 01/25/25 13:52 96 Room Air* 0 21 LABS: Laboratory: Test 01/25/25 20:18 01/25/25 06:20 01/25/25 05:37 01/25/25 05:00 Range/Units Whole Blood Glucose 171 H 70-110 MG/DL Gentamicin Level Peak 5.2 # 4.0-8.0 mcg/mL Bedside Glucose Comment Protocol Initiated White Blood Count 8.0 4.8-10.8 K/uL Red Blood Count 2.46 L 4.50-6.20 MIL/uL Hemoglobin 7.9 L 14.0-18.0 g/dL Hematocrit 23.7 L 42-54 % Mean Corpuscular Volume 96.3 79-99 fL Mean Corpuscular Hemoglobin 32.1 27.0-33.0 pg Mean Corpuscular Hemoglobin Concent 33.3 32.0-36.0 g/dL Red Cell Distribution Width 14.1 11.0-15.5 % Platelet Count 145 130-400 K/uL Mean Platelet Volume 10.7 H 7.5-10.5 fL Immature Granulocyte % (Auto) 0.7 0-1 % Neutrophils (%) (Auto) 73.5 40.0-77.0 % Lymphocytes (%) (Auto) 17.7 L 21.0-51.0 % Monocytes (%) (Auto) 6.4 3.0-13.0 % Eosinophils (%) (Auto) 1.6 0.0-8.0 % Basophils (%) (Auto) 0.1 0.0-5.0 % Neutrophils # (Auto) 5.9 1.8-7.7 K/uL Lymphocytes # (Auto) 1.4 1.0-4.8 K/uL Monocytes # (Auto) 0.5 0.1-1.0 K/uL Eosinophils # (Auto) 0.13 0.00-0.70 K/uL Basophils # (Auto) 0.01 0.00-0.20 K/uL Absolute Immature Granulocyte (auto 0.06 0-1 K/uL Nucleated Red Blood Cells 0.0 0.0-0.19 % Sodium Level 136 136-145 mmol/L Potassium Level 3.9 3.5-5.1 mmol/L Chloride Level 104 101-111 mmol/L Carbon Dioxide Level 26 21-32 mmol/L Blood Urea Nitrogen 20 H 7-18 mg/dL Creatinine 1.1 0.5-1.3 mg/dL Glomerular Filtration Rate Calc 85 >90 mL/min Random Glucose 190 H 70-105 mg/dL Total Calcium 7.7 L 8.5-10.1 mg/dL Magnesium Level 1.80 1.80-2.40 mg/dL B-Type Natriuretic Peptide 611 H 0-100 pg/mL Gentamicin Level Trough 0.9 # 0.0-2.0 mcg/mL Test 01/24/25 04:23 Range/Units Prothrombin Time 10.9 9.6-11.6 SEC Prothromb Time International Ratio 1.03 0.85-1.15 Activated Partial Thromboplast Time 36.5 H 26.3-35.5 SEC Current Medications Medications (Trade) Dose Ordered Sig/Asya Route PRN Reason Start Time Stop Time Status Last Admin Dose Admin Acetaminophen (TYLenol 325MG TAB) 650 mg Q6H PRN PO MILD PAIN (1-3) 01/16/25 17:30 02/15/25 17:29 01/24/25 01:44 650 MG Acetaminophen (TYLenol 325MG TAB) 650 mg Q6H PRN PO TEMPERATURE GREATER THAN 101.5 01/05/25 02:30 02/04/25 02:29 01/25/25 17:03 650 MG Apixaban (EliquIS) 5 mg BID PO 01/21/25 21:00 01/23/25 10:57 DC 01/22/25 09:02 5 MG Apixaban (EliquIS) 5 mg BID PO 01/23/25 21:00 02/22/25 20:59 01/25/25 20:33 5 MG Apixaban (EliquIS) 5 mg BID PO 01/25/25 21:00 01/21/25 16:00 DC Apixaban (EliquIS) 10 mg BID PO 01/18/25 21:00 01/18/25 13:52 DC Apixaban (EliquIS) 10 mg BID PO 01/18/25 21:00 01/21/25 16:00 DC 01/21/25 08:45 10 MG Aspirin (Aspirin 81mg Chew Tab) 81 mg DAILY PO 01/05/25 09:00 01/05/25 09:53 DC Aspirin (Aspirin 81mg Ec Tab) 81 mg DAILY PO 01/16/25 09:00 02/15/25 08:59 01/25/25 09:45 81 MG Benzocaine (Cepacol Sore Throat Lozenge) 1 each Q4H PRN MM SORE THROAT 01/05/25 02:30 02/04/25 02:29 Calcium Gluconate 1 gm/Sodium Chloride 100 ml @ 0 mls/hr AD PRN IV Serum Calcium Correction 01/08/25 02:30 02/07/25 02:29 01/08/25 23:32 90 MLS/HR Cefazolin Sodium (Ancef) 2 gm Q12H IVPB 01/07/25 13:30 01/16/25 14:43 DC 01/16/25 01:12 2 GM Cefazolin Sodium (Ancef) 2 gm Q8H IVPB 01/16/25 21:30 01/17/25 13:22 DC 01/17/25 05:07 2 GM Chlordiazepoxide HCl (LIBrium 25 MG CAP) 25 mg Q8H PO 01/05/25 02:30 01/11/25 11:39 DC 01/10/25 22:23 25 MG Chlordiazepoxide HCl (LIBrium 25 MG CAP) 25 mg Q8H PRN PO WITHDRAWAL 01/11/25 12:00 01/12/25 02:29 DC Dexamethasone Sodium Phosphate 20 mg/Sodium Chloride 52 ml @ 100 mls/hr DAILY IV 01/09/25 09:00 02/08/25 08:59 01/25/25 09:44 100 MLS/HR Dexamethasone Sodium Phosphate 40 mg/Sodium Chloride 50 ml @ 100 mls/hr DAILY IV 01/06/25 14:00 01/08/25 12:16 DC 01/08/25 09:34 100 MLS/HR Dextrose (D50w) 50 ml AD PRN IV HYPOGLYCEMIA PROTOCOL 01/05/25 10:00 02/04/25 09:59 Doxycycline Hyclate 250 ml @ 125 mls/hr Q12H IV 01/05/25 10:00 01/06/25 21:05 DC 01/06/25 09:30 125 MLS/HR Doxycycline Hyclate 250 ml @ 125 mls/hr Q12H IV 01/06/25 21:30 01/16/25 14:23 DC 01/16/25 10:13 125 MLS/HR Fluconazole (DiFLUCan 100 mg TAB) 200 mg DAILY PO 01/12/25 09:00 01/25/25 16:12 DC 01/25/25 09:44 200 MG Folic Acid (FOLic ACID 1 MG TABLET) 1 mg DAILY PO 01/07/25 10:30 02/06/25 10:29 01/25/25 09:45 1 MG Furosemide (LASix 20MG VIAL) 20 mg BIDPC IV 01/25/25 10:00 01/26/25 18:01 01/25/25 18:01 20 MG Furosemide (LASix 20MG VIAL) 20 mg Q12H IV 01/07/25 16:00 01/11/25 00:56 DC 01/10/25 19:40 20 MG Gentamicin Sulfate 150 mg/ Sodium Chloride 100 ml @ 100 mls/hr Q12H IV 01/20/25 16:00 01/22/25 03:27 DC 01/21/25 16:00 100 MLS/HR Gentamicin Sulfate 90 mg/ Sodium Chloride 50 ml @ 100 mls/hr Q8H IV 01/22/25 03:30 01/22/25 03:30 DC Gentamicin Sulfate 90 mg/ Sodium Chloride 50 ml @ 100 mls/hr Q8H IV 01/22/25 04:00 01/23/25 20:03 DC 01/23/25 12:54 100 MLS/HR Gentamicin Sulfate/Sodium Chloride 100 ml @ 200 mls/hr BID@0600,1800 IV 01/24/25 06:00 01/25/25 16:12 DC 01/25/25 05:48 200 MLS/HR Gentamicin Sulfate/Sodium Chloride 100 ml @ 200 mls/hr Q12H IV 01/16/25 15:30 01/18/25 03:39 DC 01/17/25 16:00 200 MLS/HR Gentamicin Sulfate/Sodium Chloride 100 ml @ 200 mls/hr Q12H IV 01/18/25 04:00 01/20/25 06:41 DC 01/20/25 05:38 200 MLS/HR Glucagon (Glucagon 1mg Kit) 1 mg AD PRN IM HYPOGLYCEMIA PROTOCOL 01/05/25 10:00 02/04/25 09:59 Heparin Sodium/ Dextrose 250 ml @ 0 mls/hr PROTOCOL IV 01/11/25 14:30 01/18/25 13:28 DC 01/17/25 16:09 13.99 MLS/HR Hydralazine HCl (APRESOLine 20MG INJ) 5 mg Q6H PRN IV For:SBP above 160;DBP above 90 01/05/25 14:30 02/04/25 14:29 01/10/25 22:24 5 MG Hydralazine HCl (APRESOLine 20MG INJ) 10 mg Q6H PRN IV For:SBP above 160;DBP above 90 01/05/25 02:30 01/05/25 09:53 DC Insulin Glargine (LANtus 100 UNITS/ML 10 ML VIAL) 15 units DAILY SQ 01/24/25 09:00 02/23/25 08:59 01/25/25 09:56 15 UNITS Insulin Glargine (LANtus 100 UNITS/ML 10 ML VIAL) 15 units Q12H SQ 01/07/25 21:30 01/09/25 23:18 DC 01/09/25 13:10 15 UNITS Insulin Glargine (LANtus 100 UNITS/ML 10 ML VIAL) 20 units DAILY SQ 01/14/25 09:00 01/23/25 21:37 DC 01/23/25 09:41 20 UNITS Insulin Glargine (LANtus 100 UNITS/ML 10 ML VIAL) 20 units HS SQ 01/06/25 21:00 01/06/25 21:05 DC Insulin Glargine (LANtus 100 UNITS/ML 10 ML VIAL) 20 units HS SQ 01/06/25 21:30 01/07/25 10:24 DC 01/06/25 21:33 20 UNITS Insulin Glargine (LANtus 100 UNITS/ML 10 ML VIAL) 20 units Q12H SQ 01/10/25 09:30 01/10/25 12:58 DC Insulin Glargine (LANtus 100 UNITS/ML 10 ML VIAL) 25 units Q12H SQ 01/10/25 21:30 01/11/25 00:50 DC 01/10/25 22:19 25 UNITS Insulin Glargine (LANtus 100 UNITS/ML 10 ML VIAL) 30 units DAILY SQ 01/12/25 09:00 01/14/25 07:03 DC 01/12/25 11:25 30 UNITS Insulin Glargine (LANtus 100 UNITS/ML 10 ML VIAL) 30 units Q12H SQ 01/11/25 09:30 01/11/25 20:13 DC 01/11/25 10:50 30 UNITS Insulin Human Regular (humuLIN R 100 UNIT/ML 3ML) 5 unit TIDAC SQ 01/14/25 07:30 02/13/25 07:29 01/25/25 17:21 5 UNIT Insulin Human Regular (humuLIN R 100 UNIT/ML 3ML) 8 unit TIDAC SQ 01/11/25 07:30 01/14/25 07:03 DC 01/13/25 19:47 8 UNIT Insulin Human Regular (humuLIN R 100 UNIT/ML 3ML) INSULIN SLIDING SCAL... ACHS SQ 01/18/25 21:00 02/17/25 20:59 01/25/25 17:01 4 UNIT Insulin Human Regular (humuLIN R 100 UNIT/ML 3ML) INSULIN SLIDING SCAL... ACHS SQ 01/05/25 07:30 01/05/25 09:57 DC 01/05/25 07:59 16 UNIT Insulin Human Regular (humuLIN R 100 UNIT/ML 3ML) INSULIN SLIDING SCAL... ACHS SQ 01/05/25 11:30 01/06/25 16:43 DC 01/06/25 11:50 8 UNIT Insulin Human Regular (humuLIN R 100 UNIT/ML 3ML) INSULIN SLIDING SCAL... ACHS SQ 01/06/25 17:00 01/07/25 13:32 DC 01/06/25 17:17 16 UNIT Insulin Human Regular (humuLIN R 100 UNIT/ML 3ML) INSULIN SLIDING SCAL... Q4H SQ 01/11/25 02:00 01/11/25 23:59 DC 01/11/25 20:49 6 UNIT Insulin Human Regular (humuLIN R 100 UNIT/ML 3ML) INSULIN SLIDING SCAL... Q4H SQ 01/11/25 23:59 01/18/25 19:33 DC 01/18/25 16:59 4 UNIT Insulin Human Regular (humuLIN R 100 UNIT/ML 3ML) INSULIN SLIDING SCAL... Q6H6 SQ 01/10/25 18:00 01/11/25 00:50 DC 01/11/25 00:45 10 UNIT Insulin Human Regular 100 unit/ Sodium Chloride 100 ml @ 0 mls/hr AD PRN IV HYPERGLYCEMIA PROTOCOL 01/06/25 19:30 01/10/25 06:00 DC 01/09/25 19:10 16 MLS/HR Iron Sucrose (VenoFER) 300 mg Q24H IVP 01/21/25 15:00 01/21/25 15:29 DC Iron Sucrose 300 mg/Sodium Chloride 250 ml @ 166.667 mls/hr Q24H IV 01/21/25 16:00 01/21/25 17:22 DC Iron Sucrose 300 mg/Sodium Chloride 250 ml @ 166.667 mls/hr Q24H IV 01/21/25 19:30 01/21/25 20:57 DC Iron Sucrose 300 mg/Sodium Chloride 250 ml @ 166.667 mls/hr Q24H IV 01/21/25 21:00 01/23/25 22:29 DC 01/23/25 20:56 166.667 MLS/HR Lactated Ringer's 1,000 ml @ 100 mls/hr Q10H IV 01/05/25 02:30 01/05/25 09:51 DC 01/05/25 02:30 100 MLS/HR Lactated Ringer's 1,000 ml @ 125 mls/hr Q8H IV 01/10/25 01:30 01/10/25 19:40 DC 01/10/25 13:07 125 MLS/HR Lactobacillus Rhamnosus ([facility]) 1 each DAILY PO 01/12/25 09:00 02/11/25 08:59 01/25/25 09:44 1 EACH Lidocaine (Lidoderm Patch 5%) 1 patch DAILY TP 01/25/25 12:00 02/24/25 11:59 01/25/25 12:04 1 PATCH Linezolid 300 ml @ 300 mls/hr Q12H IV 01/25/25 20:30 02/04/25 20:29 01/25/25 20:33 300 MLS/HR Lorazepam (AtiVAN) 1 mg Q4H PRN IVP ALCOHOL WITHDRAWAL PROTOCOL 01/05/25 02:30 01/12/25 02:29 DC Magnesium Sulfate 50 ml @ 0 mls/hr PROTOCOL PRN IV h 01/05/25 02:30 02/04/25 02:29 01/25/25 10:44 25 MLS/HR Melatonin (Melatonin) 10 mg HS PRN PO INSOMNIA 01/21/25 21:30 02/20/25 21:29 01/24/25 22:23 10 MG Morphine Sulfate (morPHINE 2MG SYG) 2 mg Q4H PRN IVP SEVERE PAIN (7-10) 01/05/25 02:30 01/12/25 02:29 DC Multivitamins Therapeutic (Multivitamin Tablet) 1 tab DAILY PO 01/07/25 10:30 02/06/25 10:29 01/25/25 09:45 1 TAB Nafcillin Sodium (Nafcillin 2gm+ NS 100ml) 2 gm Q6H6 IV 01/17/25 18:00 01/25/25 16:12 DC 01/25/25 12:18 2 GM Nicotine (Nicoderm) 21 mg DAILY TD 01/05/25 09:00 02/04/25 08:59 01/25/25 09:49 21 MG Nitroglycerin (Nitrostat) 0.4 mg AD PRN SL CHEST PAIN 01/05/25 02:30 02/04/25 02:29 Nystatin (NYSTatin 746192 UNIT/ML 5ML UDCUP) 100,000 UNITS 1 ML TO E... QID PO 01/18/25 09:00 02/17/25 08:59 01/25/25 20:33 2 ML Ondansetron HCl (zoFRAN 4MG INJ) 4 mg Q6H PRN IV NAUSEA/VOMITING 01/05/25 02:30 02/04/25 02:29 Pantoprazole Sodium (PROTonix 40MG TAB) 40 mg DAILY PO 01/05/25 09:00 02/04/25 08:59 01/25/25 09:45 40 MG Pharmacy Profile Note (Pharmacy Communication) 1 each ONCE MISC 01/16/25 14:30 01/16/25 15:12 DC Pharmacy Profile Note (Pharmacy Communication) 1 each ONCE MISC 01/25/25 07:30 01/25/25 07:26 DC Pharmacy Profile Note (Pharmacy Communication) 1 each ONCE MISC 01/25/25 16:30 01/25/25 16:12 DC Pharmacy Profile Note (Pharmacy Communication) 1 each PROTOCOL PRN MISC ETOH Withdrawal Score changes 01/05/25 02:30 01/12/25 02:29 DC Piperacillin Sod/ Tazobactam Sod (Zosyn 3.375gm+NS 50ml) 3.375 gm Q12H IV 01/05/25 02:30 01/07/25 13:24 DC 01/07/25 02:45 3.375 GM Potassium Phosphate 250 ml @ 42 mls/hr PROTOCOL PRN IV PROTOCOL 01/05/25 10:00 02/04/25 09:59 Potassium Chloride 100 ml @ 100 mls/hr AD PRN IV POTASSIUM PROTOCOL 01/05/25 02:30 01/07/25 10:12 DC Potassium Chloride 100 ml @ 100 mls/hr AD PRN IV POTASSIUM PROTOCOL 01/07/25 10:30 02/06/25 10:29 01/09/25 06:26 100 MLS/HR Potassium Chloride (K-Dur 10meq Sr Tab) 10 meq AD PRN PO POTASSIUM PROTOCOL 01/06/25 09:30 02/04/25 02:29 01/08/25 23:35 10 MEQ Potassium Chloride (K-Dur/Klor-Con 20meq) 10 meq AD PRN PO POTASSIUM PROTOCOL 01/05/25 02:30 01/06/25 09:12 DC 01/05/25 22:15 10 MEQ Potassium Chloride (K-Dur/Klor-Con 20meq) 10 meq AD PRN PO POTASSIUM PROTOCOL 01/07/25 10:30 01/07/25 10:12 DC Potassium Chloride (KCl 10% Elixir 20meq/15ml) 10 meq AD PRN PO POTASSIUM PROTOCOL 01/05/25 02:30 01/07/25 10:12 DC 01/06/25 17:16 10 MEQ Potassium Chloride (KCl 10% Elixir 20meq/15ml) 10 meq AD PRN PO POTASSIUM PROTOCOL 01/07/25 10:30 02/06/25 10:29 01/23/25 15:27 10 MEQ Sodium Bicarbonate (Sodium Bicarbonate) 1,300 mg BID PO 01/11/25 09:00 02/10/25 08:59 01/25/25 20:33 1,300 MG Sodium Chloride 1,000 ml @ 50 mls/hr Q20H IV 01/05/25 10:00 01/10/25 01:33 DC 01/09/25 05:56 50 MLS/HR Sodium Chloride 1,000 ml @ 75 mls/hr [id number] IV 01/11/25 01:00 01/11/25 13:45 DC 01/11/25 01:00 75 MLS/HR Triamcinolone Acetonide (Kenalog/ Aristocort) 1 APPLY TP BID BID TP 01/07/25 11:00 02/06/25 10:59 01/25/25 13:31 1 APPL Vancomycin HCl (Vancomycin Protocol) 1 each AD IV 01/07/25 12:30 01/07/25 12:40 DC DIAGNOSTICS / RADIOLOGY: [ ] ASSESSMENT: Severe sepsis, resolved POA Gram-positive bacteremia secondary to Staphylococcus aureus, POA Hypodense echogenic mobile vegetation to right coronary cusp leaflet on echocardiogram 01/05/2025 Left atrial appendage clot present. on DRAKE 01/11 non coronary cusp leaflet has vegetation that measures 1.8 x 1.1 cm. on DRAKE 01/11 Urinary tract infection, secondary to Klebsiella pneumoniae, POA Strep pharyngitis, POA ITP, POA Leukocytosis, POA Hyperlactatemia, POA Acute kidney injury, POA Hypokalemia, POA Hyponatremia, POA Hypomagnesemia, POA POA New onset Uncontrolled Diabetes mellitius type2, POA Elevated troponin, POA Cocaine abuse, POA Alcohol abuse, POA Tobacco dependence, POA Significant proteinuria, POA Diabetic nephropathy, POA Gallstones, POA Fidelina esophagitis on EGD 01/11 PLAN: -patient remains admitted to the medical floor. -continue the patient on broad-spectrum IV antibiotics -results of DRAKE reviewed, Left atrial appendage clot present. on DRAKE 01/11, aortic valve is trileaflet, opens well. Non coronary cusp leaflet has vegetation that measures 1.8 x 1.1 cm. on DRAKE 01/11 -continue heparin drip. Patient already evaluated by Cardiothoracic surgeon, continue medical management, we will re-evaluate possibility of aortic valve replacement in the near future. 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 Continue to follow Hematology input and recommendation -renal function slightly improved today, patient evaluated by air conditioning manager, the patient with significant proteinuria on UA consistent with diabetic nephropathy. No acute need for any form of renal replacement therapy. -blood culture positive for Staphylococcus aureus. Urine culture positive for Klebsiella pneumoniae. Continue broad-spectrum IV antibiotics, continue to follow ID input recommendation. -case discussed with case management, patient to complete course of IV antibiotics likely during this hospitalization as the patient is uninsured. Disposition: Pending improvement in clinical condition. All questions answered time spent: > 35 min PUJA DOMINGUEZ MD Jan 25, 2025 21:10
[2025-01-26 00:56] VITALS: BP 142/68; PULSE 85; RESP 19; TEMP 97.9
--- NOTE | 2025-01-26 04:14 | NUR ---
NURSE NOTE Patient called nurse to inform he threw up blood with 1 blood clot about 2 inches long. Vitals stable. Denies chest pain or nausea. Patient was sleeping when it happened. Paged Abbie Martínez NP. New orders entered. Hold eliquis. Contact GI in the AM. Keep NPO.
[2025-01-26 04:18] VITALS: BP 136/72; PULSE 81; RESP 19; TEMP 98.2
[2025-01-26] MEDS: PANTOPrazole 40 MG/VIAL IVP SCH (04:45)
[2025-01-26 06:14] LABS: HEMATOCRIT 26.2 % (42-54); MEAN CORPUSCULAR HEMOGLOBIN 31.9 pg (27.0-33.0); MEAN CORPUSCULAR HGB CONC 32.8 g/dL (32.0-36.0); PLATELET COUNT (AUTO) 186 K/uL (130-400); RED CELL DISTRIBUTION WIDTH 14.4 % (11.0-15.5); WHITE BLOOD COUNT (AUTO) 9.1 K/uL (4.8-10.8)
[2025-01-26 06:22] LABS: CREATININE 1.1 mg/dL (0.5-1.3); POTASSIUM 3.8 mmol/L (3.5-5.1)
[2025-01-26 07:17] LABS: BASOPHILS # (AUTO) 0.01 K/uL (0.00-0.20); BASOPHILS % (AUTO) 0.1 % (0.0-5.0); EOSINOPHILS # (AUTO) 0.24 K/uL (0.00-0.70); EOSINOPHILS % (AUTO) 2.7 % (0.0-8.0); LYMPHOCYTES % (AUTO) 22.2 % (21.0-51.0); MONOCYTES # (AUTO) 0.6 K/uL (0.1-1.0); MONOCYTES % (AUTO) 6.5 % (3.0-13.0); NEUTROPHILS # (AUTO) 6.1 K/uL (1.8-7.7); NEUTROPHILS % (AUTO) 67.4 % (40.0-77.0)
[2025-01-26 07:25] LABS: INR 1.08 (0.85-1.15); PROTHROMBIN TIME 11.4 SEC (9.6-11.6)
[2025-01-26 07:27] LABS: PARTIAL THROMBOPLASTIN TIME 36.3 SEC (26.3-35.5)
[2025-01-26 08:00] VITALS: BP 122/70; PULSE 87; RESP 18; TEMP 97.7; O2SAT 98
--- NOTE | 2025-01-26 08:12 | NUR ---
PER ORDER, CONSULTED WITH DONTE FROM GI TO SEE IF THERE WERE ANY FURTHER ACTIONS TO TAKE WITH PATIENT DUE TO AN EPISODE OF HEMOPTYSIS TODAY 01/26/2025 @8240. CHEST XRAY ORDERED.
--- NOTE | 2025-01-26 08:43 | PN ---
GASTROENTEROLOGY PROGRESS NOTE Date of Visit: Jan 26, 2025 Time of Visit: 08:43 Events / Notes: No acute events overnight. Patient had EGD revealing LA Grade B esophagitis. Denies fever, chills, abdominal pain, N/V, hematemesis, bloating, constipation, diarrhea, melena or hematochezia. No overt GI bleeding. Review of Systems: CONSTITUTIONAL: No malaise or change in sensation of wellbeing. ENMT: No rhinorrhea, otorrhea, sinus pain, ear ache. CARDIOVASCULAR: No angina, palpitations, orthopnea or paroxysmal dyspnea. RESPIRATORY: No SOB. GASTROINTESTINAL: No abdominal pain, nausea, vomiting, diarrhea, hematemesis, melena or change in the patient's habitual bowel movements consistency/number. GENITOURINARY: No dysuria, hematuria or change in bladder continence. MUSCULOSKELETAL: No new muscle pain or decrease in muscular strength. No new joint swelling, redness or tenderness. SKIN: No new rash. Physical Exam: GEN: Awake, alert, oriented in person, time and place, and in no acute distress. HEENT: No sinus tenderness. Tympanic membranes were not examined. No rhinorrhea. Oral pharyngeal mucosa is pink, moist and within normal limits. Neck is supple with no cervical lymphadenopathy, thyromegaly or JVD. CHEST: Inspection, palpation and percussion of the chest were unremarkable. Lung auscultation revealed normal breath sounds bilaterally. CARDIAC: PMI is within normal limits. Heart sounds are regular. Normal S1, S2. No gallop or murmur. ABD: Soft, non-tender and not distended. No peritoneal signs on palpation. No organomegaly. Normal bowel sounds. EXT: No cyanosis or clubbing. No edema. SKIN: Intact. No rashes. JOINTS: No evidence of synovitis or acute arthritis. NEURO: Alert and oriented to name, place and person. Cranial nerve examination is unremarkable. No focal motor deficits. Normal speech. Gait is normal. Strength is normal. Vital Signs (last 8hr) Date Time Temp Pulse Resp B/P (MAP) Pulse Ox O2 Delivery O2 Flow Rate FiO2 01/26/25 08:00 97.7 87 18 122/70 96 Room Air 01/26/25 04:18 98.2 81 19 136/72 96 Room Air 01/26/25 00:56 97.9 85 19 142/68 100 Room Air Laboratory: [ ] Laboratory: Test 01/26/25 06:56 01/26/25 05:51 01/26/25 05:33 01/25/25 06:20 Range/Units Prothrombin Time 11.4 9.6-11.6 SEC Prothromb Time International Ratio 1.08 0.85-1.15 Activated Partial Thromboplast Time 36.3 H 26.3-35.5 SEC White Blood Count 9.1 4.8-10.8 K/uL Red Blood Count 2.70 L 4.50-6.20 MIL/uL Hemoglobin 8.6 L 14.0-18.0 g/dL Hematocrit 26.2 L 42-54 % Mean Corpuscular Volume 97.0 79-99 fL Mean Corpuscular Hemoglobin 31.9 27.0-33.0 pg Mean Corpuscular Hemoglobin Concent 32.8 32.0-36.0 g/dL Red Cell Distribution Width 14.4 11.0-15.5 % Platelet Count 186 # 130-400 K/uL Mean Platelet Volume 10.1 7.5-10.5 fL Immature Granulocyte % (Auto) 1.1 H 0-1 % Neutrophils (%) (Auto) 67.4 40.0-77.0 % Lymphocytes (%) (Auto) 22.2 21.0-51.0 % Monocytes (%) (Auto) 6.5 3.0-13.0 % Eosinophils (%) (Auto) 2.7 0.0-8.0 % Basophils (%) (Auto) 0.1 0.0-5.0 % Neutrophils # (Auto) 6.1 1.8-7.7 K/uL Lymphocytes # (Auto) 2.0 1.0-4.8 K/uL Monocytes # (Auto) 0.6 0.1-1.0 K/uL Eosinophils # (Auto) 0.24 0.00-0.70 K/uL Basophils # (Auto) 0.01 0.00-0.20 K/uL Absolute Immature Granulocyte (auto 0.10 0-1 K/uL Nucleated Red Blood Cells 0.0 0.0-0.19 % Sodium Level 138 136-145 mmol/L Potassium Level 3.8 3.5-5.1 mmol/L Chloride Level 106 101-111 mmol/L Carbon Dioxide Level 25 21-32 mmol/L Blood Urea Nitrogen 21 H 7-18 mg/dL Creatinine 1.1 0.5-1.3 mg/dL Glomerular Filtration Rate Calc 85 >90 mL/min Random Glucose 104 70-105 mg/dL Total Calcium 8.1 L 8.5-10.1 mg/dL Whole Blood Glucose 105 70-110 MG/DL Gentamicin Level Peak 5.2 # 4.0-8.0 mcg/mL Test 01/25/25 05:37 01/25/25 05:00 Range/Units Bedside Glucose Comment Protocol Initiated Magnesium Level 1.80 1.80-2.40 mg/dL B-Type Natriuretic Peptide 611 H 0-100 pg/mL Gentamicin Level Trough 0.9 # 0.0-2.0 mcg/mL Current Medications Medications (Trade) Dose Ordered Sig/Asya Route PRN Reason Start Time Stop Time Status Last Admin Dose Admin Acetaminophen (TYLenol 325MG TAB) 650 mg Q6H PRN PO MILD PAIN (1-3) 01/16/25 17:30 02/15/25 17:29 01/25/25 23:02 650 MG Acetaminophen (TYLenol 325MG TAB) 650 mg Q6H PRN PO TEMPERATURE GREATER THAN 101.5 01/05/25 02:30 02/04/25 02:29 01/25/25 17:03 650 MG Apixaban (EliquIS) 5 mg BID PO 01/21/25 21:00 01/23/25 10:57 DC 01/22/25 09:02 5 MG Apixaban (EliquIS) 5 mg BID PO 01/23/25 21:00 02/22/25 20:59 01/25/25 20:33 5 MG Apixaban (EliquIS) 5 mg BID PO 01/25/25 21:00 01/21/25 16:00 DC Apixaban (EliquIS) 10 mg BID PO 01/18/25 21:00 01/18/25 13:52 DC Apixaban (EliquIS) 10 mg BID PO 01/18/25 21:00 01/21/25 16:00 DC 01/21/25 08:45 10 MG Aspirin (Aspirin 81mg Chew Tab) 81 mg DAILY PO 01/05/25 09:00 01/05/25 09:53 DC Aspirin (Aspirin 81mg Ec Tab) 81 mg DAILY PO 01/16/25 09:00 02/15/25 08:59 01/25/25 09:45 81 MG Benzocaine (Cepacol Sore Throat Lozenge) 1 each Q4H PRN MM SORE THROAT 01/05/25 02:30 02/04/25 02:29 Calcium Gluconate 1 gm/Sodium Chloride 100 ml @ 0 mls/hr AD PRN IV Serum Calcium Correction 01/08/25 02:30 02/07/25 02:29 01/08/25 23:32 90 MLS/HR Cefazolin Sodium (Ancef) 2 gm Q12H IVPB 01/07/25 13:30 01/16/25 14:43 DC 01/16/25 01:12 2 GM Cefazolin Sodium (Ancef) 2 gm Q8H IVPB 01/16/25 21:30 01/17/25 13:22 DC 01/17/25 05:07 2 GM Chlordiazepoxide HCl (LIBrium 25 MG CAP) 25 mg Q8H PO 01/05/25 02:30 01/11/25 11:39 DC 01/10/25 22:23 25 MG Chlordiazepoxide HCl (LIBrium 25 MG CAP) 25 mg Q8H PRN PO WITHDRAWAL 01/11/25 12:00 01/12/25 02:29 DC Dexamethasone Sodium Phosphate 20 mg/Sodium Chloride 52 ml @ 100 mls/hr DAILY IV 01/09/25 09:00 02/08/25 08:59 01/25/25 09:44 100 MLS/HR Dexamethasone Sodium Phosphate 40 mg/Sodium Chloride 50 ml @ 100 mls/hr DAILY IV 01/06/25 14:00 01/08/25 12:16 DC 01/08/25 09:34 100 MLS/HR Dextrose (D50w) 50 ml AD PRN IV HYPOGLYCEMIA PROTOCOL 01/05/25 10:00 02/04/25 09:59 Doxycycline Hyclate 250 ml @ 125 mls/hr Q12H IV 01/05/25 10:00 01/06/25 21:05 DC 01/06/25 09:30 125 MLS/HR Doxycycline Hyclate 250 ml @ 125 mls/hr Q12H IV 01/06/25 21:30 01/16/25 14:23 DC 01/16/25 10:13 125 MLS/HR Fluconazole (DiFLUCan 100 mg TAB) 200 mg DAILY PO 01/12/25 09:00 01/25/25 16:12 DC 01/25/25 09:44 200 MG Folic Acid (FOLic ACID 1 MG TABLET) 1 mg DAILY PO 01/07/25 10:30 02/06/25 10:29 01/25/25 09:45 1 MG Furosemide (LASix 20MG VIAL) 20 mg BIDPC IV 01/25/25 10:00 01/26/25 18:01 01/25/25 18:01 20 MG Furosemide (LASix 20MG VIAL) 20 mg Q12H IV 01/07/25 16:00 01/11/25 00:56 DC 01/10/25 19:40 20 MG Gentamicin Sulfate 150 mg/ Sodium Chloride 100 ml @ 100 mls/hr Q12H IV 01/20/25 16:00 01/22/25 03:27 DC 01/21/25 16:00 100 MLS/HR Gentamicin Sulfate 90 mg/ Sodium Chloride 50 ml @ 100 mls/hr Q8H IV 01/22/25 03:30 01/22/25 03:30 DC Gentamicin Sulfate 90 mg/ Sodium Chloride 50 ml @ 100 mls/hr Q8H IV 01/22/25 04:00 01/23/25 20:03 DC 01/23/25 12:54 100 MLS/HR Gentamicin Sulfate/Sodium Chloride 100 ml @ 200 mls/hr BID@0600,1800 IV 01/24/25 06:00 01/25/25 16:12 DC 01/25/25 05:48 200 MLS/HR Gentamicin Sulfate/Sodium Chloride 100 ml @ 200 mls/hr Q12H IV 01/16/25 15:30 01/18/25 03:39 DC 01/17/25 16:00 200 MLS/HR Gentamicin Sulfate/Sodium Chloride 100 ml @ 200 mls/hr Q12H IV 01/18/25 04:00 01/20/25 06:41 DC 01/20/25 05:38 200 MLS/HR Glucagon (Glucagon 1mg Kit) 1 mg AD PRN IM HYPOGLYCEMIA PROTOCOL 01/05/25 10:00 02/04/25 09:59 Heparin Sodium/ Dextrose 250 ml @ 0 mls/hr PROTOCOL IV 01/11/25 14:30 01/18/25 13:28 DC 01/17/25 16:09 13.99 MLS/HR Hydralazine HCl (APRESOLine 20MG INJ) 5 mg Q6H PRN IV For:SBP above 160;DBP above 90 01/05/25 14:30 02/04/25 14:29 01/10/25 22:24 5 MG Hydralazine HCl (APRESOLine 20MG INJ) 10 mg Q6H PRN IV For:SBP above 160;DBP above 90 01/05/25 02:30 01/05/25 09:53 DC Insulin Glargine (LANtus 100 UNITS/ML 10 ML VIAL) 15 units DAILY SQ 01/24/25 09:00 02/23/25 08:59 01/25/25 09:56 15 UNITS Insulin Glargine (LANtus 100 UNITS/ML 10 ML VIAL) 15 units Q12H SQ 01/07/25 21:30 01/09/25 23:18 DC 01/09/25 13:10 15 UNITS Insulin Glargine (LANtus 100 UNITS/ML 10 ML VIAL) 20 units DAILY SQ 01/14/25 09:00 01/23/25 21:37 DC 01/23/25 09:41 20 UNITS Insulin Glargine (LANtus 100 UNITS/ML 10 ML VIAL) 20 units HS SQ 01/06/25 21:00 01/06/25 21:05 DC Insulin Glargine (LANtus 100 UNITS/ML 10 ML VIAL) 20 units HS SQ 01/06/25 21:30 01/07/25 10:24 DC 01/06/25 21:33 20 UNITS Insulin Glargine (LANtus 100 UNITS/ML 10 ML VIAL) 20 units Q12H SQ 01/10/25 09:30 01/10/25 12:58 DC Insulin Glargine (LANtus 100 UNITS/ML 10 ML VIAL) 25 units Q12H SQ 01/10/25 21:30 01/11/25 00:50 DC 01/10/25 22:19 25 UNITS Insulin Glargine (LANtus 100 UNITS/ML 10 ML VIAL) 30 units DAILY SQ 01/12/25 09:00 01/14/25 07:03 DC 01/12/25 11:25 30 UNITS Insulin Glargine (LANtus 100 UNITS/ML 10 ML VIAL) 30 units Q12H SQ 01/11/25 09:30 01/11/25 20:13 DC 01/11/25 10:50 30 UNITS Insulin Human Regular (humuLIN R 100 UNIT/ML 3ML) 5 unit TIDAC SQ 01/14/25 07:30 02/13/25 07:29 01/25/25 17:21 5 UNIT Insulin Human Regular (humuLIN R 100 UNIT/ML 3ML) 8 unit TIDAC SQ 01/11/25 07:30 01/14/25 07:03 DC 01/13/25 19:47 8 UNIT Insulin Human Regular (humuLIN R 100 UNIT/ML 3ML) INSULIN SLIDING SCAL... ACHS SQ 01/18/25 21:00 02/17/25 20:59 01/25/25 17:01 4 UNIT Insulin Human Regular (humuLIN R 100 UNIT/ML 3ML) INSULIN SLIDING SCAL... ACHS SQ 01/05/25 07:30 01/05/25 09:57 DC 01/05/25 07:59 16 UNIT Insulin Human Regular (humuLIN R 100 UNIT/ML 3ML) INSULIN SLIDING SCAL... ACHS SQ 01/05/25 11:30 01/06/25 16:43 DC 01/06/25 11:50 8 UNIT Insulin Human Regular (humuLIN R 100 UNIT/ML 3ML) INSULIN SLIDING SCAL... ACHS SQ 01/06/25 17:00 01/07/25 13:32 DC 01/06/25 17:17 16 UNIT Insulin Human Regular (humuLIN R 100 UNIT/ML 3ML) INSULIN SLIDING SCAL... Q4H SQ 01/11/25 02:00 01/11/25 23:59 DC 01/11/25 20:49 6 UNIT Insulin Human Regular (humuLIN R 100 UNIT/ML 3ML) INSULIN SLIDING SCAL... Q4H SQ 01/11/25 23:59 01/18/25 19:33 DC 01/18/25 16:59 4 UNIT Insulin Human Regular (humuLIN R 100 UNIT/ML 3ML) INSULIN SLIDING SCAL... Q6H6 SQ 01/10/25 18:00 01/11/25 00:50 DC 01/11/25 00:45 10 UNIT Insulin Human Regular 100 unit/ Sodium Chloride 100 ml @ 0 mls/hr AD PRN IV HYPERGLYCEMIA PROTOCOL 01/06/25 19:30 01/10/25 06:00 DC 01/09/25 19:10 16 MLS/HR Iron Sucrose (VenoFER) 300 mg Q24H IVP 01/21/25 15:00 01/21/25 15:29 DC Iron Sucrose 300 mg/Sodium Chloride 250 ml @ 166.667 mls/hr Q24H IV 01/21/25 16:00 01/21/25 17:22 DC Iron Sucrose 300 mg/Sodium Chloride 250 ml @ 166.667 mls/hr Q24H IV 01/21/25 19:30 01/21/25 20:57 DC Iron Sucrose 300 mg/Sodium Chloride 250 ml @ 166.667 mls/hr Q24H IV 01/21/25 21:00 01/23/25 22:29 DC 01/23/25 20:56 166.667 MLS/HR Lactated Ringer's 1,000 ml @ 100 mls/hr Q10H IV 01/05/25 02:30 01/05/25 09:51 DC 01/05/25 02:30 100 MLS/HR Lactated Ringer's 1,000 ml @ 125 mls/hr Q8H IV 01/10/25 01:30 01/10/25 19:40 DC 01/10/25 13:07 125 MLS/HR Lactobacillus Rhamnosus ([facility]) 1 each DAILY PO 01/12/25 09:00 02/11/25 08:59 01/25/25 09:44 1 EACH Lidocaine (Lidoderm Patch 5%) 1 patch DAILY TP 01/25/25 12:00 02/24/25 11:59 01/25/25 12:04 1 PATCH Linezolid 300 ml @ 300 mls/hr Q12H IV 01/25/25 20:30 02/04/25 20:29 01/25/25 20:33 300 MLS/HR Lorazepam (AtiVAN) 1 mg Q4H PRN IVP ALCOHOL WITHDRAWAL PROTOCOL 01/05/25 02:30 01/12/25 02:29 DC Magnesium Sulfate 50 ml @ 0 mls/hr PROTOCOL PRN IV h 01/05/25 02:30 02/04/25 02:29 01/25/25 10:44 25 MLS/HR Melatonin (Melatonin) 10 mg HS PRN PO INSOMNIA 01/21/25 21:30 02/20/25 21:29 01/25/25 23:03 10 MG Morphine Sulfate (morPHINE 2MG SYG) 2 mg Q4H PRN IVP SEVERE PAIN (7-10) 01/05/25 02:30 01/12/25 02:29 DC Multivitamins Therapeutic (Multivitamin Tablet) 1 tab DAILY PO 01/07/25 10:30 02/06/25 10:29 01/25/25 09:45 1 TAB Nafcillin Sodium (Nafcillin 2gm+ NS 100ml) 2 gm Q6H6 IV 01/17/25 18:00 01/25/25 16:12 DC 01/25/25 12:18 2 GM Nicotine (Nicoderm) 21 mg DAILY TD 01/05/25 09:00 02/04/25 08:59 01/25/25 09:49 21 MG Nitroglycerin (Nitrostat) 0.4 mg AD PRN SL CHEST PAIN 01/05/25 02:30 02/04/25 02:29 Nystatin (NYSTatin 386592 UNIT/ML 5ML UDCUP) 100,000 UNITS 1 ML TO E... QID PO 01/18/25 09:00 02/17/25 08:59 01/25/25 20:33 2 ML Ondansetron HCl (zoFRAN 4MG INJ) 4 mg Q6H PRN IV NAUSEA/VOMITING 01/05/25 02:30 02/04/25 02:29 Pantoprazole Sodium (PROTonix 40MG INJ) 40 mg Q24H IVP 01/26/25 04:30 02/25/25 04:29 01/26/25 04:45 40 MG Pantoprazole Sodium (PROTonix 40MG TAB) 40 mg DAILY PO 01/05/25 09:00 01/26/25 04:16 DC 01/25/25 09:45 40 MG Pharmacy Profile Note (Pharmacy Communication) 1 each ONCE MISC 01/16/25 14:30 01/16/25 15:12 DC Pharmacy Profile Note (Pharmacy Communication) 1 each ONCE MISC 01/25/25 07:30 01/25/25 07:26 DC Pharmacy Profile Note (Pharmacy Communication) 1 each ONCE MISC 01/25/25 16:30 01/25/25 16:12 DC Pharmacy Profile Note (Pharmacy Communication) 1 each PROTOCOL PRN MISC ETOH Withdrawal Score changes 01/05/25 02:30 01/12/25 02:29 DC Piperacillin Sod/ Tazobactam Sod (Zosyn 3.375gm+NS 50ml) 3.375 gm Q12H IV 01/05/25 02:30 01/07/25 13:24 DC 01/07/25 02:45 3.375 GM Potassium Phosphate 250 ml @ 42 mls/hr PROTOCOL PRN IV PROTOCOL 01/05/25 10:00 02/04/25 09:59 Potassium Chloride 100 ml @ 100 mls/hr AD PRN IV POTASSIUM PROTOCOL 01/05/25 02:30 01/07/25 10:12 DC Potassium Chloride 100 ml @ 100 mls/hr AD PRN IV POTASSIUM PROTOCOL 01/07/25 10:30 02/06/25 10:29 01/09/25 06:26 100 MLS/HR Potassium Chloride (K-Dur 10meq Sr Tab) 10 meq AD PRN PO POTASSIUM PROTOCOL 01/06/25 09:30 02/04/25 02:29 01/08/25 23:35 10 MEQ Potassium Chloride (K-Dur/Klor-Con 20meq) 10 meq AD PRN PO POTASSIUM PROTOCOL 01/05/25 02:30 01/06/25 09:12 DC 01/05/25 22:15 10 MEQ Potassium Chloride (K-Dur/Klor-Con 20meq) 10 meq AD PRN PO POTASSIUM PROTOCOL 01/07/25 10:30 01/07/25 10:12 DC Potassium Chloride (KCl 10% Elixir 20meq/15ml) 10 meq AD PRN PO POTASSIUM PROTOCOL 01/05/25 02:30 01/07/25 10:12 DC 01/06/25 17:16 10 MEQ Potassium Chloride (KCl 10% Elixir 20meq/15ml) 10 meq AD PRN PO POTASSIUM PROTOCOL 01/07/25 10:30 02/06/25 10:29 01/23/25 15:27 10 MEQ Sodium Bicarbonate (Sodium Bicarbonate) 1,300 mg BID PO 01/11/25 09:00 02/10/25 08:59 01/25/25 20:33 1,300 MG Sodium Chloride 1,000 ml @ 50 mls/hr Q20H IV 01/05/25 10:00 01/10/25 01:33 DC 01/09/25 05:56 50 MLS/HR Sodium Chloride 1,000 ml @ 75 mls/hr [id number] IV 01/11/25 01:00 01/11/25 13:45 DC 01/11/25 01:00 75 MLS/HR Triamcinolone Acetonide (Kenalog/ Aristocort) 1 APPLY TP BID BID TP 01/07/25 11:00 02/06/25 10:59 01/25/25 22:04 1 APPL Vancomycin HCl (Vancomycin Protocol) 1 each AD IV 01/07/25 12:30 01/07/25 12:40 DC Diagnostics / Radiology: [COPY/PASTE HERE IF NO REPORTS PLEASE DELETE SECTION] Assessment: GERD esophagitis Decompensated cirrhosis Thrombocytopenia Abnormal troponin Alcohol abuse Plan: Follow cardio recommendations Will obtain liver serologies to r/o other liver pathology Please contact our service if the patient has significant bleeding such as hematemesis and we can proceed sooner with the EGD Thanks you for allowing us to participate in the care of this patient! HILDA MUIR [employer] PROJECT MANAGER Jan 26, 2025 08:43
--- NOTE | 2025-01-26 08:54 | PN ---
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 No evidence of embolization. The ____ appears to be stabilizing and he has been hemodynamically stable. The organism is Staph aureus and he has not developed any complications. We will discuss with Dr. Hilario. to follow which could be medical therapy versus surgical removal of the valve and valve replacement. He seems to be hemodynamically stable and controlled at this point. TID: [id number] RECEIPT: [id number]
--- NOTE | 2025-01-26 09:55 | PN ---
FOLLOWUP PROGRESS NOTE SUBJECTIVE: A 44-year-old male who has had a prolonged hospital course. The patient was initially admitted with endocarditis. He remains on the antibiotics. The patient has had acute renal failure in the hospital and creatinine has somewhat improved. The patient did have episode of hemoptysis last p.m. The patient is being seen as a followup visit for all the above. REVIEW OF SYSTEMS: GENERAL: The patient is feeling weak and tired. HEENT: No change in vision. No change in hearing. CARDIOVASCULAR: There is no current chest pain or palpitations. PULMONARY: As described above. GASTROINTESTINAL: He is tolerating a diet. MUSCULOSKELETAL: Complains of weakness. PHYSICAL EXAMINATION:. VITAL SIGNS: Blood pressure 122/70, pulse 80s. GENERAL: He is a chronically ill male, much older than appearing. HEENT: Head is atraumatic. Pupils are equal, roving to light. Oropharynx is without exudate. Nares clear. NECK: There is no JVP. There is no thyromegaly, no mass. CARDIOVASCULAR: Regular. There is no S3, S4 gallop. LUNGS: Coarse with equal thoracic movement. ABDOMEN: Soft, nondistended, nontender. EXTREMITIES: There is no clubbing, no cyanosis. NEUROLOGIC: He is awake. He is alert. LABORATORY DATA: Hemoglobin 8.6, hematocrit 26. Sodium 138, BUN 21, creatinine is 1.1. IMPRESSION: * Acute on chronic renal failure. * Endocarditis. * Diabetes mellitus. * Hypertension. * History of hemoptysis. PLAN: The patient's renal function has stabilized. The patient remains on the IV antibiotics. The patient has been set up for outpatient IV antibiotics. The patient to be evaluated by Pulmonary Service. Once the patient is discharged, he can follow up in the [facility]al [facility]. TID: [id number] RECEIPT: [id number]
--- NOTE | 2025-01-26 10:12 | PN ---
[facility] PROGRESS NOTE Date Patient Seen: Jan 26, 2025 Time of Visit: 10:06 Interval History: This 44-year-old Latin-[place]or[place] male with a history of morbid obesity, liver cirrhosis, polysubstance abuse (ETOH and cocaine), suspected sleep apnea, h ypertension, hyperlipidemia, and coronary artery disease status post remote stenting of the proximal LAD 12/19/2015 has had a prolonged hospitalization thus far was admitted with sepsis, MSSA, and was found to have a 1.8 x 1.2 cm vegetation involving the aortic valve by DRAKE 01/11/2025 as well as a left atrial appendage thrombus. He has been maintained on antibiotics and Eliquis an ticoagulation. The patient was noted to have a small left calf hematoma which has been stable and Eliquis was resumed 01/23/2025. A limited follow up 2D echocardiogram 01/23/2025 demonstrated LVEF is 60-65% with normal LV segmental wall motion, Aortic valve non coronary cusp leaflet vegetation currently measures 0.8cm x 1.15cm with a traced area of 0.9cm (relatively unchanged) and no pericardial effusion. A left lower extremity venous doppler exam on 01/23/2025 demonstrated to evidence of DVT. A right upper extremity venous doppler exam earlier today demonstrated a noncompressible thrombus is seen in the right cephalic vein consistent with superficial thrombophlebitis. The right PICC line was discontinued. He continues on IV antibiotic therapy and will require 6 weeks total of antibiotic therapy. A chest x-ray done 01/24/2025 demonstrated cardiomegaly and pulmonary vascular congestion changes and has been initiated on a short course of IV lasix x 4 doses. This morning, he reports he was laying prone and coughed up sputum reported as "large" clot. There was not hematemesis and no other evidence of bleeding. Eliquis held this AM. Physical Examination: GENERAL: No acute distress. HEAD: Normal with no signs of head trauma. EYES: PERRLA, EOMI, conjunctiva and sclera normal. NECK: Supple without JVD. There is no tenderness, lymphadenopathy, or masses. No thyromegaly. Normal carotid upstrokes without bruits. LUNGS: Diminished at the bases only but otherwise clear HEART: Regular rate. Normal S1 and S2. No obvious murmurs, gallops, or rubs noted. No murmur audible. VASC: Peripheral pulses +2 bilaterally. EXT: Ecchymosis to the right upper arm noted. There is a left calf hematoma and increased girth of the left calf compared to the right calf. Plus two pedal edema. There are scattered petechial and purpuric patches. NEURO: Awake, alert, and oriented. No focal neurological deficits noted. Laboratory: Hematology Labs: Test 01/26/25 05:51 Range/Units White Blood Count 9.1 4.8-10.8 K/uL Red Blood Count 2.70 L 4.50-6.20 MIL/uL Hemoglobin 8.6 L 14.0-18.0 g/dL Hematocrit 26.2 L 42-54 % Mean Corpuscular Volume 97.0 79-99 fL Mean Corpuscular Hemoglobin 31.9 27.0-33.0 pg Mean Corpuscular Hemoglobin Concent 32.8 32.0-36.0 g/dL Red Cell Distribution Width 14.4 11.0-15.5 % Platelet Count 186 # 130-400 K/uL Mean Platelet Volume 10.1 7.5-10.5 fL Immature Granulocyte % (Auto) 1.1 H 0-1 % Neutrophils (%) (Auto) 67.4 40.0-77.0 % Lymphocytes (%) (Auto) 22.2 21.0-51.0 % Monocytes (%) (Auto) 6.5 3.0-13.0 % Eosinophils (%) (Auto) 2.7 0.0-8.0 % Basophils (%) (Auto) 0.1 0.0-5.0 % Neutrophils # (Auto) 6.1 1.8-7.7 K/uL Lymphocytes # (Auto) 2.0 1.0-4.8 K/uL Monocytes # (Auto) 0.6 0.1-1.0 K/uL Eosinophils # (Auto) 0.24 0.00-0.70 K/uL Basophils # (Auto) 0.01 0.00-0.20 K/uL Absolute Immature Granulocyte (auto 0.10 0-1 K/uL Nucleated Red Blood Cells 0.0 0.0-0.19 % Chemistry Labs: Test 01/26/25 05:51 01/26/25 05:33 01/25/25 05:37 01/25/25 05:00 Range/Units Sodium Level 138 136-145 mmol/L Potassium Level 3.8 3.5-5.1 mmol/L Chloride Level 106 101-111 mmol/L Carbon Dioxide Level 25 21-32 mmol/L Blood Urea Nitrogen 21 H 7-18 mg/dL Creatinine 1.1 0.5-1.3 mg/dL Glomerular Filtration Rate Calc 85 >90 mL/min Random Glucose 104 70-105 mg/dL Total Calcium 8.1 L 8.5-10.1 mg/dL Whole Blood Glucose 105 70-110 MG/DL Bedside Glucose Comment Protocol Initiated Magnesium Level 1.80 1.80-2.40 mg/dL B-Type Natriuretic Peptide 611 H 0-100 pg/mL Coagulation Labs: Test 01/26/25 06:56 Range/Units Prothrombin Time 11.4 9.6-11.6 SEC Prothromb Time International Ratio 1.08 0.85-1.15 Activated Partial Thromboplast Time 36.3 H 26.3-35.5 SEC Assessment: -Severe sepsis -Bacteremia (MSSA) -UTI (Klebsiella) -Strep A positive -Acute cocaine intoxication -Acute cholecystitis -Acute renal failure in the setting of severe sepsis, resolving -Fidelina esophagitis identified on EGD done 01/11/2025 -Bacterial endocarditis affecting the aortic valve (1.81x1.17 cm mass attached to the noncoronary cusp leaflet) identified on DRAKE done 01/11/2025 -Left atrial appendage thrombus identified on DRAKE done 01/11/2025 -Normal LV systolic function (LVEF: 60-65% by echo done 01/11/2025) -Elevated troponin (type II NC) -ITP -Liver cirrhosis -Esophagitis by EGD 01/11/2025 -CAD s/p PCI with IA Integrilin, aspiration thrombectomy, PTCA, and KISHORE placement (Promus 4.0x16 mm) in the proximal LAD done on 12/19/2015 -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 of the RCA cursing between the aorta and PA trunk) identified on [facility] done 12/19/2015 -HTN -HLP -Polysubstance abuse (ETOH and cocaine) -Suspected MARCOS/OHS -Morbid obesity -Noncompliance Plan: Bacterial endocarditis affecting the aortic valve (1.81x1.17 cm mass attached to the noncoronary cusp leaflet) identified on DRAKE done 01/11/2025 -Limited follow up 2D echocardiogram 01/23/2025 demonstrated vegetation measuring 0.8cm x 1.15cm with a traced area of 0.9cm (relatively unchanged) -Positive blood cultures collected 01/05/2025, 01/07/2025, 01/09/2025, 01/11/2025 -Blood cultures collected and 01/19/2025-negative x5 days -The patient will continue on IV antibiotic therapy which has been tailored by ID, with plans to continue inpatient for IV antibiotic therapy for 6 weeks -Plans are for IV antibiotic therapy as outpatient through [facility]ound care center and ER bid dosing Left atrial appendage thrombus identified on DRAKE done 01/11/2025 -The patient reported coughing up a "large" blood clot this AM, no other evidence of active bleeding -Resume Eliquis 5 mg b.i.d. if no further bleeding. -Will discontinue aspirin to reduce bleeding risk Elevated troponin -HS troponin I peak: 195 -Withdraw aspirin to allow continued Eliquis anticoagulation to reduce bleeding risk. He is not a candidate for statin therapy due to his liver dysfunction. Acute diastolic heart failure on admission: -the patient's chest x-ray 01/24/2025 demonstrated cardiomegaly and pulmonary vascular congestion likely related to volume infusion from antibiotic therapy -obtain a BNP and provide a short course of Lasix 20 mg IV q.12 hours for 48 hours and trend renal function -A follow up CXR has been ordered for today Left thigh swelling, without evidence of DVT -A left lower extremity venous doppler exam on 01/23/2025 demonstrated to evidence of DVT. -Superficial (right cephalic vein) thrombus: -continue current therapy unchanged Acute renal failure, resolving: -continue to monitor renal function PHYSICIAN ATTESTATION OF PHYSICIAN ASSISTANT SPA DIRECTOR DOCUMENTATION: I attest that I was physically present for the conti portions of the service and evaluated the patient with the Physician Wood Model Builder, and I reviewed and discussed the case with the Physician Wood Model Builder and made modifications to the Physician Wood Model Builder's findings and plans of care as documented above TAMERA REYNA Jan 26, 2025 10:12 KARMA LUNDBERG MD Jan 27, 2025 09:37
[2025-01-26 12:00] VITALS: BP 122/76; PULSE 89; RESP 18; TEMP 99
--- NOTE | 2025-01-26 12:19 | HMCIMG ---
CHEST 1VW HISTORY: Hemoptysis COMPARISON: 01/24/2025 FINDINGS: A frontal projection of the chest was obtained. Mild bilateral pulmonary infiltrates are seen may be related to mild pulmonary vascular congestion with possible superimposed pneumonitis. The heart is borderline enlarged. Degenerative changes are seen. No evidence of aortic calcification is seen. IMPRESSION: 1. Mild bilateral pulmonary infiltrates are seen may be related to mild pulmonary vascular congestion with possible superimposed pneumonitis.
--- NOTE | 2025-01-26 12:26 | PN ---
INFECTIOUS DISEASE PROGRESS NOTE Date of Service: Jan 26, 2025 SUBJECTIVE: This is a 44-year-old male patient who was admitted for chief complaint of weakness and status post fall at home. A Urine culture collected on admission came back positive for Klebsiella pneumoniae and the blood cultures results came back positive for Methicillin sensitive Staphylococcus aureus 2 of 2 sets and the reason for this consult. A 2D echo done on admission showed Aortic valve endocarditis and DRAKE done on 01/11/2025 with findings of aortic valve vegetation and Left atrial appendage clot. Patient was seen and examined at bedside in room 412. Patient is awake, alert and oriented x 3. Patient is sitting up to the bedside chair. Per report patient had an hemoptysis episode earlier this morning. Hemoglobin is 8.6 and a platelet level of 186. Patient is currently on Eliquis and is pending a cashier greeter evaluation. Patient is afebrile, temperature is 97.7 and a WBC of 9.1. Case management continues to arrange for outpatient IV antibiotics with Zyvox IV every 12 hours for 6 weeks and platelets level monitoring while on the Zyvox. PHYSICAL EXAM EYES: Anicteric. Pupils equal and reactive. HENT: No oral thrush seen, moist Oral mucosa. NECK: Supple, no JVD or thyromegaly. LUNGS: Good air entry. No rales, no rhonchi. CARDIOVASCULAR: S1, S2 regular. No murmur heard. ABDOMEN: Obese but Soft. CENTRAL NERVOUS SYSTEM: Awake, alert, oriented x 3. SKIN: No rashes, no swelling. LYMPHATICS: No peripheral lymphadenopathy MUSCULOSKELETAL: No joint swelling, erythema or tenderness. Weakness. EXTREMITIES: No cyanosis or clubbing. Edematous, resolving. BACK: No deformity, no pressure ulcer. GENITOURINARY: No dysuria or hematuria. Vital Sign (Last 12 Hours) 01/26/25 01/26/25 01/26/25 00:56 04:18 08:00 Temp 97.9 98.2 97.7 Pulse 85 81 87 Resp 19 19 18 B/P (MAP) 142/68 136/72 122/70 Pulse Ox 100 96 96 O2 Delivery Room Air Room Air Room Air Intake & Output (last 24hrs) 01/25/25 01/25/25 01/26/25 15:00 23:00 07:00 Intake Total 460 ml 240 ml Balance 460 ml 240 ml LABS: Laboratory: Test 01/26/25 10:57 01/26/25 06:56 01/26/25 05:51 01/25/25 06:20 Range/Units Whole Blood Glucose 132 H 70-110 MG/DL Prothrombin Time 11.4 9.6-11.6 SEC Prothromb Time International Ratio 1.08 0.85-1.15 Activated Partial Thromboplast Time 36.3 H 26.3-35.5 SEC White Blood Count 9.1 4.8-10.8 K/uL Red Blood Count 2.70 L 4.50-6.20 MIL/uL Hemoglobin 8.6 L 14.0-18.0 g/dL Hematocrit 26.2 L 42-54 % Mean Corpuscular Volume 97.0 79-99 fL Mean Corpuscular Hemoglobin 31.9 27.0-33.0 pg Mean Corpuscular Hemoglobin Concent 32.8 32.0-36.0 g/dL Red Cell Distribution Width 14.4 11.0-15.5 % Platelet Count 186 # 130-400 K/uL Mean Platelet Volume 10.1 7.5-10.5 fL Immature Granulocyte % (Auto) 1.1 H 0-1 % Neutrophils (%) (Auto) 67.4 40.0-77.0 % Lymphocytes (%) (Auto) 22.2 21.0-51.0 % Monocytes (%) (Auto) 6.5 3.0-13.0 % Eosinophils (%) (Auto) 2.7 0.0-8.0 % Basophils (%) (Auto) 0.1 0.0-5.0 % Neutrophils # (Auto) 6.1 1.8-7.7 K/uL Lymphocytes # (Auto) 2.0 1.0-4.8 K/uL Monocytes # (Auto) 0.6 0.1-1.0 K/uL Eosinophils # (Auto) 0.24 0.00-0.70 K/uL Basophils # (Auto) 0.01 0.00-0.20 K/uL Absolute Immature Granulocyte (auto 0.10 0-1 K/uL Nucleated Red Blood Cells 0.0 0.0-0.19 % Sodium Level 138 136-145 mmol/L Potassium Level 3.8 3.5-5.1 mmol/L Chloride Level 106 101-111 mmol/L Carbon Dioxide Level 25 21-32 mmol/L Blood Urea Nitrogen 21 H 7-18 mg/dL Creatinine 1.1 0.5-1.3 mg/dL Glomerular Filtration Rate Calc 85 >90 mL/min Random Glucose 104 70-105 mg/dL Total Calcium 8.1 L 8.5-10.1 mg/dL Gentamicin Level Peak 5.2 # 4.0-8.0 mcg/mL Test 01/25/25 05:37 01/25/25 05:00 Range/Units Bedside Glucose Comment Protocol Initiated Magnesium Level 1.80 1.80-2.40 mg/dL B-Type Natriuretic Peptide 611 H 0-100 pg/mL Gentamicin Level Trough 0.9 # 0.0-2.0 mcg/mL ASSESSMENT: Methicillin-susceptible Staphylococcus aureus bacteremia status post DRAKE on 01/11/2025 with findings of aortic valve vegetation and Left atrial appendage clot. Aortic valve endocarditis on 2D echo. Urinary tract infection with Klebsiella pneumoniae. Chronic scalp folliculitis. Leukocytosis. Thrombocytopenia requiring platelet transfusion, resolving. Acute on chronic renal failure, resolving. Substance abuse, Cocaine and ETOH. Streptococcus viral infection. Uncontrolled diabetes mellitus. Debility. Hemoptysis. PLAN: Case management arranging for outpatient IV antibiotics with Zyvox IV every 12 hours for 6 weeks. Patient platelets level will need to be monitored. Continue Nafcillin. Continue Gentamicin per pharmacy renal dosing. Continue fluconazole p.o.. Continue on Eliquis. Avoid nephrotoxic medications. Continue GI prophylaxis. Programming Instructor following patient. Continue monitoring glucose levels. This case was reviewed and discussed with my supervising physician and the above assessment and plan was formulated and agreed upon. ATTESTATION BY PHYSICIAN I have seen and examined the patient. I reviewed the documentation, medical decision making, and treatment plan as noted by the mid-level provider above. I agree with the findings and plan of care. JANUARY CARLSON MD, MIRTA L MINING CONSULTANT Jan 26, 2025 12:26
[2025-01-26 16:00] VITALS: BP 123/66; PULSE 80; RESP 18; TEMP 97.7
[2025-01-26] MEDS ORDERED: IOHEXOL 350 MG/ML 100ML INFUS..BTL IV ONE (16:37)
--- NOTE | 2025-01-26 17:20 | CONS ---
[facility] CONSULTATION NOTE Date Patient Seen: Jan 26, 2025 Time of Visit: 17:14 Supervising Physician: JONATHAN SORENSON MD Reason for Consultation: HEMOPTYSIS Primary Care Physician: Associate Professor Of Pathology PCP Outpatient Specialists: [ ] Inpatient Consults:Critical care, Hematology, cardiology and nephrology PROBLEM LIST: Endocarditis POA DRAKE on 01/11/25 with 1.1 cm aortic valve vegetation and Left Atrial Appendage thrombus Severe sepsis and shock POA, resolving Fidelina Esophagitis per EGD results 01/11/25 Urinary tract infection, POA Klebsiella pneumoniae cultured in the urine Staph aureus bacteremia POA Strep pharyngitis, POA Acute kidney injury, POA improving Electrolyte derangement POA ( hypokalemia, Hyponatremia) 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 Uncontrolled Diabetes mellitius type2, POA HgA1C 8.5 NTEMI Type II NJ POA PolySubstance abuse, POA, (cocaine/Marijuana) Alcohol dependence, POA Tobacco dependence, POA Acute cholecystitis on HIDA scan 01/07/25 POA Hepatomegaly with hepato steatosis MELD score on admission of 31 Morbid obesity Noncompliance behavior PLAN SUMMARY: Monitor for any signs of bleeding We will proceed with a CTA of the chest at this time. Monitor hemoglobin levels, there are no signs of active bleeding at this time given his left atrial appendage would advised to resume his Eliquis and monitor for any further hemoptysis, quantify it in a cup. We appreciate this consultation we will continue to follow along closely Supplemental oxygen as needed Wean off as tolerated Duo nebs as needed Continue BiPAP nightly and p.r.n. IS while awake Continue cefazolin Continue doxycycline Continue fluconazole Patient will need a pulmonary f/u as an outpatient for evaluation of suspected sleep apnea HPI: This is a 44-year-old male patient who has past medical history that is significant for hypertension, hyperlipidemia, diabetes mellitus, alcohol, tobacco and illicit drug use with preference for cocaine and marijuana, and morbid obesity. Per the patient's report, he was doing well until he has been feeling progressively generally weak and unwell for the past week. The patient decided to come in to the emergency department for further evaluation and management of his condition after been persuaded by family members who required to provide assistance for mobility due to his profuse weakness. The patient decided to come into the emergency department for further evaluation and management of his condition. Upon initial presentation, the initial vital signs showed changes consistent with severe sepsis and shock. Laboratory data showed elevated WBC count of 16.5 chemistry panel showed profound hyponatremia, hypokalemia and hypochloremia. Renal parameters were significantly elevated with a BUN of 77, creatinine of 3.9 and a GFR of 19. Patient had a random glucose of 248. Patient also had elevated troponin with a peak of 195. Liver parameters showed a elevated bilirubin of 5.7, AST 72 and ALT of 27 with a alk- phos of 78. PT of 14.1 with a INR 1.29. Urinalysis showed strong suspicion of a urinary tract infection. Toxicology screen showed positive for cocaine. Serology screen showed a group a strep positive and negative for influenza type A, B and SARS-CoV-2. Blood and urine sample was sent for microbiology studies. Chest x-ray showed no acute changes. CT abdomen and pelvis showed presence of gallstones and suspicion for acute pyelonephritis. The patient was admitted for further inpatient evaluation and management of his condition. Because of his severe sepsis, critical care team was consulted for further close monitoring and management. The patient was followed closely and eventually our services signed off however we have been reconsulted as he had one episode of hemoptysis today when he was lying flat. The patient was been hospitalized for22 days. He has been undergoing workup for endocarditis. He has been receiving IV antibiotic therapy, of note he was on Eliquis which was resumed on 01/23/2025 for which he was on for vegetation in the aortic valve as well as left atrial appendage thrombus. Given this reported a large clot Eliquis was held this a.m.. He states it was coughed up and not vomited. Blood pressures are stable. Hemoglobin at this time is at 8.6 which trended upward from 7.9 yesterday. D-dimer elevated, we will proceed with a CTA of the chest at this time. Monitor hemoglobin levels, there are no signs of active bleeding at this time given his left atrial appendage would advised to resume his Eliquis and monitor for any further hemoptysis. Along with monitoring his hemoglobin level. We appreciate this consultation we will continue to follow along closely PAST MEDICAL HX: see above PAST SURGICAL HX: noncontributory SOCIAL HISTORY: No tobacco, ETOH, or illicit drug use Coded Allergies: No Known Drug Allergies (Unverified Allergy, Unknown, 12/18/15) REVIEW OF SYSTEMS: 12 point ROS reviewed with patient. Pertinent positives mentioned above. Otherwise negative. PHYSICAL EXAM: GENERAL: alert, weak, awake oriented x 3 HEENT: EOMI, Sclera non icteric, moist mucosa NECK: Supple, no JVD, trachea midline LUNGS: Clear breath sounds bilaterally. No wheezes HEART: Regular rate and rhythm. Normal S1 and S2, without murmurs ABD: Abdomen soft, nontender. Bowel sounds present EXT: No clubbing cyanosis or edema NEURO: Alert and oriented to person, follows commands Vital Signs (last 8hr) Date Time Temp Pulse Resp B/P (MAP) Pulse Ox O2 Delivery O2 Flow Rate FiO2 01/26/25 16:00 97.7 80 18 123/66 98 Room Air 01/26/25 12:00 99.0 89 18 122/76 98 Room Air LABS: Hematology Labs: Test 01/26/25 05:51 Range/Units White Blood Count 9.1 4.8-10.8 K/uL Red Blood Count 2.70 L 4.50-6.20 MIL/uL Hemoglobin 8.6 L 14.0-18.0 g/dL Hematocrit 26.2 L 42-54 % Mean Corpuscular Volume 97.0 79-99 fL Mean Corpuscular Hemoglobin 31.9 27.0-33.0 pg Mean Corpuscular Hemoglobin Concent 32.8 32.0-36.0 g/dL Red Cell Distribution Width 14.4 11.0-15.5 % Platelet Count 186 # 130-400 K/uL Mean Platelet Volume 10.1 7.5-10.5 fL Immature Granulocyte % (Auto) 1.1 H 0-1 % Neutrophils (%) (Auto) 67.4 40.0-77.0 % Lymphocytes (%) (Auto) 22.2 21.0-51.0 % Monocytes (%) (Auto) 6.5 3.0-13.0 % Eosinophils (%) (Auto) 2.7 0.0-8.0 % Basophils (%) (Auto) 0.1 0.0-5.0 % Neutrophils # (Auto) 6.1 1.8-7.7 K/uL Lymphocytes # (Auto) 2.0 1.0-4.8 K/uL Monocytes # (Auto) 0.6 0.1-1.0 K/uL Eosinophils # (Auto) 0.24 0.00-0.70 K/uL Basophils # (Auto) 0.01 0.00-0.20 K/uL Absolute Immature Granulocyte (auto 0.10 0-1 K/uL Nucleated Red Blood Cells 0.0 0.0-0.19 % Chemistry Labs: Test 01/26/25 15:54 01/26/25 05:51 01/25/25 05:37 01/25/25 05:00 Range/Units Whole Blood Glucose 159 H 70-110 MG/DL Sodium Level 138 136-145 mmol/L Potassium Level 3.8 3.5-5.1 mmol/L Chloride Level 106 101-111 mmol/L Carbon Dioxide Level 25 21-32 mmol/L Blood Urea Nitrogen 21 H 7-18 mg/dL Creatinine 1.1 0.5-1.3 mg/dL Glomerular Filtration Rate Calc 85 >90 mL/min Random Glucose 104 70-105 mg/dL Total Calcium 8.1 L 8.5-10.1 mg/dL Bedside Glucose Comment Protocol Initiated Magnesium Level 1.80 1.80-2.40 mg/dL B-Type Natriuretic Peptide 611 H 0-100 pg/mL Coagulation Labs: Test 01/26/25 15:05 01/26/25 06:56 Range/Units D-Dimer Quantitative (PE/DVT) 1694 *H 0-500 ng/mL Prothrombin Time 11.4 9.6-11.6 SEC Prothromb Time International Ratio 1.08 0.85-1.15 Activated Partial Thromboplast Time 36.3 H 26.3-35.5 SEC DIAGNOSTICS / RADIOLOGY RESULTS: [ ] PLAN NEURO: Minimize central acting medications as possible. Maintain fall precautions, adequate lighting during the day PULMONARY: Supplemental 02 as needed. Maintain aspiration precautions at all times CARDIOVASCULAR: Follow hemodynamics. Vital signs per facility protocol GI & NUTRITION: Continue with nutritional support. Continue stool softeners and laxatives as needed. KIDNEYS & ELECTROLYTES: Strict monitoring of intake, output and overall fluid balance. Avoid nephrotoxic medications to the extent possible. Medications to be dosed according to renal function. Monitor electrolytes and replace as needed ENDOCRINE: Maintain blood glucose between 100-180 at all times. Hypoglycemia protocol in place INFECTIOUS DISEASE: Trend temperature, WBC and procalcitonin level Follow cultures, deescalate antibiotics as soon as possible. Panculture if new onset fever ONCOLOGY/HEMATOLOGY/COAGULATION: Monitor for s/s of bleeding Monitor hemoglobin, coagulation studies as needed SKIN: Pressure ulcer prevention per facility protocol Specialty mattress ORTHO/REHAB: Continue PT/OT Prophylaxis: Continue GI and DVT prophylaxis Code Status: Full Resuscitation Dispo: As per attending Total time spent greater than 35 minutes PRATEEK VALENZUELA Jan 26, 2025 17:20
[2025-01-26 17:34] LABS: HEMATOCRIT 27.7 % (42-54)
[2025-01-26 20:00] VITALS: BP 148/76; PULSE 93; RESP 19; TEMP 98
--- NOTE | 2025-01-26 20:14 | PN ---
endocrinology progress note dos: 01/26/25 subjective: he is off insulin drip and on insulin injections. glucose control is improving. hba1c 8.5% Past Medical History Patient History: Patient reports no known family medical history. ADDITIONAL PAST MEDICAL HISTORY: [Denies any past medical history, fatty liver by CT on 01/05/2025] SOCIAL HISTORY: [Patient smokes one pack of cigarettes daily but only5 times a week. Patient [id number] beers daily but also only5 times a week. Patient reports occasional use of both marijuana and cocaine. Patient denies any other illegal drug use. 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 Patient has poor access to health care due to lack of health insurance. Patient is typically independent of all his ADLs. Patient denies difficulty pain is bills. Patient lives with his daughter Hannah Jin] SURGICAL HISTORY: [Heart stent] Allergies: Coded Allergies: No Known Drug Allergies (Unverified Allergy, Unknown, 12/18/15) Scheduled Amlodipine Besylate (Amlodipine Besylate), 5 MG PO DAILY Atorvastatin Calcium (Lipitor), 40 MG PO HS Hydrochlorothiazide (Hydrochlorothiazide), 25 MG PO DAILY Lisinopril (Lisinopril), 20 MG PO DAILY Losartan Potassium (Losartan Potassium), 50 MG PO DAILY Methylprednisolone (Medrol), 4 MG PO AD Tamsulosin HCl (Flomax), 0.4 MG PO DAILY [Aspirin], 325 MG PO DAILY [Prasugrel Hcl], 10 MG PO DAILY Scheduled PRN Ketorolac Tromethamine (Ketorolac Tromethamine), 10 MG PO TID PRN for PAIN ASSESSMENT: DKA-resolved he is off insulin drip. hba1c 8.5% bicarb New onset Uncontrolled Diabetes mellitus type2, POA hyperglycemia is improving. Severe sepsis, POA Urinary tract infection, POA Endocarditis and staph bacteremia Strep pharyngitis, POA Leukocytosis, POA Hyperlactatemia, POA Acute kidney injury, POA Thrombocytopenia, POA Elevated troponin, POA Substance abuse, POA, cocaine Alcohol dependence, POA Tobacco dependence, POA PLAN: continue lantus 15 units daily continue regular insulin 5 units qac before meals continue medium dose ssi keep glucose less than 180 mg/dl monitor glucose [id number]. patient will need insulin at discharge. Vitals/Labs Vital Signs Date Time Temp Pulse Resp B/P (MAP) Pulse Ox O2 Delivery O2 Flow Rate FiO2 01/26/25 16:00 97.7 80 18 123/66 98 Room Air 01/26/25 08:00 0 21 Laboratory Tests 01/26/25 05:51 01/26/25 15:05 Medications Current Medications Sodium Chloride 1,000 ml @ 125 mls/hr ONCE ONCE IV Last administered on 01/05/25at 00:13; Start 01/04/25 at 23:00; Stop 01/05/25 at 06:59; Status DC Aspirin 81 mg ONCE ONCE PO Last administered on 01/05/25at 00:14; Start 01/04/25 at 23:00; Stop 01/04/25 at 23:01; Status DC Ondansetron HCl 4 mg ONCE ONCE IVP Last administered on 01/05/25at 00:13; Start 01/04/25 at 23:00; Stop 01/04/25 at 23:01; Status DC Potassium Chloride 100 ml @ 50 mls/hr ONCE ONCE IV Last administered on 01/05/25at 00:13; Start 01/05/25 at 00:00; Stop 01/05/25 at 01:59; Status DC Potassium Chloride 100 ml @ 50 mls/hr ONCE ONCE IV Last administered on 01/05/25at 03:12; Start 01/05/25 at 00:00; Stop 01/05/25 at 01:59; Status DC Thiamine HCl 100 mg ONCE ONCE IVP Last administered on 01/05/25at 01:01; Start 01/05/25 at 00:00; Stop 01/05/25 at 00:01; Status DC Acetaminophen 500 mg STK-MED ONCE .ROUTE; Start 01/05/25 at 00:28; Stop 01/05/25 at 00:28; Status DC Cefepime HCl 1 gm ONCE ONCE IVPB Last administered on 01/05/25at 01:01; Start 01/05/25 at 01:00; Stop 01/05/25 at 01:02; Status DC Vancomycin HCl 750 mg ONCE ONCE IVPB Last administered on 01/05/25at 02:12; Start 01/05/25 at 01:00; Stop 01/05/25 at 01:02; Status DC Sodium Chloride 250 ml ONCE ONCE IVPB Last administered on 01/05/25at 02:12; Start 01/05/25 at 01:00; Stop 01/05/25 at 01:02; Status DC Acetaminophen 1,000 mg ONCE ONCE PO Last administered on 01/05/25at 00:30; Start 01/05/25 at 01:00; Stop 01/05/25 at 01:02; Status DC Aspirin 81 mg DAILY PO; Start 01/05/25 at 09:00; Stop 01/05/25 at 09:53; Status DC Nitroglycerin 0.4 mg AD PRN SL; Start 01/05/25 at 02:30; Stop 02/04/25 at 02:29 Aspirin 162 mg ONCE ONCE PO Last administered on 01/05/25at 03:06; Start 01/05/25 at 02:30; Stop 01/05/25 at 02:31; Status DC Insulin Human Regular INSULIN SLIDING SCAL... ACHS SQ Last administered on 01/05/25at 07:59; Start 01/05/25 at 07:30; Stop 01/05/25 at 09:57; Status DC Lactated Ringer's 3,429 ml @ 1,143 mls/hr ONCE ONCE IV Last administered on 01/05/25at 03:12; Start 01/05/25 at 02:30; Stop 01/05/25 at 05:29; Status DC Piperacillin Sod/ Tazobactam Sod 3.375 gm Q12H IV Last administered on 01/07/25at 02:45; Start 01/05/25 at 02:30; Stop 01/07/25 at 13:24; Status DC Potassium Chloride 100 ml @ 100 mls/hr AD PRN IV; Start 01/05/25 at 02:30; Stop 01/07/25 at 10:12; Status DC Potassium Chloride 10 meq AD PRN PO Last administered on 01/06/25at 17:16; Start 01/05/25 at 02:30; Stop 01/07/25 at 10:12; Status DC Potassium Chloride 10 meq AD PRN PO Last administered on 01/05/25at 22:15; Start 01/05/25 at 02:30; Stop 01/06/25 at 09:12; Status DC Acetaminophen 650 mg Q6H PRN PO Last administered on 01/25/25at 17:03; Start 01/05/25 at 02:30; Stop 02/04/25 at 02:29 Pantoprazole Sodium 40 mg DAILY PO Last administered on 01/25/25at 09:45; Start 01/05/25 at 09:00; Stop 01/26/25 at 04:16; Status DC Ondansetron HCl 4 mg Q6H PRN IV; Start 01/05/25 at 02:30; Stop 02/04/25 at 02:29 Morphine Sulfate 2 mg Q4H PRN IVP; Start 01/05/25 at 02:30; Stop 01/12/25 at 02:29; Status DC Hydralazine HCl 10 mg Q6H PRN IV; Start 01/05/25 at 02:30; Stop 01/05/25 at 09:53; Status DC Benzocaine 1 each Q4H PRN MM; Start 01/05/25 at 02:30; Stop 02/04/25 at 02:29 Magnesium Sulfate 50 ml @ 0 mls/hr PROTOCOL PRN IV Last administered on 01/25/25at 10:44; Start 01/05/25 at 02:30; Stop 02/04/25 at 02:29 Lactated Ringer's 1,000 ml @ 100 mls/hr Q10H IV Last administered on 01/05/25at 02:30; Start 01/05/25 at 02:30; Stop 01/05/25 at 09:51; Status DC Chlordiazepoxide HCl 25 mg Q8H PO Last administered on 01/10/25at 22:23; Start 01/05/25 at 02:30; Stop 01/11/25 at 11:39; Status DC Lorazepam 1 mg Q4H PRN IVP; Start 01/05/25 at 02:30; Stop 01/12/25 at 02:29; Status DC Pharmacy Profile Note 1 each PROTOCOL PRN MISC; Start 01/05/25 at 02:30; Stop 01/12/25 at 02:29; Status DC Nicotine 21 mg DAILY TD Last administered on 01/26/25at 09:04; Start 01/05/25 at 09:00; Stop 02/04/25 at 08:59 Sodium Chloride 1,000 ml @ 50 mls/hr Q20H IV Last administered on 01/09/25at 05:56; Start 01/05/25 at 10:00; Stop 01/10/25 at 01:33; Status DC Potassium Phosphate 250 ml @ 42 mls/hr PROTOCOL PRN IV; Start 01/05/25 at 10:00; Stop 02/04/25 at 09:59 Hydralazine HCl 5 mg Q6H PRN IV Last administered on 01/10/25at 22:24; Start 01/05/25 at 14:30; Stop 02/04/25 at 14:29 Doxycycline Hyclate 250 ml @ 125 mls/hr Q12H IV Last administered on 01/06/25at 09:30; Start 01/05/25 at 10:00; Stop 01/06/25 at 21:05; Status DC Potassium Chloride 40 meq ONCE ONCE PO Last administered on 01/05/25at 10:25; Start 01/05/25 at 10:00; Stop 01/05/25 at 10:01; Status DC Potassium Chloride 100 ml @ 50 mls/hr ONCE ONCE IV Last administered on 01/05/25at 10:25; Start 01/05/25 at 10:00; Stop 01/05/25 at 11:59; Status DC Dextrose 50 ml AD PRN IV; Start 01/05/25 at 10:00; Stop 02/04/25 at 09:59 Glucagon 1 mg AD PRN IM; Start 01/05/25 at 10:00; Stop 02/04/25 at 09:59 Insulin Human Regular INSULIN SLIDING SCAL... ACHS SQ Last administered on 01/06/25at 11:50; Start 01/05/25 at 11:30; Stop 01/06/25 at 16:43; Status DC Dexamethasone Sodium Phosphate 10 mg ONCE ONCE IVP Last administered on 01/05/25at 17:27; Start 01/05/25 at 13:30; Stop 01/05/25 at 14:03; Status DC Insulin Glargine 20 units HS SQ; Start 01/06/25 at 21:00; Stop 01/06/25 at 21:05; Status DC Potassium Chloride 10 meq AD PRN PO Last administered on 01/08/25at 23:35; Start 01/06/25 at 09:30; Stop 02/04/25 at 02:29 Dexamethasone Sodium Phosphate 40 mg DAILY ONCE IV; Start 01/07/25 at 09:00; Stop 01/06/25 at 13:27; Status DC Dexamethasone Sodium Phosphate 40 mg/Sodium Chloride 50 ml @ 100 mls/hr DAILY IV Last administered on 01/08/25at 09:34; Start 01/06/25 at 14:00; Stop 01/08/25 at 12:16; Status DC Insulin Human Regular INSULIN SLIDING SCAL... ACHS SQ Last administered on 01/06/25at 17:17; Start 01/06/25 at 17:00; Stop 01/07/25 at 13:32; Status DC Insulin Human Regular 100 unit/ Sodium Chloride 100 ml @ 0 mls/hr AD PRN IV Last administered on 01/09/25at 19:10; Start 01/06/25 at 19:30; Stop 01/10/25 at 06:00; Status DC Insulin Glargine 20 units HS SQ Last administered on 01/06/25at 21:33; Start 01/06/25 at 21:30; Stop 01/07/25 at 10:24; Status DC Doxycycline Hyclate 250 ml @ 125 mls/hr Q12H IV Last administered on 01/16/25at 10:13; Start 01/06/25 at 21:30; Stop 01/16/25 at 14:23; Status DC Chlordiazepoxide HCl 25 mg STK-MED ONCE .ROUTE; Start 01/07/25 at 02:35; Stop 01/07/25 at 02:41; Status DC Piperacillin Sod/ Tazobactam Sod 50 ml @ As Directed STK-MED ONCE .ROUTE; Start 01/07/25 at 02:39; Stop 01/07/25 at 02:41; Status DC Potassium Chloride 0 ml @ As Directed STK-MED ONCE IV; Start 01/07/25 at 07:28; Stop 01/07/25 at 07:31; Status DC Potassium Chloride 40 meq ONCE ONCE PO Last administered on 01/07/25at 09:44; Start 01/07/25 at 10:00; Stop 01/07/25 at 10:01; Status DC Potassium Chloride 100 ml @ 100 mls/hr AD PRN IV Last administered on 01/09/25at 06:26; Start 01/07/25 at 10:30; Stop 02/06/25 at 10:29 Potassium Chloride 10 meq AD PRN PO Last administered on 01/23/25at 15:27; Start 01/07/25 at 10:30; Stop 02/06/25 at 10:29 Potassium Chloride 10 meq AD PRN PO; Start 01/07/25 at 10:30; Stop 01/07/25 at 10:12; Status DC Insulin Glargine 15 units Q12H SQ Last administered on 01/09/25at 13:10; Start 01/07/25 at 21:30; Stop 01/09/25 at 23:18; Status DC Insulin Glargine 10 units ONCE ONCE SQ Last administered on 01/07/25at 10:40; Start 01/07/25 at 10:30; Stop 01/07/25 at 10:31; Status DC Thiamine HCl 300 mg DAILY ONCE IVP Last administered on 01/07/25at 10:39; Start 01/07/25 at 10:30; Stop 01/07/25 at 10:31; Status DC Multivitamins Therapeutic 1 tab DAILY PO Last administered on 01/25/25at 09:45; Start 01/07/25 at 10:30; Stop 02/06/25 at 10:29 Folic Acid 1 mg DAILY PO Last administered on 01/25/25at 09:45; Start 01/07/25 at 10:30; Stop 02/06/25 at 10:29 Triamcinolone Acetonide 1 APPLY TP BID BID TP Last administered on 01/25/25at 22:04; Start 01/07/25 at 11:00; Stop 02/06/25 at 10:59 Vancomycin HCl 1 each AD IV; Start 01/07/25 at 12:30; Stop 01/07/25 at 12:40; Status DC Cefazolin Sodium 2 gm Q12H IVPB Last administered on 01/16/25at 01:12; Start 01/07/25 at 13:30; Stop 01/16/25 at 14:43; Status DC Furosemide 20 mg Q12H IV Last administered on 01/10/25at 19:40; Start 01/07/25 at 16:00; Stop 01/11/25 at 00:56; Status DC Calcium Gluconate 1 gm/Sodium Chloride 100 ml @ 0 mls/hr AD PRN IV Last administered on 01/08/25at 23:32; Start 01/08/25 at 02:30; Stop 02/07/25 at 02:29 Dexamethasone Sodium Phosphate 20 mg/Sodium Chloride 52 ml @ 100 mls/hr DAILY IV Last administered on 01/26/25at 08:38; Start 01/09/25 at 09:00; Stop 02/08/25 at 08:59 Insulin Glargine 20 units Q12H SQ; Start 01/10/25 at 09:30; Stop 01/10/25 at 12:58; Status DC Lactated Ringer's 1,000 ml @ 125 mls/hr Q8H IV Last administered on 01/10/25at 13:07; Start 01/10/25 at 01:30; Stop 01/10/25 at 19:40; Status DC Lactated Ringer's 1,000 ml BOLUS ONCE IV Last administered on 01/10/25at 09:20; Start 01/10/25 at 07:30; Stop 01/10/25 at 07:31; Status DC Lidocaine HCl 100 mg STK-MED ONCE .ROUTE; Start 01/10/25 at 08:01; Stop 01/10/25 at 08:02; Status DC Propofol 200 mg STK-MED ONCE IV; Start 01/10/25 at 08:02; Stop 01/10/25 at 08:02; Status DC Glycopyrrolate 1 mg STK-MED ONCE .ROUTE; Start 01/10/25 at 08:02; Stop 01/10/25 at 08:02; Status DC Ketamine HCl 50 mg STK-MED ONCE .ROUTE; Start 01/10/25 at 08:03; Stop 01/10/25 at 08:03; Status DC Insulin Glargine 25 units Q12H SQ Last administered on 01/10/25at 22:19; Start 01/10/25 at 21:30; Stop 01/11/25 at 00:50; Status DC Insulin Human Regular INSULIN SLIDING SCAL... Q6H6 SQ Last administered on 01/11/25at 00:45; Start 01/10/25 at 18:00; Stop 01/11/25 at 00:50; Status DC Insulin Glargine 30 units Q12H SQ Last administered on 01/11/25at 10:50; Start 01/11/25 at 09:30; Stop 01/11/25 at 20:13; Status DC Insulin Human Regular INSULIN SLIDING SCAL... Q4H SQ Last administered on 01/11/25at 20:49; Start 01/11/25 at 02:00; Stop 01/11/25 at 23:59; Status DC Sodium Chloride 1,000 ml @ 75 mls/hr [id number] IV Last administered on 01/11/25at 01:00; Start 01/11/25 at 01:00; Stop 01/11/25 at 13:45; Status DC Sodium Bicarbonate 1,300 mg BID PO Last administered on 01/25/25at 20:33; Start 01/11/25 at 09:00; Stop 02/10/25 at 08:59 Insulin Human Regular 8 unit TIDAC SQ Last administered on 01/13/25at 19:47; Start 01/11/25 at 07:30; Stop 01/14/25 at 07:03; Status DC Lidocaine HCl 100 mg STK-MED ONCE .ROUTE; Start 01/11/25 at 07:00; Stop 01/11/25 at 07:00; Status DC Atropine Sulfate 1 mg STK-MED ONCE IVP; Start 01/11/25 at 07:00; Stop 01/11/25 at 07:00; Status DC Propofol 200 mg STK-MED ONCE IV; Start 01/11/25 at 07:00; Stop 01/11/25 at 07:00; Status DC Succinylcholine Chloride 200 mg STK-MED ONCE .ROUTE; Start 01/11/25 at 07:00; Stop 01/11/25 at 07:00; Status DC Ketamine HCl 50 mg STK-MED ONCE .ROUTE; Start 01/11/25 at 07:00; Stop 01/11/25 at 07:01; Status DC Glycopyrrolate 1 mg STK-MED ONCE .ROUTE; Start 01/11/25 at 07:01; Stop 01/11/25 at 07:01; Status DC Sodium Chloride 10 ml STK-MED ONCE .ROUTE; Start 01/11/25 at 07:01; Stop 01/11/25 at 07:01; Status DC Phenylephrine HCl 10 mg STK-MED ONCE IV; Start 01/11/25 at 07:01; Stop 01/11/25 at 07:01; Status DC Midazolam HCl 2 mg STK-MED ONCE .ROUTE; Start 01/11/25 at 07:08; Stop 01/11/25 at 07:08; Status DC Ondansetron HCl 4 mg STK-MED ONCE .ROUTE; Start 01/11/25 at 07:34; Stop 01/11/25 at 07:35; Status DC Chlordiazepoxide HCl 25 mg Q8H PRN PO; Start 01/11/25 at 12:00; Stop 01/12/25 at 02:29; Status DC Heparin Sodium/ Dextrose 250 ml @ 0 mls/hr PROTOCOL IV Last administered on 01/17/25at 16:09; Start 01/11/25 at 14:30; Stop 01/18/25 at 13:28; Status DC Fluconazole 200 mg ONCE ONCE PO Last administered on 01/11/25at 15:18; Start 01/11/25 at 15:30; Stop 01/11/25 at 15:31; Status DC Fluconazole 200 mg DAILY PO Last administered on 01/25/25at 09:44; Start 01/12/25 at 09:00; Stop 01/25/25 at 16:12; Status DC Lactobacillus Rhamnosus 1 each DAILY PO Last administered on 01/25/25at 09:44; Start 01/12/25 at 09:00; Stop 02/11/25 at 08:59 Insulin Glargine 30 units DAILY SQ Last administered on 01/12/25at 11:25; Start 01/12/25 at 09:00; Stop 01/14/25 at 07:03; Status DC Insulin Human Regular INSULIN SLIDING SCAL... Q4H SQ Last administered on 01/18/25at 16:59; Start 01/11/25 at 23:59; Stop 01/18/25 at 19:33; Status DC Heparin Sodium (Porcine) 4,000 unit ONCE ONCE IV Last administered on 01/12/25at 22:36; Start 01/12/25 at 22:30; Stop 01/12/25 at 22:31; Status DC Iohexol 35,000 mg STK-MED ONCE IV; Start 01/13/25 at 12:56; Stop 01/13/25 at 12:57; Status DC Insulin Glargine 20 units DAILY SQ Last administered on 01/23/25at 09:41; Start 01/14/25 at 09:00; Stop 01/23/25 at 21:37; Status DC Insulin Human Regular 5 unit TIDAC SQ Last administered on 01/25/25at 17:21; Start 01/14/25 at 07:30; Stop 02/13/25 at 07:29 Aspirin 81 mg DAILY PO Last administered on 01/25/25at 09:45; Start 01/16/25 at 09:00; Stop 01/26/25 at 10:14; Status DC Pharmacy Profile Note 1 each ONCE MISC; Start 01/16/25 at 14:30; Stop 01/16/25 at 15:12; Status DC Dexamethasone Sodium Phosphate 10 mg STK-MED ONCE .ROUTE; Start 01/16/25 at 14:38; Stop 01/16/25 at 14:38; Status DC Dexamethasone Sodium Phosphate 10 mg STK-MED ONCE .ROUTE; Start 01/16/25 at 14:39; Stop 01/16/25 at 14:40; Status DC Cefazolin Sodium 2 gm Q8H IVPB Last administered on 01/17/25at 05:07; Start 01/16/25 at 21:30; Stop 01/17/25 at 13:22; Status DC Gentamicin Sulfate/Sodium Chloride 100 ml @ 200 mls/hr Q12H IV Last administered on 01/17/25at 16:00; Start 01/16/25 at 15:30; Stop 01/18/25 at 03:39; Status DC Acetaminophen 650 mg Q6H PRN PO Last administered on 01/25/25at 23:02; Start 01/16/25 at 17:30; Stop 02/15/25 at 17:29 Nafcillin Sodium 2 gm Q6H6 IV Last administered on 01/25/25at 12:18; Start 01/17/25 at 18:00; Stop 01/25/25 at 16:12; Status DC Melatonin 20 mg ONCE ONCE PO Last administered on 01/17/25at 22:00; Start 01/17/25 at 21:30; Stop 01/17/25 at 21:37; Status DC Gentamicin Sulfate/Sodium Chloride 100 ml @ 200 mls/hr Q12H IV Last administered on 01/20/25at 05:38; Start 01/18/25 at 04:00; Stop 01/20/25 at 06:41; Status DC Nystatin 100,000 UNITS 1 ML TO E... QID PO Last administered on 01/26/25at 17:16; Start 01/18/25 at 09:00; Stop 02/17/25 at 08:59 Apixaban 10 mg BID PO; Start 01/18/25 at 21:00; Stop 01/18/25 at 13:52; Status DC Apixaban 10 mg BID PO Last administered on 01/21/25at 08:45; Start 01/18/25 at 21:00; Stop 01/21/25 at 16:00; Status DC Apixaban 5 mg BID PO; Start 01/25/25 at 21:00; Stop 01/21/25 at 16:00; Status DC Insulin Human Regular INSULIN SLIDING SCAL... ACHS SQ Last administered on 01/25/25at 17:01; Start 01/18/25 at 21:00; Stop 02/17/25 at 20:59 Gentamicin Sulfate 150 mg/ Sodium Chloride 100 ml @ 100 mls/hr Q12H IV Last administered on 01/21/25at 16:00; Start 01/20/25 at 16:00; Stop 01/22/25 at 03:27; Status DC Iron Sucrose 300 mg Q24H IVP; Start 01/21/25 at 15:00; Stop 01/21/25 at 15:29; Status DC Iron Sucrose 300 mg/Sodium Chloride 250 ml @ 166.667 mls/hr Q24H IV; Start 01/21/25 at 16:00; Stop 01/21/25 at 17:22; Status DC Apixaban 5 mg BID PO Last administered on 01/22/25at 09:02; Start 01/21/25 at 21:00; Stop 01/23/25 at 10:57; Status DC Iron Sucrose 300 mg/Sodium Chloride 250 ml @ 166.667 mls/hr Q24H IV; Start 01/21/25 at 19:30; Stop 01/21/25 at 20:57; Status DC Iron Sucrose 300 mg/Sodium Chloride 250 ml @ 166.667 mls/hr Q24H IV Last administered on 01/23/25at 20:56; Start 01/21/25 at 21:00; Stop 01/23/25 at 22:29; Status DC Melatonin 10 mg HS PRN PO Last administered on 01/25/25at 23:03; Start 01/21/25 at 21:30; Stop 02/20/25 at 21:29 Gentamicin Sulfate 90 mg/ Sodium Chloride 50 ml @ 100 mls/hr Q8H IV; Start 01/22/25 at 03:30; Stop 01/22/25 at 03:30; Status DC Gentamicin Sulfate 90 mg/ Sodium Chloride 50 ml @ 100 mls/hr Q8H IV Last administered on 01/23/25at 12:54; Start 01/22/25 at 04:00; Stop 01/23/25 at 20:03; Status DC Apixaban 5 mg BID PO Last administered on 01/25/25at 20:33; Start 01/23/25 at 21:00; Stop 02/22/25 at 20:59 Tramadol HCl 50 mg ONCE ONCE PO Last administered on 01/23/25at 18:44; Start 01/23/25 at 19:00; Stop 01/23/25 at 19:01; Status DC Gentamicin Sulfate/Sodium Chloride 100 ml @ 200 mls/hr BID@0600,1800 IV Last administered on 01/25/25at 05:48; Start 01/24/25 at 06:00; Stop 01/25/25 at 16:12; Status DC Insulin Glargine 15 units DAILY SQ Last administered on 01/25/25at 09:56; Start 01/24/25 at 09:00; Stop 02/23/25 at 08:59 Acetaminophen/ Hydrocodone Bitart 1 tab ONCE ONCE PO Last administered on 01/24/25at 02:51; Start 01/24/25 at 02:30; Stop 01/24/25 at 02:33; Status DC Pharmacy Profile Note 1 each ONCE MISC; Start 01/25/25 at 07:30; Stop 01/25/25 at 07:26; Status DC Furosemide 20 mg BIDPC IV Last administered on 01/26/25at 18:06; Start 01/25/25 at 10:00; Stop 01/26/25 at 18:01; Status DC Lidocaine 1 patch DAILY TP Last administered on 01/26/25at 08:38; Start 01/25/25 at 12:00; Stop 02/24/25 at 11:59 Pharmacy Profile Note 1 each ONCE MISC; Start 01/25/25 at 16:30; Stop 01/25/25 at 16:12; Status DC Linezolid 300 ml @ 300 mls/hr Q12H IV Last administered on 01/26/25at 08:37; Start 01/25/25 at 20:30; Stop 02/04/25 at 20:29 Pantoprazole Sodium 40 mg Q24H IVP Last administered on 01/26/25at 04:45; Start 01/26/25 at 04:30; Stop 02/25/25 at 04:29 Iohexol 35,000 mg STK-MED ONCE IV; Start 01/26/25 at 16:37; Stop 01/26/25 at 16:37; Status DC MAITE RESTREPO MD Jan 26, 2025 20:14
--- NOTE | 2025-01-26 20:28 | HMCIMG ---
CT ANGIOGRAM OF THE CHEST WITHOUT AND WITH CONTRAST. CT RECONSTRUCTIONS INDICATION: Pulmonary embolism evaluation TECHNIQUE: Routine axial images using 3 mm slice thickness were acquired from the lung apices to the bases before and after the intravenous administration of 100 mL of Omnipaque 350 contrast material using the pulmonary embolism protocol. Maximum Intensity Projection imaging in the sagittal and coronal planes were also provided. CT was performed with one or more of the following dose reduction techniques: Automated exposure control, adjustment of the mA and/or kV according to patient size, or use of iterative reconstruction technique. COMPARISON: None FINDINGS: Examination provided for interpretation at 8:20 PM on 01/26/2025. The contrast bolus is of good quality for diagnosis of pulmonary embolism. The heart size is within normal limits without pericardial effusion. The main pulmonary arteries, segmental branches, and visualized subsegmental pulmonary arteries appear normal without intraluminal filling defects. Pulmonary trunk is not enlarged. No evidence for thoracic aortic aneurysm or dissection. The origins of the great vessels and thoracic aorta appear normal. The visible portions of the trachea and airways are patent. Right greater than left lower lobe opacities. No axillary, hilar, or mediastinal lymphadenopathy detected. Several calcific gallstones. Visible osseous structures are intact. IMPRESSION: Evolving right greater than left lower lobe pneumonia, without evidence for pulmonary embolism. Cholelithiasis.
[2025-01-27] VITALS (8 sets, daily range): BP systolic 115–148; BP diastolic 60–79; PULSE 79–98; RESP 18–22; TEMP 97.6–98.5; O2SAT 96
[2025-01-27 01:28] LABS: HEMATOCRIT 24.4 % (42-54)
--- NOTE | 2025-01-27 08:32 | PN ---
GASTROENTEROLOGY PROGRESS NOTE Date of Visit: Jan 27, 2025 Time of Visit: 08:29 Events / Notes: No acute events overnight. Patient had EGD revealing LA Grade B esophagitis. Denies fever, chills, abdominal pain, N/V, hematemesis, bloating, constipation, diarrhea, melena or hematochezia. No overt GI bleeding. Review of Systems: CONSTITUTIONAL: No malaise or change in sensation of wellbeing. ENMT: No rhinorrhea, otorrhea, sinus pain, ear ache. CARDIOVASCULAR: No angina, palpitations, orthopnea or paroxysmal dyspnea. RESPIRATORY: No SOB. GASTROINTESTINAL: No abdominal pain, nausea, vomiting, diarrhea, hematemesis, melena or change in the patient's habitual bowel movements consistency/number. GENITOURINARY: No dysuria, hematuria or change in bladder continence. MUSCULOSKELETAL: No new muscle pain or decrease in muscular strength. No new joint swelling, redness or tenderness. SKIN: No new rash. Physical Exam: GEN: Awake, alert, oriented in person, time and place, and in no acute distress. HEENT: No sinus tenderness. Tympanic membranes were not examined. No rhinorrhea. Oral pharyngeal mucosa is pink, moist and within normal limits. Neck is supple with no cervical lymphadenopathy, thyromegaly or JVD. CHEST: Inspection, palpation and percussion of the chest were unremarkable. Lung auscultation revealed normal breath sounds bilaterally. CARDIAC: PMI is within normal limits. Heart sounds are regular. Normal S1, S2. No gallop or murmur. ABD: Soft, non-tender and not distended. No peritoneal signs on palpation. No organomegaly. Normal bowel sounds. EXT: No cyanosis or clubbing. No edema. SKIN: Intact. No rashes. JOINTS: No evidence of synovitis or acute arthritis. NEURO: Alert and oriented to name, place and person. Cranial nerve examination is unremarkable. No focal motor deficits. Normal speech. Gait is normal. Strength is normal. Vital Signs (last 8hr) Date Time Temp Pulse Resp B/P (MAP) Pulse Ox O2 Delivery O2 Flow Rate FiO2 01/27/25 07:20 97.5 83 18 122/66 96 Room Air 21 01/27/25 04:00 98.4 89 18 115/68 96 Room Air Laboratory: [ ] Laboratory: Test 01/27/25 05:18 01/27/25 01:20 01/26/25 15:05 01/26/25 06:56 Range/Units Whole Blood Glucose 89 # 70-110 MG/DL Hemoglobin 8.2 L 14.0-18.0 g/dL Hematocrit 24.4 L 42-54 % D-Dimer Quantitative (PE/DVT) 1694 *H 0-500 ng/mL Prothrombin Time 11.4 9.6-11.6 SEC Prothromb Time International Ratio 1.08 0.85-1.15 Activated Partial Thromboplast Time 36.3 H 26.3-35.5 SEC Test 01/26/25 05:51 Range/Units White Blood Count 9.1 4.8-10.8 K/uL Red Blood Count 2.70 L 4.50-6.20 MIL/uL Mean Corpuscular Volume 97.0 79-99 fL Mean Corpuscular Hemoglobin 31.9 27.0-33.0 pg Mean Corpuscular Hemoglobin Concent 32.8 32.0-36.0 g/dL Red Cell Distribution Width 14.4 11.0-15.5 % Platelet Count 186 # 130-400 K/uL Mean Platelet Volume 10.1 7.5-10.5 fL Immature Granulocyte % (Auto) 1.1 H 0-1 % Neutrophils (%) (Auto) 67.4 40.0-77.0 % Lymphocytes (%) (Auto) 22.2 21.0-51.0 % Monocytes (%) (Auto) 6.5 3.0-13.0 % Eosinophils (%) (Auto) 2.7 0.0-8.0 % Basophils (%) (Auto) 0.1 0.0-5.0 % Neutrophils # (Auto) 6.1 1.8-7.7 K/uL Lymphocytes # (Auto) 2.0 1.0-4.8 K/uL Monocytes # (Auto) 0.6 0.1-1.0 K/uL Eosinophils # (Auto) 0.24 0.00-0.70 K/uL Basophils # (Auto) 0.01 0.00-0.20 K/uL Absolute Immature Granulocyte (auto 0.10 0-1 K/uL Nucleated Red Blood Cells 0.0 0.0-0.19 % Sodium Level 138 136-145 mmol/L Potassium Level 3.8 3.5-5.1 mmol/L Chloride Level 106 101-111 mmol/L Carbon Dioxide Level 25 21-32 mmol/L Blood Urea Nitrogen 21 H 7-18 mg/dL Creatinine 1.1 0.5-1.3 mg/dL Glomerular Filtration Rate Calc 85 >90 mL/min Random Glucose 104 70-105 mg/dL Total Calcium 8.1 L 8.5-10.1 mg/dL Current Medications Medications (Trade) Dose Ordered Sig/Asya Route PRN Reason Start Time Stop Time Status Last Admin Dose Admin Acetaminophen (TYLenol 325MG TAB) 650 mg Q6H PRN PO MILD PAIN (1-3) 01/16/25 17:30 02/15/25 17:29 01/26/25 22:18 650 MG Acetaminophen (TYLenol 325MG TAB) 650 mg Q6H PRN PO TEMPERATURE GREATER THAN 101.5 01/05/25 02:30 02/04/25 02:29 01/25/25 17:03 650 MG Apixaban (EliquIS) 5 mg BID PO 01/21/25 21:00 01/23/25 10:57 DC 01/22/25 09:02 5 MG Apixaban (EliquIS) 5 mg BID PO 01/23/25 21:00 02/22/25 20:59 01/26/25 22:07 5 MG Apixaban (EliquIS) 5 mg BID PO 01/25/25 21:00 01/21/25 16:00 DC Apixaban (EliquIS) 10 mg BID PO 01/18/25 21:00 01/18/25 13:52 DC Apixaban (EliquIS) 10 mg BID PO 01/18/25 21:00 01/21/25 16:00 DC 01/21/25 08:45 10 MG Aspirin (Aspirin 81mg Chew Tab) 81 mg DAILY PO 01/05/25 09:00 01/05/25 09:53 DC Aspirin (Aspirin 81mg Ec Tab) 81 mg DAILY PO 01/16/25 09:00 01/26/25 10:14 DC 01/25/25 09:45 81 MG Benzocaine (Cepacol Sore Throat Lozenge) 1 each Q4H PRN MM SORE THROAT 01/05/25 02:30 02/04/25 02:29 Calcium Gluconate 1 gm/Sodium Chloride 100 ml @ 0 mls/hr AD PRN IV Serum Calcium Correction 01/08/25 02:30 02/07/25 02:29 01/08/25 23:32 90 MLS/HR Cefazolin Sodium (Ancef) 2 gm Q12H IVPB 01/07/25 13:30 01/16/25 14:43 DC 01/16/25 01:12 2 GM Cefazolin Sodium (Ancef) 2 gm Q8H IVPB 01/16/25 21:30 01/17/25 13:22 DC 01/17/25 05:07 2 GM Chlordiazepoxide HCl (LIBrium 25 MG CAP) 25 mg Q8H PO 01/05/25 02:30 01/11/25 11:39 DC 01/10/25 22:23 25 MG Chlordiazepoxide HCl (LIBrium 25 MG CAP) 25 mg Q8H PRN PO WITHDRAWAL 01/11/25 12:00 01/12/25 02:29 DC Dexamethasone Sodium Phosphate 20 mg/Sodium Chloride 52 ml @ 100 mls/hr DAILY IV 01/09/25 09:00 02/08/25 08:59 01/26/25 08:38 100 MLS/HR Dexamethasone Sodium Phosphate 40 mg/Sodium Chloride 50 ml @ 100 mls/hr DAILY IV 01/06/25 14:00 01/08/25 12:16 DC 01/08/25 09:34 100 MLS/HR Dextrose (D50w) 50 ml AD PRN IV HYPOGLYCEMIA PROTOCOL 01/05/25 10:00 02/04/25 09:59 Doxycycline Hyclate 250 ml @ 125 mls/hr Q12H IV 01/05/25 10:00 01/06/25 21:05 DC 01/06/25 09:30 125 MLS/HR Doxycycline Hyclate 250 ml @ 125 mls/hr Q12H IV 01/06/25 21:30 01/16/25 14:23 DC 01/16/25 10:13 125 MLS/HR Fluconazole (DiFLUCan 100 mg TAB) 200 mg DAILY PO 01/12/25 09:00 01/25/25 16:12 DC 01/25/25 09:44 200 MG Folic Acid (FOLic ACID 1 MG TABLET) 1 mg DAILY PO 01/07/25 10:30 02/06/25 10:29 01/25/25 09:45 1 MG Furosemide (LASix 20MG VIAL) 20 mg BIDPC IV 01/25/25 10:00 01/26/25 18:01 DC 01/26/25 18:06 20 MG Furosemide (LASix 20MG VIAL) 20 mg Q12H IV 01/07/25 16:00 01/11/25 00:56 DC 01/10/25 19:40 20 MG Gentamicin Sulfate 150 mg/ Sodium Chloride 100 ml @ 100 mls/hr Q12H IV 01/20/25 16:00 01/22/25 03:27 DC 01/21/25 16:00 100 MLS/HR Gentamicin Sulfate 90 mg/ Sodium Chloride 50 ml @ 100 mls/hr Q8H IV 01/22/25 03:30 01/22/25 03:30 DC Gentamicin Sulfate 90 mg/ Sodium Chloride 50 ml @ 100 mls/hr Q8H IV 01/22/25 04:00 01/23/25 20:03 DC 01/23/25 12:54 100 MLS/HR Gentamicin Sulfate/Sodium Chloride 100 ml @ 200 mls/hr BID@0600,1800 IV 01/24/25 06:00 01/25/25 16:12 DC 01/25/25 05:48 200 MLS/HR Gentamicin Sulfate/Sodium Chloride 100 ml @ 200 mls/hr Q12H IV 01/16/25 15:30 01/18/25 03:39 DC 01/17/25 16:00 200 MLS/HR Gentamicin Sulfate/Sodium Chloride 100 ml @ 200 mls/hr Q12H IV 01/18/25 04:00 01/20/25 06:41 DC 01/20/25 05:38 200 MLS/HR Glucagon (Glucagon 1mg Kit) 1 mg AD PRN IM HYPOGLYCEMIA PROTOCOL 01/05/25 10:00 02/04/25 09:59 Heparin Sodium/ Dextrose 250 ml @ 0 mls/hr PROTOCOL IV 01/11/25 14:30 01/18/25 13:28 DC 01/17/25 16:09 13.99 MLS/HR Hydralazine HCl (APRESOLine 20MG INJ) 5 mg Q6H PRN IV For:SBP above 160;DBP above 90 01/05/25 14:30 02/04/25 14:29 01/10/25 22:24 5 MG Hydralazine HCl (APRESOLine 20MG INJ) 10 mg Q6H PRN IV For:SBP above 160;DBP above 90 01/05/25 02:30 01/05/25 09:53 DC Insulin Glargine (LANtus 100 UNITS/ML 10 ML VIAL) 15 units DAILY SQ 01/24/25 09:00 02/23/25 08:59 01/25/25 09:56 15 UNITS Insulin Glargine (LANtus 100 UNITS/ML 10 ML VIAL) 15 units Q12H SQ 01/07/25 21:30 01/09/25 23:18 DC 01/09/25 13:10 15 UNITS Insulin Glargine (LANtus 100 UNITS/ML 10 ML VIAL) 20 units DAILY SQ 01/14/25 09:00 01/23/25 21:37 DC 01/23/25 09:41 20 UNITS Insulin Glargine (LANtus 100 UNITS/ML 10 ML VIAL) 20 units HS SQ 01/06/25 21:00 01/06/25 21:05 DC Insulin Glargine (LANtus 100 UNITS/ML 10 ML VIAL) 20 units HS SQ 01/06/25 21:30 01/07/25 10:24 DC 01/06/25 21:33 20 UNITS Insulin Glargine (LANtus 100 UNITS/ML 10 ML VIAL) 20 units Q12H SQ 01/10/25 09:30 01/10/25 12:58 DC Insulin Glargine (LANtus 100 UNITS/ML 10 ML VIAL) 25 units Q12H SQ 01/10/25 21:30 01/11/25 00:50 DC 01/10/25 22:19 25 UNITS Insulin Glargine (LANtus 100 UNITS/ML 10 ML VIAL) 30 units DAILY SQ 01/12/25 09:00 01/14/25 07:03 DC 01/12/25 11:25 30 UNITS Insulin Glargine (LANtus 100 UNITS/ML 10 ML VIAL) 30 units Q12H SQ 01/11/25 09:30 01/11/25 20:13 DC 01/11/25 10:50 30 UNITS Insulin Human Regular (humuLIN R 100 UNIT/ML 3ML) 5 unit TIDAC SQ 01/14/25 07:30 02/13/25 07:29 01/25/25 17:21 5 UNIT Insulin Human Regular (humuLIN R 100 UNIT/ML 3ML) 8 unit TIDAC SQ 01/11/25 07:30 01/14/25 07:03 DC 01/13/25 19:47 8 UNIT Insulin Human Regular (humuLIN R 100 UNIT/ML 3ML) INSULIN SLIDING SCAL... ACHS SQ 01/18/25 21:00 02/17/25 20:59 01/26/25 22:31 4 UNIT Insulin Human Regular (humuLIN R 100 UNIT/ML 3ML) INSULIN SLIDING SCAL... ACHS SQ 01/05/25 07:30 01/05/25 09:57 DC 01/05/25 07:59 16 UNIT Insulin Human Regular (humuLIN R 100 UNIT/ML 3ML) INSULIN SLIDING SCAL... ACHS SQ 01/05/25 11:30 01/06/25 16:43 DC 01/06/25 11:50 8 UNIT Insulin Human Regular (humuLIN R 100 UNIT/ML 3ML) INSULIN SLIDING SCAL... ACHS SQ 01/06/25 17:00 01/07/25 13:32 DC 01/06/25 17:17 16 UNIT Insulin Human Regular (humuLIN R 100 UNIT/ML 3ML) INSULIN SLIDING SCAL... Q4H SQ 01/11/25 02:00 01/11/25 23:59 DC 01/11/25 20:49 6 UNIT Insulin Human Regular (humuLIN R 100 UNIT/ML 3ML) INSULIN SLIDING SCAL... Q4H SQ 01/11/25 23:59 01/18/25 19:33 DC 01/18/25 16:59 4 UNIT Insulin Human Regular (humuLIN R 100 UNIT/ML 3ML) INSULIN SLIDING SCAL... Q6H6 SQ 01/10/25 18:00 01/11/25 00:50 DC 01/11/25 00:45 10 UNIT Insulin Human Regular 100 unit/ Sodium Chloride 100 ml @ 0 mls/hr AD PRN IV HYPERGLYCEMIA PROTOCOL 01/06/25 19:30 01/10/25 06:00 DC 01/09/25 19:10 16 MLS/HR Iron Sucrose (VenoFER) 300 mg Q24H IVP 01/21/25 15:00 01/21/25 15:29 DC Iron Sucrose 300 mg/Sodium Chloride 250 ml @ 166.667 mls/hr Q24H IV 01/21/25 16:00 01/21/25 17:22 DC Iron Sucrose 300 mg/Sodium Chloride 250 ml @ 166.667 mls/hr Q24H IV 01/21/25 19:30 01/21/25 20:57 DC Iron Sucrose 300 mg/Sodium Chloride 250 ml @ 166.667 mls/hr Q24H IV 01/21/25 21:00 01/23/25 22:29 DC 01/23/25 20:56 166.667 MLS/HR Lactated Ringer's 1,000 ml @ 100 mls/hr Q10H IV 01/05/25 02:30 01/05/25 09:51 DC 01/05/25 02:30 100 MLS/HR Lactated Ringer's 1,000 ml @ 125 mls/hr Q8H IV 01/10/25 01:30 01/10/25 19:40 DC 01/10/25 13:07 125 MLS/HR Lactobacillus Rhamnosus ([facility] [employer]) 1 each DAILY PO 01/12/25 09:00 02/11/25 08:59 01/25/25 09:44 1 EACH Lidocaine (Lidoderm Patch 5%) 1 patch DAILY TP 01/25/25 12:00 02/24/25 11:59 01/26/25 08:38 1 PATCH Linezolid 300 ml @ 300 mls/hr Q12H IV 01/25/25 20:30 02/04/25 20:29 01/26/25 22:07 300 MLS/HR Lorazepam (AtiVAN) 1 mg Q4H PRN IVP ALCOHOL WITHDRAWAL PROTOCOL 01/05/25 02:30 01/12/25 02:29 DC Magnesium Sulfate 50 ml @ 0 mls/hr PROTOCOL PRN IV h 01/05/25 02:30 02/04/25 02:29 01/25/25 10:44 25 MLS/HR Melatonin (Melatonin) 10 mg HS PRN PO INSOMNIA 01/21/25 21:30 02/20/25 21:29 01/26/25 22:18 10 MG Morphine Sulfate (morPHINE 2MG SYG) 2 mg Q4H PRN IVP SEVERE PAIN (7-10) 01/05/25 02:30 01/12/25 02:29 DC Multivitamins Therapeutic (Multivitamin Tablet) 1 tab DAILY PO 01/07/25 10:30 02/06/25 10:29 01/25/25 09:45 1 TAB Nafcillin Sodium (Nafcillin 2gm+ NS 100ml) 2 gm Q6H6 IV 01/17/25 18:00 01/25/25 16:12 DC 01/25/25 12:18 2 GM Nicotine (Nicoderm) 21 mg DAILY TD 01/05/25 09:00 02/04/25 08:59 01/26/25 09:04 21 MG Nitroglycerin (Nitrostat) 0.4 mg AD PRN SL CHEST PAIN 01/05/25 02:30 02/04/25 02:29 Nystatin (NYSTatin 847604 UNIT/ML 5ML UDCUP) 100,000 UNITS 1 ML TO E... QID PO 01/18/25 09:00 02/17/25 08:59 01/26/25 22:07 2 ML Ondansetron HCl (zoFRAN 4MG INJ) 4 mg Q6H PRN IV NAUSEA/VOMITING 01/05/25 02:30 02/04/25 02:29 Pantoprazole Sodium (PROTonix 40MG INJ) 40 mg Q24H IVP 01/26/25 04:30 02/25/25 04:29 01/27/25 04:40 40 MG Pantoprazole Sodium (PROTonix 40MG TAB) 40 mg DAILY PO 01/05/25 09:00 01/26/25 04:16 DC 01/25/25 09:45 40 MG Pharmacy Profile Note (Pharmacy Communication) 1 each ONCE MISC 01/16/25 14:30 01/16/25 15:12 DC Pharmacy Profile Note (Pharmacy Communication) 1 each ONCE MISC 01/25/25 07:30 01/25/25 07:26 DC Pharmacy Profile Note (Pharmacy Communication) 1 each ONCE MISC 01/25/25 16:30 01/25/25 16:12 DC Pharmacy Profile Note (Pharmacy Communication) 1 each PROTOCOL PRN MISC ETOH Withdrawal Score changes 01/05/25 02:30 01/12/25 02:29 DC Piperacillin Sod/ Tazobactam Sod (Zosyn 3.375gm+NS 50ml) 3.375 gm Q12H IV 01/05/25 02:30 01/07/25 13:24 DC 01/07/25 02:45 3.375 GM Potassium Phosphate 250 ml @ 42 mls/hr PROTOCOL PRN IV PROTOCOL 01/05/25 10:00 02/04/25 09:59 Potassium Chloride 100 ml @ 100 mls/hr AD PRN IV POTASSIUM PROTOCOL 01/05/25 02:30 01/07/25 10:12 DC Potassium Chloride 100 ml @ 100 mls/hr AD PRN IV POTASSIUM PROTOCOL 01/07/25 10:30 02/06/25 10:29 01/09/25 06:26 100 MLS/HR Potassium Chloride (K-Dur 10meq Sr Tab) 10 meq AD PRN PO POTASSIUM PROTOCOL 01/06/25 09:30 02/04/25 02:29 01/08/25 23:35 10 MEQ Potassium Chloride (K-Dur/Klor-Con 20meq) 10 meq AD PRN PO POTASSIUM PROTOCOL 01/05/25 02:30 01/06/25 09:12 DC 01/05/25 22:15 10 MEQ Potassium Chloride (K-Dur/Klor-Con 20meq) 10 meq AD PRN PO POTASSIUM PROTOCOL 01/07/25 10:30 01/07/25 10:12 DC Potassium Chloride (KCl 10% Elixir 20meq/15ml) 10 meq AD PRN PO POTASSIUM PROTOCOL 01/05/25 02:30 01/07/25 10:12 DC 01/06/25 17:16 10 MEQ Potassium Chloride (KCl 10% Elixir 20meq/15ml) 10 meq AD PRN PO POTASSIUM PROTOCOL 01/07/25 10:30 02/06/25 10:29 01/23/25 15:27 10 MEQ Sodium Bicarbonate (Sodium Bicarbonate) 1,300 mg BID PO 01/11/25 09:00 02/10/25 08:59 01/26/25 22:07 1,300 MG Sodium Chloride 1,000 ml @ 50 mls/hr Q20H IV 01/05/25 10:00 01/10/25 01:33 DC 01/09/25 05:56 50 MLS/HR Sodium Chloride 1,000 ml @ 75 mls/hr [id number] IV 01/11/25 01:00 01/11/25 13:45 DC 01/11/25 01:00 75 MLS/HR Triamcinolone Acetonide (Kenalog/ Aristocort) 1 APPLY TP BID BID TP 01/07/25 11:00 02/06/25 10:59 01/25/25 22:04 1 APPL Vancomycin HCl (Vancomycin Protocol) 1 each AD IV 01/07/25 12:30 01/07/25 12:40 DC Diagnostics / Radiology: [COPY/PASTE HERE IF NO REPORTS PLEASE DELETE SECTION] Assessment: GERD esophagitis Decompensated cirrhosis Thrombocytopenia Abnormal troponin Alcohol abuse Plan: Follow cardio recommendations Will obtain liver serologies to r/o other liver pathology Please contact our service if the patient has significant bleeding such as hematemesis and we can proceed sooner with the EGD Thanks you for allowing us to participate in the care of this patient! HILDA MUIR RESTORATIVE COORDINATOR Jan 27, 2025 08:32
--- NOTE | 2025-01-27 08:57 | PN ---
[facility] CARDIOLOGY PROGRESS NOTE Cardiology progress note dictated for Evans Hilario MD Date Patient Seen: Jan 27, 2025 Interval History: This 44-year-old Latin-Algerian male with a history of morbid obesity, liver cirrhosis, polysubstance abuse (ETOH and cocaine), suspected sleep apnea, hypertension, hyperlipidemia, and coronary artery disease status post remote stenting of the proximal LAD 12/19/2015 has had a prolonged hospitalization thus far was admitted with sepsis, MSSA, and was found to have a 1.8 x 1.2 cm vegetation involving the aortic valve by DRAKE 01/11/2025 as well as a left atrial appendage thrombus. He has been maintained on antibiotics and Eliquis anticoagulation. The patient was noted to have a small left calf hematoma which has been stable and Eliquis was resumed 01/23/2025. A limited follow up 2D echocardiogram 01/23/2025 demonstrated LVEF is 60-65% with normal LV segmental wall motion, Aortic valve non coronary cusp leaflet vegetation currently measures 0.8cm x 1.15cm with a traced area of 0.9cm (relatively unchanged) and no pericardial effusion. A left lower extremity venous doppler exam on 01/23/2025 demonstrated no evidence of DVT. A right upper extremity venous doppler exam earlier today demonstrated a noncompressible thrombus is seen in the right cephalic vein consistent with superficial thrombophlebitis. The right PICC line was discontinued. He continues on IV antibiotic therapy and will require 6 weeks total of antibiotic therapy. Chest x-ray 01/24/2025 demonstrated cardiomegaly and pulmonary vascular congestion likely related to volume infusion from antibiotic therapy. BNP 611 on 01/25/2025. He was given Lasix 20 mg IV q.12 hours x 4 doses, now completed. He reported he was laying prone and coughed up sputum reported as "large" clot. There was not hematemesis and no other evidence of bleeding. Eliquis held the AM of 01/26/2025 and resumed at night. CT Chest revealed evolving right greater than left lower lobe pneumonia, without evidence for pulmonary embolism. The patient denies chest pain, chest pressure, palpitations, dizziness or shortness of breath. He does admit to an intermittent dry cough. Physical Examination: GENERAL: No acute distress. HEAD: Normal with no signs of head trauma. EYES: PERRLA, EOMI, conjunctiva and sclera normal. NECK: Supple without JVD. There is no tenderness, lymphadenopathy, or masses. No thyromegaly. Normal carotid upstrokes without bruits. LUNGS: Crackles to mid and lower bases bilaterally. HEART: Regular rate. Normal S1 and S2. No obvious murmurs, gallops, or rubs noted. No murmur audible. VASC: Peripheral pulses +2 bilaterally. EXT: Ecchymosis to the right upper arm noted. There is a left calf hematoma and increased girth of the left calf compared to the right calf. 2-3+ pedal edema. There are scattered petechial and purpuric patches. NEURO: Awake, alert, and oriented. No focal neurological deficits noted. Laboratory: Hematology Labs: Test 01/27/25 01:20 01/26/25 05:51 Range/Units Hemoglobin 8.2 L 14.0-18.0 g/dL Hematocrit 24.4 L 42-54 % White Blood Count 9.1 4.8-10.8 K/uL Red Blood Count 2.70 L 4.50-6.20 MIL/uL Mean Corpuscular Volume 97.0 79-99 fL Mean Corpuscular Hemoglobin 31.9 27.0-33.0 pg Mean Corpuscular Hemoglobin Concent 32.8 32.0-36.0 g/dL Red Cell Distribution Width 14.4 11.0-15.5 % Platelet Count 186 # 130-400 K/uL Mean Platelet Volume 10.1 7.5-10.5 fL Immature Granulocyte % (Auto) 1.1 H 0-1 % Neutrophils (%) (Auto) 67.4 40.0-77.0 % Lymphocytes (%) (Auto) 22.2 21.0-51.0 % Monocytes (%) (Auto) 6.5 3.0-13.0 % Eosinophils (%) (Auto) 2.7 0.0-8.0 % Basophils (%) (Auto) 0.1 0.0-5.0 % Neutrophils # (Auto) 6.1 1.8-7.7 K/uL Lymphocytes # (Auto) 2.0 1.0-4.8 K/uL Monocytes # (Auto) 0.6 0.1-1.0 K/uL Eosinophils # (Auto) 0.24 0.00-0.70 K/uL Basophils # (Auto) 0.01 0.00-0.20 K/uL Absolute Immature Granulocyte (auto 0.10 0-1 K/uL Nucleated Red Blood Cells 0.0 0.0-0.19 % Chemistry Labs: Test 01/27/25 05:18 01/26/25 05:51 Range/Units Whole Blood Glucose 89 # 70-110 MG/DL Sodium Level 138 136-145 mmol/L Potassium Level 3.8 3.5-5.1 mmol/L Chloride Level 106 101-111 mmol/L Carbon Dioxide Level 25 21-32 mmol/L Blood Urea Nitrogen 21 H 7-18 mg/dL Creatinine 1.1 0.5-1.3 mg/dL Glomerular Filtration Rate Calc 85 >90 mL/min Random Glucose 104 70-105 mg/dL Total Calcium 8.1 L 8.5-10.1 mg/dL Coagulation Labs: Test 01/26/25 15:05 01/26/25 06:56 Range/Units D-Dimer Quantitative (PE/DVT) 1694 *H 0-500 ng/mL Prothrombin Time 11.4 9.6-11.6 SEC Prothromb Time International Ratio 1.08 0.85-1.15 Activated Partial Thromboplast Time 36.3 H 26.3-35.5 SEC Assessment: -Severe sepsis -Bacteremia (MSSA) -UTI (Klebsiella) -Strep A positive -Acute cocaine intoxication -Acute cholecystitis -Acute renal failure in the setting of severe sepsis, resolving -Fidelina esophagitis identified on EGD done 01/11/2025 -Bacterial endocarditis affecting the aortic valve (1.81x1.17 cm mass attached to the noncoronary cusp leaflet) identified on DRAKE done 01/11/2025 -Left atrial appendage thrombus identified on DRAKE done 01/11/2025 -Normal LV systolic function (LVEF: 60-65% by echo done 01/11/2025) -Elevated troponin (type II MO) -ITP -Liver cirrhosis -Esophagitis by EGD 01/11/2025 -CAD s/p PCI with IA Integrilin, aspiration thrombectomy, PTCA, and KISHORE placem ent (Promus 4.0x16 mm) in the proximal LAD done on 12/19/2015 -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 of the RCA cursing between the aorta and PA trunk) identified on LHC done 12/19/2015 -HTN -HLP -Polysubstance abuse (ETOH and cocaine) -Suspected MARCOS/OHS -Morbid obesity -Noncompliance Plan: Bacterial endocarditis affecting the aortic valve (1.81x1.17 cm mass attached to the noncoronary cusp leaflet) identified on DRAKE done 01/11/2025 -Limited follow up 2D echocardiogram 01/23/2025 demonstrated vegetation measuring 0.8cm x 1.15cm with a traced area of 0.9cm (relatively unchanged) -Positive blood cultures collected 01/05/2025, 01/07/2025, 01/09/2025, 01/11/2025 -Blood cultures collected and 01/19/2025-negative x5 days -The patient will continue on IV antibiotic therapy which has been tailored by ID, with plans to continue inpatient for IV antibiotic therapy for 6 weeks -Plans are for IV antibiotic therapy as outpatient through Wound care center and ER bid dosing Left atrial appendage thrombus identified on DRAKE done 01/11/2025 -We will hold Eliquis 5 mg b.i.d. and have Hematology see the patient to further evaluate the etiology of the LLE hematoma -Will discontinue aspirin to reduce bleeding risk Elevated troponin -HS troponin I peak: 195 -Withdraw aspirin to allow continued Eliquis anticoagulation to reduce bleeding risk, but will hold Eliquis for now until seen by Hematology. -He is not a candidate for statin therapy due to his liver dysfunction. Acute diastolic heart failure on admission: -BNP 611 on 01/25/2025. He was given Lasix 20 mg IV q.12 hours x 4 doses, now completed. -A follow up CXR on 01/26 demonstrated mild bilateral pulmonary infiltrates may be related to mild pulmonary vascular congestion with possible superimposed pneumonitis. With CT of the chest revealing evolving right greater than left lower lobe pneumonia, without evidence for pulmonary embolism. Pneumonia likely from septic emboli. Left thigh swelling, without evidence of DVT -A left lower extremity venous doppler exam on 01/23/2025 ruled out DVT. -Superficial (right cephalic vein) thrombus: -continue current therapy unchanged Acute renal failure, resolving: -continue to monitor renal function JAXON ROBLES Jan 27, 2025 08:57 EVANS HILARIO MD Jan 27, 2025 19:50
[2025-01-27 09:31] LABS: HEMATOCRIT 25.5 % (42-54)
--- NOTE | 2025-01-27 17:02 | PN ---
[facility] PROGRESS NOTE Date Patient Seen: Jan 27, 2025 Time of Visit: 17:01 Supervising Physician: Dr. 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 Uncontrolled Diabetes mellitius type2, POA HgA1C 8.5 NTEMI Type II AR POA PolySubstance abuse, POA, (cocaine/Marijuana) Alcohol dependence, POA Tobacco dependence, POA Acute cholecystitis on HIDA scan 01/07/25 POA Hepatomegaly with hepato steatosis MELD score on admission of 31 Morbid obesity Noncompliance behavior PLAN SUMMARY: Monitor for any signs of bleeding We will proceed with a CTA of the chest at this time. Monitor hemoglobin levels, there are no signs of active bleeding at this time given his left atrial appendage would advised to resume his Eliquis and monitor for any further hemoptysis, quantify it in a cup. We appreciate this consultation we will continue to follow along closely Supplemental oxygen as needed Wean off as tolerated Duo nebs as needed Continue BiPAP nightly and p.r.n. IS while awake Continue cefazolin Continue doxycycline Continue fluconazole Patient will need a pulmonary f/u as an outpatient for evaluation of suspected sleep apnea INTERVAL HISTORY: Patient evaluated sitting in his chair at bedside. Currently on room air and denying any complaints or pain at this time. Patient has had no further episodes of hemoptysis has reported, no chest pain, no nausea or vomiting. Patient denies any overnight events. He continues on IV antibiotics at this time pending evaluation for aortic valve replacement on this admission. REVIEW OF SYSTEMS: 12 point ROS reviewed with patient. Pertinent positives mentioned above. Otherwise negative. PHYSICAL EXAM: GENERAL: alert, weak, awake oriented x 3 HEENT: EOMI, Sclera non icteric, moist mucosa NECK: Supple, no JVD, trachea midline LUNGS: Clear breath sounds bilaterally. No wheezes HEART: Regular rate and rhythm. Normal S1 and S2, without murmurs ABD: Abdomen soft, nontender. Bowel sounds present EXT: No clubbing cyanosis or edema NEURO: Alert and oriented to person, follows commands Vital Signs (last 8hr) Date Time Temp Pulse Resp B/P (MAP) Pulse Ox O2 Delivery O2 Flow Rate FiO2 01/27/25 11:20 97.9 98 18 125/63 97 Room Air 21 LABS: Hematology Labs: Test 01/27/25 09:09 01/26/25 05:51 Range/Units Hemoglobin 8.7 L 14.0-18.0 g/dL Hematocrit 25.5 L 42-54 % White Blood Count 9.1 4.8-10.8 K/uL Red Blood Count 2.70 L 4.50-6.20 MIL/uL Mean Corpuscular Volume 97.0 79-99 fL Mean Corpuscular Hemoglobin 31.9 27.0-33.0 pg Mean Corpuscular Hemoglobin Concent 32.8 32.0-36.0 g/dL Red Cell Distribution Width 14.4 11.0-15.5 % Platelet Count 186 # 130-400 K/uL Mean Platelet Volume 10.1 7.5-10.5 fL Immature Granulocyte % (Auto) 1.1 H 0-1 % Neutrophils (%) (Auto) 67.4 40.0-77.0 % Lymphocytes (%) (Auto) 22.2 21.0-51.0 % Monocytes (%) (Auto) 6.5 3.0-13.0 % Eosinophils (%) (Auto) 2.7 0.0-8.0 % Basophils (%) (Auto) 0.1 0.0-5.0 % Neutrophils # (Auto) 6.1 1.8-7.7 K/uL Lymphocytes # (Auto) 2.0 1.0-4.8 K/uL Monocytes # (Auto) 0.6 0.1-1.0 K/uL Eosinophils # (Auto) 0.24 0.00-0.70 K/uL Basophils # (Auto) 0.01 0.00-0.20 K/uL Absolute Immature Granulocyte (auto 0.10 0-1 K/uL Nucleated Red Blood Cells 0.0 0.0-0.19 % Chemistry Labs: Test 01/27/25 10:58 01/26/25 05:51 Range/Units Whole Blood Glucose 183 #H 70-110 MG/DL Sodium Level 138 136-145 mmol/L Potassium Level 3.8 3.5-5.1 mmol/L Chloride Level 106 101-111 mmol/L Carbon Dioxide Level 25 21-32 mmol/L Blood Urea Nitrogen 21 H 7-18 mg/dL Creatinine 1.1 0.5-1.3 mg/dL Glomerular Filtration Rate Calc 85 >90 mL/min Random Glucose 104 70-105 mg/dL Total Calcium 8.1 L 8.5-10.1 mg/dL Coagulation Labs: Test 01/26/25 15:05 01/26/25 06:56 Range/Units D-Dimer Quantitative (PE/DVT) 1694 *H 0-500 ng/mL Prothrombin Time 11.4 9.6-11.6 SEC Prothromb Time International Ratio 1.08 0.85-1.15 Activated Partial Thromboplast Time 36.3 H 26.3-35.5 SEC DIAGNOSTICS / RADIOLOGY RESULTS: [ ] PLAN NEURO: Minimize central acting medications as possible. Maintain fall precautions, adequate lighting during the day PULMONARY: Supplemental 02 as needed. Maintain aspiration precautions at all times CARDIOVASCULAR: Follow hemodynamics. Vital signs per facility protocol GI & NUTRITION: Continue with nutritional support. Continue stool softeners and laxatives as needed. KIDNEYS & ELECTROLYTES: Strict monitoring of intake, output and overall fluid balance. Avoid nephrotoxic medications to the extent possible. Medications to be dosed according to renal function. Monitor electrolytes and replace as needed ENDOCRINE: Maintain blood glucose between 100-180 at all times. Hypoglycemia protocol in place INFECTIOUS DISEASE: Trend temperature, WBC and procalcitonin level Follow cultures, deescalate antibiotics as soon as possible. Panculture if new onset fever ONCOLOGY/HEMATOLOGY/COAGULATION: Monitor for s/s of bleeding Monitor hemoglobin, coagulation studies as needed SKIN: Pressure ulcer prevention per facility protocol Specialty mattress ORTHO/REHAB: Continue PT/OT Prophylaxis: Continue GI and DVT prophylaxis Code Status: Full Resuscitation Dispo: As per attending Total time spent greater than 35 minutes MARITZA HORNER Jan 27, 2025 17:02
[2025-01-27 17:08] LABS: HEMATOCRIT 25.7 % (42-54)
--- NOTE | 2025-01-27 20:56 | PN ---
[facility] PROGRESS NOTE Date of Service: Jan 26, 2025 Time of Service: 20:55 SUBJECTIVE: [ ] The patient has been seen and examined at bedside, no acute events overnight, the patient is comfortable, cooperating well, alert oriented x3, he is on a CIWA protocol, not combative. BP 123/70, rest of vital signs unremarkable. Patient received transfusion of 1 unit of platelet, platelet count improved to 27, per byproduct engineer, likely due to splenomegaly. Echocardiogram reviewed, hypodense echogenic mobile vegetation to right coronary cusp leaflet, per cardiology once platelet count is greater than 50 1000 we will proceed with a a DRAKE. The pa tient also with a elevated blood sugar, continue insulin sliding scale, add insulin glargine 20 units subcutaneously at bedtime. Continue the patient on broad-spectrum IV antibiotics, continue to trend WBC in a.m.. 01/07 patient is seen and examined at bedside, case discussed with the RN, patient upgraded last night to the ICU to start insulin drip as blood glucose per sistently greater than 400. Patient started on dexamethasone IV by byproduct engineer do to ITP. Platelet count slightly better today at 41. Upon my initial encounter with the patient admitted that he drinks more than 18 beers per day. He was started on CIWA protocol, however has remained hemodynamically stable, comfortable in bed, no signs of withdrawal, cooperating fine. Not agitated, not combative. Toxicology screen positive for cocaine. Sodium level slowly improvi ng, today 132. Serology positive for influenza type A. The patient with significant proteinuria consistent with diabetic nephropathy, creatinine slowly trending down, no need for renal replacement therapy per supervisor toy parts former. Patient with blood culture positive for Staphylococcus aureus, with urine culture positive for Klebsiella pneumoniae. We will add vancomycin IV pharmacy to dose. We will request Infectious Disease consultation. Echocardiogram reviewed, hypodense echogenic mobile vegetation to right coronary cusp leaflet, per cardiology once platelet count is greater than 50 1000 we will proceed with a a DRAKE. CT abdomen with gallstones in the gallbladder. HIDA scan pending 01/08 patient seen at bedside, no acute events overnight. He continues on insulin drip with an anion gap of 14, we will continue until the gap is closed. P latelets 54, we will follow up with Cardiology on optimal timing for DRAKE. Continue with IV antibiotics, further care per critical Care. 2/10 patient seen at bedside, no acute events overnight. Anion gap is still open at 14, we will continue IV insulin. Platelets improved from 54 up to 71, CO2 decreased from 17 down to 15. Cardiology planning on DRAKE today, we will follow up postprocedure. Repeat blood cultures are positive for Gram-positive organisms which further supports underlying endocarditis. Continue with IV antibiotics, appreciate Infectious Disease recommendations. He has been afebrile, hemodynamically stable saturating well on room air. WBC increased from 12.8 up to 13.6, BUN decreased from 93 down to 90, creatinine decreased from 2.5 down to 2.3, remainder of his labs are relatively unremarkable. 01/10 Pt seen at bedside, no acute events overnight. Pt with anion gap of 14, CO2 still low at 16. Repeat lactic acid was ordered, elevated at 4.8, will bolus patient and continue with IV fluids. DRAKE was rescheduled to today, will follow up with results.WBC improved from 13.6 down to 11.7, Hgb decreased from 15.1 down to 12.4, platelets decreased from 71 down to 66, this substantial decrease in all cell lines suggests hemodilution, creatinine decreased from 2.2 down to 1.4, also likely falsely depressed. 01/11 Pt seen at bedside, no acute events overnight. Pending EGD to assess for esophageal varices and DRAKE today, will follow up post procedure. Yesterday repeat lactic acid was elevated at 4.8, the patient was bolused and it improved down to 1.3. He has been afebrile, hemodynamically stable, saturating well on room air. WBC increased from 11.7 up to 12.5, platelets improved from 66 up to 113, creatinine increased from 1.6 up to 1.8, CO2 improved from 17 up to 22 after patient was started on bicarb. Third set of blood cultures growing gram positive organisms 01/12 patient is seen and examined at bedside, case discussed with the RN, no acute events overnight, remains on broad-spectrum IV antibiotics, alert oriented x3, following commands. Patient underwent DRAKE 01/11, tolerated well, LVEF 60- 65%, no left ventricle thrombus noted. Right ventricle is severely dilated. Left atrial appendage clot present. No mass or thrombus in the left atrium. No mass or thrombus in the right atrium. Aortic valve is trileaflet, opens well, non coronary cusp leaflet has vegetation that measures 1.8 x 1.1 cm. No mitral valve vegetation, no tricuspid valve vegetation, no pulmonic valve vegetation. Finding discussed with the patient, all questions answered. 01/13 patient is seen and examined at bedside, case discussed with the RN, no acute events overnight, during my visit the patient comfortably in bed, hemodynamically stable, alert oriented x3, getting IV antibiotics, denies chest pain, no shortness a breath, no nausea, no vomiting. 01/14 patient is seen and examined at bedside, downgraded to the medical floor, case discussed with the RN, patient hemodynamically stable, alert oriented x3, on heparin drip, no chest pain, no shortness a breath, no nausea, no vomiting. 01/15 patient is seen and examined bedside, case discussed with the RN, no acute events overnight. Patient with blood culture positive for Staphylococcus aureus, with urine culture positive for Klebsiella pneumoniae. Patient underwent DRAKE 01/11, tolerated well, LVEF 60-65%, no left ventricle thrombus noted. Right ventricle is severely dilated. Left atrial appendage clot present. No mass or thrombus in the left atrium. No mass or thrombus in the right atrium. Aortic valve is trileaflet, opens well, non coronary cusp leaflet has vegetation that measures 1.8 x 1.1 cm. No mitral valve vegetation, no tricuspid valve vegetation, no pulmonic valve vegetation. Continue heparin drip. Patient evaluated by Cardiothoracic surgeon. Medical management recommended for now. Re-evaluate possibility of aortic valve replacement in the near future. 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 Continue to follow Hematology input and recommendation Discharge plan discussed with case management, patient is uninsured, probably will have to remain admitted until completion of IV antibiotic course. 01/16 Pt seen at bedside, no acute events overnight. Most recent blood cultures are no growth to date. CV surgery suggesting aortic valve replacement may be feasible if patient recent blood cultures no growth for another 5 days. If valve replacement will not be done, patient will need to complete full course of IV antibiotics before discharge as he is unfunded. Vitals and labs are relatively unremarkable 01/17 patient seen at bedside, no acute events overnight. Most recent blood cultures are growing Gram-positive organism, we will continue with IV antibiotics. Antibiotics have been adjusted by Infectious Disease, surgery will be held. 01/18 patient seen at bedside, no acute events overnight. Continue with broad- spectrum antibiotics, we will follow up with cardiovascular surgery regarding possible surgery once infection better controlled. Discussed case with byproduct engineer who recommends heparin drip however patient we will need to be anticoagulated on discharge and given his own fundus status we will likely need to be started on warfarin. Vitals and labs relatively unremarkable. 01/19 patient seen at bedside, no acute events overnight. Continue with broad- spectrum antibiotics, we will follow up with cardiovascular surgery regarding possible surgery once infection better controlled. Patient started on eliquis. Hgb decreased from 9.6 down to 9.0, Vitals and labs otherwise relatively unremarkable. 01/20 patient seen at bedside, no acute events overnight. Continue with broad- spectrum antibiotics, we will follow up with cardiovascular surgery regarding possible surgery once infection better controlled. Patient started on eliquis. Hgb decreased from 9.0 down to 8.5, Vitals and labs otherwise relatively unremarkable. 01/21 Pt seen at bedside, no acute events overnight. Continue broad spectrum an tibiotics. Lab holiday today, continue with anticoagulation and broad spectrum antibiotics. 01/22 Pt seen at bedside, no acute events overnight. Continue broad spectrum antibiotics. Lab holiday today, continue with anticoagulation and broad spectrum antibiotics. 01/23/25 patient was seen and examined. Case discussed with the RN. No acute overnight events reported. Continue with the antibiotics 01/24/25 Pt seen at bedside, no acute events overnight. Continue broad spectrum antibiotics. check labs /continue with anticoagulation and broad spectrum antibiotics. 01/25/25 patient was seen and examined. Case discussed with the RN. No acute overnight events reported. Continue with the antibiotics 01/26/25 patient was seen and examined. Case discussed with the RN. No acute overnight events reported. Continue with the antibiotics 01/27/25 Pt seen at bedside, no acute events overnight. Continue broad spectrum antibiotics. check labs /continue with anticoagulation and broad spectrum antibiotics REVIEW OF SYSTEMS 12 point review of systems negative unless noted in HPI PHYSICAL EXAM GENERAL APPEARANCE: The patient is awake, alert, and oriented, in no acute cardiopulmonary distress. NEUROLOGICAL: Cranial nerves II-XII grossly intact. Motor is 5/5 in bilateral upper and lower extremities proximal to distal. No sensory deficits. HEENT: Face is symmetric. Pupils are equal and reactive. Extraocular movements are intact. NECK: Supple. No JVD. No thyromegaly. No submental, submandibular, pre- /postauricular, occipital or supraclavicular lymphadenopathy. CHEST: Normal chest expansion. No Telemetry. LUNGS: Absence of any rales, rhonchi or any wheezing. CARDIOVASCULAR: Regular. S1 and S2 normal. No appreciable rubs, murmurs or gallops. ABDOMEN: Soft, nontender, and nondistended. There is no rebound, voluntary guarding, or rigidity. : Deferred. No Ortega. EXTREMITIES: Non-edematous and not cyanotic. No clubbing. Good capillary refill. SKIN: No skin breakdown. Vital Signs (last 8hr) Date Time Temp Pulse Resp B/P (MAP) Pulse Ox O2 Delivery O2 Flow Rate FiO2 01/27/25 19:00 98.1 89 20 145/76 100 Room Air 01/27/25 15:10 98.1 89 18 148/79 100 Room Air 21 LABS: Laboratory: Test 01/27/25 19:39 01/27/25 16:55 01/26/25 15:05 01/26/25 06:56 Range/Units Whole Blood Glucose 231 H 70-110 MG/DL Hemoglobin 8.6 L 14.0-18.0 g/dL Hematocrit 25.7 L 42-54 % D-Dimer Quantitative (PE/DVT) 1694 *H 0-500 ng/mL Prothrombin Time 11.4 9.6-11.6 SEC Prothromb Time International Ratio 1.08 0.85-1.15 Activated Partial Thromboplast Time 36.3 H 26.3-35.5 SEC Test 01/26/25 05:51 Range/Units White Blood Count 9.1 4.8-10.8 K/uL Red Blood Count 2.70 L 4.50-6.20 MIL/uL Mean Corpuscular Volume 97.0 79-99 fL Mean Corpuscular Hemoglobin 31.9 27.0-33.0 pg Mean Corpuscular Hemoglobin Concent 32.8 32.0-36.0 g/dL Red Cell Distribution Width 14.4 11.0-15.5 % Platelet Count 186 # 130-400 K/uL Mean Platelet Volume 10.1 7.5-10.5 fL Immature Granulocyte % (Auto) 1.1 H 0-1 % Neutrophils (%) (Auto) 67.4 40.0-77.0 % Lymphocytes (%) (Auto) 22.2 21.0-51.0 % Monocytes (%) (Auto) 6.5 3.0-13.0 % Eosinophils (%) (Auto) 2.7 0.0-8.0 % Basophils (%) (Auto) 0.1 0.0-5.0 % Neutrophils # (Auto) 6.1 1.8-7.7 K/uL Lymphocytes # (Auto) 2.0 1.0-4.8 K/uL Monocytes # (Auto) 0.6 0.1-1.0 K/uL Eosinophils # (Auto) 0.24 0.00-0.70 K/uL Basophils # (Auto) 0.01 0.00-0.20 K/uL Absolute Immature Granulocyte (auto 0.10 0-1 K/uL Nucleated Red Blood Cells 0.0 0.0-0.19 % Sodium Level 138 136-145 mmol/L Potassium Level 3.8 3.5-5.1 mmol/L Chloride Level 106 101-111 mmol/L Carbon Dioxide Level 25 21-32 mmol/L Blood Urea Nitrogen 21 H 7-18 mg/dL Creatinine 1.1 0.5-1.3 mg/dL Glomerular Filtration Rate Calc 85 >90 mL/min Random Glucose 104 70-105 mg/dL Total Calcium 8.1 L 8.5-10.1 mg/dL Current Medications Medications (Trade) Dose Ordered Sig/Asya Route PRN Reason Start Time Stop Time Status Last Admin Dose Admin Acetaminophen (TYLenol 325MG TAB) 650 mg Q6H PRN PO MILD PAIN (1-3) 01/16/25 17:30 02/15/25 17:29 01/26/25 22:18 650 MG Acetaminophen (TYLenol 325MG TAB) 650 mg Q6H PRN PO TEMPERATURE GREATER THAN 101.5 01/05/25 02:30 02/04/25 02:29 01/25/25 17:03 650 MG Apixaban (EliquIS) 5 mg BID PO 01/21/25 21:00 01/23/25 10:57 DC 01/22/25 09:02 5 MG Apixaban (EliquIS) 5 mg BID PO 01/23/25 21:00 01/27/25 10:16 DC 01/27/25 09:01 5 MG Apixaban (EliquIS) 5 mg BID PO 01/25/25 21:00 01/21/25 16:00 DC Apixaban (EliquIS) 10 mg BID PO 01/18/25 21:00 01/18/25 13:52 DC Apixaban (EliquIS) 10 mg BID PO 01/18/25 21:00 01/21/25 16:00 DC 01/21/25 08:45 10 MG Aspirin (Aspirin 81mg Chew Tab) 81 mg DAILY PO 01/05/25 09:00 01/05/25 09:53 DC Aspirin (Aspirin 81mg Ec Tab) 81 mg DAILY PO 01/16/25 09:00 01/26/25 10:14 DC 01/25/25 09:45 81 MG Benzocaine (Cepacol Sore Throat Lozenge) 1 each Q4H PRN MM SORE THROAT 01/05/25 02:30 02/04/25 02:29 Calcium Gluconate 1 gm/Sodium Chloride 100 ml @ 0 mls/hr AD PRN IV Serum Calcium Correction 01/08/25 02:30 02/07/25 02:29 01/08/25 23:32 90 MLS/HR Cefazolin Sodium (Ancef) 2 gm Q12H IVPB 01/07/25 13:30 01/16/25 14:43 DC 01/16/25 01:12 2 GM Cefazolin Sodium (Ancef) 2 gm Q8H IVPB 01/16/25 21:30 01/17/25 13:22 DC 01/17/25 05:07 2 GM Chlordiazepoxide HCl (LIBrium 25 MG CAP) 25 mg Q8H PO 01/05/25 02:30 01/11/25 11:39 DC 01/10/25 22:23 25 MG Chlordiazepoxide HCl (LIBrium 25 MG CAP) 25 mg Q8H PRN PO WITHDRAWAL 01/11/25 12:00 01/12/25 02:29 DC Dexamethasone Sodium Phosphate 10 mg/Sodium Chloride 51 ml @ 100 mls/hr DAILY IV 01/28/25 09:00 02/27/25 08:59 Dexamethasone Sodium Phosphate 20 mg/Sodium Chloride 52 ml @ 100 mls/hr DAILY IV 01/09/25 09:00 01/27/25 19:04 DC 01/27/25 09:16 100 MLS/HR Dexamethasone Sodium Phosphate 40 mg/Sodium Chloride 50 ml @ 100 mls/hr DAILY IV 01/06/25 14:00 01/08/25 12:16 DC 01/08/25 09:34 100 MLS/HR Dextrose (D50w) 50 ml AD PRN IV HYPOGLYCEMIA PROTOCOL 01/05/25 10:00 02/04/25 09:59 Doxycycline Hyclate 250 ml @ 125 mls/hr Q12H IV 01/05/25 10:00 01/06/25 21:05 DC 01/06/25 09:30 125 MLS/HR Doxycycline Hyclate 250 ml @ 125 mls/hr Q12H IV 01/06/25 21:30 01/16/25 14:23 DC 01/16/25 10:13 125 MLS/HR Fluconazole (DiFLUCan 100 mg TAB) 200 mg DAILY PO 01/12/25 09:00 01/25/25 16:12 DC 01/25/25 09:44 200 MG Folic Acid (FOLic ACID 1 MG TABLET) 1 mg DAILY PO 01/07/25 10:30 02/06/25 10:29 01/27/25 09:01 1 MG Furosemide (LASix 20MG VIAL) 20 mg BIDPC IV 01/25/25 10:00 01/26/25 18:01 DC 01/26/25 18:06 20 MG Furosemide (LASix 20MG VIAL) 20 mg Q12H IV 01/07/25 16:00 01/11/25 00:56 DC 01/10/25 19:40 20 MG Gentamicin Sulfate 150 mg/ Sodium Chloride 100 ml @ 100 mls/hr Q12H IV 01/20/25 16:00 01/22/25 03:27 DC 01/21/25 16:00 100 MLS/HR Gentamicin Sulfate 90 mg/ Sodium Chloride 50 ml @ 100 mls/hr Q8H IV 01/22/25 03:30 01/22/25 03:30 DC Gentamicin Sulfate 90 mg/ Sodium Chloride 50 ml @ 100 mls/hr Q8H IV 01/22/25 04:00 01/23/25 20:03 DC 01/23/25 12:54 100 MLS/HR Gentamicin Sulfate/Sodium Chloride 100 ml @ 200 mls/hr BID@0600,1800 IV 01/24/25 06:00 01/25/25 16:12 DC 01/25/25 05:48 200 MLS/HR Gentamicin Sulfate/Sodium Chloride 100 ml @ 200 mls/hr Q12H IV 01/16/25 15:30 01/18/25 03:39 DC 01/17/25 16:00 200 MLS/HR Gentamicin Sulfate/Sodium Chloride 100 ml @ 200 mls/hr Q12H IV 01/18/25 04:00 01/20/25 06:41 DC 01/20/25 05:38 200 MLS/HR Glucagon (Glucagon 1mg Kit) 1 mg AD PRN IM HYPOGLYCEMIA PROTOCOL 01/05/25 10:00 02/04/25 09:59 Heparin Sodium/ Dextrose 250 ml @ 0 mls/hr PROTOCOL IV 01/11/25 14:30 01/18/25 13:28 DC 01/17/25 16:09 13.99 MLS/HR Hydralazine HCl (APRESOLine 20MG INJ) 5 mg Q6H PRN IV For:SBP above 160;DBP above 90 01/05/25 14:30 02/04/25 14:29 01/10/25 22:24 5 MG Hydralazine HCl (APRESOLine 20MG INJ) 10 mg Q6H PRN IV For:SBP above 160;DBP above 90 01/05/25 02:30 01/05/25 09:53 DC Insulin Glargine (LANtus 100 UNITS/ML 10 ML VIAL) 15 units DAILY SQ 01/24/25 09:00 02/23/25 08:59 01/27/25 09:13 15 UNITS Insulin Glargine (LANtus 100 UNITS/ML 10 ML VIAL) 15 units Q12H SQ 01/07/25 21:30 01/09/25 23:18 DC 01/09/25 13:10 15 UNITS Insulin Glargine (LANtus 100 UNITS/ML 10 ML VIAL) 20 units DAILY SQ 01/14/25 09:00 01/23/25 21:37 DC 01/23/25 09:41 20 UNITS Insulin Glargine (LANtus 100 UNITS/ML 10 ML VIAL) 20 units HS SQ 01/06/25 21:00 01/06/25 21:05 DC Insulin Glargine (LANtus 100 UNITS/ML 10 ML VIAL) 20 units HS SQ 01/06/25 21:30 01/07/25 10:24 DC 01/06/25 21:33 20 UNITS Insulin Glargine (LANtus 100 UNITS/ML 10 ML VIAL) 20 units Q12H SQ 01/10/25 09:30 01/10/25 12:58 DC Insulin Glargine (LANtus 100 UNITS/ML 10 ML VIAL) 25 units Q12H SQ 01/10/25 21:30 01/11/25 00:50 DC 01/10/25 22:19 25 UNITS Insulin Glargine (LANtus 100 UNITS/ML 10 ML VIAL) 30 units DAILY SQ 01/12/25 09:00 01/14/25 07:03 DC 01/12/25 11:25 30 UNITS Insulin Glargine (LANtus 100 UNITS/ML 10 ML VIAL) 30 units Q12H SQ 01/11/25 09:30 01/11/25 20:13 DC 01/11/25 10:50 30 UNITS Insulin Human Regular (humuLIN R 100 UNIT/ML 3ML) 5 unit TIDAC SQ 01/14/25 07:30 02/13/25 07:29 01/27/25 17:52 5 UNIT Insulin Human Regular (humuLIN R 100 UNIT/ML 3ML) 8 unit TIDAC SQ 01/11/25 07:30 01/14/25 07:03 DC 01/13/25 19:47 8 UNIT Insulin Human Regular (humuLIN R 100 UNIT/ML 3ML) INSULIN SLIDING SCAL... ACHS SQ 01/18/25 21:00 02/17/25 20:59 01/27/25 17:52 6 UNIT Insulin Human Regular (humuLIN R 100 UNIT/ML 3ML) INSULIN SLIDING SCAL... ACHS SQ 01/05/25 07:30 01/05/25 09:57 DC 01/05/25 07:59 16 UNIT Insulin Human Regular (humuLIN R 100 UNIT/ML 3ML) INSULIN SLIDING SCAL... ACHS SQ 01/05/25 11:30 01/06/25 16:43 DC 01/06/25 11:50 8 UNIT Insulin Human Regular (humuLIN R 100 UNIT/ML 3ML) INSULIN SLIDING SCAL... ACHS SQ 01/06/25 17:00 01/07/25 13:32 DC 01/06/25 17:17 16 UNIT Insulin Human Regular (humuLIN R 100 UNIT/ML 3ML) INSULIN SLIDING SCAL... Q4H SQ 01/11/25 02:00 01/11/25 23:59 DC 01/11/25 20:49 6 UNIT Insulin Human Regular (humuLIN R 100 UNIT/ML 3ML) INSULIN SLIDING SCAL... Q4H SQ 01/11/25 23:59 01/18/25 19:33 DC 01/18/25 16:59 4 UNIT Insulin Human Regular (humuLIN R 100 UNIT/ML 3ML) INSULIN SLIDING SCAL... Q6H6 SQ 01/10/25 18:00 01/11/25 00:50 DC 01/11/25 00:45 10 UNIT Insulin Human Regular 100 unit/ Sodium Chloride 100 ml @ 0 mls/hr AD PRN IV HYPERGLYCEMIA PROTOCOL 01/06/25 19:30 01/10/25 06:00 DC 01/09/25 19:10 16 MLS/HR Iron Sucrose (VenoFER) 300 mg Q24H IVP 01/21/25 15:00 01/21/25 15:29 DC Iron Sucrose 300 mg/Sodium Chloride 250 ml @ 166.667 mls/hr Q24H IV 01/21/25 16:00 01/21/25 17:22 DC Iron Sucrose 300 mg/Sodium Chloride 250 ml @ 166.667 mls/hr Q24H IV 01/21/25 19:30 01/21/25 20:57 DC Iron Sucrose 300 mg/Sodium Chloride 250 ml @ 166.667 mls/hr Q24H IV 01/21/25 21:00 01/23/25 22:29 DC 01/23/25 20:56 166.667 MLS/HR Lactated Ringer's 1,000 ml @ 100 mls/hr Q10H IV 01/05/25 02:30 01/05/25 09:51 DC 01/05/25 02:30 100 MLS/HR Lactated Ringer's 1,000 ml @ 125 mls/hr Q8H IV 01/10/25 01:30 01/10/25 19:40 DC 01/10/25 13:07 125 MLS/HR Lactobacillus Rhamnosus ([facility] [employer]) 1 each DAILY PO 01/12/25 09:00 02/11/25 08:59 01/27/25 09:00 1 EACH Lidocaine (Lidoderm Patch 5%) 1 patch DAILY TP 01/25/25 12:00 02/24/25 11:59 01/27/25 09:03 1 PATCH Linezolid 300 ml @ 300 mls/hr Q12H IV 01/25/25 20:30 02/04/25 20:29 01/27/25 09:03 300 MLS/HR Lorazepam (AtiVAN) 1 mg Q4H PRN IVP ALCOHOL WITHDRAWAL PROTOCOL 01/05/25 02:30 01/12/25 02:29 DC Magnesium Sulfate 50 ml @ 0 mls/hr PROTOCOL PRN IV h 01/05/25 02:30 02/04/25 02:29 01/25/25 10:44 25 MLS/HR Melatonin (Melatonin) 10 mg HS PRN PO INSOMNIA 01/21/25 21:30 02/20/25 21:29 01/26/25 22:18 10 MG Morphine Sulfate (morPHINE 2MG SYG) 2 mg Q4H PRN IVP SEVERE PAIN (7-10) 01/05/25 02:30 01/12/25 02:29 DC Multivitamins Therapeutic (Multivitamin Tablet) 1 tab DAILY PO 01/07/25 10:30 02/06/25 10:29 01/27/25 09:01 1 TAB Nafcillin Sodium (Nafcillin 2gm+ NS 100ml) 2 gm Q6H6 IV 01/17/25 18:00 01/25/25 16:12 DC 01/25/25 12:18 2 GM Nicotine (Nicoderm) 21 mg DAILY TD 01/05/25 09:00 02/04/25 08:59 01/27/25 09:03 21 MG Nitroglycerin (Nitrostat) 0.4 mg AD PRN SL CHEST PAIN 01/05/25 02:30 02/04/25 02:29 Nystatin (NYSTatin 456368 UNIT/ML 5ML UDCUP) 100,000 UNITS 1 ML TO E... QID PO 01/18/25 09:00 02/17/25 08:59 01/27/25 17:55 5 ML Ondansetron HCl (zoFRAN 4MG INJ) 4 mg Q6H PRN IV NAUSEA/VOMITING 01/05/25 02:30 02/04/25 02:29 Pantoprazole Sodium (PROTonix 40MG INJ) 40 mg Q24H IVP 01/26/25 04:30 02/25/25 04:29 01/27/25 04:40 40 MG Pantoprazole Sodium (PROTonix 40MG TAB) 40 mg DAILY PO 01/05/25 09:00 01/26/25 04:16 DC 01/25/25 09:45 40 MG Pharmacy Profile Note (Pharmacy Communication) 1 each ONCE MISC 01/16/25 14:30 01/16/25 15:12 DC Pharmacy Profile Note (Pharmacy Communication) 1 each ONCE MISC 01/25/25 07:30 01/25/25 07:26 DC Pharmacy Profile Note (Pharmacy Communication) 1 each ONCE MISC 01/25/25 16:30 01/25/25 16:12 DC Pharmacy Profile Note (Pharmacy Communication) 1 each PROTOCOL PRN MISC ETOH Withdrawal Score changes 01/05/25 02:30 01/12/25 02:29 DC Piperacillin Sod/ Tazobactam Sod (Zosyn 3.375gm+NS 50ml) 3.375 gm Q12H IV 01/05/25 02:30 01/07/25 13:24 DC 01/07/25 02:45 3.375 GM Potassium Phosphate 250 ml @ 42 mls/hr PROTOCOL PRN IV PROTOCOL 01/05/25 10:00 02/04/25 09:59 Potassium Chloride 100 ml @ 100 mls/hr AD PRN IV POTASSIUM PROTOCOL 01/05/25 02:30 01/07/25 10:12 DC Potassium Chloride 100 ml @ 100 mls/hr AD PRN IV POTASSIUM PROTOCOL 01/07/25 10:30 02/06/25 10:29 01/09/25 06:26 100 MLS/HR Potassium Chloride (K-Dur 10meq Sr Tab) 10 meq AD PRN PO POTASSIUM PROTOCOL 01/06/25 09:30 02/04/25 02:29 01/08/25 23:35 10 MEQ Potassium Chloride (K-Dur/Klor-Con 20meq) 10 meq AD PRN PO POTASSIUM PROTOCOL 01/05/25 02:30 01/06/25 09:12 DC 01/05/25 22:15 10 MEQ Potassium Chloride (K-Dur/Klor-Con 20meq) 10 meq AD PRN PO POTASSIUM PROTOCOL 01/07/25 10:30 01/07/25 10:12 DC Potassium Chloride (KCl 10% Elixir 20meq/15ml) 10 meq AD PRN PO POTASSIUM PROTOCOL 01/05/25 02:30 01/07/25 10:12 DC 01/06/25 17:16 10 MEQ Potassium Chloride (KCl 10% Elixir 20meq/15ml) 10 meq AD PRN PO POTASSIUM PROTOCOL 01/07/25 10:30 02/06/25 10:29 01/23/25 15:27 10 MEQ Sodium Bicarbonate (Sodium Bicarbonate) 1,300 mg BID PO 01/11/25 09:00 02/10/25 08:59 01/27/25 09:01 1,300 MG Sodium Chloride 1,000 ml @ 50 mls/hr Q20H IV 01/05/25 10:00 01/10/25 01:33 DC 01/09/25 05:56 50 MLS/HR Sodium Chloride 1,000 ml @ 75 mls/hr [id number] IV 01/11/25 01:00 01/11/25 13:45 DC 01/11/25 01:00 75 MLS/HR Triamcinolone Acetonide (Kenalog/ Aristocort) 1 APPLY TP BID BID TP 01/07/25 11:00 02/06/25 10:59 01/27/25 09:04 1 APPL Vancomycin HCl (Vancomycin Protocol) 1 each AD IV 01/07/25 12:30 01/07/25 12:40 DC DIAGNOSTICS / RADIOLOGY: [ ] ASSESSMENT: Severe sepsis, resolved POA Gram-positive bacteremia secondary to Staphylococcus aureus, POA Hypodense echogenic mobile vegetation to right coronary cusp leaflet on echocardiogram 01/05/2025 Left atrial appendage clot present. on DRAKE 01/11 non coronary cusp leaflet has vegetation that measures 1.8 x 1.1 cm. on DRAKE 01/11 Urinary tract infection, secondary to Klebsiella pneumoniae, POA Strep pharyngitis, POA ITP, POA Leukocytosis, POA Hyperlactatemia, POA Acute kidney injury, POA Hypokalemia, POA Hyponatremia, POA Hypomagnesemia, POA POA New onset Uncontrolled Diabetes mellitius type2, POA Elevated troponin, POA Cocaine abuse, POA Alcohol abuse, POA Tobacco dependence, POA Significant proteinuria, POA Diabetic nephropathy, POA Gallstones, POA Fidelina esophagitis on EGD 01/11 PLAN: -patient remains admitted to the medical floor. -continue the patient on broad-spectrum IV antibiotics -results of DRAKE reviewed, Left atrial appendage clot present. on DRAKE 01/11, aortic valve is trileaflet, opens well. Non coronary cusp leaflet has vegetation that measures 1.8 x 1.1 cm. on DRAKE 01/11 -continue heparin drip. Patient already evaluated by Cardiothoracic surgeon, continue medical management, we will re-evaluate possibility of aortic valve replacement in the near future. 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 Continue to follow Hematology input and recommendation -renal function slightly improved today, patient evaluated by supervisor [employer] former, the patient with significant proteinuria on UA consistent with diabetic nephropathy. No acute need for any form of renal replacement therapy. -blood culture positive for Staphylococcus aureus. Urine culture positive for Klebsiella pneumoniae. Continue broad-spectrum IV antibiotics, continue to follow ID input recommendation. -case discussed with case management, patient to complete course of IV antibiotics likely during this hospitalization as the patient is uninsured. Disposition: Pending improvement in clinical condition. All questions answered time spent: > 35 min PUJA DOMINGUEZ MD Jan 27, 2025 20:56
--- NOTE | 2025-01-27 21:39 | PN ---
endocrinology progress note dos: 01/27/25 subjective: he is off insulin drip and on insulin injections. glucose control is improving but elevated now due to skipping of premeal insulin. hba1c 8.5% Past Medical History Patient History: Patient reports no known family medical history. ADDITIONAL PAST MEDICAL HISTORY: [Denies any past medical history, fatty liver by CT on 01/05/2025] SOCIAL HISTORY: [Patient smokes one pack of cigarettes daily but only5 times a week. Patient [id number] beers daily but also only5 times a week. Patient reports occasional use of both marijuana and cocaine. Patient denies any other illegal drug use. 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 Patient has poor access to health care due to lack of health insurance. Patient is typically independent of all his ADLs. Patient denies difficulty pain is bills. Patient lives with his daughter Hannah Jin] SURGICAL HISTORY: [Heart stent] Allergies: Coded Allergies: No Known Drug Allergies (Unverified Allergy, Unknown, 12/18/15) Scheduled Amlodipine Besylate (Amlodipine Besylate), 5 MG PO DAILY Atorvastatin Calcium (Lipitor), 40 MG PO HS Hydrochlorothiazide (Hydrochlorothiazide), 25 MG PO DAILY Lisinopril (Lisinopril), 20 MG PO DAILY Losartan Potassium (Losartan Potassium), 50 MG PO DAILY Methylprednisolone (Medrol), 4 MG PO AD Tamsulosin HCl (Flomax), 0.4 MG PO DAILY [Aspirin], 325 MG PO DAILY [Prasugrel Hcl], 10 MG PO DAILY Scheduled PRN Ketorolac Tromethamine (Ketorolac Tromethamine), 10 MG PO TID PRN for PAIN ASSESSMENT: DKA-resolved he is off insulin drip. hba1c 8.5% bicarb glucose control is improving but elevated now due to skipping of premeal insulin. New onset Uncontrolled Diabetes mellitus type2, POA Severe sepsis, POA Urinary tract infection, POA Endocarditis and staph bacteremia Strep pharyngitis, POA Leukocytosis, POA Hyperlactatemia, POA Acute kidney injury, POA Thrombocytopenia, POA Elevated troponin, POA Substance abuse, POA, cocaine Alcohol dependence, POA Tobacco dependence, POA PLAN: continue lantus 15 units daily continue regular insulin 5 units qac before meals continue medium dose ssi keep glucose less than 180 mg/dl monitor glucose [id number]. patient will need insulin at discharge. Vitals/Labs Vital Signs Date Time Temp Pulse Resp B/P (MAP) Pulse Ox O2 Delivery O2 Flow Rate FiO2 01/27/25 19:00 98.1 89 20 145/76 100 Room Air 01/27/25 15:10 21 01/27/25 08:00 0 Laboratory Tests 01/27/25 01:20 01/27/25 09:09 01/27/25 16:55 Medications Current Medications Sodium Chloride 1,000 ml @ 125 mls/hr ONCE ONCE IV Last administered on 01/05/25 00:13; Start 01/04/25 at 23:00; Stop 01/05/25 at 06:59; Status DC Aspirin 81 mg ONCE ONCE PO Last administered on 01/05/25at 00:14; Start 01/04/25 at 23:00; Stop 01/04/25 at 23:01; Status DC Ondansetron HCl 4 mg ONCE ONCE IVP Last administered on 01/05/25at 00:13; Start 01/04/25 at 23:00; Stop 01/04/25 at 23:01; Status DC Potassium Chloride 100 ml @ 50 mls/hr ONCE ONCE IV Last administered on 01/05/25at 00:13; Start 01/05/25 at 00:00; Stop 01/05/25 at 01:59; Status DC Potassium Chloride 100 ml @ 50 mls/hr ONCE ONCE IV Last administered on 01/05/25at 03:12; Start 01/05/25 at 00:00; Stop 01/05/25 at 01:59; Status DC Thiamine HCl 100 mg ONCE ONCE IVP Last administered on 01/05/25at 01:01; Start 01/05/25 at 00:00; Stop 01/05/25 at 00:01; Status DC Acetaminophen 500 mg STK-MED ONCE .ROUTE; Start 01/05/25 at 00:28; Stop 01/05/25 at 00:28; Status DC Cefepime HCl 1 gm ONCE ONCE IVPB Last administered on 01/05/25at 01:01; Start 01/05/25 at 01:00; Stop 01/05/25 at 01:02; Status DC Vancomycin HCl 750 mg ONCE ONCE IVPB Last administered on 01/05/25at 02:12; Start 01/05/25 at 01:00; Stop 01/05/25 at 01:02; Status DC Sodium Chloride 250 ml ONCE ONCE IVPB Last administered on 01/05/25at 02:12; Start 01/05/25 at 01:00; Stop 01/05/25 at 01:02; Status DC Acetaminophen 1,000 mg ONCE ONCE PO Last administered on 01/05/25at 00:30; Start 01/05/25 at 01:00; Stop 01/05/25 at 01:02; Status DC Aspirin 81 mg DAILY PO; Start 01/05/25 at 09:00; Stop 01/05/25 at 09:53; Status DC Nitroglycerin 0.4 mg AD PRN SL; Start 01/05/25 at 02:30; Stop 02/04/25 at 02:29 Aspirin 162 mg ONCE ONCE PO Last administered on 01/05/25at 03:06; Start 01/05/25 at 02:30; Stop 01/05/25 at 02:31; Status DC Insulin Human Regular INSULIN SLIDING SCAL... ACHS SQ Last administered on 01/05/25at 07:59; Start 01/05/25 at 07:30; Stop 01/05/25 at 09:57; Status DC Lactated Ringer's 3,429 ml @ 1,143 mls/hr ONCE ONCE IV Last administered on 01/05/25at 03:12; Start 01/05/25 at 02:30; Stop 01/05/25 at 05:29; Status DC Piperacillin Sod/ Tazobactam Sod 3.375 gm Q12H IV Last administered on 01/07/25at 02:45; Start 01/05/25 at 02:30; Stop 01/07/25 at 13:24; Status DC Potassium Chloride 100 ml @ 100 mls/hr AD PRN IV; Start 01/05/25 at 02:30; Stop 01/07/25 at 10:12; Status DC Potassium Chloride 10 meq AD PRN PO Last administered on 01/06/25at 17:16; Start 01/05/25 at 02:30; Stop 01/07/25 at 10:12; Status DC Potassium Chloride 10 meq AD PRN PO Last administered on 01/05/25at 22:15; Start 01/05/25 at 02:30; Stop 01/06/25 at 09:12; Status DC Acetaminophen 650 mg Q6H PRN PO Last administered on 01/25/25at 17:03; Start 01/05/25 at 02:30; Stop 02/04/25 at 02:29 Pantoprazole Sodium 40 mg DAILY PO Last administered on 01/25/25at 09:45; Start 01/05/25 at 09:00; Stop 01/26/25 at 04:16; Status DC Ondansetron HCl 4 mg Q6H PRN IV; Start 01/05/25 at 02:30; Stop 02/04/25 at 02:29 Morphine Sulfate 2 mg Q4H PRN IVP; Start 01/05/25 at 02:30; Stop 01/12/25 at 02:29; Status DC Hydralazine HCl 10 mg Q6H PRN IV; Start 01/05/25 at 02:30; Stop 01/05/25 at 09:53; Status DC Benzocaine 1 each Q4H PRN MM; Start 01/05/25 at 02:30; Stop 02/04/25 at 02:29 Magnesium Sulfate 50 ml @ 0 mls/hr PROTOCOL PRN IV Last administered on 01/25/25at 10:44; Start 01/05/25 at 02:30; Stop 02/04/25 at 02:29 Lactated Ringer's 1,000 ml @ 100 mls/hr Q10H IV Last administered on 01/05/25at 02:30; Start 01/05/25 at 02:30; Stop 01/05/25 at 09:51; Status DC Chlordiazepoxide HCl 25 mg Q8H PO Last administered on 01/10/25at 22:23; Start 01/05/25 at 02:30; Stop 01/11/25 at 11:39; Status DC Lorazepam 1 mg Q4H PRN IVP; Start 01/05/25 at 02:30; Stop 01/12/25 at 02:29; Status DC Pharmacy Profile Note 1 each PROTOCOL PRN MISC; Start 01/05/25 at 02:30; Stop 01/12/25 at 02:29; Status DC Nicotine 21 mg DAILY TD Last administered on 01/27/25at 09:03; Start 01/05/25 at 09:00; Stop 02/04/25 at 08:59 Sodium Chloride 1,000 ml @ 50 mls/hr Q20H IV Last administered on 01/09/25at 05:56; Start 01/05/25 at 10:00; Stop 01/10/25 at 01:33; Status DC Potassium Phosphate 250 ml @ 42 mls/hr PROTOCOL PRN IV; Start 01/05/25 at 10:00; Stop 02/04/25 at 09:59 Hydralazine HCl 5 mg Q6H PRN IV Last administered on 01/10/25at 22:24; Start 01/05/25 at 14:30; Stop 02/04/25 at 14:29 Doxycycline Hyclate 250 ml @ 125 mls/hr Q12H IV Last administered on 01/06/25at 09:30; Start 01/05/25 at 10:00; Stop 01/06/25 at 21:05; Status DC Potassium Chloride 40 meq ONCE ONCE PO Last administered on 01/05/25at 10:25; Start 01/05/25 at 10:00; Stop 01/05/25 at 10:01; Status DC Potassium Chloride 100 ml @ 50 mls/hr ONCE ONCE IV Last administered on 01/05/25at 10:25; Start 01/05/25 at 10:00; Stop 01/05/25 at 11:59; Status DC Dextrose 50 ml AD PRN IV; Start 01/05/25 at 10:00; Stop 02/04/25 at 09:59 Glucagon 1 mg AD PRN IM; Start 01/05/25 at 10:00; Stop 02/04/25 at 09:59 Insulin Human Regular INSULIN SLIDING SCAL... ACHS SQ Last administered on 01/06/25at 11:50; Start 01/05/25 at 11:30; Stop 01/06/25 at 16:43; Status DC Dexamethasone Sodium Phosphate 10 mg ONCE ONCE IVP Last administered on 01/05/25at 17:27; Start 01/05/25 at 13:30; Stop 01/05/25 at 14:03; Status DC Insulin Glargine 20 units HS SQ; Start 01/06/25 at 21:00; Stop 01/06/25 at 21:05; Status DC Potassium Chloride 10 meq AD PRN PO Last administered on 01/08/25at 23:35; Start 01/06/25 at 09:30; Stop 02/04/25 at 02:29 Dexamethasone Sodium Phosphate 40 mg DAILY ONCE IV; Start 01/07/25 at 09:00; Stop 01/06/25 at 13:27; Status DC Dexamethasone Sodium Phosphate 40 mg/Sodium Chloride 50 ml @ 100 mls/hr DAILY IV Last administered on 01/08/25at 09:34; Start 01/06/25 at 14:00; Stop 01/08/25 at 12:16; Status DC Insulin Human Regular INSULIN SLIDING SCAL... ACHS SQ Last administered on 01/06/25at 17:17; Start 01/06/25 at 17:00; Stop 01/07/25 at 13:32; Status DC Insulin Human Regular 100 unit/ Sodium Chloride 100 ml @ 0 mls/hr AD PRN IV Last administered on 01/09/25at 19:10; Start 01/06/25 at 19:30; Stop 01/10/25 at 06:00; Status DC Insulin Glargine 20 units HS SQ Last administered on 01/06/25at 21:33; Start 01/06/25 at 21:30; Stop 01/07/25 at 10:24; Status DC Doxycycline Hyclate 250 ml @ 125 mls/hr Q12H IV Last administered on 01/16/25at 10:13; Start 01/06/25 at 21:30; Stop 01/16/25 at 14:23; Status DC Chlordiazepoxide HCl 25 mg STK-MED ONCE .ROUTE; Start 01/07/25 at 02:35; Stop 01/07/25 at 02:41; Status DC Piperacillin Sod/ Tazobactam Sod 50 ml @ As Directed STK-MED ONCE .ROUTE; Start 01/07/25 at 02:39; Stop 01/07/25 at 02:41; Status DC Potassium Chloride 0 ml @ As Directed STK-MED ONCE IV; Start 01/07/25 at 07:28; Stop 01/07/25 at 07:31; Status DC Potassium Chloride 40 meq ONCE ONCE PO Last administered on 01/07/25at 09:44; Start 01/07/25 at 10:00; Stop 01/07/25 at 10:01; Status DC Potassium Chloride 100 ml @ 100 mls/hr AD PRN IV Last administered on 01/09/25at 06:26; Start 01/07/25 at 10:30; Stop 02/06/25 at 10:29 Potassium Chloride 10 meq AD PRN PO Last administered on 01/23/25at 15:27; Start 01/07/25 at 10:30; Stop 02/06/25 at 10:29 Potassium Chloride 10 meq AD PRN PO; Start 01/07/25 at 10:30; Stop 01/07/25 at 10:12; Status DC Insulin Glargine 15 units Q12H SQ Last administered on 01/09/25at 13:10; Start 01/07/25 at 21:30; Stop 01/09/25 at 23:18; Status DC Insulin Glargine 10 units ONCE ONCE SQ Last administered on 01/07/25at 10:40; Start 01/07/25 at 10:30; Stop 01/07/25 at 10:31; Status DC Thiamine HCl 300 mg DAILY ONCE IVP Last administered on 01/07/25at 10:39; Start 01/07/25 at 10:30; Stop 01/07/25 at 10:31; Status DC Multivitamins Therapeutic 1 tab DAILY PO Last administered on 01/27/25at 09:01; Start 01/07/25 at 10:30; Stop 02/06/25 at 10:29 Folic Acid 1 mg DAILY PO Last administered on 01/27/25at 09:01; Start 01/07/25 at 10:30; Stop 02/06/25 at 10:29 Triamcinolone Acetonide 1 APPLY TP BID BID TP Last administered on 01/27/25at 09:04; Start 01/07/25 at 11:00; Stop 02/06/25 at 10:59 Vancomycin HCl 1 each AD IV; Start 01/07/25 at 12:30; Stop 01/07/25 at 12:40; Status DC Cefazolin Sodium 2 gm Q12H IVPB Last administered on 01/16/25at 01:12; Start 01/07/25 at 13:30; Stop 01/16/25 at 14:43; Status DC Furosemide 20 mg Q12H IV Last administered on 01/10/25at 19:40; Start 01/07/25 at 16:00; Stop 01/11/25 at 00:56; Status DC Calcium Gluconate 1 gm/Sodium Chloride 100 ml @ 0 mls/hr AD PRN IV Last administered on 01/08/25at 23:32; Start 01/08/25 at 02:30; Stop 02/07/25 at 02:29 Dexamethasone Sodium Phosphate 20 mg/Sodium Chloride 52 ml @ 100 mls/hr DAILY IV Last administered on 01/27/25at 09:16; Start 01/09/25 at 09:00; Stop 01/27/25 at 19:04; Status DC Insulin Glargine 20 units Q12H SQ; Start 01/10/25 at 09:30; Stop 01/10/25 at 12:58; Status DC Lactated Ringer's 1,000 ml @ 125 mls/hr Q8H IV Last administered on 01/10/25at 13:07; Start 01/10/25 at 01:30; Stop 01/10/25 at 19:40; Status DC Lactated Ringer's 1,000 ml BOLUS ONCE IV Last administered on 01/10/25at 09:20; Start 01/10/25 at 07:30; Stop 01/10/25 at 07:31; Status DC Lidocaine HCl 100 mg STK-MED ONCE .ROUTE; Start 01/10/25 at 08:01; Stop 01/10/25 at 08:02; Status DC Propofol 200 mg STK-MED ONCE IV; Start 01/10/25 at 08:02; Stop 01/10/25 at 08:02; Status DC Glycopyrrolate 1 mg STK-MED ONCE .ROUTE; Start 01/10/25 at 08:02; Stop 01/10/25 at 08:02; Status DC Ketamine HCl 50 mg STK-MED ONCE .ROUTE; Start 01/10/25 at 08:03; Stop 01/10/25 at 08:03; Status DC Insulin Glargine 25 units Q12H SQ Last administered on 01/10/25at 22:19; Start 01/10/25 at 21:30; Stop 01/11/25 at 00:50; Status DC Insulin Human Regular INSULIN SLIDING SCAL... Q6H6 SQ Last administered on 01/11/25at 00:45; Start 01/10/25 at 18:00; Stop 01/11/25 at 00:50; Status DC Insulin Glargine 30 units Q12H SQ Last administered on 01/11/25at 10:50; Start 01/11/25 at 09:30; Stop 01/11/25 at 20:13; Status DC Insulin Human Regular INSULIN SLIDING SCAL... Q4H SQ Last administered on 01/11/25at 20:49; Start 01/11/25 at 02:00; Stop 01/11/25 at 23:59; Status DC Sodium Chloride 1,000 ml @ 75 mls/hr [id number] IV Last administered on 01/11/25at 01:00; Start 01/11/25 at 01:00; Stop 01/11/25 at 13:45; Status DC Sodium Bicarbonate 1,300 mg BID PO Last administered on 01/27/25at 21:28; Start 01/11/25 at 09:00; Stop 02/10/25 at 08:59 Insulin Human Regular 8 unit TIDAC SQ Last administered on 01/13/25at 19:47; Start 01/11/25 at 07:30; Stop 01/14/25 at 07:03; Status DC Lidocaine HCl 100 mg STK-MED ONCE .ROUTE; Start 01/11/25 at 07:00; Stop 01/11/25 at 07:00; Status DC Atropine Sulfate 1 mg STK-MED ONCE IVP; Start 01/11/25 at 07:00; Stop 01/11/25 at 07:00; Status DC Propofol 200 mg STK-MED ONCE IV; Start 01/11/25 at 07:00; Stop 01/11/25 at 07:00; Status DC Succinylcholine Chloride 200 mg STK-MED ONCE .ROUTE; Start 01/11/25 at 07:00; Stop 01/11/25 at 07:00; Status DC Ketamine HCl 50 mg STK-MED ONCE .ROUTE; Start 01/11/25 at 07:00; Stop 01/11/25 at 07:01; Status DC Glycopyrrolate 1 mg STK-MED ONCE .ROUTE; Start 01/11/25 at 07:01; Stop 01/11/25 at 07:01; Status DC Sodium Chloride 10 ml STK-MED ONCE .ROUTE; Start 01/11/25 at 07:01; Stop 01/11/25 at 07:01; Status DC Phenylephrine HCl 10 mg STK-MED ONCE IV; Start 01/11/25 at 07:01; Stop 01/11/25 at 07:01; Status DC Midazolam HCl 2 mg STK-MED ONCE .ROUTE; Start 01/11/25 at 07:08; Stop 01/11/25 at 07:08; Status DC Ondansetron HCl 4 mg STK-MED ONCE .ROUTE; Start 01/11/25 at 07:34; Stop 01/11/25 at 07:35; Status DC Chlordiazepoxide HCl 25 mg Q8H PRN PO; Start 01/11/25 at 12:00; Stop 01/12/25 at 02:29; Status DC Heparin Sodium/ Dextrose 250 ml @ 0 mls/hr PROTOCOL IV Last administered on 01/17/25at 16:09; Start 01/11/25 at 14:30; Stop 01/18/25 at 13:28; Status DC Fluconazole 200 mg ONCE ONCE PO Last administered on 01/11/25at 15:18; Start 01/11/25 at 15:30; Stop 01/11/25 at 15:31; Status DC Fluconazole 200 mg DAILY PO Last administered on 01/25/25at 09:44; Start 01/12/25 at 09:00; Stop 01/25/25 at 16:12; Status DC Lactobacillus Rhamnosus 1 each DAILY PO Last administered on 01/27/25at 09:00; Start 01/12/25 at 09:00; Stop 02/11/25 at 08:59 Insulin Glargine 30 units DAILY SQ Last administered on 01/12/25at 11:25; Start 01/12/25 at 09:00; Stop 01/14/25 at 07:03; Status DC Insulin Human Regular INSULIN SLIDING SCAL... Q4H SQ Last administered on 01/18/25at 16:59; Start 01/11/25 at 23:59; Stop 01/18/25 at 19:33; Status DC Heparin Sodium (Porcine) 4,000 unit ONCE ONCE IV Last administered on 01/12/25at 22:36; Start 01/12/25 at 22:30; Stop 01/12/25 at 22:31; Status DC Iohexol 35,000 mg STK-MED ONCE IV; Start 01/13/25 at 12:56; Stop 01/13/25 at 12:57; Status DC Insulin Glargine 20 units DAILY SQ Last administered on 01/23/25at 09:41; Start 01/14/25 at 09:00; Stop 01/23/25 at 21:37; Status DC Insulin Human Regular 5 unit TIDAC SQ Last administered on 01/27/25at 17:52; Start 01/14/25 at 07:30; Stop 02/13/25 at 07:29 Aspirin 81 mg DAILY PO Last administered on 01/25/25at 09:45; Start 01/16/25 at 09:00; Stop 01/26/25 at 10:14; Status DC Pharmacy Profile Note 1 each ONCE MISC; Start 01/16/25 at 14:30; Stop 01/16/25 at 15:12; Status DC Dexamethasone Sodium Phosphate 10 mg STK-MED ONCE .ROUTE; Start 01/16/25 at 14:38; Stop 01/16/25 at 14:38; Status DC Dexamethasone Sodium Phosphate 10 mg STK-MED ONCE .ROUTE; Start 01/16/25 at 14:39; Stop 01/16/25 at 14:40; Status DC Cefazolin Sodium 2 gm Q8H IVPB Last administered on 01/17/25at 05:07; Start 01/16/25 at 21:30; Stop 01/17/25 at 13:22; Status DC Gentamicin Sulfate/Sodium Chloride 100 ml @ 200 mls/hr Q12H IV Last administered on 01/17/25at 16:00; Start 01/16/25 at 15:30; Stop 01/18/25 at 03:39; Status DC Acetaminophen 650 mg Q6H PRN PO Last administered on 01/27/25at 21:30; Start 01/16/25 at 17:30; Stop 02/15/25 at 17:29 Nafcillin Sodium 2 gm Q6H6 IV Last administered on 01/25/25at 12:18; Start 01/17/25 at 18:00; Stop 01/25/25 at 16:12; Status DC Melatonin 20 mg ONCE ONCE PO Last administered on 01/17/25at 22:00; Start 01/17/25 at 21:30; Stop 01/17/25 at 21:37; Status DC Gentamicin Sulfate/Sodium Chloride 100 ml @ 200 mls/hr Q12H IV Last administered on 01/20/25at 05:38; Start 01/18/25 at 04:00; Stop 01/20/25 at 06:41; Status DC Nystatin 100,000 UNITS 1 ML TO E... QID PO Last administered on 01/27/25at 21:28; Start 01/18/25 at 09:00; Stop 02/17/25 at 08:59 Apixaban 10 mg BID PO; Start 01/18/25 at 21:00; Stop 01/18/25 at 13:52; Status DC Apixaban 10 mg BID PO Last administered on 01/21/25at 08:45; Start 01/18/25 at 21:00; Stop 01/21/25 at 16:00; Status DC Apixaban 5 mg BID PO; Start 01/25/25 at 21:00; Stop 01/21/25 at 16:00; Status DC Insulin Human Regular INSULIN SLIDING SCAL... ACHS SQ Last administered on 01/27/25at 21:29; Start 01/18/25 at 21:00; Stop 02/17/25 at 20:59 Gentamicin Sulfate 150 mg/ Sodium Chloride 100 ml @ 100 mls/hr Q12H IV Last administered on 01/21/25at 16:00; Start 01/20/25 at 16:00; Stop 01/22/25 at 03:27; Status DC Iron Sucrose 300 mg Q24H IVP; Start 01/21/25 at 15:00; Stop 01/21/25 at 15:29; Status DC Iron Sucrose 300 mg/Sodium Chloride 250 ml @ 166.667 mls/hr Q24H IV; Start 01/21/25 at 16:00; Stop 01/21/25 at 17:22; Status DC Apixaban 5 mg BID PO Last administered on 01/22/25at 09:02; Start 01/21/25 at 21:00; Stop 01/23/25 at 10:57; Status DC Iron Sucrose 300 mg/Sodium Chloride 250 ml @ 166.667 mls/hr Q24H IV; Start 01/21/25 at 19:30; Stop 01/21/25 at 20:57; Status DC Iron Sucrose 300 mg/Sodium Chloride 250 ml @ 166.667 mls/hr Q24H IV Last administered on 01/23/25at 20:56; Start 01/21/25 at 21:00; Stop 01/23/25 at 22:29; Status DC Melatonin 10 mg HS PRN PO Last administered on 01/27/25at 21:29; Start 01/21/25 at 21:30; Stop 02/20/25 at 21:29 Gentamicin Sulfate 90 mg/ Sodium Chloride 50 ml @ 100 mls/hr Q8H IV; Start 01/22/25 at 03:30; Stop 01/22/25 at 03:30; Status DC Gentamicin Sulfate 90 mg/ Sodium Chloride 50 ml @ 100 mls/hr Q8H IV Last administered on 01/23/25at 12:54; Start 01/22/25 at 04:00; Stop 01/23/25 at 20:03; Status DC Apixaban 5 mg BID PO Last administered on 01/27/25at 09:01; Start 01/23/25 at 21:00; Stop 01/27/25 at 10:16; Status DC Tramadol HCl 50 mg ONCE ONCE PO Last administered on 01/23/25at 18:44; Start 01/23/25 at 19:00; Stop 01/23/25 at 19:01; Status DC Gentamicin Sulfate/Sodium Chloride 100 ml @ 200 mls/hr BID@0600,1800 IV Last administered on 01/25/25at 05:48; Start 01/24/25 at 06:00; Stop 01/25/25 at 16:12; Status DC Insulin Glargine 15 units DAILY SQ Last administered on 01/27/25at 09:13; Start 01/24/25 at 09:00; Stop 02/23/25 at 08:59 Acetaminophen/ Hydrocodone Bitart 1 tab ONCE ONCE PO Last administered on 01/24/25at 02:51; Start 01/24/25 at 02:30; Stop 01/24/25 at 02:33; Status DC Pharmacy Profile Note 1 each ONCE MISC; Start 01/25/25 at 07:30; Stop 01/25/25 at 07:26; Status DC Furosemide 20 mg BIDPC IV Last administered on 01/26/25at 18:06; Start 01/25/25 at 10:00; Stop 01/26/25 at 18:01; Status DC Lidocaine 1 patch DAILY TP Last administered on 01/27/25at 09:03; Start 01/25/25 at 12:00; Stop 02/24/25 at 11:59 Pharmacy Profile Note 1 each ONCE MISC; Start 01/25/25 at 16:30; Stop 01/25/25 at 16:12; Status DC Linezolid 300 ml @ 300 mls/hr Q12H IV Last administered on 01/27/25at 21:27; Start 01/25/25 at 20:30; Stop 02/04/25 at 20:29 Pantoprazole Sodium 40 mg Q24H IVP Last administered on 01/27/25at 04:40; Start 01/26/25 at 04:30; Stop 02/25/25 at 04:29 Iohexol 35,000 mg STK-MED ONCE IV; Start 01/26/25 at 16:37; Stop 01/26/25 at 16:37; Status DC Dexamethasone Sodium Phosphate 10 mg/Sodium Chloride 51 ml @ 100 mls/hr DAILY IV; Start 01/28/25 at 09:00; Stop 02/27/25 at 08:59 MAITE RESTREPO MD Jan 27, 2025 21:39
--- NOTE | 2025-01-27 22:27 | PN ---
FOLLOWUP PROGRESS NOTE SUBJECTIVE: A 44-year-old male who has had a prolonged hospital course. The patient initially admitted and found to have endocarditis. He has had acute renal failure in the hospital, creatinine has stabilized. He remains on the antibiotics and the patient is being seen as a followup visit for all of the above. REVIEW OF SYSTEMS: GENERAL: The patient is feeling weak and tired. HEENT: No change in vision. No change in hearing. CARDIOVASCULAR: There is no current chest pain or palpitations. PULMONARY: No shortness of breath. GASTROINTESTINAL: Tolerating a diet. MUSCULOSKELETAL: Complains of weakness. PHYSICAL EXAMINATION: VITAL SIGNS: Blood pressure 122/66, pulse in the 80s. GENERAL: Chronically ill male, much older than appearing. HEENT: Head is atraumatic. Pupils equal, roving to light. Oropharynx is without exudate. Nares clear. NECK: There is no JVP. There is no thyromegaly, no mass. CARDIOVASCULAR: Regular. There is no S3, S4 gallop. LUNGS: Coarse with equal thoracic movement. ABDOMEN: Soft, nondistended, nontender. EXTREMITIES: Reveal no clubbing, no cyanosis. NEUROLOGIC: The patient is awake, alert. LABORATORY DATA: Hemoglobin 8.7, hematocrit 25. Sodium 138, potassium 3.8, BUN 21, creatinine 1. IMPRESSION: * Renal dysfunction. * Endocarditis. * Diabetes mellitus. * Hypertension. PLAN: The patient continues with the antibiotics. The patient's renal function has improved. We will continue to follow the patient closely. All labs can be repeated in the morning. Once the patient is discharged, the patient will follow up in the [facility]al [facility]. TID: [id number] RECEIPT: [id number]
[2025-01-28 04:00] VITALS: BP 134/68; PULSE 89; RESP 19; TEMP 98.1
[2025-01-28 07:51] VITALS: BP 135/65; PULSE 67; RESP 16; TEMP 98.1
[2025-01-28 08:00] VITALS: O2SAT 98
--- NOTE | 2025-01-28 11:50 | PN ---
[facility] CARDIOLOGY PROGRESS NOTE Date Patient Seen: Jan 28, 2025 Time of Visit: 11:41 Interval History: No acute events overnight. The patient denied currently any cardiac symptoms or anginal equivalents. He is endorsing left lower extremity swelling and [id number] pain Physical Examination: GENERAL: No acute distress. HEAD: Normal with no signs of head trauma. EYES: PERRLA, EOMI, conjunctiva and sclera normal. NECK: Supple without JVD. There is no tenderness, lymphadenopathy, or masses. No thyromegaly. Normal carotid upstrokes without bruits. LUNGS: Crackles to mid and lower bases bilaterally. HEART: Regular rate. Normal S1 and S2. No obvious murmurs, gallops, or rubs noted. No murmur audible. VASC: Peripheral pulses +2 bilaterally. EXT: Ecchymosis to the right upper arm noted. There is a left calf hematoma and increased girth of the left calf compared to the right calf. 2-3+ pedal edema. There are scattered petechial and purpuric patches. NEURO: Awake, alert, and oriented. No focal neurological deficits noted. Laboratory: [ ] Hematology Labs: Test 01/27/25 16:55 Range/Units Hemoglobin 8.6 L 14.0-18.0 g/dL Hematocrit 25.7 L 42-54 % Chemistry Labs: Test 01/28/25 11:05 Range/Units Whole Blood Glucose 125 H 70-110 MG/DL Coagulation Labs: Test 01/26/25 15:05 Range/Units D-Dimer Quantitative (PE/DVT) 1694 *H 0-500 ng/mL Diagnostics / Radiology: [Copy/Paste Echos/Imaging Report here] Impression: 1. Gram-positive bacteremia due to MRSA, unknown source 2. 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 Left atrial appendage thrombus with no known history of atrial fibrillation 4. Urinary tract infection with Klebsiella pneumonia 5. Idiopathic thrombocytopenic purpura, on steroids 6. Acute kidney injury 7. Anemia 8. Type 2 diabetes, newly diagnosed 9. Polysubstance abuse with alcohol, cocaine, and tobacco Plan: Bacterial endocarditis affecting the aortic valve (1.81x1.17 cm mass attached to the noncoronary cusp leaflet) identified on DRAKE done 01/11/2025 -Limited follow up 2D echocardiogram 01/23/2025 demonstrated vegetation measuring 0.8cm x 1.15cm with a traced area of 0.9cm (relatively unchanged) -Positive blood cultures collected 01/05/2025, 01/07/2025, 01/09/2025, 01/11/2025 -Blood cultures collected and 01/19/2025-negative x5 days -The patient will continue on IV antibiotic therapy which has been tailored by ID Left atrial appendage thrombus identified on DRAKE done 01/11/2025 -We will hold Eliquis 5 mg b.i.d. and have Hematology see the patient to further evaluate the etiology of the LLE hematoma Thank you for this consult cardiology will continue to follow along Kameron Hilario MD ATTESTATION BY PHYSICIAN I have seen and examined the patient, reviewed the above documentation, participated in medical decision making, made necessary modifications, and agree with the treatment plan as documented by my mid-level provider above. MD SANDRA Etienne JAMES R MD Jan 28, 2025 11:50
[2025-01-28 12:30] VITALS: BP 132/72; PULSE 95; RESP 19; TEMP 98.4
[2025-01-28 16:44] VITALS: BP 141/83; PULSE 101; RESP 20; TEMP 98.3
--- NOTE | 2025-01-28 16:55 | PN ---
[facility] PROGRESS NOTE Date of Service: Jan 28, 2025 Time of Service: 16:54 SUBJECTIVE: [ ] The patient has been seen and examined at bedside, no acute events overnight, the patient is comfortable, cooperating well, alert oriented x3, he is on a CIWA protocol, not combative. BP 123/70, rest of vital signs unremarkable. Patient received transfusion of 1 unit of platelet, platelet count improved to 27, per rn primary care, likely due to splenomegaly. Echocardiogram reviewed, hypodense echogenic mobile vegetation to right coronary cusp leaflet, per cardiology once platelet count is greater than 50 1000 we will proceed with a a DRAKE. The pat ient also with a elevated blood sugar, continue insulin sliding scale, add insulin glargine 20 units subcutaneously at bedtime. Continue the patient on broad-spectrum IV antibiotics, continue to trend WBC in a.m.. 01/07 patient is seen and examined at bedside, case discussed with the RN, patient upgraded last night to the ICU to start insulin drip as blood glucose pers istently greater than 400. Patient started on dexamethasone IV by rn primary care do to ITP. Platelet count slightly better today at 41. Upon my initial encounter with the patient admitted that he drinks more than 18 beers per day. He was started on CIWA protocol, however has remained hemodynamically stable, comfortable in bed, no signs of withdrawal, cooperating fine. Not agitated, not combative. Toxicology screen positive for cocaine. Sodium level slowly improving, today 132. Serology positive for influenza type A. The patient with significant proteinuria consistent with diabetic nephropathy, creatinine slowly trending down, no need for renal replacement therapy per rn l and d. Patient with blood culture positive for Staphylococcus aureus, with urine culture positive for Klebsiella pneumoniae. We will add vancomycin IV pharmacy to dose. We will request Infectious Disease consultation. Echocardiogram reviewed, hypodense echogenic mobile vegetation to right coronary cusp leaflet, per cardiology once platelet count is greater than 50 1000 we will proceed with a a DRAKE. CT abdomen with gallstones in the gallbladder. HIDA scan pending 01/08 patient seen at bedside, no acute events overnight. He continues on insulin drip with an anion gap of 14, we will continue until the gap is closed. Pl atelets 54, we will follow up with Cardiology on optimal timing for DRAKE. Continue with IV antibiotics, further care per critical Care. 01/09 patient seen at bedside, no acute events overnight. Anion gap is still open at 14, we will continue IV insulin. Platelets improved from 54 up to 71, CO2 decreased from 17 down to 15. Cardiology planning on DRAKE today, we will follow up postprocedure. Repeat blood cultures are positive for Gram-positive organisms which further supports underlying endocarditis. Continue with IV antibiotics, appreciate Infectious Disease recommendations. He has been afebrile, hemodynamically stable saturating well on room air. WBC increased from 12.8 up to 13.6, BUN decreased from 93 down to 90, creatinine decreased from 2.5 down to 2.3, remainder of his labs are relatively unremarkable. 01/10 Pt seen at bedside, no acute events overnight. Pt with anion gap of 14, CO2 still low at 16. Repeat lactic acid was ordered, elevated at 4.8, will bolus patient and continue with IV fluids. DRAKE was rescheduled to today, will follow up with results.WBC improved from 13.6 down to 11.7, Hgb decreased from 15.1 down to 12.4, platelets decreased from 71 down to 66, this substantial decrease in all cell lines suggests hemodilution, creatinine decreased from 2.2 down to 1.4, also likely falsely depressed. 01/11 Pt seen at bedside, no acute events overnight. Pending EGD to assess for esophageal varices and DRAKE today, will follow up post procedure. Yesterday repeat lactic acid was elevated at 4.8, the patient was bolused and it improved down to 1.3. He has been afebrile, hemodynamically stable, saturating well on room air. WBC increased from 11.7 up to 12.5, platelets improved from 66 up to 113, creatinine increased from 1.6 up to 1.8, CO2 improved from 17 up to 22 after patient was started on bicarb. Third set of blood cultures growing gram positive organisms 01/12 patient is seen and examined at bedside, case discussed with the RN, no acute events overnight, remains on broad-spectrum IV antibiotics, alert oriented x3, following commands. Patient underwent DRAKE 01/11, tolerated well, LVEF 60- 65%, no left ventricle thrombus noted. Right ventricle is severely dilated. Left atrial appendage clot present. No mass or thrombus in the left atrium. No mass or thrombus in the right atrium. Aortic valve is trileaflet, opens well, non coronary cusp leaflet has vegetation that measures 1.8 x 1.1 cm. No mitral valve vegetation, no tricuspid valve vegetation, no pulmonic valve vegetation. Finding discussed with the patient, all questions answered. 01/13 patient is seen and examined at bedside, case discussed with the RN, no acute events overnight, during my visit the patient comfortably in bed, hemodynamically stable, alert oriented x3, getting IV antibiotics, denies chest pain, no shortness a breath, no nausea, no vomiting. 01/14 patient is seen and examined at bedside, downgraded to the medical floor, case discussed with the RN, patient hemodynamically stable, alert oriented x3, on heparin drip, no chest pain, no shortness a breath, no nausea, no vomiting. 01/15 patient is seen and examined bedside, case discussed with the RN, no acute events overnight. Patient with blood culture positive for Staphylococcus aureus, with urine culture positive for Klebsiella pneumoniae. Patient underwent DRAKE 01/11, tolerated well, LVEF 60-65%, no left ventricle thrombus noted. Right ventricle is severely dilated. Left atrial appendage clot present. No mass or thrombus in the left atrium. No mass or thrombus in the right atrium. Aortic valve is trileaflet, opens well, non coronary cusp leaflet has vegetation that measures 1.8 x 1.1 cm. No mitral valve vegetation, no tricuspid valve vegetation, no pulmonic valve vegetation. Continue heparin drip. Patient evaluated by Cardiothoracic surgeon. Medical management recommended for now. Re-evaluate possibility of aortic valve replacement in the near future. 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 Continue to follow Hematology input and recommendation Discharge plan discussed with case management, patient is uninsured, probably will have to remain admitted until completion of IV antibiotic course. 01/16 Pt seen at bedside, no acute events overnight. Most recent blood cultures are no growth to date. CV surgery suggesting aortic valve replacement may be feasible if patient recent blood cultures no growth for another 5 days. If valve replacement will not be done, patient will need to complete full course of IV antibiotics before discharge as he is unfunded. Vitals and labs are relatively unremarkable 01/17 patient seen at bedside, no acute events overnight. Most recent blood cultures are growing Gram-positive organism, we will continue with IV antibiotics. Antibiotics have been adjusted by Infectious Disease, surgery will be held. 01/18 patient seen at bedside, no acute events overnight. Continue with broad- spectrum antibiotics, we will follow up with cardiovascular surgery regarding possible surgery once infection better controlled. Discussed case with rn primary care who recommends heparin drip however patient we will need to be anticoagulated on discharge and given his own fundus status we will likely need to be started on warfarin. Vitals and labs relatively unremarkable. 01/19 patient seen at bedside, no acute events overnight. Continue with broad- spectrum antibiotics, we will follow up with cardiovascular surgery regarding possible surgery once infection better controlled. Patient started on eliquis. Hgb decreased from 9.6 down to 9.0, Vitals and labs otherwise relatively unremarkable. 01/20 patient seen at bedside, no acute events overnight. Continue with broad- spectrum antibiotics, we will follow up with cardiovascular surgery regarding possible surgery once infection better controlled. Patient started on eliquis. Hgb decreased from 9.0 down to 8.5, Vitals and labs otherwise relatively unremarkable. 01/21 Pt seen at bedside, no acute events overnight. Continue broad spectrum ant ibiotics. Lab holiday today, continue with anticoagulation and broad spectrum antibiotics. 01/22 Pt seen at bedside, no acute events overnight. Continue broad spectrum antibiotics. Lab holiday today, continue with anticoagulation and broad spectrum antibiotics. 01/23/25 patient was seen and examined. Case discussed with the RN. No acute overnight events reported. Continue with the antibiotics 01/24/25 Pt seen at bedside, no acute events overnight. Continue broad spectrum antibiotics. check labs /continue with anticoagulation and broad spectrum antibiotics. 01/25/25 patient was seen and examined. Case discussed with the RN. No acute overnight events reported. Continue with the antibiotics 01/26/25 patient was seen and examined. Case discussed with the RN. No acute overnight events reported. Continue with the antibiotics 01/27/25 Pt seen at bedside, no acute events overnight. Continue broad spectrum antibiotics. check labs /continue with anticoagulation and broad spectrum antibiotics 01/28/25 patient was seen and examined. Continue broad-spectrum antibiotics. Continue current care no acute overnight events reported REVIEW OF SYSTEMS 12 point review of systems negative unless noted in HPI PHYSICAL EXAM GENERAL APPEARANCE: The patient is awake, alert, and oriented, in no acute cardiopulmonary distress. NEUROLOGICAL: Cranial nerves II-XII grossly intact. Motor is 5/5 in bilateral upper and lower extremities proximal to distal. No sensory deficits. HEENT: Face is symmetric. Pupils are equal and reactive. Extraocular movements are intact. NECK: Supple. No JVD. No thyromegaly. No submental, submandibular, pre- /postauricular, occipital or supraclavicular lymphadenopathy. CHEST: Normal chest expansion. No Telemetry. LUNGS: Absence of any rales, rhonchi or any wheezing. CARDIOVASCULAR: Regular. S1 and S2 normal. No appreciable rubs, murmurs or gallops. ABDOMEN: Soft, nontender, and nondistended. There is no rebound, voluntary guarding, or rigidity. : Deferred. No Ortega. EXTREMITIES: Non-edematous and not cyanotic. No clubbing. Good capillary refill. SKIN: No skin breakdown. Vital Signs (last 8hr) Date Time Temp Pulse Resp B/P (MAP) Pulse Ox O2 Delivery O2 Flow Rate FiO2 01/28/25 16:44 98.2 101 20 141/83 99 Room Air 01/28/25 12:30 98.4 95 19 132/72 98 Room Air LABS: Laboratory: Test 01/28/25 15:32 01/27/25 16:55 Range/Units Whole Blood Glucose 256 #H 70-110 MG/DL Bedside Glucose Comment Notified Nurse Hemoglobin 8.6 L 14.0-18.0 g/dL Hematocrit 25.7 L 42-54 % Current Medications Medications (Trade) Dose Ordered Sig/Asya Route PRN Reason Start Time Stop Time Status Last Admin Dose Admin Acetaminophen (TYLenol 325MG TAB) 650 mg Q6H PRN PO MILD PAIN (1-3) 01/16/25 17:30 02/15/25 17:29 01/28/25 10:12 650 MG Acetaminophen (TYLenol 325MG TAB) 650 mg Q6H PRN PO TEMPERATURE GREATER THAN 101.5 01/05/25 02:30 02/04/25 02:29 01/25/25 17:03 650 MG Apixaban (EliquIS) 5 mg BID PO 01/21/25 21:00 01/23/25 10:57 DC 01/22/25 09:02 5 MG Apixaban (EliquIS) 5 mg BID PO 01/23/25 21:00 01/27/25 10:16 DC 01/27/25 09:01 5 MG Apixaban (EliquIS) 5 mg BID PO 01/25/25 21:00 01/21/25 16:00 DC Apixaban (EliquIS) 10 mg BID PO 01/18/25 21:00 01/18/25 13:52 DC Apixaban (EliquIS) 10 mg BID PO 01/18/25 21:00 01/21/25 16:00 DC 01/21/25 08:45 10 MG Aspirin (Aspirin 81mg Chew Tab) 81 mg DAILY PO 01/05/25 09:00 01/05/25 09:53 DC Aspirin (Aspirin 81mg Ec Tab) 81 mg DAILY PO 01/16/25 09:00 01/26/25 10:14 DC 01/25/25 09:45 81 MG Benzocaine (Cepacol Sore Throat Lozenge) 1 each Q4H PRN MM SORE THROAT 01/05/25 02:30 02/04/25 02:29 Calcium Gluconate 1 gm/Sodium Chloride 100 ml @ 0 mls/hr AD PRN IV Serum Calcium Correction 01/08/25 02:30 02/07/25 02:29 01/08/25 23:32 90 MLS/HR Cefazolin Sodium (Ancef) 2 gm Q12H IVPB 01/07/25 13:30 01/16/25 14:43 DC 01/16/25 01:12 2 GM Cefazolin Sodium (Ancef) 2 gm Q8H IVPB 01/16/25 21:30 01/17/25 13:22 DC 01/17/25 05:07 2 GM Chlordiazepoxide HCl (LIBrium 25 MG CAP) 25 mg Q8H PO 01/05/25 02:30 01/11/25 11:39 DC 01/10/25 22:23 25 MG Chlordiazepoxide HCl (LIBrium 25 MG CAP) 25 mg Q8H PRN PO WITHDRAWAL 01/11/25 12:00 01/12/25 02:29 DC Dexamethasone Sodium Phosphate 10 mg/Sodium Chloride 51 ml @ 100 mls/hr DAILY IV 01/28/25 09:00 02/27/25 08:59 01/28/25 13:03 100 MLS/HR Dexamethasone Sodium Phosphate 20 mg/Sodium Chloride 52 ml @ 100 mls/hr DAILY IV 01/09/25 09:00 01/27/25 19:04 DC 01/27/25 09:16 100 MLS/HR Dexamethasone Sodium Phosphate 40 mg/Sodium Chloride 50 ml @ 100 mls/hr DAILY IV 01/06/25 14:00 01/08/25 12:16 DC 01/08/25 09:34 100 MLS/HR Dextrose (D50w) 50 ml AD PRN IV HYPOGLYCEMIA PROTOCOL 01/05/25 10:00 02/04/25 09:59 Doxycycline Hyclate 250 ml @ 125 mls/hr Q12H IV 01/05/25 10:00 01/06/25 21:05 DC 01/06/25 09:30 125 MLS/HR Doxycycline Hyclate 250 ml @ 125 mls/hr Q12H IV 01/06/25 21:30 01/16/25 14:23 DC 01/16/25 10:13 125 MLS/HR Fluconazole (DiFLUCan 100 mg TAB) 200 mg DAILY PO 01/12/25 09:00 01/25/25 16:12 DC 01/25/25 09:44 200 MG Folic Acid (FOLic ACID 1 MG TABLET) 1 mg DAILY PO 01/07/25 10:30 02/06/25 10:29 01/28/25 09:41 1 MG Furosemide (LASix 20MG VIAL) 20 mg BIDPC IV 01/25/25 10:00 01/26/25 18:01 DC 01/26/25 18:06 20 MG Furosemide (LASix 20MG VIAL) 20 mg Q12H IV 01/07/25 16:00 01/11/25 00:56 DC 01/10/25 19:40 20 MG Gentamicin Sulfate 150 mg/ Sodium Chloride 100 ml @ 100 mls/hr Q12H IV 01/20/25 16:00 01/22/25 03:27 DC 01/21/25 16:00 100 MLS/HR Gentamicin Sulfate 90 mg/ Sodium Chloride 50 ml @ 100 mls/hr Q8H IV 01/22/25 03:30 01/22/25 03:30 DC Gentamicin Sulfate 90 mg/ Sodium Chloride 50 ml @ 100 mls/hr Q8H IV 01/22/25 04:00 01/23/25 20:03 DC 01/23/25 12:54 100 MLS/HR Gentamicin Sulfate/Sodium Chloride 100 ml @ 200 mls/hr BID@0600,1800 IV 01/24/25 06:00 01/25/25 16:12 DC 01/25/25 05:48 200 MLS/HR Gentamicin Sulfate/Sodium Chloride 100 ml @ 200 mls/hr Q12H IV 01/16/25 15:30 01/18/25 03:39 DC 01/17/25 16:00 200 MLS/HR Gentamicin Sulfate/Sodium Chloride 100 ml @ 200 mls/hr Q12H IV 01/18/25 04:00 01/20/25 06:41 DC 01/20/25 05:38 200 MLS/HR Glucagon (Glucagon 1mg Kit) 1 mg AD PRN IM HYPOGLYCEMIA PROTOCOL 01/05/25 10:00 02/04/25 09:59 Heparin Sodium/ Dextrose 250 ml @ 0 mls/hr PROTOCOL IV 01/11/25 14:30 01/18/25 13:28 DC 01/17/25 16:09 13.99 MLS/HR Hydralazine HCl (APRESOLine 20MG INJ) 5 mg Q6H PRN IV For:SBP above 160;DBP above 90 01/05/25 14:30 02/04/25 14:29 01/10/25 22:24 5 MG Hydralazine HCl (APRESOLine 20MG INJ) 10 mg Q6H PRN IV For:SBP above 160;DBP above 90 01/05/25 02:30 01/05/25 09:53 DC Insulin Glargine (LANtus 100 UNITS/ML 10 ML VIAL) 15 units DAILY SQ 01/24/25 09:00 02/23/25 08:59 01/28/25 09:58 15 UNITS Insulin Glargine (LANtus 100 UNITS/ML 10 ML VIAL) 15 units Q12H SQ 01/07/25 21:30 01/09/25 23:18 DC 01/09/25 13:10 15 UNITS Insulin Glargine (LANtus 100 UNITS/ML 10 ML VIAL) 20 units DAILY SQ 01/14/25 09:00 01/23/25 21:37 DC 01/23/25 09:41 20 UNITS Insulin Glargine (LANtus 100 UNITS/ML 10 ML VIAL) 20 units HS SQ 01/06/25 21:00 01/06/25 21:05 DC Insulin Glargine (LANtus 100 UNITS/ML 10 ML VIAL) 20 units HS SQ 01/06/25 21:30 01/07/25 10:24 DC 01/06/25 21:33 20 UNITS Insulin Glargine (LANtus 100 UNITS/ML 10 ML VIAL) 20 units Q12H SQ 01/10/25 09:30 01/10/25 12:58 DC Insulin Glargine (LANtus 100 UNITS/ML 10 ML VIAL) 25 units Q12H SQ 01/10/25 21:30 01/11/25 00:50 DC 01/10/25 22:19 25 UNITS Insulin Glargine (LANtus 100 UNITS/ML 10 ML VIAL) 30 units DAILY SQ 01/12/25 09:00 01/14/25 07:03 DC 01/12/25 11:25 30 UNITS Insulin Glargine (LANtus 100 UNITS/ML 10 ML VIAL) 30 units Q12H SQ 01/11/25 09:30 01/11/25 20:13 DC 01/11/25 10:50 30 UNITS Insulin Human Regular (humuLIN R 100 UNIT/ML 3ML) 5 unit TIDAC SQ 01/14/25 07:30 02/13/25 07:29 01/28/25 16:50 5 UNIT Insulin Human Regular (humuLIN R 100 UNIT/ML 3ML) 8 unit TIDAC SQ 01/11/25 07:30 01/14/25 07:03 DC 01/13/25 19:47 8 UNIT Insulin Human Regular (humuLIN R 100 UNIT/ML 3ML) INSULIN SLIDING SCAL... ACHS SQ 01/18/25 21:00 02/17/25 20:59 01/28/25 16:49 5 UNIT Insulin Human Regular (humuLIN R 100 UNIT/ML 3ML) INSULIN SLIDING SCAL... ACHS SQ 01/05/25 07:30 01/05/25 09:57 DC 01/05/25 07:59 16 UNIT Insulin Human Regular (humuLIN R 100 UNIT/ML 3ML) INSULIN SLIDING SCAL... ACHS SQ 01/05/25 11:30 01/06/25 16:43 DC 01/06/25 11:50 8 UNIT Insulin Human Regular (humuLIN R 100 UNIT/ML 3ML) INSULIN SLIDING SCAL... ACHS SQ 01/06/25 17:00 01/07/25 13:32 DC 01/06/25 17:17 16 UNIT Insulin Human Regular (humuLIN R 100 UNIT/ML 3ML) INSULIN SLIDING SCAL... Q4H SQ 01/11/25 02:00 01/11/25 23:59 DC 01/11/25 20:49 6 UNIT Insulin Human Regular (humuLIN R 100 UNIT/ML 3ML) INSULIN SLIDING SCAL... Q4H SQ 01/11/25 23:59 01/18/25 19:33 DC 01/18/25 16:59 4 UNIT Insulin Human Regular (humuLIN R 100 UNIT/ML 3ML) INSULIN SLIDING SCAL... Q6H6 SQ 01/10/25 18:00 01/11/25 00:50 DC 01/11/25 00:45 10 UNIT Insulin Human Regular 100 unit/ Sodium Chloride 100 ml @ 0 mls/hr AD PRN IV HYPERGLYCEMIA PROTOCOL 01/06/25 19:30 01/10/25 06:00 DC 01/09/25 19:10 16 MLS/HR Iron Sucrose (VenoFER) 300 mg Q24H IVP 01/21/25 15:00 01/21/25 15:29 DC Iron Sucrose 300 mg/Sodium Chloride 250 ml @ 166.667 mls/hr Q24H IV 01/21/25 16:00 01/21/25 17:22 DC Iron Sucrose 300 mg/Sodium Chloride 250 ml @ 166.667 mls/hr Q24H IV 01/21/25 19:30 01/21/25 20:57 DC Iron Sucrose 300 mg/Sodium Chloride 250 ml @ 166.667 mls/hr Q24H IV 01/21/25 21:00 01/23/25 22:29 DC 01/23/25 20:56 166.667 MLS/HR Lactated Ringer's 1,000 ml @ 100 mls/hr Q10H IV 01/05/25 02:30 01/05/25 09:51 DC 01/05/25 02:30 100 MLS/HR Lactated Ringer's 1,000 ml @ 125 mls/hr Q8H IV 01/10/25 01:30 01/10/25 19:40 DC 01/10/25 13:07 125 MLS/HR Lactobacillus Rhamnosus ([facility]) 1 each DAILY PO 01/12/25 09:00 02/11/25 08:59 01/28/25 09:51 1 EACH Lidocaine (Lidoderm Patch 5%) 1 patch DAILY TP 01/25/25 12:00 02/24/25 11:59 01/28/25 09:59 1 PATCH Linezolid 300 ml @ 300 mls/hr Q12H IV 01/25/25 20:30 02/04/25 20:29 01/28/25 09:52 300 MLS/HR Lorazepam (AtiVAN) 1 mg Q4H PRN IVP ALCOHOL WITHDRAWAL PROTOCOL 01/05/25 02:30 01/12/25 02:29 DC Magnesium Sulfate 50 ml @ 0 mls/hr PROTOCOL PRN IV h 01/05/25 02:30 02/04/25 02:29 01/25/25 10:44 25 MLS/HR Melatonin (Melatonin) 10 mg HS PRN PO INSOMNIA 01/21/25 21:30 02/20/25 21:29 01/27/25 21:29 10 MG Morphine Sulfate (morPHINE 2MG SYG) 2 mg Q4H PRN IVP SEVERE PAIN (7-10) 01/05/25 02:30 01/12/25 02:29 DC Multivitamins Therapeutic (Multivitamin Tablet) 1 tab DAILY PO 01/07/25 10:30 02/06/25 10:29 01/28/25 09:40 1 TAB Nafcillin Sodium (Nafcillin 2gm+ NS 100ml) 2 gm Q6H6 IV 01/17/25 18:00 01/25/25 16:12 DC 01/25/25 12:18 2 GM Nicotine (Nicoderm) 21 mg DAILY TD 01/05/25 09:00 02/04/25 08:59 01/28/25 09:59 21 MG Nitroglycerin (Nitrostat) 0.4 mg AD PRN SL CHEST PAIN 01/05/25 02:30 02/04/25 02:29 Nystatin (NYSTatin 936832 UNIT/ML 5ML UDCUP) 100,000 UNITS 1 ML TO E... QID PO 01/18/25 09:00 02/17/25 08:59 01/28/25 16:51 5 ML Ondansetron HCl (zoFRAN 4MG INJ) 4 mg Q6H PRN IV NAUSEA/VOMITING 01/05/25 02:30 02/04/25 02:29 Pantoprazole Sodium (PROTonix 40MG INJ) 40 mg Q24H IVP 01/26/25 04:30 02/25/25 04:29 01/28/25 05:03 40 MG Pantoprazole Sodium (PROTonix 40MG TAB) 40 mg DAILY PO 01/05/25 09:00 01/26/25 04:16 DC 01/25/25 09:45 40 MG Pharmacy Profile Note (Pharmacy Communication) 1 each ONCE MISC 01/16/25 14:30 01/16/25 15:12 DC Pharmacy Profile Note (Pharmacy Communication) 1 each ONCE MISC 01/25/25 07:30 01/25/25 07:26 DC Pharmacy Profile Note (Pharmacy Communication) 1 each ONCE MISC 01/25/25 16:30 01/25/25 16:12 DC Pharmacy Profile Note (Pharmacy Communication) 1 each PROTOCOL PRN MISC ETOH Withdrawal Score changes 01/05/25 02:30 01/12/25 02:29 DC Piperacillin Sod/ Tazobactam Sod (Zosyn 3.375gm+NS 50ml) 3.375 gm Q12H IV 01/05/25 02:30 01/07/25 13:24 DC 01/07/25 02:45 3.375 GM Potassium Phosphate 250 ml @ 42 mls/hr PROTOCOL PRN IV PROTOCOL 01/05/25 10:00 02/04/25 09:59 Potassium Chloride 100 ml @ 100 mls/hr AD PRN IV POTASSIUM PROTOCOL 01/05/25 02:30 01/07/25 10:12 DC Potassium Chloride 100 ml @ 100 mls/hr AD PRN IV POTASSIUM PROTOCOL 01/07/25 10:30 02/06/25 10:29 01/09/25 06:26 100 MLS/HR Potassium Chloride (K-Dur 10meq Sr Tab) 10 meq AD PRN PO POTASSIUM PROTOCOL 01/06/25 09:30 02/04/25 02:29 01/08/25 23:35 10 MEQ Potassium Chloride (K-Dur/Klor-Con 20meq) 10 meq AD PRN PO POTASSIUM PROTOCOL 01/05/25 02:30 01/06/25 09:12 DC 01/05/25 22:15 10 MEQ Potassium Chloride (K-Dur/Klor-Con 20meq) 10 meq AD PRN PO POTASSIUM PROTOCOL 01/07/25 10:30 01/07/25 10:12 DC Potassium Chloride (KCl 10% Elixir 20meq/15ml) 10 meq AD PRN PO POTASSIUM PROTOCOL 01/05/25 02:30 01/07/25 10:12 DC 01/06/25 17:16 10 MEQ Potassium Chloride (KCl 10% Elixir 20meq/15ml) 10 meq AD PRN PO POTASSIUM PROTOCOL 01/07/25 10:30 02/06/25 10:29 01/23/25 15:27 10 MEQ Sodium Bicarbonate (Sodium Bicarbonate) 1,300 mg BID PO 01/11/25 09:00 02/10/25 08:59 01/28/25 09:42 1,300 MG Sodium Chloride 1,000 ml @ 50 mls/hr Q20H IV 01/05/25 10:00 01/10/25 01:33 DC 01/09/25 05:56 50 MLS/HR Sodium Chloride 1,000 ml @ 75 mls/hr [id number] IV 01/11/25 01:00 01/11/25 13:45 DC 01/11/25 01:00 75 MLS/HR Triamcinolone Acetonide (Kenalog/ Aristocort) 1 APPLY TP BID BID TP 01/07/25 11:00 02/06/25 10:59 01/27/25 09:04 1 APPL Vancomycin HCl (Vancomycin Protocol) 1 each AD IV 01/07/25 12:30 01/07/25 12:40 DC DIAGNOSTICS / RADIOLOGY: [ ] ASSESSMENT: Severe sepsis, resolved POA Gram-positive bacteremia secondary to Staphylococcus aureus, POA Hypodense echogenic mobile vegetation to right coronary cusp leaflet on echocardiogram 01/05/2025 Left atrial appendage clot present. on DRAKE 01/11 non coronary cusp leaflet has vegetation that measures 1.8 x 1.1 cm. on DRAKE 01/11 Urinary tract infection, secondary to Klebsiella pneumoniae, POA Strep pharyngitis, POA ITP, POA Leukocytosis, POA Hyperlactatemia, POA Acute kidney injury, POA Hypokalemia, POA Hyponatremia, POA Hypomagnesemia, POA POA New onset Uncontrolled Diabetes mellitius type2, POA Elevated troponin, POA Cocaine abuse, POA Alcohol abuse, POA Tobacco dependence, POA Significant proteinuria, POA Diabetic nephropathy, POA Gallstones, POA Fidelina esophagitis on EGD 01/11 PLAN: -patient remains admitted to the medical floor. -continue the patient on broad-spectrum IV antibiotics -results of DRAKE reviewed, Left atrial appendage clot present. on DRAKE 01/11, a ortic valve is trileaflet, opens well. Non coronary cusp leaflet has vegetation that measures 1.8 x 1.1 cm. on DRAKE 01/11 -continue heparin drip. Patient already evaluated by Cardiothoracic surgeon, continue medical management, we will re-evaluate possibility of aortic valve replacement in the near future. 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 Continue to follow Hematology input and recommendation -renal function slightly improved today, patient evaluated by rn l and d, the patient with significant proteinuria on UA consistent with diabetic nephropathy. No acute need for any form of renal replacement therapy. -blood culture positive for Staphylococcus aureus. Urine culture positive for Klebsiella pneumoniae. Continue broad-spectrum IV antibiotics, continue to follow ID input recommendation. -case discussed with case management, patient to complete course of IV antibiotics likely during this hospitalization as the patient is uninsured. Disposition: Pending improvement in clinical condition. All questions answered time spent: > 35 min PUJA DOMINGUEZ MD Jan 28, 2025 16:55
--- NOTE | 2025-01-28 19:45 | PN ---
FOLLOWUP NOTE SUBJECTIVE: A 44-year-old male initially presented with endocarditis. The patient with evidence of diabetes mellitus and hypertension. The patient with a history of substance abuse. He remains on the long-term IV antibiotics and he is being seen as a followup visit for all of the above. REVIEW OF SYSTEMS: GENERAL: The patient is feeling weak and tired. HEENT: No change in vision. No change in hearing. CARDIOVASCULAR: There is no current chest pain or palpitations. PULMONARY: There is no shortness of breath. GASTROINTESTINAL: He is tolerating a diet. MUSCULOSKELETAL: Complains of weakness. PHYSICAL EXAMINATION: VITAL SIGNS: Blood pressure 135/65, pulse in the 60s. GENERAL: Chronically ill male, older than appearing. HEENT: Head is atraumatic. Pupils equal, roving to light. Oropharynx is without exudate. Nares clear. NECK: There is no JVP. There is no thyromegaly, no mass. CARDIOVASCULAR: Regular. There is no S3, S4 gallop. LUNGS: Coarse with equal thoracic movement. ABDOMEN: Soft, nondistended, nontender. EXTREMITIES: No clubbing, no cyanosis. NEUROLOGIC: He is awake. He is alert. LABORATORY DATA: Hemoglobin 8.6, hematocrit 25. IMPRESSION: * Acute on chronic renal failure. * Endocarditis. * Diabetes mellitus. * Hypertension. PLAN: The patient's renal function has remained fairly stable in the hospital. The patient does remain on the IV antibiotics. The patient is also being seen by Cardiovascular Surgery. We will continue to follow closely. The patient with multiple questions, all of which were answered. TID: [id number] RECEIPT: [id number]
[2025-01-28 20:00] VITALS: BP 154/75; PULSE 91; RESP 20; TEMP 97.8; O2SAT 99
--- NOTE | 2025-01-28 22:13 | PN ---
endocrinology progress note dos: 01/28/25 subjective: he is off insulin drip and on insulin injections. glucose control is improving but elevated as he is started on iv steroid. hba1c 8.5% Past Medical History Patient History: Patient reports no known family medical history. ADDITIONAL PAST MEDICAL HISTORY: [Denies any past medical history, fatty liver by CT on 01/05/2025] SOCIAL HISTORY: [Patient smokes one pack of cigarettes daily but only5 times a week. Patient [id number] beers daily but also only5 times a week. Patient repor ts occasional use of both marijuana and cocaine. Patient denies any other illegal drug use. 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 Patient has poor access to health care due to lack of health insurance. Patient is typically independent of all his ADLs. Patient denies difficulty pain is bills. Patient lives with his daughter Hannah Jin] SURGICAL HISTORY: [Heart stent] Allergies: Coded Allergies: No Known Drug Allergies (Unverified Allergy, Unknown, 12/18/15) Scheduled Amlodipine Besylate (Amlodipine Besylate), 5 MG PO DAILY Atorvastatin Calcium (Lipitor), 40 MG PO HS Hydrochlorothiazide (Hydrochlorothiazide), 25 MG PO DAILY Lisinopril (Lisinopril), 20 MG PO DAILY Losartan Potassium (Losartan Potassium), 50 MG PO DAILY Methylprednisolone (Medrol), 4 MG PO AD Tamsulosin HCl (Flomax), 0.4 MG PO DAILY [Aspirin], 325 MG PO DAILY [Prasugrel Hcl], 10 MG PO DAILY Scheduled PRN Ketorolac Tromethamine (Ketorolac Tromethamine), 10 MG PO TID PRN for PAIN ASSESSMENT: DKA-resolved he is off insulin drip. hba1c 8.5% glucose control is improving but elevated now due to iv dexamethasone. New onset Uncontrolled Diabetes mellitus type2, POA Severe sepsis, POA Urinary tract infection, POA Endocarditis and staph bacteremia Strep pharyngitis, POA Leukocytosis, POA Hyperlactatemia, POA Acute kidney injury, POA Thrombocytopenia, POA Elevated troponin, POA Substance abuse, POA, cocaine Alcohol dependence, POA Tobacco dependence, POA PLAN: continue lantus 15 units daily increase regular insulin to 8 units qac before meals increase SSI to high dose ssi keep glucose less than 180 mg/dl monitor glucose [id number]. patient will need insulin at discharge. Vitals/Labs Vital Signs Date Time Temp Pulse Resp B/P (MAP) Pulse Ox O2 Delivery O2 Flow Rate FiO2 01/28/25 16:44 98.2 101 20 141/83 99 Room Air 01/28/25 08:00 0 21 Medications Current Medications Sodium Chloride 1,000 ml @ 125 mls/hr ONCE ONCE IV Last administered on 01/05/25at 00:13; Start 01/04/25 at 23:00; Stop 01/05/25 at 06:59; Status DC Aspirin 81 mg ONCE ONCE PO Last administered on 01/05/25at 00:14; Start 01/04/25 at 23:00; Stop 01/04/25 at 23:01; Status DC Ondansetron HCl 4 mg ONCE ONCE IVP Last administered on 01/05/25at 00:13; Start 01/04/25 at 23:00; Stop 01/04/25 at 23:01; Status DC Potassium Chloride 100 ml @ 50 mls/hr ONCE ONCE IV Last administered on 01/05/25at 00:13; Start 01/05/25 at 00:00; Stop 01/05/25 at 01:59; Status DC Potassium Chloride 100 ml @ 50 mls/hr ONCE ONCE IV Last administered on 01/05/25at 03:12; Start 01/05/25 at 00:00; Stop 01/05/25 at 01:59; Status DC Thiamine HCl 100 mg ONCE ONCE IVP Last administered on 01/05/25at 01:01; Start 01/05/25 at 00:00; Stop 01/05/25 at 00:01; Status DC Acetaminophen 500 mg STK-MED ONCE .ROUTE; Start 01/05/25 at 00:28; Stop 01/05/25 at 00:28; Status DC Cefepime HCl 1 gm ONCE ONCE IVPB Last administered on 01/05/25at 01:01; Start 01/05/25 at 01:00; Stop 01/05/25 at 01:02; Status DC Vancomycin HCl 750 mg ONCE ONCE IVPB Last administered on 01/05/25at 02:12; Start 01/05/25 at 01:00; Stop 01/05/25 at 01:02; Status DC Sodium Chloride 250 ml ONCE ONCE IVPB Last administered on 01/05/25at 02:12; Start 01/05/25 at 01:00; Stop 01/05/25 at 01:02; Status DC Acetaminophen 1,000 mg ONCE ONCE PO Last administered on 01/05/25at 00:30; Start 01/05/25 at 01:00; Stop 01/05/25 at 01:02; Status DC Aspirin 81 mg DAILY PO; Start 01/05/25 at 09:00; Stop 01/05/25 at 09:53; Status DC Nitroglycerin 0.4 mg AD PRN SL; Start 01/05/25 at 02:30; Stop 02/04/25 at 02:29 Aspirin 162 mg ONCE ONCE PO Last administered on 01/05/25at 03:06; Start 01/05/25 at 02:30; Stop 01/05/25 at 02:31; Status DC Insulin Human Regular INSULIN SLIDING SCAL... ACHS SQ Last administered on 01/05/25at 07:59; Start 01/05/25 at 07:30; Stop 01/05/25 at 09:57; Status DC Lactated Ringer's 3,429 ml @ 1,143 mls/hr ONCE ONCE IV Last administered on 01/05/25at 03:12; Start 01/05/25 at 02:30; Stop 01/05/25 at 05:29; Status DC Piperacillin Sod/ Tazobactam Sod 3.375 gm Q12H IV Last administered on 01/07/25at 02:45; Start 01/05/25 at 02:30; Stop 01/07/25 at 13:24; Status DC Potassium Chloride 100 ml @ 100 mls/hr AD PRN IV; Start 01/05/25 at 02:30; Stop 01/07/25 at 10:12; Status DC Potassium Chloride 10 meq AD PRN PO Last administered on 01/06/25at 17:16; Start 01/05/25 at 02:30; Stop 01/07/25 at 10:12; Status DC Potassium Chloride 10 meq AD PRN PO Last administered on 01/05/25at 22:15; Start 01/05/25 at 02:30; Stop 01/06/25 at 09:12; Status DC Acetaminophen 650 mg Q6H PRN PO Last administered on 01/25/25at 17:03; Start 01/05/25 at 02:30; Stop 02/04/25 at 02:29 Pantoprazole Sodium 40 mg DAILY PO Last administered on 01/25/25at 09:45; Start 01/05/25 at 09:00; Stop 01/26/25 at 04:16; Status DC Ondansetron HCl 4 mg Q6H PRN IV; Start 01/05/25 at 02:30; Stop 02/04/25 at 02:29 Morphine Sulfate 2 mg Q4H PRN IVP; Start 01/05/25 at 02:30; Stop 01/12/25 at 02:29; Status DC Hydralazine HCl 10 mg Q6H PRN IV; Start 01/05/25 at 02:30; Stop 01/05/25 at 09:53; Status DC Benzocaine 1 each Q4H PRN MM; Start 01/05/25 at 02:30; Stop 02/04/25 at 02:29 Magnesium Sulfate 50 ml @ 0 mls/hr PROTOCOL PRN IV Last administered on 01/25/25at 10:44; Start 01/05/25 at 02:30; Stop 02/04/25 at 02:29 Lactated Ringer's 1,000 ml @ 100 mls/hr Q10H IV Last administered on 01/05/25at 02:30; Start 01/05/25 at 02:30; Stop 01/05/25 at 09:51; Status DC Chlordiazepoxide HCl 25 mg Q8H PO Last administered on 01/10/25at 22:23; Start 01/05/25 at 02:30; Stop 01/11/25 at 11:39; Status DC Lorazepam 1 mg Q4H PRN IVP; Start 01/05/25 at 02:30; Stop 01/12/25 at 02:29; Status DC Pharmacy Profile Note 1 each PROTOCOL PRN MISC; Start 01/05/25 at 02:30; Stop 01/12/25 at 02:29; Status DC Nicotine 21 mg DAILY TD Last administered on 01/28/25at 09:59; Start 01/05/25 at 09:00; Stop 02/04/25 at 08:59 Sodium Chloride 1,000 ml @ 50 mls/hr Q20H IV Last administered on 01/09/25at 05:56; Start 01/05/25 at 10:00; Stop 01/10/25 at 01:33; Status DC Potassium Phosphate 250 ml @ 42 mls/hr PROTOCOL PRN IV; Start 01/05/25 at 10:00; Stop 02/04/25 at 09:59 Hydralazine HCl 5 mg Q6H PRN IV Last administered on 01/10/25at 22:24; Start 01/05/25 at 14:30; Stop 02/04/25 at 14:29 Doxycycline Hyclate 250 ml @ 125 mls/hr Q12H IV Last administered on 01/06/25at 09:30; Start 01/05/25 at 10:00; Stop 01/06/25 at 21:05; Status DC Potassium Chloride 40 meq ONCE ONCE PO Last administered on 01/05/25at 10:25; Start 01/05/25 at 10:00; Stop 01/05/25 at 10:01; Status DC Potassium Chloride 100 ml @ 50 mls/hr ONCE ONCE IV Last administered on 01/05/25at 10:25; Start 01/05/25 at 10:00; Stop 01/05/25 at 11:59; Status DC Dextrose 50 ml AD PRN IV; Start 01/05/25 at 10:00; Stop 02/04/25 at 09:59 Glucagon 1 mg AD PRN IM; Start 01/05/25 at 10:00; Stop 02/04/25 at 09:59 Insulin Human Regular INSULIN SLIDING SCAL... ACHS SQ Last administered on 01/06/25at 11:50; Start 01/05/25 at 11:30; Stop 01/06/25 at 16:43; Status DC Dexamethasone Sodium Phosphate 10 mg ONCE ONCE IVP Last administered on 01/05/25at 17:27; Start 01/05/25 at 13:30; Stop 01/05/25 at 14:03; Status DC Insulin Glargine 20 units HS SQ; Start 01/06/25 at 21:00; Stop 01/06/25 at 21:05; Status DC Potassium Chloride 10 meq AD PRN PO Last administered on 01/08/25at 23:35; Start 01/06/25 at 09:30; Stop 02/04/25 at 02:29 Dexamethasone Sodium Phosphate 40 mg DAILY ONCE IV; Start 01/07/25 at 09:00; Stop 01/06/25 at 13:27; Status DC Dexamethasone Sodium Phosphate 40 mg/Sodium Chloride 50 ml @ 100 mls/hr DAILY IV Last administered on 01/08/25at 09:34; Start 01/06/25 at 14:00; Stop 01/08/25 at 12:16; Status DC Insulin Human Regular INSULIN SLIDING SCAL... ACHS SQ Last administered on 01/06/25at 17:17; Start 01/06/25 at 17:00; Stop 01/07/25 at 13:32; Status DC Insulin Human Regular 100 unit/ Sodium Chloride 100 ml @ 0 mls/hr AD PRN IV Last administered on 01/09/25at 19:10; Start 01/06/25 at 19:30; Stop 01/10/25 at 06:00; Status DC Insulin Glargine 20 units HS SQ Last administered on 01/06/25at 21:33; Start 01/06/25 at 21:30; Stop 01/07/25 at 10:24; Status DC Doxycycline Hyclate 250 ml @ 125 mls/hr Q12H IV Last administered on 01/16/25at 10:13; Start 01/06/25 at 21:30; Stop 01/16/25 at 14:23; Status DC Chlordiazepoxide HCl 25 mg STK-MED ONCE .ROUTE; Start 01/07/25 at 02:35; Stop 01/07/25 at 02:41; Status DC Piperacillin Sod/ Tazobactam Sod 50 ml @ As Directed STK-MED ONCE .ROUTE; Start 01/07/25 at 02:39; Stop 01/07/25 at 02:41; Status DC Potassium Chloride 0 ml @ As Directed STK-MED ONCE IV; Start 01/07/25 at 07:28; Stop 01/07/25 at 07:31; Status DC Potassium Chloride 40 meq ONCE ONCE PO Last administered on 01/07/25at 09:44; Start 01/07/25 at 10:00; Stop 01/07/25 at 10:01; Status DC Potassium Chloride 100 ml @ 100 mls/hr AD PRN IV Last administered on 01/09/25at 06:26; Start 01/07/25 at 10:30; Stop 02/06/25 at 10:29 Potassium Chloride 10 meq AD PRN PO Last administered on 01/23/25at 15:27; Start 01/07/25 at 10:30; Stop 02/06/25 at 10:29 Potassium Chloride 10 meq AD PRN PO; Start 01/07/25 at 10:30; Stop 01/07/25 at 10:12; Status DC Insulin Glargine 15 units Q12H SQ Last administered on 01/09/25at 13:10; Start 01/07/25 at 21:30; Stop 01/09/25 at 23:18; Status DC Insulin Glargine 10 units ONCE ONCE SQ Last administered on 01/07/25at 10:40; Start 01/07/25 at 10:30; Stop 01/07/25 at 10:31; Status DC Thiamine HCl 300 mg DAILY ONCE IVP Last administered on 01/07/25at 10:39; Start 01/07/25 at 10:30; Stop 01/07/25 at 10:31; Status DC Multivitamins Therapeutic 1 tab DAILY PO Last administered on 01/28/25at 09:40; Start 01/07/25 at 10:30; Stop 02/06/25 at 10:29 Folic Acid 1 mg DAILY PO Last administered on 01/28/25at 09:41; Start 01/07/25 at 10:30; Stop 02/06/25 at 10:29 Triamcinolone Acetonide 1 APPLY TP BID BID TP Last administered on 01/28/25at 21:02; Start 01/07/25 at 11:00; Stop 02/06/25 at 10:59 Vancomycin HCl 1 each AD IV; Start 01/07/25 at 12:30; Stop 01/07/25 at 12:40; Status DC Cefazolin Sodium 2 gm Q12H IVPB Last administered on 01/16/25at 01:12; Start 01/07/25 at 13:30; Stop 01/16/25 at 14:43; Status DC Furosemide 20 mg Q12H IV Last administered on 01/10/25at 19:40; Start 01/07/25 at 16:00; Stop 01/11/25 at 00:56; Status DC Calcium Gluconate 1 gm/Sodium Chloride 100 ml @ 0 mls/hr AD PRN IV Last administered on 01/08/25at 23:32; Start 01/08/25 at 02:30; Stop 02/07/25 at 02:29 Dexamethasone Sodium Phosphate 20 mg/Sodium Chloride 52 ml @ 100 mls/hr DAILY IV Last administered on 01/27/25at 09:16; Start 01/09/25 at 09:00; Stop 01/27/25 at 19:04; Status DC Insulin Glargine 20 units Q12H SQ; Start 01/10/25 at 09:30; Stop 01/10/25 at 12:58; Status DC Lactated Ringer's 1,000 ml @ 125 mls/hr Q8H IV Last administered on 01/10/25at 13:07; Start 01/10/25 at 01:30; Stop 01/10/25 at 19:40; Status DC Lactated Ringer's 1,000 ml BOLUS ONCE IV Last administered on 01/10/25at 09:20; Start 01/10/25 at 07:30; Stop 01/10/25 at 07:31; Status DC Lidocaine HCl 100 mg STK-MED ONCE .ROUTE; Start 01/10/25 at 08:01; Stop 01/10/25 at 08:02; Status DC Propofol 200 mg STK-MED ONCE IV; Start 01/10/25 at 08:02; Stop 01/10/25 at 08:02 ; Status DC Glycopyrrolate 1 mg STK-MED ONCE .ROUTE; Start 01/10/25 at 08:02; Stop 01/10/25 at 08:02; Status DC Ketamine HCl 50 mg STK-MED ONCE .ROUTE; Start 01/10/25 at 08:03; Stop 01/10/25 at 08:03; Status DC Insulin Glargine 25 units Q12H SQ Last administered on 01/10/25at 22:19; Start 01/10/25 at 21:30; Stop 01/11/25 at 00:50; Status DC Insulin Human Regular INSULIN SLIDING SCAL... Q6H6 SQ Last administered on 01/11/25at 00:45; Start 01/10/25 at 18:00; Stop 01/11/25 at 00:50; Status DC Insulin Glargine 30 units Q12H SQ Last administered on 01/11/25at 10:50; Start 01/11/25 at 09:30; Stop 01/11/25 at 20:13; Status DC Insulin Human Regular INSULIN SLIDING SCAL... Q4H SQ Last administered on 01/11/25at 20:49; Start 01/11/25 at 02:00; Stop 01/11/25 at 23:59; Status DC Sodium Chloride 1,000 ml @ 75 mls/hr [id number] IV Last administered on 01/11/25at 01:00; Start 01/11/25 at 01:00; Stop 01/11/25 at 13:45; Status DC Sodium Bicarbonate 1,300 mg BID PO Last administered on 01/28/25at 21:00; Start 01/11/25 at 09:00; Stop 02/10/25 at 08:59 Insulin Human Regular 8 unit TIDAC SQ Last administered on 01/13/25at 19:47; Start 01/11/25 at 07:30; Stop 01/14/25 at 07:03; Status DC Lidocaine HCl 100 mg STK-MED ONCE .ROUTE; Start 01/11/25 at 07:00; Stop 01/11/25 at 07:00; Status DC Atropine Sulfate 1 mg STK-MED ONCE IVP; Start 01/11/25 at 07:00; Stop 01/11/25 at 07:00; Status DC Propofol 200 mg STK-MED ONCE IV; Start 01/11/25 at 07:00; Stop 01/11/25 at 07:00; Status DC Succinylcholine Chloride 200 mg STK-MED ONCE .ROUTE; Start 01/11/25 at 07:00; Stop 01/11/25 at 07:00; Status DC Ketamine HCl 50 mg STK-MED ONCE .ROUTE; Start 01/11/25 at 07:00; Stop 01/11/25 at 07:01; Status DC Glycopyrrolate 1 mg STK-MED ONCE .ROUTE; Start 01/11/25 at 07:01; Stop 01/11/25 at 07:01; Status DC Sodium Chloride 10 ml STK-MED ONCE .ROUTE; Start 01/11/25 at 07:01; Stop 01/11/25 at 07:01; Status DC Phenylephrine HCl 10 mg STK-MED ONCE IV; Start 01/11/25 at 07:01; Stop 01/11/25 at 07:01; Status DC Midazolam HCl 2 mg STK-MED ONCE .ROUTE; Start 01/11/25 at 07:08; Stop 01/11/25 at 07:08; Status DC Ondansetron HCl 4 mg STK-MED ONCE .ROUTE; Start 01/11/25 at 07:34; Stop 01/11/25 at 07:35; Status DC Chlordiazepoxide HCl 25 mg Q8H PRN PO; Start 01/11/25 at 12:00; Stop 01/12/25 at 02:29; Status DC Heparin Sodium/ Dextrose 250 ml @ 0 mls/hr PROTOCOL IV Last administered on 01/17/25at 16:09; Start 01/11/25 at 14:30; Stop 01/18/25 at 13:28; Status DC Fluconazole 200 mg ONCE ONCE PO Last administered on 01/11/25at 15:18; Start 01/11/25 at 15:30; Stop 01/11/25 at 15:31; Status DC Fluconazole 200 mg DAILY PO Last administered on 01/25/25at 09:44; Start 01/12/25 at 09:00; Stop 01/25/25 at 16:12; Status DC Lactobacillus Rhamnosus 1 each DAILY PO Last administered on 01/28/25at 09:51; Start 01/12/25 at 09:00; Stop 02/11/25 at 08:59 Insulin Glargine 30 units DAILY SQ Last administered on 01/12/25at 11:25; Start 01/12/25 at 09:00; Stop 01/14/25 at 07:03; Status DC Insulin Human Regular INSULIN SLIDING SCAL... Q4H SQ Last administered on 01/18/25at 16:59; Start 01/11/25 at 23:59; Stop 01/18/25 at 19:33; Status DC Heparin Sodium (Porcine) 4,000 unit ONCE ONCE IV Last administered on 01/12/25at 22:36; Start 01/12/25 at 22:30; Stop 01/12/25 at 22:31; Status DC Iohexol 35,000 mg STK-MED ONCE IV; Start 01/13/25 at 12:56; Stop 01/13/25 at 12:57; Status DC Insulin Glargine 20 units DAILY SQ Last administered on 01/23/25at 09:41; Start 01/14/25 at 09:00; Stop 01/23/25 at 21:37; Status DC Insulin Human Regular 5 unit TIDAC SQ Last administered on 01/28/25at 16:50; Start 01/14/25 at 07:30; Stop 02/13/25 at 07:29 Aspirin 81 mg DAILY PO Last administered on 01/25/25at 09:45; Start 01/16/25 at 09:00; Stop 01/26/25 at 10:14; Status DC Pharmacy Profile Note 1 each ONCE MISC; Start 01/16/25 at 14:30; Stop 01/16/25 at 15:12; Status DC Dexamethasone Sodium Phosphate 10 mg STK-MED ONCE .ROUTE; Start 01/16/25 at 14:38; Stop 01/16/25 at 14:38; Status DC Dexamethasone Sodium Phosphate 10 mg STK-MED ONCE .ROUTE; Start 01/16/25 at 14:39; Stop 01/16/25 at 14:40; Status DC Cefazolin Sodium 2 gm Q8H IVPB Last administered on 01/17/25at 05:07; Start 01/16/25 at 21:30; Stop 01/17/25 at 13:22; Status DC Gentamicin Sulfate/Sodium Chloride 100 ml @ 200 mls/hr Q12H IV Last administered on 01/17/25at 16:00; Start 01/16/25 at 15:30; Stop 01/18/25 at 03:39 ; Status DC Acetaminophen 650 mg Q6H PRN PO Last administered on 01/28/25at 18:14; Start 01/16/25 at 17:30; Stop 02/15/25 at 17:29 Nafcillin Sodium 2 gm Q6H6 IV Last administered on 01/25/25at 12:18; Start 01/17/25 at 18:00; Stop 01/25/25 at 16:12; Status DC Melatonin 20 mg ONCE ONCE PO Last administered on 01/17/25at 22:00; Start 01/17/25 at 21:30; Stop 01/17/25 at 21:37; Status DC Gentamicin Sulfate/Sodium Chloride 100 ml @ 200 mls/hr Q12H IV Last administered on 01/20/25at 05:38; Start 01/18/25 at 04:00; Stop 01/20/25 at 06:41; Status DC Nystatin 100,000 UNITS 1 ML TO E... QID PO Last administered on 01/28/25at 21:00; Start 01/18/25 at 09:00; Stop 02/17/25 at 08:59 Apixaban 10 mg BID PO; Start 01/18/25 at 21:00; Stop 01/18/25 at 13:52; Status DC Apixaban 10 mg BID PO Last administered on 01/21/25at 08:45; Start 01/18/25 at 21:00; Stop 01/21/25 at 16:00; Status DC Apixaban 5 mg BID PO; Start 01/25/25 at 21:00; Stop 01/21/25 at 16:00; Status DC Insulin Human Regular INSULIN SLIDING SCAL... ACHS SQ Last administered on 01/28/25at 21:07; Start 01/18/25 at 21:00; Stop 02/17/25 at 20:59 Gentamicin Sulfate 150 mg/ Sodium Chloride 100 ml @ 100 mls/hr Q12H IV Last administered on 01/21/25at 16:00; Start 01/20/25 at 16:00; Stop 01/22/25 at 03:27; Status DC Iron Sucrose 300 mg Q24H IVP; Start 01/21/25 at 15:00; Stop 01/21/25 at 15:29; Status DC Iron Sucrose 300 mg/Sodium Chloride 250 ml @ 166.667 mls/hr Q24H IV; Start 01/21/25 at 16:00; Stop 01/21/25 at 17:22; Status DC Apixaban 5 mg BID PO Last administered on 01/22/25at 09:02; Start 01/21/25 at 21:00; Stop 01/23/25 at 10:57; Status DC Iron Sucrose 300 mg/Sodium Chloride 250 ml @ 166.667 mls/hr Q24H IV; Start 01/21/25 at 19:30; Stop 01/21/25 at 20:57; Status DC Iron Sucrose 300 mg/Sodium Chloride 250 ml @ 166.667 mls/hr Q24H IV Last administered on 01/23/25at 20:56; Start 01/21/25 at 21:00; Stop 01/23/25 at 22:29; Status DC Melatonin 10 mg HS PRN PO Last administered on 01/27/25at 21:29; Start 01/21/25 at 21:30; Stop 02/20/25 at 21:29 Gentamicin Sulfate 90 mg/ Sodium Chloride 50 ml @ 100 mls/hr Q8H IV; Start 01/22/25 at 03:30; Stop 01/22/25 at 03:30; Status DC Gentamicin Sulfate 90 mg/ Sodium Chloride 50 ml @ 100 mls/hr Q8H IV Last administered on 01/23/25at 12:54; Start 01/22/25 at 04:00; Stop 01/23/25 at 20:03 ; Status DC Apixaban 5 mg BID PO Last administered on 01/27/25at 09:01; Start 01/23/25 at 21:00; Stop 01/27/25 at 10:16; Status DC Tramadol HCl 50 mg ONCE ONCE PO Last administered on 01/23/25at 18:44; Start 01/23/25 at 19:00; Stop 01/23/25 at 19:01; Status DC Gentamicin Sulfate/Sodium Chloride 100 ml @ 200 mls/hr BID@0600,1800 IV Last administered on 01/25/25at 05:48; Start 01/24/25 at 06:00; Stop 01/25/25 at 16:12; Status DC Insulin Glargine 15 units DAILY SQ Last administered on 01/28/25at 09:58; Start 01/24/25 at 09:00; Stop 02/23/25 at 08:59 Acetaminophen/ Hydrocodone Bitart 1 tab ONCE ONCE PO Last administered on 01/24/25at 02:51; Start 01/24/25 at 02:30; Stop 01/24/25 at 02:33; Status DC Pharmacy Profile Note 1 each ONCE MISC; Start 01/25/25 at 07:30; Stop 01/25/25 at 07:26; Status DC Furosemide 20 mg BIDPC IV Last administered on 01/26/25at 18:06; Start 01/25/25 at 10:00; Stop 01/26/25 at 18:01; Status DC Lidocaine 1 patch DAILY TP Last administered on 01/28/25at 09:59; Start 01/25/25 at 12:00; Stop 02/24/25 at 11:59 Pharmacy Profile Note 1 each ONCE MISC; Start 01/25/25 at 16:30; Stop 01/25/25 at 16:12; Status DC Linezolid 300 ml @ 300 mls/hr Q12H IV Last administered on 01/28/25at 20:16; Start 01/25/25 at 20:30; Stop 02/04/25 at 20:29 Pantoprazole Sodium 40 mg Q24H IVP Last administered on 01/28/25at 05:03; Start 01/26/25 at 04:30; Stop 02/25/25 at 04:29 Iohexol 35,000 mg STK-MED ONCE IV; Start 01/26/25 at 16:37; Stop 01/26/25 at 16:37; Status DC Dexamethasone Sodium Phosphate 10 mg/Sodium Chloride 51 ml @ 100 mls/hr DAILY IV Last administered on 01/28/25at 13:03; Start 01/28/25 at 09:00; Stop 02/27/25 at 08:59 MAITE RESTREPO MD Jan 28, 2025 22:13
[2025-01-29] VITALS (8 sets, daily range): BP systolic 112–149; BP diastolic 57–76; PULSE 86–93; RESP 18–20; TEMP 98–98.5; O2SAT 96–99
--- NOTE | 2025-01-29 08:09 | PN ---
[facility] CARDIOLOGY PROGRESS NOTE Date Patient Seen: Jan 29, 2025 Time of Visit: 08:08 Interval History: No acute events overnight. The patient denied currently any cardiac symptoms or anginal equivalents. He is endorsing left lower extremity swelling and [id number] pain Physical Examination: GENERAL: No acute distress. HEAD: Normal with no signs of head trauma. EYES: PERRLA, EOMI, conjunctiva and sclera normal. NECK: Supple without JVD. There is no tenderness, lymphadenopathy, or masses. No thyromegaly. Normal carotid upstrokes without bruits. LUNGS: Crackles to mid and lower bases bilaterally. HEART: Regular rate. Normal S1 and S2. No obvious murmurs, gallops, or rubs noted. No murmur audible. VASC: Peripheral pulses +2 bilaterally. EXT: Ecchymosis to the right upper arm noted. There is a left calf hematoma and increased girth of the left calf compared to the right calf. 2-3+ pedal edema. There are scattered petechial and purpuric patches. NEURO: Awake, alert, and oriented. No focal neurological deficits noted. Laboratory: [ ] Hematology Labs: Test 01/27/25 16:55 Range/Units Hemoglobin 8.6 L 14.0-18.0 g/dL Hematocrit 25.7 L 42-54 % Chemistry Labs: Test 01/29/25 05:10 01/28/25 15:32 Range/Units Whole Blood Glucose 193 H 70-110 MG/DL Bedside Glucose Comment Notified Nurse Diagnostics / Radiology: [Copy/Paste Echos/Imaging Report here] Impression: 1. Gram-positive bacteremia due to MRSA, unknown source 2. 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 Left atrial appendage thrombus with no known history of atrial fibrillation 4. Urinary tract infection with Klebsiella pneumonia 5. Idiopathic thrombocytopenic purpura, on steroids 6. Acute kidney injury 7. Anemia 8. Type 2 diabetes, newly diagnosed 9. Polysubstance abuse with alcohol, cocaine, and tobacco Plan: Bacterial endocarditis affecting the aortic valve (1.81x1.17 cm mass attached to the noncoronary cusp leaflet) identified on DRAKE done 01/11/2025 -Limited follow up 2D echocardiogram 01/23/2025 demonstrated vegetation measuring 0.8cm x 1.15cm with a traced area of 0.9cm (relatively unchanged) -Positive blood cultures collected 01/05/2025, 01/07/2025, 01/09/2025, 01/11/2025 -Blood cultures collected 01/17/2025 and 01/19/2025-negative x5 days -The patient will continue on IV antibiotic therapy which has been tailored by ID -will plan for DRAKE after 4-6 weeks of IV antibiotics to evaluate vegetation Left atrial appendage thrombus identified on DRAKE done 01/11/2025 -We will hold Eliquis 5 mg b.i.d. and have Hematology see the patient to further evaluate the etiology of the LLE hematoma Thank you for this consult cardiology will continue to follow along MD SANDRA Guzman DANIELLE M MD Jan 29, 2025 08:09
[2025-01-29] MEDS: INSULIN humuLIN R 100 UNIT/ML 3ML SQ SCH ×2 (10:11→10:12)
[2025-01-29] MEDS ORDERED: IpraTROPium 0.5 MG/2.5 ML INH IH PRN (11:00)
--- NOTE | 2025-01-29 13:11 | PN ---
[facility] PROGRESS NOTE Date Patient Seen: Jan 29, 2025 Time of Visit: 13:10 Supervising Physician: Dr. Jose L Nair Primary Care Physician: [employer] PCP Outpatient Specialists: [ ] Inpatient Consults:Critical care, Hematology, cardiology and nephrology PROBLEM LIST: Endocarditis POA DRAKE on 01/11/25 with 1.1 cm aortic valve vegetation and Left Atrial Appendage thrombus Severe sepsis and shock POA, resolving Fidelina Esophagitis per EGD results 01/11/25 Urinary tract infection, POA Klebsiella pneumoniae cultured in the urine Staph aureus bacteremia POA Strep pharyngitis, POA Acute kidney injury, POA improving Electrolyte derangement POA ( hypokalemia, Hyponatremia) 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 Uncontrolled Diabetes mellitius type2, POA HgA1C 8.5 NTEMI Type II [place] POA PolySubstance abuse, POA, (cocaine/Marijuana) Alcohol dependence, POA Tobacco dependence, POA Acute cholecystitis on HIDA scan 01/07/25 POA Hepatomegaly with hepato steatosis MELD score on admission of 31 Morbid obesity Noncompliance behavior PLAN SUMMARY: Monitor for any signs of bleeding We will proceed with a CTA of the chest at this time. Monitor hemoglobin levels, there are no signs of active bleeding at this time given his left atrial appendage would advised to resume his Eliquis and monitor for any further hemoptysis, quantify it in a cup. We appreciate this consultation we will continue to follow along closely Supplemental oxygen as needed Wean off as tolerated Duo nebs as needed Continue BiPAP nightly and p.r.n. IS while awake Continue cefazolin Continue doxycycline Continue fluconazole Patient will need a pulmonary f/u as an outpatient for evaluation of suspected sleep apnea INTERVAL HISTORY: Patient visited at bedside, sitting up in his chair, patient denies any hemoptysis at this time, states he has not had anymore episodes after the initial episode for which we were consulted. Patient does endorse a tickle in his throat as he states, mild cough nonproductive that he associates with his pneumonia. We will add Cepacol lozenges to the patient's chart as well as p.r.n. ipratropium nebulizer treatments. Patient has been removed from his anticoagulation per Hematology, we will continue to follow the patient intermittently, while he is admitted. REVIEW OF SYSTEMS: 12 point ROS reviewed with patient. Pertinent positives mentioned above. Otherwise negative. PHYSICAL EXAM: GENERAL: alert, weak, awake oriented x 3 HEENT: EOMI, Sclera non icteric, moist mucosa NECK: Supple, no JVD, trachea midline LUNGS: Clear breath sounds bilaterally. No wheezes HEART: Regular rate and rhythm. Normal S1 and S2, without murmurs ABD: Abdomen soft, nontender. Bowel sounds present EXT: No clubbing cyanosis or edema NEURO: Alert and oriented to person, follows commands Vital Signs (last 8hr) Date Time Temp Pulse Resp B/P (MAP) Pulse Ox O2 Delivery O2 Flow Rate FiO2 01/29/25 11:31 91 18 N/A Room Air 21 01/29/25 08:00 98.4 86 18 112/57 94 Room Air LABS: Hematology Labs: Test 01/27/25 16:55 Range/Units Hemoglobin 8.6 L 14.0-18.0 g/dL Hematocrit 25.7 L 42-54 % Chemistry Labs: Test 01/29/25 10:56 01/28/25 15:32 Range/Units Whole Blood Glucose 166 H 70-110 MG/DL Bedside Glucose Comment Notified Nurse DIAGNOSTICS / RADIOLOGY RESULTS: [ ] PLAN NEURO: Minimize central acting medications as possible. Maintain fall precautions, adequate lighting during the day PULMONARY: Supplemental 02 as needed. Maintain aspiration precautions at all times CARDIOVASCULAR: Follow hemodynamics. Vital signs per facility protocol GI & NUTRITION: Continue with nutritional support. Continue stool softeners and laxatives as needed. KIDNEYS & ELECTROLYTES: Strict monitoring of intake, output and overall fluid balance. Avoid nephrotoxic medications to the extent possible. Medications to be dosed according to renal function. Monitor electrolytes and replace as needed ENDOCRINE: Maintain blood glucose between 100-180 at all times. Hypoglycemia protocol in place INFECTIOUS DISEASE: Trend temperature, WBC and procalcitonin level Follow cultures, deescalate antibiotics as soon as possible. Panculture if new onset fever ONCOLOGY/HEMATOLOGY/COAGULATION: Monitor for s/s of bleeding Monitor hemoglobin, coagulation studies as needed SKIN: Pressure ulcer prevention per facility protocol Specialty mattress ORTHO/REHAB: Continue PT/OT Prophylaxis: Continue GI and DVT prophylaxis Code Status: Full Resuscitation Dispo: As per attending Total time spent greater than 35 minutes MARITZA HORNER Jan 29, 2025 13:11
[2025-01-29] MEDS: dexaMETHasone SOD PHOSPHATE 10MG/ML 1ML VIAL IVP SCH (13:29)
--- NOTE | 2025-01-29 16:15 | PN ---
[facility] PROGRESS NOTE Date of Service: Jan 29, 2025 Time of Service: 16:13 SUBJECTIVE: [ ] The patient has been seen and examined at bedside, no acute events overnight, the patient is comfortable, cooperating well, alert oriented x3, he is on a CIWA protocol, not combative. BP 123/70, rest of vital signs unremarkable. Patient received transfusion of 1 unit of platelet, platelet count improved to 27, per line tender flakeboard, likely due to splenomegaly. Echocardiogram reviewed, hypodense echogenic mobile vegetation to right coronary cusp leaflet, per cardiology once platelet count is greater than 50 1000 we will proceed with a a DRAKE. The pat ient also with a elevated blood sugar, continue insulin sliding scale, add insulin glargine 20 units subcutaneously at bedtime. Continue the patient on broad-spectrum IV antibiotics, continue to trend WBC in a.m.. 01/07 patient is seen and examined at bedside, case discussed with the RN, patient upgraded last night to the ICU to start insulin drip as blood glucose pers istently greater than 400. Patient started on dexamethasone IV by line tender flakeboard do to ITP. Platelet count slightly better today at 41. Upon my initial encounter with the patient admitted that he drinks more than 18 beers per day. He was started on CIWA protocol, however has remained hemodynamically stable, comfortable in bed, no signs of withdrawal, cooperating fine. Not agitated, not combative. Toxicology screen positive for cocaine. Sodium level slowly improving, today 132. Serology positive for influenza type A. The patient with significant proteinuria consistent with diabetic nephropathy, creatinine slowly trending down, no need for renal replacement therapy per transportation associate. Patient with blood culture positive for Staphylococcus aureus, with urine culture positive for Klebsiella pneumoniae. We will add vancomycin IV pharmacy to dose. We will request Infectious Disease consultation. Echocardiogram reviewed, hypodense echogenic mobile vegetation to right coronary cusp leaflet, per cardiology once platelet count is greater than 50 1000 we will proceed with a a DRAKE. CT abdomen with gallstones in the gallbladder. HIDA scan pending 01/08 patient seen at bedside, no acute events overnight. He continues on insulin drip with an anion gap of 14, we will continue until the gap is closed. Pl atelets 54, we will follow up with Cardiology on optimal timing for DRAKE. Continue with IV antibiotics, further care per critical Care. 01/09 patient seen at bedside, no acute events overnight. Anion gap is still open at 14, we will continue IV insulin. Platelets improved from 54 up to 71, CO2 decreased from 17 down to 15. Cardiology planning on DRAKE today, we will follow up postprocedure. Repeat blood cultures are positive for Gram-positive organisms which further supports underlying endocarditis. Continue with IV antibiotics, appreciate Infectious Disease recommendations. He has been afebrile, hemodynamically stable saturating well on room air. WBC increased from 12.8 up to 13.6, BUN decreased from 93 down to 90, creatinine decreased from 2.5 down to 2.3, remainder of his labs are relatively unremarkable. 01/10 Pt seen at bedside, no acute events overnight. Pt with anion gap of 14, CO2 still low at 16. Repeat lactic acid was ordered, elevated at 4.8, will bolus patient and continue with IV fluids. DRAKE was rescheduled to today, will follow up with results.WBC improved from 13.6 down to 11.7, Hgb decreased from 15.1 down to 12.4, platelets decreased from 71 down to 66, this substantial decrease in all cell lines suggests hemodilution, creatinine decreased from 2.2 down to 1.4, also likely falsely depressed. 01/11 Pt seen at bedside, no acute events overnight. Pending EGD to assess for esophageal varices and DRAKE today, will follow up post procedure. Yesterday repeat lactic acid was elevated at 4.8, the patient was bolused and it improved down to 1.3. He has been afebrile, hemodynamically stable, saturating well on room air. WBC increased from 11.7 up to 12.5, platelets improved from 66 up to 113, creatinine increased from 1.6 up to 1.8, CO2 improved from 17 up to 22 after patient was started on bicarb. Third set of blood cultures growing gram positive organisms 01/12 patient is seen and examined at bedside, case discussed with the RN, no acute events overnight, remains on broad-spectrum IV antibiotics, alert oriented x3, following commands. Patient underwent DRAKE 01/11, tolerated well, LVEF 60- 65%, no left ventricle thrombus noted. Right ventricle is severely dilated. Left atrial appendage clot present. No mass or thrombus in the left atrium. No mass or thrombus in the right atrium. Aortic valve is trileaflet, opens well, non coronary cusp leaflet has vegetation that measures 1.8 x 1.1 cm. No mitral valve vegetation, no tricuspid valve vegetation, no pulmonic valve vegetation. Finding discussed with the patient, all questions answered. 01/13 patient is seen and examined at bedside, case discussed with the RN, no acute events overnight, during my visit the patient comfortably in bed, hemodynamically stable, alert oriented x3, getting IV antibiotics, denies chest pain, no shortness a breath, no nausea, no vomiting. 01/14 patient is seen and examined at bedside, downgraded to the medical floor, case discussed with the RN, patient hemodynamically stable, alert oriented x3, on heparin drip, no chest pain, no shortness a breath, no nausea, no vomiting. 01/15 patient is seen and examined bedside, case discussed with the RN, no acute events overnight. Patient with blood culture positive for Staphylococcus aureus, with urine culture positive for Klebsiella pneumoniae. Patient underwent DRAKE 01/11, tolerated well, LVEF 60-65%, no left ventricle thrombus noted. Right ventricle is severely dilated. Left atrial appendage clot present. No mass or thrombus in the left atrium. No mass or thrombus in the right atrium. Aortic valve is trileaflet, opens well, non coronary cusp leaflet has vegetation that measures 1.8 x 1.1 cm. No mitral valve vegetation, no tricuspid valve vegetation, no pulmonic valve vegetation. Continue heparin drip. Patient evaluated by Cardiothoracic surgeon. Medical management recommended for now. Re-evaluate possibility of aortic valve replacement in the near future. 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 Continue to follow Hematology input and recommendation Discharge plan discussed with case management, patient is uninsured, probably will have to remain admitted until completion of IV antibiotic course. 01/16 Pt seen at bedside, no acute events overnight. Most recent blood cultures are no growth to date. CV surgery suggesting aortic valve replacement may be feasible if patient recent blood cultures no growth for another 5 days. If valve replacement will not be done, patient will need to complete full course of IV antibiotics before discharge as he is unfunded. Vitals and labs are relatively unremarkable 01/17 patient seen at bedside, no acute events overnight. Most recent blood cultures are growing Gram-positive organism, we will continue with IV antibiotics. Antibiotics have been adjusted by Infectious Disease, surgery will be held. 01/18 patient seen at bedside, no acute events overnight. Continue with broad- spectrum antibiotics, we will follow up with cardiovascular surgery regarding possible surgery once infection better controlled. Discussed case with line tender flakeboard who recommends heparin drip however patient we will need to be anticoagulated on discharge and given his own fundus status we will likely need to be started on warfarin. Vitals and labs relatively unremarkable. 01/19 patient seen at bedside, no acute events overnight. Continue with broad- spectrum antibiotics, we will follow up with cardiovascular surgery regarding possible surgery once infection better controlled. Patient started on eliquis. Hgb decreased from 9.6 down to 9.0, Vitals and labs otherwise relatively unremarkable. 01/20 patient seen at bedside, no acute events overnight. Continue with broad- spectrum antibiotics, we will follow up with cardiovascular surgery regarding possible surgery once infection better controlled. Patient started on eliquis. Hgb decreased from 9.0 down to 8.5, Vitals and labs otherwise relatively unremarkable. 01/21 Pt seen at bedside, no acute events overnight. Continue broad spectrum ant ibiotics. Lab holiday today, continue with anticoagulation and broad spectrum antibiotics. 01/22 Pt seen at bedside, no acute events overnight. Continue broad spectrum antibiotics. Lab holiday today, continue with anticoagulation and broad spectrum antibiotics. 01/23/25 patient was seen and examined. Case discussed with the RN. No acute overnight events reported. Continue with the antibiotics 01/24/25 Pt seen at bedside, no acute events overnight. Continue broad spectrum antibiotics. check labs /continue with anticoagulation and broad spectrum antibiotics. 01/25/25 patient was seen and examined. Case discussed with the RN. No acute overnight events reported. Continue with the antibiotics 01/26/25 patient was seen and examined. Case discussed with the RN. No acute overnight events reported. Continue with the antibiotics 01/27/25 Pt seen at bedside, no acute events overnight. Continue broad spectrum antibiotics. check labs /continue with anticoagulation and broad spectrum antibiotics 01/28/25 patient was seen and examined. Continue broad-spectrum antibiotics. Continue current care no acute overnight events reported 01/29/25 patient was seen and examined. Case discussed with RN. Pulmonology is ordering a CTA/Cardiology by do a repeat DRAKE. Planning six weeks of IV antibiotics REVIEW OF SYSTEMS 12 point review of systems negative unless noted in HPI PHYSICAL EXAM GENERAL APPEARANCE: The patient is awake, alert, and oriented, in no acute c ardiopulmonary distress. NEUROLOGICAL: Cranial nerves II-XII grossly intact. Motor is 5/5 in bilateral upper and lower extremities proximal to distal. No sensory deficits. HEENT: Face is symmetric. Pupils are equal and reactive. Extraocular movements are intact. NECK: Supple. No JVD. No thyromegaly. No submental, submandibular, pre- /postauricular, occipital or supraclavicular lymphadenopathy. CHEST: Normal chest expansion. No Telemetry. LUNGS: Absence of any rales, rhonchi or any wheezing. CARDIOVASCULAR: Regular. S1 and S2 normal. No appreciable rubs, murmurs or gallops. ABDOMEN: Soft, nontender, and nondistended. There is no rebound, voluntary guarding, or rigidity. : Deferred. No Ortega. EXTREMITIES: Non-edematous and not cyanotic. No clubbing. Good capillary refill. SKIN: No skin breakdown. Vital Signs (last 8hr) Date Time Temp Pulse Resp B/P (MAP) Pulse Ox O2 Delivery O2 Flow Rate FiO2 01/29/25 12:00 98.2 90 18 146/74 98 Room Air 01/29/25 11:31 91 18 N/A Room Air 21 LABS: Laboratory: Test 01/29/25 10:56 01/28/25 15:32 01/27/25 16:55 Range/Units Whole Blood Glucose 166 H 70-110 MG/DL Bedside Glucose Comment Notified Nurse Hemoglobin 8.6 L 14.0-18.0 g/dL Hematocrit 25.7 L 42-54 % Current Medications Medications (Trade) Dose Ordered Sig/Asya Route PRN Reason Start Time Stop Time Status Last Admin Dose Admin Acetaminophen (TYLenol 325MG TAB) 650 mg Q6H PRN PO MILD PAIN (1-3) 01/16/25 17:30 02/15/25 17:29 01/29/25 13:32 650 MG Acetaminophen (TYLenol 325MG TAB) 650 mg Q6H PRN PO TEMPERATURE GREATER THAN 101.5 01/05/25 02:30 02/04/25 02:29 01/28/25 23:37 650 MG Apixaban (EliquIS) 5 mg BID PO 01/21/25 21:00 01/23/25 10:57 DC 01/22/25 09:02 5 MG Apixaban (EliquIS) 5 mg BID PO 01/23/25 21:00 01/27/25 10:16 DC 01/27/25 09:01 5 MG Apixaban (EliquIS) 5 mg BID PO 01/25/25 21:00 01/21/25 16:00 DC Apixaban (EliquIS) 10 mg BID PO 01/18/25 21:00 01/18/25 13:52 DC Apixaban (EliquIS) 10 mg BID PO 01/18/25 21:00 01/21/25 16:00 DC 01/21/25 08:45 10 MG Aspirin (Aspirin 81mg Chew Tab) 81 mg DAILY PO 01/05/25 09:00 01/05/25 09:53 DC Aspirin (Aspirin 81mg Ec Tab) 81 mg DAILY PO 01/16/25 09:00 01/26/25 10:14 DC 01/25/25 09:45 81 MG Benzocaine (Cepacol Sore Throat Lozenge) 1 each Q4H PRN MM SORE THROAT 01/05/25 02:30 02/04/25 02:29 Calcium Gluconate 1 gm/Sodium Chloride 100 ml @ 0 mls/hr AD PRN IV Serum Calcium Correction 01/08/25 02:30 02/07/25 02:29 01/08/25 23:32 90 MLS/HR Cefazolin Sodium (Ancef) 2 gm Q12H IVPB 01/07/25 13:30 01/16/25 14:43 DC 01/16/25 01:12 2 GM Cefazolin Sodium (Ancef) 2 gm Q8H IVPB 01/16/25 21:30 01/17/25 13:22 DC 01/17/25 05:07 2 GM Chlordiazepoxide HCl (LIBrium 25 MG CAP) 25 mg Q8H PO 01/05/25 02:30 01/11/25 11:39 DC 01/10/25 22:23 25 MG Chlordiazepoxide HCl (LIBrium 25 MG CAP) 25 mg Q8H PRN PO WITHDRAWAL 01/11/25 12:00 01/12/25 02:29 DC Dexamethasone Sodium Phosphate (dexaMETHasone 10MG/ML 1ML VIAL) 10 mg DAILY IVP 01/29/25 11:00 02/28/25 10:59 01/29/25 13:29 10 MG Dexamethasone Sodium Phosphate 10 mg/Sodium Chloride 51 ml @ 100 mls/hr DAILY IV 01/28/25 09:00 01/29/25 10:57 DC 01/28/25 13:03 100 MLS/HR Dexamethasone Sodium Phosphate 20 mg/Sodium Chloride 52 ml @ 100 mls/hr DAILY IV 01/09/25 09:00 01/27/25 19:04 DC 01/27/25 09:16 100 MLS/HR Dexamethasone Sodium Phosphate 40 mg/Sodium Chloride 50 ml @ 100 mls/hr DAILY IV 01/06/25 14:00 01/08/25 12:16 DC 01/08/25 09:34 100 MLS/HR Dextrose (D50w) 50 ml AD PRN IV HYPOGLYCEMIA PROTOCOL 01/05/25 10:00 02/04/25 09:59 Doxycycline Hyclate 250 ml @ 125 mls/hr Q12H IV 01/05/25 10:00 01/06/25 21:05 DC 01/06/25 09:30 125 MLS/HR Doxycycline Hyclate 250 ml @ 125 mls/hr Q12H IV 01/06/25 21:30 01/16/25 14:23 DC 01/16/25 10:13 125 MLS/HR Fluconazole (DiFLUCan 100 mg TAB) 200 mg DAILY PO 01/12/25 09:00 01/25/25 16:12 DC 01/25/25 09:44 200 MG Folic Acid (FOLic ACID 1 MG TABLET) 1 mg DAILY PO 01/07/25 10:30 02/06/25 10:29 01/29/25 10:10 1 MG Furosemide (LASix 20MG VIAL) 20 mg BIDPC IV 01/25/25 10:00 01/26/25 18:01 DC 01/26/25 18:06 20 MG Furosemide (LASix 20MG VIAL) 20 mg Q12H IV 01/07/25 16:00 01/11/25 00:56 DC 01/10/25 19:40 20 MG Gentamicin Sulfate 150 mg/ Sodium Chloride 100 ml @ 100 mls/hr Q12H IV 01/20/25 16:00 01/22/25 03:27 DC 01/21/25 16:00 100 MLS/HR Gentamicin Sulfate 90 mg/ Sodium Chloride 50 ml @ 100 mls/hr Q8H IV 01/22/25 03:30 01/22/25 03:30 DC Gentamicin Sulfate 90 mg/ Sodium Chloride 50 ml @ 100 mls/hr Q8H IV 01/22/25 04:00 01/23/25 20:03 DC 01/23/25 12:54 100 MLS/HR Gentamicin Sulfate/Sodium Chloride 100 ml @ 200 mls/hr BID@0600,1800 IV 01/24/25 06:00 01/25/25 16:12 DC 01/25/25 05:48 200 MLS/HR Gentamicin Sulfate/Sodium Chloride 100 ml @ 200 mls/hr Q12H IV 01/16/25 15:30 01/18/25 03:39 DC 01/17/25 16:00 200 MLS/HR Gentamicin Sulfate/Sodium Chloride 100 ml @ 200 mls/hr Q12H IV 01/18/25 04:00 01/20/25 06:41 DC 01/20/25 05:38 200 MLS/HR Glucagon (Glucagon 1mg Kit) 1 mg AD PRN IM HYPOGLYCEMIA PROTOCOL 01/05/25 10:00 02/04/25 09:59 Heparin Sodium/ Dextrose 250 ml @ 0 mls/hr PROTOCOL IV 01/11/25 14:30 01/18/25 13:28 DC 01/17/25 16:09 13.99 MLS/HR Hydralazine HCl (APRESOLine 20MG INJ) 5 mg Q6H PRN IV For:SBP above 160;DBP above 90 01/05/25 14:30 02/04/25 14:29 01/10/25 22:24 5 MG Hydralazine HCl (APRESOLine 20MG INJ) 10 mg Q6H PRN IV For:SBP above 160;DBP above 90 01/05/25 02:30 01/05/25 09:53 DC Insulin Glargine (LANtus 100 UNITS/ML 10 ML VIAL) 15 units DAILY SQ 01/24/25 09:00 02/23/25 08:59 01/29/25 10:13 15 UNITS Insulin Glargine (LANtus 100 UNITS/ML 10 ML VIAL) 15 units Q12H SQ 01/07/25 21:30 01/09/25 23:18 DC 01/09/25 13:10 15 UNITS Insulin Glargine (LANtus 100 UNITS/ML 10 ML VIAL) 20 units DAILY SQ 01/14/25 09:00 01/23/25 21:37 DC 01/23/25 09:41 20 UNITS Insulin Glargine (LANtus 100 UNITS/ML 10 ML VIAL) 20 units HS SQ 01/06/25 21:00 01/06/25 21:05 DC Insulin Glargine (LANtus 100 UNITS/ML 10 ML VIAL) 20 units HS SQ 01/06/25 21:30 01/07/25 10:24 DC 01/06/25 21:33 20 UNITS Insulin Glargine (LANtus 100 UNITS/ML 10 ML VIAL) 20 units Q12H SQ 01/10/25 09:30 01/10/25 12:58 DC Insulin Glargine (LANtus 100 UNITS/ML 10 ML VIAL) 25 units Q12H SQ 01/10/25 21:30 01/11/25 00:50 DC 01/10/25 22:19 25 UNITS Insulin Glargine (LANtus 100 UNITS/ML 10 ML VIAL) 30 units DAILY SQ 01/12/25 09:00 01/14/25 07:03 DC 01/12/25 11:25 30 UNITS Insulin Glargine (LANtus 100 UNITS/ML 10 ML VIAL) 30 units Q12H SQ 01/11/25 09:30 01/11/25 20:13 DC 01/11/25 10:50 30 UNITS Insulin Human Regular (humuLIN R 100 UNIT/ML 3ML) 5 unit TIDAC SQ 01/14/25 07:30 01/29/25 06:36 DC 01/28/25 16:50 5 UNIT Insulin Human Regular (humuLIN R 100 UNIT/ML 3ML) 7 unit TIDAC SQ 01/29/25 07:30 02/28/25 07:29 01/29/25 13:31 7 UNIT Insulin Human Regular (humuLIN R 100 UNIT/ML 3ML) 8 unit TIDAC SQ 01/11/25 07:30 01/14/25 07:03 DC 01/13/25 19:47 8 UNIT Insulin Human Regular (humuLIN R 100 UNIT/ML 3ML) INSULIN SLIDING SCAL... ACHS SQ 01/18/25 21:00 01/28/25 22:15 DC 01/28/25 21:07 7 UNIT Insulin Human Regular (humuLIN R 100 UNIT/ML 3ML) INSULIN SLIDING SCAL... ACHS SQ 01/05/25 07:30 01/05/25 09:57 DC 01/05/25 07:59 16 UNIT Insulin Human Regular (humuLIN R 100 UNIT/ML 3ML) INSULIN SLIDING SCAL... ACHS SQ 01/05/25 11:30 01/06/25 16:43 DC 01/06/25 11:50 8 UNIT Insulin Human Regular (humuLIN R 100 UNIT/ML 3ML) INSULIN SLIDING SCAL... ACHS SQ 01/06/25 17:00 01/07/25 13:32 DC 01/06/25 17:17 16 UNIT Insulin Human Regular (humuLIN R 100 UNIT/ML 3ML) INSULIN SLIDING SCAL... ACHS SQ 01/29/25 07:30 02/28/25 07:29 01/29/25 10:11 2 UNIT Insulin Human Regular (humuLIN R 100 UNIT/ML 3ML) INSULIN SLIDING SCAL... Q4H SQ 01/11/25 02:00 01/11/25 23:59 DC 01/11/25 20:49 6 UNIT Insulin Human Regular (humuLIN R 100 UNIT/ML 3ML) INSULIN SLIDING SCAL... Q4H SQ 01/11/25 23:59 01/18/25 19:33 DC 01/18/25 16:59 4 UNIT Insulin Human Regular (humuLIN R 100 UNIT/ML 3ML) INSULIN SLIDING SCAL... Q6H6 SQ 01/10/25 18:00 01/11/25 00:50 DC 01/11/25 00:45 10 UNIT Insulin Human Regular 100 unit/ Sodium Chloride 100 ml @ 0 mls/hr AD PRN IV HYPERGLYCEMIA PROTOCOL 01/06/25 19:30 01/10/25 06:00 DC 01/09/25 19:10 16 MLS/HR Ipratropium Ely (AtrovENT UD) 0.5 MG Q6H PRN IH SHORTNESS OF BREATH 01/29/25 11:00 02/28/25 10:59 Iron Sucrose (VenoFER) 300 mg Q24H IVP 01/21/25 15:00 01/21/25 15:29 DC Iron Sucrose 300 mg/Sodium Chloride 250 ml @ 166.667 mls/hr Q24H IV 01/21/25 16:00 01/21/25 17:22 DC Iron Sucrose 300 mg/Sodium Chloride 250 ml @ 166.667 mls/hr Q24H IV 01/21/25 19:30 01/21/25 20:57 DC Iron Sucrose 300 mg/Sodium Chloride 250 ml @ 166.667 mls/hr Q24H IV 01/21/25 21:00 01/23/25 22:29 DC 01/23/25 20:56 166.667 MLS/HR Lactated Ringer's 1,000 ml @ 100 mls/hr Q10H IV 01/05/25 02:30 01/05/25 09:51 DC 01/05/25 02:30 100 MLS/HR Lactated Ringer's 1,000 ml @ 125 mls/hr Q8H IV 01/10/25 01:30 01/10/25 19:40 DC 01/10/25 13:07 125 MLS/HR Lactobacillus Rhamnosus ([facility] [employer]) 1 each DAILY PO 01/12/25 09:00 02/11/25 08:59 01/29/25 10:09 1 EACH Lidocaine (Lidoderm Patch 5%) 1 patch DAILY TP 01/25/25 12:00 02/24/25 11:59 01/29/25 10:07 1 PATCH Linezolid 300 ml @ 300 mls/hr Q12H IV 01/25/25 20:30 02/04/25 20:29 01/29/25 10:08 300 MLS/HR Lorazepam (AtiVAN) 1 mg Q4H PRN IVP ALCOHOL WITHDRAWAL PROTOCOL 01/05/25 02:30 01/12/25 02:29 DC Magnesium Sulfate 50 ml @ 0 mls/hr PROTOCOL PRN IV h 01/05/25 02:30 02/04/25 02:29 01/25/25 10:44 25 MLS/HR Melatonin (Melatonin) 10 mg HS PRN PO INSOMNIA 01/21/25 21:30 02/20/25 21:29 01/28/25 23:37 10 MG Morphine Sulfate (morPHINE 2MG SYG) 2 mg Q4H PRN IVP SEVERE PAIN (7-10) 01/05/25 02:30 01/12/25 02:29 DC Multivitamins Therapeutic (Multivitamin Tablet) 1 tab DAILY PO 01/07/25 10:30 02/06/25 10:29 01/29/25 10:10 1 TAB Nafcillin Sodium (Nafcillin 2gm+ NS 100ml) 2 gm Q6H6 IV 01/17/25 18:00 01/25/25 16:12 DC 01/25/25 12:18 2 GM Nicotine (Nicoderm) 21 mg DAILY TD 01/05/25 09:00 02/04/25 08:59 01/29/25 10:09 21 MG Nitroglycerin (Nitrostat) 0.4 mg AD PRN SL CHEST PAIN 01/05/25 02:30 02/04/25 02:29 Nystatin (NYSTatin 103314 UNIT/ML 5ML UDCUP) 100,000 UNITS 1 ML TO E... QID PO 01/18/25 09:00 02/17/25 08:59 01/29/25 13:31 5 ML Ondansetron HCl (zoFRAN 4MG INJ) 4 mg Q6H PRN IV NAUSEA/VOMITING 01/05/25 02:30 02/04/25 02:29 Pantoprazole Sodium (PROTonix 40MG INJ) 40 mg Q24H IVP 01/26/25 04:30 02/25/25 04:29 01/29/25 04:26 40 MG Pantoprazole Sodium (PROTonix 40MG TAB) 40 mg DAILY PO 01/05/25 09:00 01/26/25 04:16 DC 01/25/25 09:45 40 MG Pharmacy Profile Note (Pharmacy Communication) 1 each ONCE MISC 01/16/25 14:30 01/16/25 15:12 DC Pharmacy Profile Note (Pharmacy Communication) 1 each ONCE MISC 01/25/25 07:30 01/25/25 07:26 DC Pharmacy Profile Note (Pharmacy Communication) 1 each ONCE MISC 01/25/25 16:30 01/25/25 16:12 DC Pharmacy Profile Note (Pharmacy Communication) 1 each PROTOCOL PRN MISC ETOH Withdrawal Score changes 01/05/25 02:30 01/12/25 02:29 DC Piperacillin Sod/ Tazobactam Sod (Zosyn 3.375gm+NS 50ml) 3.375 gm Q12H IV 01/05/25 02:30 01/07/25 13:24 DC 01/07/25 02:45 3.375 GM Potassium Phosphate 250 ml @ 42 mls/hr PROTOCOL PRN IV PROTOCOL 01/05/25 10:00 02/04/25 09:59 Potassium Chloride 100 ml @ 100 mls/hr AD PRN IV POTASSIUM PROTOCOL 01/05/25 02:30 01/07/25 10:12 DC Potassium Chloride 100 ml @ 100 mls/hr AD PRN IV POTASSIUM PROTOCOL 01/07/25 10:30 02/06/25 10:29 01/09/25 06:26 100 MLS/HR Potassium Chloride (K-Dur 10meq Sr Tab) 10 meq AD PRN PO POTASSIUM PROTOCOL 01/06/25 09:30 02/04/25 02:29 01/08/25 23:35 10 MEQ Potassium Chloride (K-Dur/Klor-Con 20meq) 10 meq AD PRN PO POTASSIUM PROTOCOL 01/05/25 02:30 01/06/25 09:12 DC 01/05/25 22:15 10 MEQ Potassium Chloride (K-Dur/Klor-Con 20meq) 10 meq AD PRN PO POTASSIUM PROTOCOL 01/07/25 10:30 01/07/25 10:12 DC Potassium Chloride (KCl 10% Elixir 20meq/15ml) 10 meq AD PRN PO POTASSIUM PROTOCOL 01/05/25 02:30 01/07/25 10:12 DC 01/06/25 17:16 10 MEQ Potassium Chloride (KCl 10% Elixir 20meq/15ml) 10 meq AD PRN PO POTASSIUM PROTOCOL 01/07/25 10:30 02/06/25 10:29 01/23/25 15:27 10 MEQ Sodium Bicarbonate (Sodium Bicarbonate) 1,300 mg BID PO 01/11/25 09:00 02/10/25 08:59 01/29/25 10:09 1,300 MG Sodium Chloride 1,000 ml @ 50 mls/hr Q20H IV 01/05/25 10:00 01/10/25 01:33 DC 01/09/25 05:56 50 MLS/HR Sodium Chloride 1,000 ml @ 75 mls/hr [id number] IV 01/11/25 01:00 01/11/25 13:45 DC 01/11/25 01:00 75 MLS/HR Triamcinolone Acetonide (Kenalog/ Aristocort) 1 APPLY TP BID BID TP 01/07/25 11:00 02/06/25 10:59 01/28/25 21:02 1 APPL Vancomycin HCl (Vancomycin Protocol) 1 each AD IV 01/07/25 12:30 01/07/25 12:40 DC DIAGNOSTICS / RADIOLOGY: [ ] ASSESSMENT: Severe sepsis, resolved POA Gram-positive bacteremia secondary to Staphylococcus aureus, POA Hypodense echogenic mobile vegetation to right coronary cusp leaflet on echocardiogram 01/05/2025 Left atrial appendage clot present. on DRAKE 01/11 non coronary cusp leaflet has vegetation that measures 1.8 x 1.1 cm. on DRAKE 01/11 Urinary tract infection, secondary to Klebsiella pneumoniae, POA Strep pharyngitis, POA ITP, POA Leukocytosis, POA Hyperlactatemia, POA Acute kidney injury, POA Hypokalemia, POA Hyponatremia, POA Hypomagnesemia, POA POA New onset Uncontrolled Diabetes mellitius type2, POA Elevated troponin, POA Cocaine abuse, POA Alcohol abuse, POA Tobacco dependence, POA Significant proteinuria, POA Diabetic nephropathy, POA Gallstones, POA Fidelina esophagitis on EGD 01/11 PLAN: -patient remains admitted to the medical floor. -continue the patient on broad-spectrum IV antibiotics -results of DRAKE reviewed, Left atrial appendage clot present. on DRAKE 01/11, aortic valve is trileaflet, opens well. Non coronary cusp leaflet has vegetation that measures 1.8 x 1.1 cm. on DRAKE 01/11 -continue heparin drip. Patient already evaluated by Cardiothoracic surgeon, continue medical management, we will re-evaluate possibility of aortic valve replacement in the near future. 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 Continue to follow Hematology input and recommendation -renal function slightly improved today, patient evaluated by transportation associate, the patient with significant proteinuria on UA consistent with diabetic nephropathy. No acute need for any form of renal replacement therapy. -blood culture positive for Staphylococcus aureus. Urine culture positive for Klebsiella pneumoniae. Continue broad-spectrum IV antibiotics, continue to follow ID input recommendation. -case discussed with case management, patient to complete course of IV anti biotics likely during this hospitalization as the patient is uninsured. Disposition: Pending improvement in clinical condition. All questions answered time spent: > 35 min PUJA DOMINGUEZ MD Jan 29, 2025 16:15
--- NOTE | 2025-01-29 19:19 | PN ---
endocrinology progress note dos: 01/29/25 subjective: he is off insulin drip and on insulin injections. glucose control is improving and off iv steroid. hba1c 8.5% Past Medical History Patient History: Patient reports no known family medical history. ADDITIONAL PAST MEDICAL HISTORY: [Denies any past medical history, fatty liver by CT on 01/05/2025] SOCIAL HISTORY: [Patient smokes one pack of cigarettes daily but only5 times a week. Patient [id number] beers daily but also only5 times a week. Patient reports occasional use of both marijuana and cocaine. Patient denies any other illegal drug use. 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 Patient has poor access to health care due to lack of health insurance. Patient is typically independent of all his ADLs. Patient denies difficulty pain is bills. Patient lives with his daughter Hannah Jin] SURGICAL HISTORY: [Heart stent] Allergies: Coded Allergies: No Known Drug Allergies (Unverified Allergy, Unknown, 12/18/15) Scheduled Amlodipine Besylate (Amlodipine Besylate), 5 MG PO DAILY Atorvastatin Calcium (Lipitor), 40 MG PO HS Hydrochlorothiazide (Hydrochlorothiazide), 25 MG PO DAILY Lisinopril (Lisinopril), 20 MG PO DAILY Losartan Potassium (Losartan Potassium), 50 MG PO DAILY Methylprednisolone (Medrol), 4 MG PO AD Tamsulosin HCl (Flomax), 0.4 MG PO DAILY [Aspirin], 325 MG PO DAILY [Prasugrel Hcl], 10 MG PO DAILY Scheduled PRN Ketorolac Tromethamine (Ketorolac Tromethamine), 10 MG PO TID PRN for PAIN ASSESSMENT: DKA-resolved he is off insulin drip. hba1c 8.5% glucose control is improving now and ff iv dexamethasone. New onset Uncontrolled Diabetes mellitus type2, POA Severe sepsis, POA Urinary tract infection, POA Endocarditis and staph bacteremia Strep pharyngitis, POA Leukocytosis, POA Hyperlactatemia, POA Acute kidney injury, POA Thrombocytopenia, POA Elevated troponin, POA Substance abuse, POA, cocaine Alcohol dependence, POA Tobacco dependence, POA PLAN: continue lantus 15 units daily decrease regular insulin to 6 units qac before meals continue medium dose ssi keep glucose less than 180 mg/dl monitor glucose [id number]. patient will need insulin at discharge. Vitals/Labs Vital Signs Date Time Temp Pulse Resp B/P (MAP) Pulse Ox O2 Delivery O2 Flow Rate FiO2 01/29/25 16:00 98.1 89 20 139/74 97 Room Air 01/29/25 11:31 21 01/29/25 08:00 0 Medications Current Medications Sodium Chloride 1,000 ml @ 125 mls/hr ONCE ONCE IV Last administered on 01/05/25at 00:13; Start 01/04/25 at 23:00; Stop 01/05/25 at 06:59; Status DC Aspirin 81 mg ONCE ONCE PO Last administered on 01/05/25at 00:14; Start 01/04/25 at 23:00; Stop 01/04/25 at 23:01; Status DC Ondansetron HCl 4 mg ONCE ONCE IVP Last administered on 01/05/25at 00:13; Start 01/04/25 at 23:00; Stop 01/04/25 at 23:01; Status DC Potassium Chloride 100 ml @ 50 mls/hr ONCE ONCE IV Last administered on 01/05/25at 00:13; Start 01/05/25 at 00:00; Stop 01/05/25 at 01:59; Status DC Potassium Chloride 100 ml @ 50 mls/hr ONCE ONCE IV Last administered on 01/05/25at 03:12; Start 01/05/25 at 00:00; Stop 01/05/25 at 01:59; Status DC Thiamine HCl 100 mg ONCE ONCE IVP Last administered on 01/05/25at 01:01; Start 01/05/25 at 00:00; Stop 01/05/25 at 00:01; Status DC Acetaminophen 500 mg STK-MED ONCE .ROUTE; Start 01/05/25 at 00:28; Stop 01/05/25 at 00:28; Status DC Cefepime HCl 1 gm ONCE ONCE IVPB Last administered on 01/05/25at 01:01; Start 01/05/25 at 01:00; Stop 01/05/25 at 01:02; Status DC Vancomycin HCl 750 mg ONCE ONCE IVPB Last administered on 01/05/25at 02:12; Start 01/05/25 at 01:00; Stop 01/05/25 at 01:02; Status DC Sodium Chloride 250 ml ONCE ONCE IVPB Last administered on 01/05/25at 02:12; Start 01/05/25 at 01:00; Stop 01/05/25 at 01:02; Status DC Acetaminophen 1,000 mg ONCE ONCE PO Last administered on 01/05/25at 00:30; Start 01/05/25 at 01:00; Stop 01/05/25 at 01:02; Status DC Aspirin 81 mg DAILY PO; Start 01/05/25 at 09:00; Stop 01/05/25 at 09:53; Status DC Nitroglycerin 0.4 mg AD PRN SL; Start 01/05/25 at 02:30; Stop 02/04/25 at 02:29 Aspirin 162 mg ONCE ONCE PO Last administered on 01/05/25at 03:06; Start 01/05/25 at 02:30; Stop 01/05/25 at 02:31; Status DC Insulin Human Regular INSULIN SLIDING SCAL... ACHS SQ Last administered on 01/05/25at 07:59; Start 01/05/25 at 07:30; Stop 01/05/25 at 09:57; Status DC Lactated Ringer's 3,429 ml @ 1,143 mls/hr ONCE ONCE IV Last administered on 01/05/25at 03:12; Start 01/05/25 at 02:30; Stop 01/05/25 at 05:29; Status DC Piperacillin Sod/ Tazobactam Sod 3.375 gm Q12H IV Last administered on 01/07/25at 02:45; Start 01/05/25 at 02:30; Stop 01/07/25 at 13:24; Status DC Potassium Chloride 100 ml @ 100 mls/hr AD PRN IV; Start 01/05/25 at 02:30; Stop 01/07/25 at 10:12; Status DC Potassium Chloride 10 meq AD PRN PO Last administered on 01/06/25at 17:16; Start 01/05/25 at 02:30; Stop 01/07/25 at 10:12; Status DC Potassium Chloride 10 meq AD PRN PO Last administered on 01/05/25at 22:15; Start 01/05/25 at 02:30; Stop 01/06/25 at 09:12; Status DC Acetaminophen 650 mg Q6H PRN PO Last administered on 01/28/25at 23:37; Start 01/05/25 at 02:30; Stop 02/04/25 at 02:29 Pantoprazole Sodium 40 mg DAILY PO Last administered on 01/25/25at 09:45; Start 01/05/25 at 09:00; Stop 01/26/25 at 04:16; Status DC Ondansetron HCl 4 mg Q6H PRN IV; Start 01/05/25 at 02:30; Stop 02/04/25 at 02:29 Morphine Sulfate 2 mg Q4H PRN IVP; Start 01/05/25 at 02:30; Stop 01/12/25 at 02:29; Status DC Hydralazine HCl 10 mg Q6H PRN IV; Start 01/05/25 at 02:30; Stop 01/05/25 at 09:53; Status DC Benzocaine 1 each Q4H PRN MM; Start 01/05/25 at 02:30; Stop 02/04/25 at 02:29 Magnesium Sulfate 50 ml @ 0 mls/hr PROTOCOL PRN IV Last administered on 01/25/25at 10:44; Start 01/05/25 at 02:30; Stop 02/04/25 at 02:29 Lactated Ringer's 1,000 ml @ 100 mls/hr Q10H IV Last administered on 01/05/25at 02:30; Start 01/05/25 at 02:30; Stop 01/05/25 at 09:51; Status DC Chlordiazepoxide HCl 25 mg Q8H PO Last administered on 01/10/25at 22:23; Start 01/05/25 at 02:30; Stop 01/11/25 at 11:39; Status DC Lorazepam 1 mg Q4H PRN IVP; Start 01/05/25 at 02:30; Stop 01/12/25 at 02:29; Status DC Pharmacy Profile Note 1 each PROTOCOL PRN MISC; Start 01/05/25 at 02:30; Stop 01/12/25 at 02:29; Status DC Nicotine 21 mg DAILY TD Last administered on 01/29/25at 10:09; Start 01/05/25 at 09:00; Stop 02/04/25 at 08:59 Sodium Chloride 1,000 ml @ 50 mls/hr Q20H IV Last administered on 01/09/25at 05:56; Start 01/05/25 at 10:00; Stop 01/10/25 at 01:33; Status DC Potassium Phosphate 250 ml @ 42 mls/hr PROTOCOL PRN IV; Start 01/05/25 at 10:00; Stop 02/04/25 at 09:59 Hydralazine HCl 5 mg Q6H PRN IV Last administered on 01/10/25at 22:24; Start 01/05/25 at 14:30; Stop 02/04/25 at 14:29 Doxycycline Hyclate 250 ml @ 125 mls/hr Q12H IV Last administered on 01/06/25at 0 9:30; Start 01/05/25 at 10:00; Stop 01/06/25 at 21:05; Status DC Potassium Chloride 40 meq ONCE ONCE PO Last administered on 01/05/25at 10:25; Start 01/05/25 at 10:00; Stop 01/05/25 at 10:01; Status DC Potassium Chloride 100 ml @ 50 mls/hr ONCE ONCE IV Last administered on 01/05/25at 10:25; Start 01/05/25 at 10:00; Stop 01/05/25 at 11:59; Status DC Dextrose 50 ml AD PRN IV; Start 01/05/25 at 10:00; Stop 02/04/25 at 09:59 Glucagon 1 mg AD PRN IM; Start 01/05/25 at 10:00; Stop 02/04/25 at 09:59 Insulin Human Regular INSULIN SLIDING SCAL... ACHS SQ Last administered on 01/06/25at 11:50; Start 01/05/25 at 11:30; Stop 01/06/25 at 16:43; Status DC Dexamethasone Sodium Phosphate 10 mg ONCE ONCE IVP Last administered on 01/05/25at 17:27; Start 01/05/25 at 13:30; Stop 01/05/25 at 14:03; Status DC Insulin Glargine 20 units HS SQ; Start 01/06/25 at 21:00; Stop 01/06/25 at 21:05; Status DC Potassium Chloride 10 meq AD PRN PO Last administered on 01/08/25at 23:35; Start 01/06/25 at 09:30; Stop 02/04/25 at 02:29 Dexamethasone Sodium Phosphate 40 mg DAILY ONCE IV; Start 01/07/25 at 09:00; Stop 01/06/25 at 13:27; Status DC Dexamethasone Sodium Phosphate 40 mg/Sodium Chloride 50 ml @ 100 mls/hr DAILY IV Last administered on 01/08/25at 09:34; Start 01/06/25 at 14:00; Stop 01/08/25 at 12:16; Status DC Insulin Human Regular INSULIN SLIDING SCAL... ACHS SQ Last administered on 01/06/25at 17:17; Start 01/06/25 at 17:00; Stop 01/07/25 at 13:32; Status DC Insulin Human Regular 100 unit/ Sodium Chloride 100 ml @ 0 mls/hr AD PRN IV Last administered on 01/09/25at 19:10; Start 01/06/25 at 19:30; Stop 01/10/25 at 06:00; Status DC Insulin Glargine 20 units HS SQ Last administered on 01/06/25at 21:33; Start 01/06/25 at 21:30; Stop 01/07/25 at 10:24; Status DC Doxycycline Hyclate 250 ml @ 125 mls/hr Q12H IV Last administered on 01/16/25at 10:13; Start 01/06/25 at 21:30; Stop 01/16/25 at 14:23; Status DC Chlordiazepoxide HCl 25 mg STK-MED ONCE .ROUTE; Start 01/07/25 at 02:35; Stop 01/07/25 at 02:41; Status DC Piperacillin Sod/ Tazobactam Sod 50 ml @ As Directed STK-MED ONCE .ROUTE; Start 01/07/25 at 02:39; Stop 01/07/25 at 02:41; Status DC Potassium Chloride 0 ml @ As Directed STK-MED ONCE IV; Start 01/07/25 at 07:28; Stop 01/07/25 at 07:31; Status DC Potassium Chloride 40 meq ONCE ONCE PO Last administered on 01/07/25at 09:44; Start 01/07/25 at 10:00; Stop 01/07/25 at 10:01; Status DC Potassium Chloride 100 ml @ 100 mls/hr AD PRN IV Last administered on 01/09/25at 06:26; Start 01/07/25 at 10:30; Stop 02/06/25 at 10:29 Potassium Chloride 10 meq AD PRN PO Last administered on 01/23/25at 15:27; Start 01/07/25 at 10:30; Stop 02/06/25 at 10:29 Potassium Chloride 10 meq AD PRN PO; Start 01/07/25 at 10:30; Stop 01/07/25 at 10:12; Status DC Insulin Glargine 15 units Q12H SQ Last administered on 01/09/25at 13:10; Start 01/07/25 at 21:30; Stop 01/09/25 at 23:18; Status DC Insulin Glargine 10 units ONCE ONCE SQ Last administered on 01/07/25at 10:40; Start 01/07/25 at 10:30; Stop 01/07/25 at 10:31; Status DC Thiamine HCl 300 mg DAILY ONCE IVP Last administered on 01/07/25at 10:39; Start 01/07/25 at 10:30; Stop 01/07/25 at 10:31; Status DC Multivitamins Therapeutic 1 tab DAILY PO Last administered on 01/29/25at 10:10; S tart 01/07/25 at 10:30; Stop 02/06/25 at 10:29 Folic Acid 1 mg DAILY PO Last administered on 01/29/25at 10:10; Start 01/07/25 at 10:30; Stop 02/06/25 at 10:29 Triamcinolone Acetonide 1 APPLY TP BID BID TP Last administered on 01/28/25at 21:02; Start 01/07/25 at 11:00; Stop 02/06/25 at 10:59 Vancomycin HCl 1 each AD IV; Start 01/07/25 at 12:30; Stop 01/07/25 at 12:40; Status DC Cefazolin Sodium 2 gm Q12H IVPB Last administered on 01/16/25at 01:12; Start 01/07/25 at 13:30; Stop 01/16/25 at 14:43; Status DC Furosemide 20 mg Q12H IV Last administered on 01/10/25at 19:40; Start 01/07/25 at 16:00; Stop 01/11/25 at 00:56; Status DC Calcium Gluconate 1 gm/Sodium Chloride 100 ml @ 0 mls/hr AD PRN IV Last administered on 01/08/25at 23:32; Start 01/08/25 at 02:30; Stop 02/07/25 at 02:29 Dexamethasone Sodium Phosphate 20 mg/Sodium Chloride 52 ml @ 100 mls/hr DAILY IV Last administered on 01/27/25at 09:16; Start 01/09/25 at 09:00; Stop 01/27/25 at 19:04; Status DC Insulin Glargine 20 units Q12H SQ; Start 01/10/25 at 09:30; Stop 01/10/25 at 12:58; Status DC Lactated Ringer's 1,000 ml @ 125 mls/hr Q8H IV Last administered on 01/10/25at 13:07; Start 01/10/25 at 01:30; Stop 01/10/25 at 19:40; Status DC Lactated Ringer's 1,000 ml BOLUS ONCE IV Last administered on 01/10/25at 09:20; Start 01/10/25 at 07:30; Stop 01/10/25 at 07:31; Status DC Lidocaine HCl 100 mg STK-MED ONCE .ROUTE; Start 01/10/25 at 08:01; Stop 01/10/25 at 08:02; Status DC Propofol 200 mg STK-MED ONCE IV; Start 01/10/25 at 08:02; Stop 01/10/25 at 08:02; Status DC Glycopyrrolate 1 mg STK-MED ONCE .ROUTE; Start 01/10/25 at 08:02; Stop 01/10/25 at 08:02; Status DC Ketamine HCl 50 mg STK-MED ONCE .ROUTE; Start 01/10/25 at 08:03; Stop 01/10/25 at 08:03; Status DC Insulin Glargine 25 units Q12H SQ Last administered on 01/10/25at 22:19; Start 01/10/25 at 21:30; Stop 01/11/25 at 00:50; Status DC Insulin Human Regular INSULIN SLIDING SCAL... Q6H6 SQ Last administered on 01/11/25at 00:45; Start 01/10/25 at 18:00; Stop 01/11/25 at 00:50; Status DC Insulin Glargine 30 units Q12H SQ Last administered on 01/11/25at 10:50; Start 01/11/25 at 09:30; Stop 01/11/25 at 20:13; Status DC Insulin Human Regular INSULIN SLIDING SCAL... Q4H SQ Last administered on 01/11/25at 20:49; Start 01/11/25 at 02:00; Stop 01/11/25 at 23:59; Status DC Sodium Chloride 1,000 ml @ 75 mls/hr [id number] IV Last administered on 01/11/25at 01:00; Start 01/11/25 at 01:00; Stop 01/11/25 at 13:45; Status DC Sodium Bicarbonate 1,300 mg BID PO Last administered on 01/29/25at 10:09; Start 01/11/25 at 09:00; Stop 02/10/25 at 08:59 Insulin Human Regular 8 unit TIDAC SQ Last administered on 01/13/25at 19:47; Start 01/11/25 at 07:30; Stop 01/14/25 at 07:03; Status DC Lidocaine HCl 100 mg STK-MED ONCE .ROUTE; Start 01/11/25 at 07:00; Stop 01/11/25 at 07:00; Status DC Atropine Sulfate 1 mg STK-MED ONCE IVP; Start 01/11/25 at 07:00; Stop 01/11/25 at 07:00; Status DC Propofol 200 mg STK-MED ONCE IV; Start 01/11/25 at 07:00; Stop 01/11/25 at 07:00; Status DC Succinylcholine Chloride 200 mg STK-MED ONCE .ROUTE; Start 01/11/25 at 07:00; Stop 01/11/25 at 07:00; Status DC Ketamine HCl 50 mg STK-MED ONCE .ROUTE; Start 01/11/25 at 07:00; Stop 01/11/25 at 07:01; Status DC Glycopyrrolate 1 mg STK-MED ONCE .ROUTE; Start 01/11/25 at 07:01; Stop 01/11/25 at 07:01; Status DC Sodium Chloride 10 ml STK-MED ONCE .ROUTE; Start 01/11/25 at 07:01; Stop 01/11/25 at 07:01; Status DC Phenylephrine HCl 10 mg STK-MED ONCE IV; Start 01/11/25 at 07:01; Stop 01/11/25 at 07:01; Status DC Midazolam HCl 2 mg STK-MED ONCE .ROUTE; Start 01/11/25 at 07:08; Stop 01/11/25 at 07:08; Status DC Ondansetron HCl 4 mg STK-MED ONCE .ROUTE; Start 01/11/25 at 07:34; Stop 01/11/25 at 07:35; Status DC Chlordiazepoxide HCl 25 mg Q8H PRN PO; Start 01/11/25 at 12:00; Stop 01/12/25 at 02:29; Status DC Heparin Sodium/ Dextrose 250 ml @ 0 mls/hr PROTOCOL IV Last administered on 01/17/25at 16:09; Start 01/11/25 at 14:30; Stop 01/18/25 at 13:28; Status DC Fluconazole 200 mg ONCE ONCE PO Last administered on 01/11/25at 15:18; Start 01/11/25 at 15:30; Stop 01/11/25 at 15:31; Status DC Fluconazole 200 mg DAILY PO Last administered on 01/25/25at 09:44; Start 01/12/25 at 09:00; Stop 01/25/25 at 16:12; Status DC Lactobacillus Rhamnosus 1 each DAILY PO Last administered on 01/29/25at 10:09; Start 01/12/25 at 09:00; Stop 02/11/25 at 08:59 Insulin Glargine 30 units DAILY SQ Last administered on 01/12/25at 11:25; Start 01/12/25 at 09:00; Stop 01/14/25 at 07:03; Status DC Insulin Human Regular INSULIN SLIDING SCAL... Q4H SQ Last administered on 01/18/25at 16:59; Start 01/11/25 at 23:59; Stop 01/18/25 at 19:33; Status DC Heparin Sodium (Porcine) 4,000 unit ONCE ONCE IV Last administered on 01/12/25at 22:36; Start 01/12/25 at 22:30; Stop 01/12/25 at 22:31; Status DC Iohexol 35,000 mg STK-MED ONCE IV; Start 01/13/25 at 12:56; Stop 01/13/25 at 12:57; Status DC Insulin Glargine 20 units DAILY SQ Last administered on 01/23/25at 09:41; Start 01/14/25 at 09:00; Stop 01/23/25 at 21:37; Status DC Insulin Human Regular 5 unit TIDAC SQ Last administered on 01/28/25at 16:50; Start 01/14/25 at 07:30; Stop 01/29/25 at 06:36; Status DC Aspirin 81 mg DAILY PO Last administered on 01/25/25at 09:45; Start 01/16/25 at 09:00; Stop 01/26/25 at 10:14; Status DC Pharmacy Profile Note 1 each ONCE MISC; Start 01/16/25 at 14:30; Stop 01/16/25 at 15:12; Status DC Dexamethasone Sodium Phosphate 10 mg STK-MED ONCE .ROUTE; Start 01/16/25 at 14:38; Stop 01/16/25 at 14:38; Status DC Dexamethasone Sodium Phosphate 10 mg STK-MED ONCE .ROUTE; Start 01/16/25 at 14:39; Stop 01/16/25 at 14:40; Status DC Cefazolin Sodium 2 gm Q8H IVPB Last administered on 01/17/25at 05:07; Start 01/16/25 at 21:30; Stop 01/17/25 at 13:22; Status DC Gentamicin Sulfate/Sodium Chloride 100 ml @ 200 mls/hr Q12H IV Last administered on 01/17/25at 16:00; Start 01/16/25 at 15:30; Stop 01/18/25 at 03:39; Status DC Acetaminophen 650 mg Q6H PRN PO Last administered on 01/29/25at 13:32; Start 01/16/25 at 17:30; Stop 02/15/25 at 17:29 Nafcillin Sodium 2 gm Q6H6 IV Last administered on 01/25/25at 12:18; Start 01/17/25 at 18:00; Stop 01/25/25 at 16:12; Status DC Melatonin 20 mg ONCE ONCE PO Last administered on 01/17/25at 22:00; Start 01/17/25 at 21:30; Stop 01/17/25 at 21:37; Status DC Gentamicin Sulfate/Sodium Chloride 100 ml @ 200 mls/hr Q12H IV Last administered on 01/20/25at 05:38; Start 01/18/25 at 04:00; Stop 01/20/25 at 06:41; Status DC Nystatin 100,000 UNITS 1 ML TO E... QID PO Last administered on 3/2/25at 17:20; Start 01/18/25 at 09:00; Stop 02/17/25 at 08:59 Apixaban 10 mg BID PO; Start 01/18/25 at 21:00; Stop 01/18/25 at 13:52; Status DC Apixaban 10 mg BID PO Last administered on 01/21/25at 08:45; Start 01/18/25 at 21:00; Stop 01/21/25 at 16:00; Status DC Apixaban 5 mg BID PO; Start 01/25/25 at 21:00; Stop 01/21/25 at 16:00; Status DC Insulin Human Regular INSULIN SLIDING SCAL... ACHS SQ Last administered on 01/28/25at 21:07; Start 01/18/25 at 21:00; Stop 01/28/25 at 22:15; Status DC Gentamicin Sulfate 150 mg/ Sodium Chloride 100 ml @ 100 mls/hr Q12H IV Last administered on 01/21/25at 16:00; Start 01/20/25 at 16:00; Stop 01/22/25 at 03:27; Status DC Iron Sucrose 300 mg Q24H IVP; Start 01/21/25 at 15:00; Stop 01/21/25 at 15:29; Status DC Iron Sucrose 300 mg/Sodium Chloride 250 ml @ 166.667 mls/hr Q24H IV; Start 01/21/25 at 16:00; Stop 01/21/25 at 17:22; Status DC Apixaban 5 mg BID PO Last administered on 01/22/25at 09:02; Start 01/21/25 at 21:00; Stop 01/23/25 at 10:57; Status DC Iron Sucrose 300 mg/Sodium Chloride 250 ml @ 166.667 mls/hr Q24H IV; Start 01/21/25 at 19:30; Stop 01/21/25 at 20:57; Status DC Iron Sucrose 300 mg/Sodium Chloride 250 ml @ 166.667 mls/hr Q24H IV Last administered on 01/23/25at 20:56; Start 01/21/25 at 21:00; Stop 01/23/25 at 22:29; Status DC Melatonin 10 mg HS PRN PO Last administered on 01/28/25at 23:37; Start 01/21/25 at 21:30; Stop 02/20/25 at 21:29 Gentamicin Sulfate 90 mg/ Sodium Chloride 50 ml @ 100 mls/hr Q8H IV; Start 01/22/25 at 03:30; Stop 01/22/25 at 03:30; Status DC Gentamicin Sulfate 90 mg/ Sodium Chloride 50 ml @ 100 mls/hr Q8H IV Last administered on 01/23/25at 12:54; Start 01/22/25 at 04:00; Stop 01/23/25 at 20: 03; Status DC Apixaban 5 mg BID PO Last administered on 01/27/25at 09:01; Start 01/23/25 at 21:00; Stop 01/27/25 at 10:16; Status DC Tramadol HCl 50 mg ONCE ONCE PO Last administered on 01/23/25at 18:44; Start 01/23/25 at 19:00; Stop 01/23/25 at 19:01; Status DC Gentamicin Sulfate/Sodium Chloride 100 ml @ 200 mls/hr BID@0600,1800 IV Last administered on 01/25/25at 05:48; Start 01/24/25 at 06:00; Stop 01/25/25 at 16:12; Status DC Insulin Glargine 15 units DAILY SQ Last administered on 01/29/25at 10:13; Start 01/24/25 at 09:00; Stop 02/23/25 at 08:59 Acetaminophen/ Hydrocodone Bitart 1 tab ONCE ONCE PO Last administered on 01/24/25at 02:51; Start 01/24/25 at 02:30; Stop 01/24/25 at 02:33; Status DC Pharmacy Profile Note 1 each ONCE MISC; Start 01/25/25 at 07:30; Stop 01/25/25 at 07:26; Status DC Furosemide 20 mg BIDPC IV Last administered on 01/26/25at 18:06; Start 01/25/25 at 10:00; Stop 01/26/25 at 18:01; Status DC Lidocaine 1 patch DAILY TP Last administered on 01/29/25at 10:07; Start 01/25/25 at 12:00; Stop 02/24/25 at 11:59 Pharmacy Profile Note 1 each ONCE MISC; Start 01/25/25 at 16:30; Stop 01/25/25 at 16:12; Status DC Linezolid 300 ml @ 300 mls/hr Q12H IV Last administered on 01/29/25at 10:08; Start 01/25/25 at 20:30; Stop 02/04/25 at 20:29 Pantoprazole Sodium 40 mg Q24H IVP Last administered on 01/29/25at 04:26; Start 01/26/25 at 04:30; Stop 02/25/25 at 04:29 Iohexol 35,000 mg STK-MED ONCE IV; Start 01/26/25 at 16:37; Stop 01/26/25 at 16:37; Status DC Dexamethasone Sodium Phosphate 10 mg/Sodium Chloride 51 ml @ 100 mls/hr DAILY IV Last administered on 01/28/25at 13:03; Start 01/28/25 at 09:00; Stop 01/29/25 at 10:57; Status DC Insulin Human Regular INSULIN SLIDING SCAL... ACHS SQ Last administered on 01/29/25at 10:11; Start 01/29/25 at 07:30; Stop 02/28/25 at 07:29 Insulin Human Regular 7 unit TIDAC SQ Last administered on 01/29/25at 17:22; Start 01/29/25 at 07:30; Stop 02/28/25 at 07:29 Ipratropium [place] 0.5 MG Q6H PRN IH; Start 01/29/25 at 11:00; Stop 02/28/25 at 10:59 Dexamethasone Sodium Phosphate 10 mg DAILY IVP Last administered on 01/29/25at 13:29; Start 01/29/25 at 11:00; Stop 02/28/25 at 10:59 MAITE RESTREPO MD Jan 29, 2025 19:19
[2025-01-30] VITALS (7 sets, daily range): BP systolic 121–151; BP diastolic 55–83; PULSE 9–96; RESP 18–20; TEMP 97.5–98.5; O2SAT 90–99
--- NOTE | 2025-01-30 07:26 | PN ---
GASTROENTEROLOGY PROGRESS NOTE Date of Visit: Jan 30, 2025 Time of Visit: 07:25 Events / Notes: No acute events overnight. Patient had EGD revealing LA Grade B esophagitis. Denies fever, chills, abdominal pain, N/V, hematemesis, bloating, constipation, diarrhea, melena or hematochezia. Hgb trended down slightly today. No overt GI bleeding. Review of Systems: CONSTITUTIONAL: No malaise or change in sensation of wellbeing. ENMT: No rhinorrhea, otorrhea, sinus pain, ear ache. CARDIOVASCULAR: No angina, palpitations, orthopnea or paroxysmal dyspnea. RESPIRATORY: No SOB. GASTROINTESTINAL: No abdominal pain, nausea, vomiting, diarrhea, hematemesis, melena or change in the patient's habitual bowel movements consistency/number. GENITOURINARY: No dysuria, hematuria or change in bladder continence. MUSCULOSKELETAL: No new muscle pain or decrease in muscular strength. No new joint swelling, redness or tenderness. SKIN: No new rash. Physical Exam: GEN: Awake, alert, oriented in person, time and place, and in no acute distress. HEENT: No sinus tenderness. Tympanic membranes were not examined. No rhinorrhea. Oral pharyngeal mucosa is pink, moist and within normal limits. Neck is supple with no cervical lymphadenopathy, thyromegaly or JVD. CHEST: Inspection, palpation and percussion of the chest were unremarkable. Lung auscultation revealed normal breath sounds bilaterally. CARDIAC: PMI is within normal limits. Heart sounds are regular. Normal S1, S2. No gallop or murmur. ABD: Soft, non-tender and not distended. No peritoneal signs on palpation. No organomegaly. Normal bowel sounds. EXT: No cyanosis or clubbing. No edema. SKIN: Intact. No rashes. JOINTS: No evidence of synovitis or acute arthritis. NEURO: Alert and oriented to name, place and person. Cranial nerve examination is unremarkable. No focal motor deficits. Normal speech. Gait is normal. Strength is normal. Vital Signs (last 8hr) Date Time Temp Pulse Resp B/P (MAP) Pulse Ox O2 Delivery O2 Flow Rate FiO2 01/30/25 04:04 98.4 66 18 121/55 96 Room Air 21 01/30/25 00:16 97.9 96 19 141/82 97 Room Air 21 Laboratory: [ ] Laboratory: Test 01/30/25 05:46 01/28/25 15:32 Range/Units Whole Blood Glucose 134 H 70-110 MG/DL Bedside Glucose Comment Notified Nurse Current Medications Medications (Trade) Dose Ordered Sig/Asya Route PRN Reason Start Time Stop Time Status Last Admin Dose Admin Acetaminophen (TYLenol 325MG TAB) 650 mg Q6H PRN PO MILD PAIN (1-3) 01/16/25 17:30 02/15/25 17:29 01/29/25 22:37 650 MG Acetaminophen (TYLenol 325MG TAB) 650 mg Q6H PRN PO TEMPERATURE GREATER THAN 101.5 01/05/25 02:30 02/04/25 02:29 01/28/25 23:37 650 MG Apixaban (EliquIS) 5 mg BID PO 01/21/25 21:00 01/23/25 10:57 DC 01/22/25 09:02 5 MG Apixaban (EliquIS) 5 mg BID PO 01/23/25 21:00 01/27/25 10:16 DC 01/27/25 09:01 5 MG Apixaban (EliquIS) 5 mg BID PO 01/25/25 21:00 01/21/25 16:00 DC Apixaban (EliquIS) 10 mg BID PO 01/18/25 21:00 01/18/25 13:52 DC Apixaban (EliquIS) 10 mg BID PO 01/18/25 21:00 01/21/25 16:00 DC 01/21/25 08:45 10 MG Aspirin (Aspirin 81mg Chew Tab) 81 mg DAILY PO 01/05/25 09:00 01/05/25 09:53 DC Aspirin (Aspirin 81mg Ec Tab) 81 mg DAILY PO 01/16/25 09:00 01/26/25 10:14 DC 01/25/25 09:45 81 MG Benzocaine (Cepacol Sore Throat Lozenge) 1 each Q4H PRN MM SORE THROAT 01/05/25 02:30 02/04/25 02:29 Calcium Gluconate 1 gm/Sodium Chloride 100 ml @ 0 mls/hr AD PRN IV Serum Calcium Correction 01/08/25 02:30 02/07/25 02:29 01/08/25 23:32 90 MLS/HR Cefazolin Sodium (Ancef) 2 gm Q12H IVPB 01/07/25 13:30 01/16/25 14:43 DC 01/16/25 01:12 2 GM Cefazolin Sodium (Ancef) 2 gm Q8H IVPB 01/16/25 21:30 01/17/25 13:22 DC 01/17/25 05:07 2 GM Chlordiazepoxide HCl (LIBrium 25 MG CAP) 25 mg Q8H PO 01/05/25 02:30 01/11/25 11:39 DC 01/10/25 22:23 25 MG Chlordiazepoxide HCl (LIBrium 25 MG CAP) 25 mg Q8H PRN PO WITHDRAWAL 01/11/25 12:00 01/12/25 02:29 DC Dexamethasone Sodium Phosphate (dexaMETHasone 10MG/ML 1ML VIAL) 10 mg DAILY IVP 01/29/25 11:00 02/28/25 10:59 01/29/25 13:29 10 MG Dexamethasone Sodium Phosphate 10 mg/Sodium Chloride 51 ml @ 100 mls/hr DAILY IV 01/28/25 09:00 01/29/25 10:57 DC 01/28/25 13:03 100 MLS/HR Dexamethasone Sodium Phosphate 20 mg/Sodium Chloride 52 ml @ 100 mls/hr DAILY IV 01/09/25 09:00 01/27/25 19:04 DC 01/27/25 09:16 100 MLS/HR Dexamethasone Sodium Phosphate 40 mg/Sodium Chloride 50 ml @ 100 mls/hr DAILY IV 01/06/25 14:00 01/08/25 12:16 DC 01/08/25 09:34 100 MLS/HR Dextrose (D50w) 50 ml AD PRN IV HYPOGLYCEMIA PROTOCOL 01/05/25 10:00 02/04/25 09:59 Doxycycline Hyclate 250 ml @ 125 mls/hr Q12H IV 01/05/25 10:00 01/06/25 21:05 DC 01/06/25 09:30 125 MLS/HR Doxycycline Hyclate 250 ml @ 125 mls/hr Q12H IV 01/06/25 21:30 01/16/25 14:23 DC 01/16/25 10:13 125 MLS/HR Fluconazole (DiFLUCan 100 mg TAB) 200 mg DAILY PO 01/12/25 09:00 01/25/25 16:12 DC 01/25/25 09:44 200 MG Folic Acid (FOLic ACID 1 MG TABLET) 1 mg DAILY PO 01/07/25 10:30 02/06/25 10:29 01/29/25 10:10 1 MG Furosemide (LASix 20MG VIAL) 20 mg BIDPC IV 01/25/25 10:00 01/26/25 18:01 DC 01/26/25 18:06 20 MG Furosemide (LASix 20MG VIAL) 20 mg Q12H IV 01/07/25 16:00 01/11/25 00:56 DC 01/10/25 19:40 20 MG Gentamicin Sulfate 150 mg/ Sodium Chloride 100 ml @ 100 mls/hr Q12H IV 01/20/25 16:00 01/22/25 03:27 DC 01/21/25 16:00 100 MLS/HR Gentamicin Sulfate 90 mg/ Sodium Chloride 50 ml @ 100 mls/hr Q8H IV 01/22/25 03:30 01/22/25 03:30 DC Gentamicin Sulfate 90 mg/ Sodium Chloride 50 ml @ 100 mls/hr Q8H IV 01/22/25 04:00 01/23/25 20:03 DC 01/23/25 12:54 100 MLS/HR Gentamicin Sulfate/Sodium Chloride 100 ml @ 200 mls/hr BID@0600,1800 IV 01/24/25 06:00 01/25/25 16:12 DC 01/25/25 05:48 200 MLS/HR Gentamicin Sulfate/Sodium Chloride 100 ml @ 200 mls/hr Q12H IV 01/16/25 15:30 01/18/25 03:39 DC 01/17/25 16:00 200 MLS/HR Gentamicin Sulfate/Sodium Chloride 100 ml @ 200 mls/hr Q12H IV 01/18/25 04:00 01/20/25 06:41 DC 01/20/25 05:38 200 MLS/HR Glucagon (Glucagon 1mg Kit) 1 mg AD PRN IM HYPOGLYCEMIA PROTOCOL 01/05/25 10:00 02/04/25 09:59 Heparin Sodium/ Dextrose 250 ml @ 0 mls/hr PROTOCOL IV 01/11/25 14:30 01/18/25 13:28 DC 01/17/25 16:09 13.99 MLS/HR Hydralazine HCl (APRESOLine 20MG INJ) 5 mg Q6H PRN IV For:SBP above 160;DBP above 90 01/05/25 14:30 02/04/25 14:29 01/10/25 22:24 5 MG Hydralazine HCl (APRESOLine 20MG INJ) 10 mg Q6H PRN IV For:SBP above 160;DBP above 90 01/05/25 02:30 01/05/25 09:53 DC Insulin Glargine (LANtus 100 UNITS/ML 10 ML VIAL) 15 units DAILY SQ 01/24/25 09:00 02/23/25 08:59 01/29/25 10:13 15 UNITS Insulin Glargine (LANtus 100 UNITS/ML 10 ML VIAL) 15 units Q12H SQ 01/07/25 21:30 01/09/25 23:18 DC 01/09/25 13:10 15 UNITS Insulin Glargine (LANtus 100 UNITS/ML 10 ML VIAL) 20 units DAILY SQ 01/14/25 09:00 01/23/25 21:37 DC 01/23/25 09:41 20 UNITS Insulin Glargine (LANtus 100 UNITS/ML 10 ML VIAL) 20 units HS SQ 01/06/25 21:00 01/06/25 21:05 DC Insulin Glargine (LANtus 100 UNITS/ML 10 ML VIAL) 20 units HS SQ 01/06/25 21:30 01/07/25 10:24 DC 01/06/25 21:33 20 UNITS Insulin Glargine (LANtus 100 UNITS/ML 10 ML VIAL) 20 units Q12H SQ 01/10/25 09:30 01/10/25 12:58 DC Insulin Glargine (LANtus 100 UNITS/ML 10 ML VIAL) 25 units Q12H SQ 01/10/25 21:30 01/11/25 00:50 DC 01/10/25 22:19 25 UNITS Insulin Glargine (LANtus 100 UNITS/ML 10 ML VIAL) 30 units DAILY SQ 01/12/25 09:00 01/14/25 07:03 DC 01/12/25 11:25 30 UNITS Insulin Glargine (LANtus 100 UNITS/ML 10 ML VIAL) 30 units Q12H SQ 01/11/25 09:30 01/11/25 20:13 DC 01/11/25 10:50 30 UNITS Insulin Human Regular (humuLIN R 100 UNIT/ML 3ML) 5 unit TIDAC SQ 01/14/25 07:30 01/29/25 06:36 DC 01/28/25 16:50 5 UNIT Insulin Human Regular (humuLIN R 100 UNIT/ML 3ML) 7 unit TIDAC SQ 01/29/25 07:30 02/28/25 07:29 01/29/25 17:22 7 UNIT Insulin Human Regular (humuLIN R 100 UNIT/ML 3ML) 8 unit TIDAC SQ 01/11/25 07:30 01/14/25 07:03 DC 01/13/25 19:47 8 UNIT Insulin Human Regular (humuLIN R 100 UNIT/ML 3ML) INSULIN SLIDING SCAL... ACHS SQ 01/18/25 21:00 01/28/25 22:15 DC 01/28/25 21:07 7 UNIT Insulin Human Regular (humuLIN R 100 UNIT/ML 3ML) INSULIN SLIDING SCAL... ACHS SQ 01/05/25 07:30 01/05/25 09:57 DC 01/05/25 07:59 16 UNIT Insulin Human Regular (humuLIN R 100 UNIT/ML 3ML) INSULIN SLIDING SCAL... ACHS SQ 01/05/25 11:30 01/06/25 16:43 DC 01/06/25 11:50 8 UNIT Insulin Human Regular (humuLIN R 100 UNIT/ML 3ML) INSULIN SLIDING SCAL... ACHS SQ 01/06/25 17:00 01/07/25 13:32 DC 01/06/25 17:17 16 UNIT Insulin Human Regular (humuLIN R 100 UNIT/ML 3ML) INSULIN SLIDING SCAL... ACHS SQ 01/29/25 07:30 02/28/25 07:29 01/29/25 20:49 8 UNIT Insulin Human Regular (humuLIN R 100 UNIT/ML 3ML) INSULIN SLIDING SCAL... Q4H SQ 01/11/25 02:00 01/11/25 23:59 DC 01/11/25 20:49 6 UNIT Insulin Human Regular (humuLIN R 100 UNIT/ML 3ML) INSULIN SLIDING SCAL... Q4H SQ 01/11/25 23:59 01/18/25 19:33 DC 01/18/25 16:59 4 UNIT Insulin Human Regular (humuLIN R 100 UNIT/ML 3ML) INSULIN SLIDING SCAL... Q6H6 SQ 01/10/25 18:00 01/11/25 00:50 DC 01/11/25 00:45 10 UNIT Insulin Human Regular 100 unit/ Sodium Chloride 100 ml @ 0 mls/hr AD PRN IV HYPERGLYCEMIA PROTOCOL 01/06/25 19:30 01/10/25 06:00 DC 01/09/25 19:10 16 MLS/HR Ipratropium [place] (AtrovENT UD) 0.5 MG Q6H PRN IH SHORTNESS OF BREATH 01/29/25 11:00 02/28/25 10:59 Iron Sucrose (VenoFER) 300 mg Q24H IVP 01/21/25 15:00 01/21/25 15:29 DC Iron Sucrose 300 mg/Sodium Chloride 250 ml @ 166.667 mls/hr Q24H IV 01/21/25 16:00 01/21/25 17:22 DC Iron Sucrose 300 mg/Sodium Chloride 250 ml @ 166.667 mls/hr Q24H IV 01/21/25 19:30 01/21/25 20:57 DC Iron Sucrose 300 mg/Sodium Chloride 250 ml @ 166.667 mls/hr Q24H IV 01/21/25 21:00 01/23/25 22:29 DC 01/23/25 20:56 166.667 MLS/HR Lactated Ringer's 1,000 ml @ 100 mls/hr Q10H IV 01/05/25 02:30 01/05/25 09:51 DC 01/05/25 02:30 100 MLS/HR Lactated Ringer's 1,000 ml @ 125 mls/hr Q8H IV 01/10/25 01:30 01/10/25 19:40 DC 01/10/25 13:07 125 MLS/HR Lactobacillus Rhamnosus ([facility] [place] [employer] [employer]) 1 each DAILY PO 01/12/25 09:00 02/11/25 08:59 01/29/25 10:09 1 EACH Lidocaine (Lidoderm Patch 5%) 1 patch DAILY TP 01/25/25 12:00 02/24/25 11:59 01/29/25 10:07 1 PATCH Linezolid 300 ml @ 300 mls/hr Q12H IV 01/25/25 20:30 02/04/25 20:29 01/29/25 20:41 300 MLS/HR Lorazepam (AtiVAN) 1 mg Q4H PRN IVP ALCOHOL WITHDRAWAL PROTOCOL 01/05/25 02:30 01/12/25 02:29 DC Magnesium Sulfate 50 ml @ 0 mls/hr PROTOCOL PRN IV h 01/05/25 02:30 02/04/25 02:29 01/25/25 10:44 25 MLS/HR Melatonin (Melatonin) 10 mg HS PRN PO INSOMNIA 01/21/25 21:30 02/20/25 21:29 01/29/25 22:28 10 MG Morphine Sulfate (morPHINE 2MG SYG) 2 mg Q4H PRN IVP SEVERE PAIN (7-10) 01/05/25 02:30 01/12/25 02:29 DC Multivitamins Therapeutic (Multivitamin Tablet) 1 tab DAILY PO 01/07/25 10:30 02/06/25 10:29 01/29/25 10:10 1 TAB Nafcillin Sodium (Nafcillin 2gm+ NS 100ml) 2 gm Q6H6 IV 01/17/25 18:00 01/25/25 16:12 DC 01/25/25 12:18 2 GM Nicotine (Nicoderm) 21 mg DAILY TD 01/05/25 09:00 02/04/25 08:59 01/29/25 10:09 21 MG Nitroglycerin (Nitrostat) 0.4 mg AD PRN SL CHEST PAIN 01/05/25 02:30 02/04/25 02:29 Nystatin (NYSTatin 070356 UNIT/ML 5ML UDCUP) 100,000 UNITS 1 ML TO E... QID PO 01/18/25 09:00 02/17/25 08:59 01/29/25 20:40 1 ML Ondansetron HCl (zoFRAN 4MG INJ) 4 mg Q6H PRN IV NAUSEA/VOMITING 01/05/25 02:30 02/04/25 02:29 Pantoprazole Sodium (PROTonix 40MG INJ) 40 mg Q24H IVP 01/26/25 04:30 02/25/25 04:29 01/30/25 03:54 40 MG Pantoprazole Sodium (PROTonix 40MG TAB) 40 mg DAILY PO 01/05/25 09:00 01/26/25 04:16 DC 01/25/25 09:45 40 MG Pharmacy Profile Note (Pharmacy Communication) 1 each ONCE MISC 01/16/25 14:30 01/16/25 15:12 DC Pharmacy Profile Note (Pharmacy Communication) 1 each ONCE MISC 01/25/25 07:30 01/25/25 07:26 DC Pharmacy Profile Note (Pharmacy Communication) 1 each ONCE MISC 01/25/25 16:30 01/25/25 16:12 DC Pharmacy Profile Note (Pharmacy Communication) 1 each PROTOCOL PRN MISC ETOH Withdrawal Score changes 01/05/25 02:30 01/12/25 02:29 DC Piperacillin Sod/ Tazobactam Sod (Zosyn 3.375gm+NS 50ml) 3.375 gm Q12H IV 01/05/25 02:30 01/07/25 13:24 DC 01/07/25 02:45 3.375 GM Potassium Phosphate 250 ml @ 42 mls/hr PROTOCOL PRN IV PROTOCOL 01/05/25 10:00 02/04/25 09:59 Potassium Chloride 100 ml @ 100 mls/hr AD PRN IV POTASSIUM PROTOCOL 01/05/25 02:30 01/07/25 10:12 DC Potassium Chloride 100 ml @ 100 mls/hr AD PRN IV POTASSIUM PROTOCOL 01/07/25 10:30 02/06/25 10:29 01/09/25 06:26 100 MLS/HR Potassium Chloride (K-Dur 10meq Sr Tab) 10 meq AD PRN PO POTASSIUM PROTOCOL 01/06/25 09:30 02/04/25 02:29 01/08/25 23:35 10 MEQ Potassium Chloride (K-Dur/Klor-Con 20meq) 10 meq AD PRN PO POTASSIUM PROTOCOL 01/05/25 02:30 01/06/25 09:12 DC 01/05/25 22:15 10 MEQ Potassium Chloride (K-Dur/Klor-Con 20meq) 10 meq AD PRN PO POTASSIUM PROTOCOL 01/07/25 10:30 01/07/25 10:12 DC Potassium Chloride (KCl 10% Elixir 20meq/15ml) 10 meq AD PRN PO POTASSIUM PROTOCOL 01/05/25 02:30 01/07/25 10:12 DC 01/06/25 17:16 10 MEQ Potassium Chloride (KCl 10% Elixir 20meq/15ml) 10 meq AD PRN PO POTASSIUM PROTOCOL 01/07/25 10:30 02/06/25 10:29 01/23/25 15:27 10 MEQ Sodium Bicarbonate (Sodium Bicarbonate) 1,300 mg BID PO 01/11/25 09:00 02/10/25 08:59 01/29/25 20:40 1,300 MG Sodium Chloride 1,000 ml @ 50 mls/hr Q20H IV 01/05/25 10:00 01/10/25 01:33 DC 01/09/25 05:56 50 MLS/HR Sodium Chloride 1,000 ml @ 75 mls/hr [id number] IV 01/11/25 01:00 01/11/25 13:45 DC 01/11/25 01:00 75 MLS/HR Triamcinolone Acetonide (Kenalog/ Aristocort) 1 APPLY TP BID BID TP 01/07/25 11:00 02/06/25 10:59 01/29/25 20:41 1 APPL Vancomycin HCl (Vancomycin Protocol) 1 each AD IV 01/07/25 12:30 01/07/25 12:40 DC Diagnostics / Radiology: [COPY/PASTE HERE IF NO REPORTS PLEASE DELETE SECTION] Assessment: GERD esophagitis Decompensated cirrhosis Thrombocytopenia Abnormal troponin Alcohol abuse Plan: Follow cardio recommendations Will obtain liver serologies to r/o other liver pathology Please contact our service if the patient has significant bleeding such as hematemesis and we can proceed sooner with the EGD Thanks you for allowing us to participate in the care of this patient! HILDA MUIR [employer] Jan 30, 2025 07:25
--- NOTE | 2025-01-30 09:38 | PN ---
[facility] PROGRESS NOTE Date of Service: Jan 30, 2025 Time of Service: 09:38 SUBJECTIVE: [ ] The patient has been seen and examined at bedside, no acute events overnight, the patient is comfortable, cooperating well, alert oriented x3, he is on a CIWA protocol, not combative. BP 123/70, rest of vital signs unremarkable. Patient received transfusion of 1 unit of platelet, platelet count improved to 27, per passenger car upholsterer apprentice, likely due to splenomegaly. Echocardiogram reviewed, hypodense echogenic mobile vegetation to right coronary cusp leaflet, per cardiology once platelet count is greater than 50 1000 we will proceed with a a DRAKE. The pat ient also with a elevated blood sugar, continue insulin sliding scale, add insulin glargine 20 units subcutaneously at bedtime. Continue the patient on broad-spectrum IV antibiotics, continue to trend WBC in a.m.. 01/07 patient is seen and examined at bedside, case discussed with the RN, patient upgraded last night to the ICU to start insulin drip as blood glucose pers istently greater than 400. Patient started on dexamethasone IV by passenger car upholsterer apprentice do to ITP. Platelet count slightly better today at 41. Upon my initial encounter with the patient admitted that he drinks more than 18 beers per day. He was started on CIWA protocol, however has remained hemodynamically stable, comfortable in bed, no signs of withdrawal, cooperating fine. Not agitated, not combative. Toxicology screen positive for cocaine. Sodium level slowly improving, today 132. Serology positive for influenza type A. The patient with significant proteinuria consistent with diabetic nephropathy, creatinine slowly trending down, no need for renal replacement therapy per carpet sewing machine operator. Patient with blood culture positive for Staphylococcus aureus, with urine culture positive for Klebsiella pneumoniae. We will add vancomycin IV pharmacy to dose. We will request Infectious Disease consultation. Echocardiogram reviewed, hypodense echogenic mobile vegetation to right coronary cusp leaflet, per cardiology once platelet count is greater than 50 1000 we will proceed with a a DRAKE. CT abdomen with gallstones in the gallbladder. HIDA scan pending 01/08 patient seen at bedside, no acute events overnight. He continues on insulin drip with an anion gap of 14, we will continue until the gap is closed. Pl atelets 54, we will follow up with Cardiology on optimal timing for DRAKE. Continue with IV antibiotics, further care per critical Care. 01/09 patient seen at bedside, no acute events overnight. Anion gap is still open at 14, we will continue IV insulin. Platelets improved from 54 up to 71, CO2 decreased from 17 down to 15. Cardiology planning on DRAKE today, we will follow up postprocedure. Repeat blood cultures are positive for Gram-positive organisms which further supports underlying endocarditis. Continue with IV antibiotics, appreciate Infectious Disease recommendations. He has been afebrile, hemodynamically stable saturating well on room air. WBC increased from 12.8 up to 13.6, BUN decreased from 93 down to 90, creatinine decreased from 2.5 down to 2.3, remainder of his labs are relatively unremarkable. 01/10 Pt seen at bedside, no acute events overnight. Pt with anion gap of 14, CO2 still low at 16. Repeat lactic acid was ordered, elevated at 4.8, will bolus patient and continue with IV fluids. DRAKE was rescheduled to today, will follow up with results.WBC improved from 13.6 down to 11.7, Hgb decreased from 15.1 down to 12.4, platelets decreased from 71 down to 66, this substantial decrease in all cell lines suggests hemodilution, creatinine decreased from 2.2 down to 1.4, also likely falsely depressed. 01/11 Pt seen at bedside, no acute events overnight. Pending EGD to assess for esophageal varices and DRAKE today, will follow up post procedure. Yesterday repeat lactic acid was elevated at 4.8, the patient was bolused and it improved down to 1.3. He has been afebrile, hemodynamically stable, saturating well on room air. WBC increased from 11.7 up to 12.5, platelets improved from 66 up to 113, creatinine increased from 1.6 up to 1.8, CO2 improved from 17 up to 22 after patient was started on bicarb. Third set of blood cultures growing gram positive organisms 01/12 patient is seen and examined at bedside, case discussed with the RN, no acute events overnight, remains on broad-spectrum IV antibiotics, alert oriented x3, following commands. Patient underwent DRAKE 01/11, tolerated well, LVEF 60- 65%, no left ventricle thrombus noted. Right ventricle is severely dilated. Left atrial appendage clot present. No mass or thrombus in the left atrium. No mass or thrombus in the right atrium. Aortic valve is trileaflet, opens well, non coronary cusp leaflet has vegetation that measures 1.8 x 1.1 cm. No mitral valve vegetation, no tricuspid valve vegetation, no pulmonic valve vegetation. Finding discussed with the patient, all questions answered. 01/13 patient is seen and examined at bedside, case discussed with the RN, no acute events overnight, during my visit the patient comfortably in bed, hemodynamically stable, alert oriented x3, getting IV antibiotics, denies chest pain, no shortness a breath, no nausea, no vomiting. 01/14 patient is seen and examined at bedside, downgraded to the medical floor, case discussed with the RN, patient hemodynamically stable, alert oriented x3, on heparin drip, no chest pain, no shortness a breath, no nausea, no vomiting. 01/15 patient is seen and examined bedside, case discussed with the RN, no acute events overnight. Patient with blood culture positive for Staphylococcus aureus, with urine culture positive for Klebsiella pneumoniae. Patient underwent DRAKE 01/11, tolerated well, LVEF 60-65%, no left ventricle thrombus noted. Right ventricle is severely dilated. Left atrial appendage clot present. No mass or thrombus in the left atrium. No mass or thrombus in the right atrium. Aortic valve is trileaflet, opens well, non coronary cusp leaflet has vegetation that measures 1.8 x 1.1 cm. No mitral valve vegetation, no tricuspid valve vegetation, no pulmonic valve vegetation. Continue heparin drip. Patient evaluated by Cardiothoracic surgeon. Medical management recommended for now. Re-evaluate possibility of aortic valve replacement in the near future. 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 Continue to follow Hematology input and recommendation Discharge plan discussed with case management, patient is uninsured, probably will have to remain admitted until completion of IV antibiotic course. 01/16 Pt seen at bedside, no acute events overnight. Most recent blood cultures are no growth to date. CV surgery suggesting aortic valve replacement may be feasible if patient recent blood cultures no growth for another 5 days. If valve replacement will not be done, patient will need to complete full course of IV antibiotics before discharge as he is unfunded. Vitals and labs are relatively unremarkable 01/17 patient seen at bedside, no acute events overnight. Most recent blood cultures are growing Gram-positive organism, we will continue with IV antibiotics. Antibiotics have been adjusted by Infectious Disease, surgery will be held. 01/18 patient seen at bedside, no acute events overnight. Continue with broad- spectrum antibiotics, we will follow up with cardiovascular surgery regarding possible surgery once infection better controlled. Discussed case with passenger car upholsterer apprentice who recommends heparin drip however patient we will need to be anticoagulated on discharge and given his own fundus status we will likely need to be started on warfarin. Vitals and labs relatively unremarkable. 01/19 patient seen at bedside, no acute events overnight. Continue with broad- spectrum antibiotics, we will follow up with cardiovascular surgery regarding possible surgery once infection better controlled. Patient started on eliquis. Hgb decreased from 9.6 down to 9.0, Vitals and labs otherwise relatively unremarkable. 01/20 patient seen at bedside, no acute events overnight. Continue with broad- spectrum antibiotics, we will follow up with cardiovascular surgery regarding possible surgery once infection better controlled. Patient started on eliquis. Hgb decreased from 9.0 down to 8.5, Vitals and labs otherwise relatively unremarkable. 01/21 Pt seen at bedside, no acute events overnight. Continue broad spectrum ant ibiotics. Lab holiday today, continue with anticoagulation and broad spectrum antibiotics. 01/22 Pt seen at bedside, no acute events overnight. Continue broad spectrum antibiotics. Lab holiday today, continue with anticoagulation and broad spectrum antibiotics. 01/23/25 patient was seen and examined. Case discussed with the RN. No acute overnight events reported. Continue with the antibiotics 01/24/25 Pt seen at bedside, no acute events overnight. Continue broad spectrum antibiotics. check labs /continue with anticoagulation and broad spectrum antibiotics. 01/25/25 patient was seen and examined. Case discussed with the RN. No acute overnight events reported. Continue with the antibiotics 01/26/25 patient was seen and examined. Case discussed with the RN. No acute overnight events reported. Continue with the antibiotics 01/27/25 Pt seen at bedside, no acute events overnight. Continue broad spectrum antibiotics. check labs /continue with anticoagulation and broad spectrum antibiotics 01/28/25 patient was seen and examined. Continue broad-spectrum antibiotics. Continue current care no acute overnight events reported 01/29/25 patient was seen and examined. Case discussed with RN. Pulmonology is ordering a CTA/Cardiology by do a repeat DRAKE. Planning six weeks of IV antibiotics 01/30/25 Patient was examined at bedside. Case discussed with RN. Patient is now presenting with new hypoxia, dyspnea and shortness of breaths was not hypoxic yesterday. And patient is having persistent dry cough. General condition is otherwise overall stable. PICC line is clotted currently maintaining NS. Denies fever chills chest pain palpitation nausea vomiting hematemesis melena hematochezia or abdominal pain. REVIEW OF SYSTEMS 12 point review of systems negative unless noted in HPI PHYSICAL EXAM GENERAL APPEARANCE: The patient is awake, alert, and oriented, in no acute cardiopulmonary distress. NEUROLOGICAL: Cranial nerves II-XII grossly intact. Motor is 5/5 in bilateral upper and lower extremities proximal to distal. No sensory deficits. HEENT: Face is symmetric. Pupils are equal and reactive. Extraocular movements are intact. NECK: Supple. No JVD. No thyromegaly. No submental, submandibular, pre-/postauricular, occipital or supraclavicular lymphadenopathy. CHEST: Normal chest expansion. No Telemetry. LUNGS: Absence of any rales, rhonchi or any wheezing. CARDIOVASCULAR: Regular. S1 and S2 normal. No appreciable rubs, murmurs or gallops. ABDOMEN: Soft, nontender, and nondistended. There is no rebound, voluntary guarding, or rigidity. : Deferred. No Ortega. EXTREMITIES: Non-edematous and not cyanotic. No clubbing. Good capillary refill. SKIN: No skin breakdown. Vital Signs (last 8hr) Date Time Temp Pulse Resp B/P (MAP) Pulse Ox O2 Delivery O2 Flow Rate FiO2 01/30/25 08:00 97.5 91 20 151/83 92 Room Air 01/30/25 04:04 98.4 66 18 121/55 96 Room Air 21 LABS: Laboratory: Test 01/30/25 05:46 01/28/25 15:32 Range/Units Whole Blood Glucose 134 H 70-110 MG/DL Bedside Glucose Comment Notified Nurse Current Medications Medications (Trade) Dose Ordered Sig/Asya Route PRN Reason Start Time Stop Time Status Last Admin Dose Admin Acetaminophen (TYLenol 325MG TAB) 650 mg Q6H PRN PO MILD PAIN (1-3) 01/16/25 17:30 02/15/25 17:29 01/29/25 22:37 650 MG Acetaminophen (TYLenol 325MG TAB) 650 mg Q6H PRN PO TEMPERATURE GREATER THAN 101.5 01/05/25 02:30 02/04/25 02:29 01/30/25 08:58 650 MG Apixaban (EliquIS) 5 mg BID PO 01/21/25 21:00 01/23/25 10:57 DC 01/22/25 09:02 5 MG Apixaban (EliquIS) 5 mg BID PO 01/23/25 21:00 01/27/25 10:16 DC 01/27/25 09:01 5 MG Apixaban (EliquIS) 5 mg BID PO 01/25/25 21:00 01/21/25 16:00 DC Apixaban (EliquIS) 10 mg BID PO 01/18/25 21:00 01/18/25 13:52 DC Apixaban (EliquIS) 10 mg BID PO 01/18/25 21:00 01/21/25 16:00 DC 01/21/25 08:45 10 MG Aspirin (Aspirin 81mg Chew Tab) 81 mg DAILY PO 01/05/25 09:00 01/05/25 09:53 DC Aspirin (Aspirin 81mg Ec Tab) 81 mg DAILY PO 01/16/25 09:00 01/26/25 10:14 DC 01/25/25 09:45 81 MG Benzocaine (Cepacol Sore Throat Lozenge) 1 each Q4H PRN MM SORE THROAT 01/05/25 02:30 02/04/25 02:29 Calcium Gluconate 1 gm/Sodium Chloride 100 ml @ 0 mls/hr AD PRN IV Serum Calcium Correction 01/08/25 02:30 02/07/25 02:29 01/08/25 23:32 90 MLS/HR Cefazolin Sodium (Ancef) 2 gm Q12H IVPB 01/07/25 13:30 01/16/25 14:43 DC 01/16/25 01:12 2 GM Cefazolin Sodium (Ancef) 2 gm Q8H IVPB 01/16/25 21:30 01/17/25 13:22 DC 01/17/25 05:07 2 GM Chlordiazepoxide HCl (LIBrium 25 MG CAP) 25 mg Q8H PO 01/05/25 02:30 01/11/25 11:39 DC 01/10/25 22:23 25 MG Chlordiazepoxide HCl (LIBrium 25 MG CAP) 25 mg Q8H PRN PO WITHDRAWAL 01/11/25 12:00 01/12/25 02:29 DC Dexamethasone Sodium Phosphate (dexaMETHasone 10MG/ML 1ML VIAL) 10 mg DAILY IVP 01/29/25 11:00 02/28/25 10:59 01/30/25 08:58 10 MG Dexamethasone Sodium Phosphate 10 mg/Sodium Chloride 51 ml @ 100 mls/hr DAILY IV 01/28/25 09:00 01/29/25 10:57 DC 01/28/25 13:03 100 MLS/HR Dexamethasone Sodium Phosphate 20 mg/Sodium Chloride 52 ml @ 100 mls/hr DAILY IV 01/09/25 09:00 01/27/25 19:04 DC 01/27/25 09:16 100 MLS/HR Dexamethasone Sodium Phosphate 40 mg/Sodium Chloride 50 ml @ 100 mls/hr DAILY IV 01/06/25 14:00 01/08/25 12:16 DC 01/08/25 09:34 100 MLS/HR Dextrose (D50w) 50 ml AD PRN IV HYPOGLYCEMIA PROTOCOL 01/05/25 10:00 02/04/25 09:59 Doxycycline Hyclate 250 ml @ 125 mls/hr Q12H IV 01/05/25 10:00 01/06/25 21:05 DC 01/06/25 09:30 125 MLS/HR Doxycycline Hyclate 250 ml @ 125 mls/hr Q12H IV 01/06/25 21:30 01/16/25 14:23 DC 01/16/25 10:13 125 MLS/HR Fluconazole (DiFLUCan 100 mg TAB) 200 mg DAILY PO 01/12/25 09:00 01/25/25 16:12 DC 01/25/25 09:44 200 MG Folic Acid (FOLic ACID 1 MG TABLET) 1 mg DAILY PO 01/07/25 10:30 02/06/25 10:29 01/30/25 08:58 1 MG Furosemide (LASix 20MG VIAL) 20 mg BIDPC IV 01/25/25 10:00 01/26/25 18:01 DC 01/26/25 18:06 20 MG Furosemide (LASix 20MG VIAL) 20 mg Q12H IV 01/07/25 16:00 01/11/25 00:56 DC 01/10/25 19:40 20 MG Gentamicin Sulfate 150 mg/ Sodium Chloride 100 ml @ 100 mls/hr Q12H IV 01/20/25 16:00 01/22/25 03:27 DC 01/21/25 16:00 100 MLS/HR Gentamicin Sulfate 90 mg/ Sodium Chloride 50 ml @ 100 mls/hr Q8H IV 01/22/25 03:30 01/22/25 03:30 DC Gentamicin Sulfate 90 mg/ Sodium Chloride 50 ml @ 100 mls/hr Q8H IV 01/22/25 04:00 01/23/25 20:03 DC 01/23/25 12:54 100 MLS/HR Gentamicin Sulfate/Sodium Chloride 100 ml @ 200 mls/hr BID@0600,1800 IV 01/24/25 06:00 01/25/25 16:12 DC 01/25/25 05:48 200 MLS/HR Gentamicin Sulfate/Sodium Chloride 100 ml @ 200 mls/hr Q12H IV 01/16/25 15:30 01/18/25 03:39 DC 01/17/25 16:00 200 MLS/HR Gentamicin Sulfate/Sodium Chloride 100 ml @ 200 mls/hr Q12H IV 01/18/25 04:00 01/20/25 06:41 DC 01/20/25 05:38 200 MLS/HR Glucagon (Glucagon 1mg Kit) 1 mg AD PRN IM HYPOGLYCEMIA PROTOCOL 01/05/25 10:00 02/04/25 09:59 Heparin Sodium/ Dextrose 250 ml @ 0 mls/hr PROTOCOL IV 01/11/25 14:30 01/18/25 13:28 DC 01/17/25 16:09 13.99 MLS/HR Hydralazine HCl (APRESOLine 20MG INJ) 5 mg Q6H PRN IV For:SBP above 160;DBP above 90 01/05/25 14:30 02/04/25 14:29 01/10/25 22:24 5 MG Hydralazine HCl (APRESOLine 20MG INJ) 10 mg Q6H PRN IV For:SBP above 160;DBP above 90 01/05/25 02:30 01/05/25 09:53 DC Insulin Glargine (LANtus 100 UNITS/ML 10 ML VIAL) 15 units DAILY SQ 01/24/25 09:00 02/23/25 08:59 01/29/25 10:13 15 UNITS Insulin Glargine (LANtus 100 UNITS/ML 10 ML VIAL) 15 units Q12H SQ 01/07/25 21:30 01/09/25 23:18 DC 01/09/25 13:10 15 UNITS Insulin Glargine (LANtus 100 UNITS/ML 10 ML VIAL) 20 units DAILY SQ 01/14/25 09:00 01/23/25 21:37 DC 01/23/25 09:41 20 UNITS Insulin Glargine (LANtus 100 UNITS/ML 10 ML VIAL) 20 units HS SQ 01/06/25 21:00 01/06/25 21:05 DC Insulin Glargine (LANtus 100 UNITS/ML 10 ML VIAL) 20 units HS SQ 01/06/25 21:30 01/07/25 10:24 DC 01/06/25 21:33 20 UNITS Insulin Glargine (LANtus 100 UNITS/ML 10 ML VIAL) 20 units Q12H SQ 01/10/25 09:30 01/10/25 12:58 DC Insulin Glargine (LANtus 100 UNITS/ML 10 ML VIAL) 25 units Q12H SQ 01/10/25 21:30 01/11/25 00:50 DC 01/10/25 22:19 25 UNITS Insulin Glargine (LANtus 100 UNITS/ML 10 ML VIAL) 30 units DAILY SQ 01/12/25 09:00 01/14/25 07:03 DC 01/12/25 11:25 30 UNITS Insulin Glargine (LANtus 100 UNITS/ML 10 ML VIAL) 30 units Q12H SQ 01/11/25 09:30 01/11/25 20:13 DC 01/11/25 10:50 30 UNITS Insulin Human Regular (humuLIN R 100 UNIT/ML 3ML) 5 unit TIDAC SQ 01/14/25 07:30 01/29/25 06:36 DC 01/28/25 16:50 5 UNIT Insulin Human Regular (humuLIN R 100 UNIT/ML 3ML) 7 unit TIDAC SQ 01/29/25 07:30 02/28/25 07:29 01/30/25 08:34 7 UNIT Insulin Human Regular (humuLIN R 100 UNIT/ML 3ML) 8 unit TIDAC SQ 01/11/25 07:30 01/14/25 07:03 DC 01/13/25 19:47 8 UNIT Insulin Human Regular (humuLIN R 100 UNIT/ML 3ML) INSULIN SLIDING SCAL... ACHS SQ 01/18/25 21:00 01/28/25 22:15 DC 01/28/25 21:07 7 UNIT Insulin Human Regular (humuLIN R 100 UNIT/ML 3ML) INSULIN SLIDING SCAL... ACHS SQ 01/05/25 07:30 01/05/25 09:57 DC 01/05/25 07:59 16 UNIT Insulin Human Regular (humuLIN R 100 UNIT/ML 3ML) INSULIN SLIDING SCAL... ACHS SQ 01/05/25 11:30 01/06/25 16:43 DC 01/06/25 11:50 8 UNIT Insulin Human Regular (humuLIN R 100 UNIT/ML 3ML) INSULIN SLIDING SCAL... ACHS SQ 01/06/25 17:00 01/07/25 13:32 DC 01/06/25 17:17 16 UNIT Insulin Human Regular (humuLIN R 100 UNIT/ML 3ML) INSULIN SLIDING SCAL... ACHS SQ 01/29/25 07:30 02/28/25 07:29 01/29/25 20:49 8 UNIT Insulin Human Regular (humuLIN R 100 UNIT/ML 3ML) INSULIN SLIDING SCAL... Q4H SQ 01/11/25 02:00 01/11/25 23:59 DC 01/11/25 20:49 6 UNIT Insulin Human Regular (humuLIN R 100 UNIT/ML 3ML) INSULIN SLIDING SCAL... Q4H SQ 01/11/25 23:59 01/18/25 19:33 DC 01/18/25 16:59 4 UNIT Insulin Human Regular (humuLIN R 100 UNIT/ML 3ML) INSULIN SLIDING SCAL... Q6H6 SQ 01/10/25 18:00 01/11/25 00:50 DC 01/11/25 00:45 10 UNIT Insulin Human Regular 100 unit/ Sodium Chloride 100 ml @ 0 mls/hr AD PRN IV HYPERGLYCEMIA PROTOCOL 01/06/25 19:30 01/10/25 06:00 DC 01/09/25 19:10 16 MLS/HR Ipratropium [place] (AtrovENT UD) 0.5 MG Q6H PRN IH SHORTNESS OF BREATH 01/29/25 11:00 02/28/25 10:59 Iron Sucrose (VenoFER) 300 mg Q24H IVP 01/21/25 15:00 01/21/25 15:29 DC Iron Sucrose 300 mg/Sodium Chloride 250 ml @ 166.667 mls/hr Q24H IV 01/21/25 16:00 01/21/25 17:22 DC Iron Sucrose 300 mg/Sodium Chloride 250 ml @ 166.667 mls/hr Q24H IV 01/21/25 19:30 01/21/25 20:57 DC Iron Sucrose 300 mg/Sodium Chloride 250 ml @ 166.667 mls/hr Q24H IV 01/21/25 21:00 01/23/25 22:29 DC 01/23/25 20:56 166.667 MLS/HR Lactated Ringer's 1,000 ml @ 100 mls/hr Q10H IV 01/05/25 02:30 01/05/25 09:51 DC 01/05/25 02:30 100 MLS/HR Lactated Ringer's 1,000 ml @ 125 mls/hr Q8H IV 01/10/25 01:30 01/10/25 19:40 DC 01/10/25 13:07 125 MLS/HR Lactobacillus Rhamnosus ([facility] ViroXis & Akros Silicon) 1 each DAILY PO 01/12/25 09:00 02/11/25 08:59 01/30/25 08:58 1 EACH Lidocaine (Lidoderm Patch 5%) 1 patch DAILY TP 01/25/25 12:00 02/24/25 11:59 01/30/25 08:59 1 PATCH Linezolid 300 ml @ 300 mls/hr Q12H IV 01/25/25 20:30 02/04/25 20:29 01/30/25 08:29 300 MLS/HR Lorazepam (AtiVAN) 1 mg Q4H PRN IVP ALCOHOL WITHDRAWAL PROTOCOL 01/05/25 02:30 01/12/25 02:29 DC Magnesium Sulfate 50 ml @ 0 mls/hr PROTOCOL PRN IV h 01/05/25 02:30 02/04/25 02:29 01/25/25 10:44 25 MLS/HR Melatonin (Melatonin) 10 mg HS PRN PO INSOMNIA 01/21/25 21:30 02/20/25 21:29 01/29/25 22:28 10 MG Morphine Sulfate (morPHINE 2MG SYG) 2 mg Q4H PRN IVP SEVERE PAIN (7-10) 01/05/25 02:30 01/12/25 02:29 DC Multivitamins Therapeutic (Multivitamin Tablet) 1 tab DAILY PO 01/07/25 10:30 02/06/25 10:29 01/30/25 08:58 1 TAB Nafcillin Sodium (Nafcillin 2gm+ NS 100ml) 2 gm Q6H6 IV 01/17/25 18:00 01/25/25 16:12 DC 01/25/25 12:18 2 GM Nicotine (Nicoderm) 21 mg DAILY TD 01/05/25 09:00 02/04/25 08:59 01/30/25 09:00 21 MG Nitroglycerin (Nitrostat) 0.4 mg AD PRN SL CHEST PAIN 01/05/25 02:30 02/04/25 02:29 Nystatin (NYSTatin 045288 UNIT/ML 5ML UDCUP) 100,000 UNITS 1 ML TO E... QID PO 01/18/25 09:00 02/17/25 08:59 01/30/25 08:58 2 ML Ondansetron HCl (zoFRAN 4MG INJ) 4 mg Q6H PRN IV NAUSEA/VOMITING 01/05/25 02:30 02/04/25 02:29 Pantoprazole Sodium (PROTonix 40MG INJ) 40 mg Q24H IVP 01/26/25 04:30 02/25/25 04:29 01/30/25 03:54 40 MG Pantoprazole Sodium (PROTonix 40MG TAB) 40 mg DAILY PO 01/05/25 09:00 01/26/25 04:16 DC 01/25/25 09:45 40 MG Pharmacy Profile Note (Pharmacy Communication) 1 each ONCE MISC 01/16/25 14:30 01/16/25 15:12 DC Pharmacy Profile Note (Pharmacy Communication) 1 each ONCE MISC 01/25/25 07:30 01/25/25 07:26 DC Pharmacy Profile Note (Pharmacy Communication) 1 each ONCE MISC 01/25/25 16:30 01/25/25 16:12 DC Pharmacy Profile Note (Pharmacy Communication) 1 each PROTOCOL PRN MISC ETOH Withdrawal Score changes 01/05/25 02:30 01/12/25 02:29 DC Piperacillin Sod/ Tazobactam Sod (Zosyn 3.375gm+NS 50ml) 3.375 gm Q12H IV 01/05/25 02:30 01/07/25 13:24 DC 01/07/25 02:45 3.375 GM Potassium Phosphate 250 ml @ 42 mls/hr PROTOCOL PRN IV PROTOCOL 01/05/25 10:00 02/04/25 09:59 Potassium Chloride 100 ml @ 100 mls/hr AD PRN IV POTASSIUM PROTOCOL 01/05/25 02:30 01/07/25 10:12 DC Potassium Chloride 100 ml @ 100 mls/hr AD PRN IV POTASSIUM PROTOCOL 01/07/25 10:30 02/06/25 10:29 01/09/25 06:26 100 MLS/HR Potassium Chloride (K-Dur 10meq Sr Tab) 10 meq AD PRN PO POTASSIUM PROTOCOL 01/06/25 09:30 02/04/25 02:29 01/08/25 23:35 10 MEQ Potassium Chloride (K-Dur/Klor-Con 20meq) 10 meq AD PRN PO POTASSIUM PROTOCOL 01/05/25 02:30 01/06/25 09:12 DC 01/05/25 22:15 10 MEQ Potassium Chloride (K-Dur/Klor-Con 20meq) 10 meq AD PRN PO POTASSIUM PROTOCOL 01/07/25 10:30 01/07/25 10:12 DC Potassium Chloride (KCl 10% Elixir 20meq/15ml) 10 meq AD PRN PO POTASSIUM PROTOCOL 01/05/25 02:30 01/07/25 10:12 DC 01/06/25 17:16 10 MEQ Potassium Chloride (KCl 10% Elixir 20meq/15ml) 10 meq AD PRN PO POTASSIUM PROTOCOL 01/07/25 10:30 02/06/25 10:29 01/23/25 15:27 10 MEQ Sodium Bicarbonate (Sodium Bicarbonate) 1,300 mg BID PO 01/11/25 09:00 01/30/25 09:19 DC 01/30/25 08:58 1,300 MG Sodium Chloride 1,000 ml @ 50 mls/hr Q20H IV 01/05/25 10:00 01/10/25 01:33 DC 01/09/25 05:56 50 MLS/HR Sodium Chloride 1,000 ml @ 75 mls/hr [id number] IV 01/11/25 01:00 01/11/25 13:45 DC 01/11/25 01:00 75 MLS/HR Triamcinolone Acetonide (Kenalog/ Aristocort) 1 APPLY TP BID BID TP 01/07/25 11:00 02/06/25 10:59 01/29/25 20:41 1 APPL Vancomycin HCl (Vancomycin Protocol) 1 each AD IV 01/07/25 12:30 01/07/25 12:40 DC DIAGNOSTICS / RADIOLOGY: [PATIENT: ADAM MOE III MR#: [id number] : 1980 SEX: M AGE: 44 LOCATION: [facility] ORDER 07 STATUS: ADM IN REPORT#: [id number] SERVICE 140 REASON: TO RULE OUT PE ORDERING PHYSICIAN: PRATEEK VALENZUELA PROCEDURE: CHES PE - CT CHEST PE PROTOCOL WWO CONT CT ANGIOGRAM OF THE CHEST WITHOUT AND WITH CONTRAST. CT RECONSTRUCTIONS INDICATION: Pulmonary embolism evaluation TECHNIQUE: Routine axial images using 3 mm slice thickness were acquired from the lung apices to the bases before and after the intravenous administration of 100 mL of Omnipaque 350 contrast material using the pulmonary embolism protocol. Maximum Intensity Projection imaging in the sagittal and coronal planes were also provided. CT was performed with one or more of the following dose reduction techniques: Automated exposure control, adjustment of the mA and/or kV according to patient size, or use of iterative reconstruction technique. COMPARISON: None FINDINGS: Examination provided for interpretation at 8:20 PM on 01/26/2025. The contrast bolus is of good quality for diagnosis of pulmonary embolism. The heart size is within normal limits without pericardial effusion. The main pulmonary arteries, segmental branches, and visualized subsegmental pulmonary arteries appear normal without intraluminal filling defects. Pulmonary trunk is not enlarged. No evidence for thoracic aortic aneurysm or dissection. The origins of the great vessels and thoracic aorta appear normal. The visible portions of the trachea and airways are patent. Right greater than left lower lobe opacities. No axillary, hilar, or mediastinal lymphadenopathy detected. Several calcific gallstones. Visible osseous structures are intact. IMPRESSION: Evolving right greater than left lower lobe pneumonia, without evidence for pulmonary embolism. Cholelithiasis. DICTATED BY: KIARA PETERSON MD DATE: 01/26/252023 ELECTRONICALLY SIGNED BY: KIARA PETERSON MD DATE: 01/26/252027 ] RUN DATE: 01/24/[address] [facility] [address] 1 RUN TIME: [id number] [address], [place] [address] Department of Laboratories CLIA # [id number] [place]: Humble Shah DO Specimen Report - PATIENT: ADAM MOE III ACCT: [id number] LOC: [facility] U: [id number] AGE/SX: 44/M ROOM: 412 RE01/04/[address]: ARVIND NOLAND MD : 1980 BED: 1 DIS: STATUS: ADM IN TLOC: SPEC: [id number] LEVAR: 01/19/25-1634 STATUS: COMP REQ: [id number] RECD: 01/19/25-[address]: ARVIND NOLAND MD SOURCE: BLOOD ENTR: 01/19/25-[address]: [facility]LSON [facility] SANDRA MCDERMOTT MD,ANGELICA MAKI,PHYLLIS RESTREPO,MAITE STANLEY,GUERA PALOMO,NÉSTOR R MD SARMARTHA JONES MD, NABEEL MD SELF,REFERRAL EVANS FLORES MD ORDERED: BLOOD CULTURE COMMENTS: What is the Source? BLOOD Procedure Result Jose Date-Time BLOOD CULT Final 01/24/25-1645 NO GROWTH AFTER 5 DAYS ASSESSMENT: Severe sepsis, resolved POA Gram-positive bacteremia secondary to Staphylococcus aureus, POA Hypodense echogenic mobile vegetation to right coronary cusp leaflet on echocardiogram 01/05/2025 Left atrial appendage clot present. on DRAKE 01/11 non coronary cusp leaflet has vegetation that measures 1.8 x 1.1 cm. on DRAKE 01/11 Urinary tract infection, secondary to Klebsiella pneumoniae, POA Strep pharyngitis, POA ITP, POA Pneumonia, POA Leukocytosis, POA Hyperlactatemia, POA Acute kidney injury, POA Acute cholecystitis, POA Hypokalemia, POA Hyponatremia, POA Hypomagnesemia, POA POA New onset Uncontrolled Diabetes mellitius type2, POA Elevated troponin, POA Cocaine abuse, POA Alcohol abuse, POA Tobacco dependence, POA Significant proteinuria, POA Diabetic nephropathy, POA Gallstones, POA Fidelina esophagitis on EGD 01/11 PLAN: Bacterial endocarditis affecting the aortic valve (1.81x1.17 cm mass attached to the noncoronary cusp leaflet) identified on DRAKE done 01/11/2025 -Limited follow up 2D echocardiogram 01/23/2025 demonstrated vegetation measuring 0.8cm x 1.15cm with a traced area of 0.9cm (relatively unchanged) -Positive blood cultures collected 01/05/2025, 01/07/2025, 01/09/2025, 01/11/2025 -Blood cultures collected 01/17/2025 and 01/19/2025-negative x5 days -The patient will continue on IV antibiotic therapy which has been tailored by ID -will plan for DRAKE after 4-6 weeks of IV antibiotics to evaluate vegetation Left atrial appendage thrombus identified on DRAKE done 01/11/2025 -We will hold Eliquis 5 mg b.i.d. and have Hematology see the patient to further evaluate the etiology of the LLE hematoma -patient remains admitted to the medical floor. -continue the patient on broad-spectrum IV antibiotics -results of DRAKE reviewed, Left atrial appendage clot present. on DRAKE 01/11, aortic valve is trileaflet, opens well. Non coronary cusp leaflet has vegetation that measures 1.8 x 1.1 cm. on DRAKE 01/11 -continue heparin drip. Patient already evaluated by Cardiothoracic surgeon, continue medical management, we will re-evaluate possibility of aortic valve replacement in the near future. Hypoxia with worsening dyspnea Chest x-ray today and tomorrow. Supplemental O2 therapy p.r.n. for If respiratory distress worsens, consider repeat CT angiogram to rule out new pulmonary embolism Notify nurse to communicate with Cardiology regarding changes in status. 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 No acute need for any form of renal replacement therapy. -blood culture positive for Staphylococcus aureus. Urine culture positive for Klebsiella pneumoniae. Continue broad-spectrum IV antibiotics, continue to follow ID input recommendation. Will obtain liver serologies to r/o other liver pathology -case discussed with case management, patient to complete course of IV antibiotics likely during this hospitalization as the patient is uninsured. Gastroenterology For esophagitis continue pantoprazole 40 mg daily. Obtain liver serologies when available. Endocrinology Diabetes mellitus uncontrolled. Continue Lantus 15 units daily. Regular insulin7 units before meals sliding scale insulin also. Monitor blood glucose every 6 hours. Acute cholecystitis Awaiting cardiology clearance for outpatient cholecystectomy. Consider IR consult for percutaneous drainage if symptoms worsens. Disposition: Pending improvement in clinical condition. All questions answered time spent: > 35 min ATTESTATION BY PHYSICIAN I have seen and examined the patient. I reviewed the documentation, medical decision making, and treatment plan as noted by the resident above. I agree with the findings and plan of care. Benoit Martinez MD, RAGHAVA R MD Jan 30, 2025 09:38
--- NOTE | 2025-01-30 11:46 | PN ---
[facility] CARDIOLOGY PROGRESS NOTE Date Patient Seen: Jan 30, 2025 Time of Visit: 11:45 Interval History: No acute events overnight. Currently denies any cardiac symptoms or anginal equivalents. Physical Examination: GENERAL: No acute distress. HEAD: Normal with no signs of head trauma. EYES: PERRLA, EOMI, conjunctiva and sclera normal. NECK: Supple without JVD. There is no tenderness, lymphadenopathy, or masses. No thyromegaly. Normal carotid upstrokes without bruits. LUNGS: Crackles to mid and lower bases bilaterally. HEART: Regular rate. Normal S1 and S2. No obvious murmurs, gallops, or rubs n oted. No murmur audible. VASC: Peripheral pulses +2 bilaterally. EXT: Ecchymosis to the right upper arm noted. There is a left calf hematoma and increased girth of the left calf compared to the right calf. 2-3+ pedal edema. There are scattered petechial and purpuric patches. NEURO: Awake, alert, and oriented. No focal neurological deficits noted. Laboratory: [ ] Chemistry Labs: Test 01/30/25 11:11 01/28/25 15:32 Range/Units Whole Blood Glucose 128 H 70-110 MG/DL Bedside Glucose Comment Notified Nurse Diagnostics / Radiology: [Copy/Paste Echos/Imaging Report here] Impression: 1. Gram-positive bacteremia due to MRSA, unknown source 2. 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 Left atrial appendage thrombus with no known history of atrial fibrillation 4. Urinary tract infection with Klebsiella pneumonia 5. Idiopathic thrombocytopenic purpura, on steroids 6. Acute kidney injury 7. Anemia 8. Type 2 diabetes, newly diagnosed 9. Polysubstance abuse with alcohol, cocaine, and tobacco Plan: Bacterial endocarditis affecting the aortic valve (1.81x1.17 cm mass attached to the noncoronary cusp leaflet) identified on DRAKE done 01/11/2025 -Limited follow up 2D echocardiogram 01/23/2025 demonstrated vegetation measuring 0.8cm x 1.15cm with a traced area of 0.9cm (relatively unchanged) -Positive blood cultures collected 01/05/2025, 01/07/2025, 01/09/2025, 01/11/2025 -Blood cultures collected 01/17/2025 and 01/19/2025-negative x5 days -The patient will continue on IV antibiotic therapy which has been tailored by ID -will plan for DRAKE after 4-6 weeks of IV antibiotics to evaluate vegetation Left atrial appendage thrombus identified on DRAKE done 01/11/2025 -We will hold Eliquis 5 mg b.i.d. and have Hematology see the patient to further evaluate the etiology of the LLE hematoma Thank you for this consult cardiology will continue to follow along Anna Hilario MD ATTESTATION BY PHYSICIAN I have seen and examined the patient, reviewed the above documentation, participated in medical decision making, made necessary modifications, and agree with the treatment plan as documented by my mid-level provider above. MD SANDRA Etienne JAMES R MD Jan 30, 2025 11:46
[2025-01-30] MEDS: furoSEMIDE 40 MG TABLET PO SCH (11:56)
[2025-01-30] MEDS ORDERED: guaiFENesin-DM 200/20MG 10ML PO PRN (15:00)
--- NOTE | 2025-01-30 15:43 | HMCIMG ---
CHEST 1VW HISTORY: Worsening of respiratory status COMPARISON: None FINDINGS: A frontal projection of the chest was obtained. Mild bilateral pulmonary infiltrates are seen. The heart is borderline enlarged. Degenerative changes are seen. No evidence of aortic calcification is seen. IMPRESSION: 1. Mild bilateral pulmonary infiltrates.
--- NOTE | 2025-01-30 21:42 | PN ---
endocrinology progress note dos: 01/30/25 subjective: he is off insulin drip and on insulin injections. glucose control is improving and off iv steroid. hba1c 8.5% Past Medical History Patient History: Patient reports no known family medical history. ADDITIONAL PAST MEDICAL HISTORY: [Denies any past medical history, fatty liver by CT on 01/05/2025] SOCIAL HISTORY: [Patient smokes one pack of cigarettes daily but only5 times a week. Patient beers daily but also only5 times a week. Patient reports occasional use of both marijuana and cocaine. Patient denies any other illegal drug use. 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 Patient has poor access to health care due to lack of health insurance. Patient is typically independent of all his ADLs. Patient denies difficulty pain is bills. Patient lives with his daughter Hannah Jin] SURGICAL HISTORY: [Heart stent] Allergies: Coded Allergies: No Known Drug Allergies (Unverified Allergy, Unknown, 12/18/15) Scheduled Amlodipine Besylate (Amlodipine Besylate), 5 MG PO DAILY Atorvastatin Calcium (Lipitor), 40 MG PO HS Hydrochlorothiazide (Hydrochlorothiazide), 25 MG PO DAILY Lisinopril (Lisinopril), 20 MG PO DAILY Losartan Potassium (Losartan Potassium), 50 MG PO DAILY Methylprednisolone (Medrol), 4 MG PO AD Tamsulosin HCl (Flomax), 0.4 MG PO DAILY [Aspirin], 325 MG PO DAILY [Prasugrel Hcl], 10 MG PO DAILY Scheduled PRN Ketorolac Tromethamine (Ketorolac Tromethamine), 10 MG PO TID PRN for PAIN ASSESSMENT: DKA-resolved he is off insulin drip. hba1c 8.5% glucose control is improving now off iv dexamethasone. New onset Uncontrolled Diabetes mellitus type2, POA Severe sepsis, POA Urinary tract infection, POA Endocarditis and staph bacteremia Strep pharyngitis, POA Leukocytosis, POA Hyperlactatemia, POA Acute kidney injury, POA Thrombocytopenia, POA Elevated troponin, POA Substance abuse, POA, cocaine Alcohol dependence, POA Tobacco dependence, POA PLAN: continue lantus 15 units daily continue regular insulin 7 units qac before meals continue medium dose ssi keep glucose less than 180 mg/dl monitor glucose [id number]. patient will need insulin at discharge Vitals/Labs Vital Signs Date Time Temp Pulse Resp B/P (MAP) Pulse Ox O2 Delivery O2 Flow Rate FiO2 01/30/25 20:00 97.9 88 20 150/77 100 Room Air 01/30/25 08:00 0 21 Medications Current Medications Sodium Chloride 1,000 ml @ 125 mls/hr ONCE ONCE IV Last administered on 01/05/25at 00:13; Start 01/04/25 at 23:00; Stop 01/05/25 at 06:59; Status DC Aspirin 81 mg ONCE ONCE PO Last administered on 01/05/25at 00:14; Start 01/04/25 at 23:00; Stop 01/04/25 at 23:01; Status DC Ondansetron HCl 4 mg ONCE ONCE IVP Last administered on 01/05/25at 00:13; Start 01/04/25 at 23:00; Stop 01/04/25 at 23:01; Status DC Potassium Chloride 100 ml @ 50 mls/hr ONCE ONCE IV Last administered on 01/05/25at 00:13; Start 01/05/25 at 00:00; Stop 01/05/25 at 01:59; Status DC Potassium Chloride 100 ml @ 50 mls/hr ONCE ONCE IV Last administered on 5at 03:12; Start 01/05/25 at 00:00; Stop 01/05/25 at 01:59; Status DC Thiamine HCl 100 mg ONCE ONCE IVP Last administered on 01/05/25at 01:01; Start 01/05/25 at 00:00; Stop 01/05/25 at 00:01; Status DC Acetaminophen 500 mg STK-MED ONCE .ROUTE; Start 01/05/25 at 00:28; Stop 01/05/25 at 00:28; Status DC Cefepime HCl 1 gm ONCE ONCE IVPB Last administered on 01/05/25at 01:01; Start 01/05/25 at 01:00; Stop 01/05/25 at 01:02; Status DC Vancomycin HCl 750 mg ONCE ONCE IVPB Last administered on 01/05/25at 02:12; Start 01/05/25 at 01:00; Stop 01/05/25 at 01:02; Status DC Sodium Chloride 250 ml ONCE ONCE IVPB Last administered on 01/05/25at 02:12; St art 01/05/25 at 01:00; Stop 01/05/25 at 01:02; Status DC Acetaminophen 1,000 mg ONCE ONCE PO Last administered on 01/05/25at 00:30; Start 01/05/25 at 01:00; Stop 01/05/25 at 01:02; Status DC Aspirin 81 mg DAILY PO; Start 01/05/25 at 09:00; Stop 01/05/25 at 09:53; Status DC Nitroglycerin 0.4 mg AD PRN SL; Start 01/05/25 at 02:30; Stop 02/04/25 at 02:29 Aspirin 162 mg ONCE ONCE PO Last administered on 01/05/25at 03:06; Start 01/05/25 at 02:30; Stop 01/05/25 at 02:31; Status DC Insulin Human Regular INSULIN SLIDING SCAL... ACHS SQ Last administered on 01/05/25at 07:59; Start 01/05/25 at 07:30; Stop 01/05/25 at 09:57; Status DC Lactated Ringer's 3,429 ml @ 1,143 mls/hr ONCE ONCE IV Last administered on 01/05/25at 03:12; Start 01/05/25 at 02:30; Stop 01/05/25 at 05:29; Status DC Piperacillin Sod/ Tazobactam Sod 3.375 gm Q12H IV Last administered on 01/07/25at 02:45; Start 01/05/25 at 02:30; Stop 01/07/25 at 13:24; Status DC Potassium Chloride 100 ml @ 100 mls/hr AD PRN IV; Start 01/05/25 at 02:30; Stop 01/07/25 at 10:12; Status DC Potassium Chloride 10 meq AD PRN PO Last administered on 01/06/25at 17:16; Start 01/05/25 at 02:30; Stop 01/07/25 at 10:12; Status DC Potassium Chloride 10 meq AD PRN PO Last administered on 01/05/25at 22:15; Start 01/05/25 at 02:30; Stop 01/06/25 at 09:12; Status DC Acetaminophen 650 mg Q6H PRN PO Last administered on 01/30/25at 08:58; Start 01/05/25 at 02:30; Stop 02/04/25 at 02:29 Pantoprazole Sodium 40 mg DAILY PO Last administered on 01/25/25at 09:45; Start 01/05/25 at 09:00; Stop 01/26/25 at 04:16; Status DC Ondansetron HCl 4 mg Q6H PRN IV; Start 01/05/25 at 02:30; Stop 02/04/25 at 02:29 Morphine Sulfate 2 mg Q4H PRN IVP; Start 01/05/25 at 02:30; Stop 01/12/25 at 02:29; Status DC Hydralazine HCl 10 mg Q6H PRN IV; Start 01/05/25 at 02:30; Stop 01/05/25 at 09 :53; Status DC Benzocaine 1 each Q4H PRN MM; Start 01/05/25 at 02:30; Stop 02/04/25 at 02:29 Magnesium Sulfate 50 ml @ 0 mls/hr PROTOCOL PRN IV Last administered on 01/25/25at 10:44; Start 01/05/25 at 02:30; Stop 02/04/25 at 02:29 Lactated Ringer's 1,000 ml @ 100 mls/hr Q10H IV Last administered on 01/05/25at 02:30; Start 01/05/25 at 02:30; Stop 01/05/25 at 09:51; Status DC Chlordiazepoxide HCl 25 mg Q8H PO Last administered on 01/10/25at 22:23; Start 01/05/25 at 02:30; Stop 01/11/25 at 11:39; Status DC Lorazepam 1 mg Q4H PRN IVP; Start 01/05/25 at 02:30; Stop 01/12/25 at 02:29; Status DC Pharmacy Profile Note 1 each PROTOCOL PRN MISC; Start 01/05/25 at 02:30; Stop 01/12/25 at 02:29; Status DC Nicotine 21 mg DAILY TD Last administered on 01/30/25at 09:00; Start 01/05/25 at 09:00; Stop 02/04/25 at 08:59 Sodium Chloride 1,000 ml @ 50 mls/hr Q20H IV Last administered on 01/09/25at 05:56; Start 01/05/25 at 10:00; Stop 01/10/25 at 01:33; Status DC Potassium Phosphate 250 ml @ 42 mls/hr PROTOCOL PRN IV; Start 01/05/25 at 10:00; Stop 02/04/25 at 09:59 Hydralazine HCl 5 mg Q6H PRN IV Last administered on 01/10/25at 22:24; Start 01/05/25 at 14:30; Stop 02/04/25 at 14:29 Doxycycline Hyclate 250 ml @ 125 mls/hr Q12H IV Last administered on 01/06/25at 09:30; Start 01/05/25 at 10:00; Stop 01/06/25 at 21:05; Status DC Potassium Chloride 40 meq ONCE ONCE PO Last administered on 01/05/25at 10:25; Start 01/05/25 at 10:00; Stop 01/05/25 at 10:01; Status DC Potassium Chloride 100 ml @ 50 mls/hr ONCE ONCE IV Last administered on 01/05/25at 10:25; Start 01/05/25 at 10:00; Stop 01/05/25 at 11:59; Status DC Dextrose 50 ml AD PRN IV; Start 01/05/25 at 10:00; Stop 02/04/25 at 09:59 Glucagon 1 mg AD PRN IM; Start 01/05/25 at 10:00; Stop 02/04/25 at 09:59 Insulin Human Regular INSULIN SLIDING SCAL... ACHS SQ Last administered on 01/06/25at 11:50; Start 01/05/25 at 11:30; Stop 01/06/25 at 16:43; Status DC Dexamethasone Sodium Phosphate 10 mg ONCE ONCE IVP Last administered on 01/05/25at 17:27; Start 01/05/25 at 13:30; Stop 01/05/25 at 14:03; Status DC Insulin Glargine 20 units HS SQ; Start 01/06/25 at 21:00; Stop 01/06/25 at 21:05; Status DC Potassium Chloride 10 meq AD PRN PO Last administered on 01/08/25at 23:35; Start 01/06/25 at 09:30; Stop 02/04/25 at 02:29 Dexamethasone Sodium Phosphate 40 mg DAILY ONCE IV; Start 01/07/25 at 09:00; Stop 01/06/25 at 13:27; Status DC Dexamethasone Sodium Phosphate 40 mg/Sodium Chloride 50 ml @ 100 mls/hr DAILY IV Last administered on 01/08/25at 09:34; Start 01/06/25 at 14:00; Stop 01/08/25 at 12:16; Status DC Insulin Human Regular INSULIN SLIDING SCAL... ACHS SQ Last administered on 01/06/25at 17:17; Start 01/06/25 at 17:00; Stop 01/07/25 at 13:32; Status DC Insulin Human Regular 100 unit/ Sodium Chloride 100 ml @ 0 mls/hr AD PRN IV Last administered on 01/09/25at 19:10; Start 01/06/25 at 19:30; Stop 01/10/25 at 06:00; Status DC Insulin Glargine 20 units HS SQ Last administered on 01/06/25at 21:33; Start 01/06/25 at 21:30; Stop 01/07/25 at 10:24; Status DC Doxycycline Hyclate 250 ml @ 125 mls/hr Q12H IV Last administered on 01/16/25at 10:13; Start 01/06/25 at 21:30; Stop 01/16/25 at 14:23; Status DC Chlordiazepoxide HCl 25 mg STK-MED ONCE .ROUTE; Start 01/07/25 at 02:35; Stop 01/07/25 at 02:41; Status DC Piperacillin Sod/ Tazobactam Sod 50 ml @ As Directed STK-MED ONCE .ROUTE; Start 01/07/25 at 02:39; Stop 01/07/25 at 02:41; Status DC Potassium Chloride 0 ml @ As Directed STK-MED ONCE IV; Start 01/07/25 at 07:28; Stop 01/07/25 at 07:31; Status DC Potassium Chloride 40 meq ONCE ONCE PO Last administered on 01/07/25at 09:44; Start 01/07/25 at 10:00; Stop 01/07/25 at 10:01; Status DC Potassium Chloride 100 ml @ 100 mls/hr AD PRN IV Last administered on 01/09/25at 06:26; Start 01/07/25 at 10:30; Stop 02/06/25 at 10:29 Potassium Chloride 10 meq AD PRN PO Last administered on 01/23/25at 15:27; Start 01/07/25 at 10:30; Stop 02/06/25 at 10:29 Potassium Chloride 10 meq AD PRN PO; Start 01/07/25 at 10:30; Stop 01/07/25 at 10:12; Status DC Insulin Glargine 15 units Q12H SQ Last administered on 01/09/25at 13:10; Start 01/07/25 at 21:30; Stop 01/09/25 at 23:18; Status DC Insulin Glargine 10 units ONCE ONCE SQ Last administered on 01/07/25at 10:40; Start 01/07/25 at 10:30; Stop 01/07/25 at 10:31; Status DC Thiamine HCl 300 mg DAILY ONCE IVP Last administered on 01/07/25at 10:39; Start 01/07/25 at 10:30; Stop 01/07/25 at 10:31; Status DC Multivitamins Therapeutic 1 tab DAILY PO Last administered on 01/30/25at 08:58; Start 01/07/25 at 10:30; Stop 02/06/25 at 10:29 Folic Acid 1 mg DAILY PO Last administered on 01/30/25at 08:58; Start 01/07/25 at 10:30; Stop 02/06/25 at 10:29 Triamcinolone Acetonide 1 APPLY TP BID BID TP Last administered on 01/30/25at 20:43; Start 01/07/25 at 11:00; Stop 02/06/25 at 10:59 Vancomycin HCl 1 each AD IV; Start 01/07/25 at 12:30; Stop 01/07/25 at 12:40; Status DC Cefazolin Sodium 2 gm Q12H IVPB Last administered on 01/16/25at 01:12; Start 01/07/25 at 13:30; Stop 01/16/25 at 14:43; Status DC Furosemide 20 mg Q12H IV Last administered on 01/10/25at 19:40; Start 01/07/25 at 16:00; Stop 01/11/25 at 00:56; Status DC Calcium Gluconate 1 gm/Sodium Chloride 100 ml @ 0 mls/hr AD PRN IV Last administered on 01/08/25at 23:32; Start 01/08/25 at 02:30; Stop 02/07/25 at 02:29 Dexamethasone Sodium Phosphate 20 mg/Sodium Chloride 52 ml @ 100 mls/hr DAILY IV Last administered on 01/27/25at 09:16; Start 01/09/25 at 09:00; Stop 01/27/25 at 19:04; Status DC Insulin Glargine 20 units Q12H SQ; Start 01/10/25 at 09:30; Stop 01/10/25 at 12:58; Status DC Lactated Ringer's 1,000 ml @ 125 mls/hr Q8H IV Last administered on 01/10/25at 13:07; Start 01/10/25 at 01:30; Stop 01/10/25 at 19:40; Status DC Lactated Ringer's 1,000 ml BOLUS ONCE IV Last administered on 01/10/25at 09:20; Start 01/10/25 at 07:30; Stop 01/10/25 at 07:31; Status DC Lidocaine HCl 100 mg STK-MED ONCE .ROUTE; Start 01/10/25 at 08:01; Stop 01/10/25 at 08:02; Status DC Propofol 200 mg STK-MED ONCE IV; Start 01/10/25 at 08:02; Stop 01/10/25 at 08:02; Status DC Glycopyrrolate 1 mg STK-MED ONCE .ROUTE; Start 01/10/25 at 08:02; Stop 01/10/25 at 08:02; Status DC Ketamine HCl 50 mg STK-MED ONCE .ROUTE; Start 01/10/25 at 08:03; Stop 01/10/25 at 08:03; Status DC Insulin Glargine 25 units Q12H SQ Last administered on 01/10/25at 22:19; Start 01/10/25 at 21:30; Stop 01/11/25 at 00:50; Status DC Insulin Human Regular INSULIN SLIDING SCAL... Q6H6 SQ Last administered on 01/11/25at 00:45; Start 01/10/25 at 18:00; Stop 01/11/25 at 00:50; Status DC Insulin Glargine 30 units Q12H SQ Last administered on 01/11/25at 10:50; Start 01/11/25 at 09:30; Stop 01/11/25 at 20:13; Status DC Insulin Human Regular INSULIN SLIDING SCAL... Q4H SQ Last administered on 01/11/25at 20:49; Start 01/11/25 at 02:00; Stop 01/11/25 at 23:59; Status DC Sodium Chloride 1,000 ml @ 75 mls/hr [id number] IV Last administered on 01/11/25at 01:00; Start 01/11/25 at 01:00; Stop 01/11/25 at 13:45; Status DC Sodium Bicarbonate 1,300 mg BID PO Last administered on 01/30/25at 08:58; Start 01/11/25 at 09:00; Stop 01/30/25 at 09:19; Status DC Insulin Human Regular 8 unit TIDAC SQ Last administered on 01/13/25at 19:47; Start 01/11/25 at 07:30; Stop 01/14/25 at 07:03; Status DC Lidocaine HCl 100 mg STK-MED ONCE .ROUTE; Start 01/11/25 at 07:00; Stop 01/11/25 at 07:00; Status DC Atropine Sulfate 1 mg STK-MED ONCE IVP; Start 01/11/25 at 07:00; Stop 01/11/25 at 07:00; Status DC Propofol 200 mg STK-MED ONCE IV; Start 01/11/25 at 07:00; Stop 01/11/25 at 07:00; Status DC Succinylcholine Chloride 200 mg STK-MED ONCE .ROUTE; Start 01/11/25 at 07:00; Stop 01/11/25 at 07:00; Status DC Ketamine HCl 50 mg STK-MED ONCE .ROUTE; Start 01/11/25 at 07:00; Stop 01/11/25 at 07:01; Status DC Glycopyrrolate 1 mg STK-MED ONCE .ROUTE; Start 01/11/25 at 07:01; Stop 01/11/25 at 07:01; Status DC Sodium Chloride 10 ml STK-MED ONCE .ROUTE; Start 01/11/25 at 07:01; Stop 01/11/25 at 07:01; Status DC Phenylephrine HCl 10 mg STK-MED ONCE IV; Start 01/11/25 at 07:01; Stop 01/11/25 at 07:01; Status DC Midazolam HCl 2 mg STK-MED ONCE .ROUTE; Start 01/11/25 at 07:08; Stop 01/11/25 at 07:08; Status DC Ondansetron HCl 4 mg STK-MED ONCE .ROUTE; Start 01/11/25 at 07:34; Stop 01/11/25 at 07:35; Status DC Chlordiazepoxide HCl 25 mg Q8H PRN PO; Start 01/11/25 at 12:00; Stop 01/12/25 at 02:29; Status DC Heparin Sodium/ Dextrose 250 ml @ 0 mls/hr PROTOCOL IV Last administered on 01/17/25at 16:09; Start 01/11/25 at 14:30; Stop 01/18/25 at 13:28; Status DC Fluconazole 200 mg ONCE ONCE PO Last administered on 01/11/25at 15:18; Start 01/11/25 at 15:30; Stop 01/11/25 at 15:31; Status DC Fluconazole 200 mg DAILY PO Last administered on 01/25/25at 09:44; Start 01/12/25 at 09:00; Stop 01/25/25 at 16:12; Status DC Lactobacillus Rhamnosus 1 each DAILY PO Last administered on 01/30/25at 08:58; Start 01/12/25 at 09:00; Stop 02/11/25 at 08:59 Insulin Glargine 30 units DAILY SQ Last administered on 01/12/25at 11:25; Start 01/12/25 at 09:00; Stop 01/14/25 at 07:03; Status DC Insulin Human Regular INSULIN SLIDING SCAL... Q4H SQ Last administered on 01/18/25at 16:59; Start 01/11/25 at 23:59; Stop 01/18/25 at 19:33; Status DC Heparin Sodium (Porcine) 4,000 unit ONCE ONCE IV Last administered on 01/12/25at 22:36; Start 01/12/25 at 22:30; Stop 01/12/25 at 22:31; Status DC Iohexol 35,000 mg STK-MED ONCE IV; Start 01/13/25 at 12:56; Stop 01/13/25 at 12:57; Status DC Insulin Glargine 20 units DAILY SQ Last administered on 01/23/25at 09:41; Start 01/14/25 at 09:00; Stop 01/23/25 at 21:37; Status DC Insulin Human Regular 5 unit TIDAC SQ Last administered on 01/28/25at 16:50; Start 01/14/25 at 07:30; Stop 01/29/25 at 06:36; Status DC Aspirin 81 mg DAILY PO Last administered on 01/25/25at 09:45; Start 01/16/25 at 09:00; Stop 01/26/25 at 10:14; Status DC Pharmacy Profile Note 1 each ONCE MISC; Start 01/16/25 at 14:30; Stop 01/16/25 at 15:12; Status DC Dexamethasone Sodium Phosphate 10 mg STK-MED ONCE .ROUTE; Start 01/16/25 at 14:38; Stop 01/16/25 at 14:38; Status DC Dexamethasone Sodium Phosphate 10 mg STK-MED ONCE .ROUTE; Start 01/16/25 at 14:39; Stop 01/16/25 at 14:40; Status DC Cefazolin Sodium 2 gm Q8H IVPB Last administered on 01/17/25at 05:07; Start 01/16/25 at 21:30; Stop 01/17/25 at 13:22; Status DC Gentamicin Sulfate/Sodium Chloride 100 ml @ 200 mls/hr Q12H IV Last administered on 01/17/25at 16:00; Start 01/16/25 at 15:30; Stop 01/18/25 at 03:39; Status DC Acetaminophen 650 mg Q6H PRN PO Last administered on 01/29/25at 22:37; Start 01/16/25 at 17:30; Stop 02/15/25 at 17:29 Nafcillin Sodium 2 gm Q6H6 IV Last administered on 01/25/25at 12:18; Start 01/17/25 at 18:00; Stop 01/25/25 at 16:12; Status DC Melatonin 20 mg ONCE ONCE PO Last administered on 01/17/25at 22:00; Start 01/17/25 at 21:30; Stop 01/17/25 at 21:37; Status DC Gentamicin Sulfate/Sodium Chloride 100 ml @ 200 mls/hr Q12H IV Last administered on 01/20/25at 05:38; Start 01/18/25 at 04:00; Stop 01/20/25 at 06:41; Status DC Nystatin 100,000 UNITS 1 ML TO E... QID PO Last administered on 01/30/25at 21:23; Start 01/18/25 at 09:00; Stop 02/17/25 at 08:59 Apixaban 10 mg BID PO; Start 01/18/25 at 21:00; Stop 01/18/25 at 13:52; Status DC Apixaban 10 mg BID PO Last administered on 01/21/25at 08:45; Start 01/18/25 at 21:00; Stop 01/21/25 at 16:00; Status DC Apixaban 5 mg BID PO; Start 01/25/25 at 21:00; Stop 01/21/25 at 16:00; Status DC Insulin Human Regular INSULIN SLIDING SCAL... ACHS SQ Last administered on 01/28/25at 21:07; Start 01/18/25 at 21:00; Stop 01/28/25 at 22:15; Status DC Gentamicin Sulfate 150 mg/ Sodium Chloride 100 ml @ 100 mls/hr Q12H IV Last administered on 01/21/25at 16:00; Start 01/20/25 at 16:00; Stop 01/22/25 at 03:27; Status DC Iron Sucrose 300 mg Q24H IVP; Start 01/21/25 at 15:00; Stop 01/21/25 at 15:29; Status DC Iron Sucrose 300 mg/Sodium Chloride 250 ml @ 166.667 mls/hr Q24H IV; Start 01/21/25 at 16:00; Stop 01/21/25 at 17:22; Status DC Apixaban 5 mg BID PO Last administered on 01/22/25at 09:02; Start 01/21/25 at 21:00; Stop 01/23/25 at 10:57; Status DC Iron Sucrose 300 mg/Sodium Chloride 250 ml @ 166.667 mls/hr Q24H IV; Start 01/21/25 at 19:30; Stop 01/21/25 at 20:57; Status DC Iron Sucrose 300 mg/Sodium Chloride 250 ml @ 166.667 mls/hr Q24H IV Last administered on 01/23/25at 20:56; Start 01/21/25 at 21:00; Stop 01/23/25 at 22:29; Status DC Melatonin 10 mg HS PRN PO Last administered on 01/29/25at 22:28; Start 01/21/25 at 21:30; Stop 02/20/25 at 21:29 Gentamicin Sulfate 90 mg/ Sodium Chloride 50 ml @ 100 mls/hr Q8H IV; Start 01/22/25 at 03:30; Stop 01/22/25 at 03:30; Status DC Gentamicin Sulfate 90 mg/ Sodium Chloride 50 ml @ 100 mls/hr Q8H IV Last administered on 01/23/25at 12:54; Start 01/22/25 at 04:00; Stop 01/23/25 at 20:03; Status DC Apixaban 5 mg BID PO Last administered on 01/27/25at 09:01; Start 01/23/25 at 21:00; Stop 01/27/25 at 10:16; Status DC Tramadol HCl 50 mg ONCE ONCE PO Last administered on 01/23/25at 18:44; Start 01/23/25 at 19:00; Stop 01/23/25 at 19:01; Status DC Gentamicin Sulfate/Sodium Chloride 100 ml @ 200 mls/hr BID@0600,1800 IV Last administered on 01/25/25at 05:48; Start 01/24/25 at 06:00; Stop 01/25/25 at 16:12; Status DC Insulin Glargine 15 units DAILY SQ Last administered on 01/30/25at 09:51; Start 01/24/25 at 09:00; Stop 02/23/25 at 08:59 Acetaminophen/ Hydrocodone Bitart 1 tab ONCE ONCE PO Last administered on 01/24/25at 02:51; Start 01/24/25 at 02:30; Stop 01/24/25 at 02:33; Status DC Pharmacy Profile Note 1 each ONCE MISC; Start 01/25/25 at 07:30; Stop 01/25/25 at 07:26; Status DC Furosemide 20 mg BIDPC IV Last administered on 01/26/25at 18:06; Start 01/25/25 at 10:00; Stop 01/26/25 at 18:01; Status DC Lidocaine 1 patch DAILY TP Last administered on 01/30/25at 08:59; Start 01/25/25 at 12:00; Stop 02/24/25 at 11:59 Pharmacy Profile Note 1 each ONCE MISC; Start 01/25/25 at 16:30; Stop 01/25/25 at 16:12; Status DC Linezolid 300 ml @ 300 mls/hr Q12H IV Last administered on 01/30/25at 20:11; Start 01/25/25 at 20:30; Stop 02/04/25 at 20:29 Pantoprazole Sodium 40 mg Q24H IVP Last administered on 01/30/25at 03:54; Start 01/26/25 at 04:30; Stop 02/25/25 at 04:29 Iohexol 35,000 mg STK-MED ONCE IV; Start 01/26/25 at 16:37; Stop 01/26/25 at 16:37; Status DC Dexamethasone Sodium Phosphate 10 mg/Sodium Chloride 51 ml @ 100 mls/hr DAILY IV Last administered on 01/28/25at 13:03; Start 01/28/25 at 09:00; Stop 01/29/25 at 10:57; Status DC Insulin Human Regular INSULIN SLIDING SCAL... ACHS SQ Last administered on 01/30/25at 21:28; Start 01/29/25 at 07:30; Stop 02/28/25 at 07:29 Insulin Human Regular 7 unit TIDAC SQ Last administered on 01/30/25at 17:43; Start 01/29/25 at 07:30; Stop 02/28/25 at 07:29 Ipratropium Parker 0.5 MG Q6H PRN IH; Start 01/29/25 at 11:00; Stop 02/28/25 at 10:59 Dexamethasone Sodium Phosphate 10 mg DAILY IVP Last administered on 01/30/25at 08:58; Start 01/29/25 at 11:00; Stop 02/28/25 at 10:59 Furosemide 40 mg DAILY PO Last administered on 01/30/25at 11:56; Start 01/30/25 at 11:35; Stop 03/01/25 at 11:34 Benzonatate 100 mg Q8H PRN PO; Start 01/30/25 at 15:00; Stop 02/09/25 at 12:00 Guaifenesin/ Dextromethorphan 5 ml Q6H PRN PO; Start 01/30/25 at 15:00; Stop 02/08/25 at 12:00 MAITE RESTREPO MD Jan 30, 2025 21:42
--- NOTE | 2025-01-30 23:07 | PN ---
SUBJECTIVE: A 44-year-old male who has had a prolonged hospital course. The patient initially admitted and found to have endocarditis. The patient has had acute renal failure in the hospital. Creatinine has actually improved. He remains on the broad spectrum IV antibiotics. The patient's CT scan did reveal pneumonia and he remains on the antibiotics as well as aggressive pulmonary toilet. He is being seen as a followup visit for all of the above. REVIEW OF SYSTEMS: GENERAL: He is feeling weak and tired. HEENT: No change in vision. No change in hearing. CARDIOVASCULAR: There is no current chest pain or palpitations. PULMONARY: No shortness of breath. GASTROINTESTINAL: The patient is tolerating a diet. MUSCULOSKELETAL: Complains of weakness. PHYSICAL EXAMINATION: VITAL SIGNS: Blood pressure 151/83, pulse of 90s. GENERAL: He is a chronically ill male, lying in bed in the medical floor. HEENT: Head is atraumatic. Pupils equal, roving to light. Oropharynx is without exudate. Nares clear. NECK: There is no JVP. There is no thyromegaly, no mass. CARDIOVASCULAR: Regular. There is no S3, S4 gallop. LUNGS: Coarse with equal thoracic movement. ABDOMEN: Soft, nondistended, nontender. EXTREMITIES: Reveal no clubbing, no cyanosis. NEUROLOGIC: He is awake. He is alert. IMPRESSION: * Acute on chronic renal failure. * Endocarditis. * Diabetes mellitus. * Hypertension. PLAN: The patient is being seen Cardiology for possible repeat DRAKE. The patient's renal function has remained quite stable. We will repeat the chemistries in the a.m. The patient does remain on the antibiotics. The patient with multiple questions, all of which were answered. TID: [id number] RECEIPT: [id number]
[2025-01-31] VITALS (9 sets, daily range): BP systolic 137–152; BP diastolic 69–88; PULSE 85–95; RESP 18–20; TEMP 97.8–99.1; O2SAT 92–100
[2025-01-31] MEDS: BENZONATATE 100 MG CAPSULE PO PRN (05:37)
[2025-01-31 06:21] LABS: BASOPHILS # (AUTO) 0.02 K/uL (0.00-0.20); BASOPHILS % (AUTO) 0.2 % (0.0-5.0); EOSINOPHILS # (AUTO) 0.07 K/uL (0.00-0.70); EOSINOPHILS % (AUTO) 0.7 % (0.0-8.0); HEMATOCRIT 29.9 % (42-54); IMMATURE GRANULOCYTE ABSOLUTE 0.13 K/uL (0-1); MEAN CORPUSCULAR HEMOGLOBIN 31.6 pg (27.0-33.0); MEAN CORPUSCULAR HGB CONC 32.4 g/dL (32.0-36.0); MEAN CORPUSCULAR VOLUME 97.4 fL (79-99); MONOCYTES # (AUTO) 0.5 K/uL (0.1-1.0); NEUTROPHILS # (AUTO) 7.9 K/uL (1.8-7.7); NEUTROPHILS % (AUTO) 73.9 % (40.0-77.0); NUCLEATED RED BLOOD CELLS 0.2 % (0.0-0.19); PLATELET COUNT (AUTO) 203 K/uL (130-400); RED BLOOD CELL COUNT(AUTO) 3.07 MIL/uL (4.50-6.20); RED CELL DISTRIBUTION WIDTH 14.2 % (11.0-15.5); WHITE BLOOD COUNT (AUTO) 10.7 K/uL (4.8-10.8)
[2025-01-31 06:40] LABS: CREATININE 1.2 mg/dL (0.5-1.3); MAGNESIUM 1.7 mg/dL (1.80-2.40); PHOSPHORUS 4.1 mg/dL (2.5-4.9); POTASSIUM 3.7 mmol/L (3.5-5.1)
--- NOTE | 2025-01-31 07:42 | PN ---
GASTROENTEROLOGY PROGRESS NOTE Date of Visit: Jan 31, 2025 Time of Visit: 07:42 Events / Notes: No acute events overnight. Patient had EGD revealing LA Grade B esophagitis. Denies fever, chills, abdominal pain, N/V, hematemesis, bloating, constipation, diarrhea, melena or hematochezia. Hgb trended down slightly today. No overt GI bleeding. Review of Systems: CONSTITUTIONAL: No malaise or change in sensation of wellbeing. ENMT: No rhinorrhea, otorrhea, sinus pain, ear ache. CARDIOVASCULAR: No angina, palpitations, orthopnea or paroxysmal dyspnea. RESPIRATORY: No SOB. GASTROINTESTINAL: No abdominal pain, nausea, vomiting, diarrhea, hematemesis, melena or change in the patient's habitual bowel movements consistency/number. GENITOURINARY: No dysuria, hematuria or change in bladder continence. MUSCULOSKELETAL: No new muscle pain or decrease in muscular strength. No new joint swelling, redness or tenderness. SKIN: No new rash. Physical Exam: GEN: Awake, alert, oriented in person, time and place, and in no acute distress. HEENT: No sinus tenderness. Tympanic membranes were not examined. No rhinorrhea. Oral pharyngeal mucosa is pink, moist and within normal limits. Neck is supple with no cervical lymphadenopathy, thyromegaly or JVD. CHEST: Inspection, palpation and percussion of the chest were unremarkable. Lung auscultation revealed normal breath sounds bilaterally. CARDIAC: PMI is within normal limits. Heart sounds are regular. Normal S1, S2. No gallop or murmur. ABD: Soft, non-tender and not distended. No peritoneal signs on palpation. No organomegaly. Normal bowel sounds. EXT: No cyanosis or clubbing. No edema. SKIN: Intact. No rashes. JOINTS: No evidence of synovitis or acute arthritis. NEURO: Alert and oriented to name, place and person. Cranial nerve examination is unremarkable. No focal motor deficits. Normal speech. Gait is normal. Strength is normal. Vital Signs (last 8hr) Date Time Temp Pulse Resp B/P (MAP) Pulse Ox O2 Delivery O2 Flow Rate FiO2 01/31/25 07:22 94 19 N/Cannula Low lpm 3.0 32 01/31/25 04:00 98.1 91 20 143/70 96 Room Air 3/4/25 00:00 98.1 85 20 150/81 97 Room Air 01/31/25 00:00 98.1 85 20 150/81 97 Room Air Laboratory: [ ] Laboratory: Test 01/31/25 06:00 01/31/25 05:49 Range/Units White Blood Count 10.7 4.8-10.8 K/uL Red Blood Count 3.07 L 4.50-6.20 MIL/uL Hemoglobin 9.7 L 14.0-18.0 g/dL Hematocrit 29.9 L 42-54 % Mean Corpuscular Volume 97.4 79-99 fL Mean Corpuscular Hemoglobin 31.6 27.0-33.0 pg Mean Corpuscular Hemoglobin Concent 32.4 32.0-36.0 g/dL Red Cell Distribution Width 14.2 11.0-15.5 % Platelet Count 203 130-400 K/uL Mean Platelet Volume 9.6 7.5-10.5 fL Immature Granulocyte % (Auto) 1.2 H 0-1 % Neutrophils (%) (Auto) 73.9 40.0-77.0 % Lymphocytes (%) (Auto) 19.0 L 21.0-51.0 % Monocytes (%) (Auto) 5.0 3.0-13.0 % Eosinophils (%) (Auto) 0.7 0.0-8.0 % Basophils (%) (Auto) 0.2 0.0-5.0 % Neutrophils # (Auto) 7.9 H 1.8-7.7 K/uL Lymphocytes # (Auto) 2.0 1.0-4.8 K/uL Monocytes # (Auto) 0.5 0.1-1.0 K/uL Eosinophils # (Auto) 0.07 0.00-0.70 K/uL Basophils # (Auto) 0.02 0.00-0.20 K/uL Absolute Immature Granulocyte (auto 0.13 0-1 K/uL Nucleated Red Blood Cells 0.2 H 0.0-0.19 % Sodium Level 134 L 136-145 mmol/L Potassium Level 3.7 3.5-5.1 mmol/L Chloride Level 101 101-111 mmol/L Carbon Dioxide Level 25 21-32 mmol/L Blood Urea Nitrogen 27 H 7-18 mg/dL Creatinine 1.2 0.5-1.3 mg/dL Glomerular Filtration Rate Calc 76 >90 mL/min Random Glucose 96 70-105 mg/dL Total Calcium 8.5 8.5-10.1 mg/dL Phosphorus Level 4.1 2.5-4.9 mg/dL Magnesium Level 1.70 L 1.80-2.40 mg/dL Whole Blood Glucose 98 70-110 MG/DL Current Medications Medications (Trade) Dose Ordered Sig/Asya Route PRN Reason Start Time Stop Time Status Last Admin Dose Admin Acetaminophen (TYLenol 325MG TAB) 650 mg Q6H PRN PO MILD PAIN (1-3) 01/16/25 17:30 02/15/25 17:29 01/31/25 05:37 650 MG Acetaminophen (TYLenol 325MG TAB) 650 mg Q6H PRN PO TEMPERATURE GREATER THAN 101.5 01/05/25 02:30 02/04/25 02:29 01/30/25 08:58 650 MG Apixaban (EliquIS) 5 mg BID PO 01/21/25 21:00 01/23/25 10:57 DC 01/22/25 09:02 5 MG Apixaban (EliquIS) 5 mg BID PO 01/23/25 21:00 01/27/25 10:16 DC 01/27/25 09:01 5 MG Apixaban (EliquIS) 5 mg BID PO 01/25/25 21:00 01/21/25 16:00 DC Apixaban (EliquIS) 10 mg BID PO 01/18/25 21:00 01/18/25 13:52 DC Apixaban (EliquIS) 10 mg BID PO 01/18/25 21:00 01/21/25 16:00 DC 01/21/25 08:45 10 MG Aspirin (Aspirin 81mg Chew Tab) 81 mg DAILY PO 01/05/25 09:00 01/05/25 09:53 DC Aspirin (Aspirin 81mg Ec Tab) 81 mg DAILY PO 01/16/25 09:00 01/26/25 10:14 DC 01/25/25 09:45 81 MG Benzocaine (Cepacol Sore Throat Lozenge) 1 each Q4H PRN MM SORE THROAT 01/05/25 02:30 02/04/25 02:29 Benzonatate (Tessalon 100mg Caps) 100 mg Q8H PRN PO Dry cough 01/30/25 15:00 02/09/25 12:00 01/31/25 05:37 100 MG Calcium Gluconate 1 gm/Sodium Chloride 100 ml @ 0 mls/hr AD PRN IV Serum Calcium Correction 01/08/25 02:30 02/07/25 02:29 01/08/25 23:32 90 MLS/HR Cefazolin Sodium (Ancef) 2 gm Q12H IVPB 01/07/25 13:30 01/16/25 14:43 DC 01/16/25 01:12 2 GM Cefazolin Sodium (Ancef) 2 gm Q8H IVPB 01/16/25 21:30 01/17/25 13:22 DC 01/17/25 05:07 2 GM Chlordiazepoxide HCl (LIBrium 25 MG CAP) 25 mg Q8H PO 01/05/25 02:30 01/11/25 11:39 DC 01/10/25 22:23 25 MG Chlordiazepoxide HCl (LIBrium 25 MG CAP) 25 mg Q8H PRN PO WITHDRAWAL 01/11/25 12:00 01/12/25 02:29 DC Dexamethasone Sodium Phosphate (dexaMETHasone 10MG/ML 1ML VIAL) 10 mg DAILY IVP 01/29/25 11:00 02/28/25 10:59 01/30/25 08:58 10 MG Dexamethasone Sodium Phosphate 10 mg/Sodium Chloride 51 ml @ 100 mls/hr DAILY IV 01/28/25 09:00 01/29/25 10:57 DC 01/28/25 13:03 100 MLS/HR Dexamethasone Sodium Phosphate 20 mg/Sodium Chloride 52 ml @ 100 mls/hr DAILY IV 01/09/25 09:00 01/27/25 19:04 DC 01/27/25 09:16 100 MLS/HR Dexamethasone Sodium Phosphate 40 mg/Sodium Chloride 50 ml @ 100 mls/hr DAILY IV 01/06/25 14:00 01/08/25 12:16 DC 01/08/25 09:34 100 MLS/HR Dextrose (D50w) 50 ml AD PRN IV HYPOGLYCEMIA PROTOCOL 01/05/25 10:00 02/04/25 09:59 Doxycycline Hyclate 250 ml @ 125 mls/hr Q12H IV 01/05/25 10:00 01/06/25 21:05 DC 01/06/25 09:30 125 MLS/HR Doxycycline Hyclate 250 ml @ 125 mls/hr Q12H IV 01/06/25 21:30 01/16/25 14:23 DC 01/16/25 10:13 125 MLS/HR Fluconazole (DiFLUCan 100 mg TAB) 200 mg DAILY PO 01/12/25 09:00 01/25/25 16:12 DC 01/25/25 09:44 200 MG Folic Acid (FOLic ACID 1 MG TABLET) 1 mg DAILY PO 01/07/25 10:30 02/06/25 10:29 01/30/25 08:58 1 MG Furosemide (LASix 20MG VIAL) 20 mg BIDPC IV 01/25/25 10:00 01/26/25 18:01 DC 01/26/25 18:06 20 MG Furosemide (LASix 20MG VIAL) 20 mg Q12H IV 01/07/25 16:00 01/11/25 00:56 DC 01/10/25 19:40 20 MG Furosemide (LASix 40MG TAB) 40 mg DAILY PO 01/30/25 11:35 03/01/25 11:34 01/30/25 11:56 40 MG Gentamicin Sulfate 150 mg/ Sodium Chloride 100 ml @ 100 mls/hr Q12H IV 01/20/25 16:00 01/22/25 03:27 DC 01/21/25 16:00 100 MLS/HR Gentamicin Sulfate 90 mg/ Sodium Chloride 50 ml @ 100 mls/hr Q8H IV 01/22/25 03:30 01/22/25 03:30 DC Gentamicin Sulfate 90 mg/ Sodium Chloride 50 ml @ 100 mls/hr Q8H IV 01/22/25 04:00 01/23/25 20:03 DC 01/23/25 12:54 100 MLS/HR Gentamicin Sulfate/Sodium Chloride 100 ml @ 200 mls/hr BID@0600,1800 IV 01/24/25 06:00 01/25/25 16:12 DC 01/25/25 05:48 200 MLS/HR Gentamicin Sulfate/Sodium Chloride 100 ml @ 200 mls/hr Q12H IV 01/16/25 15:30 01/18/25 03:39 DC 01/17/25 16:00 200 MLS/HR Gentamicin Sulfate/Sodium Chloride 100 ml @ 200 mls/hr Q12H IV 01/18/25 04:00 01/20/25 06:41 DC 01/20/25 05:38 200 MLS/HR Glucagon (Glucagon 1mg Kit) 1 mg AD PRN IM HYPOGLYCEMIA PROTOCOL 01/05/25 10:00 02/04/25 09:59 Guaifenesin/ Dextromethorphan (RobiTUSSin DM 200/20MG 10ML) 5 ml Q6H PRN PO COUGH 01/30/25 15:00 02/08/25 12:00 Heparin Sodium/ Dextrose 250 ml @ 0 mls/hr PROTOCOL IV 01/11/25 14:30 01/18/25 13:28 DC 01/17/25 16:09 13.99 MLS/HR Hydralazine HCl (APRESOLine 20MG INJ) 5 mg Q6H PRN IV For:SBP above 160;DBP above 90 01/05/25 14:30 02/04/25 14:29 01/10/25 22:24 5 MG Hydralazine HCl (APRESOLine 20MG INJ) 10 mg Q6H PRN IV For:SBP above 160;DBP above 90 01/05/25 02:30 01/05/25 09:53 DC Insulin Glargine (LANtus 100 UNITS/ML 10 ML VIAL) 15 units DAILY SQ 01/24/25 09:00 02/23/25 08:59 01/30/25 09:51 15 UNITS Insulin Glargine (LANtus 100 UNITS/ML 10 ML VIAL) 15 units Q12H SQ 01/07/25 21:30 01/09/25 23:18 DC 01/09/25 13:10 15 UNITS Insulin Glargine (LANtus 100 UNITS/ML 10 ML VIAL) 20 units DAILY SQ 01/14/25 09:00 01/23/25 21:37 DC 01/23/25 09:41 20 UNITS Insulin Glargine (LANtus 100 UNITS/ML 10 ML VIAL) 20 units HS SQ 01/06/25 21:00 01/06/25 21:05 DC Insulin Glargine (LANtus 100 UNITS/ML 10 ML VIAL) 20 units HS SQ 01/06/25 21:30 01/07/25 10:24 DC 01/06/25 21:33 20 UNITS Insulin Glargine (LANtus 100 UNITS/ML 10 ML VIAL) 20 units Q12H SQ 01/10/25 09:30 01/10/25 12:58 DC Insulin Glargine (LANtus 100 UNITS/ML 10 ML VIAL) 25 units Q12H SQ 01/10/25 21:30 01/11/25 00:50 DC 01/10/25 22:19 25 UNITS Insulin Glargine (LANtus 100 UNITS/ML 10 ML VIAL) 30 units DAILY SQ 01/12/25 09:00 01/14/25 07:03 DC 01/12/25 11:25 30 UNITS Insulin Glargine (LANtus 100 UNITS/ML 10 ML VIAL) 30 units Q12H SQ 01/11/25 09:30 01/11/25 20:13 DC 01/11/25 10:50 30 UNITS Insulin Human Regular (humuLIN R 100 UNIT/ML 3ML) 5 unit TIDAC SQ 01/14/25 07:30 01/29/25 06:36 DC 01/28/25 16:50 5 UNIT Insulin Human Regular (humuLIN R 100 UNIT/ML 3ML) 7 unit TIDAC SQ 01/29/25 07:30 02/28/25 07:29 01/30/25 17:43 7 UNIT Insulin Human Regular (humuLIN R 100 UNIT/ML 3ML) 8 unit TIDAC SQ 01/11/25 07:30 01/14/25 07:03 DC 01/13/25 19:47 8 UNIT Insulin Human Regular (humuLIN R 100 UNIT/ML 3ML) INSULIN SLIDING SCAL... ACHS SQ 01/18/25 21:00 01/28/25 22:15 DC 01/28/25 21:07 7 UNIT Insulin Human Regular (humuLIN R 100 UNIT/ML 3ML) INSULIN SLIDING SCAL... ACHS SQ 01/05/25 07:30 01/05/25 09:57 DC 01/05/25 07:59 16 UNIT Insulin Human Regular (humuLIN R 100 UNIT/ML 3ML) INSULIN SLIDING SCAL... ACHS SQ 01/05/25 11:30 01/06/25 16:43 DC 01/06/25 11:50 8 UNIT Insulin Human Regular (humuLIN R 100 UNIT/ML 3ML) INSULIN SLIDING SCAL... ACHS SQ 01/06/25 17:00 01/07/25 13:32 DC 01/06/25 17:17 16 UNIT Insulin Human Regular (humuLIN R 100 UNIT/ML 3ML) INSULIN SLIDING SCAL... ACHS SQ 01/29/25 07:30 02/28/25 07:29 01/30/25 21:28 2 UNIT Insulin Human Regular (humuLIN R 100 UNIT/ML 3ML) INSULIN SLIDING SCAL... Q4H SQ 01/11/25 02:00 01/11/25 23:59 DC 01/11/25 20:49 6 UNIT Insulin Human Regular (humuLIN R 100 UNIT/ML 3ML) INSULIN SLIDING SCAL... Q4H SQ 01/11/25 23:59 01/18/25 19:33 DC 01/18/25 16:59 4 UNIT Insulin Human Regular (humuLIN R 100 UNIT/ML 3ML) INSULIN SLIDING SCAL... Q6H6 SQ 01/10/25 18:00 01/11/25 00:50 DC 01/11/25 00:45 10 UNIT Insulin Human Regular 100 unit/ Sodium Chloride 100 ml @ 0 mls/hr AD PRN IV HYPERGLYCEMIA PROTOCOL 01/06/25 19:30 01/10/25 06:00 DC 01/09/25 19:10 16 MLS/HR Ipratropium [place] (AtrovENT UD) 0.5 MG Q6H PRN IH SHORTNESS OF BREATH 01/29/25 11:00 02/28/25 10:59 Iron Sucrose (VenoFER) 300 mg Q24H IVP 01/21/25 15:00 01/21/25 15:29 DC Iron Sucrose 300 mg/Sodium Chloride 250 ml @ 166.667 mls/hr Q24H IV 01/21/25 16:00 01/21/25 17:22 DC Iron Sucrose 300 mg/Sodium Chloride 250 ml @ 166.667 mls/hr Q24H IV 01/21/25 19:30 01/21/25 20:57 DC Iron Sucrose 300 mg/Sodium Chloride 250 ml @ 166.667 mls/hr Q24H IV 01/21/25 21:00 01/23/25 22:29 DC 01/23/25 20:56 166.667 MLS/HR Lactated Ringer's 1,000 ml @ 100 mls/hr Q10H IV 01/05/25 02:30 01/05/25 09:51 DC 01/05/25 02:30 100 MLS/HR Lactated Ringer's 1,000 ml @ 125 mls/hr Q8H IV 01/10/25 01:30 01/10/25 19:40 DC 01/10/25 13:07 125 MLS/HR Lactobacillus Rhamnosus ([facility]) 1 each DAILY PO 01/12/25 09:00 02/11/25 08:59 01/30/25 08:58 1 EACH Lidocaine (Lidoderm Patch 5%) 1 patch DAILY TP 01/25/25 12:00 02/24/25 11:59 01/30/25 08:59 1 PATCH Linezolid 300 ml @ 300 mls/hr Q12H IV 01/25/25 20:30 02/04/25 20:29 01/30/25 20:11 300 MLS/HR Lorazepam (AtiVAN) 1 mg Q4H PRN IVP ALCOHOL WITHDRAWAL PROTOCOL 01/05/25 02:30 01/12/25 02:29 DC Magnesium Sulfate 50 ml @ 0 mls/hr PROTOCOL PRN IV h 01/05/25 02:30 02/04/25 02:29 01/31/25 06:46 25 MLS/HR Melatonin (Melatonin) 10 mg HS PRN PO INSOMNIA 01/21/25 21:30 02/20/25 21:29 01/30/25 22:24 10 MG Morphine Sulfate (morPHINE 2MG SYG) 2 mg Q4H PRN IVP SEVERE PAIN (7-10) 01/05/25 02:30 01/12/25 02:29 DC Multivitamins Therapeutic (Multivitamin Tablet) 1 tab DAILY PO 01/07/25 10:30 02/06/25 10:29 01/30/25 08:58 1 TAB Nafcillin Sodium (Nafcillin 2gm+ NS 100ml) 2 gm Q6H6 IV 01/17/25 18:00 01/25/25 16:12 DC 01/25/25 12:18 2 GM Nicotine (Nicoderm) 21 mg DAILY TD 01/05/25 09:00 02/04/25 08:59 01/30/25 09:00 21 MG Nitroglycerin (Nitrostat) 0.4 mg AD PRN SL CHEST PAIN 01/05/25 02:30 02/04/25 02:29 Nystatin (NYSTatin 660731 UNIT/ML 5ML UDCUP) 100,000 UNITS 1 ML TO E... QID PO 01/18/25 09:00 02/17/25 08:59 01/30/25 21:23 1 ML Ondansetron HCl (zoFRAN 4MG INJ) 4 mg Q6H PRN IV NAUSEA/VOMITING 01/05/25 02:30 02/04/25 02:29 Pantoprazole Sodium (PROTonix 40MG INJ) 40 mg Q24H IVP 01/26/25 04:30 02/25/25 04:29 01/31/25 04:08 40 MG Pantoprazole Sodium (PROTonix 40MG TAB) 40 mg DAILY PO 01/05/25 09:00 01/26/25 04:16 DC 01/25/25 09:45 40 MG Pharmacy Profile Note (Pharmacy Communication) 1 each ONCE MISC 01/16/25 14:30 01/16/25 15:12 DC Pharmacy Profile Note (Pharmacy Communication) 1 each ONCE MISC 01/25/25 07:30 01/25/25 07:26 DC Pharmacy Profile Note (Pharmacy Communication) 1 each ONCE MISC 01/25/25 16:30 01/25/25 16:12 DC Pharmacy Profile Note (Pharmacy Communication) 1 each PROTOCOL PRN MISC ETOH Withdrawal Score changes 01/05/25 02:30 01/12/25 02:29 DC Piperacillin Sod/ Tazobactam Sod (Zosyn 3.375gm+NS 50ml) 3.375 gm Q12H IV 01/05/25 02:30 01/07/25 13:24 DC 01/07/25 02:45 3.375 GM Potassium Phosphate 250 ml @ 42 mls/hr PROTOCOL PRN IV PROTOCOL 01/05/25 10:00 02/04/25 09:59 Potassium Chloride 100 ml @ 100 mls/hr AD PRN IV POTASSIUM PROTOCOL 01/05/25 02:30 01/07/25 10:12 DC Potassium Chloride 100 ml @ 100 mls/hr AD PRN IV POTASSIUM PROTOCOL 01/07/25 10:30 02/06/25 10:29 01/09/25 06:26 100 MLS/HR Potassium Chloride (K-Dur 10meq Sr Tab) 10 meq AD PRN PO POTASSIUM PROTOCOL 01/06/25 09:30 02/04/25 02:29 01/08/25 23:35 10 MEQ Potassium Chloride (K-Dur/Klor-Con 20meq) 10 meq AD PRN PO POTASSIUM PROTOCOL 01/05/25 02:30 01/06/25 09:12 DC 01/05/25 22:15 10 MEQ Potassium Chloride (K-Dur/Klor-Con 20meq) 10 meq AD PRN PO POTASSIUM PROTOCOL 01/07/25 10:30 01/07/25 10:12 DC Potassium Chloride (KCl 10% Elixir 20meq/15ml) 10 meq AD PRN PO POTASSIUM PROTOCOL 01/05/25 02:30 01/07/25 10:12 DC 01/06/25 17:16 10 MEQ Potassium Chloride (KCl 10% Elixir 20meq/15ml) 10 meq AD PRN PO POTASSIUM PROTOCOL 01/07/25 10:30 02/06/25 10:29 01/23/25 15:27 10 MEQ Sodium Bicarbonate (Sodium Bicarbonate) 1,300 mg BID PO 01/11/25 09:00 01/30/25 09:19 DC 01/30/25 08:58 1,300 MG Sodium Chloride 1,000 ml @ 50 mls/hr Q20H IV 01/05/25 10:00 01/10/25 01:33 DC 01/09/25 05:56 50 MLS/HR Sodium Chloride 1,000 ml @ 75 mls/hr [id number] IV 01/11/25 01:00 01/11/25 13:45 DC 01/11/25 01:00 75 MLS/HR Triamcinolone Acetonide (Kenalog/ Aristocort) 1 APPLY TP BID BID TP 01/07/25 11:00 02/06/25 10:59 01/30/25 20:43 1 APPL Vancomycin HCl (Vancomycin Protocol) 1 each AD IV 01/07/25 12:30 01/07/25 12:40 DC Diagnostics / Radiology: [COPY/PASTE HERE IF NO REPORTS PLEASE DELETE SECTION] Assessment: GERD esophagitis Decompensated cirrhosis Thrombocytopenia Abnormal troponin Alcohol abuse Plan: Follow cardio recommendations Will obtain liver serologies to r/o other liver pathology Please contact our service if the patient has significant bleeding such as hematemesis and we can proceed sooner with the EGD Thanks you for allowing us to participate in the care of this patient! HILDA MUIR [facility] Jan 31, 2025 07:42
--- NOTE | 2025-01-31 09:54 | NUR ---
CARDIOLOGY IN TO SEE PATIENT TODAY AT 0845. PER ORDER KEEP PATIENT OFF ANTICOAGULANTS UNTIL FURTHER NOTICE.
--- NOTE | 2025-01-31 10:11 | HMCIMG ---
PORTABLE CHEST RADIOGRAPH INDICATION: Worsening respiratory status COMPARISON: 01/30/2025 at 1509 hours FINDINGS/IMPRESSION: Tip of left PICC within the SVC. Stable normal heart size without pulmonary vascular congestion. Worsening right lung opacities compatible with pneumonia and suspect new subtle left lower lung opacities, but no evidence for pneumothorax.
--- NOTE | 2025-01-31 10:35 | PN ---
[facility] CARDIOLOGY PROGRESS NOTE Date Patient Seen: Jan 31, 2025 Time of Visit: 10:33 Interval History: No acute events overnight. Currently denies any cardiac symptoms or anginal equivalents. Physical Examination: GENERAL: No acute distress. HEAD: Normal with no signs of head trauma. EYES: PERRLA, EOMI, conjunctiva and sclera normal. NECK: Supple without JVD. There is no tenderness, lymphadenopathy, or masses. No thyromegaly. Normal carotid upstrokes without bruits. LUNGS: Crackles to mid and lower bases bilaterally. HEART: Regular rate. Normal S1 and S2. No obvious murmurs, gallops, or rubs n oted. No murmur audible. VASC: Peripheral pulses +2 bilaterally. EXT: Ecchymosis to the right upper arm noted. There is a left calf hematoma and increased girth of the left calf compared to the right calf. 2-3+ pedal edema. There are scattered petechial and purpuric patches. NEURO: Awake, alert, and oriented. No focal neurological deficits noted. Laboratory: [ ] Hematology Labs: Test 01/31/25 06:00 Range/Units White Blood Count 10.7 4.8-10.8 K/uL Red Blood Count 3.07 L 4.50-6.20 MIL/uL Hemoglobin 9.7 L 14.0-18.0 g/dL Hematocrit 29.9 L 42-54 % Mean Corpuscular Volume 97.4 79-99 fL Mean Corpuscular Hemoglobin 31.6 27.0-33.0 pg Mean Corpuscular Hemoglobin Concent 32.4 32.0-36.0 g/dL Red Cell Distribution Width 14.2 11.0-15.5 % Platelet Count 203 130-400 K/uL Mean Platelet Volume 9.6 7.5-10.5 fL Immature Granulocyte % (Auto) 1.2 H 0-1 % Neutrophils (%) (Auto) 73.9 40.0-77.0 % Lymphocytes (%) (Auto) 19.0 L 21.0-51.0 % Monocytes (%) (Auto) 5.0 3.0-13.0 % Eosinophils (%) (Auto) 0.7 0.0-8.0 % Basophils (%) (Auto) 0.2 0.0-5.0 % Neutrophils # (Auto) 7.9 H 1.8-7.7 K/uL Lymphocytes # (Auto) 2.0 1.0-4.8 K/uL Monocytes # (Auto) 0.5 0.1-1.0 K/uL Eosinophils # (Auto) 0.07 0.00-0.70 K/uL Basophils # (Auto) 0.02 0.00-0.20 K/uL Absolute Immature Granulocyte (auto 0.13 0-1 K/uL Nucleated Red Blood Cells 0.2 H 0.0-0.19 % Chemistry Labs: Test 01/31/25 06:00 01/31/25 05:49 Range/Units Sodium Level 134 L 136-145 mmol/L Potassium Level 3.7 3.5-5.1 mmol/L Chloride Level 101 101-111 mmol/L Carbon Dioxide Level 25 21-32 mmol/L Blood Urea Nitrogen 27 H 7-18 mg/dL Creatinine 1.2 0.5-1.3 mg/dL Glomerular Filtration Rate Calc 76 >90 mL/min Random Glucose 96 70-105 mg/dL Total Calcium 8.5 8.5-10.1 mg/dL Phosphorus Level 4.1 2.5-4.9 mg/dL Magnesium Level 1.70 L 1.80-2.40 mg/dL Whole Blood Glucose 98 70-110 MG/DL Diagnostics / Radiology: [Copy/Paste Echos/Imaging Report here] Impression: 1. Gram-positive bacteremia due to MRSA, unknown source 2. 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 Left atrial appendage thrombus with no known history of atrial fibrillation 4. Urinary tract infection with Klebsiella pneumonia 5. Idiopathic thrombocytopenic purpura, on steroids 6. Acute kidney injury 7. Anemia 8. Type 2 diabetes, newly diagnosed 9. Polysubstance abuse with alcohol, cocaine, and tobacco Plan: Bacterial endocarditis affecting the aortic valve (1.81x1.17 cm mass attached to the noncoronary cusp leaflet) identified on DRAKE done 01/11/2025 -Limited follow up 2D echocardiogram 01/23/2025 demonstrated vegetation measuring 0.8cm x 1.15cm with a traced area of 0.9cm (relatively unchanged) -Positive blood cultures collected 01/05/2025, 01/07/2025, 01/09/2025, 01/11/2025 -Blood cultures collected and negative from 01/14/2025 -The patient will continue on IV antibiotic therapy which has been tailored by ID -will plan for DRAKE after 4-6 weeks of IV antibiotics to evaluate vegetation. Time starts on day blood cultures became negative, so 01/14/2025, therefore DRAKE will be done in 6 weeks from that date February 28 Left atrial appendage thrombus identified on DRAKE done 01/11/2025 -We will hold Eliquis 5 mg b.i.d. and have Hematology see the patient to further evaluate the etiology of the LLE hematoma LLE hematoma -holding eliquis Thank you for this consult cardiology will continue to follow along MD SANDRA Guzman DANIELLE M MD Jan 31, 2025 10:34
--- NOTE | 2025-01-31 12:52 | NUR ---
NUTRITIONAL F/U No changes in wt since last F/U 01/24/25. Pt reported tolerating Glucerna and Prostat Jello, asked to change flavor from chocolate to strawberry. Pt reported last BM 01/30/25, PO intake 100%, no concerns with food. Pt adherence expectance is good. Recommendations: - Continue Carb Consistent Diet 75 g (1800 2000) - Continue Glucerna strawberry supplement TID all trays - Continue Prostat Jello 30 ml TID all trays - Monitor PO intake - Reweigh as able - Monitor care goals RD to follow + available for consult per protocol DIETETIC STUDENT, HILDA ZAMARRIPA Addendum: 01/31/25 at [address] Amended: Links added.
--- NOTE | 2025-01-31 15:15 | NUR ---
POC: CM MET WITH PT. PT MADE AWARE PT MISSED APPOINTMENT X2, PT MISSED W/SSI INTERVIEW THIS MORNING AGAIN, PT STATED HE WAS BUSY W/MD. EDUCATED PT ON IMPORTANCE OF BEING COOPERATIVE WITH SSI PROCESS, PT MADE AWARE S[facility]A TO FOLLOW UP WITH PT TO TRY AND RESCHEDULE INTERVIEW AGAIN. PT VERBALIZED UNDERSTANDING. CM TO CONTINUE TO FOLLOW UP.
[2025-01-31] MEDS ORDERED: Benzocaine/Menth/Cetylpyrd Cl MM (18:21)
[2025-01-31] MEDS ORDERED: ACET-2247 PO (18:21)
[2025-01-31] MEDS ORDERED: MELA5TAB66 PO (18:21)
[2025-01-31] MEDS ORDERED: FURO40TA7 PO (18:21)
[2025-01-31] MEDS ORDERED: TRIA15CR45 TP (18:21)
[2025-01-31] MEDS ORDERED: NYST100033 PO (18:21)
[2025-01-31] MEDS ORDERED: IPRNEB IH (18:21)
[2025-01-31] MEDS ORDERED: FOLI1 PO (18:21)
[2025-01-31] MEDS ORDERED: [UNRECOGNIZED DRUG - CODE] IV (18:21)
[2025-01-31] MEDS ORDERED: MVIT PO (18:21)
[2025-01-31] MEDS ORDERED: Nitroglycerin 0.4MG Sl Tab SL (18:21)
[2025-01-31] MEDS ORDERED: INSU3INS3 SQ (18:21)
--- NOTE | 2025-01-31 19:26 | NUR ---
PATIENT DISCHARGED HOME. EDUCATED PATIENT ON: MEDICATIONS TO CONTINUE AT HOME, FOLLOW UP APPOINTMENTS WITH PRIMARY AND SPECIALISTS, OUTPATIENT ANTIBIOTIC THERAPY WITH [facility] AND [facility]GENCY DEPARTMENT, AND EDUCATIONAL MATERIAL PROVIDED FOR PATIENT ABOUT CONDITION INCLUDED IN PACKET. PATIENT VERBALIZED UNDERSTANDING.
--- NOTE | 2025-01-31 21:07 | PN ---
endocrinology progress note dos: 01/31/25 subjective: he is off insulin drip and on insulin injections. glucose control is improving and off iv steroid. hba1c 8.5% Past Medical History Patient History: Patient reports no known family medical history. ADDITIONAL PAST MEDICAL HISTORY: [Denies any past medical history, fatty liver by CT on 01/05/2025] SOCIAL HISTORY: [Patient smokes one pack of cigarettes daily but only5 times a week. Patient [id number] beers daily but also only5 times a week. Patient reports occasional use of both marijuana and cocaine. Patient denies any other illegal drug use. 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 Patient has poor access to health care due to lack of health insurance. Patient is typically independent of all his ADLs. Patient denies difficulty pain is bills. Patient lives with his daughter Hannah Jin] SURGICAL HISTORY: [Heart stent] Allergies: Coded Allergies: No Known Drug Allergies (Unverified Allergy, Unknown, 12/18/15) Scheduled Amlodipine Besylate (Amlodipine Besylate), 5 MG PO DAILY Atorvastatin Calcium (Lipitor), 40 MG PO HS Hydrochlorothiazide (Hydrochlorothiazide), 25 MG PO DAILY Lisinopril (Lisinopril), 20 MG PO DAILY Losartan Potassium (Losartan Potassium), 50 MG PO DAILY Methylprednisolone (Medrol), 4 MG PO AD Tamsulosin HCl (Flomax), 0.4 MG PO DAILY [Aspirin], 325 MG PO DAILY [Prasugrel Hcl], 10 MG PO DAILY Scheduled PRN Ketorolac Tromethamine (Ketorolac Tromethamine), 10 MG PO TID PRN for PAIN ASSESSMENT: DKA-resolved he is off insulin drip. hba1c 8.5% glucose control is improving now off iv dexamethasone. New onset Uncontrolled Diabetes mellitus type2, POA Severe sepsis, POA Urinary tract infection, POA Endocarditis and staph bacteremia Strep pharyngitis, POA Leukocytosis, POA Hyperlactatemia, POA Acute kidney injury, POA Thrombocytopenia, POA Elevated troponin, POA Substance abuse, POA, cocaine Alcohol dependence, POA Tobacco dependence, POA PLAN: continue lantus 15 units daily continue regular insulin 7 units qac before meals continue medium dose ssi keep glucose less than 180 mg/dl monitor glucose [id number]. patient will need insulin at discharge Vitals/Labs Vital Signs Date Time Temp Pulse Resp B/P (MAP) Pulse Ox O2 Delivery O2 Flow Rate FiO2 01/31/25 19:05 91 20 N/A Room Air 21 01/31/25 16:00 97.9 137/69 98 01/31/25 08:00 0 Laboratory Tests 01/31/25 06:00 Medications Current Medications Sodium Chloride 1,000 ml @ 125 mls/hr ONCE ONCE IV Last administered on 01/05/25at 00:13; Start 01/04/25 at 23:00; Stop 01/05/25 at 06:59; Status DC Aspirin 81 mg ONCE ONCE PO Last administered on 01/05/25at 00:14; Start 01/04/25 at 23:00; Stop 01/04/25 at 23:01; Status DC Ondansetron HCl 4 mg ONCE ONCE IVP Last administered on 01/05/25at 00:13; Start 01/04/25 at 23:00; Stop 01/04/25 at 23:01; Status DC Potassium Chloride 100 ml @ 50 mls/hr ONCE ONCE IV Last administered on 01/05/25at 00:13; Start 01/05/25 at 00:00; Stop 01/05/25 at 01:59; Status DC Potassium Chloride 100 ml @ 50 mls/hr ONCE ONCE IV Last administered on 01/05/25at 03:12; Start 01/05/25 at 00:00; Stop 01/05/25 at 01:59; Status DC Thiamine HCl 100 mg ONCE ONCE IVP Last administered on 01/05/25at 01:01; Start 01/05/25 at 00:00; Stop 01/05/25 at 00:01; Status DC Acetaminophen 500 mg STK-MED ONCE .ROUTE; Start 01/05/25 at 00:28; Stop 01/05/25 at 00:28; Status DC Cefepime HCl 1 gm ONCE ONCE IVPB Last administered on 01/05/25at 01:01; Start 01/05/25 at 01:00; Stop 01/05/25 at 01:02; Status DC Vancomycin HCl 750 mg ONCE ONCE IVPB Last administered on 01/05/25at 02:12; Start 01/05/25 at 01:00; Stop 01/05/25 at 01:02; Status DC Sodium Chloride 250 ml ONCE ONCE IVPB Last administered on 01/05/25at 02:12; Start 01/05/25 at 01:00; Stop 01/05/25 at 01:02; Status DC Acetaminophen 1,000 mg ONCE ONCE PO Last administered on 01/05/25at 00:30; Start 01/05/25 at 01:00; Stop 01/05/25 at 01:02; Status DC Aspirin 81 mg DAILY PO; Start 01/05/25 at 09:00; Stop 01/05/25 at 09:53; Status DC Nitroglycerin 0.4 mg AD PRN SL; Start 01/05/25 at 02:30; Stop 02/04/25 at 02:29 Aspirin 162 mg ONCE ONCE PO Last administered on 01/05/25at 03:06; Start 01/05/25 at 02:30; Stop 01/05/25 at 02:31; Status DC Insulin Human Regular INSULIN SLIDING SCAL... ACHS SQ Last administered on 01/05/25at 07:59; Start 01/05/25 at 07:30; Stop 01/05/25 at 09:57; Status DC Lactated Ringer's 3,429 ml @ 1,143 mls/hr ONCE ONCE IV Last administered on 01/05/25at 03:12; Start 01/05/25 at 02:30; Stop 01/05/25 at 05:29; Status DC Piperacillin Sod/ Tazobactam Sod 3.375 gm Q12H IV Last administered on 01/07/25at 02:45; Start 01/05/25 at 02:30; Stop 01/07/25 at 13:24; Status DC Potassium Chloride 100 ml @ 100 mls/hr AD PRN IV; Start 01/05/25 at 02:30; Stop 01/07/25 at 10:12; Status DC Potassium Chloride 10 meq AD PRN PO Last administered on 01/06/25at 17:16; Start 01/05/25 at 02:30; Stop 01/07/25 at 10:12; Status DC Potassium Chloride 10 meq AD PRN PO Last administered on 01/05/25at 22:15; Start 01/05/25 at 02:30; Stop 01/06/25 at 09:12; Status DC Acetaminophen 650 mg Q6H PRN PO Last administered on 01/30/25at 08:58; Start 01/05/25 at 02:30; Stop 02/04/25 at 02:29 Pantoprazole Sodium 40 mg DAILY PO Last administered on 01/25/25at 09:45; Start 01/05/25 at 09:00; Stop 01/26/25 at 04:16; Status DC Ondansetron HCl 4 mg Q6H PRN IV; Start 01/05/25 at 02:30; Stop 02/04/25 at 02:29 Morphine Sulfate 2 mg Q4H PRN IVP; Start 01/05/25 at 02:30; Stop 01/12/25 at 02:29; Status DC Hydralazine HCl 10 mg Q6H PRN IV; Start 01/05/25 at 02:30; Stop 01/05/25 at 09:53; Status DC Benzocaine 1 each Q4H PRN MM; Start 01/05/25 at 02:30; Stop 02/04/25 at 02:29 Magnesium Sulfate 50 ml @ 0 mls/hr PROTOCOL PRN IV Last administered on 01/31/25at 06:46; Start 01/05/25 at 02:30; Stop 02/04/25 at 02:29 Lactated Ringer's 1,000 ml @ 100 mls/hr Q10H IV Last administered on 01/05/25at 02:30; Start 01/05/25 at 02:30; Stop 01/05/25 at 09:51; Status DC Chlordiazepoxide HCl 25 mg Q8H PO Last administered on 01/10/25at 22:23; Start 01/05/25 at 02:30; Stop 01/11/25 at 11:39; Status DC Lorazepam 1 mg Q4H PRN IVP; Start 01/05/25 at 02:30; Stop 01/12/25 at 02:29; Status DC Pharmacy Profile Note 1 each PROTOCOL PRN MISC; Start 01/05/25 at 02:30; Stop 01/12/25 at 02:29; Status DC Nicotine 21 mg DAILY TD Last administered on 01/31/25at 08:55; Start 01/05/25 at 09:00; Stop 02/04/25 at 08:59 Sodium Chloride 1,000 ml @ 50 mls/hr Q20H IV Last administered on 01/09/25at 05:56; Start 01/05/25 at 10:00; Stop 01/10/25 at 01:33; Status DC Potassium Phosphate 250 ml @ 42 mls/hr PROTOCOL PRN IV; Start 01/05/25 at 10:00; Stop 02/04/25 at 09:59 Hydralazine HCl 5 mg Q6H PRN IV Last administered on 01/10/25at 22:24; Start 01/05/25 at 14:30; Stop 02/04/25 at 14:29 Doxycycline Hyclate 250 ml @ 125 mls/hr Q12H IV Last administered on 01/06/25at 09:30; Start 01/05/25 at 10:00; Stop 01/06/25 at 21:05; Status DC Potassium Chloride 40 meq ONCE ONCE PO Last administered on 01/05/25at 10:25; Start 01/05/25 at 10:00; Stop 01/05/25 at 10:01; Status DC Potassium Chloride 100 ml @ 50 mls/hr ONCE ONCE IV Last administered on 01/05/25at 10:25; Start 01/05/25 at 10:00; Stop 01/05/25 at 11:59; Status DC Dextrose 50 ml AD PRN IV; Start 01/05/25 at 10:00; Stop 02/04/25 at 09:59 Glucagon 1 mg AD PRN IM; Start 01/05/25 at 10:00; Stop 02/04/25 at 09:59 Insulin Human Regular INSULIN SLIDING SCAL... ACHS SQ Last administered on 01/06/25at 11:50; Start 01/05/25 at 11:30; Stop 01/06/25 at 16:43; Status DC Dexamethasone Sodium Phosphate 10 mg ONCE ONCE IVP Last administered on 01/05/25at 17:27; Start 01/05/25 at 13:30; Stop 01/05/25 at 14:03; Status DC Insulin Glargine 20 units HS SQ; Start 01/06/25 at 21:00; Stop 01/06/25 at 21:05; Status DC Potassium Chloride 10 meq AD PRN PO Last administered on 01/08/25at 23:35; Start 01/06/25 at 09:30; Stop 02/04/25 at 02:29 Dexamethasone Sodium Phosphate 40 mg DAILY ONCE IV; Start 01/07/25 at 09:00; Stop 01/06/25 at 13:27; Status DC Dexamethasone Sodium Phosphate 40 mg/Sodium Chloride 50 ml @ 100 mls/hr DAILY IV Last administered on 01/08/25at 09:34; Start 01/06/25 at 14:00; Stop 01/08/25 at 12:16; Status DC Insulin Human Regular INSULIN SLIDING SCAL... ACHS SQ Last administered on 01/06/25at 17:17; Start 01/06/25 at 17:00; Stop 01/07/25 at 13:32; Status DC Insulin Human Regular 100 unit/ Sodium Chloride 100 ml @ 0 mls/hr AD PRN IV Last administered on 01/09/25at 19:10; Start 01/06/25 at 19:30; Stop 01/10/25 at 06:00; Status DC Insulin Glargine 20 units HS SQ Last administered on 01/06/25at 21:33; Start 01/06/25 at 21:30; Stop 01/07/25 at 10:24; Status DC Doxycycline Hyclate 250 ml @ 125 mls/hr Q12H IV Last administered on 01/16/25at 10:13; Start 01/06/25 at 21:30; Stop 01/16/25 at 14:23; Status DC Chlordiazepoxide HCl 25 mg STK-MED ONCE .ROUTE; Start 01/07/25 at 02:35; Stop 01/07/25 at 02:41; Status DC Piperacillin Sod/ Tazobactam Sod 50 ml @ As Directed STK-MED ONCE .ROUTE; Start 01/07/25 at 02:39; Stop 01/07/25 at 02:41; Status DC Potassium Chloride 0 ml @ As Directed STK-MED ONCE IV; Start 01/07/25 at 07:28; Stop 01/07/25 at 07:31; Status DC Potassium Chloride 40 meq ONCE ONCE PO Last administered on 01/07/25at 09:44; Start 01/07/25 at 10:00; Stop 01/07/25 at 10:01; Status DC Potassium Chloride 100 ml @ 100 mls/hr AD PRN IV Last administered on 01/09/25at 06:26; Start 01/07/25 at 10:30; Stop 02/06/25 at 10:29 Potassium Chloride 10 meq AD PRN PO Last administered on 01/23/25at 15:27; Start 01/07/25 at 10:30; Stop 02/06/25 at 10:29 Potassium Chloride 10 meq AD PRN PO; Start 01/07/25 at 10:30; Stop 01/07/25 at 10:12; Status DC Insulin Glargine 15 units Q12H SQ Last administered on 01/09/25at 13:10; Start 01/07/25 at 21:30; Stop 01/09/25 at 23:18; Status DC Insulin Glargine 10 units ONCE ONCE SQ Last administered on 01/07/25at 10:40; Start 01/07/25 at 10:30; Stop 01/07/25 at 10:31; Status DC Thiamine HCl 300 mg DAILY ONCE IVP Last administered on 01/07/25at 10:39; Start 01/07/25 at 10:30; Stop 01/07/25 at 10:31; Status DC Multivitamins Therapeutic 1 tab DAILY PO Last administered on 01/31/25at 08:36; Start 01/07/25 at 10:30; Stop 02/06/25 at 10:29 Folic Acid 1 mg DAILY PO Last administered on 01/31/25at 08:36; Start 01/07/25 at 10:30; Stop 02/06/25 at 10:29 Triamcinolone Acetonide 1 APPLY TP BID BID TP Last administered on 01/30/25at 20:43; Start 01/07/25 at 11:00; Stop 02/06/25 at 10:59 Vancomycin HCl 1 each AD IV; Start 01/07/25 at 12:30; Stop 01/07/25 at 12:40; Status DC Cefazolin Sodium 2 gm Q12H IVPB Last administered on 01/16/25at 01:12; Start 01/07/25 at 13:30; Stop 01/16/25 at 14:43; Status DC Furosemide 20 mg Q12H IV Last administered on 01/10/25at 19:40; Start 01/07/25 at 16:00; Stop 01/11/25 at 00:56; Status DC Calcium Gluconate 1 gm/Sodium Chloride 100 ml @ 0 mls/hr AD PRN IV Last administered on 01/08/25at 23:32; Start 01/08/25 at 02:30; Stop 02/07/25 at 02:29 Dexamethasone Sodium Phosphate 20 mg/Sodium Chloride 52 ml @ 100 mls/hr DAILY IV Last administered on 01/27/25at 09:16; Start 01/09/25 at 09:00; Stop 01/27/25 at 19:04; Status DC Insulin Glargine 20 units Q12H SQ; Start 01/10/25 at 09:30; Stop 01/10/25 at 12:58; Status DC Lactated Ringer's 1,000 ml @ 125 mls/hr Q8H IV Last administered on 01/10/25at 13:07; Start 01/10/25 at 01:30; Stop 01/10/25 at 19:40; Status DC Lactated Ringer's 1,000 ml BOLUS ONCE IV Last administered on 01/10/25at 09:20; Start 01/10/25 at 07:30; Stop 01/10/25 at 07:31; Status DC Lidocaine HCl 100 mg STK-MED ONCE .ROUTE; Start 01/10/25 at 08:01; Stop 01/10/25 at 08:02; Status DC Propofol 200 mg STK-MED ONCE IV; Start 01/10/25 at 08:02; Stop 01/10/25 at 08:02; Status DC Glycopyrrolate 1 mg STK-MED ONCE .ROUTE; Start 01/10/25 at 08:02; Stop 01/10/25 at 08:02; Status DC Ketamine HCl 50 mg STK-MED ONCE .ROUTE; Start 01/10/25 at 08:03; Stop 01/10/25 at 08:03; Status DC Insulin Glargine 25 units Q12H SQ Last administered on 01/10/25at 22:19; Start 01/10/25 at 21:30; Stop 01/11/25 at 00:50; Status DC Insulin Human Regular INSULIN SLIDING SCAL... Q6H6 SQ Last administered on 01/11/25at 00:45; Start 01/10/25 at 18:00; Stop 01/11/25 at 00:50; Status DC Insulin Glargine 30 units Q12H SQ Last administered on 01/11/25at 10:50; Start 01/11/25 at 09:30; Stop 01/11/25 at 20:13; Status DC Insulin Human Regular INSULIN SLIDING SCAL... Q4H SQ Last administered on 01/11/25at 20:49; Start 01/11/25 at 02:00; Stop 01/11/25 at 23:59; Status DC Sodium Chloride 1,000 ml @ 75 mls/hr [id number] IV Last administered on 01/11/25at 01:00; Start 01/11/25 at 01:00; Stop 01/11/25 at 13:45; Status DC Sodium Bicarbonate 1,300 mg BID PO Last administered on 01/30/25at 08:58; Start 01/11/25 at 09:00; Stop 01/30/25 at 09:19; Status DC Insulin Human Regular 8 unit TIDAC SQ Last administered on 01/13/25at 19:47; Start 01/11/25 at 07:30; Stop 01/14/25 at 07:03; Status DC Lidocaine HCl 100 mg STK-MED ONCE .ROUTE; Start 01/11/25 at 07:00; Stop 01/11/25 at 07:00; Status DC Atropine Sulfate 1 mg STK-MED ONCE IVP; Start 01/11/25 at 07:00; Stop 01/11/25 at 07:00; Status DC Propofol 200 mg STK-MED ONCE IV; Start 01/11/25 at 07:00; Stop 01/11/25 at 07:00; Status DC Succinylcholine Chloride 200 mg STK-MED ONCE .ROUTE; Start 01/11/25 at 07:00; Stop 01/11/25 at 07:00; Status DC Ketamine HCl 50 mg STK-MED ONCE .ROUTE; Start 01/11/25 at 07:00; Stop 01/11/25 at 07:01; Status DC Glycopyrrolate 1 mg STK-MED ONCE .ROUTE; Start 01/11/25 at 07:01; Stop 01/11/25 at 07:01; Status DC Sodium Chloride 10 ml STK-MED ONCE .ROUTE; Start 01/11/25 at 07:01; Stop 01/11/25 at 07:01; Status DC Phenylephrine HCl 10 mg STK-MED ONCE IV; Start 01/11/25 at 07:01; Stop 01/11/25 at 07:01; Status DC Midazolam HCl 2 mg STK-MED ONCE .ROUTE; Start 01/11/25 at 07:08; Stop 01/11/25 at 07:08; Status DC Ondansetron HCl 4 mg STK-MED ONCE .ROUTE; Start 01/11/25 at 07:34; Stop 01/11/25 at 07:35; Status DC Chlordiazepoxide HCl 25 mg Q8H PRN PO; Start 01/11/25 at 12:00; Stop 01/12/25 at 02:29; Status DC Heparin Sodium/ Dextrose 250 ml @ 0 mls/hr PROTOCOL IV Last administered on 01/17/25at 16:09; Start 01/11/25 at 14:30; Stop 01/18/25 at 13:28; Status DC Fluconazole 200 mg ONCE ONCE PO Last administered on 01/11/25at 15:18; Start 01/11/25 at 15:30; Stop 01/11/25 at 15:31; Status DC Fluconazole 200 mg DAILY PO Last administered on 01/25/25at 09:44; Start 01/12/25 at 09:00; Stop 01/25/25 at 16:12; Status DC Lactobacillus Rhamnosus 1 each DAILY PO Last administered on 01/31/25at 08:36; Start 01/12/25 at 09:00; Stop 02/11/25 at 08:59 Insulin Glargine 30 units DAILY SQ Last administered on 01/12/25at 11:25; Start 01/12/25 at 09:00; Stop 01/14/25 at 07:03; Status DC Insulin Human Regular INSULIN SLIDING SCAL... Q4H SQ Last administered on 01/18/25at 16:59; Start 01/11/25 at 23:59; Stop 01/18/25 at 19:33; Status DC Heparin Sodium (Porcine) 4,000 unit ONCE ONCE IV Last administered on 01/12/25at 22:36; Start 01/12/25 at 22:30; Stop 01/12/25 at 22:31; Status DC Iohexol 35,000 mg STK-MED ONCE IV; Start 01/13/25 at 12:56; Stop 01/13/25 at 12:57; Status DC Insulin Glargine 20 units DAILY SQ Last administered on 01/23/25at 09:41; Start 01/14/25 at 09:00; Stop 01/23/25 at 21:37; Status DC Insulin Human Regular 5 unit TIDAC SQ Last administered on 01/28/25at 16:50; Start 01/14/25 at 07:30; Stop 01/29/25 at 06:36; Status DC Aspirin 81 mg DAILY PO Last administered on 01/25/25at 09:45; Start 01/16/25 at 09:00; Stop 01/26/25 at 10:14; Status DC Pharmacy Profile Note 1 each ONCE MISC; Start 01/16/25 at 14:30; Stop 01/16/25 at 15:12; Status DC Dexamethasone Sodium Phosphate 10 mg STK-MED ONCE .ROUTE; Start 01/16/25 at 14:38; Stop 01/16/25 at 14:38; Status DC Dexamethasone Sodium Phosphate 10 mg STK-MED ONCE .ROUTE; Start 01/16/25 at 14:39; Stop 01/16/25 at 14:40; Status DC Cefazolin Sodium 2 gm Q8H IVPB Last administered on 01/17/25at 05:07; Start 01/16/25 at 21:30; Stop 01/17/25 at 13:22; Status DC Gentamicin Sulfate/Sodium Chloride 100 ml @ 200 mls/hr Q12H IV Last administered on 01/17/25at 16:00; Start 01/16/25 at 15:30; Stop 01/18/25 at 03:39; Status DC Acetaminophen 650 mg Q6H PRN PO Last administered on 01/31/25at 05:37; Start 01/16/25 at 17:30; Stop 02/15/25 at 17:29 Nafcillin Sodium 2 gm Q6H6 IV Last administered on 01/25/25at 12:18; Start 01/17/25 at 18:00; Stop 01/25/25 at 16:12; Status DC Melatonin 20 mg ONCE ONCE PO Last administered on 01/17/25at 22:00; Start 01/17/25 at 21:30; Stop 01/17/25 at 21:37; Status DC Gentamicin Sulfate/Sodium Chloride 100 ml @ 200 mls/hr Q12H IV Last administered on 01/20/25at 05:38; Start 01/18/25 at 04:00; Stop 01/20/25 at 06:41; Status DC Nystatin 100,000 UNITS 1 ML TO E... QID PO Last administered on 01/31/25at 17:12; Start 01/18/25 at 09:00; Stop 02/17/25 at 08:59 Apixaban 10 mg BID PO; Start 01/18/25 at 21:00; Stop 01/18/25 at 13:52; Status DC Apixaban 10 mg BID PO Last administered on 01/21/25at 08:45; Start 01/18/25 at 21:00; Stop 01/21/25 at 16:00; Status DC Apixaban 5 mg BID PO; Start 01/25/25 at 21:00; Stop 01/21/25 at 16:00; Status DC Insulin Human Regular INSULIN SLIDING SCAL... ACHS SQ Last administered on 01/28/25at 21:07; Start 01/18/25 at 21:00; Stop 01/28/25 at 22:15; Status DC Gentamicin Sulfate 150 mg/ Sodium Chloride 100 ml @ 100 mls/hr Q12H IV Last administered on 01/21/25at 16:00; Start 01/20/25 at 16:00; Stop 01/22/25 at 03:27; Status DC Iron Sucrose 300 mg Q24H IVP; Start 01/21/25 at 15:00; Stop 01/21/25 at 15:29; Status DC Iron Sucrose 300 mg/Sodium Chloride 250 ml @ 166.667 mls/hr Q24H IV; Start 01/21/25 at 16:00; Stop 01/21/25 at 17:22; Status DC Apixaban 5 mg BID PO Last administered on 01/22/25at 09:02; Start 01/21/25 at 21:00; Stop 01/23/25 at 10:57; Status DC Iron Sucrose 300 mg/Sodium Chloride 250 ml @ 166.667 mls/hr Q24H IV; Start 01/21/25 at 19:30; Stop 01/21/25 at 20:57; Status DC Iron Sucrose 300 mg/Sodium Chloride 250 ml @ 166.667 mls/hr Q24H IV Last administered on 01/23/25at 20:56; Start 01/21/25 at 21:00; Stop 01/23/25 at 22:29; Status DC Melatonin 10 mg HS PRN PO Last administered on 01/30/25at 22:24; Start 01/21/25 at 21:30; Stop 02/20/25 at 21:29 Gentamicin Sulfate 90 mg/ Sodium Chloride 50 ml @ 100 mls/hr Q8H IV; Start 01/22/25 at 03:30; Stop 01/22/25 at 03:30; Status DC Gentamicin Sulfate 90 mg/ Sodium Chloride 50 ml @ 100 mls/hr Q8H IV Last administered on 01/23/25at 12:54; Start 01/22/25 at 04:00; Stop 01/23/25 at 20:03; Status DC Apixaban 5 mg BID PO Last administered on 01/27/25at 09:01; Start 01/23/25 at 21:00; Stop 01/27/25 at 10:16; Status DC Tramadol HCl 50 mg ONCE ONCE PO Last administered on 01/23/25at 18:44; Start 01/23/25 at 19:00; Stop 01/23/25 at 19:01; Status DC Gentamicin Sulfate/Sodium Chloride 100 ml @ 200 mls/hr BID@0600,1800 IV Last administered on 01/25/25at 05:48; Start 01/24/25 at 06:00; Stop 01/25/25 at 16:12; Status DC Insulin Glargine 15 units DAILY SQ Last administered on 01/31/25at 08:57; Start 01/24/25 at 09:00; Stop 02/23/25 at 08:59 Acetaminophen/ Hydrocodone Bitart 1 tab ONCE ONCE PO Last administered on 01/24/25at 02:51; Start 01/24/25 at 02:30; Stop 01/24/25 at 02:33; Status DC Pharmacy Profile Note 1 each ONCE MISC; Start 01/25/25 at 07:30; Stop 01/25/25 at 07:26; Status DC Furosemide 20 mg BIDPC IV Last administered on 01/26/25at 18:06; Start 01/25/25 at 10:00; Stop 01/26/25 at 18:01; Status DC Lidocaine 1 patch DAILY TP Last administered on 01/31/25at 08:55; Start 01/25/25 at 12:00; Stop 02/24/25 at 11:59 Pharmacy Profile Note 1 each ONCE MISC; Start 01/25/25 at 16:30; Stop 01/25/25 at 16:12; Status DC Linezolid 300 ml @ 300 mls/hr Q12H IV Last administered on 01/31/25at 09:39; Start 01/25/25 at 20:30; Stop 02/04/25 at 20:29 Pantoprazole Sodium 40 mg Q24H IVP Last administered on 01/31/25at 04:08; Start 01/26/25 at 04:30; Stop 02/25/25 at 04:29 Iohexol 35,000 mg STK-MED ONCE IV; Start 01/26/25 at 16:37; Stop 01/26/25 at 16:37; Status DC Dexamethasone Sodium Phosphate 10 mg/Sodium Chloride 51 ml @ 100 mls/hr DAILY IV Last administered on 01/28/25at 13:03; Start 01/28/25 at 09:00; Stop 01/29/25 at 10:57; Status DC Insulin Human Regular INSULIN SLIDING SCAL... ACHS SQ Last administered on 01/31/25at 17:08; Start 01/29/25 at 07:30; Stop 02/28/25 at 07:29 Insulin Human Regular 7 unit TIDAC SQ Last administered on 01/31/25at 17:10; Start 01/29/25 at 07:30; Stop 02/28/25 at 07:29 Ipratropium Fritch 0.5 MG Q6H PRN IH; Start 01/29/25 at 11:00; Stop 02/28/25 at 10:59 Dexamethasone Sodium Phosphate 10 mg DAILY IVP Last administered on 01/31/25at 08:36; Start 01/29/25 at 11:00; Stop 02/28/25 at 10:59 Furosemide 40 mg DAILY PO Last administered on 01/31/25at 08:38; Start 01/30/25 at 11:35; Stop 03/01/25 at 11:34 Benzonatate 100 mg Q8H PRN PO Last administered on 01/31/25at 05:37; Start 01/30/25 at 15:00; Stop 02/09/25 at 12:00 Guaifenesin/ Dextromethorphan 5 ml Q6H PRN PO; Start 01/30/25 at 15:00; Stop 02/08/25 at 12:00 MAITE RESTREPO MD 4, 2025 21:07
--- NOTE | 2025-01-31 23:27 | DS ---
Discharge Summary Hospital Course Summary: Initial presentation: The patient presented with high-grade fever, malaise, dyspnea and altered mental status. Initial workup relieved positive blood cultures for staph aureus and Klebsiella pneumoniae on urine culture, aortic valve vegetation on OLEGARIO, thrombocytopenia and significant metabolic derangement secondary to DKA. Hospital course: Cardiology: Olegario confirmed 1.8 in 21.1 cm vegetation on the noncoronary cusp of the aortic valve. Right ventricular dilation and left atrial appendage clot were noted. CT surgery recommended continue medical management with consideration of aortic valve replacement if blood cultures remained negative. Infectious Disease aspect the patient was started on IV vancomycin and broad- spectrum antibiotics, later adjusted to IV linezolid for outpatient therapy. Blood cultures initially grew staph aureus and urine culture grew Klebsiella pneumoniae. But later cleared. Endocrinology: The patient had uncontrolled diabetes with a DKA, which resolved with IV insulin and fluids. Transitioned to subcutaneous insulin. Nephrology: Patient developed BRENDAN on CKD, likely secondary to sepsis and volume depletion and diabetic nephropathy. Managed with IV fluids and electrolyte correction, with improvement in creatinine Hematology: Severe thrombocytopenia managed with dexamethasone and platelet transfusions. Platelet count improved gradually. The patient is being discharged for continued outpatient IV antibiotics. Case management has arranged for IV antibiotic administration at wound care services and at [facility] urgent Care facility. Transfer Car Operator(s): LOAN CLOSER(S) : Infectious Disease, Nephrology, Endocrinology, Cardiology, Pulmonary and critical Care, Hematology and Oncology, Gastroenterology Primary care physician : Self-referral Admitting : Arvind Noland MD Attending : Benoit Martinez MD Procedure(s): PATIENT: ADAM MOE III MR#: [id number] : 1980 SEX: M AGE: 44 LOCATION: [facility] ORDER 2300 STATUS: ADM IN REPORT#: [id number] SERVICE 0600 REASON: Worsening respiratory status ORDERING PHYSICIAN: ARMANDO OTT MD PROCEDURE: CXR1VW - CHEST 1VW PORTABLE CHEST RADIOGRAPH INDICATION: Worsening respiratory status COMPARISON: 01/30/2025 at 1509 hours FINDINGS/IMPRESSION: Tip of left PICC within the SVC. Stable normal heart size without pulmonary vascular congestion. Worsening right lung opacities compatible with pneumonia and suspect new subtle left lower lung opacities, but no evidence for pneumothorax. DICTATED BY: KIARA PETERSON MD DATE: 01/31/25 1008 ELECTRONICALLY SIGNED BY: KIARA PETERSON MD DATE: 01/31/25 1011 PATIENT: ADAM MOE III MR#: [id number] : 1980 SEX: M AGE: 44 LOCATION: [facility] ORDER 1428 STATUS: ADM IN REPORT#: [id number] SERVICE 1421 REASON: Worsening respiratory status ORDERING PHYSICIAN: ARMANDO OTT MD PROCEDURE: CXR1VW - CHEST 1VW CHEST 1VW HISTORY: Worsening of respiratory status COMPARISON: None FINDINGS: A frontal projection of the chest was obtained. Mild bilateral pulmonary infiltrates are seen. The heart is borderline enlarged. Degenerative changes are seen. No evidence of aortic calcification is seen. IMPRESSION: 1. Mild bilateral pulmonary infiltrates. DICTATED BY: CAROL HOWARD MD DATE: 01/30/25 1540 ELECTRONICALLY SIGNED BY: CAROL HOWARD MD DATE: 01/30/25 1543 PATIENT: ADAM MOE III MR#: [id number] : 1980 SEX: M AGE: 44 LOCATION: [facility] ORDER 1408 STATUS: ADM IN REPORT#: [id number] SERVICE 1406 REASON: TO RULE OUT PE ORDERING PHYSICIAN: PRATEEK VALENZUELA PROCEDURE: [facility] PE - CT CHEST PE PROTOCOL WWO CONT CT ANGIOGRAM OF THE CHEST WITHOUT AND WITH CONTRAST. CT RECONSTRUCTIONS INDICATION: Pulmonary embolism evaluation TECHNIQUE: Routine axial images using 3 mm slice thickness were acquired from the lung apices to the bases before and after the intravenous administration of 100 mL of Omnipaque 350 contrast material using the pulmonary embolism protocol. Maximum Intensity Projection imaging in the sagittal and coronal planes were also provided. CT was performed with one or more of the following dose reduction techniques: Automated exposure control, adjustment of the mA and/or kV according to patient size, or use of iterative reconstruction technique. COMPARISON: None FINDINGS: Examination provided for interpretation at 8:20 PM on 01/26/2025. The contrast bolus is of good quality for diagnosis of pulmonary embolism. The heart size is within normal limits without pericardial effusion. The main pulmonary arteries, segmental branches, and visualized subsegmental pulmonary arteries appear normal without intraluminal filling defects. Pulmonary trunk is not enlarged. No evidence for thoracic aortic aneurysm or dissection. The origins of the great vessels and thoracic aorta appear normal. The visible portions of the trachea and airways are patent. Right greater than left lower lobe opacities. No axillary, hilar, or mediastinal lymphadenopathy detected. Several calcific gallstones. Visible osseous structures are intact. IMPRESSION: Evolving right greater than left lower lobe pneumonia, without evidence for pulmonary embolism. Cholelithiasis. DICTATED BY: KIARA PETERSON MD DATE: 01/26/252023 ELECTRONICALLY SIGNED BY: KIARA PETERSON MD DATE: 01/26/252027 PATIENT: ADAM MOE III MR#: [id number] : 1980 SEX: M AGE: 44 LOCATION: [facility] ORDER 0808 STATUS: ADM IN REPORT#: [id number] SERVICE 0808 REASON: EPISODE OF HEMOPTYSIS ORDERING PHYSICIAN: HILDA MUIR PROCEDURE: CXR1VW - CHEST 1VW CHEST 1VW HISTORY: Hemoptysis COMPARISON: 01/24/2025 FINDINGS: A frontal projection of the chest was obtained. Mild bilateral pulmonary infiltrates are seen may be related to mild pulmonary vascular congestion with possible superimposed pneumonitis. The heart is borderline enlarged. Degenerative changes are seen. No evidence of aortic calcification is seen. IMPRESSION: 1. Mild bilateral pulmonary infiltrates are seen may be related to mild pulmonary vascular congestion with possible superimposed pneumonitis. PATIENT: ADAM MOE III MR#: [id number] : 1980 SEX: M AGE: 44 LOCATION: [facility] ORDER 1320 STATUS: ADM IN REPORT#: [id number] SERVICE 1319 REASON: picc line placement verification ORDERING PHYSICIAN: ARVIND NOLAND MD PROCEDURE: CXR1VW - CHEST 1VW CHEST 1VW HISTORY: PICC line placement COMPARISON: None FINDINGS: A frontal projection of the chest was obtained. There are bilateral pulmonary infiltrates suggestive of pulmonary vascular congestion with possible superimposed pneumonitis. The heart is borderline enlarged. PICC line is seen entering from the left with distal tip in the plane of the superior vena cava. No evidence of aortic calcification is seen. IMPRESSION: 1. Bilateral pulmonary infiltrates are seen suggestive of pulmonary vascular congestion with possible superimposed pneumonitis. DICTATED BY: CAROL HOWARD MD DATE: 01/24/251451 ELECTRONICALLY SIGNED BY: CAROL HOWARD MD DATE: 01/24/251455 PATIENT: ADAM MOE III MR#: [id number] : 1980 SEX: M AGE: 44 LOCATION: [facility] ORDER 1 STATUS: ADM IN REPORT#: [id number] SERVICE 6 REASON: rule out dvt ORDERING PHYSICIAN: AMANDA TOLEDOP PROCEDURE: VENOUS UNI - US VENOUS DOPPLER UNILATERAL US VENOUS DOPPLER UNILATERAL HISTORY: Deep venous thrombosis COMPARISON: None TECHNIQUE: Right upper extremity venous Doppler ultrasound study was performed. FINDINGS: The right subclavian, axillary, and brachial veins are visualized. Normal flow with augmentation and compressibilities are demonstrated. Right basilic vein is patent. Noncompressible thrombus is seen in the right cephalic vein consistent with superficial thrombophlebitis. IMPRESSION: 1. Noncompressible thrombus is seen in the right cephalic vein consistent with superficial thrombophlebitis. DICTATED BY: CAROL HOWARD MD DATE: 01/24/2542 ELECTRONICALLY SIGNED BY: CAROL HOWARD MD DATE: 01/24/25 0849 PATIENT: ADAM MOE III MR#: [id number] : 1980 SEX: M AGE: 44 LOCATION: [facility] ORDER 37 STATUS: ADM IN REPORT#: [id number] SERVICE 35 REASON: NUMBNESS ORDERING PHYSICIAN: AMANDA TOLEDO BANKING PIN ADJUSTER PROCEDURE: ART U UE - US ARTERIAL UNILA UPP EXT DUPL US ARTERIAL UNILA UPP EXT DUPL HISTORY: Right arm pain COMPARISON: None TECHNIQUE: Right upper extremity arterial Doppler ultrasound study was performed. FINDINGS: Normal triphasic arterial waveforms are noted in the subclavian, axillary, brachial, radial and ulna arteries bilaterally. On the right, the peak systolic velocity of the subclavian artery is 202 cm/s, the axillary artery is 102 cm/s, the brachial artery is 123 cm/s, the radial artery is 98 cm/s, and the ulnar artery is 91 cm/s. IMPRESSION: 1. Atherosclerotic disease. 2. Otherwise normal triphasic arterial waveforms noted of the right upper extremity artery system. DICTATED BY: CAROL HOWARD MD DATE: 01/23/252350 ELECTRONICALLY SIGNED BY: CAROL HOWARD MD DATE: 01/23/25 235 PATIENT: ADAM MOE III MR#: [id number] : 1980 SEX: M AGE: 44 LOCATION: [facility] ORDER 1056 STATUS: ADM IN HOSPITAL REPORT#: [id number] SERVICE 1028 REASON: DVT ORDERING PHYSICIAN: KARMA LUNDBERG MD PROCEDURE: VENOUS UNI - US VENOUS DOPPLER UNILATERAL US VENOUS DOPPLER UNILATERAL HISTORY: Swelling COMPARISON: 01/18/2025 TECHNIQUE: Left lower extremity venous Doppler ultrasound study was performed. FINDINGS: The left common femoral, femoral, popliteal, and posterior tibial veins are visualized. Normal flow with augmentation and compressibilities are demonstrated. Left greater saphenous vein is patent. There is left Matthews's cyst measuring 5.7 x 2 x 3.1 cm. IMPRESSION: 1. No evidence of deep venous thrombosis is seen. DICTATED BY: CAROL HOWARD MD DATE: 01/23/25 161 ELECTRONICALLY SIGNED BY: CAROL HOWARD MD DATE: 01/23/25 161 PATIENT: ADAM MOE III MR#: [id number] : 1980 SEX: M AGE: 44 LOCATION: [facility] ORDER 1056 STATUS: ADM IN REPORT#: [id number] SERVICE 1028 REASON: Follow up for aortic valve endocarditis ORDERING PHYSICIAN: KARMA LUNDBERG MD PROCEDURE: ECHO FU LD - ECHO 2-D /U-LTD APPROVED REPORT EXAM: Limited two-dimensional echocardiogram INDICATION ICD: Follow up for aortic valve endocarditis Left Ventricle Left ventricular cavity size is normal. There is normal LV segmental wall motion. There is mild left ventricular wall thickness. LVEF is 60-65%. Not assessed. Atria Appears dilated. Aortic Valve Aortic valve is trileaflet and opens well. Non coronary cusp leaflet vegetation currently measures 0.8cm x 1.15cm with a traced area of 0.9cm. Vegetation previously measured a week ago 1.81cm x1.17cm. Mitral Valve Mitral valve leaflets appear normal. No mitral valve vegetation noted. Tricuspid Valve The tricuspid valve leaflets appear normal. No tricuspid valve vegetation. Pericardium No pericardial effusion. Other Information Quality : Adequate, pt complaining of right arm upper arm pain. Conclusion Limited echo. Left ventricular cavity size is normal. LVEF is 60-65% with normal LV segmental wall motion. Non coronary cusp leaflet vegetation currently measures 0.8cm x 1.15cm with a traced area of 0.9cm (relatively unchanged) No pericardial effusion. DICTATED BY: HEATHER HILARIO MD DATE: 01/23/25 175 ELECTRONICALLY SIGNED BY: HEATHER HILARIO MD DATE: 01/24/25 0739 PATIENT: ADAM MOE III MR#: [id number] : 1980 SEX: M AGE: 44 LOCATION: [facility] ORDER STATUS: ADM IN REPORT#: [id number] SERVICE 1617 REASON: extensive bruising ORDERING PHYSICIAN: HAMZAH CURIEL PROCEDURE: SOFT LOW E - US SOFT TISSUE LOWER EXTREMITY US SOFT TISSUE LOWER EXTREMITY REASON: extensive bruising. COMPARISON: None TECHNIQUE: Left calf ultrasound study was performed. FINDINGS: Soft tissue swelling is seen. No mass lesion or abnormal fluid collection is seen. IMPRESSION: Left calf soft tissue swelling. PATIENT: ADAM MOE III MR#: [id number] : 1980 SEX: M AGE: 44 LOCATION: [facility] ORDER 0805 STATUS: ADM IN REPORT#: [id number] SERVICE 0804 REASON: lle edeam ORDERING PHYSICIAN: ANNA HILARIO MD PROCEDURE: VENOUS UNI - US VENOUS DOPPLER UNILATERAL US VENOUS DOPPLER UNILATERAL REASON: lle edeam COMPARISON: None Technique: Left venous doppler ultrasound was performed with spectral analysis and color flow imaging technique. FINDINGS: There is a normal appearance of the common femoral, deep femoral, the profunda femoris and popliteal veins. Proximal calf veins appear normal as well. There is normal response to compression and augmentation. There is no evidence of deep venous thrombosis. IMPRESSION: 1. No evidence of deep venous thrombosis in the left lower extremity. 2. There is a small Matthews cyst behind the left knee, 1.7 x 2.6 cm. DICTATED BY: CHRISTI PEMBERTON MD DATE: 01/18/25 150 ELECTRONICALLY SIGNED BY: CHRISTI PEMBERTON MD DATE: 01/18/25 1511 PATIENT: ADAM MOE III MR#: [id number] : 1980 SEX: M AGE: 44 LOCATION: [facility] ORDER 0551 STATUS: ADM IN REPORT#: [id number] SERVICE 0900 REASON: Endocarditis ORDERING PHYSICIAN: GUERA STANLEY MD PROCEDURE: HEAD WWO - CT HEAD/BRAIN W/WO CONTRAST CT HEAD/BRAIN W/WO CONTRAST HISTORY: Endocarditis COMPARISON: None TECHNIQUE: Multiple sequential axial images of the head were obtained from the base of the skull through vertex. Patient was given 50 cc of Omnipaque through intravenous route. FINDINGS: The ventricles and extraventricular CSF spaces are nondilated for patient's age. There is no midline shift, mass effect or herniation. No acute intracranial bleed is seen. Visualized portion of the paranasal sinuses are grossly within normal limits. No abnormal enhancement is seen. IMPRESSION: 1. No acute intracranial bleed is seen. No abnormal enhancement is seen. CT was performed with one or more following dose reduction techniques: automated exposure control, adjustment of the mA and kv according to patient's size, or use of a iterative reconstruction technique. DICTATED BY: CAROL HOWARD MD DATE: 01/13/251339 ELECTRONICALLY SIGNED BY: CAROL HOWARD MD DATE: 01/13/25 134 PATIENT: ADAM MOE III MR#: [id number] : 1980 SEX: M AGE: 44 LOCATION: [facility] ORDER 0551 [facility]PORT#: [id number] SERVICE 0900 REASON: Endocarditis ORDERING PHYSICIAN: GUERA STANLEY MD PROCEDURE: CHEST WWO - CT CHEST W/WO CONTRAST CT CHEST W/WO CONTRAST HISTORY: Endocarditis COMPARISON: None TECHNIQUE: Multiple sequential axial images of the chest were obtained from the thoracic inlet through upper abdomen. Patient was given 50 cc of Omnipaque through intravenous route. FINDINGS: There is no evidence of pulmonary nodule or parenchymal disease. There are bibasilar linear atelectasis. There are motion artifacts degrading the image quality. A small hiatal hernia is seen. No pleural effusion or pericardial effusion is seen. There is no evidence of pneumothorax. There are normal size mediastinal and hilar lymph nodes. The heart is not enlarged. Coronary arterial calcifications are seen. Degenerative changes of the thoracolumbar spine are present. There is no evidence of adrenal nodule. IMPRESSION: 1. No evidence of pulmonary nodule or effusion is seen. Bibasilar linear atelectasis. CT was performed with one or more following dose reduction techniques: automated exposure control, adjustment of the mA and kv according to patient's size, or use of a iterative reconstruction technique. DICTATED BY: CAROL HOWARD MD DATE: 01/13/251341 ELECTRONICALLY SIGNED BY: CAROL HOWARD MD DATE: 01/13/[address] [address] IMAGING REPORT Signed PATIENT: ADAM MOE III MR#: [id number] : 1980 SEX: M AGE: 44 LOCATION: [facility] ORDER 0751 STATUS: ADM IN REPORT#: [id number] SERVICE REASON: ASSESS for endorcarditis ORDERING PHYSICIAN: ANNA HILARIO MD PROCEDURE: ECHO OLEGARIO - ECHO OLEGARIO--TRANSESOPHAGEAL APPROVED REPORT EXAM: Transesophageal echocardiogram with color flow Doppler. INDICATION ICD: Endocarditis Reason For Test : Rule out endocarditis. PROCEDURE After obtaining informed consent, patient underwent transesophageal echo in the GI LAB Type of Sedation: General Anesthesia Sedation was administered by Please refer to medication administration record. . Sedation was achieved with Please refer to medication administration record. intravenously. Transesophageal probe was inserted and advanced into esophagus without difficulty by Anna Hilario MD. OLEGARIO was performed and images were obtained, probe was removed without complications. Throughout the procedure, the blood pressure, pulse oximetry, cardiac rhythm, and rate were monitored. Left Ventricle Left ventricular cavity is normal. There is mild asymetrical left ventricular wall thickness. LVEF is 60-65%. No left ventricle thrombus noted on this study. Right Ventricle The right ventricle is severely dilated. The right ventricular systolic function is normal. Atria Left atrial appendage clot present. The left atrium size is normal. There is no mass or thrombus suspected in the left atrium. No evidence of PFO/ASD by color doppler. The right atrium size is normal. There is no mass or thrombus suspected in the right atrium. Aortic Valve Aortic valve is trileaflet and open well. Non coronary cusp leaflet has vegetation that measures 1.81cm x 1.17cm. No aortic regurgitation is present. There is no aortic valvular stenosis. Mitral Valve The mitral valve is normal in structure and function. There is mild mitral valve regurgitation noted. No mitral valve vegetation. There is no mitral valve stenosis. Tricuspid Valve The tricuspid valve is normal in structure and function. There is no tricuspid valve regurgitation noted. No tricuspid valve vegetation. Pulmonic Valve The pulmonary valve is normal in structure and function. There is no pulmonic valvular regurgitation. No pulmonic valve vegetation. Great Vessels The aortic root is normal in size. Ascending aorta appers normal in size. Descending aorta appears normal in size. Pericardium The pericardium appears normal. Conclusion Left ventricular cavity is normal. There is mild asymetrical left ventricular wall thickness. LVEF is 60-65%. No left ventricle thrombus noted on this study. The right ventricle is severely dilated. The right ventricular systolic function is normal. Left atrial appendage clot present. The left atrium size is normal. There is no mass or thrombus suspected in the left atrium. The right atrium size is normal. There is no mass or thrombus suspected in the right atrium. No evidence of PFO/ASD by color doppler. Aortic valve is trileaflet and open well. Non coronary cusp leaflet has vegetation that measures 1.81cm x 1.17cm. No aortic regurgitation is present. There is no aortic valvular stenosis. There is mild mitral valve regurgitation noted. No mitral valve vegetation. No tricuspid valve vegetation. No pulmonic valve vegetation. PATIENT: ADAM MOE III MR#: [id number] : 1980 SEX: M AGE: 44 LOCATION: [facility] [place] ORDER 16 STATUS: ADM IN REPORT#: [id number] SERVICE 1614 REASON: eval gallbladder, cholecystitis. ORDERING PHYSICIAN: HANNAH CARTER MD PROCEDURE: ABDOMEN - US ABDOMINAL COMPLETE ULTRASOUND ABDOMEN COMPLETE INDICATION: Abdominal Pain COMPARISON: 01/05/2025 CT abdomen and pelvis. FINDINGS: The liver is enlarged and increased in echogenicity; no focal lesion demonstrated. Length is measured at 21.6 cm Main portal vein is patent, and normal direction of vascular flow demonstrated. The common bile duct caliber measures 4.0 mm. Echogenic shadowing gallstones without associated pericholecystic fluid. No sonographic Dominguez's sign elicited by the ultrasound wax machine operator. Wall thickness measures 2.0 mm. The spleen is normal in size and echotexture. The spleen measures 9.8 cm. Visible portions of the pancreas appear unremarkable. The right kidney measures 12.6 x 6.3 x 6.6 cm,and is normal in echogenicity, without evidence for hydronephrosis or shadowing stones. The left kidney measures 12.8 x 8.1 x 6.0 cm,and is normal in echogenicity, without evidence for hydronephrosis or shadowing stones. Visible portions of the abdominal aorta are within normal limits. Visible portions of the inferior vena cava are within normal limits. No free fluid demonstrated. IMPRESSION: Cholelithiasis without sonographic evidence for cholecystitis. Findings suggesting hepatomegaly and hepatic steatosis or other underlying hepatocellular disease process. DICTATED BY: KIARA PETERSON MD DATE: 01/08/25 0955 ELECTRONICALLY SIGNED BY: KIARA PETERSON MD DATE: 01/08/25 1000 PATIENT: ADAM MOE III MR#: [id number] : 1980 SEX: M AGE: 44 LOCATION: [facility] ORDER 1548 STATUS: ADM IN REPORT#: [id number] SERVICE 1546 REASON: sob ORDERING PHYSICIAN: KARMA LUNDBERG MD PROCEDURE: CXR1VW - CHEST 1VW PORTABLE CHEST RADIOGRAPH INDICATION: sob COMPARISON: 01/04/2025 FINDINGS: registered nurse ambulatory leads overlie the field of view. Heart size is normal. The pulmonary vascularity and jimmie appear normal. No abnormal pulmonary parenchymal opacity or consolidation identified. No significant pleural effusion noted. No pneumothorax detected. IMPRESSION: No radiographic evidence for any acute cardiopulmonary process. DICTATED BY: KIARA PETERSON MD DATE: 01/08/25 1028 ELECTRONICALLY SIGNED BY: KIARA PETERSON MD DATE: 01/08/25 1030 PATIENT: ADAM MOE III MR#: [id number] : 1980 SEX: M AGE: 44 LOCATION: [facility] ORDER 0910 STATUS: ADM IN REPORT#: [id number] SERVICE 1207 REASON: rule out acute cholecystitis ORDERING PHYSICIAN: MAHOGANY CARBAJAL MD PROCEDURE: HIDAWO - NM HIDA WO EF/CCK NM HIDA WO EF/CCK: 01/06/2025 12:07 PM [employer]ICAL INDICATION: Right upper quadrant pain. COMPARISON: None. TECHNIQUE: Injected Dose: 7 mCi Tc-99m mebrofenin Initial dynamic images: 60 minutes Post-treatment: None. Additional images: 2 hour delay. FINDINGS: Normal hepatic transit time. Prompt excretion into the small bowel. There is no excretion into the gallbladder. . IMPRESSION: Acute cholecystitis. DICTATED BY: HANK AVILA DO DATE: 01/07/251401 ELECTRONICALLY SIGNED BY: HANK AVILA DO DATE: 01/07/251406 Signed PATIENT: ADAM MOE III MR#: [id number] : 1980 SEX: M AGE: 44 LOCATION: [facility] ORDER 1257 STATUS: ADM IN REPORT#: [id number] SERVICE 1255 REASON: positive troponin ORDERING PHYSICIAN: MAHOGANY CARBAJAL MD PROCEDURE: ECHO CMP - ECHO 2-D COMPLETE APPROVED REPORT EXAM: Two-dimensional and M-mode echocardiogram with Doppler and color Doppler. Study Details: Pt states fevers INDICATION ICD: Positive troponin 2D Dimensions RVDd 3.9 cm LVEF(%) 51.2 (>50%) LVED Vol(simp.) 87.0 mL IVSd 0.8 (0.7-1.1cm) FS(%) 26 % LVES Vol(simp.) 35.0 mL LVDd 5.3 (3.8-5.6cm) LA (2D) 4.2 (1.6-4.0cm) LVEF(%, simp.) 60 % PWd 1.3 (0.7-1.1cm) Ao Root(2D) 3.5 (2.0-3.7cm) LA ESV INDEX (4CH) 21.50 mL/m2 IVSs 1.0 cm LVOT diam 2.4 (1.8-2.4cm) LA ESV INDEX (2CH) 19.20 mL/m2 LVDs 3.9 (2.5-4.0cm) IVC diam 2.5 cm LA ESV INDEX (BP) 20.35 mL/m2 PWs 1.6 cm Deformation Strain Apical 4 -16.0 % Apical 2 -12.0 % Apical 3 -10.0 % Global Strain -13.0 % M-Mode Dimensions EPSS 0.6 cm LA (MM) 4.3 (1.6-4.0cm) Ao Root(MM) 3.8 (2.0-3.7cm) Aortic Valve AoV VTI 0.2 m Ao Mean GR 5.0 mmHg LVOT VTI 0.20 m JEANNE (VMAX) 3.9 cm2 JEANNE (VTI) 3.9 cm2 Mitral Valve MV E Vmax 117.5 cm/s DECEL Time 151 ms MV Mean GR 4 mmHg MV A Vmax 50.8 cm/s P 1/2 T 58 ms MVA (VTI) 2.7 cm2 E/A ratio 2.3 MVA (PHT) 3.8 cm2 TDI E/E' Medial 22.6 E/E' Lateral 19.6 Medial E' Peak V 5.20 cm/s Lateral E' Peak V 6.00 cm/s Pulmonary Valve PV VTI 0.15 m PV Mean GR 2 mmHg Tricuspid Valve RAP (EST) 8 mmHg RVSP 8.0 mmHg Left Ventricle The left ventricle is normal size. The There is normal left ventricular wall thickness. LVEF is 60-65%. Indeterminate diastolic dysfunction. Right Ventricle The right ventricle is normal size. The right ventricular systolic function is normal. Atria The left atrium size is normal. The right atrium size is normal. Aortic Valve The aortic valve is trileaflet and opens well. Right coronary cusp leaflet appears to have a vegeration. No aortic regurgitation is present. There is no aortic valvular stenosis. Mitral Valve The mitral valve is normal in structure. There is no mitral valve regurgitation noted. There is no mitral valve stenosis. Tricuspid Valve The tricuspid valve is normal in structure. There is no tricuspid valve regurgitation noted. Pulmonic Valve The pulmonary valve is normal in structure. There is no pulmonic valvular regurgitation. Great Vessels The aortic root is normal in size. IVC is dilated and collapses >50% with inspiration. Pericardium There is no pericardial effusion. Other Information Quality : Adequate Conclusion The left ventricle is normal size. LVEF is 60-65%. Indeterminate diastolic dysfunction. The right ventricle is normal size. The right ventricular systolic function is normal. The left atrium size is normal. The right atrium size is normal. The aortic valve is trileaflet and opens well. Right coronary cusp leaflet appears to have a vegeration. IVC is dilated and collapses >50% with inspiration. There is no pericardial effusion. PATIENT: ADAM MOE III MR#: [id number] : 1980 SEX: M AGE: 44 LOCATION: [facility] ORDER 0956 STATUS: ADM IN REPORT#: [id number] SERVICE 0955 REASON: renal failure ORDERING PHYSICIAN: MAHOGANY CARBAJAL MD PROCEDURE: RENAL - US RENAL SONOGRAM Exam Type: US RENAL SONOGRAM Clinical Information: renal failure Comparison: None Findings: Examination shows normal renal size and echogenicity bilaterally. Preserved cortical thickness and corticomedullary junction region is seen. No hydronephrosis or calculi are seen. No renal masses are seen. There is no evidence of perinephric fluid on either side. No evidence of significant ureteral dilatation is seen. The right kidney measures 12.8 x 5.5 cm. The left kidney measures 12.9 x 6 cm. The urinary bladder is normal. No bladder masses, stones, or wall thickening is seen. Incidentally there is evidence of cholelithiasis. IMPRESSION: Normal renal anatomy bilaterally. DICTATED BY: JANIE JOHNSON MD DATE: 01/05/251240 ELECTRONICALLY SIGNED BY: JANIE JOHNSON MD DATE: 01/05/251246 PATIENT: ADAM MOE III MR#: [id number] : 1980 SEX: M AGE: 44 LOCATION: [facility] ORDER 0049 STATUS: ADM IN REPORT#: [id number] SERVICE 0048 REASON: severe sepsis uti- evaluate for hydronephrosis /pyelonephritis ORDERING PHYSICIAN: NEW REAVES MD PROCEDURE: ABD PEL WO - CT ABDOMEN/PELVIS W/O CONTRAST CT ABDOMEN/PELVIS W/O CONTRAST HISTORY: UTI COMPARISON: 12/14/2022 TECHNIQUE: Multiple sequential axial images of the abdomen and pelvis were obtained from the dome of the diaphragm through symphysis pubis. Patient was not given contrast through intravenous route. Oral contrast was not given. FINDINGS: No pleural effusion is seen bilaterally. There is no evidence of parenchymal disease or pulmonary nodule of the visualized lower lungs. Degenerative changes of the thoracolumbar spine are present. The heart is not enlarged. Liver is enlarged with fatty changes measuring 21 cm. A small hiatal hernia is seen. Gallstones are seen in the gallbladder. Nonspecific bilateral perinephric fat stranding is seen. If there is clinical suspicion for pyelonephritis, urinalysis correlation may be helpful. The liver, spleen, adrenal glands and pancreas are unremarkable. There is no evidence of hydronephrosis bilaterally. No evidence of renal stone is seen. Fecal material is seen in the colon. There are normal size retroperitoneal and mesenteric lymph nodes. No ascites is seen. No CT evidence of acute appendicitis is seen. Pelvic sidewalls are symmetric bilaterally. Bladder is moderately distended. IMPRESSION: 1. Gallstones in the gallbladder. If there is clinical suspicion for pyelonephritis, urinalysis correlation may be helpful. CT was performed with one or more following dose reduction techniques: automated exposure control, adjustment of the mA and kv according to patient's size, or use of a iterative reconstruction technique. DICTATED BY: CAROL HOWARD MD DATE: 01/05/25141 ELECTRONICALLY SIGNED BY: CAROL HOWARD MD DATE: 01/05/25147 PATIENT: ADAM MOE III MR#: [id number] : 1980 SEX: M AGE: 44 LOCATION: [facility] ORDER 41 STATUS: ADM IN REPORT#: [id number] SERVICE 38 REASON: chest pain CAD ORDERING PHYSICIAN: NEW REAVES MD PROCEDURE: CXR1VW - CHEST 1VW Exam Type: CHEST 1VW Clinical Information: chest pain CAD Comparison: None Findings: The lungs are clear of infiltrates. The heart is normal in size. The bony and soft tissue structures of the chest are unremarkable. Impression: Clear lungs. DICTATED BY: JANIE JOHNSON MD DATE: 01/05/25816 ELECTRONICALLY SIGNED BY: JANIE JOHNSON MD DATE: 01/05/25819 Assessment/Plan: ASSESSMENT: Severe sepsis, resolved POA Gram-positive bacteremia secondary to Staphylococcus aureus, POA Hypodense echogenic mobile vegetation to right coronary cusp leaflet on echocardiogram 01/05/2025 Left atrial appendage clot present. on OLEGARIO 01/11 non coronary cusp leaflet has vegetation that measures 1.8 x 1.1 cm. on OLEGARIO 01/11 Urinary tract infection, secondary to Klebsiella pneumoniae, POA Strep pharyngitis, POA ITP, POA Pneumonia, POA Leukocytosis, POA Hyperlactatemia, POA Acute kidney injury, POA Acute cholecystitis, POA Hypokalemia, POA Hyponatremia, POA Hypomagnesemia, POA POA New onset Uncontrolled Diabetes mellitius type2, POA Elevated troponin, POA Cocaine abuse, POA Alcohol abuse, POA Tobacco dependence, POA Significant proteinuria, POA Diabetic nephropathy, POA Gallstones, POA Fidelina esophagitis on EGD 01/11 PLAN: Bacterial endocarditis affecting the aortic valve (1.81x1.17 cm mass attached to the noncoronary cusp leaflet) identified on OLEGARIO done 01/11/2025 -Limited follow up 2D echocardiogram 01/23/2025 demonstrated vegetation measuring 0.8cm x 1.15cm with a traced area of 0.9cm (relatively unchanged) -Positive blood cultures collected 01/05/2025, 01/07/2025, 01/09/2025, 01/11/2025 -Blood cultures collected 01/17/2025 and 01/19/2025-negative x5 days -The patient will continue on IV antibiotic therapy which has been tailored by ID -will plan for OLEGARIO after 4-6 weeks of IV antibiotics to evaluate vegetation Left atrial appendage thrombus identified on OLEGARIO done 01/11/2025 -We will hold Eliquis 5 mg b.i.d. and have Hematology see the patient to further evaluate the etiology of the LLE hematoma -patient remains admitted to the medical floor. -continue the patient on broad-spectrum IV antibiotics -results of OLEGARIO reviewed, Left atrial appendage clot present. on OLEGARIO 01/11, aortic valve is trileaflet, opens well. Non coronary cusp leaflet has vegetation that measures 1.8 x 1.1 cm. on OLEGARIO 01/11 -continue heparin drip. Patient already evaluated by Cardiothoracic surgeon, continue medical management, we will re-evaluate possibility of aortic valve replacement in the near future. Hypoxia with worsening dyspnea Chest x-ray today and tomorrow. Supplemental O2 therapy p.r.n. for If respiratory distress worsens, consider repeat CT angiogram to rule out new pulmonary embolism Notify nurse to communicate with Cardiology regarding changes in status. 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 Continue to follow Hematology input and recommendation -renal function slightly improved today, patient evaluated by power saw mechanic, the patient with significant proteinuria on UA consistent with diabetic nephropathy. No acute need for any form of renal replacement therapy. -blood culture positive for Staphylococcus aureus. Urine culture positive for Klebsiella pneumoniae. Continue broad-spectrum IV antibiotics, continue to follow ID input recommendation. Will obtain liver serologies to r/o other liver pathology -case discussed with case management, patient to complete course of IV antibiotics likely during this hospitalization as the patient is uninsured. Gastroenterology For esophagitis continue pantoprazole 40 mg daily. Obtain liver serologies when available. Endocrinology Diabetes mellitus uncontrolled. Continue Lantus 15 units daily. Regular insulin7 units before meals sliding scale insulin also. Monitor blood glucose every 6 hours. Acute cholecystitis Awaiting cardiology clearance for outpatient cholecystectomy. Consider IR consult for percutaneous drainage if symptoms worsens. Disposition: Pending improvement in clinical condition. All questions answered time spent: > 35 min Discharge Instructions: ADMISSION DATE : January 04, 2025 DISCHARGE DATE : January 31, 2025 DISPOSITION : Home CONDITION : Stable LOAN CLOSER(S) : Infectious Disease, Nephrology, Endocrinology, Cardiology, Pulmonary and critical Care, Hematology and Oncology, Gastroenterology Primary care physician : Self-referral Admitting : Arvind Noland MD Attending : Benoit Martinez MD FOLLOW UP APPOINTMENT(s): INFECTIOUS DISEASE FOLLOW-UP APPOINTMENT WITHIN 1 WEEK OF DISCHARGE CARDIOLOGY FOLLOW-UP APPOINTMENT WITHIN 1 WEEK OF DISCHARGE. ENDOCRINOLOGY FOLLOW-UP VISIT IN 1 WEEK OF DISCHARGE. HEMATOLOGY FOLLOW-UP APPOINTMENT WITHIN 2 WEEKS OF DISCHARGE. PRIMARY CARE PHYSICIAN FOLLOW-UP APPOINTMENT WITHIN 3-5 DAYS OF DISCHARGE. GASTROENTEROLOGY FOLLOW-UP IN 3 WEEKS OF DISCHARGE. IMAGING(S) : Reports attached to summary. MICROBIOLOGY : Reports attached to summary. ACTIVITY : AD CECIL HOME MEDICATION : Continued TEACHING : Reinforced the importance of medication compliance and follow-up appointments. Home Medications: Active Scripts Insulin Regular, Human (Humulin R) 100 Unit/Ml Vial, 2 - IJ ACHS for 30 Days, #30 VIAL Prov:ARMANDO OTT MD 01/31/25 Insulin Glargine,Hum.rec.anlog (Lantus Solostar) 100 Unit/Ml (3 Ml) Insuln.pen, 20 UNIT SQ HS for 30 Days, #5 ML 0 Refills Prov:ARMANDO OTT MD 01/31/25 Furosemide (Lasix 40Mg Tab) 40 Mg Tablet, 40 MG PO DAILY for 30 Days, #30 TAB Prov:ARMANDO OTT MD 01/31/25 Ipratropium [place] (Atrovent Neb Soln) 0.2 Mg/Ml (0.02 %) Soln, 0.2 MG IH Q6H PRN for SHORTNESS OF BREATH for 30 Days, #30 ML Prov:ARMANDO OTT MD 01/31/25 Linezolid (Zyvox) 600 Mg/300 Ml Ivsoln, 600 MG IV [id number] PRN for infection for 42 Days, #84 ML 0 Refills Prov:ARMANDO OTT MD 01/31/25 Melatonin (Melatonin) 5 Mg Tablet, 10 MG PO HS PRN for INSOMNIA, #30 TAB Prov:ARMANDO OTT MD 01/31/25 Multivitamins,Therapeutic (Multivitamin Tablet) 400 Mcg Tab, 1 TAB PO DAILY for 30 Days, #30 TAB Prov:ARMANDO OTT MD 01/31/25 [Nitroglycerin 0.4MG Sl Tab] 0.4 MG TAB.SUBL No Conflict Check, 0.4 MG SL AD PRN for CHEST PAIN for 30 Days, #30 - 0 Refills Prov:ARMANDO OTT MD 01/31/25 Nystatin (Nystatin) 100,000 Unit/Ml Oral.susp, 480191 ML PO QID for 15 Days, #15 ML Prov:ARMANDO OTT MD 01/31/25 Triamcinolone Acetonide (Kenalog/Aristocort) 0.1 % Cream.gm., 0.1 APPL TP BID for 30 Days, #30 APPLIC 0 Refills Prov:ARMANDO OTT MD 01/31/25 Folic Acid (Folvite) 1 Mg Tab, 1 MG PO DAILY for 30 Days, #30 TAB Prov:ARAMNDO OTT MD 01/31/25 [Benzocaine/Menth/Cetylpyrd Cl] 1 EACH LOZENGE No Conflict Check, 1 EACH MM Q4H PRN for SORE THROAT for 30 Days, #120 - 0 Refills Prov:ARMANDO OTT MD 01/31/25 Acetaminophen (Tylenol) 325 Mg Tablet, 650 MG PO Q6H PRN for TEMPERATURE GREATER THAN 101.5 for 30 Days, #60 TAB Prov:ARMANDO OTT MD 01/31/25 New Medications: Insulin Glargine,Hum.rec.anlog (Lantus Solostar) 100 Unit/Ml (3 Ml) Insuln.pen 20 UNIT SQ HS for 30 Days, #5 ML 0 Refills Insulin Regular, Human (Humulin R) 100 Unit/Ml Vial 2 - IJ ACHS for 30 Days, #30 VIAL Acetaminophen (Tylenol) 325 Mg Tablet 650 MG PO Q6H PRN for TEMPERATURE GREATER THAN 101.5 for 30 Days, #60 TAB [Benzocaine/Menth/Cetylpyrd Cl] () 1 EACH LOZENGE 1 EACH MM Q4H PRN for SORE THROAT for 30 Days, #120 - 0 Refills Folic Acid (Folvite) 1 Mg Tab 1 MG PO DAILY for 30 Days, #30 TAB Furosemide (Lasix 40Mg Tab) 40 Mg Tablet 40 MG PO DAILY for 30 Days, #30 TAB Ipratropium [place] (Atrovent Neb Soln) 0.2 Mg/Ml (0.02 %) Soln 0.2 MG IH Q6H PRN for SHORTNESS OF BREATH for 30 Days, #30 ML Linezolid (Zyvox) 600 Mg/300 Ml Ivsoln 600 MG IV [id number] PRN for infection for 42 Days, #84 ML 0 Refills Melatonin (Melatonin) 5 Mg Tablet 10 MG PO HS PRN for INSOMNIA, #30 TAB Multivitamins,Therapeutic (Multivitamin Tablet) 400 Mcg Tab 1 TAB PO DAILY for 30 Days, #30 TAB [Nitroglycerin 0.4MG Sl Tab] () 0.4 MG TAB.SUBL 0.4 MG SL AD PRN for CHEST PAIN for 30 Days, #30 - 0 Refills Nystatin (Nystatin) 100,000 Unit/Ml Oral.susp [id number] ML PO QID for 15 Days, #15 ML Triamcinolone Acetonide (Kenalog/Aristocort) 0.1 % Cream.gm. 0.1 APPL TP BID for 30 Days, #30 APPLIC 0 Refills Time spent arranging discharge: 31-60 minutes ATTESTATION BY PHYSICIAN I have seen and examined the patient. I reviewed the documentation, medical decision making, and treatment plan as noted by the resident above. I agree with the findings and plan of care. Benoit Martinez MD, RAGHAVA R MD Jan 31, 2025 23:27
--- NOTE | 2025-01-31 23:31 | PN ---
[facility] PROGRESS NOTE Date Patient Seen: Jan 31, 2025 Time of Visit: 23:17 Supervising Physician: HEIDI AMADO MD Supervising Physician: Dr. Jose L Nair Primary Care Physician: Paper Folding Machine Operator PCP Outpatient Specialists: [ ] Inpatient Consults:Critical care, Hematology, cardiology and nephrology PROBLEM LIST: Bacterial endocarditis on admission with an aortic valve vegetation left atrial appendage thrombus Acute sepsis with septic shock on admission Fidelina esophagitis Acute complicated cystitis with positive Klebsiella Staphylococcus aureus bacteremia Streptococcal pharyngitis Thrombocytopenia Alcohol use disorder Tobacco use disorder Cocaine use disorder Acute cholecystitis on HIDA scan 01/07/25 POA Metabolic associated steatotic liver disease Morbid obesity BMI 35 Noncompliance behavior INTERVAL HISTORY: Patient is resting in bed he is on room air and does not appear to be in distress he is up and ambulatory afebrile, no seizures good appetite, no diarrhea no chest pain reported REVIEW OF SYSTEMS: 12 point ROS reviewed with patient. Pertinent positives mentioned above. Otherwise negative. PHYSICAL EXAM: GENERAL: alert, weak, awake oriented x 3 HEENT: EOMI, Sclera non icteric, moist mucosa NECK: Supple, no JVD, trachea midline LUNGS: Clear breath sounds bilaterally. No wheezes HEART: Regular rate and rhythm. Normal S1 and S2, without murmurs ABD: Abdomen soft, nontender. Bowel sounds present EXT: No clubbing cyanosis or edema NEURO: Alert and oriented to person, follows commands Vital Signs (last 8hr) Date Time Temp Pulse Resp B/P (MAP) Pulse Ox O2 Delivery O2 Flow Rate FiO2 01/31/25 19:05 91 20 N/A Room Air 21 01/31/25 16:00 97.9 87 18 137/69 98 Room Air LABS: Hematology Labs: Test 01/31/25 06:00 Range/Units White Blood Count 10.7 4.8-10.8 K/uL Red Blood Count 3.07 L 4.50-6.20 MIL/uL Hemoglobin 9.7 L 14.0-18.0 g/dL Hematocrit 29.9 L 42-54 % Mean Corpuscular Volume 97.4 79-99 fL Mean Corpuscular Hemoglobin 31.6 27.0-33.0 pg Mean Corpuscular Hemoglobin Concent 32.4 32.0-36.0 g/dL Red Cell Distribution Width 14.2 11.0-15.5 % Platelet Count 203 130-400 K/uL Mean Platelet Volume 9.6 7.5-10.5 fL Immature Granulocyte % (Auto) 1.2 H 0-1 % Neutrophils (%) (Auto) 73.9 40.0-77.0 % Lymphocytes (%) (Auto) 19.0 L 21.0-51.0 % Monocytes (%) (Auto) 5.0 3.0-13.0 % Eosinophils (%) (Auto) 0.7 0.0-8.0 % Basophils (%) (Auto) 0.2 0.0-5.0 % Neutrophils # (Auto) 7.9 H 1.8-7.7 K/uL Lymphocytes # (Auto) 2.0 1.0-4.8 K/uL Monocytes # (Auto) 0.5 0.1-1.0 K/uL Eosinophils # (Auto) 0.07 0.00-0.70 K/uL Basophils # (Auto) 0.02 0.00-0.20 K/uL Absolute Immature Granulocyte (auto 0.13 0-1 K/uL Nucleated Red Blood Cells 0.2 H 0.0-0.19 % Chemistry Labs: Test 01/31/25 21:39 01/31/25 06:00 Range/Units Whole Blood Glucose 149 H 70-110 MG/DL Sodium Level 134 L 136-145 mmol/L Potassium Level 3.7 3.5-5.1 mmol/L Chloride Level 101 101-111 mmol/L Carbon Dioxide Level 25 21-32 mmol/L Blood Urea Nitrogen 27 H 7-18 mg/dL Creatinine 1.2 0.5-1.3 mg/dL Glomerular Filtration Rate Calc 76 >90 mL/min Random Glucose 96 70-105 mg/dL Total Calcium 8.5 8.5-10.1 mg/dL Phosphorus Level 4.1 2.5-4.9 mg/dL Magnesium Level 1.70 L 1.80-2.40 mg/dL DIAGNOSTICS / RADIOLOGY RESULTS: [ ] PLAN Patient is hemodynamically stable from pulmonary standpoint will sign off from case today NEURO: Minimize central acting medications as possible. Maintain fall precautions, adequate lighting during the day PULMONARY: Supplemental 02 as needed. Maintain aspiration precautions at all times CARDIOVASCULAR: Follow hemodynamics. Vital signs per facility protocol GI & NUTRITION: Continue with nutritional support. Continue stool softeners and laxatives as needed. KIDNEYS & ELECTROLYTES: Strict monitoring of intake, output and overall fluid balance. Avoid nephrotoxic medications to the extent possible. Medications to be dosed according to renal function. Monitor electrolytes and replace as needed ENDOCRINE: Maintain blood glucose between 100-180 at all times. Hypoglycemia protocol in place INFECTIOUS DISEASE: Trend temperature, WBC and procalcitonin level Follow cultures, deescalate antibiotics as soon as possible. Panculture if new onset fever ONCOLOGY/HEMATOLOGY/COAGULATION: Monitor for s/s of bleeding Monitor hemoglobin, coagulation studies as needed SKIN: Pressure ulcer prevention per facility protocol Specialty mattress ORTHO/REHAB: Continue PT/OT Prophylaxis: Continue GI and DVT prophylaxis Code Status: Full Resuscitation Please feel free to consult again should you have any questions. I personally scribed for HEIDI LUNDBERG MD ([email or web address]) on 01/31/25 at 23:31. Electronically submitted by Kamran Johnson ([email or web address]). HEIDI LUNDBERG MD Jan 31, 2025 23:31
[2025-01-31] MEDS ORDERED: INSU100V3 IJ (23:56)
[2025-02-01 03:57] VITALS: BP 123/45; PULSE 97; RESP 19; TEMP 98.1
[2025-02-01 04:12] VITALS: O2SAT 98
[2025-02-01 06:55] VITALS: PULSE 93; RESP 20; O2SAT 98
[2025-02-01 07:12] VITALS: O2SAT 97
--- NOTE | 2025-02-01 07:29 | PN ---
GASTROENTEROLOGY PROGRESS NOTE Date of Visit: Feb 01, 2025 Time of Visit: 07:29 Events / Notes: No acute events overnight. Patient had EGD revealing LA Grade B esophagitis. Denies fever, chills, abdominal pain, N/V, hematemesis, bloating, constipation, diarrhea, melena or hematochezia. No overt GI bleeding. Review of Systems: CONSTITUTIONAL: No malaise or change in sensation of wellbeing. ENMT: No rhinorrhea, otorrhea, sinus pain, ear ache. CARDIOVASCULAR: No angina, palpitations, orthopnea or paroxysmal dyspnea. RESPIRATORY: No SOB. GASTROINTESTINAL: No abdominal pain, nausea, vomiting, diarrhea, hematemesis, melena or change in the patient's habitual bowel movements consistency/number. GENITOURINARY: No dysuria, hematuria or change in bladder continence. MUSCULOSKELETAL: No new muscle pain or decrease in muscular strength. No new joint swelling, redness or tenderness. SKIN: No new rash. Physical Exam: GEN: Awake, alert, oriented in person, time and place, and in no acute distress. HEENT: No sinus tenderness. Tympanic membranes were not examined. No rhinorrhea. Oral pharyngeal mucosa is pink, moist and within normal limits. Neck is supple with no cervical lymphadenopathy, thyromegaly or JVD. CHEST: Inspection, palpation and percussion of the chest were unremarkable. Lung auscultation revealed normal breath sounds bilaterally. CARDIAC: PMI is within normal limits. Heart sounds are regular. Normal S1, S2. No gallop or murmur. ABD: Soft, non-tender and not distended. No peritoneal signs on palpation. No organomegaly. Normal bowel sounds. EXT: No cyanosis or clubbing. No edema. SKIN: Intact. No rashes. JOINTS: No evidence of synovitis or acute arthritis. NEURO: Alert and oriented to name, place and person. Cranial nerve examination is unremarkable. No focal motor deficits. Normal speech. Gait is normal. Strength is normal. Vital Signs (last 8hr) Date Time Temp Pulse Resp B/P (MAP) Pulse Ox O2 Delivery O2 Flow Rate FiO2 02/01/25 06:55 93 20 N/A Room Air 21 02/01/25 04:12 98 Room Air* 0 21 02/01/25 03:57 98.1 97 19 123/45 95 Room Air 01/31/25 23:57 98.4 90 19 152/88 100 Room Air Laboratory: [ ] Laboratory: Test 02/01/25 05:42 01/31/25 06:00 Range/Units Whole Blood Glucose 109 70-110 MG/DL White Blood Count 10.7 4.8-10.8 K/uL Red Blood Count 3.07 L 4.50-6.20 MIL/uL Hemoglobin 9.7 L 14.0-18.0 g/dL Hematocrit 29.9 L 42-54 % Mean Corpuscular Volume 97.4 79-99 fL Mean Corpuscular Hemoglobin 31.6 27.0-33.0 pg Mean Corpuscular Hemoglobin Concent 32.4 32.0-36.0 g/dL Red Cell Distribution Width 14.2 11.0-15.5 % Platelet Count 203 130-400 K/uL Mean Platelet Volume 9.6 7.5-10.5 fL Immature Granulocyte % (Auto) 1.2 H 0-1 % Neutrophils (%) (Auto) 73.9 40.0-77.0 % Lymphocytes (%) (Auto) 19.0 L 21.0-51.0 % Monocytes (%) (Auto) 5.0 3.0-13.0 % Eosinophils (%) (Auto) 0.7 0.0-8.0 % Basophils (%) (Auto) 0.2 0.0-5.0 % Neutrophils # (Auto) 7.9 H 1.8-7.7 K/uL Lymphocytes # (Auto) 2.0 1.0-4.8 K/uL Monocytes # (Auto) 0.5 0.1-1.0 K/uL Eosinophils # (Auto) 0.07 0.00-0.70 K/uL Basophils # (Auto) 0.02 0.00-0.20 K/uL Absolute Immature Granulocyte (auto 0.13 0-1 K/uL Nucleated Red Blood Cells 0.2 H 0.0-0.19 % Sodium Level 134 L 136-145 mmol/L Potassium Level 3.7 3.5-5.1 mmol/L Chloride Level 101 101-111 mmol/L Carbon Dioxide Level 25 21-32 mmol/L Blood Urea Nitrogen 27 H 7-18 mg/dL Creatinine 1.2 0.5-1.3 mg/dL Glomerular Filtration Rate Calc 76 >90 mL/min Random Glucose 96 70-105 mg/dL Total Calcium 8.5 8.5-10.1 mg/dL Phosphorus Level 4.1 2.5-4.9 mg/dL Magnesium Level 1.70 L 1.80-2.40 mg/dL Current Medications Medications (Trade) Dose Ordered Sig/Asya Route PRN Reason Start Time Stop Time Status Last Admin Dose Admin Acetaminophen (TYLenol 325MG TAB) 650 mg Q6H PRN PO MILD PAIN (1-3) 01/16/25 17:30 02/15/25 17:29 02/01/25 04:04 650 MG Acetaminophen (TYLenol 325MG TAB) 650 mg Q6H PRN PO TEMPERATURE GREATER THAN 101.5 01/05/25 02:30 02/04/25 02:29 01/30/25 08:58 650 MG Apixaban (EliquIS) 5 mg BID PO 01/21/25 21:00 01/23/25 10:57 DC 01/22/25 09:02 5 MG Apixaban (EliquIS) 5 mg BID PO 01/23/25 21:00 01/27/25 10:16 DC 01/27/25 09:01 5 MG Apixaban (EliquIS) 5 mg BID PO 01/25/25 21:00 01/21/25 16:00 DC Apixaban (EliquIS) 10 mg BID PO 01/18/25 21:00 01/18/25 13:52 DC Apixaban (EliquIS) 10 mg BID PO 01/18/25 21:00 01/21/25 16:00 DC 01/21/25 08:45 10 MG Aspirin (Aspirin 81mg Chew Tab) 81 mg DAILY PO 01/05/25 09:00 01/05/25 09:53 DC Aspirin (Aspirin 81mg Ec Tab) 81 mg DAILY PO 01/16/25 09:00 01/26/25 10:14 DC 01/25/25 09:45 81 MG Benzocaine (Cepacol Sore Throat Lozenge) 1 each Q4H PRN MM SORE THROAT 01/05/25 02:30 02/04/25 02:29 Benzonatate (Tessalon 100mg Caps) 100 mg Q8H PRN PO Dry cough 01/30/25 15:00 02/09/25 12:00 01/31/25 05:37 100 MG Calcium Gluconate 1 gm/Sodium Chloride 100 ml @ 0 mls/hr AD PRN IV Serum Calcium Correction 01/08/25 02:30 02/07/25 02:29 01/08/25 23:32 90 MLS/HR Cefazolin Sodium (Ancef) 2 gm Q12H IVPB 01/07/25 13:30 01/16/25 14:43 DC 01/16/25 01:12 2 GM Cefazolin Sodium (Ancef) 2 gm Q8H IVPB 01/16/25 21:30 01/17/25 13:22 DC 01/17/25 05:07 2 GM Chlordiazepoxide HCl (LIBrium 25 MG CAP) 25 mg Q8H PO 01/05/25 02:30 01/11/25 11:39 DC 01/10/25 22:23 25 MG Chlordiazepoxide HCl (LIBrium 25 MG CAP) 25 mg Q8H PRN PO WITHDRAWAL 01/11/25 12:00 01/12/25 02:29 DC Dexamethasone Sodium Phosphate (dexaMETHasone 10MG/ML 1ML VIAL) 10 mg DAILY IVP 01/29/25 11:00 02/28/25 10:59 01/31/25 08:36 10 MG Dexamethasone Sodium Phosphate 10 mg/Sodium Chloride 51 ml @ 100 mls/hr DAILY IV 01/28/25 09:00 01/29/25 10:57 DC 01/28/25 13:03 100 MLS/HR Dexamethasone Sodium Phosphate 20 mg/Sodium Chloride 52 ml @ 100 mls/hr DAILY IV 01/09/25 09:00 01/27/25 19:04 DC 01/27/25 09:16 100 MLS/HR Dexamethasone Sodium Phosphate 40 mg/Sodium Chloride 50 ml @ 100 mls/hr DAILY IV 01/06/25 14:00 01/08/25 12:16 DC 01/08/25 09:34 100 MLS/HR Dextrose (D50w) 50 ml AD PRN IV HYPOGLYCEMIA PROTOCOL 01/05/25 10:00 02/04/25 09:59 Doxycycline Hyclate 250 ml @ 125 mls/hr Q12H IV 01/05/25 10:00 01/06/25 21:05 DC 01/06/25 09:30 125 MLS/HR Doxycycline Hyclate 250 ml @ 125 mls/hr Q12H IV 01/06/25 21:30 01/16/25 14:23 DC 01/16/25 10:13 125 MLS/HR Fluconazole (DiFLUCan 100 mg TAB) 200 mg DAILY PO 01/12/25 09:00 01/25/25 16:12 DC 01/25/25 09:44 200 MG Folic Acid (FOLic ACID 1 MG TABLET) 1 mg DAILY PO 01/07/25 10:30 02/06/25 10:29 01/31/25 08:36 1 MG Furosemide (LASix 20MG VIAL) 20 mg BIDPC IV 01/25/25 10:00 01/26/25 18:01 DC 01/26/25 18:06 20 MG Furosemide (LASix 20MG VIAL) 20 mg Q12H IV 01/07/25 16:00 01/11/25 00:56 DC 01/10/25 19:40 20 MG Furosemide (LASix 40MG TAB) 40 mg DAILY PO 01/30/25 11:35 03/01/25 11:34 01/31/25 08:38 40 MG Gentamicin Sulfate 150 mg/ Sodium Chloride 100 ml @ 100 mls/hr Q12H IV 01/20/25 16:00 01/22/25 03:27 DC 01/21/25 16:00 100 MLS/HR Gentamicin Sulfate 90 mg/ Sodium Chloride 50 ml @ 100 mls/hr Q8H IV 01/22/25 03:30 01/22/25 03:30 DC Gentamicin Sulfate 90 mg/ Sodium Chloride 50 ml @ 100 mls/hr Q8H IV 01/22/25 04:00 01/23/25 20:03 DC 01/23/25 12:54 100 MLS/HR Gentamicin Sulfate/Sodium Chloride 100 ml @ 200 mls/hr BID@0600,1800 IV 01/24/25 06:00 01/25/25 16:12 DC 01/25/25 05:48 200 MLS/HR Gentamicin Sulfate/Sodium Chloride 100 ml @ 200 mls/hr Q12H IV 01/16/25 15:30 01/18/25 03:39 DC 01/17/25 16:00 200 MLS/HR Gentamicin Sulfate/Sodium Chloride 100 ml @ 200 mls/hr Q12H IV 01/18/25 04:00 01/20/25 06:41 DC 01/20/25 05:38 200 MLS/HR Glucagon (Glucagon 1mg Kit) 1 mg AD PRN IM HYPOGLYCEMIA PROTOCOL 01/05/25 10:00 02/04/25 09:59 Guaifenesin/ Dextromethorphan (RobiTUSSin DM 200/20MG 10ML) 5 ml Q6H PRN PO COUGH 01/30/25 15:00 02/08/25 12:00 Heparin Sodium/ Dextrose 250 ml @ 0 mls/hr PROTOCOL IV 01/11/25 14:30 01/18/25 13:28 DC 01/17/25 16:09 13.99 MLS/HR Hydralazine HCl (APRESOLine 20MG INJ) 5 mg Q6H PRN IV For:SBP above 160;DBP above 90 01/05/25 14:30 02/04/25 14:29 01/10/25 22:24 5 MG Hydralazine HCl (APRESOLine 20MG INJ) 10 mg Q6H PRN IV For:SBP above 160;DBP above 90 01/05/25 02:30 01/05/25 09:53 DC Insulin Glargine (LANtus 100 UNITS/ML 10 ML VIAL) 15 units DAILY SQ 01/24/25 09:00 02/23/25 08:59 01/31/25 08:57 15 UNITS Insulin Glargine (LANtus 100 UNITS/ML 10 ML VIAL) 15 units Q12H SQ 01/07/25 21:30 01/09/25 23:18 DC 01/09/25 13:10 15 UNITS Insulin Glargine (LANtus 100 UNITS/ML 10 ML VIAL) 20 units DAILY SQ 01/14/25 09:00 01/23/25 21:37 DC 01/23/25 09:41 20 UNITS Insulin Glargine (LANtus 100 UNITS/ML 10 ML VIAL) 20 units HS SQ 01/06/25 21:00 01/06/25 21:05 DC Insulin Glargine (LANtus 100 UNITS/ML 10 ML VIAL) 20 units HS SQ 01/06/25 21:30 01/07/25 10:24 DC 01/06/25 21:33 20 UNITS Insulin Glargine (LANtus 100 UNITS/ML 10 ML VIAL) 20 units Q12H SQ 01/10/25 09:30 01/10/25 12:58 DC Insulin Glargine (LANtus 100 UNITS/ML 10 ML VIAL) 25 units Q12H SQ 01/10/25 21:30 01/11/25 00:50 DC 01/10/25 22:19 25 UNITS Insulin Glargine (LANtus 100 UNITS/ML 10 ML VIAL) 30 units DAILY SQ 01/12/25 09:00 01/14/25 07:03 DC 01/12/25 11:25 30 UNITS Insulin Glargine (LANtus 100 UNITS/ML 10 ML VIAL) 30 units Q12H SQ 01/11/25 09:30 01/11/25 20:13 DC 01/11/25 10:50 30 UNITS Insulin Human Regular (humuLIN R 100 UNIT/ML 3ML) 5 unit TIDAC SQ 01/14/25 07:30 01/29/25 06:36 DC 01/28/25 16:50 5 UNIT Insulin Human Regular (humuLIN R 100 UNIT/ML 3ML) 7 unit TIDAC SQ 01/29/25 07:30 02/28/25 07:29 02/01/25 07:27 7 UNIT Insulin Human Regular (humuLIN R 100 UNIT/ML 3ML) 8 unit TIDAC SQ 01/11/25 07:30 01/14/25 07:03 DC 01/13/25 19:47 8 UNIT Insulin Human Regular (humuLIN R 100 UNIT/ML 3ML) INSULIN SLIDING SCAL... ACHS SQ 01/18/25 21:00 01/28/25 22:15 DC 01/28/25 21:07 7 UNIT Insulin Human Regular (humuLIN R 100 UNIT/ML 3ML) INSULIN SLIDING SCAL... ACHS SQ 01/05/25 07:30 01/05/25 09:57 DC 01/05/25 07:59 16 UNIT Insulin Human Regular (humuLIN R 100 UNIT/ML 3ML) INSULIN SLIDING SCAL... ACHS SQ 01/05/25 11:30 01/06/25 16:43 DC 01/06/25 11:50 8 UNIT Insulin Human Regular (humuLIN R 100 UNIT/ML 3ML) INSULIN SLIDING SCAL... ACHS SQ 01/06/25 17:00 01/07/25 13:32 DC 01/06/25 17:17 16 UNIT Insulin Human Regular (humuLIN R 100 UNIT/ML 3ML) INSULIN SLIDING SCAL... ACHS SQ 01/29/25 07:30 02/28/25 07:29 01/31/25 17:08 8 UNIT Insulin Human Regular (humuLIN R 100 UNIT/ML 3ML) INSULIN SLIDING SCAL... Q4H SQ 01/11/25 02:00 01/11/25 23:59 DC 01/11/25 20:49 6 UNIT Insulin Human Regular (humuLIN R 100 UNIT/ML 3ML) INSULIN SLIDING SCAL... Q4H SQ 01/11/25 23:59 01/18/25 19:33 DC 01/18/25 16:59 4 UNIT Insulin Human Regular (humuLIN R 100 UNIT/ML 3ML) INSULIN SLIDING SCAL... Q6H6 SQ 01/10/25 18:00 01/11/25 00:50 DC 01/11/25 00:45 10 UNIT Insulin Human Regular 100 unit/ Sodium Chloride 100 ml @ 0 mls/hr AD PRN IV HYPERGLYCEMIA PROTOCOL 01/06/25 19:30 01/10/25 06:00 DC 01/09/25 19:10 16 MLS/HR Ipratropium [place] (AtrovENT UD) 0.5 MG Q6H PRN IH SHORTNESS OF BREATH 01/29/25 11:00 02/28/25 10:59 Iron Sucrose (VenoFER) 300 mg Q24H IVP 01/21/25 15:00 01/21/25 15:29 DC Iron Sucrose 300 mg/Sodium Chloride 250 ml @ 166.667 mls/hr Q24H IV 01/21/25 16:00 01/21/25 17:22 DC Iron Sucrose 300 mg/Sodium Chloride 250 ml @ 166.667 mls/hr Q24H IV 01/21/25 19:30 01/21/25 20:57 DC Iron Sucrose 300 mg/Sodium Chloride 250 ml @ 166.667 mls/hr Q24H IV 01/21/25 21:00 01/23/25 22:29 DC 01/23/25 20:56 166.667 MLS/HR Lactated Ringer's 1,000 ml @ 100 mls/hr Q10H IV 01/05/25 02:30 01/05/25 09:51 DC 01/05/25 02:30 100 MLS/HR Lactated Ringer's 1,000 ml @ 125 mls/hr Q8H IV 01/10/25 01:30 01/10/25 19:40 DC 01/10/25 13:07 125 MLS/HR Lactobacillus Rhamnosus ([facility]) 1 each DAILY PO 01/12/25 09:00 02/11/25 08:59 01/31/25 08:36 1 EACH Lidocaine (Lidoderm Patch 5%) 1 patch DAILY TP 01/25/25 12:00 02/24/25 11:59 01/31/25 08:55 1 PATCH Linezolid 300 ml @ 300 mls/hr Q12H IV 01/25/25 20:30 02/04/25 20:29 01/31/25 21:41 300 MLS/HR Lorazepam (AtiVAN) 1 mg Q4H PRN IVP ALCOHOL WITHDRAWAL PROTOCOL 01/05/25 02:30 01/12/25 02:29 DC Magnesium Sulfate 50 ml @ 0 mls/hr PROTOCOL PRN IV h 01/05/25 02:30 02/04/25 02:29 01/31/25 06:46 25 MLS/HR Melatonin (Melatonin) 10 mg HS PRN PO INSOMNIA 01/21/25 21:30 02/20/25 21:29 01/31/25 23:29 10 MG Morphine Sulfate (morPHINE 2MG SYG) 2 mg Q4H PRN IVP SEVERE PAIN (7-10) 01/05/25 02:30 01/12/25 02:29 DC Multivitamins Therapeutic (Multivitamin Tablet) 1 tab DAILY PO 01/07/25 10:30 02/06/25 10:29 01/31/25 08:36 1 TAB Nafcillin Sodium (Nafcillin 2gm+ NS 100ml) 2 gm Q6H6 IV 01/17/25 18:00 01/25/25 16:12 DC 01/25/25 12:18 2 GM Nicotine (Nicoderm) 21 mg DAILY TD 01/05/25 09:00 02/04/25 08:59 01/31/25 08:55 21 MG Nitroglycerin (Nitrostat) 0.4 mg AD PRN SL CHEST PAIN 01/05/25 02:30 02/04/25 02:29 Nystatin (NYSTatin 905744 UNIT/ML 5ML UDCUP) 100,000 UNITS 1 ML TO E... QID PO 01/18/25 09:00 02/17/25 08:59 01/31/25 21:41 5 ML Ondansetron HCl (zoFRAN 4MG INJ) 4 mg Q6H PRN IV NAUSEA/VOMITING 01/05/25 02:30 02/04/25 02:29 Pantoprazole Sodium (PROTonix 40MG INJ) 40 mg Q24H IVP 01/26/25 04:30 02/25/25 04:29 02/01/25 04:04 40 MG Pantoprazole Sodium (PROTonix 40MG TAB) 40 mg DAILY PO 01/05/25 09:00 01/26/25 04:16 DC 01/25/25 09:45 40 MG Pharmacy Profile Note (Pharmacy Communication) 1 each ONCE MISC 01/16/25 14:30 01/16/25 15:12 DC Pharmacy Profile Note (Pharmacy Communication) 1 each ONCE MISC 01/25/25 07:30 01/25/25 07:26 DC Pharmacy Profile Note (Pharmacy Communication) 1 each ONCE MISC 01/25/25 16:30 01/25/25 16:12 DC Pharmacy Profile Note (Pharmacy Communication) 1 each PROTOCOL PRN MISC ETOH Withdrawal Score changes 01/05/25 02:30 01/12/25 02:29 DC Piperacillin Sod/ Tazobactam Sod (Zosyn 3.375gm+NS 50ml) 3.375 gm Q12H IV 01/05/25 02:30 01/07/25 13:24 DC 01/07/25 02:45 3.375 GM Potassium Phosphate 250 ml @ 42 mls/hr PROTOCOL PRN IV PROTOCOL 01/05/25 10:00 02/04/25 09:59 Potassium Chloride 100 ml @ 100 mls/hr AD PRN IV POTASSIUM PROTOCOL 01/05/25 02:30 01/07/25 10:12 DC Potassium Chloride 100 ml @ 100 mls/hr AD PRN IV POTASSIUM PROTOCOL 01/07/25 10:30 02/06/25 10:29 01/09/25 06:26 100 MLS/HR Potassium Chloride (K-Dur 10meq Sr Tab) 10 meq AD PRN PO POTASSIUM PROTOCOL 01/06/25 09:30 02/04/25 02:29 01/08/25 23:35 10 MEQ Potassium Chloride (K-Dur/Klor-Con 20meq) 10 meq AD PRN PO POTASSIUM PROTOCOL 01/05/25 02:30 01/06/25 09:12 DC 01/05/25 22:15 10 MEQ Potassium Chloride (K-Dur/Klor-Con 20meq) 10 meq AD PRN PO POTASSIUM PROTOCOL 01/07/25 10:30 01/07/25 10:12 DC Potassium Chloride (KCl 10% Elixir 20meq/15ml) 10 meq AD PRN PO POTASSIUM PROTOCOL 01/05/25 02:30 01/07/25 10:12 DC 01/06/25 17:16 10 MEQ Potassium Chloride (KCl 10% Elixir 20meq/15ml) 10 meq AD PRN PO POTASSIUM PROTOCOL 01/07/25 10:30 02/06/25 10:29 01/23/25 15:27 10 MEQ Sodium Bicarbonate (Sodium Bicarbonate) 1,300 mg BID PO 01/11/25 09:00 01/30/25 09:19 DC 01/30/25 08:58 1,300 MG Sodium Chloride 1,000 ml @ 50 mls/hr Q20H IV 01/05/25 10:00 01/10/25 01:33 DC 01/09/25 05:56 50 MLS/HR Sodium Chloride 1,000 ml @ 75 mls/hr [id number] IV 01/11/25 01:00 01/11/25 13:45 DC 01/11/25 01:00 75 MLS/HR Triamcinolone Acetonide (Kenalog/ Aristocort) 1 APPLY TP BID BID TP 01/07/25 11:00 02/06/25 10:59 01/31/25 21:42 1 APPL Vancomycin HCl (Vancomycin Protocol) 1 each AD IV 01/07/25 12:30 01/07/25 12:40 DC Diagnostics / Radiology: [COPY/PASTE HERE IF NO REPORTS PLEASE DELETE SECTION] Assessment: GERD esophagitis Decompensated cirrhosis Thrombocytopenia Abnormal troponin Alcohol abuse Plan: Follow cardio recommendations Will obtain liver serologies to r/o other liver pathology Please contact our service if the patient has significant bleeding such as hematemesis and we can proceed sooner with the EGD Thanks you for allowing us to participate in the care of this patient! HILDA MUIRP Feb 01, 2025 07:29
--- NOTE | 2025-02-01 07:34 | PN ---
[facility] CARDIOLOGY PROGRESS NOTE Date Patient Seen: Feb 01, 2025 Time of Visit: 07:33 Interval History: No acute events overnight. Currently denies any cardiac symptoms or anginal equivalents. Physical Examination: GENERAL: No acute distress. HEAD: Normal with no signs of head trauma. EYES: PERRLA, EOMI, conjunctiva and sclera normal. NECK: Supple without JVD. There is no tenderness, lymphadenopathy, or masses. No thyromegaly. Normal carotid upstrokes without bruits. LUNGS: Crackles to mid and lower bases bilaterally. HEART: Regular rate. Normal S1 and S2. No obvious murmurs, gallops, or rubs n oted. No murmur audible. VASC: Peripheral pulses +2 bilaterally. EXT: Ecchymosis to the right upper arm noted. There is a left calf hematoma and increased girth of the left calf compared to the right calf. 2-3+ pedal edema. There are scattered petechial and purpuric patches. NEURO: Awake, alert, and oriented. No focal neurological deficits noted. Laboratory: [ ] Hematology Labs: Test 01/31/25 06:00 Range/Units White Blood Count 10.7 4.8-10.8 K/uL Red Blood Count 3.07 L 4.50-6.20 MIL/uL Hemoglobin 9.7 L 14.0-18.0 g/dL Hematocrit 29.9 L 42-54 % Mean Corpuscular Volume 97.4 79-99 fL Mean Corpuscular Hemoglobin 31.6 27.0-33.0 pg Mean Corpuscular Hemoglobin Concent 32.4 32.0-36.0 g/dL Red Cell Distribution Width 14.2 11.0-15.5 % Platelet Count 203 130-400 K/uL Mean Platelet Volume 9.6 7.5-10.5 fL Immature Granulocyte % (Auto) 1.2 H 0-1 % Neutrophils (%) (Auto) 73.9 40.0-77.0 % Lymphocytes (%) (Auto) 19.0 L 21.0-51.0 % Monocytes (%) (Auto) 5.0 3.0-13.0 % Eosinophils (%) (Auto) 0.7 0.0-8.0 % Basophils (%) (Auto) 0.2 0.0-5.0 % Neutrophils # (Auto) 7.9 H 1.8-7.7 K/uL Lymphocytes # (Auto) 2.0 1.0-4.8 K/uL Monocytes # (Auto) 0.5 0.1-1.0 K/uL Eosinophils # (Auto) 0.07 0.00-0.70 K/uL Basophils # (Auto) 0.02 0.00-0.20 K/uL Absolute Immature Granulocyte (auto 0.13 0-1 K/uL Nucleated Red Blood Cells 0.2 H 0.0-0.19 % Chemistry Labs: Test 02/01/25 05:42 01/31/25 06:00 Range/Units Whole Blood Glucose 109 70-110 MG/DL Sodium Level 134 L 136-145 mmol/L Potassium Level 3.7 3.5-5.1 mmol/L Chloride Level 101 101-111 mmol/L Carbon Dioxide Level 25 21-32 mmol/L Blood Urea Nitrogen 27 H 7-18 mg/dL Creatinine 1.2 0.5-1.3 mg/dL Glomerular Filtration Rate Calc 76 >90 mL/min Random Glucose 96 70-105 mg/dL Total Calcium 8.5 8.5-10.1 mg/dL Phosphorus Level 4.1 2.5-4.9 mg/dL Magnesium Level 1.70 L 1.80-2.40 mg/dL Diagnostics / Radiology: [Copy/Paste Echos/Imaging Report here] Impression: 1. Gram-positive bacteremia due to MRSA, unknown source 2. 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 Left atrial appendage thrombus with no known history of atrial fibrillation 4. Urinary tract infection with Klebsiella pneumonia 5. Idiopathic thrombocytopenic purpura, on steroids 6. Acute kidney injury 7. Anemia 8. Type 2 diabetes, newly diagnosed 9. Polysubstance abuse with alcohol, cocaine, and tobacco Plan: Bacterial endocarditis affecting the aortic valve (1.81x1.17 cm mass attached to the noncoronary cusp leaflet) identified on DRAKE done 01/11/2025 -Limited follow up 2D echocardiogram 01/23/2025 demonstrated vegetation measuring 0.8cm x 1.15cm with a traced area of 0.9cm (relatively unchanged) -Positive blood cultures collected 01/05/2025, 01/07/2025, 01/09/2025, 01/11/2025 -Blood cultures collected and negative from 01/14/2025 -The patient will continue on IV antibiotic therapy which has been tailored by ID -will plan for DRAKE after 4-6 weeks of IV antibiotics to evaluate vegetation. Time starts on day blood cultures became negative, so 01/14/2025, therefore DRAKE will be done in 6 weeks from that date February 28 Left atrial appendage thrombus identified on DRAKE done 01/11/2025 -We will hold Eliquis 5 mg b.i.d. and have Hematology see the patient to further evaluate the etiology of the LLE hematoma LLE hematoma -holding eliquis Thank you for this consult cardiology will continue to follow along MD SANDRA Guzman DANIELLE M MD Feb 01, 2025 07:34
[2025-02-01 08:08] VITALS: BP 143/73; PULSE 99; RESP 17; TEMP 98.1
--- NOTE | 2025-02-01 09:32 | PN ---
SUBJECTIVE: A 44-year-old male who has had a prolonged hospital course. The patient initially admitted with endocarditis. The patient continues with the antibiotics. The patient is being seen by case management in regards to the long-term IV antibiotics and the patient is being seen as a followup visit for all the above. REVIEW OF SYSTEMS: GENERAL: He is feeling weak and tired. HEENT: No change in vision. No change in hearing. CARDIOVASCULAR: There is no current chest pain or palpitations. PULMONARY: No shortness of breath. GASTROINTESTINAL: The patient is tolerating a diet. MUSCULOSKELETAL: Complains of weakness. PHYSICAL EXAMINATION: VITAL SIGNS: Blood pressure is 143/73, pulse of 90s. GENERAL: Chronically ill male, much older than appearing. HEENT: Head is atraumatic. Pupils equal, roving to light. Oropharynx is without exudate. Nares clear. NECK: There is no JVP. There is no thyromegaly, no mass. CARDIOVASCULAR: Regular. There is no S3, S4 gallop. LUNGS: Coarse with equal thoracic movement. ABDOMEN: Soft, nondistended, nontender. EXTREMITIES: No clubbing, no cyanosis. NEUROLOGIC: He is awake. He is alert. LABORATORY DATA: BUN 27, creatinine 1.2. Hemoglobin 9.7, hematocrit 29. IMPRESSION: * Acute renal failure. * Endocarditis. * Diabetic nephropathy. * Anemia. PLAN: The patient remains on the antibiotics. The patient is being seen by case management in regards to placement. We will continue to follow closely. The patient's electrolytes have all been aggressively repleted. The patient is encouraged with fluid restriction for the hyponatremia. TID: [id number] RECEIPT: [id number]
[2025-02-01 12:35] VITALS: BP 137/66; PULSE 102; RESP 18; TEMP 98
[2025-02-01] MEDS ORDERED: NYST100033 PO (14:22)
--- NOTE | 2025-02-01 21:41 | PN ---
endocrinology progress note dos: 02/01/25 subjective: he is off insulin drip and on insulin injections. glucose control is improving and off iv steroid. hba1c 8.5% Past Medical History Patient History: Patient reports no known family medical history. ADDITIONAL PAST MEDICAL HISTORY: [Denies any past medical history, fatty liver by CT on 01/05/2025] SOCIAL HISTORY: [Patient smokes one pack of cigarettes daily but only5 times a week. Patient beers daily but also only5 times a week. Patient report s occasional use of both marijuana and cocaine. Patient denies any other illegal drug use. 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 Patient has poor access to health care due to lack of health insurance. Patient is typically independent of all his ADLs. Patient denies difficulty pain is bills. Patient lives with his daughter Hannah Jin] SURGICAL HISTORY: [Heart stent] Allergies: Coded Allergies: No Known Drug Allergies (Unverified Allergy, Unknown, 12/18/15) Scheduled Amlodipine Besylate (Amlodipine Besylate), 5 MG PO DAILY Atorvastatin Calcium (Lipitor), 40 MG PO HS Hydrochlorothiazide (Hydrochlorothiazide), 25 MG PO DAILY Lisinopril (Lisinopril), 20 MG PO DAILY Losartan Potassium (Losartan Potassium), 50 MG PO DAILY Methylprednisolone (Medrol), 4 MG PO AD Tamsulosin HCl (Flomax), 0.4 MG PO DAILY [Aspirin], 325 MG PO DAILY [Prasugrel Hcl], 10 MG PO DAILY Scheduled PRN Ketorolac Tromethamine (Ketorolac Tromethamine), 10 MG PO TID PRN for PAIN ASSESSMENT: DKA-resolved he is off insulin drip. hba1c 8.5% glucose control is improving now off iv dexamethasone. New onset Uncontrolled Diabetes mellitus type2, POA Severe sepsis, POA Urinary tract infection, POA Endocarditis and staph bacteremia Strep pharyngitis, POA Leukocytosis, POA Hyperlactatemia, POA Acute kidney injury, POA Thrombocytopenia, POA Elevated troponin, POA Substance abuse, POA, cocaine Alcohol dependence, POA Tobacco dependence, POA PLAN: continue lantus 15 units daily continue regular insulin 7 units qac before meals continue medium dose ssi keep glucose less than 180 mg/dl monitor glucose [id number]. patient will need insulin at discharge Vitals/Labs Vital Signs Date Time Temp Pulse Resp B/P (MAP) Pulse Ox O2 Delivery O2 Flow Rate FiO2 02/01/25 12:35 98.1 102 18 137/66 Room Air 02/01/25 08:08 91 02/01/25 06:55 21 02/01/25 04:12 0 Medications Current Medications Sodium Chloride 1,000 ml @ 125 mls/hr ONCE ONCE IV Last administered on 01/05/25at 00:13; Start 01/04/25 at 23:00; Stop 01/05/25 at 06:59; Status DC Aspirin 81 mg ONCE ONCE PO Last administered on 01/05/25at 00:14; Start 01/04/25 at 23:00; Stop 01/04/25 at 23:01; Status DC Ondansetron HCl 4 mg ONCE ONCE IVP Last administered on 01/05/25at 00:13; Start 01/04/25 at 23:00; Stop 01/04/25 at 23:01; Status DC Potassium Chloride 100 ml @ 50 mls/hr ONCE ONCE IV Last administered on 01/05/25at 00:13; Start 01/05/25 at 00:00; Stop 01/05/25 at 01:59; Status DC Potassium Chloride 100 ml @ 50 mls/hr ONCE ONCE IV Last administered on 01/05/25at 03:12; Start 01/05/25 at 00:00; Stop 01/05/25 at 01:59; Status DC Thiamine HCl 100 mg ONCE ONCE IVP Last administered on 01/05/25at 01:01; Start 01/05/25 at 00:00; Stop 01/05/25 at 00:01; Status DC Acetaminophen 500 mg STK-MED ONCE .ROUTE; Start 01/05/25 at 00:28; Stop 01/05/25 at 00:28; Status DC Cefepime HCl 1 gm ONCE ONCE IVPB Last administered on 01/05/25at 01:01; Start 01/05/25 at 01:00; Stop 01/05/25 at 01:02; Status DC Vancomycin HCl 750 mg ONCE ONCE IVPB Last administered on 01/05/25at 02:12; Start 01/05/25 at 01:00; Stop 01/05/25 at 01:02; Status DC Sodium Chloride 250 ml ONCE ONCE IVPB Last administered on 01/05/25at 02:12; Start 01/05/25 at 01:00; Stop 01/05/25 at 01:02; Status DC Acetaminophen 1,000 mg ONCE ONCE PO Last administered on 01/05/25at 00:30; Start 01/05/25 at 01:00; Stop 01/05/25 at 01:02; Status DC Aspirin 81 mg DAILY PO; Start 01/05/25 at 09:00; Stop 01/05/25 at 09:53; Status DC Nitroglycerin 0.4 mg AD PRN SL; Start 01/05/25 at 02:30; Stop 02/01/25 at 15:22; Status DC Aspirin 162 mg ONCE ONCE PO Last administered on 01/05/25at 03:06; Start 01/05/25 at 02:30; Stop 01/05/25 at 02:31; Status DC Insulin Human Regular INSULIN SLIDING SCAL... ACHS SQ Last administered on 01/05/25at 07:59; Start 01/05/25 at 07:30; Stop 01/05/25 at 09:57; Status DC Lactated Ringer's 3,429 ml @ 1,143 mls/hr ONCE ONCE IV Last administered on 01/05/25at 03:12; Start 01/05/25 at 02:30; Stop 01/05/25 at 05:29; Status DC Piperacillin Sod/ Tazobactam Sod 3.375 gm Q12H IV Last administered on 01/07/25at 02:45; Start 01/05/25 at 02:30; Stop 01/07/25 at 13:24; Status DC Potassium Chloride 100 ml @ 100 mls/hr AD PRN IV; Start 01/05/25 at 02:30; Stop 01/07/25 at 10:12; Status DC Potassium Chloride 10 meq AD PRN PO Last administered on 01/06/25at 17:16; Start 01/05/25 at 02:30; Stop 01/07/25 at 10:12; Status DC Potassium Chloride 10 meq AD PRN PO Last administered on 01/05/25at 22:15; Start 01/05/25 at 02:30; Stop 01/06/25 at 09:12; Status DC Acetaminophen 650 mg Q6H PRN PO Last administered on 01/30/25at 08:58; Start 01/05/25 at 02:30; Stop 02/01/25 at 15:22; Status DC Pantoprazole Sodium 40 mg DAILY PO Last administered on 01/25/25at 09:45; Start 01/05/25 at 09:00; Stop 01/26/25 at 04:16; Status DC Ondansetron HCl 4 mg Q6H PRN IV; Start 01/05/25 at 02:30; Stop 02/01/25 at 15:22; Status DC Morphine Sulfate 2 mg Q4H PRN IVP; Start 01/05/25 at 02:30; Stop 01/12/25 at 02:29; Status DC Hydralazine HCl 10 mg Q6H PRN IV; Start 01/05/25 at 02:30; Stop 01/05/25 at 09:53; Status DC Benzocaine 1 each Q4H PRN MM; Start 01/05/25 at 02:30; Stop 02/01/25 at 15:22; Status DC Magnesium Sulfate 50 ml @ 0 mls/hr PROTOCOL PRN IV Last administered on 01/31/25at 06:46; Start 01/05/25 at 02:30; Stop 02/01/25 at 15:22; Status DC Lactated Ringer's 1,000 ml @ 100 mls/hr Q10H IV Last administered on 01/05/25at 02:30; Start 01/05/25 at 02:30; Stop 01/05/25 at 09:51; Status DC Chlordiazepoxide HCl 25 mg Q8H PO Last administered on 01/10/25at 22:23; Start 01/05/25 at 02:30; Stop 01/11/25 at 11:39; Status DC Lorazepam 1 mg Q4H PRN IVP; Start 01/05/25 at 02:30; Stop 01/12/25 at 02:29; Status DC Pharmacy Profile Note 1 each PROTOCOL PRN MISC; Start 01/05/25 at 02:30; Stop 01/12/25 at 02:29; Status DC Nicotine 21 mg DAILY TD Last administered on 02/01/25at 09:46; Start 01/05/25 at 09:00; Stop 02/01/25 at 15:22; Status DC Sodium Chloride 1,000 ml @ 50 mls/hr Q20H IV Last administered on 01/09/25at 05:56; Start 01/05/25 at 10:00; Stop 01/10/25 at 01:33; Status DC Potassium Phosphate 250 ml @ 42 mls/hr PROTOCOL PRN IV; Start 01/05/25 at 10:00; Stop 02/01/25 at 15:22; Status DC Hydralazine HCl 5 mg Q6H PRN IV Last administered on 01/10/25at 22:24; Start 01/05/25 at 14:30; Stop 02/01/25 at 15:22; Status DC Doxycycline Hyclate 250 ml @ 125 mls/hr Q12H IV Last administered on 01/06/25at 09:30; Start 01/05/25 at 10:00; Stop 01/06/25 at 21:05; Status DC Potassium Chloride 40 meq ONCE ONCE PO Last administered on 01/05/25at 10:25; Start 01/05/25 at 10:00; Stop 01/05/25 at 10:01; Status DC Potassium Chloride 100 ml @ 50 mls/hr ONCE ONCE IV Last administered on 01/05/25at 10:25; Start 01/05/25 at 10:00; Stop 01/05/25 at 11:59; Status DC Dextrose 50 ml AD PRN IV; Start 01/05/25 at 10:00; Stop 02/01/25 at 15:22; Status DC Glucagon 1 mg AD PRN IM; Start 01/05/25 at 10:00; Stop 02/01/25 at 15:22; Status DC Insulin Human Regular INSULIN SLIDING SCAL... ACHS SQ Last administered on 01/06/25at 11:50; Start 01/05/25 at 11:30; Stop 01/06/25 at 16:43; Status DC Dexamethasone Sodium Phosphate 10 mg ONCE ONCE IVP Last administered on 01/05/25at 17:27; Start 01/05/25 at 13:30; Stop 01/05/25 at 14:03; Status DC Insulin Glargine 20 units HS SQ; Start 01/06/25 at 21:00; Stop 01/06/25 at 21:05; Status DC Potassium Chloride 10 meq AD PRN PO Last administered on 01/08/25at 23:35; Start 01/06/25 at 09:30; Stop 02/01/25 at 15:22; Status DC Dexamethasone Sodium Phosphate 40 mg DAILY ONCE IV; Start 01/07/25 at 09:00; Stop 01/06/25 at 13:27; Status DC Dexamethasone Sodium Phosphate 40 mg/Sodium Chloride 50 ml @ 100 mls/hr DAILY IV Last administered on 01/08/25at 09:34; Start 01/06/25 at 14:00; Stop 01/08/25 at 12:16; Status DC Insulin Human Regular INSULIN SLIDING SCAL... ACHS SQ Last administered on 01/06/25at 17:17; Start 01/06/25 at 17:00; Stop 01/07/25 at 13:32; Status DC Insulin Human Regular 100 unit/ Sodium Chloride 100 ml @ 0 mls/hr AD PRN IV Last administered on 01/09/25at 19:10; Start 01/06/25 at 19:30; Stop 01/10/25 at 06:00; Status DC Insulin Glargine 20 units HS SQ Last administered on 01/06/25at 21:33; Start 01/06/25 at 21:30; Stop 01/07/25 at 10:24; Status DC Doxycycline Hyclate 250 ml @ 125 mls/hr Q12H IV Last administered on 01/16/25at 10:13; Start 01/06/25 at 21:30; Stop 01/16/25 at 14:23; Status DC Chlordiazepoxide HCl 25 mg STK-MED ONCE .ROUTE; Start 01/07/25 at 02:35; Stop 01/07/25 at 02:41; Status DC Piperacillin Sod/ Tazobactam Sod 50 ml @ As Directed STK-MED ONCE .ROUTE; Start 01/07/25 at 02:39; Stop 01/07/25 at 02:41; Status DC Potassium Chloride 0 ml @ As Directed STK-MED ONCE IV; Start 01/07/25 at 07:28; Stop 01/07/25 at 07:31; Status DC Potassium Chloride 40 meq ONCE ONCE PO Last administered on 01/07/25at 09:44; Start 01/07/25 at 10:00; Stop 01/07/25 at 10:01; Status DC Potassium Chloride 100 ml @ 100 mls/hr AD PRN IV Last administered on 01/09/25at 06:26; Start 01/07/25 at 10:30; Stop 02/01/25 at 15:22; Status DC Potassium Chloride 10 meq AD PRN PO Last administered on 01/23/25at 15:27; Start 01/07/25 at 10:30; Stop 02/01/25 at 15:22; Status DC Potassium Chloride 10 meq AD PRN PO; Start 01/07/25 at 10:30; Stop 01/07/25 at 10:12; Status DC Insulin Glargine 15 units Q12H SQ Last administered on 01/09/25at 13:10; Start 01/07/25 at 21:30; Stop 01/09/25 at 23:18; Status DC Insulin Glargine 10 units ONCE ONCE SQ Last administered on 01/07/25at 10:40; Start 01/07/25 at 10:30; Stop 01/07/25 at 10:31; Status DC Thiamine HCl 300 mg DAILY ONCE IVP Last administered on 01/07/25at 10:39; Start 01/07/25 at 10:30; Stop 01/07/25 at 10:31; Status DC Multivitamins Therapeutic 1 tab DAILY PO Last administered on 02/01/25at 09:48; Start 01/07/25 at 10:30; Stop 02/01/25 at 15:22; Status DC Folic Acid 1 mg DAILY PO Last administered on 02/01/25at 09:49; Start 01/07/25 at 10:30; Stop 02/01/25 at 15:22; Status DC Triamcinolone Acetonide 1 APPLY TP BID BID TP Last administered on 01/31/25at 21:42; Start 01/07/25 at 11:00; Stop 02/01/25 at 15:22; Status DC Vancomycin HCl 1 each AD IV; Start 01/07/25 at 12:30; Stop 01/07/25 at 12:40; Status DC Cefazolin Sodium 2 gm Q12H IVPB Last administered on 01/16/25at 01:12; Start 01/07/25 at 13:30; Stop 01/16/25 at 14:43; Status DC Furosemide 20 mg Q12H IV Last administered on 01/10/25at 19:40; Start 01/07/25 at 16:00; Stop 01/11/25 at 00:56; Status DC Calcium Gluconate 1 gm/Sodium Chloride 100 ml @ 0 mls/hr AD PRN IV Last administered on 01/08/25at 23:32; Start 01/08/25 at 02:30; Stop 02/01/25 at 15:22; Status DC Dexamethasone Sodium Phosphate 20 mg/Sodium Chloride 52 ml @ 100 mls/hr DAILY IV Last administered on 01/27/25at 09:16; Start 01/09/25 at 09:00; Stop 01/27/25 at 19:04; Status DC Insulin Glargine 20 units Q12H SQ; Start 01/10/25 at 09:30; Stop 01/10/25 at 12:58; Status DC Lactated Ringer's 1,000 ml @ 125 mls/hr Q8H IV Last administered on 01/10/25at 13:07; Start 01/10/25 at 01:30; Stop 01/10/25 at 19:40; Status DC Lactated Ringer's 1,000 ml BOLUS ONCE IV Last administered on 01/10/25at 09:20; Start 01/10/25 at 07:30; Stop 01/10/25 at 07:31; Status DC Lidocaine HCl 100 mg STK-MED ONCE .ROUTE; Start 01/10/25 at 08:01; Stop 01/10/25 at 08:02; Status DC Propofol 200 mg STK-MED ONCE IV; Start 01/10/25 at 08:02; Stop 01/10/25 at 08:02; Status DC Glycopyrrolate 1 mg STK-MED ONCE .ROUTE; Start 01/10/25 at 08:02; Stop 01/10/25 at 08:02; Status DC Ketamine HCl 50 mg STK-MED ONCE .ROUTE; Start 01/10/25 at 08:03; Stop 01/10/25 at 08:03; Status DC Insulin Glargine 25 units Q12H SQ Last administered on 01/10/25at 22:19; Start 01/10/25 at 21:30; Stop 01/11/25 at 00:50; Status DC Insulin Human Regular INSULIN SLIDING SCAL... Q6H6 SQ Last administered on 01/11/25at 00:45; Start 01/10/25 at 18:00; Stop 01/11/25 at 00:50; Status DC Insulin Glargine 30 units Q12H SQ Last administered on 01/11/25at 10:50; Start 01/11/25 at 09:30; Stop 01/11/25 at 20:13; Status DC Insulin Human Regular INSULIN SLIDING SCAL... Q4H SQ Last administered on 01/11/25at 20:49; Start 01/11/25 at 02:00; Stop 01/11/25 at 23:59; Status DC Sodium Chloride 1,000 ml @ 75 mls/hr [id number] IV Last administered on 01/11/25at 01:00; Start 01/11/25 at 01:00; Stop 01/11/25 at 13:45; Status DC Sodium Bicarbonate 1,300 mg BID PO Last administered on 01/30/25at 08:58; Start 01/11/25 at 09:00; Stop 01/30/25 at 09:19; Status DC Insulin Human Regular 8 unit TIDAC SQ Last administered on 01/13/25at 19:47; Start 01/11/25 at 07:30; Stop 01/14/25 at 07:03; Status DC Lidocaine HCl 100 mg STK-MED ONCE .ROUTE; Start 01/11/25 at 07:00; Stop 01/11/25 at 07:00; Status DC Atropine Sulfate 1 mg STK-MED ONCE IVP; Start 01/11/25 at 07:00; Stop 01/11/25 at 07:00; Status DC Propofol 200 mg STK-MED ONCE IV; Start 01/11/25 at 07:00; Stop 01/11/25 at 07:00; Status DC Succinylcholine Chloride 200 mg STK-MED ONCE .ROUTE; Start 01/11/25 at 07:00; Stop 01/11/25 at 07:00; Status DC Ketamine HCl 50 mg STK-MED ONCE .ROUTE; Start 01/11/25 at 07:00; Stop 01/11/25 at 07:01; Status DC Glycopyrrolate 1 mg STK-MED ONCE .ROUTE; Start 01/11/25 at 07:01; Stop 01/11/25 at 07:01; Status DC Sodium Chloride 10 ml STK-MED ONCE .ROUTE; Start 01/11/25 at 07:01; Stop 01/11/25 at 07:01; Status DC Phenylephrine HCl 10 mg STK-MED ONCE IV; Start 01/11/25 at 07:01; Stop 01/11/25 at 07:01; Status DC Midazolam HCl 2 mg STK-MED ONCE .ROUTE; Start 01/11/25 at 07:08; Stop 01/11/25 at 07:08; Status DC Ondansetron HCl 4 mg STK-MED ONCE .ROUTE; Start 01/11/25 at 07:34; Stop 01/11/25 at 07:35; Status DC Chlordiazepoxide HCl 25 mg Q8H PRN PO; Start 01/11/25 at 12:00; Stop 01/12/25 at 02:29; Status DC Heparin Sodium/ Dextrose 250 ml @ 0 mls/hr PROTOCOL IV Last administered on 01/17/25at 16:09; Start 01/11/25 at 14:30; Stop 01/18/25 at 13:28; Status DC Fluconazole 200 mg ONCE ONCE PO Last administered on 01/11/25at 15:18; Start 01/11/25 at 15:30; Stop 01/11/25 at 15:31; Status DC Fluconazole 200 mg DAILY PO Last administered on 01/25/25at 09:44; Start 01/12/25 at 09:00; Stop 01/25/25 at 16:12; Status DC Lactobacillus Rhamnosus 1 each DAILY PO Last administered on 02/01/25at 09:46; Start 01/12/25 at 09:00; Stop 02/01/25 at 15:22; Status DC Insulin Glargine 30 units DAILY SQ Last administered on 01/12/25at 11:25; Start 01/12/25 at 09:00; Stop 01/14/25 at 07:03; Status DC Insulin Human Regular INSULIN SLIDING SCAL... Q4H SQ Last administered on 01/18/25at 16:59; Start 01/11/25 at 23:59; Stop 01/18/25 at 19:33; Status DC Heparin Sodium (Porcine) 4,000 unit ONCE ONCE IV Last administered on 01/12/25at 22:36; Start 01/12/25 at 22:30; Stop 01/12/25 at 22:31; Status DC Iohexol 35,000 mg STK-MED ONCE IV; Start 01/13/25 at 12:56; Stop 01/13/25 at 12:57; Status DC Insulin Glargine 20 units DAILY SQ Last administered on 01/23/25at 09:41; Start 01/14/25 at 09:00; Stop 01/23/25 at 21:37; Status DC Insulin Human Regular 5 unit TIDAC SQ Last administered on 01/28/25at 16:50; Start 01/14/25 at 07:30; Stop 01/29/25 at 06:36; Status DC Aspirin 81 mg DAILY PO Last administered on 01/25/25at 09:45; Start 01/16/25 at 09:00; Stop 01/26/25 at 10:14; Status DC Pharmacy Profile Note 1 each ONCE MISC; Start 01/16/25 at 14:30; Stop 01/16/25 at 15:12; Status DC Dexamethasone Sodium Phosphate 10 mg STK-MED ONCE .ROUTE; Start 01/16/25 at 14:38; Stop 01/16/25 at 14:38; Status DC Dexamethasone Sodium Phosphate 10 mg STK-MED ONCE .ROUTE; Start 01/16/25 at 14:39; Stop 01/16/25 at 14:40; Status DC Cefazolin Sodium 2 gm Q8H IVPB Last administered on 01/17/25at 05:07; Start 01/16/25 at 21:30; Stop 01/17/25 at 13:22; Status DC Gentamicin Sulfate/Sodium Chloride 100 ml @ 200 mls/hr Q12H IV Last administered on 01/17/25at 16:00; Start 01/16/25 at 15:30; Stop 01/18/25 at 03:39; Status DC Acetaminophen 650 mg Q6H PRN PO Last administered on 02/01/25at 04:04; Start 01/16/25 at 17:30; Stop 02/01/25 at 15:22; Status DC Nafcillin Sodium 2 gm Q6H6 IV Last administered on 01/25/25at 12:18; Start 01/17/25 at 18:00; Stop 01/25/25 at 16:12; Status DC Melatonin 20 mg ONCE ONCE PO Last administered on 01/17/25at 22:00; Start 01/17/25 at 21:30; Stop 01/17/25 at 21:37; Status DC Gentamicin Sulfate/Sodium Chloride 100 ml @ 200 mls/hr Q12H IV Last administered on 01/20/25at 05:38; Start 01/18/25 at 04:00; Stop 01/20/25 at 06:41; Status DC Nystatin 100,000 UNITS 1 ML TO E... QID PO Last administered on 01/31/25at 21:41; Start 01/18/25 at 09:00; Stop 02/01/25 at 15:22; Status DC Apixaban 10 mg BID PO; Start 01/18/25 at 21:00; Stop 01/18/25 at 13:52; Status DC Apixaban 10 mg BID PO Last administered on 01/21/25at 08:45; Start 01/18/25 at 21:00; Stop 01/21/25 at 16:00; Status DC Apixaban 5 mg BID PO; Start 01/25/25 at 21:00; Stop 01/21/25 at 16:00; Status DC Insulin Human Regular INSULIN SLIDING SCAL... ACHS SQ Last administered on 01/28/25at 21:07; Start 01/18/25 at 21:00; Stop 01/28/25 at 22:15; Status DC Gentamicin Sulfate 150 mg/ Sodium Chloride 100 ml @ 100 mls/hr Q12H IV Last administered on 01/21/25at 16:00; Start 01/20/25 at 16:00; Stop 01/22/25 at 03:27; Status DC Iron Sucrose 300 mg Q24H IVP; Start 01/21/25 at 15:00; Stop 01/21/25 at 15:29; Status DC Iron Sucrose 300 mg/Sodium Chloride 250 ml @ 166.667 mls/hr Q24H IV; Start 01/21/25 at 16:00; Stop 01/21/25 at 17:22; Status DC Apixaban 5 mg BID PO Last administered on 01/22/25at 09:02; Start 01/21/25 at 21:00; Stop 01/23/25 at 10:57; Status DC Iron Sucrose 300 mg/Sodium Chloride 250 ml @ 166.667 mls/hr Q24H IV; Start 01/21/25 at 19:30; Stop 01/21/25 at 20:57; Status DC Iron Sucrose 300 mg/Sodium Chloride 250 ml @ 166.667 mls/hr Q24H IV Last administered on 01/23/25at 20:56; Start 01/21/25 at 21:00; Stop 01/23/25 at 22 :29; Status DC Melatonin 10 mg HS PRN PO Last administered on 01/31/25at 23:29; Start 01/21/25 at 21:30; Stop 02/01/25 at 15:22; Status DC Gentamicin Sulfate 90 mg/ Sodium Chloride 50 ml @ 100 mls/hr Q8H IV; Start 01/22/25 at 03:30; Stop 01/22/25 at 03:30; Status DC Gentamicin Sulfate 90 mg/ Sodium Chloride 50 ml @ 100 mls/hr Q8H IV Last administered on 01/23/25at 12:54; Start 01/22/25 at 04:00; Stop 01/23/25 at 20:03; Status DC Apixaban 5 mg BID PO Last administered on 01/27/25at 09:01; Start 01/23/25 at 21:00; Stop 01/27/25 at 10:16; Status DC Tramadol HCl 50 mg ONCE ONCE PO Last administered on 01/23/25at 18:44; Start 01/23/25 at 19:00; Stop 01/23/25 at 19:01; Status DC Gentamicin Sulfate/Sodium Chloride 100 ml @ 200 mls/hr BID@0600,1800 IV Last administered on 01/25/25at 05:48; Start 01/24/25 at 06:00; Stop 01/25/25 at 16:12; Status DC Insulin Glargine 15 units DAILY SQ Last administered on 01/31/25at 08:57; Start 01/24/25 at 09:00; Stop 02/01/25 at 15:22; Status DC Acetaminophen/ Hydrocodone Bitart 1 tab ONCE ONCE PO Last administered on 01/24/25at 02:51; Start 01/24/25 at 02:30; Stop 01/24/25 at 02:33; Status DC Pharmacy Profile Note 1 each ONCE MISC; Start 01/25/25 at 07:30; Stop 01/25/25 at 07:26; Status DC Furosemide 20 mg BIDPC IV Last administered on 01/26/25at 18:06; Start 01/25/25 at 10:00; Stop 01/26/25 at 18:01; Status DC Lidocaine 1 patch DAILY TP Last administered on 02/01/25at 09:46; Start 01/25/25 at 12:00; Stop 02/01/25 at 15:22; Status DC Pharmacy Profile Note 1 each ONCE MISC; Start 01/25/25 at 16:30; Stop 01/25/25 at 16:12; Status DC Linezolid 300 ml @ 300 mls/hr Q12H IV Last administered on 02/01/25at 09:46; Start 01/25/25 at 20:30; Stop 02/01/25 at 15:22; Status DC Pantoprazole Sodium 40 mg Q24H IVP Last administered on 02/01/25at 04:04; Start 01/26/25 at 04:30; Stop 02/01/25 at 15:22; Status DC Iohexol 35,000 mg STK-MED ONCE IV; Start 01/26/25 at 16:37; Stop 01/26/25 at 16:37; Status DC Dexamethasone Sodium Phosphate 10 mg/Sodium Chloride 51 ml @ 100 mls/hr DAILY IV Last administered on 01/28/25at 13:03; Start 01/28/25 at 09:00; Stop 01/29/25 at 10:57; Status DC Insulin Human Regular INSULIN SLIDING SCAL... ACHS SQ Last administered on 01/31/25at 17:08; Start 01/29/25 at 07:30; Stop 02/01/25 at 15:22; Status DC Insulin Human Regular 7 unit TIDAC SQ Last administered on 02/01/25at 07:27; Start 01/29/25 at 07:30; Stop 02/01/25 at 15:22; Status DC Ipratropium [place] 0.5 MG Q6H PRN IH; Start 01/29/25 at 11:00; Stop 02/01/25 at 15:22; Status DC Dexamethasone Sodium Phosphate 10 mg DAILY IVP Last administered on 02/01/25at 09:50; Start 01/29/25 at 11:00; Stop 02/01/25 at 15:22; Status DC Furosemide 40 mg DAILY PO Last administered on 02/01/25at 09:49; Start 01/30/25 at 11:35; Stop 02/01/25 at 15:22; Status DC Benzonatate 100 mg Q8H PRN PO Last administered on 01/31/25at 05:37; Start 01/30/25 at 15:00; Stop 02/01/25 at 15:22; Status DC Guaifenesin/ Dextromethorphan 5 ml Q6H PRN PO; Start 01/30/25 at 15:00; Stop 02/01/25 at 15:22; Status DC MAITE RESTREPO MD Feb 01, 2025 21:41
--- NOTE | 2025-02-02 04:14 | PN ---
SUBJECTIVE: ____ endocarditis and the treatment with IV antibiotics. The patient has no hemodynamic or precaution from the subacute bacterial endocarditis and no complications. He appears to be improving with antibiotics, so the plan is to continue 6 weeks of antibiotics and then reassess. We will be available for any surgical need. TID: [id number] RECEIPT: [id number]
== END 2025-02-01 15:15 | disposition home or self-care (01) | DRG 871 ==
LOC: EDH 21:53 → EDHIP 21:54 → 2DH 01-06 15:04 → UNDODISIN 01-06 18:10 → 2CH 01-06 20:14 → 2AH 01-11 16:37 → 4BH 01-13 23:22
PROVIDERS: ADMIT Internal Medicine; ATTEND Internal Medicine
PROC: 30233R1 Transfusion of Nonautologous Platelets into Peripheral Vein, Percutaneous Approach (ICD-10-PCS; 2025-01-05)
PROC: 0DJ08ZZ Inspection of Upper Intestinal Tract, Via Natural or Artificial Opening Endoscopic (ICD-10-PCS; principal; 2025-01-11)
PROC: 5A09357 Assistance with Respiratory Ventilation, Less than 24 Consecutive Hours, Continuous Positive Airway Pressure (ICD-10-PCS; 2025-01-14)
DX: A41.02 Sepsis due to Methicillin resistant Staphylococcus aureus (principal); I21.A1 Myocardial infarction type 2; R65.21 Severe sepsis with septic shock; I33.0 Acute and subacute infective endocarditis; I50.31 Acute diastolic (congestive) heart failure; J10.00 Influenza due to other identified influenza virus with unspecified type of pneumonia; D69.3 Immune thrombocytopenic purpura; K80.00 Calculus of gallbladder with acute cholecystitis without obstruction; N17.9 Acute kidney failure, unspecified; E87.1 Hypo-osmolality and hyponatremia; F10.239 Alcohol dependence with withdrawal, unspecified; B37.81 Candidal esophagitis; N10 Acute pyelonephritis; Q24.5 Malformation of coronary vessels; I13.0 Hypertensive heart and chronic kidney disease with heart failure and stage 1 through stage 4 chronic kidney disease, or unspecified chronic kidney disease; Z20.822 Contact with and (suspected) exposure to COVID-19; N18.9 Chronic kidney disease, unspecified; J02.0 Streptococcal pharyngitis; I35.8 Other nonrheumatic aortic valve disorders; R16.2 Hepatomegaly with splenomegaly, not elsewhere classified; B96.1 Klebsiella pneumoniae [K. pneumoniae] as the cause of diseases classified elsewhere; I25.10 Atherosclerotic heart disease of native coronary artery without angina pectoris; E87.6 Hypokalemia; E11.65 Type 2 diabetes mellitus with hyperglycemia; E66.01 Morbid (severe) obesity due to excess calories; K76.0 Fatty (change of) liver, not elsewhere classified; K74.60 Unspecified cirrhosis of liver; B96.89 Other specified bacterial agents as the cause of diseases classified elsewhere; I51.3 Intracardiac thrombosis, not elsewhere classified; L73.9 Follicular disorder, unspecified; E11.22 Type 2 diabetes mellitus with diabetic chronic kidney disease; E83.42 Hypomagnesemia; E86.1 Hypovolemia; K22.9 Disease of esophagus, unspecified; E88.09 Other disorders of plasma-protein metabolism, not elsewhere classified; L02.821 Furuncle of head [any part, except face]; B95.7 Other staphylococcus as the cause of diseases classified elsewhere; R62.7 Adult failure to thrive; D64.9 Anemia, unspecified; E78.5 Hyperlipidemia, unspecified; D69.59 Other secondary thrombocytopenia; G47.30 Sleep apnea, unspecified; E87.8 Other disorders of electrolyte and fluid balance, not elsewhere classified; F14.129 Cocaine abuse with intoxication, unspecified; F17.210 Nicotine dependence, cigarettes, uncomplicated; Z68.35 Body mass index [BMI] 35.0-35.9, adult; Z79.4 Long term (current) use of insulin; Z79.82 Long term (current) use of aspirin; Z95.5 Presence of coronary angioplasty implant and graft
CPT/HCPCS: 36415; 36556; 36600; 43235; 70470; 71045; 71270; 74176; 76700; 76770; 76882; 78226; 80048; 80053; 80170; 80305; 81001; 82010; 82140; 82150; 82435; 82550; 82570; 82803; 82947; 82948; 83036; 83540; 83550; 83605; 83690; 83735; 83880; 83930; 83935; 84100; 84132; 84145; 84156; 84295; 84300; 84443; 84484; 85014; 85018; 85025; 85027; 85378; 85610; 85730; 86701; 86850; 86900; 86901; 87040; 87086; 87186; 87390; 87426; 87804; 87880; 93005; 93306; 93308; 93312; 93325; 93356; 93931; 93971; 94660; 94664; 96365; 96366; 96367; 96368; 96375; 99291; A4357; A4606; A9537; C1894; G0378; J0330; J0360; J0461; J0612; J0692; J1100; J1580; J1644; J1756; J1815; J1940; J2003; J2020; J2250; J2371; J2405; J2470; J2543; J2704; J3411; J3475; J3480; J3490; J7030; J7050; J7120; P9034; Q9967; A4215; A4221; A4222; A4223; A4663; J0690; J3370

== ENCOUNTER 2025-02-14 20:30 | Emergency (ER) | payer SELFPAY ==
[~2025-02-14] VITALS: Ht 180.3 cm; Wt 108.4 kg
[~2025-02-14 20:30] MED LIST changes: +ACET-2247 PO; -AMLO-257 PO; -ATOR40TA69 PO; -Aspirin PO; +Benzocaine/Menth/Cetylpyrd Cl MM; +FOLI1 PO; +FURO40TA7 PO; -HYDR25TA PO; +INSU100V3 IJ; +INSU3INS3 SQ; +IPRNEB IH; -KETO10TA2 PO; -LISI20TA24 PO; -LOSA50TA64 PO; +MELA5TAB66 PO; -METH4TAB3 PO; +MVIT PO; +NYST100033 PO; +Nitroglycerin 0.4MG Sl Tab SL; -Prasugrel Hcl PO; -TAMS-1 PO; +TRIA15CR45 TP; +[UNRECOGNIZED DRUG - CODE] IV
--- NOTE | 2025-02-14 20:41 | ERN ---
ED Note History of Present Illness Stated Complaint: LEFT KNEE PAIN AND SWELLING Chief Complaint: Knee Injury/Swelling Time Seen by MD: 20:31 Time Seen by Midlevel: 21:40 Dictation: Mr. Jin is a 44-year-old male with history of morbid obesity, CAD, and type 2 diabetes with poor control who presented to the emergency department this evening for his recurring antibiotic infusion (vegetation aortic valve). He mentions that he has increased swelling and pain to the left knee and left lower leg. He states that he had similar symptoms a month ago with bruising and they discontinued his anticoagulants. He states he had ultrasound at that time and was negative for occlusive thrombosis. He denies having fever, chills, shortness of breath, cough, chest pain, palpitations, abdominal pain, nausea, vomiting diarrhea, dysuria headache, or dizziness. He states that he we will be continuing IV antibiotic therapy nightly until after his next DRAKE to be performed on February 28. Allergies: Coded Allergies: No Known Drug Allergies (Unverified Allergy, Unknown, 12/18/15) Home Meds Active Scripts Nystatin (Nystatin) 100,000 Unit/Ml Oral.susp, 5 ML PO QID for 20 Days, #200 ML 0 Refills Prov:ARMANDO OTT MD 02/01/25 Insulin Regular, Human (Humulin R) 100 Unit/Ml Vial, 2 - IJ ACHS for 30 Days, #30 VIAL Prov:ARMANDO OTT MD 01/31/25 Insulin Glargine,Hum.rec.anlog (Lantus Solostar) 100 Unit/Ml (3 Ml) Insuln.pen, 20 UNIT SQ HS for 30 Days, #5 ML 0 Refills Prov:ARMANDO OTT MD 01/31/25 Furosemide (Lasix 40Mg Tab) 40 Mg Tablet, 40 MG PO DAILY for 30 Days, #30 TAB Prov:ARMANDO OTT MD 01/31/25 Ipratropium [place] (Atrovent Neb Soln) 0.2 Mg/Ml (0.02 %) Soln, 0.2 MG IH Q6H PRN for SHORTNESS OF BREATH for 30 Days, #30 ML Prov:ARMANDO OTT MD 01/31/25 Linezolid (Zyvox) 600 Mg/300 Ml Ivsoln, 600 MG IV [id number] PRN for infection for 42 Days, #84 ML 0 Refills Prov:ARMANDO OTT MD 01/31/25 Melatonin (Melatonin) 5 Mg Tablet, 10 MG PO HS PRN for INSOMNIA, #30 TAB Prov:ARMANDO OTT MD 01/31/25 Multivitamins,Therapeutic (Multivitamin Tablet) 400 Mcg Tab, 1 TAB PO DAILY for 30 Days, #30 TAB Prov:ARMANDO OTT MD 01/31/25 [Nitroglycerin 0.4MG Sl Tab] 0.4 MG TAB.SUBL No Conflict Check, 0.4 MG SL AD PRN for CHEST PAIN for 30 Days, #30 - 0 Refills Prov:ARMANDO OTT MD 01/31/25 Triamcinolone Acetonide (Kenalog/Aristocort) 0.1 % Cream.gm., 0.1 APPL TP BID for 30 Days, #30 APPLIC 0 Refills Prov:ARMANDO OTT MD 01/31/25 Folic Acid (Folvite) 1 Mg Tab, 1 MG PO DAILY for 30 Days, #30 TAB Prov:ARMANDO OTT MD 01/31/25 [Benzocaine/Menth/Cetylpyrd Cl] 1 EACH LOZENGE No Conflict Check, 1 EACH MM Q4H PRN for SORE THROAT for 30 Days, #120 - 0 Refills Prov:ARMANDO OTT MD 01/31/25 Acetaminophen (Tylenol) 325 Mg Tablet, 650 MG PO Q6H PRN for TEMPERATURE GREATER THAN 101.5 for 30 Days, #60 TAB Prov:ARMANDO OTT MD 01/31/25 Past Medical History Past Medical History: CAD Surgical History: Other Surgical History Other: HEART STENT FOR CAD Family History: Negative Social History: Drugs, ETOH RN Note Reviewed/Agreed w/PFSH: Yes Review of System Dictation REVIEW OF SYSTEMS: CONSTITUTIONAL: Patient denies fevers, chills, sweats and weight changes. EYES: Patient denies any visual symptoms. EARS, NOSE, AND THROAT: No difficulties with hearing. No symptoms of rhinitis or sore throat. CARDIOVASCULAR: Patient denies chest pains, palpitations, orthopnea and paroxysmal nocturnal dyspnea. RESPIRATORY: No dyspnea on exertion, no wheezing or cough. GI: No nausea, vomiting, diarrhea, constipation, abdominal pain, hematochezia or melena. : No urinary hesitancy or dribbling. No nocturia or urinary frequency. No abnormal urethral discharge. MUSCULOSKELETAL: Reports pain and swelling of the left knee and left lower leg. NEUROLOGIC: No chronic headaches, no seizures. Patient denies numbness, tingling or weakness. PSYCHIATRIC: Patient denies problems with mood disturbance. No problems with anxiety. ENDOCRINE: No excessive urination or excessive thirst. DERMATOLOGIC: Patient denies any rashes or skin changes. Initial Vital Sign VS Vital Signs Date Time Temp Pulse Resp B/P (MAP) Pulse Ox O2 Delivery O2 Flow Rate FiO2 02/14/25 20:31 97.9 108 20 129/64 97 Room Air 0 Physical Exam Dictation Vital signs: Reviewed. Afebrile Constitutional: No acute distress. Non-toxic appearing. Head/Face: Normocephalic, atraumatic. Eyes: Periorbital areas with no swelling, redness, or edema. Lids and lashes are normal. Conjunctival injection is absent. Sclera anicteric. Pupils equal, round, reactive to light. ENT: Pinnas intact and no signs of trauma or erythema. Ear canals clear and no discharge. TMs no erythema. No nasal discharge or bleeding noted. Oropharynx with no exudate, redness, swelling, masses, exudates, or evidence of obstruction. Uvula midline. Mucous membranes moist. Neck: Trachea midline, no masses palpated, and no cervical lymphadenopathy. No swelling. Supple, full range of motion. Chest/Axilla: No tenderness, no crepitus, no paradoxical movement, no retracti ons. Cardiovascular: Regular rate, regular rhythm, no murmur, no gallops. Symmetric pulses. Normotensive. Respiratory: Respirations even and unlabored. Lung sounds clear; no wheezes, rales or rhonchi. Room air SpO2 98% Gastrointestinal: Obese No distention is appreciated. Bowel sounds are normal. No mass or organomegaly . There is no tenderness. No rebound. No rigidity. No voluntary or involuntary guarding. No Dominguez's sign. Neurological: Normal speech, gross motor function intact, gross sensory funct ion intact. No focal weakness/Paresthesia. Musculoskeletal/Extremities: All extremities have full range of motion, there is nonpitting edema of the left lower leg in the knee. Tenderness upon palpation behind the knee. No bony deformity or crepitus noted Symmetric pulses. Integumentary: Intact. Skin is normal color, warm and dry. Cap refill less than 3 seconds. Results (Laboratory/Radiology) Laboratory/Radiology Laboratory Tests Test 02/14/25 20:43 White Blood Count 14.0 K/uL (4.8-10.8) H Red Blood Count 2.88 MIL/uL (4.50-6.20) L Hemoglobin 8.9 g/dL (14.0-18.0) L Hematocrit 27.5 % (42-54) L Mean Corpuscular Volume 95.5 fL (79-99) Mean Corpuscular Hemoglobin 30.9 pg (27.0-33.0) Mean Corpuscular Hemoglobin Concent 32.4 g/dL (32.0-36.0) Red Cell Distribution Width 14.6 % (11.0-15.5) Platelet Count 506 K/uL (130-400) H Mean Platelet Volume 8.8 fL (7.5-10.5) Immature Granulocyte % (Auto) 1.0 % (0-1) Neutrophils (%) (Auto) 70.8 % (40.0-77.0) Lymphocytes (%) (Auto) 17.1 % (21.0-51.0) L Monocytes (%) (Auto) 9.0 % (3.0-13.0) Eosinophils (%) (Auto) 1.2 % (0.0-8.0) Basophils (%) (Auto) 0.9 % (0.0-5.0) Neutrophils # (Auto) 9.9 K/uL (1.8-7.7) H Lymphocytes # (Auto) 2.4 K/uL (1.0-4.8) Monocytes # (Auto) 1.3 K/uL (0.1-1.0) H Eosinophils # (Auto) 0.17 K/uL (0.00-0.70) Basophils # (Auto) 0.12 K/uL (0.00-0.20) Absolute Immature Granulocyte (auto 0.14 K/uL (0-1) Nucleated Red Blood Cells 0.0 % (0.0-0.19) Sodium Level 129 mmol/L (136-145) L Potassium Level 3.0 mmol/L (3.5-5.1) *L Chloride Level 96 mmol/L (101-111) L Carbon Dioxide Level 22 mmol/L (21-32) Blood Urea Nitrogen 20 mg/dL (7-18) H Creatinine 1.7 mg/dL (0.5-1.3) H Glomerular Filtration Rate Calc 50 mL/min (>90) Random Glucose 142 mg/dL (70-105) H Lactic Acid Level 2.4 mmol/L (0.8-2.5) Total Calcium 8.4 mg/dL (8.5-10.1) L Labs Reviewed?: Yes ED Course ED Course Orders Procedure Category Date Status Time Hydromorphone 0.5mg PHA 02/14/25 Complete Syg (Dilaudid 0.5mg 21:00 Cbc With Differential LAB 02/14/25 Complete 20:43 Basic Metabolic Panel LAB 02/14/25 Complete 20:43 Lactic Acid LAB 02/14/25 Complete 20:43 Us Venous Doppler US 02/14/25 Resulted Unilateral 20:50 Potassium Bicarb/Cit PHA 02/14/25 Complete Ac 25meq (K-Lyte Ta 22:00 Current Medications Medications (Trade) Dose Ordered Sig/Asya Route PRN Reason Start Time Stop Time Status Last Admin Dose Admin Hydromorphone HCl (DiLAUDid 0.5MG INJ) 0.5 mg ONCE ONCE IVP 02/14/25 21:00 02/14/25 21:01 DC 02/14/25 20:52 Potassium Bicarbonate (K-Lyte Tablet Eff 25 Meq Tablet.eff) 50 meq ONCE ONCE PO 02/14/25 22:00 02/14/25 22:01 DC Vital Signs Date Time Temp Pulse Resp B/P (MAP) Pulse Ox O2 Delivery O2 Flow Rate FiO2 02/14/25 20:31 97.9 108 20 129/64 97 Room Air 0 Uneventful ED course. He received dose Dilaudid for discomfort. He denies chest pain or shortness of breath. Laboratory findings as noted below WBCs 14.0 and lactic acid 2.4, H less H 8.9/27.5, platelet count 506, glucose 14 K3.0, Na/Cl 129/96, BUN/CR 20/1.7, and Ca 8.4. Ultrasound venous of the left lower extremity negative for DVT. Noted ruptured Matthews cyst. While in the emergency department he received dose Dilaudid as well as KCl 50 mEq use. Ice application as well as Yobany wrap applied to the left knee. Patient adamant he will not stay in the hospital but that he will return to the hospital if there is any worsening of symptoms or concerns. He has a standing appointment for IV infusion every evening. Medical Decision Making MDM MDM: Differential diagnosis: DVT, Matthews cyst, sepsis Rationale: Tests considered and ordered secondary to shared decision making include: Lab, ultrasound Previous outside records reviewed: Old ER visits. Risk of complication and/or morbidity or mortality of patient management: None Medications-Per medication reconciliation Need for hospitalization: Patient does not meet criteria for hospitalization. Need for emergency major/minor surgery: No There are no social concerns with this patient. Prescription drug management Tylenol 3. Prescriptions will include symptomatic care Patient's prior external medical records from other ER visits were reviewed by me as indicated. Prior testing and results from previous visits were reviewed. Prior tests were taken into account with medical decision making and resource utilization, independent historian/historians were used to obtain complete medical history. I independently interpreted the test that were performed, results were reviewed by me and considered findings on radiology if ordered. Medical management and examination interpretation discussions were had by me with other qualified healthcare professionals as indicated for the patient's care. DX & DISP Disposition: Discharge Departure Impression: Primary Impression: Knee pain Additional Impressions: Matthews's cyst, ruptured, Hypokalemia Condition: Stable Scripts Acetaminophen with Codeine (Acetaminophen-Cod #3 Tablet) 300 Mg-30 Mg Tablet 1 TAB PO q8 hours PRN PRN for pain, #12 TAB 0 Refills Prov: DAT GLOVER NP 02/14/25 Additional Instructions: Avoid excess of the exercise, gentle movement/stretching/range of motion exercise. Focus on RICE; rest, ice application times 15-20 minutes every 2-3 hours., elevation, and compression/Yobany wrap. May take Tylenol No. 3 every 8 hours as needed for severe pain. Monitor for fever or worsening of symptoms. Follow up tomorrow when you have your IV infusion of antibiotics. Return to the emergency department immediately for concerns or worsening of symptoms. Referrals: SELF,REFERRAL (PCP) Time of Disposition: 22:13 DAT GLOVER NP Feb 14, 2025 20:41
[2025-02-14] MEDS: hydroMORPHone 0.5 MG SYG (0.5MG/0.5ML) IVP ONE (20:52)
[2025-02-14 21:11] LABS: BASOPHILS # (AUTO) 0.12 K/uL (0.00-0.20); BASOPHILS % (AUTO) 0.9 % (0.0-5.0); EOSINOPHILS # (AUTO) 0.17 K/uL (0.00-0.70); EOSINOPHILS % (AUTO) 1.2 % (0.0-8.0); HEMATOCRIT 27.5 % (42-54); IMMATURE GRANULOCYTE ABSOLUTE 0.14 K/uL (0-1); LYMPHOCYTES # (AUTO) 2.4 K/uL (1.0-4.8); LYMPHOCYTES % (AUTO) 17.1 % (21.0-51.0); MEAN CORPUSCULAR HEMOGLOBIN 30.9 pg (27.0-33.0); MEAN CORPUSCULAR HGB CONC 32.4 g/dL (32.0-36.0); MEAN CORPUSCULAR VOLUME 95.5 fL (79-99); MONOCYTES # (AUTO) 1.3 K/uL (0.1-1.0); NEUTROPHILS # (AUTO) 9.9 K/uL (1.8-7.7); NEUTROPHILS % (AUTO) 70.8 % (40.0-77.0); PLATELET COUNT (AUTO) 506 K/uL (130-400); RED BLOOD CELL COUNT(AUTO) 2.88 MIL/uL (4.50-6.20); RED CELL DISTRIBUTION WIDTH 14.6 % (11.0-15.5)
[2025-02-14 21:16] LABS: CREATININE 1.7 mg/dL (0.5-1.3)
--- NOTE | 2025-02-14 21:29 | HMCIMG ---
US VENOUS DOPPLER UNILATERAL INDICATION: Swelling. LEFT knee pain/swelling hx thrombus TECHNIQUE: US VENOUS DOPPLER UNILATERAL Real-time venous Doppler ultrasound was performed using B mode, color flow and spectral analysis. FINDINGS: The visualized greater saphenous junction, common femoral, deep femoral, superficial femoral, popliteal and posterior tibial veins demonstrate normal compressibility and flow. No DVT is identified. Complex fluid collection seen in the left popliteal/medial calf measuring 18 x 5.5 x 8.4 cm concerning for complex/ruptured Matthews's cyst versus hematoma. Correlate clinically. Short-term follow-up ultrasound is recommended. IMPRESSION: No evidence of DVT in the visualized left extremity. Complex fluid collection seen in the left popliteal/medial calf measuring 18 x 5.5 x 8.4 cm concerning for complex/ruptured Matthews's cyst versus hematoma. Correlate clinically. Short-term follow-up ultrasound is recommended.
[2025-02-14] MEDS ORDERED: ACET-2079 PO (22:11)
[2025-02-14] MEDS: PoTASSium BIcarbonate/CIT AC 25 MEQ TABLET.EFF PO ONE (22:17)
--- NOTE | 2025-02-14 22:17 | NUR ---
ICE PACK AND DARRELL WRAP TO LEFT KNEE
[2025-02-14 22:28] VITALS: BP 122/62; PULSE 92; RESP 16; TEMP 98; O2SAT 97
== END 2025-02-14 22:32 | disposition home or self-care (01) ==
LOC: EDH 20:30
DX: M66.0 Rupture of popliteal cyst (principal); Z98.890 Other specified postprocedural states; E87.6 Hypokalemia; I25.10 Atherosclerotic heart disease of native coronary artery without angina pectoris; E66.9 Obesity, unspecified; E11.9 Type 2 diabetes mellitus without complications; Z79.899 Other long term (current) drug therapy; Z95.5 Presence of coronary angioplasty implant and graft; M25.562 Pain in left knee
CPT/HCPCS: 99285; 96374; 93971; 80048; 85025; 83605; 36415; J1171

== ENCOUNTER 2025-02-23 18:22 | Inpatient (IN) | payer SELFPAY ==
[~2025-02-23] VITALS: Ht 177.8 cm; Wt 101.2 kg
[~2025-02-23 18:22] MED LIST changes: +ACET-2079 PO; +ALBUMIN (HUMAN) 25% 50 ML IV ONE
--- NOTE | 2025-02-23 18:36 | EKG ---
[facility] Test Date: 2025-02-23 Test Time: 18:34:31 Pat Name: ADAM MOE Department: ED Room: 216 Gender: M Bracelet Former: [id number] : 1980 Requested By: BIGG TAMAYO Order Number: [id number] Reading MD: Ernesto Soto Measurements Intervals [place] Rate: 115 P: 1 GA: 137 QRS: 25 QRSD: 99 T: 200 QT: 345 QTc: 478 Interpretive Statements Sinus tachycardia Probable left atrial enlargement Repol abnrm suggests ischemia, anterolateral Compared to ECG 01/13/2025 00:13:56 Early repolarization now present Possible ischemia now present Sinus rhythm no longer present T-wave abnormality no longer present Electronically Signed On 02-24-2025 14:42:04 CDT by Ernesto Soto Please click the below link to view image of tracing.
--- NOTE | 2025-02-23 18:52 | HMCIMG ---
PORTABLE CHEST RADIOGRAPH INDICATION: CHEST PAIN COMPARISON: 01/31/2025 FINDINGS: Stable left PICC. Heart size is normal. The pulmonary vascularity and jimmie appear normal. Extensive bilateral lung opacities. No significant pleural effusion noted. No pneumothorax detected. IMPRESSION: Extensive bilateral lung pneumonia or other airspace process. Follow-up chest radiograph is advised in order to ensure resolution.
[2025-02-23] MEDS ORDERED: VANCOMYCIN PROTOCOL PER PHARMACY IV SCH (19:00)
[2025-02-23] MEDS ORDERED: VANCOMYCIN 2GM/500 ML BAG 500 ML IV ONE (19:30)
[2025-02-23 19:33] LABS: POTASSIUM 3.7 mmol/L (3.5-5.1)
[2025-02-23 19:45] VITALS: PULSE 108; RESP 35; O2SAT 97
[2025-02-23 19:47] LABS: ABG BASE EXCESS -2.3 mmol/L (-2.0-3.0); ABG HCO3 19.1 mmol/L (21.0-28.0); ABG PCO2 25 mmHg (35-48); ABG PH 7.497 (7.350-7.450); DEVICE COMMENT RR RN; PO2, ARTERIAL BG 55.8 mmHg (83.0-108.0); VENT MODE, BG NC (ROOM AIR)
[2025-02-23 19:48] LABS: B-TYPE NATRIURETIC PEPTIDE 2210 pg/mL (0-100)
[2025-02-23 19:52] LABS: BASOPHILS # (AUTO) 0.19 K/uL (0.00-0.20); EOSINOPHILS # (AUTO) 0.23 K/uL (0.00-0.70); EOSINOPHILS % (AUTO) 1.2 % (0.0-8.0); HEMATOCRIT 31.6 % (42-54); IMMATURE GRANULOCYTE ABSOLUTE 0.12 K/uL (0-1); LYMPHOCYTES # (AUTO) 2.9 K/uL (1.0-4.8); LYMPHOCYTES % (AUTO) 15.8 % (21.0-51.0); MEAN CORPUSCULAR HEMOGLOBIN 30.9 pg (27.0-33.0); MEAN CORPUSCULAR HGB CONC 32.6 g/dL (32.0-36.0); MEAN CORPUSCULAR VOLUME 94.9 fL (79-99); MONOCYTES # (AUTO) 1.4 K/uL (0.1-1.0); MONOCYTES % (AUTO) 7.2 % (3.0-13.0); NEUTROPHILS # (AUTO) 13.8 K/uL (1.8-7.7); NEUTROPHILS % (AUTO) 74.2 % (40.0-77.0); PLATELET COUNT (AUTO) 542 K/uL (130-400); RED BLOOD CELL COUNT(AUTO) 3.33 MIL/uL (4.50-6.20); RED CELL DISTRIBUTION WIDTH 16.6 % (11.0-15.5); WHITE BLOOD COUNT (AUTO) 18.7 K/uL (4.8-10.8)
[2025-02-23] MEDS: 0.9%NACL 1000ML 1,000 ML IV ONE (19:58)
[2025-02-23] MEDS: ZOSYN 3.375GM +NS 50ML IV ONE (19:58)
[2025-02-23] MEDS: 0.9% NACL 500ML IV.SOLN 500 ML IV ONE (20:08)
[2025-02-23] MEDS: 0.9%NACL 1000ML 1,000 ML IV SCH (20:08)
[2025-02-23] MEDS: furoSEMIDE 40MG VIAL IV ONE (20:10)
--- NOTE | 2025-02-23 20:35 | HMCIMG ---
ULTRASOUND VENOUS DOPPLER LEFT LOWER EXTREMITY INDICATION: Pain and swelling. TECHNIQUE: Routine grayscale and color Doppler ultrasound of the left lower extremity veins performed. COMPARISON: None. FINDINGS: The demonstrated veins of the left lower extremity including the common femoral vein, femoral vein, and popliteal vein are associated with normal compressibility, augmentation, and flow. Normal respiratory variation was identified. No evidence for echogenic intraluminal thrombus. 21.8 x 5.2 x 10.1 cm nonvascular complex cyst behind the left knee. IMPRESSION: No evidence for deep venous thrombosis. 21.8 x 5.2 x 10.1 cm nonvascular complex cyst behind the left knee suggesting large Matthews's cyst or hematoma.
[2025-02-23 22:06] LABS: INR 1.24 (0.85-1.15); PROTHROMBIN TIME 12.9 SEC (9.6-11.6)
[2025-02-23 22:07] LABS: PARTIAL THROMBOPLASTIN TIME 33.6 SEC (26.3-35.5)
[2025-02-23] MEDS ORDERED: PHARMACY COMMUNICATION MISC SCH (23:00)
--- NOTE | 2025-02-23 23:23 | NUR ---
CRITICAL CARE CONSULT: SPOKE WITH CRITICAL CARE CAGE LOADER, PER CAGE LOADER TREND TROPONIN AND IF TRENDING UP. START PT ON HEPARIN DRIP PER PROTOCOL, DUONEB Q6H INH, ABG IN AM.
--- NOTE | 2025-02-23 23:28 | ERN ---
General Chief Complaint: Shortness of Breath Stated Complaint: SOB Time Seen by MD: 18:24 Time Seen by Midlevel: 18:24 Source: patient History of Present Illness Initial Comments Patient is a 44-year-old male presenting to the emergency department for evaluation of increased shortness of breath. The patient was recently discharged on January 31 from our hospital after he was found to have endocarditis and sepsis. He was discharged with a PICC line in place and is getting daily linezolid. He states that for the last three days he has been having shortness of breath but today it worsened. Allergies: Coded Allergies: No Known Drug Allergies (Unverified Allergy, Unknown, 12/18/15) Home Meds Active Scripts Acetaminophen with Codeine (Acetaminophen-Cod #3 Tablet) 300 Mg-30 Mg Tablet, 1 TAB PO q8 hours PRN PRN for pain, #12 TAB 0 Refills Prov:DAT GLOVER NP 02/14/25 Nystatin (Nystatin) 100,000 Unit/Ml Oral.susp, 5 ML PO QID for 20 Days, #200 ML 0 Refills Prov:ARMANDO OTT MD 02/01/25 Insulin Regular, Human (Humulin R) 100 Unit/Ml Vial, 2 - IJ ACHS for 30 Days, #30 VIAL Prov:ARMANDO OTT MD 01/31/25 Insulin Glargine,Hum.rec.anlog (Lantus Solostar) 100 Unit/Ml (3 Ml) Insuln.pen, 20 UNIT SQ HS for 30 Days, #5 ML 0 Refills Prov:ARMANDO OTT MD 01/31/25 Furosemide (Lasix 40Mg Tab) 40 Mg Tablet, 40 MG PO DAILY for 30 Days, #30 TAB Prov:ARMANDO TOT MD 01/31/25 Ipratropium [place] (Atrovent Neb Soln) 0.2 Mg/Ml (0.02 %) Soln, 0.2 MG IH Q6H PRN for SHORTNESS OF BREATH for 30 Days, #30 ML Prov:ARMANDO OTT MD 01/31/25 Linezolid (Zyvox) 600 Mg/300 Ml Ivsoln, 600 MG IV [id number] PRN for infection for 42 Days, #84 ML 0 Refills Prov:ARMANDO OTT MD 01/31/25 Melatonin (Melatonin) 5 Mg Tablet, 10 MG PO HS PRN for INSOMNIA, #30 TAB Prov:ARMANDO OTT MD 01/31/25 Multivitamins,Therapeutic (Multivitamin Tablet) 400 Mcg Tab, 1 TAB PO DAILY for 30 Days, #30 TAB Prov:ARMANDO OTT MD 01/31/25 [Nitroglycerin 0.4MG Sl Tab] 0.4 MG TAB.SUBL No Conflict Check, 0.4 MG SL AD PRN for CHEST PAIN for 30 Days, #30 - 0 Refills Prov:ARMANDO OTT MD 01/31/25 Triamcinolone Acetonide (Kenalog/Aristocort) 0.1 % Cream.gm., 0.1 APPL TP BID for 30 Days, #30 APPLIC 0 Refills Prov:ARMANDO OTT MD 01/31/25 Folic Acid (Folvite) 1 Mg Tab, 1 MG PO DAILY for 30 Days, #30 TAB Prov:ARMANDO OTT MD 01/31/25 [Benzocaine/Menth/Cetylpyrd Cl] 1 EACH LOZENGE No Conflict Check, 1 EACH MM Q4H PRN for SORE THROAT for 30 Days, #120 - 0 Refills Prov:ARMANDO OTT MD 01/31/25 Acetaminophen (Tylenol) 325 Mg Tablet, 650 MG PO Q6H PRN for TEMPERATURE GREATER THAN 101.5 for 30 Days, #60 TAB Prov:ARMANDO OTT MD 01/31/25 Past Medical History Past Medical History: CAD, Diabetes-Type II Past Surgical History: Other Surgical History Other: HEART STENT FOR CAD Family History Family History: Negative Social History Social History: Drugs, ETOH ROS Dictation CONSTITUTIONAL: Negative except for HPI HEAD/FACE: Negative except for HPI EENT: Negative except for HPI RESPIRATORY: Negative except for HPI GASTROINTESTINAL/ABDOMINAL: Negative except for HPI GENITOURINARY: Negative except for HPI MUSCULOSKELETAL: Negative except for HPI INTEGUMENTARY: Negative except for HPI NEUROLOGICAL/PSYCH: Negative except for HPI HEMATOLOGIC/LYMPHATIC: Negative except for HPI All Systems Negative, Except as noted above. 13 point review of systems assessed and all negative except for above. Physical Exam Physical Exam Dictation Vital Signs reviewed General Appearance: Alert, oriented x 3, mild respiratory distress, ill- appearing Head and Face: non-traumatic. Eyes: PERRL, pink conjunctivas, eyelid no trauma, anterior chamber with arcus senilis. Ears: Pinnas intact and no signs of trauma or erythema ear canals clear and no discharge TM no erythema Nose: No discharge, no bleeding. Oropharynx: Mouth normal, tongue pink, pharynx clear,no erythema, tonsils no exudates, no abscesses noted, mucous membrane moist Neck: Supple, non-tender, no thyromegaly, no masses, no JVD, no bruits Breast:Deferred Chest:No tenderness, no crepitus, no paradoxical movement, no retractions Lungs: Symmetric, expiratory wheezing to bilateral lung joseph, crackles to bilateral lung joseph, tachypneic Heart: tachycardic, regular rhythm, no murmur, no gallops Vascular: Bilateral pitting edema worse on the left side Abdomen: Soft, positive bowel sounds, nondistended, no guarding, nontender, no rebound, no masses no hepatomegaly, no splenomegaly, no Dominguez's sign, no hernias. Rectal: Deferred Genital: Deferred Neurological: Normal speech, motor function intact, sensory function intact Musculoskeletal: Neck nontender, full range of motion, back nontender, full range of motion, Extremities: nontender, full range of motion Skin: Color pink, dry, no turgor, no rash, no lacerations, no abrasions, no contusions. Lymphatic: Deferred Results Laboratory and Microbiology Lab and Micro Result Laboratory Tests Test 02/23/25 18:20 Lactic Acid Level 3.6 mmol/L (0.8-2.5) H Labs Reviewed?: Yes MDM MDM: Patient is a 44-year-old male presenting to the emergency department for evaluation of increased shortness of breath. The patient was recently discharged on January 31 from our hospital after he was found to have endocarditis and sepsis. He was discharged with a PICC line in place and is getting daily linezolid. He states that for the last three days he has been having shortness of breath but today it worsened. On physical examination the patient is ill-appearing. Initial vital signs are remarkable for a heart rate of 110 beats per minute. Blood pressure is 123/69. O2 saturation is 95% on room air. Patient has a extensive expiratory wheezing and crackles to bilateral lung joseph. Patient is tachypneic and in mild respiratory distress. There is pitting edema to bilateral lower extremities worse in the left side. Septic workup was initiated. The patient was given 500 cc of IV fluids followed by a L of IV fluids administered in a rate of 75cc/hour. CBC shows leukocytosis with a white blood cell count of 18.7. There is chronic anemia with a hemoglobin of 10.3. There was thrombocytosis with a platelet count of 542. Chemistries reveal lactic acidosis of 3.6. There was an BRENDAN with a creatinine of 2.0 and a BUN of 24. Initial troponin is elevated at 296 however the patient was denying any chest pain on clinical presentation. Initial EKG shows sinus tachycardia with a ventricular rate of115 beats per minute. BNP is elevated at 2210. We were cautious in replacing the IV fluids given elevated BNP level. Chest x-ray reveals extensive bilateral lung pneumonia. An ultrasound of the left lower extremity was obtained to rule out a deep vein thrombosis. The ultrasound is negative for a DVT but there is a large Matthews cyst versus hematoma. The patient is already on linezolid. We will add Zosyn for treatment of pneumonia. Case was discussed with the hospitalist on-call who agrees to admit the patient for further observation and management. Differential diagnosis: Sepsis, pneumonia, urinary tract infection, ACS Rationale: Tests considered and ordered secondary to shared decision making include: Previous outside records reviewed: Old ER visits. Risk of complication and/or morbidity or mortality of patient management: None Medications-Per medication reconciliation Need for hospitalization: Patient does meet criteria for hospitalization. Need for emergency major/minor surgery: No There are no social concerns with this patient. Prescription drug management Prescriptions will include symptomatic care Patient's prior external medical records from other ER visits were reviewed by me as indicated. Prior testing and results from previous visits were reviewed. Prior tests were taken into account with medical decision making and resource utilization, independent historian/historians were used to obtain complete medical history. I independently interpreted the test that were performed, results were reviewed by me and considered findings on radiology if ordered. Medical management and examination interpretation discussions were had by me with other qualified healthcare professionals as indicated for the patient's care. ED Course Vital Signs Date Time Temp Pulse Resp B/P (MAP) Pulse Ox O2 Delivery O2 Flow Rate FiO2 02/23/25 18:23 98.1 110 24 123/69 95 Room Air 0 PATIENT: ADAM MOE III MR#: [id number] : 1980 SEX: M AGE: 44 LOCATION: [facility] ORDER 57 STATUS: REG ER REPORT#: [id number] SERVICE 56 REASON: LLE swelling ORDERING PHYSICIAN: BIGG TAMAYO PROCEDURE: VENOUS UNI - US VENOUS DOPPLER UNILATERAL ULTRASOUND VENOUS DOPPLER LEFT LOWER EXTREMITY INDICATION: Pain and swelling. TECHNIQUE: Routine grayscale and color Doppler ultrasound of the left lower extremity veins performed. COMPARISON: None. FINDINGS: The demonstrated veins of the left lower extremity including the common femoral vein, femoral vein, and popliteal vein are associated with normal compressibility, augmentation, and flow. Normal respiratory variation was identified. No evidence for echogenic intraluminal thrombus. 21.8 x 5.2 x 10.1 cm nonvascular complex cyst behind the left knee. IMPRESSION: No evidence for deep venous thrombosis. 21.8 x 5.2 x 10.1 cm nonvascular complex cyst behind the left knee suggesting large Matthews's cyst or hematoma. DICTATED BY: KIARA PETERSON MD DATE: 02/23/252027 ELECTRONICALLY SIGNED BY: KIARA PETERSON MD DATE: 02/23/252034 [address] [address] IMAGING REPORT Signed PATIENT: ADAM MOE III MR#: [id number] : 1980 SEX: M AGE: 44 LOCATION: ED ORDER 26 STATUS: REG ER REPORT#: [id number] SERVICE 25 REASON: CHEST PAIN ORDERING PHYSICIAN: BIGG TAMAYO PROCEDURE: CXR1VW - CHEST 1VW PORTABLE CHEST RADIOGRAPH INDICATION: CHEST PAIN COMPARISON: 01/31/2025 FINDINGS: Stable left PICC. Heart size is normal. The pulmonary vascularity and jimmie appear normal. Extensive bilateral lung opacities. No significant pleural effusion noted. No pneumothorax detected. IMPRESSION: Extensive bilateral lung pneumonia or other airspace process. Follow-up chest radiograph is advised in order to ensure resolution. DICTATED BY: KIARA PETERSON MD DATE: 02/23/251847 ELECTRONICALLY SIGNED BY: KIARA PETERSON MD DATE: 02/23/251851 Procedure Dictation Total critical care time: Approximately 45 minutes Due to a high probability of clinically significant, life threatening deterioration, the patient required my highest level of preparedness to intervene emergently and I personally spent this critical care time directly and personally managing the patient. This critical care time included obtaining a history; examining the patient; pulse oximetry; ordering and review of studies; arranging urgent treatment with development of a management plan; evaluation of patient's response to treatment; frequent reassessment; and, discussions with other providers. This critical care time was performed to assess and manage the high probability of imminent, life-threatening deterioration that could result in multi-organ failure. It was exclusive of separately billable procedures and treating other patients and teaching time. Please see MDM section and the rest of the note for further information on pat ient assessment and treatment. DX & DISP Disposition: Inpatient Departure Impression: Primary Impression: Sepsis Additional Impressions: Pneumonia, Leukocytosis, Anemia, Elevated troponin, BRENDAN (acute kidney injury), Urinary tract infection, Synovial cyst of popliteal space [Matthews], left knee Condition: Stable Referrals: SELF,REFERRAL (PCP) I have reviewed the case, and I agree with, Diagnosis and Plan I performed the substantive portion of the visit. I have reviewed and pers onally made and approve the management plan that is documented in the note by myself or the [facility]. I acknowledge for responsibility for the patient's management plan. BIGG TAMAYO Feb 23, 2025 23:28
[2025-02-23] MEDS: HYDROcodone/APAP 5/325 1 TAB TABLET PO PRN (23:37)
--- NOTE | 2025-02-23 23:41 | NUR ---
OFF OF BIPAP AT THIS TIME PER PT REQUEST
[2025-02-24] VITALS (44 sets, daily range): BP systolic 112–157; BP diastolic 42–99; PULSE 73–113; RESP 22–50; TEMP 97.1–98.8; O2SAT 90–100
[2025-02-24 00:09] LABS: APPEARANCE,URINE CLEAR (CLEAR); BILIRUBIN,URINE NEGATIVE (NEGATIVE); COLOR,URINE LIGHT-YELLOW (YELLOW); GLUCOSE, URINE (UA) NEGATIVE (NEGATIVE); KETONES,URINE NEGATIVE (NEGATIVE); LEUKOCYTE ESTERASE ,URINE 75 Leu/uL (NEGATIVE); NITRATE,URINE NEGATIVE (NEGATIVE); PROTEIN,URINE 20 mg/dL (NEGATIVE); UROBILINOGEN,URINE 0.2 mg/dL (0.2-1.0)
[2025-02-24 00:10] LABS: ADD UA MICROSCOPIC YES
[2025-02-24 00:11] LABS: BACTERIA,URINE RARE /HPF (None Seen); MUCUS,URINE RARE LPF (None Seen); OTHER CASTS, URINE 4 /LPF (None Seen); SQUAMOUS EPITHELIAL CELL,UR RARE /HPF (0-2); UNCLASSIFIED CRYSTAL 1 /HPF (None Seen)
[2025-02-24] MEDS: IpraTROPium/alBUTERol SULFATE 3 ML SOLUTION IH SCH (00:13)
[2025-02-24] MEDS: hydrOXYzine 25 MG TABLET PO ONE (00:55)
[2025-02-24] MEDS: LINEZOLID 600 MG/ISO-OSM 300 ML IV ONE (00:55)
[2025-02-24 03:33] LABS: ABG BASE EXCESS -3.6 mmol/L (-2.0-3.0); ABG HCO3 18.2 mmol/L (21.0-28.0); ABG OXYGEN SATURATION 90.9 % (94.0-98.0); ABG PCO2 26 mmHg (35-48); ABG PH 7.469 (7.350-7.450); PO2, ARTERIAL BG 54.6 mmHg (83.0-108.0); VENT MODE, BG NC (ROOM AIR)
[2025-02-24 04:44] LABS: BASOPHILS # (AUTO) 0.15 K/uL (0.00-0.20); BASOPHILS % (AUTO) 0.8 % (0.0-5.0); EOSINOPHILS # (AUTO) 0.32 K/uL (0.00-0.70); EOSINOPHILS % (AUTO) 1.8 % (0.0-8.0); HEMATOCRIT 33.2 % (42-54); IMMATURE GRANULOCYTE ABSOLUTE 0.14 K/uL (0-1); LYMPHOCYTES # (AUTO) 2.8 K/uL (1.0-4.8); LYMPHOCYTES % (AUTO) 15.3 % (21.0-51.0); MEAN CORPUSCULAR HEMOGLOBIN 30.5 pg (27.0-33.0); MEAN CORPUSCULAR HGB CONC 31.6 g/dL (32.0-36.0); MEAN CORPUSCULAR VOLUME 96.5 fL (79-99); MONOCYTES # (AUTO) 1.2 K/uL (0.1-1.0); MONOCYTES % (AUTO) 6.6 % (3.0-13.0); NEUTROPHILS # (AUTO) 13.5 K/uL (1.8-7.7); NEUTROPHILS % (AUTO) 74.7 % (40.0-77.0); PLATELET COUNT (AUTO) 475 K/uL (130-400); RED BLOOD CELL COUNT(AUTO) 3.44 MIL/uL (4.50-6.20); RED CELL DISTRIBUTION WIDTH 16.7 % (11.0-15.5)
[2025-02-24 05:01] LABS: ALBUMIN 2.4 g/dL (3.5-5.0); BILIRUBIN,TOTAL 0.6 mg/dL (0.2-1.0); MAGNESIUM 1.7 mg/dL (1.80-2.40); POTASSIUM 4.1 mmol/L (3.5-5.1); TOTAL PROTEIN, SERUM 7.6 g/dL (6.0-8.3)
[2025-02-24 05:12] LABS: B-TYPE NATRIURETIC PEPTIDE 2410 pg/mL (0-100)
[2025-02-24] MEDS: ZOSYN 3.375GM +NS 50ML IV SCH (05:14)
--- NOTE | 2025-02-24 07:15 | NUR ---
WILL ASSUME PRIMARY CARE AT THIS TIME, PT IS AAOX4, TACHEPNIC, ON NC AT 4 LTS, PT PLACED IN GOWN AND HOSPITAL BED , PT TOLORATED WELL.
--- NOTE | 2025-02-24 08:32 | NUR ---
Lac-3.2, JOHN MADE AWARE
--- NOTE | 2025-02-24 09:03 | NUR ---
FIRST ATTEMPT TO CALL SBAR TO ICU, JUANJO WILL CALL BACK
[2025-02-24] MEDS: furoSEMIDE 40MG VIAL IV SCH ×2 (09:34→15:54)
[2025-02-24] MEDS: HEParin 5,000 UNIT VIAL SQ SCH (09:34)
[2025-02-24 10:11] LABS: SARS-CoV-2, RNA, NAAT NEGATIVE SARS CoV-2 (NEGATIVE)
--- NOTE | 2025-02-24 10:13 | CONS ---
[facility] CONSULTATION NOTE Date Patient Seen: Feb 24, 2025 Time of Visit: 10:12 Supervising Physician: Bonifacio Dumont MD Reason for Consultation: Acute Hypoxemic respiratory failure Primary Care Physician: Self Referral Outpatient Specialists: Inpatient Consults: Dr Dumont PROBLEM LIST: - Acute Hypoxic respiratory failure POA requiring NIV -Acute on chronic diastolic heart failure w/ EF 50-55% on 2 D echo POA - Aortica Valvular vegetation present 1.4cm -Severe Aortic regurgitation Severe multifocal bilateral Bacterial Pneumonia SCAP score 20 Points ( Recommend ICU monitoring) -Bilateral Pleural Effusions POA -Acute Cystitis POA -Normocytic anemia -Acute on chronic CKD stage IIIb -Fidelina esophagitis identified on EGD done 01/11/2025 -Bacterial endocarditis affecting the aortic valve (1.81x1.17 cm mass attached to the noncoronary cusp leaflet) identified on DRAKE done 01/11/2025 -Left atrial appendage thrombus identified on DRAKE done 01/11/2025 -Elevated troponin (type II HI) -thrombocytosis -Liver cirrhosis MELD Score 22 Points ( 19.6 % Estimated 3 month Mortality) -cholelithiasis -Esophagitis by EGD 01/11/2025 -CAD s/p PCI with IA Integrilin, aspiration thrombectomy, PTCA, and KISHORE placement (Promus 4.0x16 mm) in the proximal LAD done on 12/19/2015 -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 of the RCA cursing between the aorta and PA trunk) identified on LHC done 12/19/2015 -HTN -HLP -Polysubstance abuse (ETOH and cocaine) -Suspected MARCOS/OHS -Morbid obesity -Noncompliance - Left Large Bakers Cyst HPI: This is a 44 year old chronically ill male with past medical history of recent hospitalization for Staph aureus bacteremia, severe sepsis and endocarditis, aortic valvular vegetation and severe aortic regurgitation, polysubstance drug abuse, heparin steatosis, tobacco dependence, type 2 diabetes mellitus and gallbladder stones who was recently discharged on January 31, 2025 with long-term IV linezolid via PICC line for infective endocarditis. Pt also has a pertinent past medical history of Fidelina esophagitis, uncontrolled diabetes mellitus type 2 BRENDAN, immune thrombocytopenic purpura, UTI Klebsiella and substance abuse with cocaine alcohol and tobacco. Pt presented to ED for evaluation are progressive dyspnea, worsened shortness of breaths and was admitted to the ICU for acute hypoxemic respiratory failure and we were consulted for critical care management. On assessment patient is moderately distressed on BiPAP machine. Tachycardic with heart rate of 110 respiratory rate of 27 blood pressure of 147/70 not on any pressors at this time saturating 96% with CPAP of 40% and afebrile. Labor atory showed WBCs of 18, H&H 10.5/33.2 platelet count of 475 K and neutrophils were normal. Lactic acid this morning 3.2 BUN 25 creatinine is 2.0 GFR of 41 magnesium 1.7 ALT of eight BNP of 2410 albumin of 2.4 procalcitonin of 0.34, urinalysis showed positive for protein of 20 urine occult blood +trace leukocyte esterase 75 RBCs 2-5 WBCs 11 to 25 minutes had an catheterization 2-5. Coags showed INR 1.24 PT 12.9 APTT. Pt has been started on broad spectrum antibiotics to cover for health care associated pneumonia. He has been started on diuretic therapy. We will continue to manage NIV per ABG and respiratory status. PAST MEDICAL HX: fatty liver by CT on 01/05/2025 Severe sepsis Gram-positive bacteremia secondary to Staphylococcus aureus, Hypodense echogenic mobile vegetation to right coronary cusp leaflet on echocardiogram 01/05/2025 Left atrial appendage clot present. on DRAKE 01/11 non coronary cusp leaflet has vegetation that measures 1.8 x 1.1 cm. on DRAKE 01/11 Urinary tract infection, secondary to Klebsiella pneumoniae, PAST SURGICAL HX: noncontributory SOCIAL HISTORY: Cocaine abuse Alcohol abuse Tobacco dependence Coded Allergies: No Known Drug Allergies (Unverified Allergy, Unknown, 12/18/15) REVIEW OF SYSTEMS: 12 point ROS reviewed with patient. Pertinent positives mentioned above. Otherwise negative. PHYSICAL EXAM: GENERAL: alert, weak, awake oriented x 3 HEENT: EOMI, Sclera non icteric, moist mucosa NECK: Supple, no JVD, trachea midline LUNGS: Crackles breath sounds bilaterally. No wheezes HEART: Regular rate and rhythm. Normal S1 and S2, without murmurs ABD: Obese Abdomen soft, nontender. Bowel sounds present EXT: No clubbing cyanosis or edema NEURO: Alert and oriented to person, follows commands Vital Signs (last 8hr) Date Time Temp Pulse Resp B/P (MAP) Pulse Ox O2 Delivery O2 Flow Rate FiO2 3/28/25 07:09 112 22 N/Cannula Low lpm 3.0 32 02/24/25 07:08 112 22 02/24/25 06:04 106 33 130/58 100 Bi-PAP+ 30 02/24/25 04:34 106 29 136/70 98 Bi-PAP+ 30 LABS: Hematology Labs: Test 02/24/25 04:37 Range/Units White Blood Count 18.0 H 4.8-10.8 K/uL Red Blood Count 3.44 L 4.50-6.20 MIL/uL Hemoglobin 10.5 L 14.0-18.0 g/dL Hematocrit 33.2 L 42-54 % Mean Corpuscular Volume 96.5 79-99 fL Mean Corpuscular Hemoglobin 30.5 27.0-33.0 pg Mean Corpuscular Hemoglobin Concent 31.6 L 32.0-36.0 g/dL Red Cell Distribution Width 16.7 H 11.0-15.5 % Platelet Count 475 H 130-400 K/uL Mean Platelet Volume 8.8 7.5-10.5 fL Immature Granulocyte % (Auto) 0.8 0-1 % Neutrophils (%) (Auto) 74.7 40.0-77.0 % Lymphocytes (%) (Auto) 15.3 L 21.0-51.0 % Monocytes (%) (Auto) 6.6 3.0-13.0 % Eosinophils (%) (Auto) 1.8 0.0-8.0 % Basophils (%) (Auto) 0.8 0.0-5.0 % Neutrophils # (Auto) 13.5 H 1.8-7.7 K/uL Lymphocytes # (Auto) 2.8 1.0-4.8 K/uL Monocytes # (Auto) 1.2 H 0.1-1.0 K/uL Eosinophils # (Auto) 0.32 0.00-0.70 K/uL Basophils # (Auto) 0.15 0.00-0.20 K/uL Absolute Immature Granulocyte (auto 0.14 0-1 K/uL Nucleated Red Blood Cells 0.0 0.0-0.19 % Chemistry Labs: Test 02/24/25 08:23 02/24/25 04:37 02/23/25 21:51 02/23/25 19:04 Range/Units Lactic Acid Level 3.2 H 0.8-2.5 mmol/L Sodium Level 138 136-145 mmol/L Potassium Level 4.1 3.5-5.1 mmol/L Chloride Level 99 L 101-111 mmol/L Carbon Dioxide Level 25 21-32 mmol/L Blood Urea Nitrogen 25 H 7-18 mg/dL Creatinine 2.0 H 0.5-1.3 mg/dL Glomerular Filtration Rate Calc 41 >90 mL/min Random Glucose 125 H 70-105 mg/dL Total Calcium 8.8 8.5-10.1 mg/dL Magnesium Level 1.70 L 1.80-2.40 mg/dL Total Bilirubin 0.6 0.2-1.0 mg/dL Aspartate Amino Transf (AST/SGOT) 15 10-37 U/L Alanine Aminotransferase (ALT/SGPT) 8 L 12-78 U/L Alkaline Phosphatase 99 50-136 U/L B-Type Natriuretic Peptide 2410 H 0-100 pg/mL Total Protein 7.6 6.0-8.3 g/dL Albumin 2.4 L 3.5-5.0 g/dL Procalcitonin 0.34 0.05-0.5 ng/mL Troponin I High Sensitivity 312 *H 4-75 ng/L Total Creatine Kinase 36 # 21-232 U/L Coagulation Labs: Test 02/23/25 21:43 Range/Units Prothrombin Time 12.9 H 9.6-11.6 SEC Prothromb Time International Ratio 1.24 H 0.85-1.15 Activated Partial Thromboplast Time 33.6 26.3-35.5 SEC DIAGNOSTICS / RADIOLOGY RESULTS: IMAGING REPORT Signed PATIENT: ADAM MOE III MR#: [id number] : 1980 SEX: M AGE: 44 LOCATION: [facility] ORDER [id number] STATUS: ADM IN REPORT#: [id number] SERVICE 1057 REASON: vegetation and thrombus evaluation ORDERING PHYSICIAN: JAXON ROBLES PROCEDURE: ECHO FU LD - ECHO 2-D F/U-LTD ADDENDUM REPORT ADDENDUM APPROVED REPORT Pressure 1/2 time is 65 consistent with severe AI. DICTATED BY: FATMATA JACOBO MD DATE: 02/24/25 1447 ELECTRONICALLY SIGNED BY: FATMATA JACOBO MD DATE: 02/24/25 2248 APPROVED REPORT EXAM: LIMITED Two-dimensional and M-mode echocardiogram with Doppler and color Doppler. Study Details: prior: December 2024 INDICATION ICD: vegetation and thromub evaluation 2D Dimensions IVSd 1.1 (0.7-1.1cm) LVEF(%) 58.4 (>50%) LVED Vol(simp.) 212.2 mL LVDd 6.0 (3.8-5.6cm) FS(%) 31 % LVES Vol(simp.) 95.2 mL PWd 1.0 (0.7-1.1cm) LA (2D) 4.5 (1.6-4.0cm) LVEF(%, simp.) 55 % LVDs 4.1 (2.5-4.0cm) Ao Root(2D) 2.9 (2.0-3.7cm) LVOT diam 2.3 (1.8-2.4cm) Deformation Strain Apical 4 -13.0 % Apical 2 -14.0 % Apical 3 -13.0 % Global Strain -13.0 % Aortic Valve AoV Vmax 2.3 m/s Ao Peak GR 22.0 mmHg LVOT Vmax 1.5 m/s AoV VTI 0.5 m Ao Mean GR 13.4 mmHg LVOT VTI 0.27 m JEANNE (VMAX) 2.4 cm2 Al P1/2T 71 ms JEANNE (VTI) 2.4 cm2 Left Ventricle The left ventricle is severely dilated. GS -13%. There is normal left ventricular wall thickness. LVEF is 50-55%. Right Ventricle The right ventricle is normal size. The right ventricular systolic function is normal. Atria The left atrium size is normal. Aortic Valve Aortic valve is trileaflet. Severe aortic regurgitation. There is aortic valvular vegetation present, 1.4cm. There is no aortic valvular stenosis. Mitral Valve The mitral valve is normal in structure and function. There is mild mitral valve regurgitation noted. There is no mitral valve stenosis. Tricuspid Valve The tricuspid valve is normal in structure and function. There is no tricuspid valve regurgitation noted. Conclusion LVEF is 50-55%. GS -13%. There is aortic valvular vegetation present, 1.4cm. Severe aortic regurgitation. DICTATED BY: FATMATA JACOBO MD DATE: 02/24/25 1447 ELECTRONICALLY SIGNED BY: FATMATA JACOBO MD DATE: 02/24/25 1834 PATIENT: ADAM MOE III MR#: [id number] : 1980 SEX: M AGE: 44 LOCATION: [facility] ORDER 1039 STATUS: ADM IN REPORT#: [id number] SERVICE 1037 REASON: brendan ORDERING PHYSICIAN: JO DAVID PROCEDURE: RENAL - US RENAL SONOGRAM US RENAL SONOGRAM HISTORY: Acute renal insufficiency COMPARISON: None TECHNIQUE: Renal and bladder ultrasound study was performed. FINDINGS: The right kidney measures 11.2 x 5.8 x 5.5 cm. The left kidney measures 11.3 x 5.9 x 5.1 cm. No evidence of hydronephrosis is seen of either kidney. Both kidneys are seen. Bladder is partially distended. The study is limited due to overlying bowel gas and large body habitus. IMPRESSION: 1. No hydronephrosis is seen. DICTATED BY: CAROL HOWARD MD DATE: 02/24/25 1128 ELECTRONICALLY SIGNED BY: CAROL HOWARD MD DATE: 02/24/25 1136 IMAGING REPORT Signed PATIENT: ADAM MOE III MR#: [id number] : 1980 SEX: M AGE: 44 LOCATION: [facility] ORDER [id number] STATUS: ADM IN REPORT#: [id number] SERVICE 0807 REASON: soa ORDERING PHYSICIAN: OLAYINKA ARCE MD PROCEDURE: CHEST WO - CT CHEST W/O CONTRAST CT CHEST W/O CONTRAST HISTORY: Shortness of breath COMPARISON: None TECHNIQUE: Multiple sequential axial images of the chest were obtained from the thoracic inlet through upper abdomen. Patient was not given contrast through intravenous route. FINDINGS: Bilateral pleural effusions are seen. Extensive bilateral groundglass pulmonary infiltrates. Gallstones are seen in the gallbladder. There is no evidence of pneumothorax. There are normal size mediastinal and hilar lymph nodes. The heart is not enlarged. Degenerative changes of the thoracolumbar spine are present. There is no evidence of adrenal nodule. IMPRESSION: 1. Bilateral pleural effusions are seen. Extensive bilateral groundglass pulmonary infiltrates. Gallstones are seen in the gallbladder. CT was performed with one or more following dose reduction techniques: automated exposure control, adjustment of the mA and kv according to patient's size, or use of a iterative reconstruction technique. DICTATED BY: CAROL HOWARD MD DATE: 02/24/251048 ELECTRONICALLY SIGNED BY: CAROL HOWARD MD DATE: 02/24/25 105 IMAGING REPORT Signed PATIENT: ADAM MOE III MR#: [id number] : 1980 SEX: M AGE: 44 LOCATION: ED ORDER 57 STATUS: [facility] REPORT#: [id number] SERVICE 56 REASON: LLE swelling ORDERING PHYSICIAN: BIGG TAMAYO PROCEDURE: VENOUS UNI - US VENOUS DOPPLER UNILATERAL ULTRASOUND VENOUS DOPPLER LEFT LOWER EXTREMITY INDICATION: Pain and swelling. TECHNIQUE: Routine grayscale and color Doppler ultrasound of the left lower extremity veins performed. COMPARISON: None. FINDINGS: The demonstrated veins of the left lower extremity including the common femoral vein, femoral vein, and popliteal vein are associated with normal compressibility, augmentation, and flow. Normal respiratory variation was identified. No evidence for echogenic intraluminal thrombus. 21.8 x 5.2 x 10.1 cm nonvascular complex cyst behind the left knee. IMPRESSION: No evidence for deep venous thrombosis. 21.8 x 5.2 x 10.1 cm nonvascular complex cyst behind the left knee suggesting large Matthews's cyst or hematoma. DICTATED BY: KIARA PETERSON MD DATE: 02/23/252027 ELECTRONICALLY SIGNED BY: KIARA PETERSON MD DATE: 02/23/252034 Signed PATIENT: ADAM MOE III MR#: [id number] : 1980 SEX: M AGE: 44 LOCATION: ED ORDER 26 STATUS: REG ER REPORT#: [id number] SERVICE 25 REASON: CHEST PAIN ORDERING PHYSICIAN: BIGG TAMAYO PROCEDURE: CXR1VW - CHEST 1VW PORTABLE CHEST RADIOGRAPH INDICATION: CHEST PAIN COMPARISON: 01/31/2025 FINDINGS: Stable left PICC. Heart size is normal. The pulmonary vascularity and jimmie appear normal. Extensive bilateral lung opacities. No significant pleural effusion noted. No pneumothorax detected. IMPRESSION: Extensive bilateral lung pneumonia or other airspace process. Follow-up chest radiograph is advised in order to ensure resolution. DICTATED BY: KIARA PETERSON MD DATE: 02/23/251847 ELECTRONICALLY SIGNED BY: KIARA PETERSON MD DATE: 02/23/251851 PLAN NEURO: Minimize central acting medications as possible. Fall Precautions. Well lighted room through the day and minimize interruptions through the night to prevent acute delirium. PULMONARY: Supplemental 02 as needed Titrate Fio2 to keep Spo2 > or = 90% DuoNebs and CPT as needed IS hourly while awake for pulmonary hygiene Out of bed to chair as tolerated VAP Bundle Vent/BIPAP Settings: [ ] Driving pressure: [ ] P Plat: [ ] Static C: [ ] Static R: [ ] P/F Ratio: [ ] CARDIOVASCULAR: Follow hemodynamics. Titrate vasopressor to keep MAP >65 or systolic blood pressure >95mmHg DIPS: [ ] LINES: [ ] GI & NUTRITION: Continue nutritional support Aspirations precautions Prokinetic agents and laxatives as needed KIDNEYS & ELECTROLYTES: Strict monitoring of intake and output Daily weights Avoid nephrotoxic agents Monitor electrolytes and replace as needed Goal urine output of 30mL/hr or 0.5mL/kg/hr Urine output: [ ] Fluid Balance: [ ] ENDOCRINE: Maintain blood glucose between 100-180 at all times. Insulin sliding scale for blood glucose management INFECTIOUS DISEASE: Trend temperature. Mccormack-culture if febrile. Micro: [ ] Antibiotics: [ ] HEMATOLOGY & COAGULATION: Monitor H&H. Keep Hgb > 7 Transfuse 1 unit of PRBC for Hgb < 7 Transfuse 1 pack of platelets of platelets < 20, 000 Watch for any signs and symptoms of bleeding SKIN: Pressure ulcer prevention per facility protocol Rehab: PT/OT Prophylaxis: GI: [ ] DVT: [ ] Code Status: Full Resuscitation Disposition: [ ] Other: Total patient care time exceeds 35 minutes excluding all procedures. Case was discussed and seen with my supervising physician. The above plan was formulated and agreed upon. ATTESTATION BY PHYSICIAN I attest that I reviewed and discussed the case with the Physician Services Delivery Driver as well as agree with the Physician Services Delivery Driver's findings, plans of care, and documentation above. Bonifacio Brantley MD, NE[facility] Feb 24, 2025 10:13
[2025-02-24 10:18] LABS: INFLUENZA TYPE A Negative For Type A (NEGATIVE); INFLUENZA TYPE B Negative For Type B (NEGATIVE)
[2025-02-24] MEDS ORDERED: dexmedeTOMIDine 400MCG/NS100ML IV SCH (10:30)
[2025-02-24] MEDS ORDERED: PHARMACY COMMUNICATION 1 EACH EACH MISC SCH (10:30)
[2025-02-24] MEDS: LINEZOLID 600 MG/ISO-OSM 300 ML IV SCH (10:42)
--- NOTE | 2025-02-24 10:55 | HMCIMG ---
CT CHEST W/O CONTRAST HISTORY: Shortness of breath COMPARISON: None TECHNIQUE: Multiple sequential axial images of the chest were obtained from the thoracic inlet through upper abdomen. Patient was not given contrast through intravenous route. FINDINGS: Bilateral pleural effusions are seen. Extensive bilateral groundglass pulmonary infiltrates. Gallstones are seen in the gallbladder. There is no evidence of pneumothorax. There are normal size mediastinal and hilar lymph nodes. The heart is not enlarged. Degenerative changes of the thoracolumbar spine are present. There is no evidence of adrenal nodule. IMPRESSION: 1. Bilateral pleural effusions are seen. Extensive bilateral groundglass pulmonary infiltrates. Gallstones are seen in the gallbladder. CT was performed with one or more following dose reduction techniques: automated exposure control, adjustment of the mA and kv according to patient's size, or use of a iterative reconstruction technique.
[2025-02-24] MEDS: PANTOPrazole 40 MG/VIAL IVP SCH (11:00)
[2025-02-24 11:01] LABS: ALBUMIN 2.5 g/dL (3.5-5.0); BILIRUBIN,DIRECT 0.1 mg/dL (0.0-0.3); BILIRUBIN,TOTAL 0.7 mg/dL (0.2-1.0)
--- NOTE | 2025-02-24 11:28 | CONS ---
[facility] CARDIOLOGY CONSULTATION REPORT Cardiology consultation note dictated for Ernesto Jacobo MD Primary acls specialist: Anna Hilario MD Date Patient Seen: Feb 24, 2025 Requesting Physician: IVY Fisher Reason for Consultation: CHF History of Present Illness: This is a 44-year-old male with a past medical history of hypertension, hyperlipidemia, history of hypertensive emergency in 2016, NSTEMI in the setting of uncontrolled hypertension in 2016, single-vessel CAD with nonocclusive thrombus in the proximal LAD with approximately 75% luminal encroachment by thrombus, s/p intracoronary Integrilin Pronto catheter thrombectomy and PTCA and stenting of the proximal LAD with a 4.0 x 16 mm Promus drug-eluting stent, 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 In Dec 2024 he developed sepsis/MSSA, and found to have a 1.8 x 1.2 cm vegetation involving the aortic valve by DRAKE 01/11/2025 as well as a left atrial appendage thrombus. A limited follow up 2D echocardiogram 01/23/2025 demonstrated LVEF is 60-65% with normal LV segmental wall motion, Aortic valve non coronary cusp leaflet vegetation currently measures 0.8cm x 1.15cm with a traced area of 0.9cm (relatively unchanged) and no pericardial effusion. A right upper extremity venous Doppler demonstrated a Noncompressible thrombus is seen in the right cephalic vein consistent with superficial thrombophlebitis. The right PICC line was discontinued. He has been presenting to the ED for IVABX and would go home, but today he presented to the ED with complaints of dyspnea on exertion since discharge 02/01/2025 that had progressed over the last three days to shortness of breath with sitting, orthopnea, and PND. Cardiology has been consulted for recommendations in regards to CHF. BNP level 2410. Chest x-ray demonstrated pulmonary edema. CT of the chest has been ordered. A left lower extremity venous Doppler was negative for DVT but did demonstrate a large Matthews cyst versus hematoma. Left lower extremity is larger than the right lower extremity but no discoloration noted. White count on admission of 18.7. Urinalysis was positive. Lactic acid is elevated at 3.6. The patient is currently maintained on Lasix 40 mg IV every 12 hours. Creatinine is 2.0 with a GFR 41. Of note, Eliquis for the treatment of the left atrial appendage thrombus had been discontinued due to thrombocytopenia. Past Medical History: As per HPI and summarized below Past Surgical History: Refer to chart Family History: Refer to chart Social History: The patient lives with his . Habits: The patient currently denies alcohol, tobacco, or illicit drug use. Home Meds: Nystatin 5 mL q.i.d. Folic acid 1 mg daily Furosemide 40 mg daily Zyvox 600 mg IV every 12 hours p.r.n. Melatonin 10 mg q.h.s. p.r.n. Current Meds: Current Medications Medications Dose Ordered Sig/Asya Start Time Stop Time Status Last Admin Piperacillin Sod/ Tazobactam Sod 3.375 gm Q8H 02/24/25 05:00 03/06/25 04:59 02/24/25 05:14 Acetaminophen/ Hydrocodone Bitart 1 tab Q6H PRN 02/23/25 23:00 02/28/25 22:59 02/24/25 09:33 Heparin Sodium (Porcine) 5,000 unit BID 02/24/25 09:00 03/26/25 08:59 02/24/25 09:34 Albuterol 1 UDVIAL [id number] 02/24/25 00:00 03/26/25 00:00 02/24/25 07:08 Doxycycline Hyclate 100 mg BID 02/24/25 21:00 03/06/25 20:59 Furosemide 40 mg Q8H 02/24/25 16:30 03/26/25 08:29 Dexmedetomidine/ Sodium Chloride 400 mcg PROTOCOL 02/24/25 10:30 03/26/25 10:29 Ipratropium [place] 0.5 MG P5PTHIM 02/24/25 14:00 03/26/25 13:59 Budesonide 0.5 mg BIDRESP 02/24/25 18:00 03/26/25 17:59 Montelukast Sodium 10 mg DAILY 02/25/25 09:00 03/27/25 08:59 Linezolid 300 ml @ 150 mls/hr Q12H 02/24/25 11:00 03/06/25 10:59 Metolazone 5 mg DAILY 02/25/25 09:00 03/27/25 08:59 Folic Acid 1 mg DAILY 02/25/25 09:00 03/27/25 08:59 Melatonin 10 mg HS PRN 02/24/25 11:00 03/26/25 10:59 Pantoprazole Sodium 40 mg DAILY 02/24/25 11:00 03/26/25 10:59 Review of Systems: CONST: No fever, fatigue, or weight changes. EYES: No recent vision problems. ENT: No congestion, ear pain, or sore throat. C/V: No chest pain, palpitations, or edema. RESP: Admits to shortness of breath, orthopnea, and PND GI: No abdominal pain, nausea, vomiting, constipation, or diarrhea. : No incontinence or dysuria. SKIN: Admits to left behind the knee discomfort NEURO: No headache, focal numbness or weakness, dizziness, or seizures. PSYCH: No depression or anxiety. HEME: No abnormal bruising or bleeding. LYMPH: No swollen glands. Physical Examination: GENERAL: No acute distress. HEAD: Normal with no signs of head trauma. EYES: PERRLA, EOMI, conjunctiva and sclera normal. ENT: Hearing grossly intact, normal oropharynx. NECK: Supple without JVD. There is no tenderness, lymphadenopathy, or masses. No thyromegaly. Normal carotid upstrokes without bruits. LUNGS: Rales bilaterally HEART: Normal rate and rhythm. Normal S1 and S2 without murmurs, gallop or rub. VASC: Peripheral pulses +2 bilaterally. ABD: Bowel sounds normal, soft, nontender, no masses, no organomegaly. No audible bruits. : Not examined LYMPH: No lymphadenopathy noted. EXT: BLE with 2 to 3+ pitting edema. Left lower extremity is greater than right lower extremity SKIN: No rashes or lesions noted. NEURO: Awake, alert, and oriented x3. No focal sensory or strength deficits noted. Vital Signs (last 8hr) Date Time Temp Pulse Resp B/P (MAP) Pulse Ox O2 Delivery O2 Flow Rate FiO2 02/24/25 10:25 98 CPAP+ 40 02/24/25 09:55 98.4 111 27 146/67 96 Nonrebreathing Mask 15.0 02/24/25 07:09 112 22 N/Cannula Low lpm 3.0 32 02/24/25 07:08 112 22 02/24/25 06:04 106 33 130/58 100 Bi-PAP+ 30 02/24/25 04:34 106 29 136/70 98 Bi-PAP+ 30 Laboratory: Hematology Labs: Test 02/24/25 04:37 Range/Units White Blood Count 18.0 H 4.8-10.8 K/uL Red Blood Count 3.44 L 4.50-6.20 MIL/uL Hemoglobin 10.5 L 14.0-18.0 g/dL Hematocrit 33.2 L 42-54 % Mean Corpuscular Volume 96.5 79-99 fL Mean Corpuscular Hemoglobin 30.5 27.0-33.0 pg Mean Corpuscular Hemoglobin Concent 31.6 L 32.0-36.0 g/dL Red Cell Distribution Width 16.7 H 11.0-15.5 % Platelet Count 475 H 130-400 K/uL Mean Platelet Volume 8.8 7.5-10.5 fL Immature Granulocyte % (Auto) 0.8 0-1 % Neutrophils (%) (Auto) 74.7 40.0-77.0 % Lymphocytes (%) (Auto) 15.3 L 21.0-51.0 % Monocytes (%) (Auto) 6.6 3.0-13.0 % Eosinophils (%) (Auto) 1.8 0.0-8.0 % Basophils (%) (Auto) 0.8 0.0-5.0 % Neutrophils # (Auto) 13.5 H 1.8-7.7 K/uL Lymphocytes # (Auto) 2.8 1.0-4.8 K/uL Monocytes # (Auto) 1.2 H 0.1-1.0 K/uL Eosinophils # (Auto) 0.32 0.00-0.70 K/uL Basophils # (Auto) 0.15 0.00-0.20 K/uL Absolute Immature Granulocyte (auto 0.14 0-1 K/uL Nucleated Red Blood Cells 0.0 0.0-0.19 % Chemistry Labs: Test 02/24/25 08:23 02/24/25 04:37 02/23/25 21:51 02/23/25 19:04 Range/Units Lactic Acid Level 3.2 H 0.8-2.5 mmol/L Sodium Level 138 136-145 mmol/L Potassium Level 4.1 3.5-5.1 mmol/L Chloride Level 99 L 101-111 mmol/L Carbon Dioxide Level 25 21-32 mmol/L Blood Urea Nitrogen 25 H 7-18 mg/dL Creatinine 2.0 H 0.5-1.3 mg/dL Glomerular Filtration Rate Calc 41 >90 mL/min Random Glucose 125 H 70-105 mg/dL Total Calcium 8.8 8.5-10.1 mg/dL Magnesium Level 1.70 L 1.80-2.40 mg/dL Total Bilirubin 0.6 0.2-1.0 mg/dL Aspartate Amino Transf (AST/SGOT) 15 10-37 U/L Alanine Aminotransferase (ALT/SGPT) 8 L 12-78 U/L Alkaline Phosphatase 99 50-136 U/L B-Type Natriuretic Peptide 2410 H 0-100 pg/mL Total Protein 7.6 6.0-8.3 g/dL Albumin 2.4 L 3.5-5.0 g/dL Procalcitonin 0.34 0.05-0.5 ng/mL Troponin I High Sensitivity 312 *H 4-75 ng/L Total Creatine Kinase 36 # 21-232 U/L Coagulation Labs: Test 02/23/25 21:43 Range/Units Prothrombin Time 12.9 H 9.6-11.6 SEC Prothromb Time International Ratio 1.24 H 0.85-1.15 Activated Partial Thromboplast Time 33.6 26.3-35.5 SEC Diagnostics / Radiology: Assessment: -Acute on chronic diastolic heart failure -PNA -UTI -Normocytic anemia -Acute on chronic CKD stage IIIb -Fidelina esophagitis identified on EGD done 01/11/2025 -Bacterial endocarditis affecting the aortic valve (1.81x1.17 cm mass attached to the noncoronary cusp leaflet) identified on DRAKE done 01/11/2025 -Left atrial appendage thrombus identified on DRAKE done 01/11/2025 -Normal LV systolic function (LVEF: 60-65% by echo done 01/11/2025) -Elevated troponin (type II OR) -History of ITP in 12/2024 -Liver cirrhosis -Esophagitis by EGD 01/11/2025 -CAD s/p PCI with IA Integrilin, aspiration thrombectomy, PTCA, and KISHORE placement (Promus 4.0x16 mm) in the proximal LAD done on 12/19/2015 -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 -Continue Metolazone 5 mg p.o. daily furosemide 40 mg IV every 8 hours Bacterial endocarditis affecting the aortic valve (1.81x1.17 cm mass attached to the noncoronary cusp leaflet) identified on DRAKE done 01/11/2025 -Limited follow up 2D echocardiogram 01/23/2025 demonstrated vegetation measuring 0.8cm x 1.15cm with a traced area of 0.9cm (relatively unchanged) -Positive blood cultures collected 01/05/2025, 01/07/2025, 01/09/2025, 01/11/2025 -Blood cultures collected 01/17/2025 and 01/19/2025-negative -The patient will continue on IV antibiotic therapy previously tailored by ID -Plan for repeat DRAKE after respiratory status has improved Left atrial appendage thrombus identified on DRAKE done 01/11/2025 -He is not on any anticoagulation due to recent thrombocytopenia -Echocardiogram to reassess thrombus and valvular pathology Elevated troponin -HS troponin: 396,195 -We will restart the patient on aspirin 81 mg daily. He is not a candidate for statin therapy due to his liver dysfunction. ATTESTATION BY PHYSICIAN I have seen and examined the patient. I reviewed the documentation, medical decision making, and treatment plan as noted by the mid-level provider above. I agree with the findings and plan of care. ERNESTO JACOBO MD, VALERIE L FNP Feb 24, 2025 11:28 ERNESTO JACOBO MD Feb 24, 2025 11:32
--- NOTE | 2025-02-24 11:31 | NUR ---
DCP: HOME Pt states his daughter Stacey [phone] lives with him in his home. Pt recently applied for SSI and is waiting for response. P has toney graff, w/c, nebulizer at home, no in home care services. PCP is Georgina Joiner and he uses [facility] for rx. Community resources were provided to pt. Pt states he will return home at dc Addendum: 02/24/25 at 1132 by RAEANN BROWN SS Amended: Links added.
--- NOTE | 2025-02-24 11:36 | HMCIMG ---
US RENAL SONOGRAM HISTORY: Acute renal insufficiency COMPARISON: None TECHNIQUE: Renal and bladder ultrasound study was performed. FINDINGS: The right kidney measures 11.2 x 5.8 x 5.5 cm. The left kidney measures 11.3 x 5.9 x 5.1 cm. No evidence of hydronephrosis is seen of either kidney. Both kidneys are seen. Bladder is partially distended. The study is limited due to overlying bowel gas and large body habitus. IMPRESSION: 1. No hydronephrosis is seen.
--- NOTE | 2025-02-24 13:10 | HP ---
[facility] HISTORY AND PHYSICAL Date of Service: Feb 24, 2025 Time of Service: 13:05 HISTORY OF PRESENT ILLNESS: [ ] February 24, 2025 54-year-old male with a complex medical history including recent hospitalization with a Gram-positive bacteremia secondary to Staph aureus, severe sepsis and endocarditis with echogenic vegetations on noncoronary cusps and right coronary cusp as well as left atrial appendage clot on January 11, 2025 presented to the ED days history of worsening shortness of breath. He was discharged on January 31, 2025 with long-term IV linezolid via PICC line for infective endocarditis. Since 3 days he reports progressive dyspnea, worsened acutely today. He denies chest pain but notes fatigue and exertional intolerance. There is no reported fever or chills. He was in mild respiratory distress on arrival. Notably has a past medical history of Fidelina esophagitis, uncontrolled diabetes mellitus type 2 BRENDAN, immune thrombocytopenic purpura, UTI Klebsiella and substance abuse with cocaine alcohol and tobacco. So on physical examination he is positive for shortness of breaths and cough no hemoptysis. His lungs have expiratory wheezes and diffuse crackling bilaterally. He is tachycardic with regular rhythm. His WBC count is at 18, hemoglobin at 10.5 and platelet count at 470 K with leukocytosis chronic anemia and thrombocytosis, chemistry is with creatinine showing 2.2, BUN at and CO2 at 18.2 magnesium low consistent with BRENDAN, electrolyte derangements. His arterial blood gas analysis reveals a pH of 7.469, PaCO2 of 26, PO2 of 54.6, HC03 of 18.2 and saturation of 90.2 Representing acute hypoxic respiratory failure with respiratory alkalosis. Serum lactate is elevated at 3.6 persistent lactic acidosis. BNP is at 2410 suggesting cardiac strain or volume overload. And troponin is elevated at [address] segment elevated [place]. and urine analysis positive concerning for UT I and nephropathy due to positive hyaline casts. Chest x-ray reveals diffuse bilateral opacities consistent with pneumonia and chest CT scan reveals bilateral pleural effusion bilateral ground-glass pulmonary infiltrates are seen renal ultrasound reveals no hydronephrosis. And a CT scan also revealed gallstone. Echo is ordered to assess vegetations, LA clot and EF. Lower extrem ity Doppler revealed no DVT, Matthews's cyst versus hematoma in the left knee. EGD from prior history Fidelina esophagitis. The patient is admitted to ICU with the critical Care and Cardiology and Infectious Disease consult has been placed for further management currently on Precedex drip and CPAP setting with tidal volume of 657 and a rate of 36 and PIP of15 and ve of 23.2. Furosemide 40 q.12h is added in addition to his antibiotics monitoring the patient closely and discuss the goal of care with the patient and he agreed upon with it. REVIEW OF SYSTEMS CONSTITUTIONAL: Positive for fatigue, mild subjective fever. NEUROLOGICAL: Denies headache, amaurosis fugax, motor weakness, sensory deficit, vertigo/spinning sensation, gait abnormalities, or tremors. ENT: No hearing loss, otalgia, otorrhea, rhinitis, rhinorrhea, hoarseness, or sore throat. CARDIOVASCULAR: Palpitations, no angina. PULMONARY: Shortness of breath, cough, no hemoptysis. SLEEP: Denies morning headaches, daytime somnolence or napping. Denies difficulty falling asleep, staying asleep, waking from sleep. Denies knowledge of snoring. GASTROINTESTINAL: Denies any type of dysphagia to either liquids or solids. Denies nausea, vomiting, pyrosis, early satiety, abdominal pain, diarrhea, constipation, or changes in stool consistency or caliber. Denies coffee-ground emesis, hematemesis, hematochezia, or melanotic stools. GENITOURINARY: Denies frequency, urgency, nocturia, hematuria or incontinence (Storage/Irritative symptoms.) Low urinary stream, straining to void, urinary intermittency or hesitancy, splitting of the voiding stream, terminal dribbling. ENDOCRINOLOGIC: Denies polyuria, polydipsia, polyphagia or heat/cold intolerances. HEMATOLOGIC: Denies thrombophilia/previous clots, or coagulopathy/bleeding disorders. ONCOLOGIC: Denies personal history of malignancy. DERMATOLOGIC: Denies rashes or pruritus. PSYCHIATRIC: Denies any suicidal or homicidal ideation. Denies hallucinations. PAST MEDICAL HISTORY: fatty liver by CT on 01/05/2025 Severe sepsis Gram-positive bacteremia secondary to Staphylococcus aureus, Hypodense echogenic mobile vegetation to right coronary cusp leaflet on echocardiogram 01/05/2025 Left atrial appendage clot present. on DRAKE 01/11 non coronary cusp leaflet has vegetation that measures 1.8 x 1.1 cm. on DRAKE 0 01/11 Urinary tract infection, secondary to Klebsiella pneumoniae, Pneumonia, Acute kidney injury, POA New onset Uncontrolled Diabetes mellitius type2, POA Cocaine abuse Alcohol abuse Tobacco dependence Significant proteinuria Diabetic nephropathy Gallstones,,Fidelina esophagitis on EGD 01/11 SURGICAL HISTORY: [Heart stent] PAST SOCIAL HISTORY: Patient smokes one pack of cigarettes daily but only5 times a week. Patient [id number] beers daily but also only5 times a week. Patient reports occasional use of both marijuana and cocaine. Patient denies any other illegal drug use. 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 Patient has poor access to health care due to lack of health insurance. Patient is typically independent of all his ADLs. Patient denies difficulty pain is bills. Patient lives with his daughter Hannah Jin FAMILY HISTORY: Patient reports no known family medical history. Coded Allergies: No Known Drug Allergies (Unverified Allergy, Unknown, 12/18/15) PHYSICAL EXAM GENERAL APPEARANCE ill appearing, alert, mildly agitated, in moderate respiratory distress. NEUROLOGICAL: Cranial nerves II-XII grossly intact. Motor is 5/5 in bilateral upper and lower extremities proximal to distal. No sensory deficits. HEENT: Face is symmetric. Pupils are equal and reactive. Extraocular movements are intact. NECK: Supple. No JVD. No thyromegaly. No submental, submandibular, pre- /postauricular, occipital or supraclavicular lymphadenopathy. CHEST: Normal chest expansion. No Telemetry. LUNGS: Expiratory wheeze and diffuse crackles bilaterally CARDIOVASCULAR: Regular. S1 and S2 normal. No appreciable rubs, murmurs or gallops. Tachycardia present ABDOMEN: Soft, nontender, and nondistended. There is no rebound, voluntary guarding, or rigidity. : Deferred. No Ortega. EXTREMITIES: Bilateral 2+ pitting edema, left knee warm swollen, limited ROM and pitting edema more on the left compared to right. SKIN: No skin breakdown. Vital Sign (Last 24 Hours) 02/24/25 02/24/25 02/24/25 09:55 12:11 12:15 Temp 98.4 Pulse 100 Resp 27 B/P (MAP) 119/58 Pulse Ox 100 O2 Delivery Nonrebreathing Mask O2 Flow Rate 10.0 FiO2 100 LABS: Laboratory: Test 02/24/25 09:48 3/28/25 08:28 02/24/25 08:23 02/24/25 04:37 Range/Units Influenza Type A Antigen Negative For Type A NEGATIVE Influenza Type B Antigen Negative For Type B NEGATIVE SARS-CoV-2, RNA, NAAT NEGATIVE SARS CoV-2 NEGATIVE Total Bilirubin 0.7 0.2-1.0 mg/dL Direct Bilirubin 0.1 0.0-0.3 mg/dL Aspartate Amino Transf (AST/SGOT) 49 H 10-37 U/L Alanine Aminotransferase (ALT/SGPT) 8 L 12-78 U/L Alkaline Phosphatase 103 50-136 U/L Total Protein 8.0 6.0-8.3 g/dL Albumin 2.5 L 3.5-5.0 g/dL Lactic Acid Level 3.2 H 0.8-2.5 mmol/L White Blood Count 18.0 H 4.8-10.8 K/uL Red Blood Count 3.44 L 4.50-6.20 MIL/uL Hemoglobin 10.5 L 14.0-18.0 g/dL Hematocrit 33.2 L 42-54 % Mean Corpuscular Volume 96.5 79-99 fL Mean Corpuscular Hemoglobin 30.5 27.0-33.0 pg Mean Corpuscular Hemoglobin Concent 31.6 L 32.0-36.0 g/dL Red Cell Distribution Width 16.7 H 11.0-15.5 % Platelet Count 475 H 130-400 K/uL Mean Platelet Volume 8.8 7.5-10.5 fL Immature Granulocyte % (Auto) 0.8 0-1 % Neutrophils (%) (Auto) 74.7 40.0-77.0 % Lymphocytes (%) (Auto) 15.3 L 21.0-51.0 % Monocytes (%) (Auto) 6.6 3.0-13.0 % Eosinophils (%) (Auto) 1.8 0.0-8.0 % Basophils (%) (Auto) 0.8 0.0-5.0 % Neutrophils # (Auto) 13.5 H 1.8-7.7 K/uL Lymphocytes # (Auto) 2.8 1.0-4.8 K/uL Monocytes # (Auto) 1.2 H 0.1-1.0 K/uL Eosinophils # (Auto) 0.32 0.00-0.70 K/uL Basophils # (Auto) 0.15 0.00-0.20 K/uL Absolute Immature Granulocyte (auto 0.14 0-1 K/uL Nucleated Red Blood Cells 0.0 0.0-0.19 % Sodium Level 138 136-145 mmol/L Potassium Level 4.1 3.5-5.1 mmol/L Chloride Level 99 L 101-111 mmol/L Carbon Dioxide Level 25 21-32 mmol/L Blood Urea Nitrogen 25 H 7-18 mg/dL Creatinine 2.0 H 0.5-1.3 mg/dL Glomerular Filtration Rate Calc 41 >90 mL/min Random Glucose 125 H 70-105 mg/dL Total Calcium 8.8 8.5-10.1 mg/dL Magnesium Level 1.70 L 1.80-2.40 mg/dL B-Type Natriuretic Peptide 2410 H 0-100 pg/mL Procalcitonin 0.34 0.05-0.5 ng/mL Test 02/24/25 03:31 02/23/25 21:51 02/23/25 21:45 02/23/25 21:43 Range/Units Blood Gas Specimen Type Arterial Arterial Blood pH 7.469 H 7.350-7.450 Arterial Blood Partial Pressure CO2 26 L 35-48 mmHg Arterial Blood Partial Pressure O2 54.6 *L 83.0-108.0 mmHg Arterial Blood HCO3 18.2 L 21.0-28.0 mmol/L Arterial Blood Oxygen Saturation 90.9 L 94.0-98.0 % Arterial Blood Base Excess -3.6 L -2.0-3.0 mmol/L Blood Gas Temperature 37.0 35.5-37.0 CELSIUS Blood Gas Flow-by 2.00 0.00-15.00 L/min Blood Gas Vent Mode NC ROOM AIR FiO2 28.0 % Blood Gas Specimen Comment RR RN AMRTHA Troponin I High Sensitivity 312 *H 4-75 ng/L Urine Color LIGHT-YELLOW YELLOW Urine Appearance CLEAR CLEAR Urine pH 5.0 5.0-8.0 Urine Specific [place] 1.011 1.001-1.031 Urine Protein 20 H NEGATIVE mg/dL Urine Glucose (UA) NEGATIVE NEGATIVE mg/dL Urine Ketones NEGATIVE NEGATIVE mg/dL Urine Occult Blood +- (TRACE) H NEGATIVE Urine Nitrate NEGATIVE NEGATIVE Urine Bilirubin NEGATIVE NEGATIVE mg/dL Urine Urobilinogen 0.2 0.2-1.0 mg/dL Urine Leukocyte Esterase 75 H NEGATIVE Charlie/uL Urine RBC 2-5 H 0-1 /HPF Urine WBC 11-25 H 0-1 /HPF Urine Squamous Epithelial Cells RARE 0-2 /HPF Urine Other Crystals (Auto) 1 None Seen /HPF Urine Bacteria RARE None Seen /HPF Urine Hyaline Casts 2-5 H 0-1 /LPF /LPF Urine Other Casts 4 None Seen /LPF Prothrombin Time 12.9 H 9.6-11.6 SEC Prothromb Time International Ratio 1.24 H 0.85-1.15 Activated Partial Thromboplast Time 33.6 26.3-35.5 SEC Test 02/23/25 19:04 Range/Units Total Creatine Kinase 36 # 21-232 U/L Current Medications Medications (Trade) Dose Ordered Sig/Asya Route PRN Reason Start Time Stop Time Status Last Admin Dose Admin Acetaminophen/ Hydrocodone Bitart (NORco 5/325MG) 1 tab Q6H PRN PO MODERATE PAIN (4-6) 02/23/25 23:00 02/28/25 22:59 02/24/25 09:33 1 TAB Albuterol (DUOneb) 1 UDVIAL [id number] IH 02/24/25 00:00 03/26/25 00:00 02/24/25 07:08 1 UDVIAL Aspirin (Aspirin 81mg Ec Tab) 81 mg DAILY PO 02/25/25 09:00 03/27/25 08:59 Budesonide (Pulmicort 0.5 Mg/2ml) 0.5 mg BIDRESP IH 02/24/25 18:00 03/26/25 17:59 Dexmedetomidine/ Sodium Chloride (PRECEdex 400MCG/ 100ML-NS) 400 mcg PROTOCOL IV 02/24/25 10:30 03/26/25 10:29 Doxycycline Hyclate (Doxycycline Hyclate) 100 mg BID PO 02/24/25 21:00 03/06/25 20:59 Folic Acid (FOLic ACID 1 MG TABLET) 1 mg DAILY PO 02/25/25 09:00 03/27/25 08:59 Furosemide (LASix 40MG VIAL) 40 mg Q12H IV 02/24/25 08:30 02/24/25 10:20 DC 02/24/25 09:34 40 MG Furosemide (LASix 40MG VIAL) 40 mg Q8H IV 02/24/25 16:30 03/26/25 08:29 Heparin Sodium (Porcine) (HEParin 5,000 UNIT VIAL) 5,000 unit BID SQ 02/24/25 09:00 03/26/25 08:59 02/24/25 09:34 5,000 UNIT Ipratropium [place] (AtrovENT UD) 0.5 MG [id number] IH 02/24/25 14:00 03/26/25 13:59 Linezolid 300 ml @ 150 mls/hr Q12H IV 02/24/25 11:00 03/06/25 10:59 02/24/25 10:42 150 MLS/HR Melatonin (Melatonin) 10 mg HS PRN PO INSOMNIA 02/24/25 11:00 03/26/25 10:59 Metolazone (zarOXOlyn) 5 mg DAILY PO 02/25/25 09:00 03/27/25 08:59 Montelukast Sodium (SinguLAIR) 10 mg DAILY PO 02/25/25 09:00 03/27/25 08:59 Pantoprazole Sodium (PROTonix 40MG INJ) 40 mg DAILY IVP 02/24/25 11:00 03/26/25 10:59 02/24/25 11:00 40 MG Pharmacy Profile Note (Lace Assessment) 1 each AD MISC 02/24/25 10:30 02/24/25 10:32 DC Pharmacy Profile Note (Pharmacy Communication) 1 each ONCE MISC 02/23/25 23:00 02/23/25 23:48 DC Piperacillin Sod/ Tazobactam Sod (Zosyn 3.375gm+NS 50ml) 3.375 gm Q8H IV 02/24/25 05:00 03/06/25 04:59 02/24/25 05:14 3.375 GM Sodium Chloride 1,000 ml @ 75 mls/hr [id number] IV 02/23/25 20:00 02/23/25 23:03 DC 02/23/25 20:08 75 MLS/HR Vancomycin HCl (Vancomycin Protocol) 1 each AD IV 02/23/25 19:00 02/23/25 19:33 DC DIAGNOSTICS / RADIOLOGY: PATIENT: ADAM JIN III MR#: [id number] : 1980 SEX: M AGE: 44 LOCATION: ED ORDER 26 STATUS: [facility] ER REPORT#: [id number] SERVICE 25 REASON: CHEST PAIN ORDERING PHYSICIAN: BIGG TAMAYO PROCEDURE: CXR1VW - CHEST 1VW PORTABLE CHEST RADIOGRAPH INDICATION: CHEST PAIN COMPARISON: 01/31/2025 FINDINGS: Stable left PICC. Heart size is normal. The pulmonary vascularity and jimmie appear normal. Extensive bilateral lung opacities. No significant pleural effusion noted. No pneumothorax detected. IMPRESSION: Extensive bilateral lung pneumonia or other airspace process. Follow-up chest radiograph is advised in order to ensure resolution. DICTATED BY: KIARA PETERSON MD DATE: 02/23/251847 ELECTRONICALLY SIGNED BY: KIARA PETERSON MD DATE: 02/23/251851 [ ]PATIENT: ADAM JIN III MR#: [id number] : 1980 SEX: M AGE: 44 LOCATION: [facility] ORDER 57 STATUS: [facility] ER REPORT#: [id number] SERVICE 56 REASON: LLE swelling ORDERING PHYSICIAN: BIGG TAMAYO PROCEDURE: VENOUS UNI - US VENOUS DOPPLER UNILATERAL ULTRASOUND VENOUS DOPPLER LEFT LOWER EXTREMITY INDICATION: Pain and swelling. TECHNIQUE: Routine grayscale and color Doppler ultrasound of the left lower extremity veins performed. COMPARISON: None. FINDINGS: The demonstrated veins of the left lower extremity including the common femoral vein, femoral vein, and popliteal vein are associated with normal compressibility, augmentation, and flow. Normal respiratory variation was identified. No evidence for echogenic intraluminal thrombus. 21.8 x 5.2 x 10.1 cm nonvascular complex cyst behind the left knee. IMPRESSION: No evidence for deep venous thrombosis. 21.8 x 5.2 x 10.1 cm nonvascular complex cyst behind the left knee suggesting large Matthews's cyst or hematoma. DICTATED BY: KIARA PETERSON MD DATE: 02/23/252027 ELECTRONICALLY SIGNED BY: KIARA PETERSON MD DATE: 02/23/252034 PATIENT: ADAM JIN III MR#: [id number] : 1980 SEX: M AGE: 44 LOCATION: [facility] ORDER 0809 STATUS: ADM IN REPORT#: [id number] SERVICE 6 REASON: soa ORDERING PHYSICIAN: HERMINIO NAPOLES MD PROCEDURE: CHEST WO - CT CHEST W/O CONTRAST CT CHEST W/O CONTRAST HISTORY: Shortness of breath COMPARISON: None TECHNIQUE: Multiple sequential axial images of the chest were obtained from the thoracic inlet through upper abdomen. Patient was not given contrast through intravenous route. FINDINGS: Bilateral pleural effusions are seen. Extensive bilateral groundglass pulmonary infiltrates. Gallstones are seen in the gallbladder. There is no evidence of pneumothorax. There are normal size mediastinal and hilar lymph nodes. The heart is not enlarged. Degenerative changes of the thoracolumbar spine are present. There is no evidence of adrenal nodule. IMPRESSION: 1. Bilateral pleural effusions are seen. Extensive bilateral groundglass pulmonary infiltrates. Gallstones are seen in the gallbladder. CT was performed with one or more following dose reduction techniques: automated exposure control, adjustment of the mA and kv according to patient's size, or use of a iterative reconstruction technique. DICTATED BY: CAROL HOWARD MD DATE: 02/24/25 1049 ELECTRONICALLY SIGNED BY: CAROL HOWARD MD DATE: 02/24/25 1055 PATIENT: ADAM JIN III MR#: [id number] : 1980 SEX: M AGE: 44 LOCATION: [facility] ORDER 0809 STATUS: ADM IN REPORT#: [id number] SERVICE 08 REASON: soa ORDERING PHYSICIAN: HERMINIO NAPOLES MD PROCEDURE: CHEST WO - CT CHEST W/O CONTRAST CT CHEST W/O CONTRAST HISTORY: Shortness of breath COMPARISON: None TECHNIQUE: Multiple sequential axial images of the chest were obtained from the thoracic inlet through upper abdomen. Patient was not given contrast through intravenous route. FINDINGS: Bilateral pleural effusions are seen. Extensive bilateral groundglass pulmonary infiltrates. Gallstones are seen in the gallbladder. There is no evidence of pneumothorax. There are normal size mediastinal and hilar lymph nodes. The heart is not enlarged. Degenerative changes of the thoracolumbar spine are present. There is no evidence of adrenal nodule. IMPRESSION: 1. Bilateral pleural effusions are seen. Extensive bilateral groundglass pulmonary infiltrates. Gallstones are seen in the gallbladder. CT was performed with one or more following dose reduction techniques: automated exposure control, adjustment of the mA and kv according to patient's size, or use of a iterative reconstruction technique. DICTATED BY: CAROL HOWARD MD DATE: 02/24/25 1049 ELECTRONICALLY SIGNED BY: CAROL HOWARD MD DATE: 02/24/25 1055 ASSESSMENT: Sepsis, POA Pneumonia, POA Acute hypoxic respiratory failure on CPAP, ABG confirms PO2 less than 60 mmHg, POA Endocarditis with vegetations, POA Heart failure exacerbation acute on congestive heart failure, POA Acute kidney injury stage II, POA Non ST segment elevated [place], POA ITP, POA Uncontrolled diabetes mellitus type 2, POA Diabetic nephropathy, POA Cocaine, alcohol and tobacco use disorder, POA Fidelina esophagitis, POA Matthews's cyst, hematoma, left knee, POA Electrolyte abnormalities, POA Chronic anemia, POA PLAN: Infectious disease: ID consult has been placed for further recommendation and treatment plan. Continue IV linezolid q.12h. Continue Zosyn 3.375 g IV q.8h. Continue IV doxycycline 100 mg b.i.d.. Monitor cultures blood and urine. Fungal coverage p.r.n. depending on new fevers or worsening. Pulmonary: Critical Care consult has been placed. Supplemental oxygen support, CPAP support and BiPAP setting as necessary to maintain SpO2 levels greater than 92 Budesonide, albuterol ipratropium nebulizations. Monitor ABGs, O2 sats, chest x-ray. Appreciate Pulmonary and critical Care consult suggestions. Cardiovascular: Telemetry Repeat echocardiogram. Cardiology consult has been placed for further insights and coordinated management plan. Consider anticoagulation once bleeding risk reassessed. Monitor troponin, BNP. Furosemide q.8h IV for diuresis. Renal/metabolic Monitor CR, BUN, GFR. Avoid nephrotoxins. Monitor glucose, proteinuria. Replete potassium, magnesium, phosphorus. for per facility protocol. GI/nutrition Pantoprazole IV daily. Monitor for GI bleeding. Add thiamine, folate multivitamins if chronic alcohol use. Hematology Monitor platelets for ITP versus reactive thrombocytosis. Consider iron studies, B12, reticulocyte count for anemia. Musculoskeletal: Monitor left knee swelling Avoid NSAIDs due to BRENDAN. Ortho referral if worsening. Sedation/neuro: Precedex for sedation, taper as tolerated. Determine at bedtime for sleep hygiene. ICU delirium prevention with 3 orientation, mobility and lytes during the day. Endocrine: Glucose control with insulin. Monitor for ketones and TKA signs. Consider A1c when stable. Substance use: Assess for withdrawal. [facility] protocol p.r.n. if needed. Offered smoking cessation and substance abuse counseling. Case management consult has been placed for further discharge planning. ATTESTATION BY PHYSICIAN I have seen and examined the patient. I reviewed the documentation, medical decision making, and treatment plan as noted by the resident above. I agree with the findings and plan of care. Herminio Napoles MD, RAGHAVA R MD Feb 24, 2025 13:10
[2025-02-24] MEDS: IpraTROPium 0.5 MG/2.5 ML INH IH SCH (14:29)
[2025-02-24] MEDS: NYSTatin 100000 UNIT/ML 5ML UDCUP PO SCH (16:08)
[2025-02-24] MEDS: BUDESONIDE 0.5 MG/2 ML INH IH SCH (18:00)
--- NOTE | 2025-02-24 18:34 | HMCSR ---
APPROVED REPORT EXAM: LIMITED Two-dimensional and M-mode echocardiogram with Doppler and color Doppler. Study Details: prior: December 2024 INDICATION ICD: vegetation and thromub evaluation 2D Dimensions IVSd1.1 (0.7-1.1cm)LVEF(%)58.4 (>50%)LVED Vol(simp.)212.2 mL LVDd6.0 (3.8-5.6cm)FS(%)31 %LVES Vol(simp.)95.2 mL PWd1.0 (0.7-1.1cm)LA (2D)4.5 (1.6-4.0cm)LVEF(%, simp.)55 % LVDs4.1 (2.5-4.0cm)Ao Root(2D)2.9 (2.0-3.7cm) LVOT diam2.3 (1.8-2.4cm) Deformation Strain Apical 4-13.0 % Apical 2-14.0 % Apical 3-13.0 % Global Strain-13.0 % Aortic Valve AoV Vmax2.3 m/Gama Peak GR22.0 mmHgLVOT Vmax1.5 m/s AoV VTI0.5 mAo Mean GR13.4 mmHgLVOT VTI0.27 m JEANNE (VMAX)2.4 cm2Al P1/2T71 msAVA (VTI) 2.4 cm2 Left Ventricle The left ventricle is severely dilated. GS -13%. There is normal left ventricular wall thickness. LVE F is 50-55%. Right Ventricle The right ventricle is normal size. The right ventricular systolic function is normal. Atria The left atrium size is normal. Aortic Valve Aortic valve is trileaflet. Severe aortic regurgitation. There is aortic valvular vegetation present, 1.4cm. There is no aortic valvular stenosis. Mitral Valve The mitral valve is normal in structure and function. There is mild mitral valve regurgitation noted. There is no mitral valve stenosis. Tricuspid Valve The tricuspid valve is normal in structure and function. There is no tricuspid valve regurgitation no anabella. Conclusion LVEF is 50-55%. GS -13%. There is aortic valvular vegetation present, 1.4cm. Severe aortic regurgitation.
[2025-02-24] MEDS: DOXYCYCLINE HYCLATE 100 MG TABLET PO SCH (20:09)
[2025-02-24] MEDS: PROMETHAZINE HCL 25 MG/ML 1ML AMPULE IM ONE (21:11)
[2025-02-24] MEDS: MELATONIN 5 MG TABLET PO PRN (23:14)
[2025-02-25] VITALS (51 sets, daily range): BP systolic 96–147; BP diastolic 31–85; PULSE 89–106; RESP 19–37; TEMP 97–98.3; O2SAT 90–100
[2025-02-25 04:06] LABS: ABG HCO3 20.4 mmol/L (21.0-28.0); ABG OXYGEN SATURATION 98.5 % (94.0-98.0); ABG PCO2 26 mmHg (35-48); ABG PH 7.509 (7.350-7.450); DEVICE COMMENT RB RN IRMA; PO2, ARTERIAL BG 112.3 mmHg (83.0-108.0); VENT MODE, BG NRBM (ROOM AIR)
[2025-02-25 04:37] LABS: BASOPHILS # (AUTO) 0.16 K/uL (0.00-0.20); EOSINOPHILS # (AUTO) 0.31 K/uL (0.00-0.70); EOSINOPHILS % (AUTO) 1.9 % (0.0-8.0); HEMATOCRIT 31.7 % (42-54); LYMPHOCYTES # (AUTO) 2.3 K/uL (1.0-4.8); MEAN CORPUSCULAR HEMOGLOBIN 30.7 pg (27.0-33.0); MEAN CORPUSCULAR HGB CONC 32.2 g/dL (32.0-36.0); MEAN CORPUSCULAR VOLUME 95.5 fL (79-99); MONOCYTES % (AUTO) 6.3 % (3.0-13.0); NEUTROPHILS # (AUTO) 12.4 K/uL (1.8-7.7); NEUTROPHILS % (AUTO) 76.2 % (40.0-77.0); PLATELET COUNT (AUTO) 443 K/uL (130-400); RED BLOOD CELL COUNT(AUTO) 3.32 MIL/uL (4.50-6.20); RED CELL DISTRIBUTION WIDTH 16.5 % (11.0-15.5); WHITE BLOOD COUNT (AUTO) 16.3 K/uL (4.8-10.8)
[2025-02-25 04:55] LABS: ALBUMIN 2.3 g/dL (3.5-5.0); BILIRUBIN,TOTAL 0.6 mg/dL (0.2-1.0); CREATININE 2.1 mg/dL (0.5-1.3); POTASSIUM 3.4 mmol/L (3.5-5.1); TOTAL PROTEIN, SERUM 7.3 g/dL (6.0-8.3)
--- NOTE | 2025-02-25 08:10 | HMCIMG ---
PORTABLE CHEST RADIOGRAPH INDICATION: dyspnea COMPARISON: 02/24/2025 CT chest FINDINGS: Tip of left PICC within the SVC. Heart size is normal. The pulmonary vascularity and jimmie appear normal. Extensive left greater than right lung centrilobular opacities. Small right greater than left pleural effusions are better visualized on the comparison CT study. No pneumothorax detected. IMPRESSION: Extensive left greater than right lung pneumonia or other airspace process, and small right greater than left pleural effusions are better visualized on the comparison CT study.
[2025-02-25] MEDS: FOLic ACID 1 MG TABLET PO SCH ×2 (09:00→09:07)
[2025-02-25] MEDS: ASPIRIN 81 MG EC TAB PO SCH (09:07)
[2025-02-25] MEDS: monteLUKAST sodIUM 10 MG TAB PO SCH (09:07)
[2025-02-25] MEDS: THIAMINE HCL 100 MG TABLET PO SCH (09:08)
[2025-02-25] MEDS: metoLAZONE 2.5 MG TABLET PO SCH (09:08)
[2025-02-25] MEDS: ALTEplase 2MG VIAL 2 MG/VIAL VIAL IVCATH SCH (10:44)
--- NOTE | 2025-02-25 10:44 | PN ---
[facility] PROGRESS NOTE Date Patient Seen: Feb 25, 2025 Time of Visit: 10:44 Supervising Physician: Bonifacio Dumont MD Primary Care Physician: Self Referral Outpatient Specialists: Inpatient Consults: Dr Dumont PROBLEM LIST: - Acute Hypoxic respiratory failure POA requiring NIV -Acute on chronic diastolic heart failure w/ EF 50-55% on 2 D echo POA - Aortica Valvular vegetation present 1.4cm -Severe Aortic regurgitation Severe multifocal bilateral Bacterial Pneumonia SCAP score 20 Points ( Recommend ICU monitoring) -Bilateral Pleural Effusions POA -Acute Cystitis POA -Normocytic anemia -Acute on chronic CKD stage IIIb -Fidelina esophagitis identified on EGD done 01/11/2025 -Bacterial endocarditis affecting the aortic valve (1.81x1.17 cm mass attached to the noncoronary cusp leaflet) identified on DRAKE done 01/11/2025 -Left atrial appendage thrombus identified on DRAKE done 01/11/2025 -Elevated troponin (type II IN) -thrombocytosis -Liver cirrhosis MELD Score 22 Points ( 19.6 % Estimated 3 month Mortality) -cholelithiasis -Esophagitis by EGD 01/11/2025 -CAD s/p PCI with IA Integrilin, aspiration thrombectomy, PTCA, and KISHORE placement (Promus 4.0x16 mm) in the proximal LAD done on 12/19/2015 -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 he is hemodynamically stable with a blood pressure of 125/51, heart rate in the 80s respiratory rate of 24 unlabored saturating 95% on5 L via nasal cannula. Urine output 1.7 L in the last 24 hours. WBCs 16.3 H&H 7.2/31.7 Platelet count of 443 K. chemistry potassium 3.4 chloride of 99 carbon [id number] BUN creatinine 2.1 GFR of 39 glucose 106 lactic acid of 2.8 trending down total calcium 8.4 and albumin of 1.60. Sensitive troponin of 404 with previously be in 258. Respiratory culture growing Gram-negative rods and Gram-positive rods. CV surgeon has been consulted per Cardiology for aortic endocarditis severe aortic regurgitation. We will continue to follow cardiology recommendations and for now patient may downgrade from ICU. REVIEW OF SYSTEMS: 12 point ROS reviewed with patient. Pertinent positives mentioned above. Ot herwise negative. PHYSICAL EXAM: GENERAL: alert, weak, awake oriented x 3 HEENT: EOMI, Sclera non icteric, moist mucosa NECK: Supple, no JVD, trachea midline LUNGS: Crackles breath sounds bilaterally. No wheezes HEART: Regular rate and rhythm. Normal S1 and S2, without murmurs ABD: Obese Abdomen soft, nontender. Bowel sounds present EXT: No clubbing cyanosis or edema NEURO: Alert and oriented to person, follows commands Vital Signs (last 8hr) Date Time Temp Pulse Resp B/P (MAP) Pulse Ox O2 Delivery O2 Flow Rate FiO2 02/25/25 08:45 89 28 Non Rebreather 15.0 100 02/25/25 08:41 95 Non-Rebreather+ 15 100 02/25/25 08:15 97.3 101 30 100 02/25/25 08:00 99 26 100 02/25/25 07:15 103 22 02/25/25 07:15 99 25 125/51 100 CPAP 02/25/25 07:14 102 22 40 02/25/25 07:00 104 32 123/57 100 CPAP 02/25/25 05:30 104 28 130/74 97 Nonrebreathing Mask 10.0 02/25/25 05:00 101 20 145/71 100 Nonrebreathing Mask 10.0 02/25/25 04:30 100 24 147/85 100 Nonrebreathing Mask 10.0 02/25/25 04:00 98.1 101 27 121/49 100 Nonrebreathing Mask 10.0 02/25/25 04:00 91 Non-Rebreather+ 15 100 02/25/25 03:30 100 24 117/77 100 Nonrebreathing Mask 10.0 02/25/25 03:00 101 27 125/62 99 Nonrebreathing Mask 10.0 LABS: Hematology Labs: Test 02/25/25 04:07 Range/Units White Blood Count 16.3 H 4.8-10.8 K/uL Red Blood Count 3.32 L 4.50-6.20 MIL/uL Hemoglobin 10.2 L 14.0-18.0 g/dL Hematocrit 31.7 L 42-54 % Mean Corpuscular Volume 95.5 79-99 fL Mean Corpuscular Hemoglobin 30.7 27.0-33.0 pg Mean Corpuscular Hemoglobin Concent 32.2 32.0-36.0 g/dL Red Cell Distribution Width 16.5 H 11.0-15.5 % Platelet Count 443 H 130-400 K/uL Mean Platelet Volume 9.0 7.5-10.5 fL Immature Granulocyte % (Auto) 0.6 0-1 % Neutrophils (%) (Auto) 76.2 40.0-77.0 % Lymphocytes (%) (Auto) 14.0 L 21.0-51.0 % Monocytes (%) (Auto) 6.3 3.0-13.0 % Eosinophils (%) (Auto) 1.9 0.0-8.0 % Basophils (%) (Auto) 1.0 0.0-5.0 % Neutrophils # (Auto) 12.4 H 1.8-7.7 K/uL Lymphocytes # (Auto) 2.3 1.0-4.8 K/uL Monocytes # (Auto) 1.0 0.1-1.0 K/uL Eosinophils # (Auto) 0.31 0.00-0.70 K/uL Basophils # (Auto) 0.16 0.00-0.20 K/uL Absolute Immature Granulocyte (auto 0.10 0-1 K/uL Nucleated Red Blood Cells 0.0 0.0-0.19 % Chemistry Labs: Test 02/25/25 09:52 02/25/25 04:07 02/24/25 19:51 02/24/25 13:13 Range/Units Lactic Acid Level 2.7 H 0.8-2.5 mmol/L Sodium Level 138 136-145 mmol/L Potassium Level 3.4 L 3.5-5.1 mmol/L Chloride Level 99 L 101-111 mmol/L Carbon Dioxide Level 25 21-32 mmol/L Blood Urea Nitrogen 26 H 7-18 mg/dL Creatinine 2.1 H 0.5-1.3 mg/dL Glomerular Filtration Rate Calc 39 >90 mL/min Random Glucose 106 H 70-105 mg/dL Total Calcium 8.4 L 8.5-10.1 mg/dL Magnesium Level 1.60 L 1.80-2.40 mg/dL Total Bilirubin 0.6 0.2-1.0 mg/dL Aspartate Amino Transf (AST/SGOT) 20 10-37 U/L Alanine Aminotransferase (ALT/SGPT) 5 L 12-78 U/L Alkaline Phosphatase 93 50-136 U/L Troponin I High Sensitivity 404 *H 4-75 ng/L Total Protein 7.3 6.0-8.3 g/dL Albumin 2.3 L 3.5-5.0 g/dL Whole Blood Glucose 122 H 70-110 MG/DL Total Creatine Kinase 23 # 21-232 U/L Test 02/24/25 08:28 02/24/25 04:37 Range/Units Direct Bilirubin 0.1 0.0-0.3 mg/dL B-Type Natriuretic Peptide 2410 H 0-100 pg/mL Procalcitonin 0.34 0.05-0.5 ng/mL Coagulation Labs: Test 02/23/25 21:43 Range/Units Prothrombin Time 12.9 H 9.6-11.6 SEC Prothromb Time International Ratio 1.24 H 0.85-1.15 Activated Partial Thromboplast Time 33.6 26.3-35.5 SEC DIAGNOSTICS / RADIOLOGY RESULTS: [ ] IMAGING REPORT Signed PATIENT: ADAM MOE III MR#: [id number] : 1980 SEX: M AGE: 44 LOCATION: [facility] ORDER 5 STATUS: ADM IN REPORT#: [id number] SERVICE 5 REASON: dyspnea ORDERING PHYSICIAN: FATMATA PALUMBO PROCEDURE: CXR1VW - CHEST 1VW PORTABLE CHEST RADIOGRAPH INDICATION: dyspnea COMPARISON: 02/24/2025 CT chest FINDINGS: Tip of left PICC within the SVC. Heart size is normal. The pulmonary vascularity and jimmie appear normal. Extensive left greater than right lung centrilobular opacities. Small right greater than left pleural effusions are better visualized on the comparison CT study. No pneumothorax detected. IMPRESSION: Extensive left greater than right lung pneumonia or other airspace process, and small right greater than left pleural effusions are better visualized on the comparison CT study. DICTATED BY: KIARA PETERSON MD DATE: 02/25/25805 ELECTRONICALLY SIGNED BY: KIARA PETERSON MD DATE: 02/25/25809 PLAN NEURO: Minimize central acting medications as possible. Fall Precautions. Well lighted room through the day and minimize interruptions through the night to prevent acute delirium. PULMONARY: Supplemental 02 as needed Titrate Fio2 to keep Spo2 > or = 90% DuoNebs and CPT as needed IS hourly while awake for pulmonary hygiene Out of bed to chair as tolerated CARDIOVASCULAR: Follow hemodynamics. Titrate vasopressor to keep MAP >65 or systolic blood pressure >95mmHg LINES: [ ]PIV GI & NUTRITION: Continue nutritional support Aspirations precautions Prokinetic agents and laxatives as needed KIDNEYS & ELECTROLYTES: Strict monitoring of intake and output Daily weights Avoid nephrotoxic agents Monitor electrolytes and replace as needed Goal urine output of 30mL/hr or 0.5mL/kg/hr Urine output: [ ] Fluid Balance: [ ] ENDOCRINE: Maintain blood glucose between 100-180 at all times. Insulin sliding scale for blood glucose management INFECTIOUS DISEASE: Trend temperature. Mccormack-culture if febrile. Micro: [ ] Antibiotics: [ ] HEMATOLOGY & COAGULATION: Monitor H&H. Keep Hgb > 7 Transfuse 1 unit of PRBC for Hgb < 7 Transfuse 1 pack of platelets of platelets < 20, 000 Watch for any signs and symptoms of bleeding SKIN: Pressure ulcer prevention per facility protocol Rehab: PT/OT Prophylaxis: GI: [ ] Protonix DVT: Heparin Code Status: Full Resuscitation Disposition: May downgrade to PCCU Other: Total patient care time exceeds 35 minutes excluding all procedures. Case was discussed and seen with my supervising physician. The above plan was formulated and agreed upon. ATTESTATION BY PHYSICIAN I attest that I reviewed and discussed the case with the Physician Pathology Technologist as well as agree with the Physician Pathology Technologist's findings, plans of care, and documentation above. Bonifacio Brantley MD, NELLY J ARNP Feb 25, 2025 10:44
[2025-02-25] MEDS ORDERED: PoTASSium chl 10% ELIXIR 20MEQ 20 MEQ/15 ML UDCUP PO PRN (11:00)
[2025-02-25] MEDS ORDERED: PoTASSium chloRIDE 20MEQ ER 20 MEQ ERTAB PO PRN (11:00)
--- NOTE | 2025-02-25 11:20 | PN ---
[facility] Cardiology Progress Note PROBLEM LIST: [-2D echo on 02/24, EF 60-65%, demonstrating with severe AI, 1.4 cm aortic leaflet vegetation -Acute on chronic diastolic heart failure -PNA -UTI -Normocytic anemia -Acute on chronic CKD stage IIIb, baseline creatinine of 2 -Fidelina esophagitis identified on EGD done 01/11/2025 -Bacterial endocarditis affecting the aortic valve (1.81x1.17 cm mass attached to the noncoronary cusp leaflet) identified on RDAKE done 01/11/2025 -Lactic acidosis, improving -Left atrial appendage thrombus identified on DRAKE done 01/11/2025, not currently an anticoagulation due to thrombocytopenia -Normal LV systolic function (LVEF: 60-65% by echo done 01/11/2025) -Elevated troponin (type II [place]) -History of ITP in 12/2024 -Liver cirrhosis -Esophagitis by EGD 01/11/2025 -CAD s/p PCI with IA Integrilin, aspiration thrombectomy, PTCA, and KISHORE placement (Promus 4.0x16 mm) in the proximal LAD done on 12/19/2015 -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 He feels better than yesterday. Breathing has improved. No palpitations, chest discomfort. Echo yesterday showed severe AI with a 1.4 cm aortic vegetation in the non coronary cusp, which was also identified on DRAKE done 01/11. He has been coming to the emergency room for IV antibiotics endocarditis. He remains on IV Lasix, but metolazone 5 mg was added today No fever. Does have some leg edema that is better but not entirely resolved.] PHYSICAL EXAMINATION: Vital Signs (Last 48hrs) Date Time Temp Pulse Resp B/P (MAP) Pulse Ox O2 Delivery O2 Flow Rate FiO2 02/25/25 08:45 89 28 Non Rebreather 15.0 100 02/25/25 08:41 95 Non-Rebreather+ 15 100 02/25/25 08:15 97.3 101 30 100 02/25/25 08:00 99 26 100 02/25/25 07:15 103 22 02/25/25 07:15 99 25 125/51 100 CPAP 02/25/25 07:14 102 22 40 02/25/25 07:00 104 32 123/57 100 CPAP 02/25/25 05:30 104 28 130/74 97 Nonrebreathing Mask 10.0 02/25/25 05:00 101 20 145/71 100 Nonrebreathing Mask 10.0 02/25/25 04:30 100 24 147/85 100 Nonrebreathing Mask 10.0 02/25/25 04:00 98.1 101 27 121/49 100 Nonrebreathing Mask 10.0 02/25/25 04:00 91 Non-Rebreather+ 15 100 02/25/25 03:30 100 24 117/77 100 Nonrebreathing Mask 10.0 02/25/25 03:00 101 27 125/62 99 Nonrebreathing Mask 10.0 02/25/25 02:30 101 19 127/58 96 Nonrebreathing Mask 10.0 02/25/25 02:27 100 22 02/25/25 02:00 97 21 134/53 99 Nonrebreathing Mask 10.0 02/25/25 01:30 99 22 137/64 99 Nonrebreathing Mask 10.0 02/25/25 01:00 103 25 128/68 99 CPAP 40 02/25/25 00:30 97 23 132/53 100 CPAP 40 02/25/25 00:26 98 33 40 02/25/25 00:00 90 Non-Rebreather+ 15 100 02/25/25 00:00 105 33 137/71 100 CPAP 40 02/24/25 23:00 104 26 114/50 91 CPAP 40 02/24/25 22:30 108 38 122/45 89 Nonrebreathing Mask 10.0 02/24/25 22:00 102 24 119/45 100 Nonrebreathing Mask 10.0 02/24/25 21:30 97 29 120/68 100 Nonrebreathing Mask 10.0 02/24/25 21:00 107 29 128/61 100 Nonrebreathing Mask 10.0 02/24/25 20:30 107 43 120/51 100 Nonrebreathing Mask 10.0 02/24/25 20:00 90 Non-Rebreather+ 15 100 02/24/25 20:00 98.1 02/24/25 20:00 112 50 114/57 91 Nonrebreathing Mask 10.0 02/24/25 19:30 103 34 118/45 100 Nonrebreathing Mask 10.0 02/24/25 19:00 105 36 126/55 100 Nonrebreathing Mask 10.0 02/24/25 18:44 104 22 Non Rebreather 12.0 100 02/24/25 16:30 105 28 112/42 98 Nonrebreathing Mask 10.0 02/24/25 16:15 106 26 130/52 100 Nonrebreathing Mask 10.0 02/24/25 16:09 98 CPAP+ 40 02/24/25 16:00 98.8 109 26 140/64 98 Nonrebreathing Mask 10.0 02/24/25 15:45 104 26 123/64 100 Nonrebreathing Mask 10.0 02/24/25 15:30 94 26 131/64 96 Nonrebreathing Mask 10.0 02/24/25 15:15 104 26 118/58 100 02/24/25 14:46 107 26 140/68 100 Nonrebreathing Mask 10.0 02/24/25 14:30 102 29 100 02/24/25 14:29 104 34 02/24/25 14:27 104 34 40 02/24/25 13:45 104 28 119/47 94 Nonrebreathing Mask 10.0 02/24/25 13:30 102 26 123/51 95 02/24/25 13:15 103 27 115/50 95 02/24/25 13:00 113 28 156/63 96 CPAP 40 02/24/25 12:45 106 28 128/50 97 CPAP 40 02/24/25 12:31 97.2 107 27 125/59 99 CPAP 40 02/24/25 12:15 100 27 119/58 100 Nonrebreathing Mask 10.0 02/24/25 12:11 109 26 Non Rebreather 12.0 100 02/24/25 12:00 98 CPAP+ 40 02/24/25 12:00 106 27 157/99 99 Nonrebreathing Mask 10.0 02/24/25 11:45 105 27 143/67 92 CPAP 40 02/24/25 11:30 105 26 136/64 92 CPAP 40 02/24/25 11:15 107 27 137/70 91 CPAP 40 02/24/25 11:00 105 27 142/69 94 CPAP 40 02/24/25 10:45 111 27 118/45 94 CPAP 40 02/24/25 10:30 109 27 136/64 99 02/24/25 10:25 98 CPAP+ 40 02/24/25 10:15 110 27 121/65 97 02/24/25 10:00 110 27 147/70 96 CPAP 40 02/24/25 09:55 111 27 146/67 96 02/24/25 09:55 98.4 111 27 146/67 96 Nonrebreathing Mask 15.0 02/24/25 07:09 112 22 N/Cannula Low lpm 3.0 32 02/24/25 07:08 112 22 02/24/25 06:04 106 33 130/58 100 Bi-PAP+ 30 02/24/25 04:34 106 29 136/70 98 Bi-PAP+ 30 02/24/25 02:00 111 29 128/51 96 Nasal Cannula* 2 02/24/25 00:32 78 31 30 02/24/25 00:14 73 02/23/25 23:33 106 29 136/63 97 Bi-PAP+ 30 02/23/25 20:45 109 35 142/68 98 Bi-PAP+ 30 02/23/25 19:45 108 35 30 02/23/25 19:39 109 34 132/61 98 Nasal Cannula* 2 02/23/25 18:23 98.1 110 24 123/69 95 Room Air 0 General: Morbidly obese, chronically ill-appearing, no acute distress. HEENT: Atraumatic. Hearing is intact. No facial asymmetry, nasal discharge, icterus or lid lag. Cardiovascular: Rhythm and rate regular. No murmur. 2+ edema. Respiratory: Lungs clear to the bases. No retractions, wheezes or rhonchi. Gastrointestinal: Benign, soft, nontender, nondistended. Extremities: No amputations. Range of motion is grossly normal. Neurology/Psychiatry: No tremors. Speech is clear. Alert and oriented x 3. Cooperative and pleasant. LABORATORY DATA: [ Laboratory Tests Test 02/24/25 12:15 02/24/25 13:13 02/24/25 16:15 02/24/25 19:51 Urine Random Creatinine 35.00 mg/dL (30-135) Urine Random Sodium 99 mmol/l (40-220) Lactic Acid Level 3.6 mmol/L (0.8-2.5) H 3.5 mmol/L (0.8-2.5) H Total Creatine Kinase 23 U/L (21-232) # Troponin I High Sensitivity 258.6 ng/L (4-75) *H Whole Blood Glucose 122 MG/DL (70-110) H Test 02/25/25 04:05 02/25/25 04:07 02/25/25 09:52 Blood Gas Specimen Type Arterial Arterial Blood pH 7.509 (7.350-7.450) Arterial Blood Partial Pressure CO2 26 mmHg (35-48) L Arterial Blood Partial Pressure O2 112.3 mmHg (83.0-108.0) H Arterial Blood HCO3 20.4 mmol/L (21.0-28.0) L Arterial Blood Oxygen Saturation 98.5 % (94.0-98.0) H Arterial Blood Base Excess -1.0 mmol/L (-2.0-3.0) Blood Gas Temperature 37.0 CELSIUS (35.5-37.0) Blood Gas Flow-by 15.00 L/min (0.00-15.00) Blood Gas Vent Mode NRBM (ROOM AIR) FiO2 100.0 % Blood Gas Specimen Comment RB RN CATHERINE White Blood Count 16.3 K/uL (4.8-10.8) H Red Blood Count 3.32 MIL/uL (4.50-6.20) L Hemoglobin 10.2 g/dL (14.0-18.0) L Hematocrit 31.7 % (42-54) L Mean Corpuscular Volume 95.5 fL (79-99) Mean Corpuscular Hemoglobin 30.7 pg (27.0-33.0) Mean Corpuscular Hemoglobin Concent 32.2 g/dL (32.0-36.0) Red Cell Distribution Width 16.5 % (11.0-15.5) H Platelet Count 443 K/uL (130-400) H Mean Platelet Volume 9.0 fL (7.5-10.5) Immature Granulocyte % (Auto) 0.6 % (0-1) Neutrophils (%) (Auto) 76.2 % (40.0-77.0) Lymphocytes (%) (Auto) 14.0 % (21.0-51.0) L Monocytes (%) (Auto) 6.3 % (3.0-13.0) Eosinophils (%) (Auto) 1.9 % (0.0-8.0) Basophils (%) (Auto) 1.0 % (0.0-5.0) Neutrophils # (Auto) 12.4 K/uL (1.8-7.7) H Lymphocytes # (Auto) 2.3 K/uL (1.0-4.8) Monocytes # (Auto) 1.0 K/uL (0.1-1.0) Eosinophils # (Auto) 0.31 K/uL (0.00-0.70) Basophils # (Auto) 0.16 K/uL (0.00-0.20) Absolute Immature Granulocyte (auto 0.10 K/uL (0-1) Nucleated Red Blood Cells 0.0 % (0.0-0.19) Sodium Level 138 mmol/L (136-145) Potassium Level 3.4 mmol/L (3.5-5.1) L Chloride Level 99 mmol/L (101-111) L Carbon Dioxide Level 25 mmol/L (21-32) Blood Urea Nitrogen 26 mg/dL (7-18) H Creatinine 2.1 mg/dL (0.5-1.3) H Glomerular Filtration Rate Calc 39 mL/min (>90) Random Glucose 106 mg/dL (70-105) H Lactic Acid Level 2.8 mmol/L (0.8-2.5) H 2.7 mmol/L (0.8-2.5) H Total Calcium 8.4 mg/dL (8.5-10.1) L Magnesium Level 1.60 mg/dL (1.80-2.40) L Total Bilirubin 0.6 mg/dL (0.2-1.0) Aspartate Amino Transf (AST/SGOT) 20 U/L (10-37) Alanine Aminotransferase (ALT/SGPT) 5 U/L (12-78) L Alkaline Phosphatase 93 U/L (50-136) Troponin I High Sensitivity 404 ng/L (4-75) *H Total Protein 7.3 g/dL (6.0-8.3) Albumin 2.3 g/dL (3.5-5.0) L ] RADIOLOGY: [Echo as described above.] PLAN: [Plans are for DRAKE next week once his respiratory status will allow this. Patient also need CT surgery evaluation. He is on aspirin, metolazone 5 mg daily and Lasix 40 mg IV Q eight. He is on linezolid, Zosyn, and doxycycline. Follow daily weights and I&Os. He would benefit from afterload reduction with DARRELL/ARB.] SENDY MORENO PAC Feb 25, 2025 11:20
[2025-02-25] MEDS: MAGNESIUM 2GM PREMIX 50ML 50 ML IV PRN (11:27)
[2025-02-25] MEDS: PoTASSium chloRIDE 10MEQ/100ML 100 ML IV PRN (11:28)
--- NOTE | 2025-02-25 15:09 | PN ---
[facility] PROGRESS NOTE Date of Service: Feb 25, 2025 Time of Service: 15:05 SUBJECTIVE: [ HPI : 54-year-old male with a complex medical history including recent hospitalization with a Gram-positive bacteremia secondary to Staph aureus, severe sepsis and endocarditis with echogenic vegetations on noncoronary cusps and right coronary cusp as well as left atrial appendage clot on January 11, 2025 presented to the ED days history of worsening shortness of breath. He was discharged on January 31, 2025 with long-term IV linezolid via PICC line for infective endocarditis. Since 3 days he reports progressive dyspnea, worsened acutely today. He denies chest pain but notes fatigue and exertional intolerance. There is no reported fever or chills. He was in mild respiratory distress on arrival. Notably has a past medical history of Fidelina esophagitis, uncontrolled diabetes mellitus type 2 BRENDAN, immune thrombocytopenic purpura, UTI Klebsiella and substance abuse with cocaine alcohol and tobacco. So on physical examination he is positive for shortness of breaths and cough no hemoptysis. His lungs have expiratory wheezes and diffuse crackling bilaterally. He is tachycardic with regular rhythm. His WBC count is at 18, hemoglobin at 10.5 and platelet count at 470 K with leukocytosis chronic anemia and thrombocytosis, chemistry is with creatinine showing 2.2, BUN at and CO2 at 18.2 magnesium low consistent with BRENDAN, electrolyte derangements. His arterial blood gas analysis reveals a pH of 7.469, PaCO2 of 26, PO2 of 54.6, HC03 of 18.2 and saturation of 90.2 Representing acute hypoxic respiratory failure with respiratory alkalosis. Serum lactate is elevated at 3.6 persistent lactic acidosis. BNP is at 2410 suggesting cardiac strain or volume overload. And troponin is elevated at [address] segment elevated KY. and urine analysis positive concerning for UTI and nephropathy due to positive hyaline casts. Chest x-ray reveals diffuse bilateral opacities consistent with pneumonia and chest CT scan reveals bilateral pleural effusion bilateral ground-glass pulmonary infiltrates are seen renal ultrasound reveals no hydronephrosis. And a CT scan also revealed gallstone. Echo is ordered to assess vegetations, LA clot and EF. Lower extremity Doppler revealed no DVT, Matthews's cyst versus hematoma in the left knee. EGD from prior history Fidelina esophagitis. The patient is admitted to ICU with the critical Care and Cardiology and Infectious Disease consult has been placed for further management currently on Precedex drip and CPAP setting with tidal volume of 657 and a rate of 36 and PIP of15 and ve of 23.2. Furosemide 40 q.12h is added in addition to his antibiotics monitoring the patient closely and discuss the goal of care with the patient and he agreed upon with it. 02/25/2025. Patient seen and examined along with RN. Feels better , breathing has improved. Continues to be on IV Lasix and metolazone was added. Cardiology and critical Care on board CT surgery was consulted for severe aortic regurgitation.] REVIEW OF SYSTEMS CONSTITUTIONAL: Positive for fatigue, mild subjective fever. NEUROLOGICAL: Denies headache, amaurosis fugax, motor weakness, sensory deficit, vertigo/spinning sensation, gait abnormalities, or tremors. ENT: No hearing loss, otalgia, otorrhea, rhinitis, rhinorrhea, hoarseness, or sore throat. CARDIOVASCULAR: Palpitations, no angina. PULMONARY: Shortness of breath, cough, no hemoptysis. SLEEP: Denies morning headaches, daytime somnolence or napping. Denies difficulty falling asleep, staying asleep, waking from sleep. Denies knowledge of snoring. GASTROINTESTINAL: Denies any type of dysphagia to either liquids or solids. Denies nausea, vomiting, pyrosis, early satiety, abdominal pain, diarrhea, constipation, or changes in stool consistency or caliber. Denies coffee-ground emesis, hematemesis, hematochezia, or melanotic stools. GENITOURINARY: Denies frequency, urgency, nocturia, hematuria or incontinence (Storage/Irritative symptoms.) Low urinary stream, straining to void, urinary intermittency or hesitancy, splitting of the voiding stream, terminal dribbling. ENDOCRINOLOGIC: Denies polyuria, polydipsia, polyphagia or heat/cold intolerances. HEMATOLOGIC: Denies thrombophilia/previous clots, or coagulopathy/bleeding disorders. ONCOLOGIC: Denies personal history of malignancy. DERMATOLOGIC: Denies rashes or pruritus. PSYCHIATRIC: Denies any suicidal or homicidal ideation. Denies hallucinations. PHYSICAL EXAM GENERAL APPEARANCE ill appearing, alert, mildly agitated, in moderate respiratory distress. NEUROLOGICAL: Cranial nerves II-XII grossly intact. Motor is 5/5 in bilateral upper and lower extremities proximal to distal. No sensory deficits. HEENT: Face is symmetric. Pupils are equal and reactive. Extraocular movements are intact. NECK: Supple. No JVD. No thyromegaly. No submental, submandibular, pre- /postauricular, occipital or supraclavicular lymphadenopathy. CHEST: Normal chest expansion. No Telemetry. LUNGS: Expiratory wheeze and diffuse crackles bilaterally CARDIOVASCULAR: Regular. S1 and S2 normal. No appreciable rubs, murmurs or gallops. Tachycardia present ABDOMEN: Soft, nontender, and nondistended. There is no rebound, voluntary guarding, or rigidity. : Deferred. No Ortega. EXTREMITIES: Bilateral 2+ pitting edema, left knee warm swollen, limited ROM and pitting edema more on the left compared to right. SKIN: No skin breakdown. Vital Signs (last 8hr) Date Time Temp Pulse Resp B/P (MAP) Pulse Ox O2 Delivery O2 Flow Rate FiO2 02/25/25 14:03 100 24 02/25/25 11:44 92 26 N/Cannula Low lpm 5.0 40 02/25/25 08:45 89 28 Non Rebreather 15.0 100 02/25/25 08:41 95 Non-Rebreather+ 15 100 02/25/25 08:15 97.3 101 30 100 02/25/25 08:00 99 26 100 02/25/25 07:15 103 22 02/25/25 07:15 99 25 125/51 100 CPAP 02/25/25 07:14 102 22 40 LABS: Laboratory: Test 02/25/25 09:52 02/25/25 04:07 02/25/25 04:05 02/24/25 19:51 Range/Units Lactic Acid Level 2.7 H 0.8-2.5 mmol/L White Blood Count 16.3 H 4.8-10.8 K/uL Red Blood Count 3.32 L 4.50-6.20 MIL/uL Hemoglobin 10.2 L 14.0-18.0 g/dL Hematocrit 31.7 L 42-54 % Mean Corpuscular Volume 95.5 79-99 fL Mean Corpuscular Hemoglobin 30.7 27.0-33.0 pg Mean Corpuscular Hemoglobin Concent 32.2 32.0-36.0 g/dL Red Cell Distribution Width 16.5 H 11.0-15.5 % Platelet Count 443 H 130-400 K/uL Mean Platelet Volume 9.0 7.5-10.5 fL Immature Granulocyte % (Auto) 0.6 0-1 % Neutrophils (%) (Auto) 76.2 40.0-77.0 % Lymphocytes (%) (Auto) 14.0 L 21.0-51.0 % Monocytes (%) (Auto) 6.3 3.0-13.0 % Eosinophils (%) (Auto) 1.9 0.0-8.0 % Basophils (%) (Auto) 1.0 0.0-5.0 % Neutrophils # (Auto) 12.4 H 1.8-7.7 K/uL Lymphocytes # (Auto) 2.3 1.0-4.8 K/uL Monocytes # (Auto) 1.0 0.1-1.0 K/uL Eosinophils # (Auto) 0.31 0.00-0.70 K/uL Basophils # (Auto) 0.16 0.00-0.20 K/uL Absolute Immature Granulocyte (auto 0.10 0-1 K/uL Nucleated Red Blood Cells 0.0 0.0-0.19 % Sodium Level 138 136-145 mmol/L Potassium Level 3.4 L 3.5-5.1 mmol/L Chloride Level 99 L 101-111 mmol/L Carbon Dioxide Level 25 21-32 mmol/L Blood Urea Nitrogen 26 H 7-18 mg/dL Creatinine 2.1 H 0.5-1.3 mg/dL Glomerular Filtration Rate Calc 39 >90 mL/min Random Glucose 106 H 70-105 mg/dL Total Calcium 8.4 L 8.5-10.1 mg/dL Magnesium Level 1.60 L 1.80-2.40 mg/dL Total Bilirubin 0.6 0.2-1.0 mg/dL Aspartate Amino Transf (AST/SGOT) 20 10-37 U/L Alanine Aminotransferase (ALT/SGPT) 5 L 12-78 U/L Alkaline Phosphatase 93 50-136 U/L Troponin I High Sensitivity 404 *H 4-75 ng/L Total Protein 7.3 6.0-8.3 g/dL Albumin 2.3 L 3.5-5.0 g/dL Blood Gas Specimen Type Arterial Arterial Blood pH 7.509 H 7.350-7.450 Arterial Blood Partial Pressure CO2 26 L 35-48 mmHg Arterial Blood Partial Pressure O2 112.3 H 83.0-108.0 mmHg Arterial Blood HCO3 20.4 L 21.0-28.0 mmol/L Arterial Blood Oxygen Saturation 98.5 H 94.0-98.0 % Arterial Blood Base Excess -1.0 -2.0-3.0 mmol/L Blood Gas Temperature 37.0 35.5-37.0 CELSIUS Blood Gas Flow-by 15.00 0.00-15.00 L/min Blood Gas Vent Mode NRBM ROOM AIR FiO2 100.0 % Blood Gas Specimen Comment RB RN CATHERINE Whole Blood Glucose 122 H 70-110 MG/DL Test 02/24/25 13:13 02/24/25 12:15 02/24/25 09:48 02/24/25 08:28 Range/Units Total Creatine Kinase 23 # 21-232 U/L Urine Random Creatinine 35.00 30-135 mg/dL Urine Random Sodium 99 40-220 mmol/l Influenza Type A Antigen Negative For Type A NEGATIVE Influenza Type B Antigen Negative For Type B NEGATIVE SARS-CoV-2, RNA, NAAT NEGATIVE SARS CoV-2 NEGATIVE Direct Bilirubin 0.1 0.0-0.3 mg/dL Test 02/24/25 04:37 02/23/25 21:45 02/23/25 21:43 Range/Units B-Type Natriuretic Peptide 2410 H 0-100 pg/mL Procalcitonin 0.34 0.05-0.5 ng/mL Urine Color LIGHT-YELLOW YELLOW Urine Appearance CLEAR CLEAR Urine pH 5.0 5.0-8.0 Urine Specific Decker 1.011 1.001-1.031 Urine Protein 20 H NEGATIVE mg/dL Urine Glucose (UA) NEGATIVE NEGATIVE mg/dL Urine Ketones NEGATIVE NEGATIVE mg/dL Urine Occult Blood +- (TRACE) H NEGATIVE Urine Nitrate NEGATIVE NEGATIVE Urine Bilirubin NEGATIVE NEGATIVE mg/dL Urine Urobilinogen 0.2 0.2-1.0 mg/dL Urine Leukocyte Esterase 75 H NEGATIVE Charlie/uL Urine RBC 2-5 H 0-1 /HPF Urine WBC 11-25 H 0-1 /HPF Urine Squamous Epithelial Cells RARE 0-2 /HPF Urine Other Crystals (Auto) 1 None Seen /HPF Urine Bacteria RARE None Seen /HPF Urine Hyaline Casts 2-5 H 0-1 /LPF /LPF Urine Other Casts 4 None Seen /LPF Prothrombin Time 12.9 H 9.6-11.6 SEC Prothromb Time International Ratio 1.24 H 0.85-1.15 Activated Partial Thromboplast Time 33.6 26.3-35.5 SEC Current Medications Medications (Trade) Dose Ordered Sig/Asya Route PRN Reason Start Time Stop Time Status Last Admin Dose Admin Acetaminophen/ Hydrocodone Bitart (NORco 5/325MG) 1 tab Q6H PRN PO MODERATE PAIN (4-6) 02/23/25 23:00 02/28/25 22:59 02/25/25 09:18 1 TAB Albuterol (DUOneb) 1 UDVIAL [id number] IH 02/24/25 00:00 02/24/25 14:15 DC 02/24/25 07:08 1 UDVIAL Alteplase, Recombinant (CathFLO 2MG VIAL) 4 mg ONCE IVCATH 02/25/25 09:30 02/25/25 11:00 DC 02/25/25 10:44 4 MG Aspirin (Aspirin 81mg Ec Tab) 81 mg DAILY PO 02/25/25 09:00 03/27/25 08:59 02/25/25 09:07 81 MG Budesonide (Pulmicort 0.5 Mg/2ml) 0.5 mg BIDRESP IH 02/24/25 18:00 03/26/25 17:59 02/25/25 07:14 0.5 MG Dexmedetomidine/ Sodium Chloride (PRECEdex 400MCG/ 100ML-NS) 400 mcg PROTOCOL IV 02/24/25 10:30 03/26/25 10:29 Doxycycline Hyclate (Doxycycline Hyclate) 100 mg BID PO 02/24/25 21:00 03/06/25 20:59 02/25/25 09:07 100 MG Folic Acid (FOLic ACID 1 MG TABLET) 1 mg DAILY PO 02/25/25 09:00 03/27/25 08:59 02/25/25 09:07 1 MG Folic Acid (FOLic ACID 1 MG TABLET) 1 mg DAILY PO 02/25/25 09:00 03/27/25 08:59 Furosemide (LASix 40MG VIAL) 40 mg Q12H IV 02/24/25 08:30 02/24/25 10:20 DC 02/24/25 09:34 40 MG Furosemide (LASix 40MG VIAL) 40 mg Q8H IV 02/24/25 16:30 03/26/25 08:29 02/25/25 09:07 40 MG Heparin Sodium (Porcine) (HEParin 5,000 UNIT VIAL) 5,000 unit BID SQ 02/24/25 09:00 03/26/25 08:59 02/25/25 09:08 5,000 UNIT Ipratropium Rawson (AtrovENT UD) 0.5 MG [id number] IH 02/24/25 14:00 03/26/25 13:59 02/25/25 14:03 0.5 MG Linezolid 300 ml @ 150 mls/hr Q12H IV 02/24/25 11:00 03/06/25 10:59 02/25/25 10:44 150 MLS/HR Magnesium Sulfate 50 ml @ 0 mls/hr PROTOCOL PRN IV low magnesium 02/25/25 11:00 03/27/25 10:59 02/25/25 11:27 25 MLS/HR Melatonin (Melatonin) 10 mg HS PRN PO INSOMNIA 02/24/25 11:00 03/26/25 10:59 02/24/25 23:14 10 MG Metolazone (zarOXOlyn) 5 mg DAILY PO 02/25/25 09:00 03/27/25 08:59 02/25/25 09:08 5 MG Montelukast Sodium (SinguLAIR) 10 mg DAILY PO 02/25/25 09:00 03/27/25 08:59 02/25/25 09:07 10 MG Nystatin (NYSTatin [id number] UNIT/ML 5ML UDCUP) 5 ml QID PO 02/24/25 17:00 03/26/25 16:59 02/25/25 13:41 5 ML Ondansetron HCl (zoFRAN 4MG INJ) 4 mg Q6H PRN IVP NAUSEA/VOMITING 02/24/25 21:00 03/26/25 20:59 Pantoprazole Sodium (PROTonix 40MG INJ) 40 mg DAILY IVP 02/24/25 11:00 03/26/25 10:59 02/25/25 09:07 40 MG Pharmacy Profile Note (Lace Assessment) 1 each AD MISC 02/24/25 10:30 02/24/25 10:32 DC Pharmacy Profile Note (Pharmacy Communication) 1 each ONCE MISC 02/23/25 23:00 02/23/25 23:48 DC Piperacillin Sod/ Tazobactam Sod (Zosyn 3.375gm+NS 50ml) 3.375 gm Q8H IV 02/24/25 05:00 03/06/25 04:59 02/25/25 13:41 3.375 GM Potassium Chloride 100 ml @ 100 mls/hr AD PRN IV POTASSIUM PROTOCOL 02/25/25 11:00 03/27/25 10:59 02/25/25 11:28 100 MLS/HR Potassium Chloride 100 ml @ 100 mls/hr AD PRN IV POTASSIUM PROTOCOL 02/25/25 11:00 03/27/25 10:59 Potassium Chloride (K-Dur/Klor-Con 20meq) 10 meq AD PRN PO POTASSIUM PROTOCOL 02/25/25 11:00 03/27/25 10:59 Potassium Chloride (KCl 10% Elixir 20meq/15ml) 10 meq AD PRN PO POTASSIUM PROTOCOL 02/25/25 11:00 03/27/25 10:59 Sodium Chloride 1,000 ml @ 75 mls/hr [id number] IV 02/23/25 20:00 02/23/25 23:03 DC 02/23/25 20:08 75 MLS/HR Thiamine HCl (Vitamin B-1) 100 mg DAILY PO 02/25/25 09:00 03/27/25 08:59 02/25/25 09:08 100 MG Vancomycin HCl (Vancomycin Protocol) 1 each AD IV 02/23/25 19:00 02/23/25 19:33 DC DIAGNOSTICS / RADIOLOGY: [ ] ASSESSMENT: Sepsis, POA Pneumonia, POA Acute hypoxic respiratory failure on CPAP, ABG confirms PO2 less than 60 mmHg, POA Endocarditis with vegetations, POA Heart failure exacerbation acute on congestive heart failure, POA Acute kidney injury stage II, POA Non ST segment elevated [place], POA ITP, POA Uncontrolled diabetes mellitus type 2, POA Diabetic nephropathy, POA Cocaine, alcohol and tobacco use disorder, POA Fidelina esophagitis, POA Matthews's cyst, hematoma, left knee, POA Electrolyte abnormalities, POA Chronic anemia, POA PLAN: Infectious disease: ID consult has been placed for further recommendation and treatment plan. Continue IV linezolid q.12h. Continue Zosyn 3.375 g IV q.8h. Continue IV doxycycline 100 mg b.i.d.. Monitor cultures blood and urine. Fungal coverage p.r.n. depending on new fevers or worsening. Pulmonary: Critical Care consult has been placed. Supplemental oxygen support, CPAP support and BiPAP setting as necessary to ma intain SpO2 levels greater than 92 Budesonide, albuterol ipratropium nebulizations. Monitor ABGs, O2 sats, chest x-ray. Appreciate Pulmonary and critical Care consult suggestions. Cardiovascular: Telemetry Repeat echocardiogram reviewed patient with severe aortic regurgitation. We will need CT surgery consult Cardiology consult appreciated we will need pola next week Consider anticoagulation once bleeding risk reassessed. Monitor troponin, BNP. Furosemide q.8h IV for diuresis. Added on metolazone Renal/metabolic Monitor CR, BUN, GFR. Avoid nephrotoxins. Monitor glucose, proteinuria. Replete potassium, magnesium, phosphorus. for per facility protocol. GI/nutrition Pantoprazole IV daily. Monitor for GI bleeding. Add thiamine, folate multivitamins if chronic alcohol use. Hematology Monitor platelets for ITP versus reactive thrombocytosis. Consider iron studies, B12, reticulocyte count for anemia. Musculoskeletal: Monitor left knee swelling Avoid NSAIDs due to BRENDAN. Ortho referral if worsening. Sedation/neuro: Precedex for sedation, taper as tolerated. Determine at bedtime for sleep hygiene. ICU delirium prevention with 3 orientation, mobility and lytes during the day. Endocrine: Glucose control with insulin. Monitor for ketones and TKA signs. Consider A1c when stable. Substance use: Assess for withdrawal. CIKY protocol p.r.n. if needed. Offered smoking cessation and substance abuse counseling. Case management consult has been placed for further discharge planning. OLAYINKA ARCE MD Feb 25, 2025 15:08
[2025-02-25] MEDS ORDERED: PHARMACY COMMUNICATION 1 EACH EACH MISC SCH (15:30)
[2025-02-25] MEDS ORDERED: acetaMINOPHEN/coDEINE 120/12MG 5ML PO PRN (15:30)
[2025-02-25] MEDS ORDERED: PHARMACY COMMUNICATION MISC SCH (15:30)
[2025-02-25 16:06] LABS: AMPHET/METH SCREEN,URINE NEGATIVE (NEGATIVE); BARBITURATE SCREEN, URINE NEGATIVE (NEGATIVE); BENZODIAZEPINES SCREEN,URINE NEGATIVE (NEGATIVE); CANNABINOID SCREEN,URINE NEGATIVE (NEGATIVE); COCAINE SCREEN,URINE NEGATIVE (NEGATIVE); OPIATE SCREEN,URINE POSITIVE (NEGATIVE); PHENCYCLIDINE SCREEN,URINE NEGATIVE (NEGATIVE)
--- NOTE | 2025-02-25 16:14 | PN ---
INFECTIOUS DISEASE FOLLOWUP NOTE DATE OF SERVICE: 02/25/2025 SUBJECTIVE: The patient is seen and examined at bedside today. The patient has no fever, no chills. No nausea or vomiting. No abdominal pain. No chest pain. No palpitation or orthopnea. Shortness of breath is better. Remains on antibiotic. No depression. No suicidal ideation. No heat or cold intolerance. No bleeding tendency. No dysuria or hematuria. PHYSICAL EXAMINATION: VITAL SIGNS: Temperature today 98.1. EYES: No icterus. Pupils equal and reactive. HENT: No oral thrush seen. Moist oral mucosa. NECK: Supple, no JVD or thyromegaly. LUNGS: Good air entry. Few crackles. CARDIOVASCULAR: S1, S2 regular. Systolic murmur heard. ABDOMEN: Obese, soft, nontender. Bowel sounds present. CENTRAL NERVOUS SYSTEM: Awake, alert, oriented x 3. No focal deficits. SKIN: No rashes, no itchiness. LYMPHATIC: No peripheral lymphadenopathy. BACK: No deformity, no pressure ulcer. HEMATOLOGIC: No bleeding or petechial lesions seen. MUSCULOSKELETAL: No joint swelling, erythema or tenderness. ASSESSMENT: A 44-year-old male admitted with shortness of breath. CURRENT PROBLEMS: Include: * Endocarditis. * Gram-positive bacteremia. * Pneumonia. * [id number] diastolic heart failure. * Morbid obesity. * Hypoxic respiratory failure. PLAN: * Continue Zosyn. * Continue linezolid. * Continue nutritional support. * Monitor electrolytes. * The patient will be followed closely. TID: [id number] RECEIPT: [id number]
[2025-02-25 19:03] LABS: POTASSIUM 2.9 mmol/L (3.5-5.1)
--- NOTE | 2025-02-25 20:30 | NUR ---
RENDERED CARE AND REPORT TO NURSE MAURO AT THIS TIME, MADE NURSE AWARE PATIENT TO BE COVERED WITH 40MEQ OF POTASSIUM DUE TO 2.9 LEVEL. PATIENT TRANSFERRED VIA AAOX3, ON 4L NC, PATIENT DENIES PAIN AND SOB, RESPIRATIONS EVEN & UNLABORED. PATIENT COLLECTED HIS PERSONAL EFFECTS AND ALL WERE TRANSPORTED WITH HIM IN PERSONAL BELONGING BAGS INCLUDING A BLACK PHONE. GRACIE ASTORGA Addendum: 02/25/25 at 2123 by STANISLAW GUEVARA RN RN LASIX MEDICATION PENDING FROM 1629 DUE TO PENDING POTASSIUM LEVEL, RESULTED AT 2.9 AFTER 1900, ADVISED NURSE MAURO POTASSIUM TO BE REPLACED WITH 40MEQ PO PER PROTOCOL AND THIS ACTION PENDING. CLARIFIED ORDER FOR CARDIOTHORACIC CONSUL WITH DAY SHIFT AND ORDER FOUND UNDER NURSING COMMUNICATION, WILL PLACE ORDER FOR CT CONSULT.
--- NOTE | 2025-02-25 21:38 | NUR ---
MISSED MEDICATION INFORMED PASTOR BAUER OF MISSED MEDICATION ADMINISTRATION NYSTATIN ORAL [id number] UNITS/ML 5ML AT 1700. PASTOR BAUER SAYS OK TO GIVE NOW FOR 2100 DOSE. OBTAINED ORDER FROM PASTOR BAUER OF POTASSIUM REPLACEMENT, 40MEQ NOW AND RECHECK POTASSIUM 2 HOURS AFTER ADMINISTRATION. ALL ORDERS PLACED, PENDING PHARMACY APPROVAL
--- NOTE | 2025-02-25 21:38 | NUR ---
CLARIFIED CONSULT REQUEST FOR CV SURGEON, ORDER ENTERED CV TEAM MADE AWARE.
[2025-02-25] MEDS: PoTASSium chloRIDE 20MEQ ER 20 MEQ ERTAB PO ONE (21:44)
[2025-02-26] VITALS (13 sets, daily range): BP systolic 106–115; BP diastolic 45–55; PULSE 97–105; RESP 19–39; TEMP 97.6–98.4; O2SAT 96–100
[2025-02-26 05:28] LABS: BASOPHILS # (AUTO) 0.13 K/uL (0.00-0.20); EOSINOPHILS # (AUTO) 0.25 K/uL (0.00-0.70); EOSINOPHILS % (AUTO) 1.9 % (0.0-8.0); HEMATOCRIT 28.8 % (42-54); IMMATURE GRANULOCYTE ABSOLUTE 0.07 K/uL (0-1); LYMPHOCYTES # (AUTO) 1.9 K/uL (1.0-4.8); LYMPHOCYTES % (AUTO) 14.7 % (21.0-51.0); MEAN CORPUSCULAR VOLUME 94.1 fL (79-99); MONOCYTES % (AUTO) 7.2 % (3.0-13.0); NEUTROPHILS # (AUTO) 9.8 K/uL (1.8-7.7); NEUTROPHILS % (AUTO) 74.7 % (40.0-77.0); PLATELET COUNT (AUTO) 359 K/uL (130-400); RED BLOOD CELL COUNT(AUTO) 3.06 MIL/uL (4.50-6.20); RED CELL DISTRIBUTION WIDTH 16.6 % (11.0-15.5); WHITE BLOOD COUNT (AUTO) 13.2 K/uL (4.8-10.8)
[2025-02-26 05:47] LABS: ALBUMIN 2.2 g/dL (3.5-5.0); ASPARTATE AMINOTRANSFERASE 16 U/L (10-37); BILIRUBIN,TOTAL 0.7 mg/dL (0.2-1.0); CARBON DIOXIDE 25 mmol/L (21-32); CHLORIDE 99 mmol/L (101-111); GLOMERULAR FILTR. RATE CALC 41 mL/min (>90); GLUCOSE,RANDOM 117 mg/dL (70-105); POTASSIUM 3.5 mmol/L (3.5-5.1); SODIUM SERUM 137 mmol/L (136-145); TOTAL PROTEIN, SERUM 7.1 g/dL (6.0-8.3); UREA NITROGEN, BLOOD 26 mg/dL (7-18)
[2025-02-26 05:49] LABS: ALANINE AMINOTRANSFERASE < 6 U/L (12-78)
--- NOTE | 2025-02-26 08:17 | NUR ---
MEDICATION HELD MORNING DOSE OF LASIX HELD. PATIENTS POTASSIUM LEVEL 3.5, HELD TO PREVENT HYPOKALEMIA.
--- NOTE | 2025-02-26 09:52 | PN ---
[facility] Progress Note PROBLEM LIST: -severe AI, secondary to endocarditis -2D echo on 02/24, EF 60-65%, demonstrating with severe AI, 1.4 cm aortic leaflet vegetation -Acute on chronic diastolic heart failure -PNA -UTI -Normocytic anemia -Acute on chronic CKD stage IIIb, baseline creatinine of 2 -Fidelina esophagitis identified on EGD done 01/11/2025 -Bacterial endocarditis affecting the aortic valve (1.81x1.17 cm mass attached to the noncoronary cusp leaflet) identified on DRAKE done 01/11/2025 -Lactic acidosis, improving -Left atrial appendage thrombus identified on DRAKE done 01/11/2025, not currently an anticoagulation due to thrombocytopenia -Normal LV systolic function (LVEF: 60-65% by echo done 01/11/2025) -Elevated troponin (type II CO), peaking in the 400s -History of ITP in 12/2024 -Liver cirrhosis -Esophagitis by EGD 01/11/2025 -CAD s/p PCI with IA Integrilin, aspiration thrombectomy, PTCA, and KISHORE placement (Promus 4.0x16 mm) in the proximal LAD done on 12/19/2015 -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 He feels much better today than yesterday. No chest tightness, shortness of breath, palpitations. He still has some leg edema, worse in the left, but this has improved. BP in the low 100s, heart rate in the high 90s. -1 L fluid balance exactly yesterday, about a 2.5 kg weight loss over the past three days No fever, reports of bleeding] PHYSICAL EXAMINATION: Vital Signs (Last 48hrs) Date Time Temp Pulse Resp B/P (MAP) Pulse Ox O2 Delivery O2 Flow Rate FiO2 02/26/25 08:00 97.7 97 20 114/47 100 Nasal Cannula 3.0 02/26/25 06:51 99 20 N/Cannula Low lpm 3.0 32 02/26/25 06:40 97 20 N/Cannula Low lpm 5.0 40 02/26/25 06:36 97 20 02/26/25 04:00 98.4 98 19 110/45 100 Nasal Cannula 5.0 02/26/25 00:00 97.9 100 19 114/52 99 Nasal Cannula 5.0 02/26/25 00:00 99 39 40 02/25/25 20:30 98.2 102 20 114/58 100 Nasal Cannula 5.0 02/25/25 20:00 100 Nasal Cannula* 4 36 02/25/25 19:45 97.5 100 27 114/52 100 Nasal Cannula 4.0 02/25/25 19:21 101 20 N/Cannula Low lpm 5.0 40 02/25/25 19:20 101 20 02/25/25 18:00 97 21 106/55 100 02/25/25 17:45 100 23 116/59 100 Nasal Cannula 5.0 02/25/25 17:30 95 22 106/49 100 02/25/25 17:15 105 22 116/68 100 Nasal Cannula 5.0 02/25/25 17:00 99 27 109/62 100 02/25/25 16:45 98 25 96/31 100 Nasal Cannula 5.0 02/25/25 16:30 101 27 122/52 100 02/25/25 16:15 101 24 123/46 100 Nasal Cannula 5.0 02/25/25 16:00 97.0 102 30 130/59 100 02/25/25 15:00 102 25 129/74 100 Nasal Cannula 5.0 02/25/25 14:45 98 27 103/46 100 02/25/25 14:30 106 37 112/83 100 Nasal Cannula 5.0 02/25/25 14:15 98 28 109/53 100 02/25/25 14:03 100 24 02/25/25 14:00 98 26 119/57 100 Nasal Cannula 5.0 02/25/25 13:45 99 29 109/52 100 02/25/25 13:30 99 28 116/52 100 Nasal Cannula 5.0 02/25/25 13:15 96 22 112/45 99 02/25/25 13:00 94 21 113/46 100 Nasal Cannula 5.0 02/25/25 12:00 97.3 104 22 118/53 100 02/25/25 11:44 92 26 N/Cannula Low lpm 5.0 40 02/25/25 11:00 96 22 96/38 100 Nasal Cannula 5.0 02/25/25 10:00 97 21 116/44 100 02/25/25 09:00 100 25 117/43 98 02/25/25 08:45 89 28 Non Rebreather 15.0 100 02/25/25 08:41 95 Non-Rebreather+ 15 100 02/25/25 08:25 100 25 122/52 100 02/25/25 08:15 97.3 101 30 100 02/25/25 08:00 99 26 100 02/25/25 08:00 99 26 100 02/25/25 07:15 103 22 02/25/25 07:15 99 25 125/51 100 CPAP 02/25/25 07:14 102 22 40 02/25/25 07:00 104 32 123/57 100 CPAP 02/25/25 05:30 104 28 130/74 97 Nonrebreathing Mask 10.0 02/25/25 05:00 101 20 145/71 100 Nonrebreathing Mask 10.0 02/25/25 04:30 100 24 147/85 100 Nonrebreathing Mask 10.0 02/25/25 04:00 98.1 101 27 121/49 100 Nonrebreathing Mask 10.0 02/25/25 04:00 91 Non-Rebreather+ 15 100 02/25/25 03:30 100 24 117/77 100 Nonrebreathing Mask 10.0 02/25/25 03:00 101 27 125/62 99 Nonrebreathing Mask 10.0 02/25/25 02:30 101 19 127/58 96 Nonrebreathing Mask 10.0 02/25/25 02:27 100 22 02/25/25 02:00 97 21 134/53 99 Nonrebreathing Mask 10.0 02/25/25 01:30 99 22 137/64 99 Nonrebreathing Mask 10.0 02/25/25 01:00 103 25 128/68 99 CPAP 40 02/25/25 00:30 97 23 132/53 100 CPAP 40 02/25/25 00:26 98 33 40 02/25/25 00:00 90 Non-Rebreather+ 15 100 02/25/25 00:00 105 33 137/71 100 CPAP 40 02/24/25 23:00 104 26 114/50 91 CPAP 40 02/24/25 22:30 108 38 122/45 89 Nonrebreathing Mask 10.0 02/24/25 22:00 102 24 119/45 100 Nonrebreathing Mask 10.0 02/24/25 21:30 97 29 120/68 100 Nonrebreathing Mask 10.0 02/24/25 21:00 107 29 128/61 100 Nonrebreathing Mask 10.0 02/24/25 20:30 107 43 120/51 100 Nonrebreathing Mask 10.0 02/24/25 20:00 90 Non-Rebreather+ 15 100 02/24/25 20:00 98.1 02/24/25 20:00 112 50 114/57 91 Nonrebreathing Mask 10.0 02/24/25 19:30 103 34 118/45 100 Nonrebreathing Mask 10.0 02/24/25 19:00 105 36 126/55 100 Nonrebreathing Mask 10.0 02/24/25 18:44 104 22 Non Rebreather 12.0 100 02/24/25 16:30 105 28 112/42 98 Nonrebreathing Mask 10.0 02/24/25 16:15 106 26 130/52 100 Nonrebreathing Mask 10.0 02/24/25 16:09 98 CPAP+ 40 02/24/25 16:00 98.8 109 26 140/64 98 Nonrebreathing Mask 10.0 02/24/25 15:45 104 26 123/64 100 Nonrebreathing Mask 10.0 02/24/25 15:30 94 26 131/64 96 Nonrebreathing Mask 10.0 02/24/25 15:15 104 26 118/58 100 02/24/25 14:46 107 26 140/68 100 Nonrebreathing Mask 10.0 02/24/25 14:30 102 29 100 02/24/25 14:29 104 34 02/24/25 14:27 104 34 40 02/24/25 13:45 104 28 119/47 94 Nonrebreathing Mask 10.0 02/24/25 13:30 102 26 123/51 95 02/24/25 13:15 103 27 115/50 95 02/24/25 13:00 113 28 156/63 96 CPAP 40 02/24/25 12:45 106 28 128/50 97 CPAP 40 02/24/25 12:31 97.2 107 27 125/59 99 CPAP 40 02/24/25 12:15 100 27 119/58 100 Nonrebreathing Mask 10.0 02/24/25 12:11 109 26 Non Rebreather 12.0 100 02/24/25 12:00 98 CPAP+ 40 02/24/25 12:00 106 27 157/99 99 Nonrebreathing Mask 10.0 02/24/25 11:45 105 27 143/67 92 CPAP 40 02/24/25 11:30 105 26 136/64 92 CPAP 40 02/24/25 11:15 107 27 137/70 91 CPAP 40 02/24/25 11:00 105 27 142/69 94 CPAP 40 02/24/25 10:45 111 27 118/45 94 CPAP 40 02/24/25 10:30 109 27 136/64 99 02/24/25 10:25 98 CPAP+ 40 02/24/25 10:15 110 27 121/65 97 02/24/25 10:00 110 27 147/70 96 CPAP 40 02/24/25 09:55 111 27 146/67 96 02/24/25 09:55 98.4 111 27 146/67 96 Nonrebreathing Mask 15.0 General: Morbidly obese, chronically ill-appearing but no acute distress. HEENT: Atraumatic. Hearing is intact. No facial asymmetry, nasal discharge, icterus or lid lag. Cardiovascular: Rhythm and rate regular. No murmur. 1+ pitting edema bilaterally, more in the left Respiratory: Lungs clear to the bases. No retractions, wheezes or rhonchi. Gastrointestinal: Benign, soft, nontender, nondistended. Extremities: No amputations. Range of motion is grossly normal. Neurology/Psychiatry: No tremors. Speech is clear. Alert and oriented x 3. Cooperative and pleasant. LABORATORY DATA: [ Laboratory Tests Test 02/25/25 09:52 02/25/25 15:40 02/25/25 18:21 02/25/25 19:56 Lactic Acid Level 2.7 mmol/L (0.8-2.5) H Urine Opiates Screen POSITIVE (NEGATIVE) H Urine Barbiturates Screen NEGATIVE (NEGATIVE) Urine Phencyclidine Screen NEGATIVE (NEGATIVE) Urine Amphetamines Screen NEGATIVE (NEGATIVE) Urine Benzodiazepines Screen NEGATIVE (NEGATIVE) Urine Cocaine Screen NEGATIVE (NEGATIVE) Urine Marijuana (THC) Screen NEGATIVE (NEGATIVE) Potassium Level 2.9 mmol/L (3.5-5.1) *L Magnesium Level 2.00 mg/dL (1.80-2.40) Whole Blood Glucose 170 MG/DL (70-110) H Test 02/26/25 00:50 02/26/25 05:18 Potassium Level 3.2 mmol/L (3.5-5.1) L 3.5 mmol/L (3.5-5.1) White Blood Count 13.2 K/uL (4.8-10.8) H Red Blood Count 3.06 MIL/uL (4.50-6.20) L Hemoglobin 9.5 g/dL (14.0-18.0) L Hematocrit 28.8 % (42-54) L Mean Corpuscular Volume 94.1 fL (79-99) Mean Corpuscular Hemoglobin 31.0 pg (27.0-33.0) Mean Corpuscular Hemoglobin Concent 33.0 g/dL (32.0-36.0) Red Cell Distribution Width 16.6 % (11.0-15.5) H Platelet Count 359 K/uL (130-400) Mean Platelet Volume 9.0 fL (7.5-10.5) Immature Granulocyte % (Auto) 0.5 % (0-1) Neutrophils (%) (Auto) 74.7 % (40.0-77.0) Lymphocytes (%) (Auto) 14.7 % (21.0-51.0) L Monocytes (%) (Auto) 7.2 % (3.0-13.0) Eosinophils (%) (Auto) 1.9 % (0.0-8.0) Basophils (%) (Auto) 1.0 % (0.0-5.0) Neutrophils # (Auto) 9.8 K/uL (1.8-7.7) H Lymphocytes # (Auto) 1.9 K/uL (1.0-4.8) Monocytes # (Auto) 1.0 K/uL (0.1-1.0) Eosinophils # (Auto) 0.25 K/uL (0.00-0.70) Basophils # (Auto) 0.13 K/uL (0.00-0.20) Absolute Immature Granulocyte (auto 0.07 K/uL (0-1) Nucleated Red Blood Cells 0.0 % (0.0-0.19) Sodium Level 137 mmol/L (136-145) Chloride Level 99 mmol/L (101-111) L Carbon Dioxide Level 25 mmol/L (21-32) Blood Urea Nitrogen 26 mg/dL (7-18) H Creatinine 2.0 mg/dL (0.5-1.3) H Glomerular Filtration Rate Calc 41 mL/min (>90) Random Glucose 117 mg/dL (70-105) H Total Calcium 8.5 mg/dL (8.5-10.1) Magnesium Level 1.80 mg/dL (1.80-2.40) Total Bilirubin 0.7 mg/dL (0.2-1.0) Aspartate Amino Transf (AST/SGOT) 16 U/L (10-37) Alanine Aminotransferase (ALT/SGPT) < 6 U/L (12-78) L Alkaline Phosphatase 87 U/L (50-136) Total Protein 7.1 g/dL (6.0-8.3) Albumin 2.2 g/dL (3.5-5.0) L ] RADIOLOGY: [] PLAN: [CT surgery consult will be requested, due this severe AI, which seems to have worsened from mid December. Echo from 01/11 does not appear to have been done at this facility, but there is no documentation of severe AI at that time. Patient on metolazone 5 mg daily, Lasix 40 IV Q eight. He is on Zosyn, doxycycline, Zyvox. Does have underlying heart disease and elevated heart rates in the 90s, but blood pressure is in the low 100s and beta blockade could worsen volume overload. We would benefit from afterload reduction with an Yobany or ARB but his renal function may preclude this. Troponins have been elevated in the 200-400 range. May need angiography with a small dose of contrast prior to valve surgery, and at the risk of septic embolization.] SENDY MORENO PAC Feb 26, 2025 09:52
--- NOTE | 2025-02-26 10:14 | HMCIMG ---
FRONTAL CHEST RADIOGRAPH INDICATION: Evaluate for pneumonia progress COMPARISON: 02/25/2025 FINDINGS/IMPRESSION: monitor tech leads overlie the field of view. Shallow inspiration. Stable heart size without pulmonary vascular enlargement. Unchanged extensive bilateral lung pneumonia, without pneumothorax.
--- NOTE | 2025-02-26 10:27 | PN ---
[facility] PROGRESS NOTE Date of Service: Feb 26, 2025 Time of Service: 10:20 SUBJECTIVE: [ HPI : 54-year-old male with a complex medical history including recent hospitalization with a Gram-positive bacteremia secondary to Staph aureus, severe sepsis and endocarditis with echogenic vegetations on noncoronary cusps and right coronary cusp as well as left atrial appendage clot on January 11, 2025 presented to the ED days history of worsening shortness of breath. He was discharged on January 31, 2025 with long-term IV linezolid via PICC line for infective endocarditis. Since 3 days he reports progressive dyspnea, worsened acutely today. He denies chest pain but notes fatigue and exertional intolerance. There is no reported fever or chills. He was in mild respiratory distress on arrival. Notably has a past medical history of Fidelina esophagitis, uncontrolled diabetes mellitus type 2 BRENDAN, immune thrombocytopenic purpura, UTI Klebsiella and substance abuse with cocaine alcohol and tobacco. So on physical examination he is positive for shortness of breaths and cough no hemoptysis. His lungs have expiratory wheezes and diffuse crackling bilaterally. He is tachycardic with regular rhythm. His WBC count is at 18, hemoglobin at 10.5 and platelet count at 470 K with leukocytosis chronic anemia and thrombocytosis, chemistry is with creatinine showing 2.2, BUN at and CO2 at 18.2 magnesium low consistent with BRENDAN, electrolyte derangements. His arterial blood gas analysis reveals a pH of 7.469, PaCO2 of 26, PO2 of 54.6, HC03 of 18.2 and saturation of 90.2 Representing acute hypoxic respiratory failure with respiratory alkalosis. Serum lactate is elevated at 3.6 persistent lactic acidosis. BNP is at 2410 suggesting cardiac strain or volume overload. And troponin is elevated at [address] segment elevated NE. and urine analysis positive concerning for UTI and nephropathy due to positive hyaline casts. Chest x-ray reveals diffuse bilateral opacities consistent with pneumonia and chest CT scan reveals bilateral pleural effusion bilateral ground-glass pulmonary infiltrates are seen renal ultrasound reveals no hydronephrosis. And a CT scan also revealed gallstone. Echo is ordered to assess vegetations, LA clot and EF. Lower extremity Doppler revealed no DVT, Matthews's cyst versus hematoma in the left knee. EGD from prior history Fidelina esophagitis. The patient is admitted to ICU with the critical Care and Cardiology and Infectious Disease consult has been placed for further management currently on Precedex drip and CPAP setting with tidal volume of 657 and a rate of 36 and PIP of15 and ve of 23.2. Furosemide 40 q.12h is added in addition to his antibiotics monitoring the patient closely and discuss the goal of care with the patient and he agreed upon with it. 02/25/2025. Patient seen and examined along with RN. Feels better , breathing has improved. Continues to be on IV Lasix and metolazone was added. Cardiology and critical Care on board CT surgery was consulted for severe aortic regurgitation.] 02/26/25 review inspector elevators's note in detail. CT surgery was consulted regarding to his severe AI. Patient continues with diuretics in IV antibiotics. No fevers denies chest pain. REVIEW OF SYSTEMS CONSTITUTIONAL: Positive for fatigue, mild subjective fever. NEUROLOGICAL: Denies headache, amaurosis fugax, motor weakness, sensory deficit, vertigo/spinning sensation, gait abnormalities, or tremors. ENT: No hearing loss, otalgia, otorrhea, rhinitis, rhinorrhea, hoarseness, or sore throat. CARDIOVASCULAR: Palpitations, no angina. PULMONARY: Shortness of breath, cough, no hemoptysis. SLEEP: Denies morning headaches, daytime somnolence or napping. Denies difficulty falling asleep, staying asleep, waking from sleep. Denies knowledge of snoring. GASTROINTESTINAL: Denies any type of dysphagia to either liquids or solids. Denies nausea, vomiting, pyrosis, early satiety, abdominal pain, diarrhea, constipation, or changes in stool consistency or caliber. Denies coffee-ground emesis, hematemesis, hematochezia, or melanotic stools. GENITOURINARY: Denies frequency, urgency, nocturia, hematuria or incontinence (Storage/Irritative symptoms.) Low urinary stream, straining to void, urinary intermittency or hesitancy, splitting of the voiding stream, terminal dribbling. ENDOCRINOLOGIC: Denies polyuria, polydipsia, polyphagia or heat/cold intolerances. HEMATOLOGIC: Denies thrombophilia/previous clots, or coagulopathy/bleeding disorders. ONCOLOGIC: Denies personal history of malignancy. DERMATOLOGIC: Denies rashes or pruritus. PSYCHIATRIC: Denies any suicidal or homicidal ideation. Denies hallucinations. PHYSICAL EXAM GENERAL APPEARANCE ill appearing, alert, mildly agitated, in moderate respiratory distress. NEUROLOGICAL: Cranial nerves II-XII grossly intact. Motor is 5/5 in bilateral upper and lower extremities proximal to distal. No sensory deficits. HEENT: Face is symmetric. Pupils are equal and reactive. Extraocular movements are intact. NECK: Supple. No JVD. No thyromegaly. No submental, submandibular, pre- /postauricular, occipital or supraclavicular lymphadenopathy. CHEST: Normal chest expansion. No Telemetry. LUNGS: Expiratory wheeze and diffuse crackles bilaterally CARDIOVASCULAR: Regular. S1 and S2 normal. No appreciable rubs, murmurs or gallops. Tachycardia present ABDOMEN: Soft, nontender, and nondistended. There is no rebound, voluntary guarding, or rigidity. : Deferred. No Ortega. EXTREMITIES: Bilateral 2+ pitting edema, left knee warm swollen, limited ROM and pitting edema more on the left compared to right. SKIN: No skin breakdown. Vital Signs (last 8hr) Date Time Temp Pulse Resp B/P (MAP) Pulse Ox O2 Delivery O2 Flow Rate FiO2 02/26/25 08:00 97.7 97 20 114/47 100 Nasal Cannula 3.0 02/26/25 06:51 99 20 N/Cannula Low lpm 3.0 32 02/26/25 06:40 97 20 N/Cannula Low lpm 5.0 40 02/26/25 06:36 97 20 02/26/25 04:00 98.4 98 19 110/45 100 Nasal Cannula 5.0 LABS: Laboratory: Test 02/26/25 05:18 02/25/25 19:56 02/25/25 15:40 02/25/25 09:52 Range/Units White Blood Count 13.2 H 4.8-10.8 K/uL Red Blood Count 3.06 L 4.50-6.20 MIL/uL Hemoglobin 9.5 L 14.0-18.0 g/dL Hematocrit 28.8 L 42-54 % Mean Corpuscular Volume 94.1 79-99 fL Mean Corpuscular Hemoglobin 31.0 27.0-33.0 pg Mean Corpuscular Hemoglobin Concent 33.0 32.0-36.0 g/dL Red Cell Distribution Width 16.6 H 11.0-15.5 % Platelet Count 359 130-400 K/uL Mean Platelet Volume 9.0 7.5-10.5 fL Immature Granulocyte % (Auto) 0.5 0-1 % Neutrophils (%) (Auto) 74.7 40.0-77.0 % Lymphocytes (%) (Auto) 14.7 L 21.0-51.0 % Monocytes (%) (Auto) 7.2 3.0-13.0 % Eosinophils (%) (Auto) 1.9 0.0-8.0 % Basophils (%) (Auto) 1.0 0.0-5.0 % Neutrophils # (Auto) 9.8 H 1.8-7.7 K/uL Lymphocytes # (Auto) 1.9 1.0-4.8 K/uL Monocytes # (Auto) 1.0 0.1-1.0 K/uL Eosinophils # (Auto) 0.25 0.00-0.70 K/uL Basophils # (Auto) 0.13 0.00-0.20 K/uL Absolute Immature Granulocyte (auto 0.07 0-1 K/uL Nucleated Red Blood Cells 0.0 0.0-0.19 % Sodium Level 137 136-145 mmol/L Potassium Level 3.5 3.5-5.1 mmol/L Chloride Level 99 L 101-111 mmol/L Carbon Dioxide Level 25 21-32 mmol/L Blood Urea Nitrogen 26 H 7-18 mg/dL Creatinine 2.0 H 0.5-1.3 mg/dL Glomerular Filtration Rate Calc 41 >90 mL/min Random Glucose 117 H 70-105 mg/dL Total Calcium 8.5 8.5-10.1 mg/dL Magnesium Level 1.80 1.80-2.40 mg/dL Total Bilirubin 0.7 0.2-1.0 mg/dL Aspartate Amino Transf (AST/SGOT) 16 10-37 U/L Alanine Aminotransferase (ALT/SGPT) < 6 L 12-78 U/L Alkaline Phosphatase 87 50-136 U/L Total Protein 7.1 6.0-8.3 g/dL Albumin 2.2 L 3.5-5.0 g/dL Whole Blood Glucose 170 H 70-110 MG/DL Urine Opiates Screen POSITIVE H NEGATIVE Urine Barbiturates Screen NEGATIVE NEGATIVE Urine Phencyclidine Screen NEGATIVE NEGATIVE Urine Amphetamines Screen NEGATIVE NEGATIVE Urine Benzodiazepines Screen NEGATIVE NEGATIVE Urine Cocaine Screen NEGATIVE NEGATIVE Urine Marijuana (THC) Screen NEGATIVE NEGATIVE Lactic Acid Level 2.7 H 0.8-2.5 mmol/L Test 02/25/25 04:07 02/25/25 04:05 02/24/25 13:13 02/24/25 12:15 Range/Units Troponin I High Sensitivity 404 *H 4-75 ng/L Blood Gas Specimen Type Arterial Arterial Blood pH 7.509 H 7.350-7.450 Arterial Blood Partial Pressure CO2 26 L 35-48 mmHg Arterial Blood Partial Pressure O2 112.3 H 83.0-108.0 mmHg Arterial Blood HCO3 20.4 L 21.0-28.0 mmol/L Arterial Blood Oxygen Saturation 98.5 H 94.0-98.0 % Arterial Blood Base Excess -1.0 -2.0-3.0 mmol/L Blood Gas Temperature 37.0 35.5-37.0 CELSIUS Blood Gas Flow-by 15.00 0.00-15.00 L/min Blood Gas Vent Mode NRBM ROOM AIR FiO2 100.0 % Blood Gas Specimen Comment RB RN CATHERINE Total Creatine Kinase 23 # 21-232 U/L Urine Random Creatinine 35.00 30-135 mg/dL Urine Random Sodium 99 40-220 mmol/l Current Medications Medications (Trade) Dose Ordered Sig/Asya Route PRN Reason Start Time Stop Time Status Last Admin Dose Admin Acetaminophen/ Codeine Phosphate (TYLenol-coDEINE (120/12MG 5ML) ELIXIR) 10 ml Q4H PRN PO MODERATE PAIN (4-6) 02/25/25 15:30 02/25/25 15:16 DC Acetaminophen/ Hydrocodone Bitart (NORco 5/325MG) 1 tab Q6H PRN PO MODERATE PAIN (4-6) 02/23/25 23:00 02/28/25 22:59 02/26/25 08:54 1 TAB Albuterol (DUOneb) 1 UDVIAL [id number] IH 02/24/25 00:00 02/24/25 14:15 DC 02/24/25 07:08 1 UDVIAL Alteplase, Recombinant (CathFLO 2MG VIAL) 4 mg ONCE IVCATH 02/25/25 09:30 02/25/25 11:00 DC 02/25/25 10:44 4 MG Aspirin (Aspirin 81mg Ec Tab) 81 mg DAILY PO 02/25/25 09:00 03/27/25 08:59 02/26/25 08:34 81 MG Budesonide (Pulmicort 0.5 Mg/2ml) 0.5 mg BIDRESP IH 02/24/25 18:00 03/26/25 17:59 02/26/25 06:36 0.5 MG Dexmedetomidine/ Sodium Chloride (PRECEdex 400MCG/ 100ML-NS) 400 mcg PROTOCOL IV 02/24/25 10:30 03/26/25 10:29 Doxycycline Hyclate (Doxycycline Hyclate) 100 mg BID PO 02/24/25 21:00 03/06/25 20:59 02/26/25 08:34 100 MG Folic Acid (FOLic ACID 1 MG TABLET) 1 mg DAILY PO 02/25/25 09:00 02/26/25 07:40 DC 02/25/25 09:07 1 MG Folic Acid (FOLic ACID 1 MG TABLET) 1 mg DAILY PO 02/25/25 09:00 03/27/25 08:59 02/26/25 08:36 1 MG Furosemide (LASix 40MG VIAL) 40 mg Q12H IV 02/24/25 08:30 02/24/25 10:20 DC 02/24/25 09:34 40 MG Furosemide (LASix 40MG VIAL) 40 mg Q8H IV 02/24/25 16:30 03/26/25 08:29 02/25/25 09:07 40 MG Heparin Sodium (Porcine) (HEParin 5,000 UNIT VIAL) 5,000 unit BID SQ 02/24/25 09:00 03/26/25 08:59 02/26/25 08:44 5,000 UNIT Ipratropium [place] (AtrovENT UD) 0.5 MG [id number] 02/24/25 14:00 03/26/25 13:59 02/26/25 06:36 0.5 MG Linezolid 300 ml @ 150 mls/hr Q12H IV 02/24/25 11:00 03/06/25 10:59 02/25/25 22:43 150 MLS/HR Magnesium Sulfate 50 ml @ 0 mls/hr PROTOCOL PRN IV low magnesium 02/25/25 11:00 03/27/25 10:59 02/25/25 11:27 25 MLS/HR Melatonin (Melatonin) 10 mg HS PRN PO INSOMNIA 02/24/25 11:00 03/26/25 10:59 02/25/25 23:39 10 MG Metolazone (zarOXOlyn) 5 mg DAILY PO 02/25/25 09:00 03/27/25 08:59 02/26/25 08:36 5 MG Montelukast Sodium (SinguLAIR) 10 mg DAILY PO 02/25/25 09:00 03/27/25 08:59 02/26/25 08:36 10 MG Nystatin (NYSTatin 144158 UNIT/ML 5ML UDCUP) 5 ml QID PO 02/24/25 17:00 03/26/25 16:59 02/26/25 08:36 5 ML Ondansetron HCl (zoFRAN 4MG INJ) 4 mg Q6H PRN IVP NAUSEA/VOMITING 02/24/25 21:00 03/26/25 20:59 Pantoprazole Sodium (PROTonix 40MG INJ) 40 mg DAILY IVP 02/24/25 11:00 03/26/25 10:59 02/26/25 08:36 40 MG Pharmacy Profile Note (Lace Assessment) 1 each AD MISC 02/24/25 10:30 02/24/25 10:32 DC Pharmacy Profile Note (Lace Assessment) 1 each AD MISC 02/25/25 15:30 02/25/25 15:17 DC Pharmacy Profile Note (Pharmacy Communication) 1 each ONCE MISC 02/23/25 23:00 02/23/25 23:48 DC Pharmacy Profile Note (Pharmacy Communication) 1 each ONCE MISC 02/25/25 15:30 02/25/25 15:17 DC Piperacillin Sod/ Tazobactam Sod (Zosyn 3.375gm+NS 50ml) 3.375 gm Q8H IV 02/24/25 05:00 03/06/25 04:59 02/26/25 04:52 3.375 GM Potassium Chloride 100 ml @ 100 mls/hr AD PRN IV POTASSIUM PROTOCOL 02/25/25 11:00 03/27/25 10:59 02/26/25 03:06 100 MLS/HR Potassium Chloride 100 ml @ 100 mls/hr AD PRN IV POTASSIUM PROTOCOL 02/25/25 11:00 03/27/25 10:59 Potassium Chloride (K-Dur/Klor-Con 20meq) 10 meq AD PRN PO POTASSIUM PROTOCOL 02/25/25 11:00 03/27/25 10:59 Potassium Chloride (KCl 10% Elixir 20meq/15ml) 10 meq AD PRN PO POTASSIUM PROTOCOL 02/25/25 11:00 03/27/25 10:59 Sodium Chloride 1,000 ml @ 75 mls/hr [id number] IV 02/23/25 20:00 02/23/25 23:03 DC 02/23/25 20:08 75 MLS/HR Thiamine HCl (Vitamin B-1) 100 mg DAILY PO 02/25/25 09:00 03/27/25 08:59 02/26/25 08:35 100 MG Vancomycin HCl (Vancomycin Protocol) 1 each AD IV 02/23/25 19:00 02/23/25 19:33 DC DIAGNOSTICS / RADIOLOGY: [ ] ASSESSMENT: gram positive bacteremia POA Sepsis, POA Pneumonia, POA Acute hypoxic respiratory failure on CPAP, ABG confirms PO2 less than 60 mmHg, POA Sputum cultures E coli and Klebsiella Aerogenes POA Endocarditis with vegetations, POA Acute on chronic diastolic heart failure with exacerbation POA Acute kidney injury stage II, POA Non ST segment elevated NE, most likely type 2 NE secondary to oxygen ischemic POA ITP, POA Uncontrolled diabetes mellitus type 2, POA Diabetic nephropathy, POA Cocaine, alcohol and tobacco use disorder, POA Fidelina esophagitis, POA Matthews's cyst, hematoma, left knee, POA Electrolyte abnormalities, POA Chronic anemia, POA PLAN: Infectious disease: ID on board Continue IV linezolid q.12h. Continue Zosyn 3.375 g IV q.8h. Continue IV doxycycline 100 mg b.i.d.. Noted blood cultures and sputum cultures. Pulmonary: Critical Care consult has been placed. Supplemental oxygen support, CPAP support and BiPAP setting as necessary to maintain SpO2 levels greater than 92 Budesonide, albuterol ipratropium nebulizations. Monitor ABGs, O2 sats, chest x-ray. Appreciate Pulmonary and critical Care consult suggestions. Cardiovascular: Telemetry Repeat echocardiogram reviewed patient with severe aortic regurgitation. We mason l need CT surgery consult Cardiology consult appreciated we will need pola next week Consider anticoagulation once bleeding risk reassessed. Monitor troponin, BNP. Furosemide q.8h IV for diuresis. Added on metolazone Renal/metabolic Monitor CR, BUN, GFR. Avoid nephrotoxins. Monitor glucose, proteinuria. Replete potassium, magnesium, phosphorus. for per facility protocol. GI/nutrition Pantoprazole IV daily. Monitor for GI bleeding. Add thiamine, folate multivitamins if chronic alcohol use. Hematology Monitor platelets for ITP versus reactive thrombocytosis. Consider iron studies, B12, reticulocyte count for anemia. Musculoskeletal: Monitor left knee swelling Avoid NSAIDs due to BRENDAN. Ortho referral if worsening. Sedation/neuro: Precedex for sedation, taper as tolerated. Determine at bedtime for sleep hygiene. ICU delirium prevention with 3 orientation, mobility and lytes during the day. Endocrine: Glucose control with insulin. Monitor for ketones and TKA signs. Consider A1c when stable. Substance use: Assess for withdrawal. CIWA protocol p.r.n. if needed. Offered smoking cessation and substance abuse counseling. Case management consult has been placed for further discharge planning. ATTESTATION BY PHYSICIAN I have seen and examined the patient. I reviewed the documentation, medical decision making, and treatment plan as noted by the mid-level provider above. I agree with the findings and plan of care. Yuki Martinez MD, ELIZABETH NP Feb 26, 2025 10:27
--- NOTE | 2025-02-26 16:00 | PN ---
[facility] PROGRESS NOTE Date Patient Seen: Feb 26, 2025 Time of Visit: 1212 Supervising Physician: Dr. Zamarripa Primary Care Physician: Self Referral MD Outpatient Specialists: Inpatient Consults: Dr Dumont PROBLEM LIST: - Acute Hypoxic respiratory failure POA requiring NIV -Acute on chronic diastolic heart failure w/ EF 50-55% on 2 D echo POA - Aortica Valvular vegetation present 1.4cm -Severe Aortic regurgitation Severe multifocal bilateral Bacterial Pneumonia SCAP score 20 Points ( Recommend ICU monitoring) sputum culture positive for E coli and Klebsiella -Bilateral Pleural Effusions POA -Acute Cystitis POA -Normocytic anemia -Acute on chronic CKD stage IIIb -Fidelina esophagitis identified on EGD done 01/11/2025 -Bacterial endocarditis affecting the aortic valve (1.81x1.17 cm mass attached to the noncoronary cusp leaflet) identified on DRAKE done 01/11/2025 -Left atrial appendage thrombus identified on DRAKE done 01/11/2025 -Elevated troponin (type II TX) -thrombocytosis -Liver cirrhosis MELD Score 22 Points ( 19.6 % Estimated 3 month Mortality) -cholelithiasis -Esophagitis by EGD 01/11/2025 -CAD s/p PCI with IA Integrilin, aspiration thrombectomy, PTCA, and KISHORE plac ement (Promus 4.0x16 mm) in the proximal LAD done on 12/19/2015 -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 he is hemodynamically stable with a blood pressure of 125/51, heart rate in the 80s respiratory rate of 24 unlabored saturating 95% on5 L via nasal cannula. Urine output 1.7 L in the last 24 hours. WBCs 16.3 H&H 7.2/31.7 Platelet count of 443 K. chemistry potassium 3.4 chloride of 99 carbon [id number] BUN creatinine 2.1 GFR of 39 glucose 106 lactic acid of 2.8 trending down total calcium 8.4 and albumin of 1.60. Sensitive troponin of 404 with previously be in 258. Respiratory culture growing Gram-negative rods and Gram-positive rods. CV surgeon has been consulted per Cardiology for aortic endocarditis severe aortic regurgitation. We will continue to follow cardiology recommendations and for now patient may downgrade from ICU. 02/26 patient was seen and examined at bedside with no family present. Patient is currently on 3 L nasal cannula is tolerating well. Patient does not use home oxygen. Patient denies any chest pain or shortness for breath. Denies any nausea vomiting or abdominal pain. Patient is sputum culture positive for E co li and Klebsiella. Patient to continue on IV antibiotics per ID recommendations. Has remained hemodynamically stable. We will continue to monitor closely. Patient will require 6 minute one partner discharge REVIEW OF SYSTEMS: 12 point ROS reviewed with patient. Pertinent positives mentioned above. Otherwise negative. PHYSICAL EXAM: GENERAL: alert, weak, awake oriented x 3 HEENT: EOMI, Sclera non icteric, moist mucosa NECK: Supple, no JVD, trachea midline LUNGS: Crackles breath sounds bilaterally. No wheezes HEART: Regular rate and rhythm. Normal S1 and S2, without murmurs ABD: Obese Abdomen soft, nontender. Bowel sounds present EXT: No clubbing cyanosis or edema NEURO: Alert and oriented to person, follows commands Vital Signs (last 8hr) Date Time Temp Pulse Resp B/P (MAP) Pulse Ox O2 Delivery O2 Flow Rate FiO2 02/26/25 13:38 100 20 N/Cannula Low lpm 3.0 32 02/26/25 13:37 100 20 02/26/25 12:00 98.4 105 19 115/46 131 Nasal Cannula 5.0 02/26/25 08:54 100 Nasal Cannula* 3 32 02/26/25 08:00 97.7 97 20 114/47 100 Nasal Cannula 3.0 LABS: Hematology Labs: Test 02/26/25 05:18 Range/Units White Blood Count 13.2 H 4.8-10.8 K/uL Red Blood Count 3.06 L 4.50-6.20 MIL/uL Hemoglobin 9.5 L 14.0-18.0 g/dL Hematocrit 28.8 L 42-54 % Mean Corpuscular Volume 94.1 79-99 fL Mean Corpuscular Hemoglobin 31.0 27.0-33.0 pg Mean Corpuscular Hemoglobin Concent 33.0 32.0-36.0 g/dL Red Cell Distribution Width 16.6 H 11.0-15.5 % Platelet Count 359 130-400 K/uL Mean Platelet Volume 9.0 7.5-10.5 fL Immature Granulocyte % (Auto) 0.5 0-1 % Neutrophils (%) (Auto) 74.7 40.0-77.0 % Lymphocytes (%) (Auto) 14.7 L 21.0-51.0 % Monocytes (%) (Auto) 7.2 3.0-13.0 % Eosinophils (%) (Auto) 1.9 0.0-8.0 % Basophils (%) (Auto) 1.0 0.0-5.0 % Neutrophils # (Auto) 9.8 H 1.8-7.7 K/uL Lymphocytes # (Auto) 1.9 1.0-4.8 K/uL Monocytes # (Auto) 1.0 0.1-1.0 K/uL Eosinophils # (Auto) 0.25 0.00-0.70 K/uL Basophils # (Auto) 0.13 0.00-0.20 K/uL Absolute Immature Granulocyte (auto 0.07 0-1 K/uL Nucleated Red Blood Cells 0.0 0.0-0.19 % Chemistry Labs: Test 02/26/25 15:03 02/26/25 05:18 02/25/25 09:52 02/25/25 04:07 Range/Units Whole Blood Glucose 159 H 70-110 MG/DL Sodium Level 137 136-145 mmol/L Potassium Level 3.5 3.5-5.1 mmol/L Chloride Level 99 L 101-111 mmol/L Carbon Dioxide Level 25 21-32 mmol/L Blood Urea Nitrogen 26 H 7-18 mg/dL Creatinine 2.0 H 0.5-1.3 mg/dL Glomerular Filtration Rate Calc 41 >90 mL/min Random Glucose 117 H 70-105 mg/dL Total Calcium 8.5 8.5-10.1 mg/dL Magnesium Level 1.80 1.80-2.40 mg/dL Total Bilirubin 0.7 0.2-1.0 mg/dL Aspartate Amino Transf (AST/SGOT) 16 10-37 U/L Alanine Aminotransferase (ALT/SGPT) < 6 L 12-78 U/L Alkaline Phosphatase 87 50-136 U/L Total Protein 7.1 6.0-8.3 g/dL Albumin 2.2 L 3.5-5.0 g/dL Lactic Acid Level 2.7 H 0.8-2.5 mmol/L Troponin I High Sensitivity 404 *H 4-75 ng/L DIAGNOSTICS / RADIOLOGY RESULTS: na PLAN Continue IV antibiotics per ID recommendations Continue activity titrate FiO2 as tolerated Maintain adequate oxygenation Keep O2 sats greater equal to 90% Patient required 601 prior to discharge for home oxygen evaluation Aspiration precaution Rest of the care per primary team NEURO: Minimize central acting medications as possible. Maintain fall precautions, adequate lighting during the day PULMONARY: Supplemental 02 as needed. Maintain aspiration precautions at all times CARDIOVASCULAR: Follow hemodynamics. Vital signs per facility protocol GI & NUTRITION: Continue with nutritional support. Continue stool softeners and laxatives as needed. KIDNEYS & ELECTROLYTES: Strict monitoring of intake, output and overall fluid balance. Avoid nephrotoxic medications to the extent possible. Medications to be dosed according to renal function. Monitor electrolytes and replace as needed ENDOCRINE: Maintain blood glucose between 100-180 at all times. Hypoglycemia protocol in place INFECTIOUS DISEASE: Trend temperature, WBC and procalcitonin level Follow cultures, deescalate antibiotics as soon as possible. Panculture if new onset fever ONCOLOGY/HEMATOLOGY/COAGULATION: Monitor for s/s of bleeding Monitor hemoglobin, coagulation studies as needed SKIN: Pressure ulcer prevention per facility protocol Specialty mattress ORTHO/REHAB: Continue PT/OT Prophylaxis: Continue GI and DVT prophylaxis Code Status: Full Resuscitation Disposition: Per primary team Other: Case discussed with supervising physician plan of care agreed upon ZI BOB Feb 26, 2025 16:00
[2025-02-27] VITALS (13 sets, daily range): BP systolic 95–125; BP diastolic 32–54; PULSE 97–104; RESP 18–20; TEMP 96.8–97.7; O2SAT 93–100
[2025-02-27 04:57] LABS: BASOPHILS # (AUTO) 0.14 K/uL (0.00-0.20); BASOPHILS % (AUTO) 1.2 % (0.0-5.0); EOSINOPHILS # (AUTO) 0.19 K/uL (0.00-0.70); EOSINOPHILS % (AUTO) 1.6 % (0.0-8.0); HEMATOCRIT 28.6 % (42-54); IMMATURE GRANULOCYTE ABSOLUTE 0.08 K/uL (0-1); LYMPHOCYTES # (AUTO) 1.9 K/uL (1.0-4.8); LYMPHOCYTES % (AUTO) 16.6 % (21.0-51.0); MEAN CORPUSCULAR HEMOGLOBIN 30.8 pg (27.0-33.0); MEAN CORPUSCULAR HGB CONC 32.5 g/dL (32.0-36.0); MEAN CORPUSCULAR VOLUME 94.7 fL (79-99); MONOCYTES # (AUTO) 0.9 K/uL (0.1-1.0); MONOCYTES % (AUTO) 7.4 % (3.0-13.0); NEUTROPHILS # (AUTO) 8.5 K/uL (1.8-7.7); NEUTROPHILS % (AUTO) 72.5 % (40.0-77.0); PLATELET COUNT (AUTO) 325 K/uL (130-400); RED BLOOD CELL COUNT(AUTO) 3.02 MIL/uL (4.50-6.20); RED CELL DISTRIBUTION WIDTH 16.9 % (11.0-15.5); WHITE BLOOD COUNT (AUTO) 11.7 K/uL (4.8-10.8)
[2025-02-27 05:09] LABS: ALBUMIN 2.2 g/dL (3.5-5.0); BILIRUBIN,TOTAL 0.7 mg/dL (0.2-1.0); CREATININE 1.8 mg/dL (0.5-1.3); MAGNESIUM 1.8 mg/dL (1.80-2.40); TOTAL PROTEIN, SERUM 6.9 g/dL (6.0-8.3)
[2025-02-27 05:15] LABS: POTASSIUM 2.9 mmol/L (3.5-5.1)
[2025-02-27] MEDS: PoTASSium chloRIDE 20MEQ ER 20 MEQ ERTAB PO ONE (05:53)
[2025-02-27 06:00] LABS: B-TYPE NATRIURETIC PEPTIDE 733 pg/mL (0-100)
--- NOTE | 2025-02-27 07:12 | PN ---
[facility] CARDIOLOGY PROGRESS NOTE Date Patient Seen: Feb 27, 2025 Time of Visit: 07:03 Interval History: [WBC improving ] Physical Examination: GENERAL: [No acute distress.] HEAD: [Normal with no signs of head trauma.] EYES: [PERRLA, EOMI, conjunctiva and sclera normal.] ENT: [Hearing grossly intact, normal oropharynx.] NECK: [Supple without JVD. There is no tenderness, lymphadenopathy, or masses. No thyromegaly. Normal carotid upstrokes without bruits.] LUNGS: [Clear breath sounds bilaterally. There are right basilar rales one third of the way up the chest. No wheezes, or rhonchi.] HEART: [Normal rate and rhythm. diastolic murmur.] VASC: [Peripheral pulses +2 bilaterally.] ABD: [Bowel sounds normal, soft, nontender, no masses, no organomegaly. No audible bruits.] NEURO: [Awake, alert, and oriented x3. No focal sensory or strength deficits noted.] Laboratory: [ ] Hematology Labs: Test 02/27/25 04:47 Range/Units White Blood Count 11.7 H 4.8-10.8 K/uL Red Blood Count 3.02 L 4.50-6.20 MIL/uL Hemoglobin 9.3 L 14.0-18.0 g/dL Hematocrit 28.6 L 42-54 % Mean Corpuscular Volume 94.7 79-99 fL Mean Corpuscular Hemoglobin 30.8 27.0-33.0 pg Mean Corpuscular Hemoglobin Concent 32.5 32.0-36.0 g/dL Red Cell Distribution Width 16.9 H 11.0-15.5 % Platelet Count 325 130-400 K/uL Mean Platelet Volume 9.1 7.5-10.5 fL Immature Granulocyte % (Auto) 0.7 0-1 % Neutrophils (%) (Auto) 72.5 40.0-77.0 % Lymphocytes (%) (Auto) 16.6 L 21.0-51.0 % Monocytes (%) (Auto) 7.4 3.0-13.0 % Eosinophils (%) (Auto) 1.6 0.0-8.0 % Basophils (%) (Auto) 1.2 0.0-5.0 % Neutrophils # (Auto) 8.5 H 1.8-7.7 K/uL Lymphocytes # (Auto) 1.9 1.0-4.8 K/uL Monocytes # (Auto) 0.9 0.1-1.0 K/uL Eosinophils # (Auto) 0.19 0.00-0.70 K/uL Basophils # (Auto) 0.14 0.00-0.20 K/uL Absolute Immature Granulocyte (auto 0.08 0-1 K/uL Nucleated Red Blood Cells 0.0 0.0-0.19 % Chemistry Labs: Test 02/27/25 05:35 02/27/25 04:47 02/25/25 09:52 Range/Units Whole Blood Glucose 124 H 70-110 MG/DL Sodium Level 134 L 136-145 mmol/L Potassium Level 2.9 *L 3.5-5.1 mmol/L Chloride Level 99 L 101-111 mmol/L Carbon Dioxide Level 24 21-32 mmol/L Blood Urea Nitrogen 24 H 7-18 mg/dL Creatinine 1.8 H 0.5-1.3 mg/dL Glomerular Filtration Rate Calc 47 >90 mL/min Random Glucose 123 H 70-105 mg/dL Total Calcium 8.6 8.5-10.1 mg/dL Magnesium Level 1.80 1.80-2.40 mg/dL Total Bilirubin 0.7 0.2-1.0 mg/dL Aspartate Amino Transf (AST/SGOT) 16 10-37 U/L Alanine Aminotransferase (ALT/SGPT) 3 L 12-78 U/L Alkaline Phosphatase 84 50-136 U/L B-Type Natriuretic Peptide 733 H 0-100 pg/mL Total Protein 6.9 6.0-8.3 g/dL Albumin 2.2 L 3.5-5.0 g/dL Lactic Acid Level 2.7 H 0.8-2.5 mmol/L Diagnostics / Radiology: [Copy/Paste Echos/Imaging Report here] Impression and Plan: [-severe AI, secondary to endocarditis -2D echo on 02/24, EF 60-65%, demonstrating with severe AI, 1.4 cm aortic leaflet vegetation -Acute on chronic diastolic heart failure -PNA -UTI -Normocytic anemia -Acute on chronic CKD stage IIIb, baseline creatinine of 2 -Fidelina esophagitis identified on EGD done 01/11/2025 -Bacterial endocarditis affecting the aortic valve (1.81x1.17 cm mass attached to the noncoronary cusp leaflet) identified on [facility]KE done 01/11/2025 -Lactic acidosis, improving -Left atrial appendage thrombus identified on DRAKE done 01/11/2025, not currently an anticoagulation due to thrombocytopenia -Normal LV systolic function (LVEF: 60-65% by echo done 01/11/2025) -Elevated troponin (type II CA), peaking in the 400s -History of ITP in 12/2024 -Liver cirrhosis -Esophagitis by EGD 01/11/2025 -CAD s/p PCI with IA Integrilin, aspiration thrombectomy, PTCA, and KISHORE placement (Promus 4.0x16 mm) in the proximal LAD done on 12/19/2015 -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 Troponins have been elevated in the 200-400 range. May need angiography with a small dose of contrast prior to valve surgery, and at the risk of septic embolization. ] EVANS FLORES MD Feb 27, 2025 07:12
--- NOTE | 2025-02-27 08:46 | CONS ---
TIME: 8:00 a.m. HISTORY OF PRESENT ILLNESS: The patient is a 44-year-old gentleman who presented with shortness of breath, tiredness and overall feeling malaise. He was found to have bacteremia and endocarditis of his aortic valve with severe aortic insufficiency. Cardiac Surgery was consulted. PHYSICAL EXAMINATION: NEUROLOGIC: Alert and oriented. CARDIAC: S1, S2. Regular rate and rhythm. RESPIRATORY: Clear to auscultation bilaterally. ASSESSMENT AND PLAN: This is a 44-year-old gentleman with bacterial endocarditis, severe aortic insufficiency. He currently has pneumonia, has been treated with antibiotics. Also, has some pulmonary edema bilaterally. He was treated with IV Lasix. He will eventually need an aortic valve replacement. He will need a left heart catheterization given his history of coronary artery disease. We will proceed with surgery in the upcoming days after the left heart catheterization has been performed. I explained the benefits and the risks including loss of limb, loss of life, bleeding, infection, stroke, and others. He understands and he wished to proceed with surgery. TID: [id number] RECEIPT: [id number]
--- NOTE | 2025-02-27 10:49 | HMCIMG ---
CHEST 1VW HISTORY: Pneumonia COMPARISON: 02/26/2025 FINDINGS: A frontal projection of the chest was obtained. There are bilateral pulmonary infiltrates suggestive of pulmonary vascular congestion with possible superimposed pneumonitis. The heart is borderline enlarged. Mild degenerative changes are seen. No evidence of aortic calcification is seen. IMPRESSION: 1. Bilateral pulmonary infiltrates are seen suggestive of pulmonary vascular congestion with possible superimposed pneumonitis.
--- NOTE | 2025-02-27 14:57 | PN ---
[facility] PROGRESS NOTE Date Patient Seen: Feb 27, 2025 Time of Visit: 1224 Supervising Physician: Dr. Zamarripa Primary Care Physician: Self Referral MD Outpatient Specialists: Inpatient Consults: Dr Dumont PROBLEM LIST: - Acute Hypoxic respiratory failure POA requiring NIV -Acute on chronic diastolic heart failure w/ EF 50-55% on 2 D echo POA - Aortica Valvular vegetation present 1.4cm -Severe Aortic regurgitation Severe multifocal bilateral Bacterial Pneumonia SCAP score 20 Points ( Recommend ICU monitoring) sputum culture positive for E coli and Klebsiella -Bilateral Pleural Effusions POA -Acute Cystitis POA -Normocytic anemia -Acute on chronic CKD stage IIIb -Fidelina esophagitis identified on EGD done 01/11/2025 -Bacterial endocarditis affecting the aortic valve (1.81x1.17 cm mass attached to the noncoronary cusp leaflet) identified on [facility]KE done 01/11/2025 -Left atrial appendage thrombus identified on [facility]KE done 01/11/2025 -Elevated troponin (type II RI) -thrombocytosis -Liver cirrhosis MELD Score 22 Points ( 19.6 % Estimated 3 month Mortality) -cholelithiasis -Esophagitis by EGD 01/11/2025 -CAD s/p PCI with IA Integrilin, aspiration thrombectomy, PTCA, and KISHORE plac ement (Promus 4.0x16 mm) in the proximal LAD done on 12/19/2015 -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 he is hemodynamically stable with a blood pressure of 125/51, heart rate in the 80s respiratory rate of 24 unlabored saturating 95% on5 L via nasal cannula. Urine output 1.7 L in the last 24 hours. WBCs 16.3 H&H 7.2/31.7 Platelet count of 443 K. chemistry potassium 3.4 chloride of 99 carbon [id number] BUN creatinine 2.1 GFR of 39 glucose 106 lactic acid of 2.8 trending down total calcium 8.4 and albumin of 1.60. Sensitive troponin of 404 with previously be in 258. Respiratory culture growing Gram-negative rods and Gram-positive rods. CV surgeon has been consulted per Cardiology for aortic endocarditis severe aortic regurgitation. We will continue to follow cardiology recommendations and for now patient may downgrade from ICU. 02/26 patient was seen and examined at bedside with no family present. Patient is currently on 3 L nasal cannula is tolerating well. Patient does not use home oxygen. Patient denies any chest pain or shortness for breath. Denies any nausea vomiting or abdominal pain. Patient is sputum culture positive for E co li and Klebsiella. Patient to continue on IV antibiotics per ID recommendations. Has remained hemodynamically stable. We will continue to monitor closely. Patient will require 6 minute one partner discharge 02/27 patient was seen and examined at bedside no family present. Patient currently on3 L nasal cannula tolerating well. Patient will require home oxygen evaluation prior to discharge patient does not use home oxygen. At time of visit patient denies any chest pain report shortness of breath slowly improving. Has remained hemodynamically stable. No temperatures have been reported. Patient to continue on IV antibiotics per ID recommendations. As per primary nurse no acute events to be reported at this time. Dispo per primary team. REVIEW OF SYSTEMS: 12 point ROS reviewed with patient. Pertinent positives mentioned above. Otherwise negative. PHYSICAL EXAM: GENERAL: alert, weak, awake oriented x 3 HEENT: EOMI, Sclera non icteric, moist mucosa NECK: Supple, no JVD, trachea midline LUNGS: Crackles breath sounds bilaterally. No wheezes HEART: Regular rate and rhythm. Normal S1 and S2, without murmurs ABD: Obese Abdomen soft, nontender. Bowel sounds present EXT: No clubbing cyanosis or edema NEURO: Alert and oriented to person, follows commands Vital Signs (last 8hr) Date Time Temp Pulse Resp B/P (MAP) Pulse Ox O2 Delivery O2 Flow Rate FiO2 02/27/25 12:00 97.5 97 18 99/35 96 Room Air 02/27/25 08:00 97 Nasal Cannula* 2 28 02/27/25 08:00 97.7 101 18 95/32 97 Nasal Cannula 2.0 LABS: Hematology Labs: Test 02/27/25 04:47 Range/Units White Blood Count 11.7 H 4.8-10.8 K/uL Red Blood Count 3.02 L 4.50-6.20 MIL/uL Hemoglobin 9.3 L 14.0-18.0 g/dL Hematocrit 28.6 L 42-54 % Mean Corpuscular Volume 94.7 79-99 fL Mean Corpuscular Hemoglobin 30.8 27.0-33.0 pg Mean Corpuscular Hemoglobin Concent 32.5 32.0-36.0 g/dL Red Cell Distribution Width 16.9 H 11.0-15.5 % Platelet Count 325 130-400 K/uL Mean Platelet Volume 9.1 7.5-10.5 fL Immature Granulocyte % (Auto) 0.7 0-1 % Neutrophils (%) (Auto) 72.5 40.0-77.0 % Lymphocytes (%) (Auto) 16.6 L 21.0-51.0 % Monocytes (%) (Auto) 7.4 3.0-13.0 % Eosinophils (%) (Auto) 1.6 0.0-8.0 % Basophils (%) (Auto) 1.2 0.0-5.0 % Neutrophils # (Auto) 8.5 H 1.8-7.7 K/uL Lymphocytes # (Auto) 1.9 1.0-4.8 K/uL Monocytes # (Auto) 0.9 0.1-1.0 K/uL Eosinophils # (Auto) 0.19 0.00-0.70 K/uL Basophils # (Auto) 0.14 0.00-0.20 K/uL Absolute Immature Granulocyte (auto 0.08 0-1 K/uL Nucleated Red Blood Cells 0.0 0.0-0.19 % Chemistry Labs: Test 02/27/25 05:35 02/27/25 04:47 Range/Units Whole Blood Glucose 124 H 70-110 MG/DL Sodium Level 134 L 136-145 mmol/L Potassium Level 2.9 *L 3.5-5.1 mmol/L Chloride Level 99 L 101-111 mmol/L Carbon Dioxide Level 24 21-32 mmol/L Blood Urea Nitrogen 24 H 7-18 mg/dL Creatinine 1.8 H 0.5-1.3 mg/dL Glomerular Filtration Rate Calc 47 >90 mL/min Random Glucose 123 H 70-105 mg/dL Total Calcium 8.6 8.5-10.1 mg/dL Magnesium Level 1.80 1.80-2.40 mg/dL Total Bilirubin 0.7 0.2-1.0 mg/dL Aspartate Amino Transf (AST/SGOT) 16 10-37 U/L Alanine Aminotransferase (ALT/SGPT) 3 L 12-78 U/L Alkaline Phosphatase 84 50-136 U/L B-Type Natriuretic Peptide 733 H 0-100 pg/mL Total Protein 6.9 6.0-8.3 g/dL Albumin 2.2 L 3.5-5.0 g/dL DIAGNOSTICS / RADIOLOGY RESULTS: na PLAN Continue IV antibiotics per ID recommendations Continue activity titrate FiO2 as tolerated Maintain adequate oxygenation Keep O2 sats greater equal to 90% Patient required 6 min walk prior to discharge for home oxygen evaluation Aspiration precaution Rest of the care per primary team NEURO: Minimize central acting medications as possible. Maintain fall precautions, adequate lighting during the day PULMONARY: Supplemental 02 as needed. Maintain aspiration precautions at all times CARDIOVASCULAR: Follow hemodynamics. Vital signs per facility protocol GI & NUTRITION: Continue with nutritional support. Continue stool softeners and laxatives as needed. KIDNEYS & ELECTROLYTES: Strict monitoring of intake, output and overall fluid balance. Avoid nephrotoxic medications to the extent possible. Medications to be dosed according to renal function. Monitor electrolytes and replace as needed ENDOCRINE: Maintain blood glucose between 100-180 at all times. Hypoglycemia protocol in place INFECTIOUS DISEASE: Trend temperature, WBC and procalcitonin level Follow cultures, deescalate antibiotics as soon as possible. Panculture if new onset fever ONCOLOGY/HEMATOLOGY/COAGULATION: Monitor for s/s of bleeding Monitor hemoglobin, coagulation studies as needed SKIN: Pressure ulcer prevention per facility protocol Specialty mattress ORTHO/REHAB: Continue PT/OT Prophylaxis: Continue GI and DVT prophylaxis Code Status: Full Resuscitation Disposition: Per primary team Other: Case discussed with supervising physician plan of care agreed upon ZI BOB Feb 27, 2025 14:57
--- NOTE | 2025-02-27 18:19 | PN ---
[facility] PROGRESS NOTE Date of Service: Feb 27, 2025 Time of Service: 18:04 SUBJECTIVE: [ HPI : 54-year-old male with a complex medical history including recent hospitalization with a Gram-positive bacteremia secondary to Staph aureus, severe sepsis and endocarditis with echogenic vegetations on noncoronary cusps and right coronary cusp as well as left atrial appendage clot on January 11, 2025 presented to the ED days history of worsening shortness of breath. He was discharged on January 31, 2025 with long-term IV linezolid via PICC line for infective endocarditis. Since 3 days he reports progressive dyspnea, worsened acutely today. He denies chest pain but notes fatigue and exertional intolerance. There is no reported fever or chills. He was in mild respiratory distress on arrival. Notably has a past medical history of Fidelina esophagitis, uncontrolled diabetes mellitus type 2 BRENDAN, immune thrombocytopenic purpura, UTI Klebsiella and substance abuse with cocaine alcohol and tobacco. So on physical examination he is positive for shortness of breaths and cough no hemoptysis. His lungs have expiratory wheezes and diffuse crackling bilaterally. He is tachycardic with regular rhythm. His WBC count is at 18, hemoglobin at 10.5 and platelet count at 470 K with leukocytosis chronic anemia and thrombocytosis, chemistry is with creatinine showing 2.2, BUN at and CO2 at 18.2 magnesium low consistent with BRENDAN, electrolyte derangements. His arterial blood gas analysis reveals a pH of 7.469, PaCO2 of 26, PO2 of 54.6, HC03 of 18.2 and saturation of 90.2 Representing acute hypoxic respiratory failure with respiratory alkalosis. Serum lactate is elevated at 3.6 persistent lactic acidosis. BNP is at 2410 suggesting cardiac strain or volume overload. And troponin is elevated at [address] segment elevated AR. and urine analysis positive concerning for UTI and nephropathy due to positive hyaline casts. Chest x-ray reveals diffuse bilateral opacities consistent with pneumonia and chest CT scan reveals bilateral pleural effusion bilateral ground-glass pulmonary infiltrates are seen renal ultrasound reveals no hydronephrosis. And a CT scan also revealed gallstone. Echo is ordered to assess vegetations, LA clot and EF. Lower extremity Doppler revealed no DVT, Matthews's cyst versus hematoma in the left knee. EGD from prior history Fidelina esophagitis. The patient is admitted to ICU with the critical Care and Cardiology and Infectious Disease consult has been placed for further management currently on Precedex drip and CPAP setting with tidal volume of 657 and a rate of 36 and PIP of15 and ve of 23.2. Furosemide 40 q.12h is added in addition to his antibiotics monitoring the patient closely and discuss the goal of care with the patient and he agreed upon with it. 02/25/2025. Patient seen and examined along with RN. Feels better , breathing has improved. Continues to be on IV Lasix and metolazone was added. Cardiology and critical Care on board CT surgery was consulted for severe aortic regurgitation.] 02/26/25 review state archivist's note in detail. CT surgery was consulted regarding to his severe AI. Patient continues with diuretics in IV antibiotics. No fevers denies chest pain. 02/27/25 44-year-old male with a complex medical history including infective endocar ditis, severe aortic insufficiency, CHF, BRENDAN, diabetic nephropathy, bilateral pneumonia, and recent gram-negative sepsis, is clinically improving. The patient reports that shortness of breath has been improving slowly over the past 48 hours. He currently denies chest pain, fever, or chills. He is tolerating medications and oral intake well. He remains on low-flow oxygen at 1L via nasal cannula, saturating well at 98%, ambulating to the chair with mild fatigue but no acute respiratory distress. No complaints of palpitations or dizziness. He is aware of the upcoming left heart catheterization and understands the indication for aortic valve replacement surgery. No family was present during bedside examination WBC: 11.7 (? from 13.2) improving leukocytosis Hgb: 9.3 (? from 9.5); Hct 28.6 stable chronic anemia Platelets: Stable; RDW 16.9 Na: 134, K: 2.9, Cl: 99 hypokalemia, mild hyponatremia BUN: 24, Cr: 1.8 improving BRENDAN on CKD BNP: 733 persistent volume overload ABG: pH 7.42, PaO2 72, PaCO2 38 near-normal ABG on NC 1L Sputum Cx (02/24): E. coli and Klebsiella Blood Cx (02/23): Micrococcus spp. (gram-positive cocci) CXR: Bilateral pulmonary vascular congestion + pneumonitis Echo (02/24): EF 6065%, 1.4 cm vegetation, severe aortic insufficiency 2D Echo/Cardiology: Confirmed surgical aortic valve replacement indicated Awaiting left heart cath before valve surgery REVIEW OF SYSTEMS CONSTITUTIONAL: Positive for fatigue, mild subjective fever. NEUROLOGICAL: Denies headache, amaurosis fugax, motor weakness, sensory deficit, vertigo/spinning sensation, gait abnormalities, or tremors. ENT: No hearing loss, otalgia, otorrhea, rhinitis, rhinorrhea, hoarseness, or sore throat. CARDIOVASCULAR: Palpitations, no angina. PULMONARY: Shortness of breath, cough, no hemoptysis. SLEEP: Denies morning headaches, daytime somnolence or napping. Denies difficulty falling asleep, staying asleep, waking from sleep. Denies knowledge of snoring. GASTROINTESTINAL: Denies any type of dysphagia to either liquids or solids. Denies nausea, vomiting, pyrosis, early satiety, abdominal pain, diarrhea, constipation, or changes in stool consistency or caliber. Denies coffee-ground emesis, hematemesis, hematochezia, or melanotic stools. GENITOURINARY: Denies frequency, urgency, nocturia, hematuria or incontinence (Storage/Irritative symptoms.) Low urinary stream, straining to void, urinary intermittency or hesitancy, splitting of the voiding stream, terminal dribbling. ENDOCRINOLOGIC: Denies polyuria, polydipsia, polyphagia or heat/cold intolerances. HEMATOLOGIC: Denies thrombophilia/previous clots, or coagulopathy/bleeding disorders. ONCOLOGIC: Denies personal history of malignancy. DERMATOLOGIC: Denies rashes or pruritus. PSYCHIATRIC: Denies any suicidal or homicidal ideation. Denies hallucinations. PHYSICAL EXAM GENERAL APPEARANCE ill appearing, alert, mildly agitated, in moderate respiratory distress. NEUROLOGICAL: Cranial nerves II-XII grossly intact. Motor is 5/5 in bilateral upper and lower extremities proximal to distal. No sensory deficits. HEENT: Face is symmetric. Pupils are equal and reactive. Extraocular movements are intact. NECK: Supple. No JVD. No thyromegaly. No submental, submandibular, pre- /postauricular, occipital or supraclavicular lymphadenopathy. CHEST: Normal chest expansion. No Telemetry. LUNGS: Expiratory wheeze and diffuse crackles bilaterally CARDIOVASCULAR: Regular. S1 and S2 normal. No appreciable rubs, murmurs or gallops. Tachycardia present ABDOMEN: Soft, nontender, and nondistended. There is no rebound, voluntary guarding, or rigidity. : Deferred. No Ortega. EXTREMITIES: Bilateral 2+ pitting edema, left knee warm swollen, limited ROM and pitting edema more on the left compared to right. SKIN: No skin breakdown. Vital Signs (last 8hr) Date Time Temp Pulse Resp B/P (MAP) Pulse Ox O2 Delivery O2 Flow Rate FiO2 02/27/25 16:00 97.2 98 18 104/41 98 Room Air 02/27/25 14:00 98 20 N/Cannula Low lpm 1.0 24 02/27/25 13:51 98 20 02/27/25 12:00 97.5 97 18 99/35 96 Room Air LABS: Laboratory: Test 02/27/25 15:29 02/27/25 04:47 Range/Units Whole Blood Glucose 150 H 70-110 MG/DL White Blood Count 11.7 H 4.8-10.8 K/uL Red Blood Count 3.02 L 4.50-6.20 MIL/uL Hemoglobin 9.3 L 14.0-18.0 g/dL Hematocrit 28.6 L 42-54 % Mean Corpuscular Volume 94.7 79-99 fL Mean Corpuscular Hemoglobin 30.8 27.0-33.0 pg Mean Corpuscular Hemoglobin Concent 32.5 32.0-36.0 g/dL Red Cell Distribution Width 16.9 H 11.0-15.5 % Platelet Count 325 130-400 K/uL Mean Platelet Volume 9.1 7.5-10.5 fL Immature Granulocyte % (Auto) 0.7 0-1 % Neutrophils (%) (Auto) 72.5 40.0-77.0 % Lymphocytes (%) (Auto) 16.6 L 21.0-51.0 % Monocytes (%) (Auto) 7.4 3.0-13.0 % Eosinophils (%) (Auto) 1.6 0.0-8.0 % Basophils (%) (Auto) 1.2 0.0-5.0 % Neutrophils # (Auto) 8.5 H 1.8-7.7 K/uL Lymphocytes # (Auto) 1.9 1.0-4.8 K/uL Monocytes # (Auto) 0.9 0.1-1.0 K/uL Eosinophils # (Auto) 0.19 0.00-0.70 K/uL Basophils # (Auto) 0.14 0.00-0.20 K/uL Absolute Immature Granulocyte (auto 0.08 0-1 K/uL Nucleated Red Blood Cells 0.0 0.0-0.19 % Sodium Level 134 L 136-145 mmol/L Potassium Level 2.9 *L 3.5-5.1 mmol/L Chloride Level 99 L 101-111 mmol/L Carbon Dioxide Level 24 21-32 mmol/L Blood Urea Nitrogen 24 H 7-18 mg/dL Creatinine 1.8 H 0.5-1.3 mg/dL Glomerular Filtration Rate Calc 47 >90 mL/min Random Glucose 123 H 70-105 mg/dL Total Calcium 8.6 8.5-10.1 mg/dL Magnesium Level 1.80 1.80-2.40 mg/dL Total Bilirubin 0.7 0.2-1.0 mg/dL Aspartate Amino Transf (AST/SGOT) 16 10-37 U/L Alanine Aminotransferase (ALT/SGPT) 3 L 12-78 U/L Alkaline Phosphatase 84 50-136 U/L B-Type Natriuretic Peptide 733 H 0-100 pg/mL Total Protein 6.9 6.0-8.3 g/dL Albumin 2.2 L 3.5-5.0 g/dL Current Medications Medications (Trade) Dose Ordered Sig/Asya Route PRN Reason Start Time Stop Time Status Last Admin Dose Admin Acetaminophen/ Codeine Phosphate (TYLenol-coDEINE (120/12MG 5ML) ELIXIR) 10 ml Q4H PRN PO MODERATE PAIN (4-6) 02/25/25 15:30 02/25/25 15:16 DC Acetaminophen/ Hydrocodone Bitart (NORco 5/325MG) 1 tab Q6H PRN PO MODERATE PAIN (4-6) 02/23/25 23:00 02/28/25 22:59 02/27/25 08:25 1 TAB Albuterol (DUOneb) 1 UDVIAL [id number] IH 02/24/25 00:00 02/24/25 14:15 DC 02/24/25 07:08 1 UDVIAL Alteplase, Recombinant (CathFLO 2MG VIAL) 4 mg ONCE IVCATH 02/25/25 09:30 02/25/25 11:00 DC 02/25/25 10:44 4 MG Aspirin (Aspirin 81mg Ec Tab) 81 mg DAILY PO 02/25/25 09:00 03/27/25 08:59 02/27/25 08:25 81 MG Budesonide (Pulmicort 0.5 Mg/2ml) 0.5 mg BIDRESP IH 02/24/25 18:00 03/26/25 17:59 02/27/25 06:46 0.5 MG Dexmedetomidine/ Sodium Chloride (PRECEdex 400MCG/ 100ML-NS) 400 mcg PROTOCOL IV 02/24/25 10:30 03/26/25 10:29 Doxycycline Hyclate (Doxycycline Hyclate) 100 mg BID PO 02/24/25 21:00 03/06/25 20:59 02/27/25 08:25 100 MG Folic Acid (FOLic ACID 1 MG TABLET) 1 mg DAILY PO 02/25/25 09:00 02/26/25 07:40 DC 02/25/25 09:07 1 MG Folic Acid (FOLic ACID 1 MG TABLET) 1 mg DAILY PO 02/25/25 09:00 03/27/25 08:59 02/27/25 08:24 1 MG Furosemide (LASix 40MG VIAL) 40 mg Q12H IV 02/24/25 08:30 02/24/25 10:20 DC 02/24/25 09:34 40 MG Furosemide (LASix 40MG VIAL) 40 mg Q8H IV 02/24/25 16:30 03/26/25 08:29 02/27/25 17:08 40 MG Heparin Sodium (Porcine) (HEParin 5,000 UNIT VIAL) 5,000 unit BID SQ 02/24/25 09:00 03/26/25 08:59 02/27/25 08:42 5,000 UNIT Ipratropium [place] (AtrovENT UD) 0.5 MG [id number] IH 02/24/25 14:00 03/26/25 13:59 02/27/25 13:51 0.5 MG Linezolid 300 ml @ 150 mls/hr Q12H IV 02/24/25 11:00 03/06/25 10:59 02/27/25 11:29 150 MLS/HR Magnesium Sulfate 50 ml @ 0 mls/hr PROTOCOL PRN IV low magnesium 02/25/25 11:00 03/27/25 10:59 02/25/25 11:27 25 MLS/HR Melatonin (Melatonin) 10 mg HS PRN PO INSOMNIA 02/24/25 11:00 03/26/25 10:59 02/25/25 23:39 10 MG Metolazone (zarOXOlyn) 5 mg DAILY PO 02/25/25 09:00 03/27/25 08:59 02/27/25 08:25 5 MG Montelukast Sodium (SinguLAIR) 10 mg DAILY PO 02/25/25 09:00 03/27/25 08:59 02/27/25 08:25 10 MG Nystatin (NYSTatin 806546 UNIT/ML 5ML UDCUP) 5 ml QID PO 02/24/25 17:00 03/26/25 16:59 02/27/25 17:08 5 ML Ondansetron HCl (zoFRAN 4MG INJ) 4 mg Q6H PRN IVP NAUSEA/VOMITING 02/24/25 21:00 03/26/25 20:59 Pantoprazole Sodium (PROTonix 40MG INJ) 40 mg DAILY IVP 02/24/25 11:00 03/26/25 10:59 02/27/25 08:24 40 MG Pharmacy Profile Note (Lace Assessment) 1 each AD MISC 02/24/25 10:30 02/24/25 10:32 DC Pharmacy Profile Note (Lace Assessment) 1 each AD MISC 02/25/25 15:30 02/25/25 15:17 DC Pharmacy Profile Note (Pharmacy Communication) 1 each ONCE MISC 02/23/25 23:00 02/23/25 23:48 DC Pharmacy Profile Note (Pharmacy Communication) 1 each ONCE MISC 02/25/25 15:30 02/25/25 15:17 DC Piperacillin Sod/ Tazobactam Sod (Zosyn 3.375gm+NS 50ml) 3.375 gm Q8H IV 02/24/25 05:00 03/06/25 04:59 02/27/25 14:38 3.375 GM Potassium Chloride 100 ml @ 100 mls/hr AD PRN IV POTASSIUM PROTOCOL 02/25/25 11:00 02/27/25 10:47 DC 02/27/25 08:24 100 MLS/HR Potassium Chloride 100 ml @ 100 mls/hr AD PRN IV POTASSIUM PROTOCOL 02/25/25 11:00 03/27/25 10:59 Potassium Chloride (K-Dur 10meq Sr Tab) 10 meq AD PRN PO POTASSIUM PROTOCOL 02/27/25 11:00 03/27/25 10:59 Potassium Chloride (K-Dur/Klor-Con 20meq) 10 meq AD PRN PO POTASSIUM PROTOCOL 02/25/25 11:00 02/27/25 10:48 DC Potassium Chloride (KCl 10% Elixir 20meq/15ml) 10 meq AD PRN PO POTASSIUM PROTOCOL 02/25/25 11:00 03/27/25 10:59 Sodium Chloride 1,000 ml @ 75 mls/hr [id number] IV 02/23/25 20:00 02/23/25 23:03 DC 02/23/25 20:08 75 MLS/HR Thiamine HCl (Vitamin B-1) 100 mg DAILY PO 02/25/25 09:00 03/27/25 08:59 02/27/25 08:25 100 MG Vancomycin HCl (Vancomycin Protocol) 1 each AD IV 02/23/25 19:00 02/23/25 19:33 DC DIAGNOSTICS / RADIOLOGY: RUN DATE: 02/26/25 [facility] PAGE 1 RUN TIME: [id number] [address], [place] [address] Department of Laboratories [facility] # [id number] Master Rigger: Humble Shah DO Specimen Report PATIENT: ADAM MOE III ACCT: [id number] LOC: [facility] U: [id number] AGE/SX: 44/M ROOM: [facility] RE02/23/[address]: MAHOGANY CARBAJAL MD : 1980 BED: 1 DIS: STATUS: ADM IN TLOC: SPEC: [id number] LEVAR: 02/23/25-2009 STATUS: COMP REQ: [id number] RECD: 02/25/[address]: BIGG TAMAYO SOURCE: BLOOD ENTR: 02/25/[address]: HEBER LEI MD SPDESC: BLOOD SELF,REFERRAL ORDERED: AERO ID & SENS Procedure Result Jose Date-Time AEROBIC ID & SENSITIVITIES Final 02/26/25-07 [facility] DESCRIPTION: DAY 1: GRAM POSITIVE COCCI IN CLUSTERS PEDIATRIC BOTTLE IDENTIFICATION TO FOLLOW NO FURTHER WORK-UP DONE COMMENT: NO NCCLS STANDARDS AVAILABLE FOR SENSITIVITY COMMENT: NO FURTHER STUDIES MICROCOCCUS & RELATEDSPECIES Test(s) performed by: [facility] [address] [place] [address] @ [facility] Test Performed at: [facility] Luis A [address], [place], [place] Medical Basic Acoustic Analyst: Kp Kate D.O. [ ] RUN DATE: 02/26/25 [facility] PAGE 1 RUN TIME: [phone] [address], [place] [address] Department of Laboratories CLIA # [id number] Master Rigger: Humble Shah DO Specimen Report PATIENT: ADAM MOE III ACCT: [id number] LOC: [facility] U: [id number] AGE/SX: 44/M ROOM: [facility] RE02/23/[address]: MAHOGANY CARBAJAL MD : 1980 BED: 1 DIS: STATUS: ADM IN TLOC: SPEC: [id number] LEVAR: 02/24/25-1315 STATUS: COMP REQ: [id number] RECD: 02/24/25-[address]: JO DAVID SOURCE: SPUTUM ENTR: 02/24/25-[address]: JANUARY CARLSON MD SPDC: EXPECTO HEIDI LUNDBERG MD, CHRISTIAN E MD SELF,REFERRAL STONE,EVANS M MD ORDERED: RESP CULTURE Procedure Result Jose Date-Time GRAM STAIN Final 02/25/25-1016 [facility] GRAM STAIN RESULT: FAIR SPECIMEN [ <10 SEC's/LPF AND 10-25 PMN's/LPF ] RARE GRAM NEGATIVE RODS RARE GRAM POSITIVE RODS RESPIRATORY CULTURE Final 02/26/25-0906 [facility] DESCRIPTION: REPORT 1: 1+ GRAM NEGATIVE RODS IDENTIFICATION AND SENSITIVITY TO FOLLOW REPORT 2: NO FURTHER WORK-UP DONE ESCHERICHIA COLI KLEBSIELLA AEROGENES E COLI LUZ LAYTON M.I.CSmiley RX M.I.C. RX --------- ---- --------- ---- AMPICILLIN >16 R AZTREONAM <=4 S <=4 S CEFAZOLIN >16 R CEFTAZIDIME <=1 S CEFTAZIDIME/AVIBACTAM <=8 S <=8 S CEFTRIAXONE <=1 S GENTAMICIN <=2 S <=2 S LEVOFLOXACIN <=0.5 S <=0.5 S AMPICILLIN/SULBACTAM <=8/4 S MEROPENEM <=1 S <=1 S PIPERACILLIN/TAZOBACTAM <=8 S <=8 S TRIMETHOPRIM/SUFLAMETHOXAZOLE <=2/38 S <=2/38 S @ [facility] Test Performed at: [facility] [address], [place], [place] Medical Basic Acoustic Analyst: Kp Kate D.O. RUN DATE: 02/26/25 [facility] PAGE 1 RUN TIME: [phone] [address], [place] [address] Department of Laboratories CLIA # [id number] Master Rigger: Humble Shah DO Specimen Report SPEC: [id number] PATIENT: ADAM MOE III [id number] (Continued) CONTINUED ON NEXT PAGE PATIENT: ADAM MOE III MR#: [id number] : 1980 SEX: M AGE: 44 LOCATION: [facility] ORDER 2300 STATUS: ADM IN REPORT#: [id number] SERVICE 0600 REASON: Evaluate for pneumonia progress ORDERING PHYSICIAN: ARMANDO OTT MD PROCEDURE: CXR1VW - CHEST 1VW CHEST 1VW HISTORY: Pneumonia COMPARISON: 02/26/2025 FINDINGS: A frontal projection of the chest was obtained. There are bilateral pulmonary infiltrates suggestive of pulmonary vascular congestion with possible superimposed pneumonitis. The heart is borderline enlarged. Mild degenerative changes are seen. No evidence of aortic calcification is seen. IMPRESSION: 1. Bilateral pulmonary infiltrates are seen suggestive of pulmonary vascular congestion with possible superimposed pneumonitis. DICTATED BY: CAROL HOWARD MD DATE: 02/27/25 104 ELECTRONICALLY SIGNED BY: CAROL HOWARD MD DATE: 02/27/25 104 ASSESSMENT: gram positive bacteremia POA Sepsis, POA Pneumonia, POA Acute hypoxic respiratory failure on CPAP, ABG confirms PO2 less than 60 mmHg, POA Acute on chronic diastolic heart failure with exacerbation POA Acute kidney injury stage II, POA Non ST segment elevated AR, most likely type 2 AR secondary to oxygen ischemic POA ITP, POA Uncontrolled diabetes mellitus type 2, POA Diabetic nephropathy, POA Cocaine, alcohol and tobacco use disorder, POA Fidelina esophagitis, POA Matthews's cyst, hematoma, left knee, POA Electrolyte abnormalities, POA Chronic anemia, POA Severe aortic valve insufficiency secondary to infective endocarditis, with large non-coronary cusp vegetation (1.4 cm), EF preserved planned for aortic valve replacement [place] valve infective endocarditis, subacute, gram-positive (Micrococcus) and gram-negative (E. coli, Klebsiella) pathogens, on Zosyn, Linezolid, Doxycycline Bilateral multifocal pneumonia with superimposed pulmonary edema, improving clinically, likely secondary to endocarditis and fluid overload Acute on chronic kidney injury, Hypokalemia Volume overload secondary to congestive heart failure and valvular disease, on diuresis Chronic normocytic anemia, New-onset diabetes mellitus type 2, poorly controlled, monitor glucose closely Electrolyte imbalance hyponatremia, hypokalemia, hypomagnesemia, on repletion protocol Proteinuria with diabetic nephropathy PLAN: Infectious disease: * ontinue Zosyn + Linezolid + Doxycycline pending final culture sensitivities * Repeat blood cultures if febrile or WBC rises ID on board Continue IV linezolid q.12h. Continue Zosyn 3.375 g IV q.8h. Continue IV doxycycline 100 mg b.i.d.. Noted blood cultures and sputum cultures. Pulmonary: Critical Care consult has been placed. Supplemental oxygen support, CPAP support and BiPAP setting as necessary to maintain SpO2 levels greater than 92 Budesonide, albuterol ipratropium nebulizations. Monitor ABGs, O2 sats, chest x-ray. Appreciate Pulmonary and critical Care consult suggestions. * Maintain O? via nasal cannula at 1L/min * Wean off as tolerated * Daily chest physiotherapy; monitor ABG Cardiovascular: Telemetry Repeat echocardiogram reviewed patient with severe aortic regurgitation. We will need CT surgery consult Cardiology consult appreciated we will need pola next week Consider anticoagulation once bleeding risk reassessed. Monitor troponin, BNP. Furosemide q.8h IV for diuresis. Added on metolazone Continue telemetry monitoring * Proceed with left heart catheterization ? aortic valve replacement * Monitor troponins and BNP; follow-up Echo post-op Renal/metabolic Monitor CR, BUN, GFR. Avoid nephrotoxins. Monitor glucose, proteinuria. Replete potassium, magnesium, phosphorus. for per facility protocol. * Strict I/Os, daily BMP * Continue Lasix 40mg IV q8h + Metolazone 5mg daily * Replace K?, Mg? per protocol * Hold nephrotoxic meds PRN GI/nutrition Pantoprazole IV daily. Monitor for GI bleeding. Add thiamine, folate multivitamins if chronic alcohol use. Hematology Monitor platelets for ITP versus reactive thrombocytosis. Consider iron studies, B12, reticulocyte count for anemia. Musculoskeletal: Monitor left knee swelling Avoid NSAIDs due to BRENDAN. Ortho referral if worsening. Sedation/neuro: Precedex for sedation, taper as tolerated. Determine at bedtime for sleep hygiene. ICU delirium prevention with 3 orientation, mobility and lytes during the day. Endocrine: Glucose control with insulin. Monitor for ketones and TKA signs. Consider A1c when stable. Substance use: Assess for withdrawal. [facility] protocol p.r.n. if needed. Offered smoking cessation and substance abuse counseling. * Await left heart catheterization * Cardiothoracic surgery consult completed pending OR schedule for AVR * Plan discharge with home O? evaluation, rehab placement Case management consult has been placed for further discharge planning. ATTESTATION BY PHYSICIAN I have seen and examined the patient. I reviewed the documentation, medical decision making, and treatment plan as noted by the resident above. I agree with the findings and plan of care. Yuki Martinez MD, RAGHAVA R MD Feb 27, 2025 18:19
[2025-02-27] MEDS: PoTASSium chloRIDE 10MEQ/100ML 100 ML IV PRN (19:38)
--- NOTE | 2025-02-27 21:40 | PN ---
INFECTIOUS DISEASE PROGRESS NOTE Date of Service: Feb 27, 2025 SUBJECTIVE: This is a 44-year-old male patient who was seen and examined at bedside in room 413. Patient is awake, alert and oriented x3. Patient is sitting up to the bedside chair. No dyspnea observe. The final blood culture results came back positive for Micrococcus and related species and the sputum culture is positive for E coli and Klebsiella aerogenes. The repeat 2D echo on 02/24/2025 still showing aortic valvular vegetation 1.4 cm. Patient continues on doxycycline, linezolid and Zosyn IV. Patient is pending a Cardiology cardiology evaluation for possible heart catheterization. We will continue to follow patient's care. PHYSICAL EXAM EYES: Anicteric. Pupils equal and reactive. HENT: No oral thrush seen, moist Oral mucosa. NECK: Supple, no JVD or thyromegaly. LUNGS: Oxygen support via nasal cannula. CARDIOVASCULAR: S1, S2 regular. No murmur heard. ABDOMEN: Soft, non tender, bowel sounds present, no organomegaly CENTRAL NERVOUS SYSTEM: Awake, alert, oriented x 3. SKIN: No rashes, no swelling. Lower extremity edema. LYMPHATICS: No peripheral lymphadenopathy MUSCULOSKELETAL: No joint swelling, erythema or tenderness. EXTREMITIES: No cyanosis or clubbing. Lower extremity edema. BACK: No deformity, no pressure ulcer. GENITOURINARY: No dysuria or hematuria. Vital Sign (Last 12 Hours) 02/27/25 02/27/25 02/27/25 02/27/25 12:00 13:51 14:00 16:00 Temp 97.5 97.2 Pulse 97 98 98 98 Resp 18 20 20 18 B/P (MAP) 99/35 104/41 Pulse Ox 96 98 O2 Delivery Room Air N/Cannula Low lpm Room Air O2 Flow Rate 1.0 FiO2 24 02/27/25 20:00 Temp 96.8 Pulse 100 Resp 18 B/P (MAP) 115/49 Pulse Ox 100 O2 Delivery Nasal Cannula O2 Flow Rate 2.0 Intake & Output (last 24hrs) 02/26/25 02/26/25 02/27/25 15:00 23:00 07:00 Intake Total 500 ml 500 ml Balance 500 ml 500 ml LABS: Laboratory: Test 02/27/25 19:30 02/27/25 19:10 02/27/25 04:47 Range/Units Whole Blood Glucose 151 H 70-110 MG/DL Potassium Level 3.0 *L 3.5-5.1 mmol/L White Blood Count 11.7 H 4.8-10.8 K/uL Red Blood Count 3.02 L 4.50-6.20 MIL/uL Hemoglobin 9.3 L 14.0-18.0 g/dL Hematocrit 28.6 L 42-54 % Mean Corpuscular Volume 94.7 79-99 fL Mean Corpuscular Hemoglobin 30.8 27.0-33.0 pg Mean Corpuscular Hemoglobin Concent 32.5 32.0-36.0 g/dL Red Cell Distribution Width 16.9 H 11.0-15.5 % Platelet Count 325 130-400 K/uL Mean Platelet Volume 9.1 7.5-10.5 fL Immature Granulocyte % (Auto) 0.7 0-1 % Neutrophils (%) (Auto) 72.5 40.0-77.0 % Lymphocytes (%) (Auto) 16.6 L 21.0-51.0 % Monocytes (%) (Auto) 7.4 3.0-13.0 % Eosinophils (%) (Auto) 1.6 0.0-8.0 % Basophils (%) (Auto) 1.2 0.0-5.0 % Neutrophils # (Auto) 8.5 H 1.8-7.7 K/uL Lymphocytes # (Auto) 1.9 1.0-4.8 K/uL Monocytes # (Auto) 0.9 0.1-1.0 K/uL Eosinophils # (Auto) 0.19 0.00-0.70 K/uL Basophils # (Auto) 0.14 0.00-0.20 K/uL Absolute Immature Granulocyte (auto 0.08 0-1 K/uL Nucleated Red Blood Cells 0.0 0.0-0.19 % Sodium Level 134 L 136-145 mmol/L Chloride Level 99 L 101-111 mmol/L Carbon Dioxide Level 24 21-32 mmol/L Blood Urea Nitrogen 24 H 7-18 mg/dL Creatinine 1.8 H 0.5-1.3 mg/dL Glomerular Filtration Rate Calc 47 >90 mL/min Random Glucose 123 H 70-105 mg/dL Total Calcium 8.6 8.5-10.1 mg/dL Magnesium Level 1.80 1.80-2.40 mg/dL Total Bilirubin 0.7 0.2-1.0 mg/dL Aspartate Amino Transf (AST/SGOT) 16 10-37 U/L Alanine Aminotransferase (ALT/SGPT) 3 L 12-78 U/L Alkaline Phosphatase 84 50-136 U/L B-Type Natriuretic Peptide 733 H 0-100 pg/mL Total Protein 6.9 6.0-8.3 g/dL Albumin 2.2 L 3.5-5.0 g/dL DIAGNOSTICS / RADIOLOGY: PATIENT: ADAM MOE III ACCT: [id number] LOC: [facility] U: [id number] AGE/SX: 44/M ROOM: [facility] RE02/23/[address]: MAHOGANY CARBAJAL MD : 1980 BED: 1 DIS: STATUS: ADM IN TLOC: SPEC: [id number] LEVAR: 02/24/25-1315 STATUS: COMP REQ: [id number] RECD: 02/24/25-[address]: JO DAVID SOURCE: SPUTUM ENTR: 02/24/25-[address]: JANUARY CARLSON MD SPDC: EXPECTO DOROTHY LUNDBERG MD, CHRISTIAN E MD SELF,REFERRAL EVANS FLORES MD ORDERED: RESP CULTURE -- Procedure Result Jose Date-Time GRAM STAIN Final 02/25/25-1016 [facility] GRAM STAIN RESULT: FAIR SPECIMEN [ <10 SEC's/LPF AND 10-25 PMN's/LPF ] RARE GRAM NEGATIVE RODS RARE GRAM POSITIVE RODS RESPIRATORY CULTURE Final 02/26/25-0906 [facility] COLONY DESCRIPTION: REPORT 1: 1+ GRAM NEGATIVE RODS IDENTIFICATION AND SENSITIVITY TO FOLLOW REPORT 2: NO FURTHER WORK-UP DONE ESCHERICHIA COLI KLEBSIELLA AEROGENES E COLI LUZ [facility] M.I.C. RX M.I.C. RX --------- ---- --------- ---- AMPICILLIN >16 R AZTREONAM <=4 S <=4 S CEFAZOLIN >16 R CEFTAZIDIME <=1 S CEFTAZIDIME/AVIBACTAM <=8 S <=8 S CEFTRIAXONE <=1 S GENTAMICIN <=2 S <=2 S LEVOFLOXACIN <=0.5 S <=0.5 S AMPICILLIN/SULBACTAM <=8/4 S MEROPENEM <=1 S <=1 S PIPERACILLIN/TAZOBACTAM <=8 S <=8 S TRIMETHOPRIM/SUFLAMETHOXAZOLE <=2/38 S <=2/38 S -- PATIENT: ADAM MOE III ACCT: [id number] LOC: [facility] U: [id number] AGE/SX: 44/M ROOM: [facility] RE02/23/[address]: MAHOGANY CARBAJAL MD : 1980 BED: 1 DIS: STATUS: ADM IN TLOC: SPEC: [id number] LEVAR: 02/23/25 STATUS: COMP REQ: [id number] RECD: 02/25/[address] [facility] [address]: BIGG TAMAYO SOURCE: BLOOD ENTR: 02/25/[address] [facility] [address]: HEBER LEI MD [facility]: BLOOD SELF,REFERRAL ORDERED: AERO ID & SENS Procedure Result Jose Date-Time AEROBIC ID & SENSITIVITIES Final 02/26/25-0712 [facility] COLONY DESCRIPTION: DAY 1: GRAM POSITIVE COCCI IN [facility] IDENTIFICATION TO FOLLOW NO FURTHER WORK-UP DONE COMMENT: NO NCCLS STANDARDS AVAILABLE FOR SENSITIVITY COMMENT: NO FURTHER STUDIES MICROCOCCUS & RELATEDSPECIES Test(s) performed by: [facility] [address] [place] [address] ASSESSMENT: Gram-positive Bacteremia. Aortic valve Endocarditis. Bacterial Pneumonia. Leukocytosis. Acute on chronic diastolic heart failure. Acute on chronic renal failure. Morbid obesity. Hypoxic respiratory failure, requiring oxygen support. Anemia. Hypokalemia. PLAN: Continue linezolid IV. Continue Zosyn IV. Continue doxy p.o.. Continue oxygen support. Continue pain management. Avoid nephrotoxic medications. Pending cardiology consult for possible heart catheterization. This case was reviewed and discussed with my supervising physician and the above assessment and plan was formulated and agreed upon. ATTESTATION BY PHYSICIAN I have seen and examined the patient. I reviewed the documentation, medical decision making, and treatment plan as noted by the mid-level provider above. I agree with the findings and plan of care. JANUARY CARLSON MD, MIRTA L [facility] Feb 27, 2025 21:40
[2025-02-28] VITALS (12 sets, daily range): BP systolic 103–149; BP diastolic 39–67; PULSE 75–106; RESP 18–20; TEMP 97.3–98.4; O2SAT 94–100
[2025-02-28 05:35] LABS: BASOPHILS # (AUTO) 0.14 K/uL (0.00-0.20); BASOPHILS % (AUTO) 1.2 % (0.0-5.0); EOSINOPHILS # (AUTO) 0.32 K/uL (0.00-0.70); EOSINOPHILS % (AUTO) 2.7 % (0.0-8.0); HEMATOCRIT 29.8 % (42-54); IMMATURE GRANULOCYTE ABSOLUTE 0.07 K/uL (0-1); LYMPHOCYTES # (AUTO) 2.4 K/uL (1.0-4.8); LYMPHOCYTES % (AUTO) 20.8 % (21.0-51.0); MEAN CORPUSCULAR HEMOGLOBIN 31.2 pg (27.0-33.0); MEAN CORPUSCULAR HGB CONC 32.2 g/dL (32.0-36.0); MEAN CORPUSCULAR VOLUME 96.8 fL (79-99); MONOCYTES # (AUTO) 0.8 K/uL (0.1-1.0); MONOCYTES % (AUTO) 6.8 % (3.0-13.0); NEUTROPHILS # (AUTO) 7.9 K/uL (1.8-7.7); NEUTROPHILS % (AUTO) 67.9 % (40.0-77.0); PLATELET COUNT (AUTO) 329 K/uL (130-400); RED BLOOD CELL COUNT(AUTO) 3.08 MIL/uL (4.50-6.20); WHITE BLOOD COUNT (AUTO) 11.7 K/uL (4.8-10.8)
[2025-02-28 05:51] LABS: ALBUMIN 2.2 g/dL (3.5-5.0); ASPARTATE AMINOTRANSFERASE 14 U/L (10-37); BILIRUBIN,TOTAL 0.6 mg/dL (0.2-1.0); CARBON DIOXIDE 26 mmol/L (21-32); CHLORIDE 98 mmol/L (101-111); CREATININE 2.1 mg/dL (0.5-1.3); GLOMERULAR FILTR. RATE CALC 39 mL/min (>90); GLUCOSE,RANDOM 113 mg/dL (70-105); POTASSIUM 3.3 mmol/L (3.5-5.1); SODIUM SERUM 136 mmol/L (136-145); UREA NITROGEN, BLOOD 27 mg/dL (7-18)
[2025-02-28 05:56] LABS: ALANINE AMINOTRANSFERASE < 6 U/L (12-78)
[2025-02-28] MEDS: PoTASSium chloRIDE 10MEQ SR 10 MEQ/TAB TAB.SR.24H PO PRN (06:46)
--- NOTE | 2025-02-28 09:39 | HMCIMG ---
CHEST 1VW HISTORY: Pneumonia COMPARISON: 02/27/2025 FINDINGS: A frontal projection of the chest was obtained. There are bilateral pulmonary infiltrates suggestive of pulmonary vascular congestion with possible superimposed pneumonitis. The heart is borderline enlarged. Degenerative changes are seen. No evidence of aortic calcification is seen. IMPRESSION: 1. Bilateral pulmonary infiltrates are seen suggestive of pulmonary vascular congestion with possible superimposed pneumonitis. Interval worsening is seen.
--- NOTE | 2025-02-28 09:54 | PN ---
[facility] CARDIOLOGY PROGRESS NOTE Date Patient Seen: Feb 28, 2025 Time of Visit: 09:49 Interval History: [No acute events overnight. Aware of CV surgery recommendations, and due to the patients history of CAD he will undergo coronary angiogra with possible PCI , and the patient will proceed with surgery in the upcoming days after the left heart catheterization has been performed Physical Examination: GENERAL: [No acute distress.] HEAD: [Normal with no signs of head trauma.] EYES: [PERRLA, EOMI, conjunctiva and sclera normal.] ENT: [Hearing grossly intact, normal oropharynx.] NECK: [Supple without JVD. There is no tenderness, lymphadenopathy, or masses. No thyromegaly. Normal carotid upstrokes without bruits.] LUNGS: [Clear breath sounds bilaterally. There are right basilar rales one third of the way up the chest. No wheezes, or rhonchi.] HEART: [Normal rate and rhythm. diastolic murmur.] VASC: [Peripheral pulses +2 bilaterally.] ABD: [Bowel sounds normal, soft, nontender, no masses, no organomegaly. No audible bruits.] NEURO: [Awake, alert, and oriented x3. No focal sensory or strength deficits noted.] Laboratory: [ ] Hematology Labs: Test 02/28/25 05:20 Range/Units White Blood Count 11.7 H 4.8-10.8 K/uL Red Blood Count 3.08 L 4.50-6.20 MIL/uL Hemoglobin 9.6 L 14.0-18.0 g/dL Hematocrit 29.8 L 42-54 % Mean Corpuscular Volume 96.8 79-99 fL Mean Corpuscular Hemoglobin 31.2 27.0-33.0 pg Mean Corpuscular Hemoglobin Concent 32.2 32.0-36.0 g/dL Red Cell Distribution Width 17.0 H 11.0-15.5 % Platelet Count 329 130-400 K/uL Mean Platelet Volume 9.1 7.5-10.5 fL Immature Granulocyte % (Auto) 0.6 0-1 % Neutrophils (%) (Auto) 67.9 40.0-77.0 % Lymphocytes (%) (Auto) 20.8 L 21.0-51.0 % Monocytes (%) (Auto) 6.8 3.0-13.0 % Eosinophils (%) (Auto) 2.7 0.0-8.0 % Basophils (%) (Auto) 1.2 0.0-5.0 % Neutrophils # (Auto) 7.9 H 1.8-7.7 K/uL Lymphocytes # (Auto) 2.4 1.0-4.8 K/uL Monocytes # (Auto) 0.8 0.1-1.0 K/uL Eosinophils # (Auto) 0.32 0.00-0.70 K/uL Basophils # (Auto) 0.14 0.00-0.20 K/uL Absolute Immature Granulocyte (auto 0.07 0-1 K/uL Nucleated Red Blood Cells 0.0 0.0-0.19 % Chemistry Labs: Test 02/28/25 05:23 02/28/25 05:20 02/27/25 04:47 Range/Units Whole Blood Glucose 114 H 70-110 MG/DL Sodium Level 136 136-145 mmol/L Potassium Level 3.3 L 3.5-5.1 mmol/L Chloride Level 98 L 101-111 mmol/L Carbon Dioxide Level 26 21-32 mmol/L Blood Urea Nitrogen 27 H 7-18 mg/dL Creatinine 2.1 H 0.5-1.3 mg/dL Glomerular Filtration Rate Calc 39 >90 mL/min Random Glucose 113 H 70-105 mg/dL Total Calcium 8.8 8.5-10.1 mg/dL Total Bilirubin 0.6 0.2-1.0 mg/dL Aspartate Amino Transf (AST/SGOT) 14 10-37 U/L Alanine Aminotransferase (ALT/SGPT) < 6 L 12-78 U/L Alkaline Phosphatase 84 50-136 U/L Total Protein 7.0 6.0-8.3 g/dL Albumin 2.2 L 3.5-5.0 g/dL Magnesium Level 1.80 1.80-2.40 mg/dL B-Type Natriuretic Peptide 733 H 0-100 pg/mL Diagnostics / Radiology: [Copy/Paste Echos/Imaging Report here] Impression and Plan: [-severe AI, secondary to endocarditis -2D echo on 02/24, EF 60-65%, demonstrating with severe AI, 1.4 cm aortic leaflet vegetation -Acute on chronic diastolic heart failure -PNA -UTI -Normocytic anemia -Acute on chronic CKD stage IIIb, baseline creatinine of 2 -Fidelina esophagitis identified on EGD done 01/11/2025 -Bacterial endocarditis affecting the aortic valve (1.81x1.17 cm mass attached to the noncoronary cusp leaflet) identified on DRAKE done 01/11/2025 -Lactic acidosis, improving -Left atrial appendage thrombus identified on DRAKE done 01/11/2025, not currently an anticoagulation due to thrombocytopenia -Normal LV systolic function (LVEF: 60-65% by echo done 01/11/2025) -Elevated troponin (type II NC), peaking in the 400s -History of ITP in 12/2024 -Liver cirrhosis -Esophagitis by EGD 01/11/2025 -CAD s/p PCI with IA Integrilin, aspiration thrombectomy, PTCA, and KISHORE placement (Promus 4.0x16 mm) in the proximal LAD done on 12/19/2015 -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 Troponins have been elevated in the 200-400 range. Aware of CV surgery recommendations, and due to the patients history of CAD he will undergo coronary angiogra with possible PCI , Al risks ( , NC,stroke , bleeding ) and goals were discussed with the patient , which verbalized understanding and consents to move forward with the procedure The patient will proceed with surgery in the upcoming days after the left heart catheterization has been performed May need angiography with a small dose of contrast prior to valve surgery, and at the risk of septic embolization. Thank you for this consult cardiology will continue to follow along] ATTESTATION BY PHYSICIAN I have seen and examined the patient, reviewed the above documentation, participated in medical decision making, made necessary modifications, and agree with the treatment plan as documented by my mid-level provider above. MD SANDRA Cervantes DANIELLE M MD Feb 28, 2025 09:54
--- NOTE | 2025-02-28 13:06 | PN ---
[facility] PROGRESS NOTE Date of Service: Feb 28, 2025 Time of Service: 12:57 SUBJECTIVE: [ HPI : 54-year-old male with a complex medical history including recent hospitalization with a Gram-positive bacteremia secondary to Staph aureus, severe sepsis and endocarditis with echogenic vegetations on noncoronary cusps and right coronary cusp as well as left atrial appendage clot on January 11, 2025 presented to the ED days history of worsening shortness of breath. He was discharged on January 31, 2025 with long-term IV linezolid via PICC line for infective endocarditis. Since 3 days he reports progressive dyspnea, worsened acutely today. He denies chest pain but notes fatigue and exertional intolerance. There is no reported fever or chills. He was in mild respiratory distress on arrival. Notably has a past medical history of Fidelina esophagitis, uncontrolled diabetes mellitus type 2 BRENDAN, immune thrombocytopenic purpura, UTI Klebsiella and substance abuse with cocaine alcohol and tobacco. So on physical examination he is positive for shortness of breaths and cough no hemoptysis. His lungs have expiratory wheezes and diffuse crackling bilaterally. He is tachycardic with regular rhythm. His WBC count is at 18, hemoglobin at 10.5 and platelet count at 470 K with leukocytosis chronic anemia and thrombocytosis, chemistry is with creatinine showing 2.2, BUN at and CO2 at 18.2 magnesium low consistent with BRENDAN, electrolyte derangements. His arterial blood gas analysis reveals a pH of 7.469, PaCO2 of 26, PO2 of 54.6, HC03 of 18.2 and saturation of 90.2 Representing acute hypoxic respiratory failure with respiratory alkalosis. Serum lactate is elevated at 3.6 persistent lactic acidosis. BNP is at 2410 suggesting cardiac strain or volume overload. And troponin is elevated at [address] segment elevated NH. and urine analysis positive concerning for UTI and nephropathy due to positive hyaline casts. Chest x-ray reveals diffuse bilateral opacities consistent with pneumonia and chest CT scan reveals bilateral pleural effusion bilateral ground-glass pulmonary infiltrates are seen renal ultrasound reveals no hydronephrosis. And a CT scan also revealed gallstone. Echo is ordered to assess vegetations, LA clot and EF. Lower extremity Doppler revealed no DVT, Matthews's cyst versus hematoma in the left knee. EGD from prior history Fidelina esophagitis. The patient is admitted to ICU with the critical Care and Cardiology and Infectious Disease consult has been placed for further management currently on Precedex drip and CPAP setting with tidal volume of 657 and a rate of 36 and PIP of15 and ve of 23.2. Furosemide 40 q.12h is added in addition to his antibiotics monitoring the patient closely and discuss the goal of care with the patient and he agreed upon with it. 02/25/2025. Patient seen and examined along with RN. Feels better , breathing has improved. Continues to be on IV Lasix and metolazone was added. Cardiology and critical Care on board CT surgery was consulted for severe aortic regurgitation.] 02/26/25 review sound effects person's note in detail. CT surgery was consulted regarding to his severe AI. Patient continues with diuretics in IV antibiotics. No fevers denies chest pain. 02/27/25 44-year-old male with a complex medical history including infective endocard itis, severe aortic insufficiency, CHF, BRENDAN, diabetic nephropathy, bilateral pneumonia, and recent gram-negative sepsis, is clinically improving. The patient reports that shortness of breath has been improving slowly over the past 48 hours. He currently denies chest pain, fever, or chills. He is tolerating medications and oral intake well. He remains on low-flow oxygen at 1L via nasal cannula, saturating well at 98%, ambulating to the chair with mild fatigue but no acute respiratory distress. No complaints of palpitations or dizziness. He is aware of the upcoming left heart catheterization and understands the indication for aortic valve replacement surgery. No family was present during bedside examination WBC: 11.7 (? from 13.2) improving leukocytosis February 28 2025 44-year-old male with severe [place] aortic valve insufficiency, bacterial endocarditis, and worsening pulmonary congestion, was upgraded to PCCU today due to clinical and radiographic deterioration. He remains dyspneic and hypoxic despite low-flow oxygen support. He reports difficulty breathing, especially in the supine position, and has been unable to tolerate lying flat due to severe orthopnea. He feels increasingly fatigued, lightheaded, and weak. Denies chest pain, fevers, chills, or palpitations. He is aware of his pending left heart catheterization and the need for aortic valve replacement surgery and verbalizes continued understanding and consent REVIEW OF SYSTEMS CONSTITUTIONAL: Positive for fatigue, mild subjective fever. NEUROLOGICAL: Denies headache, amaurosis fugax, motor weakness, sensory deficit, vertigo/spinning sensation, gait abnormalities, or tremors. ENT: No hearing loss, otalgia, otorrhea, rhinitis, rhinorrhea, hoarseness, or sore throat. CARDIOVASCULAR: Palpitations, no angina. PULMONARY: Shortness of breath, cough, no hemoptysis. SLEEP: Denies morning headaches, daytime somnolence or napping. Denies difficulty falling asleep, staying asleep, waking from sleep. Denies knowledge of snoring. GASTROINTESTINAL: Denies any type of dysphagia to either liquids or solids. Denies nausea, vomiting, pyrosis, early satiety, abdominal pain, diarrhea, constipation, or changes in stool consistency or caliber. Denies coffee-ground emesis, hematemesis, hematochezia, or melanotic stools. GENITOURINARY: Denies frequency, urgency, nocturia, hematuria or incontinence (Storage/Irritative symptoms.) Low urinary stream, straining to void, urinary intermittency or hesitancy, splitting of the voiding stream, terminal dribbling. ENDOCRINOLOGIC: Denies polyuria, polydipsia, polyphagia or heat/cold intolerances. HEMATOLOGIC: Denies thrombophilia/previous clots, or coagulopathy/bleeding disorders. ONCOLOGIC: Denies personal history of malignancy. DERMATOLOGIC: Denies rashes or pruritus. PSYCHIATRIC: Denies any suicidal or homicidal ideation. Denies hallucinations. PHYSICAL EXAM GENERAL APPEARANCE ill appearing, alert, mildly agitated, in moderate respiratory distress. NEUROLOGICAL: Cranial nerves II-XII grossly intact. Motor is 5/5 in bilateral upper and lower extremities proximal to distal. No sensory deficits. HEENT: Face is symmetric. Pupils are equal and reactive. Extraocular movements are intact. NECK: Supple. No JVD. No thyromegaly. No submental, submandibular, pre- /postauricular, occipital or supraclavicular lymphadenopathy. CHEST: Normal chest expansion. No Telemetry. LUNGS: Expiratory wheeze and diffuse crackles bilaterally CARDIOVASCULAR: Regular. S1 and S2 normal. No appreciable rubs, murmurs or gallops. Tachycardia present ABDOMEN: Soft, nontender, and nondistended. There is no rebound, voluntary guarding, or rigidity. : Deferred. No Ortega. EXTREMITIES: Bilateral 2+ pitting edema, left knee warm swollen, limited ROM and pitting edema more on the left compared to right. SKIN: No skin breakdown. Vital Signs (last 8hr) Date Time Temp Pulse Resp B/P (MAP) Pulse Ox O2 Delivery O2 Flow Rate FiO2 02/28/25 12:00 97.3 102 18 118/50 99 Room Air 02/28/25 08:00 97.5 100 18 115/39 94 Room Air 02/28/25 08:00 94 Nasal Cannula* 2 28 02/28/25 07:32 92 20 N/Cannula Low lpm 1.0 24 02/28/25 07:32 90 20 LABS: Laboratory: Test 02/28/25 11:51 02/28/25 05:20 02/27/25 04:47 Range/Units Whole Blood Glucose 134 H 70-110 MG/DL White Blood Count 11.7 H 4.8-10.8 K/uL Red Blood Count 3.08 L 4.50-6.20 MIL/uL Hemoglobin 9.6 L 14.0-18.0 g/dL Hematocrit 29.8 L 42-54 % Mean Corpuscular Volume 96.8 79-99 fL Mean Corpuscular Hemoglobin 31.2 27.0-33.0 pg Mean Corpuscular Hemoglobin Concent 32.2 32.0-36.0 g/dL Red Cell Distribution Width 17.0 H 11.0-15.5 % Platelet Count 329 130-400 K/uL Mean Platelet Volume 9.1 7.5-10.5 fL Immature Granulocyte % (Auto) 0.6 0-1 % Neutrophils (%) (Auto) 67.9 40.0-77.0 % Lymphocytes (%) (Auto) 20.8 L 21.0-51.0 % Monocytes (%) (Auto) 6.8 3.0-13.0 % Eosinophils (%) (Auto) 2.7 0.0-8.0 % Basophils (%) (Auto) 1.2 0.0-5.0 % Neutrophils # (Auto) 7.9 H 1.8-7.7 K/uL Lymphocytes # (Auto) 2.4 1.0-4.8 K/uL Monocytes # (Auto) 0.8 0.1-1.0 K/uL Eosinophils # (Auto) 0.32 0.00-0.70 K/uL Basophils # (Auto) 0.14 0.00-0.20 K/uL Absolute Immature Granulocyte (auto 0.07 0-1 K/uL Nucleated Red Blood Cells 0.0 0.0-0.19 % Sodium Level 136 136-145 mmol/L Potassium Level 3.3 L 3.5-5.1 mmol/L Chloride Level 98 L 101-111 mmol/L Carbon Dioxide Level 26 21-32 mmol/L Blood Urea Nitrogen 27 H 7-18 mg/dL Creatinine 2.1 H 0.5-1.3 mg/dL Glomerular Filtration Rate Calc 39 >90 mL/min Random Glucose 113 H 70-105 mg/dL Total Calcium 8.8 8.5-10.1 mg/dL Total Bilirubin 0.6 0.2-1.0 mg/dL Aspartate Amino Transf (AST/SGOT) 14 10-37 U/L Alanine Aminotransferase (ALT/SGPT) < 6 L 12-78 U/L Alkaline Phosphatase 84 50-136 U/L B-Type Natriuretic Peptide 1450 H 0-100 pg/mL Total Protein 7.0 6.0-8.3 g/dL Albumin 2.2 L 3.5-5.0 g/dL Magnesium Level 1.80 1.80-2.40 mg/dL Current Medications Medications (Trade) Dose Ordered Sig/Asya Route PRN Reason Start Time Stop Time Status Last Admin Dose Admin Acetaminophen/ Codeine Phosphate (TYLenol-coDEINE (120/12MG 5ML) ELIXIR) 10 ml Q4H PRN PO MODERATE PAIN (4-6) 02/25/25 15:30 02/25/25 15:16 DC Acetaminophen/ Hydrocodone Bitart (NORco 5/325MG) 1 tab Q6H PRN PO MODERATE PAIN (4-6) 02/23/25 23:00 02/28/25 22:59 02/28/25 08:27 1 TAB Albuterol (DUOneb) 1 UDVIAL [id number] IH 02/24/25 00:00 02/24/25 14:15 DC 02/24/25 07:08 1 UDVIAL Alteplase, Recombinant (CathFLO 2MG VIAL) 4 mg ONCE IVCATH 02/25/25 09:30 02/25/25 11:00 DC 02/25/25 10:44 4 MG Aspirin (Aspirin 81mg Ec Tab) 81 mg DAILY PO 02/25/25 09:00 03/27/25 08:59 02/28/25 08:27 81 MG Budesonide (Pulmicort 0.5 Mg/2ml) 0.5 mg BIDRESP IH 02/24/25 18:00 03/26/25 17:59 02/28/25 07:30 0.5 MG Bumetanide 40 ml @ 0 mls/hr AD IV 02/28/25 09:30 03/30/25 09:29 Dexmedetomidine/ Sodium Chloride (PRECEdex 400MCG/ 100ML-NS) 400 mcg PROTOCOL IV 02/24/25 10:30 03/26/25 10:29 Doxycycline Hyclate (Doxycycline Hyclate) 100 mg BID PO 02/24/25 21:00 03/06/25 20:59 02/28/25 08:27 100 MG Folic Acid (FOLic ACID 1 MG TABLET) 1 mg DAILY PO 02/25/25 09:00 02/26/25 07:40 DC 02/25/25 09:07 1 MG Folic Acid (FOLic ACID 1 MG TABLET) 1 mg DAILY PO 02/25/25 09:00 03/27/25 08:59 02/28/25 08:27 1 MG Furosemide (LASix 40MG VIAL) 40 mg Q12H IV 02/24/25 08:30 02/24/25 10:20 DC 02/24/25 09:34 40 MG Furosemide (LASix 40MG VIAL) 40 mg Q8H IV 02/24/25 16:30 02/28/25 09:13 DC 02/28/25 08:26 40 MG Heparin Sodium (Porcine) (HEParin 5,000 UNIT VIAL) 5,000 unit BID SQ 02/24/25 09:00 03/26/25 08:59 02/28/25 08:35 5,000 UNIT Ipratropium [place] (AtrovENT UD) 0.5 MG [id number] IH 02/24/25 14:00 03/26/25 13:59 02/28/25 07:30 0.5 MG Linezolid 300 ml @ 150 mls/hr Q12H IV 02/24/25 11:00 03/06/25 10:59 02/28/25 11:04 150 MLS/HR Magnesium Sulfate 50 ml @ 0 mls/hr PROTOCOL PRN IV low magnesium 02/25/25 11:00 03/27/25 10:59 02/25/25 11:27 25 MLS/HR Melatonin (Melatonin) 10 mg HS PRN PO INSOMNIA 02/24/25 11:00 03/26/25 10:59 02/27/25 22:36 10 MG Metolazone (zarOXOlyn) 5 mg DAILY PO 02/25/25 09:00 03/27/25 08:59 02/28/25 08:27 5 MG Montelukast Sodium (SinguLAIR) 10 mg DAILY PO 02/25/25 09:00 03/27/25 08:59 02/28/25 08:27 10 MG Nystatin (NYSTatin 509633 UNIT/ML 5ML UDCUP) 5 ml QID PO 02/24/25 17:00 03/26/25 16:59 02/28/25 08:27 5 ML Ondansetron HCl (zoFRAN 4MG INJ) 4 mg Q6H PRN IVP NAUSEA/VOMITING 02/24/25 21:00 03/26/25 20:59 Pantoprazole Sodium (PROTonix 40MG INJ) 40 mg DAILY IVP 02/24/25 11:00 03/26/25 10:59 02/28/25 08:25 40 MG Pharmacy Profile Note (Lace Assessment) 1 each AD MISC 02/24/25 10:30 02/24/25 10:32 DC Pharmacy Profile Note (Lace Assessment) 1 each AD MISC 02/25/25 15:30 02/25/25 15:17 DC Pharmacy Profile Note (Pharmacy Communication) 1 each ONCE MISC 02/23/25 23:00 02/23/25 23:48 DC Pharmacy Profile Note (Pharmacy Communication) 1 each ONCE MISC 02/25/25 15:30 02/25/25 15:17 DC Piperacillin Sod/ Tazobactam Sod (Zosyn 3.375gm+NS 50ml) 3.375 gm Q8H IV 02/24/25 05:00 03/06/25 04:59 02/28/25 11:04 3.375 GM Potassium Chloride 100 ml @ 100 mls/hr AD PRN IV POTASSIUM PROTOCOL 02/25/25 11:00 02/27/25 10:47 DC 02/27/25 08:24 100 MLS/HR Potassium Chloride 100 ml @ 100 mls/hr AD PRN IV POTASSIUM PROTOCOL 02/25/25 11:00 03/27/25 10:59 02/27/25 19:38 100 MLS/HR Potassium Chloride (K-Dur 10meq Sr Tab) 10 meq AD PRN PO POTASSIUM PROTOCOL 02/27/25 11:00 03/27/25 10:59 02/28/25 06:46 10 MEQ Potassium Chloride (K-Dur/Klor-Con 20meq) 10 meq AD PRN PO POTASSIUM PROTOCOL 02/25/25 11:00 02/27/25 10:48 DC Potassium Chloride (K-Dur/Klor-Con 20meq) 20 meq DAILY PO 03/01/25 09:00 03/31/25 08:59 Potassium Chloride (KCl 10% Elixir 20meq/15ml) 10 meq AD PRN PO POTASSIUM PROTOCOL 02/25/25 11:00 03/27/25 10:59 Sodium Chloride 1,000 ml @ 75 mls/hr [id number] IV 02/23/25 20:00 02/23/25 23:03 DC 02/23/25 20:08 75 MLS/HR Thiamine HCl (Vitamin B-1) 100 mg DAILY PO 02/25/25 09:00 03/27/25 08:59 02/28/25 08:27 100 MG Vancomycin HCl (Vancomycin Protocol) 1 each AD IV 02/23/25 19:00 02/23/25 19:33 DC DIAGNOSTICS / RADIOLOGY: [ ] PATIENT: ADAM MOE III MR#: [id number] : 1980 SEX: M AGE: 44 LOCATION: [facility] ORDER 2300 STATUS: ADM IN REPORT#: [id number] SERVICE [id number] REASON: Evaluate for pneumonia progress ORDERING PHYSICIAN: ARMANDO OTT MD PROCEDURE: CXR1VW - CHEST 1VW CHEST 1VW HISTORY: Pneumonia COMPARISON: 02/27/2025 FINDINGS: A frontal projection of the chest was obtained. There are bilateral pulmonary infiltrates suggestive of pulmonary vascular congestion with possible superimposed pneumonitis. The heart is borderline enlarged. Degenerative changes are seen. No evidence of aortic calcification is seen. IMPRESSION: 1. Bilateral pulmonary infiltrates are seen suggestive of pulmonary vascular congestion with possible superimposed pneumonitis. Interval worsening is seen. DICTATED BY: CAROL HOWARD MD DATE: 02/28/25934 ELECTRONICALLY SIGNED BY: CAROL HOWARD MD DATE: 02/28/25938 ASSESSMENT: gram positive bacteremia POA Sepsis, POA Pneumonia, POA Acute hypoxic respiratory failure on CPAP, ABG confirms PO2 less than 60 mmHg, POA Acute on chronic diastolic heart failure with exacerbation POA Acute kidney injury stage II, POA Non ST segment elevated NH, most likely type 2 NH secondary to oxygen ischemic POA ITP, POA Uncontrolled diabetes mellitus type 2, POA Diabetic nephropathy, POA Cocaine, alcohol and tobacco use disorder, POA Fidelina esophagitis, POA Matthews's cyst, hematoma, left knee, POA Electrolyte abnormalities, POA Chronic anemia, POA Severe aortic valve insufficiency secondary to infective endocarditis, with large non-coronary cusp vegetation (1.4 cm), EF preserved planned for aortic valve replacement [place] valve infective endocarditis, subacute, gram-positive (Micrococcus) and gram-negative (E. coli, Klebsiella) pathogens, on Zosyn, Linezolid, Doxycycline Bilateral multifocal pneumonia with superimposed pulmonary edema, improving clinically, likely secondary to endocarditis and fluid overload Acute on chronic kidney injury, Hypokalemia Volume overload secondary to congestive heart failure and valvular disease, on diuresis Chronic normocytic anemia, New-onset diabetes mellitus type 2, poorly controlled, monitor glucose closely Electrolyte imbalance hyponatremia, hypokalemia, hypomagnesemia, on repletion protocol Proteinuria with diabetic nephropathy PLAN: Infectious disease: * ontinue Zosyn + Linezolid + Doxycycline pending final culture sensitivities * Repeat blood cultures if febrile or WBC rises ID on board Continue IV linezolid q.12h. Continue Zosyn 3.375 g IV q.8h. Continue IV doxycycline 100 mg b.i.d.. Noted blood cultures and sputum cultures. Pulmonary: Critical Care consult has been placed. Supplemental oxygen support, CPAP support and BiPAP setting as necessary to maintain SpO2 levels greater than 92 Budesonide, albuterol ipratropium nebulizations. Monitor ABGs, O2 sats, chest x-ray. Appreciate Pulmonary and critical Care consult suggestions. * Maintain O? via nasal cannula at 1L/min * Wean off as tolerated * Daily chest physiotherapy; monitor ABG Cardiovascular: Stop LasiX Continue Bumetanide Schedule Left Heart Catheterization JEOVANY ? then Aortic Valve Replacement Daily CXR Close hemodynamic monitoring with hook tender troponin, BNP. Continue telemetry monitoring * Proceed with left heart catheterization ? aortic valve replacement * Monitor troponins and BNP; follow-up Echo post-op Renal/metabolic Monitor CR, BUN, GFR. Avoid nephrotoxins. Monitor glucose, proteinuria. Replete potassium, magnesium, phosphorus. for per facility protocol. * Strict I/Os, daily BMP * Replace K?, Mg? per protocol * Hold nephrotoxic meds PRN GI/nutrition Pantoprazole IV daily. Monitor for GI bleeding. Add thiamine, folate multivitamins if chronic alcohol use. Hematology Monitor platelets for ITP versus reactive thrombocytosis. Consider iron studies, B12, reticulocyte count for anemia. Musculoskeletal: Monitor left knee swelling Avoid NSAIDs due to BRENDAN. Ortho referral if worsening. Sedation/neuro: Precedex for sedation, taper as tolerated. Determine at bedtime for sleep hygiene. ICU delirium prevention with 3 orientation, mobility and lytes during the day. Endocrine: Glucose control with insulin. Monitor for ketones and TKA signs. Consider A1c when stable. Substance use: Assess for withdrawal. [facility] protocol p.r.n. if needed. Offered smoking cessation and substance abuse counseling. * Await left heart catheterization * Cardiothoracic surgery consult completed pending OR schedule for AVR * Plan discharge with home O? evaluation, rehab placement Case management consult has been placed for further discharge planning. ATTESTATION BY PHYSICIAN I have seen and examined the patient. I reviewed the documentation, medical decision making, and treatment plan as noted by the resident above. I agree with the findings and plan of care. Herminio Napoles MD, RAGHAVA R MD Feb 28, 2025 13:06
--- NOTE | 2025-02-28 14:18 | NUR ---
patient being transferred to PCCU, gave report to GRACIE Varghese
[2025-02-28] MEDS: BUMETANIDE 0.25MG/ML 40ML IV SCH (16:09)
--- NOTE | 2025-02-28 17:49 | PN ---
INFECTIOUS DISEASE PROGRESS NOTE Date of Service: Feb 28, 2025 SUBJECTIVE: This is a 44-year-old male patient who was seen and examined at bedside in room 413. Patient is awake, alert and oriented x3. Patient is sitting up on the bedside chair. Patient will be started on Bumex drip and will be transferred to the PCCU. Patient has been evaluated by manager critical care and is scheduled for heart catheterization for tomorrow. Patient is afebrile this morning, temperature is 97.5. The WBC remains at 11.7. Will continue on doxycycline, linezolid and Zosyn IV. We will continue to follow patient's care. PHYSICAL EXAM EYES: Anicteric. Pupils equal and reactive. HENT: No oral thrush seen, moist Oral mucosa NECK: Supple, no JVD or thyromegaly. LUNGS: Good air entry. Oxygen support via nasal cannula. CARDIOVASCULAR: S1, S2 regular. No murmur heard. ABDOMEN: Soft, non tender, bowel sounds present, no organomegaly. CENTRAL NERVOUS SYSTEM: Awake, alert, oriented x 3. SKIN: No rashes, no swelling. Lower extremity edema. LYMPHATICS: No peripheral lymphadenopathy. MUSCULOSKELETAL: No joint swelling, erythema or tenderness. EXTREMITIES: No cyanosis or clubbing. Lower extremities edema. BACK: No deformity, no pressure ulcer. GENITOURINARY: No dysuria or hematuria. Vital Sign (Last 12 Hours) 02/28/25 02/28/25 02/28/25 02/28/25 07:32 07:32 08:00 08:00 Temp 97.5 Pulse 90 92 100 Resp 20 20 18 B/P (MAP) 115/39 Pulse Ox 94 94 O2 Delivery N/Cannula Low lpm Nasal Cannula* Room Air O2 Flow Rate 1.0 2 FiO2 24 28 02/28/25 02/28/25 02/28/25 12:00 14:29 16:00 Temp 97.3 97.3 Pulse 102 89 104 Resp 18 20 20 B/P (MAP) 118/50 114/56 Pulse Ox 99 100 O2 Delivery Room Air Nasal Cannula O2 Flow Rate 2.0 Intake & Output (last 24hrs) 02/27/25 02/27/25 02/28/25 15:00 23:00 07:00 Intake Total 120 ml 120 ml Output Total 650 ml Balance -530 ml 120 ml LABS: Laboratory: Test 02/28/25 16:17 02/28/25 15:55 02/28/25 05:20 02/27/25 04:47 Range/Units Whole Blood Glucose 138 H 70-110 MG/DL Bedside Glucose Comment Notified Nurse Potassium Level 3.2 L 3.5-5.1 mmol/L White Blood Count 11.7 H 4.8-10.8 K/uL Red Blood Count 3.08 L 4.50-6.20 MIL/uL Hemoglobin 9.6 L 14.0-18.0 g/dL Hematocrit 29.8 L 42-54 % Mean Corpuscular Volume 96.8 79-99 fL Mean Corpuscular Hemoglobin 31.2 27.0-33.0 pg Mean Corpuscular Hemoglobin Concent 32.2 32.0-36.0 g/dL Red Cell Distribution Width 17.0 H 11.0-15.5 % Platelet Count 329 130-400 K/uL Mean Platelet Volume 9.1 7.5-10.5 fL Immature Granulocyte % (Auto) 0.6 0-1 % Neutrophils (%) (Auto) 67.9 40.0-77.0 % Lymphocytes (%) (Auto) 20.8 L 21.0-51.0 % Monocytes (%) (Auto) 6.8 3.0-13.0 % Eosinophils (%) (Auto) 2.7 0.0-8.0 % Basophils (%) (Auto) 1.2 0.0-5.0 % Neutrophils # (Auto) 7.9 H 1.8-7.7 K/uL Lymphocytes # (Auto) 2.4 1.0-4.8 K/uL Monocytes # (Auto) 0.8 0.1-1.0 K/uL Eosinophils # (Auto) 0.32 0.00-0.70 K/uL Basophils # (Auto) 0.14 0.00-0.20 K/uL Absolute Immature Granulocyte (auto 0.07 0-1 K/uL Nucleated Red Blood Cells 0.0 0.0-0.19 % Sodium Level 136 136-145 mmol/L Chloride Level 98 L 101-111 mmol/L Carbon Dioxide Level 26 21-32 mmol/L Blood Urea Nitrogen 27 H 7-18 mg/dL Creatinine 2.1 H 0.5-1.3 mg/dL Glomerular Filtration Rate Calc 39 >90 mL/min Random Glucose 113 H 70-105 mg/dL Total Calcium 8.8 8.5-10.1 mg/dL Total Bilirubin 0.6 0.2-1.0 mg/dL Aspartate Amino Transf (AST/SGOT) 14 10-37 U/L Alanine Aminotransferase (ALT/SGPT) < 6 L 12-78 U/L Alkaline Phosphatase 84 50-136 U/L B-Type Natriuretic Peptide 1450 H 0-100 pg/mL Total Protein 7.0 6.0-8.3 g/dL Albumin 2.2 L 3.5-5.0 g/dL Magnesium Level 1.80 1.80-2.40 mg/dL DIAGNOSTICS / RADIOLOGY: PATIENT: ADAM MOE III ACCT: [id number] LOC: [facility] U: [id number] AGE/SX: 44/M ROOM: [facility] RE02/23/[address]: MAHOGANY CARBAJAL MD : 1980 BED: 1 DIS: STATUS: ADM IN TLOC: SPEC: [id number] LEVAR: 02/24/25-1315 STATUS: COMP REQ: [id number] RECD: 02/24/25-[address] [facility] [address]: JO DAVID SOURCE: SPUTUM ENTR: 02/24/25-[address] [facility] [address]: JANUARY CARLSON MD SPDESC: EXPECTO HEIDI LUNDBERG MD, CHRISTIAN E MD SELF,REFERRAL EVANS FLORES MD ORDERED: RESP CULTURE Procedure Result Jose Date-Time -- GRAM STAIN Final 02/25/25-1016 [facility] GRAM STAIN RESULT: FAIR SPECIMEN [ <10 SEC's/LPF AND 10-25 PMN's/LPF ] RARE GRAM NEGATIVE RODS RARE GRAM POSITIVE RODS RESPIRATORY CULTURE Final 02/26/25-905 [facility] COLONY DESCRIPTION: REPORT 1: 1+ GRAM NEGATIVE RODS IDENTIFICATION AND SENSITIVITY TO FOLLOW REPORT 2: NO FURTHER WORK-UP DONE ESCHERICHIA COLI KLEBSIELLA AEROGENES E COLI LUZ [place] M.I.C. RX M.I.C. RX --------- ---- --------- ---- AMPICILLIN >16 R AZTREONAM <=4 S <=4 S CEFAZOLIN >16 R CEFTAZIDIME <=1 S CEFTAZIDIME/AVIBACTAM <=8 S <=8 S CEFTRIAXONE <=1 S GENTAMICIN <=2 S <=2 S LEVOFLOXACIN <=0.5 S <=0.5 S AMPICILLIN/SULBACTAM <=8/4 S MEROPENEM <=1 S <=1 S PIPERACILLIN/TAZOBACTAM <=8 S <=8 S TRIMETHOPRIM/SUFLAMETHOXAZOLE <=2/38 S <=2/38 S PATIENT: PAYAL MASONADAM ACCT: [id number] LOC: [facility] U: [id number] AGE/SX: 44/M ROOM: [facility] RE02/23/[address]: MAHOGANY CARBAJAL MD : 1980 BED: 1 DIS: STATUS: ADM IN TLOC: SPEC: [id number] LEVAR: 02/23/25 STATUS: COMP REQ: [id number] RECD: 02/25/[address]: BIGG TAMAYO SOURCE: BLOOD ENTR: 02/25/[address]: HEBER LEI MD SPDESC: BLOOD SELF,REFERRAL ORDERED: AERO ID & SENS Procedure Result Jose Date-Time AEROBIC ID & SENSITIVITIES Final 02/26/25-711 [facility] COLONY DESCRIPTION: DAY 1: GRAM POSITIVE COCCI IN [facility] BOTTLE IDENTIFICATION TO FOLLOW NO FURTHER WORK-UP DONE COMMENT: NO NCCLS STANDARDS AVAILABLE FOR SENSITIVITY COMMENT: NO FURTHER STUDIES MICROCOCCUS & RELATEDSPECIES Test(s) performed by: [facility] [address] [place] [address] ASSESSMENT: Gram-positive Bacteremia. Aortic valve Endocarditis. Bacterial Pneumonia. Leukocytosis. Acute on chronic diastolic heart failure. Acute on chronic renal failure. Morbid obesity. Hypoxic respiratory failure, requiring oxygen support. Anemia. Hypokalemia. PLAN: Continue linezolid IV. Continue Zosyn IV. Continue doxycycline. Continue diuretics. Continue oxygen support. Continue pain management. Avoid nephrotoxic medications. Cardiology has evaluated patient and scheduled for heart catheterization for tomorrow. This case was reviewed and discussed with my supervising physician and the above assessment and plan was formulated and agreed upon. ATTESTATION BY PHYSICIAN I have seen and examined the patient. I reviewed the documentation, medical decision making, and treatment plan as noted by the mid-level provider above. I agree with the findings and plan of care. JANUARY CARLSON MD, [facility]TA [facility] Feb 28, 2025 17:49
--- NOTE | 2025-02-28 18:59 | HMCIMG ---
PORTABLE CHEST RADIOGRAPH INDICATION: chf COMPARISON: 02/28/2025 at 5:06 PM FINDINGS/IMPRESSION: Unchanged bilateral lung pneumonia.
--- NOTE | 2025-02-28 19:15 | PN ---
[facility] PROGRESS NOTE Date Patient Seen: Feb 28, 2025 Time of Visit: 19:15 Supervising Physician: [Dr. Inman] Primary Care Physician: Self Referral Outpatient Specialists: Inpatient Consults: Dr Dumont PROBLEM LIST: - Acute Hypoxic respiratory failure POA requiring NIV -Acute on chronic diastolic heart failure w/ EF 50-55% on 2 D echo POA - Aortica Valvular vegetation present 1.4cm -Severe Aortic regurgitation Severe multifocal bilateral Bacterial Pneumonia SCAP score 20 Points, sputum culture positive for E coli and Klebsiella -Bilateral Pleural Effusions POA -Acute Cystitis POA -Normocytic anemia -Acute on chronic CKD stage IIIb -Fidelina esophagitis identified on EGD done 01/11/2025 -Bacterial endocarditis affecting the aortic valve (1.81x1.17 cm mass attached to the noncoronary cusp leaflet) identified on DRAKE done 01/11/2025 -Left atrial appendage thrombus identified on DRAKE done 01/11/2025 -Elevated troponin (type II NH) -thrombocytosis -Liver cirrhosis MELD Score 22 Points ( 19.6 % Estimated 3 month Mortality) -cholelithiasis -Esophagitis by EGD 01/11/2025 -CAD s/p PCI with IA Integrilin, aspiration thrombectomy, PTCA, and KISHORE placement (Promus 4.0x16 mm) in the proximal LAD done on 12/19/2015 -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 he is hemodynamically stable with a blood pressure of 125/51, heart rate in the 80s respiratory rate of 24 unlabored saturating 95% on5 L via nasal cannula. Urine output 1.7 L in the last 24 hours. WBCs 16.3 H&H 7.2/31.7 Platelet count of 443 K. chemistry potassium 3.4 chloride of 99 carbon [id number] BUN creatinine 2.1 GFR of 39 glucose 106 lactic acid of 2.8 trending down total calcium 8.4 and albumin of 1.60. Sensitive troponin of 404 with previously be in 258. Respiratory culture growing Gram-negative rods and Gram-positive rods. CV surgeon has been consulted per Cardiology for aortic endocarditis severe aortic regurgitation. We will continue to follow cardiology recommendations and for now patient may downgrade from ICU. 02/28 Patient's repeat echocardiogram shows persistent aortic valvular mass. His sputum culture positive for E coli and Klebsiella. Labs show improved WBC. Patient to continue on IV antibiotics per ID recommendations. He will undergo LHC with possible PCI today per cardiology and plan for aortic valve replacement per CTS afterwards once stabilized. He is now weaned off to room air. REVIEW OF SYSTEMS: 12 point ROS reviewed with patient. Pertinent positives mentioned above. Otherwise negative. PHYSICAL EXAM: GENERAL: alert, weak, awake oriented x 3 HEENT: EOMI, Sclera non icteric, moist mucosa NECK: Supple, no JVD, trachea midline LUNGS: Crackles breath sounds bilaterally. No wheezes HEART: Regular rate and rhythm. Normal S1 and S2, without murmurs ABD: Obese Abdomen soft, nontender. Bowel sounds present EXT: No clubbing cyanosis or edema NEURO: Alert and oriented to person, follows commands Vital Signs (last 8hr) Date Time Temp Pulse Resp B/P (MAP) Pulse Ox O2 Delivery O2 Flow Rate FiO2 02/28/25 16:00 97.3 104 20 114/56 100 Nasal Cannula 2.0 02/28/25 14:29 89 20 02/28/25 12:00 97.3 102 18 118/50 99 Room Air LABS: Hematology Labs: Test 02/28/25 05:20 Range/Units White Blood Count 11.7 H 4.8-10.8 K/uL Red Blood Count 3.08 L 4.50-6.20 MIL/uL Hemoglobin 9.6 L 14.0-18.0 g/dL Hematocrit 29.8 L 42-54 % Mean Corpuscular Volume 96.8 79-99 fL Mean Corpuscular Hemoglobin 31.2 27.0-33.0 pg Mean Corpuscular Hemoglobin Concent 32.2 32.0-36.0 g/dL Red Cell Distribution Width 17.0 H 11.0-15.5 % Platelet Count 329 130-400 K/uL Mean Platelet Volume 9.1 7.5-10.5 fL Immature Granulocyte % (Auto) 0.6 0-1 % Neutrophils (%) (Auto) 67.9 40.0-77.0 % Lymphocytes (%) (Auto) 20.8 L 21.0-51.0 % Monocytes (%) (Auto) 6.8 3.0-13.0 % Eosinophils (%) (Auto) 2.7 0.0-8.0 % Basophils (%) (Auto) 1.2 0.0-5.0 % Neutrophils # (Auto) 7.9 H 1.8-7.7 K/uL Lymphocytes # (Auto) 2.4 1.0-4.8 K/uL Monocytes # (Auto) 0.8 0.1-1.0 K/uL Eosinophils # (Auto) 0.32 0.00-0.70 K/uL Basophils # (Auto) 0.14 0.00-0.20 K/uL Absolute Immature Granulocyte (auto 0.07 0-1 K/uL Nucleated Red Blood Cells 0.0 0.0-0.19 % Chemistry Labs: Test 02/28/25 16:17 02/28/25 15:55 02/28/25 05:20 02/27/25 04:47 Range/Units Whole Blood Glucose 138 H 70-110 MG/DL Bedside Glucose Comment Notified Nurse Potassium Level 3.2 L 3.5-5.1 mmol/L Sodium Level 136 136-145 mmol/L Chloride Level 98 L 101-111 mmol/L Carbon Dioxide Level 26 21-32 mmol/L Blood Urea Nitrogen 27 H 7-18 mg/dL Creatinine 2.1 H 0.5-1.3 mg/dL Glomerular Filtration Rate Calc 39 >90 mL/min Random Glucose 113 H 70-105 mg/dL Total Calcium 8.8 8.5-10.1 mg/dL Total Bilirubin 0.6 0.2-1.0 mg/dL Aspartate Amino Transf (AST/SGOT) 14 10-37 U/L Alanine Aminotransferase (ALT/SGPT) < 6 L 12-78 U/L Alkaline Phosphatase 84 50-136 U/L B-Type Natriuretic Peptide 1450 H 0-100 pg/mL Total Protein 7.0 6.0-8.3 g/dL Albumin 2.2 L 3.5-5.0 g/dL Magnesium Level 1.80 1.80-2.40 mg/dL DIAGNOSTICS / RADIOLOGY RESULTS: [ ] PLAN [facility] today, follow post op cardio rec CTS for AVR once cleared by cardiology Continue IV antibiotics per ID recommendations Continue activity titrate FiO2 as tolerated Maintain adequate oxygenation Keep O2 sats greater equal to 90% Aspiration precaution Rest of the care per primary team NEURO: Minimize central acting medications as possible. Maintain fall precautions, adequate lighting during the day PULMONARY: Supplemental 02 as needed. Maintain aspiration precautions at all times CARDIOVASCULAR: Follow hemodynamics. Vital signs per facility protocol GI & NUTRITION: Continue with nutritional support. Continue stool softeners and laxatives as needed. KIDNEYS & ELECTROLYTES: Strict monitoring of intake, output and overall fluid balance. Avoid nephrotoxic medications to the extent possible. Medications to be dosed according to renal function. Monitor electrolytes and replace as needed ENDOCRINE: Maintain blood glucose between 100-180 at all times. Hypoglycemia protocol in place INFECTIOUS DISEASE: Trend temperature, WBC and procalcitonin level Follow cultures, deescalate antibiotics as soon as possible. Panculture if new onset fever ONCOLOGY/HEMATOLOGY/COAGULATION: Monitor for s/s of bleeding Monitor hemoglobin, coagulation studies as needed SKIN: Pressure ulcer prevention per facility protocol Specialty mattress ORTHO/REHAB: Continue PT/OT Prophylaxis: Continue GI and DVT prophylaxis Code Status: Full Resuscitation Disposition: Per primary team Other: Case discussed with supervising physician plan of care agreed upon KIT RETANA Feb 28, 2025 19:15
[2025-03-01] VITALS (18 sets, daily range): BP systolic 112–138; BP diastolic 50–72; PULSE 57–106; RESP 18–22; TEMP 97.3–98.3; O2SAT 96–100
[2025-03-01] MEDS: HYDROcodone/APAP 5/325 1 TAB TABLET PO PRN (00:15)
[2025-03-01 05:03] LABS: BASOPHILS # (AUTO) 0.11 K/uL (0.00-0.20); EOSINOPHILS # (AUTO) 0.33 K/uL (0.00-0.70); EOSINOPHILS % (AUTO) 3.1 % (0.0-8.0); HEMATOCRIT 29.1 % (42-54); IMMATURE GRANULOCYTE ABSOLUTE 0.03 K/uL (0-1); LYMPHOCYTES # (AUTO) 2.5 K/uL (1.0-4.8); LYMPHOCYTES % (AUTO) 23.8 % (21.0-51.0); MEAN CORPUSCULAR HEMOGLOBIN 31.3 pg (27.0-33.0); MEAN CORPUSCULAR HGB CONC 32.6 g/dL (32.0-36.0); MEAN CORPUSCULAR VOLUME 95.7 fL (79-99); MONOCYTES # (AUTO) 0.8 K/uL (0.1-1.0); MONOCYTES % (AUTO) 7.5 % (3.0-13.0); NEUTROPHILS # (AUTO) 6.7 K/uL (1.8-7.7); NEUTROPHILS % (AUTO) 64.3 % (40.0-77.0); PLATELET COUNT (AUTO) 294 K/uL (130-400); RED BLOOD CELL COUNT(AUTO) 3.04 MIL/uL (4.50-6.20); RED CELL DISTRIBUTION WIDTH 17.1 % (11.0-15.5); WHITE BLOOD COUNT (AUTO) 10.5 K/uL (4.8-10.8)
[2025-03-01 05:18] LABS: ALBUMIN 2.2 g/dL (3.5-5.0); ASPARTATE AMINOTRANSFERASE 13 U/L (10-37); BILIRUBIN,TOTAL 0.6 mg/dL (0.2-1.0); CARBON DIOXIDE 26 mmol/L (21-32); CHLORIDE 98 mmol/L (101-111); CREATININE 2.2 mg/dL (0.5-1.3); GLOMERULAR FILTR. RATE CALC 37 mL/min (>90); GLUCOSE,RANDOM 112 mg/dL (70-105); POTASSIUM 3.4 mmol/L (3.5-5.1); SODIUM SERUM 138 mmol/L (136-145); TOTAL PROTEIN, SERUM 6.8 g/dL (6.0-8.3); UREA NITROGEN, BLOOD 29 mg/dL (7-18)
[2025-03-01 05:20] LABS: ALANINE AMINOTRANSFERASE < 6 U/L (12-78)
--- NOTE | 2025-03-01 08:09 | EKG ---
[facility] Test Date: 2025-03-01 Test Time: 06:01:32 Pat Name: ADAM MOE Department: [facility] Room: 202 Gender: M Supervisor Transcribing Operators: RHEA : 1980 Requested By: MAHOGANY CARBAJAL Order Number: [id number] Reading MD: Ernesto Soto Measurements Intervals [place] Rate: 100 P: 26 SC: 178 QRS: 39 QRSD: 107 T: 215 QT: 351 QTc: 453 Interpretive Statements Sinus tachycardia Incomplete left bundle branch block Compared to ECG 02/23/2025 18:34:31 Left bundle-branch block now present Early repolarization no longer present Possible ischemia no longer present Electronically Signed On 03-08-2025 07:22:29 CDT by Ernesto Soto Please click the below link to view image of tracing.
--- NOTE | 2025-03-01 08:32 | PN ---
[facility] CARDIOLOGY PROGRESS NOTE Date Patient Seen: Mar 01, 2025 Time of Visit: 08:30 Interval History: [Cr uptrending. CXR with no improvement after starting bumex gtt. Aware of CV surgery recommendations, and due to the patients history of CAD he will undergo coronary angiogra with possible PCI , and the patient will proceed with surgery in the upcoming days after the left heart catheterization has been performed Physical Examination: GENERAL: [No acute distress.] HEAD: [Normal with no signs of head trauma.] EYES: [PERRLA, EOMI, conjunctiva and sclera normal.] ENT: [Hearing grossly intact, normal oropharynx.] NECK: [Supple without JVD. There is no tenderness, lymphadenopathy, or masses. No thyromegaly. Normal carotid upstrokes without bruits.] LUNGS: [Clear breath sounds bilaterally. There are right basilar rales one third of the way up the chest. No wheezes, or rhonchi.] HEART: [Normal rate and rhythm. diastolic murmur.] VASC: [Peripheral pulses +2 bilaterally.] ABD: [Bowel sounds normal, soft, nontender, no masses, no organomegaly. No audible bruits.] NEURO: [Awake, alert, and oriented x3. No focal sensory or strength deficits noted.] Laboratory: [ ] Hematology Labs: Test 03/01/25 04:45 Range/Units White Blood Count 10.5 4.8-10.8 K/uL Red Blood Count 3.04 L 4.50-6.20 MIL/uL Hemoglobin 9.5 L 14.0-18.0 g/dL Hematocrit 29.1 L 42-54 % Mean Corpuscular Volume 95.7 79-99 fL Mean Corpuscular Hemoglobin 31.3 27.0-33.0 pg Mean Corpuscular Hemoglobin Concent 32.6 32.0-36.0 g/dL Red Cell Distribution Width 17.1 H 11.0-15.5 % Platelet Count 294 130-400 K/uL Mean Platelet Volume 9.3 7.5-10.5 fL Immature Granulocyte % (Auto) 0.3 0-1 % Neutrophils (%) (Auto) 64.3 40.0-77.0 % Lymphocytes (%) (Auto) 23.8 21.0-51.0 % Monocytes (%) (Auto) 7.5 3.0-13.0 % Eosinophils (%) (Auto) 3.1 0.0-8.0 % Basophils (%) (Auto) 1.0 0.0-5.0 % Neutrophils # (Auto) 6.7 1.8-7.7 K/uL Lymphocytes # (Auto) 2.5 1.0-4.8 K/uL Monocytes # (Auto) 0.8 0.1-1.0 K/uL Eosinophils # (Auto) 0.33 0.00-0.70 K/uL Basophils # (Auto) 0.11 0.00-0.20 K/uL Absolute Immature Granulocyte (auto 0.03 0-1 K/uL Nucleated Red Blood Cells 0.0 0.0-0.19 % Chemistry Labs: Test 03/01/25 06:35 03/01/25 04:45 02/28/25 16:17 02/28/25 05:20 Range/Units Whole Blood Glucose 116 H 70-110 MG/DL Sodium Level 138 136-145 mmol/L Potassium Level 3.4 L 3.5-5.1 mmol/L Chloride Level 98 L 101-111 mmol/L Carbon Dioxide Level 26 21-32 mmol/L Blood Urea Nitrogen 29 H 7-18 mg/dL Creatinine 2.2 H 0.5-1.3 mg/dL Glomerular Filtration Rate Calc 37 >90 mL/min Random Glucose 112 H 70-105 mg/dL Total Calcium 8.7 8.5-10.1 mg/dL Total Bilirubin 0.6 0.2-1.0 mg/dL Aspartate Amino Transf (AST/SGOT) 13 10-37 U/L Alanine Aminotransferase (ALT/SGPT) < 6 L 12-78 U/L Alkaline Phosphatase 82 50-136 U/L Total Protein 6.8 6.0-8.3 g/dL Albumin 2.2 L 3.5-5.0 g/dL Bedside Glucose Comment Notified Nurse B-Type Natriuretic Peptide 1450 H 0-100 pg/mL Diagnostics / Radiology: [Copy/Paste Echos/Imaging Report here] Impression and Plan: [-severe AI, secondary to endocarditis -2D echo on 02/24, EF 60-65%, demonstrating with severe AI, 1.4 cm aortic leaflet vegetation -Acute on chronic diastolic heart failure -PNA -UTI -Normocytic anemia -Acute on chronic CKD stage IIIb, baseline creatinine of 2 -Fidelina esophagitis identified on EGD done 01/11/2025 -Bacterial endocarditis affecting the aortic valve (1.81x1.17 cm mass attached to the noncoronary cusp leaflet) identified on DRAKE done 01/11/2025 -Lactic acidosis, improving -Left atrial appendage thrombus identified on DRAKE done 01/11/2025, not currently an anticoagulation due to thrombocytopenia -Normal LV systolic function (LVEF: 60-65% by echo done 01/11/2025) -Elevated troponin (type II MT), peaking in the 400s -History of ITP in 12/2024 -Liver cirrhosis -Esophagitis by EGD 01/11/2025 -CAD s/p PCI with IA Integrilin, aspiration thrombectomy, PTCA, and KISHORE placement (Promus 4.0x16 mm) in the proximal LAD done on 12/19/2015 -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 Troponins have been elevated in the 200-400 range. Aware of CV surgery recommendations, and due to the patients history of CAD he will undergo coronary angiogram with possible PCI , Al risks ( , MT,stroke , bleeding ) and goals were discussed with the patient , which verbalized understanding and consents to move forward with the procedure The patient will proceed with surgery in the upcoming days after the left heart catheterization has been performed May need angiography with a small dose of contrast prior to valve surgery, and at the risk of septic embolization. I will discuss with Dr Soto about performing left heart catheterization in the morning. Thank you for this consult cardiology will continue to follow along] EVANS FLORES MD Mar 01, 2025 08:32
[2025-03-01] MEDS ORDERED: HEParin-NS 1,000 UNIT/500 ML 1,000 ML IV ONE (11:25)
[2025-03-01] MEDS ORDERED: LIDOCAINE HCL 400MG/20ML VIAL ONE (11:26)
[2025-03-01] MEDS ORDERED: NITROGLYCERIN 50MG VIAL ONE (11:27)
[2025-03-01] MEDS ORDERED: HEParin 10,000 UNIT/10ML (1,000 UNIT/ML) VIAL ONE (11:27)
[2025-03-01] MEDS ORDERED: IOHEXOL 350 MG/ML 100ML INFUS..BTL IV ONE (11:30)
[2025-03-01] MEDS ORDERED: VERAPAMIL HCL 2.5 MG/ML VIAL ONE (11:40)
[2025-03-01] MEDS ORDERED: MIDAZOLAM HCL 1 MG/ML 2ML VIAL ONE (12:02)
[2025-03-01] MEDS ORDERED: FENTanyl CITRate PF 50 MCG/1 ML 2ML VIAL ONE (12:02)
--- NOTE | 2025-03-01 12:04 | PN ---
[facility] PROGRESS NOTE Date Patient Seen: Mar 01, 2025 Time of Visit: 12:04 Supervising Physician: [Dr. Inman] Primary Care Physician: Self Referral Outpatient Specialists: Inpatient Consults: Dr Dumont PROBLEM LIST: - Acute Hypoxic respiratory failure POA requiring NIV -Acute on chronic diastolic heart failure w/ EF 50-55% on 2 D echo POA - Aortica Valvular vegetation present 1.4cm -Severe Aortic regurgitation Severe multifocal bilateral Bacterial Pneumonia SCAP score 20 Points, sputum culture positive for E coli and Klebsiella -Bilateral Pleural Effusions POA -Acute Cystitis POA -Normocytic anemia -Acute on chronic CKD stage IIIb -Fidelina esophagitis identified on EGD done 01/11/2025 -Bacterial endocarditis affecting the aortic valve (1.81x1.17 cm mass attached to the noncoronary cusp leaflet) identified on DRAKE done 01/11/2025 -Left atrial appendage thrombus identified on DRAKE done 01/11/2025 -Elevated troponin (type II MS) -thrombocytosis -Liver cirrhosis MELD Score 22 Points ( 19.6 % Estimated 3 month Mortality) -cholelithiasis -Esophagitis by EGD 01/11/2025 -CAD s/p PCI with IA Integrilin, aspiration thrombectomy, PTCA, and KISHORE placement (Promus 4.0x16 mm) in the proximal LAD done on 12/19/2015 -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 he is hemodynamically stable with a blood pressure of 125/51, heart rate in the 80s respiratory rate of 24 unlabored saturating 95% on5 L via nasal cannula. Urine output 1.7 L in the last 24 hours. WBCs 16.3 H&H 7.2/31.7 Platelet count of 443 K. chemistry potassium 3.4 chloride of 99 carbon BUN creatinine 2.1 GFR of 39 glucose 106 lactic acid of 2.8 trending down total calcium 8.4 and albumin of 1.60. Sensitive troponin of 404 with previously be in 258. Respiratory culture growing Gram-negative rods and Gram-positive rods. CV surgeon has been consulted per Cardiology for aortic endocarditis severe aortic regurgitation. We will continue to follow cardiology recommendations and for now patient may downgrade from ICU. 02/28 Patient's repeat echocardiogram shows persistent aortic valvular mass. His sputum culture positive for E coli and Klebsiella. Labs show improved WBC. Patient to continue on IV antibiotics per ID recommendations. He will undergo LHC with possible PCI today per cardiology and plan for aortic valve replacement per CTS afterwards once stabilized. He is now weaned off to room air. 03/01 Vitals are reviewed and within normal limits, T-max 97.3. Patient continues with significant swelling, currently on Bumex drip and metolazone. Has 300ml of urine output overnight. Continues on antibiotics for E coli and Klebsiella on sputum culture. Patient's LHC was postponed yesterday due to scheduling conflict, is pending for today with Dr. Kameron Hilario. REVIEW OF SYSTEMS: 12 point ROS reviewed with patient. Pertinent positives mentioned above. Otherw ise negative. PHYSICAL EXAM: GENERAL: alert, weak, awake oriented x 3 HEENT: EOMI, Sclera non icteric, moist mucosa NECK: Supple, no JVD, trachea midline LUNGS: Crackles breath sounds bilaterally. No wheezes HEART: Regular rate and rhythm. Normal S1 and S2, without murmurs ABD: Obese Abdomen soft, nontender. Bowel sounds present EXT: No clubbing cyanosis or edema NEURO: Alert and oriented to person, follows commands Vital Signs (last 8hr) Date Time Temp Pulse Resp B/P (MAP) Pulse Ox O2 Delivery O2 Flow Rate FiO2 03/01/25 11:00 97.5 100 18 112/52 98 Room Air 03/01/25 08:00 100 Nasal Cannula* 2 28 03/01/25 07:05 92 20 N/Cannula Low lpm 1.0 24 03/01/25 07:04 94 20 03/01/25 07:00 97.7 102 22 125/50 100 Nasal Cannula 2.0 LABS: Hematology Labs: Test 03/01/25 04:45 Range/Units White Blood Count 10.5 4.8-10.8 K/uL Red Blood Count 3.04 L 4.50-6.20 MIL/uL Hemoglobin 9.5 L 14.0-18.0 g/dL Hematocrit 29.1 L 42-54 % Mean Corpuscular Volume 95.7 79-99 fL Mean Corpuscular Hemoglobin 31.3 27.0-33.0 pg Mean Corpuscular Hemoglobin Concent 32.6 32.0-36.0 g/dL Red Cell Distribution Width 17.1 H 11.0-15.5 % Platelet Count 294 130-400 K/uL Mean Platelet Volume 9.3 7.5-10.5 fL Immature Granulocyte % (Auto) 0.3 0-1 % Neutrophils (%) (Auto) 64.3 40.0-77.0 % Lymphocytes (%) (Auto) 23.8 21.0-51.0 % Monocytes (%) (Auto) 7.5 3.0-13.0 % Eosinophils (%) (Auto) 3.1 0.0-8.0 % Basophils (%) (Auto) 1.0 0.0-5.0 % Neutrophils # (Auto) 6.7 1.8-7.7 K/uL Lymphocytes # (Auto) 2.5 1.0-4.8 K/uL Monocytes # (Auto) 0.8 0.1-1.0 K/uL Eosinophils # (Auto) 0.33 0.00-0.70 K/uL Basophils # (Auto) 0.11 0.00-0.20 K/uL Absolute Immature Granulocyte (auto 0.03 0-1 K/uL Nucleated Red Blood Cells 0.0 0.0-0.19 % Chemistry Labs: Test 03/01/25 06:35 03/01/25 04:45 02/28/25 16:17 02/28/25 05:20 Range/Units Whole Blood Glucose 116 H 70-110 MG/DL Sodium Level 138 136-145 mmol/L Potassium Level 3.4 L 3.5-5.1 mmol/L Chloride Level 98 L 101-111 mmol/L Carbon Dioxide Level 26 21-32 mmol/L Blood Urea Nitrogen 29 H 7-18 mg/dL Creatinine 2.2 H 0.5-1.3 mg/dL Glomerular Filtration Rate Calc 37 >90 mL/min Random Glucose 112 H 70-105 mg/dL Total Calcium 8.7 8.5-10.1 mg/dL Total Bilirubin 0.6 0.2-1.0 mg/dL Aspartate Amino Transf (AST/SGOT) 13 10-37 U/L Alanine Aminotransferase (ALT/SGPT) < 6 L 12-78 U/L Alkaline Phosphatase 82 50-136 U/L Total Protein 6.8 6.0-8.3 g/dL Albumin 2.2 L 3.5-5.0 g/dL Bedside Glucose Comment Notified Nurse B-Type Natriuretic Peptide 1450 H 0-100 pg/mL DIAGNOSTICS / RADIOLOGY RESULTS: [ ] PLAN [facility] today, follow post op cardio rec CTS for AVR once cleared by cardiology Stop IVF Continue diuresis with bumex gtt and metolazone Repeat ABG and CXR in AM Continue IV antibiotics per ID recommendations Continue activity titrate FiO2 as tolerated Maintain adequate oxygenation Keep O2 sats greater equal to 90% Aspiration precaution Rest of the care per primary team NEURO: Minimize central acting medications as possible. Maintain fall precautions, adequate lighting during the day PULMONARY: Supplemental 02 as needed. Maintain aspiration precautions at all times CARDIOVASCULAR: Follow hemodynamics. Vital signs per facility protocol GI & NUTRITION: Continue with nutritional support. Continue stool softeners and laxatives as needed. KIDNEYS & ELECTROLYTES: Strict monitoring of intake, output and overall fluid balance. Avoid nephrotoxic medications to the extent possible. Medications to be dosed according to renal function. Monitor electrolytes and replace as needed ENDOCRINE: Maintain blood glucose between 100-180 at all times. Hypoglycemia protocol in place INFECTIOUS DISEASE: Trend temperature, WBC and procalcitonin level Follow cultures, deescalate antibiotics as soon as possible. Panculture if new onset fever ONCOLOGY/HEMATOLOGY/COAGULATION: Monitor for s/s of bleeding Monitor hemoglobin, coagulation studies as needed SKIN: Pressure ulcer prevention per facility protocol Specialty mattress ORTHO/REHAB: Continue PT/OT Prophylaxis: Continue GI and DVT prophylaxis Code Status: Full Resuscitation Disposition: Per primary team Other: Case discussed with supervising physician plan of care agreed upon Time spent on care including review of chart, discussion of plan with patient and discussion with nursing staff exceeds 45 minutes. This does not include any billable procedures performed. KIT RETANA Mar 01, 2025 12:04
[2025-03-01] MEDS ORDERED: GLUCAGON 1MG KIT 1 MG ML IM PRN (13:00)
[2025-03-01] MEDS ORDERED: DEXTROSE 50%-WATER 50 ML DISP.SYRIN IV PRN (13:00)
--- NOTE | 2025-03-01 13:02 | PRN ---
PROCEDURE REPORT DATE OF PROCEDURE: Mar 01, 2025 SENIOR [employer] TECHNICIAN: [ Kameron corona MD] PROCEDURE PERFORMED: Conscious sedation Ultrasound guided right radial artery access Selective left coronary artery angiogram Selective right coronary artery angiogram TR band 13 wesley over right radial artery INDICATION: Severe aortic regurgitation DESCRIPTION OF PROCEDURE: After informed consent was obtained, the patient was prepped and draped in the usual sterile fashion. A 6 [place] arterial sheath was inserted in the right radial artery using ultrasound guidance with first pass wall puncture. The arterial sheath was aspirated and flushed. A 6 [place] JL 3.5 was then advanced to the ascending aorta over an exchange length J-tip guidewire, was aspirated and flushed, and was used for selective coronary angiograms in multiple obliquities. A JR-4 was advanced in a similar fashion to the ascending aorta over the J-tipped guidewire and was used for selective right coronary angiograms in multiple oblique views with findings as outlined below. A TR band was placed over right radial artery. FLUOROSCOPY TIME: 4.6 min CORONARY ANGIOGRAM: LEFT MAIN: Patent and 0% stenosis. Gives rise to LCx and LAD. LEFT ANTERIOR DESCENDING: Large vessel giving rise to two Diagonal branches. There is 20-30% proximal LAD stenosis just after the first septal artery with NOAH 3 flow with a patent proximal stent. LEFT CIRCUMFLEX: Large and gives rise to two OM branches. Luminal irregularities. OMs are patent RIGHT CORONARY ARTERY: Large, dominant vessel with anterior take off giving rise to PDA and PL branches. 20-30% proximal and distal stenosis HEMOSTASIS: TR band 12 wesley over right radial artery INTERVENTIONS: None. COMPLICATIONS: None FINDINGS: Normal coronary anatomy and mild non-obstructive CAD. ESTIMATED BLOOD LOSS: 5 cc RECOMMENDATIONS/INSTRUCTIONS: Aggressive risk factor modification. Proceed with AVR for severe symptomatic AR CONTRAST DELIVERED TO PATIENT (mL): 130cc MD SANDRA Rojas JAMES R MD Mar 01, 2025 13:02
[2025-03-01] MEDS: 0.9%NACL 1000ML 1,000 ML IV SCH (14:50)
[2025-03-01] MEDS: PoTASSium chloRIDE 20MEQ ER 20 MEQ ERTAB PO SCH (14:50)
--- NOTE | 2025-03-01 15:09 | NUR ---
1115: TAKEN TO [employer] VIA BED BY TORO [employer] RN. 1340: BACK FROM [employer], S/P SELECTIVE CARDIAC ANGIOGRAM BY DR. FLORES. RIGHT RADIAL 6FR SLENDER SHEATH/VASCULAR BAND WITH 7 MLS OF AIR. RIGHT RADIAL PULSE STRONG, O2 SAT 99%, RIGHT HAND COOL TO TOUCH, CAPILLARY REFILL 3-4 SECONDS. WILL CONTINUE TO MONITOR. INFORMED ABOUT BEDREST FOR 1 HOUR. VERBALIZED UNDERSTANDING. 1430: OUT OF BED TO BATHROOM, STEADY GAIT. 1445: INITIATED REMOVAL OF 2 MLS OF AIR FROM RIGHT RADIAL VASCULAR BAND Q 15 MINUTES. WILL CONTINUE TO MONITOR.
--- NOTE | 2025-03-01 15:40 | PN ---
INFECTIOUS DISEASE PROGRESS NOTE Date of Service: Mar 01, 2025 SUBJECTIVE: This is a 44-year-old male patient who was seen and examined at bedside in room 227. Patient is awake, alert and oriented x 3. Patient is status post heart catheterization with findings of mild nonobstructive CAD and recommendations to proceed with the aortic valve replacement. Patient is currently on Bumex drip. No fever, temperature is 97.5 and the WBC has trended down to 10.5. Will continue on doxycycline, linezolid and Zosyn IV. We will continue to monitor patient. PHYSICAL EXAM EYES: Anicteric. Pupils equal and reactive. HENT: No oral thrush seen, moist Oral mucosa. NECK: Supple, no JVD or thyromegaly. LUNGS: Oxygen support via nasal cannula. CARDIOVASCULAR: S1, S2 regular. No murmur heard. ABDOMEN: Soft, non tender, bowel sounds present, no organomegaly. CENTRAL NERVOUS SYSTEM: Awake, alert, oriented x 3. SKIN: No rashes, no swelling. Lower extremity edema. LYMPHATICS: No peripheral lymphadenopathy. MUSCULOSKELETAL: No joint swelling, erythema or tenderness. EXTREMITIES: No cyanosis or clubbing. Lower extremities edema. BACK: No deformity, no pressure ulcer. GENITOURINARY: No dysuria or hematuria. Vital Sign (Last 12 Hours) 03/01/25 03/01/25 03/01/25 03/01/25 04:00 07:00 07:04 07:05 Temp 98.2 97.7 Pulse 98 102 94 92 Resp 18 22 20 20 B/P (MAP) 127/72 125/50 Pulse Ox 97 100 O2 Delivery Nasal Cannula Nasal Cannula N/Cannula Low lpm O2 Flow Rate 2.0 2.0 1.0 FiO2 24 03/01/25 03/01/25 03/01/25 08:00 11:00 13:40 Temp 97.5 97.3 Pulse 100 57 Resp 18 22 B/P (MAP) 112/52 123/57 Pulse Ox 100 98 100 O2 Delivery Nasal Cannula* Room Air Room Air O2 Flow Rate 2 FiO2 28 Intake & Output (last 24hrs) 02/28/25 02/28/25 03/01/25 15:00 23:00 07:00 Intake Total 50.0 ml 512.0 ml Output Total 500 ml Balance 50.0 ml 12.0 ml LABS: Laboratory: Test 03/01/25 06:35 03/01/25 04:45 02/28/25 16:17 02/28/25 05:20 Range/Units Whole Blood Glucose 116 H 70-110 MG/DL White Blood Count 10.5 4.8-10.8 K/uL Red Blood Count 3.04 L 4.50-6.20 MIL/uL Hemoglobin 9.5 L 14.0-18.0 g/dL Hematocrit 29.1 L 42-54 % Mean Corpuscular Volume 95.7 79-99 fL Mean Corpuscular Hemoglobin 31.3 27.0-33.0 pg Mean Corpuscular Hemoglobin Concent 32.6 32.0-36.0 g/dL Red Cell Distribution Width 17.1 H 11.0-15.5 % Platelet Count 294 130-400 K/uL Mean Platelet Volume 9.3 7.5-10.5 fL Immature Granulocyte % (Auto) 0.3 0-1 % Neutrophils (%) (Auto) 64.3 40.0-77.0 % Lymphocytes (%) (Auto) 23.8 21.0-51.0 % Monocytes (%) (Auto) 7.5 3.0-13.0 % Eosinophils (%) (Auto) 3.1 0.0-8.0 % Basophils (%) (Auto) 1.0 0.0-5.0 % Neutrophils # (Auto) 6.7 1.8-7.7 K/uL Lymphocytes # (Auto) 2.5 1.0-4.8 K/uL Monocytes # (Auto) 0.8 0.1-1.0 K/uL Eosinophils # (Auto) 0.33 0.00-0.70 K/uL Basophils # (Auto) 0.11 0.00-0.20 K/uL Absolute Immature Granulocyte (auto 0.03 0-1 K/uL Nucleated Red Blood Cells 0.0 0.0-0.19 % Sodium Level 138 136-145 mmol/L Potassium Level 3.4 L 3.5-5.1 mmol/L Chloride Level 98 L 101-111 mmol/L Carbon Dioxide Level 26 21-32 mmol/L Blood Urea Nitrogen 29 H 7-18 mg/dL Creatinine 2.2 H 0.5-1.3 mg/dL Glomerular Filtration Rate Calc 37 >90 mL/min Random Glucose 112 H 70-105 mg/dL Total Calcium 8.7 8.5-10.1 mg/dL Total Bilirubin 0.6 0.2-1.0 mg/dL Aspartate Amino Transf (AST/SGOT) 13 10-37 U/L Alanine Aminotransferase (ALT/SGPT) < 6 L 12-78 U/L Alkaline Phosphatase 82 50-136 U/L Total Protein 6.8 6.0-8.3 g/dL Albumin 2.2 L 3.5-5.0 g/dL Bedside Glucose Comment Notified Nurse B-Type Natriuretic Peptide 1450 H 0-100 pg/mL ASSESSMENT: Gram-positive Bacteremia. Aortic valve Endocarditis with aortic insufficiency, s/p heart catheterization.. Bacterial Pneumonia. Leukocytosis, resolving. Acute on chronic diastolic heart failure. Acute on chronic renal failure. Morbid obesity. Hypoxic respiratory failure, requiring oxygen support. Anemia. Hypokalemia. PLAN: Continue linezolid IV. Continue Zosyn IV. Continue doxycycline. Continue diuretics. Continue oxygen support. Continue pain management. Avoid nephrotoxic medications. Cardiology has evaluated patient and scheduled for heart catheterization for tomorrow. This case was reviewed and discussed with my supervising physician and the above assessment and plan was formulated and agreed upon. ATTESTATION BY PHYSICIAN I have seen and examined the patient. I reviewed the documentation, medical decision making, and treatment plan as noted by the mid-level provider above. I agree with the findings and plan of care. JANUARY CARLSON MD, [facility]TA [facility] Mar 01, 2025 15:40
--- NOTE | 2025-03-01 15:50 | NUR ---
1545: REMOVED RIGHT RADIAL SHEATH/VASCULAR BAND. RIGHT RADIAL PULSE STRONG. RIGHT HAND/FINGERS CONTINUES COOL TO TOUCH, MOVES ALL FINGERS, O2 SAT 98-99%. WILL CONTINUE TO MONITOR.
--- NOTE | 2025-03-01 16:33 | PN ---
[facility] PROGRESS NOTE Date of Service: Mar 01, 2025 Time of Service: 16:28 SUBJECTIVE: [ HPI : 54-year-old male with a complex medical history including recent hospitalization with a Gram-positive bacteremia secondary to Staph aureus, severe sepsis and endocarditis with echogenic vegetations on noncoronary cusps and right coronary cusp as well as left atrial appendage clot on January 11, 2025 presented to the ED days history of worsening shortness of breath. He was discharged on January 31, 2025 with long-term IV linezolid via PICC line for infective endocarditis. Since 3 days he reports progressive dyspnea, worsened acutely today. He denies chest pain but notes fatigue and exertional intolerance. There is no reported fever or chills. He was in mild respiratory distress on arrival. Notably has a past medical history of Fidelina esophagitis, uncontrolled diabetes mellitus type 2 BRENDAN, immune thrombocytopenic purpura, UTI Klebsiella and substance abuse with cocaine alcohol and tobacco. So on physical examination he is positive for shortness of breaths and cough no hemoptysis. His lungs have expiratory wheezes and diffuse crackling bilaterally. He is tachycardic with regular rhythm. His WBC count is at 18, hemoglobin at 10.5 and platelet count at 470 K with leukocytosis chronic anemia and thrombocytosis, chemistry is with creatinine showing 2.2, BUN at and CO2 at 18.2 magnesium low consistent with BRENDAN, electrolyte derangements. His arterial blood gas analysis reveals a pH of 7.469, PaCO2 of 26, PO2 of 54.6, HC03 of 18.2 and saturation of 90.2 Representing acute hypoxic respiratory failure with respiratory alkalosis. Serum lactate is elevated at 3.6 persistent lactic acidosis. BNP is at 2410 suggesting cardiac strain or volume overload. And troponin is elevated at [address] segment elevated CT. and urine analysis positive concerning for UTI and nephropathy due to positive hyaline casts. Chest x-ray reveals diffuse bilateral opacities consistent with pneumonia and chest CT scan reveals bilateral pleural effusion bilateral ground-glass pulmonary infiltrates are seen renal ultrasound reveals no hydronephrosis. And a CT scan also revealed gallstone. Echo is ordered to assess vegetations, LA clot and EF. Lower extremity Doppler revealed no DVT, Matthews's cyst versus hematoma in the left knee. EGD from prior history Fidelina esophagitis. The patient is admitted to ICU with the critical Care and Cardiology and Infectious Disease consult has been placed for further management currently on Precedex drip and CPAP setting with tidal volume of 657 and a rate of 36 and PIP of15 and ve of 23.2. Furosemide 40 q.12h is added in addition to his antibiotics monitoring the patient closely and discuss the goal of care with the patient and he agreed upon with it. 02/25/2025. Patient seen and examined along with RN. Feels better , breathing has improved. Continues to be on IV Lasix and metolazone was added. Cardiology and critical Care on board CT surgery was consulted for severe aortic regurgitation.] 02/26/25 review small battery plate assembler's note in detail. CT surgery was consulted regarding to his severe AI. Patient continues with diuretics in IV antibiotics. No fevers denies chest pain. 02/27/25 44-year-old male with a complex medical history including infective endocard itis, severe aortic insufficiency, CHF, BRENDAN, diabetic nephropathy, bilateral pneumonia, and recent gram-negative sepsis, is clinically improving. The patient reports that shortness of breath has been improving slowly over the past 48 hours. He currently denies chest pain, fever, or chills. He is tolerating medications and oral intake well. He remains on low-flow oxygen at 1L via nasal cannula, saturating well at 98%, ambulating to the chair with mild fatigue but no acute respiratory distress. No complaints of palpitations or dizziness. He is aware of the upcoming left heart catheterization and understands the indication for aortic valve replacement surgery. No family was present during bedside examination WBC: 11.7 (? from 13.2) improving leukocytosis February 28 2025 44-year-old male with severe gambell aortic valve insufficiency, bacterial endocarditis, and worsening pulmonary congestion, was upgraded to PCCU today due to clinical and radiographic deterioration. He remains dyspneic and hypoxic despite low-flow oxygen support. He reports difficulty breathing, especially in the supine position, and has been unable to tolerate lying flat due to severe orthopnea. He feels increasingly fatigued, lightheaded, and weak. Denies chest pain, fevers, chills, or palpitations. He is aware of his pending left heart catheterization and the need for aortic valve replacement surgery and verbalizes continued understanding and consent March 01 2025 The patient was examined at bedside this morning. He remains alert and oriented, and in no acute distress while sitting up. He reports increased shortness of breath when lying back or attempting to sleep supine, consistent with severe orthopnea, though otherwise states that he is feeling okay. He is NPO for the planned left heart catheterization scheduled for today as part of the workup for severe gambell aortic insufficiency with large vegetation and worsening decompensated heart failure. He has no new complaints of chest pain, fever, chills, nausea, or dizziness. He verbalizes understanding of the planned cardiac intervention and its associated risks, including contrast use, bleeding, arrhythmia, and need for surgical valve replacement afterward. REVIEW OF SYSTEMS CONSTITUTIONAL: Positive for fatigue, mild subjective fever. NEUROLOGICAL: Denies headache, amaurosis fugax, motor weakness, sensory deficit, vertigo/spinning sensation, gait abnormalities, or tremors. ENT: No hearing loss, otalgia, otorrhea, rhinitis, rhinorrhea, hoarseness, or sore throat. CARDIOVASCULAR: Palpitations, no angina. PULMONARY: Shortness of breath, cough, no hemoptysis. SLEEP: Denies morning headaches, daytime somnolence or napping. Denies difficulty falling asleep, staying asleep, waking from sleep. Denies knowledge of snoring. GASTROINTESTINAL: Denies any type of dysphagia to either liquids or solids. Denies nausea, vomiting, pyrosis, early satiety, abdominal pain, diarrhea, cons tipation, or changes in stool consistency or caliber. Denies coffee-ground emesis, hematemesis, hematochezia, or melanotic stools. GENITOURINARY: Denies frequency, urgency, nocturia, hematuria or incontinence (Storage/Irritative symptoms.) Low urinary stream, straining to void, urinary intermittency or hesitancy, splitting of the voiding stream, terminal dribbling. ENDOCRINOLOGIC: Denies polyuria, polydipsia, polyphagia or heat/cold intolerances. HEMATOLOGIC: Denies thrombophilia/previous clots, or coagulopathy/bleeding disorders. ONCOLOGIC: Denies personal history of malignancy. DERMATOLOGIC: Denies rashes or pruritus. PSYCHIATRIC: Denies any suicidal or homicidal ideation. Denies hallucinations. PHYSICAL EXAM GENERAL APPEARANCE ill appearing, alert, mildly agitated, in moderate respiratory distress. NEUROLOGICAL: Cranial nerves II-XII grossly intact. Motor is 5/5 in bilateral upper and lower extremities proximal to distal. No sensory deficits. HEENT: Face is symmetric. Pupils are equal and reactive. Extraocular movements are intact. NECK: Supple. No JVD. No thyromegaly. No submental, submandibular, pre- /postauricular, occipital or supraclavicular lymphadenopathy. CHEST: Normal chest expansion. No Telemetry. LUNGS: Expiratory wheeze and diffuse crackles bilaterally CARDIOVASCULAR: Regular. S1 and S2 normal. No appreciable rubs, murmurs or gallops. Tachycardia present ABDOMEN: Soft, nontender, and nondistended. There is no rebound, voluntary guarding, or rigidity. : Deferred. No Ortega. EXTREMITIES: Bilateral 2+ pitting edema, left knee warm swollen, limited ROM and pitting edema more on the left compared to right. SKIN: No skin breakdown. Vital Signs (last 8hr) Date Time Temp Pulse Resp B/P (MAP) Pulse Ox O2 Delivery O2 Flow Rate FiO2 03/01/25 15:40 97.3 105 18 115/63 99 Room Air 03/01/25 15:10 103 121/51 98 Room Air 03/01/25 14:40 105 130/57 98 Room Air 03/01/25 14:25 104 127/62 98 Room Air 03/01/25 14:10 102 126/63 92 Room Air 03/01/25 13:55 105 127/66 98 Room Air 03/01/25 13:40 97.3 57 22 123/57 100 Room Air 03/01/25 11:00 97.5 100 18 112/52 98 Room Air LABS: Laboratory: Test 03/01/25 06:35 03/01/25 04:45 02/28/25 16:17 02/28/25 05:20 Range/Units Whole Blood Glucose 116 H 70-110 MG/DL White Blood Count 10.5 4.8-10.8 K/uL Red Blood Count 3.04 L 4.50-6.20 MIL/uL Hemoglobin 9.5 L 14.0-18.0 g/dL Hematocrit 29.1 L 42-54 % Mean Corpuscular Volume 95.7 79-99 fL Mean Corpuscular Hemoglobin 31.3 27.0-33.0 pg Mean Corpuscular Hemoglobin Concent 32.6 32.0-36.0 g/dL Red Cell Distribution Width 17.1 H 11.0-15.5 % Platelet Count 294 130-400 K/uL Mean Platelet Volume 9.3 7.5-10.5 fL Immature Granulocyte % (Auto) 0.3 0-1 % Neutrophils (%) (Auto) 64.3 40.0-77.0 % Lymphocytes (%) (Auto) 23.8 21.0-51.0 % Monocytes (%) (Auto) 7.5 3.0-13.0 % Eosinophils (%) (Auto) 3.1 0.0-8.0 % Basophils (%) (Auto) 1.0 0.0-5.0 % Neutrophils # (Auto) 6.7 1.8-7.7 K/uL Lymphocytes # (Auto) 2.5 1.0-4.8 K/uL Monocytes # (Auto) 0.8 0.1-1.0 K/uL Eosinophils # (Auto) 0.33 0.00-0.70 K/uL Basophils # (Auto) 0.11 0.00-0.20 K/uL Absolute Immature Granulocyte (auto 0.03 0-1 K/uL Nucleated Red Blood Cells 0.0 0.0-0.19 % Sodium Level 138 136-145 mmol/L Potassium Level 3.4 L 3.5-5.1 mmol/L Chloride Level 98 L 101-111 mmol/L Carbon Dioxide Level 26 21-32 mmol/L Blood Urea Nitrogen 29 H 7-18 mg/dL Creatinine 2.2 H 0.5-1.3 mg/dL Glomerular Filtration Rate Calc 37 >90 mL/min Random Glucose 112 H 70-105 mg/dL Total Calcium 8.7 8.5-10.1 mg/dL Total Bilirubin 0.6 0.2-1.0 mg/dL Aspartate Amino Transf (AST/SGOT) 13 10-37 U/L Alanine Aminotransferase (ALT/SGPT) < 6 L 12-78 U/L Alkaline Phosphatase 82 50-136 U/L Total Protein 6.8 6.0-8.3 g/dL Albumin 2.2 L 3.5-5.0 g/dL Bedside Glucose Comment Notified Nurse B-Type Natriuretic Peptide 1450 H 0-100 pg/mL Current Medications Medications (Trade) Dose Ordered Sig/Asya Route PRN Reason Start Time Stop Time Status Last Admin Dose Admin Acetaminophen/ Codeine Phosphate (TYLenol-coDEINE (120/12MG 5ML) ELIXIR) 10 ml Q4H PRN PO MODERATE PAIN (4-6) 02/25/25 15:30 02/25/25 15:16 DC Acetaminophen/ Hydrocodone Bitart (NORco 5/325MG) 1 tab Q6H PRN PO MODERATE PAIN (4-6) 02/23/25 23:00 02/28/25 22:59 DC 02/28/25 08:27 1 TAB Acetaminophen/ Hydrocodone Bitart (NORco 5/325MG) 1 tab Q6H PRN PO MODERATE PAIN (4-6) 03/01/25 00:30 03/06/25 00:29 03/01/25 00:15 1 TAB Albuterol (DUOneb) 1 UDVIAL N8NALNT IH 02/24/25 00:00 02/24/25 14:15 DC 02/24/25 07:08 1 UDVIAL Alteplase, Recombinant (CathFLO 2MG VIAL) 4 mg ONCE IVCATH 02/25/25 09:30 02/25/25 11:00 DC 02/25/25 10:44 4 MG Aspirin (Aspirin 81mg Ec Tab) 81 mg DAILY PO 02/25/25 09:00 03/27/25 08:59 03/01/25 14:50 81 MG Budesonide (Pulmicort 0.5 Mg/2ml) 0.5 mg BIDRESP IH 02/24/25 18:00 03/26/25 17:59 03/01/25 07:03 0.5 MG Bumetanide 40 ml @ 0 mls/hr AD IV 02/28/25 09:30 03/30/25 09:29 02/28/25 16:09 1 MLS/HR Dexmedetomidine/ Sodium Chloride (PRECEdex 400MCG/ 100ML-NS) 400 mcg PROTOCOL IV 02/24/25 10:30 03/26/25 10:29 Dextrose (D50w) 50 ml AD PRN IV HYPOGLYCEMIA PROTOCOL 03/01/25 13:00 03/31/25 12:59 Doxycycline Hyclate (Doxycycline Hyclate) 100 mg BID PO 02/24/25 21:00 03/06/25 20:59 03/01/25 14:49 100 MG Folic Acid (FOLic ACID 1 MG TABLET) 1 mg DAILY PO 02/25/25 09:00 02/26/25 07:40 DC 02/25/25 09:07 1 MG Folic Acid (FOLic ACID 1 MG TABLET) 1 mg DAILY PO 02/25/25 09:00 03/27/25 08:59 03/01/25 14:49 1 MG Furosemide (LASix 40MG VIAL) 40 mg Q12H IV 02/24/25 08:30 02/24/25 10:20 DC 02/24/25 09:34 40 MG Furosemide (LASix 40MG VIAL) 40 mg Q8H IV 02/24/25 16:30 02/28/25 09:13 DC 02/28/25 08:26 40 MG Glucagon (Glucagon 1mg Kit) 1 mg AD PRN IM HYPOGLYCEMIA PROTOCOL 03/01/25 13:00 03/31/25 12:59 Heparin Sodium (Porcine) (HEParin 5,000 UNIT VIAL) 5,000 unit BID SQ 02/24/25 09:00 03/26/25 08:59 02/28/25 21:34 5,000 UNIT Ipratropium [place] (AtrovENT UD) 0.5 MG H2DPYEE IH 02/24/25 14:00 03/26/25 13:59 03/01/25 07:03 0.5 MG Linezolid 300 ml @ 150 mls/hr Q12H IV 02/24/25 11:00 03/06/25 10:59 03/01/25 14:48 150 MLS/HR Magnesium Sulfate 50 ml @ 0 mls/hr PROTOCOL PRN IV low magnesium 02/25/25 11:00 03/27/25 10:59 02/25/25 11:27 25 MLS/HR Melatonin (Melatonin) 10 mg HS PRN PO INSOMNIA 02/24/25 11:00 03/26/25 10:59 03/01/25 00:15 10 MG Metolazone (zarOXOlyn) 5 mg DAILY PO 02/25/25 09:00 03/27/25 08:59 03/01/25 14:49 5 MG Montelukast Sodium (SinguLAIR) 10 mg DAILY PO 02/25/25 09:00 03/27/25 08:59 03/01/25 14:49 10 MG Nystatin (NYSTatin 489952 UNIT/ML 5ML UDCUP) 5 ml QID PO 02/24/25 17:00 03/26/25 16:59 03/01/25 14:48 5 ML Ondansetron HCl (zoFRAN 4MG INJ) 4 mg Q6H PRN IVP NAUSEA/VOMITING 02/24/25 21:00 03/26/25 20:59 Pantoprazole Sodium (PROTonix 40MG INJ) 40 mg DAILY IVP 02/24/25 11:00 03/26/25 10:59 03/01/25 14:48 40 MG Pharmacy Profile Note (Lace Assessment) 1 each AD MISC 02/24/25 10:30 02/24/25 10:32 DC Pharmacy Profile Note (Lace Assessment) 1 each AD MISC 02/25/25 15:30 02/25/25 15:17 DC Pharmacy Profile Note (Pharmacy Communication) 1 each ONCE MISC 02/23/25 23:00 02/23/25 23:48 DC Pharmacy Profile Note (Pharmacy Communication) 1 each ONCE MISC 02/25/25 15:30 02/25/25 15:17 DC Piperacillin Sod/ Tazobactam Sod (Zosyn 3.375gm+NS 50ml) 3.375 gm Q8H IV 02/24/25 05:00 03/06/25 04:59 03/01/25 05:38 3.375 GM Potassium Chloride 100 ml @ 100 mls/hr AD PRN IV POTASSIUM PROTOCOL 02/25/25 11:00 02/27/25 10:47 DC 02/27/25 08:24 100 MLS/HR Potassium Chloride 100 ml @ 100 mls/hr AD PRN IV POTASSIUM PROTOCOL 02/25/25 11:00 03/27/25 10:59 02/27/25 19:38 100 MLS/HR Potassium Chloride (K-Dur 10meq Sr Tab) 10 meq AD PRN PO POTASSIUM PROTOCOL 02/27/25 11:00 03/27/25 10:59 03/01/25 05:39 10 MEQ Potassium Chloride (K-Dur/Klor-Con 20meq) 10 meq AD PRN PO POTASSIUM PROTOCOL 02/25/25 11:00 02/27/25 10:48 DC Potassium Chloride (K-Dur/Klor-Con 20meq) 20 meq DAILY PO 03/01/25 09:00 03/31/25 08:59 03/01/25 14:50 20 MEQ Potassium Chloride (KCl 10% Elixir 20meq/15ml) 10 meq AD PRN PO POTASSIUM PROTOCOL 02/25/25 11:00 03/27/25 10:59 Sodium Chloride 1,000 ml @ 75 mls/hr [id number] IV 02/23/25 20:00 02/23/25 23:03 DC 02/23/25 20:08 75 MLS/HR Sodium Chloride 1,000 ml @ 150 mls/hr Q6H40M IV 03/01/25 13:00 03/01/25 15:37 DC 03/01/25 14:50 150 MLS/HR Thiamine HCl (Vitamin B-1) 100 mg DAILY PO 02/25/25 09:00 03/27/25 08:59 03/01/25 14:50 100 MG Vancomycin HCl (Vancomycin Protocol) 1 each AD IV 02/23/25 19:00 02/23/25 19:33 DC DIAGNOSTICS / RADIOLOGY: [ ] PATIENT: ADAM MOE III MR#: [id number] : 1980 SEX: M AGE: 44 LOCATION: [facility] ORDER 31 STATUS: ADM IN REPORT#: [id number] SERVICE 30 REASON: chf ORDERING PHYSICIAN: EVANS FLORES MD PROCEDURE: CXR1VW - CHEST 1VW PORTABLE CHEST RADIOGRAPH INDICATION: chf COMPARISON: 02/28/2025 at 5:06 PM FINDINGS/IMPRESSION: Unchanged bilateral lung pneumonia. DICTATED BY: KIARA PETERSON MD DATE: 02/28/251855 ELECTRONICALLY SIGNED BY: KIARA PETERSON MD DATE: 02/28/251858 ASSESSMENT: gram positive bacteremia POA Sepsis, POA Pneumonia, POA Acute hypoxic respiratory failure on CPAP, ABG confirms PO2 less than 60 mmHg, POA Acute on chronic diastolic heart failure with exacerbation POA Acute kidney injury stage II, POA Non ST segment elevated CT, most likely type 2 CT secondary to oxygen ischemic POA ITP, POA Uncontrolled diabetes mellitus type 2, POA Diabetic nephropathy, POA Cocaine, alcohol and tobacco use disorder, POA Fidelina esophagitis, POA Matthews's cyst, hematoma, left knee, POA Electrolyte abnormalities, POA Chronic anemia, POA Severe aortic valve insufficiency secondary to infective endocarditis, with large non-coronary cusp vegetation (1.4 cm), EF preserved planned for aortic valve replacement Nikolai valve infective endocarditis, subacute, gram-positive (Micrococcus) and gram-negative (E. coli, Klebsiella) pathogens, on Zosyn, Linezolid, Doxycycline Bilateral multifocal pneumonia with superimposed pulmonary edema, improving clinically, likely secondary to endocarditis and fluid overload Acute on chronic kidney injury, Hypokalemia Volume overload secondary to congestive heart failure and valvular disease, on diuresis Chronic normocytic anemia, New-onset diabetes mellitus type 2, poorly controlled, monitor glucose closely Electrolyte imbalance hyponatremia, hypokalemia, hypomagnesemia, on repletion protocol Proteinuria with diabetic nephropathy PLAN: Infectious disease: * Continue Zosyn + Linezolid + Doxycycline pending final culture sensitivities * Repeat blood cultures if febrile or WBC rises ID on board Continue IV linezolid q.12h. Continue Zosyn 3.375 g IV q.8h. Continue IV doxycycline 100 mg b.i.d.. Noted blood cultures and sputum cultures. Pulmonary: Critical Care consult has been placed. Supplemental oxygen support, CPAP support and BiPAP setting as necessary to maintain SpO2 levels greater than 92 Budesonide, albuterol ipratropium nebulizations. Monitor ABGs, O2 sats, chest x-ray. Appreciate Pulmonary and critical Care consult suggestions. * Maintain O? via nasal cannula at 1L/min * Wean off as tolerated * Daily chest physiotherapy; monitor ABG Cardiovascular: Stop LasiX Continue Bumetanide Schedule Left Heart Catheterization JEOVANY ? then Aortic Valve Replacement Daily CXR Close hemodynamic monitoring with design engineering technician troponin, BNP. Continue telemetry monitoring * Proceed with left heart catheterization ? aortic valve replacement * Monitor troponins and BNP; follow-up Echo post-op Renal/metabolic Monitor CR, BUN, GFR. Avoid nephrotoxins. Monitor glucose, proteinuria. Replete potassium, magnesium, phosphorus. for per facility protocol. * Strict I/Os, daily BMP * Replace K?, Mg? per protocol * Hold nephrotoxic meds PRN GI/nutrition Pantoprazole IV daily. Monitor for GI bleeding. Add thiamine, folate multivitamins if chronic alcohol use. Hematology Monitor platelets for ITP versus reactive thrombocytosis. Consider iron studies, B12, reticulocyte count for anemia. Musculoskeletal: Monitor left knee swelling Avoid NSAIDs due to BRENDAN. Ortho referral if worsening. Sedation/neuro: Precedex for sedation, taper as tolerated. Determine at bedtime for sleep hygiene. ICU delirium prevention with 3 orientation, mobility and lytes during the day. Endocrine: Glucose control with insulin. Monitor for ketones and TKA signs. Consider A1c when stable. Substance use: Assess for withdrawal. [facility] protocol p.r.n. if needed. Offered smoking cessation and substance abuse counseling. * Await left heart catheterization * Cardiothoracic surgery consult completed pending OR schedule for AVR * Plan discharge with home O? evaluation, rehab placement Case management consult has been placed for further discharge planning. ATTESTATION BY PHYSICIAN I have seen and examined the patient. I reviewed the documentation, medical decision making, and treatment plan as noted by the resident . I agree with the findings and plan of care. Herminio Napoles MD, RAGHAVA R MD Mar 01, 2025 16:33
--- NOTE | 2025-03-01 17:20 | HMCIMG ---
CHEST 1VW HISTORY: CHF COMPARISON: 2024 FINDINGS: A frontal projection of the chest was obtained. There are bilateral pulmonary infiltrates suggestive of pulmonary vascular congestion with possible superimposed pneumonitis. The heart is borderline enlarged. Degenerative changes are seen. No evidence of aortic calcification is seen. IMPRESSION: 1. Bilateral pulmonary infiltrates are seen suggestive of pulmonary vascular congestion with possible superimposed pneumonitis.
--- NOTE | 2025-03-01 17:30 | NUR ---
RIGHT HAND WARM TO TOUCH, RADIAL PULSE STRONG. WILL CONTINUE TO MONITOR.
[2025-03-01] MEDS: ondanSETRON 4MG INJ IVP PRN (20:25)
[2025-03-01] MEDS ORDERED: ceFAZolin SODIUM 2 GM VIAL IVP SCH (23:00)
[2025-03-02] VITALS (28 sets, daily range): BP systolic 90–164; BP diastolic 44–87; PULSE 91–124; RESP 8–32; TEMP 97.5–98.1; O2SAT 96–100
[2025-03-02 03:24] LABS: BASOPHILS # (AUTO) 0.07 K/uL (0.00-0.20); BASOPHILS % (AUTO) 0.6 % (0.0-5.0); EOSINOPHILS # (AUTO) 0.29 K/uL (0.00-0.70); EOSINOPHILS % (AUTO) 2.7 % (0.0-8.0); HEMATOCRIT 27.3 % (42-54); IMMATURE GRANULOCYTE ABSOLUTE 0.02 K/uL (0-1); LYMPHOCYTES # (AUTO) 2.5 K/uL (1.0-4.8); MEAN CORPUSCULAR HEMOGLOBIN 31.8 pg (27.0-33.0); MEAN CORPUSCULAR HGB CONC 33.7 g/dL (32.0-36.0); MEAN CORPUSCULAR VOLUME 94.5 fL (79-99); MONOCYTES # (AUTO) 0.7 K/uL (0.1-1.0); MONOCYTES % (AUTO) 6.5 % (3.0-13.0); NEUTROPHILS # (AUTO) 7.3 K/uL (1.8-7.7); PLATELET COUNT (AUTO) 261 K/uL (130-400); RED BLOOD CELL COUNT(AUTO) 2.89 MIL/uL (4.50-6.20); RED CELL DISTRIBUTION WIDTH 16.9 % (11.0-15.5); WHITE BLOOD COUNT (AUTO) 10.8 K/uL (4.8-10.8)
[2025-03-02 03:33] LABS: HEMOGLOBIN A1C 5.5 % (4.0-6.0)
[2025-03-02 03:34] LABS: CARBON DIOXIDE 26 mmol/L (21-32); CHLORIDE 96 mmol/L (101-111); CREATININE 2.1 mg/dL (0.5-1.3); GLOMERULAR FILTR. RATE CALC 39 mL/min (>90); GLUCOSE,RANDOM 135 mg/dL (70-105); POTASSIUM 3.3 mmol/L (3.5-5.1); SODIUM SERUM 137 mmol/L (136-145); UREA NITROGEN, BLOOD 29 mg/dL (7-18)
[2025-03-02 03:39] LABS: ALBUMIN 2.2 g/dL (3.5-5.0); ASPARTATE AMINOTRANSFERASE 11 U/L (10-37); BILIRUBIN,TOTAL 0.6 mg/dL (0.2-1.0); CHOLESTEROL 136 mg/dL (<200); HDL CHOLESTEROL 40 mg/dL (29-71); LDL DIRECT 80 mg/dL (0-99); TOTAL PROTEIN, SERUM 6.7 g/dL (6.0-8.3); TRIGLYCERIDES 137 mg/dL (30-200)
[2025-03-02 03:46] LABS: B-TYPE NATRIURETIC PEPTIDE 1420 pg/mL (0-100)
[2025-03-02 03:47] LABS: INR 1.15 (0.85-1.15)
[2025-03-02 03:48] LABS: PARTIAL THROMBOPLASTIN TIME 30.1 SEC (26.3-35.5)
[2025-03-02 03:54] LABS: ALANINE AMINOTRANSFERASE < 6 U/L (12-78)
[2025-03-02 04:45] LABS: ABG BASE EXCESS 1.6 mmol/L (-2.0-3.0); ABG HCO3 24.7 mmol/L (21.0-28.0); ABG OXYGEN SATURATION 97.1 % (94.0-98.0); ABG PCO2 34 mmHg (35-48); ABG PH 7.475 (7.350-7.450); DEVICE COMMENT RB RN MARIA; PO2, ARTERIAL BG 85.5 mmHg (83.0-108.0); VENT MODE, BG NC (ROOM AIR)
--- NOTE | 2025-03-02 06:38 | EKG ---
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
[2025-03-02] MEDS ORDERED: aminoCAProic ACID 5,000MG VIAL 15,000 MG in 0.9% NACL 500ML IV.SOLN 420 ML IV PRN (08:30)
[2025-03-02] MEDS ORDERED: EPINEPHrine PF 1MG (1:1,000) 10 MG in 0.9% NACL 250ML 240 ML IV PRN ×2 (08:30→15:00)
[2025-03-02] MEDS ORDERED: NOREPINEPHRIN 8MG/250ML NS 250 ML IV PRN (08:30)
--- NOTE | 2025-03-02 11:49 | PN ---
[facility] PROGRESS NOTE Date Patient Seen: Mar 02, 2025 Time of Visit: 11:42 Supervising Physician: [Dr. Inman] Primary Care Physician: Self Referral Outpatient Specialists: Inpatient Consults: Dr Dumont PROBLEM LIST: - Acute Hypoxic respiratory failure POA requiring NIV -Acute on chronic diastolic heart failure w/ EF 50-55% on 2 D echo POA - Aortica Valvular vegetation present 1.4cm -Severe Aortic regurgitation Severe multifocal bilateral Bacterial Pneumonia SCAP score 20 Points, sputum culture positive for E coli and Klebsiella -Bilateral Pleural Effusions POA -Acute Cystitis POA -Normocytic anemia -Acute on chronic CKD stage IIIb -Fidelina esophagitis identified on EGD done 01/11/2025 -Bacterial endocarditis affecting the aortic valve (1.81x1.17 cm mass attached to the noncoronary cusp leaflet) identified on DRAKE done 01/11/2025 -Left atrial appendage thrombus identified on DRAKE done 01/11/2025 -Elevated troponin (type II FL) -thrombocytosis -Liver cirrhosis MELD Score 22 Points ( 19.6 % Estimated 3 month Mortality) -cholelithiasis -Esophagitis by EGD 01/11/2025 -CAD s/p PCI with IA Integrilin, aspiration thrombectomy, PTCA, and KISHORE placement (Promus 4.0x16 mm) in the proximal LAD done on 12/19/2015 -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 he is hemodynamically stable with a blood pressure of 125/51, heart rate in the 80s respiratory rate of 24 unlabored saturating 95% on5 L via nasal cannula. Urine output 1.7 L in the last 24 hours. WBCs 16.3 H&H 7.2/31.7 Platelet count of 443 K. chemistry potassium 3.4 chloride of 99 carbon [id number] BUN creatinine 2.1 GFR of 39 glucose 106 lactic acid of 2.8 trending down total calcium 8.4 and albumin of 1.60. Sensitive troponin of 404 with previously be in 258. Respiratory culture growing Gram-negative rods and Gram-positive rods. CV surgeon has been consulted per Cardiology for aortic endocarditis severe aortic regurgitation. We will continue to follow cardiology recommendations and for now patient may downgrade from ICU. 02/28 Patient's repeat echocardiogram shows persistent aortic valvular mass. His sputum culture positive for E coli and Klebsiella. Labs show improved WBC. Patient to continue on IV antibiotics per ID recommendations. He will undergo LHC with possible PCI today per cardiology and plan for aortic valve replacement per CTS afterwards once stabilized. He is now weaned off to room air. 03/01 Vitals are reviewed and within normal limits, T-max 97.3. Patient continues with significant swelling, currently on Bumex drip and metolazone. Has 300ml of urine output overnight. Continues on antibiotics for E coli and Klebsiella on sputum culture. Patient's LHC was postponed yesterday due to scheduling conflict, is pending for today with Dr. Kameron Hilario. 03/02 patient is status post LHC yesterday by Dr. Hilario with findings of normal coronary anatomy and mild non-obstructive CAD. Vitals reviewed and within normal limits with T-max 97.9. He continues on supplemental oxygen with 2 L NC. CBC is grossly unremarkable. CMP shows persistently elevated creatinine at 2.1, relatively unchanged. Continues on bumex drip, has 800ml of urine output overnight. His ABG this morning shows borderline respiratory alkalosis. Blood cultures remain negative, sputum culture positive. Continues on antibiotics per ID. He is pending AVR this AM. REVIEW OF SYSTEMS: 12 point ROS reviewed with patient. Pertinent positives mentioned above. Otherwise negative. PHYSICAL EXAM: GENERAL: alert, weak, awake oriented x 3 HEENT: EOMI, Sclera non icteric, moist mucosa NECK: Supple, no JVD, trachea midline LUNGS: Crackles breath sounds bilaterally. No wheezes HEART: Regular rate and rhythm. Normal S1 and S2, without murmurs ABD: Obese Abdomen soft, nontender. Bowel sounds present EXT: No clubbing cyanosis or edema NEURO: Alert and oriented to person, follows commands Vital Signs (last 8hr) Date Time Temp Pulse Resp B/P (MAP) Pulse Ox O2 Delivery O2 Flow Rate FiO2 03/02/25 07:45 97.9 95 18 119/55 96 Nasal Cannula 2.0 03/02/25 03:56 97.5 94 21 131/44 98 Nasal Cannula 2.0 LABS: Hematology Labs: Test 03/02/25 03:12 Range/Units White Blood Count 10.8 4.8-10.8 K/uL Red Blood Count 2.89 L 4.50-6.20 MIL/uL Hemoglobin 9.2 L 14.0-18.0 g/dL Hematocrit 27.3 L 42-54 % Mean Corpuscular Volume 94.5 79-99 fL Mean Corpuscular Hemoglobin 31.8 27.0-33.0 pg Mean Corpuscular Hemoglobin Concent 33.7 32.0-36.0 g/dL Red Cell Distribution Width 16.9 H 11.0-15.5 % Platelet Count 261 130-400 K/uL Mean Platelet Volume 9.3 7.5-10.5 fL Immature Granulocyte % (Auto) 0.2 0-1 % Neutrophils (%) (Auto) 67.0 40.0-77.0 % Lymphocytes (%) (Auto) 23.0 21.0-51.0 % Monocytes (%) (Auto) 6.5 3.0-13.0 % Eosinophils (%) (Auto) 2.7 0.0-8.0 % Basophils (%) (Auto) 0.6 0.0-5.0 % Neutrophils # (Auto) 7.3 1.8-7.7 K/uL Lymphocytes # (Auto) 2.5 1.0-4.8 K/uL Monocytes # (Auto) 0.7 0.1-1.0 K/uL Eosinophils # (Auto) 0.29 0.00-0.70 K/uL Basophils # (Auto) 0.07 0.00-0.20 K/uL Absolute Immature Granulocyte (auto 0.02 0-1 K/uL Nucleated Red Blood Cells 0.0 0.0-0.19 % Chemistry Labs: Test 03/02/25 05:00 03/02/25 03:12 02/28/25 16:17 Range/Units Whole Blood Glucose 118 H 70-110 MG/DL Sodium Level 137 136-145 mmol/L Potassium Level 3.3 L 3.5-5.1 mmol/L Chloride Level 96 L 101-111 mmol/L Carbon Dioxide Level 26 21-32 mmol/L Blood Urea Nitrogen 29 H 7-18 mg/dL Creatinine 2.1 H 0.5-1.3 mg/dL Glomerular Filtration Rate Calc 39 >90 mL/min Random Glucose 135 H 70-105 mg/dL Hemoglobin A1c 5.5 4.0-6.0 % Estimated Average Glucose (eAG) 111 70-126 mg/dL Total Calcium 8.7 8.5-10.1 mg/dL Total Bilirubin 0.6 0.2-1.0 mg/dL Aspartate Amino Transf (AST/SGOT) 11 10-37 U/L Alanine Aminotransferase (ALT/SGPT) < 6 L 12-78 U/L Alkaline Phosphatase 78 50-136 U/L B-Type Natriuretic Peptide 1420 H 0-100 pg/mL Total Protein 6.7 6.0-8.3 g/dL Albumin 2.2 L 3.5-5.0 g/dL Triglycerides Level 137 30-200 mg/dL Cholesterol Level 136 # <200 mg/dL LDL Cholesterol 80 0-99 mg/dL HDL Cholesterol 40 29-71 mg/dL Bedside Glucose Comment Notified Nurse Coagulation Labs: Test 03/02/25 03:12 Range/Units Prothrombin Time 12.0 H 9.6-11.6 SEC Prothromb Time International Ratio 1.15 0.85-1.15 Activated Partial Thromboplast Time 30.1 26.3-35.5 SEC DIAGNOSTICS / RADIOLOGY RESULTS: [ ] PLAN CTS for AVR today Stop IVF Continue diuresis with bumex gtt and metolazone Repeat ABG and CXR in AM Continue IV antibiotics per ID recommendations Continue activity titrate FiO2 as tolerated Maintain adequate oxygenation Keep O2 sats greater equal to 90% Aspiration precaution Rest of the care per primary team NEURO: Minimize central acting medications as possible. Maintain fall precautions, adequate lighting during the day PULMONARY: Supplemental 02 as needed. Maintain aspiration precautions at all times CARDIOVASCULAR: Follow hemodynamics. Vital signs per facility protocol GI & NUTRITION: Continue with nutritional support. Continue stool softeners and laxatives as needed. KIDNEYS & ELECTROLYTES: Strict monitoring of intake, output and overall fluid balance. Avoid nephrotoxic medications to the extent possible. Medications to be dosed according to renal function. Monitor electrolytes and replace as needed ENDOCRINE: Maintain blood glucose between 100-180 at all times. Hypoglycemia protocol in place INFECTIOUS DISEASE: Trend temperature, WBC and procalcitonin level Follow cultures, deescalate antibiotics as soon as possible. Panculture if new onset fever ONCOLOGY/HEMATOLOGY/COAGULATION: Monitor for s/s of bleeding Monitor hemoglobin, coagulation studies as needed SKIN: Pressure ulcer prevention per facility protocol Specialty mattress ORTHO/REHAB: Continue PT/OT Prophylaxis: Continue GI and DVT prophylaxis Code Status: Full Resuscitation Disposition: Per primary team Other: Case discussed with supervising physician plan of care agreed upon Time spent on care including review of chart, discussion of plan with patient and discussion with nursing staff exceeds 45 minutes. This does not include any billable procedures performed. KIT RETANA Mar 02, 2025 11:49
[2025-03-02] MEDS: 0.9%NACL 1000ML 1,000 ML IV ONE (12:44)
[2025-03-02] MEDS ORDERED: 0.9%NACL 1000ML 1,000 ML IV SCH (13:00)
[2025-03-02] MEDS ORDERED: NITROGLYCERIN 50MG/D5W 250ML 1 BOT ONE (13:06)
--- NOTE | 2025-03-02 13:15 | NUR ---
THIS PATIENT HAS BEEN TAKEN DOWN BY OR NURSES GRACIE CASTAÑEDA AND GRACIE LOPEZ TO OR HOLDING AND FAMILY AT BEDSIDE. ALL BELONGINGS WERE TAKEN BY THE FAMILY.
[2025-03-02] MEDS ORDERED: SODIUM BICARB 50MEQ 50ML VIAL 100 ML ONE (13:26)
[2025-03-02] MEDS ORDERED: ceFAZolin SODIUM 1 GM VIAL ONE (13:39)
[2025-03-02] MEDS ORDERED: HEParin-NS 1,000 UNIT/500 ML 500 ML IV ONE (13:39)
[2025-03-02] MEDS ORDERED: EPINEPHrine PF 1MG (1:1,000) 1 MG/ML AMP ONE (14:02)
[2025-03-02] MEDS ORDERED: FENTanyl CITRate PF 50 MCG/1 ML 20ML VIAL IJ ONE (14:02)
[2025-03-02] MEDS ORDERED: LIDOCAINE PF 100MG/5ML (2%) SYRINGE 5ML ONE (14:02)
[2025-03-02] MEDS ORDERED: HEParin 10,000 UNIT/10ML (1,000 UNIT/ML) VIAL ONE (14:02)
[2025-03-02] MEDS ORDERED: PROTamine SULFate 10 MG/ML 25ML VIAL IV ONE (14:02)
[2025-03-02] MEDS ORDERED: SODIUM BICARB 50MEQ 50ML VIAL 200 ML ONE (14:02)
[2025-03-02] MEDS ORDERED: NOREPINEPHRINE BITARTRATE 1 MG/1 ML ML IV ONE (14:02)
[2025-03-02] MEDS ORDERED: proPOFol 10 MG/ML 20ML VIAL IV ONE (14:02)
[2025-03-02] MEDS ORDERED: MIDAZOLAM HCL 1 MG/ML 2ML VIAL ONE (14:03)
[2025-03-02] MEDS ORDERED: rocuRONium bROMide 10MG/1ML 5ML VL ONE ×2 (14:03→15:52)
--- NOTE | 2025-03-02 14:07 | PN ---
[facility] PROGRESS NOTE Date of Service: Mar 02, 2025 Time of Service: 14:05 SUBJECTIVE: [ HPI : 54-year-old male with a complex medical history including recent hospitalization with a Gram-positive bacteremia secondary to Staph aureus, severe sepsis and endocarditis with echogenic vegetations on noncoronary cusps and right coronary cusp as well as left atrial appendage clot on January 11, 2025 presented to the ED days history of worsening shortness of breath. He was discharged on January 31, 2025 with long-term IV linezolid via PICC line for infective endocarditis. Since 3 days he reports progressive dyspnea, worsened acutely today. He denies chest pain but notes fatigue and exertional intolerance. There is no reported fever or chills. He was in mild respiratory distress on arrival. Notably has a past medical history of Fidelina esophagitis, uncontrolled diabetes mellitus type 2 BRENDAN, immune thrombocytopenic purpura, UTI Klebsiella and substance abuse with cocaine alcohol and tobacco. So on physical examination he is positive for shortness of breaths and cough no hemoptysis. His lungs have expiratory wheezes and diffuse crackling bilaterally. He is tachycardic with regular rhythm. His WBC count is at 18, hemoglobin at 10.5 and platelet count at 470 K with leukocytosis chronic anemia and thrombocytosis, chemistry is with creatinine showing 2.2, BUN at and CO2 at 18.2 magnesium low consistent with BRENDAN, electrolyte derangements. His arterial blood gas analysis reveals a pH of 7.469, PaCO2 of 26, PO2 of 54.6, HC03 of 18.2 and saturation of 90.2 Representing acute hypoxic respiratory failure with respiratory alkalosis. Serum lactate is elevated at 3.6 persistent lactic acidosis. BNP is at 2410 suggesting cardiac strain or volume overload. And troponin is elevated at [address] segment elevated AZ. and urine analysis positive concerning for UTI and nephropathy due to positive hyaline casts. Chest x-ray reveals diffuse bilateral opacities consistent with pneumonia and chest CT scan reveals bilateral pleural effusion bilateral ground-glass pulmonary infiltrates are seen renal ultrasound reveals no hydronephrosis. And a CT scan also revealed gallstone. Echo is ordered to assess vegetations, LA clot and EF. Lower extremity Doppler revealed no DVT, Matthews's cyst versus hematoma in the left knee. EGD from prior history Fidelina esophagitis. The patient is admitted to ICU with the critical Care and Cardiology and Infectious Disease consult has been placed for further management currently on Precedex drip and CPAP setting with tidal volume of 657 and a rate of 36 and PIP of15 and ve of 23.2. Furosemide 40 q.12h is added in addition to his antibiotics monitoring the patient closely and discuss the goal of care with the patient and he agreed upon with it. 02/25/2025. Patient seen and examined along with RN. Feels better , breathing has improved. Continues to be on IV Lasix and metolazone was added. Cardiology and critical Care on board CT surgery was consulted for severe aortic regurgitation.] 02/26/25 review software deployment engineer's note in detail. CT surgery was consulted regarding to his severe AI. Patient continues with diuretics in IV antibiotics. No fevers denies chest pain. 02/27/25 44-year-old male with a complex medical history including infective endocard itis, severe aortic insufficiency, CHF, BRENDAN, diabetic nephropathy, bilateral pneumonia, and recent gram-negative sepsis, is clinically improving. The patient reports that shortness of breath has been improving slowly over the past 48 hours. He currently denies chest pain, fever, or chills. He is tolerating medications and oral intake well. He remains on low-flow oxygen at 1L via nasal cannula, saturating well at 98%, ambulating to the chair with mild fatigue but no acute respiratory distress. No complaints of palpitations or dizziness. He is aware of the upcoming left heart catheterization and understands the indication for aortic valve replacement surgery. No family was present during bedside examination WBC: 11.7 (? from 13.2) improving leukocytosis February 28 2025 44-year-old male with severe [place] aortic valve insufficiency, bacterial endocarditis, and worsening pulmonary congestion, was upgraded to PCCU today due to clinical and radiographic deterioration. He remains dyspneic and hypoxic despite low-flow oxygen support. He reports difficulty breathing, especially in the supine position, and has been unable to tolerate lying flat due to severe orthopnea. He feels increasingly fatigued, lightheaded, and weak. Denies chest pain, fevers, chills, or palpitations. He is aware of his pending left heart catheterization and the need for aortic valve replacement surgery and verbalizes continued understanding and consent March 01 2025 The patient was examined at bedside this morning. He remains alert and oriented, and in no acute distress while sitting up. He reports increased shortness of breath when lying back or attempting to sleep supine, consistent with severe orthopnea, though otherwise states that he is feeling okay. He is NPO for the planned left heart catheterization scheduled for today as part of the workup for severe [place] aortic insufficiency with large vegetation and worsening decompensated heart failure. He has no new complaints of chest pain, fever, chills, nausea, or dizziness. He verbalizes understanding of the planned cardiac intervention and its associated risks, including contrast use, bleeding, arrhythmia, and need for surgical valve replacement afterward. March 02 2025 The patient was evaluated at bedside this morning. He was found sitting upright, hemodynamically stable, alert, and oriented. He reports no acute complaints at this time, denies chest pain, palpitations, nausea, or dizziness. He remains on 2L O? via nasal cannula, comfortable at rest, and is awaiting surgical intervention today for severe aortic valve regurgitation. The patient underwent left and right heart catheterization yesterday which revea led normal coronary anatomy with mild non-obstructive CAD. Cardiology has cleared the patient for surgical aortic valve repair. He has been informed of the risks and benefits of the procedure and has provided informed consent. His oxygen saturation and hemodynamics remain stable. He denies orthopnea today. REVIEW OF SYSTEMS CONSTITUTIONAL: Positive for fatigue, mild subjective fever. NEUROLOGICAL: Denies headache, amaurosis fugax, motor weakness, sensory deficit, vertigo/spinning sensation, gait abnormalities, or tremors. ENT: No hearing loss, otalgia, otorrhea, rhinitis, rhinorrhea, hoarseness, or sore throat. CARDIOVASCULAR: Palpitations, no angina. PULMONARY: Shortness of breath, cough, no hemoptysis. SLEEP: Denies morning headaches, daytime somnolence or napping. Denies difficulty falling asleep, staying asleep, waking from sleep. Denies knowledge of snoring. GASTROINTESTINAL: Denies any type of dysphagia to either liquids or solids. Denies nausea, vomiting, pyrosis, early satiety, abdominal pain, diarrhea, constipation, or changes in stool consistency or caliber. Denies coffee-ground emesis, hematemesis, hematochezia, or melanotic stools. GENITOURINARY: Denies frequency, urgency, nocturia, hematuria or incontinence (Storage/Irritative symptoms.) Low urinary stream, straining to void, urinary intermittency or hesitancy, splitting of the voiding stream, terminal dribbling. ENDOCRINOLOGIC: Denies polyuria, polydipsia, polyphagia or heat/cold intolerances. HEMATOLOGIC: Denies thrombophilia/previous clots, or coagulopathy/bleeding disorders. ONCOLOGIC: Denies personal history of malignancy. DERMATOLOGIC: Denies rashes or pruritus. PSYCHIATRIC: Denies any suicidal or homicidal ideation. Denies hallucinations. PHYSICAL EXAM GENERAL APPEARANCE ill appearing, alert, mildly agitated, in moderate respiratory distress. NEUROLOGICAL: Cranial nerves II-XII grossly intact. Motor is 5/5 in bilateral upper and lower extremities proximal to distal. No sensory deficits. HEENT: Face is symmetric. Pupils are equal and reactive. Extraocular movements are intact. NECK: Supple. No JVD. No thyromegaly. No submental, submandibular, pre- /postauricular, occipital or supraclavicular lymphadenopathy. CHEST: Normal chest expansion. No Telemetry. LUNGS: Expiratory wheeze and diffuse crackles bilaterally CARDIOVASCULAR: Regular. S1 and S2 normal. No appreciable rubs, murmurs or gallops. Tachycardia present ABDOMEN: Soft, nontender, and nondistended. There is no rebound, voluntary guarding, or rigidity. : Deferred. No Ortega. EXTREMITIES: Bilateral 2+ pitting edema, left knee warm swollen, limited ROM and pitting edema more on the left compared to right. SKIN: No skin breakdown. Vital Signs (last 8hr) Date Time Temp Pulse Resp B/P (MAP) Pulse Ox O2 Delivery O2 Flow Rate FiO2 03/02/25 13:38 97.9 97 20 121/87 97 Nasal Cannula 24 03/02/25 12:03 97.9 91 18 123/58 95 Nasal Cannula 2.0 03/02/25 08:00 96 Nasal Cannula* 2 28 03/02/25 07:45 97.9 95 18 119/55 96 Nasal Cannula 2.0 LABS: Laboratory: Test 03/02/25 11:54 03/02/25 04:43 03/02/25 03:12 02/28/25 16:17 Range/Units Whole Blood Glucose 119 H 70-110 MG/DL Blood Gas Specimen Type Arterial Arterial Blood pH 7.475 H 7.350-7.450 Arterial Blood Partial Pressure CO2 34 L 35-48 mmHg Arterial Blood Partial Pressure O2 85.5 83.0-108.0 mmHg Arterial Blood HCO3 24.7 21.0-28.0 mmol/L Arterial Blood Oxygen Saturation 97.1 94.0-98.0 % Arterial Blood Base Excess 1.6 -2.0-3.0 mmol/L Blood Gas Temperature 37.0 35.5-37.0 CELSIUS Blood Gas Flow-by 2.00 0.00-15.00 L/min Blood Gas Vent Mode NC ROOM AIR FiO2 28.0 % Blood Gas Specimen Comment RB RN JOHN White Blood Count 10.8 4.8-10.8 K/uL Red Blood Count 2.89 L 4.50-6.20 MIL/uL Hemoglobin 9.2 L 14.0-18.0 g/dL Hematocrit 27.3 L 42-54 % Mean Corpuscular Volume 94.5 79-99 fL Mean Corpuscular Hemoglobin 31.8 27.0-33.0 pg Mean Corpuscular Hemoglobin Concent 33.7 32.0-36.0 g/dL Red Cell Distribution Width 16.9 H 11.0-15.5 % Platelet Count 261 130-400 K/uL Mean Platelet Volume 9.3 7.5-10.5 fL Immature Granulocyte % (Auto) 0.2 0-1 % Neutrophils (%) (Auto) 67.0 40.0-77.0 % Lymphocytes (%) (Auto) 23.0 21.0-51.0 % Monocytes (%) (Auto) 6.5 3.0-13.0 % Eosinophils (%) (Auto) 2.7 0.0-8.0 % Basophils (%) (Auto) 0.6 0.0-5.0 % Neutrophils # (Auto) 7.3 1.8-7.7 K/uL Lymphocytes # (Auto) 2.5 1.0-4.8 K/uL Monocytes # (Auto) 0.7 0.1-1.0 K/uL Eosinophils # (Auto) 0.29 0.00-0.70 K/uL Basophils # (Auto) 0.07 0.00-0.20 K/uL Absolute Immature Granulocyte (auto 0.02 0-1 K/uL Nucleated Red Blood Cells 0.0 0.0-0.19 % Prothrombin Time 12.0 H 9.6-11.6 SEC Prothromb Time International Ratio 1.15 0.85-1.15 Activated Partial Thromboplast Time 30.1 26.3-35.5 SEC Sodium Level 137 136-145 mmol/L Potassium Level 3.3 L 3.5-5.1 mmol/L Chloride Level 96 L 101-111 mmol/L Carbon Dioxide Level 26 21-32 mmol/L Blood Urea Nitrogen 29 H 7-18 mg/dL Creatinine 2.1 H 0.5-1.3 mg/dL Glomerular Filtration Rate Calc 39 >90 mL/min Random Glucose 135 H 70-105 mg/dL Hemoglobin A1c 5.5 4.0-6.0 % Estimated Average Glucose (eAG) 111 70-126 mg/dL Total Calcium 8.7 8.5-10.1 mg/dL Magnesium Level 1.50 L 1.80-2.40 mg/dL Total Bilirubin 0.6 0.2-1.0 mg/dL Aspartate Amino Transf (AST/SGOT) 11 10-37 U/L Alanine Aminotransferase (ALT/SGPT) < 6 L 12-78 U/L Alkaline Phosphatase 78 50-136 U/L B-Type Natriuretic Peptide 1420 H 0-100 pg/mL Total Protein 6.7 6.0-8.3 g/dL Albumin 2.2 L 3.5-5.0 g/dL Triglycerides Level 137 30-200 mg/dL Cholesterol Level 136 # <200 mg/dL LDL Cholesterol 80 0-99 mg/dL HDL Cholesterol 40 29-71 mg/dL Bedside Glucose Comment Notified Nurse Current Medications Medications (Trade) Dose Ordered Sig/Asya Route PRN Reason Start Time Stop Time Status Last Admin Dose Admin Acetaminophen/ Codeine Phosphate (TYLenol-coDEINE (120/12MG 5ML) ELIXIR) 10 ml Q4H PRN PO MODERATE PAIN (4-6) 02/25/25 15:30 02/25/25 15:16 DC Acetaminophen/ Hydrocodone Bitart (NORco 5/325MG) 1 tab Q6H PRN PO MODERATE PAIN (4-6) 02/23/25 23:00 02/28/25 22:59 DC 02/28/25 08:27 1 TAB Acetaminophen/ Hydrocodone Bitart (NORco 5/325MG) 1 tab Q6H PRN PO MODERATE PAIN (4-6) 03/01/25 00:30 03/06/25 00:29 03/01/25 23:53 1 TAB Albuterol (DUOneb) 1 UDVIAL [id number] IH 02/24/25 00:00 02/24/25 14:15 DC 02/24/25 07:08 1 UDVIAL Alteplase, Recombinant (CathFLO 2MG VIAL) 4 mg ONCE IVCATH 02/25/25 09:30 02/25/25 11:00 DC 02/25/25 10:44 4 MG Aminocaproic Acid 86581 mg/Sodium Chloride 480 ml @ 0 mls/hr AD PRN IV BLEEDING CONTROL 03/02/25 08:30 04/01/25 08:29 Aspirin (Aspirin 81mg Ec Tab) 81 mg DAILY PO 02/25/25 09:00 03/27/25 08:59 03/01/25 14:50 81 MG Budesonide (Pulmicort 0.5 Mg/2ml) 0.5 mg BIDRESP IH 02/24/25 18:00 03/26/25 17:59 03/01/25 07:03 0.5 MG Bumetanide 40 ml @ 0 mls/hr AD IV 02/28/25 09:30 03/30/25 09:29 03/02/25 06:01 1 MLS/HR Cefazolin Sodium (Ancef) 2 gm ONCALL IVP 03/01/25 23:00 03/03/25 22:59 Dexmedetomidine/ Sodium Chloride (PRECEdex 400MCG/ 100ML-NS) 400 mcg PROTOCOL IV 02/24/25 10:30 03/26/25 10:29 Dextrose (D50w) 50 ml AD PRN IV HYPOGLYCEMIA PROTOCOL 03/01/25 13:00 03/31/25 12:59 Doxycycline Hyclate (Doxycycline Hyclate) 100 mg BID PO 02/24/25 21:00 03/06/25 20:59 03/01/25 20:19 100 MG Epinephrine HCl 10 mg/Sodium Chloride 250 ml @ 0 mls/hr AD PRN IV TITRATE 03/02/25 08:30 04/01/25 08:29 Folic Acid (FOLic ACID 1 MG TABLET) 1 mg DAILY PO 02/25/25 09:00 02/26/25 07:40 DC 02/25/25 09:07 1 MG Folic Acid (FOLic ACID 1 MG TABLET) 1 mg DAILY PO 02/25/25 09:00 03/27/25 08:59 03/01/25 14:49 1 MG Furosemide (LASix 40MG VIAL) 40 mg Q12H IV 02/24/25 08:30 02/24/25 10:20 DC 02/24/25 09:34 40 MG Furosemide (LASix 40MG VIAL) 40 mg Q8H IV 02/24/25 16:30 02/28/25 09:13 DC 02/28/25 08:26 40 MG Glucagon (Glucagon 1mg Kit) 1 mg AD PRN IM HYPOGLYCEMIA PROTOCOL 03/01/25 13:00 03/31/25 12:59 Heparin Sodium (Porcine) (HEParin 5,000 UNIT VIAL) 5,000 unit BID SQ 02/24/25 09:00 03/26/25 08:59 03/01/25 20:22 5,000 UNIT Ipratropium [place] (AtrovENT UD) 0.5 MG [id number] IH 02/24/25 14:00 03/26/25 13:59 03/01/25 07:03 0.5 MG Linezolid 300 ml @ 150 mls/hr Q12H IV 02/24/25 11:00 03/06/25 10:59 03/01/25 23:52 150 MLS/HR Magnesium Sulfate 50 ml @ 0 mls/hr PROTOCOL PRN IV low magnesium 02/25/25 11:00 03/27/25 10:59 02/25/25 11:27 25 MLS/HR Melatonin (Melatonin) 10 mg HS PRN PO INSOMNIA 02/24/25 11:00 03/26/25 10:59 03/01/25 23:53 10 MG Metolazone (zarOXOlyn) 5 mg DAILY PO 02/25/25 09:00 03/27/25 08:59 03/01/25 14:49 5 MG Montelukast Sodium (SinguLAIR) 10 mg DAILY PO 02/25/25 09:00 03/27/25 08:59 03/01/25 14:49 10 MG Norepinephrine Bitartrate 250 ml @ 0 mls/hr AD PRN IV TITRATE 03/02/25 08:30 04/01/25 08:29 Nystatin (NYSTatin [id number] UNIT/ML 5ML UDCUP) 5 ml QID PO 02/24/25 17:00 03/26/25 16:59 03/01/25 20:19 5 ML Ondansetron HCl (zoFRAN 4MG INJ) 4 mg Q6H PRN IVP NAUSEA/VOMITING 02/24/25 21:00 03/26/25 20:59 03/02/25 12:05 4 MG Pantoprazole Sodium (PROTonix 40MG INJ) 40 mg DAILY IVP 02/24/25 11:00 03/26/25 10:59 03/02/25 11:54 40 MG Pharmacy Profile Note (Lace Assessment) 1 each AD MISC 02/24/25 10:30 02/24/25 10:32 DC Pharmacy Profile Note (Lace Assessment) 1 each AD MISC 02/25/25 15:30 02/25/25 15:17 DC Pharmacy Profile Note (Pharmacy Communication) 1 each ONCE MISC 02/23/25 23:00 02/23/25 23:48 DC Pharmacy Profile Note (Pharmacy Communication) 1 each ONCE MISC 02/25/25 15:30 02/25/25 15:17 DC Piperacillin Sod/ Tazobactam Sod (Zosyn 3.375gm+NS 50ml) 3.375 gm Q8H IV 02/24/25 05:00 03/06/25 04:59 03/02/25 05:48 3.375 GM Potassium Chloride 100 ml @ 100 mls/hr AD PRN IV POTASSIUM PROTOCOL 02/25/25 11:00 02/27/25 10:47 DC 02/27/25 08:24 100 MLS/HR Potassium Chloride 100 ml @ 100 mls/hr AD PRN IV POTASSIUM PROTOCOL 02/25/25 11:00 03/27/25 10:59 03/02/25 11:54 100 MLS/HR Potassium Chloride (K-Dur 10meq Sr Tab) 10 meq AD PRN PO POTASSIUM PROTOCOL 02/27/25 11:00 03/27/25 10:59 03/01/25 05:39 10 MEQ Potassium Chloride (K-Dur/Klor-Con 20meq) 10 meq AD PRN PO POTASSIUM PROTOCOL 02/25/25 11:00 02/27/25 10:48 DC Potassium Chloride (K-Dur/Klor-Con 20meq) 20 meq DAILY PO 03/01/25 09:00 03/31/25 08:59 03/01/25 14:50 20 MEQ Potassium Chloride (KCl 10% Elixir 20meq/15ml) 10 meq AD PRN PO POTASSIUM PROTOCOL 02/25/25 11:00 03/27/25 10:59 Sodium Chloride 1,000 ml @ 0 mls/hr Q0M IV 03/02/25 13:00 04/01/25 12:59 Sodium Chloride 1,000 ml @ 75 mls/hr [id number] IV 02/23/25 20:00 02/23/25 23:03 DC 02/23/25 20:08 75 MLS/HR Sodium Chloride 1,000 ml @ 150 mls/hr Q6H40M IV 03/01/25 13:00 03/01/25 15:37 DC 03/01/25 14:50 150 MLS/HR Thiamine HCl (Vitamin B-1) 100 mg DAILY PO 02/25/25 09:00 03/27/25 08:59 03/01/25 14:50 100 MG Vancomycin HCl (Vancomycin Protocol) 1 each AD IV 02/23/25 19:00 02/23/25 19:33 DC DIAGNOSTICS / RADIOLOGY: [ ] PATIENT: ADAM MOE III MR#: [id number] : 1980 SEX: M AGE: 44 LOCATION: 2D ORDER 2300 STATUS: ADM IN REPORT#: [id number] SERVICE 0600 REASON: chf ORDERING PHYSICIAN: EVANS FLORES MD PROCEDURE: CXR1VW - CHEST 1VW CHEST 1VW HISTORY: CHF COMPARISON: 2024 FINDINGS: A frontal projection of the chest was obtained. There are bilateral pulmonary infiltrates suggestive of pulmonary vascular congestion with possible superimposed pneumonitis. The heart is borderline enlarged. Degenerative changes are seen. No evidence of aortic calcification is seen. IMPRESSION: 1. Bilateral pulmonary infiltrates are seen suggestive of pulmonary vascular congestion with possible superimposed pneumonitis. ASSESSMENT: gram positive bacteremia POA Sepsis, POA Pneumonia, POA Acute hypoxic respiratory failure on CPAP, ABG confirms PO2 less than 60 mmHg, POA Acute on chronic diastolic heart failure with exacerbation POA Acute kidney injury stage II, POA Non ST segment elevated AZ, most likely type 2 AZ secondary to oxygen ischemic POA ITP, POA Uncontrolled diabetes mellitus type 2, POA Diabetic nephropathy, POA Cocaine, alcohol and tobacco use disorder, POA Fidelina esophagitis, POA Matthews's cyst, hematoma, left knee, POA Electrolyte abnormalities, POA Chronic anemia, POA Severe aortic valve insufficiency secondary to infective endocarditis, with large non-coronary cusp vegetation (1.4 cm), EF preserved planned for aortic valve replacement [place] valve infective endocarditis, subacute, gram-positive (Micrococcus) and gram-negative (E. coli, Klebsiella) pathogens, on Zosyn, Linezolid, Doxycycline Bilateral multifocal pneumonia with superimposed pulmonary edema, improving clinically, likely secondary to endocarditis and fluid overload Acute on chronic kidney injury, Hypokalemia Volume overload secondary to congestive heart failure and valvular disease, on diuresis Chronic normocytic anemia, New-onset diabetes mellitus type 2, poorly controlled, monitor glucose closely Electrolyte imbalance hyponatremia, hypokalemia, hypomagnesemia, on repletion protocol Proteinuria with diabetic nephropathy PLAN: Infectious disease: * Continue Zosyn + Linezolid + Doxycycline pending final culture sensitivities * Repeat blood cultures if febrile or WBC rises ID on board Continue IV linezolid q.12h. Continue Zosyn 3.375 g IV q.8h. Continue IV doxycycline 100 mg b.i.d.. Noted blood cultures and sputum cultures. Pulmonary: Critical Care consult has been placed. Supplemental oxygen support, CPAP support and BiPAP setting as necessary to maintain SpO2 levels greater than 92 Budesonide, albuterol ipratropium nebulizations. Monitor ABGs, O2 sats, chest x-ray. Appreciate Pulmonary and critical Care consult suggestions. * Maintain O? via nasal cannula at 1L/min * Wean off as tolerated * Daily chest physiotherapy; monitor ABG Cardiovascular: Stop LasiX Continue Bumetanide Scheduled for Aortic valve surgical repair today Daily CXR Close hemodynamic monitoring with voltage regulator assembler troponin, BNP. Continue telemetry monitoring * Proceed with left heart catheterization ? aortic valve replacement * Monitor troponins and BNP; follow-up Echo post-op Renal/metabolic Monitor CR, BUN, GFR. Avoid nephrotoxins. Monitor glucose, proteinuria. Replete potassium, magnesium, phosphorus. for per facility protocol. * Strict I/Os, daily BMP * Replace K?, Mg? per protocol * Hold nephrotoxic meds PRN GI/nutrition Pantoprazole IV daily. Monitor for GI bleeding. Add thiamine, folate multivitamins if chronic alcohol use. Hematology Monitor platelets for ITP versus reactive thrombocytosis. Consider iron studies, B12, reticulocyte count for anemia. Musculoskeletal: Monitor left knee swelling Avoid NSAIDs due to BRENDAN. Ortho referral if worsening. Sedation/neuro: Precedex for sedation, taper as tolerated. Determine at bedtime for sleep hygiene. ICU delirium prevention with 3 orientation, mobility and lytes during the day. Endocrine: Glucose control with insulin. Monitor for ketones and TKA signs. Consider A1c when stable. Substance use: Assess for withdrawal. [facility] protocol p.r.n. if needed. Offered smoking cessation and substance abuse counseling. * Await left heart catheterization * Cardiothoracic surgery consult completed pending OR schedule for AVR * Plan discharge with home O? evaluation, rehab placement Case management consult has been placed for further discharge planning. ATTESTATION BY PHYSICIAN I have seen and examined the patient. I reviewed the documentation, medical decision making, and treatment plan as noted by the resident above. I agree with the findings and plan of care. Herminio Napoles MD, RAGHAVA R MD Mar 02, 2025 14:07
[2025-03-02 14:27] LABS: ABG BASE EXCESS 0.8 mmol/L (-2.0-3.0); ABG HCO3 25.5 mmol/L (21.0-28.0); ABG OXYGEN SATURATION 98.4 % (94.0-98.0); ABG PCO2 41 mmHg (35-48); ABG PH 7.412 (7.350-7.450); CARBON MONOXIDE 0.3 % (0.5-1.5); DEVICE COMMENT 1; HHb 1.6; PO2, ARTERIAL BG 121.5 mmHg (83.0-108.0)
--- NOTE | 2025-03-02 14:42 | HMCIMG ---
CHEST 1VW HISTORY: Preop COMPARISON: 03/01/2025 FINDINGS: A frontal projection of the chest was obtained. There are bilateral pulmonary infiltrates suggestive of pulmonary vascular congestion with possible superimposed pneumonitis. The heart is borderline enlarged. Mild degenerative changes are seen. No evidence of aortic calcification is seen. IMPRESSION: 1. Bilateral pulmonary infiltrates are seen suggestive of pulmonary vascular congestion with possible superimposed pneumonitis.
[2025-03-02] MEDS: ceFAZolin SODIUM 3 GM VIAL IVPB ONE (15:00)
[2025-03-02] MEDS ORDERED: proPOFol 1000 MG/100 ML 100 ML IV PRN (15:00)
[2025-03-02] MEDS ORDERED: NITROGLYCERIN 50MG/D5W 250ML 250 BOT IV SCH (15:00)
[2025-03-02] MEDS ORDERED: morPHINE 2 MG SYG IV PRN ×2 (15:00)
[2025-03-02] MEDS ORDERED: GLUCAGON 1MG KIT 1 MG ML IM PRN (15:00)
[2025-03-02] MEDS ORDERED: traMADol HCL 50 MG TABLET PO PRN ×2 (15:00)
[2025-03-02] MEDS ORDERED: aminoCAProic ACID 5,000MG VIAL 15,000 MG in 0.9% NACL 250ML 250 ML IV SCH (15:00)
[2025-03-02] MEDS ORDERED: DEXTROSE 50%-WATER 50 ML DISP.SYRIN IV PRN (15:00)
[2025-03-02] MEDS ORDERED: acetaMINOPHEN 650 MG SUPPOSITORY RC PRN (15:00)
[2025-03-02] MEDS ORDERED: ALBUMIN (HUMAN) 5% 250 ML IV PRN (15:00)
[2025-03-02] MEDS ORDERED: acetaMINOPHEN 325 MG TAB PO PRN (15:00)
[2025-03-02] MEDS: 0.9%NACL 1000ML 1,000 ML IV SCH (15:00)
[2025-03-02] MEDS ORDERED: NOREPINEPHRINE BITARTRATE 8 MG in DEXTROSE 5%-WATER 250 ML IV PRN (15:00)
[2025-03-02] MEDS ORDERED: 0.9%NACL 10ML VIAL IVP PRN (15:00)
[2025-03-02] MEDS ORDERED: AMIOdarone 150MG VIAL ONE (15:11)
--- NOTE | 2025-03-02 15:16 | NUR ---
Nutrition consult per LOS Reviewed labs, notes, and medications. Pt with recent d/c 01/31/25, hx of substance abuse, alcohol abuse, tobacco abuse, on HH+ 75 gm cho + glucerna tid, diuretics, b-complex, sedated, IV abx, steroid, K 3.4 (L), elevated BUN 29, elevated Cr 2.2, BG 116 (H) per chart review. Wt via standing scale, 100%PO intake, last BM 02/25/25, moderate pitting, well nourished, no wounds, -410 ml balance 02/28/25 per nursing. No A1C or vit. D available. Recommendations -Provide HH+ 75 gm cho + ensure max TID w/ trays(lower in CHO) -Monitor PO intake -Monitor BM -If no BM >3 days consider stool softener -Monitor electrolytes -Replenish electrolytes per protocol -Monitor wts -Reweigh as able -Order Vit D, vit b-12 labs to rule out deficiencies -Order lipid panel, A1C -Order B-6 labs per Pt hx of EtoH -Provide MVI + b-complex per Pt's hx of substance abuse -Provide vit. C 500 mg BID per Pt hx of smoking -Recommend Pt to follow up with PCP -Monitor goals of care RD to follow + available for consult per protocol Addendum: 03/02/25 at [address] Amended: Links added.
[2025-03-02 15:18] LABS: ABG BASE EXCESS -2.8 mmol/L (-2.0-3.0); ABG HCO3 21.1 mmol/L (21.0-28.0); ABG OXYGEN SATURATION 99.6 % (94.0-98.0); ABG PCO2 33 mmHg (35-48); ABG PH 7.422 (7.350-7.450); CARBON MONOXIDE 0.3 % (0.5-1.5); DEVICE COMMENT 2; HHb 0.4
[2025-03-02] MEDS ORDERED: COMPOUND IV MISC 1 EACH IVSOLN MISC PRN (15:30)
[2025-03-02] MEDS ORDERED: COMPOUND IV REFRIGERATED 1 EACH IVSOLN MISC PRN (15:30)
[2025-03-02 15:54] LABS: ABG OXYGEN SATURATION 99.8 % (94.0-98.0); ABG PCO2 33 mmHg (35-48); ABG PH 7.421 (7.350-7.450); CARBON MONOXIDE 0 % (0.5-1.5); DEVICE COMMENT 3; HHb 0.2; PO2, ARTERIAL BG 402.3 mmHg (83.0-108.0)
[2025-03-02 16:19] LABS: ABG BASE EXCESS -1.3 mmol/L (-2.0-3.0); ABG HCO3 21.8 mmol/L (21.0-28.0); ABG OXYGEN SATURATION 99.6 % (94.0-98.0); ABG PCO2 30 mmHg (35-48); ABG PH 7.477 (7.350-7.450); CARBON MONOXIDE 0 % (0.5-1.5); DEVICE COMMENT 4; HHb 0.4; PO2, ARTERIAL BG 238.7 mmHg (83.0-108.0)
[2025-03-02 16:30] LABS: ABG BASE EXCESS -1.4 mmol/L (-2.0-3.0); ABG HCO3 22.8 mmol/L (21.0-28.0); ABG OXYGEN SATURATION 99.5 % (94.0-98.0); ABG PCO2 36 mmHg (35-48); ABG PH 7.422 (7.350-7.450); CARBON MONOXIDE 0.2 % (0.5-1.5); DEVICE COMMENT 6; HHb 0.5; PO2, ARTERIAL BG 222.3 mmHg (83.0-108.0)
[2025-03-02] MEDS ORDERED: [UNRECOGNIZED DRUG - OTHER] ONE ×2 (16:43→16:52)
[2025-03-02 16:52] LABS: ABG HCO3 26.7 mmol/L (21.0-28.0); ABG OXYGEN SATURATION 99.3 % (94.0-98.0); ABG PCO2 32 mmHg (35-48); ABG PH 7.543 (7.350-7.450); CARBON MONOXIDE 0.3 % (0.5-1.5); DEVICE COMMENT 7; HHb 0.7; PO2, ARTERIAL BG 256.6 mmHg (83.0-108.0)
--- NOTE | 2025-03-02 16:52 | PN ---
[facility] CARDIOLOGY PROGRESS NOTE Date Patient Seen: Mar 02, 2025 Time of Visit: 16:51 Interval History: [pending AVR Physical Examination: GENERAL: [No acute distress.] HEAD: [Normal with no signs of head trauma.] EYES: [PERRLA, EOMI, conjunctiva and sclera normal.] ENT: [Hearing grossly intact, normal oropharynx.] NECK: [Supple without JVD. There is no tenderness, lymphadenopathy, or masses. No thyromegaly. Normal carotid upstrokes without bruits.] LUNGS: [Clear breath sounds bilaterally. There are right basilar rales one third of the way up the chest. No wheezes, or rhonchi.] HEART: [Normal rate and rhythm. diastolic murmur.] VASC: [Peripheral pulses +2 bilaterally.] ABD: [Bowel sounds normal, soft, nontender, no masses, no organomegaly. No audible bruits.] NEURO: [Awake, alert, and oriented x3. No focal sensory or strength deficits noted.] Laboratory: [ ] Hematology Labs: Test 03/02/25 03:12 Range/Units White Blood Count 10.8 4.8-10.8 K/uL Red Blood Count 2.89 L 4.50-6.20 MIL/uL Hemoglobin 9.2 L 14.0-18.0 g/dL Hematocrit 27.3 L 42-54 % Mean Corpuscular Volume 94.5 79-99 fL Mean Corpuscular Hemoglobin 31.8 27.0-33.0 pg Mean Corpuscular Hemoglobin Concent 33.7 32.0-36.0 g/dL Red Cell Distribution Width 16.9 H 11.0-15.5 % Platelet Count 261 130-400 K/uL Mean Platelet Volume 9.3 7.5-10.5 fL Immature Granulocyte % (Auto) 0.2 0-1 % Neutrophils (%) (Auto) 67.0 40.0-77.0 % Lymphocytes (%) (Auto) 23.0 21.0-51.0 % Monocytes (%) (Auto) 6.5 3.0-13.0 % Eosinophils (%) (Auto) 2.7 0.0-8.0 % Basophils (%) (Auto) 0.6 0.0-5.0 % Neutrophils # (Auto) 7.3 1.8-7.7 K/uL Lymphocytes # (Auto) 2.5 1.0-4.8 K/uL Monocytes # (Auto) 0.7 0.1-1.0 K/uL Eosinophils # (Auto) 0.29 0.00-0.70 K/uL Basophils # (Auto) 0.07 0.00-0.20 K/uL Absolute Immature Granulocyte (auto 0.02 0-1 K/uL Nucleated Red Blood Cells 0.0 0.0-0.19 % Chemistry Labs: Test 03/02/25 11:54 03/02/25 03:12 Range/Units Whole Blood Glucose 119 H 70-110 MG/DL Sodium Level 137 136-145 mmol/L Potassium Level 3.3 L 3.5-5.1 mmol/L Chloride Level 96 L 101-111 mmol/L Carbon Dioxide Level 26 21-32 mmol/L Blood Urea Nitrogen 29 H 7-18 mg/dL Creatinine 2.1 H 0.5-1.3 mg/dL Glomerular Filtration Rate Calc 39 >90 mL/min Random Glucose 135 H 70-105 mg/dL Hemoglobin A1c 5.5 4.0-6.0 % Estimated Average Glucose (eAG) 111 70-126 mg/dL Total Calcium 8.7 8.5-10.1 mg/dL Magnesium Level 1.50 L 1.80-2.40 mg/dL Total Bilirubin 0.6 0.2-1.0 mg/dL Aspartate Amino Transf (AST/SGOT) 11 10-37 U/L Alanine Aminotransferase (ALT/SGPT) < 6 L 12-78 U/L Alkaline Phosphatase 78 50-136 U/L B-Type Natriuretic Peptide 1420 H 0-100 pg/mL Total Protein 6.7 6.0-8.3 g/dL Albumin 2.2 L 3.5-5.0 g/dL Triglycerides Level 137 30-200 mg/dL Cholesterol Level 136 # <200 mg/dL LDL Cholesterol 80 0-99 mg/dL HDL Cholesterol 40 29-71 mg/dL Vitamin B12 Level 728 193-986 pg/mL Coagulation Labs: Test 03/02/25 03:12 Range/Units Prothrombin Time 12.0 H 9.6-11.6 SEC Prothromb Time International Ratio 1.15 0.85-1.15 Activated Partial Thromboplast Time 30.1 26.3-35.5 SEC Diagnostics / Radiology: [Copy/Paste Echos/Imaging Report here] Impression and Plan: [-severe AI, secondary to endocarditis -2D echo on 02/24, EF 60-65%, demonstrating with severe AI, 1.4 cm aortic leaflet vegetation -Acute on chronic diastolic heart failure -PNA -UTI -Normocytic anemia -Acute on chronic CKD stage IIIb, baseline creatinine of 2 -Fidelina esophagitis identified on EGD done 01/11/2025 -Bacterial endocarditis affecting the aortic valve (1.81x1.17 cm mass attached to the noncoronary cusp leaflet) identified on DRAKE done 01/11/2025 -Lactic acidosis, improving -Left atrial appendage thrombus identified on DRAKE done 01/11/2025, not currently an anticoagulation due to thrombocytopenia -Normal LV systolic function (LVEF: 60-65% by echo done 01/11/2025) -Elevated troponin (type II AL), peaking in the 400s -History of ITP in 12/2024 -Liver cirrhosis -Esophagitis by EGD 01/11/2025 -CAD s/p PCI with IA Integrilin, aspiration thrombectomy, PTCA, and KISHORE placement (Promus 4.0x16 mm) in the proximal LAD done on 12/19/2015 -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 Troponins have been elevated in the 200-400 range. Normal LHC went for AVR today Thank you for this consult cardiology will continue to follow along] EVANS FLORES MD Mar 02, 2025 16:52
[2025-03-02] MEDS ORDERED: HUM PROTHROMBIN CPLX(PCC)-LANS 500 UNIT VIAL IV ONE (17:13)
[2025-03-02 17:22] LABS: ABG BASE EXCESS -3.2 mmol/L (-2.0-3.0); ABG HCO3 20.6 mmol/L (21.0-28.0); ABG OXYGEN SATURATION 99.3 % (94.0-98.0); ABG PCO2 31 mmHg (35-48); ABG PH 7.434 (7.350-7.450); CARBON MONOXIDE 0.3 % (0.5-1.5); DEVICE COMMENT 9; HHb 0.7; PO2, ARTERIAL BG 282.8 mmHg (83.0-108.0)
[2025-03-02 17:54] LABS: ABG BASE EXCESS -2.8 mmol/L (-2.0-3.0); ABG HCO3 21.3 mmol/L (21.0-28.0); ABG OXYGEN SATURATION 99.3 % (94.0-98.0); ABG PCO2 34 mmHg (35-48); ABG PH 7.412 (7.350-7.450); CARBON MONOXIDE 0.3 % (0.5-1.5); DEVICE COMMENT 9; HHb 0.7; PO2, ARTERIAL BG 326.8 mmHg (83.0-108.0)
[2025-03-02 18:46] LABS: MEAN CORPUSCULAR HEMOGLOBIN 31.4 pg (27.0-33.0); MEAN CORPUSCULAR HGB CONC 33.8 g/dL (32.0-36.0); MEAN CORPUSCULAR VOLUME 92.9 fL (79-99); NUCLEATED RED BLOOD CELLS 0.1 % (0.0-0.19); RED BLOOD CELL COUNT(AUTO) 2.26 MIL/uL (4.50-6.20); RED CELL DISTRIBUTION WIDTH 15.4 % (11.0-15.5); WHITE BLOOD COUNT (AUTO) 24.4 K/uL (4.8-10.8)
[2025-03-02 18:52] LABS: ABG BASE EXCESS -2.9 mmol/L (-2.0-3.0); ABG HCO3 23.1 mmol/L (21.0-28.0); ABG PCO2 46 mmHg (35-48); CARBON MONOXIDE 0.8 % (0.5-1.5); PO2, ARTERIAL BG 219.2 mmHg (83.0-108.0); VENT MODE, BG SIMV (ROOM AIR)
--- NOTE | 2025-03-02 18:52 | EKG ---
[facility] Test Date: 2025-03-02 Test Time: 18:51:02 Pat Name: ADAM MOE Department: 2CV Room: 202 Gender: M Resource Management Specialist: HUNTER : 1980 Requested By: DESIREE GERARDO Order Number: [id number] Reading MD: Ernesto Soto Measurements Intervals [place] Rate: 130 P: 0 OK: 182 QRS: 143 QRSD: 88 T: -52 QT: 298 QTc: 438 Interpretive Statements Sinus tachycardia Left posterior fascicular block ST & T wave abnormality, consider anterolateral ischemia Compared to ECG 03/02/2025 04:55:20 Left posterior fascicular block now present ST (T wave) deviation now present Possible ischemia now present Sinus rhythm no longer present Intraventricular conduction delay no longer present Myocardial infarct finding no longer present Electronically Signed On 03-08-2025 07:16:12 CDT by Ernesto Soto Please click the below link to view image of tracing.
--- NOTE | 2025-03-02 18:56 | HMCIMG ---
PORTABLE CHEST RADIOGRAPH INDICATION: s/p MICS AVR COMPARISON: 03/02/2025 FINDINGS: monitor technician leads overlie the field of view. Median sternotomy wires are in appropriate alignment. Tip of Selden-Saritha catheter occupies the distal right main pulmonary artery. Pleural mediastinal drainage tubes noted. Endotracheal tube is in appropriate position. Different defibrillator patch projects over the right chest as well as lateral left lower chest. Tip of left PICC remains within the SVC. Heart is enlarged Pulmonary vascularity is enlarged Note evidence for consolidation. No significant pleural effusion noted. No pneumothorax detected. IMPRESSION: Cardiomegaly and pulmonary vascular congestion.
[2025-03-02 18:58] LABS: INR 1.08 (0.85-1.15); PROTHROMBIN TIME 11.4 SEC (9.6-11.6)
[2025-03-02 19:00] LABS: PARTIAL THROMBOPLASTIN TIME 32.6 SEC (26.3-35.5)
[2025-03-02 19:04] LABS: CREATININE 1.7 mg/dL (0.5-1.3); MAGNESIUM 2.1 mg/dL (1.80-2.40); PHOSPHORUS 5.4 mg/dL (2.5-4.9); POTASSIUM 3.5 mmol/L (3.5-5.1)
[2025-03-02] MEDS: SODIUM BICARB 50MEQ 50ML VIAL IV PRN (19:04)
[2025-03-02] MEDS: PoTASSium chloRIDE 20MEQ/100ML 100 ML IV PRN (19:14)
[2025-03-02] MEDS: INSULIN REGULAR, HUMAN 3ML 100 UNIT in 0.9%NACL 100ML 99 ML IV SCH (19:17)
[2025-03-02 20:07] LABS: ABG BASE EXCESS -0.8 mmol/L (-2.0-3.0); ABG HCO3 24.1 mmol/L (21.0-28.0); ABG OXYGEN SATURATION 99.2 % (94.0-98.0); ABG PCO2 41 mmHg (35-48); ABG PH 7.388 (7.350-7.450); CARBON MONOXIDE 0.9 % (0.5-1.5); HHb 0.8; PO2, ARTERIAL BG 373.4 mmHg (83.0-108.0); VENT MODE, BG SIMV,PS10 (ROOM AIR)
[2025-03-02] MEDS: ceFAZolin SODIUM 2 GM VIAL IVPB SCH (21:07)
[2025-03-02 21:13] LABS: ABG BASE EXCESS -2.3 mmol/L (-2.0-3.0); ABG HCO3 22.8 mmol/L (21.0-28.0); ABG PCO2 40 mmHg (35-48); ABG PH 7.373 (7.350-7.450); CARBON MONOXIDE 0.7 % (0.5-1.5); PO2, ARTERIAL BG 283.5 mmHg (83.0-108.0); VENT MODE, BG SIMV (ROOM AIR)
--- NOTE | 2025-03-02 21:54 | PN ---
INFECTIOUS DISEASE PROGRESS NOTE Date of Service: Mar 02, 2025 SUBJECTIVE: This is a 44-year-old male patient who was seen and examined at bedside in room 227. Patient is awake, alert and oriented x 3. During visit today patient was sitting up to the bedside chair. Patient is scheduled for a aortic valve replacement for today. Patient is status post heart catheterization day # 1. Patient is afebrile, temperature is 97.9. Will continue on doxycycline, linezolid and Zosyn IV. Family members visiting at bedside. We will continue to monitor patient. PHYSICAL EXAM EYES: Anicteric. Pupils equal and reactive. HENT: No oral thrush seen, moist Oral mucosa. NECK: Supple, no JVD or thyromegaly. LUNGS: Oxygen support via nasal cannula as needed. CARDIOVASCULAR: S1, S2 regular. No murmur heard. ABDOMEN: Soft, non tender, bowel sounds present, no organomegaly. CENTRAL NERVOUS SYSTEM: Awake, alert, oriented x 3. SKIN: No rashes, no swelling. Lower extremity edema. LYMPHATICS: No peripheral lymphadenopathy. MUSCULOSKELETAL: No joint swelling, erythema or tenderness. EXTREMITIES: No cyanosis or clubbing. Lower extremities edema. BACK: No deformity, no pressure ulcer. GENITOURINARY: No dysuria or hematuria. Vital Sign (Last 12 Hours) 03/02/25 03/02/25 03/02/25 03/02/25 12:03 13:38 19:00 19:01 Temp 97.9 97.9 Pulse 91 97 113 116 Resp 18 20 B/P (MAP) 123/58 121/87 104/56 (72) 145/76 (99) Pulse Ox 95 97 100 O2 Delivery Nasal Cannula Nasal Cannula O2 Flow Rate 2.0 FiO2 24 80 03/02/25 03/02/25 03/02/25 03/02/25 19:15 19:30 19:45 20:00 Temp 98.1 Pulse 101 112 120 121 Resp 8 12 B/P (MAP) 112/59 (76) 130/70 (90) 104/60 (75) 147/77 146/77 (100) 164/84 (110) 152/81 (104) Pulse Ox 100 100 100 100 O2 Delivery Ventilator FiO2 100 03/02/25 03/02/25 03/02/25 03/02/25 20:00 20:15 20:30 20:45 Temp 97.5 Pulse 124 121 124 123 Resp 10 12 13 12 B/P (MAP) 105/60 (75) 107/57 (74) 114/63 (80) 117/62 (80) 149/75 (99) 149/77 (101) 147/77 (100) 139/76 (97) Pulse Ox 100 100 100 100 03/02/25 03/02/25 21:00 21:34 Pulse 123 121 Resp 13 B/P (MAP) 118/64 (82) 145/81 (102) Pulse Ox 100 FiO2 50 Intake & Output (last 24hrs) 03/01/25 03/01/25 03/02/25 15:00 23:00 07:00 Intake Total 420.0 ml 360.0 ml 710.0 ml Output Total 300 ml 200 ml 300 ml Balance 120.0 ml 160.0 ml 410.0 ml LABS: Laboratory: Test 03/02/25 21:11 03/02/25 18:30 03/02/25 11:54 03/02/25 04:43 Range/Units Blood Gas Specimen Type Arterial Arterial Blood pH 7.373 7.350-7.450 Arterial Blood Partial Pressure CO2 40 35-48 mmHg Arterial Blood Partial Pressure O2 283.5 H 83.0-108.0 mmHg Arterial Blood HCO3 22.8 21.0-28.0 mmol/L Arterial Blood Oxygen Saturation 99.0 H 94.0-98.0 % Arterial Blood Base Excess -2.3 L -2.0-3.0 mmol/L Hemoglobin (Blood Gas) 7.8 L 13.5-17.5 g/dL Sodium (Blood Gas) 147 H 136-145 MMOL/L Bedside Potassium (Blood Gas) 3.7 3.4-4.5 MMOL/L Bedside Chloride (Blood Gas) 104 98-107 MMOL/L Bedside Glucose (Blood Gas) 193 H 65-95 MG/DL Bedside Ionized Calcium (Blood Gas) 1.21 1.15-1.33 MMOL/L Bedside Lactic Acid (Blood Gas) 11.81 *H 0.36-0.75 MMOL/L Blood Gas Temperature 37.0 35.5-37.0 CELSIUS Blood Gas Respiration Rate 12.0 min. Blood Gas Vent Mode SIMV ROOM AIR FiO2 60.0 % Blood Gas Tidal Volume 750 ml Blood Gas PEEP 5 cm H2O Blood Gas Specimen Comment GRACIE WAYNE White Blood Count 24.4 #H 4.8-10.8 K/uL Red Blood Count 2.26 #L 4.50-6.20 MIL/uL Hemoglobin 7.1 #L 14.0-18.0 g/dL Hematocrit 21.0 #*L 42-54 % Mean Corpuscular Volume 92.9 79-99 fL Mean Corpuscular Hemoglobin 31.4 27.0-33.0 pg Mean Corpuscular Hemoglobin Concent 33.8 32.0-36.0 g/dL Red Cell Distribution Width 15.4 11.0-15.5 % Platelet Count 215 130-400 K/uL Mean Platelet Volume 9.2 7.5-10.5 fL Nucleated Red Blood Cells 0.1 0.0-0.19 % Prothrombin Time 11.4 9.6-11.6 SEC Prothromb Time International Ratio 1.08 0.85-1.15 Activated Partial Thromboplast Time 32.6 26.3-35.5 SEC Sodium Level 147 H 136-145 mmol/L Potassium Level 3.5 3.5-5.1 mmol/L Chloride Level 109 101-111 mmol/L Carbon Dioxide Level 27 21-32 mmol/L Blood Urea Nitrogen 25 H 7-18 mg/dL Creatinine 1.7 H 0.5-1.3 mg/dL Glomerular Filtration Rate Calc 50 >90 mL/min Random Glucose 221 #H 70-105 mg/dL Total Calcium 9.9 8.5-10.1 mg/dL Phosphorus Level 5.4 H 2.5-4.9 mg/dL Magnesium Level 2.10 1.80-2.40 mg/dL Whole Blood Glucose 119 H 70-110 MG/DL Blood Gas Flow-by 2.00 0.00-15.00 L/min Test 03/02/25 03:12 Range/Units Immature Granulocyte % (Auto) 0.2 0-1 % Neutrophils (%) (Auto) 67.0 40.0-77.0 % Lymphocytes (%) (Auto) 23.0 21.0-51.0 % Monocytes (%) (Auto) 6.5 3.0-13.0 % Eosinophils (%) (Auto) 2.7 0.0-8.0 % Basophils (%) (Auto) 0.6 0.0-5.0 % Neutrophils # (Auto) 7.3 1.8-7.7 K/uL Lymphocytes # (Auto) 2.5 1.0-4.8 K/uL Monocytes # (Auto) 0.7 0.1-1.0 K/uL Eosinophils # (Auto) 0.29 0.00-0.70 K/uL Basophils # (Auto) 0.07 0.00-0.20 K/uL Absolute Immature Granulocyte (auto 0.02 0-1 K/uL Hemoglobin A1c 5.5 4.0-6.0 % Estimated Average Glucose (eAG) 111 70-126 mg/dL Total Bilirubin 0.6 0.2-1.0 mg/dL Aspartate Amino Transf (AST/SGOT) 11 10-37 U/L Alanine Aminotransferase (ALT/SGPT) < 6 L 12-78 U/L Alkaline Phosphatase 78 50-136 U/L B-Type Natriuretic Peptide 1420 H 0-100 pg/mL Total Protein 6.7 6.0-8.3 g/dL Albumin 2.2 L 3.5-5.0 g/dL Triglycerides Level 137 30-200 mg/dL Cholesterol Level 136 # <200 mg/dL LDL Cholesterol 80 0-99 mg/dL HDL Cholesterol 40 29-71 mg/dL Vitamin B12 Level 728 193-986 pg/mL ASSESSMENT: Gram-positive Bacteremia. Aortic valve Endocarditis with aortic insufficiency, s/p heart catheterization.. Bacterial Pneumonia. Leukocytosis, resolving. Acute on chronic diastolic heart failure. Acute on chronic renal failure. Morbid obesity. Hypoxic respiratory failure, requiring oxygen support. Anemia. Hypokalemia. PLAN: Continue linezolid IV. Continue Zosyn IV. Continue doxycycline. Continue diuretics. Continue oxygen support. Continue pain management. Avoid nephrotoxic medications. Patient is scheduled for aortic valve replacement for today. This case was reviewed and discussed with my supervising physician and the above assessment and plan was formulated and agreed upon. ATTESTATION BY PHYSICIAN I have seen and examined the patient. I reviewed the documentation, medical decision making, and treatment plan as noted by the mid-level provider above. I agree with the findings and plan of care. JANUARY CARLSON MD, [facility] Mar 02, 2025 21:54
[2025-03-02 22:08] LABS: ABG BASE EXCESS -3.3 mmol/L (-2.0-3.0); ABG HCO3 21.5 mmol/L (21.0-28.0); ABG OXYGEN SATURATION 98.8 % (94.0-98.0); ABG PCO2 38 mmHg (35-48); ABG PH 7.375 (7.350-7.450); CARBON MONOXIDE 0.7 % (0.5-1.5); HHb 1.2; PO2, ARTERIAL BG 230.2 mmHg (83.0-108.0); VENT MODE, BG SIMV (ROOM AIR)
[2025-03-02 23:14] LABS: ABG BASE EXCESS 0.1 mmol/L (-2.0-3.0); ABG HCO3 23.9 mmol/L (21.0-28.0); ABG OXYGEN SATURATION 98.4 % (94.0-98.0); ABG PCO2 35 mmHg (35-48); ABG PH 7.452 (7.350-7.450); CARBON MONOXIDE 0.4 % (0.5-1.5); HHb 1.6; PO2, ARTERIAL BG 168.8 mmHg (83.0-108.0); VENT MODE, BG SIMV (ROOM AIR)
[2025-03-02 23:51] LABS: HEMATOCRIT 24.1 % (42-54); MEAN CORPUSCULAR HEMOGLOBIN 30.5 pg (27.0-33.0); MEAN CORPUSCULAR VOLUME 89.6 fL (79-99); NUCLEATED RED BLOOD CELLS 0.1 % (0.0-0.19); PLATELET COUNT (AUTO) 193 K/uL (130-400); RED BLOOD CELL COUNT(AUTO) 2.69 MIL/uL (4.50-6.20); RED CELL DISTRIBUTION WIDTH 15.8 % (11.0-15.5); WHITE BLOOD COUNT (AUTO) 24.2 K/uL (4.8-10.8)
[2025-03-03] VITALS (85 sets, daily range): BP systolic 94–239; BP diastolic 3–236; PULSE 92–111; RESP 15–113; TEMP 97.4–98.9; O2SAT 96–100
[2025-03-03 00:07] LABS: CREATININE 2.3 mg/dL (0.5-1.3); POTASSIUM 3.3 mmol/L (3.5-5.1)
[2025-03-03 00:12] LABS: ALBUMIN 2.6 g/dL (3.5-5.0); BILIRUBIN,TOTAL 1.5 mg/dL (0.2-1.0); TOTAL PROTEIN, SERUM 5.5 g/dL (6.0-8.3)
[2025-03-03 00:23] LABS: ABG HCO3 24.8 mmol/L (21.0-28.0); ABG OXYGEN SATURATION 98.3 % (94.0-98.0); ABG PCO2 36 mmHg (35-48); ABG PH 7.455 (7.350-7.450); CARBON MONOXIDE 0.2 % (0.5-1.5); HHb 1.7; PO2, ARTERIAL BG 170.2 mmHg (83.0-108.0); VENT MODE, BG SIMV (ROOM AIR)
[2025-03-03 00:26] LABS: WBC MORPHOLOGY SLIDE REVIEWED
[2025-03-03 00:36] LABS: LYMPHOCYTES % (MANUAL) 2 % (22-44); MONOCYTES % (MANUAL) 8 % (2-9); SEGMENTED NEUTROPHILS % 90 % (40-70); TOTAL CELLS COUNTED 100
[2025-03-03 00:38] LABS: MAN.DIFF COMMENT-IMPRESSION MANUAL DIFFERENTIAL; PLATELET MORPHOLOGY COMMENT ADEQUATE
[2025-03-03 01:15] LABS: ABG BASE EXCESS 1.9 mmol/L (-2.0-3.0); ABG HCO3 25.6 mmol/L (21.0-28.0); ABG OXYGEN SATURATION 98.2 % (94.0-98.0); ABG PCO2 37 mmHg (35-48); ABG PH 7.464 (7.350-7.450); CARBON MONOXIDE 0.4 % (0.5-1.5); HHb 1.8; PO2, ARTERIAL BG 151.5 mmHg (83.0-108.0); VENT MODE, BG SIMV (ROOM AIR)
[2025-03-03] MEDS ORDERED: 0.9% NACL 500ML IV.SOLN 500 ML IV SCH (01:30)
[2025-03-03] MEDS ORDERED: VASOpressin 20 UNITS/ML 1ML Vi 40 UNITS in 0.9%NACL 50ML 40 ML IV SCH (01:30)
[2025-03-03] MEDS: ALBUMIN (HUMAN) 5% 500 ML IV SCH (01:31)
[2025-03-03] MEDS: 0.9% NACL 500ML IV.SOLN 500 ML IV SCH (01:32)
[2025-03-03 02:18] LABS: ABG BASE EXCESS 3.4 mmol/L (-2.0-3.0); ABG OXYGEN SATURATION 97.1 % (94.0-98.0); ABG PCO2 37 mmHg (35-48); ABG PH 7.484 (7.350-7.450); CARBON MONOXIDE 0.6 % (0.5-1.5); HHb 2.9; VENT MODE, BG SIMV (ROOM AIR)
[2025-03-03] MEDS: CALCIUM GLUC 1GM 1 GM in 0.9%NACL 50ML 50 ML IV PRN (02:29)
[2025-03-03 02:48] LABS: BASOPHILS # (AUTO) 0.06 K/uL (0.00-0.20); BASOPHILS % (AUTO) 0.4 % (0.0-5.0); EOSINOPHILS # (AUTO) 0.01 K/uL (0.00-0.70); EOSINOPHILS % (AUTO) 0.1 % (0.0-8.0); HEMATOCRIT 23.5 % (42-54); IMMATURE GRANULOCYTE ABSOLUTE 0.06 K/uL (0-1); LYMPHOCYTES # (AUTO) 0.7 K/uL (1.0-4.8); LYMPHOCYTES % (AUTO) 4.7 % (21.0-51.0); MEAN CORPUSCULAR HEMOGLOBIN 30.6 pg (27.0-33.0); MEAN CORPUSCULAR HGB CONC 34.5 g/dL (32.0-36.0); MEAN CORPUSCULAR VOLUME 88.7 fL (79-99); MONOCYTES # (AUTO) 1.2 K/uL (0.1-1.0); MONOCYTES % (AUTO) 7.6 % (3.0-13.0); NEUTROPHILS # (AUTO) 13.2 K/uL (1.8-7.7); NEUTROPHILS % (AUTO) 86.8 % (40.0-77.0); PLATELET COUNT (AUTO) 146 K/uL (130-400); RED BLOOD CELL COUNT(AUTO) 2.65 MIL/uL (4.50-6.20); WHITE BLOOD COUNT (AUTO) 15.2 K/uL (4.8-10.8)
[2025-03-03 02:59] LABS: INR 1.08 (0.85-1.15); PROTHROMBIN TIME 11.4 SEC (9.6-11.6)
[2025-03-03 03:00] LABS: ALBUMIN 2.7 g/dL (3.5-5.0); BILIRUBIN,TOTAL 1.3 mg/dL (0.2-1.0); CREATININE 2.2 mg/dL (0.5-1.3); MAGNESIUM 1.9 mg/dL (1.80-2.40); PARTIAL THROMBOPLASTIN TIME 28.8 SEC (26.3-35.5); PHOSPHORUS 1.9 mg/dL (2.5-4.9); POTASSIUM 3.7 mmol/L (3.5-5.1); TOTAL PROTEIN, SERUM 5.5 g/dL (6.0-8.3)
[2025-03-03] MEDS ORDERED: acetaMINOPHEN 1,000 MG/100 ML VIAL IVPB SCH (03:30)
[2025-03-03 03:35] LABS: ABG BASE EXCESS 2.8 mmol/L (-2.0-3.0); ABG OXYGEN SATURATION 97.4 % (94.0-98.0); ABG PCO2 40 mmHg (35-48); CARBON MONOXIDE 0.9 % (0.5-1.5); HHb 2.6; PO2, ARTERIAL BG 106.2 mmHg (83.0-108.0); VENT MODE, BG AM (ROOM AIR)
[2025-03-03] MEDS: traMADol HCL 50 MG TABLET PO PRN (03:36)
[2025-03-03] MEDS: acetaMINOPHEN 1,000 MG/100 ML VIAL IVPB SCH (04:17)
[2025-03-03] MEDS: ondanSETRON 4MG INJ IV PRN (06:11)
--- NOTE | 2025-03-03 06:31 | NUR ---
summary 1900- pt out of OR at 1845 - AVR BY DR. Devlin, incision to sternum noted, pt intubated AC MODE ON VENTILATOR well tolerated, ETT 7.5 24 lip. on epi and levo, OR complications = bleeding factor 7 given in OR - on arrival labs hgb 7.1 gabriel garcia aware new order 2 RBC and 4 FFP were pending to be administered. Albumin 5% was given for soft b\p. see mars for titration on drips. Chest tube in place mediastinal and pleural left, pacing wires in place. pt not alert or awake. Family at bedside and repeat labs after blood administered. 2100- Lactic acid going up form arrival 6, now 11.8 made gabriel aware no new orders yet reported low SVR as well and soft blood pressure blood in infusing and pt seems to be holding hgb at 7.8 no active bleeding noted. tachycardia. 0- lactic acid increased to 13.8 - pressors were titrated up due to low b/p, levo and epi. pt suffers from endocarditis on ABT treatment managed by dr. nieves. afebrile. attempted to report x2 gabriel garcia no answer. 2300- paged [facility] - JASIEL DREDGEMASTER called back reported abnormal labs lactic - new order 500 ml bolus now, albumin 5% 500 ml, vasopressin to be started and recheck labs in a.m. after interventions pt improved. 0220- pt alert, able to picker packer his head and follow commands - as per CVR protocol to extubate pt in good standing abg good, vital capicity 217 and NIF 25 - extubated and placed on aerosol mask 10 liters 40%. no sob, moderate secretions, able to cough, 99% 02 sat. tolerated well. 0230- Dr. devlin called back - made aware of new orders by [employer] and updated status of pt. pain management requested tylenol iv q6h and prn tramadol noted and ordered. 0530- pt up to chair on 2liters n/c, epi and vaso cont, le4vo off - vitals stable, no bleeding at this time. Able to stand and pivot did good. no pain voiced. family was updated. education provided for incision and surgery care. understood
[2025-03-03] MEDS: MAGNESIUM 2GM PREMIX 50ML 50 ML IV PRN (07:09)
--- NOTE | 2025-03-03 07:14 | NUR ---
refused scds - educated provided and still refused
[2025-03-03] MEDS ORDERED: MAGNESIUM HYDROXIDE 30 ML/UDCUP PO PRN (09:00)
[2025-03-03] MEDS ORDERED: LACTULOSE 20 GM/30 ML UDCUP PO PRN (09:00)
[2025-03-03] MEDS ORDERED: furoSEMIDE 20MG VIAL IV SCH (09:00)
[2025-03-03] MEDS: doCUSate SODIUM 100 MG CAP PO SCH (09:39)
[2025-03-03] MEDS: FAMOTIDINE 20MG VIAL IV SCH (09:40)
[2025-03-03] MEDS: furoSEMIDE 20MG VIAL IV SCH (09:40)
[2025-03-03] MEDS: poTASSium PHOS 15 mMOL+NS250ML 250 ML IV PRN (09:48)
--- NOTE | 2025-03-03 10:06 | HMCIMG ---
CHEST 1VW HISTORY: Valvular replacement COMPARISON: 03/02/2025 FINDINGS: A frontal projection of the chest was obtained. Mild bilateral pulmonary infiltrates are seen may be related to mild pulmonary vascular congestion with possible superimposed pneumonitis. Poststernotomy changes are seen. The heart is enlarged. Degenerative changes of the thoracolumbar spine are present. Endotracheal tube is been removed. All the lines and tubes are again seen in place. No evidence of aortic calcification is seen. IMPRESSION: 1. Mild bilateral pulmonary infiltrates are seen may be related to mild pulmonary vascular congestion with possible superimposed pneumonitis.
--- NOTE | 2025-03-03 10:49 | PN ---
[facility] PROGRESS NOTE Date Patient Seen: Mar 03, 2025 Time of Visit: 10:32 Supervising Physician: [Dr. Nair] Primary Care Physician: Self Referral MD Outpatient Specialists: Inpatient Consults: Dr Dumont PROBLEM LIST: - Acute Hypoxic respiratory failure POA requiring NIV -Acute on chronic diastolic heart failure w/ EF 50-55% on 2 D echo POA - Aortica Valvular vegetation present 1.4cm -Severe Aortic regurgitation Severe multifocal bilateral Bacterial Pneumonia SCAP score 20 Points, sputum culture positive for E coli and Klebsiella -Bilateral Pleural Effusions POA -Acute Cystitis POA -Normocytic anemia -Acute on chronic CKD stage IIIb -Fidelina esophagitis identified on EGD done 01/11/2025 -Bacterial endocarditis affecting the aortic valve (1.81x1.17 cm mass attached to the noncoronary cusp leaflet) identified on DRAKE done 01/11/2025 -Left atrial appendage thrombus identified on DRAKE done 01/11/2025 -Elevated troponin (type II MS) -thrombocytosis -Liver cirrhosis MELD Score 22 Points ( 19.6 % Estimated 3 month Mortality) -cholelithiasis -Esophagitis by EGD 01/11/2025 -CAD s/p PCI with IA Integrilin, aspiration thrombectomy, PTCA, and KISHORE placement (Promus 4.0x16 mm) in the proximal LAD done on 12/19/2015 -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 he is hemodynamically stable with a blood pressure of 125/51, heart rate in the 80s respiratory rate of 24 unlabored saturating 95% on5 L via nasal cannula. Urine output 1.7 L in the last 24 hours. WBCs 16.3 H&H 7.2/31.7 Platelet count of 443 K. chemistry potassium 3.4 chloride of 99 carbon [id number] BUN creatinine 2.1 GFR of 39 glucose 106 lactic acid of 2.8 trending down total calcium 8.4 and albumin of 1.60. Sensitive troponin of 404 with previously be in 258. Respiratory culture growing Gram-negative rods and Gram-positive rods. CV surgeon has been consulted per Cardiology for aortic endocarditis severe aortic regurgitation. We will continue to follow cardiology recommendations and for now patient may downgrade from ICU. 02/28 Patient's repeat echocardiogram shows persistent aortic valvular mass. His sputum culture positive for E coli and Klebsiella. Labs show improved WBC. Patient to continue on IV antibiotics per ID recommendations. He will undergo LHC with possible PCI today per cardiology and plan for aortic valve replacement per CTS afterwards once stabilized. He is now weaned off to room air. 03/01 Vitals are reviewed and within normal limits, T-max 97.3. Patient continues with significant swelling, currently on Bumex drip and metolazone. Has 300ml of urine output overnight. Continues on antibiotics for E coli and Klebsiella on sputum culture. Patient's LHC was postponed yesterday due to scheduling conflict, is pending for today with Dr. Kameron Hilario. 03/02 patient is status post LHC yesterday by Dr. Hilario with findings of normal coronary anatomy and mild non-obstructive CAD. Vitals reviewed and within normal limits with T-max 97.9. He continues on supplemental oxygen with 2 L NC. CBC is grossly unremarkable. CMP shows persistently elevated creatinine at 2.1, relatively unchanged. Continues on bumex drip, has 800ml of urine output overnight. His ABG this morning shows borderline respiratory alkalosis. Blood cultures remain negative, sputum culture positive. Continues on antibiotics per ID. He is pending AVR this AM. 03/03 patient is status post AVR yesterday. He is currently sitting up in chair at bedside. He is in mild distress with tachycardia and tachypnea. Continues on nebulizer treatments. Blood pressure is within normal limits, continues on supplemental oxygen with 1 L. He has been diuresing well with 2595 mL of urine output overnight. White blood count remains elevated but improved to 15., blood cultures remained negative. Lactic acid is downtrending, continues on IV antibiotics per ID. CXR shows diffuse bilateral pulmonary infiltrates consistent with edema, continues on diuretics. Currently on low-dose vasopressin and epinephrine, hemodynamically stable. REVIEW OF SYSTEMS: 12 point ROS reviewed with patient. Pertinent positives mentioned above. Otherwise negative. PHYSICAL EXAM: GENERAL: alert, weak, awake oriented x 3, in mild respiratory distress on 1L HEENT: EOMI, Sclera non icteric, moist mucosa NECK: Supple, no JVD, trachea midline LUNGS: Crackles breath sounds bilaterally. No wheezes HEART: Regular rate and rhythm. Normal S1 and S2, without murmurs ABD: Obese Abdomen soft, nontender. Bowel sounds present EXT: No clubbing cyanosis 2+ bilateral lower extremity edema NEURO: Alert and oriented to person, follows commands Vital Signs (last 8hr) Date Time Temp Pulse Resp B/P (MAP) Pulse Ox O2 Delivery O2 Flow Rate FiO2 03/03/25 06:48 103 18 03/03/25 06:47 103 18 N/Cannula Low lpm 1.0 24 03/03/25 06:00 108 24 121/68 (85) 98 03/03/25 05:30 107 28 134/73 (93) 03/03/25 05:00 104 116/61 (79) 100 143/91 (108) 03/03/25 04:45 104 117/59 (78) 100 146/90 (108) 03/03/25 04:30 104 119/58 (78) 100 149/84 (105) 03/03/25 04:15 106 137/68 (91) 100 156/97 (116) 03/03/25 04:00 98.1 Room Air 21 03/03/25 04:00 105 124/60 (81) 100 149/93 (111) 03/03/25 04:00 100 Aerosol Mask+ 10 40 03/03/25 03:45 107 124/61 (82) 100 154/87 (109) 03/03/25 03:30 109 117/66 (83) 100 152/89 (110) 03/03/25 03:00 104 48 115/57 (76) 100 144/87 (106) 03/03/25 02:57 96 20 N/Cannula Low lpm 10.0 40 03/03/25 02:45 109 113 111/62 (78) 100 133/66 (88) LABS: Hematology Labs: Test 03/03/25 02:33 03/02/25 23:43 Range/Units White Blood Count 15.2 #H 4.8-10.8 K/uL Red Blood Count 2.65 L 4.50-6.20 MIL/uL Hemoglobin 8.1 L 14.0-18.0 g/dL Hematocrit 23.5 L 42-54 % Mean Corpuscular Volume 88.7 79-99 fL Mean Corpuscular Hemoglobin 30.6 27.0-33.0 pg Mean Corpuscular Hemoglobin Concent 34.5 32.0-36.0 g/dL Red Cell Distribution Width 16.0 H 11.0-15.5 % Platelet Count 146 130-400 K/uL Mean Platelet Volume 9.4 7.5-10.5 fL Immature Granulocyte % (Auto) 0.4 0-1 % Neutrophils (%) (Auto) 86.8 H 40.0-77.0 % Lymphocytes (%) (Auto) 4.7 L 21.0-51.0 % Monocytes (%) (Auto) 7.6 3.0-13.0 % Eosinophils (%) (Auto) 0.1 0.0-8.0 % Basophils (%) (Auto) 0.4 0.0-5.0 % Neutrophils # (Auto) 13.2 H 1.8-7.7 K/uL Lymphocytes # (Auto) 0.7 L 1.0-4.8 K/uL Monocytes # (Auto) 1.2 H 0.1-1.0 K/uL Eosinophils # (Auto) 0.01 0.00-0.70 K/uL Basophils # (Auto) 0.06 0.00-0.20 K/uL Absolute Immature Granulocyte (auto 0.06 0-1 K/uL Nucleated Red Blood Cells 0.0 0.0-0.19 % Segmented Neutrophils % 90 H 40-70 % Lymphocytes % (Manual) 2 L 22-44 % Monocytes % (Manual) 8 2-9 % Differential Comment MANUAL DIFFERENTIAL White Cell Morphology Comment SLIDE REVIEWED Platelet Morphology Comment ADEQUATE Red Blood Cell Morphology See comments Chemistry Labs: Test 03/03/25 09:01 03/03/25 02:33 03/02/25 03:12 Range/Units Whole Blood Glucose 145 H 70-110 MG/DL Sodium Level 152 H 136-145 mmol/L Potassium Level 3.7 3.5-5.1 mmol/L Chloride Level 108 101-111 mmol/L Carbon Dioxide Level 28 21-32 mmol/L Blood Urea Nitrogen 25 H 7-18 mg/dL Creatinine 2.2 H 0.5-1.3 mg/dL Glomerular Filtration Rate Calc 37 >90 mL/min Random Glucose 147 H 70-105 mg/dL Lactic Acid Level 10.7 H 0.8-2.5 mmol/L Total Calcium 9.4 8.5-10.1 mg/dL Ionized Calcium 1.17 1.16-1.32 MMOL/L Phosphorus Level 1.9 #L 2.5-4.9 mg/dL Magnesium Level 1.90 1.80-2.40 mg/dL Total Bilirubin 1.3 H 0.2-1.0 mg/dL Aspartate Amino Transf (AST/SGOT) 24 10-37 U/L Alanine Aminotransferase (ALT/SGPT) 10 L 12-78 U/L Alkaline Phosphatase 56 50-136 U/L Total Protein 5.5 L 6.0-8.3 g/dL Albumin 2.7 L 3.5-5.0 g/dL Hemoglobin A1c 5.5 4.0-6.0 % Estimated Average Glucose (eAG) 111 70-126 mg/dL B-Type Natriuretic Peptide 1420 H 0-100 pg/mL Triglycerides Level 137 30-200 mg/dL Cholesterol Level 136 # <200 mg/dL LDL Cholesterol 80 0-99 mg/dL HDL Cholesterol 40 29-71 mg/dL Vitamin B12 Level 728 193-986 pg/mL Coagulation Labs: Test 03/03/25 02:33 03/02/25 23:43 Range/Units Prothrombin Time 11.4 9.6-11.6 SEC Prothromb Time International Ratio 1.08 0.85-1.15 Activated Partial Thromboplast Time 28.8 26.3-35.5 SEC Fibrinogen 359 H 180-350 mg/dL DIAGNOSTICS / RADIOLOGY RESULTS: [Reviewed] PLAN Continue diuretics with lasix Monitor urine output IV antibiotics per ID Wean off oxygen as tolerated OOB to chair PT when appropriate Disposition per primary NEURO: Minimize central acting medications as possible. Fall Precautions. Well lighted room through the day and minimize interruptions through the night to prevent acute delirium. PULMONARY: Supplemental 02 as needed Titrate Fio2 to keep Spo2 > or = 90% DuoNebs and CPT as needed IS hourly while awake for pulmonary hygiene Out of bed to chair as tolerated CARDIOVASCULAR: Follow hemodynamics. Titrate vasopressor to keep MAP >65 or systolic blood pressure >95mmHg LINES: [ ]PIV GI & NUTRITION: Continue nutritional support Aspirations precautions Prokinetic agents and laxatives as needed KIDNEYS & ELECTROLYTES: Strict monitoring of intake and output Daily weights Avoid nephrotoxic agents Monitor electrolytes and replace as needed Goal urine output of 30mL/hr or 0.5mL/kg/hr Urine output: [ ] Fluid Balance: [ ] ENDOCRINE: Maintain blood glucose between 100-180 at all times. Insulin sliding scale for blood glucose management INFECTIOUS DISEASE: Trend temperature. Mccormack-culture if febrile. Micro: [ ] Antibiotics: [ ] HEMATOLOGY & COAGULATION: Monitor H&H. Keep Hgb > 7 Transfuse 1 unit of PRBC for Hgb < 7 Transfuse 1 pack of platelets of platelets < 20, 000 Watch for any signs and symptoms of bleeding SKIN: Pressure ulcer prevention per facility protocol Rehab: PT/OT Prophylaxis: GI: [ ] Protonix DVT: Heparin Code Status: Full Resuscitation Disposition: May downgrade to PCCU Other: Total patient care time exceeds 52 minutes excluding all procedures. Case was discussed and seen with my supervising physician. The above plan was formulated and agreed upon. KIT RETANA Mar 03, 2025 10:49
--- NOTE | 2025-03-03 11:22 | PN ---
TIME: 9:00 a.m. SUBJECTIVE: The patient is a 44-year-old gentleman status post aortic valve replacement, day #1. No major events overnight. He required vasopressor support for his blood pressure overnight. PHYSICAL EXAMINATION: NEUROLOGIC: Alert, oriented extubated. CARDIAC: S1, S2, regular rate and rhythm. RESPIRATORY: Clear to auscultation bilaterally. CHEST: Incision is clean, dry and intact. ASSESSMENT AND PLAN: * Aortic valve endocarditis, status post aortic valve replacement. Remains on low dose epinephrine. The other pressors have been off ____ except vasopressin on 0.04. We will continue to wean the pressors as tolerated. We will start him on aspirin, statin, beta-parish. * Volume overload, on Lasix b.i.d. * Hypercholesterolemia, on high statin therapy. * Acute blood loss anemia. The patient's hemoglobin is 8.2. We will continue to monitor and transfuse for hemoglobin less than 7. Overall, the patient is doing quite well, on day #1, he is on pressor, requirement is going down. He is alert, extubated, sitting on the chair. I spent over 35 minutes with him reviewing the labs, the pertinent data and the critical care status. Overall, he is progressing well after a cardiac surgery. Thank you very much. TID: [id number] RECEIPT: [id number]
[2025-03-03] MEDS: acetaMINOPHEN 1,000 MG/100 ML VIAL IV SCH (11:25)
--- NOTE | 2025-03-03 11:54 | OP ---
DATE OF PROCEDURE: 03/02/2025 TIME: 6:00 p.m. PREOPERATIVE DIAGNOSES: * Aortic valve endocarditis. * Aortic valve insufficiency. POSTOPERATIVE DIAGNOSES: * Aortic valve endocarditis. * Aortic valve insufficiency. PROCEDURE PERFORMED: Aortic valve replacement with a 23 mm Inspiris bioprosthetic valve. INDICATIONS: This is a 44-year-old gentleman who presented with shortness of breath, fatigue and fever. He was found to have aortic valve endocarditis and severe aortic insufficiency inpatient. We had discuss with him about the risks and benefits of surgery. In addition, we had a discussion about the type of valve. We discussed about the bioprosthetic valve. He prefers that because he does not have to take anticoagulation, even though he is on the younger side. I explained the benefits and the risks including loss of limb, loss of life, bleeding, infection, stroke and others. He understood and he wished to proceed with surgery. DESCRIPTION OF PROCEDURE: Following anesthesia induction without any complication and proper preparation of the operative field, the mediastinum was entered through a median sternotomy incision. Total heparin dose was given to the patient. Subsequently, the patient's ascending aorta and right atria were cannulated and connected to the pump. An antegrade cardioplegia was inserted in ascending aorta and connected to cardioplegia line and right superior pulmonary vein vent was inserted and advanced into the left ventricle and connected to the vent line. After that, the patient was placed on full flow cardiopulmonary bypass. The aorta was then crossclamped and antegrade cardioplegia was given to the ascending aorta. We then opened the aorta and gave direct cardioplegia given the severity of the aortic insufficiency to the left and the right ostia. After that, we dissected the aortic valve leaflets and sent them for cultures. Subsequently, I inspected the mitral valve in detail. There were no lesions on the mitral valve or any other destruction in the aortic root components. As a result, we irrigated the root extensively, placed circumferential 2-0 Ti-Cron sutures with pledgets on the ventricular site and then we measured the annulus to be 23 mm Inspiris bioprosthetic valve. We then brought the valve into the field and we passed the sutures through the sewing ring of the valve. The valve was then down to the annulus. The sutures were then secured with Cor-Knot device. After that, irrigation was performed again. The valve was inspected and was sitting in a nice position. It was not compromising the coronary ostia. After that, the aorta was closed in a 2-layer fashion using a 4-0 Prolene suture. Subsequently, the crossclamp was released and the heart started beating spontaneously into sinus rhythm. We were able to wean off cardiopulmonary bypass without any issues. There was quite a bit of coagulopathy given the endocarditis and the infection. So, we had to give a lot of platelet factor 7 and Kcentra in an effort to stop the bleeding, which was diffuse. After a maybe 30-45 minutes, we were able to stop and the bleeding subsided. We inserted 2 chest tubes, one on the left pleura and one in the mediastinum. The sternum was closed with 7 wires. The fascia was closed with #1 Vicryl. The skin was closed with 4-0 Monocryl suture. I was present throughout the entire operation. The patient tolerated the operation well and transferred to the intensive care unit in stable condition. TID: [id number] RECEIPT: [id number]
--- NOTE | 2025-03-03 12:13 | PN ---
[facility] CARDIOLOGY PROGRESS NOTE Date Patient Seen: Mar 03, 2025 Time of Visit: 12:12 Interval History: [s/p AVR 03/02 Physical Examination: GENERAL: [No acute distress.] HEAD: [Normal with no signs of head trauma.] EYES: [PERRLA, EOMI, conjunctiva and sclera normal.] ENT: [Hearing grossly intact, normal oropharynx.] NECK: [Supple without JVD. There is no tenderness, lymphadenopathy, or masses. No thyromegaly. Normal carotid upstrokes without bruits.] LUNGS: [Clear breath sounds bilaterally. There are right basilar rales one third of the way up the chest. No wheezes, or rhonchi.] HEART: [Normal rate and rhythm. ] VASC: [Peripheral pulses +2 bilaterally.] ABD: [Bowel sounds normal, soft, nontender, no masses, no organomegaly. No audible bruits.] NEURO: [Awake, alert, and oriented x3. No focal sensory or strength deficits noted.] Laboratory: [ ] Hematology Labs: Test 03/03/25 02:33 03/02/25 23:43 Range/Units White Blood Count 15.2 #H 4.8-10.8 K/uL Red Blood Count 2.65 L 4.50-6.20 MIL/uL Hemoglobin 8.1 L 14.0-18.0 g/dL Hematocrit 23.5 L 42-54 % Mean Corpuscular Volume 88.7 79-99 fL Mean Corpuscular Hemoglobin 30.6 27.0-33.0 pg Mean Corpuscular Hemoglobin Concent 34.5 32.0-36.0 g/dL Red Cell Distribution Width 16.0 H 11.0-15.5 % Platelet Count 146 130-400 K/uL Mean Platelet Volume 9.4 7.5-10.5 fL Immature Granulocyte % (Auto) 0.4 0-1 % Neutrophils (%) (Auto) 86.8 H 40.0-77.0 % Lymphocytes (%) (Auto) 4.7 L 21.0-51.0 % Monocytes (%) (Auto) 7.6 3.0-13.0 % Eosinophils (%) (Auto) 0.1 0.0-8.0 % Basophils (%) (Auto) 0.4 0.0-5.0 % Neutrophils # (Auto) 13.2 H 1.8-7.7 K/uL Lymphocytes # (Auto) 0.7 L 1.0-4.8 K/uL Monocytes # (Auto) 1.2 H 0.1-1.0 K/uL Eosinophils # (Auto) 0.01 0.00-0.70 K/uL Basophils # (Auto) 0.06 0.00-0.20 K/uL Absolute Immature Granulocyte (auto 0.06 0-1 K/uL Nucleated Red Blood Cells 0.0 0.0-0.19 % Segmented Neutrophils % 90 H 40-70 % Lymphocytes % (Manual) 2 L 22-44 % Monocytes % (Manual) 8 2-9 % Differential Comment MANUAL DIFFERENTIAL White Cell Morphology Comment SLIDE REVIEWED Platelet Morphology Comment ADEQUATE Red Blood Cell Morphology See comments Chemistry Labs: Test 03/03/25 09:01 03/03/25 02:33 03/02/25 03:12 Range/Units Whole Blood Glucose 145 H 70-110 MG/DL Sodium Level 152 H 136-145 mmol/L Potassium Level 3.7 3.5-5.1 mmol/L Chloride Level 108 101-111 mmol/L Carbon Dioxide Level 28 21-32 mmol/L Blood Urea Nitrogen 25 H 7-18 mg/dL Creatinine 2.2 H 0.5-1.3 mg/dL Glomerular Filtration Rate Calc 37 >90 mL/min Random Glucose 147 H 70-105 mg/dL Lactic Acid Level 10.7 H 0.8-2.5 mmol/L Total Calcium 9.4 8.5-10.1 mg/dL Ionized Calcium 1.17 1.16-1.32 MMOL/L Phosphorus Level 1.9 #L 2.5-4.9 mg/dL Magnesium Level 1.90 1.80-2.40 mg/dL Total Bilirubin 1.3 H 0.2-1.0 mg/dL Aspartate Amino Transf (AST/SGOT) 24 10-37 U/L Alanine Aminotransferase (ALT/SGPT) 10 L 12-78 U/L Alkaline Phosphatase 56 50-136 U/L Total Protein 5.5 L 6.0-8.3 g/dL Albumin 2.7 L 3.5-5.0 g/dL Hemoglobin A1c 5.5 4.0-6.0 % Estimated Average Glucose (eAG) 111 70-126 mg/dL B-Type Natriuretic Peptide 1420 H 0-100 pg/mL Triglycerides Level 137 30-200 mg/dL Cholesterol Level 136 # <200 mg/dL LDL Cholesterol 80 0-99 mg/dL HDL Cholesterol 40 29-71 mg/dL Vitamin B12 Level 728 193-986 pg/mL Coagulation Labs: Test 03/03/25 02:33 03/02/25 23:43 Range/Units Prothrombin Time 11.4 9.6-11.6 SEC Prothromb Time International Ratio 1.08 0.85-1.15 Activated Partial Thromboplast Time 28.8 26.3-35.5 SEC Fibrinogen 359 H 180-350 mg/dL Diagnostics / Radiology: [Copy/Paste Echos/Imaging Report here] Impression and Plan: [-severe AI, secondary to endocarditis -2D echo on 02/24, EF 60-65%, demonstrating with severe AI, 1.4 cm aortic leaflet vegetation -Acute on chronic diastolic heart failure -PNA -UTI -Normocytic anemia -Acute on chronic CKD stage IIIb, baseline creatinine of 2 -Fidelina esophagitis identified on EGD done 01/11/2025 -Bacterial endocarditis affecting the aortic valve (1.81x1.17 cm mass attached to the noncoronary cusp leaflet) identified on DRAKE done 01/11/2025 -Lactic acidosis, improving -Left atrial appendage thrombus identified on DRAKE done 01/11/2025, not currently an anticoagulation due to thrombocytopenia -Normal LV systolic function (LVEF: 60-65% by echo done 01/11/2025) -Elevated troponin (type II LA), peaking in the 400s -History of ITP in 12/2024 -Liver cirrhosis -Esophagitis by EGD 01/11/2025 -CAD s/p PCI with IA Integrilin, aspiration thrombectomy, PTCA, and KISHORE placement (Promus 4.0x16 mm) in the proximal LAD done on 12/19/2015 -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 Troponins have been elevated in the 200-400 range. Normal LHC s/p AVR 03/02 Thank you for this consult cardiology will continue to follow along] EVANS FLORES MD Mar 03, 2025 12:13
[2025-03-03] MEDS: ceFAZolin SODIUM 2 GM VIAL ONE (14:05)
--- NOTE | 2025-03-03 14:56 | PN ---
[facility] PROGRESS NOTE Date of Service: Mar 03, 2025 Time of Service: 14:54 SUBJECTIVE: [ HPI : 54-year-old male with a complex medical history including recent hospitalization with a Gram-positive bacteremia secondary to Staph aureus, severe sepsis and endocarditis with echogenic vegetations on noncoronary cusps and right coronary cusp as well as left atrial appendage clot on January 11, 2025 presented to the ED days history of worsening shortness of breath. He was discharged on January 31, 2025 with long-term IV linezolid via PICC line for infective endocarditis. Since 3 days he reports progressive dyspnea, worsened acutely today. He denies chest pain but notes fatigue and exertional intolerance. There is no reported fever or chills. He was in mild respiratory distress on arrival. Notably has a past medical history of Fidelina esophagitis, uncontrolled diabetes mellitus type 2 BRENDAN, immune thrombocytopenic purpura, UTI Klebsiella and substance abuse with cocaine alcohol and tobacco. So on physical examination he is positive for shortness of breaths and cough no hemoptysis. His lungs have expiratory wheezes and diffuse crackling bilaterally. He is tachycardic with regular rhythm. His WBC count is at 18, hemoglobin at 10.5 and platelet count at 470 K with leukocytosis chronic anemia and thrombocytosis, chemistry is with creatinine showing 2.2, BUN at and CO2 at 18.2 magnesium low consistent with BRENDAN, electrolyte derangements. His arterial blood gas analysis reveals a pH of 7.469, PaCO2 of 26, PO2 of 54.6, HC03 of 18.2 and saturation of 90.2 Representing acute hypoxic respiratory failure with respiratory alkalosis. Serum lactate is elevated at 3.6 persistent lactic acidosis. BNP is at 2410 suggesting cardiac strain or volume overload. And troponin is elevated at [address] segment elevated KS. and urine analysis positive concerning for UTI and nephropathy due to positive hyaline casts. Chest x-ray reveals diffuse bilateral opacities consistent with pneumonia and chest CT scan reveals bilateral pleural effusion bilateral ground-glass pulmonary infiltrates are seen renal ultrasound reveals no hydronephrosis. And a CT scan also revealed gallstone. Echo is ordered to assess vegetations, LA clot and EF. Lower extremity Doppler revealed no DVT, Matthews's cyst versus hematoma in the left knee. EGD from prior history Fidelina esophagitis. The patient is admitted to ICU with the critical Care and Cardiology and Infectious Disease consult has been placed for further management currently on Precedex drip and CPAP setting with tidal volume of 657 and a rate of 36 and PIP of15 and ve of 23.2. Furosemide 40 q.12h is added in addition to his antibiotics monitoring the patient closely and discuss the goal of care with the patient and he agreed upon with it. 02/25/2025. Patient seen and examined along with RN. Feels better , breathing has improved. Continues to be on IV Lasix and metolazone was added. Cardiology and critical Care on board CT surgery was consulted for severe aortic regurgitation.] 02/26/25 review bicycle repair technician's note in detail. CT surgery was consulted regarding to his severe AI. Patient continues with diuretics in IV antibiotics. No fevers denies chest pain. 02/27/25 44-year-old male with a complex medical history including infective endocard itis, severe aortic insufficiency, CHF, BRENDAN, diabetic nephropathy, bilateral pneumonia, and recent gram-negative sepsis, is clinically improving. The patient reports that shortness of breath has been improving slowly over the past 48 hours. He currently denies chest pain, fever, or chills. He is tolerating medications and oral intake well. He remains on low-flow oxygen at 1L via nasal cannula, saturating well at 98%, ambulating to the chair with mild fatigue but no acute respiratory distress. No complaints of palpitations or dizziness. He is aware of the upcoming left heart catheterization and understands the indication for aortic valve replacement surgery. No family was present during bedside examination WBC: 11.7 (? from 13.2) improving leukocytosis February 28 2025 44-year-old male with severe [place] aortic valve insufficiency, bacterial endocarditis, and worsening pulmonary congestion, was upgraded to PCCU today due to clinical and radiographic deterioration. He remains dyspneic and hypoxic despite low-flow oxygen support. He reports difficulty breathing, especially in the supine position, and has been unable to tolerate lying flat due to severe orthopnea. He feels increasingly fatigued, lightheaded, and weak. Denies chest pain, fevers, chills, or palpitations. He is aware of his pending left heart catheterization and the need for aortic valve replacement surgery and verbalizes continued understanding and consent March 01 2025 The patient was examined at bedside this morning. He remains alert and oriented, and in no acute distress while sitting up. He reports increased shortness of breath when lying back or attempting to sleep supine, consistent with severe orthopnea, though otherwise states that he is feeling okay. He is NPO for the planned left heart catheterization scheduled for today as part of the workup for severe [place] aortic insufficiency with large vegetation and worsening decompensated heart failure. He has no new complaints of chest pain, fever, chills, nausea, or dizziness. He verbalizes understanding of the planned cardiac intervention and its associated risks, including contrast use, bleeding, arrhythmia, and need for surgical valve replacement afterward. March 02 2025 The patient was evaluated at bedside this morning. He was found sitting upright, hemodynamically stable, alert, and oriented. He reports no acute complaints at this time, denies chest pain, palpitations, nausea, or dizziness. He remains on 2L O? via nasal cannula, comfortable at rest, and is awaiting surgical intervention today for severe aortic valve regurgitation. The patient underwent left and right heart catheterization yesterday which revea led normal coronary anatomy with mild non-obstructive CAD. Cardiology has cleared the patient for surgical aortic valve repair. He has been informed of the risks and benefits of the procedure and has provided informed consent. His oxygen saturation and hemodynamics remain stable. He denies orthopnea today. 03/03/25 The patient was examined at bedside this morning, currently Post-Operative Day 1 following successful aortic valve replacement for [place] valve endocarditis. He is sitting upright in bed, alert and oriented, and reports that he is doing okay overall. He denies shortness of breath or chest discomfort but reports moderate incisional pain, well controlled with PRN Tylenol and tramadol. He reports mild fatigue but no nausea, dizziness, palpitations, or changes in vision. He is tolerating clear liquids. He has been out of bed to chair. No major overnight events noted. REVIEW OF SYSTEMS CONSTITUTIONAL: Positive for fatigue, mild subjective fever. NEUROLOGICAL: Denies headache, amaurosis fugax, motor weakness, sensory deficit, vertigo/spinning sensation, gait abnormalities, or tremors. ENT: No hearing loss, otalgia, otorrhea, rhinitis, rhinorrhea, hoarseness, or sore throat. CARDIOVASCULAR: Palpitations, no angina. PULMONARY: Shortness of breath, cough, no hemoptysis. SLEEP: Denies morning headaches, daytime somnolence or napping. Denies difficulty falling asleep, staying asleep, waking from sleep. Denies knowledge of snoring. GASTROINTESTINAL: Denies any type of dysphagia to either liquids or solids. Denies nausea, vomiting, pyrosis, early satiety, abdominal pain, diarrhea, constipation, or changes in stool consistency or caliber. Denies coffee-ground emesis, hematemesis, hematochezia, or melanotic stools. GENITOURINARY: Denies frequency, urgency, nocturia, hematuria or incontinence (Storage/Irritative symptoms.) Low urinary stream, straining to void, urinary intermittency or hesitancy, splitting of the voiding stream, terminal dribbling. ENDOCRINOLOGIC: Denies polyuria, polydipsia, polyphagia or heat/cold intolerances. HEMATOLOGIC: Denies thrombophilia/previous clots, or coagulopathy/bleeding disorders. ONCOLOGIC: Denies personal history of malignancy. DERMATOLOGIC: Denies rashes or pruritus. PSYCHIATRIC: Denies any suicidal or homicidal ideation. Denies hallucinations. PHYSICAL EXAM GENERAL APPEARANCE ill appearing, alert, mildly agitated, in moderate respiratory distress. NEUROLOGICAL: Cranial nerves II-XII grossly intact. Motor is 5/5 in bilateral upper and lower extremities proximal to distal. No sensory deficits. HEENT: Face is symmetric. Pupils are equal and reactive. Extraocular movements are intact. NECK: Supple. No JVD. No thyromegaly. No submental, submandibular, pre- /postauricular, occipital or supraclavicular lymphadenopathy. CHEST: Normal chest expansion. No Telemetry. LUNGS: Expiratory wheeze and diffuse crackles bilaterally CARDIOVASCULAR: Regular. S1 and S2 normal. No appreciable rubs, murmurs or gallops. Tachycardia present ABDOMEN: Soft, nontender, and nondistended. There is no rebound, voluntary guarding, or rigidity. : Deferred. No Ortega. EXTREMITIES: Bilateral 2+ pitting edema, left knee warm swollen, limited ROM and pitting edema more on the left compared to right. SKIN: No skin breakdown. Vital Signs (last 8hr) Date Time Temp Pulse Resp B/P (MAP) Pulse Ox O2 Delivery O2 Flow Rate FiO2 03/03/25 14:22 96 18 N/A Room Air 21 03/03/25 14:22 97 18 03/03/25 10:15 100 22 119/62 (81) 97 135/78 (97) 03/03/25 10:00 97 25 125/66 (85) 100 144/92 (109) 03/03/25 09:45 99 18 131/72 (91) 98 155/91 (112) 03/03/25 09:30 100 19 130/65 (86) 100 151/81 (104) 03/03/25 09:15 100 24 108/94 (99) 98 150/75 (100) 03/03/25 09:00 97 22 125/68 (87) 97 143/94 (110) 03/03/25 08:45 98 21 128/62 (84) 100 141/95 (110) 03/03/25 08:30 96 26 125/61 (82) 100 150/93 (112) 03/03/25 08:15 109 39 104/57 (73) 100 123/94 (104) 03/03/25 08:00 99.0 97 48 124/61 (82) 100 137/93 (108) 03/03/25 08:00 100 Nasal Cannula* 2 N/A Aerosol Mask+ 03/03/25 07:45 101 22 114/64 (81) 100 109/94 (99) 03/03/25 07:30 106 34 112/63 (79) 100 133/99 (110) 03/03/25 07:15 103 36 102/55 (71) 100 136/86 (103) 03/03/25 07:00 105 20 100/57 (71) 100 142/85 (104) LABS: Laboratory: Test 03/03/25 14:15 03/03/25 03:34 03/03/25 02:33 03/03/25 02:16 Range/Units Whole Blood Glucose 149 H 70-110 MG/DL Blood Gas Specimen Type Arterial Arterial Blood pH 7.450 7.350-7.450 Arterial Blood Partial Pressure CO2 40 35-48 mmHg Arterial Blood Partial Pressure O2 106.2 83.0-108.0 mmHg Arterial Blood HCO3 27.0 21.0-28.0 mmol/L Arterial Blood Oxygen Saturation 97.4 94.0-98.0 % Arterial Blood Base Excess 2.8 -2.0-3.0 mmol/L Hemoglobin (Blood Gas) 8.3 L 13.5-17.5 g/dL Sodium (Blood Gas) 146 H 136-145 MMOL/L Bedside Potassium (Blood Gas) 3.7 3.4-4.5 MMOL/L Bedside Chloride (Blood Gas) 106 98-107 MMOL/L Bedside Glucose (Blood Gas) 122 H 65-95 MG/DL Bedside Ionized Calcium (Blood Gas) 1.24 1.15-1.33 MMOL/L Bedside Lactic Acid (Blood Gas) 7.76 *H 0.36-0.75 MMOL/L Blood Gas Temperature 37.0 35.5-37.0 CELSIUS Blood Gas Flow-by 10.00 0.00-15.00 L/min Blood Gas Vent Mode AM ROOM AIR FiO2 40.0 % Blood Gas Specimen Comment GRACIE WAYNE White Blood Count 15.2 #H 4.8-10.8 K/uL Red Blood Count 2.65 L 4.50-6.20 MIL/uL Hemoglobin 8.1 L 14.0-18.0 g/dL Hematocrit 23.5 L 42-54 % Mean Corpuscular Volume 88.7 79-99 fL Mean Corpuscular Hemoglobin 30.6 27.0-33.0 pg Mean Corpuscular Hemoglobin Concent 34.5 32.0-36.0 g/dL Red Cell Distribution Width 16.0 H 11.0-15.5 % Platelet Count 146 130-400 K/uL Mean Platelet Volume 9.4 7.5-10.5 fL Immature Granulocyte % (Auto) 0.4 0-1 % Neutrophils (%) (Auto) 86.8 H 40.0-77.0 % Lymphocytes (%) (Auto) 4.7 L 21.0-51.0 % Monocytes (%) (Auto) 7.6 3.0-13.0 % Eosinophils (%) (Auto) 0.1 0.0-8.0 % Basophils (%) (Auto) 0.4 0.0-5.0 % Neutrophils # (Auto) 13.2 H 1.8-7.7 K/uL Lymphocytes # (Auto) 0.7 L 1.0-4.8 K/uL Monocytes # (Auto) 1.2 H 0.1-1.0 K/uL Eosinophils # (Auto) 0.01 0.00-0.70 K/uL Basophils # (Auto) 0.06 0.00-0.20 K/uL Absolute Immature Granulocyte (auto 0.06 0-1 K/uL Nucleated Red Blood Cells 0.0 0.0-0.19 % Prothrombin Time 11.4 9.6-11.6 SEC Prothromb Time International Ratio 1.08 0.85-1.15 Activated Partial Thromboplast Time 28.8 26.3-35.5 SEC Sodium Level 152 H 136-145 mmol/L Potassium Level 3.7 3.5-5.1 mmol/L Chloride Level 108 101-111 mmol/L Carbon Dioxide Level 28 21-32 mmol/L Blood Urea Nitrogen 25 H 7-18 mg/dL Creatinine 2.2 H 0.5-1.3 mg/dL Glomerular Filtration Rate Calc 37 >90 mL/min Random Glucose 147 H 70-105 mg/dL Lactic Acid Level 10.7 H 0.8-2.5 mmol/L Total Calcium 9.4 8.5-10.1 mg/dL Ionized Calcium 1.17 1.16-1.32 MMOL/L Phosphorus Level 1.9 #L 2.5-4.9 mg/dL Magnesium Level 1.90 1.80-2.40 mg/dL Total Bilirubin 1.3 H 0.2-1.0 mg/dL Aspartate Amino Transf (AST/SGOT) 24 10-37 U/L Alanine Aminotransferase (ALT/SGPT) 10 L 12-78 U/L Alkaline Phosphatase 56 50-136 U/L Total Protein 5.5 L 6.0-8.3 g/dL Albumin 2.7 L 3.5-5.0 g/dL Blood Gas Respiration Rate 4.0 min. Blood Gas Tidal Volume 750 ml Blood Gas PEEP 5 cm H2O Test 03/02/25 23:43 03/02/25 03:12 Range/Units Segmented Neutrophils % 90 H 40-70 % Lymphocytes % (Manual) 2 L 22-44 % Monocytes % (Manual) 8 2-9 % Differential Comment MANUAL DIFFERENTIAL White Cell Morphology Comment SLIDE REVIEWED Platelet Morphology Comment ADEQUATE Red Blood Cell Morphology See comments Fibrinogen 359 H 180-350 mg/dL Hemoglobin A1c 5.5 4.0-6.0 % Estimated Average Glucose (eAG) 111 70-126 mg/dL B-Type Natriuretic Peptide 1420 H 0-100 pg/mL Triglycerides Level 137 30-200 mg/dL Cholesterol Level 136 # <200 mg/dL LDL Cholesterol 80 0-99 mg/dL HDL Cholesterol 40 29-71 mg/dL Vitamin B12 Level 728 193-986 pg/mL Current Medications Medications (Trade) Dose Ordered Sig/Asya Route PRN Reason Start Time Stop Time Status Last Admin Dose Admin Acetaminophen (TYLenol 325MG TAB) 650 mg Q4H PRN PO Temp >38.3C(AFTER EXTUBATION) 03/02/25 15:00 04/01/25 14:59 Acetaminophen (TYLenol 325MG TAB) 650 mg Q6H PRN PO MILD PAIN (1-3) 03/03/25 09:00 04/02/25 08:59 Acetaminophen (TYLenol 650MG SUPPOSITORY) 650 mg Q4H PRN RC Temp >38.3C WHILE INTUBATED 03/02/25 15:00 04/01/25 14:59 Acetaminophen (acetaMINOPHEN) 1,000 mg Q6H IVPB 03/03/25 04:00 03/03/25 08:44 DC 03/03/25 04:17 Acetaminophen (acetaMINOPHEN) 1,000 mg Q6H6 IV 03/03/25 09:00 03/04/25 08:59 03/03/25 11:25 Acetaminophen (acetaMINOPHEN) 1,000 mg Q6H6 IVPB 03/03/25 03:30 03/03/25 04:00 DC Acetaminophen/ Codeine Phosphate (TYLenol-coDEINE (120/12MG 5ML) ELIXIR) 10 ml Q4H PRN PO MODERATE PAIN (4-6) 02/25/25 15:30 02/25/25 15:16 DC Acetaminophen/ Hydrocodone Bitart (NORco 5/325MG) 1 tab Q6H PRN PO MODERATE PAIN (4-6) 02/23/25 23:00 02/28/25 22:59 DC 02/28/25 08:27 Acetaminophen/ Hydrocodone Bitart (NORco 5/325MG) 1 tab Q6H PRN PO MODERATE PAIN (4-6) 03/01/25 00:30 03/02/25 14:57 DC 03/01/25 23:53 Albumin Human 250 ml @ 0 mls/hr AD PRN IV IF HEMODYNAMICALLY UNSTABLE 03/02/25 15:00 Albumin Human 500 ml @ 0 mls/hr AD IV 03/03/25 01:30 03/03/25 08:52 DC 03/03/25 01:31 Albuterol (DUOneb) 1 UDVIAL [id number] IH 02/24/25 00:00 02/24/25 14:15 DC 02/24/25 07:08 Alteplase, Recombinant (CathFLO 2MG VIAL) 4 mg ONCE IVCATH 02/25/25 09:30 02/25/25 11:00 DC 02/25/25 10:44 Aminocaproic Acid 97904 mg/Sodium Chloride 310 ml @ 25 mls/hr AD IV 03/02/25 15:00 03/02/25 15:15 DC Aminocaproic Acid 86473 mg/Sodium Chloride 480 ml @ 0 mls/hr AD PRN IV BLEEDING CONTROL 03/02/25 08:30 04/01/25 08:29 Aspirin (Aspirin 81mg Ec Tab) 81 mg DAILY PO 02/25/25 09:00 03/27/25 08:59 03/03/25 09:39 Budesonide (Pulmicort 0.5 Mg/2ml) 0.5 mg BIDRESP IH 02/24/25 18:00 03/26/25 17:59 03/03/25 06:44 Bumetanide 40 ml @ 0 mls/hr AD IV 02/28/25 09:30 03/02/25 14:57 DC 03/02/25 06:01 Calcium Gluconate 1 gm/Sodium Chloride 60 ml @ 0 mls/hr AD PRN IV HYPOCALCEMIA 03/02/25 15:00 04/01/25 14:59 03/03/25 02:29 Cefazolin Sodium (Ancef) 2 gm ONCALL IVP 03/01/25 23:00 03/02/25 15:20 DC Cefazolin Sodium (Ancef) 2 gm Q8H IVPB 03/02/25 20:00 03/03/25 12:01 DC 03/03/25 14:04 Desmopressin Acetate 40 mcg/ Sodium Chloride 50 ml @ 100 mls/hr AD STAT IJ 03/02/25 17:44 03/02/25 18:13 DC Dexmedetomidine/ Sodium Chloride (PRECEdex 400MCG/ 100ML-NS) 400 mcg PROTOCOL IV 02/24/25 10:30 03/02/25 14:57 DC Dextrose (D50w) 50 ml AD PRN IV HYPOGLYCEMIA PROTOCOL 03/01/25 13:00 03/02/25 15:25 DC Dextrose (D50w) 50 ml AD PRN IV HYPOGLYCEMIA PROTOCOL 03/02/25 15:00 04/01/25 14:59 Docusate Sodium (COLace 100MG CAP) 100 mg BID PO 03/03/25 09:00 04/02/25 08:59 03/03/25 09:39 Doxycycline Hyclate (Doxycycline Hyclate) 100 mg BID PO 02/24/25 21:00 03/06/25 20:59 03/03/25 09:39 Enoxaparin Sodium (Lovenox) 30 mg DAILY SQ 03/05/25 09:00 04/04/25 08:59 Epinephrine HCl 10 mg/Sodium Chloride 250 ml @ 0 mls/hr AD PRN IV TITRATE 03/02/25 08:30 04/01/25 08:29 Epinephrine HCl 10 mg/Sodium Chloride 250 ml @ 0 mls/hr AD PRN IV POST-OP CARDIOVASCULAR ORDERS 03/02/25 15:00 03/02/25 15:16 DC Famotidine (Pepcid 20mg Vial) 20 mg DAILY IV 03/03/25 09:00 04/02/25 08:59 03/03/25 09:40 Folic Acid (FOLic ACID 1 MG TABLET) 1 mg DAILY PO 02/25/25 09:00 02/26/25 07:40 DC 02/25/25 09:07 Folic Acid (FOLic ACID 1 MG TABLET) 1 mg DAILY PO 02/25/25 09:00 03/27/25 08:59 03/03/25 09:39 Furosemide (LASix 20MG TAB) 20 mg BID@09,17 PO 03/04/25 09:00 04/03/25 08:59 Furosemide (LASix 20MG TAB) 20 mg Q12H PO 03/04/25 09:00 03/03/25 08:54 DC Furosemide (LASix 20MG VIAL) 20 mg Q12H IV 03/03/25 09:00 03/03/25 08:54 DC Furosemide (LASix 20MG VIAL) 20 mg Q12H IV 03/03/25 09:00 03/04/25 08:59 03/03/25 09:40 Furosemide (LASix 40MG VIAL) 40 mg Q12H IV 02/24/25 08:30 02/24/25 10:20 DC 02/24/25 09:34 Furosemide (LASix 40MG VIAL) 40 mg Q8H IV 02/24/25 16:30 02/28/25 09:13 DC 02/28/25 08:26 Glucagon (Glucagon 1mg Kit) 1 mg AD PRN IM HYPOGLYCEMIA PROTOCOL 03/01/25 13:00 03/02/25 15:38 DC Glucagon (Glucagon 1mg Kit) 1 mg AD PRN IM HYPOGLYCEMIA PROTOCOL 03/02/25 15:00 04/01/25 14:59 Heparin Sodium (Porcine) (HEParin 5,000 UNIT VIAL) 5,000 unit BID SQ 02/24/25 09:00 03/02/25 14:57 DC 03/01/25 20:22 Insulin Human Regular 100 unit/ Sodium Chloride 100 ml @ 0 mls/hr AD IV 03/02/25 15:00 03/04/25 14:59 03/02/25 19:17 Ipratropium [place] (AtrovENT UD) 0.5 MG [id number] IH 02/24/25 14:00 03/26/25 13:59 03/03/25 14:20 Lactulose (Constulose 20gm/ 30ml Udcup) 20 gm BID PRN PO CONSTIPATION 03/03/25 09:00 04/02/25 08:59 Linezolid 300 ml @ 150 mls/hr Q12H IV 02/24/25 11:00 03/06/25 10:59 03/03/25 12:25 Magnesium Hydroxide (Milk Of Magnesium 30ml) 30 ml DAILY PRN PO CONSTIPATION 03/03/25 09:00 04/02/25 08:59 Magnesium Sulfate 50 ml @ 12.5 mls/hr AD PRN IV MAG LEVEL LESS THAN 2.0 03/02/25 15:00 04/01/25 14:59 03/03/25 07:09 Magnesium Sulfate 50 ml @ 0 mls/hr PROTOCOL PRN IV low magnesium 02/25/25 11:00 03/02/25 14:57 DC 02/25/25 11:27 Melatonin (Melatonin) 10 mg HS PRN PO INSOMNIA 02/24/25 11:00 03/02/25 14:57 DC 03/01/25 23:53 Metolazone (zarOXOlyn) 5 mg DAILY PO 02/25/25 09:00 03/02/25 14:57 DC 03/01/25 14:49 Metoprolol Tartrate (loprESSOR) 12.5 mg BID PO 03/04/25 09:00 04/03/25 08:59 Montelukast Sodium (SinguLAIR) 10 mg DAILY PO 02/25/25 09:00 03/27/25 08:59 03/03/25 09:40 Morphine Sulfate (morPHINE 2MG SYG) 0.5 mg Q2H PRN IV MODERATE PAIN (4-6) 03/02/25 15:00 03/03/25 14:59 Morphine Sulfate (morPHINE 2MG SYG) 1 mg Q2H PRN IV SEVERE PAIN (7-10) 03/02/25 15:00 03/03/25 14:59 Nitroglycerin/ Dextrose 0 ml @ 0 mls/hr AD IV 03/02/25 15:00 03/05/25 14:59 Norepinephrine Bitartrate 250 ml @ 0 mls/hr AD PRN IV TITRATE 03/02/25 08:30 04/01/25 08:29 Norepinephrine Bitartrate 8 mg/ Dextrose 250 ml @ 0 mls/hr AD PRN IV POST-OP CARDIOVASCULAR ORDERS 03/02/25 15:00 03/02/25 15:16 DC Nystatin (NYSTatin 521484 UNIT/ML 5ML UDCUP) 5 ml QID PO 02/24/25 17:00 03/26/25 16:59 03/03/25 14:05 Ondansetron HCl (zoFRAN 4MG INJ) 4 mg Q6H PRN IV NAUSEA/VOMITING 03/02/25 15:00 04/01/25 14:59 03/03/25 06:11 Ondansetron HCl (zoFRAN 4MG INJ) 4 mg Q6H PRN IVP NAUSEA/VOMITING 02/24/25 21:00 03/02/25 14:57 DC 03/02/25 12:05 Pantoprazole Sodium (PROTonix 40MG INJ) 40 mg DAILY IVP 02/24/25 11:00 03/02/25 14:57 DC 03/02/25 11:54 Pharmacy Profile Note (Lace Assessment) 1 each AD MISC 02/24/25 10:30 02/24/25 10:32 DC Pharmacy Profile Note (Lace Assessment) 1 each AD MISC 02/25/25 15:30 02/25/25 15:17 DC Pharmacy Profile Note (Pharmacy Communication) 1 each ONCE MISC 02/23/25 23:00 02/23/25 23:48 DC Pharmacy Profile Note (Pharmacy Communication) 1 each ONCE MISC 02/25/25 15:30 02/25/25 15:17 DC Piperacillin Sod/ Tazobactam Sod (Zosyn 3.375gm+NS 50ml) 3.375 gm Q8H IV 02/24/25 05:00 03/06/25 04:59 03/03/25 14:04 Potassium Phosphate 250 ml @ 42 mls/hr AD PRN IV LOW PHOS LEVEL 03/02/25 15:00 04/01/25 14:59 03/03/25 09:48 Potassium Chloride 100 ml @ 100 mls/hr AD PRN IV POTASSIUM PROTOCOL 02/25/25 11:00 02/27/25 10:47 DC 02/27/25 08:24 Potassium Chloride 100 ml @ 100 mls/hr AD PRN IV POTASSIUM PROTOCOL 02/25/25 11:00 03/02/25 14:57 DC 03/02/25 11:54 Potassium Chloride 100 ml @ 100 mls/hr AD PRN IV HYPOKALEMIA 03/02/25 15:00 04/01/25 14:59 03/03/25 01:31 Potassium Chloride (K-Dur 10meq Sr Tab) 10 meq AD PRN PO POTASSIUM PROTOCOL 02/27/25 11:00 03/02/25 14:57 DC 03/01/25 05:39 Potassium Chloride (K-Dur/Klor-Con 20meq) 10 meq AD PRN PO POTASSIUM PROTOCOL 02/25/25 11:00 02/27/25 10:48 DC Potassium Chloride (K-Dur/Klor-Con 20meq) 20 meq DAILY PO 03/01/25 09:00 03/02/25 14:57 DC 03/01/25 14:50 Potassium Chloride (KCl 10% Elixir 20meq/15ml) 10 meq AD PRN PO POTASSIUM PROTOCOL 02/25/25 11:00 03/02/25 14:57 DC Propofol 100 ml @ 0 mls/hr AD PRN IV SEDATION 03/02/25 15:00 03/06/25 14:59 Sodium Bicarbonate (Sodium Bicarb 50meq 50ml Vial) 50 meq AD PRN IV OTHER[SEE DOSING INSTRUCTIONS] 03/02/25 15:00 03/05/25 14:59 03/02/25 22:09 Sodium Chloride 500 ml @ 0 mls/hr AD IV 03/02/25 15:00 04/01/25 14:59 03/03/25 01:32 Sodium Chloride 500 ml @ 0 mls/hr Q0M IV 03/03/25 01:30 03/03/25 08:52 DC Sodium Chloride 1,000 ml @ 0 mls/hr Q0M IV 03/02/25 13:00 04/01/25 12:59 Sodium Chloride 1,000 ml @ 10 mls/hr ONCE IV 03/02/25 15:00 03/03/25 14:59 03/02/25 15:00 Sodium Chloride 1,000 ml @ 75 mls/hr [id number] IV 02/23/25 20:00 02/23/25 23:03 DC 02/23/25 20:08 Sodium Chloride 1,000 ml @ 150 mls/hr Q6H40M IV 03/01/25 13:00 03/01/25 15:37 DC 03/01/25 14:50 Sodium Chloride (NS Flush 10ml) 10 ml Q8H PRN IVP IV LINE FLUSH 03/02/25 15:00 04/01/25 14:59 Thiamine HCl (Vitamin B-1) 100 mg DAILY PO 02/25/25 09:00 03/27/25 08:59 03/03/25 09:39 Tramadol HCl (UltRAM) 25 mg Q6H PRN PO MODERATE PAIN (4-6) 03/02/25 15:00 03/02/25 15:33 DC Tramadol HCl (UltRAM) 50 mg Q6H PRN PO SEVERE PAIN (7-10) 03/02/25 15:00 03/02/25 15:39 DC Tramadol HCl (UltRAM) 50 mg Q6H PRN PO MODERATE PAIN (4-6) 03/03/25 03:30 03/08/25 03:29 03/03/25 03:36 Vancomycin HCl (Vancomycin Protocol) 1 each AD IV 02/23/25 19:00 02/23/25 19:33 DC Vasopressin 40 units/Sodium Chloride 40 ml @ 0 mls/hr PROTOCOL IV 03/03/25 01:30 04/02/25 01:29 DIAGNOSTICS / RADIOLOGY: [ ] PATIENT: ADAM MOE III MR#: [id number] : 1980 SEX: M AGE: 44 LOCATION: 2CH ORDER 2300 STATUS: ADM IN REPORT#: [id number] SERVICE 0400 REASON: s/p MICS AVR ORDERING PHYSICIAN: DESIREE GERARDO MD PROCEDURE: CXR1VW - CHEST 1VW CHEST 1VW HISTORY: Valvular replacement COMPARISON: 03/02/2025 FINDINGS: A frontal projection of the chest was obtained. Mild bilateral pulmonary infiltrates are seen may be related to mild pulmonary vascular congestion with possible superimposed pneumonitis. Poststernotomy changes are seen. The heart is enlarged. Degenerative changes of the thoracolumbar spine are present. Endotracheal tube is been removed. All the lines and tubes are again seen in place. No evidence of aortic calcification is seen. IMPRESSION: 1. Mild bilateral pulmonary infiltrates are seen may be related to mild pulmonary vascular congestion with possible superimposed pneumonitis. DICTATED BY: CAROL HOWARD MD DATE: 03/03/25 1001 ELECTRONICALLY SIGNED BY: CAROL HOWARD MD DATE: 03/03/25 1006 PATIENT: ADAM MOE III MR#: [id number] : 1980 SEX: M AGE: 44 LOCATION: 2CV ORDER 1504 STATUS: ADM IN REPORT#: [id number] SERVICE 1700 REASON: s/p MICS AVR ORDERING PHYSICIAN: DESIREE GERARDO MD PROCEDURE: CXR1VW - CHEST 1VW PORTABLE CHEST RADIOGRAPH INDICATION: s/p MICS AVR COMPARISON: 03/02/2025 FINDINGS: traffic monitor specialist leads overlie the field of view. Median sternotomy wires are in appropriate alignment. Tip of Mckenney-Saritha catheter occupies the distal right main pulmonary artery. Pleural mediastinal drainage tubes noted. Endotracheal tube is in appropriate position. Different defibrillator patch projects over the right chest as well as lateral left lower chest. Tip of left PICC remains within the SVC. Heart is enlarged Pulmonary vascularity is enlarged Note evidence for consolidation. No significant pleural effusion noted. No pneumothorax detected. IMPRESSION: Cardiomegaly and pulmonary vascular congestion. DICTATED BY: KIARA PETERSON MD DATE: 03/02/251851 ELECTRONICALLY SIGNED BY: KIARA PETERSON MD DATE: 03/02/25 ASSESSMENT: gram positive bacteremia POA Sepsis, POA Pneumonia, POA Acute hypoxic respiratory failure on CPAP, ABG confirms PO2 less than 60 mmHg, POA Acute on chronic diastolic heart failure with exacerbation POA Acute kidney injury stage II, POA Non ST segment elevated KS, most likely type 2 KS secondary to oxygen ischemic POA ITP, POA Uncontrolled diabetes mellitus type 2, POA Diabetic nephropathy, POA Cocaine, alcohol and tobacco use disorder, POA Fidelina esophagitis, POA Matthews's cyst, hematoma, left knee, POA Electrolyte abnormalities, POA Chronic anemia, POA 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 coli, Klebsiella) pathogens, on Zosyn, Linezolid, Doxycycline Bilateral multifocal pneumonia with superimposed pulmonary edema, improving clinically, likely secondary to endocarditis and fluid overload Acute on chronic kidney injury, Hypokalemia Volume overload secondary to congestive heart failure and valvular disease, on diuresis Chronic normocytic anemia, New-onset diabetes mellitus type 2, poorly controlled, monitor glucose closely Electrolyte imbalance hyponatremia, hypokalemia, hypomagnesemia, on repletion protocol Proteinuria with diabetic nephropathy PLAN: WBC: 15.2 (? from 24.4) improving leukocytosis Neutrophils: 86.8% elevated Hgb/Hct: 8.1 / 23.5 post-transfusion, stable Platelets: Increased after PRPC transfusion K?: 3.3 low Na?: 152 elevated BUN/Cr: 25 / 2.2 BRENDAN stable Phos: 1.9 low Lactic acid: 7.76 (? from 10.35) improving tissue perfusion ABG: pH 7.45, PCO? 40, PO? 106.2, HCO? 21.0 normal oxygenation Coagulation: INR/PT normal; fibrinogen 395 elevated (post-op acute phase) CXR: Cardiomegaly with pulmonary vascular congestion, stable from yesterday Infectious disease: * Continue Zosyn + Linezolid + Doxycycline pending final culture sensitivities * Repeat blood cultures if febrile or WBC rises ID on board Continue IV linezolid q.12h. Continue Zosyn 3.375 g IV q.8h. Continue IV doxycycline 100 mg b.i.d.. Noted blood cultures and sputum cultures. Pulmonary: Critical Care consult has been placed. Supplemental oxygen support, CPAP support and BiPAP setting as necessary to maintain SpO2 levels greater than 92 Budesonide, albuterol ipratropium nebulizations. Monitor ABGs, O2 sats, chest x-ray. Appreciate Pulmonary and critical Care consult suggestions. * Maintain O? via nasal cannula at 1L/min * Wean off as tolerated * Daily chest physiotherapy; monitor ABG Cardiovascular: Continue LasiX Wean off pressers as per ICU protocol until fully hemodynamically weaned Continue telemetry monitoring Monitor for post-op arrhythmia, tamponade, ischemia Daily CXR Close hemodynamic monitoring with machine operator slitter technician troponin, BNP. Continue telemetry monitoring * Proceed with left heart catheterization ? aortic valve replacement * Monitor troponins and BNP; follow-up Echo post-op Renal/metabolic Monitor CR, BUN, GFR. Avoid nephrotoxins. Monitor glucose, proteinuria. Replete potassium, magnesium, phosphorus. for per facility protocol. * Strict I/Os, daily BMP * Replace K?, Mg? per protocol * Hold nephrotoxic meds PRN GI/nutrition Pantoprazole IV daily. Monitor for GI bleeding. Add thiamine, folate multivitamins if chronic alcohol use. Hematology Monitor platelets for ITP versus reactive thrombocytosis. Consider iron studies, B12, reticulocyte count for anemia. Musculoskeletal: Monitor left knee swelling Avoid NSAIDs due to BRENDAN. Ortho referral if worsening. Sedation/neuro: Precedex for sedation, taper as tolerated. Determine at bedtime for sleep hygiene. ICU delirium prevention with 3 orientation, mobility and lytes during the day. Endocrine: Glucose control with insulin. Monitor for ketones and TKA signs. Consider A1c when stable. Substance use: Assess for withdrawal. CIWA protocol p.r.n. if needed. Offered smoking cessation and substance abuse counseling. * Await left heart catheterization * Cardiothoracic surgery consult completed pending OR schedule for AVR * Plan discharge with home O? evaluation, rehab placement Case management consult has been placed for further discharge planning. ATTESTATION BY PHYSICIAN I have seen and examined the patient. I reviewed the documentation, medical decision making, and treatment plan as noted by the mid-level resident above. I agree with the findings and plan of care. Herminio Napoles MD, RAGHAVA R MD Mar 03, 2025 14:56
--- NOTE | 2025-03-03 15:44 | PN ---
INFECTIOUS DISEASE PROGRESS NOTE Date of Service: Mar 03, 2025 SUBJECTIVE: This 44-year-old male patient is being seen today in bedside in the ICU. Awake, alert and oriented x3. patient continues on antibiotics tolerating well. He is status post aortic valve replacement day #1. Under sitting in chair, chest tube noted and draining well. He continues on antibiotics and will continue for a total of 6 weeks. Patient will be followed closely. PHYSICAL EXAM EYES: Anicteric. Pupils equal and reactive. HENT: No oral thrush seen, moist Oral mucosa. NECK: Supple, no JVD or thyromegaly. LUNGS: Oxygen support via nasal cannula as needed. CARDIOVASCULAR: S1, S2 regular. No murmur heard. Chest tube. ABDOMEN: Soft, non tender, bowel sounds present, no organomegaly. CENTRAL NERVOUS SYSTEM: Awake, alert, oriented x 3. SKIN: No rashes, no swelling. Lower extremity edema. LYMPHATICS: No peripheral lymphadenopathy. MUSCULOSKELETAL: No joint swelling, erythema or tenderness. EXTREMITIES: No cyanosis or clubbing. Lower extremities edema. BACK: No deformity, no pressure ulcer. GENITOURINARY: No dysuria or hematuria. SKIN: Surgical incision to his mid chest with dressing in place. Vital Sign (Last 12 Hours) 03/03/25 03/03/25 03/03/25 03/03/25 03:45 04:00 04:00 04:00 Temp 98.1 Pulse 107 105 B/P (MAP) 124/61 (82) 124/60 (81) 154/87 (109) 149/93 (111) Pulse Ox 100 100 100 O2 Delivery Aerosol Mask+ Room Air O2 Flow Rate 10 FiO2 40 21 03/03/25 03/03/25 03/03/25 03/03/25 04:15 04:30 04:45 05:00 Pulse 106 104 104 104 B/P (MAP) 137/68 (91) 119/58 (78) 117/59 (78) 116/61 (79) 156/97 (116) 149/84 (105) 146/90 (108) 143/91 (108) Pulse Ox 100 100 100 100 03/03/25 03/03/25 03/03/25 03/03/25 05:30 06:00 06:47 06:48 Pulse 107 108 103 103 Resp 28 24 18 18 B/P (MAP) 134/73 (93) 121/68 (85) Pulse Ox 98 O2 Delivery N/Cannula Low lpm O2 Flow Rate 1.0 FiO2 24 03/03/25 03/03/25 03/03/25 03/03/25 07:00 07:15 07:30 07:45 Pulse 105 103 106 101 Resp 20 36 34 22 B/P (MAP) 100/57 (71) 102/55 (71) 112/63 (79) 114/64 (81) 142/85 (104) 136/86 (103) 133/99 (110) 109/94 (99) Pulse Ox 100 100 100 100 03/03/25 03/03/25 03/03/25 03/03/25 08:00 08:00 08:15 08:30 Temp 99.0 Pulse 97 109 96 Resp 48 39 26 B/P (MAP) 124/61 (82) 104/57 (73) 125/61 (82) 137/93 (108) 123/94 (104) 150/93 (112) Pulse Ox 100 100 100 100 O2 Delivery Nasal Cannula* Aerosol Mask+ O2 Flow Rate 2 FiO2 N/A 03/03/25 03/03/25 03/03/25 03/03/25 08:45 09:00 09:15 09:30 Pulse 98 97 100 100 Resp 21 22 24 19 B/P (MAP) 128/62 (84) 125/68 (87) 108/94 (99) 130/65 (86) 141/95 (110) 143/94 (110) 150/75 (100) 151/81 (104) Pulse Ox 100 97 98 100 03/03/25 03/03/25 03/03/25 03/03/25 09:45 10:00 10:15 14:22 Pulse 99 97 100 97 Resp 18 25 22 18 B/P (MAP) 131/72 (91) 125/66 (85) 119/62 (81) 155/91 (112) 144/92 (109) 135/78 (97) Pulse Ox 98 100 97 03/03/25 14:22 Pulse 96 Resp 18 O2 Delivery N/A Room Air FiO2 21 Intake & Output (last 24hrs) 03/02/25 03/02/25 03/03/25 15:00 23:00 07:00 Intake Total 0 ml 1716.3 ml 1848.3 ml Output Total 1620 ml 1195 ml Balance 0 ml 96.3 ml 653.3 ml LABS: Laboratory: Test 03/03/25 14:15 03/03/25 03:34 03/03/25 02:33 03/03/25 02:16 Range/Units Whole Blood Glucose 149 H 70-110 MG/DL Blood Gas Specimen Type Arterial Arterial Blood pH 7.450 7.350-7.450 Arterial Blood Partial Pressure CO2 40 35-48 mmHg Arterial Blood Partial Pressure O2 106.2 83.0-108.0 mmHg Arterial Blood HCO3 27.0 21.0-28.0 mmol/L Arterial Blood Oxygen Saturation 97.4 94.0-98.0 % Arterial Blood Base Excess 2.8 -2.0-3.0 mmol/L Hemoglobin (Blood Gas) 8.3 L 13.5-17.5 g/dL Sodium (Blood Gas) 146 H 136-145 MMOL/L Bedside Potassium (Blood Gas) 3.7 3.4-4.5 MMOL/L Bedside Chloride (Blood Gas) 106 98-107 MMOL/L Bedside Glucose (Blood Gas) 122 H 65-95 MG/DL Bedside Ionized Calcium (Blood Gas) 1.24 1.15-1.33 MMOL/L Bedside Lactic Acid (Blood Gas) 7.76 *H 0.36-0.75 MMOL/L Blood Gas Temperature 37.0 35.5-37.0 CELSIUS Blood Gas Flow-by 10.00 0.00-15.00 L/min Blood Gas Vent Mode AM ROOM AIR FiO2 40.0 % Blood Gas Specimen Comment GRACIE WAYNE White Blood Count 15.2 #H 4.8-10.8 K/uL Red Blood Count 2.65 L 4.50-6.20 MIL/uL Hemoglobin 8.1 L 14.0-18.0 g/dL Hematocrit 23.5 L 42-54 % Mean Corpuscular Volume 88.7 79-99 fL Mean Corpuscular Hemoglobin 30.6 27.0-33.0 pg Mean Corpuscular Hemoglobin Concent 34.5 32.0-36.0 g/dL Red Cell Distribution Width 16.0 H 11.0-15.5 % Platelet Count 146 130-400 K/uL Mean Platelet Volume 9.4 7.5-10.5 fL Immature Granulocyte % (Auto) 0.4 0-1 % Neutrophils (%) (Auto) 86.8 H 40.0-77.0 % Lymphocytes (%) (Auto) 4.7 L 21.0-51.0 % Monocytes (%) (Auto) 7.6 3.0-13.0 % Eosinophils (%) (Auto) 0.1 0.0-8.0 % Basophils (%) (Auto) 0.4 0.0-5.0 % Neutrophils # (Auto) 13.2 H 1.8-7.7 K/uL Lymphocytes # (Auto) 0.7 L 1.0-4.8 K/uL Monocytes # (Auto) 1.2 H 0.1-1.0 K/uL Eosinophils # (Auto) 0.01 0.00-0.70 K/uL Basophils # (Auto) 0.06 0.00-0.20 K/uL Absolute Immature Granulocyte (auto 0.06 0-1 K/uL Nucleated Red Blood Cells 0.0 0.0-0.19 % Prothrombin Time 11.4 9.6-11.6 SEC Prothromb Time International Ratio 1.08 0.85-1.15 Activated Partial Thromboplast Time 28.8 26.3-35.5 SEC Sodium Level 152 H 136-145 mmol/L Potassium Level 3.7 3.5-5.1 mmol/L Chloride Level 108 101-111 mmol/L Carbon Dioxide Level 28 21-32 mmol/L Blood Urea Nitrogen 25 H 7-18 mg/dL Creatinine 2.2 H 0.5-1.3 mg/dL Glomerular Filtration Rate Calc 37 >90 mL/min Random Glucose 147 H 70-105 mg/dL Lactic Acid Level 10.7 H 0.8-2.5 mmol/L Total Calcium 9.4 8.5-10.1 mg/dL Ionized Calcium 1.17 1.16-1.32 MMOL/L Phosphorus Level 1.9 #L 2.5-4.9 mg/dL Magnesium Level 1.90 1.80-2.40 mg/dL Total Bilirubin 1.3 H 0.2-1.0 mg/dL Aspartate Amino Transf (AST/SGOT) 24 10-37 U/L Alanine Aminotransferase (ALT/SGPT) 10 L 12-78 U/L Alkaline Phosphatase 56 50-136 U/L Total Protein 5.5 L 6.0-8.3 g/dL Albumin 2.7 L 3.5-5.0 g/dL Blood Gas Respiration Rate 4.0 min. Blood Gas Tidal Volume 750 ml Blood Gas PEEP 5 cm H2O Test 03/02/25 23:43 03/02/25 03:12 Range/Units Segmented Neutrophils % 90 H 40-70 % Lymphocytes % (Manual) 2 L 22-44 % Monocytes % (Manual) 8 2-9 % Differential Comment MANUAL DIFFERENTIAL White Cell Morphology Comment SLIDE REVIEWED Platelet Morphology Comment ADEQUATE Red Blood Cell Morphology See comments Fibrinogen 359 H 180-350 mg/dL Hemoglobin A1c 5.5 4.0-6.0 % Estimated Average Glucose (eAG) 111 70-126 mg/dL B-Type Natriuretic Peptide 1420 H 0-100 pg/mL Triglycerides Level 137 30-200 mg/dL Cholesterol Level 136 # <200 mg/dL LDL Cholesterol 80 0-99 mg/dL HDL Cholesterol 40 29-71 mg/dL Vitamin B12 Level 728 193-986 pg/mL ASSESSMENT: Gram-positive Bacteremia. Aortic valve Endocarditis with aortic insufficiency, s/p heart catheterization.. Bacterial Pneumonia. Leukocytosis, resolving. Acute on chronic diastolic heart failure. Acute on chronic renal failure. Morbid obesity. Hypoxic respiratory failure, requiring oxygen support. Anemia. Hypokalemia. s/p aortic valve replacement PLAN: Continue linezolid IV. Continue Zosyn IV. Continue doxycycline. Continue diuretics. Continue oxygen support. Continue pain management. Avoid nephrotoxic medications. Continue critical care support This case was reviewed and discussed with my supervising physician and the above assessment and plan was formulated and agreed upon. PILO ROGEL DUCT LAYER SUPERVISOR Mar 03, 2025 15:44
[2025-03-03 21:56] LABS: POTASSIUM 4.5 mmol/L (3.5-5.1)
[2025-03-04] VITALS (45 sets, daily range): BP systolic 3–171; BP diastolic 3–105; PULSE 86–126; RESP 13–32; TEMP 97.1–98.3; O2SAT 95–100
[2025-03-04 06:14] LABS: MEAN CORPUSCULAR HEMOGLOBIN 30.9 pg (27.0-33.0); MEAN CORPUSCULAR HGB CONC 34.6 g/dL (32.0-36.0); MEAN CORPUSCULAR VOLUME 89.1 fL (79-99); RED BLOOD CELL COUNT(AUTO) 2.3 MIL/uL (4.50-6.20); RED CELL DISTRIBUTION WIDTH 16.9 % (11.0-15.5); WHITE BLOOD COUNT (AUTO) 11.6 K/uL (4.8-10.8)
[2025-03-04 06:29] LABS: CREATININE 1.9 mg/dL (0.5-1.3); POTASSIUM 4.4 mmol/L (3.5-5.1)
[2025-03-04 06:42] LABS: HEMATOCRIT 20.5 % (42-54)
[2025-03-04] MEDS ORDERED: furoSEMIDE 20 MG TABLET PO SCH (09:00)
--- NOTE | 2025-03-04 09:07 | HMCIMG ---
Exam Type: CHEST 1VW Clinical Information: s/p MICS AVR Comparison: None Findings: Pulmonary pattern is as before. No worrisome interval changes have taken place. Impression: Stable exam.
--- NOTE | 2025-03-04 09:08 | PN ---
[facility] PROGRESS NOTE Date Patient Seen: Mar 04, 2025 Time of Visit: 09:01 Supervising Physician: [Dr. Nair] Primary Care Physician: Self Referral MD Outpatient Specialists: Inpatient Consults: Dr Dumont PROBLEM LIST: - Acute Hypoxic respiratory failure POA requiring NIV -Acute on chronic diastolic heart failure w/ EF 50-55% on 2 D echo POA - Aortica Valvular vegetation present 1.4cm -Severe Aortic regurgitation Severe multifocal bilateral Bacterial Pneumonia SCAP score 20 Points, sputum culture positive for E coli and Klebsiella -Bilateral Pleural Effusions POA -Acute Cystitis POA -Normocytic anemia -Acute on chronic CKD stage IIIb -Fidelina esophagitis identified on EGD done 01/11/2025 -Bacterial endocarditis affecting the aortic valve (1.81x1.17 cm mass attached to the noncoronary cusp leaflet) identified on DRAKE done 01/11/2025 -Left atrial appendage thrombus identified on DRAKE done 01/11/2025 -Elevated troponin (type II [place]) -thrombocytosis -Liver cirrhosis MELD Score 22 Points ( 19.6 % Estimated 3 month Mortality) -cholelithiasis -Esophagitis by EGD 01/11/2025 -CAD s/p PCI with IA Integrilin, aspiration thrombectomy, PTCA, and KISHORE placement (Promus 4.0x16 mm) in the proximal LAD done on 12/19/2015 -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 he is hemodynamically stable with a blood pressure of 125/51, heart rate in the 80s respiratory rate of 24 unlabored saturating 95% on5 L via nasal cannula. Urine output 1.7 L in the last 24 hours. WBCs 16.3 H&H 7.2/31.7 Platelet count of 443 K. chemistry potassium 3.4 chloride of 99 carbon pyoblwi23 BUN creatinine 2.1 GFR of 39 glucose 106 lactic acid of 2.8 trending down total calcium 8.4 and albumin of 1.60. Sensitive troponin of 404 with previously be in 258. Respiratory culture growing Gram-negative rods and Gram-positive rods. CV surgeon has been consulted per Cardiology for aortic endocarditis severe aortic regurgitation. We will continue to follow cardiology recommendations and for now patient may downgrade from ICU. 02/28 Patient's repeat echocardiogram shows persistent aortic valvular mass. His sputum culture positive for E coli and Klebsiella. Labs show improved WBC. Patient to continue on IV antibiotics per ID recommendations. He will undergo LHC with possible PCI today per cardiology and plan for aortic valve replacement per CTS afterwards once stabilized. He is now weaned off to room air. 03/01 Vitals are reviewed and within normal limits, T-max 97.3. Patient continues with significant swelling, currently on Bumex drip and metolazone. Has 300ml of urine output overnight. Continues on antibiotics for E coli and Klebsiella on sputum culture. Patient's LHC was postponed yesterday due to scheduling conflict, is pending for today with Dr. Kameron Hilario. 03/02 patient is status post LHC yesterday by Dr. Hilario with findings of normal coronary anatomy and mild non-obstructive CAD. Vitals reviewed and within normal limits with T-max 97.9. He continues on supplemental oxygen with 2 L NC. CBC is grossly unremarkable. CMP shows persistently elevated creatinine at 2.1, relatively unchanged. Continues on bumex drip, has 800ml of urine output overnight. His ABG this morning shows borderline respiratory alkalosis. Blood cultures remain negative, sputum culture positive. Continues on antibiotics per ID. He is pending AVR this AM. 03/03 patient is status post AVR yesterday. He is currently sitting up in chair at bedside. He is in mild distress with tachycardia and tachypnea. Continues on nebulizer treatments. Blood pressure is within normal limits, continues on supplemental oxygen with 1 L. He has been diuresing well with 2595 mL of urine output overnight. White blood count remains elevated but improved to 15., blood cultures remained negative. Lactic acid is downtrending, continues on IV antibiotics per ID. CXR shows diffuse bilateral pulmonary infiltrates consistent with edema, continues on diuretics. Currently on low-dose vasopressin and epinephrine, hemodynamically stable. 03/04 patient is evaluated at bedside. He is feeling short of breath but has been weaned off supplemental oxygen to room air with O2 sats in high 90s. Continues with p.o. Lasix with 2320 mL of urine output overnight. Chest tube output with 510 mL overnight and a total of 850 cc per container. Pending repeat CXR today. WBCs are improved to 11, hemoglobin is 7.1. Patient does appear pale at bedside, we will administer one PRBC. Creatinine remains elevated but improved to 1.9. Repeat blood culture results negative. REVIEW OF SYSTEMS: 12 point ROS reviewed with patient. Pertinent positives mentioned above. Otherwise negative. PHYSICAL EXAM: GENERAL: alert, weak, awake oriented x 3, in mild respiratory distress on room a ir, facial pallor HEENT: EOMI, Sclera non icteric, moist mucosa NECK: Supple, no JVD, trachea midline LUNGS: Crackles breath sounds bilaterally. No wheezes HEART: Regular rate and rhythm. Normal S1 and S2, without murmurs ABD: Obese Abdomen soft, nontender. Bowel sounds present EXT: No clubbing cyanosis 2+ bilateral lower extremity edema NEURO: Alert and oriented to person, follows commands Vital Signs (last 8hr) Date Time Temp Pulse Resp B/P (MAP) Pulse Ox O2 Delivery O2 Flow Rate FiO2 03/04/25 08:00 97.2 03/04/25 06:42 96 18 N/A Room Air 21 03/04/25 06:37 96 17 03/04/25 06:00 126 3/3 (3) 67 03/04/25 05:45 102 117/62 (80) 90 135/77 (96) 03/04/25 05:30 102 17 118/65 (82) 91 142/83 (102) 03/04/25 05:15 104 23 116/64 (81) 89 155/101 (119) 03/04/25 05:00 103 22 121/63 (82) 91 153/89 (110) 03/04/25 04:45 105 13 108/61 (77) 90 148/83 (104) 03/04/25 04:30 102 23 114/61 (78) 89 171/99 (123) 03/04/25 04:15 102 18 111/60 (77) 92 149/97 (114) 03/04/25 04:00 103 19 109/60 (76) 93 151/99 (116) 03/04/25 04:00 97.3 03/04/25 04:00 95 Room Air* 0 N/A Aerosol Mask+ 03/04/25 03:45 102 19 111/60 (77) 93 141/97 (112) 03/04/25 03:30 104 25 105/57 (73) 93 123/74 (90) 03/04/25 03:00 103 26 119/63 (81) 95 152/93 (112) 03/04/25 02:45 102 22 117/61 (79) 94 160/97 (118) 03/04/25 02:30 102 21 126/65 (85) 97 158/96 (116) 03/04/25 02:15 101 18 123/63 (83) 96 158/105 (122) 03/04/25 02:00 103 22 122/63 (82) 96 165/96 (119) 03/04/25 01:45 102 23 120/67 (84) 96 148/96 (113) 03/04/25 01:30 102 18 124/63 (83) 98 141/86 (104) LABS: Hematology Labs: Test 03/04/25 05:59 03/03/25 02:33 03/02/25 23:43 Range/Units White Blood Count 11.6 H 4.8-10.8 K/uL Red Blood Count 2.30 L 4.50-6.20 MIL/uL Hemoglobin 7.1 L 14.0-18.0 g/dL Hematocrit 20.5 *L 42-54 % Mean Corpuscular Volume 89.1 79-99 fL Mean Corpuscular Hemoglobin 30.9 27.0-33.0 pg Mean Corpuscular Hemoglobin Concent 34.6 32.0-36.0 g/dL Red Cell Distribution Width 16.9 H 11.0-15.5 % Platelet Count 92 #L 130-400 K/uL Mean Platelet Volume 10.4 7.5-10.5 fL Nucleated Red Blood Cells 0.0 0.0-0.19 % Immature Granulocyte % (Auto) 0.4 0-1 % Neutrophils (%) (Auto) 86.8 H 40.0-77.0 % Lymphocytes (%) (Auto) 4.7 L 21.0-51.0 % Monocytes (%) (Auto) 7.6 3.0-13.0 % Eosinophils (%) (Auto) 0.1 0.0-8.0 % Basophils (%) (Auto) 0.4 0.0-5.0 % Neutrophils # (Auto) 13.2 H 1.8-7.7 K/uL Lymphocytes # (Auto) 0.7 L 1.0-4.8 K/uL Monocytes # (Auto) 1.2 H 0.1-1.0 K/uL Eosinophils # (Auto) 0.01 0.00-0.70 K/uL Basophils # (Auto) 0.06 0.00-0.20 K/uL Absolute Immature Granulocyte (auto 0.06 0-1 K/uL Segmented Neutrophils % 90 H 40-70 % Lymphocytes % (Manual) 2 L 22-44 % Monocytes % (Manual) 8 2-9 % Differential Comment MANUAL DIFFERENTIAL White Cell Morphology Comment SLIDE REVIEWED Platelet Morphology Comment ADEQUATE Red Blood Cell Morphology See comments Chemistry Labs: Test 03/04/25 05:59 03/03/25 21:36 03/03/25 21:30 03/03/25 02:33 Range/Units Sodium Level 142 136-145 mmol/L Potassium Level 4.4 3.5-5.1 mmol/L Chloride Level 105 101-111 mmol/L Carbon Dioxide Level 33 H 21-32 mmol/L Blood Urea Nitrogen 26 H 7-18 mg/dL Creatinine 1.9 H 0.5-1.3 mg/dL Glomerular Filtration Rate Calc 44 >90 mL/min Random Glucose 152 H 70-105 mg/dL Total Calcium 9.2 8.5-10.1 mg/dL Whole Blood Glucose 154 H 70-110 MG/DL Magnesium Level 2.00 1.80-2.40 mg/dL Lactic Acid Level 10.7 H 0.8-2.5 mmol/L Ionized Calcium 1.17 1.16-1.32 MMOL/L Phosphorus Level 1.9 #L 2.5-4.9 mg/dL Total Bilirubin 1.3 H 0.2-1.0 mg/dL Aspartate Amino Transf (AST/SGOT) 24 10-37 U/L Alanine Aminotransferase (ALT/SGPT) 10 L 12-78 U/L Alkaline Phosphatase 56 50-136 U/L Total Protein 5.5 L 6.0-8.3 g/dL Albumin 2.7 L 3.5-5.0 g/dL Coagulation Labs: Test 03/03/25 02:33 03/02/25 23:43 Range/Units Prothrombin Time 11.4 9.6-11.6 SEC Prothromb Time International Ratio 1.08 0.85-1.15 Activated Partial Thromboplast Time 28.8 26.3-35.5 SEC Fibrinogen 359 H 180-350 mg/dL DIAGNOSTICS / RADIOLOGY RESULTS: [CXR-with persistent pulmonary edema] PLAN Administer 1PRBC Pending repeat CXR Continue diuretics with PO lasix Monitor urine output, chest tube output Lovenox for DVT ppx once CT removed and cleared by CTS IV antibiotics per ID Wean off oxygen as tolerated OOB to chair PT when appropriate Disposition ICU NEURO: Minimize central acting medications as possible. Fall Precautions. Well lighted room through the day and minimize interruptions through the night to prevent acute delirium. PULMONARY: Supplemental 02 as needed Titrate Fio2 to keep Spo2 > or = 90% DuoNebs and CPT as needed IS hourly while awake for pulmonary hygiene Out of bed to chair as tolerated CARDIOVASCULAR: Follow hemodynamics. Titrate vasopressor to keep MAP >65 or systolic blood pressure >95mmHg LINES: [ ]PIV GI & NUTRITION: Continue nutritional support Aspirations precautions Prokinetic agents and laxatives as needed KIDNEYS & ELECTROLYTES: Strict monitoring of intake and output Daily weights Avoid nephrotoxic agents Monitor electrolytes and replace as needed Goal urine output of 30mL/hr or 0.5mL/kg/hr Urine output: [ ] Fluid Balance: [ ] ENDOCRINE: Maintain blood glucose between 100-180 at all times. Insulin sliding scale for blood glucose management INFECTIOUS DISEASE: Trend temperature. Mccormack-culture if febrile. Micro: [ ] Antibiotics: [ ] HEMATOLOGY & COAGULATION: Monitor H&H. Keep Hgb > 7 Transfuse 1 unit of PRBC for Hgb < 7 Transfuse 1 pack of platelets of platelets < 20, 000 Watch for any signs and symptoms of bleeding SKIN: Pressure ulcer prevention per facility protocol Rehab: PT/OT Prophylaxis: GI: [ ] Protonix DVT: Heparin Code Status: Full Resuscitation Disposition: May downgrade to PCCU Other: Total patient care time exceeds 52 minutes excluding all procedures. Case was discussed and seen with my supervising physician. The above plan was formulated and agreed upon. KIT RETANA Mar 04, 2025 09:08
[2025-03-04] MEDS: metoPROLOL tartRATE 25 MG TAB PO SCH (10:43)
[2025-03-04] MEDS: furoSEMIDE 20 MG TABLET PO SCH (10:43)
--- NOTE | 2025-03-04 10:47 | PN ---
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 He had a hospital admission in December 2024 secondary to MSSA sepsis with bacterial endocarditis and evidence of left atrial appendage thrombus. He was treated with Eliquis 5 mg twice daily for LAD a thrombus, however this was discontinued during his last hospitalization due to left lower extremity hematoma. He was receiving IV antibiotics in the emergency department. He was readmitted 02/23/2025 due to acute diastolic heart failure exacerbation and symptomatic aortic valve insufficiency. He underwent echocardiogram 02/24/2025 which revealed an ejection fraction 50-55%, severely dilated left ventricle, normal-sized left atrium, severe aortic valve insufficiency, aortic valve vegetation 1.4 cm and mild mitral valve regurgitation. He underwent left heart catheterization 03/01/2025 which revealed mild nonobstructive coronary artery disease with 20-30% stenosis with the proximal LAD with a patent proximal LAD stent and 20-30% proximal and distal stenosis of the RCA. He is status post surgical aortic valve replacement with bioprosthetic valve 03/02/2025. He was transfused multiple blood products intraoperatively. Sputum culture performed 02/16/2025 shows E coli and Klebsiella aerogenes. Blood culture 02/23/2025 showed micrococcus and related speech she is in one of two sets. Repeat blood cultures on 02/26/2025 and 02/27/2025 has been negative after five days. He has a chest tube in place currently with 840 cc of drainage. He is in sinus rhythm/sinus tachycardia with heart rates in the 90s to 100s. His most recent blood pressure is 135/77. He reports some nausea this morning but otherwise denies chest pain, dizziness, shortness of breath. On exam, he is in no acute distress, regular rate and rhythm, lungs are clear to auscultation bilaterally, no lower extremity edema is noted. Assessment: 1. Symptomatic aortic valve insufficiency. 2. Bacterial endocarditis. 3. Status post bioprosthetic aortic valve replacement 03/02/2025. 4. Left atrial appendage thrombus. 5. Preserved LV systolic function. 6. Sinus tachycardia. 7. Coronary artery disease with stenting of the proximal LAD in 2016. 8. 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 9. History of alcohol and cocaine abuse. Plan: 1. He presented with severe symptomatic aortic valve insufficiency in the setting of bacterial endocarditis. He is status post bioprosthetic aortic valve replacement 03/02/2025. Continue aspirin 81 mg once daily. 2. He has a known left atrial appendage thrombus and was previously on anticoagulation with Eliquis during his last admission. Eliquis was held due to left lower extremity hematoma. He will require anticoagulation due to the presence of the left atrial appendage thrombus. We will start Lovenox once he is cleared by CT surgery and the chest tube has been removed. 3. He has baseline sinus tachycardia with heart rates in the 90s to 100s. Start metoprolol tartrate 12.5 mg twice daily. 4. Continue IV furosemide 20 mg every 12 hours. 5. Continue IV antibiotics. 6. We will follow the patient. Vitals/Labs Vital Signs Date Time Temp Pulse Resp B/P (MAP) Pulse Ox O2 Delivery O2 Flow Rate FiO2 03/04/25 09:00 95 18 147/77 (100) 99 03/04/25 08:30 Room Air* 0 N/A Aerosol Mask+ 03/04/25 08:00 97.2 Laboratory Tests 03/03/25 21:30 03/04/25 05:59 HAMZAH CURIEL Mar 04, 2025 10:47
[2025-03-04 15:29] LABS: HEMATOCRIT 24.5 % (42-54)
--- NOTE | 2025-03-04 17:15 | PN ---
[facility] PROGRESS NOTE Date of Service: Mar 04, 2025 Time of Service: 17:07 SUBJECTIVE: [ HPI : 54-year-old male with a complex medical history including recent hospitalization with a Gram-positive bacteremia secondary to Staph aureus, severe sepsis and endocarditis with echogenic vegetations on noncoronary cusps and right coronary cusp as well as left atrial appendage clot on January 11, 2025 presented to the ED days history of worsening shortness of breath. He was discharged on January 31, 2025 with long-term IV linezolid via PICC line for infective endocarditis. Since 3 days he reports progressive dyspnea, worsened acutely today. He denies chest pain but notes fatigue and exertional intolerance. There is no reported fever or chills. He was in mild respiratory distress on arrival. Notably has a past medical history of Fidelina esophagitis, uncontrolled diabetes mellitus type 2 BRENDAN, immune thrombocytopenic purpura, UTI Klebsiella and substance abuse with cocaine alcohol and tobacco. So on physical examination he is positive for shortness of breaths and cough no hemoptysis. His lungs have expiratory wheezes and diffuse crackling bilaterally. He is tachycardic with regular rhythm. His WBC count is at 18, hemoglobin at 10.5 and platelet count at 470 K with leukocytosis chronic anemia and thrombocytosis, chemistry is with creatinine showing 2.2, BUN at and CO2 at 18.2 magnesium low consistent with BRENDAN, electrolyte derangements. His arterial blood gas analysis reveals a pH of 7.469, PaCO2 of 26, PO2 of 54.6, HC03 of 18.2 and saturation of 90.2 Representing acute hypoxic respiratory failure with respiratory alkalosis. Serum lactate is elevated at 3.6 persistent lactic acidosis. BNP is at 2410 suggesting cardiac strain or volume overload. And troponin is elevated at [address] segment elevated FL. and urine analysis positive concerning for UTI and nephropathy due to positive hyaline casts. Chest x-ray reveals diffuse bilateral opacities consistent with pneumonia and chest CT scan reveals bilateral pleural effusion bilateral ground-glass pulmonary infiltrates are seen renal ultrasound reveals no hydronephrosis. And a CT scan also revealed gallstone. Echo is ordered to assess vegetations, LA clot and EF. Lower extremity Doppler revealed no DVT, Matthews's cyst versus hematoma in the left knee. EGD from prior history Fidelina esophagitis. The patient is admitted to ICU with the critical Care and Cardiology and Infectious Disease consult has been placed for further management currently on Precedex drip and CPAP setting with tidal volume of 657 and a rate of 36 and PIP of15 and ve of 23.2. Furosemide 40 q.12h is added in addition to his antibiotics monitoring the patient closely and discuss the goal of care with the patient and he agreed upon with it. 02/25/2025. Patient seen and examined along with RN. Feels better , breathing has improved. Continues to be on IV Lasix and metolazone was added. Cardiology and critical Care on board CT surgery was consulted for severe aortic regurgitation.] 02/26/25 review production tester's note in detail. CT surgery was consulted regarding to his severe AI. Patient continues with diuretics in IV antibiotics. No fevers denies chest pain. 02/27/25 44-year-old male with a complex medical history including infective endocard itis, severe aortic insufficiency, CHF, BRENDAN, diabetic nephropathy, bilateral pneumonia, and recent gram-negative sepsis, is clinically improving. The patient reports that shortness of breath has been improving slowly over the past 48 hours. He currently denies chest pain, fever, or chills. He is tolerating medications and oral intake well. He remains on low-flow oxygen at 1L via nasal cannula, saturating well at 98%, ambulating to the chair with mild fatigue but no acute respiratory distress. No complaints of palpitations or dizziness. He is aware of the upcoming left heart catheterization and understands the indication for aortic valve replacement surgery. No family was present during bedside examination WBC: 11.7 (? from 13.2) improving leukocytosis February 28 2025 44-year-old male with severe chip[place] aortic valve insufficiency, bacterial endocarditis, and worsening pulmonary congestion, was upgraded to PCCU today due to clinical and radiographic deterioration. He remains dyspneic and hypoxic despite low-flow oxygen support. He reports difficulty breathing, especially in the supine position, and has been unable to tolerate lying flat due to severe orthopnea. He feels increasingly fatigued, lightheaded, and weak. Denies chest pain, fevers, chills, or palpitations. He is aware of his pending left heart catheterization and the need for aortic valve replacement surgery and verbalizes continued understanding and consent March 01 2025 The patient was examined at bedside this morning. He remains alert and oriented, and in no acute distress while sitting up. He reports increased shortness of breath when lying back or attempting to sleep supine, consistent with severe orthopnea, though otherwise states that he is feeling okay. He is NPO for the planned left heart catheterization scheduled for today as part of the workup for severe chip[place]-cree aortic insufficiency with large vegetation and worsening decompensated heart failure. He has no new complaints of chest pain, fever, chills, nausea, or dizziness. He verbalizes understanding of the planned cardiac intervention and its associated risks, including contrast use, bleeding, arrhythmia, and need for surgical valve replacement afterward. March 02 2025 The patient was evaluated at bedside this morning. He was found sitting upright, hemodynamically stable, alert, and oriented. He reports no acute complaints at this time, denies chest pain, palpitations, nausea, or dizziness. He remains on 2L O? via nasal cannula, comfortable at rest, and is awaiting surgical intervention today for severe aortic valve regurgitation. The patient underwent left and right heart catheterization yesterday which revea led normal coronary anatomy with mild non-obstructive CAD. Cardiology has cleared the patient for surgical aortic valve repair. He has been informed of the risks and benefits of the procedure and has provided informed consent. His oxygen saturation and hemodynamics remain stable. He denies orthopnea today. 03/03/25 The patient was examined at bedside this morning, currently Post-Operative Day 1 following successful aortic valve replacement for chippewa-cree valve endocarditis. He is sitting upright in bed, alert and oriented, and reports that he is doing okay overall. He denies shortness of breath or chest discomfort but reports moderate incisional pain, well controlled with PRN Tylenol and tramadol. He reports mild fatigue but no nausea, dizziness, palpitations, or changes in vision. He is tolerating clear liquids. He has been out of bed to chair. No major overnight events noted. 03/04/25 Patient is evaluated at bedside this morning on postoperative day2 following bioprosthetic AV valve replacement for chip[place]-cree valve infective endocarditis with severe regurgitation. He appears clinically improved. He denies chest pain, shortness of breath, dizziness, nausea, vomiting or other acute complaints. He reports mild fatigue and incisional pain, which is well controlled with acetaminophen p.r.n.. He is now breathing comfortably on room air, requiring no supplemental O2 and weaned off all vasopressors and inotropes. Appetite has improved. No complaints of orthopnea or PND. He continues to void adequately, although noted to have some postop anemia and mild thrombocytopenia. He is aware of ongoing recovery and upcoming transfusion today for symptomatic anemia. He has pain sitting up in the recliner. REVIEW OF SYSTEMS CONSTITUTIONAL: Positive for fatigue, mild subjective fever. NEUROLOGICAL: Denies headache, amaurosis fugax, motor weakness, sensory defici t, vertigo/spinning sensation, gait abnormalities, or tremors. ENT: No hearing loss, otalgia, otorrhea, rhinitis, rhinorrhea, hoarseness, or sore throat. CARDIOVASCULAR: Palpitations, no angina. PULMONARY: Shortness of breath, cough, no hemoptysis. SLEEP: Denies morning headaches, daytime somnolence or napping. Denies difficulty falling asleep, staying asleep, waking from sleep. Denies knowledge of snoring. GASTROINTESTINAL: Denies any type of dysphagia to either liquids or solids. Denies nausea, vomiting, pyrosis, early satiety, abdominal pain, diarrhea, constipation, or changes in stool consistency or caliber. Denies coffee-ground emesis, hematemesis, hematochezia, or melanotic stools. GENITOURINARY: Denies frequency, urgency, nocturia, hematuria or incontinence (Storage/Irritative symptoms.) Low urinary stream, straining to void, urinary intermittency or hesitancy, splitting of the voiding stream, terminal dribbling. ENDOCRINOLOGIC: Denies polyuria, polydipsia, polyphagia or heat/cold intoler ances. HEMATOLOGIC: Denies thrombophilia/previous clots, or coagulopathy/bleeding disorders. ONCOLOGIC: Denies personal history of malignancy. DERMATOLOGIC: Denies rashes or pruritus. PSYCHIATRIC: Denies any suicidal or homicidal ideation. Denies hallucinations. PHYSICAL EXAM GENERAL APPEARANCE ill appearing, alert, mildly agitated, in moderate respiratory distress. NEUROLOGICAL: Cranial nerves II-XII grossly intact. Motor is 5/5 in bilateral upper and lower extremities proximal to distal. No sensory deficits. HEENT: Face is symmetric. Pupils are equal and reactive. Extraocular movements are intact. NECK: Supple. No JVD. No thyromegaly. No submental, submandibular, pre- /postauricular, occipital or supraclavicular lymphadenopathy. CHEST: Normal chest expansion. No Telemetry. LUNGS: Expiratory wheeze and diffuse crackles bilaterally CARDIOVASCULAR: Regular. S1 and S2 normal. No appreciable rubs, murmurs or gallops. Tachycardia present ABDOMEN: Soft, nontender, and nondistended. There is no rebound, voluntary guarding, or rigidity. : Deferred. No Ortega. EXTREMITIES: Bilateral 2+ pitting edema, left knee warm swollen, limited ROM and pitting edema more on the left compared to right. SKIN: No skin breakdown. Vital Signs (last 8hr) Date Time Temp Pulse Resp B/P (MAP) Pulse Ox O2 Delivery O2 Flow Rate FiO2 03/04/25 13:00 91 25 146/81 (102) 99 03/04/25 12:00 97.9 03/04/25 12:00 97.9 88 25 145/79 (101) 98 03/04/25 11:55 99 Room Air* 0 N/A Aerosol Mask+ 03/04/25 11:00 98 26 160/87 (111) 99 03/04/25 10:00 94 26 151/82 (105) 100 LABS: Laboratory: Test 03/04/25 15:15 03/04/25 05:59 03/03/25 21:36 03/03/25 21:30 Range/Units Hemoglobin 8.5 L 14.0-18.0 g/dL Hematocrit 24.5 L 42-54 % White Blood Count 11.6 H 4.8-10.8 K/uL Red Blood Count 2.30 L 4.50-6.20 MIL/uL Mean Corpuscular Volume 89.1 79-99 fL Mean Corpuscular Hemoglobin 30.9 27.0-33.0 pg Mean Corpuscular Hemoglobin Concent 34.6 32.0-36.0 g/dL Red Cell Distribution Width 16.9 H 11.0-15.5 % Platelet Count 92 #L 130-400 K/uL Mean Platelet Volume 10.4 7.5-10.5 fL Nucleated Red Blood Cells 0.0 0.0-0.19 % Sodium Level 142 136-145 mmol/L Potassium Level 4.4 3.5-5.1 mmol/L Chloride Level 105 101-111 mmol/L Carbon Dioxide Level 33 H 21-32 mmol/L Blood Urea Nitrogen 26 H 7-18 mg/dL Creatinine 1.9 H 0.5-1.3 mg/dL Glomerular Filtration Rate Calc 44 >90 mL/min Random Glucose 152 H 70-105 mg/dL Total Calcium 9.2 8.5-10.1 mg/dL Whole Blood Glucose 154 H 70-110 MG/DL Magnesium Level 2.00 1.80-2.40 mg/dL Test 03/03/25 03:34 03/03/25 02:33 03/03/25 02:16 03/02/25 23:43 Range/Units Blood Gas Specimen Type Arterial Arterial Blood pH 7.450 7.350-7.450 Arterial Blood Partial Pressure CO2 40 35-48 mmHg Arterial Blood Partial Pressure O2 106.2 83.0-108.0 mmHg Arterial Blood HCO3 27.0 21.0-28.0 mmol/L Arterial Blood Oxygen Saturation 97.4 94.0-98.0 % Arterial Blood Base Excess 2.8 -2.0-3.0 mmol/L Hemoglobin (Blood Gas) 8.3 L 13.5-17.5 g/dL Sodium (Blood Gas) 146 H 136-145 MMOL/L Bedside Potassium (Blood Gas) 3.7 3.4-4.5 MMOL/L Bedside Chloride (Blood Gas) 106 98-107 MMOL/L Bedside Glucose (Blood Gas) 122 H 65-95 MG/DL Bedside Ionized Calcium (Blood Gas) 1.24 1.15-1.33 MMOL/L Bedside Lactic Acid (Blood Gas) 7.76 *H 0.36-0.75 MMOL/L Blood Gas Temperature 37.0 35.5-37.0 CELSIUS Blood Gas Flow-by 10.00 0.00-15.00 L/min Blood Gas Vent Mode AM ROOM AIR FiO2 40.0 % Blood Gas Specimen GRACIE Chapman Immature Granulocyte % (Auto) 0.4 0-1 % Neutrophils (%) (Auto) 86.8 H 40.0-77.0 % Lymphocytes (%) (Auto) 4.7 L 21.0-51.0 % Monocytes (%) (Auto) 7.6 3.0-13.0 % Eosinophils (%) (Auto) 0.1 0.0-8.0 % Basophils (%) (Auto) 0.4 0.0-5.0 % Neutrophils # (Auto) 13.2 H 1.8-7.7 K/uL Lymphocytes # (Auto) 0.7 L 1.0-4.8 K/uL Monocytes # (Auto) 1.2 H 0.1-1.0 K/uL Eosinophils # (Auto) 0.01 0.00-0.70 K/uL Basophils # (Auto) 0.06 0.00-0.20 K/uL Absolute Immature Granulocyte (auto 0.06 0-1 K/uL Prothrombin Time 11.4 9.6-11.6 SEC Prothromb Time International Ratio 1.08 0.85-1.15 Activated Partial Thromboplast Time 28.8 26.3-35.5 SEC Lactic Acid Level 10.7 H 0.8-2.5 mmol/L Ionized Calcium 1.17 1.16-1.32 MMOL/L Phosphorus Level 1.9 #L 2.5-4.9 mg/dL Total Bilirubin 1.3 H 0.2-1.0 mg/dL Aspartate Amino Transf (AST/SGOT) 24 10-37 U/L Alanine Aminotransferase (ALT/SGPT) 10 L 12-78 U/L Alkaline Phosphatase 56 50-136 U/L Total Protein 5.5 L 6.0-8.3 g/dL Albumin 2.7 L 3.5-5.0 g/dL Blood Gas Respiration Rate 4.0 min. Blood Gas Tidal Volume 750 ml Blood Gas PEEP 5 cm H2O Segmented Neutrophils % 90 H 40-70 % Lymphocytes % (Manual) 2 L 22-44 % Monocytes % (Manual) 8 2-9 % Differential Comment MANUAL DIFFERENTIAL White Cell Morphology Comment SLIDE REVIEWED Platelet Morphology Comment ADEQUATE Red Blood Cell Morphology See comments Fibrinogen 359 H 180-350 mg/dL Current Medications Medications (Trade) Dose Ordered Sig/Asya Route PRN Reason Start Time Stop Time Status Last Admin Dose Admin Acetaminophen (TYLenol 325MG TAB) 650 mg Q4H PRN PO Temp >38.3C(AFTER EXTUBATION) 03/02/25 15:00 04/01/25 14:59 Acetaminophen (TYLenol 325MG TAB) 650 mg Q6H PRN PO MILD PAIN (1-3) 03/03/25 09:00 04/02/25 08:59 Acetaminophen (TYLenol 650MG SUPPOSITORY) 650 mg Q4H PRN RC Temp >38.3C WHILE INTUBATED 03/02/25 15:00 04/01/25 14:59 Acetaminophen (acetaMINOPHEN) 1,000 mg Q6H IVPB 03/03/25 04:00 03/03/25 08:44 DC 03/03/25 04:17 1,000 MG Acetaminophen (acetaMINOPHEN) 1,000 mg Q6H6 IV 03/03/25 09:00 03/04/25 08:59 DC 03/04/25 06:32 1,000 MG Acetaminophen (acetaMINOPHEN) 1,000 mg Q6H6 IVPB 03/03/25 03:30 03/03/25 04:00 DC Acetaminophen/ Codeine Phosphate (TYLenol-coDEINE (120/12MG 5ML) ELIXIR) 10 ml Q4H PRN PO MODERATE PAIN (4-6) 02/25/25 15:30 02/25/25 15:16 DC Acetaminophen/ Hydrocodone Bitart (NORco 5/325MG) 1 tab Q6H PRN PO MODERATE PAIN (4-6) 02/23/25 23:00 02/28/25 22:59 DC 02/28/25 08:27 1 TAB Acetaminophen/ Hydrocodone Bitart (NORco 5/325MG) 1 tab Q6H PRN PO MODERATE PAIN (4-6) 03/01/25 00:30 03/02/25 14:57 DC 03/01/25 23:53 1 TAB Albumin Human 250 ml @ 0 mls/hr AD PRN IV IF HEMODYNAMICALLY UNSTABLE 03/02/25 15:00 Albumin Human 500 ml @ 0 mls/hr AD IV 03/03/25 01:30 03/03/25 08:52 DC 03/03/25 01:31 250 MLS/HR Albuterol (DUOneb) 1 UDVIAL [id number] IH 02/24/25 00:00 02/24/25 14:15 DC 02/24/25 07:08 1 UDVIAL Alteplase, Recombinant (CathFLO 2MG VIAL) 4 mg ONCE IVCATH 02/25/25 09:30 02/25/25 11:00 DC 02/25/25 10:44 4 MG Aminocaproic Acid 73736 mg/Sodium Chloride 310 ml @ 25 mls/hr AD IV 03/02/25 15:00 03/02/25 15:15 DC Aminocaproic Acid 26063 mg/Sodium Chloride 480 ml @ 0 mls/hr AD PRN IV BLEEDING CONTROL 03/02/25 08:30 04/01/25 08:29 Aspirin (Aspirin 81mg Ec Tab) 81 mg DAILY PO 02/25/25 09:00 03/27/25 08:59 03/04/25 10:43 81 MG Budesonide (Pulmicort 0.5 Mg/2ml) 0.5 mg BIDRESP IH 02/24/25 18:00 03/26/25 17:59 03/04/25 08:30 0.5 MG Bumetanide 40 ml @ 0 mls/hr AD IV 02/28/25 09:30 03/02/25 14:57 DC 03/02/25 06:01 1 MLS/HR Calcium Gluconate 1 gm/Sodium Chloride 60 ml @ 0 mls/hr AD PRN IV HYPOCALCEMIA 03/02/25 15:00 04/01/25 14:59 03/03/25 02:29 100 MLS/HR Cefazolin Sodium (Ancef) 2 gm ONCALL IVP 03/01/25 23:00 03/02/25 15:20 DC Cefazolin Sodium (Ancef) 2 gm Q8H IVPB 03/02/25 20:00 03/03/25 12:01 DC 03/03/25 14:04 2 GM Desmopressin Acetate 40 mcg/ Sodium Chloride 50 ml @ 100 mls/hr AD STAT IJ 03/02/25 17:44 03/02/25 18:13 DC Dexmedetomidine/ Sodium Chloride (PRECEdex 400MCG/ 100ML-NS) 400 mcg PROTOCOL IV 02/24/25 10:30 03/02/25 14:57 DC Dextrose (D50w) 50 ml AD PRN IV HYPOGLYCEMIA PROTOCOL 03/01/25 13:00 03/02/25 15:25 DC Dextrose (D50w) 50 ml AD PRN IV HYPOGLYCEMIA PROTOCOL 03/02/25 15:00 04/01/25 14:59 Docusate Sodium (COLace 100MG CAP) 100 mg BID PO 03/03/25 09:00 04/02/25 08:59 03/04/25 10:43 100 MG Doxycycline Hyclate (Doxycycline Hyclate) 100 mg BID PO 02/24/25 21:00 03/06/25 20:59 03/04/25 10:43 100 MG Enoxaparin Sodium (Lovenox) 30 mg DAILY SQ 03/05/25 09:00 04/04/25 08:59 Epinephrine HCl 10 mg/Sodium Chloride 250 ml @ 0 mls/hr AD PRN IV TITRATE 03/02/25 08:30 04/01/25 08:29 Epinephrine HCl 10 mg/Sodium Chloride 250 ml @ 0 mls/hr AD PRN IV POST-OP CARDIOVASCULAR ORDERS 03/02/25 15:00 03/02/25 15:16 DC Famotidine (Pepcid 20mg Vial) 20 mg DAILY IV 03/03/25 09:00 04/02/25 08:59 03/04/25 08:28 20 MG Folic Acid (FOLic ACID 1 MG TABLET) 1 mg DAILY PO 02/25/25 09:00 02/26/25 07:40 DC 02/25/25 09:07 1 MG Folic Acid (FOLic ACID 1 MG TABLET) 1 mg DAILY PO 02/25/25 09:00 03/27/25 08:59 03/04/25 10:43 1 MG Furosemide (LASix 20MG TAB) 20 mg BID@09,17 PO 03/04/25 09:00 04/03/25 08:59 03/04/25 10:43 20 MG Furosemide (LASix 20MG TAB) 20 mg Q12H PO 03/04/25 09:00 03/03/25 08:54 DC Furosemide (LASix 20MG VIAL) 20 mg Q12H IV 03/03/25 09:00 03/03/25 08:54 DC Furosemide (LASix 20MG VIAL) 20 mg Q12H IV 03/03/25 09:00 03/04/25 08:59 DC 03/03/25 20:10 20 MG Furosemide (LASix 40MG VIAL) 40 mg Q12H IV 02/24/25 08:30 02/24/25 10:20 DC 02/24/25 09:34 40 MG Furosemide (LASix 40MG VIAL) 40 mg Q8H IV 02/24/25 16:30 02/28/25 09:13 DC 02/28/25 08:26 40 MG Glucagon (Glucagon 1mg Kit) 1 mg AD PRN IM HYPOGLYCEMIA PROTOCOL 03/01/25 13:00 03/02/25 15:38 DC Glucagon (Glucagon 1mg Kit) 1 mg AD PRN IM HYPOGLYCEMIA PROTOCOL 03/02/25 15:00 04/01/25 14:59 Heparin Sodium (Porcine) (HEParin 5,000 UNIT VIAL) 5,000 unit BID SQ 02/24/25 09:00 03/02/25 14:57 DC 03/01/25 20:22 5,000 UNIT Insulin Human Regular 100 unit/ Sodium Chloride 100 ml @ 0 mls/hr AD IV 03/02/25 15:00 03/04/25 14:59 DC 03/02/25 19:17 4 MLS/HR Ipratropium [place] (AtrovENT UD) 0.5 MG [id number] IH 02/24/25 14:00 03/26/25 13:59 03/04/25 08:31 0.5 MG Lactulose (Constulose 20gm/ 30ml Udcup) 20 gm BID PRN PO CONSTIPATION 03/03/25 09:00 04/02/25 08:59 Linezolid 300 ml @ 150 mls/hr Q12H IV 02/24/25 11:00 03/06/25 10:59 03/04/25 11:08 150 MLS/HR Magnesium Hydroxide (Milk Of Magnesium 30ml) 30 ml DAILY PRN PO CONSTIPATION 03/03/25 09:00 04/02/25 08:59 Magnesium Sulfate 50 ml @ 12.5 mls/hr AD PRN IV MAG LEVEL LESS THAN 2.0 03/02/25 15:00 04/01/25 14:59 03/03/25 07:09 12.5 MLS/HR Magnesium Sulfate 50 ml @ 0 mls/hr PROTOCOL PRN IV low magnesium 02/25/25 11:00 03/02/25 14:57 DC 02/25/25 11:27 25 MLS/HR Melatonin (Melatonin) 10 mg HS PRN PO INSOMNIA 02/24/25 11:00 03/02/25 14:57 DC 03/01/25 23:53 10 MG Metolazone (zarOXOlyn) 5 mg DAILY PO 02/25/25 09:00 03/02/25 14:57 DC 03/01/25 14:49 5 MG Metoprolol Tartrate (loprESSOR) 12.5 mg BID PO 03/04/25 09:00 04/03/25 08:59 03/04/25 10:43 12.5 MG Montelukast Sodium (SinguLAIR) 10 mg DAILY PO 02/25/25 09:00 03/27/25 08:59 03/04/25 10:43 10 MG Morphine Sulfate (morPHINE 2MG SYG) 0.5 mg Q2H PRN IV MODERATE PAIN (4-6) 03/02/25 15:00 03/03/25 14:59 DC Morphine Sulfate (morPHINE 2MG SYG) 1 mg Q2H PRN IV SEVERE PAIN (7-10) 03/02/25 15:00 03/03/25 14:59 DC Nitroglycerin/ Dextrose 0 ml @ 0 mls/hr AD IV 03/02/25 15:00 03/05/25 14:59 Norepinephrine Bitartrate 250 ml @ 0 mls/hr AD PRN IV TITRATE 03/02/25 08:30 04/01/25 08:29 Norepinephrine Bitartrate 8 mg/ Dextrose 250 ml @ 0 mls/hr AD PRN IV POST-OP CARDIOVASCULAR ORDERS 03/02/25 15:00 03/02/25 15:16 DC Nystatin (NYSTatin 898054 UNIT/ML 5ML UDCUP) 5 ml QID PO 02/24/25 17:00 03/26/25 16:59 03/04/25 13:47 5 ML Ondansetron HCl (zoFRAN 4MG INJ) 4 mg Q6H PRN IV NAUSEA/VOMITING 03/02/25 15:00 04/01/25 14:59 03/04/25 08:24 4 MG Ondansetron HCl (zoFRAN 4MG INJ) 4 mg Q6H PRN IVP NAUSEA/VOMITING 02/24/25 21:00 03/02/25 14:57 DC 03/02/25 12:05 4 MG Pantoprazole Sodium (PROTonix 40MG INJ) 40 mg DAILY IVP 02/24/25 11:00 03/02/25 14:57 DC 03/02/25 11:54 40 MG Pharmacy Profile Note (Lace Assessment) 1 each AD MISC 02/24/25 10:30 02/24/25 10:32 DC Pharmacy Profile Note (Lace Assessment) 1 each AD MISC 02/25/25 15:30 02/25/25 15:17 DC Pharmacy Profile Note (Pharmacy Communication) 1 each ONCE MISC 02/23/25 23:00 02/23/25 23:48 DC Pharmacy Profile Note (Pharmacy Communication) 1 each ONCE MISC 02/25/25 15:30 02/25/25 15:17 DC Piperacillin Sod/ Tazobactam Sod (Zosyn 3.375gm+NS 50ml) 3.375 gm Q8H IV 02/24/25 05:00 03/06/25 04:59 03/04/25 13:47 3.375 GM Potassium Phosphate 250 ml @ 42 mls/hr AD PRN IV LOW PHOS LEVEL 03/02/25 15:00 04/01/25 14:59 03/03/25 09:48 42 MLS/HR Potassium Chloride 100 ml @ 100 mls/hr AD PRN IV POTASSIUM PROTOCOL 02/25/25 11:00 02/27/25 10:47 DC 02/27/25 08:24 100 MLS/HR Potassium Chloride 100 ml @ 100 mls/hr AD PRN IV POTASSIUM PROTOCOL 02/25/25 11:00 03/02/25 14:57 DC 03/02/25 11:54 100 MLS/HR Potassium Chloride 100 ml @ 100 mls/hr AD PRN IV HYPOKALEMIA 03/02/25 15:00 04/01/25 14:59 03/03/25 01:31 100 MLS/HR Potassium Chloride (K-Dur 10meq Sr Tab) 10 meq AD PRN PO POTASSIUM PROTOCOL 02/27/25 11:00 03/02/25 14:57 DC 03/01/25 05:39 10 MEQ Potassium Chloride (K-Dur/Klor-Con 20meq) 10 meq AD PRN PO POTASSIUM PROTOCOL 02/25/25 11:00 02/27/25 10:48 DC Potassium Chloride (K-Dur/Klor-Con 20meq) 20 meq DAILY PO 03/01/25 09:00 03/02/25 14:57 DC 03/01/25 14:50 20 MEQ Potassium Chloride (KCl 10% Elixir 20meq/15ml) 10 meq AD PRN PO POTASSIUM PROTOCOL 02/25/25 11:00 03/02/25 14:57 DC Propofol 100 ml @ 0 mls/hr AD PRN IV SEDATION 03/02/25 15:00 03/06/25 14:59 Sodium Bicarbonate (Sodium Bicarb 50meq 50ml Vial) 50 meq AD PRN IV OTHER[SEE DOSING INSTRUCTIONS] 03/02/25 15:00 03/05/25 14:59 03/02/25 22:09 50 MEQ Sodium Chloride 500 ml @ 0 mls/hr AD IV 03/02/25 15:00 04/01/25 14:59 03/03/25 01:32 500 MLS/HR Sodium Chloride 500 ml @ 0 mls/hr Q0M IV 03/03/25 01:30 03/03/25 08:52 DC Sodium Chloride 1,000 ml @ 0 mls/hr Q0M IV 03/02/25 13:00 04/01/25 12:59 Sodium Chloride 1,000 ml @ 10 mls/hr ONCE IV 03/02/25 15:00 03/03/25 14:59 DC 03/02/25 15:00 10 MLS/HR Sodium Chloride 1,000 ml @ 75 mls/hr [id number] IV 02/23/25 20:00 02/23/25 23:03 DC 02/23/25 20:08 75 MLS/HR Sodium Chloride 1,000 ml @ 150 mls/hr Q6H40M IV 03/01/25 13:00 03/01/25 15:37 DC 03/01/25 14:50 150 MLS/HR Sodium Chloride (NS Flush 10ml) 10 ml Q8H PRN IVP IV LINE FLUSH 03/02/25 15:00 04/01/25 14:59 Thiamine HCl (Vitamin B-1) 100 mg DAILY PO 02/25/25 09:00 03/27/25 08:59 03/04/25 10:43 100 MG Tramadol HCl (UltRAM) 25 mg Q6H PRN PO MODERATE PAIN (4-6) 03/02/25 15:00 03/02/25 15:33 DC Tramadol HCl (UltRAM) 50 mg Q6H PRN PO SEVERE PAIN (7-10) 03/02/25 15:00 03/02/25 15:39 DC Tramadol HCl (UltRAM) 50 mg Q6H PRN PO MODERATE PAIN (4-6) 03/03/25 03:30 03/08/25 03:29 03/03/25 03:36 50 MG Vancomycin HCl (Vancomycin Protocol) 1 each AD IV 02/23/25 19:00 02/23/25 19:33 DC Vasopressin 40 units/Sodium Chloride 40 ml @ 0 mls/hr PROTOCOL IV 03/03/25 01:30 04/02/25 01:29 DIAGNOSTICS / RADIOLOGY: [ ] PATIENT: ADAM MOE III MR#: [id number] : 1980 SEX: M AGE: 44 LOCATION: [facility] ORDER 99 STATUS: ADM IN REPORT#: [id number] SERVICE 9 REASON: s/p MICS AVR ORDERING PHYSICIAN: DESIREE GERARDO MD PROCEDURE: CXR1VW - CHEST 1VW Exam Type: CHEST 1VW Clinical Information: s/p MICS AVR Comparison: None Findings: Pulmonary pattern is as before. No worrisome interval changes have taken place. Impression: Stable exam. DICTATED BY: JANIE JOHNSON MD DATE: 03/04/25903 ELECTRONICALLY SIGNED BY: JANIE JOHNSON MD DATE: 03/04/25906 ASSESSMENT: gram positive bacteremia POA Sepsis, POA Pneumonia, POA Acute hypoxic respiratory failure on CPAP, ABG confirms PO2 less than 60 mmHg, POA Acute on chronic diastolic heart failure with exacerbation POA Acute kidney injury stage II, POA Non ST segment elevated [place], most likely type 2 FL secondary to oxygen ischemic POA ITP, POA Uncontrolled diabetes mellitus type 2, POA Diabetic nephropathy, POA Cocaine, alcohol and tobacco use disorder, POA Fidelina esophagitis, POA Matthews's cyst, hematoma, left knee, POA Electrolyte abnormalities, POA Chronic anemia, POA Severe aortic valve insufficiency secondary to infective endocarditis, with large non-coronary cusp vegetation (1.4 cm), EF preserved planned for aortic valve replacement Hamilton valve infective endocarditis, subacute, gram-positive (Micrococcus) and gram-negative (E. coli, Klebsiella) pathogens, on Zosyn, Linezolid, Doxycycline Bilateral multifocal pneumonia with superimposed pulmonary edema, improving clinically, likely secondary to endocarditis and fluid overload Acute on chronic kidney injury, Hypokalemia Volume overload secondary to congestive heart failure and valvular disease, on diuresis Chronic normocytic anemia, New-onset diabetes mellitus type 2, poorly controlled, monitor glucose closely Electrolyte imbalance hyponatremia, hypokalemia, hypomagnesemia, on repletion protocol Proteinuria with diabetic nephropathy PLAN: Chest tube output 510 mL increased from 220 mL yesterday, serosanguineous, nonclotting. WBC 11.6 improving leukocytosis, hemoglobin 7.1 Decreased from 8.1, planned PRBC transfusion for1 unit. Hematocrit is 20.5, platelets 92 K thrombocytopenia, monitor trends Blood cell distribution width is 16.9 elevated, chronic anemia, mild hypernatremia with sodium of 152, BUN and creatinine 26/1.9 stable BRENDAN, improved from creatinine yesterday 2.2 Improving hemodynamically, off drips. Transfused 1 packed RBC today. Thrombocytopenia likely dilutional postop transfusion trend it. Creatinine 1.9 trending down. Mild metabolic alkalosis likely due to diuretics and volume shift. DVT prophylaxis held due to hematoma and chest tube in place, plan to restart post removal and clearance for left atrial thrombus also. Bioprosthetic valve function awaiting baseline postop echo. Continue metoprolol tartrate 12.5 mg b.i.d., continue [id number] mg p.o. daily Continue furosemide 20 mg IV q.12h for volume management. Hold enoxaparin 40 mg subQ daily, resume after chest tube removal and platelet recovery. Infectious disease: * Continue Zosyn + Linezolid + Doxycycline pending final culture sensitivities * Repeat blood cultures if febrile or WBC rises ID on board Continue IV linezolid q.12h. Continue Zosyn 3.375 g IV q.8h. Continue IV doxycycline 100 mg b.i.d.. Noted blood cultures and sputum cultures. Pulmonary: Critical Care consult has been placed. Supplemental oxygen support, CPAP support and BiPAP setting as necessary to maintain SpO2 levels greater than 92 Budesonide, albuterol ipratropium nebulizations. Monitor ABGs, O2 sats, chest x-ray. Appreciate Pulmonary and critical Care consult suggestions. * Maintain O? via nasal cannula at 1L/min * Wean off as tolerated * Daily chest physiotherapy; monitor ABG Cardiovascular: Continue LasiX Wean off pressers as per ICU protocol until fully hemodynamically weaned Continue telemetry monitoring Monitor for post-op arrhythmia, tamponade, ischemia Daily CXR Close hemodynamic monitoring with bitumastic applier troponin, BNP. Continue telemetry monitoring * Proceed with left heart catheterization ? aortic valve replacement * Monitor troponins and BNP; follow-up Echo post-op Renal/metabolic Monitor CR, BUN, GFR. Avoid nephrotoxins. Monitor glucose, proteinuria. Replete potassium, magnesium, phosphorus. for per facility protocol. * Strict I/Os, daily BMP * Replace K?, Mg? per protocol * Hold nephrotoxic meds PRN GI/nutrition Pantoprazole IV daily. Monitor for GI bleeding. Add thiamine, folate multivitamins if chronic alcohol use. Hematology Monitor platelets for ITP versus reactive thrombocytosis. Consider iron studies, B12, reticulocyte count for anemia. Musculoskeletal: Monitor left knee swelling Avoid NSAIDs due to BRENDAN. Ortho referral if worsening. Sedation/neuro: Precedex for sedation, taper as tolerated. Determine at bedtime for sleep hygiene. ICU delirium prevention with 3 orientation, mobility and lytes during the day. Endocrine: Glucose control with insulin. Monitor for ketones and TKA signs. Consider A1c when stable. Substance use: Assess for withdrawal. CIAR protocol p.r.n. if needed. Offered smoking cessation and substance abuse counseling. Case management consult has been placed for further discharge planning. ATTESTATION BY PHYSICIAN I have seen and examined the patient. I reviewed the documentation, medical decision making, and treatment plan as noted by the resident above. I agree with the findings and plan of care. Benoit Martinez MD, RAGHAVA R MD Mar 04, 2025 17:15
[2025-03-04] MEDS: acetaMINOPHEN 325 MG TAB PO PRN (17:21)
[2025-03-05] VITALS (26 sets, daily range): BP systolic 127–160; BP diastolic 50–107; PULSE 74–95; RESP 9–26; TEMP 97–98; O2SAT 95–100
[2025-03-05 04:41] LABS: HEMATOCRIT 24.5 % (42-54); MEAN CORPUSCULAR HEMOGLOBIN 29.6 pg (27.0-33.0); MEAN CORPUSCULAR HGB CONC 33.9 g/dL (32.0-36.0); MEAN CORPUSCULAR VOLUME 87.5 fL (79-99); RED BLOOD CELL COUNT(AUTO) 2.8 MIL/uL (4.50-6.20); RED CELL DISTRIBUTION WIDTH 16.6 % (11.0-15.5); WHITE BLOOD COUNT (AUTO) 9.6 K/uL (4.8-10.8)
[2025-03-05 04:49] LABS: CREATININE 2.1 mg/dL (0.5-1.3); POTASSIUM 3.6 mmol/L (3.5-5.1)
--- NOTE | 2025-03-05 05:20 | NUR ---
RIVERA RIVERA REMOVED AT THIS TIME CATHETER AND BALLOON INTACT. PT TOLERATED WELL. WILL CONTINUE TO MONITOR
--- NOTE | 2025-03-05 06:00 | NUR ---
SEDATION SEDATION WEANED OFF DUE TO HYPOTENSION. LEVOPHED INCREASED TO KEEP MAP > 65. WILL CONTINUE TO MONITOR
[2025-03-05] MEDS: ENOXAPARIN SODIUM 30 MG/0.3 ML SQ SCH (08:42)
--- NOTE | 2025-03-05 09:14 | HMCIMG ---
Exam Type: CHEST 1VW Clinical Information: s/p MICS AVR Comparison: None Findings and impression: Removal of right central line. No pneumothorax. Partial interval clearance of lungs and no other interval changes.
--- NOTE | 2025-03-05 12:12 | PN ---
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 He had a hospital admission in December 2024 secondary to MSSA sepsis with bacterial endocarditis and evidence of left atrial appendage thrombus. He was treated with Eliquis 5 mg twice daily for LAD a thrombus, however this was discontinued during his last hospitalization due to left lower extremity hematoma. He was receiving IV antibiotics in the emergency department. He was readmitted 02/23/2025 due to acute diastolic heart failure exacerbation and symptomatic aortic valve insufficiency. He underwent echocardiogram 02/24/2025 which revealed an ejection fraction 50-55%, severely dilated left ventricle, normal-sized left atrium, severe aortic valve insufficiency, aortic valve vegetation 1.4 cm and mild mitral valve regurgitation. He underwent left heart catheterization 03/01/2025 which revealed mild nonobstructive coronary artery disease with 20-30% stenosis with the proximal LAD with a patent proximal LAD stent and 20-30% proximal and distal stenosis of the RCA. He is status post surgical aortic valve replacement with bioprosthetic valve 03/02/2025. He was transfused multiple blood products intraoperatively. Sputum culture performed 02/16/2025 shows E coli and Klebsiella aerogenes. Blood culture 02/23/2025 showed micrococcus and related species in 1/2 sets. Repeat blood cultures on 02/26/2025 and 02/27/2025 has been negative after five days. He has a chest tube in place currently with 1460 cc of drainage. White blood count 9.6, hemoglobin 8.3, hematocrit 24.5, platelets 79 down from 92 yesterday, creatinine 2.1, potassium 3.6. He is in sinus rhythm with heart rates in the 80s to 90s. His most recent blood pressure is 158/107. He denies chest pain, dizziness, shortness of breath. On exam, he is in no acute distress, regular rate and rhythm, lungs are clear to auscultation bilaterally, no lower extremity edema is noted. Assessment: 1. Symptomatic aortic valve insufficiency. 2. Bacterial endocarditis. 3. Status post bioprosthetic aortic valve replacement 03/02/2025. 4. Left atrial appendage thrombus. 5. Preserved LV systolic function. 6. Thombocytopenia. 7. Coronary artery disease with stenting of the proximal LAD in 2016. 8. 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 9. History of alcohol and cocaine abuse. Plan: 1. He presented with severe symptomatic aortic valve insufficiency in the setting of bacterial endocarditis. He is status post bioprosthetic aortic valve replacement 03/02/2025. Continue aspirin 81 mg once daily. 2. He has a known left atrial appendage thrombus and was previously on anticoagulation with Eliquis during his last admission. Eliquis was held due to left lower extremity hematoma. He will require anticoagulation due to the presence of the left atrial appendage thrombus. Lovenox is currently on hold due to the presence of a chest tube. Due to the the thrombocytopenia, we will consult Hematology with recommendations regarding anticoagulation (once the chest tube has been discontinued). 3. We will titrate metoprolol tartrate to 25 mg twice daily due to sinus tachycardia. 4. Continue furosemide 20 mg every 12 hours. 5. Continue IV antibiotics. 6. We will follow the patient. Vitals/Labs Vital Signs Date Time Temp Pulse Resp B/P (MAP) Pulse Ox O2 Delivery O2 Flow Rate FiO2 03/05/25 08:00 95 Room Air* 0 N/A Aerosol Mask+ 03/05/25 07:11 88 19 03/05/25 06:00 138/92 03/05/25 04:00 98.1 Laboratory Tests 03/04/25 15:15 03/05/25 04:26 HAMZAH CURIEL Mar 05, 2025 12:12
[2025-03-05] MEDS: metoPROLOL tartRATE 25 MG TAB PO ONE (13:34)
--- NOTE | 2025-03-05 17:15 | PN ---
[facility] PROGRESS NOTE Date of Service: Mar 05, 2025 Time of Service: 17:14 SUBJECTIVE: [ HPI : 54-year-old male with a complex medical history including recent hospitalization with a Gram-positive bacteremia secondary to Staph aureus, severe sepsis and endocarditis with echogenic vegetations on noncoronary cusps and right coronary cusp as well as left atrial appendage clot on January 11, 2025 presented to the ED days history of worsening shortness of breath. He was discharged on January 31, 2025 with long-term IV linezolid via PICC line for infective endocarditis. Since 3 days he reports progressive dyspnea, worsened acutely today. He denies chest pain but notes fatigue and exertional intolerance. There is no reported fever or chills. He was in mild respiratory distress on arrival. Notably has a past medical history of Fidelina esophagitis, uncontrolled diabetes mellitus type 2 BRENDAN, immune thrombocytopenic purpura, UTI Klebsiella and substance abuse with cocaine alcohol and tobacco. So on physical examination he is positive for shortness of breaths and cough no hemoptysis. His lungs have expiratory wheezes and diffuse crackling bilaterally. He is tachycardic with regular rhythm. His WBC count is at 18, hemoglobin at 10.5 and platelet count at 470 K with leukocytosis chronic anemia and thrombocytosis, chemistry is with creatinine showing 2.2, BUN at and CO2 at 18.2 magnesium low consistent with BRENDAN, electrolyte derangements. His arterial blood gas analysis reveals a pH of 7.469, PaCO2 of 26, PO2 of 54.6, HC03 of 18.2 and saturation of 90.2 Representing acute hypoxic respiratory failure with respiratory alkalosis. Serum lactate is elevated at 3.6 persistent lactic acidosis. BNP is at 2410 suggesting cardiac strain or volume overload. And troponin is elevated at [address] segment elevated CA. and urine analysis positive concerning for UTI and nephropathy due to positive hyaline casts. Chest x-ray reveals diffuse bilateral opacities consistent with pneumonia and chest CT scan reveals bilateral pleural effusion bilateral ground-glass pulmonary infiltrates are seen renal ultrasound reveals no hydronephrosis. And a CT scan also revealed gallstone. Echo is ordered to assess vegetations, LA clot and EF. Lower extremity Doppler revealed no DVT, Matthews's cyst versus hematoma in the left knee. EGD from prior history Fidelina esophagitis. The patient is admitted to ICU with the critical Care and Cardiology and Infectious Disease consult has been placed for further management currently on Precedex drip and CPAP setting with tidal volume of 657 and a rate of 36 and PIP of15 and ve of 23.2. Furosemide 40 q.12h is added in addition to his antibiotics monitoring the patient closely and discuss the goal of care with the patient and he agreed upon with it. 02/25/2025. Patient seen and examined along with RN. Feels better , breathing has improved. Continues to be on IV Lasix and metolazone was added. Cardiology and critical Care on board CT surgery was consulted for severe aortic regurgitation.] 02/26/25 review ultrasonic tester's note in detail. CT surgery was consulted regarding to his severe AI. Patient continues with diuretics in IV antibiotics. No fevers denies chest pain. 02/27/25 44-year-old male with a complex medical history including infective endocard itis, severe aortic insufficiency, CHF, BRENDAN, diabetic nephropathy, bilateral pneumonia, and recent gram-negative sepsis, is clinically improving. The patient reports that shortness of breath has been improving slowly over the past 48 hours. He currently denies chest pain, fever, or chills. He is tolerating medications and oral intake well. He remains on low-flow oxygen at 1L via nasal cannula, saturating well at 98%, ambulating to the chair with mild fatigue but no acute respiratory distress. No complaints of palpitations or dizziness. He is aware of the upcoming left heart catheterization and understands the indication for aortic valve replacement surgery. No family was present during bedside examination WBC: 11.7 (? from 13.2) improving leukocytosis February 28 2025 44-year-old male with severe [place] aortic valve insufficiency, bacterial endocarditis, and worsening pulmonary congestion, was upgraded to PCCU today due to clinical and radiographic deterioration. He remains dyspneic and hypoxic despite low-flow oxygen support. He reports difficulty breathing, especially in the supine position, and has been unable to tolerate lying flat due to severe orthopnea. He feels increasingly fatigued, lightheaded, and weak. Denies chest pain, fevers, chills, or palpitations. He is aware of his pending left heart catheterization and the need for aortic valve replacement surgery and verbalizes continued understanding and consent March 01 2025 The patient was examined at bedside this morning. He remains alert and oriented, and in no acute distress while sitting up. He reports increased shortness of breath when lying back or attempting to sleep supine, consistent with severe orthopnea, though otherwise states that he is feeling okay. He is NPO for the planned left heart catheterization scheduled for today as part of the workup for severe [place] aortic insufficiency with large vegetation and worsening decompensated heart failure. He has no new complaints of chest pain, fever, chills, nausea, or dizziness. He verbalizes understanding of the planned cardiac intervention and its associated risks, including contrast use, bleeding, arrhythmia, and need for surgical valve replacement afterward. March 02 2025 The patient was evaluated at bedside this morning. He was found sitting upright, hemodynamically stable, alert, and oriented. He reports no acute complaints at this time, denies chest pain, palpitations, nausea, or dizziness. He remains on 2L O? via nasal cannula, comfortable at rest, and is awaiting surgical intervention today for severe aortic valve regurgitation. The patient underwent left and right heart catheterization yesterday which revea led normal coronary anatomy with mild non-obstructive CAD. Cardiology has cleared the patient for surgical aortic valve repair. He has been informed of the risks and benefits of the procedure and has provided informed consent. His oxygen saturation and hemodynamics remain stable. He denies orthopnea today. 03/03/25 The patient was examined at bedside this morning, currently Post-Operative Day 1 following successful aortic valve replacement for [place] valve endocarditis. He is sitting upright in bed, alert and oriented, and reports that he is doing okay overall. He denies shortness of breath or chest discomfort but reports moderate incisional pain, well controlled with PRN Tylenol and tramadol. He reports mild fatigue but no nausea, dizziness, palpitations, or changes in vision. He is tolerating clear liquids. He has been out of bed to chair. No major overnight events noted. 03/04/25 Patient is evaluated at bedside this morning on postoperative day2 following bioprosthetic AV valve replacement for [place] valve infective endocarditis with severe regurgitation. He appears clinically improved. He denies chest pain, shortness of breath, dizziness, nausea, vomiting or other acute complaints. He reports mild fatigue and incisional pain, which is well controlled with acetaminophen p.r.n.. He is now breathing comfortably on room air, requiring no supplemental O2 and weaned off all vasopressors and inotropes. Appetite has improved. No complaints of orthopnea or PND. He continues to void adequately, although noted to have some postop anemia and mild thrombocytopenia. He is aware of ongoing recovery and upcoming transfusion today for symptomatic anemia. He has pain sitting up in the recliner. 03/05/25 patient seen and examined. Care discussed with the. Cardiology consulted Hematology for anticoagulation management He presented with severe symptomatic aortic valve insufficiency in the setting of bacterial endocarditis. He is status post bioprosthetic aortic valve replacement 03/02/2025. Continue aspirin 81 mg once daily. REVIEW OF SYSTEMS CONSTITUTIONAL: Positive for fatigue, mild subjective fever. NEUROLOGICAL: Denies headache, amaurosis fugax, motor weakness, sensory deficit, vertigo/spinning sensation, gait abnormalities, or tremors. ENT: No hearing loss, otalgia, otorrhea, rhinitis, rhinorrhea, hoarseness, or sore throat. CARDIOVASCULAR: Palpitations, no angina. PULMONARY: Shortness of breath, cough, no hemoptysis. SLEEP: Denies morning headaches, daytime somnolence or napping. Denies difficulty falling asleep, staying asleep, waking from sleep. Denies knowledge of snoring. GASTROINTESTINAL: Denies any type of dysphagia to either liquids or solids. Denies nausea, vomiting, pyrosis, early satiety, abdominal pain, diarrhea, constipation, or changes in stool consistency or caliber. Denies coffee-ground emesis, hematemesis, hematochezia, or melanotic stools. GENITOURINARY: Denies frequency, urgency, nocturia, hematuria or incontinence (Storage/Irritative symptoms.) Low urinary stream, straining to void, urinary intermittency or hesitancy, splitting of the voiding stream, terminal dribbling. ENDOCRINOLOGIC: Denies polyuria, polydipsia, polyphagia or heat/cold intolerances. HEMATOLOGIC: Denies thrombophilia/previous clots, or coagulopathy/bleeding disorders. ONCOLOGIC: Denies personal history of malignancy. DERMATOLOGIC: Denies rashes or pruritus. PSYCHIATRIC: Denies any suicidal or homicidal ideation. Denies hallucinations. PHYSICAL EXAM GENERAL APPEARANCE ill appearing, alert, mildly agitated, in moderate respiratory distress. NEUROLOGICAL: Cranial nerves II-XII grossly intact. Motor is 5/5 in bilateral upper and lower extremities proximal to distal. No sensory deficits. HEENT: Face is symmetric. Pupils are equal and reactive. Extraocular movements are intact. NECK: Supple. No JVD. No thyromegaly. No submental, submandibular, pre-/post auricular, occipital or supraclavicular lymphadenopathy. CHEST: Normal chest expansion. No Telemetry. LUNGS: Expiratory wheeze and diffuse crackles bilaterally CARDIOVASCULAR: Regular. S1 and S2 normal. No appreciable rubs, murmurs or gallops. Tachycardia present ABDOMEN: Soft, nontender, and nondistended. There is no rebound, voluntary guarding, or rigidity. : Deferred. No Ortega. EXTREMITIES: Bilateral 2+ pitting edema, left knee warm swollen, limited ROM and pitting edema more on the left compared to right. SKIN: No skin breakdown. Vital Signs (last 8hr) Date Time Temp Pulse Resp B/P (MAP) Pulse Ox O2 Delivery O2 Flow Rate FiO2 03/05/25 15:00 74 16 148/90 99 Room Air 03/05/25 14:00 93 21 146/50 99 Room Air 03/05/25 13:00 92 15 154/97 98 Room Air 03/05/25 12:00 97.0 88 9 154/97 100 Room Air 03/05/25 11:00 91 19 154/94 100 Room Air 03/05/25 10:00 93 22 158/107 99 Room Air LABS: Laboratory: Test 03/05/25 16:05 03/05/25 04:26 03/03/25 21:30 Range/Units Whole Blood Glucose 72 70-110 MG/DL White Blood Count 9.6 4.8-10.8 K/uL Red Blood Count 2.80 #L 4.50-6.20 MIL/uL Hemoglobin 8.3 L 14.0-18.0 g/dL Hematocrit 24.5 L 42-54 % Mean Corpuscular Volume 87.5 79-99 fL Mean Corpuscular Hemoglobin 29.6 27.0-33.0 pg Mean Corpuscular Hemoglobin Concent 33.9 32.0-36.0 g/dL Red Cell Distribution Width 16.6 H 11.0-15.5 % Platelet Count 79 L 130-400 K/uL Mean Platelet Volume 11.0 H 7.5-10.5 fL Nucleated Red Blood Cells 0.0 0.0-0.19 % Sodium Level 138 136-145 mmol/L Potassium Level 3.6 3.5-5.1 mmol/L Chloride Level 99 L 101-111 mmol/L Carbon Dioxide Level 31 21-32 mmol/L Blood Urea Nitrogen 30 H 7-18 mg/dL Creatinine 2.1 H 0.5-1.3 mg/dL Glomerular Filtration Rate Calc 39 >90 mL/min Random Glucose 133 H 70-105 mg/dL Total Calcium 8.3 L 8.5-10.1 mg/dL Magnesium Level 2.00 1.80-2.40 mg/dL Current Medications Medications (Trade) Dose Ordered Sig/Asya Route PRN Reason Start Time Stop Time Status Last Admin Dose Admin Acetaminophen (TYLenol 325MG TAB) 650 mg Q4H PRN PO Temp >38.3C(AFTER EXTUBATION) 03/02/25 15:00 04/01/25 14:59 Acetaminophen (TYLenol 325MG TAB) 650 mg Q6H PRN PO MILD PAIN (1-3) 03/03/25 09:00 04/02/25 08:59 03/05/25 00:35 650 MG Acetaminophen (TYLenol 650MG SUPPOSITORY) 650 mg Q4H PRN RC Temp >38.3C WHILE INTUBATED 03/02/25 15:00 04/01/25 14:59 Acetaminophen (acetaMINOPHEN) 1,000 mg Q6H IVPB 03/03/25 04:00 03/03/25 08:44 DC 03/03/25 04:17 1,000 MG Acetaminophen (acetaMINOPHEN) 1,000 mg Q6H6 IV 03/03/25 09:00 03/04/25 08:59 DC 03/04/25 06:32 1,000 MG Acetaminophen (acetaMINOPHEN) 1,000 mg Q6H6 IVPB 03/03/25 03:30 03/03/25 04:00 DC Acetaminophen/ Codeine Phosphate (TYLenol-coDEINE (120/12MG 5ML) ELIXIR) 10 ml Q4H PRN PO MODERATE PAIN (4-6) 02/25/25 15:30 02/25/25 15:16 DC Acetaminophen/ Hydrocodone Bitart (NORco 5/325MG) 1 tab Q6H PRN PO MODERATE PAIN (4-6) 02/23/25 23:00 02/28/25 22:59 DC 02/28/25 08:27 1 TAB Acetaminophen/ Hydrocodone Bitart (NORco 5/325MG) 1 tab Q6H PRN PO MODERATE PAIN (4-6) 03/01/25 00:30 03/02/25 14:57 DC 03/01/25 23:53 1 TAB Albumin Human 250 ml @ 0 mls/hr AD PRN IV IF HEMODYNAMICALLY UNSTABLE 03/02/25 15:00 Albumin Human 500 ml @ 0 mls/hr AD IV 03/03/25 01:30 03/03/25 08:52 DC 03/03/25 01:31 250 MLS/HR Albuterol (DUOneb) 1 UDVIAL H5OHIOD IH 02/24/25 00:00 02/24/25 14:15 DC 02/24/25 07:08 1 UDVIAL Alteplase, Recombinant (CathFLO 2MG VIAL) 4 mg ONCE IVCATH 02/25/25 09:30 02/25/25 11:00 DC 02/25/25 10:44 4 MG Aminocaproic Acid 22292 mg/Sodium Chloride 310 ml @ 25 mls/hr AD IV 03/02/25 15:00 03/02/25 15:15 DC Aminocaproic Acid 41975 mg/Sodium Chloride 480 ml @ 0 mls/hr AD PRN IV BLEEDING CONTROL 03/02/25 08:30 04/01/25 08:29 Aspirin (Aspirin 81mg Ec Tab) 81 mg DAILY PO 02/25/25 09:00 03/27/25 08:59 03/05/25 08:40 81 MG Budesonide (Pulmicort 0.5 Mg/2ml) 0.5 mg BIDRESP IH 02/24/25 18:00 03/26/25 17:59 03/05/25 07:08 0.5 MG Bumetanide 40 ml @ 0 mls/hr AD IV 02/28/25 09:30 03/02/25 14:57 DC 03/02/25 06:01 1 MLS/HR Calcium Gluconate 1 gm/Sodium Chloride 60 ml @ 0 mls/hr AD PRN IV HYPOCALCEMIA 03/02/25 15:00 04/01/25 14:59 03/03/25 02:29 100 MLS/HR Cefazolin Sodium (Ancef) 2 gm ONCALL IVP 03/01/25 23:00 03/02/25 15:20 DC Cefazolin Sodium (Ancef) 2 gm Q8H IVPB 03/02/25 20:00 03/03/25 12:01 DC 03/03/25 14:04 2 GM Desmopressin Acetate 40 mcg/ Sodium Chloride 50 ml @ 100 mls/hr AD STAT IJ 03/02/25 17:44 03/02/25 18:13 DC Dexmedetomidine/ Sodium Chloride (PRECEdex 400MCG/ 100ML-NS) 400 mcg PROTOCOL IV 02/24/25 10:30 03/02/25 14:57 DC Dextrose (D50w) 50 ml AD PRN IV HYPOGLYCEMIA PROTOCOL 03/01/25 13:00 03/02/25 15:25 DC Dextrose (D50w) 50 ml AD PRN IV HYPOGLYCEMIA PROTOCOL 03/02/25 15:00 04/01/25 14:59 Docusate Sodium (COLace 100MG CAP) 100 mg BID PO 03/03/25 09:00 04/02/25 08:59 03/05/25 08:41 100 MG Doxycycline Hyclate (Doxycycline Hyclate) 100 mg BID PO 02/24/25 21:00 03/06/25 20:59 03/05/25 08:40 100 MG Enoxaparin Sodium (Lovenox) 30 mg DAILY SQ 03/05/25 09:00 04/04/25 08:59 Epinephrine HCl 10 mg/Sodium Chloride 250 ml @ 0 mls/hr AD PRN IV TITRATE 03/02/25 08:30 04/01/25 08:29 Epinephrine HCl 10 mg/Sodium Chloride 250 ml @ 0 mls/hr AD PRN IV POST-OP CARDIOVASCULAR ORDERS 03/02/25 15:00 03/02/25 15:16 DC Famotidine (Pepcid 20mg Vial) 20 mg DAILY IV 03/03/25 09:00 04/02/25 08:59 03/05/25 08:40 20 MG Folic Acid (FOLic ACID 1 MG TABLET) 1 mg DAILY PO 02/25/25 09:00 02/26/25 07:40 DC 02/25/25 09:07 1 MG Folic Acid (FOLic ACID 1 MG TABLET) 1 mg DAILY PO 02/25/25 09:00 03/27/25 08:59 03/05/25 08:41 1 MG Furosemide (LASix 20MG TAB) 20 mg BID@ PO 03/04/25 09:00 04/03/25 08:59 03/05/25 08:41 20 MG Furosemide (LASix 20MG TAB) 20 mg Q12H PO 03/04/25 09:00 03/03/25 08:54 DC Furosemide (LASix 20MG VIAL) 20 mg Q12H IV 03/03/25 09:00 03/03/25 08:54 DC Furosemide (LASix 20MG VIAL) 20 mg Q12H IV 03/03/25 09:00 03/04/25 08:59 DC 03/03/25 20:10 20 MG Furosemide (LASix 40MG VIAL) 40 mg Q12H IV 02/24/25 08:30 02/24/25 10:20 DC 02/24/25 09:34 40 MG Furosemide (LASix 40MG VIAL) 40 mg Q8H IV 02/24/25 16:30 02/28/25 09:13 DC 02/28/25 08:26 40 MG Glucagon (Glucagon 1mg Kit) 1 mg AD PRN IM HYPOGLYCEMIA PROTOCOL 03/01/25 13:00 03/02/25 15:38 DC Glucagon (Glucagon 1mg Kit) 1 mg AD PRN IM HYPOGLYCEMIA PROTOCOL 03/02/25 15:00 04/01/25 14:59 Heparin Sodium (Porcine) (HEParin 5,000 UNIT VIAL) 5,000 unit BID SQ 02/24/25 09:00 03/02/25 14:57 DC 03/01/25 20:22 5,000 UNIT Insulin Human Regular 100 unit/ Sodium Chloride 100 ml @ 0 mls/hr AD IV 03/02/25 15:00 03/04/25 14:59 DC 03/02/25 19:17 4 MLS/HR Ipratropium [place] (AtrovENT UD) 0.5 MG [id number] IH 02/24/25 14:00 03/26/25 13:59 03/05/25 07:08 0.5 MG Lactulose (Constulose 20gm/ 30ml Udcup) 20 gm BID PRN PO CONSTIPATION 03/03/25 09:00 04/02/25 08:59 Linezolid 300 ml @ 150 mls/hr Q12H IV 02/24/25 11:00 03/06/25 10:59 03/05/25 10:23 150 MLS/HR Magnesium Hydroxide (Milk Of Magnesium 30ml) 30 ml DAILY PRN PO CONSTIPATION 03/03/25 09:00 04/02/25 08:59 Magnesium Sulfate 50 ml @ 12.5 mls/hr AD PRN IV MAG LEVEL LESS THAN 2.0 03/02/25 15:00 04/01/25 14:59 03/03/25 07:09 12.5 MLS/HR Magnesium Sulfate 50 ml @ 0 mls/hr PROTOCOL PRN IV low magnesium 02/25/25 11:00 03/02/25 14:57 DC 02/25/25 11:27 25 MLS/HR Melatonin (Melatonin) 10 mg HS PRN PO INSOMNIA 02/24/25 11:00 03/02/25 14:57 DC 03/01/25 23:53 10 MG Metolazone (zarOXOlyn) 5 mg DAILY PO 02/25/25 09:00 03/02/25 14:57 DC 03/01/25 14:49 5 MG Metoprolol Tartrate (loprESSOR) 12.5 mg BID PO 03/04/25 09:00 03/05/25 12:08 DC 03/05/25 08:41 12.5 MG Metoprolol Tartrate (loprESSOR) 25 mg BID PO 03/05/25 21:00 04/04/25 20:59 Montelukast Sodium (SinguLAIR) 10 mg DAILY PO 02/25/25 09:00 03/27/25 08:59 03/05/25 08:41 10 MG Morphine Sulfate (morPHINE 2MG SYG) 0.5 mg Q2H PRN IV MODERATE PAIN (4-6) 03/02/25 15:00 03/03/25 14:59 DC Morphine Sulfate (morPHINE 2MG SYG) 1 mg Q2H PRN IV SEVERE PAIN (7-10) 03/02/25 15:00 03/03/25 14:59 DC Nitroglycerin/ Dextrose 0 ml @ 0 mls/hr AD IV 03/02/25 15:00 03/05/25 14:59 DC Norepinephrine Bitartrate 250 ml @ 0 mls/hr AD PRN IV TITRATE 03/02/25 08:30 04/01/25 08:29 Norepinephrine Bitartrate 8 mg/ Dextrose 250 ml @ 0 mls/hr AD PRN IV POST-OP CARDIOVASCULAR ORDERS 03/02/25 15:00 03/02/25 15:16 DC Nystatin (NYSTatin 253105 UNIT/ML 5ML UDCUP) 5 ml QID PO 02/24/25 17:00 03/26/25 16:59 03/05/25 12:35 5 ML Ondansetron HCl (zoFRAN 4MG INJ) 4 mg Q6H PRN IV NAUSEA/VOMITING 03/02/25 15:00 04/01/25 14:59 03/05/25 12:36 4 MG Ondansetron HCl (zoFRAN 4MG INJ) 4 mg Q6H PRN IVP NAUSEA/VOMITING 02/24/25 21:00 03/02/25 14:57 DC 03/02/25 12:05 4 MG Pantoprazole Sodium (PROTonix 40MG INJ) 40 mg DAILY IVP 02/24/25 11:00 03/02/25 14:57 DC 03/02/25 11:54 40 MG Pharmacy Profile Note (Lace Assessment) 1 each AD MISC 02/24/25 10:30 02/24/25 10:32 DC Pharmacy Profile Note (Lace Assessment) 1 each AD MISC 02/25/25 15:30 02/25/25 15:17 DC Pharmacy Profile Note (Pharmacy Communication) 1 each ONCE MISC 02/23/25 23:00 02/23/25 23:48 DC Pharmacy Profile Note (Pharmacy Communication) 1 each ONCE MISC 02/25/25 15:30 02/25/25 15:17 DC Piperacillin Sod/ Tazobactam Sod (Zosyn 3.375gm+NS 50ml) 3.375 gm Q8H IV 02/24/25 05:00 03/06/25 04:59 03/05/25 12:35 3.375 GM Potassium Phosphate 250 ml @ 42 mls/hr AD PRN IV LOW PHOS LEVEL 03/02/25 15:00 04/01/25 14:59 03/03/25 09:48 42 MLS/HR Potassium Chloride 100 ml @ 100 mls/hr AD PRN IV POTASSIUM PROTOCOL 02/25/25 11:00 02/27/25 10:47 DC 02/27/25 08:24 100 MLS/HR Potassium Chloride 100 ml @ 100 mls/hr AD PRN IV POTASSIUM PROTOCOL 02/25/25 11:00 03/02/25 14:57 DC 03/02/25 11:54 100 MLS/HR Potassium Chloride 100 ml @ 100 mls/hr AD PRN IV HYPOKALEMIA 03/02/25 15:00 04/01/25 14:59 03/05/25 08:41 100 MLS/HR Potassium Chloride (K-Dur 10meq Sr Tab) 10 meq AD PRN PO POTASSIUM PROTOCOL 02/27/25 11:00 03/02/25 14:57 DC 03/01/25 05:39 10 MEQ Potassium Chloride (K-Dur/Klor-Con 20meq) 10 meq AD PRN PO POTASSIUM PROTOCOL 02/25/25 11:00 02/27/25 10:48 DC Potassium Chloride (K-Dur/Klor-Con 20meq) 20 meq DAILY PO 03/01/25 09:00 03/02/25 14:57 DC 03/01/25 14:50 20 MEQ Potassium Chloride (KCl 10% Elixir 20meq/15ml) 10 meq AD PRN PO POTASSIUM PROTOCOL 02/25/25 11:00 03/02/25 14:57 DC Propofol 100 ml @ 0 mls/hr AD PRN IV SEDATION 03/02/25 15:00 03/06/25 14:59 Sodium Bicarbonate (Sodium Bicarb 50meq 50ml Vial) 50 meq AD PRN IV OTHER[SEE DOSING INSTRUCTIONS] 03/02/25 15:00 03/05/25 14:59 DC 03/02/25 22:09 50 MEQ Sodium Chloride 500 ml @ 0 mls/hr AD IV 03/02/25 15:00 04/01/25 14:59 03/03/25 01:32 500 MLS/HR Sodium Chloride 500 ml @ 0 mls/hr Q0M IV 03/03/25 01:30 03/03/25 08:52 DC Sodium Chloride 1,000 ml @ 0 mls/hr Q0M IV 03/02/25 13:00 04/01/25 12:59 Sodium Chloride 1,000 ml @ 10 mls/hr ONCE IV 03/02/25 15:00 03/03/25 14:59 DC 03/02/25 15:00 10 MLS/HR Sodium Chloride 1,000 ml @ 75 mls/hr [id number] IV 02/23/25 20:00 02/23/25 23:03 DC 02/23/25 20:08 75 MLS/HR Sodium Chloride 1,000 ml @ 150 mls/hr Q6H40M IV 03/01/25 13:00 03/01/25 15:37 DC 03/01/25 14:50 150 MLS/HR Sodium Chloride (NS Flush 10ml) 10 ml Q8H PRN IVP IV LINE FLUSH 03/02/25 15:00 04/01/25 14:59 Thiamine HCl (Vitamin B-1) 100 mg DAILY PO 02/25/25 09:00 03/27/25 08:59 03/05/25 08:41 100 MG Tramadol HCl (UltRAM) 25 mg Q6H PRN PO MODERATE PAIN (4-6) 03/02/25 15:00 03/02/25 15:33 DC Tramadol HCl (UltRAM) 50 mg Q6H PRN PO SEVERE PAIN (7-10) 03/02/25 15:00 03/02/25 15:39 DC Tramadol HCl (UltRAM) 50 mg Q6H PRN PO MODERATE PAIN (4-6) 03/03/25 03:30 03/08/25 03:29 03/05/25 13:33 50 MG Vancomycin HCl (Vancomycin Protocol) 1 each AD IV 02/23/25 19:00 02/23/25 19:33 DC Vasopressin 40 units/Sodium Chloride 40 ml @ 0 mls/hr PROTOCOL IV 03/03/25 01:30 04/02/25 01:29 DIAGNOSTICS / RADIOLOGY: [ ] ASSESSMENT: gram positive bacteremia POA Sepsis, POA Pneumonia, POA Acute hypoxic respiratory failure on CPAP, ABG confirms PO2 less than 60 mmHg, POA Acute on chronic diastolic heart failure with exacerbation POA Acute kidney injury stage II, POA Non ST segment elevated CA, most likely type 2 CA secondary to oxygen ischemic POA ITP, POA Uncontrolled diabetes mellitus type 2, POA Diabetic nephropathy, POA Cocaine, alcohol and tobacco use disorder, POA Fidelina esophagitis, POA Matthews's cyst, hematoma, left knee, POA Electrolyte abnormalities, POA Chronic anemia, POA Severe aortic valve insufficiency secondary to infective endocarditis, with large non-coronary cusp vegetation (1.4 cm), EF preserved planned for aortic valve replacement Lime valve infective endocarditis, subacute, gram-positive (Micrococcus) and gram-negative (E. coli, Klebsiella) pathogens, on Zosyn, Linezolid, Doxycycline Bilateral multifocal pneumonia with superimposed pulmonary edema, improving clinically, likely secondary to endocarditis and fluid overload Acute on chronic kidney injury, Hypokalemia Volume overload secondary to congestive heart failure and valvular disease, on diuresis Chronic normocytic anemia, New-onset diabetes mellitus type 2, poorly controlled, monitor glucose closely Electrolyte imbalance hyponatremia, hypokalemia, hypomagnesemia, on repletion protocol Proteinuria with diabetic nephropathy PLAN: Chest tube output 510 mL increased from 220 mL yesterday, serosanguineous, nonclotting. WBC 11.6 improving leukocytosis, hemoglobin 7.1 Decreased from 8.1, planned PRBC transfusion for1 unit. Hematocrit is 20.5, platelets 92 K thrombocytopenia, monitor trends Blood cell distribution width is 16.9 elevated, chronic anemia, mild hypernatremia with sodium of 152, BUN and creatinine 26/1.9 stable BRENDAN, improved from creatinine yesterday 2.2 Improving hemodynamically, off drips. Transfused 1 packed RBC today. Thrombocytopenia likely dilutional postop transfusion trend it. Creatinine 1.9 trending down. Mild metabolic alkalosis likely due to diuretics and volume shift. DVT prophylaxis held due to hematoma and chest tube in place, plan to restart post removal and clearance for left atrial thrombus also. Bioprosthetic valve function awaiting baseline postop echo. Continue metoprolol tartrate 12.5 mg b.i.d., continue [id number] mg p.o. daily Continue furosemide 20 mg IV q.12h for volume management. Hold enoxaparin 40 mg subQ daily, resume after chest tube removal and platelet recovery. Infectious disease: * Continue Zosyn + Linezolid + Doxycycline pending final culture sensitivities * Repeat blood cultures if febrile or WBC rises ID on board Continue IV linezolid q.12h. Continue Zosyn 3.375 g IV q.8h. Continue IV doxycycline 100 mg b.i.d.. Noted blood cultures and sputum cultures. Pulmonary: Critical Care consult has been placed. Supplemental oxygen support, CPAP support and BiPAP setting as necessary to maintain SpO2 levels greater than 92 Budesonide, albuterol ipratropium nebulizations. Monitor ABGs, O2 sats, chest x-ray. Appreciate Pulmonary and critical Care consult suggestions. * Maintain O? 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 Continue telemetry monitoring * Proceed with left heart catheterization ? aortic valve replacement * Monitor troponins and BNP; follow-up Echo post-op Renal/metabolic Monitor CR, BUN, GFR. Avoid nephrotoxins. Monitor glucose, proteinuria. Replete potassium, magnesium, phosphorus. for per facility protocol. * Strict I/Os, daily BMP * Replace K?, Mg? per protocol * Hold nephrotoxic meds PRN GI/nutrition Pantoprazole IV daily. Monitor for GI bleeding. Add thiamine, folate multivitamins if chronic alcohol use. Hematology Monitor platelets for ITP versus reactive thrombocytosis. Consider iron studies, B12, reticulocyte count for anemia. Musculoskeletal: Monitor left knee swelling Avoid NSAIDs due to BRENDAN. Ortho referral if worsening. Sedation/neuro: Precedex for sedation, taper as tolerated. Determine at bedtime for sleep hygiene. ICU delirium prevention with 3 orientation, mobility and lytes during the day. Endocrine: Glucose control with insulin. Monitor for ketones and TKA signs. Consider A1c when stable. Substance use: Assess for withdrawal. [facility] protocol p.r.n. if needed. Offered smoking cessation and substance abuse counseling. Case management consult has been placed for further discharge planning. PUJA DOMINGUEZ MD Mar 05, 2025 17:15
--- NOTE | 2025-03-05 19:18 | PN ---
[facility] PROGRESS NOTE Date Patient Seen: Mar 05, 2025 Time of Visit: 20:01 Supervising Physician: [Dr. Nair] Primary Care Physician: Self Referral MD Outpatient Specialists: Inpatient Consults: Dr Dumont PROBLEM LIST: - Acute Hypoxic respiratory failure POA requiring NIV -Acute on chronic diastolic heart failure w/ EF 50-55% on 2 D echo POA - Aortica Valvular vegetation present 1.4cm -Severe Aortic regurgitation Severe multifocal bilateral Bacterial Pneumonia SCAP score 20 Points, sputum culture positive for E coli and Klebsiella -Bilateral Pleural Effusions POA -Acute Cystitis POA -Normocytic anemia -Acute on chronic CKD stage IIIb -Fidelina esophagitis identified on EGD done 01/11/2025 -Bacterial endocarditis affecting the aortic valve (1.81x1.17 cm mass attached to the noncoronary cusp leaflet) identified on DRAKE done 01/11/2025 -Left atrial appendage thrombus identified on DRAKE done 01/11/2025 -Elevated troponin (type II NC) -thrombocytosis -Liver cirrhosis MELD Score 22 Points ( 19.6 % Estimated 3 month Mortality) -cholelithiasis -Esophagitis by EGD 01/11/2025 -CAD s/p PCI with IA Integrilin, aspiration thrombectomy, PTCA, and KISHORE placement (Promus 4.0x16 mm) in the proximal LAD done on 12/19/2015 -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 he is hemodynamically stable with a blood pressure of 125/51, heart rate in the 80s respiratory rate of 24 unlabored saturating 95% on5 L via nasal cannula. Urine output 1.7 L in the last 24 hours. WBCs 16.3 H&H 7.2/31.7 Platelet count of 443 K. chemistry potassium 3.4 chloride of 99 carbon [id number] BUN creatinine 2.1 GFR of 39 glucose 106 lactic acid of 2.8 trending down total calcium 8.4 and albumin of 1.60. Sensitive troponin of 404 with previously be in 258. Respiratory culture growing Gram-negative rods and Gram-positive rods. CV surgeon has been consulted per Cardiology for aortic endocarditis severe aortic regurgitation. We will continue to follow cardiology recommendations and for now patient may downgrade from ICU. 02/28 Patient's repeat echocardiogram shows persistent aortic valvular mass. His sputum culture positive for E coli and Klebsiella. Labs show improved WBC. Patient to continue on IV antibiotics per ID recommendations. He will undergo LHC with possible PCI today per cardiology and plan for aortic valve replacement per CTS afterwards once stabilized. He is now weaned off to room air. 03/01 Vitals are reviewed and within normal limits, T-max 97.3. Patient continues with significant swelling, currently on Bumex drip and metolazone. Has 300ml of urine output overnight. Continues on antibiotics for E coli and Klebsiella on sputum culture. Patient's LHC was postponed yesterday due to scheduling conflict, is pending for today with Dr. Kameron Hilario. 03/02 patient is status post LHC yesterday by Dr. Hilario with findings of normal coronary anatomy and mild non-obstructive CAD. Vitals reviewed and within normal limits with T-max 97.9. He continues on supplemental oxygen with 2 L NC. CBC is grossly unremarkable. CMP shows persistently elevated creatinine at 2.1, relatively unchanged. Continues on bumex drip, has 800ml of urine output overnight. His ABG this morning shows borderline respiratory alkalosis. Blood cultures remain negative, sputum culture positive. Continues on antibiotics per ID. He is pending AVR this AM. 03/03 patient is status post AVR yesterday. He is currently sitting up in chair at bedside. He is in mild distress with tachycardia and tachypnea. Continues on nebulizer treatments. Blood pressure is within normal limits, continues on supplemental oxygen with 1 L. He has been diuresing well with 2595 mL of urine output overnight. White blood count remains elevated but improved to 15., blood cultures remained negative. Lactic acid is downtrending, continues on IV antibiotics per ID. CXR shows diffuse bilateral pulmonary infiltrates consistent with edema, continues on diuretics. Currently on low-dose vasopressin and epinephrine, hemodynamically stable. 03/04 patient is evaluated at bedside. He is feeling short of breath but has been weaned off supplemental oxygen to room air with O2 sats in high 90s. Continues with p.o. Lasix with 2320 mL of urine output overnight. Chest tube output with 510 mL overnight and a total of 850 cc per container. Pending repeat CXR today. WBCs are improved to 11, hemoglobin is 7.1. Patient does appear pale at bedside, we will administer one PRBC. Creatinine remains elevated but improved to 1.9. Repeat blood culture results negative. 03/05 Patient is evaluated at bedside. He continues on room air, no current respiratory distress. Continues with diuresis with 1050 mL of urine output overnight. Continues with significant chest tube output of 730 mL overnight. His bilateral lower extremity edema is significantly improved. Has been ambulating with PT down the hallway. Continues on IV antibiotics per ID. Patient has had gradual decline of his platelets, pending oncology evaluation with the same. REVIEW OF SYSTEMS: 12 point ROS reviewed with patient. Pertinent positives mentioned above. Otherwise negative. PHYSICAL EXAM: GENERAL: alert, weak, awake oriented x 3, in mild respiratory distress on room air, facial pallor HEENT: EOMI, Sclera non icteric, moist mucosa NECK: Supple, no JVD, trachea midline LUNGS: Crackles breath sounds bilaterally. No wheezes HEART: Regular rate and rhythm. Normal S1 and S2, without murmurs ABD: Obese Abdomen soft, nontender. Bowel sounds present EXT: No clubbing cyanosis 2+ bilateral lower extremity edema NEURO: Alert and oriented to person, follows commands Vital Signs (last 8hr) Date Time Temp Pulse Resp B/P (MAP) Pulse Ox O2 Delivery O2 Flow Rate FiO2 03/05/25 18:45 85 21 N/A Room Air 21 03/05/25 15:00 74 16 148/90 99 Room Air 03/05/25 14:00 93 21 146/50 99 Room Air 03/05/25 13:00 92 15 154/97 98 Room Air LABS: Hematology Labs: Test 03/05/25 04:26 Range/Units White Blood Count 9.6 4.8-10.8 K/uL Red Blood Count 2.80 #L 4.50-6.20 MIL/uL Hemoglobin 8.3 L 14.0-18.0 g/dL Hematocrit 24.5 L 42-54 % Mean Corpuscular Volume 87.5 79-99 fL Mean Corpuscular Hemoglobin 29.6 27.0-33.0 pg Mean Corpuscular Hemoglobin Concent 33.9 32.0-36.0 g/dL Red Cell Distribution Width 16.6 H 11.0-15.5 % Platelet Count 79 L 130-400 K/uL Mean Platelet Volume 11.0 H 7.5-10.5 fL Nucleated Red Blood Cells 0.0 0.0-0.19 % Chemistry Labs: Test 03/05/25 16:05 03/05/25 04:26 03/03/25 21:30 Range/Units Whole Blood Glucose 72 70-110 MG/DL Sodium Level 138 136-145 mmol/L Potassium Level 3.6 3.5-5.1 mmol/L Chloride Level 99 L 101-111 mmol/L Carbon Dioxide Level 31 21-32 mmol/L Blood Urea Nitrogen 30 H 7-18 mg/dL Creatinine 2.1 H 0.5-1.3 mg/dL Glomerular Filtration Rate Calc 39 >90 mL/min Random Glucose 133 H 70-105 mg/dL Total Calcium 8.3 L 8.5-10.1 mg/dL Magnesium Level 2.00 1.80-2.40 mg/dL DIAGNOSTICS / RADIOLOGY RESULTS: [ ] PLAN Will DC lovenox Start arixtra 2.5mg decreased dose given elevated creatinine and chest tube in place Continue diuretics with PO lasix Monitor urine output, chest tube output IV antibiotics per ID Wean off oxygen as tolerated OOB to chair PT when appropriate Disposition ICU NEURO: Minimize central acting medications as possible. Fall Precautions. Well lighted room through the day and minimize interruptions through the night to prevent acute delirium. PULMONARY: Supplemental 02 as needed Titrate Fio2 to keep Spo2 > or = 90% DuoNebs and CPT as needed IS hourly while awake for pulmonary hygiene Out of bed to chair as tolerated CARDIOVASCULAR: Follow hemodynamics. Titrate vasopressor to keep MAP >65 or systolic blood pressure >95mmHg LINES: [ ]PIV GI & NUTRITION: Continue nutritional support Aspirations precautions Prokinetic agents and laxatives as needed KIDNEYS & ELECTROLYTES: Strict monitoring of intake and output Daily weights Avoid nephrotoxic agents Monitor electrolytes and replace as needed Goal urine output of 30mL/hr or 0.5mL/kg/hr Urine output: [ ] Fluid Balance: [ ] ENDOCRINE: Maintain blood glucose between 100-180 at all times. Insulin sliding scale for blood glucose management INFECTIOUS DISEASE: Trend temperature. Mccormack-culture if febrile. Micro: [ ] Antibiotics: [ ] HEMATOLOGY & COAGULATION: Monitor H&H. Keep Hgb > 7 Transfuse 1 unit of PRBC for Hgb < 7 Transfuse 1 pack of platelets of platelets < 20, 000 Watch for any signs and symptoms of bleeding SKIN: Pressure ulcer prevention per facility protocol Rehab: PT/OT Prophylaxis: GI: [ ] Protonix DVT: Heparin Code Status: Full Resuscitation Disposition: May downgrade to PCCU Other: Total patient care time exceeds 52 minutes excluding all procedures. Case was discussed and seen with my supervising physician. The above plan was formulated and agreed upon. KIT RETANA Mar 05, 2025 19:18
--- NOTE | 2025-03-05 20:01 | PN ---
TIME: 2:00 p.m. SUBJECTIVE: The patient is a 44-year-old gentleman, status post aortic valve replacement. No major events overnight, remained stable. PHYSICAL EXAMINATION: NEUROLOGIC: Alert and oriented, no deficits. CARDIAC: S1, S2, regular rate and rhythm. RESPIRATORY: Clear to auscultation bilaterally. Incision is clean, dry and intact. ASSESSMENT AND PLAN: * Aortic insufficiency with aortic valve endocarditis, status post aortic valve replacement, recovering well. Continue antibiotics as per ID. Not on any pressors. * Hypercholesterolemia, on high statin therapy. * Acute blood loss anemia. No evidence of active bleeding at this time. Hemoglobin is 8.2 this morning. We will continue to monitor and transfuse if hemoglobin less than 7. TID: [id number] RECEIPT: [id number]
[2025-03-05] MEDS: metoPROLOL tartRATE 25 MG TAB PO SCH (21:06)
[2025-03-06] VITALS (15 sets, daily range): BP systolic 109–164; BP diastolic 51–100; PULSE 76–92; RESP 14–23; TEMP 97.6–98.5; O2SAT 98–100
[2025-03-06 04:51] LABS: HEMATOCRIT 25.5 % (42-54); MEAN CORPUSCULAR HGB CONC 33.7 g/dL (32.0-36.0); MEAN CORPUSCULAR VOLUME 88.9 fL (79-99); RED BLOOD CELL COUNT(AUTO) 2.87 MIL/uL (4.50-6.20); RED CELL DISTRIBUTION WIDTH 15.6 % (11.0-15.5); WHITE BLOOD COUNT (AUTO) 8.5 K/uL (4.8-10.8)
[2025-03-06 05:09] LABS: CREATININE 1.8 mg/dL (0.5-1.3); MAGNESIUM 1.8 mg/dL (1.80-2.40); POTASSIUM 3.4 mmol/L (3.5-5.1)
[2025-03-06] MEDS ORDERED: hydrALAZine 20MG/ML VIAL IV PRN (09:00)
[2025-03-06] MEDS ORDERED: FONDAPARINUX SODIUM 2.5 MG/0.5 ML SQ SCH (09:00)
--- NOTE | 2025-03-06 09:00 | NUR ---
DR. TIFFANY CHU FOR ARIXTRA USE
[2025-03-06] MEDS: furoSEMIDE 40MG VIAL IV SCH (09:11)
[2025-03-06] MEDS: amLODIPine 5 MG TAB PO SCH (09:12)
--- NOTE | 2025-03-06 09:12 | PN ---
[facility] PROGRESS NOTE Date Patient Seen: Mar 06, 2025 Time of Visit: 10:05 Supervising Physician: [Dr. Zamarripa] Primary Care Physician: Self Referral MD Outpatient Specialists: Inpatient Consults: Dr Dumont PROBLEM LIST: - Acute Hypoxic respiratory failure POA requiring NIV -Acute on chronic diastolic heart failure w/ EF 50-55% on 2 D echo POA - Aortica Valvular vegetation present 1.4cm -Severe Aortic regurgitation, s/p Aortic valve replacement Acute thrombocytopenia, r/o HIT Severe multifocal bilateral Bacterial Pneumonia SCAP score 20 Points, sputum culture positive for E coli and Klebsiella, treated -Bilateral Pleural Effusions POA -Acute Cystitis POA, treated -Normocytic anemia -Acute on chronic CKD stage IIIb -Fidelina esophagitis identified on EGD done 01/11/2025 -Bacterial endocarditis affecting the aortic valve (1.81x1.17 cm mass attached to the noncoronary cusp leaflet) identified on DRAKE done 01/11/2025 -Left atrial appendage thrombus identified on DRAKE done 01/11/2025 -Elevated troponin (type II DE) -thrombocytosis on admisison, now with thrombocytopenia -Liver cirrhosis MELD Score 22 Points ( 19.6 % Estimated 3 month Mortality) -cholelithiasis -Esophagitis by EGD 01/11/2025 -CAD s/p PCI with IA Integrilin, aspiration thrombectomy, PTCA, and KISHORE placement (Promus 4.0x16 mm) in the proximal LAD done on 12/19/2015 -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 he is hemodynamically stable with a blood pressure of 125/51, heart rate in the 80s respiratory rate of 24 unlabored saturating 95% on5 L via nasal cannula. Urine output 1.7 L in the last 24 hours. WBCs 16.3 H&H 7.2/31.7 Platelet count of 443 K. chemistry potassium 3.4 chloride of 99 carbon itiryre30 BUN creatinine 2.1 GFR of 39 glucose 106 lactic acid of 2.8 trending down total calcium 8.4 and albumin of 1.60. Sensitive troponin of 404 with previously be in 258. Respiratory culture growing Gram-negative rods and Gram-positive rods. CV surgeon has been consulted per Cardiology for aortic endocarditis severe aortic regurgitation. We will continue to follow cardiology recommendations and for now patient may downgrade from ICU. 02/28 Patient's repeat echocardiogram shows persistent aortic valvular mass. His sputum culture positive for E coli and Klebsiella. Labs show improved WBC. Patient to continue on IV antibiotics per ID recommendations. He will undergo LHC with possible PCI today per cardiology and plan for aortic valve replacement per CTS afterwards once stabilized. He is now weaned off to room air. 03/01 Vitals are reviewed and within normal limits, T-max 97.3. Patient continues with significant swelling, currently on Bumex drip and metolazone. Has 300ml of urine output overnight. Continues on antibiotics for E coli and Klebsiella on sputum culture. Patient's LHC was postponed yesterday due to scheduling conflict, is pending for today with Dr. Kameron Hilario. 03/02 patient is status post LHC yesterday by Dr. Hilario with findings of normal coronary anatomy and mild non-obstructive CAD. Vitals reviewed and within normal limits with T-max 97.9. He continues on supplemental oxygen with 2 L NC. CBC is grossly unremarkable. CMP shows persistently elevated creatinine at 2.1, relatively unchanged. Continues on bumex drip, has 800ml of urine output overnight. His ABG this morning shows borderline respiratory alkalosis. Blood cultures remain negative, sputum culture positive. Continues on antibiotics per ID. He is pending AVR this AM. 03/03 patient is status post AVR yesterday. He is currently sitting up in chair at bedside. He is in mild distress with tachycardia and tachypnea. Continues on nebulizer treatments. Blood pressure is within normal limits, continues on supplemental oxygen with 1 L. He has been diuresing well with 2595 mL of urine output overnight. White blood count remains elevated but improved to 15., blood cultures remained negative. Lactic acid is downtrending, continues on IV antibiotics per ID. CXR shows diffuse bilateral pulmonary infiltrates consistent with edema, continues on diuretics. Currently on low-dose vasopressin and epinephrine, hemodynamically stable. 03/04 patient is evaluated at bedside. He is feeling short of breath but has been weaned off supplemental oxygen to room air with O2 sats in high 90s. Continues with p.o. Lasix with 2320 mL of urine output overnight. Chest tube output with 510 mL overnight and a total of 850 cc per container. Pending repeat CXR today. WBCs are improved to 11, hemoglobin is 7.1. Patient does appear pale at bedside, we will administer one PRBC. Creatinine remains elevated but improved to 1.9. Repeat blood culture results negative. 03/05 Patient is evaluated at bedside. He continues on room air, no current respiratory distress. Continues with diuresis with 1050 mL of urine output overnight. Continues with significant chest tube output of 730 mL overnight. His bilateral lower extremity edema is significantly improved. Has been ambulating with PT down the hallway. Continues on IV antibiotics per ID. Patient has had gradual decline of his platelets, pending oncology evaluation with the same. 03/06 Patient is weaned off supplemental oxygen on room air. Chest tube output is 160 mL overnight, place chest tube to water seal per CTS. Continues with diuresis of 1450ml overnight. He continues on antibiotics per ID for polymicrobes on sputum. Continues on antiarrhythmics, heart rate controlled. His hemoglobin is stable this morning 8.6, platelets improved to 88, pending HIT serology. Started on Arixtra. Pending repeat CXR today. Patient feeling overall improved, continues with persistent bilateral lower extremity edema. Continues on diuretics Which were increased to furosemide 30 mg IV q.12H. REVIEW OF SYSTEMS: 12 point ROS reviewed with patient. Pertinent positives mentioned above. Otherwise negative. PHYSICAL EXAM: GENERAL: alert, weak, awake oriented x 3, in mild respiratory distress on room air, facial pallor HEENT: EOMI, Sclera non icteric, moist mucosa NECK: Supple, no JVD, trachea midline LUNGS: Crackles breath sounds bilaterally. No wheezes HEART: Regular rate and rhythm. Normal S1 and S2, without murmurs ABD: Obese Abdomen soft, nontender. Bowel sounds present EXT: No clubbing cyanosis 2+ bilateral lower extremity edema NEURO: Alert and oriented to person, follows commands Vital Signs (last 8hr) Date Time Temp Pulse Resp B/P (MAP) Pulse Ox O2 Delivery O2 Flow Rate FiO2 03/06/25 08:00 98 Room Air* 0 N/A Aerosol Mask+ 03/06/25 08:00 92 23 164/100 99 Room Air 03/06/25 07:57 90 21 N/A Room Air 21 03/06/25 07:30 97.9 03/06/25 06:56 89 19 03/06/25 04:00 98.4 79 14 126/96 97 Room Air LABS: Hematology Labs: Test 03/06/25 04:34 Range/Units White Blood Count 8.5 4.8-10.8 K/uL Red Blood Count 2.87 L 4.50-6.20 MIL/uL Hemoglobin 8.6 L 14.0-18.0 g/dL Hematocrit 25.5 L 42-54 % Mean Corpuscular Volume 88.9 79-99 fL Mean Corpuscular Hemoglobin 30.0 27.0-33.0 pg Mean Corpuscular Hemoglobin Concent 33.7 32.0-36.0 g/dL Red Cell Distribution Width 15.6 H 11.0-15.5 % Platelet Count 88 L 130-400 K/uL Mean Platelet Volume 11.4 H 7.5-10.5 fL Nucleated Red Blood Cells 0.0 0.0-0.19 % Chemistry Labs: Test 03/06/25 04:34 03/05/25 16:05 Range/Units Sodium Level 135 L 136-145 mmol/L Potassium Level 3.4 L 3.5-5.1 mmol/L Chloride Level 100 L 101-111 mmol/L Carbon Dioxide Level 28 21-32 mmol/L Blood Urea Nitrogen 30 H 7-18 mg/dL Creatinine 1.8 H 0.5-1.3 mg/dL Glomerular Filtration Rate Calc 47 >90 mL/min Random Glucose 117 H 70-105 mg/dL Total Calcium 8.5 8.5-10.1 mg/dL Magnesium Level 1.80 1.80-2.40 mg/dL Whole Blood Glucose 72 70-110 MG/DL DIAGNOSTICS / RADIOLOGY RESULTS: [ ] PLAN Will DC lovenox given suspected HIT Arixtra, SCD and Ambulation for DVT ppx Continue diuretics with IV lasix per CTS Keep legs elevated while sitting, may use anabella hoses Monitor urine output, chest tube output IV antibiotics per ID Wean off oxygen as tolerated OOB to chair Continue PT DC planning per primary Downgrade to PCCU NEURO: Minimize central acting medications as possible. Fall Precautions. Well lighted room through the day and minimize interruptions through the night to prevent acute delirium. PULMONARY: Supplemental 02 as needed Titrate Fio2 to keep Spo2 > or = 90% DuoNebs and CPT as needed IS hourly while awake for pulmonary hygiene Out of bed to chair as tolerated CARDIOVASCULAR: Follow hemodynamics. Titrate vasopressor to keep MAP >65 or systolic blood pressure >95mmHg LINES: [ ]PIV GI & NUTRITION: Continue nutritional support Aspirations precautions Prokinetic agents and laxatives as needed KIDNEYS & ELECTROLYTES: Strict monitoring of intake and output Daily weights Avoid nephrotoxic agents Monitor electrolytes and replace as needed Goal urine output of 30mL/hr or 0.5mL/kg/hr Urine output: [ ] Fluid Balance: [ ] ENDOCRINE: Maintain blood glucose between 100-180 at all times. Insulin sliding scale for blood glucose management INFECTIOUS DISEASE: Trend temperature. Mccormack-culture if febrile. Micro: [ ] Antibiotics: [ ] HEMATOLOGY & COAGULATION: Monitor H&H. Keep Hgb > 7 Transfuse 1 unit of PRBC for Hgb < 7 Transfuse 1 pack of platelets of platelets < 20, 000 Watch for any signs and symptoms of bleeding SKIN: Pressure ulcer prevention per facility protocol Rehab: PT/OT Prophylaxis: GI: [ ] Protonix DVT: Heparin Code Status: Full Resuscitation Disposition: May downgrade to PCCU Other: Total patient care time exceeds 52 minutes excluding all procedures. Case was discussed and seen with my supervising physician. The above plan was formulated and agreed upon. KIT RETANA Mar 06, 2025 09:12
[2025-03-06] MEDS: PoTASSium chloRIDE 20MEQ ER 20 MEQ ERTAB PO PRN (09:17)
--- NOTE | 2025-03-06 10:06 | HMCIMG ---
CHEST 1VW HISTORY: Post valvular replacement COMPARISON: 03/05/2025 FINDINGS: A frontal projection of the chest was obtained. There are bilateral pulmonary infiltrates suggestive of pulmonary vascular congestion with possible superimposed pneumonitis. Poststernotomy changes are seen. The heart is enlarged. Degenerative changes of the thoracolumbar spine are present. No evidence of aortic calcification is seen. IMPRESSION: 1. Bilateral pulmonary infiltrates are seen suggestive of pulmonary vascular congestion with possible superimposed pneumonitis. Interval worsening is seen.
--- NOTE | 2025-03-06 11:50 | PN ---
[facility] PROGRESS NOTE Date of Service: Mar 06, 2025 Time of Service: 11:40 SUBJECTIVE: [ HPI : 54-year-old male with a complex medical history including recent hospitalization with a Gram-positive bacteremia secondary to Staph aureus, severe sepsis and endocarditis with echogenic vegetations on noncoronary cusps and right coronary cusp as well as left atrial appendage clot on January 11, 2025 presented to the ED days history of worsening shortness of breath. He was discharged on January 31, 2025 with long-term IV linezolid via PICC line for infective endocarditis. Since 3 days he reports progressive dyspnea, worsened acutely today. He denies chest pain but notes fatigue and exertional intolerance. There is no reported fever or chills. He was in mild respiratory distress on arrival. Notably has a past medical history of Fidelina esophagitis, uncontrolled diabetes mellitus type 2 BRENDAN, immune thrombocytopenic purpura, UTI Klebsiella and substance abuse with cocaine alcohol and tobacco. So on physical examination he is positive for shortness of breaths and cough no hemoptysis. His lungs have expiratory wheezes and diffuse crackling bilaterally. He is tachycardic with regular rhythm. His WBC count is at 18, hemoglobin at 10.5 and platelet count at 470 K with leukocytosis chronic anemia and thrombocytosis, chemistry is with creatinine showing 2.2, BUN at and CO2 at 18.2 magnesium low consistent with BRENDAN, electrolyte derangements. His arterial blood gas analysis reveals a pH of 7.469, PaCO2 of 26, PO2 of 54.6, HC03 of 18.2 and saturation of 90.2 Representing acute hypoxic respiratory failure with respiratory alkalosis. Serum lactate is elevated at 3.6 persistent lactic acidosis. BNP is at 2410 suggesting cardiac strain or volume overload. And troponin is elevated at [address] segment elevated LA. and urine analysis positive concerning for UTI and nephropathy due to positive hyaline casts. Chest x-ray reveals diffuse bilateral opacities consistent with pneumonia and chest CT scan reveals bilateral pleural effusion bilateral ground-glass pulmonary infiltrates are seen renal ultrasound reveals no hydronephrosis. And a CT scan also revealed gallstone. Echo is ordered to assess vegetations, LA clot and EF. Lower extremity Doppler revealed no DVT, Matthews's cyst versus hematoma in the left knee. EGD from prior history Fidelina esophagitis. The patient is admitted to ICU with the critical Care and Cardiology and Infectious Disease consult has been placed for further management currently on Precedex drip and CPAP setting with tidal volume of 657 and a rate of 36 and PIP of15 and ve of 23.2. Furosemide 40 q.12h is added in addition to his antibiotics monitoring the patient closely and discuss the goal of care with the patient and he agreed upon with it. 02/25/2025. Patient seen and examined along with RN. Feels better , breathing has improved. Continues to be on IV Lasix and metolazone was added. Cardiology and critical Care on board CT surgery was consulted for severe aortic regurgitation.] 02/26/25 review ecmo specialist's note in detail. CT surgery was consulted regarding to his severe AI. Patient continues with diuretics in IV antibiotics. No fevers denies chest pain. 02/27/25 44-year-old male with a complex medical history including infective endocard itis, severe aortic insufficiency, CHF, BRENDAN, diabetic nephropathy, bilateral pneumonia, and recent gram-negative sepsis, is clinically improving. The patient reports that shortness of breath has been improving slowly over the past 48 hours. He currently denies chest pain, fever, or chills. He is tolerating medications and oral intake well. He remains on low-flow oxygen at 1L via nasal cannula, saturating well at 98%, ambulating to the chair with mild fatigue but no acute respiratory distress. No complaints of palpitations or dizziness. He is aware of the upcoming left heart catheterization and understands the indication for aortic valve replacement surgery. No family was present during bedside examination WBC: 11.7 (? from 13.2) improving leukocytosis February 28 2025 44-year-old male with severe red cliff aortic valve insufficiency, bacterial endocarditis, and worsening pulmonary congestion, was upgraded to PCCU today due to clinical and radiographic deterioration. He remains dyspneic and hypoxic despite low-flow oxygen support. He reports difficulty breathing, especially in the supine position, and has been unable to tolerate lying flat due to severe orthopnea. He feels increasingly fatigued, lightheaded, and weak. Denies chest pain, fevers, chills, or palpitations. He is aware of his pending left heart catheterization and the need for aortic valve replacement surgery and verbalizes continued understanding and consent March 01 2025 The patient was examined at bedside this morning. He remains alert and oriented, and in no acute distress while sitting up. He reports increased shortness of breath when lying back or attempting to sleep supine, consistent with severe orthopnea, though otherwise states that he is feeling okay. He is NPO for the planned left heart catheterization scheduled for today as part of the workup for severe red cliff aortic insufficiency with large vegetation and worsening decompensated heart failure. He has no new complaints of chest pain, fever, chills, nausea, or dizziness. He verbalizes understanding of the planned cardiac intervention and its associated risks, including contrast use, bleeding, arrhythmia, and need for surgical valve replacement afterward. March 02 2025 The patient was evaluated at bedside this morning. He was found sitting upright, hemodynamically stable, alert, and oriented. He reports no acute complaints at this time, denies chest pain, palpitations, nausea, or dizziness. He remains on 2L O? via nasal cannula, comfortable at rest, and is awaiting surgical intervention today for severe aortic valve regurgitation. The patient underwent left and right heart catheterization yesterday which revea led normal coronary anatomy with mild non-obstructive CAD. Cardiology has cleared the patient for surgical aortic valve repair. He has been informed of the risks and benefits of the procedure and has provided informed consent. His oxygen saturation and hemodynamics remain stable. He denies orthopnea today. 03/03/25 The patient was examined at bedside this morning, currently Post-Operative Day 1 following successful aortic valve replacement for red cliff valve endocarditis. He is sitting upright in bed, alert and oriented, and reports that he is doing okay overall. He denies shortness of breath or chest discomfort but reports moderate incisional pain, well controlled with PRN Tylenol and tramadol. He reports mild fatigue but no nausea, dizziness, palpitations, or changes in vision. He is tolerating clear liquids. He has been out of bed to chair. No major overnight events noted. 03/04/25 Patient is evaluated at bedside this morning on postoperative day2 following bioprosthetic AV valve replacement for red cliff valve infective endocarditis with severe regurgitation. He appears clinically improved. He denies chest pain, shortness of breath, dizziness, nausea, vomiting or other acute complaints. He reports mild fatigue and incisional pain, which is well controlled with acetaminophen p.r.n.. He is now breathing comfortably on room air, requiring no supplemental O2 and weaned off all vasopressors and inotropes. Appetite has improved. No complaints of orthopnea or PND. He continues to void adequately, although noted to have some postop anemia and mild thrombocytopenia. He is aware of ongoing recovery and upcoming transfusion today for symptomatic anemia. He has pain sitting up in the recliner. 03/05/25 patient seen and examined. Care discussed with the. Cardiology consulted Hematology for anticoagulation management He presented with severe symptomatic aortic valve insufficiency in the setting of bacterial endocarditis. He is status post bioprosthetic aortic valve replacement 03/02/2025. Continue aspirin 81 mg once daily. 03/06/25 Patient was examined at bedside this morning. He is currently off supplemental O2, breathing comfortably on room air with SpO2 of 98%, and hemodynamically stable. He is sitting upright in a recliner, awake, alert, oriented and reports feeling better overall. He denies chest pain, shortness of breath at rest, or dizziness. He notes mild bilateral leg swelling, but denies any pain, erythema or tenderness. He is ambulating with assistance, tolerating oral intake, and urinating spontaneously. His central line was removed and PICC line remains in place. Chest tube remains with a with decreased output today of 160 mL. He has not required vasopressors or inotropes, and respiratory parameters are stable. He is he understands that he has been downgraded from ICU to PCCU as a part of recovery plan. Awaiting Hematology recommendations for anti coagulation. REVIEW OF SYSTEMS CONSTITUTIONAL: Positive for fatigue, mild subjective fever. NEUROLOGICAL: Denies headache, amaurosis fugax, motor weakness, sensory deficit, vertigo/spinning sensation, gait abnormalities, or tremors. ENT: No hearing loss, otalgia, otorrhea, rhinitis, rhinorrhea, hoarseness, or sore throat. CARDIOVASCULAR: Palpitations, no angina. PULMONARY: Shortness of breath, cough, no hemoptysis. SLEEP: Denies morning headaches, daytime somnolence or napping. Denies difficulty falling asleep, staying asleep, waking from sleep. Denies knowledge of snoring. GASTROINTESTINAL: Denies any type of dysphagia to either liquids or solids. Denies nausea, vomiting, pyrosis, early satiety, abdominal pain, diarrhea, constipation, or changes in stool consistency or caliber. Denies coffee-ground emesis, hematemesis, hematochezia, or melanotic stools. GENITOURINARY: Denies frequency, urgency, nocturia, hematuria or incontinence (Storage/Irritative symptoms.) Low urinary stream, straining to void, urinary intermittency or hesitancy, splitting of the voiding stream, terminal dribbling. ENDOCRINOLOGIC: Denies polyuria, polydipsia, polyphagia or heat/cold intolerances. HEMATOLOGIC: Denies thrombophilia/previous clots, or coagulopathy/bleeding disorders. ONCOLOGIC: Denies personal history of malignancy. DERMATOLOGIC: Denies rashes or pruritus. PSYCHIATRIC: Denies any suicidal or homicidal ideation. Denies hallucinations. PHYSICAL EXAM GENERAL APPEARANCE ill appearing, alert, mildly agitated, in moderate respiratory distress. NEUROLOGICAL: Cranial nerves II-XII grossly intact. Motor is 5/5 in bilateral upper and lower extremities proximal to distal. No sensory deficits. HEENT: Face is symmetric. Pupils are equal and reactive. Extraocular movements are intact. NECK: Supple. No JVD. No thyromegaly. No submental, submandibular, pre-/postauricular, occipital or supraclavicular lymphadenopathy. CHEST: Normal chest expansion. No Telemetry. LUNGS: Expiratory wheeze and diffuse crackles bilaterally CARDIOVASCULAR: Regular. S1 and S2 normal. No appreciable rubs, murmurs or gallops. Tachycardia present ABDOMEN: Soft, nontender, and nondistended. There is no rebound, voluntary guarding, or rigidity. : Deferred. No Ortega. EXTREMITIES: Bilateral 2+ pitting edema, left knee warm swollen, limited ROM and pitting edema more on the left compared to right. SKIN: No skin breakdown. Vital Signs (last 8hr) Date Time Temp Pulse Resp B/P (MAP) Pulse Ox O2 Delivery O2 Flow Rate FiO2 03/06/25 08:00 98 Room Air* 0 N/A Aerosol Mask+ 03/06/25 08:00 92 23 164/100 99 Room Air 03/06/25 07:57 90 21 N/A Room Air 21 03/06/25 07:30 97.9 03/06/25 06:56 89 19 03/06/25 04:00 98.4 79 14 126/96 97 Room Air LABS: Laboratory: Test 03/06/25 04:34 03/05/25 16:05 Range/Units White Blood Count 8.5 4.8-10.8 K/uL Red Blood Count 2.87 L 4.50-6.20 MIL/uL Hemoglobin 8.6 L 14.0-18.0 g/dL Hematocrit 25.5 L 42-54 % Mean Corpuscular Volume 88.9 79-99 fL Mean Corpuscular Hemoglobin 30.0 27.0-33.0 pg Mean Corpuscular Hemoglobin Concent 33.7 32.0-36.0 g/dL Red Cell Distribution Width 15.6 H 11.0-15.5 % Platelet Count 88 L 130-400 K/uL Mean Platelet Volume 11.4 H 7.5-10.5 fL Nucleated Red Blood Cells 0.0 0.0-0.19 % Sodium Level 135 L 136-145 mmol/L Potassium Level 3.4 L 3.5-5.1 mmol/L Chloride Level 100 L 101-111 mmol/L Carbon Dioxide Level 28 21-32 mmol/L Blood Urea Nitrogen 30 H 7-18 mg/dL Creatinine 1.8 H 0.5-1.3 mg/dL Glomerular Filtration Rate Calc 47 >90 mL/min Random Glucose 117 H 70-105 mg/dL Total Calcium 8.5 8.5-10.1 mg/dL Magnesium Level 1.80 1.80-2.40 mg/dL Whole Blood Glucose 72 70-110 MG/DL Current Medications Medications (Trade) Dose Ordered Sig/Asya Route PRN Reason Start Time Stop Time Status Last Admin Dose Admin Acetaminophen (TYLenol 325MG TAB) 650 mg Q4H PRN PO Temp >38.3C(AFTER EXTUBATION) 03/02/25 15:00 04/01/25 14:59 Acetaminophen (TYLenol 325MG TAB) 650 mg Q6H PRN PO MILD PAIN (1-3) 03/03/25 09:00 04/02/25 08:59 03/05/25 00:35 650 MG Acetaminophen (TYLenol 650MG SUPPOSITORY) 650 mg Q4H PRN RC Temp >38.3C WHILE INTUBATED 03/02/25 15:00 04/01/25 14:59 Acetaminophen (acetaMINOPHEN) 1,000 mg Q6H IVPB 03/03/25 04:00 03/03/25 08:44 DC 03/03/25 04:17 1,000 MG Acetaminophen (acetaMINOPHEN) 1,000 mg Q6H6 IV 03/03/25 09:00 03/04/25 08:59 DC 03/04/25 06:32 1,000 MG Acetaminophen (acetaMINOPHEN) 1,000 mg Q6H6 IVPB 03/03/25 03:30 03/03/25 04:00 DC Acetaminophen/ Codeine Phosphate (TYLenol-coDEINE (120/12MG 5ML) ELIXIR) 10 ml Q4H PRN PO MODERATE PAIN (4-6) 02/25/25 15:30 02/25/25 15:16 DC Acetaminophen/ Hydrocodone Bitart (NORco 5/325MG) 1 tab Q6H PRN PO MODERATE PAIN (4-6) 02/23/25 23:00 02/28/25 22:59 DC 02/28/25 08:27 1 TAB Acetaminophen/ Hydrocodone Bitart (NORco 5/325MG) 1 tab Q6H PRN PO MODERATE PAIN (4-6) 03/01/25 00:30 03/02/25 14:57 DC 03/01/25 23:53 1 TAB Albumin Human 250 ml @ 0 mls/hr AD PRN IV IF HEMODYNAMICALLY UNSTABLE 03/02/25 15:00 Albumin Human 500 ml @ 0 mls/hr AD IV 03/03/25 01:30 03/03/25 08:52 DC 03/03/25 01:31 250 MLS/HR Albuterol (DUOneb) 1 UDVIAL [id number] IH 02/24/25 00:00 02/24/25 14:15 DC 02/24/25 07:08 1 UDVIAL Alteplase, Recombinant (CathFLO 2MG VIAL) 4 mg ONCE IVCATH 02/25/25 09:30 02/25/25 11:00 DC 02/25/25 10:44 4 MG Aminocaproic Acid 13907 mg/Sodium Chloride 310 ml @ 25 mls/hr AD IV 03/02/25 15:00 03/02/25 15:15 DC Aminocaproic Acid 86986 mg/Sodium Chloride 480 ml @ 0 mls/hr AD PRN IV BLEEDING CONTROL 03/02/25 08:30 04/01/25 08:29 Amlodipine Besylate (NorvASC 5MG TAB) 10 mg DAILY PO 03/06/25 09:00 04/05/25 08:59 03/06/25 09:12 10 MG Aspirin (Aspirin 81mg Ec Tab) 81 mg DAILY PO 02/25/25 09:00 03/27/25 08:59 03/06/25 07:58 81 MG Budesonide (Pulmicort 0.5 Mg/2ml) 0.5 mg BIDRESP IH 02/24/25 18:00 03/26/25 17:59 03/06/25 06:56 0.5 MG Bumetanide 40 ml @ 0 mls/hr AD IV 02/28/25 09:30 03/02/25 14:57 DC 03/02/25 06:01 1 MLS/HR Calcium Gluconate 1 gm/Sodium Chloride 60 ml @ 0 mls/hr AD PRN IV HYPOCALCEMIA 03/02/25 15:00 04/01/25 14:59 03/03/25 02:29 100 MLS/HR Cefazolin Sodium (Ancef) 2 gm ONCALL IVP 03/01/25 23:00 03/02/25 15:20 DC Cefazolin Sodium (Ancef) 2 gm Q8H IVPB 03/02/25 20:00 03/03/25 12:01 DC 03/03/25 14:04 2 GM Desmopressin Acetate 40 mcg/ Sodium Chloride 50 ml @ 100 mls/hr AD STAT IJ 03/02/25 17:44 03/02/25 18:13 DC Dexmedetomidine/ Sodium Chloride (PRECEdex 400MCG/ 100ML-NS) 400 mcg PROTOCOL IV 02/24/25 10:30 03/02/25 14:57 DC Dextrose (D50w) 50 ml AD PRN IV HYPOGLYCEMIA PROTOCOL 03/01/25 13:00 03/02/25 15:25 DC Dextrose (D50w) 50 ml AD PRN IV HYPOGLYCEMIA PROTOCOL 03/02/25 15:00 04/01/25 14:59 Docusate Sodium (COLace 100MG CAP) 100 mg BID PO 03/03/25 09:00 04/02/25 08:59 03/05/25 08:41 100 MG Doxycycline Hyclate (Doxycycline Hyclate) 100 mg BID PO 02/24/25 21:00 03/06/25 20:59 03/06/25 07:59 100 MG Enoxaparin Sodium (Lovenox) 30 mg DAILY SQ 03/05/25 09:00 03/05/25 19:17 DC Epinephrine HCl 10 mg/Sodium Chloride 250 ml @ 0 mls/hr AD PRN IV TITRATE 03/02/25 08:30 04/01/25 08:29 Epinephrine HCl 10 mg/Sodium Chloride 250 ml @ 0 mls/hr AD PRN IV POST-OP CARDIOVASCULAR ORDERS 03/02/25 15:00 03/02/25 15:16 DC Famotidine (Pepcid 20mg Vial) 20 mg DAILY IV 03/03/25 09:00 03/06/25 07:40 DC 03/05/25 08:40 20 MG Folic Acid (FOLic ACID 1 MG TABLET) 1 mg DAILY PO 02/25/25 09:00 02/26/25 07:40 DC 02/25/25 09:07 1 MG Folic Acid (FOLic ACID 1 MG TABLET) 1 mg DAILY PO 02/25/25 09:00 03/27/25 08:59 03/06/25 07:59 1 MG Fondaparinux (Arixtra) 2.5 mg DAILY SQ 03/06/25 09:00 03/06/25 09:05 DC Furosemide (LASix 20MG TAB) 20 mg BID@09,17 PO 03/04/25 09:00 03/06/25 08:42 DC 03/06/25 07:59 20 MG Furosemide (LASix 20MG TAB) 20 mg Q12H PO 03/04/25 09:00 03/03/25 08:54 DC Furosemide (LASix 20MG VIAL) 20 mg Q12H IV 03/03/25 09:00 03/03/25 08:54 DC Furosemide (LASix 20MG VIAL) 20 mg Q12H IV 03/03/25 09:00 03/04/25 08:59 DC 03/03/25 20:10 20 MG Furosemide (LASix 40MG VIAL) 30 mg Q12H IV 03/06/25 09:00 03/07/25 21:01 03/06/25 09:11 30 MG Furosemide (LASix 40MG VIAL) 40 mg Q12H IV 02/24/25 08:30 02/24/25 10:20 DC 02/24/25 09:34 40 MG Furosemide (LASix 40MG VIAL) 40 mg Q8H IV 02/24/25 16:30 02/28/25 09:13 DC 02/28/25 08:26 40 MG Glucagon (Glucagon 1mg Kit) 1 mg AD PRN IM HYPOGLYCEMIA PROTOCOL 03/01/25 13:00 03/02/25 15:38 DC Glucagon (Glucagon 1mg Kit) 1 mg AD PRN IM HYPOGLYCEMIA PROTOCOL 03/02/25 15:00 04/01/25 14:59 Heparin Sodium (Porcine) (HEParin 5,000 UNIT VIAL) 5,000 unit BID SQ 02/24/25 09:00 03/02/25 14:57 DC 03/01/25 20:22 5,000 UNIT Hydralazine HCl (APRESOLine 20MG INJ) 10 mg Q6H PRN IV ADMINISTER FOR SBP > 160 03/06/25 09:00 04/05/25 08:59 Insulin Human Regular 100 unit/ Sodium Chloride 100 ml @ 0 mls/hr AD IV 03/02/25 15:00 03/04/25 14:59 DC 03/02/25 19:17 4 MLS/HR Ipratropium [employer] (AtrovENT UD) 0.5 MG [id number] IH 02/24/25 14:00 03/26/25 13:59 03/06/25 06:56 0.5 MG Lactulose (Constulose 20gm/ 30ml Udcup) 20 gm BID PRN PO CONSTIPATION 03/03/25 09:00 04/02/25 08:59 Linezolid 300 ml @ 150 mls/hr Q12H IV 02/24/25 11:00 03/06/25 10:59 DC 03/05/25 22:13 150 MLS/HR Magnesium Hydroxide (Milk Of Magnesium 30ml) 30 ml DAILY PRN PO CONSTIPATION 03/03/25 09:00 04/02/25 08:59 Magnesium Sulfate 50 ml @ 12.5 mls/hr AD PRN IV MAG LEVEL LESS THAN 2.0 03/02/25 15:00 04/01/25 14:59 03/06/25 05:21 12.5 MLS/HR Magnesium Sulfate 50 ml @ 0 mls/hr PROTOCOL PRN IV low magnesium 02/25/25 11:00 03/02/25 14:57 DC 02/25/25 11:27 25 MLS/HR Melatonin (Melatonin) 10 mg HS PRN PO INSOMNIA 02/24/25 11:00 03/02/25 14:57 DC 03/01/25 23:53 10 MG Metolazone (zarOXOlyn) 5 mg DAILY PO 02/25/25 09:00 03/02/25 14:57 DC 03/01/25 14:49 5 MG Metoprolol Tartrate (loprESSOR) 12.5 mg BID PO 03/04/25 09:00 03/05/25 12:08 DC 03/05/25 08:41 12.5 MG Metoprolol Tartrate (loprESSOR) 25 mg BID PO 03/05/25 21:00 04/04/25 20:59 03/06/25 07:59 25 MG Montelukast Sodium (SinguLAIR) 10 mg DAILY PO 02/25/25 09:00 03/27/25 08:59 03/06/25 07:59 10 MG Morphine Sulfate (morPHINE 2MG SYG) 0.5 mg Q2H PRN IV MODERATE PAIN (4-6) 03/02/25 15:00 03/03/25 14:59 DC Morphine Sulfate (morPHINE 2MG SYG) 1 mg Q2H PRN IV SEVERE PAIN (7-10) 03/02/25 15:00 03/03/25 14:59 DC Nitroglycerin/ Dextrose 0 ml @ 0 mls/hr AD IV 03/02/25 15:00 03/05/25 14:59 DC Norepinephrine Bitartrate 250 ml @ 0 mls/hr AD PRN IV TITRATE 03/02/25 08:30 04/01/25 08:29 Norepinephrine Bitartrate 8 mg/ Dextrose 250 ml @ 0 mls/hr AD PRN IV POST-OP CARDIOVASCULAR ORDERS 03/02/25 15:00 03/02/25 15:16 DC Nystatin (NYSTatin 408979 UNIT/ML 5ML UDCUP) 5 ml QID PO 02/24/25 17:00 03/26/25 16:59 03/06/25 08:00 5 ML Ondansetron HCl (zoFRAN 4MG INJ) 4 mg Q6H PRN IV NAUSEA/VOMITING 03/02/25 15:00 04/01/25 14:59 03/05/25 21:06 4 MG Ondansetron HCl (zoFRAN 4MG INJ) 4 mg Q6H PRN IVP NAUSEA/VOMITING 02/24/25 21:00 03/02/25 14:57 DC 03/02/25 12:05 4 MG Pantoprazole Sodium (PROTonix 40MG INJ) 40 mg DAILY IVP 02/24/25 11:00 03/02/25 14:57 DC 03/02/25 11:54 40 MG Pharmacy Profile Note (Lace Assessment) 1 each AD MISC 02/24/25 10:30 02/24/25 10:32 DC Pharmacy Profile Note (Lace Assessment) 1 each AD MISC 02/25/25 15:30 02/25/25 15:17 DC Pharmacy Profile Note (Pharmacy Communication) 1 each ONCE MISC 02/23/25 23:00 02/23/25 23:48 DC Pharmacy Profile Note (Pharmacy Communication) 1 each ONCE MISC 02/25/25 15:30 02/25/25 15:17 DC Piperacillin Sod/ Tazobactam Sod (Zosyn 3.375gm+NS 50ml) 3.375 gm Q8H IV 02/24/25 05:00 03/06/25 04:59 DC 03/05/25 21:05 3.375 GM Potassium Phosphate 250 ml @ 42 mls/hr AD PRN IV LOW PHOS LEVEL 03/02/25 15:00 04/01/25 14:59 03/03/25 09:48 42 MLS/HR Potassium Chloride 100 ml @ 100 mls/hr AD PRN IV POTASSIUM PROTOCOL 02/25/25 11:00 02/27/25 10:47 DC 02/27/25 08:24 100 MLS/HR Potassium Chloride 100 ml @ 100 mls/hr AD PRN IV POTASSIUM PROTOCOL 02/25/25 11:00 03/02/25 14:57 DC 03/02/25 11:54 100 MLS/HR Potassium Chloride 100 ml @ 100 mls/hr AD PRN IV HYPOKALEMIA 03/02/25 15:00 04/01/25 14:59 03/06/25 05:21 100 MLS/HR Potassium Chloride (K-Dur 10meq Sr Tab) 10 meq AD PRN PO POTASSIUM PROTOCOL 02/27/25 11:00 03/02/25 14:57 DC 03/01/25 05:39 10 MEQ Potassium Chloride (K-Dur/Klor-Con 20meq) 10 meq AD PRN PO POTASSIUM PROTOCOL 02/25/25 11:00 02/27/25 10:48 DC Potassium Chloride (K-Dur/Klor-Con 20meq) 20 meq AD PRN PO POTASSIUM PROTOCOL 03/06/25 09:00 04/05/25 08:59 03/06/25 09:17 20 MEQ Potassium Chloride (K-Dur/Klor-Con 20meq) 20 meq DAILY PO 03/01/25 09:00 03/02/25 14:57 DC 03/01/25 14:50 20 MEQ Potassium Chloride (KCl 10% Elixir 20meq/15ml) 10 meq AD PRN PO POTASSIUM PROTOCOL 02/25/25 11:00 03/02/25 14:57 DC Propofol 100 ml @ 0 mls/hr AD PRN IV SEDATION 03/02/25 15:00 03/06/25 14:59 Sodium Bicarbonate (Sodium Bicarb 50meq 50ml Vial) 50 meq AD PRN IV OTHER[SEE DOSING INSTRUCTIONS] 03/02/25 15:00 03/05/25 14:59 DC 03/02/25 22:09 50 MEQ Sodium Chloride 500 ml @ 0 mls/hr AD IV 03/02/25 15:00 04/01/25 14:59 03/03/25 01:32 500 MLS/HR Sodium Chloride 500 ml @ 0 mls/hr Q0M IV 03/03/25 01:30 03/03/25 08:52 DC Sodium Chloride 1,000 ml @ 0 mls/hr Q0M IV 03/02/25 13:00 04/01/25 12:59 Sodium Chloride 1,000 ml @ 10 mls/hr ONCE IV 03/02/25 15:00 03/03/25 14:59 DC 03/02/25 15:00 10 MLS/HR Sodium Chloride 1,000 ml @ 75 mls/hr [id number] IV 02/23/25 20:00 02/23/25 23:03 DC 02/23/25 20:08 75 MLS/HR Sodium Chloride 1,000 ml @ 150 mls/hr Q6H40M IV 03/01/25 13:00 03/01/25 15:37 DC 03/01/25 14:50 150 MLS/HR Sodium Chloride (NS Flush 10ml) 10 ml Q8H PRN IVP IV LINE FLUSH 03/02/25 15:00 04/01/25 14:59 Thiamine HCl (Vitamin B-1) 100 mg DAILY PO 02/25/25 09:00 03/27/25 08:59 03/06/25 07:59 100 MG Tramadol HCl (UltRAM) 25 mg Q6H PRN PO MODERATE PAIN (4-6) 03/02/25 15:00 03/02/25 15:33 DC Tramadol HCl (UltRAM) 50 mg Q6H PRN PO SEVERE PAIN (7-10) 03/02/25 15:00 03/02/25 15:39 DC Tramadol HCl (UltRAM) 50 mg Q6H PRN PO MODERATE PAIN (4-6) 03/03/25 03:30 03/08/25 03:29 03/06/25 09:12 50 MG Vancomycin HCl (Vancomycin Protocol) 1 each AD IV 02/23/25 19:00 02/23/25 19:33 DC Vasopressin 40 units/Sodium Chloride 40 ml @ 0 mls/hr PROTOCOL IV 03/03/25 01:30 04/02/25 01:29 DIAGNOSTICS / RADIOLOGY: [ ] PATIENT: ADAM MOE III MR#: [id number] : 1980 SEX: M AGE: 44 LOCATION: [facility] ORDER 2300 STATUS: ADM IN REPORT#: [id number] SERVICE 0400 REASON: s/p MICS AVR ORDERING PHYSICIAN: DESIREE GERARDO MD PROCEDURE: CXR1VW - CHEST 1VW CHEST 1VW HISTORY: Post valvular replacement COMPARISON: 03/05/2025 FINDINGS: A frontal projection of the chest was obtained. There are bilateral pulmonary infiltrates suggestive of pulmonary vascular congestion with possible superimposed pneumonitis. Poststernotomy changes are seen. The heart is enlarged. Degenerative changes of the thoracolumbar spine are present. No evidence of aortic calcification is seen. IMPRESSION: 1. Bilateral pulmonary infiltrates are seen suggestive of pulmonary vascular congestion with possible superimposed pneumonitis. Interval worsening is seen. DICTATED BY: CAROL HOWARD MD DATE: 03/06/25 100 ELECTRONICALLY SIGNED BY: CAROL HOWARD MD DATE: 03/06/25 100 ASSESSMENT: gram positive bacteremia POA Sepsis, POA Pneumonia, POA Acute hypoxic respiratory failure on CPAP, ABG confirms PO2 less than 60 mmHg, POA Acute on chronic diastolic heart failure with exacerbation POA Acute kidney injury stage II, POA Non ST segment elevated LA, most likely type 2 LA secondary to oxygen ischemic POA ITP, POA Uncontrolled diabetes mellitus type 2, POA Diabetic nephropathy, POA Cocaine, alcohol and tobacco use disorder, POA Fidelina esophagitis, POA Matthews's cyst, hematoma, left knee, POA Electrolyte abnormalities, POA Chronic anemia, POA Severe aortic valve insufficiency secondary to infective endocarditis, with large non-coronary cusp vegetation (1.4 cm), EF preserved planned for aortic valve replacement Solomon valve infective endocarditis, subacute, gram-positive (Micrococcus) and gram-negative (E. coli, Klebsiella) pathogens, on Zosyn, Linezolid, Doxycycline Bilateral multifocal pneumonia with superimposed pulmonary edema, improving clinically, likely secondary to endocarditis and fluid overload Acute on chronic kidney injury, Hypokalemia Volume overload secondary to congestive heart failure and valvular disease, on diuresis Chronic normocytic anemia, New-onset diabetes mellitus type 2, poorly controlled, monitor glucose closely Electrolyte imbalance hyponatremia, hypokalemia, hypomagnesemia, on repletion protocol Proteinuria with diabetic nephropathy PLAN: WBC count is normal, hemoglobin and hematocrit are 8.6 and 25.5 improved [place] [address] low possible dilutional/thrombotic consumption. Sodium is low normal, potassium is 3.4 Borderline low and BUN and creatinine are 30/1.8 improved renal function. Improving hemodynamically, off drips. Transfused 1 packed RBC today. Mild metabolic alkalosis likely due to diuretics and volume shift. DVT prophylaxis held due to hematoma and chest tube in place, plan to restart post removal and clearance for left atrial thrombus also. Bioprosthetic valve function awaiting baseline postop echo. Continue metoprolol tartrate 12.5 mg b.i.d., continue [id number] mg p.o. daily Continue furosemide 20 mg IV q.12h for volume management. Hold enoxaparin 40 mg subQ daily, resume after chest tube removal and platelet recovery. Infectious disease: * Continue Doxycycline * Repeat blood cultures if febrile or WBC rises ID on board Continue IV linezolid q.12h. Continue Zosyn 3.375 g IV q.8h. Continue IV doxycycline 100 mg b.i.d.. Noted blood cultures and sputum cultures. Pulmonary: Critical Care consult has been placed. Supplemental oxygen support, CPAP support and BiPAP setting as necessary to maintain SpO2 levels greater than 92 Budesonide, albuterol ipratropium nebulizations. Monitor ABGs, O2 sats, chest x-ray. Appreciate Pulmonary and critical Care consult suggestions. * Maintain O? via nasal cannula at 1L/min * Wean off as tolerated * Daily chest physiotherapy; monitor ABG Cardiovascular: Continue LasiX IV furosemide 30 mg q.12h per CTS Plan to transition to oral Lasix 1 chest tube out. Monitor UOP P, daily weights. Continue aspirin 81 mg p.o. daily. Continue metoprolol tartrate 12.5 mg b.i.d.. Wean off pressers as per ICU protocol until fully hemodynamically weaned Continue telemetry monitoring Monitor for post-op arrhythmia, tamponade, ischemia Daily CXR Close hemodynamic monitoring with bordereau clerk troponin, BNP. Continue telemetry monitoring * Proceed with left heart catheterization ? aortic valve replacement * Monitor troponins and BNP; follow-up Echo post-op Renal/metabolic Monitor CR, BUN, GFR. Avoid nephrotoxins. Monitor glucose, proteinuria. Replete potassium, magnesium, phosphorus. for per facility protocol. * Strict I/Os, daily BMP * Replace K?, Mg? per protocol * Hold nephrotoxic meds PRN GI/nutrition Pantoprazole IV daily. Monitor for GI bleeding. Add thiamine, folate multivitamins if chronic alcohol use. Hematology Monitor platelets for ITP versus reactive thrombocytosis. Consider iron studies, B12, reticulocyte count for anemia. Monitor HGB, hematocrit and platelet counts daily Consider Hematology input if platelet count trends [place] [id number] or bleeding risk increases. Awaiting Hematology recommendation for anticoagulation treatment. DVT prophylaxis with ambulation. Musculoskeletal: Monitor left knee swelling Avoid NSAIDs due to BRENDAN. Ortho referral if worsening. Sedation/neuro: Precedex for sedation, taper as tolerated. Determine at bedtime for sleep hygiene. ICU delirium prevention with 3 orientation, mobility and lytes during the day. Endocrine: Glucose control with insulin. Monitor for ketones and TKA signs. Consider A1c when stable. Substance use: Assess for withdrawal. CIWA protocol p.r.n. if needed. Offered smoking cessation and substance abuse counseling. Case management consult has been placed for further discharge planning. ATTESTATION BY PHYSICIAN I have seen and examined the patient. I reviewed the documentation, medical decision making, and treatment plan as noted by the resident above. I agree with the findings and plan of care. Benoit Martinez MD, RAGHAVA R MD Mar 06, 2025 11:50
[2025-03-06] MEDS ORDERED: PHARMACY COMMUNICATION MISC SCH (12:30)
[2025-03-06] MEDS: LINEZOLID 600 MG/ISO-OSM 300 ML IV SCH (14:12)
[2025-03-06] MEDS: ZOSYN 3.375GM +NS 50ML IVPB SCH (14:12)
[2025-03-06 14:27] LABS: % IRON SATURATION 103.7 % (30-44)
[2025-03-06] MEDS: FONDAPARINUX SODIUM 2.5 MG/0.5 ML SQ ONE (15:12)
--- NOTE | 2025-03-06 17:25 | CONS ---
CONSULT NOTE: 54-year-old male with a complex medical history including recent hospitalization with a Gram-positive bacteremia secondary to Staph aureus, severe sepsis and endocarditis with echogenic vegetations on noncoronary cusps and right coronary cusp as well as left atrial appendage clot on January 11, 2025 presented to the ED days history of worsening shortness of breath. He was discharged on January 31, 2025 with long-term IV linezolid via PICC line for infective endocarditis. Patient actually was found to have endocarditis. With the patient in the obese acute aortic insufficiency status post surgery. Patient with bacteremia receiving antibiotic treatment. Patient with anemia and thrombocytopenia. It seems the patient is suspicious of having heparin-induced thrombocytopenia. REVIEW OF SYSTEMS CONSTITUTIONAL: Positive for fatigue, mild subjective fever. NEUROLOGICAL: Denies headache, amaurosis fugax, motor weakness, sensory deficit, vertigo/spinning sensation, gait abnormalities, or tremors. ENT: No hearing loss, otalgia, otorrhea, rhinitis, rhinorrhea, hoarseness, or sore throat. CARDIOVASCULAR: Palpitations, no angina. PULMONARY: Shortness of breath, cough, no hemoptysis. SLEEP: Denies morning headaches, daytime somnolence or napping. Denies difficulty falling asleep, staying asleep, waking from sleep. Denies knowledge of snoring. GASTROINTESTINAL: Denies any type of dysphagia to either liquids or solids. Denies nausea, vomiting, pyrosis, early satiety, abdominal pain, diarrhea, constipation, or changes in stool consistency or caliber. Denies coffee-ground emesis, hematemesis, hematochezia, or melanotic stools. GENITOURINARY: Denies frequency, urgency, nocturia, hematuria or incontinence (Storage/Irritative symptoms.) Low urinary stream, straining to void, urinary intermittency or hesitancy, splitting of the voiding stream, terminal dribbling. ENDOCRINOLOGIC: Denies polyuria, polydipsia, polyphagia or heat/cold intoleranc es. HEMATOLOGIC: Denies thrombophilia/previous clots, or coagulopathy/bleeding disorders. ONCOLOGIC: Denies personal history of malignancy. DERMATOLOGIC: Denies rashes or pruritus. PSYCHIATRIC: Denies any suicidal or homicidal ideation. Denies hallucinations. PAST MEDICAL HISTORY: fatty liver by CT on 01/05/2025 Severe sepsis Gram-positive bacteremia secondary to Staphylococcus aureus, Hypodense echogenic mobile vegetation to right coronary cusp leaflet on echocardiogram 01/05/2025 Left atrial appendage clot present. on DRAKE 01/11 non coronary cusp leaflet has vegetation that measures 1.8 x 1.1 cm. on DRAKE 01/11 Urinary tract infection, secondary to Klebsiella pneumoniae, Pneumonia, Acute kidney injury, POA New onset Uncontrolled Diabetes mellitius type2, POA Cocaine abuse Alcohol abuse Tobacco dependence Significant proteinuria Diabetic nephropathy Gallstones,,Fidelina esophagitis on EGD 01/11 SURGICAL HISTORY: [Heart stent] PAST SOCIAL HISTORY: Patient smokes one pack of cigarettes daily but only5 times a week. Patient [id number] beers daily but also only5 times a week. Patient reports occasional use of both marijuana and cocaine. Patient denies any other illegal drug use. 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 Patient has poor access to health care due to lack of health insurance. Patient is typically independent of all his ADLs. Patient denies difficulty pain is bills. Patient lives with his daughter Hannah Jin FAMILY HISTORY: Patient reports no known family medical history. Coded Allergies: No Known Drug Allergies (Unverified Allergy, Unknown, 12/18/15) PHYSICAL EXAM GENERAL APPEARANCE ill appearing, alert NEUROLOGICAL: Cranial nerves II-XII grossly intact. Motor is 5/5 in bilateral upper and lower extremities proximal to distal. No sensory deficits. HEENT: Face is symmetric. Pupils are equal and reactive. Extraocular movements are intact. NECK: Supple. No JVD. No thyromegaly. No submental, submandibular, pre- /postauricular, occipital or supraclavicular lymphadenopathy. CHEST: Chest tube in place. LUNGS: Decreased air entry bilaterally CARDIOVASCULAR: Regular. S1 and S2 normal. No appreciable rubs, murmurs or gallops. Tachycardia present ABDOMEN: Soft, nontender, and nondistended. There is no rebound, voluntary guarding, or rigidity. : Deferred. No Ortega. SKIN: No skin breakdown. Assessment 1. Anemia 2. Thrombocytopenia 3. Severe aortic valve insufficiency due to endocarditis s/p surgery 4. Possibility of heparin-induced thrombocytopenia 5. Gram-positive bacteremia 6. Cocaine abuse 7. Acute on chronic renal failure 8. Acute respiratory failure with the patient is improving. 9. Diabetes mellitus Plan 1. Peripheral blood smear showed red blood cells to be normocytic normochromic. There was no fragment cell or schistocyte. There is no teardrop cell. There is no pelger-Huet cell. White blood cell with no blasts. There is large platelet consistent with peripheral consumption of the platelet. There was no schistocytes or fragments in which rule out TTP and DIC. 2. There was hypersegmented neutrophils. This patient to be started on folic acid 1 mg p.o. daily and vitamin B12 1000 mcg p.o. daily. 3. 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 We will ask for SPEP, UPEP and free light chain. If there is monoclonal protein we will do a bone marrow biopsy. 4. This patient will need anticoagulation. So this patient actually could benefit from Arixtra 2.5 mg subcu daily. 5. Continue antibiotic treatment as per infectious disease specialistLAB RESULTS 03/06/25 13:39: Iron Level 140#, Total Iron Binding Capacity 135L, Percent Iron Saturation 103.7H 03/06/25 04:34: White Blood Count 8.5, Red Blood Count 2.87L, Hemoglobin 8.6L, Hematocrit 25.5L, Mean Corpuscular Volume 88.9, Mean Corpuscular Hemoglobin 30.0, Mean Corpuscular Hemoglobin Concent 33.7, Red Cell Distribution Width 15.6H, Platelet Count 88L, Mean Platelet Volume 11.4H, Nucleated Red Blood Cells 0.0, Sodium Level 135L, Potassium Level 3.4L, Chloride Level 100L, Carbon Dioxide Level 28, Blood Urea Nitrogen 30H, Creatinine 1.8H, Glomerular Filtration Rate Calc 47, Random Glucose 117H, Total Calcium 8.5, Magnesium Level 1.80 03/05/25 16:05: Whole Blood Glucose 72 Laboratory Tests Test 03/06/25 04:34 03/06/25 13:39 White Blood Count 8.5 K/uL (4.8-10.8) Red Blood Count 2.87 MIL/uL (4.50-6.20) L Hemoglobin 8.6 g/dL (14.0-18.0) L Hematocrit 25.5 % (42-54) L Mean Corpuscular Volume 88.9 fL (79-99) Mean Corpuscular Hemoglobin 30.0 pg (27.0-33.0) Mean Corpuscular Hemoglobin Concent 33.7 g/dL (32.0-36.0) Red Cell Distribution Width 15.6 % (11.0-15.5) H Platelet Count 88 K/uL (130-400) L Mean Platelet Volume 11.4 fL (7.5-10.5) H Nucleated Red Blood Cells 0.0 % (0.0-0.19) Sodium Level 135 mmol/L (136-145) L Potassium Level 3.4 mmol/L (3.5-5.1) L Chloride Level 100 mmol/L (101-111) L Carbon Dioxide Level 28 mmol/L (21-32) Blood Urea Nitrogen 30 mg/dL (7-18) H Creatinine 1.8 mg/dL (0.5-1.3) H Glomerular Filtration Rate Calc 47 mL/min (>90) Random Glucose 117 mg/dL (70-105) H Total Calcium 8.5 mg/dL (8.5-10.1) Magnesium Level 1.80 mg/dL (1.80-2.40) Iron Level 140 mcg/dL (65-175) # Total Iron Binding Capacity 135 mcg/dL (250-450) L Percent Iron Saturation 103.7 % (30-44) H LEOPOLDO AGUILAR MD Mar 06, 2025 17:25
--- NOTE | 2025-03-06 20:43 | PN ---
INFECTIOUS DISEASE PROGRESS NOTE Date of Service: Mar 06, 2025 SUBJECTIVE: This is a 44-year-old male patient who was seen and examined at bedside in the ICU room 216 patient however has been downgraded to PCCU and pending room availability. Patient is awake, alert and oriented x3. Patient is status post bioprosthetic aortic valve replacement on 03/02/2025. Patient is sitting up on the bedside chair and tolerating well. Minimal drainage observed on the dressing of the chest tube. Linezolid and Zosyn were renewed. Renal function continues to imp rove, BUN is 30 and creatinine of 1.8. Edema to lower extremities is improving. We will continue to follow patient's care. PHYSICAL EXAM EYES: Anicteric. Pupils equal and reactive. HENT: No oral thrush seen, moist Oral mucosa. NECK: Supple, no JVD or thyromegaly. LUNGS: Lung sounds clear. CHEST: Surgical incision to his mid chest with dressing in place. CARDIOVASCULAR: S1, S2 regular. No murmur heard. Chest tube. ABDOMEN: Soft, non tender, bowel sounds present, no organomegaly. CENTRAL NERVOUS SYSTEM: Awake, alert, oriented x 3. SKIN: No rashes, no swelling. Lower extremity edema. LYMPHATICS: No peripheral lymphadenopathy. MUSCULOSKELETAL: No joint swelling, erythema or tenderness. EXTREMITIES: No cyanosis or clubbing. Lower extremities edema. BACK: No deformity, no pressure ulcer. GENITOURINARY: No dysuria or hematuria. Vital Sign (Last 12 Hours) 03/06/25 03/06/25 03/06/25 03/06/25 12:00 14:12 15:03 16:30 Temp 98.1 97.5 Pulse 84 84 88 Resp 15 20 17 B/P (MAP) 134/97 109/51 Pulse Ox 99 98 100 O2 Delivery Room Air Room Air* Room Air Aerosol Mask+ O2 Flow Rate 0 FiO2 N/A 03/06/25 03/06/25 03/06/25 19:14 19:22 19:22 Temp 98.4 Pulse 89 91 91 Resp 18 19 19 B/P (MAP) 125/87 Pulse Ox 100 O2 Delivery Room Air N/A Room Air FiO2 21 Intake & Output (last 24hrs) 03/05/25 03/05/25 03/06/25 15:00 23:00 07:00 Intake Total 822.5 ml 212.5 ml 346.0 ml Output Total 300 ml 750 ml 560 ml Balance 522.5 ml -537.5 ml -214.0 ml LABS: Laboratory: Test 03/06/25 13:39 03/06/25 04:34 03/05/25 16:05 Range/Units Iron Level 140 # 65-175 mcg/dL Total Iron Binding Capacity 135 L 250-450 mcg/dL Percent Iron Saturation 103.7 H 30-44 % White Blood Count 8.5 4.8-10.8 K/uL Red Blood Count 2.87 L 4.50-6.20 MIL/uL Hemoglobin 8.6 L 14.0-18.0 g/dL Hematocrit 25.5 L 42-54 % Mean Corpuscular Volume 88.9 79-99 fL Mean Corpuscular Hemoglobin 30.0 27.0-33.0 pg Mean Corpuscular Hemoglobin Concent 33.7 32.0-36.0 g/dL Red Cell Distribution Width 15.6 H 11.0-15.5 % Platelet Count 88 L 130-400 K/uL Mean Platelet Volume 11.4 H 7.5-10.5 fL Nucleated Red Blood Cells 0.0 0.0-0.19 % Sodium Level 135 L 136-145 mmol/L Potassium Level 3.4 L 3.5-5.1 mmol/L Chloride Level 100 L 101-111 mmol/L Carbon Dioxide Level 28 21-32 mmol/L Blood Urea Nitrogen 30 H 7-18 mg/dL Creatinine 1.8 H 0.5-1.3 mg/dL Glomerular Filtration Rate Calc 47 >90 mL/min Random Glucose 117 H 70-105 mg/dL Total Calcium 8.5 8.5-10.1 mg/dL Magnesium Level 1.80 1.80-2.40 mg/dL Whole Blood Glucose 72 70-110 MG/DL ASSESSMENT: Gram-positive Bacteremia. Aortic valve Endocarditis with aortic insufficiency, s/p aortic valve replacement on 03/02/2025. Bacterial Pneumonia. Leukocytosis, resolved. Acute on chronic diastolic heart failure. Acute on chronic renal failure, improving. Morbid obesity. Hypoxic respiratory failure, resolved. Anemia requiring blood transfusion. Hypokalemia. PLAN: Continue linezolid IV. Continue Zosyn IV. Continue doxycycline. Continue diuretics. Oxygen support as needed. Continue pain management. Continue chest tube care. Avoid nephrotoxic medications. This case was reviewed and discussed with my supervising physician and the above assessment and plan was formulated and agreed upon. ATTESTATION BY PHYSICIAN I have seen and examined the patient. I reviewed the documentation, medical decision making, and treatment plan as noted by the mid-level provider above. I agree with the findings and plan of care. JANUARY CARLSON MD, MIRTA L [facility] Mar 06, 2025 20:43
[2025-03-07] VITALS (13 sets, daily range): BP systolic 106–127; BP diastolic 57–85; PULSE 71–87; RESP 17–20; TEMP 97.4–98.6; O2SAT 97–99
--- NOTE | 2025-03-07 01:02 | PN ---
SUBJECTIVE: The patient is postop day #4 from minimally invasive aortic valve replacement. The patient is doing well; however, he was still having large amounts of serous drainage from his chest tube. The patient otherwise offers no complaints. OBJECTIVE: VITAL SIGNS: Reveal pulse of 85, his blood pressure is 171/86, respirations are 21. HEENT: Reveals normocephalic, atraumatic. Extraocular movements intact. He is off of oxygen. His right cervical central venous line is ____ and there is a bandage on his right neck. CHEST: His thoracotomy wound is bandaged. His chest tubes are in place with a total of 480 mL of output over the last 24 hours. HEART: S1, S2 and regular with a snap per second heart sound. ABDOMEN: Reveals positive bowel sounds. EXTREMITIES: He has CHARMAINE stockings and SCDs on his lower extremities. ASSESSMENT AND PLAN: * Status post minimally invasive aortic valve replacement, postop day #4. Continue aspirin and metoprolol. We will increase his Lasix to 30 mg IV twice a day for 4 doses. We will need to monitor his creatinine, which is 1.8 down from 2.1. * Hypertension. In addition to his metoprolol, we will add Norvasc 5 mg daily and p.r.n. hydralazine for systolic blood pressure greater than 140 mmHg. * Thrombocytopenia. There is a concern for heparin-induced thrombocytopenia. The patient has been placed on Arixtra by Hematology. We will continue to monitor platelet count which is currently 88,000, up from 79,000. HIT panel is pending. The patient should avoid heparin and heparin products. * Deep venous thrombosis prophylaxis. The patient should be covered with his Arixtra and the SCDs. Time spent 30 minutes. The patient ____. TID: [id number] RECEIPT: [id number]
[2025-03-07 04:07] LABS: BASOPHILS # (AUTO) 0.05 K/uL (0.00-0.20); BASOPHILS % (AUTO) 0.6 % (0.0-5.0); EOSINOPHILS # (AUTO) 0.37 K/uL (0.00-0.70); EOSINOPHILS % (AUTO) 4.1 % (0.0-8.0); HEMATOCRIT 25.7 % (42-54); IMMATURE GRANULOCYTE ABSOLUTE 0.03 K/uL (0-1); LYMPHOCYTES # (AUTO) 1.9 K/uL (1.0-4.8); LYMPHOCYTES % (AUTO) 20.7 % (21.0-51.0); MEAN CORPUSCULAR HEMOGLOBIN 29.4 pg (27.0-33.0); MEAN CORPUSCULAR HGB CONC 33.5 g/dL (32.0-36.0); MEAN CORPUSCULAR VOLUME 87.7 fL (79-99); MONOCYTES # (AUTO) 0.7 K/uL (0.1-1.0); NEUTROPHILS % (AUTO) 66.3 % (40.0-77.0); PLATELET COUNT (AUTO) 113 K/uL (130-400); RED BLOOD CELL COUNT(AUTO) 2.93 MIL/uL (4.50-6.20); RED CELL DISTRIBUTION WIDTH 14.8 % (11.0-15.5); WHITE BLOOD COUNT (AUTO) 9.1 K/uL (4.8-10.8)
[2025-03-07 04:15] LABS: CREATININE 1.6 mg/dL (0.5-1.3); POTASSIUM 3.5 mmol/L (3.5-5.1)
--- NOTE | 2025-03-07 08:00 | PN ---
[facility] PROGRESS NOTE Date Patient Seen: Mar 07, 2025 Time of Visit: 08:58 Supervising Physician: Moy Zamarripa mD Primary Care Physician: Self Referral Outpatient Specialists: Inpatient Consults: Dr Dumont PROBLEM LIST: - Acute Hypoxic respiratory failure POA Resolved -Acute on chronic diastolic heart failure w/ EF 50-55% on 2 D echo POA, resolving - Aortica Valvular vegetation present 1.4cm & Severe Aortic regurgitation, s/p Aortic valve replacement 03/02/25 Acute thrombocytopenia, r/o HIT on Arixtra Severe multifocal bilateral Bacterial Pneumonia SCAP score 20 Points, sputum culture positive for E coli and Klebsiella, treated -Bilateral Pleural Effusions POA -Acute Cystitis POA, treated -Normocytic anemia -Acute on chronic CKD stage IIIb -Fidelina esophagitis identified on EGD done 01/11/2025 -Bacterial endocarditis affecting the aortic valve (1.81x1.17 cm mass attached to the noncoronary cusp leaflet) identified on DRAKE done 01/11/2025 -Left atrial appendage thrombus identified on DRAKE done 01/11/2025 -Elevated troponin (type II VT) -thrombocytosis on admission, now with thrombocytopenia -Liver cirrhosis MELD Score 22 Points ( 19.6 % Estimated 3 month Mortality) -cholelithiasis -Esophagitis by EGD 01/11/2025 -CAD s/p PCI with IA Integrilin, aspiration thrombectomy, PTCA, and KISHORE placement (Promus 4.0x16 mm) in the proximal LAD done on 12/19/2015 -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 sitting up in recliner chair. He denies any chest pain palpitations or shortness for breath. Mid vertical sternal incision healing well. No signs and symptoms of infection. + two pitting edema to bilateral lower extremities noted patient reports that is actually improved. He is breathing without any respiratory distress saturating 97% on room air. Urine output 1.1 L with a chest tube drained 120 mL in the last 24 hours. Per CV recommendations remove chest tube today. On laboratory white count normal 9.1 H&H stable 8.6/25.7 with a platelet count of 113 K improved from yesterday which was88 K. [id number] potassium of 3.5 CO2 of 29 BUN25 creatinine 1.6 GFR of54 improved from yesterday magnesium 1.60 covered per protocol. REVIEW OF SYSTEMS: General: No malaise or fever. Neurological: No fainting episodes or seizures. HEENT: No nasal congestion or nasal secretion. Respiratory: No cough, shortness of breath, or wheezing Cardiac: No chest pain or palpitations. Gastrointestinal: No vomiting or diarrhea. Genitourinary: No dysuria hematuria. Skin: No rashes or lesions. Hematological: No bruises or bleeding. Musculoskeletal: +Bilateral extremity swelling Psychiatric: No depression or panic attacks. PHYSICAL EXAM: GENERAL: alert, weak, awake oriented x 3, respiratory distress on room air saturating 97%. HEENT: EOMI, Sclera non icteric, moist mucosa NECK: Supple, no JVD, trachea midline LUNGS: Clear breath sounds bilaterally. No wheezes. Chest tube HEART: Regular rate and rhythm. Normal S1 and S2, without murmurs ABD: Obese Abdomen soft, nontender. Bowel sounds present EXT: No clubbing cyanosis 2+ bilateral lower extremity edema NEURO: Alert and oriented to person, follows commands Vital Signs (last 8hr) Date Time Temp Pulse Resp B/P (MAP) Pulse Ox O2 Delivery O2 Flow Rate FiO2 03/07/25 07:05 77 19 03/07/25 07:04 77 19 N/A Room Air 21 03/07/25 07:00 97.5 77 17 119/80 100 Room Air 03/07/25 03:12 98.1 74 20 109/57 98 Room Air LABS: Hematology Labs: Test 03/07/25 03:50 Range/Units White Blood Count 9.1 4.8-10.8 K/uL Red Blood Count 2.93 L 4.50-6.20 MIL/uL Hemoglobin 8.6 L 14.0-18.0 g/dL Hematocrit 25.7 L 42-54 % Mean Corpuscular Volume 87.7 79-99 fL Mean Corpuscular Hemoglobin 29.4 27.0-33.0 pg Mean Corpuscular Hemoglobin Concent 33.5 32.0-36.0 g/dL Red Cell Distribution Width 14.8 11.0-15.5 % Platelet Count 113 #L 130-400 K/uL Mean Platelet Volume 11.7 H 7.5-10.5 fL Immature Granulocyte % (Auto) 0.3 0-1 % Neutrophils (%) (Auto) 66.3 40.0-77.0 % Lymphocytes (%) (Auto) 20.7 L 21.0-51.0 % Monocytes (%) (Auto) 8.0 3.0-13.0 % Eosinophils (%) (Auto) 4.1 0.0-8.0 % Basophils (%) (Auto) 0.6 0.0-5.0 % Neutrophils # (Auto) 6.0 1.8-7.7 K/uL Lymphocytes # (Auto) 1.9 1.0-4.8 K/uL Monocytes # (Auto) 0.7 0.1-1.0 K/uL Eosinophils # (Auto) 0.37 0.00-0.70 K/uL Basophils # (Auto) 0.05 0.00-0.20 K/uL Absolute Immature Granulocyte (auto 0.03 0-1 K/uL Nucleated Red Blood Cells 0.0 0.0-0.19 % Chemistry Labs: Test 03/07/25 03:50 03/06/25 13:39 03/06/25 04:34 03/05/25 16:05 Range/Units Sodium Level 135 L 136-145 mmol/L Potassium Level 3.5 3.5-5.1 mmol/L Chloride Level 100 L 101-111 mmol/L Carbon Dioxide Level 29 21-32 mmol/L Blood Urea Nitrogen 25 H 7-18 mg/dL Creatinine 1.6 H 0.5-1.3 mg/dL Glomerular Filtration Rate Calc 54 >90 mL/min Random Glucose 114 H 70-105 mg/dL Total Calcium 8.4 L 8.5-10.1 mg/dL Iron Level 140 # 65-175 mcg/dL Total Iron Binding Capacity 135 L 250-450 mcg/dL Percent Iron Saturation 103.7 H 30-44 % Magnesium Level 1.80 1.80-2.40 mg/dL Whole Blood Glucose 72 70-110 MG/DL DIAGNOSTICS / RADIOLOGY RESULTS: [ ] IMAGING REPORT Signed PATIENT: ADAM MOE III MR#: [id number] : 1980 SEX: M AGE: 44 LOCATION: 2AH ORDER 99 STATUS: ADM IN REPORT#: [id number] SERVICE 9 REASON: s/p MICS AVR ORDERING PHYSICIAN: DESIREE GERARDO MD PROCEDURE: CXR1VW - CHEST 1VW CHEST 1VW HISTORY: Valvular replacement COMPARISON: 03/06/2025 FINDINGS: A frontal projection of the chest was obtained. There are bilateral pulmonary infiltrates suggestive of pulmonary vascular congestion with possible superimposed pneumonitis. Poststernotomy changes are seen. The heart is enlarged. Degenerative changes of the thoracolumbar spine are present. No evidence of aortic calcification is seen. IMPRESSION: 1. Bilateral pulmonary infiltrates are seen suggestive of pulmonary vascular congestion with possible superimposed pneumonitis. DICTATED BY: CAROL HOWARD MD DATE: 03/07/25841 ELECTRONICALLY SIGNED BY: CAROL HOWARD MD DATE: 03/07/25845 PLAN Maintain O2 sats above 92%. Per CV surgeon recommendations remove chest tube today Follow CT surgeon recommendations Follow cardiology recommendations Multimodal pain management Monitoring H&H Incentive spirometry q 1 hr Glycemic control with goal of 80-180 monitor electrolytes: K Goal of 4 Magnesium goal of 2 Replace accordingly NEURO: Minimize central acting medications as possible. Maintain fall precautions, adequate lighting during the day PULMONARY: Supplemental 02 as needed. Maintain aspiration precautions at all times CARDIOVASCULAR: Follow hemodynamics. Vital signs per facility protocol GI & NUTRITION: Continue with nutritional support. Continue stool softeners and laxatives as needed. KIDNEYS & ELECTROLYTES: Strict monitoring of intake, output and overall fluid balance. Avoid nephrotoxic medications to the extent possible. Medications to be dosed according to renal function. Monitor electrolytes and replace as needed ENDOCRINE: Maintain blood glucose between 100-180 at all times. Hypoglycemia protocol in place INFECTIOUS DISEASE: Trend temperature, WBC and procalcitonin level Follow cultures, deescalate antibiotics as soon as possible. Panculture if new onset fever ONCOLOGY/HEMATOLOGY/COAGULATION: Monitor for s/s of bleeding Monitor hemoglobin, coagulation studies as needed SKIN: Pressure ulcer prevention per facility protocol Specialty mattress ORTHO/REHAB: Continue PT/OT Prophylaxis: Continue GI and DVT prophylaxis Code Status: Full Resuscitation Disposition: Per primary team Other: Case discussed with supervising physician plan of care agreed upon Time spent on care including review of chart, discussion of plan with patient and discussion with nursing staff exceeds 45 minutes. This does not include any billable procedures performed. 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 Moy Zamarripa MD, [facility] Mar 07, 2025 08:00
--- NOTE | 2025-03-07 08:10 | PN ---
SUBJECTIVE: The patient is postop day #5 from minimally invasive aortic valve replacement for endocarditis. The patient has been doing well. He was transferred out of the ICU yesterday. He offers no complaints. OBJECTIVE: HEENT: Reveals normocephalic, atraumatic. Extraocular movements are intact. HEART: S1, S2 with a snap per second heart sound. Right thoracotomy wound is bandaged. CHEST: Tubes and temporary pacing wires are in place. He put out 120 mL of serosanguineous drainage over the last 24 hours. He has a left upper extremity PICC line. ABDOMEN: Soft and nontender. EXTREMITIES: Perfusion appears adequate. LABORATORY DATA: His creatinine is 1.6, platelets are up to 113,000. ASSESSMENT AND PLAN: 1. Status post minimally invasive aortic valve replacement. We will discontinue his chest tubes and temporary pacing wires. Continue ambulation in the hallways and cardiac rehabilitation. 2. Infectious endocarditis. The patient will need 6 weeks of IV antibiotics via his PICC line. Continue Zyvox and doxycycline. 3. Thrombocytopenia (resolving). Continue Arixtra as directed by Hematology. 4. Acute kidney injury secondary to cardiac surgery. Continue to monitor electrolytes. TID: [id number] RECEIPT: [id number]
--- NOTE | 2025-03-07 08:46 | HMCIMG ---
CHEST 1VW HISTORY: Valvular replacement COMPARISON: 03/06/2025 FINDINGS: A frontal projection of the chest was obtained. There are bilateral pulmonary infiltrates suggestive of pulmonary vascular congestion with possible superimposed pneumonitis. Poststernotomy changes are seen. The heart is enlarged. Degenerative changes of the thoracolumbar spine are present. No evidence of aortic calcification is seen. IMPRESSION: 1. Bilateral pulmonary infiltrates are seen suggestive of pulmonary vascular congestion with possible superimposed pneumonitis.
--- NOTE | 2025-03-07 09:09 | PN ---
[facility] CARDIOLOGY PROGRESS NOTE Date Patient Seen: Mar 07, 2025 Time of Visit: 09:08 Interval History: [s/p AVR 03/02 Physical Examination: GENERAL: [No acute distress.] HEAD: [Normal with no signs of head trauma.] EYES: [PERRLA, EOMI, conjunctiva and sclera normal.] ENT: [Hearing grossly intact, normal oropharynx.] NECK: [Supple without JVD. There is no tenderness, lymphadenopathy, or masses. No thyromegaly. Normal carotid upstrokes without bruits.] LUNGS: [Clear breath sounds bilaterally. There are right basilar rales one third of the way up the chest. No wheezes, or rhonchi.] HEART: [Normal rate and rhythm. ] VASC: [Peripheral pulses +2 bilaterally.] ABD: [Bowel sounds normal, soft, nontender, no masses, no organomegaly. No audible bruits.] NEURO: [Awake, alert, and oriented x3. No focal sensory or strength deficits noted.] Laboratory: [ ] Hematology Labs: Test 03/07/25 03:50 Range/Units White Blood Count 9.1 4.8-10.8 K/uL Red Blood Count 2.93 L 4.50-6.20 MIL/uL Hemoglobin 8.6 L 14.0-18.0 g/dL Hematocrit 25.7 L 42-54 % Mean Corpuscular Volume 87.7 79-99 fL Mean Corpuscular Hemoglobin 29.4 27.0-33.0 pg Mean Corpuscular Hemoglobin Concent 33.5 32.0-36.0 g/dL Red Cell Distribution Width 14.8 11.0-15.5 % Platelet Count 113 #L 130-400 K/uL Mean Platelet Volume 11.7 H 7.5-10.5 fL Immature Granulocyte % (Auto) 0.3 0-1 % Neutrophils (%) (Auto) 66.3 40.0-77.0 % Lymphocytes (%) (Auto) 20.7 L 21.0-51.0 % Monocytes (%) (Auto) 8.0 3.0-13.0 % Eosinophils (%) (Auto) 4.1 0.0-8.0 % Basophils (%) (Auto) 0.6 0.0-5.0 % Neutrophils # (Auto) 6.0 1.8-7.7 K/uL Lymphocytes # (Auto) 1.9 1.0-4.8 K/uL Monocytes # (Auto) 0.7 0.1-1.0 K/uL Eosinophils # (Auto) 0.37 0.00-0.70 K/uL Basophils # (Auto) 0.05 0.00-0.20 K/uL Absolute Immature Granulocyte (auto 0.03 0-1 K/uL Nucleated Red Blood Cells 0.0 0.0-0.19 % Chemistry Labs: Test 03/07/25 03:50 03/06/25 13:39 03/05/25 16:05 Range/Units Sodium Level 135 L 136-145 mmol/L Potassium Level 3.5 3.5-5.1 mmol/L Chloride Level 100 L 101-111 mmol/L Carbon Dioxide Level 29 21-32 mmol/L Blood Urea Nitrogen 25 H 7-18 mg/dL Creatinine 1.6 H 0.5-1.3 mg/dL Glomerular Filtration Rate Calc 54 >90 mL/min Random Glucose 114 H 70-105 mg/dL Total Calcium 8.4 L 8.5-10.1 mg/dL Magnesium Level 1.60 L 1.80-2.40 mg/dL Iron Level 140 # 65-175 mcg/dL Total Iron Binding Capacity 135 L 250-450 mcg/dL Percent Iron Saturation 103.7 H 30-44 % Whole Blood Glucose 72 70-110 MG/DL Diagnostics / Radiology: [Copy/Paste Echos/Imaging Report here] Impression and Plan: [-severe AI, secondary to endocarditis -2D echo on 02/24, EF 60-65%, demonstrating with severe AI, 1.4 cm aortic leaflet vegetation -Acute on chronic diastolic heart failure -PNA -UTI -Normocytic anemia -Acute on chronic CKD stage IIIb, baseline creatinine of 2 -Fidelina esophagitis identified on EGD done 01/11/2025 -Bacterial endocarditis affecting the aortic valve (1.81x1.17 cm mass attached t o the noncoronary cusp leaflet) identified on DRAKE done 01/11/2025 -Lactic acidosis, improving -Left atrial appendage thrombus identified on DRAKE done 01/11/2025, not currently an anticoagulation due to thrombocytopenia -Normal LV systolic function (LVEF: 60-65% by echo done 01/11/2025) -Elevated troponin (type II RI), peaking in the 400s -History of ITP in 12/2024 -Liver cirrhosis -Esophagitis by EGD 01/11/2025 -CAD s/p PCI with IA Integrilin, aspiration thrombectomy, PTCA, and KISHORE placement (Promus 4.0x16 mm) in the proximal LAD done on 12/19/2015 -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 Troponins have been elevated in the 200-400 range. Normal [facility] Chest tubes to be out today s/p AVR 03/02 Thank you for this consult cardiology will continue to follow along] EVANS FLORES MD Mar 07, 2025 09:09
--- NOTE | 2025-03-07 11:45 | PN ---
[facility] PROGRESS NOTE Date of Service: Mar 07, 2025 Time of Service: 11:37 SUBJECTIVE: [ HPI : 54-year-old male with a complex medical history including recent hospitalization with a Gram-positive bacteremia secondary to Staph aureus, severe sepsis and endocarditis with echogenic vegetations on noncoronary cusps and right coronary cusp as well as left atrial appendage clot on January 11, 2025 presented to the ED days history of worsening shortness of breath. He was discharged on January 31, 2025 with long-term IV linezolid via PICC line for infective endocarditis. Since 3 days he reports progressive dyspnea, worsened acutely today. He denies chest pain but notes fatigue and exertional intolerance. There is no reported fever or chills. He was in mild respiratory distress on arrival. Notably has a past medical history of Fidelina esophagitis, uncontrolled diabetes mellitus type 2 BRENDAN, immune thrombocytopenic purpura, UTI Klebsiella and substance abuse with cocaine alcohol and tobacco. So on physical examination he is positive for shortness of breaths and cough no hemoptysis. His lungs have expiratory wheezes and diffuse crackling bilaterally. He is tachycardic with regular rhythm. His WBC count is at 18, hemoglobin at 10.5 and platelet count at 470 K with leukocytosis chronic anemia and thrombocytosis, chemistry is with creatinine showing 2.2, BUN at and CO2 at 18.2 magnesium low consistent with BRENDAN, electrolyte derangements. His arterial blood gas analysis reveals a pH of 7.469, PaCO2 of 26, PO2 of 54.6, HC03 of 18.2 and saturation of 90.2 Representing acute hypoxic respiratory failure with respiratory alkalosis. Serum lactate is elevated at 3.6 persistent lactic acidosis. BNP is at 2410 suggesting cardiac strain or volume overload. And troponin is elevated at [address] segment elevated UT. and urine analysis positive concerning for UTI and nephropathy due to positive hyaline casts. Chest x-ray reveals diffuse bilateral opacities consistent with pneumonia and chest CT scan reveals bilateral pleural effusion bilateral ground-glass pulmonary infiltrates are seen renal ultrasound reveals no hydronephrosis. And a CT scan also revealed gallstone. Echo is ordered to assess vegetations, LA clot and EF. Lower extremity Doppler revealed no DVT, Matthews's cyst versus hematoma in the left knee. EGD from prior history Fidelina esophagitis. The patient is admitted to ICU with the critical Care and Cardiology and Infectious Disease consult has been placed for further management currently on Precedex drip and CPAP setting with tidal volume of 657 and a rate of 36 and PIP of15 and ve of 23.2. Furosemide 40 q.12h is added in addition to his antibiotics monitoring the patient closely and discuss the goal of care with the patient and he agreed upon with it. 02/25/2025. Patient seen and examined along with RN. Feels better , breathing has improved. Continues to be on IV Lasix and metolazone was added. Cardiology and critical Care on board CT surgery was consulted for severe aortic regurgitation.] 02/26/25 review moss picker's note in detail. CT surgery was consulted regarding to his severe AI. Patient continues with diuretics in IV antibiotics. No fevers denies chest pain. 02/27/25 44-year-old male with a complex medical history including infective endocard itis, severe aortic insufficiency, CHF, BRENDAN, diabetic nephropathy, bilateral pneumonia, and recent gram-negative sepsis, is clinically improving. The patient reports that shortness of breath has been improving slowly over the past 48 hours. He currently denies chest pain, fever, or chills. He is tolerating medications and oral intake well. He remains on low-flow oxygen at 1L via nasal cannula, saturating well at 98%, ambulating to the chair with mild fatigue but no acute respiratory distress. No complaints of palpitations or dizziness. He is aware of the upcoming left heart catheterization and understands the indication for aortic valve replacement surgery. No family was present during bedside examination WBC: 11.7 (? from 13.2) improving leukocytosis February 28 2025 44-year-old male with severe [place] aortic valve insufficiency, bacterial endocarditis, and worsening pulmonary congestion, was upgraded to PCCU today due to clinical and radiographic deterioration. He remains dyspneic and hypoxic despite low-flow oxygen support. He reports difficulty breathing, especially in the supine position, and has been unable to tolerate lying flat due to severe orthopnea. He feels increasingly fatigued, lightheaded, and weak. Denies chest pain, fevers, chills, or palpitations. He is aware of his pending left heart catheterization and the need for aortic valve replacement surgery and verbalizes continued understanding and consent March 01 2025 The patient was examined at bedside this morning. He remains alert and oriented, and in no acute distress while sitting up. He reports increased shortness of breath when lying back or attempting to sleep supine, consistent with severe orthopnea, though otherwise states that he is feeling okay. He is NPO for the planned left heart catheterization scheduled for today as part of the workup for severe [place] aortic insufficiency with large vegetation and worsening decompensated heart failure. He has no new complaints of chest pain, fever, chills, nausea, or dizziness. He verbalizes understanding of the planned cardiac intervention and its associated risks, including contrast use, bleeding, arrhythmia, and need for surgical valve replacement afterward. March 02 2025 The patient was evaluated at bedside this morning. He was found sitting upright, hemodynamically stable, alert, and oriented. He reports no acute complaints at this time, denies chest pain, palpitations, nausea, or dizziness. He remains on 2L O? via nasal cannula, comfortable at rest, and is awaiting surgical intervention today for severe aortic valve regurgitation. The patient underwent left and right heart catheterization yesterday which revea led normal coronary anatomy with mild non-obstructive CAD. Cardiology has cleared the patient for surgical aortic valve repair. He has been informed of the risks and benefits of the procedure and has provided informed consent. His oxygen saturation and hemodynamics remain stable. He denies orthopnea today. 03/03/25 The patient was examined at bedside this morning, currently Post-Operative Day 1 following successful aortic valve replacement for [place] valve endocarditis. He is sitting upright in bed, alert and oriented, and reports that he is doing okay overall. He denies shortness of breath or chest discomfort but reports moderate incisional pain, well controlled with PRN Tylenol and tramadol. He reports mild fatigue but no nausea, dizziness, palpitations, or changes in vision. He is tolerating clear liquids. He has been out of bed to chair. No major overnight events noted. 03/04/25 Patient is evaluated at bedside this morning on postoperative day2 following bioprosthetic AV valve replacement for [place] valve infective endocarditis with severe regurgitation. He appears clinically improved. He denies chest pain, shortness of breath, dizziness, nausea, vomiting or other acute complaints. He reports mild fatigue and incisional pain, which is well controlled with acetaminophen p.r.n.. He is now breathing comfortably on room air, requiring no supplemental O2 and weaned off all vasopressors and inotropes. Appetite has improved. No complaints of orthopnea or PND. He continues to void adequately, although noted to have some postop anemia and mild thrombocytopenia. He is aware of ongoing recovery and upcoming transfusion today for symptomatic anemia. He has pain sitting up in the recliner. 03/05/25 patient seen and examined. Care discussed with the. Cardiology consulted Hematology for anticoagulation management He presented with severe symptomatic aortic valve insufficiency in the setting of bacterial endocarditis. He is status post bioprosthetic aortic valve replacement 03/02/2025. Continue aspirin 81 mg once daily. 03/06/25 Patient was examined at bedside this morning. He is currently off supplemental O2, breathing comfortably on room air with SpO2 of 98%, and hemodynamically stable. He is sitting upright in a recliner, awake, alert, oriented and reports feeling better overall. He denies chest pain, shortness of breath at rest, or dizziness. He notes mild bilateral leg swelling, but denies any pain, erythema or tenderness. He is ambulating with assistance, tolerating oral intake, and urinating spontaneously. His central line was removed and PICC line remains in place. Chest tube remains with a with decreased output today of 160 mL. He has not required vasopressors or inotropes, and respiratory parameters are stable. He is he understands that he has been downgraded from ICU to PCCU as a part of recovery plan. Awaiting Hematology recommendations for anti coagulation. 03/07/25 Patient was examined at bedside this morning and reports he is feeling much better overall. His hemodynamically stable, breathing on room air, and ambulating with assistance through cardiac rehabilitation. He denies chest pain, palpitations, shortness of breath, nausea, vomiting, dizziness or syncope. His chest tube drainage decreased to 120 mL and both chest tubes and temporary pacing wires are scheduled to be removed today. He requires 6 weeks of IV antibiotic therapy via PICC line. And currently on linezolid doxycycline and Zosyn. The patient's acute kidney injury is improving from creatinine improved to 1.6 down from 2.1 yesterday. He is tolerating his current antihypertensive regimen. His thrombocytopenia has resolved with platelet counts improving to 133 K, and he is now on fondaparinux 2.5 mg as Q daily per hematology guidance for anticoagulation, avoid heparin products. REVIEW OF SYSTEMS CONSTITUTIONAL: Positive for fatigue, mild subjective fever. NEUROLOGICAL: Denies headache, amaurosis fugax, motor weakness, sensory deficit, vertigo/spinning sensation, gait abnormalities, or tremors. ENT: No hearing loss, otalgia, otorrhea, rhinitis, rhinorrhea, hoarseness, or sore throat. CARDIOVASCULAR: Palpitations, no angina. PULMONARY: Shortness of breath, cough, no hemoptysis. SLEEP: Denies morning headaches, daytime somnolence or napping. Denies difficulty falling asleep, staying asleep, waking from sleep. Denies knowledge of snoring. GASTROINTESTINAL: Denies any type of dysphagia to either liquids or solids. Denies nausea, vomiting, pyrosis, early satiety, abdominal pain, diarrhea, constipation, or changes in stool consistency or caliber. Denies coffee-ground emesis, hematemesis, hematochezia, or melanotic stools. GENITOURINARY: Denies frequency, urgency, nocturia, hematuria or incontinence (Storage/Irritative symptoms.) Low urinary stream, straining to void, urinary intermittency or hesitancy, splitting of the voiding stream, terminal dribbling. ENDOCRINOLOGIC: Denies polyuria, polydipsia, polyphagia or heat/cold intolerances. HEMATOLOGIC: Denies thrombophilia/previous clots, or coagulopathy/bleeding disorders. ONCOLOGIC: Denies personal history of malignancy. DERMATOLOGIC: Denies rashes or pruritus. PSYCHIATRIC: Denies any suicidal or homicidal ideation. Denies hallucinations. PHYSICAL EXAM GENERAL APPEARANCE ill appearing, alert, mildly agitated, in moderate respiratory distress. NEUROLOGICAL: Cranial nerves II-XII grossly intact. Motor is 5/5 in bilateral upper and lower extremities proximal to distal. No sensory deficits. HEENT: Face is symmetric. Pupils are equal and reactive. Extraocular movements are intact. NECK: Supple. No JVD. No thyromegaly. No submental, submandibular, pre- /postauricular, occipital or supraclavicular lymphadenopathy. CHEST: Normal chest expansion. No Telemetry. LUNGS: Expiratory wheeze and diffuse crackles bilaterally CARDIOVASCULAR: Regular. S1 and S2 normal. No appreciable rubs, murmurs or gallops. Tachycardia present ABDOMEN: Soft, nontender, and nondistended. There is no rebound, voluntary guarding, or rigidity. : Deferred. No Ortega. EXTREMITIES: Bilateral 2+ pitting edema, left knee warm swollen, limited ROM and pitting edema more on the left compared to right. SKIN: No skin breakdown. Vital Signs (last 8hr) Date Time Temp Pulse Resp B/P (MAP) Pulse Ox O2 Delivery O2 Flow Rate FiO2 03/07/25 07:50 97 Room Air* 0 N/A Aerosol Mask+ 03/07/25 07:05 77 19 03/07/25 07:04 77 19 N/A Room Air 21 03/07/25 07:00 97.5 77 17 119/80 100 Room Air LABS: Laboratory: Test 03/07/25 03:50 03/06/25 13:39 03/05/25 16:05 Range/Units White Blood Count 9.1 4.8-10.8 K/uL Red Blood Count 2.93 L 4.50-6.20 MIL/uL Hemoglobin 8.6 L 14.0-18.0 g/dL Hematocrit 25.7 L 42-54 % Mean Corpuscular Volume 87.7 79-99 fL Mean Corpuscular Hemoglobin 29.4 27.0-33.0 pg Mean Corpuscular Hemoglobin Concent 33.5 32.0-36.0 g/dL Red Cell Distribution Width 14.8 11.0-15.5 % Platelet Count 113 #L 130-400 K/uL Mean Platelet Volume 11.7 H 7.5-10.5 fL Immature Granulocyte % (Auto) 0.3 0-1 % Neutrophils (%) (Auto) 66.3 40.0-77.0 % Lymphocytes (%) (Auto) 20.7 L 21.0-51.0 % Monocytes (%) (Auto) 8.0 3.0-13.0 % Eosinophils (%) (Auto) 4.1 0.0-8.0 % Basophils (%) (Auto) 0.6 0.0-5.0 % Neutrophils # (Auto) 6.0 1.8-7.7 K/uL Lymphocytes # (Auto) 1.9 1.0-4.8 K/uL Monocytes # (Auto) 0.7 0.1-1.0 K/uL Eosinophils # (Auto) 0.37 0.00-0.70 K/uL Basophils # (Auto) 0.05 0.00-0.20 K/uL Absolute Immature Granulocyte (auto 0.03 0-1 K/uL Nucleated Red Blood Cells 0.0 0.0-0.19 % Sodium Level 135 L 136-145 mmol/L Potassium Level 3.5 3.5-5.1 mmol/L Chloride Level 100 L 101-111 mmol/L Carbon Dioxide Level 29 21-32 mmol/L Blood Urea Nitrogen 25 H 7-18 mg/dL Creatinine 1.6 H 0.5-1.3 mg/dL Glomerular Filtration Rate Calc 54 >90 mL/min Random Glucose 114 H 70-105 mg/dL Total Calcium 8.4 L 8.5-10.1 mg/dL Magnesium Level 1.60 L 1.80-2.40 mg/dL Iron Level 140 # 65-175 mcg/dL Total Iron Binding Capacity 135 L 250-450 mcg/dL Percent Iron Saturation 103.7 H 30-44 % Whole Blood Glucose 72 70-110 MG/DL Current Medications Medications (Trade) Dose Ordered Sig/Asya Route PRN Reason Start Time Stop Time Status Last Admin Dose Admin Acetaminophen (TYLenol 325MG TAB) 650 mg Q4H PRN PO Temp >38.3C(AFTER EXTUBATION) 03/02/25 15:00 04/01/25 14:59 Acetaminophen (TYLenol 325MG TAB) 650 mg Q6H PRN PO MILD PAIN (1-3) 03/03/25 09:00 04/02/25 08:59 03/05/25 00:35 650 MG Acetaminophen (TYLenol 650MG SUPPOSITORY) 650 mg Q4H PRN RC Temp >38.3C WHILE INTUBATED 03/02/25 15:00 04/01/25 14:59 Acetaminophen (acetaMINOPHEN) 1,000 mg Q6H IVPB 03/03/25 04:00 03/03/25 08:44 DC 03/03/25 04:17 1,000 MG Acetaminophen (acetaMINOPHEN) 1,000 mg Q6H6 IV 03/03/25 09:00 03/04/25 08:59 DC 03/04/25 06:32 1,000 MG Acetaminophen (acetaMINOPHEN) 1,000 mg Q6H6 IVPB 03/03/25 03:30 03/03/25 04:00 DC Acetaminophen/ Codeine Phosphate (TYLenol-coDEINE (120/12MG 5ML) ELIXIR) 10 ml Q4H PRN PO MODERATE PAIN (4-6) 02/25/25 15:30 02/25/25 15:16 DC Acetaminophen/ Hydrocodone Bitart (NORco 5/325MG) 1 tab Q6H PRN PO MODERATE PAIN (4-6) 02/23/25 23:00 02/28/25 22:59 DC 02/28/25 08:27 1 TAB Acetaminophen/ Hydrocodone Bitart (NORco 5/325MG) 1 tab Q6H PRN PO MODERATE PAIN (4-6) 03/01/25 00:30 03/02/25 14:57 DC 03/01/25 23:53 1 TAB Albumin Human 250 ml @ 0 mls/hr AD PRN IV IF HEMODYNAMICALLY UNSTABLE 03/02/25 15:00 Albumin Human 500 ml @ 0 mls/hr AD IV 03/03/25 01:30 03/03/25 08:52 DC 03/03/25 01:31 250 MLS/HR Albuterol (DUOneb) 1 UDVIAL [id number] IH 02/24/25 00:00 02/24/25 14:15 DC 02/24/25 07:08 1 UDVIAL Alteplase, Recombinant (CathFLO 2MG VIAL) 4 mg ONCE IVCATH 02/25/25 09:30 02/25/25 11:00 DC 02/25/25 10:44 4 MG Aminocaproic Acid 79234 mg/Sodium Chloride 310 ml @ 25 mls/hr AD IV 03/02/25 15:00 03/02/25 15:15 DC Aminocaproic Acid 63597 mg/Sodium Chloride 480 ml @ 0 mls/hr AD PRN IV BLEEDING CONTROL 03/02/25 08:30 04/01/25 08:29 Amlodipine Besylate (NorvASC 5MG TAB) 10 mg DAILY PO 03/06/25 09:00 04/05/25 08:59 03/07/25 08:49 10 MG Aspirin (Aspirin 81mg Ec Tab) 81 mg DAILY PO 02/25/25 09:00 03/27/25 08:59 03/07/25 08:49 81 MG Budesonide (Pulmicort 0.5 Mg/2ml) 0.5 mg BIDRESP IH 02/24/25 18:00 03/26/25 17:59 03/07/25 07:04 0.5 MG Bumetanide 40 ml @ 0 mls/hr AD IV 02/28/25 09:30 4/3/25 14:57 DC 03/02/25 06:01 1 MLS/HR Calcium Gluconate 1 gm/Sodium Chloride 60 ml @ 0 mls/hr AD PRN IV HYPOCALCEMIA 03/02/25 15:00 04/01/25 14:59 03/03/25 02:29 100 MLS/HR Cefazolin Sodium (Ancef) 2 gm ONCALL IVP 03/01/25 23:00 03/02/25 15:20 DC Cefazolin Sodium (Ancef) 2 gm Q8H IVPB 03/02/25 20:00 03/03/25 12:01 DC 03/03/25 14:04 2 GM Desmopressin Acetate 40 mcg/ Sodium Chloride 50 ml @ 100 mls/hr AD STAT IJ 03/02/25 17:44 03/02/25 18:13 DC Dexmedetomidine/ Sodium Chloride (PRECEdex 400MCG/ 100ML-NS) 400 mcg PROTOCOL IV 02/24/25 10:30 03/02/25 14:57 DC Dextrose (D50w) 50 ml AD PRN IV HYPOGLYCEMIA PROTOCOL 03/01/25 13:00 03/02/25 15:25 DC Dextrose (D50w) 50 ml AD PRN IV HYPOGLYCEMIA PROTOCOL 03/02/25 15:00 04/01/25 14:59 Docusate Sodium (COLace 100MG CAP) 100 mg BID PO 03/03/25 09:00 04/02/25 08:59 03/07/25 08:49 100 MG Doxycycline Hyclate (Doxycycline Hyclate) 100 mg BID PO 02/24/25 21:00 03/06/25 20:59 DC 03/06/25 07:59 100 MG Enoxaparin Sodium (Lovenox) 30 mg DAILY SQ 03/05/25 09:00 03/05/25 19:17 DC Epinephrine HCl 10 mg/Sodium Chloride 250 ml @ 0 mls/hr AD PRN IV TITRATE 03/02/25 08:30 04/01/25 08:29 Epinephrine HCl 10 mg/Sodium Chloride 250 ml @ 0 mls/hr AD PRN IV POST-OP CARDIOVASCULAR ORDERS 03/02/25 15:00 03/02/25 15:16 DC Famotidine (Pepcid 20mg Vial) 20 mg DAILY IV 03/03/25 09:00 03/06/25 07:40 DC 03/05/25 08:40 20 MG Folic Acid (FOLic ACID 1 MG TABLET) 1 mg DAILY PO 02/25/25 09:00 02/26/25 07:40 DC 02/25/25 09:07 1 MG Folic Acid (FOLic ACID 1 MG TABLET) 1 mg DAILY PO 02/25/25 09:00 03/27/25 08:59 03/07/25 08:49 1 MG Fondaparinux (Arixtra) 2.5 mg DAILY SQ 03/06/25 09:00 03/06/25 09:05 DC Fondaparinux (Arixtra) 2.5 mg DAILY SQ 03/07/25 09:00 04/06/25 08:59 Furosemide (LASix 20MG TAB) 20 mg BID@09,17 PO 03/04/25 09:00 03/06/25 08:42 DC 03/06/25 07:59 20 MG Furosemide (LASix 20MG TAB) 20 mg Q12H PO 03/04/25 09:00 03/03/25 08:54 DC Furosemide (LASix 20MG VIAL) 20 mg Q12H IV 03/03/25 09:00 03/03/25 08:54 DC Furosemide (LASix 20MG VIAL) 20 mg Q12H IV 03/03/25 09:00 03/04/25 08:59 DC 03/03/25 20:10 20 MG Furosemide (LASix 40MG VIAL) 30 mg Q12H IV 03/06/25 09:00 03/07/25 21:01 03/07/25 08:50 30 MG Furosemide (LASix 40MG VIAL) 40 mg Q12H IV 02/24/25 08:30 02/24/25 10:20 DC 02/24/25 09:34 40 MG Furosemide (LASix 40MG VIAL) 40 mg Q8H IV 02/24/25 16:30 02/28/25 09:13 DC 02/28/25 08:26 40 MG Glucagon (Glucagon 1mg Kit) 1 mg AD PRN IM HYPOGLYCEMIA PROTOCOL 03/01/25 13:00 03/02/25 15:38 DC Glucagon (Glucagon 1mg Kit) 1 mg AD PRN IM HYPOGLYCEMIA PROTOCOL 03/02/25 15:00 04/01/25 14:59 Heparin Sodium (Porcine) (HEParin 5,000 UNIT VIAL) 5,000 unit BID SQ 02/24/25 09:00 03/02/25 14:57 DC 03/01/25 20:22 5,000 UNIT Hydralazine HCl (APRESOLine 20MG INJ) 10 mg Q6H PRN IV ADMINISTER FOR SBP > 160 03/06/25 09:00 04/05/25 08:59 Insulin Human Regular 100 unit/ Sodium Chloride 100 ml @ 0 mls/hr AD IV 03/02/25 15:00 03/04/25 14:59 DC 03/02/25 19:17 4 MLS/HR Ipratropium [place] (AtrovENT UD) 0.5 MG [id number] IH 02/24/25 14:00 03/26/25 13:59 03/07/25 07:04 0.5 MG Lactulose (Constulose 20gm/ 30ml Udcup) 20 gm BID PRN PO CONSTIPATION 03/03/25 09:00 04/02/25 08:59 Linezolid 300 ml @ 150 mls/hr Q12H IV 02/24/25 11:00 03/06/25 10:59 DC 03/05/25 22:13 150 MLS/HR Linezolid 300 ml @ 150 mls/hr Q12H IV 03/06/25 12:30 03/16/25 12:29 03/07/25 00:40 150 MLS/HR Magnesium Hydroxide (Milk Of Magnesium 30ml) 30 ml DAILY PRN PO CONSTIPATION 03/03/25 09:00 04/02/25 08:59 Magnesium Sulfate 50 ml @ 12.5 mls/hr AD PRN IV MAG LEVEL LESS THAN 2.0 03/02/25 15:00 04/01/25 14:59 03/07/25 08:50 12.5 MLS/HR Magnesium Sulfate 50 ml @ 0 mls/hr PROTOCOL PRN IV low magnesium 02/25/25 11:00 03/02/25 14:57 DC 02/25/25 11:27 25 MLS/HR Melatonin (Melatonin) 10 mg HS PRN PO INSOMNIA 02/24/25 11:00 03/02/25 14:57 DC 03/01/25 23:53 10 MG Metolazone (zarOXOlyn) 5 mg DAILY PO 02/25/25 09:00 03/02/25 14:57 DC 03/01/25 14:49 5 MG Metoprolol Tartrate (loprESSOR) 12.5 mg BID PO 03/04/25 09:00 03/05/25 12:08 DC 03/05/25 08:41 12.5 MG Metoprolol Tartrate (loprESSOR) 25 mg BID PO 03/05/25 21:00 04/04/25 20:59 03/07/25 08:49 25 MG Montelukast Sodium (SinguLAIR) 10 mg DAILY PO 02/25/25 09:00 03/27/25 08:59 03/07/25 08:49 10 MG Morphine Sulfate (morPHINE 2MG SYG) 0.5 mg Q2H PRN IV MODERATE PAIN (4-6) 03/02/25 15:00 03/03/25 14:59 DC Morphine Sulfate (morPHINE 2MG SYG) 1 mg Q2H PRN IV SEVERE PAIN (7-10) 03/02/25 15:00 03/03/25 14:59 DC Nitroglycerin/ Dextrose 0 ml @ 0 mls/hr AD IV 03/02/25 15:00 03/05/25 14:59 DC Norepinephrine Bitartrate 250 ml @ 0 mls/hr AD PRN IV TITRATE 03/02/25 08:30 04/01/25 08:29 Norepinephrine Bitartrate 8 mg/ Dextrose 250 ml @ 0 mls/hr AD PRN IV POST-OP CARDIOVASCULAR ORDERS 03/02/25 15:00 03/02/25 15:16 DC Nystatin (NYSTatin 451383 UNIT/ML 5ML UDCUP) 5 ml QID PO 02/24/25 17:00 03/26/25 16:59 03/07/25 08:49 5 ML Ondansetron HCl (zoFRAN 4MG INJ) 4 mg Q6H PRN IV NAUSEA/VOMITING 03/02/25 15:00 04/01/25 14:59 03/05/25 21:06 4 MG Ondansetron HCl (zoFRAN 4MG INJ) 4 mg Q6H PRN IVP NAUSEA/VOMITING 02/24/25 21:00 03/02/25 14:57 DC 03/02/25 12:05 4 MG Pantoprazole Sodium (PROTonix 40MG INJ) 40 mg DAILY IVP 02/24/25 11:00 4/3/25 14:57 DC 03/02/25 11:54 40 MG Pharmacy Profile Note (Lace Assessment) 1 each AD MISC 02/24/25 10:30 02/24/25 10:32 DC Pharmacy Profile Note (Lace Assessment) 1 each AD MISC 02/25/25 15:30 02/25/25 15:17 DC Pharmacy Profile Note (Pharmacy Communication) 1 each ONCE MISC 02/23/25 23:00 02/23/25 23:48 DC Pharmacy Profile Note (Pharmacy Communication) 1 each ONCE MISC 02/25/25 15:30 02/25/25 15:17 DC Pharmacy Profile Note (Pharmacy Communication) 1 each ONCE MISC 03/06/25 12:30 03/06/25 12:17 DC Piperacillin Sod/ Tazobactam Sod (Zosyn 3.375gm+NS 50ml) 3.375 gm Q8H IV 02/24/25 05:00 03/06/25 04:59 DC 03/05/25 21:05 3.375 GM Piperacillin Sod/ Tazobactam Sod (Zosyn 3.375gm+NS 50ml) 3.375 gm Q8H IVPB 03/06/25 12:30 03/20/25 12:29 03/07/25 05:25 3.375 GM Potassium Phosphate 250 ml @ 42 mls/hr AD PRN IV LOW PHOS LEVEL 03/02/25 15:00 04/01/25 14:59 03/03/25 09:48 42 MLS/HR Potassium Chloride 100 ml @ 100 mls/hr AD PRN IV POTASSIUM PROTOCOL 02/25/25 11:00 02/27/25 10:47 DC 02/27/25 08:24 100 MLS/HR Potassium Chloride 100 ml @ 100 mls/hr AD PRN IV POTASSIUM PROTOCOL 02/25/25 11:00 03/02/25 14:57 DC 03/02/25 11:54 100 MLS/HR Potassium Chloride 100 ml @ 100 mls/hr AD PRN IV HYPOKALEMIA 03/02/25 15:00 04/01/25 14:59 03/06/25 05:21 100 MLS/HR Potassium Chloride (K-Dur 10meq Sr Tab) 10 meq AD PRN PO POTASSIUM PROTOCOL 02/27/25 11:00 03/02/25 14:57 DC 03/01/25 05:39 10 MEQ Potassium Chloride (K-Dur/Klor-Con 20meq) 10 meq AD PRN PO POTASSIUM PROTOCOL 02/25/25 11:00 02/27/25 10:48 DC Potassium Chloride (K-Dur/Klor-Con 20meq) 20 meq AD PRN PO POTASSIUM PROTOCOL 03/06/25 09:00 04/05/25 08:59 03/07/25 08:49 20 MEQ Potassium Chloride (K-Dur/Klor-Con 20meq) 20 meq DAILY PO 03/01/25 09:00 03/02/25 14:57 DC 03/01/25 14:50 20 MEQ Potassium Chloride (KCl 10% Elixir 20meq/15ml) 10 meq AD PRN PO POTASSIUM PROTOCOL 02/25/25 11:00 03/02/25 14:57 DC Propofol 100 ml @ 0 mls/hr AD PRN IV SEDATION 03/02/25 15:00 03/06/25 14:59 DC Sodium Bicarbonate (Sodium Bicarb 50meq 50ml Vial) 50 meq AD PRN IV OTHER[SEE DOSING INSTRUCTIONS] 03/02/25 15:00 03/05/25 14:59 DC 03/02/25 22:09 50 MEQ Sodium Chloride 500 ml @ 0 mls/hr AD IV 03/02/25 15:00 04/01/25 14:59 03/03/25 01:32 500 MLS/HR Sodium Chloride 500 ml @ 0 mls/hr Q0M IV 03/03/25 01:30 03/03/25 08:52 DC Sodium Chloride 1,000 ml @ 0 mls/hr Q0M IV 03/02/25 13:00 04/01/25 12:59 Sodium Chloride 1,000 ml @ 10 mls/hr ONCE IV 03/02/25 15:00 03/03/25 14:59 DC 03/02/25 15:00 10 MLS/HR Sodium Chloride 1,000 ml @ 75 mls/hr [id number] IV 02/23/25 20:00 02/23/25 23:03 DC 02/23/25 20:08 75 MLS/HR Sodium Chloride 1,000 ml @ 150 mls/hr Q6H40M IV 03/01/25 13:00 03/01/25 15:37 DC 03/01/25 14:50 150 MLS/HR Sodium Chloride (NS Flush 10ml) 10 ml Q8H PRN IVP IV LINE FLUSH 03/02/25 15:00 04/01/25 14:59 Thiamine HCl (Vitamin B-1) 100 mg DAILY PO 02/25/25 09:00 03/27/25 08:59 03/07/25 08:49 100 MG Tramadol HCl (UltRAM) 25 mg Q6H PRN PO MODERATE PAIN (4-6) 03/02/25 15:00 03/02/25 15:33 DC Tramadol HCl (UltRAM) 50 mg Q6H PRN PO SEVERE PAIN (7-10) 03/02/25 15:00 03/02/25 15:39 DC Tramadol HCl (UltRAM) 50 mg Q6H PRN PO MODERATE PAIN (4-6) 03/03/25 03:30 03/08/25 03:29 03/07/25 05:33 50 MG Vancomycin HCl (Vancomycin Protocol) 1 each AD IV 02/23/25 19:00 02/23/25 19:33 DC Vasopressin 40 units/Sodium Chloride 40 ml @ 0 mls/hr PROTOCOL IV 03/03/25 01:30 04/02/25 01:29 DIAGNOSTICS / RADIOLOGY: [ ] PATIENT: ADAM MOE III MR#: [id number] : 1980 SEX: M AGE: 44 LOCATION: 2AH ORDER 2300 STATUS: ADM IN REPORT#: [id number] SERVICE 0400 REASON: s/p MICS AVR ORDERING PHYSICIAN: DESIREE GERARDO MD PROCEDURE: CXR1VW - CHEST 1VW CHEST 1VW HISTORY: Valvular replacement COMPARISON: 03/06/2025 FINDINGS: A frontal projection of the chest was obtained. There are bilateral pulmonary infiltrates suggestive of pulmonary vascular congestion with possible superimposed pneumonitis. Poststernotomy changes are seen. The heart is enlarged. Degenerative changes of the thoracolumbar spine are present. No evidence of aortic calcification is seen. IMPRESSION: 1. Bilateral pulmonary infiltrates are seen suggestive of pulmonary vascular congestion with possible superimposed pneumonitis. DICTATED BY: CAROL HOWARD MD DATE: 03/07/25841 ELECTRONICALLY SIGNED BY: CAROL HOWARD MD DATE: 03/07/25845 ASSESSMENT: gram positive bacteremia POA Sepsis, POA Pneumonia, POA Acute hypoxic respiratory failure on CPAP, ABG confirms PO2 less than 60 mmHg, POA Acute on chronic diastolic heart failure with exacerbation POA Acute kidney injury stage II, POA Non ST segment elevated UT, most likely type 2 UT secondary to oxygen ischemic POA ITP, POA Uncontrolled diabetes mellitus type 2, POA Diabetic nephropathy, POA Cocaine, alcohol and tobacco use disorder, POA Fidelina esophagitis, POA Matthews's cyst, hematoma, left knee, POA Electrolyte abnormalities, POA Chronic anemia, POA Severe aortic valve insufficiency secondary to infective endocarditis, with large non-coronary cusp vegetation (1.4 cm), EF preserved planned for aortic valve replacement [place] valve infective endocarditis, subacute, gram-positive (Micrococcus) and gram-negative (E. coli, Klebsiella) pathogens, on Zosyn, Linezolid, Doxycycline Bilateral multifocal pneumonia with superimposed pulmonary edema, improving clinically, likely secondary to endocarditis and fluid overload Acute on chronic kidney injury, Hypokalemia Volume overload secondary to congestive heart failure and valvular disease, on diuresis Chronic normocytic anemia, New-onset diabetes mellitus type 2, poorly controlled, monitor glucose closely Electrolyte imbalance hyponatremia, hypokalemia, hypomagnesemia, on repletion protocol Proteinuria with diabetic nephropathy PLAN: WBC count is at 9.1 normal hemoglobin and hematocrit are stable at 8.6, 25.7, improving thrombocytopenia with platelet count at 133 K, BUN and creatinine are also improving with25 and 1.6. Urine studies reveals creatinine of 35, sodium of 99, urea of 198 consistent with BRENDAN recovery. Transfused 1 packed RBC today. Mild metabolic alkalosis likely due to diuretics and volume shift. Bioprosthetic valve function awaiting baseline postop echo. Continue metoprolol tartrate 12.5 mg b.i.d., continue [id number] mg p.o. daily Continue amlodipine5 mg daily. To remove his chest tube and temporary pacing wires today. Continue ambulation plus cardiac rehabilitation. Continue furosemide 20 mg IV q.12h for volume management. Hold enoxaparin 40 mg subQ daily, resume after chest tube removal and platelet recovery. Infectious disease: * Repeat blood cultures if febrile or WBC rises ID on board Continue IV linezolid q.12h. Continue Zosyn 3.375 g IV q.8h. Continue IV doxycycline 100 mg b.i.d.. Noted blood cultures and sputum cultures. Continue IV doxycycline and linezolid Zyvox via a PICC line for 6 weeks. Pulmonary: Critical Care consult has been placed. Supplemental oxygen support, CPAP support and BiPAP setting as necessary to maintain SpO2 levels greater than 92 Budesonide, albuterol ipratropium nebulizations. Monitor ABGs, O2 sats, chest x-ray. Appreciate Pulmonary and critical Care consult suggestions. * Maintain O? via nasal cannula at 1L/min * Wean off as tolerated * Daily chest physiotherapy; monitor ABG Cardiovascular: Continue aspirin 81 mg p.o. daily, metoprolol 12.5 Mg b.i.d., amlodipine5 mg daily. Monitor UOP P, daily weights. 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 Continue telemetry monitoring * Proceed with left heart catheterization ? aortic valve replacement * Monitor troponins and BNP; follow-up Echo post-op Renal/metabolic Monitor CR, BUN, GFR. Avoid nephrotoxins. Monitor glucose, proteinuria. Replete potassium, magnesium, phosphorus. for per facility protocol. * Strict I/Os, daily BMP * Replace K?, Mg? per protocol * Hold nephrotoxic meds PRN GI/nutrition Pantoprazole IV daily. Monitor for GI bleeding. Add thiamine, folate multivitamins if chronic alcohol use. Hematology Monitor platelets for ITP versus reactive thrombocytosis. Consider iron studies, B12, reticulocyte count for anemia. Monitor HGB, hematocrit and platelet counts daily Fondaparinux 2.5 mg subQ daily for anticoagulation per Hematology. DVT prophylaxis with ambulation. Musculoskeletal: Monitor left knee swelling Avoid NSAIDs due to BRENDAN. Ortho referral if worsening. Sedation/neuro: Precedex for sedation, taper as tolerated. Determine at bedtime for sleep hygiene. ICU delirium prevention with 3 orientation, mobility and lytes during the day. Endocrine: Glucose control with insulin. Monitor for ketones and TKA signs. Consider A1c when stable. Substance use: Assess for withdrawal. [facility] protocol p.r.n. if needed. Offered smoking cessation and substance abuse counseling. Case management consult has been placed for further discharge planning. ATTESTATION BY PHYSICIAN I have seen and examined the patient. I reviewed the documentation, medical decision making, and treatment plan as noted by the resident above. I agree with the findings and plan of care. Benoit Martinez MD, RAGHAVA R MD Mar 07, 2025 11:45
--- NOTE | 2025-03-07 13:33 | NUR ---
Chest tubes x 2 discontinued at bedside with assistance of Padmini BOWMAN. Preintervention vitals T 98.4 P86 R18 BP 108/64 02 stats 100% on room air. Patient tolerated intervention well with mild discomfort. Catheter tips appeared intact, vaseline/gauze dressing applied over access sites, reinforced with paper tape. Post intervention vitals P 91 R20 BP 106/68 02 stats 100%. Pacing wires clipped at this time as well. Patient states he is comfortable after intervention, call light and personal items within reach, bed locked in low position, bed alarm on, no further needs noted.
--- NOTE | 2025-03-07 13:36 | PN ---
54-year-old male with a complex medical history including recent hospitalization with a Gram-positive bacteremia secondary to Staph aureus, severe sepsis and endocarditis with echogenic vegetations on noncoronary cusps and right coronary cusp as well as left atrial appendage clot on January 11, 2025 presented to the ED days history of worsening shortness of breath. He was discharged on January 31, 2025 with long-term IV linezolid via PICC line for infective endocarditis. Patient actually was found to have endocarditis. With the patient in the obese acute aortic insufficiency status post surgery. Patient with bacteremia receiving antibiotic treatment. Patient with anemia and thrombocytopenia. It seems the patient is suspicious of having heparin-induced thrombocytopenia. Patient was started on Arixtra 2.5 mg subcu daily PHYSICAL EXAM GENERAL APPEARANCE ill appearing, alert NEUROLOGICAL: Cranial nerves II-XII grossly intact. Motor is 5/5 in bilateral upper and lower extremities proximal to distal. No sensory deficits. HEENT: Face is symmetric. Pupils are equal and reactive. Extraocular movements are intact. NECK: Supple. No JVD. No thyromegaly. No submental, submandibular, pre- /postauricular, occipital or supraclavicular lymphadenopathy. CHEST: Chest tube in place. LUNGS: Decreased air entry bilaterally CARDIOVASCULAR: Regular. S1 and S2 normal. No appreciable rubs, murmurs or gallops. Tachycardia present ABDOMEN: Soft, nontender, and nondistended. There is no rebound, voluntary guarding, or rigidity. : Deferred. No Ortega. SKIN: No skin breakdown. Assessment 1. Anemia 2. Thrombocytopenia. Platelet count improved. 3. Severe aortic valve insufficiency due to endocarditis s/p surgery 4. Possibility of heparin-induced thrombocytopenia 5. Gram-positive bacteremia 6. Cocaine abuse 7. Acute on chronic renal failure 8. Acute respiratory failure with the patient is improving. 9. Diabetes mellitus Plan 1. Peripheral blood smear showed red blood cells to be normocytic normochromic. There was no fragment cell or schistocyte. There is no teardrop cell. There is no pelger-Huet cell. White blood cell with no blasts. There is large platelet consistent with peripheral consumption of the platelet. There was no schistocytes or fragments in which rule out TTP and DIC. 2. There was hypersegmented neutrophils. This patient to Continue on folic acid 1 mg p.o. daily and vitamin B12 1000 mcg p.o. daily. 3. 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 We asked for SPEP, UPEP and free light chain. If there is monoclonal protein we will do a bone marrow biopsy. 4. This patient will need anticoagulation. So this patient actually could benefit from Arixtra 2.5 mg subcu daily. 5. Continue antibiotic treatment as per infectious disease specialist Vitals/Labs Vital Signs Date Time Temp Pulse Resp B/P (MAP) Pulse Ox O2 Delivery O2 Flow Rate FiO2 03/07/25 11:00 97.5 81 17 111/73 100 Room Air 03/07/25 07:50 0 N/A Laboratory Tests 03/07/25 03:50 Medications Current Medications Vancomycin HCl 1 each AD IV; Start 02/23/25 at 19:00; Stop 02/23/25 at 19:33; Status DC Piperacillin Sod/ Tazobactam Sod 3.375 gm ONCE ONCE IV Last administered on 02/23/25at 19:58; Start 02/23/25 at 19:00; Stop 02/23/25 at 19:01; Status DC Vancomycin HCl 500 ml @ 250 mls/hr ONCE ONCE IV; Start 02/23/25 at 19:30; Stop 02/23/25 at 19:34; Status DC Sodium Chloride 1,000 ml @ 0 mls/hr ONCE ONCE IV Last administered on 02/23/25at 19:58; Start 02/23/25 at 20:00; Stop 02/23/25 at 19:58; Status DC Sodium Chloride 500 ml @ 0 mls/hr ONCE ONCE IV; Start 02/23/25 at 20:00; Stop 02/23/25 at 20:01; Status DC Sodium Chloride 1,000 ml @ 75 mls/hr [id number] IV Last administered on 02/23/25at 20:08; Start 02/23/25 at 20:00; Stop 02/23/25 at 23:03; Status DC Furosemide 40 mg ONCE ONCE IV Last administered on 02/23/25at 20:10; Start 02/23/25 at 20:00; Stop 02/23/25 at 20:01; Status DC Piperacillin Sod/ Tazobactam Sod 3.375 gm Q8H IV Last administered on 03/05/25at 21:05; Start 02/24/25 at 05:00; Stop 03/06/25 at 04:59; Status DC Pharmacy Profile Note 1 each ONCE MISC; Start 02/23/25 at 23:00; Stop 02/23/25 at 23:48; Status DC Acetaminophen/ Hydrocodone Bitart 1 tab Q6H PRN PO Last administered on 02/28/25at 08:27; Start 02/23/25 at 23:00; Stop 02/28/25 at 22:59; Status DC Heparin Sodium (Porcine) 5,000 unit BID SQ Last administered on 03/01/25at 20:22; Start 02/24/25 at 09:00; Stop 03/02/25 at 14:57; Status DC Albuterol 1 UDVIAL [id number] IH Last administered on 02/24/25at 07:08; Start 02/24/25 at 00:00; Stop 02/24/25 at 14:15; Status DC Hydroxyzine HCl 25 mg ONCE ONCE PO Last administered on 02/24/25at 00:55; Start 02/24/25 at 00:30; Stop 02/24/25 at 00:39; Status DC Linezolid 300 ml @ 150 mls/hr ONCE ONCE IV Last administered on 02/24/25at 00:55; Start 02/24/25 at 01:00; Stop 02/24/25 at 02:59; Status DC Furosemide 40 mg Q12H IV Last administered on 02/24/25at 09:34; Start 02/24/25 at 08:30; Stop 02/24/25 at 10:20; Status DC Pharmacy Profile Note 1 each AD MISC; Start 02/24/25 at 10:30; Stop 02/24/25 at 10:32; Status DC Doxycycline Hyclate 100 mg BID PO Last administered on 03/06/25at 07:59; Start 02/24/25 at 21:00; Stop 03/06/25 at 20:59; Status DC Furosemide 40 mg Q8H IV Last administered on 02/28/25at 08:26; Start 02/24/25 at 16:30; Stop 02/28/25 at 09:13; Status DC Dexmedetomidine/ Sodium Chloride 400 mcg PROTOCOL IV; Start 02/24/25 at 10:30; Stop 03/02/25 at 14:57; Status DC Ipratropium Holbrook 0.5 MG [id number] IH Last administered on 03/07/25 07:04; Start 02/24/25 at 14:00; Stop 03/26/25 at 13:59 Budesonide 0.5 mg BIDRESP IH Last administered on 03/07/25 07:04; Start 02/24/25 at 18:00; Stop 03/26/25 at 17:59 Montelukast Sodium 10 mg DAILY PO Last administered on 03/07/25 08:49; Start 02/25/25 at 09:00; Stop 03/27/25 at 08:59 Linezolid 300 ml @ 150 mls/hr Q12H IV Last administered on 03/05/25at 22:13; Start 02/24/25 at 11:00; Stop 03/06/25 at 10:59; Status DC Metolazone 5 mg DAILY PO Last administered on 03/01/25 14:49; Start 02/25/25 at 09:00; Stop 03/02/25 at 14:57; Status DC Folic Acid 1 mg DAILY PO Last administered on 02/25/25at 09:07; Start 02/25/25 at 09:00; Stop 02/26/25 at 07:40; Status DC Melatonin 10 mg HS PRN PO Last administered on 03/01/25 23:53; Start 02/24/25 at 11:00; Stop 03/02/25 at 14:57; Status DC Pantoprazole Sodium 40 mg DAILY IVP Last administered on 03/02/25at 11:54; Start 02/24/25 at 11:00; Stop 03/02/25 at 14:57; Status DC Aspirin 81 mg DAILY PO Last administered on 03/07/25 08:49; Start 02/25/25 at 09:00; Stop 03/27/25 at 08:59 Folic Acid 1 mg DAILY PO Last administered on 03/07/25 08:49; Start 02/25/25 at 09:00; Stop 03/27/25 at 08:59 Thiamine HCl 100 mg DAILY PO Last administered on 03/07/25 08:49; Start 02/25/25 at 09:00; Stop 03/27/25 at 08:59 Nystatin 5 ml QID PO Last administered on 03/07/25at 12:29; Start 02/24/25 at 17:00; Stop 03/26/25 at 16:59 Ondansetron HCl 4 mg Q6H PRN IVP Last administered on 03/02/25at 12:05; Start 02/24/25 at 21:00; Stop 03/02/25 at 14:57; Status DC Promethazine HCl 25 mg ONCE ONCE IM Last administered on 02/24/25at 21:11; Start 02/24/25 at 21:00; Stop 02/24/25 at 21:05; Status DC Alteplase, Recombinant 4 mg ONCE IVCATH Last administered on 02/25/25at 10:44; Start 02/25/25 at 09:30; Stop 02/25/25 at 11:00; Status DC Potassium Chloride 100 ml @ 100 mls/hr AD PRN IV Last administered on 02/27/25at 08:24; Start 02/25/25 at 11:00; Stop 02/27/25 at 10:47; Status DC Potassium Chloride 10 meq AD PRN PO; Start 02/25/25 at 11:00; Stop 03/02/25 at 14:57; Status DC Potassium Chloride 10 meq AD PRN PO; Start 02/25/25 at 11:00; Stop 02/27/25 at 10:48; Status DC Potassium Chloride 100 ml @ 100 mls/hr AD PRN IV Last administered on 03/02/25at 11:54; Start 02/25/25 at 11:00; Stop 03/02/25 at 14:57; Status DC Magnesium Sulfate 50 ml @ 0 mls/hr PROTOCOL PRN IV Last administered on 02/25/25at 11:27; Start 02/25/25 at 11:00; Stop 03/02/25 at 14:57; Status DC Pharmacy Profile Note 1 each AD MISC; Start 02/25/25 at 15:30; Stop 02/25/25 at 15:17; Status DC Pharmacy Profile Note 1 each ONCE MISC; Start 02/25/25 at 15:30; Stop 02/25/25 at 15:17; Status DC Acetaminophen/ Codeine Phosphate 10 ml Q4H PRN PO; Start 02/25/25 at 15:30; Stop 02/25/25 at 15:16; Status DC Potassium Chloride 40 meq ONCE ONCE PO Last administered on 02/25/25at 21:44; Start 02/25/25 at 22:00; Stop 02/25/25 at 22:01; Status DC Potassium Chloride 40 meq ONCE ONCE PO Last administered on 02/27/25at 05:53; Start 02/27/25 at 05:30; Stop 02/27/25 at 05:32; Status DC Potassium Chloride 10 meq AD PRN PO Last administered on 03/01/25at 05:39; Start 02/27/25 at 11:00; Stop 03/02/25 at 14:57; Status DC Potassium Chloride 20 meq DAILY PO Last administered on 03/01/25at 14:50; Start 03/01/25 at 09:00; Stop 03/02/25 at 14:57; Status DC Bumetanide 40 ml @ 0 mls/hr AD IV Last administered on 03/02/25at 06:01; Start 02/28/25 at 09:30; Stop 03/02/25 at 14:57; Status DC Acetaminophen/ Hydrocodone Bitart 1 tab Q6H PRN PO Last administered on 03/01/25at 23:53; Start 03/01/25 at 00:30; Stop 03/02/25 at 14:57; Status DC Heparin Sodium/ Sodium Chloride 1,000 ml @ As Directed STK-MED ONCE IV; Start 03/01/25 at 11:25; Stop 03/01/25 at 11:25; Status DC Lidocaine HCl 20 ml STK-MED ONCE .ROUTE; Start 03/01/25 at 11:26; Stop 03/01/25 at 11:27; Status DC Heparin Sodium (Porcine) 10,000 unit STK-MED ONCE .ROUTE; Start 03/01/25 at 11:27; Stop 03/01/25 at 11:27; Status DC Nitroglycerin 50 mg STK-MED ONCE .ROUTE; Start 03/01/25 at 11:27; Stop 03/01/25 at 11:27; Status DC Iohexol 35,000 mg STK-MED ONCE IV; Start 03/01/25 at 11:30; Stop 03/01/25 at 11:31; Status DC Verapamil HCl 5 mg STK-MED ONCE .ROUTE; Start 03/01/25 at 11:40; Stop 03/01/25 at 11:41; Status DC Fentanyl Citrate 100 mcg STK-MED ONCE .ROUTE; Start 03/01/25 at 12:02; Stop 03/01/25 at 12:02; Status DC Midazolam HCl 2 mg STK-MED ONCE .ROUTE; Start 03/01/25 at 12:02; Stop 03/01/25 at 12:02; Status DC Sodium Chloride 1,000 ml @ 150 mls/hr Q6H40M IV Last administered on 03/01/25at 14:50; Start 03/01/25 at 13:00; Stop 03/01/25 at 15:37; Status DC Dextrose 50 ml AD PRN IV; Start 03/01/25 at 13:00; Stop 03/02/25 at 15:25; Status DC Glucagon 1 mg AD PRN IM; Start 03/01/25 at 13:00; Stop 03/02/25 at 15:38; Status DC Cefazolin Sodium 2 gm ONCALL IVP; Start 03/01/25 at 23:00; Stop 03/02/25 at 15:20; Status DC Epinephrine HCl 10 mg/Sodium Chloride 250 ml @ 0 mls/hr AD PRN IV; Start 03/02/25 at 08:30; Stop 04/01/25 at 08:29 Norepinephrine Bitartrate 250 ml @ 0 mls/hr AD PRN IV; Start 03/02/25 at 08:30; Stop 04/01/25 at 08:29 Aminocaproic Acid 26602 mg/Sodium Chloride 480 ml @ 0 mls/hr AD PRN IV; Start 03/02/25 at 08:30; Stop 04/01/25 at 08:29 Sodium Chloride 1,000 ml @ As Directed STK-MED ONCE IV Last administered on 03/02/25at 12:44; Start 03/02/25 at 12:34; Stop 03/02/25 at 12:34; Status DC Sodium Chloride 1,000 ml @ 0 mls/hr Q0M IV; Start 03/02/25 at 13:00; Stop 04/01/25 at 12:59 Nitroglycerin/ Dextrose 1 ml @ As Directed STK-MED ONCE .ROUTE; Start 03/02/25 at 13:06; Stop 03/02/25 at 13:06; Status DC Sodium Bicarbonate 100 ml @ As Directed STK-MED ONCE .ROUTE; Start 03/02/25 at 13:26; Stop 03/02/25 at 13:26; Status DC Cefazolin Sodium 1 gm STK-MED ONCE .ROUTE; Start 03/02/25 at 13:39; Stop 03/02/25 at 13:39; Status DC Heparin Sodium/ Sodium Chloride 500 ml @ As Directed STK-MED ONCE IV; Start 03/02/25 at 13:39; Stop 03/02/25 at 13:40; Status DC Protamine Sulfate 250 mg STK-MED ONCE IV; Start 03/02/25 at 14:02; Stop 03/02/25 at 14:02; Status DC Lidocaine HCl 100 mg STK-MED ONCE .ROUTE; Start 03/02/25 at 14:02; Stop 03/02/25 at 14:02; Status DC Heparin Sodium (Porcine) 10,000 unit STK-MED ONCE .ROUTE; Start 03/02/25 at 14:02; Stop 03/02/25 at 14:02; Status DC Epinephrine HCl 1 mg STK-MED ONCE .ROUTE; Start 03/02/25 at 14:02; Stop 03/02/25 at 14:02; Status DC Sodium Bicarbonate 200 ml @ As Directed STK-MED ONCE .ROUTE; Start 03/02/25 at 14:02; Stop 03/02/25 at 14:02; Status DC Norepinephrine Bitartrate 4 mg STK-MED ONCE IV; Start 03/02/25 at 14:02; Stop 03/02/25 at 14:02; Status DC Propofol 200 mg STK-MED ONCE IV; Start 03/02/25 at 14:02; Stop 03/02/25 at 14:03; Status DC Fentanyl Citrate 1,000 mcg STK-MED ONCE IJ; Start 03/02/25 at 14:02; Stop 03/02/25 at 14:03; Status DC Midazolam HCl 2 mg STK-MED ONCE .ROUTE; Start 03/02/25 at 14:03; Stop 03/02/25 at 14:03; Status DC Rocuronium [place]brook 50 mg STK-MED ONCE .ROUTE; Start 03/02/25 at 14:03; Stop 03/02/25 at 14:03; Status DC Sodium Chloride 1,000 ml @ 10 mls/hr ONCE IV Last administered on 03/02/25at 15:00; Start 03/02/25 at 15:00; Stop 03/03/25 at 14:59; Status DC Sodium Chloride 10 ml Q8H PRN IVP; Start 03/02/25 at 15:00; Stop 04/01/25 at 14:59 Morphine Sulfate 0.5 mg Q2H PRN IV; Start 03/02/25 at 15:00; Stop 03/03/25 at 14:59; Status DC Morphine Sulfate 1 mg Q2H PRN IV; Start 03/02/25 at 15:00; Stop 03/03/25 at 14:59; Status DC Acetaminophen 650 mg Q4H PRN RC; Start 03/02/25 at 15:00; Stop 04/01/25 at 14:59 Ondansetron HCl 4 mg Q6H PRN IV Last administered on 03/05/25at 21:06; Start 03/02/25 at 15:00; Stop 04/01/25 at 14:59 Sodium Chloride 500 ml @ 0 mls/hr AD IV Last administered on 03/03/25at 01:32; Start 03/02/25 at 15:00; Stop 04/01/25 at 14:59 Nitroglycerin/ Dextrose 0 ml @ 0 mls/hr AD IV; Start 03/02/25 at 15:00; Stop 03/05/25 at 14:59; Status DC Propofol 100 ml @ 0 mls/hr AD PRN IV; Start 03/02/25 at 15:00; Stop 03/06/25 at 14:59; Status DC Norepinephrine Bitartrate 8 mg/ Dextrose 250 ml @ 0 mls/hr AD PRN IV; Start 03/02/25 at 15:00; Stop 03/02/25 at 15:16; Status DC Epinephrine HCl 10 mg/Sodium Chloride 250 ml @ 0 mls/hr AD PRN IV; Start 03/02/25 at 15:00; Stop 03/02/25 at 15:16; Status DC Aminocaproic Acid 74438 mg/Sodium Chloride 310 ml @ 25 mls/hr AD IV; Start 03/02/25 at 15:00; Stop 03/02/25 at 15:15; Status DC Calcium Gluconate 1 gm/Sodium Chloride 60 ml @ 0 mls/hr AD PRN IV Last administered on 03/03/25at 02:29; Start 03/02/25 at 15:00; Stop 04/01/25 at 14:59 Magnesium Sulfate 50 ml @ 12.5 mls/hr AD PRN IV Last administered on 03/07/25at 08:50; Start 03/02/25 at 15:00; Stop 04/01/25 at 14:59 Potassium Chloride 100 ml @ 100 mls/hr AD PRN IV Last administered on 03/06/25at 05:21; Start 03/02/25 at 15:00; Stop 04/01/25 at 14:59 Potassium Phosphate 250 ml @ 42 mls/hr AD PRN IV Last administered on 03/03/25at 09:48; Start 03/02/25 at 15:00; Stop 04/01/25 at 14:59 Albumin Human 250 ml @ 0 mls/hr AD PRN IV; Start 03/02/25 at 15:00 Acetaminophen 650 mg Q4H PRN PO; Start 03/02/25 at 15:00; Stop 04/01/25 at 14:59 Insulin Human Regular 100 unit/ Sodium Chloride 100 ml @ 0 mls/hr AD IV Last administered on 03/02/25at 19:17; Start 03/02/25 at 15:00; Stop 03/04/25 at 14:59; Status DC Cefazolin Sodium 2 gm Q8H IVPB Last administered on 03/03/25at 14:04; Start 03/02/25 at 20:00; Stop 03/03/25 at 12:01; Status DC Tramadol HCl 25 mg Q6H PRN PO; Start 03/02/25 at 15:00; Stop 03/02/25 at 15:33; Status DC Tramadol HCl 50 mg Q6H PRN PO; Start 03/02/25 at 15:00; Stop 03/02/25 at 15:39; Status DC Famotidine 20 mg DAILY IV Last administered on 03/05/25at 08:40; Start 03/03/25 at 09:00; Stop 03/06/25 at 07:40; Status DC Sodium Bicarbonate 50 meq AD PRN IV Last administered on 03/02/25at 22:09; Start 03/02/25 at 15:00; Stop 03/05/25 at 14:59; Status DC Dextrose 50 ml AD PRN IV; Start 03/02/25 at 15:00; Stop 04/01/25 at 14:59 Glucagon 1 mg AD PRN IM; Start 03/02/25 at 15:00; Stop 04/01/25 at 14:59 Amiodarone HCl 150 mg STK-MED ONCE .ROUTE; Start 03/02/25 at 15:11; Stop 03/02/25 at 15:12; Status DC Rocuronium [place]brook 50 mg STK-MED ONCE .ROUTE; Start 03/02/25 at 15:52; Stop 03/02/25 at 15:52; Status DC Factor IX (Pha) 1 mg STK-MED ONCE .ROUTE; Start 03/02/25 at 16:43; Stop 03/02/25 at 16:43; Status DC Factor IX (Pha) 1 mg STK-MED ONCE .ROUTE; Start 03/02/25 at 16:52; Stop 03/02/25 at 16:53; Status DC Desmopressin Acetate 40 mcg/ Sodium Chloride 50 ml @ 100 mls/hr AD STAT IJ; Start 03/02/25 at 17:44; Stop 03/02/25 at 18:13; Status DC Cefazolin Sodium 3 gm STK-MED ONCE IVPB Last administered on 03/02/25at 15:00; Start 03/02/25 at 15:00; Stop 03/02/25 at 19:27; Status DC Cefazolin Sodium 1 gm STK-MED ONCE IRRIG Last administered on 03/02/25at 15:15; Start 03/02/25 at 15:15; Stop 03/02/25 at 19:27; Status DC Albumin Human 500 ml @ 0 mls/hr AD IV Last administered on 03/03/25at 01:31; Start 03/03/25 at 01:30; Stop 03/03/25 at 08:52; Status DC Vasopressin 40 units/Sodium Chloride 40 ml @ 0 mls/hr PROTOCOL IV; Start 03/03/25 at 01:30; Stop 04/02/25 at 01:29 Sodium Chloride 500 ml @ 0 mls/hr Q0M IV; Start 03/03/25 at 01:30; Stop 03/03/25 at 08:52; Status DC Acetaminophen 1,000 mg Q6H6 IVPB; Start 03/03/25 at 03:30; Stop 03/03/25 at 04:00; Status DC Tramadol HCl 50 mg Q6H PRN PO Last administered on 03/07/25at 12:42; Start 03/03/25 at 03:30; Stop 03/08/25 at 03:29 Acetaminophen 1,000 mg Q6H IVPB Last administered on 03/03/25at 04:17; Start 03/03/25 at 04:00; Stop 03/03/25 at 08:44; Status DC Acetaminophen 1,000 mg Q6H6 IV Last administered on 03/04/25at 06:32; Start 03/03/25 at 09:00; Stop 03/04/25 at 08:59; Status DC Docusate Sodium 100 mg BID PO Last administered on 03/07/25at 08:49; Start 03/03/25 at 09:00; Stop 04/02/25 at 08:59 Lactulose 20 gm BID PRN PO; Start 03/03/25 at 09:00; Stop 04/02/25 at 08:59 Furosemide 20 mg Q12H PO; Start 03/04/25 at 09:00; Stop 03/03/25 at 08:54; Status DC Furosemide 20 mg Q12H IV; Start 03/03/25 at 09:00; Stop 03/03/25 at 08:54; Status DC Enoxaparin Sodium 30 mg DAILY SQ; Start 03/05/25 at 09:00; Stop 03/05/25 at 19:17; Status DC Metoprolol Tartrate 12.5 mg BID PO Last administered on 03/05/25at 08:41; Start 03/04/25 at 09:00; Stop 03/05/25 at 12:08; Status DC Magnesium Hydroxide 30 ml DAILY PRN PO; Start 03/03/25 at 09:00; Stop 04/02/25 at 08:59 Acetaminophen 650 mg Q6H PRN PO Last administered on 03/05/25at 00:35; Start 03/03/25 at 09:00; Stop 04/02/25 at 08:59 Furosemide 20 mg Q12H IV Last administered on 03/03/25at 20:10; Start 03/03/25 at 09:00; Stop 03/04/25 at 08:59; Status DC Furosemide 20 mg BID@,17 PO Last administered on 03/06/25at 07:59; Start 03/04/25 at 09:00; Stop 03/06/25 at 08:42; Status DC Cefazolin Sodium 2 gm STK-MED ONCE .ROUTE; Start 03/03/25 at 13:58; Stop 03/03/25 at 13:59; Status DC Metoprolol Tartrate 25 mg BID PO Last administered on 03/07/25at 08:49; Start 03/05/25 at 21:00; Stop 04/04/25 at 20:59 Metoprolol Tartrate 12.5 mg ONCE ONCE PO Last administered on 03/05/25at 13:34; Start 03/05/25 at 13:30; Stop 03/05/25 at 13:31; Status DC Fondaparinux 2.5 mg DAILY SQ; Start 03/06/25 at 09:00; Stop 03/06/25 at 09:05; Status DC Amlodipine Besylate 10 mg DAILY PO Last administered on 03/07/25at 08:49; Start 03/06/25 at 09:00; Stop 04/05/25 at 08:59 Hydralazine HCl 10 mg Q6H PRN IV; Start 03/06/25 at 09:00; Stop 04/05/25 at 08:59 Furosemide 30 mg Q12H IV Last administered on 03/07/25at 08:50; Start 03/06/25 at 09:00; Stop 03/07/25 at 21:01 Potassium Chloride 20 meq AD PRN PO Last administered on 03/07/25at 12:42; Start 03/06/25 at 09:00; Stop 04/05/25 at 08:59 Piperacillin Sod/ Tazobactam Sod 3.375 gm Q8H IVPB Last administered on 03/07/25at 12:29; Start 03/06/25 at 12:30; Stop 03/20/25 at 12:29 Pharmacy Profile Note 1 each ONCE MISC; Start 03/06/25 at 12:30; Stop 03/06/25 at 12:17; Status DC Linezolid 300 ml @ 150 mls/hr Q12H IV Last administered on 03/07/25at 12:29; Start 03/06/25 at 12:30; Stop 03/16/25 at 12:29 Fondaparinux 2.5 mg ONCE ONCE SQ Last administered on 03/06/25at 15:12; Start 03/06/25 at 14:30; Stop 03/06/25 at 14:31; Status DC Fondaparinux 2.5 mg DAILY SQ; Start 03/07/25 at 09:00; Stop 04/06/25 at 08:59 LEOPOLDO AGUILAR MD Mar 07, 2025 13:36
[2025-03-07] MEDS: FONDAPARINUX SODIUM 2.5 MG/0.5 ML SQ SCH (14:52)
--- NOTE | 2025-03-07 15:13 | HMCIMG ---
CHEST 1VW HISTORY: Post chest tube removal COMPARISON: 03/07/2025 FINDINGS: A frontal projection of the chest was obtained. Mild bilateral pulmonary infiltrates are seen may be related to mild pulmonary vascular congestion with possible superimposed pneumonitis. Poststernotomy changes are seen. The heart is enlarged. Degenerative changes of the thoracolumbar spine are present. Degenerative changes are seen. IMPRESSION: 1. Mild bilateral pulmonary infiltrates are seen may be related to mild pulmonary vascular congestion with possible superimposed pneumonitis.
--- NOTE | 2025-03-07 17:52 | PN ---
INFECTIOUS DISEASE PROGRESS NOTE Date of Service: Mar 07, 2025 SUBJECTIVE: This is a 44-year-old male patient who was seen and examined at bedside in room 203. Patient is awake, alert and oriented x3. Patient is status post bioprosthetic aortic valve replacement on 03/02/2025. Patient's chest tube was discontinued this afternoon and tolerated well. We will continue on Linezolid and Zosyn. BUN is down to 25 and creatinine is down to 1.6 today. We will continue to follow patient's care. PHYSICAL EXAM EYES: Anicteric. Pupils equal and reactive. HENT: No oral thrush seen, moist Oral mucosa. NECK: Supple, no JVD or thyromegaly. LUNGS: Lung sounds clear. CHEST: Surgical incision to his mid chest with dressing in place. CARDIOVASCULAR: S1, S2 regular. No murmur heard. Chest tube discontinued today. ABDOMEN: Soft, non tender, bowel sounds present, no organomegaly. CENTRAL NERVOUS SYSTEM: Awake, alert, oriented x 3. SKIN: No rashes, no swelling. Lower extremity edema. LYMPHATICS: No peripheral lymphadenopathy. MUSCULOSKELETAL: No joint swelling, erythema or tenderness. EXTREMITIES: No cyanosis or clubbing. Lower extremities edema, improving. BACK: No deformity, no pressure ulcer. GENITOURINARY: No dysuria or hematuria. Vital Sign (Last 12 Hours) 03/07/25 03/07/25 03/07/25 03/07/25 07:00 07:04 07:05 07:50 Temp 97.5 Pulse 77 77 77 Resp 17 19 19 B/P (MAP) 119/80 Pulse Ox 100 97 O2 Delivery Room Air N/A Room Air Room Air* Aerosol Mask+ O2 Flow Rate 0 FiO2 21 N/A 03/07/25 03/07/25 03/07/25 11:00 14:30 15:30 Temp 97.5 97.3 Pulse 81 82 87 Resp 17 19 18 B/P (MAP) 111/73 113/68 Pulse Ox 100 99 O2 Delivery Room Air N/A Room Air Room Air FiO2 21 Intake & Output (last 24hrs) 03/06/25 03/06/25 03/07/25 14:59 22:59 06:59 Intake Total 350.0 ml 590.0 ml Output Total 50 ml 1220 ml Balance 300.0 ml -630.0 ml LABS: Laboratory: Test 03/07/25 03:50 03/06/25 13:39 Range/Units White Blood Count 9.1 4.8-10.8 K/uL Red Blood Count 2.93 L 4.50-6.20 MIL/uL Hemoglobin 8.6 L 14.0-18.0 g/dL Hematocrit 25.7 L 42-54 % Mean Corpuscular Volume 87.7 79-99 fL Mean Corpuscular Hemoglobin 29.4 27.0-33.0 pg Mean Corpuscular Hemoglobin Concent 33.5 32.0-36.0 g/dL Red Cell Distribution Width 14.8 11.0-15.5 % Platelet Count 113 #L 130-400 K/uL Mean Platelet Volume 11.7 H 7.5-10.5 fL Immature Granulocyte % (Auto) 0.3 0-1 % Neutrophils (%) (Auto) 66.3 40.0-77.0 % Lymphocytes (%) (Auto) 20.7 L 21.0-51.0 % Monocytes (%) (Auto) 8.0 3.0-13.0 % Eosinophils (%) (Auto) 4.1 0.0-8.0 % Basophils (%) (Auto) 0.6 0.0-5.0 % Neutrophils # (Auto) 6.0 1.8-7.7 K/uL Lymphocytes # (Auto) 1.9 1.0-4.8 K/uL Monocytes # (Auto) 0.7 0.1-1.0 K/uL Eosinophils # (Auto) 0.37 0.00-0.70 K/uL Basophils # (Auto) 0.05 0.00-0.20 K/uL Absolute Immature Granulocyte (auto 0.03 0-1 K/uL Nucleated Red Blood Cells 0.0 0.0-0.19 % Sodium Level 135 L 136-145 mmol/L Potassium Level 3.5 3.5-5.1 mmol/L Chloride Level 100 L 101-111 mmol/L Carbon Dioxide Level 29 21-32 mmol/L Blood Urea Nitrogen 25 H 7-18 mg/dL Creatinine 1.6 H 0.5-1.3 mg/dL Glomerular Filtration Rate Calc 54 >90 mL/min Random Glucose 114 H 70-105 mg/dL Total Calcium 8.4 L 8.5-10.1 mg/dL Magnesium Level 1.60 L 1.80-2.40 mg/dL Iron Level 140 # 65-175 mcg/dL Total Iron Binding Capacity 135 L 250-450 mcg/dL Percent Iron Saturation 103.7 H 30-44 % ASSESSMENT: Gram-positive Bacteremia. Aortic valve Endocarditis with aortic insufficiency, s/p aortic valve replacement on 03/02/2025. Bacterial Pneumonia. Leukocytosis, resolved. Acute on chronic diastolic heart failure. Acute on chronic renal failure, improving. Morbid obesity. Hypoxic respiratory failure, resolved. Anemia requiring blood transfusion. Hypokalemia. PLAN: Continue linezolid IV. Continue Zosyn IV. Continue doxycycline. Continue diuretics. Oxygen support as needed. Continue pain management. Avoid nephrotoxic medications. This case was reviewed and discussed with my supervising physician and the above assessment and plan was formulated and agreed upon. ATTESTATION BY PHYSICIAN I have seen and examined the patient. I reviewed the documentation, medical decision making, and treatment plan as noted by the mid-level provider above. I agree with the findings and plan of care. JANUARY CARLSON MD, MIRTA L [facility] Mar 07, 2025 17:51
[2025-03-08] VITALS (12 sets, daily range): BP systolic 97–121; BP diastolic 56–81; PULSE 77–93; RESP 17–18; TEMP 97.5–98.7; O2SAT 96–98
[2025-03-08 05:07] LABS: BASOPHILS # (AUTO) 0.06 K/uL (0.00-0.20); BASOPHILS % (AUTO) 0.7 % (0.0-5.0); EOSINOPHILS # (AUTO) 0.37 K/uL (0.00-0.70); HEMATOCRIT 25.2 % (42-54); IMMATURE GRANULOCYTE ABSOLUTE 0.03 K/uL (0-1); LYMPHOCYTES # (AUTO) 1.8 K/uL (1.0-4.8); LYMPHOCYTES % (AUTO) 19.7 % (21.0-51.0); MEAN CORPUSCULAR HEMOGLOBIN 29.6 pg (27.0-33.0); MEAN CORPUSCULAR HGB CONC 33.7 g/dL (32.0-36.0); MEAN CORPUSCULAR VOLUME 87.8 fL (79-99); MONOCYTES # (AUTO) 0.7 K/uL (0.1-1.0); MONOCYTES % (AUTO) 7.8 % (3.0-13.0); NEUTROPHILS # (AUTO) 6.2 K/uL (1.8-7.7); NEUTROPHILS % (AUTO) 67.5 % (40.0-77.0); PLATELET COUNT (AUTO) 103 K/uL (130-400); RED BLOOD CELL COUNT(AUTO) 2.87 MIL/uL (4.50-6.20); RED CELL DISTRIBUTION WIDTH 14.7 % (11.0-15.5); WHITE BLOOD COUNT (AUTO) 9.2 K/uL (4.8-10.8)
[2025-03-08 05:42] LABS: ALBUMIN 2.1 g/dL (3.5-5.0); ASPARTATE AMINOTRANSFERASE 12 U/L (10-37); BILIRUBIN,TOTAL 0.4 mg/dL (0.2-1.0); CARBON DIOXIDE 25 mmol/L (21-32); CHLORIDE 100 mmol/L (101-111); CREATININE 1.5 mg/dL (0.5-1.3); GLOMERULAR FILTR. RATE CALC 59 mL/min (>90); GLUCOSE,RANDOM 130 mg/dL (70-105); POTASSIUM 3.8 mmol/L (3.5-5.1); SODIUM SERUM 137 mmol/L (136-145); TOTAL PROTEIN, SERUM 5.8 g/dL (6.0-8.3); UREA NITROGEN, BLOOD 22 mg/dL (7-18)
[2025-03-08 05:51] LABS: ALANINE AMINOTRANSFERASE < 6 U/L (12-78)
--- NOTE | 2025-03-08 08:12 | PN ---
[facility] PROGRESS NOTE Date Patient Seen: Mar 08, 2025 Time of Visit: 08:11 Supervising Physician: Altaf Fitzgerald MD Primary Care Physician: Self Referral Outpatient Specialists: Inpatient Consults: Dr Dumont PROBLEM LIST: - Acute Hypoxic respiratory failure POA Resolved -Acute on chronic diastolic heart failure w/ EF 50-55% on 2 D echo POA, resolving - Aortica Valvular vegetation present 1.4cm & Severe Aortic regurgitation, s/p Aortic valve replacement 03/02/25 Acute thrombocytopenia, r/o HIT on Arixtra Severe multifocal bilateral Bacterial Pneumonia SCAP score 20 Points, sputum culture positive for E coli and Klebsiella, treated -Bilateral Pleural Effusions POA -Acute Cystitis POA, treated -Normocytic anemia -Acute on chronic CKD stage IIIb -Fidelina esophagitis identified on EGD done 01/11/2025 -Bacterial endocarditis affecting the aortic valve (1.81x1.17 cm mass attached to the noncoronary cusp leaflet) identified on DRAKE done 01/11/2025 -Left atrial appendage thrombus identified on DRAKE done 01/11/2025 -Elevated troponin (type II [place]) -thrombocytosis on admission, now with thrombocytopenia -Liver cirrhosis MELD Score 22 Points ( 19.6 % Estimated 3 month Mortality) -cholelithiasis -Esophagitis by EGD 01/11/2025 -CAD s/p PCI with IA Integrilin, aspiration thrombectomy, PTCA, and KISHORE placement (Promus 4.0x16 mm) in the proximal LAD done on 12/19/2015 -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 Patient is awake alert and oriented x3 hemodynamically stable and afebrile. Chest tube has been removed. No major overnight events. He denies any chest pain palpitation shortness for breath. Occasional midsternal pain with movement. H&H stable 04/23.2 with a platelet count of 103k. Chemistries frontal improving creatinine 1.5 GFR of 59 chloride of 100 BUN 22 magnesium corrected per protocol on repeat .90. We will continue follow CV surgeon protocol per REVIEW OF SYSTEMS: General: No malaise or fever. Neurological: No fainting episodes or seizures. HEENT: No nasal congestion or nasal secretion. Respiratory: No cough, shortness of breath, or wheezing Cardiac: No chest pain or palpitations. Gastrointestinal: No vomiting or diarrhea. Genitourinary: No dysuria hematuria. Skin: No rashes or lesions. Hematological: No bruises or bleeding. Musculoskeletal: +Bilateral extremity swelling Psychiatric: No depression or panic attacks. PHYSICAL EXAM: GENERAL: alert, weak, awake oriented x 3, respiratory distress on room air saturating 97%. HEENT: EOMI, Sclera non icteric, moist mucosa NECK: Supple, no JVD, trachea midline LUNGS: Clear breath sounds bilaterally. No wheezes. Chest tube HEART: Regular rate and rhythm. Normal S1 and S2, without murmurs ABD: Obese Abdomen soft, nontender. Bowel sounds present EXT: No clubbing cyanosis 2+ bilateral lower extremity edema NEURO: Alert and oriented to person, follows commands Vital Signs (last 8hr) Date Time Temp Pulse Resp B/P (MAP) Pulse Ox O2 Delivery O2 Flow Rate FiO2 03/08/25 07:03 81 18 03/08/25 07:02 18 N/A Room Air 21 03/08/25 07:00 97.7 79 17 114/81 100 Room Air 03/08/25 03:40 98.6 79 18 114/67 96 Room Air LABS: Hematology Labs: Test 03/08/25 05:00 Range/Units White Blood Count 9.2 4.8-10.8 K/uL Red Blood Count 2.87 L 4.50-6.20 MIL/uL Hemoglobin 8.5 L 14.0-18.0 g/dL Hematocrit 25.2 L 42-54 % Mean Corpuscular Volume 87.8 79-99 fL Mean Corpuscular Hemoglobin 29.6 27.0-33.0 pg Mean Corpuscular Hemoglobin Concent 33.7 32.0-36.0 g/dL Red Cell Distribution Width 14.7 11.0-15.5 % Platelet Count 103 L 130-400 K/uL Mean Platelet Volume 11.3 H 7.5-10.5 fL Immature Granulocyte % (Auto) 0.3 0-1 % Neutrophils (%) (Auto) 67.5 40.0-77.0 % Lymphocytes (%) (Auto) 19.7 L 21.0-51.0 % Monocytes (%) (Auto) 7.8 3.0-13.0 % Eosinophils (%) (Auto) 4.0 0.0-8.0 % Basophils (%) (Auto) 0.7 0.0-5.0 % Neutrophils # (Auto) 6.2 1.8-7.7 K/uL Lymphocytes # (Auto) 1.8 1.0-4.8 K/uL Monocytes # (Auto) 0.7 0.1-1.0 K/uL Eosinophils # (Auto) 0.37 0.00-0.70 K/uL Basophils # (Auto) 0.06 0.00-0.20 K/uL Absolute Immature Granulocyte (auto 0.03 0-1 K/uL Nucleated Red Blood Cells 0.0 0.0-0.19 % Chemistry Labs: Test 03/08/25 05:00 03/07/25 03:50 03/06/25 13:39 Range/Units Sodium Level 137 136-145 mmol/L Potassium Level 3.8 3.5-5.1 mmol/L Chloride Level 100 L 101-111 mmol/L Carbon Dioxide Level 25 21-32 mmol/L Blood Urea Nitrogen 22 H 7-18 mg/dL Creatinine 1.5 H 0.5-1.3 mg/dL Glomerular Filtration Rate Calc 59 >90 mL/min Random Glucose 130 H 70-105 mg/dL Total Calcium 8.4 L 8.5-10.1 mg/dL Total Bilirubin 0.4 0.2-1.0 mg/dL Aspartate Amino Transf (AST/SGOT) 12 10-37 U/L Alanine Aminotransferase (ALT/SGPT) < 6 L 12-78 U/L Alkaline Phosphatase 88 50-136 U/L Total Protein 5.8 L 6.0-8.3 g/dL Albumin 2.1 L 3.5-5.0 g/dL Magnesium Level 1.60 L 1.80-2.40 mg/dL Iron Level 140 # 65-175 mcg/dL Total Iron Binding Capacity 135 L 250-450 mcg/dL Percent Iron Saturation 103.7 H 30-44 % DIAGNOSTICS / RADIOLOGY RESULTS: [ ] PLAN Will DC lovenox given suspected HIT Arixtra, SCD and Ambulation for DVT ppx Continue diuretics with IV lasix per CTS Keep legs elevated while sitting, may use anabella hoses Monitor urine output, chest tube output IV antibiotics per ID Wean off oxygen as tolerated OOB to chair Continue PT DC planning per primary Downgrade to PCCU NEURO: Minimize central acting medications as possible. Fall Precautions. Well lighted room through the day and minimize interruptions through the night to prevent acute delirium. PULMONARY: Supplemental 02 as needed Titrate Fio2 to keep Spo2 > or = 90% DuoNebs and CPT as needed IS hourly while awake for pulmonary hygiene Out of bed to chair as tolerated CARDIOVASCULAR: Follow hemodynamics. Titrate vasopressor to keep MAP >65 or systolic blood pressure >95mmHg LINES: [ ]PIV GI & NUTRITION: Continue nutritional support Aspirations precautions Prokinetic agents and laxatives as needed KIDNEYS & ELECTROLYTES: Strict monitoring of intake and output Daily weights Avoid nephrotoxic agents Monitor electrolytes and replace as needed Goal urine output of 30mL/hr or 0.5mL/kg/hr Urine output: [ ] Fluid Balance: [ ] ENDOCRINE: Maintain blood glucose between 100-180 at all times. Insulin sliding scale for blood glucose management INFECTIOUS DISEASE: Trend temperature. Mccormack-culture if febrile. Micro: [ ] Antibiotics: [ ] HEMATOLOGY & COAGULATION: Monitor H&H. Keep Hgb > 7 Transfuse 1 unit of PRBC for Hgb < 7 Transfuse 1 pack of platelets of platelets < 20, 000 Watch for any signs and symptoms of bleeding SKIN: Pressure ulcer prevention per facility protocol Rehab: PT/OT Prophylaxis: GI: [ ] Protonix DVT: Heparin Code Status: Full Resuscitation Disposition: May downgrade to PCCU Other: Total patient care time exceeds 52 minutes excluding all procedures. Case was discussed and seen with my supervising physician. The above plan was formulated and agreed upon. JO DAVID [facility] Mar 08, 2025 08:12
--- NOTE | 2025-03-08 08:25 | PN ---
SUBJECTIVE: The patient is status post minimally invasive aortic valve replacement for infectious endocarditis. The patient has been doing well from a cardiac standpoint. He is being treated for supposed HIT with Arixtra. He is receiving IV antibiotics. OBJECTIVE: GENERAL: The patient is sitting up in a bedside chair, no apparent distress. HEENT: Reveals normocephalic, atraumatic. Extraocular movements intact. He is off of oxygen. HEART: S1, S2 with a snap per second heart sound. ABDOMEN: Reveals mild obesity with positive bowel sounds. EXTREMITIES: He has an upper extremity PICC line for antibiotics. ASSESSMENT AND PLAN: * Status post minimally invasive aortic valve replacement. Continue aspirin and metoprolol. Ambulate the patient in the halls. * History of infectious endocarditis of the aortic valve. The patient will need 6 weeks of antibiotics. Since he is on Zyvox and p.o. doxycycline, he might be okay on p.o. Zyvox if he can get that as an outpatient. From a cardiovascular standpoint, the patient is stable and ready to go home. His antibiotics can be arranged as an outpatient and Hematology feels he is also stable from a HIT standpoint. * Possible heparin-induced thrombocytopenia. Hematology is following the patient. He is on Arixtra. TID: [id number] RECEIPT: [id number]
--- NOTE | 2025-03-08 08:35 | HMCIMG ---
CHEST 1VW HISTORY: Consistent heart failure COMPARISON: 03/07/2025 FINDINGS: A frontal projection of the chest was obtained. Mild bilateral pulmonary infiltrates are seen may be related to mild pulmonary vascular congestion with possible superimposed pneumonitis. Poststernotomy changes are seen. The heart is enlarged. Degenerative changes of the thoracolumbar spine are present. No evidence of aortic calcification is seen. IMPRESSION: 1. Mild bilateral pulmonary infiltrates are seen may be related to mild pulmonary vascular congestion with possible superimposed pneumonitis.
[2025-03-08 09:13] LABS: FREE KAPPA LIGHT CHAINS,S 78.1 mg/L (3.3-19.4)
[2025-03-08] MEDS: furoSEMIDE 40 MG TABLET PO SCH (10:09)
--- NOTE | 2025-03-08 11:39 | PN ---
[facility] CARDIOLOGY PROGRESS NOTE Date Patient Seen: Mar 08, 2025 Time of Visit: 11:38 Interval History: [s/p AVR 03/02 Physical Examination: GENERAL: [No acute distress.] HEAD: [Normal with no signs of head trauma.] EYES: [PERRLA, EOMI, conjunctiva and sclera normal.] ENT: [Hearing grossly intact, normal oropharynx.] NECK: [Supple without JVD. There is no tenderness, lymphadenopathy, or masses. No thyromegaly. Normal carotid upstrokes without bruits.] LUNGS: [Clear breath sounds bilaterally. There are right basilar rales one third of the way up the chest. No wheezes, or rhonchi.] HEART: [Normal rate and rhythm. ] VASC: [Peripheral pulses +2 bilaterally.] ABD: [Bowel sounds normal, soft, nontender, no masses, no organomegaly. No audible bruits.] NEURO: [Awake, alert, and oriented x3. No focal sensory or strength deficits noted.] Laboratory: [ ] Hematology Labs: Test 03/08/25 05:00 Range/Units White Blood Count 9.2 4.8-10.8 K/uL Red Blood Count 2.87 L 4.50-6.20 MIL/uL Hemoglobin 8.5 L 14.0-18.0 g/dL Hematocrit 25.2 L 42-54 % Mean Corpuscular Volume 87.8 79-99 fL Mean Corpuscular Hemoglobin 29.6 27.0-33.0 pg Mean Corpuscular Hemoglobin Concent 33.7 32.0-36.0 g/dL Red Cell Distribution Width 14.7 11.0-15.5 % Platelet Count 103 L 130-400 K/uL Mean Platelet Volume 11.3 H 7.5-10.5 fL Immature Granulocyte % (Auto) 0.3 0-1 % Neutrophils (%) (Auto) 67.5 40.0-77.0 % Lymphocytes (%) (Auto) 19.7 L 21.0-51.0 % Monocytes (%) (Auto) 7.8 3.0-13.0 % Eosinophils (%) (Auto) 4.0 0.0-8.0 % Basophils (%) (Auto) 0.7 0.0-5.0 % Neutrophils # (Auto) 6.2 1.8-7.7 K/uL Lymphocytes # (Auto) 1.8 1.0-4.8 K/uL Monocytes # (Auto) 0.7 0.1-1.0 K/uL Eosinophils # (Auto) 0.37 0.00-0.70 K/uL Basophils # (Auto) 0.06 0.00-0.20 K/uL Absolute Immature Granulocyte (auto 0.03 0-1 K/uL Nucleated Red Blood Cells 0.0 0.0-0.19 % Chemistry Labs: Test 03/08/25 05:00 03/06/25 13:39 Range/Units Sodium Level 137 136-145 mmol/L Potassium Level 3.8 3.5-5.1 mmol/L Chloride Level 100 L 101-111 mmol/L Carbon Dioxide Level 25 21-32 mmol/L Blood Urea Nitrogen 22 H 7-18 mg/dL Creatinine 1.5 H 0.5-1.3 mg/dL Glomerular Filtration Rate Calc 59 >90 mL/min Random Glucose 130 H 70-105 mg/dL Total Calcium 8.4 L 8.5-10.1 mg/dL Magnesium Level 1.90 1.80-2.40 mg/dL Total Bilirubin 0.4 0.2-1.0 mg/dL Aspartate Amino Transf (AST/SGOT) 12 10-37 U/L Alanine Aminotransferase (ALT/SGPT) < 6 L 12-78 U/L Alkaline Phosphatase 88 50-136 U/L Total Protein 5.8 L 6.0-8.3 g/dL Albumin 2.1 L 3.5-5.0 g/dL Iron Level 140 # 65-175 mcg/dL Total Iron Binding Capacity 135 L 250-450 mcg/dL Percent Iron Saturation 103.7 H 30-44 % Diagnostics / Radiology: [Copy/Paste Echos/Imaging Report here] Impression and Plan: [-severe AI, secondary to endocarditis -2D echo on 02/24, EF 60-65%, demonstrating with severe AI, 1.4 cm aortic leaflet vegetation -Acute on chronic diastolic heart failure -PNA -UTI -Normocytic anemia -Acute on chronic CKD stage IIIb, baseline creatinine of 2 -Fidelina esophagitis identified on EGD done 01/11/2025 -Bacterial endocarditis affecting the aortic valve (1.81x1.17 cm mass attached to the noncoronary cusp leaflet) identified on DRAKE done 01/11/2025 -Lactic acidosis, improving -Left atrial appendage thrombus identified on DRAKE done 01/11/2025, not currently an anticoagulation due to thrombocytopenia -Normal LV systolic function (LVEF: 60-65% by echo done 01/11/2025) -Elevated troponin (type II [place]), peaking in the 400s -History of ITP in 12/2024 -Liver cirrhosis -Esophagitis by EGD 01/11/2025 -CAD s/p PCI with IA Integrilin, aspiration thrombectomy, PTCA, and KISHORE placement (Promus 4.0x16 mm) in the proximal LAD done on 12/19/2015 -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 Troponins have been elevated in the 200-400 range. Normal [facility] s/p AVR 03/02 Patient is pending discharge. I will see him one week after discharge. Evans Hilario MD] EVANS HILARIO MD Mar 08, 2025 11:39
--- NOTE | 2025-03-08 12:45 | PN ---
54-year-old male with a complex medical history including recent hospitalization with a Gram-positive bacteremia secondary to Staph aureus, severe sepsis and endocarditis with echogenic vegetations on noncoronary cusps and right coronary cusp as well as left atrial appendage clot on January 11, 2025 presented to the ED days history of worsening shortness of breath. He was discharged on January 31, 2025 with long-term IV linezolid via PICC line for infective endocarditis. Patient actually was found to have endocarditis. With the patient in the obese acute aortic insufficiency status post surgery. Patient with bacteremia receiving antibiotic treatment. Patient with anemia and thrombocytopenia. It seems the patient is suspicious of having heparin-induced thrombocytopenia. Patient was started on Arixtra 2.5 mg subcu daily PHYSICAL EXAM GENERAL APPEARANCE ill appearing, alert NEUROLOGICAL: Cranial nerves II-XII grossly intact. Motor is 5/5 in bilateral upper and lower extremities proximal to distal. No sensory deficits. HEENT: Face is symmetric. Pupils are equal and reactive. Extraocular movements are intact. NECK: Supple. No JVD. No thyromegaly. No submental, submandibular, pre- /postauricular, occipital or supraclavicular lymphadenopathy. CHEST: Chest tube in place. LUNGS: Decreased air entry bilaterally CARDIOVASCULAR: Regular. S1 and S2 normal. No appreciable rubs, murmurs or gallops. Tachycardia present ABDOMEN: Soft, nontender, and nondistended. There is no rebound, voluntary guarding, or rigidity. : Deferred. No Ortega. SKIN: No skin breakdown. Assessment 1. Anemia 2. Thrombocytopenia. Platelet count improved. 3. Severe aortic valve insufficiency due to endocarditis s/p surgery 4. Possibility of heparin-induced thrombocytopenia 5. Gram-positive bacteremia 6. Cocaine abuse 7. Acute on chronic renal failure 8. Acute respiratory failure with the patient is improving. 9. Diabetes mellitus Plan 1. If this patient to stay in the hospital we will continue Arixtra. If the patient is going home and he will need anticoagulation we could do a use Pradaxa 150 mg p.o. twice daily for 1 month. But if the patient does not need any anticoagulation from the primary point of view then there is no need to be send on oral anticoagulation from my point of view. 2. There was hypersegmented neutrophils. This patient to Continue on folic acid 1 mg p.o. daily and vitamin B12 1000 mcg p.o. daily. 3. 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 We asked for SPEP, UPEP and free light chain. If there is monoclonal protein we will do a bone marrow biopsy. 4. Continue antibiotic treatment as per infectious disease specialist Vitals/Labs Vital Signs Date Time Temp Pulse Resp B/P (MAP) Pulse Ox O2 Delivery O2 Flow Rate FiO2 03/08/25 11:00 98.2 77 18 97/65 100 Room Air 03/08/25 08:55 0 N/A Laboratory Tests 03/08/25 05:00 Medications Current Medications Vancomycin HCl 1 each AD IV; Start 02/23/25 at 19:00; Stop 02/23/25 at 19:33; Status DC Piperacillin Sod/ Tazobactam Sod 3.375 gm ONCE ONCE IV Last administered on 02/23/25at 19:58; Start 02/23/25 at 19:00; Stop 02/23/25 at 19:01; Status DC Vancomycin HCl 500 ml @ 250 mls/hr ONCE ONCE IV; Start 02/23/25 at 19:30; Stop 02/23/25 at 19:34; Status DC Sodium Chloride 1,000 ml @ 0 mls/hr ONCE ONCE IV Last administered on 02/23/25at 19:58; Start 02/23/25 at 20:00; Stop 02/23/25 at 19:58; Status DC Sodium Chloride 500 ml @ 0 mls/hr ONCE ONCE IV; Start 02/23/25 at 20:00; Stop 02/23/25 at 20:01; Status DC Sodium Chloride 1,000 ml @ 75 mls/hr [id number] IV Last administered on 02/23/25at 20:08; Start 02/23/25 at 20:00; Stop 02/23/25 at 23:03; Status DC Furosemide 40 mg ONCE ONCE IV Last administered on 02/23/25at 20:10; Start 02/23/25 at 20:00; Stop 02/23/25 at 20:01; Status DC Piperacillin Sod/ Tazobactam Sod 3.375 gm Q8H IV Last administered on 03/05/25at 21:05; Start 02/24/25 at 05:00; Stop 03/06/25 at 04:59; Status DC Pharmacy Profile Note 1 each ONCE MISC; Start 02/23/25 at 23:00; Stop 02/23/25 at 23:48; Status DC Acetaminophen/ Hydrocodone Bitart 1 tab Q6H PRN PO Last administered on 02/28/25at 08:27; Start 02/23/25 at 23:00; Stop 02/28/25 at 22:59; Status DC Heparin Sodium (Porcine) 5,000 unit BID SQ Last administered on 03/01/25at 20:22; Start 02/24/25 at 09:00; Stop 03/02/25 at 14:57; Status DC Albuterol 1 UDVIAL [id number] IH Last administered on 02/24/25at 07:08; Start 02/24/25 at 00:00; Stop 02/24/25 at 14:15; Status DC Hydroxyzine HCl 25 mg ONCE ONCE PO Last administered on 02/24/25at 00:55; Start 02/24/25 at 00:30; Stop 02/24/25 at 00:39; Status DC Linezolid 300 ml @ 150 mls/hr ONCE ONCE IV Last administered on 02/24/25at 00:55; Start 02/24/25 at 01:00; Stop 02/24/25 at 02:59; Status DC Furosemide 40 mg Q12H IV Last administered on 02/24/25at 09:34; Start 02/24/25 at 08:30; Stop 02/24/25 at 10:20; Status DC Pharmacy Profile Note 1 each [place] [facility] [place]; Start 02/24/25 at 10:30; Stop 02/24/25 at 10:32; Status DC Doxycycline Hyclate 100 mg BID PO Last administered on 03/06/25at 07:59; Start 02/24/25 at 21:00; Stop 03/06/25 at 20:59; Status DC Furosemide 40 mg Q8H IV Last administered on 02/28/25at 08:26; Start 02/24/25 at 16:30; Stop 02/28/25 at 09:13; Status DC Dexmedetomidine/ Sodium Chloride 400 mcg PROTOCOL IV; Start 02/24/25 at 10:30; Stop 03/02/25 at 14:57; Status DC Ipratropium [place] 0.5 MG [id number] IH Last administered on 03/08/25at 07:00; Start 02/24/25 at 14:00; Stop 03/26/25 at 13:59 Budesonide 0.5 mg BIDRESP IH Last administered on 03/08/25 07:00; Start 02/24/25 at 18:00; Stop 03/26/25 at 17:59 Montelukast Sodium 10 mg DAILY PO Last administered on 03/08/25at 10:09; Start 02/25/25 at 09:00; Stop 03/27/25 at 08:59 Linezolid 300 ml @ 150 mls/hr Q12H IV Last administered on 03/05/25at 22:13; Start 02/24/25 at 11:00; Stop 03/06/25 at 10:59; Status DC Metolazone 5 mg DAILY PO Last administered on 03/01/25 14:49; Start 02/25/25 at 09:00; Stop 03/02/25 at 14:57; Status DC Folic Acid 1 mg DAILY PO Last administered on 02/25/25at 09:07; Start 02/25/25 at 09:00; Stop 02/26/25 at 07:40; Status DC Melatonin 10 mg HS PRN PO Last administered on 03/01/25 23:53; Start 02/24/25 at 11:00; Stop 03/02/25 at 14:57; Status DC Pantoprazole Sodium 40 mg DAILY IVP Last administered on 03/02/25 11:54; Start 02/24/25 at 11:00; Stop 03/02/25 at 14:57; Status DC Aspirin 81 mg DAILY PO Last administered on 03/08/25at 10:09; Start 02/25/25 at 09:00; Stop 03/27/25 at 08:59 Folic Acid 1 mg DAILY PO Last administered on 03/08/25 10:09; Start 02/25/25 at 09:00; Stop 03/27/25 at 08:59 Thiamine HCl 100 mg DAILY PO Last administered on 03/08/25 10:09; Start 02/25/25 at 09:00; Stop 03/27/25 at 08:59 Nystatin 5 ml QID PO Last administered on 03/08/25at 12:24; Start 02/24/25 at 17:00; Stop 03/26/25 at 16:59 Ondansetron HCl 4 mg Q6H PRN IVP Last administered on 03/02/25at 12:05; Start 02/24/25 at 21:00; Stop 03/02/25 at 14:57; Status DC Promethazine HCl 25 mg ONCE ONCE IM Last administered on 02/24/25at 21:11; Start 02/24/25 at 21:00; Stop 02/24/25 at 21:05; Status DC Alteplase, Recombinant 4 mg ONCE IVCATH Last administered on 02/25/25at 10:44; Start 02/25/25 at 09:30; Stop 02/25/25 at 11:00; Status DC Potassium Chloride 100 ml @ 100 mls/hr AD PRN IV Last administered on 02/27/25at 08:24; Start 02/25/25 at 11:00; Stop 02/27/25 at 10:47; Status DC Potassium Chloride 10 meq AD PRN PO; Start 02/25/25 at 11:00; Stop 03/02/25 at 14:57; Status DC Potassium Chloride 10 meq AD PRN PO; Start 02/25/25 at 11:00; Stop 02/27/25 at 10:48; Status DC Potassium Chloride 100 ml @ 100 mls/hr AD PRN IV Last administered on 03/02/25at 11:54; Start 02/25/25 at 11:00; Stop 03/02/25 at 14:57; Status DC Magnesium Sulfate 50 ml @ 0 mls/hr PROTOCOL PRN IV Last administered on 02/25/25at 11:27; Start 02/25/25 at 11:00; Stop 03/02/25 at 14:57; Status DC Pharmacy Profile Note 1 each AD MISC; Start 02/25/25 at 15:30; Stop 02/25/25 at 15:17; Status DC Pharmacy Profile Note 1 each ONCE MISC; Start 02/25/25 at 15:30; Stop 02/25/25 at 15:17; Status DC Acetaminophen/ Codeine Phosphate 10 ml Q4H PRN PO; Start 02/25/25 at 15:30; Stop 02/25/25 at 15:16; Status DC Potassium Chloride 40 meq ONCE ONCE PO Last administered on 02/25/25at 21:44; Start 02/25/25 at 22:00; Stop 02/25/25 at 22:01; Status DC Potassium Chloride 40 meq ONCE ONCE PO Last administered on 02/27/25at 05:53; Start 02/27/25 at 05:30; Stop 02/27/25 at 05:32; Status DC Potassium Chloride 10 meq AD PRN PO Last administered on 03/01/25at 05:39; Start 02/27/25 at 11:00; Stop 03/02/25 at 14:57; Status DC Potassium Chloride 20 meq DAILY PO Last administered on 03/01/25at 14:50; Start 03/01/25 at 09:00; Stop 03/02/25 at 14:57; Status DC Bumetanide 40 ml @ 0 mls/hr AD IV Last administered on 03/02/25at 06:01; Start 02/28/25 at 09:30; Stop 03/02/25 at 14:57; Status DC Acetaminophen/ Hydrocodone Bitart 1 tab Q6H PRN PO Last administered on 03/01/25at 23:53; Start 03/01/25 at 00:30; Stop 03/02/25 at 14:57; Status DC Heparin Sodium/ Sodium Chloride 1,000 ml @ As Directed STK-MED ONCE IV; Start 03/01/25 at 11:25; Stop 03/01/25 at 11:25; Status DC Lidocaine HCl 20 ml STK-MED ONCE .ROUTE; Start 03/01/25 at 11:26; Stop 03/01/25 at 11:27; Status DC Heparin Sodium (Porcine) 10,000 unit STK-MED ONCE .ROUTE; Start 03/01/25 at 11:27; Stop 03/01/25 at 11:27; Status DC Nitroglycerin 50 mg STK-MED ONCE .ROUTE; Start 03/01/25 at 11:27; Stop 03/01/25 at 11:27; Status DC Iohexol 35,000 mg STK-MED ONCE IV; Start 03/01/25 at 11:30; Stop 03/01/25 at 11:31; Status DC Verapamil HCl 5 mg STK-MED ONCE .ROUTE; Start 03/01/25 at 11:40; Stop 03/01/25 at 11:41; Status DC Fentanyl Citrate 100 mcg STK-MED ONCE .ROUTE; Start 03/01/25 at 12:02; Stop 03/01/25 at 12:02; Status DC Midazolam HCl 2 mg STK-MED ONCE .ROUTE; Start 03/01/25 at 12:02; Stop 03/01/25 at 12:02; Status DC Sodium Chloride 1,000 ml @ 150 mls/hr Q6H40M IV Last administered on 03/01/25at 14:50; Start 03/01/25 at 13:00; Stop 03/01/25 at 15:37; Status DC Dextrose 50 ml AD PRN IV; Start 03/01/25 at 13:00; Stop 03/02/25 at 15:25; Status DC Glucagon 1 mg AD PRN IM; Start 03/01/25 at 13:00; Stop 03/02/25 at 15:38; Status DC Cefazolin Sodium 2 gm ONCALL IVP; Start 03/01/25 at 23:00; Stop 03/02/25 at 15:20; Status DC Epinephrine HCl 10 mg/Sodium Chloride 250 ml @ 0 mls/hr AD PRN IV; Start 03/02/25 at 08:30; Stop 03/07/25 at 15:20; Status DC Norepinephrine Bitartrate 250 ml @ 0 mls/hr AD PRN IV; Start 03/02/25 at 08:30; Stop 03/07/25 at 15:20; Status DC Aminocaproic Acid 60159 mg/Sodium Chloride 480 ml @ 0 mls/hr AD PRN IV; Start 03/02/25 at 08:30; Stop 03/07/25 at 15:20; Status DC Sodium Chloride 1,000 ml @ As Directed STK-MED ONCE IV Last administered on 03/02/25at 12:44; Start 03/02/25 at 12:34; Stop 03/02/25 at 12:34; Status DC Sodium Chloride 1,000 ml @ 0 mls/hr Q0M IV; Start 03/02/25 at 13:00; Stop 04/01/25 at 12:59 Nitroglycerin/ Dextrose 1 ml @ As Directed STK-MED ONCE .ROUTE; Start 03/02/25 at 13:06; Stop 03/02/25 at 13:06; Status DC Sodium Bicarbonate 100 ml @ As Directed STK-MED ONCE .ROUTE; Start 03/02/25 at 13:26; Stop 03/02/25 at 13:26; Status DC Cefazolin Sodium 1 gm STK-MED ONCE .ROUTE; Start 03/02/25 at 13:39; Stop 03/02/25 at 13:39; Status DC Heparin Sodium/ Sodium Chloride 500 ml @ As Directed STK-MED ONCE IV; Start 03/02/25 at 13:39; Stop 03/02/25 at 13:40; Status DC Protamine Sulfate 250 mg STK-MED ONCE IV; Start 03/02/25 at 14:02; Stop 03/02/25 at 14:02; Status DC Lidocaine HCl 100 mg STK-MED ONCE .ROUTE; Start 03/02/25 at 14:02; Stop 03/02/25 at 14:02; Status DC Heparin Sodium (Porcine) 10,000 unit STK-MED ONCE .ROUTE; Start 03/02/25 at 14:02; Stop 03/02/25 at 14:02; Status DC Epinephrine HCl 1 mg STK-MED ONCE .ROUTE; Start 03/02/25 at 14:02; Stop 03/02/25 at 14:02; Status DC Sodium Bicarbonate 200 ml @ As Directed STK-MED ONCE .ROUTE; Start 03/02/25 at 14:02; Stop 03/02/25 at 14:02; Status DC Norepinephrine Bitartrate 4 mg STK-MED ONCE IV; Start 03/02/25 at 14:02; Stop 03/02/25 at 14:02; Status DC Propofol 200 mg STK-MED ONCE IV; Start 03/02/25 at 14:02; Stop 03/02/25 at 14:03; Status DC Fentanyl Citrate 1,000 mcg STK-MED ONCE IJ; Start 03/02/25 at 14:02; Stop 03/02/25 at 14:03; Status DC Midazolam HCl 2 mg STK-MED ONCE .ROUTE; Start 03/02/25 at 14:03; Stop 03/02/25 at 14:03; Status DC Rocuronium [place] 50 mg STK-MED ONCE .ROUTE; Start 03/02/25 at 14:03; Stop 03/02/25 at 14:03; Status DC Sodium Chloride 1,000 ml @ 10 mls/hr ONCE IV Last administered on 03/02/25at 15:00; Start 03/02/25 at 15:00; Stop 03/03/25 at 14:59; Status DC Sodium Chloride 10 ml Q8H PRN IVP; Start 03/02/25 at 15:00; Stop 04/01/25 at 14:59 Morphine Sulfate 0.5 mg Q2H PRN IV; Start 03/02/25 at 15:00; Stop 03/03/25 at 14:59; Status DC Morphine Sulfate 1 mg Q2H PRN IV; Start 03/02/25 at 15:00; Stop 03/03/25 at 14:59; Status DC Acetaminophen 650 mg Q4H PRN RC; Start 03/02/25 at 15:00; Stop 04/01/25 at 14:59 Ondansetron HCl 4 mg Q6H PRN IV Last administered on 03/05/25at 21:06; Start 03/02/25 at 15:00; Stop 04/01/25 at 14:59 Sodium Chloride 500 ml @ 0 mls/hr AD IV Last administered on 03/03/25at 01:32; Start 03/02/25 at 15:00; Stop 04/01/25 at 14:59 Nitroglycerin/ Dextrose 0 ml @ 0 mls/hr AD IV; Start 03/02/25 at 15:00; Stop 03/05/25 at 14:59; Status DC Propofol 100 ml @ 0 mls/hr AD PRN IV; Start 03/02/25 at 15:00; Stop 03/06/25 at 14:59; Status DC Norepinephrine Bitartrate 8 mg/ Dextrose 250 ml @ 0 mls/hr AD PRN IV; Start 03/02/25 at 15:00; Stop 03/02/25 at 15:16; Status DC Epinephrine HCl 10 mg/Sodium Chloride 250 ml @ 0 mls/hr AD PRN IV; Start 03/02/25 at 15:00; Stop 03/02/25 at 15:16; Status DC Aminocaproic Acid 85359 mg/Sodium Chloride 310 ml @ 25 mls/hr AD IV; Start 03/02/25 at 15:00; Stop 03/02/25 at 15:15; Status DC Calcium Gluconate 1 gm/Sodium Chloride 60 ml @ 0 mls/hr AD PRN IV Last administered on 03/03/25at 02:29; Start 03/02/25 at 15:00; Stop 04/01/25 at 14:59 Magnesium Sulfate 50 ml @ 12.5 mls/hr AD PRN IV Last administered on 03/08/25at 10:08; Start 03/02/25 at 15:00; Stop 04/01/25 at 14:59 Potassium Chloride 100 ml @ 100 mls/hr AD PRN IV Last administered on 03/06/25at 05:21; Start 03/02/25 at 15:00; Stop 04/01/25 at 14:59 Potassium Phosphate 250 ml @ 42 mls/hr AD PRN IV Last administered on 03/03/25at 09:48; Start 03/02/25 at 15:00; Stop 04/01/25 at 14:59 Albumin Human 250 ml @ 0 mls/hr AD PRN IV; Start 03/02/25 at 15:00 Acetaminophen 650 mg Q4H PRN PO; Start 03/02/25 at 15:00; Stop 04/01/25 at 14:59 Insulin Human Regular 100 unit/ Sodium Chloride 100 ml @ 0 mls/hr AD IV Last administered on 03/02/25at 19:17; Start 03/02/25 at 15:00; Stop 03/04/25 at 14:59; Status DC Cefazolin Sodium 2 gm Q8H IVPB Last administered on 03/03/25at 14:04; Start 03/02/25 at 20:00; Stop 03/03/25 at 12:01; Status DC Tramadol HCl 25 mg Q6H PRN PO; Start 03/02/25 at 15:00; Stop 03/02/25 at 15:33; Status DC Tramadol HCl 50 mg Q6H PRN PO; Start 03/02/25 at 15:00; Stop 03/02/25 at 15:39; Status DC Famotidine 20 mg DAILY IV Last administered on 03/05/25at 08:40; Start 03/03/25 at 09:00; Stop 03/06/25 at 07:40; Status DC Sodium Bicarbonate 50 meq AD PRN IV Last administered on 03/02/25at 22:09; Start 03/02/25 at 15:00; Stop 03/05/25 at 14:59; Status DC Dextrose 50 ml AD PRN IV; Start 03/02/25 at 15:00; Stop 04/01/25 at 14:59 Glucagon 1 mg AD PRN IM; Start 03/02/25 at 15:00; Stop 04/01/25 at 14:59 Amiodarone HCl 150 mg STK-MED ONCE .ROUTE; Start 03/02/25 at 15:11; Stop 03/02/25 at 15:12; Status DC Rocuronium [place] 50 mg STK-MED ONCE .ROUTE; Start 03/02/25 at 15:52; Stop 03/02/25 at 15:52; Status DC Factor IX (Pha) 1 mg STK-MED ONCE .ROUTE; Start 03/02/25 at 16:43; Stop 03/02/25 at 16:43; Status DC Factor IX (Pha) 1 mg STK-MED ONCE .ROUTE; Start 03/02/25 at 16:52; Stop 03/02/25 at 16:53; Status DC Desmopressin Acetate 40 mcg/ Sodium Chloride 50 ml @ 100 mls/hr AD STAT IJ; Start 03/02/25 at 17:44; Stop 03/02/25 at 18:13; Status DC Cefazolin Sodium 3 gm STK-MED ONCE IVPB Last administered on 03/02/25at 15:00; Start 03/02/25 at 15:00; Stop 03/02/25 at 19:27; Status DC Cefazolin Sodium 1 gm STK-MED ONCE IRRIG Last administered on 03/02/25at 15:15; Start 03/02/25 at 15:15; Stop 03/02/25 at 19:27; Status DC Albumin Human 500 ml @ 0 mls/hr AD IV Last administered on 03/03/25at 01:31; Start 03/03/25 at 01:30; Stop 03/03/25 at 08:52; Status DC Vasopressin 40 units/Sodium Chloride 40 ml @ 0 mls/hr PROTOCOL IV; Start 03/03/25 at 01:30; Stop 03/07/25 at 15:20; Status DC Sodium Chloride 500 ml @ 0 mls/hr Q0M IV; Start 03/03/25 at 01:30; Stop 03/03/25 at 08:52; Status DC Acetaminophen 1,000 mg Q6H6 IVPB; Start 03/03/25 at 03:30; Stop 03/03/25 at 04:00; Status DC Tramadol HCl 50 mg Q6H PRN PO Last administered on 03/07/25at 12:42; Start 03/03/25 at 03:30; Stop 03/08/25 at 03:29; Status DC Acetaminophen 1,000 mg Q6H IVPB Last administered on 03/03/25at 04:17; Start 03/03/25 at 04:00; Stop 03/03/25 at 08:44; Status DC Acetaminophen 1,000 mg Q6H6 IV Last administered on 03/04/25at 06:32; Start 03/03/25 at 09:00; Stop 03/04/25 at 08:59; Status DC Docusate Sodium 100 mg BID PO Last administered on 03/07/25at 20:53; Start 03/03/25 at 09:00; Stop 04/02/25 at 08:59 Lactulose 20 gm BID PRN PO; Start 03/03/25 at 09:00; Stop 04/02/25 at 08:59 Furosemide 20 mg Q12H PO; Start 03/04/25 at 09:00; Stop 03/03/25 at 08:54; Status DC Furosemide 20 mg Q12H IV; Start 03/03/25 at 09:00; Stop 03/03/25 at 08:54; Status DC Enoxaparin Sodium 30 mg DAILY SQ; Start 03/05/25 at 09:00; Stop 03/05/25 at 19:17; Status DC Metoprolol Tartrate 12.5 mg BID PO Last administered on 03/05/25at 08:41; Start 03/04/25 at 09:00; Stop 03/05/25 at 12:08; Status DC Magnesium Hydroxide 30 ml DAILY PRN PO; Start 03/03/25 at 09:00; Stop 04/02/25 at 08:59 Acetaminophen 650 mg Q6H PRN PO Last administered on 03/08/25at 10:14; Start 03/03/25 at 09:00; Stop 04/02/25 at 08:59 Furosemide 20 mg Q12H IV Last administered on 03/03/25at 20:10; Start 03/03/25 at 09:00; Stop 03/04/25 at 08:59; Status DC Furosemide 20 mg BID@,17 PO Last administered on 03/06/25at 07:59; Start 03/04/25 at 09:00; Stop 03/06/25 at 08:42; Status DC Cefazolin Sodium 2 gm STK-MED ONCE .ROUTE; Start 03/03/25 at 13:58; Stop 03/03/25 at 13:59; Status DC Metoprolol Tartrate 25 mg BID PO Last administered on 03/08/25at 10:09; Start 03/05/25 at 21:00; Stop 04/04/25 at 20:59 Metoprolol Tartrate 12.5 mg ONCE ONCE PO Last administered on 03/05/25at 13:34; Start 03/05/25 at 13:30; Stop 03/05/25 at 13:31; Status DC Fondaparinux 2.5 mg DAILY SQ; Start 03/06/25 at 09:00; Stop 03/06/25 at 09:05; Status DC Amlodipine Besylate 10 mg DAILY PO Last administered on 03/08/25at 10:09; Start 03/06/25 at 09:00; Stop 04/05/25 at 08:59 Hydralazine HCl 10 mg Q6H PRN IV; Start 03/06/25 at 09:00; Stop 04/05/25 at 08:59 Furosemide 30 mg Q12H IV Last administered on 03/07/25at 20:54; Start 03/06/25 at 09:00; Stop 03/07/25 at 21:01; Status DC Potassium Chloride 20 meq AD PRN PO Last administered on 03/08/25at 10:14; Start 03/06/25 at 09:00; Stop 04/05/25 at 08:59 Piperacillin Sod/ Tazobactam Sod 3.375 gm Q8H IVPB Last administered on 03/08/25at 12:24; Start 03/06/25 at 12:30; Stop 03/20/25 at 12:29 Pharmacy Profile Note 1 each ONCE MISC; Start 03/06/25 at 12:30; Stop 03/06/25 at 12:17; Status DC Linezolid 300 ml @ 150 mls/hr Q12H IV Last administered on 03/08/25at 12:24; Start 03/06/25 at 12:30; Stop 03/16/25 at 12:29 Fondaparinux 2.5 mg ONCE ONCE SQ Last administered on 03/06/25at 15:12; Start 03/06/25 at 14:30; Stop 03/06/25 at 14:31; Status DC Fondaparinux 2.5 mg DAILY SQ Last administered on 03/08/25at 10:10; Start 03/07/25 at 09:00; Stop 04/06/25 at 08:59 Albumin Human 50 ml @ As Directed STK-MED ONCE IV; Start 02/23/25 at 14:10; Stop 03/07/25 at 14:12; Status DC Aminocaproic Acid 5,000 mg STK-MED ONCE IV; Start 02/23/25 at 14:10; Stop 03/07/25 at 14:12; Status DC Calcium Chloride 1,000 mg STK-MED ONCE IVP; Start 02/23/25 at 14:10; Stop 03/07/25 at 14:12; Status DC Heparin Sodium (Porcine) 10,000 unit STK-MED ONCE IV; Start 02/23/25 at 14:10; Stop 03/07/25 at 14:12; Status DC Lidocaine HCl 5 mg STK-MED ONCE IVP; Start 02/23/25 at 14:10; Stop 03/07/25 at 14:12; Status DC Magnesium Sulfate 1 gm STK-MED ONCE IM; Start 02/23/25 at 14:10; Stop 03/07/25 at 14:12; Status DC Mannitol 12.5 gm STK-MED ONCE IV; Start 02/23/25 at 14:10; Stop 03/07/25 at 14:12; Status DC Phenylephrine HCl 10 mg STK-MED ONCE IV; Start 02/23/25 at 14:10; Stop 03/07/25 at 14:12; Status DC Sodium Bicarbonate 50 meq STK-MED ONCE IVP; Start 02/23/25 at 14:10; Stop 03/07/25 at 14:12; Status DC Furosemide 40 mg DAILY PO Last administered on 03/08/25at 10:09; Start 03/08/25 at 09:00; Stop 04/07/25 at 08:59 LEOPOLDO AGUILAR MD Mar 08, 2025 12:45
--- NOTE | 2025-03-08 14:27 | NUR ---
[facility] Consult: Patient assessed by wound healing team. See wound assessment. Assessment and recommendations provided to primary nurse. Education provided. Addendum: 03/09/25 at 1655 by ELSY GARCIA RN RN/ Amended: Links added.
--- NOTE | 2025-03-08 16:17 | PN ---
INFECTIOUS DISEASE PROGRESS NOTE Date of Service: Mar 08, 2025 SUBJECTIVE: This is a 44-year-old male patient who was seen and examined at bedside in room 203. Patient is awake, alert and oriented x3. Patient is status post bioprosthetic aortic valve replacement on 03/02/2025. Patient will needs Linezolid x 4 weeks. Case management to assist. Prescription was written. PHYSICAL EXAM EYES: Anicteric. Pupils equal and reactive. HENT: No oral thrush seen, moist Oral mucosa. NECK: Supple, no JVD or thyromegaly. LUNGS: Lung sounds clear. CHEST: Surgical incision to his mid chest with dressing in place. CARDIOVASCULAR: S1, S2 regular. No murmur heard. Chest tube discontinued today. ABDOMEN: Soft, non tender, bowel sounds present, no organomegaly. CENTRAL NERVOUS SYSTEM: Awake, alert, oriented x 3. SKIN: No rashes, no swelling. Lower extremity edema. LYMPHATICS: No peripheral lymphadenopathy. MUSCULOSKELETAL: No joint swelling, erythema or tenderness. EXTREMITIES: No cyanosis or clubbing. Lower extremities edema, improving. BACK: No deformity, no pressure ulcer. GENITOURINARY: No dysuria or hematuria. Vital Sign (Last 12 Hours) 03/08/25 03/08/25 03/08/25 03/08/25 07:00 07:02 07:03 08:55 Temp 97.7 Pulse 79 81 Resp 17 18 18 B/P (MAP) 114/81 Pulse Ox 100 98 O2 Delivery Room Air N/A Room Air Room Air* Aerosol Mask+ O2 Flow Rate 0 FiO2 21 N/A 03/08/25 11:00 Temp 98.2 Pulse 77 Resp 18 B/P (MAP) 97/65 Pulse Ox 100 O2 Delivery Room Air Intake & Output (last 24hrs)0 03/07/25 03/07/25 03/08/25 15:00 23:00 07:00 Intake Total 400.0 ml 50.0 ml 350.0 ml Balance 400.0 ml 50.0 ml 350.0 ml LABS: Laboratory: Test 03/08/25 05:00 Range/Units White Blood Count 9.2 4.8-10.8 K/uL Red Blood Count 2.87 L 4.50-6.20 MIL/uL Hemoglobin 8.5 L 14.0-18.0 g/dL Hematocrit 25.2 L 42-54 % Mean Corpuscular Volume 87.8 79-99 fL Mean Corpuscular Hemoglobin 29.6 27.0-33.0 pg Mean Corpuscular Hemoglobin Concent 33.7 32.0-36.0 g/dL Red Cell Distribution Width 14.7 11.0-15.5 % Platelet Count 103 L 130-400 K/uL Mean Platelet Volume 11.3 H 7.5-10.5 fL Immature Granulocyte % (Auto) 0.3 0-1 % Neutrophils (%) (Auto) 67.5 40.0-77.0 % Lymphocytes (%) (Auto) 19.7 L 21.0-51.0 % Monocytes (%) (Auto) 7.8 3.0-13.0 % Eosinophils (%) (Auto) 4.0 0.0-8.0 % Basophils (%) (Auto) 0.7 0.0-5.0 % Neutrophils # (Auto) 6.2 1.8-7.7 K/uL Lymphocytes # (Auto) 1.8 1.0-4.8 K/uL Monocytes # (Auto) 0.7 0.1-1.0 K/uL Eosinophils # (Auto) 0.37 0.00-0.70 K/uL Basophils # (Auto) 0.06 0.00-0.20 K/uL Absolute Immature Granulocyte (auto 0.03 0-1 K/uL Nucleated Red Blood Cells 0.0 0.0-0.19 % Sodium Level 137 136-145 mmol/L Potassium Level 3.8 3.5-5.1 mmol/L Chloride Level 100 L 101-111 mmol/L Carbon Dioxide Level 25 21-32 mmol/L Blood Urea Nitrogen 22 H 7-18 mg/dL Creatinine 1.5 H 0.5-1.3 mg/dL Glomerular Filtration Rate Calc 59 >90 mL/min Random Glucose 130 H 70-105 mg/dL Total Calcium 8.4 L 8.5-10.1 mg/dL Magnesium Level 1.90 1.80-2.40 mg/dL Total Bilirubin 0.4 0.2-1.0 mg/dL Aspartate Amino Transf (AST/SGOT) 12 10-37 U/L Alanine Aminotransferase (ALT/SGPT) < 6 L 12-78 U/L Alkaline Phosphatase 88 50-136 U/L Total Protein 5.8 L 6.0-8.3 g/dL Albumin 2.1 L 3.5-5.0 g/dL ASSESSMENT: Gram-positive Bacteremia. Aortic valve Endocarditis with aortic insufficiency, s/p aortic valve replacement on 03/02/2025. Bacterial Pneumonia. Leukocytosis, resolved. Acute on chronic diastolic heart failure. Acute on chronic renal failure, improving. Morbid obesity. Hypoxic respiratory failure, resolved. Anemia requiring blood transfusion. Hypokalemia. PLAN: Continue linezolid IV. Patient needs the linezolid PO x 4 weeks on discharge. Continue doxycycline. Continue pain management. Avoid nephrotoxic medications. This case was reviewed and discussed with my supervising physician and the above assessment and plan was formulated and agreed upon. ATTESTATION BY PHYSICIAN I have seen and examined the patient. I reviewed the documentation, medical decision making, and treatment plan as noted by the mid-level provider above. I agree with the findings and plan of care. JANUARY CARLSON MD, [facility] Mar 08, 2025 16:17
--- NOTE | 2025-03-08 16:36 | PN ---
[facility] PROGRESS NOTE Date of Service: Mar 08, 2025 Time of Service: 16:30 SUBJECTIVE: [ HPI : 54-year-old male with a complex medical history including recent hospitalization with a Gram-positive bacteremia secondary to Staph aureus, severe sepsis and endocarditis with echogenic vegetations on noncoronary cusps and right coronary cusp as well as left atrial appendage clot on January 11, 2025 presented to the ED days history of worsening shortness of breath. He was discharged on January 31, 2025 with long-term IV linezolid via PICC line for infective endocarditis. Since 3 days he reports progressive dyspnea, worsened acutely today. He denies chest pain but notes fatigue and exertional intolerance. There is no reported fever or chills. He was in mild respiratory distress on arrival. Notably has a past medical history of Fidelina esophagitis, uncontrolled diabetes mellitus type 2 BRENDAN, immune thrombocytopenic purpura, UTI Klebsiella and substance abuse with cocaine alcohol and tobacco. So on physical examination he is positive for shortness of breaths and cough no hemoptysis. His lungs have expiratory wheezes and diffuse crackling bilaterally. He is tachycardic with regular rhythm. His WBC count is at 18, hemoglobin at 10.5 and platelet count at 470 K with leukocytosis chronic anemia and thrombocytosis, chemistry is with creatinine showing 2.2, BUN at and CO2 at 18.2 magnesium low consistent with BRENDAN, electrolyte derangements. His arterial blood gas analysis reveals a pH of 7.469, PaCO2 of 26, PO2 of 54.6, HC03 of 18.2 and saturation of 90.2 Representing acute hypoxic respiratory failure with respiratory alkalosis. Serum lactate is elevated at 3.6 persistent lactic acidosis. BNP is at 2410 suggesting cardiac strain or volume overload. And troponin is elevated at [address] segment elevated ID. and urine analysis positive concerning for UTI and nephropathy due to positive hyaline casts. Chest x-ray reveals diffuse bilateral opacities consistent with pneumonia and chest CT scan reveals bilateral pleural effusion bilateral ground-glass pulmonary infiltrates are seen renal ultrasound reveals no hydronephrosis. And a CT scan also revealed gallstone. Echo is ordered to assess vegetations, LA clot and EF. Lower extremity Doppler revealed no DVT, Matthews's cyst versus hematoma in the left knee. EGD from prior history Fidelina esophagitis. The patient is admitted to ICU with the critical Care and Cardiology and Infectious Disease consult has been placed for further management currently on Precedex drip and CPAP setting with tidal volume of 657 and a rate of 36 and PIP of15 and ve of 23.2. Furosemide 40 q.12h is added in addition to his antibiotics monitoring the patient closely and discuss the goal of care with the patient and he agreed upon with it. 02/25/2025. Patient seen and examined along with RN. Feels better , breathing has improved. Continues to be on IV Lasix and metolazone was added. Cardiology and critical Care on board CT surgery was consulted for severe aortic regurgitation.] 02/26/25 review hat sizer's note in detail. CT surgery was consulted regarding to his severe AI. Patient continues with diuretics in IV antibiotics. No fevers denies chest pain. 02/27/25 44-year-old male with a complex medical history including infective endocard itis, severe aortic insufficiency, CHF, BRENDAN, diabetic nephropathy, bilateral pneumonia, and recent gram-negative sepsis, is clinically improving. The patient reports that shortness of breath has been improving slowly over the past 48 hours. He currently denies chest pain, fever, or chills. He is tolerating medications and oral intake well. He remains on low-flow oxygen at 1L via nasal cannula, saturating well at 98%, ambulating to the chair with mild fatigue but no acute respiratory distress. No complaints of palpitations or dizziness. He is aware of the upcoming left heart catheterization and understands the indication for aortic valve replacement surgery. No family was present during bedside examination WBC: 11.7 (? from 13.2) improving leukocytosis February 28 2025 44-year-old male with severe apache aortic valve insufficiency, bacterial endocarditis, and worsening pulmonary congestion, was upgraded to PCCU today due to clinical and radiographic deterioration. He remains dyspneic and hypoxic despite low-flow oxygen support. He reports difficulty breathing, especially in the supine position, and has been unable to tolerate lying flat due to severe orthopnea. He feels increasingly fatigued, lightheaded, and weak. Denies chest pain, fevers, chills, or palpitations. He is aware of his pending left heart catheterization and the need for aortic valve replacement surgery and verbalizes continued understanding and consent March 01 2025 The patient was examined at bedside this morning. He remains alert and oriented, and in no acute distress while sitting up. He reports increased shortness of breath when lying back or attempting to sleep supine, consistent with severe orthopnea, though otherwise states that he is feeling okay. He is NPO for the planned left heart catheterization scheduled for today as part of the workup for severe apache aortic insufficiency with large vegetation and worsening decompensated heart failure. He has no new complaints of chest pain, fever, chills, nausea, or dizziness. He verbalizes understanding of the planned cardiac intervention and its associated risks, including contrast use, bleeding, arrhythmia, and need for surgical valve replacement afterward. March 02 2025 The patient was evaluated at bedside this morning. He was found sitting upright, hemodynamically stable, alert, and oriented. He reports no acute complaints at this time, denies chest pain, palpitations, nausea, or dizziness. He remains on 2L O? via nasal cannula, comfortable at rest, and is awaiting surgical intervention today for severe aortic valve regurgitation. The patient underwent left and right heart catheterization yesterday which revea led normal coronary anatomy with mild non-obstructive CAD. Cardiology has cleared the patient for surgical aortic valve repair. He has been informed of the risks and benefits of the procedure and has provided informed consent. His oxygen saturation and hemodynamics remain stable. He denies orthopnea today. 03/03/25 The patient was examined at bedside this morning, currently Post-Operative Day 1 following successful aortic valve replacement for apache valve endocarditis. He is sitting upright in bed, alert and oriented, and reports that he is doing okay overall. He denies shortness of breath or chest discomfort but reports moderate incisional pain, well controlled with PRN Tylenol and tramadol. He reports mild fatigue but no nausea, dizziness, palpitations, or changes in vision. He is tolerating clear liquids. He has been out of bed to chair. No major overnight events noted. 03/04/25 Patient is evaluated at bedside this morning on postoperative day2 following bioprosthetic AV valve replacement for apache valve infective endocarditis with severe regurgitation. He appears clinically improved. He denies chest pain, shortness of breath, dizziness, nausea, vomiting or other acute complaints. He reports mild fatigue and incisional pain, which is well controlled with acetaminophen p.r.n.. He is now breathing comfortably on room air, requiring no supplemental O2 and weaned off all vasopressors and inotropes. Appetite has improved. No complaints of orthopnea or PND. He continues to void adequately, although noted to have some postop anemia and mild thrombocytopenia. He is aware of ongoing recovery and upcoming transfusion today for symptomatic anemia. He has pain sitting up in the recliner. 03/05/25 patient seen and examined. Care discussed with the. Cardiology consulted Hematology for anticoagulation management He presented with severe symptomatic aortic valve insufficiency in the setting of bacterial endocarditis. He is status post bioprosthetic aortic valve replacement 03/02/2025. Continue aspirin 81 mg once daily. 03/06/25 Patient was examined at bedside this morning. He is currently off supplemental O2, breathing comfortably on room air with SpO2 of 98%, and hemodynamically stable. He is sitting upright in a recliner, awake, alert, oriented and reports feeling better overall. He denies chest pain, shortness of breath at rest, or dizziness. He notes mild bilateral leg swelling, but denies any pain, erythema or tenderness. He is ambulating with assistance, tolerating oral intake, and urinating spontaneously. His central line was removed and PICC line remains in place. Chest tube remains with a with decreased output today of 160 mL. He has not required vasopressors or inotropes, and respiratory parameters are stable. He is he understands that he has been downgraded from ICU to PCCU as a part of recovery plan. Awaiting Hematology recommendations for anti coagulation. 03/07/25 Patient was examined at bedside this morning and reports he is feeling much better overall. His hemodynamically stable, breathing on room air, and ambulating with assistance through cardiac rehabilitation. He denies chest pain, palpitations, shortness of breath, nausea, vomiting, dizziness or syncope. His chest tube drainage decreased to 120 mL and both chest tubes and temporary pacing wires are scheduled to be removed today. He requires 6 weeks of IV antibiotic therapy via PICC line. And currently on linezolid doxycycline and Zosyn. The patient's acute kidney injury is improving from creatinine improved to 1.6 down from 2.1 yesterday. He is tolerating his current antihypertensive regimen. His thrombocytopenia has resolved with platelet counts improving to 133 K, and he is now on fondaparinux 2.5 mg as Q daily per hematology guidance for anticoagulation, avoid heparin products. 03/08/25 The patient was evaluated at bedside this morning. He states he is doing good and continues to breathe comfortably on room air. He denies shortness of breath, dizziness, nausea, or chest pain but notes mild incisional chest discomfort, described as soreness or pressure, likely post-sternotomy musculoskeletal pain. He has been ambulating and participating in cardiac rehab with minimal support. He has no fevers or chills, is tolerating oral intake, and understands the plan for discharge. He has been weaned off all IV drips and oxygen. Urine output remains stable. Patient is aware that long-term oral antibiotic therapy is needed and that the transplant case manager is helping arrange prescriptions given financial barriers. Cardiology, ID, and Hematology have cleared him for discharge from their respective standpoints. Antibiotic choice finalized as Linezolid 600 mg PO BID 4 weeks per ID. REVIEW OF SYSTEMS CONSTITUTIONAL: Positive for fatigue, mild subjective fever. NEUROLOGICAL: Denies headache, amaurosis fugax, motor weakness, sensory deficit, vertigo/spinning sensation, gait abnormalities, or tremors. ENT: No hearing loss, otalgia, otorrhea, rhinitis, rhinorrhea, hoarseness, or sore throat. CARDIOVASCULAR: Palpitations, no angina. PULMONARY: Shortness of breath, cough, no hemoptysis. SLEEP: Denies morning headaches, daytime somnolence or napping. Denies difficulty falling asleep, staying asleep, waking from sleep. Denies knowledge of snoring. GASTROINTESTINAL: Denies any type of dysphagia to either liquids or solids. Denies nausea, vomiting, pyrosis, early satiety, abdominal pain, diarrhea, constipation, or changes in stool consistency or caliber. Denies coffee-ground emesis, hematemesis, hematochezia, or melanotic stools. GENITOURINARY: Denies frequency, urgency, nocturia, hematuria or incontinence (Storage/Irritative symptoms.) Low urinary stream, straining to void, urinary intermittency or hesitancy, splitting of the voiding stream, terminal dribbling. ENDOCRINOLOGIC: Denies polyuria, polydipsia, polyphagia or heat/cold intolerances. HEMATOLOGIC: Denies thrombophilia/previous clots, or coagulopathy/bleeding disorders. ONCOLOGIC: Denies personal history of malignancy. DERMATOLOGIC: Denies rashes or pruritus. PSYCHIATRIC: Denies any suicidal or homicidal ideation. Denies hallucinations. PHYSICAL EXAM GENERAL APPEARANCE ill appearing, alert, mildly agitated, in moderate respiratory distress. NEUROLOGICAL: Cranial nerves II-XII grossly intact. Motor is 5/5 in bilateral upper and lower extremities proximal to distal. No sensory deficits. HEENT: Face is symmetric. Pupils are equal and reactive. Extraocular movements are intact. NECK: Supple. No JVD. No thyromegaly. No submental, submandibular, pre- /postauricular, occipital or supraclavicular lymphadenopathy. CHEST: Normal chest expansion. No Telemetry. LUNGS: Expiratory wheeze and diffuse crackles bilaterally CARDIOVASCULAR: Regular. S1 and S2 normal. No appreciable rubs, murmurs or gallops. Tachycardia present ABDOMEN: Soft, nontender, and nondistended. There is no rebound, voluntary guarding, or rigidity. : Deferred. No Ortega. EXTREMITIES: Bilateral 2+ pitting edema, left knee warm swollen, limited ROM and pitting edema more on the left compared to right. SKIN: No skin breakdown. Vital Signs (last 8hr) Date Time Temp Pulse Resp B/P (MAP) Pulse Ox O2 Delivery O2 Flow Rate FiO2 03/08/25 11:00 98.2 77 18 97/65 100 Room Air 03/08/25 08:55 98 Room Air* 0 N/A Aerosol Mask+ LABS: Laboratory: Test 03/08/25 05:00 Range/Units White Blood Count 9.2 4.8-10.8 K/uL Red Blood Count 2.87 L 4.50-6.20 MIL/uL Hemoglobin 8.5 L 14.0-18.0 g/dL Hematocrit 25.2 L 42-54 % Mean Corpuscular Volume 87.8 79-99 fL Mean Corpuscular Hemoglobin 29.6 27.0-33.0 pg Mean Corpuscular Hemoglobin Concent 33.7 32.0-36.0 g/dL Red Cell Distribution Width 14.7 11.0-15.5 % Platelet Count 103 L 130-400 K/uL Mean Platelet Volume 11.3 H 7.5-10.5 fL Immature Granulocyte % (Auto) 0.3 0-1 % Neutrophils (%) (Auto) 67.5 40.0-77.0 % Lymphocytes (%) (Auto) 19.7 L 21.0-51.0 % Monocytes (%) (Auto) 7.8 3.0-13.0 % Eosinophils (%) (Auto) 4.0 0.0-8.0 % Basophils (%) (Auto) 0.7 0.0-5.0 % Neutrophils # (Auto) 6.2 1.8-7.7 K/uL Lymphocytes # (Auto) 1.8 1.0-4.8 K/uL Monocytes # (Auto) 0.7 0.1-1.0 K/uL Eosinophils # (Auto) 0.37 0.00-0.70 K/uL Basophils # (Auto) 0.06 0.00-0.20 K/uL Absolute Immature Granulocyte (auto 0.03 0-1 K/uL Nucleated Red Blood Cells 0.0 0.0-0.19 % Sodium Level 137 136-145 mmol/L Potassium Level 3.8 3.5-5.1 mmol/L Chloride Level 100 L 101-111 mmol/L Carbon Dioxide Level 25 21-32 mmol/L Blood Urea Nitrogen 22 H 7-18 mg/dL Creatinine 1.5 H 0.5-1.3 mg/dL Glomerular Filtration Rate Calc 59 >90 mL/min Random Glucose 130 H 70-105 mg/dL Total Calcium 8.4 L 8.5-10.1 mg/dL Magnesium Level 1.90 1.80-2.40 mg/dL Total Bilirubin 0.4 0.2-1.0 mg/dL Aspartate Amino Transf (AST/SGOT) 12 10-37 U/L Alanine Aminotransferase (ALT/SGPT) < 6 L 12-78 U/L Alkaline Phosphatase 88 50-136 U/L Total Protein 5.8 L 6.0-8.3 g/dL Albumin 2.1 L 3.5-5.0 g/dL Current Medications Medications (Trade) Dose Ordered Sig/Asya Route PRN Reason Start Time Stop Time Status Last Admin Dose Admin Acetaminophen (TYLenol 325MG TAB) 650 mg Q4H PRN PO Temp >38.3C(AFTER EXTUBATION) 03/02/25 15:00 04/01/25 14:59 Acetaminophen (TYLenol 325MG TAB) 650 mg Q6H PRN PO MILD PAIN (1-3) 03/03/25 09:00 04/02/25 08:59 03/08/25 10:14 650 MG Acetaminophen (TYLenol 650MG SUPPOSITORY) 650 mg Q4H PRN RC Temp >38.3C WHILE INTUBATED 03/02/25 15:00 04/01/25 14:59 Acetaminophen (acetaMINOPHEN) 1,000 mg Q6H IVPB 03/03/25 04:00 03/03/25 08:44 DC 03/03/25 04:17 1,000 MG Acetaminophen (acetaMINOPHEN) 1,000 mg Q6H6 IV 03/03/25 09:00 03/04/25 08:59 DC 03/04/25 06:32 1,000 MG Acetaminophen (acetaMINOPHEN) 1,000 mg Q6H6 IVPB 03/03/25 03:30 03/03/25 04:00 DC Acetaminophen/ Codeine Phosphate (TYLenol-coDEINE (120/12MG 5ML) ELIXIR) 10 ml Q4H PRN PO MODERATE PAIN (4-6) 02/25/25 15:30 02/25/25 15:16 DC Acetaminophen/ Hydrocodone Bitart (NORco 5/325MG) 1 tab Q6H PRN PO MODERATE PAIN (4-6) 02/23/25 23:00 02/28/25 22:59 DC 02/28/25 08:27 1 TAB Acetaminophen/ Hydrocodone Bitart (NORco 5/325MG) 1 tab Q6H PRN PO MODERATE PAIN (4-6) 03/01/25 00:30 03/02/25 14:57 DC 03/01/25 23:53 1 TAB Albumin Human 250 ml @ 0 mls/hr AD PRN IV IF HEMODYNAMICALLY UNSTABLE 03/02/25 15:00 Albumin Human 500 ml @ 0 mls/hr AD IV 03/03/25 01:30 03/03/25 08:52 DC 03/03/25 01:31 250 MLS/HR Albuterol (DUOneb) 1 UDVIAL T5HOHGD IH 02/24/25 00:00 02/24/25 14:15 DC 02/24/25 07:08 1 UDVIAL Alteplase, Recombinant (CathFLO 2MG VIAL) 4 mg ONCE IVCATH 02/25/25 09:30 02/25/25 11:00 DC 02/25/25 10:44 4 MG Aminocaproic Acid 48285 mg/Sodium Chloride 310 ml @ 25 mls/hr AD IV 03/02/25 15:00 03/02/25 15:15 DC Aminocaproic Acid 18480 mg/Sodium Chloride 480 ml @ 0 mls/hr AD PRN IV BLEEDING CONTROL 03/02/25 08:30 03/07/25 15:20 DC Amlodipine Besylate (NorvASC 5MG TAB) 10 mg DAILY PO 03/06/25 09:00 04/05/25 08:59 03/08/25 10:09 10 MG Aspirin (Aspirin 81mg Ec Tab) 81 mg DAILY PO 02/25/25 09:00 03/27/25 08:59 03/08/25 10:09 81 MG Budesonide (Pulmicort 0.5 Mg/2ml) 0.5 mg BIDRESP IH 02/24/25 18:00 03/26/25 17:59 03/08/25 07:00 0.5 MG Bumetanide 40 ml @ 0 mls/hr AD IV 02/28/25 09:30 03/02/25 14:57 DC 03/02/25 06:01 1 MLS/HR Calcium Gluconate 1 gm/Sodium Chloride 60 ml @ 0 mls/hr AD PRN IV HYPOCALCEMIA 03/02/25 15:00 04/01/25 14:59 03/03/25 02:29 100 MLS/HR Cefazolin Sodium (Ancef) 2 gm ONCALL IVP 03/01/25 23:00 03/02/25 15:20 DC Cefazolin Sodium (Ancef) 2 gm Q8H IVPB 03/02/25 20:00 03/03/25 12:01 DC 03/03/25 14:04 2 GM Desmopressin Acetate 40 mcg/ Sodium Chloride 50 ml @ 100 mls/hr AD STAT IJ 03/02/25 17:44 03/02/25 18:13 DC Dexmedetomidine/ Sodium Chloride (PRECEdex 400MCG/ 100ML-NS) 400 mcg PROTOCOL IV 02/24/25 10:30 03/02/25 14:57 DC Dextrose (D50w) 50 ml AD PRN IV HYPOGLYCEMIA PROTOCOL 03/01/25 13:00 03/02/25 15:25 DC Dextrose (D50w) 50 ml AD PRN IV HYPOGLYCEMIA PROTOCOL 03/02/25 15:00 04/01/25 14:59 Docusate Sodium (COLace 100MG CAP) 100 mg BID PO 03/03/25 09:00 04/02/25 08:59 03/07/25 20:53 100 MG Doxycycline Hyclate (Doxycycline Hyclate) 100 mg BID PO 02/24/25 21:00 03/06/25 20:59 DC 03/06/25 07:59 100 MG Enoxaparin Sodium (Lovenox) 30 mg DAILY SQ 03/05/25 09:00 03/05/25 19:17 DC Epinephrine HCl 10 mg/Sodium Chloride 250 ml @ 0 mls/hr AD PRN IV TITRATE 03/02/25 08:30 03/07/25 15:20 DC Epinephrine HCl 10 mg/Sodium Chloride 250 ml @ 0 mls/hr AD PRN IV POST-OP CARDIOVASCULAR ORDERS 03/02/25 15:00 03/02/25 15:16 DC Famotidine (Pepcid 20mg Vial) 20 mg DAILY IV 03/03/25 09:00 03/06/25 07:40 DC 03/05/25 08:40 20 MG Folic Acid (FOLic ACID 1 MG TABLET) 1 mg DAILY PO 02/25/25 09:00 02/26/25 07:40 DC 02/25/25 09:07 1 MG Folic Acid (FOLic ACID 1 MG TABLET) 1 mg DAILY PO 02/25/25 09:00 03/27/25 08:59 03/08/25 10:09 1 MG Fondaparinux (Arixtra) 2.5 mg DAILY SQ 03/06/25 09:00 03/06/25 09:05 DC Fondaparinux (Arixtra) 2.5 mg DAILY SQ 03/07/25 09:00 04/06/25 08:59 03/08/25 10:10 2.5 MG Furosemide (LASix 20MG TAB) 20 mg BID@09,17 PO 03/04/25 09:00 03/06/25 08:42 DC 03/06/25 07:59 20 MG Furosemide (LASix 20MG TAB) 20 mg Q12H PO 03/04/25 09:00 03/03/25 08:54 DC Furosemide (LASix 20MG VIAL) 20 mg Q12H IV 03/03/25 09:00 03/03/25 08:54 DC Furosemide (LASix 20MG VIAL) 20 mg Q12H IV 03/03/25 09:00 03/04/25 08:59 DC 03/03/25 20:10 20 MG Furosemide (LASix 40MG TAB) 40 mg DAILY PO 03/08/25 09:00 04/07/25 08:59 03/08/25 10:09 40 MG Furosemide (LASix 40MG VIAL) 30 mg Q12H IV 03/06/25 09:00 03/07/25 21:01 DC 03/07/25 20:54 30 MG Furosemide (LASix 40MG VIAL) 40 mg Q12H IV 02/24/25 08:30 02/24/25 10:20 DC 02/24/25 09:34 40 MG Furosemide (LASix 40MG VIAL) 40 mg Q8H IV 02/24/25 16:30 02/28/25 09:13 DC 02/28/25 08:26 40 MG Glucagon (Glucagon 1mg Kit) 1 mg AD PRN IM HYPOGLYCEMIA PROTOCOL 03/01/25 13:00 03/02/25 15:38 DC Glucagon (Glucagon 1mg Kit) 1 mg AD PRN IM HYPOGLYCEMIA PROTOCOL 03/02/25 15:00 04/01/25 14:59 Heparin Sodium (Porcine) (HEParin 5,000 UNIT VIAL) 5,000 unit BID SQ 02/24/25 09:00 03/02/25 14:57 DC 03/01/25 20:22 5,000 UNIT Hydralazine HCl (APRESOLine 20MG INJ) 10 mg Q6H PRN IV ADMINISTER FOR SBP > 160 03/06/25 09:00 04/05/25 08:59 Insulin Human Regular 100 unit/ Sodium Chloride 100 ml @ 0 mls/hr AD IV 03/02/25 15:00 03/04/25 14:59 DC 03/02/25 19:17 4 MLS/HR Ipratropium [place] (AtrovENT UD) 0.5 MG [id number] IH 02/24/25 14:00 03/26/25 13:59 03/08/25 07:00 0.5 MG Lactulose (Constulose 20gm/ 30ml Udcup) 20 gm BID PRN PO CONSTIPATION 03/03/25 09:00 04/02/25 08:59 Linezolid 300 ml @ 150 mls/hr Q12H IV 02/24/25 11:00 03/06/25 10:59 DC 03/05/25 22:13 150 MLS/HR Linezolid 300 ml @ 150 mls/hr Q12H IV 03/06/25 12:30 03/16/25 12:29 03/08/25 12:24 150 MLS/HR Magnesium Hydroxide (Milk Of Magnesium 30ml) 30 ml DAILY PRN PO CONSTIPATION 03/03/25 09:00 04/02/25 08:59 Magnesium Sulfate 50 ml @ 12.5 mls/hr AD PRN IV MAG LEVEL LESS THAN 2.0 03/02/25 15:00 04/01/25 14:59 03/08/25 10:08 12.5 MLS/HR Magnesium Sulfate 50 ml @ 0 mls/hr PROTOCOL PRN IV low magnesium 02/25/25 11:00 03/02/25 14:57 DC 02/25/25 11:27 25 MLS/HR Melatonin (Melatonin) 10 mg HS PRN PO INSOMNIA 02/24/25 11:00 03/02/25 14:57 DC 03/01/25 23:53 10 MG Metolazone (zarOXOlyn) 5 mg DAILY PO 02/25/25 09:00 03/02/25 14:57 DC 03/01/25 14:49 5 MG Metoprolol Tartrate (loprESSOR) 12.5 mg BID PO 03/04/25 09:00 03/05/25 12:08 DC 03/05/25 08:41 12.5 MG Metoprolol Tartrate (loprESSOR) 25 mg BID PO 03/05/25 21:00 04/04/25 20:59 03/08/25 10:09 25 MG Montelukast Sodium (SinguLAIR) 10 mg DAILY PO 02/25/25 09:00 03/27/25 08:59 03/08/25 10:09 10 MG Morphine Sulfate (morPHINE 2MG SYG) 0.5 mg Q2H PRN IV MODERATE PAIN (4-6) 03/02/25 15:00 03/03/25 14:59 DC Morphine Sulfate (morPHINE 2MG SYG) 1 mg Q2H PRN IV SEVERE PAIN (7-10) 03/02/25 15:00 03/03/25 14:59 DC Nitroglycerin/ Dextrose 0 ml @ 0 mls/hr AD IV 03/02/25 15:00 03/05/25 14:59 DC Norepinephrine Bitartrate 250 ml @ 0 mls/hr AD PRN IV TITRATE 03/02/25 08:30 03/07/25 15:20 DC Norepinephrine Bitartrate 8 mg/ Dextrose 250 ml @ 0 mls/hr AD PRN IV POST-OP CARDIOVASCULAR ORDERS 03/02/25 15:00 03/02/25 15:16 DC Nystatin (NYSTatin 496974 UNIT/ML 5ML UDCUP) 5 ml QID PO 02/24/25 17:00 03/26/25 16:59 03/08/25 12:24 5 ML Ondansetron HCl (zoFRAN 4MG INJ) 4 mg Q6H PRN IV NAUSEA/VOMITING 03/02/25 15:00 04/01/25 14:59 03/05/25 21:06 4 MG Ondansetron HCl (zoFRAN 4MG INJ) 4 mg Q6H PRN IVP NAUSEA/VOMITING 02/24/25 21:00 03/02/25 14:57 DC 03/02/25 12:05 4 MG Pantoprazole Sodium (PROTonix 40MG INJ) 40 mg DAILY IVP 02/24/25 11:00 03/02/25 14:57 DC 03/02/25 11:54 40 MG Pharmacy Profile Note (Lace Assessment) 1 each AD MISC 02/24/25 10:30 02/24/25 10:32 DC Pharmacy Profile Note (Lace Assessment) 1 each AD MISC 02/25/25 15:30 02/25/25 15:17 DC Pharmacy Profile Note (Pharmacy Communication) 1 each ONCE MISC 02/23/25 23:00 02/23/25 23:48 DC Pharmacy Profile Note (Pharmacy Communication) 1 each ONCE MISC 02/25/25 15:30 02/25/25 15:17 DC Pharmacy Profile Note (Pharmacy Communication) 1 each ONCE MISC 03/06/25 12:30 03/06/25 12:17 DC Piperacillin Sod/ Tazobactam Sod (Zosyn 3.375gm+NS 50ml) 3.375 gm Q8H IV 02/24/25 05:00 03/06/25 04:59 DC 03/05/25 21:05 3.375 GM Piperacillin Sod/ Tazobactam Sod (Zosyn 3.375gm+NS 50ml) 3.375 gm Q8H IVPB 03/06/25 12:30 03/20/25 12:29 03/08/25 12:24 3.375 GM Potassium Phosphate 250 ml @ 42 mls/hr AD PRN IV LOW PHOS LEVEL 03/02/25 15:00 04/01/25 14:59 03/03/25 09:48 42 MLS/HR Potassium Chloride 100 ml @ 100 mls/hr AD PRN IV POTASSIUM PROTOCOL 02/25/25 11:00 02/27/25 10:47 DC 02/27/25 08:24 100 MLS/HR Potassium Chloride 100 ml @ 100 mls/hr AD PRN IV POTASSIUM PROTOCOL 02/25/25 11:00 03/02/25 14:57 DC 03/02/25 11:54 100 MLS/HR Potassium Chloride 100 ml @ 100 mls/hr AD PRN IV HYPOKALEMIA 03/02/25 15:00 04/01/25 14:59 03/06/25 05:21 100 MLS/HR Potassium Chloride (K-Dur 10meq Sr Tab) 10 meq AD PRN PO POTASSIUM PROTOCOL 02/27/25 11:00 03/02/25 14:57 DC 03/01/25 05:39 10 MEQ Potassium Chloride (K-Dur/Klor-Con 20meq) 10 meq AD PRN PO POTASSIUM PROTOCOL 02/25/25 11:00 02/27/25 10:48 DC Potassium Chloride (K-Dur/Klor-Con 20meq) 20 meq AD PRN PO POTASSIUM PROTOCOL 03/06/25 09:00 04/05/25 08:59 03/08/25 10:14 20 MEQ Potassium Chloride (K-Dur/Klor-Con 20meq) 20 meq DAILY PO 03/01/25 09:00 03/02/25 14:57 DC 03/01/25 14:50 20 MEQ Potassium Chloride (KCl 10% Elixir 20meq/15ml) 10 meq AD PRN PO POTASSIUM PROTOCOL 02/25/25 11:00 03/02/25 14:57 DC Propofol 100 ml @ 0 mls/hr AD PRN IV SEDATION 03/02/25 15:00 03/06/25 14:59 DC Sodium Bicarbonate (Sodium Bicarb 50meq 50ml Vial) 50 meq AD PRN IV OTHER[SEE DOSING INSTRUCTIONS] 03/02/25 15:00 03/05/25 14:59 DC 03/02/25 22:09 50 MEQ Sodium Chloride 500 ml @ 0 mls/hr AD IV 03/02/25 15:00 04/01/25 14:59 03/03/25 01:32 500 MLS/HR Sodium Chloride 500 ml @ 0 mls/hr Q0M IV 03/03/25 01:30 03/03/25 08:52 DC Sodium Chloride 1,000 ml @ 0 mls/hr Q0M IV 03/02/25 13:00 04/01/25 12:59 Sodium Chloride 1,000 ml @ 10 mls/hr ONCE IV 03/02/25 15:00 03/03/25 14:59 DC 03/02/25 15:00 10 MLS/HR Sodium Chloride 1,000 ml @ 75 mls/hr [id number] IV 02/23/25 20:00 02/23/25 23:03 DC 02/23/25 20:08 75 MLS/HR Sodium Chloride 1,000 ml @ 150 mls/hr [id number] IV 03/01/25 13:00 03/01/25 15:37 DC 03/01/25 14:50 150 MLS/HR Sodium Chloride (NS Flush 10ml) 10 ml Q8H PRN IVP IV LINE FLUSH 03/02/25 15:00 04/01/25 14:59 Thiamine HCl (Vitamin B-1) 100 mg DAILY PO 02/25/25 09:00 03/27/25 08:59 03/08/25 10:09 100 MG Tramadol HCl (UltRAM) 25 mg Q6H PRN PO MODERATE PAIN (4-6) 03/02/25 15:00 03/02/25 15:33 DC Tramadol HCl (UltRAM) 50 mg Q6H PRN PO SEVERE PAIN (7-10) 03/02/25 15:00 03/02/25 15:39 DC Tramadol HCl (UltRAM) 50 mg Q6H PRN PO MODERATE PAIN (4-6) 03/03/25 03:30 03/08/25 03:29 DC 03/07/25 12:42 50 MG Vancomycin HCl (Vancomycin Protocol) 1 each AD IV 02/23/25 19:00 02/23/25 19:33 DC Vasopressin 40 units/Sodium Chloride 40 ml @ 0 mls/hr PROTOCOL IV 03/03/25 01:30 03/07/25 15:20 DC DIAGNOSTICS / RADIOLOGY: [ PATIENT: ADAM MOE III MR#: [id number] : 1980 SEX: M AGE: 44 LOCATION: 2AH ORDER 2300 STATUS: ADM IN REPORT#: [id number] SERVICE 0600 REASON: Congestive heart failure ORDERING PHYSICIAN: ARMANDO OTT MD PROCEDURE: CXR1VW - CHEST 1VW CHEST 1VW HISTORY: Consistent heart failure COMPARISON: 03/07/2025 FINDINGS: A frontal projection of the chest was obtained. Mild bilateral pulmonary infiltrates are seen may be related to mild pulmonary vascular congestion with possible superimposed pneumonitis. Poststernotomy changes are seen. The heart is enlarged. Degenerative changes of the thoracolumbar spine are present. No evidence of aortic calcification is seen. IMPRESSION: 1. Mild bilateral pulmonary infiltrates are seen may be related to mild pulmonary vascular congestion with possible superimposed pneumonitis. DICTATED BY: CAROL HOWARD MD DATE: 03/08/25831 ELECTRONICALLY SIGNED BY: CAROL HOWARD MD DATE: 03/08/25834 ] ASSESSMENT: gram positive bacteremia POA Sepsis, POA Pneumonia, POA Acute hypoxic respiratory failure on CPAP, ABG confirms PO2 less than 60 mmHg, POA Acute on chronic diastolic heart failure with exacerbation POA Acute kidney injury stage II, POA Non ST segment elevated ID, most likely type 2 ID secondary to oxygen ischemic POA ITP, POA Uncontrolled diabetes mellitus type 2, POA Diabetic nephropathy, POA Cocaine, alcohol and tobacco use disorder, POA Fidelina esophagitis, POA Matthews's cyst, hematoma, left knee, POA Electrolyte abnormalities, POA Chronic anemia, POA 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 coli, Klebsiella) pathogens, on Zosyn, Linezolid, Doxycycline Bilateral multifocal pneumonia with superimposed pulmonary edema, improving clinically, likely secondary to endocarditis and fluid overload Acute on chronic kidney injury, Hypokalemia Volume overload secondary to congestive heart failure and valvular disease, on diuresis Chronic normocytic anemia, New-onset diabetes mellitus type 2, poorly controlled, monitor glucose closely Electrolyte imbalance hyponatremia, hypokalemia, hypomagnesemia, on repletion protocol Proteinuria with diabetic nephropathy PLAN: WBC: 9.2 normal Hgb/Hct: 8.5 / 25.2 stable, no active bleeding Platelets: 103K (? from 113K) stable post-op thrombocytopenia Na/K/Cl: 136 / 3.5 / 99 mild hypochloremia BUN/Cr: 22 / 1.5 BRENDAN resolving LFTs: WNL CXR: Mild bilateral pulmonary infiltrates; likely pulmonary vascular congestion with superimposed pneumonitis, improved from prior Mild metabolic alkalosis likely due to diuretics and volume shift. Bioprosthetic valve function awaiting baseline postop echo. Continue metoprolol tartrate 12.5 mg b.i.d., continue [id number] mg p.o. daily Continue amlodipine5 mg daily. To remove his chest tube and temporary pacing wires today. Continue ambulation plus cardiac rehabilitation. Continue furosemide 20 mg IV q.12h for volume management. Infectious disease: * Repeat blood cultures if febrile or WBC rises ID on board * Continue Linezolid 600 mg PO BID 4 weeks * Arrange outpatient follow-up with ID * Monitor CBC weekly for Linezolid-induced cytopenia Pulmonary: Critical Care consult has been placed. Supplemental oxygen support, CPAP support and BiPAP setting as necessary to maintain SpO2 levels greater than 92 Budesonide, albuterol ipratropium nebulizations. Monitor ABGs, O2 sats, chest x-ray. Appreciate Pulmonary and critical Care consult suggestions. * Maintain O? via nasal cannula at 1L/min * Wean off as tolerated * Daily chest physiotherapy; monitor ABG Cardiovascular: * Continue Metoprolol tartrate 12.5 mg BID, Aspirin 81 mg daily * Continue Amlodipine 5 mg PO daily * Continue cardiac rehab and outpatient cardiology follow-up * TTE post-op baseline available or to be done outpatient Monitor UOP P, daily weights. Continue Lasix 20 mg IV q.12h Continue telemetry monitoring Monitor for post-op arrhythmia, tamponade, ischemia Daily CXR Close hemodynamic monitoring with fire support man troponin, BNP. Continue telemetry monitoring * Monitor troponins and BNP; follow-up Echo post-op Renal/metabolic Monitor CR, BUN, GFR. Avoid nephrotoxins. Monitor glucose, proteinuria. Replete potassium, magnesium, phosphorus. for per facility protocol. * Strict I/Os, daily BMP * Replace K?, Mg? per protocol * Hold nephrotoxic meds PRN GI/nutrition Pantoprazole IV daily. Monitor for GI bleeding. Add thiamine, folate multivitamins if chronic alcohol use. 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 Ortho referral if worsening. Sedation/neuro: Precedex for sedation, taper as tolerated. Determine at bedtime for sleep hygiene. ICU delirium prevention with 3 orientation, mobility and lytes during the day. Endocrine: Glucose control with insulin. Monitor for ketones and TKA signs. Consider A1c when stable. Substance use: Assess for withdrawal. CIMS protocol p.r.n. if needed. Offered smoking cessation and substance abuse counseling. Discharge Planning: * Discharge today to home * Prescriptions for: * Linezolid 600 mg PO BID 4 weeks * Fondaparinux 2.5 mg SQ daily * Aspirin, Metoprolol, Amlodipine, Pantoprazole, Acetaminophen * Social work/transplant case manager assisting with Linezolid cost * Outpatient follow-ups: * Cardiology * Infectious Disease * Primary Care * Hematology (HIT monitoring) Case management consult has been placed for further discharge planning. ATTESTATION BY PHYSICIAN I have seen and examined the patient. I reviewed the documentation, medical decision making, and treatment plan as noted by the resident above. I agree with the findings and plan of care. Benoit Martinez MD, RAGHAVA R MD Mar 08, 2025 16:36
[2025-03-08 17:11] LABS: GLYCOPROTEIN IV ANTIBODY Negative (Negative); HLA CLASS 1 ANTIBODY Negative (Negative); IIb/IIIa PLATELET ANTIBODY Negative (Negative)
[2025-03-08] MEDS: ketOROlac 15MG/ML VIAL (15MG/ML) IV ONE (18:01)
[2025-03-08] MEDS: BALSAM PERU/CASTOR OIL 60 GM TUBE TP SCH (20:17)
[2025-03-08] MEDS: HYDROcodone/APAP 5/325 1 TAB TABLET PO ONE (21:02)
[2025-03-09] VITALS (12 sets, daily range): BP systolic 111–137; BP diastolic 66–88; PULSE 71–90; RESP 16–18; TEMP 97.5–98.4; O2SAT 97–99
[2025-03-09 03:58] LABS: BASOPHILS # (AUTO) 0.06 K/uL (0.00-0.20); BASOPHILS % (AUTO) 0.7 % (0.0-5.0); EOSINOPHILS # (AUTO) 0.47 K/uL (0.00-0.70); EOSINOPHILS % (AUTO) 5.6 % (0.0-8.0); HEMATOCRIT 22.5 % (42-54); IMMATURE GRANULOCYTE ABSOLUTE 0.02 K/uL (0-1); LYMPHOCYTES # (AUTO) 2.1 K/uL (1.0-4.8); LYMPHOCYTES % (AUTO) 24.6 % (21.0-51.0); MEAN CORPUSCULAR HEMOGLOBIN 29.4 pg (27.0-33.0); MEAN CORPUSCULAR HGB CONC 32.9 g/dL (32.0-36.0); MEAN CORPUSCULAR VOLUME 89.3 fL (79-99); MONOCYTES # (AUTO) 0.9 K/uL (0.1-1.0); MONOCYTES % (AUTO) 10.5 % (3.0-13.0); NEUTROPHILS # (AUTO) 4.9 K/uL (1.8-7.7); NEUTROPHILS % (AUTO) 58.4 % (40.0-77.0); PLATELET COUNT (AUTO) 117 K/uL (130-400); RED BLOOD CELL COUNT(AUTO) 2.52 MIL/uL (4.50-6.20); RED CELL DISTRIBUTION WIDTH 14.6 % (11.0-15.5); WHITE BLOOD COUNT (AUTO) 8.5 K/uL (4.8-10.8)
[2025-03-09 04:16] LABS: POTASSIUM 3.8 mmol/L (3.5-5.1); SODIUM SERUM 137 mmol/L (136-145)
[2025-03-09 04:17] LABS: ALBUMIN 2.1 g/dL (3.5-5.0); ASPARTATE AMINOTRANSFERASE 12 U/L (10-37); BILIRUBIN,TOTAL 0.4 mg/dL (0.2-1.0); CARBON DIOXIDE 26 mmol/L (21-32); CHLORIDE 102 mmol/L (101-111); CREATININE 1.4 mg/dL (0.5-1.3); GLOMERULAR FILTR. RATE CALC 64 mL/min (>90); GLUCOSE,RANDOM 129 mg/dL (70-105); TOTAL PROTEIN, SERUM 5.8 g/dL (6.0-8.3); UREA NITROGEN, BLOOD 16 mg/dL (7-18)
[2025-03-09 04:24] LABS: ALANINE AMINOTRANSFERASE < 6 U/L (12-78)
[2025-03-09 09:13] LABS: ALBUMIN (IFE & ELECTROPHOR) 2.5 g/dL (2.9-4.4); ALBUMIN/GLOBULIN RATIO (IFE) 0.9 (0.7-1.7); ALPHA-1 (IFE & PEP) 0.4 g/dL (0.0-0.4); ALPHA-2 (IFE & PEP) 0.7 g/dL (0.4-1.0); BETA (IFE & ELP) 0.8 g/dL (0.7-1.3); GLOBULIN TOTAL (IFE) 2.9 g/dL (2.2-3.9); IGA (IFE) 411 mg/dL (90-386); IGG (IMMUNOFIXATION) 1056 mg/dL (603-1613); IGM (IMMUNOFIXATION) 27 mg/dL (20-172); IMMUNOFIXATION RESULT Note: (.); M-SPIKE (IEP) Not Observed g/dL (Not Observed); TOTAL PROTEIN 5.4 g/dL (6.0-8.5)
--- NOTE | 2025-03-09 12:46 | HMCIMG ---
CHEST 1VW HISTORY: Congestive heart failure COMPARISON: 03/08/2025 FINDINGS: A frontal projection of the chest was obtained. There are bilateral pulmonary infiltrates suggestive of pulmonary vascular congestion with possible superimposed pneumonitis. Poststernotomy changes are seen. The heart is enlarged. Degenerative changes of the thoracolumbar spine are present. Degenerative changes are seen. No evidence of aortic calcification is seen. IMPRESSION: 1. Bilateral pulmonary infiltrates are seen suggestive of pulmonary vascular congestion with possible superimposed pneumonitis. No interval change is seen.
[2025-03-09] MEDS: ibuPROFEN 200 MG TAB PO ONE (13:41)
--- NOTE | 2025-03-09 13:55 | PN ---
54-year-old male with a complex medical history including recent hospitalization with a Gram-positive bacteremia secondary to Staph aureus, severe sepsis and endocarditis with echogenic vegetations on noncoronary cusps and right coronary cusp as well as left atrial appendage clot on January 11, 2025 presented to the ED days history of worsening shortness of breath. He was discharged on January 31, 2025 with long-term IV linezolid via PICC line for infective endocarditis. Patient actually was found to have endocarditis. With the patient in the obese acute aortic insufficiency status post surgery. Patient with bacteremia receiving antibiotic treatment. Patient with anemia and thrombocytopenia. It seems the patient is suspicious of having heparin-induced thrombocytopenia. Patient was started on Arixtra 2.5 mg subcu daily. Platelet count improved. Platelet count today is 117K. There is no obvious bleeding. Patient actually moving around and there is plan may be to discharge him then he could receive antibiotic treatment as outpatient PHYSICAL EXAM GENERAL APPEARANCE ill appearing, alert NEUROLOGICAL: Cranial nerves II-XII grossly intact. Motor is 5/5 in bilateral upper and lower extremities proximal to distal. No sensory deficits. HEENT: Face is symmetric. Pupils are equal and reactive. Extraocular movements are intact. NECK: Supple. No JVD. No thyromegaly. No submental, submandibular, pre- /postauricular, occipital or supraclavicular lymphadenopathy. CHEST: Chest tube in place. LUNGS: Decreased air entry bilaterally CARDIOVASCULAR: Regular. S1 and S2 normal. No appreciable rubs, murmurs or gallops. Tachycardia present ABDOMEN: Soft, nontender, and nondistended. There is no rebound, voluntary guarding, or rigidity. : Deferred. No Ortega. SKIN: No skin breakdown. Assessment 1. Anemia 2. Thrombocytopenia. Platelet count improved. 3. Severe aortic valve insufficiency due to endocarditis s/p surgery 4. Possibility of heparin-induced thrombocytopenia 5. Gram-positive bacteremia 6. Cocaine abuse 7. Acute on chronic renal failure 8. Acute respiratory failure with the patient is improving. 9. Diabetes mellitus Plan 1. If this patient to stay in the hospital we will continue Arixtra. If the patient is going home and he will need anticoagulation we could do a use Pradaxa 150 mg p.o. twice daily for 1 month. Patient does not have insurance. Maybe his best chance is to get an ibuprofen especially if this patient is going to receive anticoagulation for long-term as per cardiology recommendation. So this patient can be started on Coumadin 5 mg p.o. daily. INR to be done daily until INR between 23. Close a heparin-induced thrombocytopenia the treatment usually is for 1 month. But from cardiology point review of symptoms this patient will need treatment for longer time. 2. There was hypersegmented neutrophils. This patient to Continue on folic acid 1 mg p.o. daily and vitamin B12 1000 mcg p.o. daily. 3. 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 We asked for SPEP, UPEP and free light chain. If there is monoclonal protein we will do a bone marrow biopsy. 4. Continue antibiotic treatment as per infectious disease specialist Vitals/Labs Vital Signs Date Time Temp Pulse Resp B/P (MAP) Pulse Ox O2 Delivery O2 Flow Rate FiO2 03/09/25 12:00 97.9 71 18 113/79 100 Room Air 03/09/25 07:10 21 03/08/25 20:00 0 Laboratory Tests 03/09/25 03:42 Medications Current Medications Vancomycin HCl 1 each AD IV; Start 02/23/25 at 19:00; Stop 02/23/25 at 19:33; Status DC Piperacillin Sod/ Tazobactam Sod 3.375 gm ONCE ONCE IV Last administered on 02/23/25at 19:58; Start 02/23/25 at 19:00; Stop 02/23/25 at 19:01; Status DC Vancomycin HCl 500 ml @ 250 mls/hr ONCE ONCE IV; Start 02/23/25 at 19:30; Stop 02/23/25 at 19:34; Status DC Sodium Chloride 1,000 ml @ 0 mls/hr ONCE ONCE IV Last administered on 02/23/25at 19:58; Start 02/23/25 at 20:00; Stop 02/23/25 at 19:58; Status DC Sodium Chloride 500 ml @ 0 mls/hr ONCE ONCE IV; Start 02/23/25 at 20:00; Stop 02/23/25 at 20:01; Status DC Sodium Chloride 1,000 ml @ 75 mls/hr [id number] IV Last administered on 02/23/25at 20:08; Start 02/23/25 at 20:00; Stop 02/23/25 at 23:03; Status DC Furosemide 40 mg ONCE ONCE IV Last administered on 02/23/25at 20:10; Start 02/23/25 at 20:00; Stop 02/23/25 at 20:01; Status DC Piperacillin Sod/ Tazobactam Sod 3.375 gm Q8H IV Last administered on 03/05/25at 21:05; Start 02/24/25 at 05:00; Stop 03/06/25 at 04:59; Status DC Pharmacy Profile Note 1 each ONCE MISC; Start 02/23/25 at 23:00; Stop 02/23/25 at 23:48; Status DC Acetaminophen/ Hydrocodone Bitart 1 tab Q6H PRN PO Last administered on 02/28/25at 08:27; Start 02/23/25 at 23:00; Stop 02/28/25 at 22:59; Status DC Heparin Sodium (Porcine) 5,000 unit BID SQ Last administered on 03/01/25at 20:22; Start 02/24/25 at 09:00; Stop 03/02/25 at 14:57; Status DC Albuterol 1 UDVIAL [id number] IH Last administered on 02/24/25at 07:08; Start 02/24/25 at 00:00; Stop 02/24/25 at 14:15; Status DC Hydroxyzine HCl 25 mg ONCE ONCE PO Last administered on 02/24/25at 00:55; Start 02/24/25 at 00:30; Stop 02/24/25 at 00:39; Status DC Linezolid 300 ml @ 150 mls/hr ONCE ONCE IV Last administered on 02/24/25at 00:55; Start 02/24/25 at 01:00; Stop 02/24/25 at 02:59; Status DC Furosemide 40 mg Q12H IV Last administered on 02/24/25at 09:34; Start 02/24/25 at 08:30; Stop 02/24/25 at 10:20; Status DC Pharmacy Profile Note 1 each AD MISC; Start 02/24/25 at 10:30; Stop 02/24/25 at 10:32; Status DC Doxycycline Hyclate 100 mg BID PO Last administered on 03/06/25at 07:59; Start 02/24/25 at 21:00; Stop 03/06/25 at 20:59; Status DC Furosemide 40 mg Q8H IV Last administered on 02/28/25at 08:26; Start 02/24/25 at 16:30; Stop 02/28/25 at 09:13; Status DC Dexmedetomidine/ Sodium Chloride 400 mcg PROTOCOL IV; Start 02/24/25 at 10:30; Stop 03/02/25 at 14:57; Status DC Ipratropium [place] 0.5 MG [id number] IH Last administered on 03/09/25at 07:07; Start 02/24/25 at 14:00; Stop 03/26/25 at 13:59 Budesonide 0.5 mg BIDRESP IH Last administered on 03/09/25at 07:07; Start 02/24/25 at 18:00; Stop 03/26/25 at 17:59 Montelukast Sodium 10 mg DAILY PO Last administered on 03/09/25at 10:43; Start 02/25/25 at 09:00; Stop 03/27/25 at 08:59 Linezolid 300 ml @ 150 mls/hr Q12H IV Last administered on 03/05/25at 22:13; Start 02/24/25 at 11:00; Stop 03/06/25 at 10:59; Status DC Metolazone 5 mg DAILY PO Last administered on 03/01/25at 14:49; Start 02/25/25 at 09:00; Stop 03/02/25 at 14:57; Status DC Folic Acid 1 mg DAILY PO Last administered on 02/25/25at 09:07; Start 02/25/25 at 09:00; Stop 02/26/25 at 07:40; Status DC Melatonin 10 mg HS PRN PO Last administered on 03/01/25at 23:53; Start 02/24/25 at 11:00; Stop 03/02/25 at 14:57; Status DC Pantoprazole Sodium 40 mg DAILY IVP Last administered on 03/02/25at 11:54; Start 02/24/25 at 11:00; Stop 03/02/25 at 14:57; Status DC Aspirin 81 mg DAILY PO Last administered on 03/09/25at 10:44; Start 02/25/25 at 09:00; Stop 03/27/25 at 08:59 Folic Acid 1 mg DAILY PO Last administered on 03/09/25at 10:44; Start 02/25/25 at 09:00; Stop 03/27/25 at 08:59 Thiamine HCl 100 mg DAILY PO Last administered on 03/09/25at 10:43; Start 02/25/25 at 09:00; Stop 03/27/25 at 08:59 Nystatin 5 ml QID PO Last administered on 03/09/25at 13:00; Start 02/24/25 at 17:00; Stop 03/26/25 at 16:59 Ondansetron HCl 4 mg Q6H PRN IVP Last administered on 03/02/25at 12:05; Start 02/24/25 at 21:00; Stop 03/02/25 at 14:57; Status DC Promethazine HCl 25 mg ONCE ONCE IM Last administered on 02/24/25at 21:11; Start 02/24/25 at 21:00; Stop 02/24/25 at 21:05; Status DC Alteplase, Recombinant 4 mg ONCE IVCATH Last administered on 02/25/25at 10:44; Start 02/25/25 at 09:30; Stop 02/25/25 at 11:00; Status DC Potassium Chloride 100 ml @ 100 mls/hr AD PRN IV Last administered on 02/27/25at 08:24; Start 02/25/25 at 11:00; Stop 02/27/25 at 10:47; Status DC Potassium Chloride 10 meq AD PRN PO; Start 02/25/25 at 11:00; Stop 03/02/25 at 14:57; Status DC Potassium Chloride 10 meq AD PRN PO; Start 02/25/25 at 11:00; Stop 02/27/25 at 10:48; Status DC Potassium Chloride 100 ml @ 100 mls/hr AD PRN IV Last administered on 03/02/25at 11:54; Start 02/25/25 at 11:00; Stop 03/02/25 at 14:57; Status DC Magnesium Sulfate 50 ml @ 0 mls/hr PROTOCOL PRN IV Last administered on 02/25/25at 11:27; Start 02/25/25 at 11:00; Stop 03/02/25 at 14:57; Status DC Pharmacy Profile Note 1 each AD MISC; Start 02/25/25 at 15:30; Stop 02/25/25 at 15:17; Status DC Pharmacy Profile Note 1 each ONCE MISC; Start 02/25/25 at 15:30; Stop 02/25/25 at 15:17; Status DC Acetaminophen/ Codeine Phosphate 10 ml Q4H PRN PO; Start 02/25/25 at 15:30; Stop 02/25/25 at 15:16; Status DC Potassium Chloride 40 meq ONCE ONCE PO Last administered on 02/25/25at 21:44; Start 02/25/25 at 22:00; Stop 02/25/25 at 22:01; Status DC Potassium Chloride 40 meq ONCE ONCE PO Last administered on 02/27/25at 05:53; Start 02/27/25 at 05:30; Stop 02/27/25 at 05:32; Status DC Potassium Chloride 10 meq AD PRN PO Last administered on 03/01/25at 05:39; Start 02/27/25 at 11:00; Stop 03/02/25 at 14:57; Status DC Potassium Chloride 20 meq DAILY PO Last administered on 03/01/25at 14:50; Start 03/01/25 at 09:00; Stop 03/02/25 at 14:57; Status DC Bumetanide 40 ml @ 0 mls/hr AD IV Last administered on 03/02/25at 06:01; Start 02/28/25 at 09:30; Stop 03/02/25 at 14:57; Status DC Acetaminophen/ Hydrocodone Bitart 1 tab Q6H PRN PO Last administered on 03/01/25at 23:53; Start 03/01/25 at 00:30; Stop 03/02/25 at 14:57; Status DC Heparin Sodium/ Sodium Chloride 1,000 ml @ As Directed STK-MED ONCE IV; Start 03/01/25 at 11:25; Stop 03/01/25 at 11:25; Status DC Lidocaine HCl 20 ml STK-MED ONCE .ROUTE; Start 03/01/25 at 11:26; Stop 03/01/25 at 11:27; Status DC Heparin Sodium (Porcine) 10,000 unit STK-MED ONCE .ROUTE; Start 03/01/25 at 11:27; Stop 03/01/25 at 11:27; Status DC Nitroglycerin 50 mg STK-MED ONCE .ROUTE; Start 03/01/25 at 11:27; Stop 03/01/25 at 11:27; Status DC Iohexol 35,000 mg STK-MED ONCE IV; Start 03/01/25 at 11:30; Stop 03/01/25 at 11:31; Status DC Verapamil HCl 5 mg STK-MED ONCE .ROUTE; Start 03/01/25 at 11:40; Stop 03/01/25 at 11:41; Status DC Fentanyl Citrate 100 mcg STK-MED ONCE .ROUTE; Start 03/01/25 at 12:02; Stop 03/01/25 at 12:02; Status DC Midazolam HCl 2 mg STK-MED ONCE .ROUTE; Start 03/01/25 at 12:02; Stop 03/01/25 at 12:02; Status DC Sodium Chloride 1,000 ml @ 150 mls/hr Q6H40M IV Last administered on 03/01/25at 14:50; Start 03/01/25 at 13:00; Stop 03/01/25 at 15:37; Status DC Dextrose 50 ml AD PRN IV; Start 03/01/25 at 13:00; Stop 03/02/25 at 15:25; Status DC Glucagon 1 mg AD PRN IM; Start 03/01/25 at 13:00; Stop 03/02/25 at 15:38; Status DC Cefazolin Sodium 2 gm ONCALL IVP; Start 03/01/25 at 23:00; Stop 03/02/25 at 15:20; Status DC Epinephrine HCl 10 mg/Sodium Chloride 250 ml @ 0 mls/hr AD PRN IV; Start 03/02/25 at 08:30; Stop 03/07/25 at 15:20; Status DC Norepinephrine Bitartrate 250 ml @ 0 mls/hr AD PRN IV; Start 03/02/25 at 08:30; Stop 03/07/25 at 15:20; Status DC Aminocaproic Acid 21606 mg/Sodium Chloride 480 ml @ 0 mls/hr AD PRN IV; Start 03/02/25 at 08:30; Stop 03/07/25 at 15:20; Status DC Sodium Chloride 1,000 ml @ As Directed STK-MED ONCE IV Last administered on 03/02/25at 12:44; Start 03/02/25 at 12:34; Stop 03/02/25 at 12:34; Status DC Sodium Chloride 1,000 ml @ 0 mls/hr Q0M IV; Start 03/02/25 at 13:00; Stop 04/01/25 at 12:59 Nitroglycerin/ Dextrose 1 ml @ As Directed STK-MED ONCE .ROUTE; Start 03/02/25 at 13:06; Stop 03/02/25 at 13:06; Status DC Sodium Bicarbonate 100 ml @ As Directed STK-MED ONCE .ROUTE; Start 03/02/25 at 13:26; Stop 03/02/25 at 13:26; Status DC Cefazolin Sodium 1 gm STK-MED ONCE .ROUTE; Start 03/02/25 at 13:39; Stop 03/02/25 at 13:39; Status DC Heparin Sodium/ Sodium Chloride 500 ml @ As Directed STK-MED ONCE IV; Start 03/02/25 at 13:39; Stop 03/02/25 at 13:40; Status DC Protamine Sulfate 250 mg STK-MED ONCE IV; Start 03/02/25 at 14:02; Stop 03/02/25 at 14:02; Status DC Lidocaine HCl 100 mg STK-MED ONCE .ROUTE; Start 03/02/25 at 14:02; Stop 03/02/25 at 14:02; Status DC Heparin Sodium (Porcine) 10,000 unit STK-MED ONCE .ROUTE; Start 03/02/25 at 14:02; Stop 03/02/25 at 14:02; Status DC Epinephrine HCl 1 mg STK-MED ONCE .ROUTE; Start 03/02/25 at 14:02; Stop 03/02/25 at 14:02; Status DC Sodium Bicarbonate 200 ml @ As Directed STK-MED ONCE .ROUTE; Start 03/02/25 at 14:02; Stop 03/02/25 at 14:02; Status DC Norepinephrine Bitartrate 4 mg STK-MED ONCE IV; Start 03/02/25 at 14:02; Stop 03/02/25 at 14:02; Status DC Propofol 200 mg STK-MED ONCE IV; Start 03/02/25 at 14:02; Stop 03/02/25 at 14:03; Status DC Fentanyl Citrate 1,000 mcg STK-MED ONCE IJ; Start 03/02/25 at 14:02; Stop 03/02/25 at 14:03; Status DC Midazolam HCl 2 mg STK-MED ONCE .ROUTE; Start 03/02/25 at 14:03; Stop 03/02/25 at 14:03; Status DC Rocuronium [place] 50 mg STK-MED ONCE .ROUTE; Start 03/02/25 at 14:03; Stop 03/02/25 at 14:03; Status DC Sodium Chloride 1,000 ml @ 10 mls/hr ONCE IV Last administered on 03/02/25at 15:00; Start 03/02/25 at 15:00; Stop 03/03/25 at 14:59; Status DC Sodium Chloride 10 ml Q8H PRN IVP; Start 03/02/25 at 15:00; Stop 04/01/25 at 14:59 Morphine Sulfate 0.5 mg Q2H PRN IV; Start 03/02/25 at 15:00; Stop 03/03/25 at 14:59; Status DC Morphine Sulfate 1 mg Q2H PRN IV; Start 03/02/25 at 15:00; Stop 03/03/25 at 14:59; Status DC Acetaminophen 650 mg Q4H PRN RC; Start 03/02/25 at 15:00; Stop 04/01/25 at 14:59 Ondansetron HCl 4 mg Q6H PRN IV Last administered on 03/05/25at 21:06; Start 03/02/25 at 15:00; Stop 04/01/25 at 14:59 Sodium Chloride 500 ml @ 0 mls/hr AD IV Last administered on 03/03/25at 01:32; Start 03/02/25 at 15:00; Stop 04/01/25 at 14:59 Nitroglycerin/ Dextrose 0 ml @ 0 mls/hr AD IV; Start 03/02/25 at 15:00; Stop 03/05/25 at 14:59; Status DC Propofol 100 ml @ 0 mls/hr AD PRN IV; Start 03/02/25 at 15:00; Stop 03/06/25 at 14:59; Status DC Norepinephrine Bitartrate 8 mg/ Dextrose 250 ml @ 0 mls/hr AD PRN IV; Start 03/02/25 at 15:00; Stop 03/02/25 at 15:16; Status DC Epinephrine HCl 10 mg/Sodium Chloride 250 ml @ 0 mls/hr AD PRN IV; Start 03/02/25 at 15:00; Stop 03/02/25 at 15:16; Status DC Aminocaproic Acid 24270 mg/Sodium Chloride 310 ml @ 25 mls/hr AD IV; Start 03/02/25 at 15:00; Stop 03/02/25 at 15:15; Status DC Calcium Gluconate 1 gm/Sodium Chloride 60 ml @ 0 mls/hr AD PRN IV Last administered on 03/03/25at 02:29; Start 03/02/25 at 15:00; Stop 04/01/25 at 14:59 Magnesium Sulfate 50 ml @ 12.5 mls/hr AD PRN IV Last administered on 03/08/25at 10:08; Start 03/02/25 at 15:00; Stop 04/01/25 at 14:59 Potassium Chloride 100 ml @ 100 mls/hr AD PRN IV Last administered on 03/06/25at 05:21; Start 03/02/25 at 15:00; Stop 04/01/25 at 14:59 Potassium Phosphate 250 ml @ 42 mls/hr AD PRN IV Last administered on 03/03/25at 09:48; Start 03/02/25 at 15:00; Stop 04/01/25 at 14:59 Albumin Human 250 ml @ 0 mls/hr AD PRN IV; Start 03/02/25 at 15:00 Acetaminophen 650 mg Q4H PRN PO; Start 03/02/25 at 15:00; Stop 04/01/25 at 14:59 Insulin Human Regular 100 unit/ Sodium Chloride 100 ml @ 0 mls/hr AD IV Last administered on 03/02/25at 19:17; Start 03/02/25 at 15:00; Stop 03/04/25 at 14:59; Status DC Cefazolin Sodium 2 gm Q8H IVPB Last administered on 03/03/25at 14:04; Start 03/02/25 at 20:00; Stop 03/03/25 at 12:01; Status DC Tramadol HCl 25 mg Q6H PRN PO; Start 03/02/25 at 15:00; Stop 03/02/25 at 15:33; Status DC Tramadol HCl 50 mg Q6H PRN PO; Start 03/02/25 at 15:00; Stop 03/02/25 at 15:39; Status DC Famotidine 20 mg DAILY IV Last administered on 03/05/25at 08:40; Start 03/03/25 at 09:00; Stop 03/06/25 at 07:40; Status DC Sodium Bicarbonate 50 meq AD PRN IV Last administered on 03/02/25at 22:09; Start 03/02/25 at 15:00; Stop 03/05/25 at 14:59; Status DC Dextrose 50 ml AD PRN IV; Start 03/02/25 at 15:00; Stop 04/01/25 at 14:59 Glucagon 1 mg AD PRN IM; Start 03/02/25 at 15:00; Stop 04/01/25 at 14:59 Amiodarone HCl 150 mg STK-MED ONCE .ROUTE; Start 03/02/25 at 15:11; Stop 03/02/25 at 15:12; Status DC Rocuronium [place] 50 mg STK-MED ONCE .ROUTE; Start 03/02/25 at 15:52; Stop 03/02/25 at 15:52; Status DC Factor IX (Pha) 1 mg STK-MED ONCE .ROUTE; Start 03/02/25 at 16:43; Stop 03/02/25 at 16:43; Status DC Factor IX (Pha) 1 mg STK-MED ONCE .ROUTE; Start 03/02/25 at 16:52; Stop 03/02/25 at 16:53; Status DC Desmopressin Acetate 40 mcg/ Sodium Chloride 50 ml @ 100 mls/hr AD STAT IJ; Start 03/02/25 at 17:44; Stop 03/02/25 at 18:13; Status DC Cefazolin Sodium 3 gm STK-MED ONCE IVPB Last administered on 03/02/25at 15:00; Start 03/02/25 at 15:00; Stop 03/02/25 at 19:27; Status DC Cefazolin Sodium 1 gm STK-MED ONCE IRRIG Last administered on 03/02/25at 15:15; Start 03/02/25 at 15:15; Stop 03/02/25 at 19:27; Status DC Albumin Human 500 ml @ 0 mls/hr AD IV Last administered on 03/03/25at 01:31; Start 03/03/25 at 01:30; Stop 03/03/25 at 08:52; Status DC Vasopressin 40 units/Sodium Chloride 40 ml @ 0 mls/hr PROTOCOL IV; Start 03/03/25 at 01:30; Stop 03/07/25 at 15:20; Status DC Sodium Chloride 500 ml @ 0 mls/hr Q0M IV; Start 03/03/25 at 01:30; Stop 03/03/25 at 08:52; Status DC Acetaminophen 1,000 mg Q6H6 IVPB; Start 03/03/25 at 03:30; Stop 03/03/25 at 04:00; Status DC Tramadol HCl 50 mg Q6H PRN PO Last administered on 03/07/25at 12:42; Start 03/03/25 at 03:30; Stop 03/08/25 at 03:29; Status DC Acetaminophen 1,000 mg Q6H IVPB Last administered on 03/03/25at 04:17; Start 03/03/25 at 04:00; Stop 03/03/25 at 08:44; Status DC Acetaminophen 1,000 mg Q6H6 IV Last administered on 03/04/25at 06:32; Start 03/03/25 at 09:00; Stop 03/04/25 at 08:59; Status DC Docusate Sodium 100 mg BID PO Last administered on 03/09/25at 10:44; Start 03/03/25 at 09:00; Stop 04/02/25 at 08:59 Lactulose 20 gm BID PRN PO; Start 03/03/25 at 09:00; Stop 04/02/25 at 08:59 Furosemide 20 mg Q12H PO; Start 03/04/25 at 09:00; Stop 03/03/25 at 08:54; Status DC Furosemide 20 mg Q12H IV; Start 03/03/25 at 09:00; Stop 03/03/25 at 08:54; Status DC Enoxaparin Sodium 30 mg DAILY SQ; Start 03/05/25 at 09:00; Stop 03/05/25 at 19:17; Status DC Metoprolol Tartrate 12.5 mg BID PO Last administered on 03/05/25at 08:41; Start 03/04/25 at 09:00; Stop 03/05/25 at 12:08; Status DC Magnesium Hydroxide 30 ml DAILY PRN PO; Start 03/03/25 at 09:00; Stop 04/02/25 at 08:59 Acetaminophen 650 mg Q6H PRN PO Last administered on 03/09/25at 10:44; Start 03/03/25 at 09:00; Stop 04/02/25 at 08:59 Furosemide 20 mg Q12H IV Last administered on 03/03/25at 20:10; Start 03/03/25 at 09:00; Stop 03/04/25 at 08:59; Status DC Furosemide 20 mg BID@09,17 PO Last administered on 03/06/25at 07:59; Start 03/04/25 at 09:00; Stop 03/06/25 at 08:42; Status DC Cefazolin Sodium 2 gm STK-MED ONCE .ROUTE; Start 03/03/25 at 13:58; Stop 03/03/25 at 13:59; Status DC Metoprolol Tartrate 25 mg BID PO Last administered on 03/09/25at 10:43; Start 03/05/25 at 21:00; Stop 04/04/25 at 20:59 Metoprolol Tartrate 12.5 mg ONCE ONCE PO Last administered on 03/05/25at 13:34; Start 03/05/25 at 13:30; Stop 03/05/25 at 13:31; Status DC Fondaparinux 2.5 mg DAILY SQ; Start 03/06/25 at 09:00; Stop 03/06/25 at 09:05; Status DC Amlodipine Besylate 10 mg DAILY PO Last administered on 03/09/25at 10:44; Start 03/06/25 at 09:00; Stop 04/05/25 at 08:59 Hydralazine HCl 10 mg Q6H PRN IV; Start 03/06/25 at 09:00; Stop 04/05/25 at 08:59 Furosemide 30 mg Q12H IV Last administered on 03/07/25at 20:54; Start 03/06/25 at 09:00; Stop 03/07/25 at 21:01; Status DC Potassium Chloride 20 meq AD PRN PO Last administered on 03/09/25at 05:10; Start 03/06/25 at 09:00; Stop 04/05/25 at 08:59 Piperacillin Sod/ Tazobactam Sod 3.375 gm Q8H IVPB Last administered on 03/09/25at 12:59; Start 03/06/25 at 12:30; Stop 03/20/25 at 12:29 Pharmacy Profile Note 1 each ONCE MISC; Start 03/06/25 at 12:30; Stop 03/06/25 at 12:17; Status DC Linezolid 300 ml @ 150 mls/hr Q12H IV Last administered on 03/09/25at 12:59; Start 03/06/25 at 12:30; Stop 03/16/25 at 12:29 Fondaparinux 2.5 mg ONCE ONCE SQ Last administered on 03/06/25at 15:12; Start 03/06/25 at 14:30; Stop 03/06/25 at 14:31; Status DC Fondaparinux 2.5 mg DAILY SQ Last administered on 03/09/25at 10:45; Start 03/07/25 at 09:00; Stop 04/06/25 at 08:59 Albumin Human 50 ml @ As Directed STK-MED ONCE IV; Start 02/23/25 at 14:10; Stop 03/07/25 at 14:12; Status DC Aminocaproic Acid 5,000 mg STK-MED ONCE IV; Start 02/23/25 at 14:10; Stop 03/07/25 at 14:12; Status DC Calcium Chloride 1,000 mg STK-MED ONCE IVP; Start 02/23/25 at 14:10; Stop 03/07/25 at 14:12; Status DC Heparin Sodium (Porcine) 10,000 unit STK-MED ONCE IV; Start 02/23/25 at 14:10; Stop 03/07/25 at 14:12; Status DC Lidocaine HCl 5 mg STK-MED ONCE IVP; Start 02/23/25 at 14:10; Stop 03/07/25 at 14:12; Status DC Magnesium Sulfate 1 gm STK-MED ONCE IM; Start 02/23/25 at 14:10; Stop 03/07/25 at 14:12; Status DC Mannitol 12.5 gm STK-MED ONCE IV; Start 02/23/25 at 14:10; Stop 03/07/25 at 14:12; Status DC Phenylephrine HCl 10 mg STK-MED ONCE IV; Start 02/23/25 at 14:10; Stop 03/07/25 at 14:12; Status DC Sodium Bicarbonate 50 meq STK-MED ONCE IVP; Start 02/23/25 at 14:10; Stop 03/07/25 at 14:12; Status DC Furosemide 40 mg DAILY PO Last administered on 03/09/25at 10:43; Start 03/08/25 at 09:00; Stop 04/07/25 at 08:59 Wound Care/ Dressing Products 1 APPLY BID BID TP Last administered on 03/09/25at 09:00; Start 03/08/25 at 21:00; Stop 04/07/25 at 20:59 Ketorolac Tromethamine 15 mg ONCE ONCE IV; Start 03/08/25 at 18:00; Stop 03/08/25 at 18:01; Status DC Acetaminophen/ Hydrocodone Bitart 1 tab ONCE ONCE PO Last administered on 03/08/25at 21:02; Start 03/08/25 at 21:00; Stop 03/08/25 at 21:01; Status DC Ibuprofen 400 mg ONCE ONCE PO Last administered on 03/09/25at 13:41; Start 03/09/25 at 13:30; Stop 03/09/25 at 13:31; Status DC LEOPOLDO AGUILAR MD Mar 09, 2025 13:55
--- NOTE | 2025-03-09 14:15 | PN ---
INFECTIOUS DISEASE PROGRESS NOTE Date of Service: Mar 09, 2025 SUBJECTIVE: Patient is status post bioprosthetic aortic valve replacement on 03/02/2025. Patient is afebrile, temperature is 97.9 and the WBC is 8.5.. From Infectious Disease standpoint patient can be discharged to home on linezolid PO x 4 weeks when ready to discharge. Prescription was written. Case management to assist in obtaining medication. ID will sign off at this time. Reconsult if needed. PHYSICAL EXAM EYES: Anicteric. Pupils equal and reactive. HENT: No oral thrush seen, moist Oral mucosa. NECK: Supple, no JVD or thyromegaly. LUNGS: Lung sounds clear. CHEST: Surgical incision to his mid chest with dressing in place. CARDIOVASCULAR: S1, S2 regular. No murmur heard. ABDOMEN: Soft, non tender, bowel sounds present, no organomegaly. CENTRAL NERVOUS SYSTEM: Awake, alert, oriented x 3. SKIN: No rashes, no swelling. Lower extremity edema. LYMPHATICS: No peripheral lymphadenopathy. MUSCULOSKELETAL: No joint swelling, erythema or tenderness. EXTREMITIES: No cyanosis or clubbing. Lower extremities edema, improving. BACK: No deformity, no pressure ulcer. GENITOURINARY: No dysuria or hematuria. Vital Sign (Last 12 Hours) 03/09/25 03/09/25 03/09/25 03/09/25 03:00 07:09 07:10 08:11 Temp 98.4 97.9 Pulse 80 77 77 82 Resp 18 18 18 16 B/P (MAP) 111/66 119/67 Pulse Ox 98 98 O2 Delivery Room Air N/A Room Air Room Air FiO2 21 03/09/25 03/09/25 12:00 13:56 Temp 97.9 Pulse 71 79 Resp 18 18 B/P (MAP) 113/79 Pulse Ox 100 O2 Delivery Room Air Intake & Output (last 24hrs) 03/08/25 03/08/25 03/09/25 15:00 23:00 07:00 Intake Total 1120.0 ml 290.0 ml 350.0 ml Output Total 300 ml 700 ml Balance 1120.0 ml -10.0 ml -350.0 ml LABS: Laboratory: Test 03/09/25 03:42 03/08/25 05:00 Range/Units White Blood Count 8.5 4.8-10.8 K/uL Red Blood Count 2.52 L 4.50-6.20 MIL/uL Hemoglobin 7.4 L 14.0-18.0 g/dL Hematocrit 22.5 L 42-54 % Mean Corpuscular Volume 89.3 79-99 fL Mean Corpuscular Hemoglobin 29.4 27.0-33.0 pg Mean Corpuscular Hemoglobin Concent 32.9 32.0-36.0 g/dL Red Cell Distribution Width 14.6 11.0-15.5 % Platelet Count 117 L 130-400 K/uL Mean Platelet Volume 11.4 H 7.5-10.5 fL Immature Granulocyte % (Auto) 0.2 0-1 % Neutrophils (%) (Auto) 58.4 40.0-77.0 % Lymphocytes (%) (Auto) 24.6 21.0-51.0 % Monocytes (%) (Auto) 10.5 3.0-13.0 % Eosinophils (%) (Auto) 5.6 0.0-8.0 % Basophils (%) (Auto) 0.7 0.0-5.0 % Neutrophils # (Auto) 4.9 1.8-7.7 K/uL Lymphocytes # (Auto) 2.1 1.0-4.8 K/uL Monocytes # (Auto) 0.9 0.1-1.0 K/uL Eosinophils # (Auto) 0.47 0.00-0.70 K/uL Basophils # (Auto) 0.06 0.00-0.20 K/uL Absolute Immature Granulocyte (auto 0.02 0-1 K/uL Nucleated Red Blood Cells 0.0 0.0-0.19 % Sodium Level 137 136-145 mmol/L Potassium Level 3.8 3.5-5.1 mmol/L Chloride Level 102 101-111 mmol/L Carbon Dioxide Level 26 21-32 mmol/L Blood Urea Nitrogen 16 7-18 mg/dL Creatinine 1.4 H 0.5-1.3 mg/dL Glomerular Filtration Rate Calc 64 >90 mL/min Random Glucose 129 H 70-105 mg/dL Total Calcium 8.1 L 8.5-10.1 mg/dL Total Bilirubin 0.4 0.2-1.0 mg/dL Aspartate Amino Transf (AST/SGOT) 12 10-37 U/L Alanine Aminotransferase (ALT/SGPT) < 6 L 12-78 U/L Alkaline Phosphatase 81 50-136 U/L Total Protein 5.8 L 6.0-8.3 g/dL Albumin 2.1 L 3.5-5.0 g/dL Magnesium Level 1.90 1.80-2.40 mg/dL ASSESSMENT: Gram-positive Bacteremia. Aortic valve Endocarditis with aortic insufficiency, s/p aortic valve replacement on 03/02/2025. Bacterial Pneumonia. Leukocytosis, resolved. Acute on chronic diastolic heart failure. Acute on chronic renal failure, improving. Morbid obesity. Hypoxic respiratory failure, resolved. Anemia requiring blood transfusion. Hypokalemia. PLAN: From Infectious Disease standpoint patient can be discharged to home on linezolid PO x 4 weeks when ready to discharge. Prescription was written. Case management to assist in obtaining medication. Will Sign off at this time. Reconsult if needed. This case was reviewed and discussed with my supervising physician and the above assessment and plan was formulated and agreed upon. ATTESTATION BY PHYSICIAN I have seen and examined the patient. I reviewed the documentation, medical decision making, and treatment plan as noted by the mid-level provider above. I agree with the findings and plan of care. JANUARY CARLSON MD, [facility] Mar 09, 2025 14:15
--- NOTE | 2025-03-09 14:34 | PN ---
[facility] CARDIOLOGY PROGRESS NOTE Date Patient Seen: Mar 09, 2025 Time of Visit: 14:33 Interval History: [s/p AVR 03/02. Hb dropped to 7.4 today, but platelets improving. Physical Examination: GENERAL: [No acute distress.] HEAD: [Normal with no signs of head trauma.] EYES: [PERRLA, EOMI, conjunctiva and sclera normal.] ENT: [Hearing grossly intact, normal oropharynx.] NECK: [Supple without JVD. There is no tenderness, lymphadenopathy, or masses. No thyromegaly. Normal carotid upstrokes without bruits.] LUNGS: [Clear breath sounds bilaterally. There are right basilar rales one third of the way up the chest. No wheezes, or rhonchi.] HEART: [Normal rate and rhythm. ] VASC: [Peripheral pulses +2 bilaterally.] ABD: [Bowel sounds normal, soft, nontender, no masses, no organomegaly. No audible bruits.] NEURO: [Awake, alert, and oriented x3. No focal sensory or strength deficits noted.] Laboratory: [ ] Hematology Labs: Test 03/09/25 03:42 Range/Units White Blood Count 8.5 4.8-10.8 K/uL Red Blood Count 2.52 L 4.50-6.20 MIL/uL Hemoglobin 7.4 L 14.0-18.0 g/dL Hematocrit 22.5 L 42-54 % Mean Corpuscular Volume 89.3 79-99 fL Mean Corpuscular Hemoglobin 29.4 27.0-33.0 pg Mean Corpuscular Hemoglobin Concent 32.9 32.0-36.0 g/dL Red Cell Distribution Width 14.6 11.0-15.5 % Platelet Count 117 L 130-400 K/uL Mean Platelet Volume 11.4 H 7.5-10.5 fL Immature Granulocyte % (Auto) 0.2 0-1 % Neutrophils (%) (Auto) 58.4 40.0-77.0 % Lymphocytes (%) (Auto) 24.6 21.0-51.0 % Monocytes (%) (Auto) 10.5 3.0-13.0 % Eosinophils (%) (Auto) 5.6 0.0-8.0 % Basophils (%) (Auto) 0.7 0.0-5.0 % Neutrophils # (Auto) 4.9 1.8-7.7 K/uL Lymphocytes # (Auto) 2.1 1.0-4.8 K/uL Monocytes # (Auto) 0.9 0.1-1.0 K/uL Eosinophils # (Auto) 0.47 0.00-0.70 K/uL Basophils # (Auto) 0.06 0.00-0.20 K/uL Absolute Immature Granulocyte (auto 0.02 0-1 K/uL Nucleated Red Blood Cells 0.0 0.0-0.19 % Chemistry Labs: Test 03/09/25 03:42 03/08/25 05:00 Range/Units Sodium Level 137 136-145 mmol/L Potassium Level 3.8 3.5-5.1 mmol/L Chloride Level 102 101-111 mmol/L Carbon Dioxide Level 26 21-32 mmol/L Blood Urea Nitrogen 16 7-18 mg/dL Creatinine 1.4 H 0.5-1.3 mg/dL Glomerular Filtration Rate Calc 64 >90 mL/min Random Glucose 129 H 70-105 mg/dL Total Calcium 8.1 L 8.5-10.1 mg/dL Total Bilirubin 0.4 0.2-1.0 mg/dL Aspartate Amino Transf (AST/SGOT) 12 10-37 U/L Alanine Aminotransferase (ALT/SGPT) < 6 L 12-78 U/L Alkaline Phosphatase 81 50-136 U/L Total Protein 5.8 L 6.0-8.3 g/dL Albumin 2.1 L 3.5-5.0 g/dL Magnesium Level 1.90 1.80-2.40 mg/dL Diagnostics / Radiology: [Copy/Paste Echos/Imaging Report here] Impression and Plan: [-severe AI, secondary to endocarditis -2D echo on 02/24, EF 60-65%, demonstrating with severe AI, 1.4 cm aortic leaflet vegetation -Acute on chronic diastolic heart failure -PNA -UTI -Normocytic anemia -Acute on chronic CKD stage IIIb, baseline creatinine of 2 -Fidelina esophagitis identified on EGD done 01/11/2025 -Bacterial endocarditis affecting the aortic valve (1.81x1.17 cm mass attached to the noncoronary cusp leaflet) identified on [facility]KE done 01/11/2025 -Lactic acidosis, improving -Left atrial appendage thrombus identified on DRAKE done 01/11/2025, not currently an anticoagulation due to thrombocytopenia -Normal LV systolic function (LVEF: 60-65% by echo done 01/11/2025) -Elevated troponin (type II TN), peaking in the 400s -History of ITP in 12/2024 -Liver cirrhosis -Esophagitis by EGD 01/11/2025 -CAD s/p PCI with IA Integrilin, aspiration thrombectomy, PTCA, and KISHORE placement (Promus 4.0x16 mm) in the proximal LAD done on 12/19/2015 -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 Troponins have been elevated in the 200-400 range. Normal [facility] s/p AVR 03/02 Evans Hilario MD] EVANS HILARIO MD Mar 09, 2025 14:34
--- NOTE | 2025-03-09 15:24 | PN ---
[facility] PROGRESS NOTE Date of Service: Mar 09, 2025 Time of Service: 14:44 SUBJECTIVE: [ HPI : 54-year-old male with a complex medical history including recent hospitalization with a Gram-positive bacteremia secondary to Staph aureus, severe sepsis and endocarditis with echogenic vegetations on noncoronary cusps and right coronary cusp as well as left atrial appendage clot on January 11, 2025 presented to the ED days history of worsening shortness of breath. He was discharged on January 31, 2025 with long-term IV linezolid via PICC line for infective endocarditis. Since 3 days he reports progressive dyspnea, worsened acutely today. He denies chest pain but notes fatigue and exertional intolerance. There is no reported fever or chills. He was in mild respiratory distress on arrival. Notably has a past medical history of Fidelina esophagitis, uncontrolled diabetes mellitus type 2 BRENDAN, immune thrombocytopenic purpura, UTI Klebsiella and substance abuse with cocaine alcohol and tobacco. So on physical examination he is positive for shortness of breaths and cough no hemoptysis. His lungs have expiratory wheezes and diffuse crackling bilaterally. He is tachycardic with regular rhythm. His WBC count is at 18, hemoglobin at 10.5 and platelet count at 470 K with leukocytosis chronic anemia and thrombocytosis, chemistry is with creatinine showing 2.2, BUN at and CO2 at 18.2 magnesium low consistent with BRENDAN, electrolyte derangements. His arterial blood gas analysis reveals a pH of 7.469, PaCO2 of 26, PO2 of 54.6, HC03 of 18.2 and saturation of 90.2 Representing acute hypoxic respiratory failure with respiratory alkalosis. Serum lactate is elevated at 3.6 persistent lactic acidosis. BNP is at 2410 suggesting cardiac strain or volume overload. And troponin is elevated at [address] segment elevated PR. and urine analysis positive concerning for UTI and nephropathy due to positive hyaline casts. Chest x-ray reveals diffuse bilateral opacities consistent with pneumonia and chest CT scan reveals bilateral pleural effusion bilateral ground-glass pulmonary infiltrates are seen renal ultrasound reveals no hydronephrosis. And a CT scan also revealed gallstone. Echo is ordered to assess vegetations, LA clot and EF. Lower extremity Doppler revealed no DVT, Matthews's cyst versus hematoma in the left knee. EGD from prior history Fidelina esophagitis. The patient is admitted to ICU with the critical Care and Cardiology and Infectious Disease consult has been placed for further management currently on Precedex drip and CPAP setting with tidal volume of 657 and a rate of 36 and PIP of15 and ve of 23.2. Furosemide 40 q.12h is added in addition to his antibiotics monitoring the patient closely and discuss the goal of care with the patient and he agreed upon with it. 02/25/2025. Patient seen and examined along with RN. Feels better , breathing has improved. Continues to be on IV Lasix and metolazone was added. 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 CT surgery was consulted regarding to his severe AI. Patient continues with diuretics in IV antibiotics. No fevers denies chest pain. 02/27/25 44-year-old male with a complex medical history including infective endocar ditis, severe aortic insufficiency, CHF, BRENDAN, diabetic nephropathy, bilateral pneumonia, and recent gram-negative sepsis, is clinically improving. The patient reports that shortness of breath has been improving slowly over the past 48 hours. He currently denies chest pain, fever, or chills. He is tolerating medications and oral intake well. He remains on low-flow oxygen at 1L via nasal cannula, saturating well at 98%, ambulating to the chair with mild fatigue but no acute respiratory distress. No complaints of palpitations or dizziness. He is aware of the upcoming left heart catheterization and understands the indication for aortic valve replacement surgery. No family was present during bedside examination WBC: 11.7 (? from 13.2) improving leukocytosis February 28 2025 44-year-old male with severe apache aortic valve insufficiency, bacterial endocarditis, and worsening pulmonary congestion, was upgraded to PCCU today due to clinical and radiographic deterioration. He remains dyspneic and hypoxic despite low-flow oxygen support. He reports difficulty breathing, especially in the supine position, and has been unable to tolerate lying flat due to severe orthopnea. He feels increasingly fatigued, lightheaded, and weak. Denies chest pain, fevers, chills, or palpitations. He is aware of his pending left heart catheterization and the need for aortic valve replacement surgery and verbalizes continued understanding and consent March 01 2025 The patient was examined at bedside this morning. He remains alert and oriented, and in no acute distress while sitting up. He reports increased shortness of breath when lying back or attempting to sleep supine, consistent with severe orthopnea, though otherwise states that he is feeling okay. He is NPO for the planned left heart catheterization scheduled for today as part of the workup for severe apache aortic insufficiency with large vegetation and worsening decompensated heart failure. He has no new complaints of chest pain, fever, chills, nausea, or dizziness. He verbalizes understanding of the planned cardiac intervention and its associated risks, including contrast use, bleeding, arrhythmia, and need for surgical valve replacement afterward. March 02 2025 The patient was evaluated at bedside this morning. He was found sitting upright, hemodynamically stable, alert, and oriented. He reports no acute complaints at this time, denies chest pain, palpitations, nausea, or dizziness. He remains on 2L O? via nasal cannula, comfortable at rest, and is awaiting surgical intervention today for severe aortic valve regurgitation. The patient underwent left and right heart catheterization yesterday which reve aled normal coronary anatomy with mild non-obstructive CAD. Cardiology has cleared the patient for surgical aortic valve repair. He has been informed of the risks and benefits of the procedure and has provided informed consent. His oxygen saturation and hemodynamics remain stable. He denies orthopnea today. 03/03/25 The patient was examined at bedside this morning, currently Post-Operative Day 1 following successful aortic valve replacement for apache valve endocarditis. He is sitting upright in bed, alert and oriented, and reports that he is doing okay overall. He denies shortness of breath or chest discomfort but reports moderate incisional pain, well controlled with PRN Tylenol and tramadol. He reports mild fatigue but no nausea, dizziness, palpitations, or changes in vision. He is tolerating clear liquids. He has been out of bed to chair. No major overnight events noted. 03/04/25 Patient is evaluated at bedside this morning on postoperative day2 following bioprosthetic AV valve replacement for apache valve infective endocarditis with severe regurgitation. He appears clinically improved. He denies chest pain, shortness of breath, dizziness, nausea, vomiting or other acute complaints. He reports mild fatigue and incisional pain, which is well controlled with acetaminophen p.r.n.. He is now breathing comfortably on room air, requiring no supplemental O2 and weaned off all vasopressors and inotropes. Appetite has improved. No complaints of orthopnea or PND. He continues to void adequately, although noted to have some postop anemia and mild thrombocytopenia. He is aware of ongoing recovery and upcoming transfusion today for symptomatic anemia. He has pain sitting up in the recliner. 03/05/25 patient seen and examined. Care discussed with the. Cardiology consulted Hematology for anticoagulation management He presented with severe symptomatic aortic valve insufficiency in the setting of bacterial endocarditis. He is status post bioprosthetic aortic valve replacement 03/02/2025. Continue aspirin 81 mg once daily. 03/06/25 Patient was examined at bedside this morning. He is currently off supplemental O2, breathing comfortably on room air with SpO2 of 98%, and hemodynamically stable. He is sitting upright in a recliner, awake, alert, oriented and reports feeling better overall. He denies chest pain, shortness of breath at rest, or dizziness. He notes mild bilateral leg swelling, but denies any pain, erythema or tenderness. He is ambulating with assistance, tolerating oral intake, and urinating spontaneously. His central line was removed and PICC line remains in place. Chest tube remains with a with decreased output today of 160 mL. He has not required vasopressors or inotropes, and respiratory parameters are stable. He is he understands that he has been downgraded from ICU to PCCU as a part of recovery plan. Awaiting Hematology recommendations for anti coagulation. 03/07/25 Patient was examined at bedside this morning and reports he is feeling much better overall. His hemodynamically stable, breathing on room air, and ambulating with assistance through cardiac rehabilitation. He denies chest pain, palpitations, shortness of breath, nausea, vomiting, dizziness or syncope. His chest tube drainage decreased to 120 mL and both chest tubes and temporary pacing wires are scheduled to be removed today. He requires 6 weeks of IV antibiotic therapy via PICC line. And currently on linezolid doxycycline and Zosyn. The patient's acute kidney injury is improving from creatinine improved to 1.6 down from 2.1 yesterday. He is tolerating his current antihypertensive regimen. His thrombocytopenia has resolved with platelet counts improving to 133 K, and he is now on fondaparinux 2.5 mg as Q daily per hematology guidance for anticoagulation, avoid heparin products. 03/08/25 The patient was evaluated at bedside this morning. He states he is doing good and continues to breathe comfortably on room air. He denies shortness of breath, dizziness, nausea, or chest pain but notes mild incisional chest discomfort, described as soreness or pressure, likely post-sternotomy musculoskeletal pain. He has been ambulating and participating in cardiac rehab with minimal support. He has no fevers or chills, is tolerating oral intake, and understands the plan for discharge. He has been weaned off all IV drips and oxygen. Urine output remains stable. Patient is aware that long-term oral antibiotic therapy is needed and that the block and case maker is helping arrange prescriptions given financial barriers. Cardiology, ID, and Hematology have cleared him for discharge from their respective standpoints. Antibiotic choice finalized as Linezolid 600 mg PO BID 4 weeks per ID. 03/09/25 Was evaluated at bedside today. He reports persistent, steady incisional chest pain following recent removal of chest tubes and pacing wires. The pain is described as dull and dragging located behind the sternum, without radiation and worsens with movement or deep inspiration. He denies chest pressure shortness of breath palpitation or fever. He remains hemodynamically stable breathing on room air and clinically improving overall. Renal function has improved, a llowing cautious trial of NSAIDs. Pain appears musculoskeletal in nature and consistent with post sternotomy discomfort. Case management continues working on obtaining4 weeks of oral antibiotic linezolid and discharge planning includes transitioning to warfarin with an INR goal of 2-3 for long-term anticoagulation post discharge. Because be evaluated other anticoagulation options but he is unfunded and he can not afford those. Count is 8.5 normal, hemoglobin is 7.4 Decreased from 8.5 monitoring no symp toms of active bleeding, hematocrit is at 22.5 low platelet count is improving from 1 not3 K yesterday to117 K today. CMP is within normal limits creatinine is 1.4 improving from 1.5 yesterday and chest x-ray no interval changes. REVIEW OF SYSTEMS CONSTITUTIONAL: Positive for fatigue, mild subjective fever. NEUROLOGICAL: Denies headache, amaurosis fugax, motor weakness, sensory deficit, vertigo/spinning sensation, gait abnormalities, or tremors. ENT: No hearing loss, otalgia, otorrhea, rhinitis, rhinorrhea, hoarseness, or sore throat. CARDIOVASCULAR: Palpitations, no angina. PULMONARY: Shortness of breath, cough, no hemoptysis. SLEEP: Denies morning headaches, daytime somnolence or napping. Denies difficulty falling asleep, staying asleep, waking from sleep. Denies knowledge of snoring. GASTROINTESTINAL: Denies any type of dysphagia to either liquids or solids. Denies nausea, vomiting, pyrosis, early satiety, abdominal pain, diarrhea, constipation, or changes in stool consistency or caliber. Denies coffee-ground emesis, hematemesis, hematochezia, or melanotic stools. GENITOURINARY: Denies frequency, urgency, nocturia, hematuria or incontinence (Storage/Irritative symptoms.) Low urinary stream, straining to void, urinary intermittency or hesitancy, splitting of the voiding stream, terminal dribbling. ENDOCRINOLOGIC: Denies polyuria, polydipsia, polyphagia or heat/cold intolerances. HEMATOLOGIC: Denies thrombophilia/previous clots, or coagulopathy/bleeding disorders. ONCOLOGIC: Denies personal history of malignancy. DERMATOLOGIC: Denies rashes or pruritus. PSYCHIATRIC: Denies any suicidal or homicidal ideation. Denies hallucinations. PHYSICAL EXAM GENERAL APPEARANCE ill appearing, alert, mildly agitated, in moderate respiratory distress. NEUROLOGICAL: Cranial nerves II-XII grossly intact. Motor is 5/5 in bilateral upper and lower extremities proximal to distal. No sensory deficits. HEENT: Face is symmetric. Pupils are equal and reactive. Extraocular movements are intact. NECK: Supple. No JVD. No thyromegaly. No submental, submandibular, pre- /postauricular, occipital or supraclavicular lymphadenopathy. CHEST: Normal chest expansion. No Telemetry. LUNGS: Expiratory wheeze and diffuse crackles bilaterally CARDIOVASCULAR: Regular. S1 and S2 normal. No appreciable rubs, murmurs or gallops. Tachycardia present ABDOMEN: Soft, nontender, and nondistended. There is no rebound, voluntary guarding, or rigidity. : Deferred. No Ortega. EXTREMITIES: Bilateral 2+ pitting edema, left knee warm swollen, limited ROM and pitting edema more on the left compared to right. SKIN: No skin breakdown. Vital Signs (last 8hr) Date Time Temp Pulse Resp B/P (MAP) Pulse Ox O2 Delivery O2 Flow Rate FiO2 03/09/25 13:56 79 18 03/09/25 12:00 97.9 71 18 113/79 100 Room Air 03/09/25 08:11 97.9 82 16 119/67 98 Room Air 03/09/25 07:10 77 18 N/A Room Air 21 03/09/25 07:09 77 18 LABS: Laboratory: Test 03/09/25 03:42 03/08/25 05:00 Range/Units White Blood Count 8.5 4.8-10.8 K/uL Red Blood Count 2.52 L 4.50-6.20 MIL/uL Hemoglobin 7.4 L 14.0-18.0 g/dL Hematocrit 22.5 L 42-54 % Mean Corpuscular Volume 89.3 79-99 fL Mean Corpuscular Hemoglobin 29.4 27.0-33.0 pg Mean Corpuscular Hemoglobin Concent 32.9 32.0-36.0 g/dL Red Cell Distribution Width 14.6 11.0-15.5 % Platelet Count 117 L 130-400 K/uL Mean Platelet Volume 11.4 H 7.5-10.5 fL Immature Granulocyte % (Auto) 0.2 0-1 % Neutrophils (%) (Auto) 58.4 40.0-77.0 % Lymphocytes (%) (Auto) 24.6 21.0-51.0 % Monocytes (%) (Auto) 10.5 3.0-13.0 % Eosinophils (%) (Auto) 5.6 0.0-8.0 % Basophils (%) (Auto) 0.7 0.0-5.0 % Neutrophils # (Auto) 4.9 1.8-7.7 K/uL Lymphocytes # (Auto) 2.1 1.0-4.8 K/uL Monocytes # (Auto) 0.9 0.1-1.0 K/uL Eosinophils # (Auto) 0.47 0.00-0.70 K/uL Basophils # (Auto) 0.06 0.00-0.20 K/uL Absolute Immature Granulocyte (auto 0.02 0-1 K/uL Nucleated Red Blood Cells 0.0 0.0-0.19 % Sodium Level 137 136-145 mmol/L Potassium Level 3.8 3.5-5.1 mmol/L Chloride Level 102 101-111 mmol/L Carbon Dioxide Level 26 21-32 mmol/L Blood Urea Nitrogen 16 7-18 mg/dL Creatinine 1.4 H 0.5-1.3 mg/dL Glomerular Filtration Rate Calc 64 >90 mL/min Random Glucose 129 H 70-105 mg/dL Total Calcium 8.1 L 8.5-10.1 mg/dL Total Bilirubin 0.4 0.2-1.0 mg/dL Aspartate Amino Transf (AST/SGOT) 12 10-37 U/L Alanine Aminotransferase (ALT/SGPT) < 6 L 12-78 U/L Alkaline Phosphatase 81 50-136 U/L Total Protein 5.8 L 6.0-8.3 g/dL Albumin 2.1 L 3.5-5.0 g/dL Magnesium Level 1.90 1.80-2.40 mg/dL Current Medications Medications (Trade) Dose Ordered Sig/Asya Route PRN Reason Start Time Stop Time Status Last Admin Dose Admin Acetaminophen (TYLenol 325MG TAB) 650 mg Q4H PRN PO Temp >38.3C(AFTER EXTUBATION) 03/02/25 15:00 04/01/25 14:59 Acetaminophen (TYLenol 325MG TAB) 650 mg Q6H PRN PO MILD PAIN (1-3) 03/03/25 09:00 04/02/25 08:59 03/09/25 10:44 650 MG Acetaminophen (TYLenol 650MG SUPPOSITORY) 650 mg Q4H PRN RC Temp >38.3C WHILE INTUBATED 03/02/25 15:00 04/01/25 14:59 Acetaminophen (acetaMINOPHEN) 1,000 mg Q6H IVPB 03/03/25 04:00 03/03/25 08:44 DC 03/03/25 04:17 1,000 MG Acetaminophen (acetaMINOPHEN) 1,000 mg Q6H6 IV 03/03/25 09:00 03/04/25 08:59 DC 03/04/25 06:32 1,000 MG Acetaminophen (acetaMINOPHEN) 1,000 mg Q6H6 IVPB 03/03/25 03:30 03/03/25 04:00 DC Acetaminophen/ Codeine Phosphate (TYLenol-coDEINE (120/12MG 5ML) ELIXIR) 10 ml Q4H PRN PO MODERATE PAIN (4-6) 02/25/25 15:30 02/25/25 15:16 DC Acetaminophen/ Hydrocodone Bitart (NORco 5/325MG) 1 tab Q6H PRN PO MODERATE PAIN (4-6) 02/23/25 23:00 02/28/25 22:59 DC 02/28/25 08:27 1 TAB Acetaminophen/ Hydrocodone Bitart (NORco 5/325MG) 1 tab Q6H PRN PO MODERATE PAIN (4-6) 03/01/25 00:30 03/02/25 14:57 DC 03/01/25 23:53 1 TAB Albumin Human 250 ml @ 0 mls/hr AD PRN IV IF HEMODYNAMICALLY UNSTABLE 03/02/25 15:00 Albumin Human 500 ml @ 0 mls/hr AD IV 03/03/25 01:30 03/03/25 08:52 DC 03/03/25 01:31 250 MLS/HR Albuterol (DUOneb) 1 UDVIAL [id number] IH 02/24/25 00:00 02/24/25 14:15 DC 02/24/25 07:08 1 UDVIAL Alteplase, Recombinant (CathFLO 2MG VIAL) 4 mg ONCE IVCATH 02/25/25 09:30 02/25/25 11:00 DC 02/25/25 10:44 4 MG Aminocaproic Acid 64610 mg/Sodium Chloride 310 ml @ 25 mls/hr AD IV 03/02/25 15:00 03/02/25 15:15 DC Aminocaproic Acid 40999 mg/Sodium Chloride 480 ml @ 0 mls/hr AD PRN IV BLEEDING CONTROL 03/02/25 08:30 03/07/25 15:20 DC Amlodipine Besylate (NorvASC 5MG TAB) 10 mg DAILY PO 03/06/25 09:00 04/05/25 08:59 03/09/25 10:44 10 MG Aspirin (Aspirin 81mg Ec Tab) 81 mg DAILY PO 02/25/25 09:00 03/27/25 08:59 03/09/25 10:44 81 MG Budesonide (Pulmicort 0.5 Mg/2ml) 0.5 mg BIDRESP IH 02/24/25 18:00 03/26/25 17:59 03/09/25 07:07 0.5 MG Bumetanide 40 ml @ 0 mls/hr AD IV 02/28/25 09:30 03/02/25 14:57 DC 03/02/25 06:01 1 MLS/HR Calcium Gluconate 1 gm/Sodium Chloride 60 ml @ 0 mls/hr AD PRN IV HYPOCALCEMIA 03/02/25 15:00 04/01/25 14:59 03/03/25 02:29 100 MLS/HR Cefazolin Sodium (Ancef) 2 gm ONCALL IVP 03/01/25 23:00 03/02/25 15:20 DC Cefazolin Sodium (Ancef) 2 gm Q8H IVPB 03/02/25 20:00 03/03/25 12:01 DC 03/03/25 14:04 2 GM Desmopressin Acetate 40 mcg/ Sodium Chloride 50 ml @ 100 mls/hr AD STAT IJ 03/02/25 17:44 03/02/25 18:13 DC Dexmedetomidine/ Sodium Chloride (PRECEdex 400MCG/ 100ML-NS) 400 mcg PROTOCOL IV 02/24/25 10:30 03/02/25 14:57 DC Dextrose (D50w) 50 ml AD PRN IV HYPOGLYCEMIA PROTOCOL 03/01/25 13:00 03/02/25 15:25 DC Dextrose (D50w) 50 ml AD PRN IV HYPOGLYCEMIA PROTOCOL 03/02/25 15:00 04/01/25 14:59 Docusate Sodium (COLace 100MG CAP) 100 mg BID PO 03/03/25 09:00 04/02/25 08:59 03/09/25 10:44 100 MG Doxycycline Hyclate (Doxycycline Hyclate) 100 mg BID PO 02/24/25 21:00 03/06/25 20:59 DC 03/06/25 07:59 100 MG Enoxaparin Sodium (Lovenox) 30 mg DAILY SQ 03/05/25 09:00 03/05/25 19:17 DC Epinephrine HCl 10 mg/Sodium Chloride 250 ml @ 0 mls/hr AD PRN IV TITRATE 03/02/25 08:30 03/07/25 15:20 DC Epinephrine HCl 10 mg/Sodium Chloride 250 ml @ 0 mls/hr AD PRN IV POST-OP CARDIOVASCULAR ORDERS 03/02/25 15:00 03/02/25 15:16 DC Famotidine (Pepcid 20mg Vial) 20 mg DAILY IV 03/03/25 09:00 03/06/25 07:40 DC 03/05/25 08:40 20 MG Folic Acid (FOLic ACID 1 MG TABLET) 1 mg DAILY PO 02/25/25 09:00 02/26/25 07:40 DC 02/25/25 09:07 1 MG Folic Acid (FOLic ACID 1 MG TABLET) 1 mg DAILY PO 02/25/25 09:00 03/27/25 08:59 03/09/25 10:44 1 MG Fondaparinux (Arixtra) 2.5 mg DAILY SQ 03/06/25 09:00 03/06/25 09:05 DC Fondaparinux (Arixtra) 2.5 mg DAILY SQ 03/07/25 09:00 04/06/25 08:59 03/09/25 10:45 2.5 MG Furosemide (LASix 20MG TAB) 20 mg BID@09,17 PO 03/04/25 09:00 03/06/25 08:42 DC 03/06/25 07:59 20 MG Furosemide (LASix 20MG TAB) 20 mg Q12H PO 03/04/25 09:00 03/03/25 08:54 DC Furosemide (LASix 20MG VIAL) 20 mg Q12H IV 03/03/25 09:00 03/03/25 08:54 DC Furosemide (LASix 20MG VIAL) 20 mg Q12H IV 03/03/25 09:00 03/04/25 08:59 DC 03/03/25 20:10 20 MG Furosemide (LASix 40MG TAB) 40 mg DAILY PO 03/08/25 09:00 04/07/25 08:59 03/09/25 10:43 40 MG Furosemide (LASix 40MG VIAL) 30 mg Q12H IV 03/06/25 09:00 03/07/25 21:01 DC 03/07/25 20:54 30 MG Furosemide (LASix 40MG VIAL) 40 mg Q12H IV 02/24/25 08:30 02/24/25 10:20 DC 02/24/25 09:34 40 MG Furosemide (LASix 40MG VIAL) 40 mg Q8H IV 02/24/25 16:30 02/28/25 09:13 DC 02/28/25 08:26 40 MG Glucagon (Glucagon 1mg Kit) 1 mg AD PRN IM HYPOGLYCEMIA PROTOCOL 03/01/25 13:00 03/02/25 15:38 DC Glucagon (Glucagon 1mg Kit) 1 mg AD PRN IM HYPOGLYCEMIA PROTOCOL 03/02/25 15:00 04/01/25 14:59 Heparin Sodium (Porcine) (HEParin 5,000 UNIT VIAL) 5,000 unit BID SQ 02/24/25 09:00 03/02/25 14:57 DC 03/01/25 20:22 5,000 UNIT Hydralazine HCl (APRESOLine 20MG INJ) 10 mg Q6H PRN IV ADMINISTER FOR SBP > 160 03/06/25 09:00 04/05/25 08:59 Insulin Human Regular 100 unit/ Sodium Chloride 100 ml @ 0 mls/hr AD IV 03/02/25 15:00 03/04/25 14:59 DC 03/02/25 19:17 4 MLS/HR Ipratropium Alden (AtrovENT UD) 0.5 MG [id number] IH 02/24/25 14:00 03/26/25 13:59 03/09/25 13:55 0.5 MG Lactulose (Constulose 20gm/ 30ml Udcup) 20 gm BID PRN PO CONSTIPATION 03/03/25 09:00 04/02/25 08:59 Linezolid 300 ml @ 150 mls/hr Q12H IV 02/24/25 11:00 03/06/25 10:59 DC 03/05/25 22:13 150 MLS/HR Linezolid 300 ml @ 150 mls/hr Q12H IV 03/06/25 12:30 03/16/25 12:29 03/09/25 12:59 150 MLS/HR Magnesium Hydroxide (Milk Of Magnesium 30ml) 30 ml DAILY PRN PO CONSTIPATION 03/03/25 09:00 04/02/25 08:59 Magnesium Sulfate 50 ml @ 12.5 mls/hr AD PRN IV MAG LEVEL LESS THAN 2.0 03/02/25 15:00 04/01/25 14:59 03/08/25 10:08 12.5 MLS/HR Magnesium Sulfate 50 ml @ 0 mls/hr PROTOCOL PRN IV low magnesium 02/25/25 11:00 03/02/25 14:57 DC 02/25/25 11:27 25 MLS/HR Melatonin (Melatonin) 10 mg HS PRN PO INSOMNIA 02/24/25 11:00 03/02/25 14:57 DC 03/01/25 23:53 10 MG Metolazone (zarOXOlyn) 5 mg DAILY PO 02/25/25 09:00 03/02/25 14:57 DC 03/01/25 14:49 5 MG Metoprolol Tartrate (loprESSOR) 12.5 mg BID PO 03/04/25 09:00 03/05/25 12:08 DC 03/05/25 08:41 12.5 MG Metoprolol Tartrate (loprESSOR) 25 mg BID PO 03/05/25 21:00 04/04/25 20:59 03/09/25 10:43 25 MG Montelukast Sodium (SinguLAIR) 10 mg DAILY PO 02/25/25 09:00 03/27/25 08:59 03/09/25 10:43 10 MG Morphine Sulfate (morPHINE 2MG SYG) 0.5 mg Q2H PRN IV MODERATE PAIN (4-6) 03/02/25 15:00 03/03/25 14:59 DC Morphine Sulfate (morPHINE 2MG SYG) 1 mg Q2H PRN IV SEVERE PAIN (7-10) 03/02/25 15:00 03/03/25 14:59 DC Nitroglycerin/ Dextrose 0 ml @ 0 mls/hr AD IV 03/02/25 15:00 03/05/25 14:59 DC Norepinephrine Bitartrate 250 ml @ 0 mls/hr AD PRN IV TITRATE 03/02/25 08:30 03/07/25 15:20 DC Norepinephrine Bitartrate 8 mg/ Dextrose 250 ml @ 0 mls/hr AD PRN IV POST-OP CARDIOVASCULAR ORDERS 03/02/25 15:00 03/02/25 15:16 DC Nystatin (NYSTatin 749152 UNIT/ML 5ML UDCUP) 5 ml QID PO 02/24/25 17:00 03/26/25 16:59 03/09/25 13:00 5 ML Ondansetron HCl (zoFRAN 4MG INJ) 4 mg Q6H PRN IV NAUSEA/VOMITING 03/02/25 15:00 04/01/25 14:59 03/05/25 21:06 4 MG Ondansetron HCl (zoFRAN 4MG INJ) 4 mg Q6H PRN IVP NAUSEA/VOMITING 02/24/25 21:00 03/02/25 14:57 DC 03/02/25 12:05 4 MG Pantoprazole Sodium (PROTonix 40MG INJ) 40 mg DAILY IVP 02/24/25 11:00 03/02/25 14:57 DC 03/02/25 11:54 40 MG Pharmacy Profile Note (Lace Assessment) 1 each AD MISC 02/24/25 10:30 02/24/25 10:32 DC Pharmacy Profile Note (Lace Assessment) 1 each AD MISC 02/25/25 15:30 02/25/25 15:17 DC Pharmacy Profile Note (Pharmacy Communication) 1 each ONCE MISC 02/23/25 23:00 02/23/25 23:48 DC Pharmacy Profile Note (Pharmacy Communication) 1 each ONCE MISC 02/25/25 15:30 02/25/25 15:17 DC Pharmacy Profile Note (Pharmacy Communication) 1 each ONCE MISC 03/06/25 12:30 03/06/25 12:17 DC Piperacillin Sod/ Tazobactam Sod (Zosyn 3.375gm+NS 50ml) 3.375 gm Q8H IV 02/24/25 05:00 03/06/25 04:59 DC 03/05/25 21:05 3.375 GM Piperacillin Sod/ Tazobactam Sod (Zosyn 3.375gm+NS 50ml) 3.375 gm Q8H IVPB 03/06/25 12:30 03/20/25 12:29 03/09/25 12:59 3.375 GM Potassium Phosphate 250 ml @ 42 mls/hr AD PRN IV LOW PHOS LEVEL 03/02/25 15:00 04/01/25 14:59 03/03/25 09:48 42 MLS/HR Potassium Chloride 100 ml @ 100 mls/hr AD PRN IV POTASSIUM PROTOCOL 02/25/25 11:00 02/27/25 10:47 DC 02/27/25 08:24 100 MLS/HR Potassium Chloride 100 ml @ 100 mls/hr AD PRN IV POTASSIUM PROTOCOL 02/25/25 11:00 03/02/25 14:57 DC 03/02/25 11:54 100 MLS/HR Potassium Chloride 100 ml @ 100 mls/hr AD PRN IV HYPOKALEMIA 03/02/25 15:00 04/01/25 14:59 03/06/25 05:21 100 MLS/HR Potassium Chloride (K-Dur 10meq Sr Tab) 10 meq AD PRN PO POTASSIUM PROTOCOL 02/27/25 11:00 03/02/25 14:57 DC 03/01/25 05:39 10 MEQ Potassium Chloride (K-Dur/Klor-Con 20meq) 10 meq AD PRN PO POTASSIUM PROTOCOL 02/25/25 11:00 02/27/25 10:48 DC Potassium Chloride (K-Dur/Klor-Con 20meq) 20 meq AD PRN PO POTASSIUM PROTOCOL 03/06/25 09:00 04/05/25 08:59 03/09/25 05:10 20 MEQ Potassium Chloride (K-Dur/Klor-Con 20meq) 20 meq DAILY PO 03/01/25 09:00 03/02/25 14:57 DC 03/01/25 14:50 20 MEQ Potassium Chloride (KCl 10% Elixir 20meq/15ml) 10 meq AD PRN PO POTASSIUM PROTOCOL 02/25/25 11:00 03/02/25 14:57 DC Propofol 100 ml @ 0 mls/hr AD PRN IV SEDATION 03/02/25 15:00 03/06/25 14:59 DC Sodium Bicarbonate (Sodium Bicarb 50meq 50ml Vial) 50 meq AD PRN IV OTHER[SEE DOSING INSTRUCTIONS] 03/02/25 15:00 03/05/25 14:59 DC 03/02/25 22:09 50 MEQ Sodium Chloride 500 ml @ 0 mls/hr AD IV 03/02/25 15:00 04/01/25 14:59 03/03/25 01:32 500 MLS/HR Sodium Chloride 500 ml @ 0 mls/hr Q0M IV 03/03/25 01:30 03/03/25 08:52 DC Sodium Chloride 1,000 ml @ 0 mls/hr Q0M IV 03/02/25 13:00 04/01/25 12:59 Sodium Chloride 1,000 ml @ 10 mls/hr ONCE IV 03/02/25 15:00 03/03/25 14:59 DC 03/02/25 15:00 10 MLS/HR Sodium Chloride 1,000 ml @ 75 mls/hr [id number] IV 02/23/25 20:00 02/23/25 23:03 DC 02/23/25 20:08 75 MLS/HR Sodium Chloride 1,000 ml @ 150 mls/hr Q6H40M IV 03/01/25 13:00 03/01/25 15:37 DC 03/01/25 14:50 150 MLS/HR Sodium Chloride (NS Flush 10ml) 10 ml Q8H PRN IVP IV LINE FLUSH 03/02/25 15:00 04/01/25 14:59 Thiamine HCl (Vitamin B-1) 100 mg DAILY PO 02/25/25 09:00 03/27/25 08:59 03/09/25 10:43 100 MG Tramadol HCl (UltRAM) 25 mg Q6H PRN PO MODERATE PAIN (4-6) 03/02/25 15:00 03/02/25 15:33 DC Tramadol HCl (UltRAM) 50 mg Q6H PRN PO SEVERE PAIN (7-10) 03/02/25 15:00 03/02/25 15:39 DC Tramadol HCl (UltRAM) 50 mg Q6H PRN PO MODERATE PAIN (4-6) 03/03/25 03:30 03/08/25 03:29 DC 03/07/25 12:42 50 MG Vancomycin HCl (Vancomycin Protocol) 1 each AD IV 02/23/25 19:00 02/23/25 19:33 DC Vasopressin 40 units/Sodium Chloride 40 ml @ 0 mls/hr PROTOCOL IV 03/03/25 01:30 03/07/25 15:20 DC Wound Care/ Dressing Products (Venelex Ointment) 1 APPLY BID BID TP 03/08/25 21:00 04/07/25 20:59 03/09/25 09:00 1 GM DIAGNOSTICS / RADIOLOGY: [ ] PATIENT: ADAM MOE III MR#: [id number] : 1980 SEX: M AGE: 44 LOCATION: 2AH ORDER 2300 STATUS: ADM IN REPORT#: [id number] SERVICE 0600 REASON: Congestive heart failure ORDERING PHYSICIAN: ARMANDO OTT MD PROCEDURE: CXR1VW - CHEST 1VW CHEST 1VW HISTORY: Congestive heart failure COMPARISON: 03/08/2025 FINDINGS: A frontal projection of the chest was obtained. There are bilateral pulmonary infiltrates suggestive of pulmonary vascular congestion with possible superimposed pneumonitis. Poststernotomy changes are seen. The heart is enlarged. Degenerative changes of the thoracolumbar spine are present. Degenerative changes are seen. No evidence of aortic calcification is seen. IMPRESSION: 1. Bilateral pulmonary infiltrates are seen suggestive of pulmonary vascular congestion with possible superimposed pneumonitis. No interval change is seen. DICTATED BY: CAROL HOWARD MD DATE: 03/09/25 124 ELECTRONICALLY SIGNED BY: CAROL HOWARD MD DATE: 03/09/25 1246 ASSESSMENT: gram positive bacteremia POA Sepsis, POA Pneumonia, POA Acute hypoxic respiratory failure on CPAP, ABG confirms PO2 less than 60 mmHg, POA Acute on chronic diastolic heart failure with exacerbation POA Acute kidney injury stage II, POA Non ST segment elevated PR, most likely type 2 PR secondary to oxygen ischemic POA ITP, POA Uncontrolled diabetes mellitus type 2, POA Diabetic nephropathy, POA Cocaine, alcohol and tobacco use disorder, POA Fidelina esophagitis, POA Matthews's cyst, hematoma, left knee, POA Electrolyte abnormalities, POA Chronic anemia, POA Severe aortic valve insufficiency secondary to infective endocarditis, with large non-coronary cusp vegetation (1.4 cm), EF preserved planned for aortic valve replacement [place] valve infective endocarditis, subacute, gram-positive (Micrococcus) and gram-negative (E. coli, Klebsiella) pathogens, on Zosyn, Linezolid, Doxycycline Bilateral multifocal pneumonia with superimposed pulmonary edema, improving cl inically, likely secondary to endocarditis and fluid overload Acute on chronic kidney injury, Hypokalemia Volume overload secondary to congestive heart failure and valvular disease, on diuresis Chronic normocytic anemia, New-onset diabetes mellitus type 2, poorly controlled, monitor glucose closely Electrolyte imbalance hyponatremia, hypokalemia, hypomagnesemia, on repletion protocol Proteinuria with diabetic nephropathy PLAN: CXR: Mild bilateral pulmonary infiltrates; likely pulmonary vascular congestion with superimposed pneumonitis, improved from prior Mild metabolic alkalosis likely due to diuretics and volume shift. Bioprosthetic valve function awaiting baseline postop echo. Continue metoprolol tartrate 12.5 mg b.i.d., continue [id number] mg p.o. daily Continue amlodipine5 mg daily. To remove his chest tube and temporary pacing wires today. Continue ambulation plus cardiac rehabilitation. Continue furosemide 20 mg IV q.12h for volume management. Infectious disease: * Repeat blood cultures if febrile or WBC rises ID on board * Continue Linezolid 600 mg PO BID 4 weeks * Arrange outpatient follow-up with ID * Monitor CBC weekly for Linezolid-induced cytopenia Pulmonary: Critical Care consult has been placed. Supplemental oxygen support, CPAP support and BiPAP setting as necessary to maintain SpO2 levels greater than 92 Budesonide, albuterol ipratropium nebulizations. Monitor ABGs, O2 sats, chest x-ray. Appreciate Pulmonary and critical Care consult suggestions. * Maintain O? via nasal cannula at 1L/min * Wean off as tolerated * Daily chest physiotherapy; monitor ABG Cardiovascular: * Continue Metoprolol tartrate 12.5 mg BID, Aspirin 81 mg daily * Continue Amlodipine 5 mg PO daily * Continue cardiac rehab and outpatient cardiology follow-up * TTE post-op baseline available or to be done outpatient Operative management for pain we optimized the trial of NSAIDs and opioids p.r.n. given renal recovery. With ibuprofen 400 mg time dose and an opioid with the morphine2 g IV 1 time dose. Awaiting case management assistance for discharge medication support. Monitor UOP P, daily weights. Continue Lasix 20 mg IV q.12h Continue telemetry monitoring Monitor for post-op arrhythmia, tamponade, ischemia Daily CXR Close hemodynamic monitoring with business liaison officer troponin, BNP. Continue telemetry monitoring * Monitor troponins and BNP; follow-up Echo post-op Renal/metabolic Monitor CR, BUN, GFR. Avoid nephrotoxins. Monitor glucose, proteinuria. Replete potassium, magnesium, phosphorus. for per facility protocol. * Strict I/Os, daily BMP * Replace K?, Mg? per protocol * Hold nephrotoxic meds PRN GI/nutrition Pantoprazole IV daily. Monitor for GI bleeding. Add thiamine, folate multivitamins if chronic alcohol use. 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 warfarin Musculoskeletal: Monitor left knee swelling Avoid NSAIDs due to BRENDAN. Ortho referral if worsening. Sedation/neuro: Precedex for sedation, taper as tolerated. Determine at bedtime for sleep hygiene. ICU delirium prevention with 3 orientation, mobility and lytes during the day. Endocrine: Glucose control with insulin. Monitor for ketones and TKA signs. Consider A1c when stable. Substance use: Assess for withdrawal. [facility] protocol p.r.n. if needed. Offered smoking cessation and substance abuse counseling. Discharge Planning: * Discharge today to home * Prescriptions for: * Linezolid 600 mg PO BID 4 weeks * Fondaparinux 2.5 mg SQ daily * Aspirin, Metoprolol, Amlodipine, Pantoprazole, Acetaminophen * Social work/block and case maker assisting with Linezolid cost * Outpatient follow-ups: * Cardiology * Infectious Disease * Primary Care * Hematology (HIT monitoring) Case management consult has been placed for further discharge planning. ATTESTATION BY PHYSICIAN I have seen and examined the patient. I reviewed the documentation, medical decision making, and treatment plan as noted by the resident above. I agree with the findings and plan of care. Benoit Martinez MD, RAGHAVA R MD Mar 09, 2025 15:24
--- NOTE | 2025-03-09 16:30 | PN ---
SUBJECTIVE: The patient is postop day #7 from minimally invasive aortic valve replacement for infectious endocarditis. The patient is doing well from a cardiac standpoint. He is now waiting to have arrangements made for outpatient antibiotics. Since the patient is on oral doxycycline and IV Zyvox, the Zyvox could be converted to p.o. and the patient could be discharged home. He would need another 4 weeks of antibiotics. Once his social issues for outpatient antibiotics are established from a cardiovascular surgery standpoint, the patient can be discharged home. TID: [id number] RECEIPT: [id number]
--- NOTE | 2025-03-09 19:11 | PN ---
[facility] PROGRESS NOTE Date Patient Seen: Mar 09, 2025 Time of Visit: 18:38 Supervising Physician: PHYLLIS MAKI MD Primary Care Physician: Self Referral Outpatient Specialists: Inpatient Consults: Dr Dumont PROBLEM LIST: - Acute Hypoxic respiratory failure POA Resolved -Acute on chronic diastolic heart failure w/ EF 50-55% on 2 D echo POA, resolving - [place] Valvular vegetation present 1.4cm & Severe Aortic regurgitation, s/p Aortic valve replacement 03/02/25 Acute thrombocytopenia, r/o HIT on Arixtra Severe multifocal bilateral Bacterial Pneumonia SCAP score 20 Points, sputum culture positive for E coli and Klebsiella, treated -Bilateral Pleural Effusions POA -Acute Cystitis POA, treated -Normocytic anemia -Acute on chronic CKD stage IIIb -Fidelina esophagitis identified on EGD done 01/11/2025 -Bacterial endocarditis affecting the aortic valve (1.81x1.17 cm mass attached to the noncoronary cusp leaflet) identified on DRAKE done 01/11/2025 -Left atrial appendage thrombus identified on DRAKE done 01/11/2025 -Elevated troponin (type II TX) -thrombocytosis on admission, now with thrombocytopenia -Liver cirrhosis MELD Score 22 Points ( 19.6 % Estimated 3 month Mortality) -cholelithiasis -Esophagitis by EGD 01/11/2025 -CAD s/p PCI with IA Integrilin, aspiration thrombectomy, PTCA, and KISHORE placement (Promus 4.0x16 mm) in the proximal LAD done on 12/19/2015 -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 He is awake alert and oriented x 3. He reports some breakthrough pain to movement to vertical sternal incision line. 1 x dose ibuprofen added to tylenol regimen. otherwise no other complains. HH trending down. CR improving. Cr 1.4 and GFR 64. Chest XR - Bilateral pulmonary infiltrates are seen suggestive of pulmonary vascular congestion with possible superimposed pneumonitis. No interval change is seen. Per strap stitcher he may continue with Arixtra while he is in the hospital and then he may DC it once Discharged. Platelets have improved. From pulmonary standpoint stable for DC. ABX per ID recommends Zyvox po. REVIEW OF SYSTEMS: General: No malaise or fever. Neurological: No fainting episodes or seizures. HEENT: No nasal congestion or nasal secretion. Respiratory: No cough, shortness of breath, or wheezing Cardiac: No chest pain or palpitations. Gastrointestinal: No vomiting or diarrhea. Genitourinary: No dysuria hematuria. Skin: No rashes or lesions. Hematological: No bruises or bleeding. Musculoskeletal: +Bilateral extremity swelling Psychiatric: No depression or panic attacks. PHYSICAL EXAM: GENERAL: alert, weak, awake oriented x 3, respiratory distress on room air saturating 97%. HEENT: EOMI, Sclera non icteric, moist mucosa NECK: Supple, no JVD, trachea midline LUNGS: Clear breath sounds bilaterally. No wheezes. Chest tube HEART: Regular rate and rhythm. Normal S1 and S2, without murmurs ABD: Obese Abdomen soft, nontender. Bowel sounds present EXT: No clubbing cyanosis 2+ bilateral lower extremity edema NEURO: Alert and oriented to person, follows commands Vital Signs (last 8hr) Date Time Temp Pulse Resp B/P (MAP) Pulse Ox O2 Delivery O2 Flow Rate FiO2 03/09/25 16:36 98.4 90 18 130/82 100 Room Air 03/09/25 13:56 79 18 03/09/25 12:00 97.9 71 18 113/79 100 Room Air LABS: Hematology Labs: Test 03/09/25 03:42 Range/Units White Blood Count 8.5 4.8-10.8 K/uL Red Blood Count 2.52 L 4.50-6.20 MIL/uL Hemoglobin 7.4 L 14.0-18.0 g/dL Hematocrit 22.5 L 42-54 % Mean Corpuscular Volume 89.3 79-99 fL Mean Corpuscular Hemoglobin 29.4 27.0-33.0 pg Mean Corpuscular Hemoglobin Concent 32.9 32.0-36.0 g/dL Red Cell Distribution Width 14.6 11.0-15.5 % Platelet Count 117 L 130-400 K/uL Mean Platelet Volume 11.4 H 7.5-10.5 fL Immature Granulocyte % (Auto) 0.2 0-1 % Neutrophils (%) (Auto) 58.4 40.0-77.0 % Lymphocytes (%) (Auto) 24.6 21.0-51.0 % Monocytes (%) (Auto) 10.5 3.0-13.0 % Eosinophils (%) (Auto) 5.6 0.0-8.0 % Basophils (%) (Auto) 0.7 0.0-5.0 % Neutrophils # (Auto) 4.9 1.8-7.7 K/uL Lymphocytes # (Auto) 2.1 1.0-4.8 K/uL Monocytes # (Auto) 0.9 0.1-1.0 K/uL Eosinophils # (Auto) 0.47 0.00-0.70 K/uL Basophils # (Auto) 0.06 0.00-0.20 K/uL Absolute Immature Granulocyte (auto 0.02 0-1 K/uL Nucleated Red Blood Cells 0.0 0.0-0.19 % Chemistry Labs: Test 03/09/25 03:42 03/08/25 05:00 Range/Units Sodium Level 137 136-145 mmol/L Potassium Level 3.8 3.5-5.1 mmol/L Chloride Level 102 101-111 mmol/L Carbon Dioxide Level 26 21-32 mmol/L Blood Urea Nitrogen 16 7-18 mg/dL Creatinine 1.4 H 0.5-1.3 mg/dL Glomerular Filtration Rate Calc 64 >90 mL/min Random Glucose 129 H 70-105 mg/dL Total Calcium 8.1 L 8.5-10.1 mg/dL Total Bilirubin 0.4 0.2-1.0 mg/dL Aspartate Amino Transf (AST/SGOT) 12 10-37 U/L Alanine Aminotransferase (ALT/SGPT) < 6 L 12-78 U/L Alkaline Phosphatase 81 50-136 U/L Total Protein 5.8 L 6.0-8.3 g/dL Albumin 2.1 L 3.5-5.0 g/dL Magnesium Level 1.90 1.80-2.40 mg/dL DIAGNOSTICS / RADIOLOGY RESULTS: [ ] IMAGING REPORT Signed PATIENT: ADAM MOE III MR#: [id number] : 1980 SEX: M AGE: 44 LOCATION: [facility] ORDER 99 STATUS: ADM IN REPORT#: [id number] SERVICE 0600 REASON: Congestive heart failure ORDERING PHYSICIAN: ARMANDO OTT MD PROCEDURE: CXR1VW - CHEST 1VW CHEST 1VW HISTORY: Congestive heart failure COMPARISON: 03/08/2025 FINDINGS: A frontal projection of the chest was obtained. There are bilateral pulmonary infiltrates suggestive of pulmonary vascular congestion with possible superimposed pneumonitis. Poststernotomy changes are seen. The heart is enlarged. Degenerative changes of the thoracolumbar spine are present. Degenerative changes are seen. No evidence of aortic calcification is seen. IMPRESSION: 1. Bilateral pulmonary infiltrates are seen suggestive of pulmonary vascular congestion with possible superimposed pneumonitis. No interval change is seen. DICTATED BY: CAROL HOWARD MD DATE: 03/09/251242 ELECTRONICALLY SIGNED BY: CAROL HOWARD MD DATE: 03/09/251245 PLAN Maintain O2 sats above 92%. CV has cleared for DC once antibiotics for DC has been set up. Per ID ok to DC with zyvox po Follow CT surgeon recommendations Multimodal pain management Monitoring H&H Incentive spirometry q 1 hr Glycemic control with goal of 80-180 monitor electrolytes: K Goal of 4 Magnesium goal of 2 Replace accordingly NEURO: Minimize central acting medications as possible. Maintain fall precautions, adequate lighting during the day PULMONARY: Supplemental 02 as needed. Maintain aspiration precautions at all times CARDIOVASCULAR: Follow hemodynamics. Vital signs per facility protocol GI & NUTRITION: Continue with nutritional support. Continue stool softeners and laxatives as needed. KIDNEYS & ELECTROLYTES: Strict monitoring of intake, output and overall fluid balance. Avoid nephrotoxic medications to the extent possible. Medications to be dosed according to renal function. Monitor electrolytes and replace as needed ENDOCRINE: Maintain blood glucose between 100-180 at all times. Hypoglycemia protocol in place INFECTIOUS DISEASE: Trend temperature, WBC and procalcitonin level Follow cultures, deescalate antibiotics as soon as possible. Panculture if new onset fever ONCOLOGY/HEMATOLOGY/COAGULATION: Monitor for s/s of bleeding Monitor hemoglobin, coagulation studies as needed SKIN: Pressure ulcer prevention per facility protocol Specialty mattress ORTHO/REHAB: Continue PT/OT Prophylaxis: Continue GI and DVT prophylaxis Code Status: Full Resuscitation Disposition: Per primary team Other: Case discussed with supervising physician plan of care agreed upon Time spent on care including review of chart, discussion of plan with patient and discussion with nursing staff exceeds 30 minutes. This does not include any billable procedures performed. JO DAVID [facility] Mar 09, 2025 19:11
[2025-03-10] VITALS (7 sets, daily range): BP systolic 118–133; BP diastolic 64–71; PULSE 77–97; RESP 17–18; TEMP 97–98.5; O2SAT 98–100
[2025-03-10 04:13] LABS: BASOPHILS # (AUTO) 0.08 K/uL (0.00-0.20); BASOPHILS % (AUTO) 0.9 % (0.0-5.0); EOSINOPHILS # (AUTO) 0.69 K/uL (0.00-0.70); EOSINOPHILS % (AUTO) 8.1 % (0.0-8.0); HEMATOCRIT 21.1 % (42-54); IMMATURE GRANULOCYTE ABSOLUTE 0.04 K/uL (0-1); LYMPHOCYTES % (AUTO) 23.6 % (21.0-51.0); MEAN CORPUSCULAR HEMOGLOBIN 29.9 pg (27.0-33.0); MEAN CORPUSCULAR HGB CONC 33.2 g/dL (32.0-36.0); MEAN CORPUSCULAR VOLUME 90.2 fL (79-99); MONOCYTES % (AUTO) 11.3 % (3.0-13.0); NEUTROPHILS # (AUTO) 4.7 K/uL (1.8-7.7); NEUTROPHILS % (AUTO) 55.6 % (40.0-77.0); PLATELET COUNT (AUTO) 121 K/uL (130-400); RED BLOOD CELL COUNT(AUTO) 2.34 MIL/uL (4.50-6.20); WHITE BLOOD COUNT (AUTO) 8.5 K/uL (4.8-10.8)
[2025-03-10 04:30] LABS: ALBUMIN 2.1 g/dL (3.5-5.0); ASPARTATE AMINOTRANSFERASE 12 U/L (10-37); BILIRUBIN,TOTAL 0.3 mg/dL (0.2-1.0); CARBON DIOXIDE 22 mmol/L (21-32); CHLORIDE 104 mmol/L (101-111); CREATININE 1.3 mg/dL (0.5-1.3); GLOMERULAR FILTR. RATE CALC 69 mL/min (>90); GLUCOSE,RANDOM 127 mg/dL (70-105); POTASSIUM 3.9 mmol/L (3.5-5.1); SODIUM SERUM 138 mmol/L (136-145); TOTAL PROTEIN, SERUM 5.8 g/dL (6.0-8.3); UREA NITROGEN, BLOOD 17 mg/dL (7-18)
[2025-03-10 04:39] LABS: ALANINE AMINOTRANSFERASE < 6 U/L (12-78)
[2025-03-10 08:16] LABS: HEMATOCRIT 22.3 % (42-54)
--- NOTE | 2025-03-10 08:29 | PN ---
[facility] CARDIOLOGY PROGRESS NOTE Date Patient Seen: Mar 10, 2025 Time of Visit: 08:28 Interval History: [s/p AVR 03/02. Hb dropped to 7.0, now improved to 7.4. Physical Examination: GENERAL: [No acute distress.] HEAD: [Normal with no signs of head trauma.] EYES: [PERRLA, EOMI, conjunctiva and sclera normal.] ENT: [Hearing grossly intact, normal oropharynx.] NECK: [Supple without JVD. There is no tenderness, lymphadenopathy, or masses. No thyromegaly. Normal carotid upstrokes without bruits.] LUNGS: [Clear breath sounds bilaterally. There are right basilar rales one third of the way up the chest. No wheezes, or rhonchi.] HEART: [Normal rate and rhythm. ] VASC: [Peripheral pulses +2 bilaterally.] ABD: [Bowel sounds normal, soft, nontender, no masses, no organomegaly. No audible bruits.] NEURO: [Awake, alert, and oriented x3. No focal sensory or strength deficits noted.] Laboratory: [ ] Hematology Labs: Test 03/10/25 07:52 03/10/25 03:51 Range/Units Hemoglobin 7.4 L 14.0-18.0 g/dL Hematocrit 22.3 L 42-54 % White Blood Count 8.5 4.8-10.8 K/uL Red Blood Count 2.34 L 4.50-6.20 MIL/uL Mean Corpuscular Volume 90.2 79-99 fL Mean Corpuscular Hemoglobin 29.9 27.0-33.0 pg Mean Corpuscular Hemoglobin Concent 33.2 32.0-36.0 g/dL Red Cell Distribution Width 15.0 11.0-15.5 % Platelet Count 121 L 130-400 K/uL Mean Platelet Volume 11.1 H 7.5-10.5 fL Immature Granulocyte % (Auto) 0.5 0-1 % Neutrophils (%) (Auto) 55.6 40.0-77.0 % Lymphocytes (%) (Auto) 23.6 21.0-51.0 % Monocytes (%) (Auto) 11.3 3.0-13.0 % Eosinophils (%) (Auto) 8.1 H 0.0-8.0 % Basophils (%) (Auto) 0.9 0.0-5.0 % Neutrophils # (Auto) 4.7 1.8-7.7 K/uL Lymphocytes # (Auto) 2.0 1.0-4.8 K/uL Monocytes # (Auto) 1.0 0.1-1.0 K/uL Eosinophils # (Auto) 0.69 0.00-0.70 K/uL Basophils # (Auto) 0.08 0.00-0.20 K/uL Absolute Immature Granulocyte (auto 0.04 0-1 K/uL Nucleated Red Blood Cells 0.0 0.0-0.19 % Chemistry Labs: Test 03/10/25 03:51 Range/Units Sodium Level 138 136-145 mmol/L Potassium Level 3.9 3.5-5.1 mmol/L Chloride Level 104 101-111 mmol/L Carbon Dioxide Level 22 21-32 mmol/L Blood Urea Nitrogen 17 7-18 mg/dL Creatinine 1.3 0.5-1.3 mg/dL Glomerular Filtration Rate Calc 69 >90 mL/min Random Glucose 127 H 70-105 mg/dL Total Calcium 8.2 L 8.5-10.1 mg/dL Total Bilirubin 0.3 0.2-1.0 mg/dL Aspartate Amino Transf (AST/SGOT) 12 10-37 U/L Alanine Aminotransferase (ALT/SGPT) < 6 L 12-78 U/L Alkaline Phosphatase 79 50-136 U/L Total Protein 5.8 L 6.0-8.3 g/dL Albumin 2.1 L 3.5-5.0 g/dL Diagnostics / Radiology: [Copy/Paste Echos/Imaging Report here] Impression and Plan: [-severe AI, secondary to endocarditis -2D echo on 02/24, EF 60-65%, demonstrating with severe AI, 1.4 cm aortic leaflet vegetation -Acute on chronic diastolic heart failure -PNA -UTI -Normocytic anemia -Acute on chronic CKD stage IIIb, baseline creatinine of 2 -Fidelina esophagitis identified on EGD done 01/11/2025 -Bacterial endocarditis affecting the aortic valve (1.81x1.17 cm mass attached to the noncoronary cusp leaflet) identified on DRAKE done 01/11/2025 -Lactic acidosis, improving -Left atrial appendage thrombus identified on DRAKE done 01/11/2025, not currently an anticoagulation due to thrombocytopenia -Normal LV systolic function (LVEF: 60-65% by echo done 01/11/2025) -Elevated troponin (type II MT), peaking in the 400s -History of ITP in 12/2024 -Liver cirrhosis -Esophagitis by EGD 01/11/2025 -CAD s/p PCI with IA Integrilin, aspiration thrombectomy, PTCA, and KISHORE placement (Promus 4.0x16 mm) in the proximal LAD done on 12/19/2015 -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 Troponins have been elevated in the 200-400 range. Normal [facility] s/p AVR 03/02 Evans Hilario MD] EVANS HILARIO MD Mar 10, 2025 08:29
--- NOTE | 2025-03-10 12:49 | HMCIMG ---
CHEST 1VW HISTORY: Congestive heart failure COMPARISON: 03/09/2025 FINDINGS: A frontal projection of the chest was obtained. Mild bilateral pulmonary infiltrates are seen may be related to mild pulmonary vascular congestion with possible superimposed pneumonitis. Poststernotomy changes are seen. The heart is enlarged. Degenerative changes of the thoracolumbar spine are present. Degenerative changes are seen. IMPRESSION: 1. Mild bilateral pulmonary infiltrates are seen may be related to mild pulmonary vascular congestion with possible superimposed pneumonitis.
[2025-03-10] MEDS: morPHINE 2 MG SYG IVP ONE (12:59)
--- NOTE | 2025-03-10 13:24 | PN ---
54-year-old male with a complex medical history including recent hospitalization with a Gram-positive bacteremia secondary to Staph aureus, severe sepsis and endocarditis with echogenic vegetations on noncoronary cusps and right coronary cusp as well as left atrial appendage clot on January 11, 2025 presented to the ED days history of worsening shortness of breath. He was discharged on January 31, 2025 with long-term IV linezolid via PICC line for infective endocarditis. Patient actually was found to have endocarditis. With the patient in the obese acute aortic insufficiency status post surgery. Patient with bacteremia receiving antibiotic treatment. Patient with anemia and thrombocytopenia. It seems the patient is suspicious of having heparin-induced thrombocytopenia. Patient was started on Arixtra 2.5 mg subcu daily. Platelet count improved. Platelet count today is 117K. There is no obvious bleeding. Patient actually moving around and there is plan may be to discharge him then he could receive antibiotic treatment as outpatient PHYSICAL EXAM GENERAL APPEARANCE ill appearing, alert NEUROLOGICAL: Cranial nerves II-XII grossly intact. Motor is 5/5 in bilateral upper and lower extremities proximal to distal. No sensory deficits. HEENT: Face is symmetric. Pupils are equal and reactive. Extraocular movements are intact. NECK: Supple. No JVD. No thyromegaly. No submental, submandibular, pre- /postauricular, occipital or supraclavicular lymphadenopathy. CHEST: Chest tube in place. LUNGS: Decreased air entry bilaterally CARDIOVASCULAR: Regular. S1 and S2 normal. No appreciable rubs, murmurs or gallops. Tachycardia present ABDOMEN: Soft, nontender, and nondistended. There is no rebound, voluntary guarding, or rigidity. : Deferred. No Ortega. SKIN: No skin breakdown. Assessment 1. Anemia 2. Thrombocytopenia. Platelet count improved. 3. Severe aortic valve insufficiency due to endocarditis s/p surgery 4. Possibility of heparin-induced thrombocytopenia 5. Gram-positive bacteremia 6. Cocaine abuse 7. Acute on chronic renal failure 8. Acute respiratory failure with the patient is improving. 9. Diabetes mellitus Plan 1. If this patient to stay in the hospital we will continue Arixtra. If the patient is going home and he will need anticoagulation we could do a use Pradaxa 150 mg p.o. twice daily for 1 month. I will try to see if I have samples of Pradaxa if not maybe I could have samples of Xarelto 20 mg p.o. daily for disease Close a heparin-induced thrombocytopenia the treatment usually is for 1 month. But from cardiology point review of symptoms this patient will need treatment for longer time. 2. There was hypersegmented neutrophils. This patient to Continue on folic acid 1 mg p.o. daily and vitamin B12 1000 mcg p.o. daily. 3. 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 We asked for SPEP, UPEP and free light chain. If there is monoclonal protein we will do a bone marrow biopsy. 4. Continue antibiotic treatment as per infectious disease specialist Vitals/Labs Vital Signs Date Time Temp Pulse Resp B/P (MAP) Pulse Ox O2 Delivery O2 Flow Rate FiO2 03/10/25 08:00 98.4 88 18 133/67 99 Room Air 03/10/25 07:10 21 03/09/25 20:00 0 Laboratory Tests 03/10/25 03:51 03/10/25 07:52 Medications Current Medications Vancomycin HCl 1 each AD IV; Start 02/23/25 at 19:00; Stop 02/23/25 at 19:33; Status DC Piperacillin Sod/ Tazobactam Sod 3.375 gm ONCE ONCE IV Last administered on 02/23/25at 19:58; Start 02/23/25 at 19:00; Stop 02/23/25 at 19:01; Status DC Vancomycin HCl 500 ml @ 250 mls/hr ONCE ONCE IV; Start 02/23/25 at 19:30; Stop 02/23/25 at 19:34; Status DC Sodium Chloride 1,000 ml @ 0 mls/hr ONCE ONCE IV Last administered on 02/23/25at 19:58; Start 02/23/25 at 20:00; Stop 02/23/25 at 19:58; Status DC Sodium Chloride 500 ml @ 0 mls/hr ONCE ONCE IV; Start 02/23/25 at 20:00; Stop 02/23/25 at 20:01; Status DC Sodium Chloride 1,000 ml @ 75 mls/hr [id number] IV Last administered on 02/23/25at 20:08; Start 02/23/25 at 20:00; Stop 02/23/25 at 23:03; Status DC Furosemide 40 mg ONCE ONCE IV Last administered on 02/23/25at 20:10; Start 02/23/25 at 20:00; Stop 02/23/25 at 20:01; Status DC Piperacillin Sod/ Tazobactam Sod 3.375 gm Q8H IV Last administered on 03/05/25at 21:05; Start 02/24/25 at 05:00; Stop 03/06/25 at 04:59; Status DC Pharmacy Profile Note 1 each ONCE MISC; Start 02/23/25 at 23:00; Stop 02/23/25 at 23:48; Status DC Acetaminophen/ Hydrocodone Bitart 1 tab Q6H PRN PO Last administered on 02/28/25at 08:27; Start 02/23/25 at 23:00; Stop 02/28/25 at 22:59; Status DC Heparin Sodium (Porcine) 5,000 unit BID SQ Last administered on 03/01/25at 20:22; Start 02/24/25 at 09:00; Stop 03/02/25 at 14:57; Status DC Albuterol 1 UDVIAL [id number] IH Last administered on 02/24/25at 07:08; Start 02/24/25 at 00:00; Stop 02/24/25 at 14:15; Status DC Hydroxyzine HCl 25 mg ONCE ONCE PO Last administered on 02/24/25at 00:55; Start 02/24/25 at 00:30; Stop 02/24/25 at 00:39; Status DC Linezolid 300 ml @ 150 mls/hr ONCE ONCE IV Last administered on 02/24/25at 00:55; Start 02/24/25 at 01:00; Stop 02/24/25 at 02:59; Status DC Furosemide 40 mg Q12H IV Last administered on 02/24/25at 09:34; Start 02/24/25 at 08:30; Stop 02/24/25 at 10:20; Status DC Pharmacy Profile Note 1 each AD MISC; Start 02/24/25 at 10:30; Stop 02/24/25 at 10:32; Status DC Doxycycline Hyclate 100 mg BID PO Last administered on 03/06/25at 07:59; Start 02/24/25 at 21:00; Stop 03/06/25 at 20:59; Status DC Furosemide 40 mg Q8H IV Last administered on 02/28/25at 08:26; Start 02/24/25 at 16:30; Stop 02/28/25 at 09:13; Status DC Dexmedetomidine/ Sodium Chloride 400 mcg PROTOCOL IV; Start 02/24/25 at 10:30; Stop 03/02/25 at 14:57; Status DC Ipratropium [place] 0.5 MG [id number] IH Last administered on 03/09/25at 13:55; Start 02/24/25 at 14:00; Stop 03/26/25 at 13:59 Budesonide 0.5 mg BIDRESP IH Last administered on 03/09/25at 07:07; Start 02/24/25 at 18:00; Stop 03/26/25 at 17:59 Montelukast Sodium 10 mg DAILY PO Last administered on 03/10/25at 10:12; Start 02/25/25 at 09:00; Stop 03/27/25 at 08:59 Linezolid 300 ml @ 150 mls/hr Q12H IV Last administered on 03/05/25at 22:13; Start 02/24/25 at 11:00; Stop 03/06/25 at 10:59; Status DC Metolazone 5 mg DAILY PO Last administered on 03/01/25at 14:49; Start 02/25/25 at 09:00; Stop 03/02/25 at 14:57; Status DC Folic Acid 1 mg DAILY PO Last administered on 02/25/25at 09:07; Start 02/25/25 at 09:00; Stop 02/26/25 at 07:40; Status DC Melatonin 10 mg HS PRN PO Last administered on 03/01/25at 23:53; Start 02/24/25 at 11:00; Stop 03/02/25 at 14:57; Status DC Pantoprazole Sodium 40 mg DAILY IVP Last administered on 03/02/25at 11:54; Start 02/24/25 at 11:00; Stop 03/02/25 at 14:57; Status DC Aspirin 81 mg DAILY PO Last administered on 03/10/25at 10:11; Start 02/25/25 at 09:00; Stop 03/27/25 at 08:59 Folic Acid 1 mg DAILY PO Last administered on 03/10/25at 10:12; Start 02/25/25 at 09:00; Stop 03/27/25 at 08:59 Thiamine HCl 100 mg DAILY PO Last administered on 03/10/25at 10:12; Start 02/25/25 at 09:00; Stop 03/27/25 at 08:59 Nystatin 5 ml QID PO Last administered on 03/10/25at 12:47; Start 02/24/25 at 17:00; Stop 03/26/25 at 16:59 Ondansetron HCl 4 mg Q6H PRN IVP Last administered on 03/02/25at 12:05; Start 02/24/25 at 21:00; Stop 03/02/25 at 14:57; Status DC Promethazine HCl 25 mg ONCE ONCE IM Last administered on 02/24/25at 21:11; Start 02/24/25 at 21:00; Stop 02/24/25 at 21:05; Status DC Alteplase, Recombinant 4 mg ONCE IVCATH Last administered on 02/25/25at 10:44; Start 02/25/25 at 09:30; Stop 02/25/25 at 11:00; Status DC Potassium Chloride 100 ml @ 100 mls/hr AD PRN IV Last administered on 02/27/25at 08:24; Start 02/25/25 at 11:00; Stop 02/27/25 at 10:47; Status DC Potassium Chloride 10 meq AD PRN PO; Start 02/25/25 at 11:00; Stop 03/02/25 at 14:57; Status DC Potassium Chloride 10 meq AD PRN PO; Start 02/25/25 at 11:00; Stop 02/27/25 at 10:48; Status DC Potassium Chloride 100 ml @ 100 mls/hr AD PRN IV Last administered on 03/02/25at 11:54; Start 02/25/25 at 11:00; Stop 03/02/25 at 14:57; Status DC Magnesium Sulfate 50 ml @ 0 mls/hr PROTOCOL PRN IV Last administered on 02/25/25at 11:27; Start 02/25/25 at 11:00; Stop 03/02/25 at 14:57; Status DC Pharmacy Profile Note 1 each AD MISC; Start 02/25/25 at 15:30; Stop 02/25/25 at 15:17; Status DC Pharmacy Profile Note 1 each ONCE MISC; Start 02/25/25 at 15:30; Stop 02/25/25 at 15:17; Status DC Acetaminophen/ Codeine Phosphate 10 ml Q4H PRN PO; Start 02/25/25 at 15:30; Stop 02/25/25 at 15:16; Status DC Potassium Chloride 40 meq ONCE ONCE PO Last administered on 02/25/25at 21:44; Start 02/25/25 at 22:00; Stop 02/25/25 at 22:01; Status DC Potassium Chloride 40 meq ONCE ONCE PO Last administered on 02/27/25at 05:53; Start 02/27/25 at 05:30; Stop 02/27/25 at 05:32; Status DC Potassium Chloride 10 meq AD PRN PO Last administered on 03/01/25at 05:39; Start 02/27/25 at 11:00; Stop 03/02/25 at 14:57; Status DC Potassium Chloride 20 meq DAILY PO Last administered on 03/01/25at 14:50; Start 03/01/25 at 09:00; Stop 03/02/25 at 14:57; Status DC Bumetanide 40 ml @ 0 mls/hr AD IV Last administered on 03/02/25at 06:01; Start 02/28/25 at 09:30; Stop 03/02/25 at 14:57; Status DC Acetaminophen/ Hydrocodone Bitart 1 tab Q6H PRN PO Last administered on 03/01/25at 23:53; Start 03/01/25 at 00:30; Stop 03/02/25 at 14:57; Status DC Heparin Sodium/ Sodium Chloride 1,000 ml @ As Directed STK-MED ONCE IV; Start 03/01/25 at 11:25; Stop 03/01/25 at 11:25; Status DC Lidocaine HCl 20 ml STK-MED ONCE .ROUTE; Start 03/01/25 at 11:26; Stop 03/01/25 at 11:27; Status DC Heparin Sodium (Porcine) 10,000 unit STK-MED ONCE .ROUTE; Start 03/01/25 at 11:27; Stop 03/01/25 at 11:27; Status DC Nitroglycerin 50 mg STK-MED ONCE .ROUTE; Start 03/01/25 at 11:27; Stop 03/01/25 at 11:27; Status DC Iohexol 35,000 mg STK-MED ONCE IV; Start 03/01/25 at 11:30; Stop 03/01/25 at 11:31; Status DC Verapamil HCl 5 mg STK-MED ONCE .ROUTE; Start 03/01/25 at 11:40; Stop 03/01/25 at 11:41; Status DC Fentanyl Citrate 100 mcg STK-MED ONCE .ROUTE; Start 03/01/25 at 12:02; Stop 03/01/25 at 12:02; Status DC Midazolam HCl 2 mg STK-MED ONCE .ROUTE; Start 03/01/25 at 12:02; Stop 03/01/25 at 12:02; Status DC Sodium Chloride 1,000 ml @ 150 mls/hr Q6H40M IV Last administered on 03/01/25at 14:50; Start 03/01/25 at 13:00; Stop 03/01/25 at 15:37; Status DC Dextrose 50 ml AD PRN IV; Start 03/01/25 at 13:00; Stop 03/02/25 at 15:25; Status DC Glucagon 1 mg AD PRN IM; Start 03/01/25 at 13:00; Stop 03/02/25 at 15:38; Status DC Cefazolin Sodium 2 gm ONCALL IVP; Start 03/01/25 at 23:00; Stop 03/02/25 at 15:20; Status DC Epinephrine HCl 10 mg/Sodium Chloride 250 ml @ 0 mls/hr AD PRN IV; Start 03/02/25 at 08:30; Stop 03/07/25 at 15:20; Status DC Norepinephrine Bitartrate 250 ml @ 0 mls/hr AD PRN IV; Start 03/02/25 at 08:30; Stop 03/07/25 at 15:20; Status DC Aminocaproic Acid 94617 mg/Sodium Chloride 480 ml @ 0 mls/hr AD PRN IV; Start 03/02/25 at 08:30; Stop 03/07/25 at 15:20; Status DC Sodium Chloride 1,000 ml @ As Directed STK-MED ONCE IV Last administered on 03/02/25at 12:44; Start 03/02/25 at 12:34; Stop 03/02/25 at 12:34; Status DC Sodium Chloride 1,000 ml @ 0 mls/hr Q0M IV; Start 03/02/25 at 13:00; Stop 04/01/25 at 12:59 Nitroglycerin/ Dextrose 1 ml @ As Directed STK-MED ONCE .ROUTE; Start 03/02/25 at 13:06; Stop 03/02/25 at 13:06; Status DC Sodium Bicarbonate 100 ml @ As Directed STK-MED ONCE .ROUTE; Start 03/02/25 at 13:26; Stop 03/02/25 at 13:26; Status DC Cefazolin Sodium 1 gm STK-MED ONCE .ROUTE; Start 03/02/25 at 13:39; Stop 03/02/25 at 13:39; Status DC Heparin Sodium/ Sodium Chloride 500 ml @ As Directed STK-MED ONCE IV; Start 03/02/25 at 13:39; Stop 03/02/25 at 13:40; Status DC Protamine Sulfate 250 mg STK-MED ONCE IV; Start 03/02/25 at 14:02; Stop 03/02/25 at 14:02; Status DC Lidocaine HCl 100 mg STK-MED ONCE .ROUTE; Start 03/02/25 at 14:02; Stop 03/02/25 at 14:02; Status DC Heparin Sodium (Porcine) 10,000 unit STK-MED ONCE .ROUTE; Start 03/02/25 at 14:02; Stop 03/02/25 at 14:02; Status DC Epinephrine HCl 1 mg STK-MED ONCE .ROUTE; Start 03/02/25 at 14:02; Stop 03/02/25 at 14:02; Status DC Sodium Bicarbonate 200 ml @ As Directed STK-MED ONCE .ROUTE; Start 03/02/25 at 14:02; Stop 03/02/25 at 14:02; Status DC Norepinephrine Bitartrate 4 mg STK-MED ONCE IV; Start 03/02/25 at 14:02; Stop 03/02/25 at 14:02; Status DC Propofol 200 mg STK-MED ONCE IV; Start 03/02/25 at 14:02; Stop 03/02/25 at 14:03; Status DC Fentanyl Citrate 1,000 mcg STK-MED ONCE IJ; Start 03/02/25 at 14:02; Stop 03/02/25 at 14:03; Status DC Midazolam HCl 2 mg STK-MED ONCE .ROUTE; Start 03/02/25 at 14:03; Stop 03/02/25 at 14:03; Status DC Rocuronium [place] 50 mg STK-MED ONCE .ROUTE; Start 03/02/25 at 14:03; Stop 03/02/25 at 14:03; Status DC Sodium Chloride 1,000 ml @ 10 mls/hr ONCE IV Last administered on 03/02/25at 15:00; Start 03/02/25 at 15:00; Stop 03/03/25 at 14:59; Status DC Sodium Chloride 10 ml Q8H PRN IVP; Start 03/02/25 at 15:00; Stop 04/01/25 at 14:59 Morphine Sulfate 0.5 mg Q2H PRN IV; Start 03/02/25 at 15:00; Stop 03/03/25 at 14:59; Status DC Morphine Sulfate 1 mg Q2H PRN IV; Start 03/02/25 at 15:00; Stop 03/03/25 at 14:59; Status DC Acetaminophen 650 mg Q4H PRN RC; Start 03/02/25 at 15:00; Stop 04/01/25 at 14:59 Ondansetron HCl 4 mg Q6H PRN IV Last administered on 03/05/25at 21:06; Start 03/02/25 at 15:00; Stop 04/01/25 at 14:59 Sodium Chloride 500 ml @ 0 mls/hr AD IV Last administered on 03/03/25at 01:32; Start 03/02/25 at 15:00; Stop 04/01/25 at 14:59 Nitroglycerin/ Dextrose 0 ml @ 0 mls/hr AD IV; Start 03/02/25 at 15:00; Stop 03/05/25 at 14:59; Status DC Propofol 100 ml @ 0 mls/hr AD PRN IV; Start 03/02/25 at 15:00; Stop 03/06/25 at 14:59; Status DC Norepinephrine Bitartrate 8 mg/ Dextrose 250 ml @ 0 mls/hr AD PRN IV; Start 03/02/25 at 15:00; Stop 03/02/25 at 15:16; Status DC Epinephrine HCl 10 mg/Sodium Chloride 250 ml @ 0 mls/hr AD PRN IV; Start 03/02/25 at 15:00; Stop 03/02/25 at 15:16; Status DC Aminocaproic Acid 51722 mg/Sodium Chloride 310 ml @ 25 mls/hr AD IV; Start 03/02/25 at 15:00; Stop 03/02/25 at 15:15; Status DC Calcium Gluconate 1 gm/Sodium Chloride 60 ml @ 0 mls/hr AD PRN IV Last administered on 03/03/25at 02:29; Start 03/02/25 at 15:00; Stop 04/01/25 at 14:59 Magnesium Sulfate 50 ml @ 12.5 mls/hr AD PRN IV Last administered on 03/08/25at 10:08; Start 03/02/25 at 15:00; Stop 04/01/25 at 14:59 Potassium Chloride 100 ml @ 100 mls/hr AD PRN IV Last administered on 03/06/25at 05:21; Start 03/02/25 at 15:00; Stop 04/01/25 at 14:59 Potassium Phosphate 250 ml @ 42 mls/hr AD PRN IV Last administered on 03/03/25at 09:48; Start 03/02/25 at 15:00; Stop 04/01/25 at 14:59 Albumin Human 250 ml @ 0 mls/hr AD PRN IV; Start 03/02/25 at 15:00 Acetaminophen 650 mg Q4H PRN PO; Start 03/02/25 at 15:00; Stop 04/01/25 at 14:59 Insulin Human Regular 100 unit/ Sodium Chloride 100 ml @ 0 mls/hr AD IV Last administered on 03/02/25at 19:17; Start 03/02/25 at 15:00; Stop 03/04/25 at 14:59; Status DC Cefazolin Sodium 2 gm Q8H IVPB Last administered on 03/03/25at 14:04; Start 03/02/25 at 20:00; Stop 03/03/25 at 12:01; Status DC Tramadol HCl 25 mg Q6H PRN PO; Start 03/02/25 at 15:00; Stop 03/02/25 at 15:33; Status DC Tramadol HCl 50 mg Q6H PRN PO; Start 03/02/25 at 15:00; Stop 03/02/25 at 15:39; Status DC Famotidine 20 mg DAILY IV Last administered on 03/05/25at 08:40; Start 03/03/25 at 09:00; Stop 03/06/25 at 07:40; Status DC Sodium Bicarbonate 50 meq AD PRN IV Last administered on 03/02/25at 22:09; Start 03/02/25 at 15:00; Stop 03/05/25 at 14:59; Status DC Dextrose 50 ml AD PRN IV; Start 03/02/25 at 15:00; Stop 04/01/25 at 14:59 Glucagon 1 mg AD PRN IM; Start 03/02/25 at 15:00; Stop 04/01/25 at 14:59 Amiodarone HCl 150 mg STK-MED ONCE .ROUTE; Start 03/02/25 at 15:11; Stop 03/02/25 at 15:12; Status DC Rocuronium [place] 50 mg STK-MED ONCE .ROUTE; Start 03/02/25 at 15:52; Stop 03/02/25 at 15:52; Status DC Factor IX (Pha) 1 mg STK-MED ONCE .ROUTE; Start 03/02/25 at 16:43; Stop 03/02/25 at 16:43; Status DC Factor IX (Pha) 1 mg STK-MED ONCE .ROUTE; Start 03/02/25 at 16:52; Stop 03/02/25 at 16:53; Status DC Desmopressin Acetate 40 mcg/ Sodium Chloride 50 ml @ 100 mls/hr AD STAT IJ; Start 03/02/25 at 17:44; Stop 03/02/25 at 18:13; Status DC Cefazolin Sodium 3 gm STK-MED ONCE IVPB Last administered on 03/02/25at 15:00; Start 03/02/25 at 15:00; Stop 03/02/25 at 19:27; Status DC Cefazolin Sodium 1 gm STK-MED ONCE IRRIG Last administered on 03/02/25at 15:15; Start 03/02/25 at 15:15; Stop 03/02/25 at 19:27; Status DC Albumin Human 500 ml @ 0 mls/hr AD IV Last administered on 03/03/25at 01:31; Start 03/03/25 at 01:30; Stop 03/03/25 at 08:52; Status DC Vasopressin 40 units/Sodium Chloride 40 ml @ 0 mls/hr PROTOCOL IV; Start 03/03/25 at 01:30; Stop 03/07/25 at 15:20; Status DC Sodium Chloride 500 ml @ 0 mls/hr Q0M IV; Start 03/03/25 at 01:30; Stop 03/03/25 at 08:52; Status DC Acetaminophen 1,000 mg Q6H6 IVPB; Start 03/03/25 at 03:30; Stop 03/03/25 at 04:00; Status DC Tramadol HCl 50 mg Q6H PRN PO Last administered on 03/07/25at 12:42; Start 03/03/25 at 03:30; Stop 03/08/25 at 03:29; Status DC Acetaminophen 1,000 mg Q6H IVPB Last administered on 03/03/25at 04:17; Start 03/03/25 at 04:00; Stop 03/03/25 at 08:44; Status DC Acetaminophen 1,000 mg Q6H6 IV Last administered on 03/04/25at 06:32; Start 03/03/25 at 09:00; Stop 03/04/25 at 08:59; Status DC Docusate Sodium 100 mg BID PO Last administered on 03/10/25at 10:12; Start 03/03/25 at 09:00; Stop 04/02/25 at 08:59 Lactulose 20 gm BID PRN PO; Start 03/03/25 at 09:00; Stop 04/02/25 at 08:59 Furosemide 20 mg Q12H PO; Start 03/04/25 at 09:00; Stop 03/03/25 at 08:54; Status DC Furosemide 20 mg Q12H IV; Start 03/03/25 at 09:00; Stop 03/03/25 at 08:54; Status DC Enoxaparin Sodium 30 mg DAILY SQ; Start 03/05/25 at 09:00; Stop 03/05/25 at 19:17; Status DC Metoprolol Tartrate 12.5 mg BID PO Last administered on 03/05/25at 08:41; Start 03/04/25 at 09:00; Stop 03/05/25 at 12:08; Status DC Magnesium Hydroxide 30 ml DAILY PRN PO; Start 03/03/25 at 09:00; Stop 04/02/25 at 08:59 Acetaminophen 650 mg Q6H PRN PO Last administered on 03/09/25at 20:31; Start 03/03/25 at 09:00; Stop 04/02/25 at 08:59 Furosemide 20 mg Q12H IV Last administered on 03/03/25at 20:10; Start 03/03/25 at 09:00; Stop 03/04/25 at 08:59; Status DC Furosemide 20 mg BID@09,17 PO Last administered on 03/06/25at 07:59; Start 03/04/25 at 09:00; Stop 03/06/25 at 08:42; Status DC Cefazolin Sodium 2 gm STK-MED ONCE .ROUTE; Start 03/03/25 at 13:58; Stop 03/03/25 at 13:59; Status DC Metoprolol Tartrate 25 mg BID PO Last administered on 03/10/25at 10:12; Start 03/05/25 at 21:00; Stop 04/04/25 at 20:59 Metoprolol Tartrate 12.5 mg ONCE ONCE PO Last administered on 03/05/25at 13:34; Start 03/05/25 at 13:30; Stop 03/05/25 at 13:31; Status DC Fondaparinux 2.5 mg DAILY SQ; Start 03/06/25 at 09:00; Stop 03/06/25 at 09:05; Status DC Amlodipine Besylate 10 mg DAILY PO Last administered on 03/10/25at 10:12; Start 03/06/25 at 09:00; Stop 04/05/25 at 08:59 Hydralazine HCl 10 mg Q6H PRN IV; Start 03/06/25 at 09:00; Stop 04/05/25 at 08:59 Furosemide 30 mg Q12H IV Last administered on 03/07/25at 20:54; Start 03/06/25 at 09:00; Stop 03/07/25 at 21:01; Status DC Potassium Chloride 20 meq AD PRN PO Last administered on 03/09/25at 05:10; Start 03/06/25 at 09:00; Stop 04/05/25 at 08:59 Piperacillin Sod/ Tazobactam Sod 3.375 gm Q8H IVPB Last administered on 03/10/25at 12:47; Start 03/06/25 at 12:30; Stop 03/20/25 at 12:29 Pharmacy Profile Note 1 each ONCE MISC; Start 03/06/25 at 12:30; Stop 03/06/25 at 12:17; Status DC Linezolid 300 ml @ 150 mls/hr Q12H IV Last administered on 03/10/25at 12:47; Start 03/06/25 at 12:30; Stop 03/16/25 at 12:29 Fondaparinux 2.5 mg ONCE ONCE SQ Last administered on 03/06/25at 15:12; Start 03/06/25 at 14:30; Stop 03/06/25 at 14:31; Status DC Fondaparinux 2.5 mg DAILY SQ Last administered on 03/10/25at 10:11; Start 03/07/25 at 09:00; Stop 04/06/25 at 08:59 Albumin Human 50 ml @ As Directed STK-MED ONCE IV; Start 02/23/25 at 14:10; Stop 03/07/25 at 14:12; Status DC Aminocaproic Acid 5,000 mg STK-MED ONCE IV; Start 02/23/25 at 14:10; Stop 03/07/25 at 14:12; Status DC Calcium Chloride 1,000 mg STK-MED ONCE IVP; Start 02/23/25 at 14:10; Stop 03/07/25 at 14:12; Status DC Heparin Sodium (Porcine) 10,000 unit STK-MED ONCE IV; Start 02/23/25 at 14:10; Stop 03/07/25 at 14:12; Status DC Lidocaine HCl 5 mg STK-MED ONCE IVP; Start 02/23/25 at 14:10; Stop 03/07/25 at 14:12; Status DC Magnesium Sulfate 1 gm STK-MED ONCE IM; Start 02/23/25 at 14:10; Stop 03/07/25 at 14:12; Status DC Mannitol 12.5 gm STK-MED ONCE IV; Start 02/23/25 at 14:10; Stop 03/07/25 at 14:12; Status DC Phenylephrine HCl 10 mg STK-MED ONCE IV; Start 02/23/25 at 14:10; Stop 03/07/25 at 14:12; Status DC Sodium Bicarbonate 50 meq STK-MED ONCE IVP; Start 02/23/25 at 14:10; Stop 03/07/25 at 14:12; Status DC Furosemide 40 mg DAILY PO Last administered on 03/10/25at 10:12; Start 03/08/25 at 09:00; Stop 04/07/25 at 08:59 Wound Care/ Dressing Products 1 APPLY BID BID TP Last administered on 03/10/25at 10:21; Start 03/08/25 at 21:00; Stop 04/07/25 at 20:59 Ketorolac Tromethamine 15 mg ONCE ONCE IV; Start 03/08/25 at 18:00; Stop 03/08/25 at 18:01; Status DC Acetaminophen/ Hydrocodone Bitart 1 tab ONCE ONCE PO Last administered on 03/08/25at 21:02; Start 03/08/25 at 21:00; Stop 03/08/25 at 21:01; Status DC Ibuprofen 400 mg ONCE ONCE PO Last administered on 03/09/25at 13:41; Start 03/09/25 at 13:30; Stop 03/09/25 at 13:31; Status DC Morphine Sulfate 2 mg ONCE ONCE IVP; Start 03/09/25 at 15:30; Stop 03/09/25 at 15:31; Status DC Morphine Sulfate 2 mg ONCE ONCE IVP Last administered on 03/10/25at 12:59; Start 03/10/25 at 13:00; Stop 03/10/25 at 13:01; Status DC LEOPOLDO AGUILAR MD Mar 10, 2025 13:24
--- NOTE | 2025-03-10 15:47 | PN ---
[facility] PROGRESS NOTE Date of Service: Mar 10, 2025 Time of Service: 15:46 SUBJECTIVE: [ HPI : 54-year-old male with a complex medical history including recent hospitalization with a Gram-positive bacteremia secondary to Staph aureus, severe sepsis and endocarditis with echogenic vegetations on noncoronary cusps and right coronary cusp as well as left atrial appendage clot on January 11, 2025 presented to the ED days history of worsening shortness of breath. He was discharged on January 31, 2025 with long-term IV linezolid via PICC line for infective endocarditis. Since 3 days he reports progressive dyspnea, worsened acutely today. He denies chest pain but notes fatigue and exertional intolerance. There is no reported fever or chills. He was in mild respiratory distress on arrival. Notably has a past medical history of Fidelina esophagitis, uncontrolled diabetes mellitus type 2 BRENDAN, immune thrombocytopenic purpura, UTI Klebsiella and substance abuse with cocaine alcohol and tobacco. So on physical examination he is positive for shortness of breaths and cough no hemoptysis. His lungs have expiratory wheezes and diffuse crackling bilaterally. He is tachycardic with regular rhythm. His WBC count is at 18, hemoglobin at 10.5 and platelet count at 470 K with leukocytosis chronic anemia and thrombocytosis, chemistry is with creatinine showing 2.2, BUN at and CO2 at 18.2 magnesium low consistent with BRENDAN, electrolyte derangements. His arterial blood gas analysis reveals a pH of 7.469, PaCO2 of 26, PO2 of 54.6, HC03 of 18.2 and saturation of 90.2 Representing acute hypoxic respiratory failure with respiratory alkalosis. Serum lactate is elevated at 3.6 persistent lactic acidosis. BNP is at 2410 suggesting cardiac strain or volume overload. And troponin is elevated at [address] segment elevated NH. and urine analysis positive concerning for UTI and nephropathy due to positive hyaline casts. Chest x-ray reveals diffuse bilateral opacities consistent with pneumonia and chest CT scan reveals bilateral pleural effusion bilateral ground-glass pulmonary infiltrates are seen renal ultrasound reveals no hydronephrosis. And a CT scan also revealed gallstone. Echo is ordered to assess vegetations, LA clot and EF. Lower extremity Doppler revealed no DVT, Matthews's cyst versus hematoma in the left knee. EGD from prior history Fidelina esophagitis. The patient is admitted to ICU with the critical Care and Cardiology and Infectious Disease consult has been placed for further management currently on Precedex drip and CPAP setting with tidal volume of 657 and a rate of 36 and PIP of15 and ve of 23.2. Furosemide 40 q.12h is added in addition to his antibiotics monitoring the patient closely and discuss the goal of care with the patient and he agreed upon with it. 02/25/2025. Patient seen and examined along with RN. Feels better , breathing has improved. Continues to be on IV Lasix and metolazone was added. Cardiology and critical Care on board CT surgery was consulted for severe aortic regurgitation.] 02/26/25 review supervisor hand workers's note in detail. CT surgery was consulted regarding to his severe AI. Patient continues with diuretics in IV antibiotics. No fevers denies chest pain. 02/27/25 44-year-old male with a complex medical history including infective endocar ditis, severe aortic insufficiency, CHF, BRENDAN, diabetic nephropathy, bilateral pneumonia, and recent gram-negative sepsis, is clinically improving. The patient reports that shortness of breath has been improving slowly over the past 48 hours. He currently denies chest pain, fever, or chills. He is tolerating medications and oral intake well. He remains on low-flow oxygen at 1L via nasal cannula, saturating well at 98%, ambulating to the chair with mild fatigue but no acute respiratory distress. No complaints of palpitations or dizziness. He is aware of the upcoming left heart catheterization and understands the indication for aortic valve replacement surgery. No family was present during bedside examination WBC: 11.7 (? from 13.2) improving leukocytosis February 28 2025 44-year-old male with severe nez perce aortic valve insufficiency, bacterial endocarditis, and worsening pulmonary congestion, was upgraded to PCCU today due to clinical and radiographic deterioration. He remains dyspneic and hypoxic despite low-flow oxygen support. He reports difficulty breathing, especially in the supine position, and has been unable to tolerate lying flat due to severe orthopnea. He feels increasingly fatigued, lightheaded, and weak. Denies chest pain, fevers, chills, or palpitations. He is aware of his pending left heart catheterization and the need for aortic valve replacement surgery and verbalizes continued understanding and consent March 01 2025 The patient was examined at bedside this morning. He remains alert and oriented, and in no acute distress while sitting up. He reports increased shortness of breath when lying back or attempting to sleep supine, consistent with severe orthopnea, though otherwise states that he is feeling okay. He is NPO for the planned left heart catheterization scheduled for today as part of the workup for severe nez perce aortic insufficiency with large vegetation and worsening decompensated heart failure. He has no new complaints of chest pain, fever, chills, nausea, or dizziness. He verbalizes understanding of the planned cardiac intervention and its associated risks, including contrast use, bleeding, arrhythmia, and need for surgical valve replacement afterward. March 02 2025 The patient was evaluated at bedside this morning. He was found sitting upright, hemodynamically stable, alert, and oriented. He reports no acute complaints at this time, denies chest pain, palpitations, nausea, or dizziness. He remains on 2L O? via nasal cannula, comfortable at rest, and is awaiting surgical intervention today for severe aortic valve regurgitation. The patient underwent left and right heart catheterization yesterday which reve aled normal coronary anatomy with mild non-obstructive CAD. Cardiology has cleared the patient for surgical aortic valve repair. He has been informed of the risks and benefits of the procedure and has provided informed consent. His oxygen saturation and hemodynamics remain stable. He denies orthopnea today. 03/03/25 The patient was examined at bedside this morning, currently Post-Operative Day 1 following successful aortic valve replacement for nez perce valve endocarditis. He is sitting upright in bed, alert and oriented, and reports that he is doing okay overall. He denies shortness of breath or chest discomfort but reports moderate incisional pain, well controlled with PRN Tylenol and tramadol. He reports mild fatigue but no nausea, dizziness, palpitations, or changes in vision. He is tolerating clear liquids. He has been out of bed to chair. No major overnight events noted. 03/04/25 Patient is evaluated at bedside this morning on postoperative day2 following bioprosthetic AV valve replacement for nez perce valve infective endocarditis with severe regurgitation. He appears clinically improved. He denies chest pain, shortness of breath, dizziness, nausea, vomiting or other acute complaints. He reports mild fatigue and incisional pain, which is well controlled with acetaminophen p.r.n.. He is now breathing comfortably on room air, requiring no supplemental O2 and weaned off all vasopressors and inotropes. Appetite has improved. No complaints of orthopnea or PND. He continues to void adequately, although noted to have some postop anemia and mild thrombocytopenia. He is aware of ongoing recovery and upcoming transfusion today for symptomatic anemia. He has pain sitting up in the recliner. 03/05/25 patient seen and examined. Care discussed with the. Cardiology consulted Hematology for anticoagulation management He presented with severe symptomatic aortic valve insufficiency in the setting of bacterial endocarditis. He is status post bioprosthetic aortic valve replacement 03/02/2025. Continue aspirin 81 mg once daily. 03/06/25 Patient was examined at bedside this morning. He is currently off supplemental O2, breathing comfortably on room air with SpO2 of 98%, and hemodynamically stable. He is sitting upright in a recliner, awake, alert, oriented and reports feeling better overall. He denies chest pain, shortness of breath at rest, or dizziness. He notes mild bilateral leg swelling, but denies any pain, erythema or tenderness. He is ambulating with assistance, tolerating oral intake, and urinating spontaneously. His central line was removed and PICC line remains in place. Chest tube remains with a with decreased output today of 160 mL. He has not required vasopressors or inotropes, and respiratory parameters are stable. He is he understands that he has been downgraded from ICU to PCCU as a part of recovery plan. Awaiting Hematology recommendations for anti coagulation. 03/07/25 Patient was examined at bedside this morning and reports he is feeling much better overall. His hemodynamically stable, breathing on room air, and ambulating with assistance through cardiac rehabilitation. He denies chest pain, palpitations, shortness of breath, nausea, vomiting, dizziness or syncope. His chest tube drainage decreased to 120 mL and both chest tubes and temporary pacing wires are scheduled to be removed today. He requires 6 weeks of IV antibiotic therapy via PICC line. And currently on linezolid doxycycline and Zosyn. The patient's acute kidney injury is improving from creatinine improved to 1.6 down from 2.1 yesterday. He is tolerating his current antihypertensive regimen. His thrombocytopenia has resolved with platelet counts improving to 133 K, and he is now on fondaparinux 2.5 mg as Q daily per hematology guidance for anticoagulation, avoid heparin products. 03/08/25 The patient was evaluated at bedside this morning. He states he is doing good and continues to breathe comfortably on room air. He denies shortness of breath, dizziness, nausea, or chest pain but notes mild incisional chest discomfort, described as soreness or pressure, likely post-sternotomy musculoskeletal pain. He has been ambulating and participating in cardiac rehab with minimal support. He has no fevers or chills, is tolerating oral intake, and understands the plan for discharge. He has been weaned off all IV drips and oxygen. Urine output remains stable. Patient is aware that long-term oral antibiotic therapy is needed and that the telephonic case manager is helping arrange prescriptions given financial barriers. Cardiology, ID, and Hematology have cleared him for discharge from their respective standpoints. Antibiotic choice finalized as Linezolid 600 mg PO BID 4 weeks per ID. 03/09/25 Was evaluated at bedside today. He reports persistent, steady incisional chest pain following recent removal of chest tubes and pacing wires. The pain is described as dull and dragging located behind the sternum, without radiation and worsens with movement or deep inspiration. He denies chest pressure shortness of breath palpitation or fever. He remains hemodynamically stable breathing on room air and clinically improving overall. Renal function has improved, a llowing cautious trial of NSAIDs. Pain appears musculoskeletal in nature and consistent with post sternotomy discomfort. Case management continues working on obtaining4 weeks of oral antibiotic linezolid and discharge planning includes transitioning to warfarin with an INR goal of 2-3 for long-term anticoagulation post discharge. Because be evaluated other anticoagulation options but he is unfunded and he can not afford those. Count is 8.5 normal, hemoglobin is 7.4 Decreased from 8.5 monitoring no symp toms of active bleeding, hematocrit is at 22.5 low platelet count is improving from 1 not3 K yesterday to117 K today. CMP is within normal limits creatinine is 1.4 improving from 1.5 yesterday and chest x-ray no interval changes. 03/10/25 Patient was examined at bedside this morning. He states he is feeling well overall. He denies chest pain, palpitations, shortness of breath, dizziness, nausea, or fever. He reports that his previous incisional chest discomfort has improved significantly. He is ambulating independently and tolerating oral intake. He is breathing comfortably on room air, is hemodynamically stable, and has no signs of infection or decompensation. He has been provided with a 4-week prescription for oral Linezolid, arranged by case management. Hematology is assisting with arranging samples for outpatient anticoagulation. Patient is agreeable to Pradaxa or Xarelto 20 mg PO daily, depending on availability.Discharge expected tomorrow AM field project manager arranged prescriptions: Linezolid Anticoagulation (Xarelto/Pradaxa or Warfarin) Ensure medication access, transportation arranged Pending transportation today REVIEW OF SYSTEMS CONSTITUTIONAL: Positive for fatigue, mild subjective fever. NEUROLOGICAL: Denies headache, amaurosis fugax, motor weakness, sensory deficit, vertigo/spinning sensation, gait abnormalities, or tremors. ENT: No hearing loss, otalgia, otorrhea, rhinitis, rhinorrhea, hoarseness, or sore throat. CARDIOVASCULAR: Palpitations, no angina. PULMONARY: Shortness of breath, cough, no hemoptysis. SLEEP: Denies morning headaches, daytime somnolence or napping. Denies difficulty falling asleep, staying asleep, waking from sleep. Denies knowledge of snoring. GASTROINTESTINAL: Denies any type of dysphagia to either liquids or solids. Denies nausea, vomiting, pyrosis, early satiety, abdominal pain, diarrhea, constipation, or changes in stool consistency or caliber. Denies coffee-ground emesis, hematemesis, hematochezia, or melanotic stools. GENITOURINARY: Denies frequency, urgency, nocturia, hematuria or incontinence (Storage/Irritative symptoms.) Low urinary stream, straining to void, urinary intermittency or hesitancy, splitting of the voiding stream, terminal dribbling. ENDOCRINOLOGIC: Denies polyuria, polydipsia, polyphagia or heat/cold intolerances. HEMATOLOGIC: Denies thrombophilia/previous clots, or coagulopathy/bleeding disorders. ONCOLOGIC: Denies personal history of malignancy. DERMATOLOGIC: Denies rashes or pruritus. PSYCHIATRIC: Denies any suicidal or homicidal ideation. Denies hallucinations. PHYSICAL EXAM GENERAL APPEARANCE ill appearing, alert, mildly agitated, in moderate respiratory distress. NEUROLOGICAL: Cranial nerves II-XII grossly intact. Motor is 5/5 in bilateral upper and lower extremities proximal to distal. No sensory deficits. HEENT: Face is symmetric. Pupils are equal and reactive. Extraocular movements are intact. NECK: Supple. No JVD. No thyromegaly. No submental, submandibular, pre- /postauricular, occipital or supraclavicular lymphadenopathy. CHEST: Normal chest expansion. No Telemetry. LUNGS: Expiratory wheeze and diffuse crackles bilaterally CARDIOVASCULAR: Regular. S1 and S2 normal. No appreciable rubs, murmurs or gallops. Tachycardia present ABDOMEN: Soft, nontender, and nondistended. There is no rebound, voluntary guarding, or rigidity. : Deferred. No Ortega. EXTREMITIES: Bilateral 2+ pitting edema, left knee warm swollen, limited ROM and pitting edema more on the left compared to right. SKIN: No skin breakdown. Vital Signs (last 8hr) Date Time Temp Pulse Resp B/P (MAP) Pulse Ox O2 Delivery O2 Flow Rate FiO2 03/10/25 11:30 98.1 77 18 125/64 99 Room Air 03/10/25 08:00 98.4 88 18 133/67 99 Room Air LABS: Laboratory: Test 03/10/25 07:52 03/10/25 03:51 Range/Units Hemoglobin 7.4 L 14.0-18.0 g/dL Hematocrit 22.3 L 42-54 % White Blood Count 8.5 4.8-10.8 K/uL Red Blood Count 2.34 L 4.50-6.20 MIL/uL Mean Corpuscular Volume 90.2 79-99 fL Mean Corpuscular Hemoglobin 29.9 27.0-33.0 pg Mean Corpuscular Hemoglobin Concent 33.2 32.0-36.0 g/dL Red Cell Distribution Width 15.0 11.0-15.5 % Platelet Count 121 L 130-400 K/uL Mean Platelet Volume 11.1 H 7.5-10.5 fL Immature Granulocyte % (Auto) 0.5 0-1 % Neutrophils (%) (Auto) 55.6 40.0-77.0 % Lymphocytes (%) (Auto) 23.6 21.0-51.0 % Monocytes (%) (Auto) 11.3 3.0-13.0 % Eosinophils (%) (Auto) 8.1 H 0.0-8.0 % Basophils (%) (Auto) 0.9 0.0-5.0 % Neutrophils # (Auto) 4.7 1.8-7.7 K/uL Lymphocytes # (Auto) 2.0 1.0-4.8 K/uL Monocytes # (Auto) 1.0 0.1-1.0 K/uL Eosinophils # (Auto) 0.69 0.00-0.70 K/uL Basophils # (Auto) 0.08 0.00-0.20 K/uL Absolute Immature Granulocyte (auto 0.04 0-1 K/uL Nucleated Red Blood Cells 0.0 0.0-0.19 % Sodium Level 138 136-145 mmol/L Potassium Level 3.9 3.5-5.1 mmol/L Chloride Level 104 101-111 mmol/L Carbon Dioxide Level 22 21-32 mmol/L Blood Urea Nitrogen 17 7-18 mg/dL Creatinine 1.3 0.5-1.3 mg/dL Glomerular Filtration Rate Calc 69 >90 mL/min Random Glucose 127 H 70-105 mg/dL Total Calcium 8.2 L 8.5-10.1 mg/dL Total Bilirubin 0.3 0.2-1.0 mg/dL Aspartate Amino Transf (AST/SGOT) 12 10-37 U/L Alanine Aminotransferase (ALT/SGPT) < 6 L 12-78 U/L Alkaline Phosphatase 79 50-136 U/L Total Protein 5.8 L 6.0-8.3 g/dL Albumin 2.1 L 3.5-5.0 g/dL Current Medications Medications (Trade) Dose Ordered Sig/Asya Route PRN Reason Start Time Stop Time Status Last Admin Dose Admin Acetaminophen (TYLenol 325MG TAB) 650 mg Q4H PRN PO Temp >38.3C(AFTER EXTUBATION) 03/02/25 15:00 04/01/25 14:59 Acetaminophen (TYLenol 325MG TAB) 650 mg Q6H PRN PO MILD PAIN (1-3) 03/03/25 09:00 04/02/25 08:59 03/09/25 20:31 650 MG Acetaminophen (TYLenol 650MG SUPPOSITORY) 650 mg Q4H PRN RC Temp >38.3C WHILE INTUBATED 03/02/25 15:00 04/01/25 14:59 Acetaminophen (acetaMINOPHEN) 1,000 mg Q6H IVPB 03/03/25 04:00 03/03/25 08:44 DC 03/03/25 04:17 1,000 MG Acetaminophen (acetaMINOPHEN) 1,000 mg Q6H6 IV 03/03/25 09:00 03/04/25 08:59 DC 03/04/25 06:32 1,000 MG Acetaminophen (acetaMINOPHEN) 1,000 mg Q6H6 IVPB 03/03/25 03:30 03/03/25 04:00 DC Acetaminophen/ Codeine Phosphate (TYLenol-coDEINE (120/12MG 5ML) ELIXIR) 10 ml Q4H PRN PO MODERATE PAIN (4-6) 02/25/25 15:30 02/25/25 15:16 DC Acetaminophen/ Hydrocodone Bitart (NORco 5/325MG) 1 tab Q6H PRN PO MODERATE PAIN (4-6) 02/23/25 23:00 02/28/25 22:59 DC 02/28/25 08:27 1 TAB Acetaminophen/ Hydrocodone Bitart (NORco 5/325MG) 1 tab Q6H PRN PO MODERATE PAIN (4-6) 03/01/25 00:30 03/02/25 14:57 DC 03/01/25 23:53 1 TAB Albumin Human 250 ml @ 0 mls/hr AD PRN IV IF HEMODYNAMICALLY UNSTABLE 03/02/25 15:00 Albumin Human 500 ml @ 0 mls/hr AD IV 03/03/25 01:30 03/03/25 08:52 DC 03/03/25 01:31 250 MLS/HR Albuterol (DUOneb) 1 UDVIAL [id number] IH 02/24/25 00:00 02/24/25 14:15 DC 02/24/25 07:08 1 UDVIAL Alteplase, Recombinant (CathFLO 2MG VIAL) 4 mg ONCE IVCATH 02/25/25 09:30 02/25/25 11:00 DC 02/25/25 10:44 4 MG Aminocaproic Acid 91090 mg/Sodium Chloride 310 ml @ 25 mls/hr AD IV 03/02/25 15:00 03/02/25 15:15 DC Aminocaproic Acid 43606 mg/Sodium Chloride 480 ml @ 0 mls/hr AD PRN IV BLEEDING CONTROL 03/02/25 08:30 03/07/25 15:20 DC Amlodipine Besylate (NorvASC 5MG TAB) 10 mg DAILY PO 03/06/25 09:00 04/05/25 08:59 03/10/25 10:12 10 MG Aspirin (Aspirin 81mg Ec Tab) 81 mg DAILY PO 02/25/25 09:00 03/27/25 08:59 03/10/25 10:11 81 MG Budesonide (Pulmicort 0.5 Mg/2ml) 0.5 mg BIDRESP IH 02/24/25 18:00 03/26/25 17:59 03/09/25 07:07 0.5 MG Bumetanide 40 ml @ 0 mls/hr AD IV 02/28/25 09:30 03/02/25 14:57 DC 03/02/25 06:01 1 MLS/HR Calcium Gluconate 1 gm/Sodium Chloride 60 ml @ 0 mls/hr AD PRN IV HYPOCALCEMIA 03/02/25 15:00 04/01/25 14:59 03/03/25 02:29 100 MLS/HR Cefazolin Sodium (Ancef) 2 gm ONCALL IVP 03/01/25 23:00 03/02/25 15:20 DC Cefazolin Sodium (Ancef) 2 gm Q8H IVPB 03/02/25 20:00 03/03/25 12:01 DC 03/03/25 14:04 2 GM Desmopressin Acetate 40 mcg/ Sodium Chloride 50 ml @ 100 mls/hr AD STAT IJ 03/02/25 17:44 03/02/25 18:13 DC Dexmedetomidine/ Sodium Chloride (PRECEdex 400MCG/ 100ML-NS) 400 mcg PROTOCOL IV 02/24/25 10:30 03/02/25 14:57 DC Dextrose (D50w) 50 ml AD PRN IV HYPOGLYCEMIA PROTOCOL 03/01/25 13:00 03/02/25 15:25 DC Dextrose (D50w) 50 ml AD PRN IV HYPOGLYCEMIA PROTOCOL 03/02/25 15:00 04/01/25 14:59 Docusate Sodium (COLace 100MG CAP) 100 mg BID PO 03/03/25 09:00 04/02/25 08:59 03/10/25 10:12 100 MG Doxycycline Hyclate (Doxycycline Hyclate) 100 mg BID PO 02/24/25 21:00 03/06/25 20:59 DC 03/06/25 07:59 100 MG Enoxaparin Sodium (Lovenox) 30 mg DAILY SQ 03/05/25 09:00 03/05/25 19:17 DC Epinephrine HCl 10 mg/Sodium Chloride 250 ml @ 0 mls/hr AD PRN IV TITRATE 03/02/25 08:30 03/07/25 15:20 DC Epinephrine HCl 10 mg/Sodium Chloride 250 ml @ 0 mls/hr AD PRN IV POST-OP CARDIOVASCULAR ORDERS 03/02/25 15:00 03/02/25 15:16 DC Famotidine (Pepcid 20mg Vial) 20 mg DAILY IV 03/03/25 09:00 03/06/25 07:40 DC 03/05/25 08:40 20 MG Folic Acid (FOLic ACID 1 MG TABLET) 1 mg DAILY PO 02/25/25 09:00 02/26/25 07:40 DC 02/25/25 09:07 1 MG Folic Acid (FOLic ACID 1 MG TABLET) 1 mg DAILY PO 02/25/25 09:00 03/27/25 08:59 03/10/25 10:12 1 MG Fondaparinux (Arixtra) 2.5 mg DAILY SQ 03/06/25 09:00 03/06/25 09:05 DC Fondaparinux (Arixtra) 2.5 mg DAILY SQ 03/07/25 09:00 04/06/25 08:59 03/10/25 10:11 2.5 MG Furosemide (LASix 20MG TAB) 20 mg BID@09, PO 03/04/25 09:00 03/06/25 08:42 DC 03/06/25 07:59 20 MG Furosemide (LASix 20MG TAB) 20 mg Q12H PO 03/04/25 09:00 03/03/25 08:54 DC Furosemide (LASix 20MG VIAL) 20 mg Q12H IV 03/03/25 09:00 03/03/25 08:54 DC Furosemide (LASix 20MG VIAL) 20 mg Q12H IV 03/03/25 09:00 03/04/25 08:59 DC 03/03/25 20:10 20 MG Furosemide (LASix 40MG TAB) 40 mg DAILY PO 03/08/25 09:00 04/07/25 08:59 03/10/25 10:12 40 MG Furosemide (LASix 40MG VIAL) 30 mg Q12H IV 03/06/25 09:00 03/07/25 21:01 DC 03/07/25 20:54 30 MG Furosemide (LASix 40MG VIAL) 40 mg Q12H IV 02/24/25 08:30 02/24/25 10:20 DC 02/24/25 09:34 40 MG Furosemide (LASix 40MG VIAL) 40 mg Q8H IV 02/24/25 16:30 02/28/25 09:13 DC 02/28/25 08:26 40 MG Glucagon (Glucagon 1mg Kit) 1 mg AD PRN IM HYPOGLYCEMIA PROTOCOL 03/01/25 13:00 03/02/25 15:38 DC Glucagon (Glucagon 1mg Kit) 1 mg AD PRN IM HYPOGLYCEMIA PROTOCOL 03/02/25 15:00 04/01/25 14:59 Heparin Sodium (Porcine) (HEParin 5,000 UNIT VIAL) 5,000 unit BID SQ 02/24/25 09:00 03/02/25 14:57 DC 03/01/25 20:22 5,000 UNIT Hydralazine HCl (APRESOLine 20MG INJ) 10 mg Q6H PRN IV ADMINISTER FOR SBP > 160 03/06/25 09:00 04/05/25 08:59 Insulin Human Regular 100 unit/ Sodium Chloride 100 ml @ 0 mls/hr AD IV 03/02/25 15:00 03/04/25 14:59 DC 03/02/25 19:17 4 MLS/HR Ipratropium Coleman (AtrovENT UD) 0.5 MG [id number] IH 02/24/25 14:00 03/26/25 13:59 03/09/25 13:55 0.5 MG Lactulose (Constulose 20gm/ 30ml Udcup) 20 gm BID PRN PO CONSTIPATION 03/03/25 09:00 04/02/25 08:59 Linezolid 300 ml @ 150 mls/hr Q12H IV 02/24/25 11:00 03/06/25 10:59 DC 03/05/25 22:13 150 MLS/HR Linezolid 300 ml @ 150 mls/hr Q12H IV 03/06/25 12:30 03/16/25 12:29 03/10/25 12:47 150 MLS/HR Magnesium Hydroxide (Milk Of Magnesium 30ml) 30 ml DAILY PRN PO CONSTIPATION 03/03/25 09:00 04/02/25 08:59 Magnesium Sulfate 50 ml @ 12.5 mls/hr AD PRN IV MAG LEVEL LESS THAN 2.0 03/02/25 15:00 04/01/25 14:59 03/08/25 10:08 12.5 MLS/HR Magnesium Sulfate 50 ml @ 0 mls/hr PROTOCOL PRN IV low magnesium 02/25/25 11:00 03/02/25 14:57 DC 02/25/25 11:27 25 MLS/HR Melatonin (Melatonin) 10 mg HS PRN PO INSOMNIA 02/24/25 11:00 03/02/25 14:57 DC 03/01/25 23:53 10 MG Metolazone (zarOXOlyn) 5 mg DAILY PO 02/25/25 09:00 03/02/25 14:57 DC 03/01/25 14:49 5 MG Metoprolol Tartrate (loprESSOR) 12.5 mg BID PO 03/04/25 09:00 03/05/25 12:08 DC 03/05/25 08:41 12.5 MG Metoprolol Tartrate (loprESSOR) 25 mg BID PO 03/05/25 21:00 04/04/25 20:59 03/10/25 10:12 25 MG Montelukast Sodium (SinguLAIR) 10 mg DAILY PO 02/25/25 09:00 03/27/25 08:59 03/10/25 10:12 10 MG Morphine Sulfate (morPHINE 2MG SYG) 0.5 mg Q2H PRN IV MODERATE PAIN (4-6) 03/02/25 15:00 03/03/25 14:59 DC Morphine Sulfate (morPHINE 2MG SYG) 1 mg Q2H PRN IV SEVERE PAIN (7-10) 03/02/25 15:00 03/03/25 14:59 DC Nitroglycerin/ Dextrose 0 ml @ 0 mls/hr AD IV 03/02/25 15:00 03/05/25 14:59 DC Norepinephrine Bitartrate 250 ml @ 0 mls/hr AD PRN IV TITRATE 03/02/25 08:30 03/07/25 15:20 DC Norepinephrine Bitartrate 8 mg/ Dextrose 250 ml @ 0 mls/hr AD PRN IV POST-OP CARDIOVASCULAR ORDERS 03/02/25 15:00 03/02/25 15:16 DC Nystatin (NYSTatin 595778 UNIT/ML 5ML UDCUP) 5 ml QID PO 02/24/25 17:00 03/26/25 16:59 03/10/25 12:47 5 ML Ondansetron HCl (zoFRAN 4MG INJ) 4 mg Q6H PRN IV NAUSEA/VOMITING 03/02/25 15:00 04/01/25 14:59 03/05/25 21:06 4 MG Ondansetron HCl (zoFRAN 4MG INJ) 4 mg Q6H PRN IVP NAUSEA/VOMITING 02/24/25 21:00 03/02/25 14:57 DC 03/02/25 12:05 4 MG Pantoprazole Sodium (PROTonix 40MG INJ) 40 mg DAILY IVP 02/24/25 11:00 03/02/25 14:57 DC 03/02/25 11:54 40 MG Pharmacy Profile Note (Lace Assessment) 1 each AD MISC 02/24/25 10:30 02/24/25 10:32 DC Pharmacy Profile Note (Lace Assessment) 1 each AD MISC 02/25/25 15:30 02/25/25 15:17 DC Pharmacy Profile Note (Pharmacy Communication) 1 each ONCE MISC 02/23/25 23:00 02/23/25 23:48 DC Pharmacy Profile Note (Pharmacy Communication) 1 each ONCE MISC 02/25/25 15:30 02/25/25 15:17 DC Pharmacy Profile Note (Pharmacy Communication) 1 each ONCE MISC 03/06/25 12:30 03/06/25 12:17 DC Piperacillin Sod/ Tazobactam Sod (Zosyn 3.375gm+NS 50ml) 3.375 gm Q8H IV 02/24/25 05:00 03/06/25 04:59 DC 03/05/25 21:05 3.375 GM Piperacillin Sod/ Tazobactam Sod (Zosyn 3.375gm+NS 50ml) 3.375 gm Q8H IVPB 03/06/25 12:30 03/20/25 12:29 03/10/25 12:47 3.375 GM Potassium Phosphate 250 ml @ 42 mls/hr AD PRN IV LOW PHOS LEVEL 03/02/25 15:00 04/01/25 14:59 03/03/25 09:48 42 MLS/HR Potassium Chloride 100 ml @ 100 mls/hr AD PRN IV POTASSIUM PROTOCOL 02/25/25 11:00 02/27/25 10:47 DC 02/27/25 08:24 100 MLS/HR Potassium Chloride 100 ml @ 100 mls/hr AD PRN IV POTASSIUM PROTOCOL 02/25/25 11:00 03/02/25 14:57 DC 03/02/25 11:54 100 MLS/HR Potassium Chloride 100 ml @ 100 mls/hr AD PRN IV HYPOKALEMIA 03/02/25 15:00 04/01/25 14:59 03/06/25 05:21 100 MLS/HR Potassium Chloride (K-Dur 10meq Sr Tab) 10 meq AD PRN PO POTASSIUM PROTOCOL 02/27/25 11:00 03/02/25 14:57 DC 03/01/25 05:39 10 MEQ Potassium Chloride (K-Dur/Klor-Con 20meq) 10 meq AD PRN PO POTASSIUM PROTOCOL 02/25/25 11:00 02/27/25 10:48 DC Potassium Chloride (K-Dur/Klor-Con 20meq) 20 meq AD PRN PO POTASSIUM PROTOCOL 03/06/25 09:00 04/05/25 08:59 03/09/25 05:10 20 MEQ Potassium Chloride (K-Dur/Klor-Con 20meq) 20 meq DAILY PO 03/01/25 09:00 03/02/25 14:57 DC 03/01/25 14:50 20 MEQ Potassium Chloride (KCl 10% Elixir 20meq/15ml) 10 meq AD PRN PO POTASSIUM PROTOCOL 02/25/25 11:00 03/02/25 14:57 DC Propofol 100 ml @ 0 mls/hr AD PRN IV SEDATION 03/02/25 15:00 03/06/25 14:59 DC Sodium Bicarbonate (Sodium Bicarb 50meq 50ml Vial) 50 meq AD PRN IV OTHER[SEE DOSING INSTRUCTIONS] 03/02/25 15:00 03/05/25 14:59 DC 03/02/25 22:09 50 MEQ Sodium Chloride 500 ml @ 0 mls/hr AD IV 03/02/25 15:00 04/01/25 14:59 03/03/25 01:32 500 MLS/HR Sodium Chloride 500 ml @ 0 mls/hr Q0M IV 03/03/25 01:30 03/03/25 08:52 DC Sodium Chloride 1,000 ml @ 0 mls/hr Q0M IV 03/02/25 13:00 04/01/25 12:59 Sodium Chloride 1,000 ml @ 10 mls/hr ONCE IV 03/02/25 15:00 03/03/25 14:59 DC 03/02/25 15:00 10 MLS/HR Sodium Chloride 1,000 ml @ 75 mls/hr [id number] IV 02/23/25 20:00 02/23/25 23:03 DC 02/23/25 20:08 75 MLS/HR Sodium Chloride 1,000 ml @ 150 mls/hr Q6H40M IV 03/01/25 13:00 03/01/25 15:37 DC 03/01/25 14:50 150 MLS/HR Sodium Chloride (NS Flush 10ml) 10 ml Q8H PRN IVP IV LINE FLUSH 03/02/25 15:00 04/01/25 14:59 Thiamine HCl (Vitamin B-1) 100 mg DAILY PO 02/25/25 09:00 03/27/25 08:59 03/10/25 10:12 100 MG Tramadol HCl (UltRAM) 25 mg Q6H PRN PO MODERATE PAIN (4-6) 03/02/25 15:00 03/02/25 15:33 DC Tramadol HCl (UltRAM) 50 mg Q6H PRN PO SEVERE PAIN (7-10) 03/02/25 15:00 03/02/25 15:39 DC Tramadol HCl (UltRAM) 50 mg Q6H PRN PO MODERATE PAIN (4-6) 03/03/25 03:30 03/08/25 03:29 DC 03/07/25 12:42 50 MG Vancomycin HCl (Vancomycin Protocol) 1 each AD IV 02/23/25 19:00 02/23/25 19:33 DC Vasopressin 40 units/Sodium Chloride 40 ml @ 0 mls/hr PROTOCOL IV 03/03/25 01:30 03/07/25 15:20 DC Wound Care/ Dressing Products (Venelex Ointment) 1 APPLY BID BID TP 03/08/25 21:00 04/07/25 20:59 03/10/25 10:21 1 GM DIAGNOSTICS / RADIOLOGY: [ ] PATIENT: ADAM MOE III MR#: [id number] : 1980 SEX: M AGE: 44 LOCATION: 2AH ORDER 230 STATUS: ADM IN REPORT#: [id number] SERVICE [id number] REASON: Congestive heart failure ORDERING PHYSICIAN: ARMANDO OTT MD PROCEDURE: CXR1VW - CHEST 1VW CHEST 1VW HISTORY: Congestive heart failure COMPARISON: 03/09/2025 FINDINGS: A frontal projection of the chest was obtained. Mild bilateral pulmonary infiltrates are seen may be related to mild pulmonary vascular congestion with possible superimposed pneumonitis. Poststernotomy changes are seen. The heart is enlarged. Degenerative changes of the thoracolumbar spine are present. Degenerative changes are seen. IMPRESSION: 1. Mild bilateral pulmonary infiltrates are seen may be related to mild pulmonary vascular congestion with possible superimposed pneumonitis. DICTATED BY: CAROL HOWARD MD DATE: 03/10/251244 ELECTRONICALLY SIGNED BY: CAROL HOWARD MD DATE: 03/10/251248 ASSESSMENT: gram positive bacteremia POA Sepsis, POA Pneumonia, POA Acute hypoxic respiratory failure on CPAP, ABG confirms PO2 less than 60 mmHg, POA Acute on chronic diastolic heart failure with exacerbation POA Acute kidney injury stage II, POA Non ST segment elevated NH, most likely type 2 NH secondary to oxygen ischemic POA ITP, POA Uncontrolled diabetes mellitus type 2, POA Diabetic nephropathy, POA Cocaine, alcohol and tobacco use disorder, POA Fidelina esophagitis, POA Matthews's cyst, hematoma, left knee, POA Electrolyte abnormalities, POA Chronic anemia, POA 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 coli, Klebsiella) pathogens, on Zosyn, Linezolid, Doxycycline Bilateral multifocal pneumonia with superimposed pulmonary edema, improving clinically, likely secondary to endocarditis and fluid overload Acute on chronic kidney injury, Hypokalemia Volume overload secondary to congestive heart failure and valvular disease, on diuresis Chronic normocytic anemia, New-onset diabetes mellitus type 2, poorly controlled, monitor glucose closely Electrolyte imbalance hyponatremia, hypokalemia, hypomagnesemia, on repletion protocol Proteinuria with diabetic nephropathy PLAN: CXR: Mild bilateral pulmonary infiltrates; likely pulmonary vascular congestion with superimposed pneumonitis, improved from prior Mild metabolic alkalosis likely due to diuretics and volume shift. Bioprosthetic valve function awaiting baseline postop echo. Continue metoprolol tartrate 12.5 mg b.i.d., continue [id number] mg p.o. daily Continue amlodipine5 mg daily. To remove his chest tube and temporary pacing wires today. Continue ambulation plus cardiac rehabilitation. Continue furosemide 20 mg IV q.12h for volume management. Infectious disease: * Repeat blood cultures if febrile or WBC rises ID on board * Continue Linezolid 600 mg PO BID 4 weeks * Arrange outpatient follow-up with ID * Monitor CBC weekly for Linezolid-induced cytopenia Pulmonary: Critical Care consult has been placed. Supplemental oxygen support, CPAP support and BiPAP setting as necessary to maintain SpO2 levels greater than 92 Budesonide, albuterol ipratropium nebulizations. Monitor ABGs, O2 sats, chest x-ray. Appreciate Pulmonary and critical Care consult suggestions. * Maintain O? via nasal cannula at 1L/min * Wean off as tolerated * Daily chest physiotherapy; monitor ABG Cardiovascular: * Continue Metoprolol tartrate 12.5 mg BID, Aspirin 81 mg daily * Continue Amlodipine 5 mg PO daily * Continue cardiac rehab and outpatient cardiology follow-up * TTE post-op baseline available or to be done outpatient Operative management for pain we optimized the trial of NSAIDs and opioids p.r.n. given renal recovery. With ibuprofen 400 mg time dose and an opioid with the morphine2 g IV 1 time dose. Awaiting case management assistance for discharge medication support. Monitor UOP P, daily weights. Continue Lasix 20 mg IV q.12h Continue telemetry monitoring Monitor for post-op arrhythmia, tamponade, ischemia Daily CXR Close hemodynamic monitoring with drafter automotive design layout troponin, BNP. Continue telemetry monitoring * Monitor troponins and BNP; follow-up Echo post-op Renal/metabolic Monitor CR, BUN, GFR. Avoid nephrotoxins. Monitor glucose, proteinuria. Replete potassium, magnesium, phosphorus. for per facility protocol. * Strict I/Os, daily BMP * Replace K?, Mg? per protocol * Hold nephrotoxic meds PRN GI/nutrition Pantoprazole IV daily. Monitor for GI bleeding. Add thiamine, folate multivitamins if chronic alcohol use. 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 warfarin Musculoskeletal: Monitor left knee swelling Avoid NSAIDs due to BRENDAN. Ortho referral if worsening. Sedation/neuro: Precedex for sedation, taper as tolerated. Determine at bedtime for sleep hygiene. ICU delirium prevention with 3 orientation, mobility and lytes during the day. Endocrine: Glucose control with insulin. Monitor for ketones and TKA signs. Consider A1c when stable. Substance use: Assess for withdrawal. [facility] protocol p.r.n. if needed. Offered smoking cessation and substance abuse counseling. Discharge Planning: * Discharge today to home * Prescriptions for: * Linezolid 600 mg PO BID 4 weeks * Fondaparinux 2.5 mg SQ daily * Aspirin, Metoprolol, Amlodipine, Pantoprazole, Acetaminophen * Social work/telephonic case manager assisting with Linezolid cost * Outpatient follow-ups: * Cardiology * Infectious Disease * Primary Care * Hematology (HIT monitoring) Case management consult has been placed for further discharge planning. ATTESTATION BY PHYSICIAN I have seen and examined the patient. I reviewed the documentation, medical decision making, and treatment plan as noted by the resident above. I agree with the findings and plan of care. Benoit Martinez MD, RAGHAVA R MD Mar 10, 2025 15:47
[2025-03-10] MEDS ORDERED: ZYVOX 600 MG TAB PO SCH (17:00)
--- NOTE | 2025-03-10 18:33 | PN ---
[facility] PROGRESS NOTE Date Patient Seen: Mar 10, 2025 Time of Visit: 18:33 Supervising Physician: Dr. Lakhwinder Zamarripa Primary Care Physician: Self Referral MD Outpatient Specialists: Inpatient Consults: Dr Dumont PROBLEM LIST: - Acute Hypoxic respiratory failure POA Resolved -Acute on chronic diastolic heart failure w/ EF 50-55% on 2 D echo POA, resolving - Aortica Valvular vegetation present 1.4cm & Severe Aortic regurgitation, s/p Aortic valve replacement 03/02/25 Acute thrombocytopenia, r/o HIT on Arixtra Severe multifocal bilateral Bacterial Pneumonia SCAP score 20 Points, sputum culture positive for E coli and Klebsiella, treated -Bilateral Pleural Effusions POA -Acute Cystitis POA, treated -Normocytic anemia -Acute on chronic CKD stage IIIb -Fidelina esophagitis identified on EGD done 01/11/2025 -Bacterial endocarditis affecting the aortic valve (1.81x1.17 cm mass attached to the noncoronary cusp leaflet) identified on DRAKE done 01/11/2025 -Left atrial appendage thrombus identified on DRAKE done 01/11/2025 -Elevated troponin (type II LA) -thrombocytosis on admission, now with thrombocytopenia -Liver cirrhosis MELD Score 22 Points ( 19.6 % Estimated 3 month Mortality) -cholelithiasis -Esophagitis by EGD 01/11/2025 -CAD s/p PCI with IA Integrilin, aspiration thrombectomy, PTCA, and KISHORE placement (Promus 4.0x16 mm) in the proximal LAD done on 12/19/2015 -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 He is awake alert and oriented x 3. He reports some breakthrough pain to movement to vertical sternal incision line. 1 x dose ibuprofen added to tylenol regimen. otherwise no other complains. HH trending down. CR improving. Cr 1.4 and GFR 64. Chest XR - Bilateral pulmonary infiltrates are seen suggestive of pulmonary vascular congestion with possible superimposed pneumonitis. No interval change is seen. Per sugar laboratory assistant he may continue with Arixtra while he is in the hospital and then he may DC it once Discharged. Platelets have improved. From pulmonary standpoint stable for DC. ABX per ID recommends Zyvox po. 03/10/2025: At the time of my evaluation, the patient was lying in bed. His main complaint is midsternal surgical site pain. Vital signs today were stable. Laboratory data was notable for low H and H7.4 22.3 and a platelet count of 121. Chemistry panel was unremarkable. No imaging for review today. The patient continues on anticoagulation therapy with Arixtra. Continues on antibiotic therapy currently receiving Zyvox and Zosyn. The patient was up with physical therapy today and ambulated in the hallway. No other complaint. REVIEW OF SYSTEMS: General: No malaise or fever. Neurological: No fainting episodes or seizures. HEENT: No nasal congestion or nasal secretion. Respiratory: No cough, shortness of breath, or wheezing Cardiac: No chest pain or palpitations. Gastrointestinal: No vomiting or diarrhea. Genitourinary: No dysuria hematuria. Skin: No rashes or lesions. Hematological: No bruises or bleeding. Musculoskeletal: +Bilateral extremity swelling Psychiatric: No depression or panic attacks. PHYSICAL EXAM: GENERAL: alert, weak, awake oriented x 3, respiratory distress on room air saturating 97%. HEENT: EOMI, Sclera non icteric, moist mucosa NECK: Supple, no JVD, trachea midline LUNGS: Clear breath sounds bilaterally. No wheezes. Chest tube HEART: Regular rate and rhythm. Normal S1 and S2, without murmurs ABD: Obese Abdomen soft, nontender. Bowel sounds present EXT: No clubbing cyanosis 2+ bilateral lower extremity edema NEURO: Alert and oriented to person, follows commands Vital Signs (last 8hr) Date Time Temp Pulse Resp B/P (MAP) Pulse Ox O2 Delivery O2 Flow Rate FiO2 03/10/25 16:37 98.2 91 17 126/68 100 Room Air 03/10/25 11:30 98.1 77 18 125/64 99 Room Air LABS: Hematology Labs: Test 03/10/25 07:52 03/10/25 03:51 Range/Units Hemoglobin 7.4 L 14.0-18.0 g/dL Hematocrit 22.3 L 42-54 % White Blood Count 8.5 4.8-10.8 K/uL Red Blood Count 2.34 L 4.50-6.20 MIL/uL Mean Corpuscular Volume 90.2 79-99 fL Mean Corpuscular Hemoglobin 29.9 27.0-33.0 pg Mean Corpuscular Hemoglobin Concent 33.2 32.0-36.0 g/dL Red Cell Distribution Width 15.0 11.0-15.5 % Platelet Count 121 L 130-400 K/uL Mean Platelet Volume 11.1 H 7.5-10.5 fL Immature Granulocyte % (Auto) 0.5 0-1 % Neutrophils (%) (Auto) 55.6 40.0-77.0 % Lymphocytes (%) (Auto) 23.6 21.0-51.0 % Monocytes (%) (Auto) 11.3 3.0-13.0 % Eosinophils (%) (Auto) 8.1 H 0.0-8.0 % Basophils (%) (Auto) 0.9 0.0-5.0 % Neutrophils # (Auto) 4.7 1.8-7.7 K/uL Lymphocytes # (Auto) 2.0 1.0-4.8 K/uL Monocytes # (Auto) 1.0 0.1-1.0 K/uL Eosinophils # (Auto) 0.69 0.00-0.70 K/uL Basophils # (Auto) 0.08 0.00-0.20 K/uL Absolute Immature Granulocyte (auto 0.04 0-1 K/uL Nucleated Red Blood Cells 0.0 0.0-0.19 % Chemistry Labs: Test 03/10/25 03:51 Range/Units Sodium Level 138 136-145 mmol/L Potassium Level 3.9 3.5-5.1 mmol/L Chloride Level 104 101-111 mmol/L Carbon Dioxide Level 22 21-32 mmol/L Blood Urea Nitrogen 17 7-18 mg/dL Creatinine 1.3 0.5-1.3 mg/dL Glomerular Filtration Rate Calc 69 >90 mL/min Random Glucose 127 H 70-105 mg/dL Total Calcium 8.2 L 8.5-10.1 mg/dL Total Bilirubin 0.3 0.2-1.0 mg/dL Aspartate Amino Transf (AST/SGOT) 12 10-37 U/L Alanine Aminotransferase (ALT/SGPT) < 6 L 12-78 U/L Alkaline Phosphatase 79 50-136 U/L Total Protein 5.8 L 6.0-8.3 g/dL Albumin 2.1 L 3.5-5.0 g/dL DIAGNOSTICS / RADIOLOGY RESULTS: [ ] PLAN Maintain O2 sats above 92%. CV has cleared for DC once antibiotics for DC has been set up. Per ID ok to DC with zyvox po Follow CT surgeon recommendations Multimodal pain management Monitoring H&H Incentive spirometry q 1 hr Glycemic control with goal of 80-180 monitor electrolytes: K Goal of 4 Magnesium goal of 2 Replace accordingly 03/10/2025: For now, we are going to continue current management for the patient. He will continue antibiotic therapy as guided by the Infectious Disease specialist. We will continue to monitor the H&H trend and we will treat accordingly. Appreciate the input of the treating specialist. For the pulmonary standpoint, the patient is stable enough for discharge. We will continue to monitor while hospitalized. We will continue to provide general supportive care, GI and DVT prophylaxis. Further orders per attending MD and hospital course NEURO: Minimize central acting medications as possible. Maintain fall precautions, adequate lighting during the day PULMONARY: Supplemental 02 as needed. Maintain aspiration precautions at all times CARDIOVASCULAR: Follow hemodynamics. Vital signs per facility protocol GI & NUTRITION: Continue with nutritional support. Continue stool softeners and laxatives as needed. KIDNEYS & ELECTROLYTES: Strict monitoring of intake, output and overall fluid balance. Avoid nephrotoxic medications to the extent possible. Medications to be dosed according to renal function. Monitor electrolytes and replace as needed ENDOCRINE: Maintain blood glucose between 100-180 at all times. Hypoglycemia protocol in place INFECTIOUS DISEASE: Trend temperature, WBC and procalcitonin level Follow cultures, deescalate antibiotics as soon as possible. Panculture if new onset fever ONCOLOGY/HEMATOLOGY/COAGULATION: Monitor for s/s of bleeding Monitor hemoglobin, coagulation studies as needed SKIN: Pressure ulcer prevention per facility protocol Specialty mattress ORTHO/REHAB: Continue PT/OT Prophylaxis: Continue GI and DVT prophylaxis Code Status: Full Resuscitation Disposition: Per primary team Other: Case discussed with supervising physician plan of care agreed upon Time spent on care including review of chart, discussion of plan with patient and discussion with nursing staff exceeds 30 minutes. This does not include any billable procedures performed. RHEA ALICEA NP Mar 10, 2025 18:33
--- NOTE | 2025-03-10 20:39 | PN ---
The patient is status post minimally invasive aortic valve replacement for infectious endocarditis. The patient is doing well from a cardiac standpoint all week long. He is just receiving antibiotics. These have been converted to p.o. antibiotics. The remaining question is whether the patient has HIT and will need oral Pradaxa as an outpatient. Once the social issues are resolved, the patient can be discharged home from a cardiovascular surgery standpoint. TID: [id number] RECEIPT: [id number]
--- NOTE | 2025-03-10 23:26 | DS ---
Discharge Summary Assessment/Plan: ASSESSMENT: gram positive bacteremia POA Sepsis, POA Pneumonia, POA Acute hypoxic respiratory failure on CPAP, ABG confirms PO2 less than 60 mmHg, POA Acute on chronic diastolic heart failure with exacerbation POA Acute kidney injury stage II, POA Non ST segment elevated ME, most likely type 2 ME secondary to oxygen ischemic POA ITP, POA Uncontrolled diabetes mellitus type 2, POA Diabetic nephropathy, POA Cocaine, alcohol and tobacco use disorder, POA Fidelina esophagitis, POA Matthews's cyst, hematoma, left knee, POA Electrolyte abnormalities, POA Chronic anemia, POA 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 coli, Klebsiella) pathogens, on Zosyn, Linezolid, Doxycycline Bilateral multifocal pneumonia with superimposed pulmonary edema, improving clinically, likely secondary to endocarditis and fluid overload Acute on chronic kidney injury, Hypokalemia Volume overload secondary to congestive heart failure and valvular disease, on diuresis Chronic normocytic anemia, New-onset diabetes mellitus type 2, poorly controlled, monitor glucose closely Electrolyte imbalance hyponatremia, hypokalemia, hypomagnesemia, on repletion protocol Proteinuria with diabetic nephropathy PLAN: CXR: Mild bilateral pulmonary infiltrates; likely pulmonary vascular congestion with superimposed pneumonitis, improved from prior Mild metabolic alkalosis likely due to diuretics and volume shift. Bioprosthetic valve function awaiting baseline postop echo. Continue metoprolol tartrate 12.5 mg b.i.d., continue [id number] mg p.o. daily Continue amlodipine5 mg daily. To remove his chest tube and temporary pacing wires today. Continue ambulation plus cardiac rehabilitation. Continue furosemide 20 mg IV q.12h for volume management. Infectious disease: * Repeat blood cultures if febrile or WBC rises ID on board * Continue Linezolid 600 mg PO BID 4 weeks * Arrange outpatient follow-up with ID * Monitor CBC weekly for Linezolid-induced cytopenia Pulmonary: Critical Care consult has been placed. Supplemental oxygen support, CPAP support and BiPAP setting as necessary to maintain SpO2 levels greater than 92 Budesonide, albuterol ipratropium nebulizations. Monitor ABGs, O2 sats, chest x-ray. Appreciate Pulmonary and critical Care consult suggestions. * Maintain O? via nasal cannula at 1L/min * Wean off as tolerated * Daily chest physiotherapy; monitor ABG Cardiovascular: * Continue Metoprolol tartrate 12.5 mg BID, Aspirin 81 mg daily * Continue Amlodipine 5 mg PO daily * Continue cardiac rehab and outpatient cardiology follow-up * TTE post-op baseline available or to be done outpatient Operative management for pain we optimized the trial of NSAIDs and opioids p.r.n . given renal recovery. With ibuprofen 400 mg time dose and an opioid with the morphine2 g IV 1 time dose. Awaiting case management assistance for discharge medication support. Monitor UOP P, daily weights. Continue Lasix 20 mg IV q.12h Continue telemetry monitoring Monitor for post-op arrhythmia, tamponade, ischemia Daily CXR Close hemodynamic monitoring with unit nurse troponin, BNP. Continue telemetry monitoring * Monitor troponins and BNP; follow-up Echo post-op Renal/metabolic Monitor CR, BUN, GFR. Avoid nephrotoxins. Monitor glucose, proteinuria. Replete potassium, magnesium, phosphorus. for per facility protocol. * Strict I/Os, daily BMP * Replace K?, Mg? per protocol * Hold nephrotoxic meds PRN GI/nutrition Pantoprazole IV daily. Monitor for GI bleeding. Add thiamine, folate multivitamins if chronic alcohol use. 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 warfarin Musculoskeletal: Monitor left knee swelling Avoid NSAIDs due to BRENDAN. Ortho referral if worsening. Sedation/neuro: Precedex for sedation, taper as tolerated. Determine at bedtime for sleep hygiene. ICU delirium prevention with 3 orientation, mobility and lytes during the day. Endocrine: Glucose control with insulin. Monitor for ketones and TKA signs. Consider A1c when stable. Substance use: Assess for withdrawal. [facility] protocol p.r.n. if needed. Offered smoking cessation and substance abuse counseling. Discharge Planning: * Discharge today to home * Prescriptions for: * Linezolid 600 mg PO BID 4 weeks * Fondaparinux 2.5 mg SQ daily * Aspirin, Metoprolol, Amlodipine, Pantoprazole, Acetaminophen * Social work/case manager specialist assisting with Linezolid cost * Outpatient follow-ups: * Cardiology * Infectious Disease * Primary Care * Hematology (HIT monitoring) Case management consult has been placed for further discharge planning. Home Medications: Active Scripts Nystatin (Nystatin) 100,000 Unit/Ml Oral.susp, 5 ML PO QID for 20 Days, #200 ML 0 Refills Prov:ARMANDO OTT MD 02/01/25 Furosemide (Lasix 40Mg Tab) 40 Mg Tablet, 40 MG PO DAILY for 30 Days, #30 TAB Prov:ARMANDO OTT MD 01/31/25 Linezolid (Zyvox) 600 Mg/300 Ml Ivsoln, 600 MG IV [id number] PRN for infection for 42 Days, #84 ML 0 Refills Prov:ARMANDO OTT MD 01/31/25 Melatonin (Melatonin) 5 Mg Tablet, 10 MG PO HS PRN for INSOMNIA, #30 TAB Prov:ARMANDO OTT MD 01/31/25 Folic Acid (Folvite) 1 Mg Tab, 1 MG PO DAILY for 30 Days, #30 TAB Prov:ARMANDO OTT MD 01/31/25 ARMANDO OTT MD Mar 10, 2025 23:26
[2025-03-11] VITALS (7 sets, daily range): BP systolic 104–128; BP diastolic 70–77; PULSE 71–88; RESP 18–20; TEMP 98–98.8; O2SAT 98
[2025-03-11 04:07] LABS: BASOPHILS # (AUTO) 0.05 K/uL (0.00-0.20); BASOPHILS % (AUTO) 0.5 % (0.0-5.0); EOSINOPHILS # (AUTO) 0.52 K/uL (0.00-0.70); EOSINOPHILS % (AUTO) 5.5 % (0.0-8.0); IMMATURE GRANULOCYTE ABSOLUTE 0.03 K/uL (0-1); LYMPHOCYTES % (AUTO) 20.9 % (21.0-51.0); MEAN CORPUSCULAR HEMOGLOBIN 28.8 pg (27.0-33.0); MEAN CORPUSCULAR HGB CONC 32.2 g/dL (32.0-36.0); MEAN CORPUSCULAR VOLUME 89.5 fL (79-99); MONOCYTES # (AUTO) 1.1 K/uL (0.1-1.0); MONOCYTES % (AUTO) 11.7 % (3.0-13.0); NEUTROPHILS # (AUTO) 5.7 K/uL (1.8-7.7); NEUTROPHILS % (AUTO) 61.1 % (40.0-77.0); PLATELET COUNT (AUTO) 154 K/uL (130-400); RED BLOOD CELL COUNT(AUTO) 2.29 MIL/uL (4.50-6.20); WHITE BLOOD COUNT (AUTO) 9.4 K/uL (4.8-10.8)
[2025-03-11 04:16] LABS: HEMATOCRIT 20.5 % (42-54)
[2025-03-11 04:20] LABS: ALBUMIN 2.2 g/dL (3.5-5.0); ASPARTATE AMINOTRANSFERASE 13 U/L (10-37); BILIRUBIN,TOTAL 0.3 mg/dL (0.2-1.0); CARBON DIOXIDE 21 mmol/L (21-32); CHLORIDE 104 mmol/L (101-111); CREATININE 1.3 mg/dL (0.5-1.3); GLOMERULAR FILTR. RATE CALC 69 mL/min (>90); GLUCOSE,RANDOM 108 mg/dL (70-105); POTASSIUM 4.1 mmol/L (3.5-5.1); SODIUM SERUM 137 mmol/L (136-145); TOTAL PROTEIN, SERUM 6.1 g/dL (6.0-8.3); UREA NITROGEN, BLOOD 12 mg/dL (7-18)
[2025-03-11 04:21] LABS: ALANINE AMINOTRANSFERASE < 6 U/L (12-78)
--- NOTE | 2025-03-11 08:51 | HMCIMG ---
Exam Type: CHEST 1VW Clinical Information: Congestive heart failure Comparison: None Findings: Status post median sternotomy. There is prominence of the pulmonary vascular markings consistent with pulmonary venous congestion. . There is central bilateral perihilar edema consistent with congestive heart failure. The heart is enlarged in size. The bony and soft tissue structures of the chest are unremarkable. Impression: Congestive heart failure with perihilar edema as noted.
--- NOTE | 2025-03-11 09:20 | PN ---
[facility] PROGRESS NOTE Date Patient Seen: Mar 11, 2025 Time of Visit: 09:18 Supervising Physician: Dr. Huddleston Primary Care Physician: Self Referral MD Outpatient Specialists: Inpatient Consults: Dr Dumont PROBLEM LIST: - Acute Hypoxic respiratory failure POA Resolved -Acute on chronic diastolic heart failure w/ EF 50-55% on 2 D echo POA, resolving - [place] Valvular vegetation present 1.4cm & Severe Aortic regurgitation, s/p Aortic valve replacement 03/02/25 Acute thrombocytopenia, r/o HIT on Arixtra Severe multifocal bilateral Bacterial Pneumonia SCAP score 20 Points, sputum culture positive for E coli and Klebsiella, treated -Bilateral Pleural Effusions POA -Acute Cystitis POA, treated -Normocytic anemia -Acute on chronic CKD stage IIIb -Fidelina esophagitis identified on EGD done 01/11/2025 -Bacterial endocarditis affecting the aortic valve (1.81x1.17 cm mass attached to the noncoronary cusp leaflet) identified on DRAKE done 01/11/2025 -Left atrial appendage thrombus identified on DRAKE done 01/11/2025 -Elevated troponin (type II NC) -thrombocytosis on admission, now with thrombocytopenia -Liver cirrhosis MELD Score 22 Points ( 19.6 % Estimated 3 month Mortality) -cholelithiasis -Esophagitis by EGD 01/11/2025 -CAD s/p PCI with IA Integrilin, aspiration thrombectomy, PTCA, and KISHORE placement (Promus 4.0x16 mm) in the proximal LAD done on 12/19/2015 -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 He is awake alert and oriented x 3. He reports some breakthrough pain to movement to vertical sternal incision line. 1 x dose ibuprofen added to tylenol regimen. otherwise no other complains. HH trending down. CR improving. Cr 1.4 and GFR 64. Chest XR - Bilateral pulmonary infiltrates are seen suggestive of pulmonary vascular congestion with possible superimposed pneumonitis. No interval change is seen. Per security patrol officer he may continue with Arixtra while he is in the hospital and then he may DC it once Discharged. Platelets have improved. From pulmonary standpoint stable for DC. ABX per ID recommends Zyvox po. 03/10/2025: At the time of my evaluation, the patient was lying in bed. His main complaint is midsternal surgical site pain. Vital signs today were stable. Laboratory data was notable for low H and H7.4 22.3 and a platelet count of 121. Chemistry panel was unremarkable. No imaging for review today. The patient continues on anticoagulation therapy with Arixtra. Continues on antibiotic therapy currently receiving Zyvox and Zosyn. The patient was up with physical therapy today and ambulated in the hallway. No other complaint. 03/11/2025: At the time of my evaluation, the patient was sitting up at the bedside chair. The staff nurse reports no acute events overnight. The initial plan was for discharge home yesterday, but this was held due to lack of transportation. Today, he is reporting feeling well and has transportation available. On review of vital signs, these are generally stable. Laboratory data today was notable for H&H 6.6/20.5 and a platelet count of 154. Chemistry panel was unremarkable. Chest x-ray today was notable for pulmonary vascular congestion.. No other complaint. REVIEW OF SYSTEMS: General: No malaise or fever. Neurological: No fainting episodes or seizures. HEENT: No nasal congestion or nasal secretion. Respiratory: No cough, shortness of breath, or wheezing Cardiac: No chest pain or palpitations. Gastrointestinal: No vomiting or diarrhea. Genitourinary: No dysuria hematuria. Skin: No rashes or lesions. Hematological: No bruises or bleeding. Musculoskeletal: +Bilateral extremity swelling Psychiatric: No depression or panic attacks. PHYSICAL EXAM: GENERAL: alert, weak, awake oriented x 3, respiratory distress on room air saturating 97%. HEENT: EOMI, Sclera non icteric, moist mucosa NECK: Supple, no JVD, trachea midline LUNGS: Clear breath sounds bilaterally. No wheezes. Chest tube HEART: Regular rate and rhythm. Normal S1 and S2, without murmurs ABD: Obese Abdomen soft, nontender. Bowel sounds present EXT: No clubbing cyanosis 2+ bilateral lower extremity edema NEURO: Alert and oriented to person, follows commands Vital Signs (last 8hr) Date Time Temp Pulse Resp B/P (MAP) Pulse Ox O2 Delivery O2 Flow Rate FiO2 4/12/25 07:44 98.8 87 18 124/76 100 03/11/25 07:14 88 18 N/A Room Air 21 03/11/25 07:12 88 18 03/11/25 04:00 98.1 71 20 127/70 99 Room Air LABS: Hematology Labs: Test 03/11/25 03:44 Range/Units White Blood Count 9.4 4.8-10.8 K/uL Red Blood Count 2.29 L 4.50-6.20 MIL/uL Hemoglobin 6.6 *L 14.0-18.0 g/dL Hematocrit 20.5 *L 42-54 % Mean Corpuscular Volume 89.5 79-99 fL Mean Corpuscular Hemoglobin 28.8 27.0-33.0 pg Mean Corpuscular Hemoglobin Concent 32.2 32.0-36.0 g/dL Red Cell Distribution Width 15.0 11.0-15.5 % Platelet Count 154 # 130-400 K/uL Mean Platelet Volume 10.9 H 7.5-10.5 fL Immature Granulocyte % (Auto) 0.3 0-1 % Neutrophils (%) (Auto) 61.1 40.0-77.0 % Lymphocytes (%) (Auto) 20.9 L 21.0-51.0 % Monocytes (%) (Auto) 11.7 3.0-13.0 % Eosinophils (%) (Auto) 5.5 0.0-8.0 % Basophils (%) (Auto) 0.5 0.0-5.0 % Neutrophils # (Auto) 5.7 1.8-7.7 K/uL Lymphocytes # (Auto) 2.0 1.0-4.8 K/uL Monocytes # (Auto) 1.1 H 0.1-1.0 K/uL Eosinophils # (Auto) 0.52 0.00-0.70 K/uL Basophils # (Auto) 0.05 0.00-0.20 K/uL Absolute Immature Granulocyte (auto 0.03 0-1 K/uL Nucleated Red Blood Cells 0.0 0.0-0.19 % Chemistry Labs: Test 03/11/25 03:44 Range/Units Sodium Level 137 136-145 mmol/L Potassium Level 4.1 3.5-5.1 mmol/L Chloride Level 104 101-111 mmol/L Carbon Dioxide Level 21 21-32 mmol/L Blood Urea Nitrogen 12 7-18 mg/dL Creatinine 1.3 0.5-1.3 mg/dL Glomerular Filtration Rate Calc 69 >90 mL/min Random Glucose 108 H 70-105 mg/dL Total Calcium 8.2 L 8.5-10.1 mg/dL Total Bilirubin 0.3 0.2-1.0 mg/dL Aspartate Amino Transf (AST/SGOT) 13 10-37 U/L Alanine Aminotransferase (ALT/SGPT) < 6 L 12-78 U/L Alkaline Phosphatase 84 50-136 U/L Total Protein 6.1 6.0-8.3 g/dL Albumin 2.2 L 3.5-5.0 g/dL DIAGNOSTICS / RADIOLOGY RESULTS: [ ] PLAN Maintain O2 sats above 92%. CV has cleared for DC once antibiotics for DC has been set up. Per ID ok to DC with zyvox po Follow CT surgeon recommendations Multimodal pain management Monitoring H&H Incentive spirometry q 1 hr Glycemic control with goal of 80-180 monitor electrolytes: K Goal of 4 Magnesium goal of 2 Replace accordingly 03/10/2025: For now, we are going to continue current management for the patient. He will continue antibiotic therapy as guided by the Infectious Disease specialist. We will continue to monitor the H&H trend and we will treat accordingly. Appreciate the input of the treating specialist. For the pulmonary standpoint, the patient is stable enough for discharge. We will continue to monitor while hospitalized. We will continue to provide general supportive care, GI and DVT prophylaxis. Further orders per attending MD and hospital course 03/11/2025: For now, we are going to continue current management for the patient. The staff nurse did mentioned that the possibilities for the patient to discharge home today. Unfortunately, his H&H is significantly low. I am going to request a repeat H&H now to verify the values since the documented level was obtained approximately 3:00 a.m.. We will follow up with primary team regarding the low H&H and possibility of discharging this patient home today. We will monitor the patient's progress and response to management. We will continue to provide general supportive care, GI and DVT prophylaxis. Further orders per attending MD and hospital course. NEURO: Minimize central acting medications as possible. Maintain fall precautions, adequate lighting during the day PULMONARY: Supplemental 02 as needed. Maintain aspiration precautions at all times CARDIOVASCULAR: Follow hemodynamics. Vital signs per facility protocol GI & NUTRITION: Continue with nutritional support. Continue stool softeners and laxatives as needed. KIDNEYS & ELECTROLYTES: Strict monitoring of intake, output and overall fluid balance. Avoid nephrotoxic medications to the extent possible. Medications to be dosed according to renal function. Monitor electrolytes and replace as needed ENDOCRINE: Maintain blood glucose between 100-180 at all times. Hypoglycemia protocol in place INFECTIOUS DISEASE: Trend temperature, WBC and procalcitonin level Follow cultures, deescalate antibiotics as soon as possible. Panculture if new onset fever ONCOLOGY/HEMATOLOGY/COAGULATION: Monitor for s/s of bleeding Monitor hemoglobin, coagulation studies as needed SKIN: Pressure ulcer prevention per facility protocol Specialty mattress ORTHO/REHAB: Continue PT/OT Prophylaxis: Continue GI and DVT prophylaxis Code Status: Full Resuscitation Disposition: Per primary team Other: Case discussed with supervising physician plan of care agreed upon Time spent on care including review of chart, discussion of plan with patient and discussion with nursing staff exceeds 30 minutes. This does not include any billable procedures performed. RHEA ALICEA NP Mar 11, 2025 09:20
[2025-03-11] MEDS: FERROUS SULFATE 300 MG/5 ML LIQ UDCUP PO SCH (10:01)
[2025-03-11 10:57] LABS: HEMATOCRIT 22.5 % (42-54)
[2025-03-11] MEDS: morPHINE 2 MG SYG IVP ONE (11:51)
--- NOTE | 2025-03-11 12:13 | PN ---
[facility] CARDIOLOG[facility] PROGRESS NOTE Date Patient Seen: Mar 11, 2025 Time of Visit: 11:55 Interval History: This 44-year-old Latin-[place] male was recently hospitalized for aortic valve endocarditis and was found to have aortic insufficiency on prior 2D echoc ardiogram 02/24/2025. He had normal LV systolic function with an LVEF of 60-65%. He is now postop day #9 status post aortic valve replacement with a 23 mm Inspiris bioprosthetic aortic valve 03/02/[address] Devlin. His postoperative course has been lately and associated with possible heparin induced thrombocytopenia. He was treated with Arixtra. He has been stable overnight and arrangements have been made for him to begin Xarelto 20 mg p.o. daily per Hematology. In addition he will continue p.o. antibiotic therapy with Zyvox for another 4 weeks. No other acute events overnight and his discharge yesterday was delayed due to no transportation. Plans are to proceed with discharge home today. Physical Examination: GENERAL: No acute distress. HEAD: Normal with no signs of head trauma. EYES: PERRLA, EOMI, conjunctiva and sclera normal. NECK: Supple without JVD. There is no tenderness, lymphadenopathy, or masses. No thyromegaly. Normal carotid upstrokes without bruits. LUNGS: Clear breath sounds bilaterally. No wheezes, or rhonchi. HEART: Normal rate and rhythm. Normal S1 and S2 a 2/6 early peaking systolic ejection murmur at the right upper sternal border. There is no diastolic murmur. VASC: Peripheral pulses +2 bilaterally. EXT: No clubbing, cyanosis or edema. Median sternotomy is open to air, well approximated. NEURO: Awake, alert, and oriented x3. No focal neurological deficits noted. Laboratory: Hematology Labs: Test 03/11/25 10:50 03/11/25 03:44 Range/Units Hemoglobin 7.2 L 14.0-18.0 g/dL Hematocrit 22.5 L 42-54 % White Blood Count 9.4 4.8-10.8 K/uL Red Blood Count 2.29 L 4.50-6.20 MIL/uL Mean Corpuscular Volume 89.5 79-99 fL Mean Corpuscular Hemoglobin 28.8 27.0-33.0 pg Mean Corpuscular Hemoglobin Concent 32.2 32.0-36.0 g/dL Red Cell Distribution Width 15.0 11.0-15.5 % Platelet Count 154 # 130-400 K/uL Mean Platelet Volume 10.9 H 7.5-10.5 fL Immature Granulocyte % (Auto) 0.3 0-1 % Neutrophils (%) (Auto) 61.1 40.0-77.0 % Lymphocytes (%) (Auto) 20.9 L 21.0-51.0 % Monocytes (%) (Auto) 11.7 3.0-13.0 % Eosinophils (%) (Auto) 5.5 0.0-8.0 % Basophils (%) (Auto) 0.5 0.0-5.0 % Neutrophils # (Auto) 5.7 1.8-7.7 K/uL Lymphocytes # (Auto) 2.0 1.0-4.8 K/uL Monocytes # (Auto) 1.1 H 0.1-1.0 K/uL Eosinophils # (Auto) 0.52 0.00-0.70 K/uL Basophils # (Auto) 0.05 0.00-0.20 K/uL Absolute Immature Granulocyte (auto 0.03 0-1 K/uL Nucleated Red Blood Cells 0.0 0.0-0.19 % Chemistry Labs: Test 03/11/25 03:44 Range/Units Sodium Level 137 136-145 mmol/L Potassium Level 4.1 3.5-5.1 mmol/L Chloride Level 104 101-111 mmol/L Carbon Dioxide Level 21 21-32 mmol/L Blood Urea Nitrogen 12 7-18 mg/dL Creatinine 1.3 0.5-1.3 mg/dL Glomerular Filtration Rate Calc 69 >90 mL/min Random Glucose 108 H 70-105 mg/dL Total Calcium 8.2 L 8.5-10.1 mg/dL Total Bilirubin 0.3 0.2-1.0 mg/dL Aspartate Amino Transf (AST/SGOT) 13 10-37 U/L Alanine Aminotransferase (ALT/SGPT) < 6 L 12-78 U/L Alkaline Phosphatase 84 50-136 U/L Total Protein 6.1 6.0-8.3 g/dL Albumin 2.2 L 3.5-5.0 g/dL Diagnostics / Radiology: Copy/Paste Echos/Imaging Report here Impression and Plan: Severe aortic insufficiency, secondary to endocarditis: S/P Aortic valve replacement with a 23 mm Inspiris bioprosthetic aortic valve 03/02/[address] Devlin -today is postop day #9 status post bioprosthetic aortic valve replacement -his postop course has been lengthy and there was acute on chronic anemia with the associated thrombocytopenia and was managed for possible heparin induced thrombocytopenia with Arixtra. -he has been seen in follow-up by Dr. Quinn and plans are to discharge home with Xarelto 20 mg p.o. daily and continue outpatient follow-up -stable overnight. Discharge yesterday was delayed due to no transportation with plans for discharge home today -Follow-up with Dr. Anna Hilario in 2-3 weeks at [facility] Aortic valve anterior endocarditis (1.81x1.17 cm mass attached to the noncoronary cusp leaflet) identified on DRAKE done 01/11/2025: -we will continue with p.o. Zyvox to complete 4 weeks per ID recommendations -follow-up with ID upon discharge Acute on chronic diastolic congestive heart failure, stable: -continue furosemide 40 mg p.o. daily Hospital comorbidities: Hypertension Hyperlipidemia Pneumonia Urinary tract infection Acute on chronic CKD stage IIIb, baseline creatinine of 2 Fidelina esophagitis identified on EGD done 01/11/2025 Left atrial appendage thrombus identified on DRAKE done 01/11/2025 Normal LV systolic function (LVEF: 60-65% by echo done 01/11/2025) Elevated troponin (type II CO), peaking in the 400s, with essentially nonobstructive coronary artery disease by follow-up cardiac catheterization 03/01/2025 in which there was a patent proximal LAD stent and there was 20-30% proximal and mid to distal RCA stenosis History of ITP in 12/2024 Liver cirrhosis Esophagitis by EGD 01/11/2025 CAD s/p PCI with IA Integrilin, aspiration thrombectomy, PTCA, and KISHORE placement (Promus 4.0x16 mm) in the proximal LAD done on 12/19/2015 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
[2025-03-11] MEDS ORDERED: FERR-72 PO (12:36)
[2025-03-11] MEDS ORDERED: AMLO-915 PO (12:36)
[2025-03-11] MEDS ORDERED: METO25TA6 PO (12:36)
[2025-03-11] MEDS ORDERED: RIVA20TA PO (12:38)
[2025-03-11] MEDS ORDERED: LINE600T11 PO (12:38)
--- NOTE | 2025-03-11 14:51 | NUR ---
DISCHARGE HOME ID BANDS AND TELEPAK REMOVED. PICC LINE REMOVED AND PRESSURE APPLIED FOR 15 MINUTES. NO BLEEDING NOTED, PATIENT TOLERATED WELL. DISCHARGE INSTRUCTIONS GIVEN AND EXPLAINED TO PATIENT AND SIGNIFICANT OTHER. PATIENT WHEELED DOWN TO PRIVATE CAR.
--- NOTE | 2025-03-11 15:02 | DS ---
Discharge Summary Hospital Course Summary: 54-year-old male with a complex medical history including recent hospitalization with a Gram-positive bacteremia secondary to Staph aureus, severe sepsis and endocarditis with echogenic vegetations on noncoronary cusps and right coronary cusp as well as left atrial appendage clot on January 11, 2025 presented to the ED days history of worsening shortness of breath. He was discharged on January 31, 2025 with long-term IV linezolid via PICC line for infective endocarditis. Since 3 days he reports progressive dyspnea, worsened acutely today. He denies chest pain but notes fatigue and exertional intolerance. There is no reported fever or chills. He was in mild respiratory distress on arrival. Notably has a past medical history of Fidelina esophagitis, uncontrolled diabetes mellitus type 2 BRENDAN, immune thrombocytopenic purpura, UTI Klebsiella and substance abuse with cocaine alcohol and tobacco. So on physical examination he is positive for shortness of breaths and cough no hemoptysis. His lungs have expiratory wheezes and diffuse crackling bilaterally. He is tachycardic with regular rhythm. His WBC count is at 18, hemoglobin at 10.5 and platelet count at 470 K with leukocytosis chronic anemia and thrombocytosis, chemistry is with creatinine showing 2.2, BUN at and CO2 at 18.2 magnesium low consistent with BRENDAN, electrolyte derangements. His arterial blood gas analysis reveals a pH of 7.469, PaCO2 of 26, PO2 of 54.6, HC03 of 18.2 and saturation of 90.2 Representing acute hypoxic respiratory failure with respiratory alkalosis. Serum lactate is elevated at 3.6 persistent lactic acidosis. BNP is at 2410 suggesting cardiac strain or volume overload. And troponin is elevated at [address] segment elevated WA. and urine analysis positive concerning for UTI and nephropathy due to positive hyaline casts. Chest x-ray reveals diffuse bilateral opacities consistent with pneumonia and chest CT scan reveals bilateral pleural effusion bilateral ground-glass pulmonary infiltrates are seen renal ultrasound reveals no hydronephrosis. And a CT scan also revealed g allstone. Echo is ordered to assess vegetations, LA clot and EF. Lower extremity Doppler revealed no DVT, Matthews's cyst versus hematoma in the left knee. EGD from prior history Fidelina esophagitis. The patient is admitted to ICU with the critical Care and Cardiology and Infectious Disease consult has been placed for further management currently on Precedex drip and CPAP setting with tidal volume of 657 and a rate of 36 and PIP of15 and ve of 23.2. Furosemide 40 q.12h is added in addition to his antibiotics monitoring the patient closely and discuss the goal of care with the patient and he agreed upon with it. 02/25/2025. Patient seen and examined along with RN. Feels better , breathing has improved. Continues to be on IV Lasix and metolazone was added. Cardiology and critical Care on board CT surgery was consulted for severe aortic regurgitation.] 02/26/25 review cash van salesperson's note in detail. CT surgery was consulted regarding to his severe AI. Patient continues with diuretics in IV antibiotics. No fevers denies chest pain. 02/27/25 44-year-old male with a complex medical history including infective endocarditis, severe aortic insufficiency, CHF, BRENDAN, diabetic nephropathy, bilateral pneumonia, and recent gram-negative sepsis, is clinically improving. The patient reports that shortness of breath has been improving slowly over the past 48 hours. He currently denies chest pain, fever, or chills. He is tolerating medications and oral intake well. He remains on low-flow oxygen at 1L via nasal cannula, saturating well at 98%, ambulating to the chair with mild fatigue but no acute respiratory distress. No complaints of palpitations or dizziness. He is aware of the upcoming left heart catheterization and understands the indication for aortic valve replacement surgery. No family was present during bedside examination WBC: 11.7 (? from 13.2) improving leukocytosis February 28 2025 44-year-old male with severe [place] aortic valve insufficiency, bacterial endocarditis, and worsening pulmonary congestion, was upgraded to PCCU today due to clinical and radiographic deterioration. He remains dyspneic and hypoxic despite low-flow oxygen support. He reports difficulty breathing, especially in the supine position, and has been unable to tolerate lying flat due to severe orthopnea. He feels increasingly fatigued, lightheaded, and weak. Denies chest pain, fevers, chills, or palpitations. He is aware of his pending left heart catheterization and the need for aortic valve replacement surgery and verbalizes continued understanding and consent March 01 2025 The patient was examined at bedside this morning. He remains alert and oriented, and in no acute distress while sitting up. He reports increased shortness of breath when lying back or attempting to sleep supine, consistent with severe orthopnea, though otherwise states that he is feeling okay. He is NPO for the planned left heart catheterization scheduled for today as part of the workup for severe [place] aortic insufficiency with large vegetation and worsening decomp ensated heart failure. He has no new complaints of chest pain, fever, chills, nausea, or dizziness. He verbalizes understanding of the planned cardiac intervention and its associated risks, including contrast use, bleeding, arrhythmia, and need for surgical valve replacement afterward. March 02 2025 The patient was evaluated at bedside this morning. He was found sitting upright, hemodynamically stable, alert, and oriented. He reports no acute complaints at this time, denies chest pain, palpitations, nausea, or dizziness. He remains on 2L O? via nasal cannula, comfortable at rest, and is awaiting surgical intervention today for severe aortic valve regurgitation. The patient underwent left and right heart catheterization yesterday which revealed normal coronary anatomy with mild non-obstructive CAD. Cardiology has cleared the patient for surgical aortic valve repair. He has been informed of the risks and benefits of the procedure and has provided informed consent. His oxygen saturation and hemodynamics remain stable. He denies orthopnea today. 03/03/25 The patient was examined at bedside this morning, currently Post-Operative Day 1 following successful aortic valve replacement for [place] valve endocarditis. He is sitting upright in bed, alert and oriented, and reports that he is doing okay overall. He denies shortness of breath or chest discomfort but reports moderate incisional pain, well controlled with PRN Tylenol and tramadol. He reports mild fatigue but no nausea, dizziness, palpitations, or changes in vision. He is tolerating clear liquids. He has been out of bed to chair. No major overnight events noted. 03/04/25 Patient is evaluated at bedside this morning on postoperative day2 following bioprosthetic AV valve replacement for [place] valve infective endocarditis with severe regurgitation. He appears clinically improved. He denies chest pain, shortness of breath, dizziness, nausea, vomiting or other acute complaints. He reports mild fatigue and incisional pain, which is well controlled with acetaminophen p.r.n.. He is now breathing comfortably on room air, requiring no supplemental O2 and weaned off all vasopressors and inotropes. Appetite has improved. No complaints of orthopnea or PND. He continues to void adequately, although noted to have some postop anemia and mild thrombocytopenia. He is aware of ongoing recovery and upcoming transfusion today for symptomatic anemia. He has pain sitting up in the recliner. 03/05/25 patient seen and examined. Care discussed with the. Cardiology consulted Hematology for anticoagulation management He presented with severe symptomatic aortic valve insufficiency in the setting of bacterial endocarditis. He is status post bioprosthetic aortic valve replacement 03/02/2025. Continue aspirin 81 mg once daily. 03/06/25 Patient was examined at bedside this morning. He is currently off supplemental O2, breathing comfortably on room air with SpO2 of 98%, and hemodynamically stable. He is sitting upright in a recliner, awake, alert, oriented and reports feeling better overall. He denies chest pain, shortness of breath at rest, or dizziness. He notes mild bilateral leg swelling, but denies any pain, erythema or tenderness. He is ambulating with assistance, tolerating oral intake, and urinating spontaneously. His central line was removed and PICC line remains in place. Chest tube remains with a with decreased output today of 160 mL. He has not required vasopressors or inotropes, and respiratory parameters are stable. He is he understands that he has been downgraded from ICU to PCCU as a part of recovery plan. Awaiting Hematology recommendations for anti coagulation. 03/07/25 Patient was examined at bedside this morning and reports he is feeling much better overall. His hemodynamically stable, breathing on room air, and ambulating with assistance through cardiac rehabilitation. He denies chest pain, palpitations, shortness of breath, nausea, vomiting, dizziness or syncope. His chest tube drainage decreased to 120 mL and both chest tubes and temporary pacing wires are scheduled to be removed today. He requires 6 weeks of IV antibiotic therapy via PICC line. And currently on linezolid doxycycline and Zosyn. The patient's acute kidney injury is improving from creatinine improved to 1.6 down from 2.1 yesterday. He is tolerating his current antihypertensive regimen. His thrombocytopenia has resolved with platelet counts improving to 133 K, and he is now on fondaparinux 2.5 mg as Q daily per hematology guidance for anticoagulation, avoid heparin products. 03/08/25 The patient was evaluated at bedside this morning. He states he is doing good and continues to breathe comfortably on room air. He denies shortness of breath, dizziness, nausea, or chest pain but notes mild incisional chest discomfort, described as soreness or pressure, likely post-sternotomy musculoskeletal pain. He has been ambulating and participating in cardiac rehab with minimal support. He has no fevers or chills, is tolerating oral intake, and understands the plan for discharge. He has been weaned off all IV drips and oxygen. Urine output remains stable. Patient is aware that long-term oral antibiotic therapy is needed and that the egg caser is helping arrange prescriptions given financial barriers. Cardiology, ID, and Hematology have cleared him for discharge from their respective standpoints. Antibiotic choice finalized as Linezolid 600 mg PO BID 4 weeks per ID. 03/09/25 Was evaluated at bedside today. He reports persistent, steady incisional chest pain following recent removal of chest tubes and pacing wires. The pain is described as dull and dragging located behind the sternum, without radiation and worsens with movement or deep inspiration. He denies chest pressure shortness of breath palpitation or fever. He remains hemodynamically stable breathing on room air and clinically improving overall. Renal function has improved, allowing cautious trial of NSAIDs. Pain appears musculoskeletal in nature and consistent with post sternotomy discomfort. Case management continues working on obtaining4 weeks of oral antibiotic linezolid and discharge planning includes transitioning to warfarin with an INR goal of 2-3 for long-term anticoagulation post discharge. Because be evaluated other anticoagulation options but he is unfunded and he can not afford those. Count is 8.5 normal, hemoglobin is 7.4 Decreased from 8.5 monitoring no symptoms of active bleeding, hematocrit is at 22.5 low platelet count is improving from 1 not3 K yesterday to117 K today. CMP is within normal limits creatinine is 1.4 improving from 1.5 yesterday and chest x-ray no interval changes. 03/10/25 Patient was examined at bedside this morning. He states he is feeling well overall. He denies chest pain, palpitations, shortness of breath, dizziness, nausea, or fever. He reports that his previous incisional chest discomfort has improved significantly. He is ambulating independently and tolerating oral intake. He is breathing comfortably on room air, is hemodynamically stable, and has no signs of infection or decompensation. He has been provided with a 4-week prescription for oral Linezolid, arranged by case management. Hematology is assisting with arranging samples for outpatient anticoagulation. 03/11/2025. Patient was seen and examined along with RN. His hemoglobin today initially showed 6.4 but repeat one was 7.3 patient was cleared from Cardiology Cardiovascular and Hematology and ID point of view for discharge. Patient already has four week supply of Zyvox oral with him, Xarelto 20 mg daily 30 day supply, he will follow up with Cardiology, Cardiovascular surgery, Hematology, Infectious Disease, Human Resources Consultant(s): Dr. Hilario cardiology. Dr. Ortiz hematology. JAIME ALLEN MD Cardiovascular surgery Procedure(s): OPERATIVE REPORT Name: ADAM MOE III Acct: [id number] MR: [id number] : 1980 Admit Date: 02/23/25 DESIREE GERARDO MD [place] [address] [place] [id number] DATE OF PROCEDURE: 03/02/2025 TIME: 6:00 p.m. PREOPERATIVE DIAGNOSES: * Aortic valve endocarditis. * Aortic valve insufficiency. POSTOPERATIVE DIAGNOSES: * Aortic valve endocarditis. * Aortic valve insufficiency. PROCEDURE PERFORMED: Aortic valve replacement with a 23 mm Inspiris bioprosthetic valve. INDICATIONS: This is a 44-year-old gentleman who presented with shortness of breath, fatigue and fever. He was found to have aortic valve endocarditis and severe aortic insufficiency inpatient. We had discuss with him about the risks and benefits of surgery. In addition, we had a discussion about the type of valve. We discussed about the bioprosthetic valve. He prefers that because he does not have to take anticoagulation, even though he is on the younger side. I explained the benefits and the risks including loss of limb, loss of life, bleeding, infection, stroke and others. He understood and he wished to proceed with surgery. DESCRIPTION OF PROCEDURE: Following anesthesia induction without any complication and proper preparation of the operative field, the mediastinum was entered through a median sternotomy incision. Total heparin dose was given to the patient. Subsequently, the patient's ascending aorta and right atria were cannulated and connected to the pump. An antegrade cardioplegia was inserted in ascending aorta and connected to cardioplegia line and right superior pulmonary vein vent was inserted and advanced into the left ventricle and connected to the vent line. After that, the patient was placed on full flow cardiopulmonary bypass. The aorta was then crossclamped and antegrade cardioplegia was given to the ascending aorta. We then opened the aorta and gave direct cardioplegia given the severity of the aortic insufficiency to the left and the right ostia. After that, we dissected the aortic valve leaflets and sent them for cultures. Subsequently, I inspected the mitral valve in detail. There were no lesions on the mitral valve or any other destruction in the aortic root components. As a result, we irrigated the root extensively, placed circumferential 2-0 Ti-Cron sutures with pledgets on the ventricular site and then we measured the annulus to be 23 mm Inspiris bioprosthetic valve. We then brought the valve into the field and we passed the sutures through the sewing ring of the valve. The valve was then down to the annulus. The sutures were then secured with Cor-Knot device. After that, irrigation was performed again. The valve was inspected and was sitting in a nice position. It was not compromising the coronary ostia. After that, the aorta was closed in a 2-layer fashion using a 4-0 Prolene suture. Subsequently, the crossclamp was released and the heart started beating spontaneously into sinus rhythm. We were able to wean off cardiopulmonary bypass without any issues. There was quite a bit of coagulopathy given the endocarditis and the infection. So, we had to give a lot of platelet factor 7 and Kcentra in an effort to stop the bleeding, which was diffuse. After a maybe 30-45 minutes, we were able to stop and the bleeding subsided. We inserted 2 chest tubes, one on the left pleura and one in the mediastinum. The sternum was closed with 7 wires. The fascia was closed with #1 Vicryl. The skin was closed with 4-0 Monocryl suture. I was present throughout the entire operation. The patient tolerated the operation well and transferred to the intensive care unit in stable condition. Assessment/Plan: ASSESSMENT: gram positive bacteremia POA Sepsis, POA Pneumonia, POA Acute hypoxic respiratory failure on CPAP, ABG confirms PO2 less than 60 mmHg, POA Acute on chronic diastolic heart failure with exacerbation POA Acute kidney injury stage II, POA Non ST segment elevated WA, most likely type 2 WA secondary to oxygen ischemic POA ITP, POA Uncontrolled diabetes mellitus type 2, POA Diabetic nephropathy, POA Cocaine, alcohol and tobacco use disorder, POA Fidelina esophagitis, POA Matthews's cyst, hematoma, left knee, POA Electrolyte abnormalities, POA Chronic anemia, POA Severe aortic valve insufficiency secondary to infective endocarditis, with large non-coronary cusp vegetation (1.4 cm), EF preserved planned for aortic valve replacement [place] valve infective endocarditis, subacute, gram-positive (Micrococcus) and gram-negative (E. coli, Klebsiella) pathogens, on Zosyn, Linezolid, Doxycycline Bilateral multifocal pneumonia with superimposed pulmonary edema, improving clinically, likely secondary to endocarditis and fluid overload Acute on chronic kidney injury, Hypokalemia Volume overload secondary to congestive heart failure and valvular disease, on diuresis Chronic normocytic anemia, New-onset diabetes mellitus type 2, poorly controlled, monitor glucose closely Electrolyte imbalance hyponatremia, hypokalemia, hypomagnesemia, on repletion protocol Proteinuria with diabetic nephropathy PLAN: CXR: Mild bilateral pulmonary infiltrates; likely pulmonary vascular congestion with superimposed pneumonitis, improved from prior Mild metabolic alkalosis likely due to diuretics and volume shift. Bioprosthetic valve function awaiting baseline postop echo. Continue metoprolol tartrate 12.5 mg b.i.d., continue [id number] mg p.o. daily Continue amlodipine5 mg daily. To remove his chest tube and temporary pacing wires today. Continue ambulation plus cardiac rehabilitation. Continue furosemide 20 mg IV q.12h for volume management. Infectious disease: * Repeat blood cultures if febrile or WBC rises ID on board * Continue Linezolid 600 mg PO BID 4 weeks * Arrange outpatient follow-up with ID * Monitor CBC weekly for Linezolid-induced cytopenia Pulmonary: Critical Care consult has been placed. Supplemental oxygen support, CPAP support and BiPAP setting as necessary to maintain SpO2 levels greater than 92 Budesonide, albuterol ipratropium nebulizations. Monitor ABGs, O2 sats, chest x-ray. Appreciate Pulmonary and critical Care consult suggestions. * Maintain O? via nasal cannula at 1L/min * Wean off as tolerated * Daily chest physiotherapy; monitor ABG Cardiovascular: * Continue Metoprolol tartrate 12.5 mg BID, Aspirin 81 mg daily * Continue Amlodipine 5 mg PO daily * Continue cardiac rehab and outpatient cardiology follow-up * TTE post-op baseline available or to be done outpatient Operative management for pain we optimized the trial of NSAIDs and opioids p.r.n. given renal recovery. With ibuprofen 400 mg time dose and an opioid with the morphine2 g IV 1 time dose. Awaiting case management assistance for discharge medication support. Monitor UOP P, daily weights. Continue Lasix 20 mg IV q.12h Continue telemetry monitoring Monitor for post-op arrhythmia, tamponade, ischemia Daily CXR Close hemodynamic monitoring with hide selector troponin, BNP. Continue telemetry monitoring * Monitor troponins and BNP; follow-up Echo post-op Renal/metabolic Monitor CR, BUN, GFR. Avoid nephrotoxins. Monitor glucose, proteinuria. Replete potassium, magnesium, phosphorus. for per facility protocol. * Strict I/Os, daily BMP * Replace K?, Mg? per protocol * Hold nephrotoxic meds PRN GI/nutrition Pantoprazole IV daily. Monitor for GI bleeding. Add thiamine, folate multivitamins if chronic alcohol use. 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 warfarin Musculoskeletal: Monitor left knee swelling Avoid NSAIDs due to BRENDAN. Ortho referral if worsening. Sedation/neuro: Precedex for sedation, taper as tolerated. Determine at bedtime for sleep hygiene. ICU delirium prevention with 3 orientation, mobility and lytes during the day. Endocrine: Glucose control with insulin. Monitor for ketones and TKA signs. Consider A1c when stable. Substance use: Assess for withdrawal. [facility] protocol p.r.n. if needed. Offered smoking cessation and substance abuse counseling. Discharge Planning: * Discharge today to home * Prescriptions for: * Linezolid 600 mg PO BID 4 weeks * Fondaparinux 2.5 mg SQ daily * Aspirin, Metoprolol, Amlodipine, Pantoprazole, Acetaminophen * Social work/egg caser assisting with Linezolid cost * Outpatient follow-ups: * Cardiology * Infectious Disease * Primary Care * Hematology (HIT monitoring) Case management consult has been placed for further discharge planning. Discharge Instructions: Laboratory Tests Test 03/10/25 03:51 03/10/25 07:52 03/11/25 03:44 03/11/25 10:50 White Blood Count 8.5 K/uL (4.8-10.8) 9.4 K/uL (4.8-10.8) Red Blood Count 2.34 MIL/uL (4.50-6.20) L 2.29 MIL/uL (4.50-6.20) L Hemoglobin 7.0 g/dL (14.0-18.0) *L 7.4 g/dL (14.0-18.0) L 6.6 g/dL (14.0-18.0) *L 7.2 g/dL (14.0-18.0) L Hematocrit 21.1 % (42-54) L 22.3 % (42-54) L 20.5 % (42-54) *L 22.5 % (42-54) L Mean Corpuscular Volume 90.2 fL (79-99) 89.5 fL (79-99) Mean Corpuscular Hemoglobin 29.9 pg (27.0-33.0) 28.8 pg (27.0-33.0) Mean Corpuscular Hemoglobin Concent 33.2 g/dL (32.0-36.0) 32.2 g/dL (32.0-36.0) Red Cell Distribution Width 15.0 % (11.0-15.5) 15.0 % (11.0-15.5) Platelet Count 121 K/uL (130-400) L 154 K/uL (130-400) # Mean Platelet Volume 11.1 fL (7.5-10.5) H 10.9 fL (7.5-10.5) H Immature Granulocyte % (Auto) 0.5 % (0-1) 0.3 % (0-1) Neutrophils (%) (Auto) 55.6 % (40.0-77.0) 61.1 % (40.0-77.0) Lymphocytes (%) (Auto) 23.6 % (21.0-51.0) 20.9 % (21.0-51.0) L Monocytes (%) (Auto) 11.3 % (3.0-13.0) 11.7 % (3.0-13.0) Eosinophils (%) (Auto) 8.1 % (0.0-8.0) H 5.5 % (0.0-8.0) Basophils (%) (Auto) 0.9 % (0.0-5.0) 0.5 % (0.0-5.0) Neutrophils # (Auto) 4.7 K/uL (1.8-7.7) 5.7 K/uL (1.8-7.7) Lymphocytes # (Auto) 2.0 K/uL (1.0-4.8) 2.0 K/uL (1.0-4.8) Monocytes # (Auto) 1.0 K/uL (0.1-1.0) 1.1 K/uL (0.1-1.0) H Eosinophils # (Auto) 0.69 K/uL (0.00-0.70) 0.52 K/uL (0.00-0.70) Basophils # (Auto) 0.08 K/uL (0.00-0.20) 0.05 K/uL (0.00-0.20) Absolute Immature Granulocyte (auto 0.04 K/uL (0-1) 0.03 K/uL (0-1) Nucleated Red Blood Cells 0.0 % (0.0-0.19) 0.0 % (0.0-0.19) Sodium Level 138 mmol/L (136-145) 137 mmol/L (136-145) Potassium Level 3.9 mmol/L (3.5-5.1) 4.1 mmol/L (3.5-5.1) Chloride Level 104 mmol/L (101-111) 104 mmol/L (101-111) Carbon Dioxide Level 22 mmol/L (21-32) 21 mmol/L (21-32) Blood Urea Nitrogen 17 mg/dL (7-18) 12 mg/dL (7-18) Creatinine 1.3 mg/dL (0.5-1.3) 1.3 mg/dL (0.5-1.3) Glomerular Filtration Rate Calc 69 mL/min (>90) 69 mL/min (>90) Random Glucose 127 mg/dL (70-105) H 108 mg/dL (70-105) H Total Calcium 8.2 mg/dL (8.5-10.1) L 8.2 mg/dL (8.5-10.1) L Total Bilirubin 0.3 mg/dL (0.2-1.0) 0.3 mg/dL (0.2-1.0) Aspartate Amino Transferase (AST) 12 U/L (10-37) 13 U/L (10-37) Alanine Aminotransferase (ALT) < 6 U/L (12-78) L < 6 U/L (12-78) L Alkaline Phosphatase 79 U/L (50-136) 84 U/L (50-136) Total Protein 5.8 g/dL (6.0-8.3) L 6.1 g/dL (6.0-8.3) Albumin 2.1 g/dL (3.5-5.0) L 2.2 g/dL (3.5-5.0) L Home Medications: Active Scripts Rivaroxaban (Xarelto) 20 Mg Tablet, 1 TAB PO DAILY for 30 Days, #30 TAB 0 Refills with food Prov:OLAYINKA ARCE MD 03/11/25 Ferrous Sulfate (Ferrous Sulfate) 325 Mg (65 Mg Iron) Tablet, 1 TAB PO DAILY for 30 Days, #30 TAB 0 Refills Prov:OLAYINKA ARCE MD 03/11/25 Metoprolol Tartrate (Metoprolol Tartrate) 25 Mg Tablet, 1 TAB PO BID for 30 Days, #60 TAB 0 Refills Prov:OLAYINKA ARCE MD 03/11/25 Amlodipine Besylate (Norvasc) 10 Mg Tablet, 10 MG PO DAILY, #30 TAB Prov:OLAYINKA ARCE MD 03/11/25 Nystatin (Nystatin) 100,000 Unit/Ml Oral.susp, 5 ML PO QID for 20 Days, #200 ML 0 Refills Prov:ARMANDO OTT MD 02/01/25 Furosemide (Lasix 40Mg Tab) 40 Mg Tablet, 40 MG PO DAILY for 30 Days, #30 TAB Prov:ARMANDO OTT MD 01/31/25 Melatonin (Melatonin) 5 Mg Tablet, 10 MG PO HS PRN for INSOMNIA, #30 TAB Prov:ARMANDO OTT MD 01/31/25 Folic Acid (Folvite) 1 Mg Tab, 1 MG PO DAILY for 30 Days, #30 TAB Prov:ARMANDO OTT MD 01/31/25 Reported Medications Linezolid (Zyvox) 600 Mg Tablet, 600 MG PO BID for 30 Days, #60 TAB 03/11/25 Discontinued Scripts Linezolid (Zyvox) 600 Mg/300 Ml Ivsoln, 600 MG IV [id number] PRN for infection for 42 Days, #84 ML 0 Refills Prov:ARMANDO OTT MD 01/31/25 Time spent arranging discharge: 31-60 minutes OLAYINKA ARCE MD Mar 11, 2025 15:02
== END 2025-03-11 14:45 | disposition home or self-care (01) | DRG 853 ==
LOC: EDH 18:22 → EDHIP 18:23 → 2CH 02-24 09:42 → 4CH 02-25 20:30 → 2DH 02-28 15:01 → 2CV 03-02 13:00 → 2CH 03-03 06:01 → 2AH 03-06 15:09
PROVIDERS: ADMIT Internal Medicine; ATTEND Internal Medicine
PROC: 5A09357 Assistance with Respiratory Ventilation, Less than 24 Consecutive Hours, Continuous Positive Airway Pressure (ICD-10-PCS; 2025-02-23)
PROC: 5A09357 Assistance with Respiratory Ventilation, Less than 24 Consecutive Hours, Continuous Positive Airway Pressure (ICD-10-PCS; 2025-02-24)
PROC: 5A09357 Assistance with Respiratory Ventilation, Less than 24 Consecutive Hours, Continuous Positive Airway Pressure (ICD-10-PCS; 2025-02-25)
PROC: 4A023N7 Measurement of Cardiac Sampling and Pressure, Left Heart, Percutaneous Approach (ICD-10-PCS; 2025-03-01)
PROC: B2111ZZ Fluoroscopy of Multiple Coronary Arteries using Low Osmolar Contrast (ICD-10-PCS; 2025-03-01)
PROC: 30233K1 Transfusion of Nonautologous Frozen Plasma into Peripheral Vein, Percutaneous Approach (ICD-10-PCS; 2025-03-02)
PROC: 30233N1 Transfusion of Nonautologous Red Blood Cells into Peripheral Vein, Percutaneous Approach (ICD-10-PCS; 2025-03-02)
PROC: 30233R1 Transfusion of Nonautologous Platelets into Peripheral Vein, Percutaneous Approach (ICD-10-PCS; 2025-03-02)
PROC: 02RF08Z Replacement of Aortic Valve with Zooplastic Tissue, Open Approach (ICD-10-PCS; principal; 2025-03-02 13:57)
PROC: 5A1221Z Performance of Cardiac Output, Continuous (ICD-10-PCS; 2025-03-02 13:57)
DX: A41.9 Sepsis, unspecified organism (principal); I21.A1 Myocardial infarction type 2; I50.33 Acute on chronic diastolic (congestive) heart failure; J96.01 Acute respiratory failure with hypoxia; J15.9 Unspecified bacterial pneumonia; N30.00 Acute cystitis without hematuria; N17.9 Acute kidney failure, unspecified; I13.0 Hypertensive heart and chronic kidney disease with heart failure and stage 1 through stage 4 chronic kidney disease, or unspecified chronic kidney disease; E87.4 Mixed disorder of acid-base balance; E87.1 Hypo-osmolality and hyponatremia; B37.81 Candidal esophagitis; D62 Acute posthemorrhagic anemia; D68.9 Coagulation defect, unspecified; D69.3 Immune thrombocytopenic purpura; I35.8 Other nonrheumatic aortic valve disorders; B96.20 Unspecified Escherichia coli [E. coli] as the cause of diseases classified elsewhere; I35.1 Nonrheumatic aortic (valve) insufficiency; N18.32 Chronic kidney disease, stage 3b; K80.20 Calculus of gallbladder without cholecystitis without obstruction; E78.5 Hyperlipidemia, unspecified; E87.6 Hypokalemia; E11.22 Type 2 diabetes mellitus with diabetic chronic kidney disease; E11.65 Type 2 diabetes mellitus with hyperglycemia; B96.89 Other specified bacterial agents as the cause of diseases classified elsewhere; D75.839 Thrombocytosis, unspecified; E66.01 Morbid (severe) obesity due to excess calories; E78.00 Pure hypercholesterolemia, unspecified; F17.210 Nicotine dependence, cigarettes, uncomplicated; I25.10 Atherosclerotic heart disease of native coronary artery without angina pectoris; K74.60 Unspecified cirrhosis of liver; R65.20 Severe sepsis without septic shock; K76.0 Fatty (change of) liver, not elsewhere classified; Z79.01 Long term (current) use of anticoagulants; Z79.82 Long term (current) use of aspirin; I25.2 Old myocardial infarction; Z79.899 Other long term (current) drug therapy; Z86.2 Personal history of diseases of the blood and blood-forming organs and certain disorders involving the immune mechanism; Z91.199 Patient's noncompliance with other medical treatment and regimen due to unspecified reason; Z95.5 Presence of coronary angioplasty implant and graft
CPT/HCPCS: 36415; 36430; 36600; 71045; 71250; 76770; 80048; 80053; 80061; 80076; 80305; 81001; 82306; 82330; 82435; 82550; 82570; 82607; 82803; 82947; 82948; 83036; 83521; 83540; 83550; 83605; 83735; 83880; 84100; 84132; 84145; 84295; 84300; 84484; 84540; 85014; 85018; 85025; 85027; 85347; 85384; 85610; 85730; 86022; 86334; 86850; 86900; 86901; 86923; 86927; 87040; 87071; 87086; 87186; 87205; 87449; 87635; 87641; 87804; 88305; 93005; 93308; 93312; 93325; 93356; 93454; 93971; 94002; 94003; 94150; 94640; 94660; 94664; 94667; 94668; 99156; 99157; A4450; A7048; C1729; C1757; C1769; C1894; G0378; J0171; J0282; J0612; J0690; J1644; J1652; J1815; J1940; J2003; J2020; J2150; J2250; J2270; J2371; J2405; J2470; J2543; J2550; J2597; J2704; J2720; J2997; J3010; J3475; J3480; J3490; J7030; J7040; J7189; P9012; P9016; P9017; P9034; P9045; P9047; Q9967; A4222; A4223; A4351; A4649; A4930; A5120; A6204; C1713; C1760; C1781; C1887; C9159; J3370; Q9965